=== PATIENT | female | born 1940 | race Caucasian/White ===

== ENCOUNTER 2023-05-23 08:48 | Outpatient (OUT) | payer MEDICARE, SELFPAY ==
[2023-05-23 09:20] LABS: Basophils Percent Auto 0.8 % (0.2-2.0); Eosinophils Absolute Auto 0.1 10^3/uL (0.0-0.7); Eosinophils Percent Auto 2.2 % (0.9-7.0); Hemoglobin 11.7 g/dL (12.0-16.0); Immature Granulocytes Abs Auto 0.02 10^3/uL (0.00-0.03); Immature Granulocytes Pct Auto 0.4 % (0.0-0.5); Lymphocytes Absolute Auto 1.6 10^3/uL (1.2-3.8); Lymphocytes Percent Auto 32.1 % (20.5-60.0); Mean Corpuscular HGB Conc 32.5 g/dL (29.9-35.2); Mean Corpuscular Hemoglobin 29.3 pg (26.7-34.0); Mean Corpuscular Volume 90.2 fL (81.0-99.0); Mean Platelet Volume 7.8 fL (9.5-13.5); Monocytes Absolute Auto 0.5 10^3/uL (0.3-0.8); Monocytes Percent Auto 9.8 % (1.7-12.0); Neutrophils Absolute Auto 2.8 10^3/uL (1.4-6.5); Neutrophils Percent Auto 54.7 % (43.0-75.0); Platelet Count 177 10^3/uL (150-450); Red Blood Count 3.99 10^6/uL (4.20-5.40)
[2023-05-23 09:43] LABS: Estimated Average Glucose 120 mg/dL; Glycohemoglobin A1C 5.8 % (4.5-6.2)
[2023-05-23 10:12] LABS: Alanine Aminotransferase 35 U/L (14-59); Albumin Globulin Ratio 1.1; Albumin Level 3.6 g/dL (3.4-5.0); Alkaline Phosphatase 91 U/L (46-116); Anion Gap 11.8; Aspartate Amino Transferase 25 U/L (15-37); BUN Creatinine Ratio 21.5; Bilirubin Total 0.8 mg/dL (0.2-1.0); Calcium 9.5 mg/dL (8.5-10.1); Carbon Dioxide 27.8 mmol/L (21.0-32.0); Chloride 106 mmol/L (98-107); Chol HDL Ratio 4.1; Cholesterol 202 mg/dL (<=200); Estimated GFR (African America >60 (>=60); Estimated GFR (Non-African Ame 57 (>=60); Free T3 2.74 pg/mL (2.18-3.98); Globulin 3.2 g/dL; Glucose 111 mg/dL (74-106); HDL Cholesterol 49 mg/dL (40-60); Potassium 4.6 mmol/L (3.5-5.1); Sodium 141 mmol/L (136-145); Total Protein 6.8 g/dL (6.4-8.2); Triglycerides 148 mg/dL (<=150); VLDL CHOLESTEROL 29.6 mg/dL
[2023-05-23 13:05] LABS: Free T4 1.06 ng/dL (0.76-1.46)
== END 2023-05-23 08:49 | disposition home or self-care (01) ==
LOC: LAB 08:48
PROVIDERS: PCP Family Medicine; Visit Provider Family Medicine
DX: Z00.00 Encounter for general adult medical examination without abnormal findings (principal); E78.00 Pure hypercholesterolemia, unspecified; R53.83 Other fatigue; Z79.899 Other long term (current) drug therapy
CPT/HCPCS: 36415; 80053; 80061; 83036; 84439; 84443; 84481; 85025

== ENCOUNTER 2023-06-14 10:48 | Outpatient (OUT) | payer MEDICARE, SELFPAY ==
--- NOTE | 2023-06-14 11:31 | P.CN_ITS ---
Consult Note: HPI Data of Consult Patient: known to practice within the last 3 years Requesting Physician: HORTENCIA NOVAK NP Primary Care Provider: Bakari Otto MD Consult Narrative Narrative: Alicia Bullock a pleasant 83 year old female presents for follow up on chronic low back pain. Patient has an extensive history of lumbar injections/ablations and most recent RFAs in 04/26 did not provide substantial pain relief. Patient has been on tramadol 50m qd PRN for pain, baclofen 10mg HS PRN for muscle spasms, and mobic 15mg QD. Patient reporting 04/14 back pain today, as well as arthritis pain in hands. Patient reports moderate pain day to day. cc:: CC: HORTENCIA NOVAK NP Review of Systems ROS Status of ROS 10 or more systems reviewed and unremarkable except as noted in history and below Exam Constitutional Documenting provider has reviewed patient's vital signs: yes Common normals: no apparent distress, average body habitus, oriented x3, healthy appearing, alert and well nourished General appearance: cooperative HENMT Common normals: normocephalic Head and scalp: normocephalic Face and sinus: normal facial exam Mouth: oral and palatal mucosa normal Eye Common normals: PERRL Pupil: PERRL Neck & C-Spine Common normals: full ROM General: normal visual inspection Cervical spine: cervical ROM normal Chest Common normals: inspection of chest normal Respiratory Common normals: normal respiratory effort, no retractions and no use of accessory muscles Back & Pelvis Common normals: thoracic and lumbar spine normal to inspection Thoracic spine/upper back: ROM limited and pain with ROM Lumbar spine/lower back: ROM limited, pain with ROM, paraspinal muscle tenderness and straight leg raise negative bilaterally Pelvis: other (no pain over PSIS or tenderness to palpation) Extremity Common normals: full ROM General: edema (non pitting BLE) Neuro Common normals: oriented x3, CN's II-XII intact bilaterally, moves all extremities, no focal motor deficits, no sensory deficits noted, deep tendon reflexes 2+ bilaterally and gait normal Sensorium/orientation: alert Motor exam: strength 5/5 throughout and no movement abnormalities noted Psych Common normals: mental status grossly normal, thought process normal, cooperative, affect normal, speech normal and activity/motor behavior normal Appearance: grossly normal Speech: normal speech Thought process: normal thought process Thought content: normal thought content Assessment and Plan Assessment and Plan (1) Lumbar spondylosis: (2) FPC (current) use of opiate analgesic: Assessment and Plan: I have refilled the patient's opioid prescriptions.? I feel these medications are improving the patient's quality of life and allow them to tolerate activities of daily living as well as participate in recreational activity.? The patient does not report intolerable side effects. The patient is NOT opioid naive and non-pharmacologic and non-opioid treatment has failed to significantly relieve the patient's pain and improve functionality. The patient has a diagnosis that is related to a somatic or visceral pain etiology. ? ?? I reviewed with the patient the potential risks and side effects with the use of? opioid medications including but not limited to respiratory depression,? sedation, and even . I verified the patient has access to naloxone should? these effects occur. I advised the patient to avoid the use of any other? sedation substances including alcohol, THC, and benzodiazepines while? taking opioid medications due to the risk of compounding side effects and? detrimental outcomes. I reviewed the [employer] QC, pain treatment agreement, urine? drug screen, and opioid start talking forms. The patient was advised to let? their family know they had Naloxone in case they would need to administer? the medication.? ?? A drug screen was completed within the last year, and no aberrancies were noted regarding their use of controlled substances. The patient understands they are subject to the terms and conditions of the pain contract that they have signed. ? ?? I have checked an OARRS report on this patient today and there are no aberrancies noted in the prescribing history.? (3) Muscle spasm: (4) Osteoarthritis: Plan start duloxetine 30mg qd stop restiril continue tramadol 50mg qd prn pain continue baclofen 10mg HS PRN spasms f/u in one month to discuss duloxetine dose/effects
== END 2023-06-14 10:49 | disposition home or self-care (01) ==
LOC: PM 10:48
PROVIDERS: PCP Family Medicine; Visit Provider Nurse Practitioner
DX: M47.816 Spondylosis without myelopathy or radiculopathy, lumbar region (principal); Z79.891 Long term (current) use of opiate analgesic
CPT/HCPCS: G0463

== ENCOUNTER 2023-07-12 10:07 | Outpatient (OUT) | payer MEDICARE, SELFPAY ==
--- NOTE | 2023-07-12 10:33 | PM.CN ---
Consult Note: HPI Data of Consult Patient: known to practice within the last 3 years Requesting Physician: Ivanna Louise NP Primary Care Provider: Bakari Otto MD Consult Narrative Reason for consult: f/u Narrative: Alicia Bullock a pleasant 83 year old female presents for evaluation and management of chronic OA and middle to low back pain with spasms. Patient has had RFAs before without relief. Today rating pain 6/10. Patient started duloxetine 30mg and stopped taking after four days due to fatigue and fogginess. cc:: CC: Ivanna Louise NP Review of Systems ROS Status of ROS 10 or more systems reviewed and unremarkable except as noted in history and below Musculoskeletal Reports: back pain Meds Home Medications and Allergies Home Medications Medication Instructions Recorded Confirmed Type alendronate 70 mg tablet (Fosamax) 70 mg PO QWEEK 06/14/23 06/14/23 History amlodipine 10 mg tablet 10 mg PO DAILY 06/14/23 06/14/23 History aspirin 81 mg capsule 81 mg PO DAILY 06/14/23 06/14/23 History baclofen 10 mg tablet 10 mg PO .QHS 06/14/23 06/14/23 History calcium 167 mg-vitamin D3 1.67 cap PO .QD 06/14/23 History mcg-magnesium 83 mg capsule duloxetine 30 mg capsule,delayed 30 mg PO DAILY 06/14/23 06/14/23 History release (Cymbalta) glucosamine ER 500 mg-chondroitin 1 tab PO DAILY 06/14/23 06/14/23 History 200 mg tablet,extended release levothyroxine 50 mcg tablet 50 mcg PO DAILY 06/14/23 06/14/23 History (Euthyrox) lisinopril 20 mg tablet 20 mg PO DAILY 06/14/23 06/14/23 History metoprolol tartrate 50 mg tablet 50 mg PO DAILY 06/14/23 06/14/23 History (Lopressor) omeprazole 20 mg tablet,delayed 20 mg PO BID 06/14/23 06/14/23 History release tramadol 50 mg tablet 50 mg PO DAILY PRN pain 06/14/23 06/14/23 History Exam Constitutional Documenting provider has reviewed patient's vital signs: yes Common normals: no apparent distress, oriented x3, healthy appearing, alert and well nourished General appearance: cooperative HENMT Common normals: normocephalic, hearing grossly normal bilaterally and moist oral mucous membranes Head and scalp: normocephalic Face and sinus: normal facial exam Mouth: oral and palatal mucosa normal Eye Common normals: PERRL Pupil: PERRL Neck & C-Spine Common normals: full ROM General: normal visual inspection Cervical spine: cervical ROM normal Chest Common normals: inspection of chest normal Respiratory Common normals: normal respiratory effort, no retractions and no use of accessory muscles Back & Pelvis Common normals: thoracic and lumbar spine normal to inspection Thoracic spine/upper back: ROM limited and pain with ROM Lumbar spine/lower back: ROM limited, pain with ROM, paraspinal muscle tenderness and straight leg raise negative bilaterally Pelvis: other (no pain over PSIS or tenderness to palpation) Extremity Common normals: normal to inspection and full ROM General: edema (non pitting BLE) Neuro Common normals: oriented x3, CN's II-XII intact bilaterally, moves all extremities, no focal motor deficits, no sensory deficits noted, deep tendon reflexes 2+ bilaterally and gait normal Sensorium/orientation: alert Motor exam: strength 5/5 throughout and no movement abnormalities noted Psych Common normals: mental status grossly normal, thought process normal, cooperative, affect normal, speech normal and activity/motor behavior normal Appearance: grossly normal Speech: normal speech Thought process: normal thought process Thought content: normal thought content Results Additional Findings Additional findings: I have checked an OARRS report on this patient today and there are no aberrancies noted in the prescribing history.?? A drug screen was completed and reviewed within the last year, and if there has not been a drug screen completed we ordered one today to monitor higher risk, state monitored pain medication use. As part of providing excellent, safe, comprehensive care, the following was completed at our patient's visit: 1. A medication reconciliation and review to ensure accurate knowledge of current/active medications, including asking our patients to inform us about any [id number] medications or herbal remedies/nutritional supplements/alternative remedies. 2. A review to specifically ensure our patients have had annual screening for: elevated body mass index (BMI), tobacco use, screening for depression, and screening for unhealthy alcohol use. When screening is concerning, patients are provided with education and the specific recommendation to discuss the concerning health issue and treatment options with their primary care provider. 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 I feel these medications are improving the patient's quality of life and allow them to tolerate activities of daily living as well as participate in recreational activity.? The patient does not report intolerable side effects. The patient is NOT opioid naive and non-pharmacologic and non-opioid treatment has failed to significantly relieve the patient's pain and improve functionality. The patient has a diagnosis that is related to a somatic or visceral pain etiology. ? ?? I reviewed with the patient the potential risks and side effects with the use of? opioid medications including but not limited to respiratory depression,? sedation, and even . I verified the patient has access to naloxone should? these effects occur. I advised the patient to avoid the use of any other? sedation substances including alcohol, THC, and benzodiazepines while? taking opioid medications due to the risk of compounding side effects and? detrimental outcomes. I reviewed the [employer], pain treatment agreement, urine? drug screen, and opioid start talking forms. The patient was advised to let? their family know they had Naloxone in case they would need to administer? the medication.? ?? A drug screen was completed within the last year, and no aberrancies were noted regarding their use of controlled substances. The patient understands they are subject to the terms and conditions of the pain contract that they have signed. ? ?? I have checked an OARRS report on this patient today and there are no aberrancies noted in the prescribing history.? (4) Muscle spasm: Plan restart duloxetine 30mg HS, patient was taking in AM for four days and quit restart mobic 15mg qday, was previously taking and tolerating well, can take PRN when pain is better controlled continue tramadol 50mg qd prn moderate-severe pain continue baclofen 10mg HS PRN spasms f/u in one month to discuss duloxetine dose/effects
== END 2023-07-12 10:08 | disposition home or self-care (01) ==
LOC: PM 10:07
PROVIDERS: PCP Family Medicine; Visit Provider Nurse Practitioner
DX: M47.816 Spondylosis without myelopathy or radiculopathy, lumbar region (principal); M19.90 Unspecified osteoarthritis, unspecified site; Z79.891 Long term (current) use of opiate analgesic
CPT/HCPCS: G0463

== ENCOUNTER 2023-07-20 09:06 | Outpatient (OUT) | payer MEDICARE, SELFPAY ==
[2023-07-20 09:22] LABS: Bilirubin Urine NEGATIVE (NEGATIVE); Blood Urine NEGATIVE (NEGATIVE); Clarity Urine CLEAR (CLEAR); Color Urine LT. YELLOW (YELLOW); Glucose Urine UA NEGATIVE (NEGATIVE); Ketones Urine NEGATIVE (NEGATIVE); Leukocyte Esterase Urine SMALL (NEGATIVE); Nitrite Urine NEGATIVE (NEGATIVE); Protein Urine NEGATIVE (NEG/TRACE); Urobilinogen Urine 0.2 EU/dL (0.2-1.0)
[2023-07-20 12:00] LABS: Bacteria Urine NONE SEEN #/HPF (NONE SEEN); Mucus Urine NONE SEEN (NONE SEEN); RBC Urine NONE SEEN #/HPF (0-2)
[2023-07-20 12:01] LABS: Cast Seen? NONE SEEN #/LPF (NONE SEEN); Crystals Seen? None Seen #/HPF (None Seen); Squamous Epithelial Cell Urine RARE #/LPF (NONE/RARE); Urine Culture Indicated YES
== END 2023-07-20 09:07 | disposition home or self-care (01) ==
LOC: LAB 09:06
PROVIDERS: PCP Family Medicine; Visit Provider Family Medicine
DX: N39.0 Urinary tract infection, site not specified (principal)
CPT/HCPCS: 81001; 87086

== ENCOUNTER 2023-08-23 12:42 | Outpatient (OUT) | payer MEDICARE, SELFPAY ==
--- NOTE | 2023-08-23 12:46 | P.CN_ITS ---
Consult Note: HPI Data of Consult Patient: known to practice within the last 3 years Requesting Physician: Ivanna Louise NP Primary Care Provider: Bakari Otto MD Consult Narrative Reason for consult: f/u Narrative: Alicia Bullock a pleasant 83 year old female presents for evaluation and management of chronic pain. Patient rating pain 0/10 since last appointment, has noticed very mild pain 1-2 since restarting duloxetine 30mg HS. She has not needed mobic, baclofen, or tramdol. cc:: CC: Ivanna Louise NP Review of Systems ROS Status of ROS 10 or more systems reviewed and unremarkable except as noted in history and below Meds Home Medications and Allergies Home Medications Medication Instructions Recorded Confirmed Type alendronate 70 mg tablet (Fosamax) 70 mg PO QWEEK 06/14/23 06/14/23 History amlodipine 10 mg tablet 10 mg PO DAILY 06/14/23 06/14/23 History aspirin 81 mg capsule 81 mg PO DAILY 06/14/23 06/14/23 History baclofen 10 mg tablet 10 mg PO .QHS 06/14/23 06/14/23 History calcium 167 mg-vitamin D3 1.67 cap PO .QD 06/14/23 History mcg-magnesium 83 mg capsule duloxetine 30 mg capsule,delayed 30 mg PO DAILY 06/14/23 06/14/23 History release (Cymbalta) glucosamine ER 500 mg-chondroitin 1 tab PO DAILY 06/14/23 06/14/23 History 200 mg tablet,extended release levothyroxine 50 mcg tablet 50 mcg PO DAILY 06/14/23 06/14/23 History (Euthyrox) lisinopril 20 mg tablet 20 mg PO DAILY 06/14/23 06/14/23 History metoprolol tartrate 50 mg tablet 50 mg PO DAILY 06/14/23 06/14/23 History (Lopressor) omeprazole 20 mg tablet,delayed 20 mg PO BID 06/14/23 06/14/23 History release tramadol 50 mg tablet 50 mg PO DAILY PRN pain 06/14/23 06/14/23 History Exam Constitutional Documenting provider has reviewed patient's vital signs: yes Common normals: no apparent distress, oriented x3, healthy appearing, alert and well nourished General appearance: cooperative HENMT Common normals: normocephalic, hearing grossly normal bilaterally and moist oral mucous membranes Head and scalp: normocephalic Face and sinus: normal facial exam Mouth: oral and palatal mucosa normal Eye Common normals: PERRL Pupil: PERRL Neck & C-Spine Common normals: full ROM General: normal visual inspection Cervical spine: cervical ROM normal Chest Common normals: inspection of chest normal Respiratory Common normals: normal respiratory effort, no retractions and no use of accessory muscles Back & Pelvis Common normals: thoracic and lumbar spine normal to inspection Thoracic spine/upper back: ROM limited Lumbar spine/lower back: ROM limited, paraspinal muscle tenderness and straight leg raise negative bilaterally Pelvis: other (no pain over PSIS or tenderness to palpation) Extremity Common normals: normal to inspection and full ROM General: edema (non pitting BLE) Neuro Common normals: oriented x3, CN's II-XII intact bilaterally, moves all extremities, no focal motor deficits, no sensory deficits noted and deep tendon reflexes 2+ bilaterally Sensorium/orientation: alert Motor exam: strength 5/5 throughout and no movement abnormalities noted Psych Common normals: mental status grossly normal, thought process normal, cooperative, affect normal, speech normal and activity/motor behavior normal Appearance: grossly normal Speech: normal speech Thought process: normal thought process Thought content: normal thought content Results Additional Findings Additional findings: I have checked an OARRS report on this patient today and there are no aberrancies noted in the prescribing history.?? A drug screen was completed and reviewed within the last year, and if there has not been a drug screen completed we ordered one today to monitor higher risk, state monitored pain medication use. As part of providing excellent, safe, comprehensive care, the following was completed at our patient's visit: 1. A medication reconciliation and review to ensure accurate knowledge of current/active medications, including asking our patients to inform us about any [id number] medications or herbal remedies/nutritional supplements/alternative remedies. 2. A review to specifically ensure our patients have had annual screening for: elevated body mass index (BMI), tobacco use, screening for depression, and scr eening for unhealthy alcohol use. When screening is concerning, patients are provided with education and the specific recommendation to discuss the concerning health issue and treatment options with their primary care provider. 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
== END 2023-08-23 12:43 | disposition home or self-care (01) ==
LOC: PM 12:42
PROVIDERS: PCP Family Medicine; Visit Provider Nurse Practitioner
DX: M47.896 Other spondylosis, lumbar region (principal); Z79.891 Long term (current) use of opiate analgesic; M19.90 Unspecified osteoarthritis, unspecified site; R25.2 Cramp and spasm
CPT/HCPCS: G0463

== ENCOUNTER 2023-09-29 08:52 | Outpatient (OUT) | payer MEDICARE, SELFPAY ==
--- NOTE | 2023-09-29 | XR_ITS ---
The [address] [address] Patient Name: CLAIRE NGUYỄN MRN: [id number] date: 1940 Sex: F Assigned Patient Location: [facility] Current Patient Location: Accession/Order Number: [id number] Exam Date: 09/29/2023 09:00 Report Date: 10/01/2023 08:58 At the request of: SANTIAGO WARREN Procedure: XR knee RT 3V PROCEDURE: XR knee RT 3V HISTORY: Bursitis M71.9 ; acute right knee pain; no known injury COMPARISON: None. FINDINGS: BONES:Marked narrowing of the anterior joint space with suspected bone remodeling of the patella. Mild narrowing of the lateral joint space. Tricompartmental small periarticular degenerative osteophytes. SOFT TISSUES:Calcifications superior lateral and superior medial to the patella, heterotopic bone formation versus loose bodies. EFFUSION:None visible. OTHER: Negative. XR/XR knee RT 3V IMPRESSION: 1. Marked degenerative joint disease. 2. No acute bone abnormality. Electronically authenticated by: RIGO WHITTAKER Date: 10/01/2023 08:58
== END 2023-09-29 08:53 | disposition home or self-care (01) ==
PROVIDERS: PCP Family Medicine; Visit Provider Family Medicine
DX: M71.9 Bursopathy, unspecified (principal); M17.11 Unilateral primary osteoarthritis, right knee
CPT/HCPCS: 73562

== ENCOUNTER 2023-10-08 09:19 | Outpatient (OUT) | payer MEDICARE, SELFPAY ==
--- NOTE | 2023-10-08 09:23 | MR_ITS ---
[address] [address] Patient Name: CLAIRE NGUYỄN MRN: [id number] date: 1940 Sex: F Assigned Patient Location: MRI Current Patient Location: MRI Accession/Order Number: [id number] Exam Date: 10/08/2023 09:53 Report Date: 10/08/2023 12:03 At the request of: JAMAL CHRISTIAN Procedure: MR knee RT wo con EXAMINATION: MR knee RT wo con HISTORY: Internal Derangement Of Knee M23.91 COMPARISON: XR knee right 09/29/2023 TECHNIQUE: A complete multi-planar MRI was performed. FINDINGS: MEDIAL COMPARTMENT MEDIAL MENISCUS: Intrasubstance degeneration, and possible vertical tear within body and posterior junction seen on the coronal view. CARTILAGE: Mild cartilage thinning. BONES: Small periarticular degenerative osteophytes. No fracture or subchondral cysts. MCL AND MEDIAL CAPSULE: Grade I sprain of the medial collateral ligament. LATERAL COMPARTMENT LATERAL MENISCUS: Undersurface tear involving posterior horn, and suspected horizontal tear within body and posterior junction. CARTILAGE: Moderate thinning; no appreciable defect. BONES: Periarticular degenerative osteophytes. No fracture or subchondral cysts. LCL/POSTEROLAT COMPLEX: Normal lateral collateral ligament, fascicles, lateral capsule and ligaments. ANTERIOR COMPARTMENT PATELLA: Periarticular degenerative osteitis. No fracture or subchondral edema. CARTILAGE: Moderate or greater thinning. No appreciable focal defect or subchondral cyst. TENDONS: Normal. EFFUSION: Moderate joint effusion with a 17 x 14 x 10 mm slightly oval-shaped mass within posterior lateral aspect of the joint capsule cephalad to the lateral femoral condyle which remains low in signal on T1 and T2 sequences. ACL: Normal appearing ligament. PCL: Normal appearing ligament. MENISCOFEMORAL: Normal meniscofemoral ligaments. OTHER: Negative. MR/MR knee RT wo con IMPRESSION: 1. Evaluation is limited by significant patient motion artifact. 2. Medial meniscus intrasubstance degeneration and suspected small vertical tear within the body and posterior junction. 2. Lateral meniscus undersurface tear involving posterior horn and suspected horizontal tear within body and posterior junction. 3. Mild articular cartilage thinning throughout, with moderate or greater thinning involving the anterior compartment. 4. Mild strain of the medial collateral ligament. 5. Large loose body within the superior-lateral aspect of the joint capsule without appreciable donor site. Electronically authenticated by: RIGO WHITTAKER Date: 10/08/2023 12:03
== END 2023-10-08 09:20 | disposition home or self-care (01) ==
LOC: MRI 09:19
PROVIDERS: PCP Family Medicine; Visit Provider Personal Emergency Response Attendant
DX: M23.91 Unspecified internal derangement of right knee (principal); S83.241A Other tear of medial meniscus, current injury, right knee, initial encounter; S83.281A Other tear of lateral meniscus, current injury, right knee, initial encounter
CPT/HCPCS: 73721

== ENCOUNTER 2023-10-09 11:02 | Outpatient (OUT) | payer MEDICARE, SELFPAY ==
[2023-10-09 11:29] LABS: Basophils Percent Auto 0.2 % (0.2-2.0); Eosinophils Percent Auto 0.1 % (0.9-7.0); Hematocrit 34.1 % (36.0-48.0); Hemoglobin 11.1 g/dL (12.0-16.0); Immature Granulocytes Pct Auto 1.5 % (0.0-0.5); Lymphocytes Absolute Auto 1.1 10^3/uL (1.2-3.8); Lymphocytes Percent Auto 8.2 % (20.5-60.0); Mean Corpuscular HGB Conc 32.6 g/dL (29.9-35.2); Mean Corpuscular Hemoglobin 29.6 pg (26.7-34.0); Mean Corpuscular Volume 90.9 fL (81.0-99.0); Monocytes Absolute Auto 1.1 10^3/uL (0.3-0.8); Monocytes Percent Auto 7.9 % (1.7-12.0); Neutrophils Absolute Auto 10.9 10^3/uL (1.4-6.5); Neutrophils Percent Auto 82.1 % (43.0-75.0); Platelet Count 406 10^3/uL (150-450); Red Blood Count 3.75 10^6/uL (4.20-5.40); Red Cell Distribution Width 14.7 % (11.0-15.0); White Blood Count 13.3 10^3/uL (4.0-11.0)
[2023-10-09 11:52] LABS: Erythrocyte Sedimentation Rate 62 mm/hr (<=30)
[2023-10-09 12:09] LABS: C Reactive Protein 5.13 mg/dL (<=0.30)
== END 2023-10-09 11:03 | disposition home or self-care (01) ==
LOC: LAB 11:07
PROVIDERS: PCP Family Medicine; Visit Provider Personal Emergency Response Attendant
DX: M25.561 Pain in right knee (principal)
CPT/HCPCS: 36415; 85025; 85652; 86140

== ENCOUNTER 2023-11-07 18:51 | Outpatient (REF) | payer MEDICARE, SELFPAY ==
[2023-11-07 19:01] LABS: Erythrocyte Sedimentation Rate 40 mm/hr (<=30)
== END 2023-11-07 18:52 | disposition home or self-care (01) ==
LOC: LAB 18:51
PROVIDERS: PCP Family Medicine; Visit Provider Family Medicine
DX: M00.861 Arthritis due to other bacteria, right knee (principal); B95.4 Other streptococcus as the cause of diseases classified elsewhere; B96.89 Other specified bacterial agents as the cause of diseases classified elsewhere; Z16.35 Resistance to multiple antimicrobial drugs; Z47.89 Encounter for other orthopedic aftercare; R78.81 Bacteremia; M25.421 Effusion, right elbow; M25.521 Pain in right elbow
CPT/HCPCS: 36415; 85652; 87040

== ENCOUNTER 2023-11-18 17:31 | Emergency (ER) | payer MEDICARE, SELFPAY ==
[2023-11-18] VITALS (17 sets, daily range): BP systolic 115–153; BP diastolic 61–86; PULSE 87–112; RESP 13–28; TEMP 36.8; O2SAT 90–98; BMI 21.8
--- OUTSIDE RECORDS SUMMARY | 2023-11-18 17:39 | XMS_ITS | CCD ---
Author Name Unknown Address [address] [facility] [address] [place] [address] Organization [facility] Care Team Providers Care Bakery Supervisor Name Role Phone Santiago Otto Primary Care Physician Arie BERGERON Attending Unavailable Santiago Oconnor Referring UnavailArie Duarte Attending Unavailable Arie BERGERON Attending Unavailable Arie BERGERON Attending Unavailable Rachana Kent Unavailable MD Santiago Otto Primary Care Provider [phone] MD Santiago Otto Attending Provider Santiago Otto Attending Unavailable Santiago Otto Primary Care Unavailable Santiago Otto Admitting Unavailable LUIZAY ., DR HENDERSON Primary Care Unavailable HOY ., DR HENDERSON Attending Unavailable HOY ., DR HENDERSON Admitting Unavailable HOY ., DR HENDERSON Consulting Unavailable LEMHI, DR SHERYL Navarrete Consulting Unavailable ARROYO ., STARR Consulting Unavailable GARCIA ., DR IVANIA Ledezma Attending Unavailable HOY ., DR HENDERSON Primary Care Unavailable GARCIA ., DR IVANIA Ledezma Admitting Unavailable ARROYO ., STARR Consulting Unavailable GARCIA ., DR IVANIA Ledezma Admitting Unavailable GARCIA ., DR IVANIA Ledezma Attending Unavailable HOY ., DR HENDERSON Primary Care Unavailable HOY ., DR HENDERSON Consulting Unavailable HOY ., DR HENDERSON Admalina Unavailable HOY ., DR HENDERSON Attending Unavailable HOY ., DR HENDERSON Primary Care Unavailable LEMHI, DR SHERYL Navarrete Consulting Unavailable HOY ., DR HENDERSON Primary Care Unavailable HOY ., DR HENDERSON Attending Unavailable HOY ., DR HENDERSON Admitting Unavailable HOY ., DR HENDERSON Consulting Unavailable HALKER .HORTENCIA Admitting Unavailable HALKER .HORTENCIA Attending Unavailable HOY ., DR HENDERSON Primary Care Unavailable HALKER ., HORTENCIA Consulting Unavailable HALKER ., HORTENCIA Attending Unavailable HOY ., DR HENDERSON Primary Care Unavailable HALKER ., HORTENCIA Admitting Unavailable HOY ., DR HENDERSON Primary Care Unavailable SANTOSFARIDA TOURE Attending Unavailable SANTOSFARIDA TOURE Admitting Unavailable NILL ., DR SARGENT Admitting Unavailable NILL ., DR SARGENT Attending Unavailable HOY ., DR HENDERSON Primary Care Unavailable HOY ., DR HENDERSON Primary Care Unavailable HOY ., DR HENDERSON Admitting Unavailable HOY ., DR HENDERSON Attending Unavailable HOY ., DR HENDERSON Consulting Unavailable HOY ., DR HENDERSON Consulting Unavailable HOY ., DR HENDERSON Primary Care Unavailable HOY ., DR HENDERSON Attending Unavailable HOY ., DR HENDERSON Admitting Unavailable NEFCYBRAD Consulting Unavailable HOY ., DR HENDERSON Primary Care Unavailable HOY ., DR HENDERSON Admitting Unavailable HOY ., DR HENDERSON Attending Unavailable HOY ., DR HENDERSON Consulting Unavailable CHUCK TATUM Consulting Unavailable HOY ., DR HENDERSON Primary Care Unavailable HOY ., DR HENDERSON Attending Unavailable HOY ., DR HENDERSON Consulting Unavailable HOY ., DR HENDERSON Admitting Unavailable NILL ., DR SARGENT Attending Unavailable NILL ., DR SARGENT Consulting Unavailable HOY ., DR HENDERSON Primary Care Unavailable NILL ., DR SARGENT Admitting Unavailable HOY ., DR HENDERSON Primary Care Unavailable HOY ., DR HENDERSON Attending Unavailable HOY ., DR HENDERSON Consulting Unavailable HOY ., DR HENDERSON Admalina Unavailable HOY ., DR HENDERSON Primary Care Unavailable HOY ., DR HENDERSON Consulting Unavailable HOY ., DR HENDERSON Admalina Unavailable HOY ., DR HENDERSON Attending Unavailable ZIEBER, DR RIGO Love Consulting Unavailable HIGHLANDER, PETER D Admitting Unavailable HIGHLANDER, PETER Krystal Attending Unavailable HOY ., DR HENDERSON Primary Care Unavailable HIGHLANDER, PETER D Consulting Unavailable HOY ., DR HENDERSON Consulting Unavailable HOY ., DR HENDERSON Primary Care Unavailable HOY ., DR SANTIAGO Augustine Unavailable HOY ., DR HENDERSON Attending Unavailable ZIEBER, DR RIGO Love Consulting Unavailable BLADES, RACHANA Admitting Unavailable BLADES, RACHANA Attending Unavailable LEMHI, DR SHERYL Navarrete Consulting Unavailable HOY ., DR HENDERSON Primary Care Unavailable ZIEBER, DR RIGO Love Consulting Unavailable BLADES, RACHANA Consulting Unavailable GARCIA ., DR IVNAIA Ledezma Admitting Unavailable GARCIA ., DR IVANIA Ledezma Attending Unavailable GARCIA ., DR IVANIA Ledezma Consulting Unavailable HOY ., DR HENDERSON Primary Care Unavailable RAUL RICHARD Consulting Unavailable GARCIA, DR PARISI Consulting Unavailable ARROYO ., STARR Consulting Unavailable GARCIA ., DR IVANIA Ledezma Admitting Unavailable GARCIA ., DR IVANIA Ledezma Attending Unavailable HOY ., DR HENDERSON Primary Care Unavailable NILL ., DR SARGENT Admitting Unavailable NILL ., DR SARGENT Attending Unavailable NILL ., DR SARGENT Consulting Unavailable HOY ., DR HENDERSON Primary Care Unavailable LEONARDO ANNE Consulting Unavailable JOSELIN ABREU Consulting Unavailable JEFFERSON BROWN Admitting Unavailable HOY ., DR HENDERSON Primary Care Unavailable ELICEO, DR SY Love Consulting Unavailable JEFFERSON BROWN Attending Unavailable GARCIA ., DR IVANIA Ledezma Admitting Unavailable GARCIA ., DR IVANIA Ledezma Attending Unavailable HOY ., DR HENDERSON Primary Care Unavailable NILL ., DR SARGENT Attending Unavailable NILL ., DR SARGENT Admitting Unavailable HOY ., DR HENDERSON Primary Care Unavailable PRADIP LOPEZ Consulting Unavailable XAVIER ., MATTHEW BECKER Admitting Unavailable HOY ., DR HENDERSON Primary Care Unavailable XAVIER ., MATTHEW BECKER Attending Unavailable HOY ., DR HENDERSON Primary Care Unavailable HOY ., DR HENDERSON Attending Unavailable HOY ., DR HENDERSON Consulting Unavailable HOY ., DR HENDERSON Admitting Unavailable ARROYO ., STARR Admitting Unavailable ARROYO ., STARR Attending Unavailable HOY ., DR HENDERSON Primary Care Unavailable ARROYO ., STARR Consulting Unavailable Brando Garcia Admitting Unavailable Brando Garcia Attending Unavailable KELVIN, SANTIAGO Primary Care Unavailable Sheryl Dennis Consulting Unavailable JAMAL VIZCARRA Attending Unavailable JAMAL VIZCARRA Attending Unavailable JAMAL VIZCARRA Referring Unavailable JR. AGUILAR GEORGE C Attending Unavailyessica ble JAMAL VIZCARRA Attending Unavailable Allergies Allergy Classification Reported Allergen(s) Allergy Type Date of Onset Reaction(s) Facility (1 source) No Known Medication Allergies; Translations: [No Known Medication Allergies] Propensity to adverse reactions (disorder) [facility] Medications Current Medications Medication Drug Class(es) Dates Sig (Normalized) Sig (Original) alendronic acid 70 mg oral tablet (2 sources) Bisphosphonate Start: 06-08-2022 take 1 tablet by mouth every week Fosamax 70 mg oral tablet 70 mg = 1 tab(s), Oral, qWeek, Refills(s) 0 Start Date: 06/08/22 Status: Ordered amLODIPine 5 mg oral tablet (2 sources) Dihydropyridine Calcium Channel Betsy Start: 06-08-2022 take 2 tablets by mouth once daily amLODIPine 5 mg Tab 10 mg = 2 tab(s), Oral, Daily, Refills(s) 0 Start Date: 06/08/22 Status: Ordered amLODIPine Besyl ate 5 MG Oral for 90 Days Active aspirin 81 mg delayed release oral tablet (1 source) Platelet Aggregation Inhibitor, Nonsteroidal Anti-inflammatory Drug Start: 06-08-2022 take 1 tablet by mouth once daily aspirin 81 mg Oral EC Tab 81 mg = 1 tab(s), Oral, Daily, Refills(s) 0 Start Date: 06/08/22 Status: Ordered calcium carbonate 1500 mg oral tablet (1 source) Start: 06-08-2022 calcium (as carbonate) 600 mg oral tablet 1,200 mg = 2 tab(s), Oral, Daily, Refills(s) 0 Start Date: 06/08/22 Status: Ordered cetirizine hydrochloride 10 mg oral tablet (1 source) Histamine-1 Receptor Antagonist take 1 tablet by mouth once daily ZyrTEC 10 MG 1 tablet Orally Once a day Active Osteo Bi-Flex (1 source) Start: 06-08-2022 take 1 tablet by mouth once daily Osteo Bi-Flex 1 tab(s), Oral, Daily, Refill(s) 0 Start Date: 06/08/22 Status: Ordered cyclobenzaprine hydrochloride 10 mg oral tablet (1 source) Muscle Relaxant Start: 06-08-2022 take 1 tablet by mouth three times daily as needed for muscle spasms cyclobenzaprine 10 mg Tab 10 mg = 1 tab(s), Oral, TID, PRN for spasm, Refills(s) 0 Start Date: 06/08/22 Status: Ordered diazePAM 10 mg oral tablet (1 source) Benzodiazepine diazePAM 10 MG T JAJA 1 TABLET BY MOUTH SINGLE DOSE TAKE 60 MINUTES PRIOR TO PROCEDURE Oral for 1 Days Active diclofenac sodium 75 mg delayed release oral tablet (1 source) Nonsteroidal Anti-inflammatory Drug Start: 06-08-2022 take 1 tablet by mouth twice daily Diclofenac 75mg Tab-DR = 1 tab(s), Oral, BID, Refills(s) 0 Start Date: 06/08/22 Status: Ordered ferrous sulfate (1 source) take 1 tablet by mouth twice daily Ferrous Sulfate 325 (65 Fe) MG TAKE 1 TABLET BY MOUTH TWICE A DAY Oral for 30 Days Active levothyroxine sodium 0.05 mg oral tablet (2 sources) l-Thyroxine Start: 06-08-2022 take 1 tablet by mouth once daily levothyroxine 50 mcg (0.05 mg) Tab 50 mcg = 1 tab(s), Oral, Daily, Refills(s) 0 Start Date: 06/08/22 Status: Ordered liothyronine sodium 0.005 mg oral tablet (2 sources) l-Triiodothyronine Start: 06-08-2022 take 1 tablet by mouth once daily liothyronine 5 mcg Tab 5 mcg = 1 tab(s), Oral, Daily, Refills(s) 0 Start Date: 06/08/22 Status: Ordered lisinopril 20 mg oral tablet (2 sources) Angiotensin Converting Enzyme Inhibitor Start: 06-08-2022 take 2 tablets by mouth once daily lisinopril 20 mg Tab 40 mg = 2 tab(s), Oral, Daily, Refills(s) 0 Start Date: 06/08/22 Status: Ordered take 1 tablet by robert every twenty-four hours Lisinopril 20 MG 1 tablet Orally Once a day Active menthol 0.05 mg/mg medicated patch (1 source) apply 1 dose transdermal route three times daily as needed Icy Hot 5 % 1 patch as needed Externally Three times a day for 7 days Active Metoprolol (2 sources) beta-Adrenergic Betsy Start: Metoprolol tartrate 50 mg Tab as directed, Refills(s) 0 Start Date: 06/08/22 Status: Ordered Metoprolol Tartr ate 50 MG Oral for 90 Days Active nitroglycerin 0.4 mg sublingual tablet (1 source) Nitrate Vasodilator Start: 06-08-2022 nitroglycerin 0.4 mg sublingual Tab 0.4 mg = 1 tab(s), SubLingual, q5min, PRN for chest pain, Refills(s) 0 Start Date: 06/08/22 Status: Ordered omeprazole 20 mg delayed release oral capsule (2 sources) Proton Pump Inhibitor Start: 06-08-2022 take 1 capsule by mouth twice daily omeprazole 20 mg Cap-DR 20 mg = 1 cap(s), Oral, BID, Refills(s) 0 Start Date: 06/08/22 Status: Ordered petrolatum 0.41 mg/mg topical ointment (1 source) Aquaphor - as directed Externally 2x daily for 7 days Active potassium chloride 20 meq extended release oral tablet (1 source) Potassium Chlori de ER 20 MEQ Oral for 30 Days Active temazepam 15 mg oral capsule (2 sources) Benzodiazepine Start: 06-08-2022 take 1 capsule by mouth once daily at bedtime temazepam 15 mg Cap 15 mg = 1 cap(s), Oral, Once a day (at bedtime), Refills(s) 0 Start Date: 06/08/22 Status: Ordered Vitamin E 45 MG/0.25ML (1 source) Start: 10-09-2022 take 1 mL by mouth once daily Vitamin E 45 MG/0.25ML 1 mL Orally Once a day for 30 day(s) Oct, Active Completed/Discontinued Medications Medication Drug Class(es) Dates Sig (Normalized) Sig (Original) triamcinolone acetonide 1 mg/ml topical cream (1 source) Corticosteroid Start: 06-08-2022 triamcinolone Top 0.1% Crm 1 dano, Topical, BID, Refill(s) 0 Start Date: 06/08/22 Status: Ordered Problems Active Problems Problem Classification Problem Date Documented Da te Episodic/Chronic Cardiac dysrhythmias (1 source) Premature atrial contraction 06-08-2022 Chronic Conduction disorders (1 source) Ventricular bigeminy 06-08-2022 Chronic Deficiency and other anemia (1 source) Iron deficiency anemia 06-13-2022 Episodic Diabetes mellitus without complication (1 source) Type 2 diabetes mellitus without complications; Translations: [TYPE 2 DM WITHOUT COMPLICATIONS] Onset: 04-27-2022 Chronic Digestive congenital anomalies (1 source) Other specified congenital malformations of intestine; Translations: [OTH SPEC CONGEN MALFORM INTESTINE] Onset: 08-24-2022 Chronic Diverticulosis and diverticulitis (1 source) Diverticulosis of large intestine without perforation or abscess without bleeding; Translations: [DVRTCLOS LG INT NO PERF/ABSC W/O BL] Onset: 08-24-2022 Chronic Esophageal disorders (1 source) Gastro-esophageal reflux disease without esophagitis; Translations: [GERD WITHOUT ESOPHAGITIS] Onset: 05-01-2022 Chronic Essential hypertension (2 sources) Hypertensive disorder; Translations: [Essential (primary) hypertension] Onset: 05-01-2022 06-08-2022 Chronic Gastritis and duodenitis (1 source) Unspecified chronic gastritis without bleeding; Translations: [UNS CHRONIC GASTRITIS W/O BLEEDING] Onset: 08-24-2022 Chronic Osteoarthritis (1 source) Unspecified osteoarthritis, unspecified site; Translations: [UNSPECIFIED OSTEOARTHRITIS UNS SITE] Onset: 05-01-2022 Chronic Other acquired deformities (1 source) Scoliosis of lumbar spine 06-08-2022 Chronic Other bone disease and musculoskeletal deformities (1 source) Osteopenia 06-08-2022 Episodic Other circulatory disease (1 source) History of transient ischemic attack 06-08-2022 Episodic Other circulatory disease (1 source) Vascular insufficiency 06-08-2022 Episodic Other gastrointestinal disorders (1 source) Irritable bowel syndrome 06-08-2022 Chronic Other gastrointestinal disorders (1 source) Irritable bowel syndrome without diarrhea; Translations: [IRRITABLE BOWEL SYND W/O DIARRHEA] Onset: 05-01-2022 Chronic Other gastrointestinal disorders (1 source) Dark stools 06-13-2022 Episodic Other gastrointestinal disorders (1 source) History of gastritis 06-08-2022 Episodic Other gastrointestinal disorders (1 source) Occult blood in stools 06-13-2022 Episodic Other nervous system disorders (1 source) Chronic pain; Translations: [Other chronic pain] Chronic Other nervous system disorders (1 source) Other chronic pain; Translations: [OTHER CHRONIC PAIN] Onset: 04-27-2022 Chronic Other nutritional; endocrine; and metabolic disorders (1 source) Overweight in adulthood with body mass index of 25 or more but less than 30 06-13-2022 Episodic Residual codes; unclassified (1 source) Edema 06-08-2022 Episodic Residual codes; unclassified (1 source) Insomnia 06-08-2022 Episodic Spondylosis; intervertebral disc disorders; other back problems (11 sources) Spondylosis without myelopathy or radiculopathy, lumbar region; Translations: [Spondylosis without myelopathy or radiculopathy, thoracic region] Onset: 04-25-2022 Chronic Thyroid disorders (1 source) Hypothyroidism, unspecified; Translations: [HYPOTHYROIDISM UNSPECIFIED] Onset: 08-24-2022 Chronic Unclassified (3 sources) LOW BACK PAIN, UNSPECIFIED; Translations: [LOW BACK PAIN, UNSPECIFIED] Onset: 04-27-2022 Unclassified (1 source) OTHER SPECIFIED DISEASE ESOPHAGUS; Translations: [OTHER SPECIFIED DISEASE ESOPHAGUS] Onset: 08-24-2022 Unclassified (3 sources) CONTACT W/AND (SUSP) EXPOS COVID-19; Translations: [CONTACT W/AND (SUSP) EXPOS COVID-19] Onset: 05-29-2022 Varicose veins of lower extremity (1 source) Varicose veins of lower extremity 06-08-2022 Episodic Viral infection (1 source) COVID-19; Translations: [COVID-19] Onset: 07-05-2022 Past or Other Problems Problem Classification Problem Date Documented Da te Episodic/Chronic Deficiency and other anemia (5 sources) Iron deficiency anemia, unspecified; Translations: [IRON DEFICIENCY ANEMIA UNSPECIFIED] Onset: 08-10-2022 Episodic Gastrointestinal hemorrhage (1 source) Melena; Translations: [MELENA] Onset: 08-24-2022 Episodic Other aftercare (1 source) terminal press operator (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) use of aspirin; Translations: [PHYSICAL INTEGRATION PRACTITIONER CURRENT USE OF ASPIRIN] Onset: 08-24-2022 Episodic Other aftercare (1 source) Other adjunct faculty for medical terminology (current) drug therapy; Translations: [OTH CUSTODIAL CURRENT DRUG THERAPY] Onset: 05-01-2022 Episodic Other bone disease and musculoskeletal deformities (4 sources) Other specified disorders of bone, shoulder; Translations: [OTHER SPEC DISORDERS BONE SHOULDER] Onset: 10-16-2022 Episodic Other circulatory disease (4 sources) Other specified symptoms and signs involving the circulatory and respiratory systems; Translations: [OTH SPEC SX SIGNS INVLV CIRC RS] Onset: 08-22-2022 Episodic Other connective tissue disease (1 source) Pain in right lower leg; Translations: [PAIN IN RIGHT LOWER LEG] Onset: 08-14-2022 Episodic Other connective tissue disease (1 source) Other muscle spasm; Translations: [OTHER MUSCLE SPASM] Onset: 07-31-2022 Episodic Other connective tissue disease (1 source) Pain in left leg; Translations: [PAIN IN LEFT LEG] Onset: 05-29-2022 Episodic Other connective tissue disease (4 sources) Other specified soft tissue disorders; Translations: [OTHER SPEC SOFT TISSUE DISORDERS] Onset: 04-28-2022 Episodic Other gastrointestinal disorders (5 sources) Other fecal abnormalities; Translations: [OTHER FECAL ABNORMALITIES] Onset: 08-02-2022 Episodic Other gastrointestinal disorders (4 sources) Diarrhea, unspecified; Translations: [DIARRHEA UNSPECIFIED] Onset: 06-02-2022 Episodic Other lower respiratory disease (5 sources) Other nonspecific abnormal finding of lung field; Translations: [Other nonspecific abnormal finding of lung field] Onset: 11-01-2022 Episodic Other screening for suspected conditions (not mental disorders or infectious disease) (5 sources) Abnormal finding of blood chemistry, unspecified; Translations: [Encounter for screening, unspecified] Onset: 04-28-2022 Episodic Phlebitis; thrombophlebitis and thromboembolism (4 sources) Deep venous thrombosis of lower extremity; Translations: [Personal history of other venous thrombosis and embolism] Onset: 05-01-2022 06-08-2022 Episodic Residual codes; unclassified (1 source) Acquired absence of other specified parts of digestive tract; Translations: [ACQ ABSENCE OTH PART DIGESTV TRACT] Onset: 08-24-2022 Episodic Residual codes; unclassified (4 sources) Edema, unspecified; Translations: [EDEMA UNSPECIFIED] Onset: 08-10-2022 Episodic Spondylosis; intervertebral disc disorders; other back problems (10 sources) Spinal stenosis of thoracic region; Translations: [Pain in thoracic spine] Onset: 07-27-2022 06-08-2022 Episodic Thyroid disorders (1 source) Disorder of thyroid, unspecified; Translations: [DISORDER OF THYROID UNSPECIFIED] Onset: 05-01-2022 Episodic Unclassified (1 source) LOW BACK PAIN, UNSPECIFIED; Translations: [LOW BACK PAIN, UNSPECIFIED] Onset: 03-16-2023 Unclassified (1 source) CONTACT W/AND (SUSP) EXPOS COVID-19; Translations: [CONTACT W/AND (SUSP) EXPOS COVID-19] Onset: 07-04-2022 Results Test Name Value Interpretation Reference Range Facility Coding Summaryon 10-22-2023 Coding Summary HTMLBase 64 LrwohfbpPYf1yKx+PGhlYWQ+PE1FV LHmI95leUKtoG3jT0XNOSpEPlhoYK CIJJuWFyLshkCcLH9vfMScNIAz IC8+JK4qBXHxUgtfsTDhy2N7lYK2E 67irr7aEZobdGV5NHVmSxXmjnzrc4 xclYc6EOzmEcmjSqPq OVZhvJ74WKM7qV04Dn79jFPevHTzp 6vggEe6DnIcXPMnMZL9iPebNQlwn3 KhCRRiP46lqEHon0B7 XIBfkWoqoDNeKjVhwWW5cC7dCBjlm gviv6lbvkvhUva3lz93iPKqo7I5iW C8M5IxynP8SANbvONt BsbtzCRIuR0lufdoz1xnxaqpWkWqW ANgVJv0YWr1AWTfkMgjZiCzZT88HG L4NPYykcZiJ4ZqQXTq mCjlEqU2w5U3Yo2FW0VVVcxbS3AMB UFSWTwvdGQ+GS59vn34H3NrYasgNu f0EGIuLFL7pEJ9xB8f OIMjOFpbf9G1cLC5L2SqeqJuhz7db 8xbIBUaISawK78toNJow0F3VQSybN A4KRUrzLemAdBsbZ96 Oyc+ACWigUxkk5XwFbeda5vki7uge Nb9GsjqZLEvsmFpdAczETX1s7QfLw 6pRTDwaBS5sFA6gE0i UhYaAdS1SBmiO956SaGvvAFeEygbC 45aZ0PzaVW+QAQdUrz7TFXzwUvhAH 5cP2FvNYWburnmsYLf lBzuTP8xKFGtfojgIQDpjW8dBWOcL 0b6GhZfJtF8FWvsY0EiOVRabusgCq 77sN8pJpDnDvO7RAmj M7NmbgK9TASpzQNvKSzkLDC9O28ua 9P2WZZdWKCnWIB2fQZ7zV4qiWsbzb ogbGVmdDsgdmVydGlj PKbqOVsbE524IKPfaFueVfMfNZhcL yBEYXRlOiAgMTIvMTgvMjAyMzwvdG Q+KLCwEKJ5oIgdSGXk nGLwNJzsHo9axQsaaTnvIR5xWIWdn fndMYHpwR4oNZHseVLxtCyjMO6fKQ Zcslxri131EeStLKZ0 RCKrgBMeM7YquT7oJbAcYIRfCRPsU 0EhzLCjSTzvS572MPgeVqY4WZXeid EiN1JuXUXglSiaWjH6 z4G7Fr0Id6ErwszbA4JpeBScYaUgC mutUHj3B6TdKhhbyLN+GP16XAIeNH 90BSe7OJT2lNaxBBtp KVItV0RdvJ0dZaWoMDEhKFBkAow+P HRhYmxlIHdpZHRoPScxMDAlJyBzdH zpZW6qNi4sJXPyQQEz eCdmfLOqGtKcq4xkIQRuIFdrRV4xb VwxZ1WpnNQ3XCYhd2f4Jh54R16nU1 JvdXA+TWEdsWF9nOE7 tA0bLhZsUwJ2QMynC421ErVdnAKcZ hsfw2pja5xlzQy7GbL9NRJavvXflN cjQAB3z5FrZv70R88j ELpdKFElFQDsCEWuBCIilBfvzk2vs G9wIi8+KLGglHT8fVJ8vH9bXzUnAl D9QVqvI754NyAwqYSs Vwjwc9buy9hwhDd3HfFeHABrnoQpp YmfXZY4g5GrQx06G4UjrDnqr0RoKz q0pu21bDXjy4I7nWV0 Z3LjHKYhinjrzEZhlFeaXW7bQYBvw bhjMXBswB9uOZKzN9k6PtTzOeB7SN gfO5ZheiV5CUBvbIEt TQGftIVXjR9iwquvr8vchdsxFgJfR GIxDKa2WWt4LNLknBwlQzIfLCF0Sa E9TDU8vUFycM0ugJor iwsusL7zHyd+AAT4fFDrgKAPTS0aP jwvdGQ+YNEdKRA6gEkaPDfdTWGjbP 3wKFQxG1r8QcHlKoK1 RBmmB3MxwmB4RLEclMOwIXQcxMWSq K5tlyffy2dntcrlPaNzVBYgSFk6AR g8MRSzxHgdGwYbPUP3 PjV5OOV6nDXljB0jnOtndgeceY4eR yc+KbhghWylPST4THb8Y0FbQjp0QG PstBbnRI1vhZFsHOad Xr5luOqjsCnbBA7zDYJeonwto320Q iVdh9xbRMDokKVzSUmrHLC3O45sl8 Z6TYEiZHTyLCB3mNL5 lV9faXjzourwuPQpoUywftLsoElrP AabNShmY919CCNarUvhKcOfFUq2N0 TsJyp0GZUxoVtgES8o tOGmRCpyAm5vhGvndYiaSX5iOFPpf jytc407HlUbu2mrZWWtzYQfHQxeDU U8P86it7Y8GLJyQIXz ICI0vWB1iT8gaAbuzlixfSUkuIluu xUonNlrNLmvEJedL716ODXuoAwzAi GzeRz9P7EgLpj9WFQi pLbbQB1guOOnNJipAh0hwAbxtJrsZ R7iKDJfoduth056LjGrd7kbHTIzbX QcGUkrTMK3R85dh6R6 PHTtNYBrPIX9rFL5rI0foQlkuyfri NAjsLnqneBikNvpZOsaJZltQ321BA RvcDsnPlBhdGllbnQg CHbvPHy3E7JkAgfvjKB+LH77JGEvH B59bSLypTYlk3xacJt0PjSeIYQlLN X8xNmcZBvxs1KwYMMq C14muBZmd4S0GEOjuLlmySKeHnLsp OP0tD2vZYngdqbxh0byinntKzqrp5 ynqe20tH79O35rZRas OEDzFLAfLTIgGNPtcAbxtn2voD4bX i8+GPTfgEY4nKB0rM8iUKLrBrK6OE tfD696ZjEmtPQfIhcq u0mxb7kfsXh7GvK2VMUsoaIyvIepS YF3f7EgRf66N94jFMokQNMkSAHwZT KrSBUvzQsfwt5ujF5l Ii8+EKIkfMG2sKU2eX0bPrTwCwS2S VdbW444DaHkxFKnSulhI20iE1VdsM A+VUDlTyb8USPkoOcl MN7abIUrJLdvFt9pZIN4FcUmTrMkG LmfX8LiWKOxdpjcowspvSZ1CSAkZS PeyB87Ap1zeMrsWJNi zAQFmC1zansfq6bfkpmcCfDbNMWcP Vh6KQc3QPBraWohWvIoZTX9RhM3OV R4mLItiV3igEixoutx eK6zO5HlEWZsezctTq05mE4uHjSxE tR7YXrqGkh+UkFJRlNOSURFUiwgTU FSWSBBTElDRTwvdGQ+ WAVgEHD4pCrjSDzhXHPooS0nRESbI 5x7DdJhRhA3AWtxF8PfNKUzvhglRk 00aE5xKpXjNmJ3DPdl I3HmruW4FRYmuKSyKIaeCHF2L63cf 5Z5HKGzMZWnHIK9iJM5sO9ddUjvuo ogbGVmdDsgdmVydGlj DKuxNPqbP455MCBdeLkfXeI2EhYhB rJ3Rwm5M0HrAgg1OYDzzJbyJP2llI PuWHpjXw0ogIhcdXet PH3iBTXpdpadLUBepC5xMZHdxRUgn PqbHP6xJTHmhlwti272IsRbZOD6MA ChpPKhZ4EhlS8uUcPc XTMyOUPjE3JzgPGhINsqN586RItzI sD9YMKfraOvU0XiUQEurDnyTdW2n2 U9Xr46EKGRSLLymwvv dGQ+NNIdTXL0fJpgNYwdXESpsX8jN YAbV1o1CgDaZwZ4YHxnX3QjDHJaza cfVp57lB3bChAcKvK4 MEshO6LohkS3RPOthKOmHGunWHH1Y 37pr1K9JZRsCPIbAVM2oIS4sB0ysD lnbjogbGVmdDsgdmVy bDivYInhQQfiD234TWUaeMyyRnVVO UFMRTwvdGQ+HTScEOQ3dXbnUYovYZ AjeY9aQFWaR5p6JqFf SjD1PRaaL8FyVJYznqxjHj61hM9fM pQvAaQ6UHorE3KmoxY5NEHtnDAdVR xlJII4B65nh5K1TBZh XOGlAYD4yWD6jX0bxOkiqkfwkWUmg RikzzMjsYreMJzmSKbxD633WLYntM eoDzluoRJ8oCBhqMls dGQ+UV29tx21F9NlHdcnVzf8KQJnU VD3bXQ9vM2mGXXhBVzbm0X6nZA4J4 GzlqBigz7wh9wnIKSa WOauJ14ikORrb0P8DLSoxSP2PNEip NopIqTmpJ14Gfm+FUMgtHmjm1MiUw mts2gpa2yriVp2OsKv AGHmloJifKnvOIV6k7KvSx89J69oS LxzBMVnGQHsVWCmXUAkpJkqrt7oiX 9wIi8+YOObnRY0xPO9 gH7hGjRoSnF7NSftC312ZcAdiJOzA eppy6esi9dntTw5PnLkEBHhqoWxuP cnLNG4z3UsSm93F9Qt sGjhq4BrTwr3nx28iRMpy0T3lPV6W 1PjYIFtgcyweKHsqTlqSW4lZYWxek ldMFIirJ3fXHWuI7i9 PvWiOoA9WVuvN0QbuzN2DFIepDRuS CIvmHEKeI3eifupk3qrycoeRaEjBE CcQLn8BZh4XOGanBxf HxPhHEB0IgI8NUY6tAGqcR5tkHnip tkprY9jUam+HIe4u4yrkBBfLB6xiR N2IA51CD46gMVbi6C7 vPS8X9DdLUQreowoshutmYI2RJNiX GHpqP21Jx4amEvjNf8yLVIuNQI5HV YnvKYcY2OvxI5tIhMs ABKnFJLhJ1UbyRQlFFxgC606DNlmF sY6UOFwglWwT6IdAPTxvOaoQwQ3v6 G0Sk4KUI19KJ50DS43 xFIme3M1aKF2Z6AbNEDjxmkkczfkk NY9BFMuAXGjwH64Iq4jmRudAk3wYB NkJVF3DYMssJFaM0Ek lX2sUfSwAZPqCSHwJ8JkmRKzJQjhZ 147IJfgNcL1FCZyfnZeB4PhKWSchZ xxNpX7a0A4Wq7CWe51 CD69VO27iDMka4A0sIB5O8AlTXWrd icamjepwRA1TVJrRCRhnR69Mx0mkI oqWq0kBKObCVW6GJXi cDJlK7NmmO6oNnStIUCaETFwC2Qwk VOeXVhfV813OSliYyN3UWYyziFtS8 DcRLNxsEpsBcB4w6H5 Wk9RAJdnuci4D0XtJndnsTL+PC90Y WXgXN47bUGnfHYwr0tlwZi2YmAgHJ LrSPE7jVczEVmcm3Ov ZXI (more content not included)... Normal [facility] C Bloodon 10-18-2023 C Blood No growth at 5 Days Normal [facility] Comment on above: Performed By: #### [id number] #### [facility] (DEFAULT) [address] [place] [id number] Consent [employer] 10-17-2023 Consent Forms [id number] 10-17-2023 Outside Records [id number]#[place] 10-17-2023 Provider Orders [id number]#1.00[facility] Telemetry Stripson Telemetry Strips [id number]#1.[facility] Therapeutic Documentation on 10-16-2023 Therapeutic Documentation [id number]#1.[place] C Bloodon 10-16-2023 C Blood patient went to [facility] scan Nurse from [address] [place] [address] will call when patient is back to her room @1440 jwilkins No growth at 5 Days Normal [facility] Comment on above: Performed By: #### 6 [id number] ####[facility] (DEFAULT)[address] [place] [address] 89055 CRPon 10-16-2023 CRP 3.1 mg/dL High <=0.5 [facility] Comment on above: Performed By: #### 2 108137, [id number] #### [facility] (DEFAULT) [address] [place] [address] 22115 Inpatient Patient Summaryon 10-16-2023 Inpatient Patient Summary [address] [id number] Patient Discharge Instructions Name: ALICIA NGUYỄN : 1940 Patient Address: [address] [place] [address] Primary Care Provider: Name: SANTIAGO OTTO After you are discharged if you find you have any questions, please, call [phone] ext [phone] to speak to a nurse. The Pharmacy at [facility] is open Sunday through Sunday from 9A to 6P and Sunday and Sunday from 9A to 5P Discharge Diagnosis: 1:Septic arthritis of knee Prescription Information: If you have been given a prescription for narcotics, seek immediate medical attention if you have any difficulty breathing or any sudden status changes such as confusion and sleepiness. If you or anyone you know is experiencing suicidal thoughts, mental health, alcohol and/or drug addiction problems; contact the [facility] 28/05 Crisis Hotline -Text 2ZQMR ct [phone]. If you received any narcotics, sedation, or any other medication that causes drowsiness for the next 24 hours, unless otherwise directed: ? Do not drive a car. ? Do not operate machinery such as power tools, lawn mowers, drills, sewing machines, or stoves ? Avoid alcoholic beverages and drugs for allergies, nerves, or sleep ? Do not make important personal or business decisions or sign any legal documents [facility] would like to thank you for allowing us to assist you with your healthcare needs. The following includes patient education materials and information regarding your injury/illness. ALICIA NGUYỄN has been given the following list of follow-up instructions, prescriptions, and patient education materials: Follow-up Instructions With: Address: When: JOB AGUILAR DO [address] [place] [address] Within 10 to 12 days Comments: orthopedic follow up With: Address: When: Jamal Vizcarra [address] [place] [address], [address] [place] [address] Business (1) 10/26/2023 10:30 AM Medications During the course of your visit, your medication list was updated with the most current information. The details of those changes are reflected below: New Medications Other Medications acetaminophen (acetaminophen 325 mg oral tablet) 2 tab(s) Oral (given by mouth) Every 4 hours as needed Pain/Fever. polyethylene glycol 3350 (MiraLax) 17 gram Oral (given by mouth) every day. Medications That Were Updated - Follow Below Instructions Printed Prescriptions Updated: acetaminophen-hydrocodone (acetaminophen-hydrocodone 325 mg-5 mg oral tablet) 1 tab(s) Oral (given by mouth) every 6 hours as needed Pain - Severe for 3 Days. Refills: 0. Medications to Continue That Have Not Changed Other Medications alendronate (alendronate 70 mg oral tablet) 1 tab(s) Oral (given by mouth) every week. amLODIPine (amLODIPine 5 mg oral tablet) 1 tab(s) Oral (given by mouth) every day. cetirizine (All Day Allergy (Cetirizine) 10 mg oral tablet) 1 tab(s) Oral (given by mouth) every day. chondroitin-glucosamine (Osteo Bi-Flex) Oral (given by mouth) every day. DULoxetine (DULoxetine 30 mg oral delayed release capsule) 1 cap(s) Oral (given by mouth) At bedtime. (do not crush or chew). levothyroxine (levothyroxine 50 mcg (0.05 mg) oral tablet) 1 tab(s) Oral (given by mouth) every day. liothyronine (liothyronine 5 mcg oral tablet) 1 tab(s) Oral (given by mouth) every day. metoprolol (Metoprolol Tartrate 50 mg oral tablet) 2 tab(s) Oral (given by mouth) every day. metoprolol (Metoprolol Tartrate 50 mg oral tablet) 1 tab(s) Oral (given by mouth) At bedtime. metoprolol (Metoprolol Tartrate 50 mg oral tablet) 1 tab(s) Oral (given by mouth) every day. at noon. omeprazole (omeprazole 20 mg oral delayed release capsule) 1 cap(s) Oral (given by mouth) 2 times a day. triamcinolone topical (triamcinolone 0.1% topical cream) 1 dano Topical (on the skin) 2 times a day. It is important to always keep an active list of medications available so that you can share with other providers and manage your medications appropriately. As an additional courtesy, we are also providing you with your final active medications list that you can keep with you. acetaminophen (acetaminophen 325 mg oral tablet) 2 tab(s) Oral (given by mouth) Every 4 hours as needed Pain/Fever. acetaminophen-hydrocodone (acetaminophen-hydrocodone 325 mg-5 mg oral tablet) 1 tab(s) Oral (given by mouth) every 6 hours as needed Pain - Severe for 3 Days. Refills: 0. alendronate (alendronate 70 mg oral tablet) 1 tab(s) Oral (given by mouth) every week. amLODIPine (amLODIPine 5 mg oral tablet) 1 tab(s) Oral (given by mouth) every day. cetirizine (All Day Allergy (Cetirizine) 10 mg oral tablet) 1 tab(s) Oral (given by mouth) every day. chondroitin-glucosamine (Osteo Bi-Flex) Oral (given by mouth) every day. DULoxetine (DULoxetine 30 mg o (more content not included)... [facility] Pharmacy Noteon 10-16-2023 Pharmacy Note I have personally re viewed the patient's medication list upon discharge including, prescription medications, OTC products, vitamins and supplements. Below are the following medications the patient is discharged on. New Medications Other Medications acetaminophen (acetaminophen 325 mg oral tablet) 2 tab(s) Oral (given by mouth) Every 4 hours as needed Pain/Fever. polyethylene glycol 3350 (MiraLax) 17 gram Oral (given by mouth) every day. Medications That Were Updated - Follow Below Instructions Printed Prescriptions Updated: acetaminophen-hydrocodone (acetaminophen-hydrocodone 325 mg-5 mg oral tablet) 1 tab(s) Oral (given by mouth) every 6 hours as needed Pain - Severe for 3 Days. Refills: 0. Medications to Continue That Have Not Changed Other Medications alendronate (alendronate 70 mg oral tablet) 1 tab(s) Oral (given by mouth) every week. amLODIPine (amLODIPine 5 mg oral tablet) 1 tab(s) Oral (given by mouth) every day. cetirizine (All Day Allergy (Cetirizine) 10 mg oral tablet) 1 tab(s) Oral (given by mouth) every day. chondroitin-glucosamine (Osteo Bi-Flex) Oral (given by mouth) every day. DULoxetine (DULoxetine 30 mg oral delayed release capsule) 1 cap(s) Oral (given by mouth) At bedtime. (do not crush or chew). levothyroxine (levothyroxine 50 mcg (0.05 mg) oral tablet) 1 tab(s) Oral (given by mouth) every day. liothyronine (liothyronine 5 mcg oral tablet) 1 tab(s) Oral (given by mouth) every day. metoprolol (Metoprolol Tartrate 50 mg oral tablet) 2 tab(s) Oral (given by mouth) every day. metoprolol (Metoprolol Tartrate 50 mg oral tablet) 1 tab(s) Oral (given by mouth) At bedtime. metoprolol (Metoprolol Tartrate 50 mg oral tablet) 1 tab(s) Oral (given by mouth) every day. at noon. omeprazole (omeprazole 20 mg oral delayed release capsule) 1 cap(s) Oral (given by mouth) 2 times a day. triamcinolone topical (triamcinolone 0.1% topical cream) 1 dano Topical (on the skin) 2 times a day. Discharge Med Rec Notes: Reviewed admission medication list against external fill history and available [employer] medication history to ensure accuracy. Reviewed regimen upon discharge which is appropriate and correct. 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 [Electronically Signed on: 10/16/2023 11:12 EST] Jamal Butler [Verified on: 10/16/2023 11:12 EST] Jamal Butler Normal [facility] Sed Rateon 10-16-2023 Sed Rate 83 mm/hr High 0-20 [facility] Comment on above: Performed By: #### 2 976369, [id number] #### [facility] (DEFAULT) [address] [place] [address] .Auto Diff 1on 10-15-2023 Auto Mineral % 9 % Normal 11-16 [facility] Comment on above: Performed By: #### 2 684344, [id number], 61876324, 3160612, 7292823 #### [facility] (DEFAULT) [address] [place] [address] Baso Abs# 0.0 x10 Normal 0.0-0.2 [facility] Comment on above: Performed By: #### 2 773803, [id number], 17051054, 8213389, 3971748 #### [facility] (DEFAULT) [address] [place] [address] Basophils/100 WBC (Bld) 0.2 % Normal 0.2-2.0 [facility] Comment on above: Performed By: #### 2 077590, [id number], 35493013, 5904496, 7142649 #### [facility] (DEFAULT) [address] [place] [address] Eos Abs# 0.1 x10 Normal 0.0-0.4 [facility] Comment on above: Performed By: #### 2 731649, 6128757553, 58999307, 8370952, 5500953 #### [facility] (DEFAULT) [address] [place] [address] 15929 Eosinophils/100 WBC (Bld) 0.8 % Low 0.9-4.0 [facility] Comment on above: Performed By: #### 2 992443, 5667103036, 26584172, 2944647, 1847587 #### [facility] (DEFAULT) [address] [place] [address] 65438 Lymph Abs# 1.1 x10 Low 1.3-2.9 [facility] Comment on above: Performed By: #### 2 982737, [id number], 64752040, 8652418, 8944402 #### [facility] (DEFAULT) [address] [place] [address] 47414 Lymphocytes/100 WBC (Bld) 13 % Low 14-48 [facility] Comment on above: Performed By: #### 2 604000, [id number], 72066320, 9246992, 2221524 #### [facility] (DEFAULT) [address] [place] [address] Mineral Abs# 0.8 x10 Normal 0.0-0.8 [facility] Comment on above: Performed By: #### 2 009012, [id number], 47130623, 2666652, 8630482 #### [facility] (DEFAULT) [address] [place] [address] Neut Abs# 6.5 x10 Normal 1.5-9.2 [facility] Comment on above: Performed By: #### 2 957073, 2908923863, 51262364, 9340100, 4664689 #### [facility] (DEFAULT) [address] [place] [address] Neutrophils/100 WBC (Bld) 76 % Normal 44-88 [facility] Comment on above: Performed By: #### 2 301257, [id number], 24966780, 5351895, 6551567 #### [facility] (DEFAULT) [address] [place] [address] Standardon 10-15-2023 Breakpoint Chem Normal [facility] Comment on above: Performed By: #### 2 703039, [id number], 48923977, 3996759, 2251881 #### [facility] (DEFAULT) [address] [place] [address] eGFR Non AA >60 Invalid Interpretation Code [facility] Comment on above: Performed By: #### 2 447585, [id number], 56740681, 9362948, 4541967 #### [facility] (DEFAULT) [address] [place] [address] eGFR AA >60 Invalid Interpretation Code [facility] Comment on above: Performed By: #### 2 063115, [id number], 13083894, 3836120, 4168667 #### [facility] (DEFAULT) [address] [place] [address] Anion gap [Moles/Vol] 7.4 mmol/L Normal 5.0-19.0 [facility] Comment on above: Performed By: #### 2 203521, [id number], 16212564, 4823584, 6712904 #### [facility] (DEFAULT) [address] [place] [address] 22588 Calcium [Mass/Vol] 8.8 mg/dL Low 8.9-10.3 [facility] Comment on above: Performed By: #### 2 243001, [id number], 89888593, 5497177, 4747448 #### [facility] (DEFAULT) [address] [place] [address] 05926 Chloride [Moles/Vol] 106 mmol/L Normal 101-111 [facility] Comment on above: Performed By: #### 2 768134, 1505694351, 84817740, 1741142, 5098981 #### [facility] (DEFAULT) [address] [place] [address] 76241 CO2 [Moles/Vol] 26 mmol/L Normal 21-32 [facility] Comment on above: Performed By: #### 2 181400, 5129539379, 64518932, 3761317, 3044843 #### [facility] (DEFAULT) [address] [place] [address] 54549 Creatinine [Mass/Vol] 0.88 mg/dL Normal 0.60-1.30 [facility] Comment on above: Performed By: #### 2 344038, [id number], 44620444, 4088645, 0421726 #### [facility] (DEFAULT) [address] [place] [address] 75832 Glucose [Mass/Vol] 109.0 mg/dL Normal 74.0-118.0 [facility] Comment on above: Performed By: #### 2 795907, 0450913853, 65303768, 8401794, 3293848 #### [facility] (DEFAULT) [address] [place] [address] 28366 Osmolality 273 mOsm/L Invalid Interpretation Code [facility] Comment on above: Performed By: #### 2 087371, 6660373792, 77862981, 0794694, 7818810 #### [facility] (DEFAULT) [address] [place] [address] Potassium [Moles/Vol] 4.4 mmol/L Normal 3.6-5.1 [facility] Comment on above: Performed By: #### 2 983680, 4036486987, 40748815, 5029014, 1496300 #### [facility] (DEFAULT) [address] [place] [address] Sodium [Moles/Vol] 135.0 mmol/L Low 136.0-144.0 [facility] Comment on above: Performed By: #### 2 001337, 3646331829, 78012039, 6019910, 7440810 #### [facility] (DEFAULT) [address] [place] [address] Urea nitrogen [Mass/Vol] 19 mg/dL Normal 8-26 [facility] Comment on above: Performed By: #### 2 186333, 5918138853, 39923136, 2625132, 1991516 #### [facility] (DEFAULT) [address] [place] [address] Urea nitrogen/Creatinin e [Mass ratio] 21.5 mg/mg High 4.6-16.2 [facility] Comment on above: Performed By: #### 2 350897, 5884838717, 75215744, 6368136, 9130284 #### [facility] (DEFAULT) [address] [place] [address] CBC w/ Auto Diffon 3 Erythrocyte distribution width (RBC) [Ratio] 15.3 % High 11.5-15.0 [facility] Comment on above: Performed By: #### 2 483457, 6431504486, 78902039, 2758206, 2059719 #### [facility] (DEFAULT) [address] [place] [address] Hematocrit (Bld) [Volume fraction] 29.8 % Low 33.7-40.4 [facility] Comment on above: Performed By: #### 2 127728, 9609919709, 84510086, 6321772, 5608646 #### [facility] (DEFAULT) [address] [place] [address] Hemoglobin (Bld) [Mass/Vol] 9.9 g/dL Low 11.3-15.9 [facility] Comment on above: Performed By: #### 2 950621, 1018715777, 73358842, 5888385, 2681640 #### [facility] (DEFAULT) [address] [place] [address] Man Diff? Auto Invalid Interpretation Code [facility] Comment on above: Performed By: #### 2 684616, 4791974066, 36737997, 8058433, 6369488 #### [facility] (DEFAULT) [address] [place] [address] MCH (RBC) [Entitic mass] 30 pg Normal 24-34 [facility] Comment on above: Performed By: #### 2 804627, 4687780344, 64937375, 0519545, 2591387 #### [facility] (DEFAULT) [address] [place] [address] MCHC (RBC) [Mass/Vol] 33 g/dL Normal 26-37 [facility] Comment on above: Performed By: #### 2 868215, 0138235635, 70968202, 1021843, 8238519 #### [facility] (DEFAULT) [address] [place] [address] MCV (RBC) [Entitic vol] 90 fL Normal 81-100 [facility] Comment on above: Performed By: #### 2 863128, 3132824143, 34822761, 5598916, 0625796 #### [facility] (DEFAULT) [address] [place] [address] Platelet 363 x10 Normal 138-427 [facility] Comment on above: Performed By: #### 2 037624, 6761901341, 22211152, 3975692, 8938800 #### [facility] (DEFAULT) [address] [place] [address] Platelet mean volume (Bld) [Entitic vol] 6.1 fL Low 6.3-10.2 [facility] Comment on above: Performed By: #### 2 952414, 9342400594, 87132715, 1441089, 2745015 #### [facility] (DEFAULT) [address] [place] [address] RBC 3.31 x10 Low 3.70-5.30 [facility] Comment on above: Performed By: #### 2 265884, 1468154757, 92662539, 0387268, 6784081 #### [facility] (DEFAULT) [address] [place] [address] 61047 WBC 8.5 x10 Normal 3.5-10.5 [facility] Comment on above: Performed By: #### 2 306824, 4112590257, 37620712, 4015144, 5627287 #### [facility] (DEFAULT) [address] [place] [address] 94133 CRPon 10-15-2023 CRP 2.1 mg/dL High <=0.5 [facility] Comment on above: Performed By: #### 2 298937, 6559691454, 47565237, 7019483, 9812923 ####[facility] (DEFAULT)[address] [place] [address] 72409 Nutrition Noteon 10-15-2023 Nutrition Note Per intake records, Pts avg 75+% of meals. Last BM 10/13. 10/15 labs reviewed, CRP/sed rate slowly improving. PICC line in place for IV atb. Discharge anticipated for tomorrow. Normal [facility] Sed Rateon 10-15-2023 Sed Rate 78 mm/hr High 0-20 [facility] Comment on above: Performed By: #### 2 257036, [id number], 79853606, 1014281, 6919158 ####[facility] (DEFAULT)[address] [place] [address] 12940 XR Chest 1 View Frontalon XR Chest 1 View Frontal HISTORY: PICC placement COMPARISON: 10/12/2023 TECHNIQUE: Portable AP view of the chest FINDINGS: Interval placement of the left upper extremity PICC with the tip of the PICC terminating within the SVC. Atherosclerotic calcification of the thoracic aorta. The cardiomediastinal silhouette is within normal limits. No pneumothorax, pleural effusion, or consolidation. No acute osseous abnormality. IMPRESSION: No radiographic evidence of acute intrathoracic process. Final Signed (Electronic Signature): Dale Richmond DO 10/15/23 1:04 pm Technologist: Peggy LOMELI [facility] C Fluidon 10-14-2023 C Fluid Moderate growth of Streptococcus viridans group Fluid is red with red clots and large white chunks 4+ White Blood Cells Rare Gram Positive Rods Rare Gram Positive Cocci ORGANISM Strvir SUSCEPTIBILITY ORGANISM ID: 1 ANTIBIOTIC INTERPRETATION ANICETO STATUS ORGANISM StrvirStrvir Amp S <=0.06 Verified Amox/Cla <=0.5/.25 Verified Azith S <=0.25 Verified Ceftri S <=0.25 Verified Clinda S <=0.06 Verified Cefac 2 Verified Cefep S <=0.25 Verified Cefur <=0.25 Verified Levo S 0.5 Verified Pen S <=0.03 Verified Tri/Sulf <=.25/4.7 Verified Tetra S <=0.5 Verified Vanc S 0.5 Verified Normal [facility] Comment on above: Performed By: #### 2 277330, 3938091 #### [facility] (DEFAULT) [address] [place] [address] 47554 CRPon 10-14-2023 CRP 1.8 mg/dL High <=0.5 [facility] Comment on above: Performed By: #### 2 213471, 3877575 #### [facility] (DEFAULT) [address] [place] [address] 38960 Sed Rateon 10-14-2023 Sed Rate 74 mm/hr High 0-20 [facility] Comment on above: Performed By: #### 2 943502, 2992574 #### [facility] (DEFAULT) [address] [place] [address] 71397 .Auto Diff 1on 10-13-2023 Auto Mineral % 5 % Normal 11-16 [facility] Comment on above: Performed By: #### 2 514040, 6378662 #### [facility] (DEFAULT) [address] [place] [address] 70924 Baso Abs# 0.0 x10 Normal 0.0-0.2 [facility] Comment on above: Performed By: #### 2 642256, 6459852 #### [facility] (DEFAULT) [address] [place] [address] Basophils/100 WBC (Bld) 0.2 % Normal 0.2-2.0 [facility] Comment on above: Performed By: #### 2 393278, 7244293 #### [facility] (DEFAULT) [address] [place] [address] Eos Abs# 0.0 x10 Normal 0.0-0.4 [facility] Comment on above: Performed By: #### 2 803960, 1120166 #### [facility] (DEFAULT) [address] [place] [address] Eosinophils/100 WBC (Bld) 0.1 % Low 0.9-4.0 [facility] Comment on above: Performed By: #### 2 653222, 3073552 #### [facility] (DEFAULT) [address] [place] [address] Lymph Abs# 1.0 x10 Low 1.3-2.9 [facility] Comment on above: Performed By: #### 2 497401, 8077710 #### [facility] (DEFAULT) [address] [place] [address] Lymphocytes/100 WBC (Bld) 9 % Low 14-48 [facility] Comment on above: Performed By: #### 2 675965, 2914695 #### [facility] (DEFAULT) [address] [place] [address] 99915 Mineral Abs# 0.6 x10 Normal 0.0-0.8 [facility] Comment on above: Performed By: #### 2 486848, 5193929 #### [facility] (DEFAULT) [address] [place] [address] 04175 Neut Abs# 10.1 x10 High 1.5-9.2 [facility] Comment on above: Performed By: #### 2 756408, 4025770 #### [facility] (DEFAULT) [address] [place] [address] 21246 Neutrophils/100 WBC (Bld) 86 % Normal 44-88 [facility] Comment on above: Performed By: #### 2 933587, 0792999 #### [facility] (DEFAULT) [address] [place] [address] 35683 BMP Standardon 10-13-2023 Breakpoint Chem Normal [facility] Comment on above: Performed By: #### 2 315265, 6807960 #### [facility] (DEFAULT) [address] [place] [address] 77656 eGFR Non AA >60 Invalid Interpretation Code [facility] Comment on above: Performed By: #### 2 832015, 0527266 #### [facility] (DEFAULT) [address] [place] [address] 87819 eGFR AA >60 Invalid Interpretation Code [facility] Comment on above: Performed By: #### 2 681541, 5389091 #### [facility] (DEFAULT) [address] [place] [address] 08867 Calcium [Mass/Vol] 8.5 mg/dL Low 8.9-10.3 [facility] Comment on above: Performed By: #### 2 490183, 6303007 #### [facility] (DEFAULT) [address] [place] [address] 12459 Chloride [Moles/Vol] 105 mmol/L Normal 101-111 [facility] Comment on above: Performed By: #### 2 391357, 7790629 #### [facility] (DEFAULT) [address] [place] [address] 57122 CO2 [Moles/Vol] 24 mmol/L Normal 21-32 [facility] Comment on above: Performed By: #### 2 129765, 1231504 #### [facility] (DEFAULT) [address] [place] [address] 35188 Creatinine [Mass/Vol] 0.76 mg/dL Normal 0.60-1.30 [facility] Comment on above: Performed By: #### 2 396222, 1676887 #### [facility] (DEFAULT) [address] [place] [address] 62679 Glucose [Mass/Vol] 113.0 mg/dL Normal 74.0-118.0 [facility] Comment on above: Performed By: #### 2 791110, 1016931 #### [facility] (DEFAULT) [address] [place] [address] 49800 Potassium [Moles/Vol] 4.9 mmol/L Normal 3.6-5.1 [facility] Comment on above: Performed By: #### 2 915020, 8223423 #### [facility] (DEFAULT) [address] [place] [address] 35078 Sodium [Moles/Vol] 135.0 mmol/L Low 136.0-144.0 [facility] Comment on above: Performed By: #### 2 703457, 1079423 #### [facility] (DEFAULT) [address] [place] [address] 65802 Urea nitrogen [Mass/Vol] 33 mg/dL High 8-26 [facility] Comment on above: Performed By: #### 2 [id number], [id number] #### [facility] (DEFAULT) [address] [place] [address] 73590 Anion gap [Moles/Vol] 10.9 mmol/L Normal 5.0-19.0 [facility] Comment on above: Performed By: #### 2 668114, [id number] #### [facility] (DEFAULT) [address] [place] [address] 23712 Osmolality 278 mOsm/L Invalid Interpretation Code [facility] Comment on above: Performed By: #### 2 [id number], [id number] #### [facility] (DEFAULT) [address] [place] [address] 92034 Urea nitrogen/Creatinin e [Mass ratio] 43.4 mg/mg High 4.6-16.2 [facility] Comment on above: Performed By: #### 2 752149, [id number] #### [facility] (DEFAULT) [address] [place] [address] 91373 C Bloodon 10-13-2023 C Blood Bacillus species No ANICETO performed on this organism Results called to Alicia Leonard RN at 2S by CDD and results read back for confirmation on 10/12/2023 05:12:42 Normal [facility] Comment on above: Performed By: #### 2 [id number], [id number] #### [facility] (DEFAULT) [address] [place] [address] CBC w/ Auto Diffon 3 Erythrocyte distribution width (RBC) [Ratio] 15.0 % Normal 11.5-15.0 [facility] Comment on above: Performed By: #### 2 656334, [id number] #### [facility] (DEFAULT) [address] [place] [address] Hematocrit (Bld) [Volume fraction] 26.7 % Low 33.7-40.4 [facility] Comment on above: Performed By: #### 2 721019, [id number] #### [facility] (DEFAULT) [address] [place] [address] Hemoglobin (Bld) [Mass/Vol] 8.9 g/dL Low 11.3-15.9 [facility] Comment on above: Performed By: #### 2 804503, [id number] #### [facility] (DEFAULT) [address] [place] [address] Man Diff? Auto Invalid Interpretation Code [facility] Comment on above: Performed By: #### 2 065545, [id number] #### [facility] (DEFAULT) [address] [place] [address] 36663 MCH (RBC) [Entitic mass] 30 pg Normal 24-34 [facility] Comment on above: Performed By: #### 2 145372, [id number] #### [facility] (DEFAULT) [address] [place] [address] 66357 MCHC (RBC) [Mass/Vol] 33 g/dL Normal 26-37 [facility] Comment on above: Performed By: #### 2 432953, [id number] #### [facility] (DEFAULT) [address] [place] [address] 89883 MCV (RBC) [Entitic vol] 89 fL Normal 81-100 [facility] Comment on above: Performed By: #### 2 497939, [id number] #### [facility] (DEFAULT) [address] [place] [address] 31759 Platelet 386 x10 Normal 138-427 [facility] Comment on above: Performed By: #### 2 765504, [id number] #### [facility] (DEFAULT) [address] [place] [address] 20305 Platelet mean volume (Bld) [Entitic vol] 6.1 fL Low 6.3-10.2 [facility] Comment on above: Performed By: #### 2 009239, [id number] #### [facility] (DEFAULT) [address] [place] [address] 71116 RBC 3.00 x10 Low 3.70-5.30 [facility] Comment on above: Performed By: #### 2 897348, [id number] #### [facility] (DEFAULT) [address] [place] [address] 79605 WBC 11.8 x10 High 3.5-10.5 [facility] Comment on above: Performed By: #### 2 234207, [id number] #### [facility] (DEFAULT) [address] [place] [address] 12996 CRPon 10-13-2023 CRP 3.2 mg/dL High <=0.5 [facility] Comment on above: Performed By: #### 2 204764, 7619590 #### [facility] (DEFAULT) [address] [place] [address] 64263 Sed Rateon 10-13-2023 Sed Rate 82 mm/hr High 0-20 [facility] Comment on above: Performed By: #### 2 087665, [id number] #### [facility] (DEFAULT) [address] [place] [address] 52332 .Auto Diff 1on 10-12-2023 Auto Mineral % 6 % Normal -12 [facility] Comment on above: Performed By: #### 1 1753368, [id number], 4894425 ####[facility] (DEFAULT)[address] [place] [address] 91274 Baso Abs# 0.0 x10 Normal 0.0-0.2 [facility] Comment on above: Performed By: #### 1 8019016, [id number], 2149160 ####[facility] (DEFAULT)[address] [place] [address] 68300 Basophils/100 WBC (Bld) 0.1 % Low 0.2-2.0 [facility] Comment on above: Performed By: #### 1 6234093, [id number], 0975128 ####[facility] (DEFAULT)[address] [place] [address] Eos Abs# 0.0 x10 Normal 0.0-0.4 [facility] Comment on above: Performed By: #### 1 6278974, [id number], 2375328 ####[facility] (DEFAULT)[address] [place] [address] 38125 Eosinophils/100 WBC (Bld) 0.0 % Low 0.9-4.0 [facility] Comment on above: Performed By: #### 1 7401864, [id number], 1035464 ####[facility] (DEFAULT)[address] [place] [address] Lymph Abs# 0.7 x10 Low 1.3-2.9 [facility] Comment on above: Performed By: #### 1 0683943, [id number], 1912355 ####[facility] (DEFAULT)[address] [place] [address] 91493 Lymphocytes/100 WBC (Bld) 6 % Low 14-48 [facility] Comment on above: Performed By: #### 1 2969139, [id number], 3494022 ####[facility] (DEFAULT)[address] [place] [address] 65479 Mineral Abs# 0.7 x10 Normal 0.0-0.8 [facility] Comment on above: Performed By: #### 1 7844367, [id number], 2818718 ####[facility] (DEFAULT)[address] [place] [address] 56047 Neut Abs# 10.3 x10 High 1.5-9.2 [facility] Comment on above: Performed By: #### 1 6301196, [id number], 7571511 ####[facility] (DEFAULT)[address] [place] [address] Neutrophils/100 WBC (Bld) 88 % Normal 44-88 [facility] Comment on above: Performed By: #### 1 6658333, [id number], 4827734 ####[facility] (DEFAULT)[address] [place] [address] CBC w/ Auto Diffon 3 Erythrocyte distribution width (RBC) [Ratio] 15.5 % High 11.5-15.0 [facility] Comment on above: Performed By: #### 1 3454476, [id number], 9932985 ####[facility] (DEFAULT)[address] [place] [address] Hematocrit (Bld) [Volume fraction] 29.6 % Low 33.7-40.4 [facility] Comment on above: Performed By: #### 1 6246222, [id number], 3734429 ####[facility] (DEFAULT)[address] [place] [address] Hemoglobin (Bld) [Mass/Vol] 10.1 g/dL Low 11.3-15.9 [facility] Comment on above: Performed By: #### 1 3485018, [id number], 3066381 ####[facility] (DEFAULT)[address] [place] [address] Man Diff? Auto Invalid Interpretation Code [facility] Comment on above: Performed By: #### 1 3766908, [id number], 8796871 ####[facility] (DEFAULT)[address] [place] [address] MCH (RBC) [Entitic mass] 30 pg Normal 24-34 [facility] Comment on above: Performed By: #### 1 8446692, [id number], 1890263 ####[facility] (DEFAULT)[address] [place] [address] MCHC (RBC) [Mass/Vol] 34 g/dL Normal 26-37 [facility] Comment on above: Performed By: #### 1 9967697, [id number], 7385598 ####[facility] (DEFAULT)[address] [place] [address] 69019 MCV (RBC) [Entitic vol] 88 fL Normal 81-100 [facility] Comment on above: Performed By: #### 1 7172162, [id number], 6667048 ####[facility] (DEFAULT)[address] [place] [address] 24299 Platelet 434 x10 High 138-427 [facility] Comment on above: Performed By: #### 1 4608582, [id number], 4440787 ####[facility] (DEFAULT)[address] [place] [address] 29903 Platelet mean volume (Bld) [Entitic vol] 6.2 fL Low 6.3-10.2 [facility] Comment on above: Performed By: #### 1 8531539, [id number], 7634060 ####[facility] (DEFAULT)[address] [place] [address] 65194 RBC 3.38 x10 Low 3.70-5.30 [facility] Comment on above: Performed By: #### 1 9976762, [id number], 9006191 ####[facility] (DEFAULT)[address] [place] [address] 13567 WBC 11.7 x10 High 3.5-10.5 [facility] Comment on above: Performed By: #### 1 9901231, 3391071145, 3071993 ####[facility] (DEFAULT)[address] [place] [address] 86376 CMP Standardon 10-12-2023 eGFR Non AA 57 mL/min/1.73m2 Invalid Interpretation Code [facility] Comment on above: Performed By: #### 1 5286370, [id number], 2604569 ####[facility] (DEFAULT)[address] [place] [address] 26806 eGFR AA >60 Invalid Interpretation Code [facility] Comment on above: Performed By: #### 1 9164256, [id number], 5223072 ####[facility] (DEFAULT)[address] [place] [address] 77435 Albumin [Mass/Vol] 2.4 g/dL Low 3.5-5.0 [facility] Comment on above: Performed By: #### 1 4148819, 6442668857, 2959858 ####[facility] (DEFAULT)[address] [place] [address] 10222 Albumin/Globulin [Mass ratio] 0.6 {ratio} Low 1.4-2.6 [facility] Comment on above: Performed By: #### 1 8588690, [id number], 2614626 ####[facility] (DEFAULT)[address] [place] [address] 69514 Alk Phos 105 IU/L High 32-91 [facility] Comment on above: Performed By: #### 1 7594784, [id number], 7629468 ####[facility] (DEFAULT)[address] [place] [address] ALT [Catalytic activity/Vol] 19.0 U/L Normal 14.0-54.0 [facility] Comment on above: Performed By: #### 1 1409791, [id number], 8864766 ####[facility] (DEFAULT)[address] [place] [address] 50898 Anion gap [Moles/Vol] 14.7 mmol/L Normal 5.0-19.0 [facility] Comment on above: Performed By: #### 1 2996065, [id number], 6641260 ####[facility] (DEFAULT)[address] [place] [address] 56304 AST [Catalytic activity/Vol] 17 U/L Normal 15-41 [facility] Comment on above: Performed By: #### 1 8686820, [id number], 8037956 ####[facility] (DEFAULT)[address] [place] [address] 68896 Bili Total 0.6 mg/dL Normal 0.3-1.2 [facility] Comment on above: Performed By: #### 1 3063840, [id number], 2105852 ####[facility] (DEFAULT)[address] [place] [address] 56728 Calcium [Mass/Vol] 8.8 mg/dL Low 8.9-10.3 [facility] Comment on above: Performed By: #### 1 8862329, 2326430546, 6459890 ####[facility] (DEFAULT)[address] [place] [address] 74821 Chloride [Moles/Vol] 103 mmol/L Normal 101-111 [facility] Comment on above: Performed By: #### 1 5010489, [id number], 9962663 ####[facility] (DEFAULT)[address] [place] [address] 48744 CO2 [Moles/Vol] 25 mmol/L Normal 21-32 [facility] Comment on above: Performed By: #### 1 6147727, [id number], 8063670 ####[facility] (DEFAULT)[address] [place] [address] Creatinine [Mass/Vol] 0.94 mg/dL Normal 0.60-1.30 [facility] Comment on above: Performed By: #### 1 2089646, [id number], 5754506 ####[facility] (DEFAULT)[address] [place] [address] 35107 Globulin (S) [Mass/Vol] 3.5 g/dL Normal 1.5-4.3 [facility] Comment on above: Performed By: #### 1 5147949, [id number], 3596688 ####[facility] (DEFAULT)[address] [place] [address] 14880 Glucose [Mass/Vol] 161.0 mg/dL High 74.0-118.0 [facility] Comment on above: Performed By: #### 1 1886579, [id number], 6265426 ####[facility] (DEFAULT)[address] [place] [address] 48361 Osmolality 286 mOsm/L Invalid Interpretation Code [facility] Comment on above: Performed By: #### 1 5218420, [id number], 2284358 ####[facility] (DEFAULT)[address] [place] [address] 92848 Potassium [Moles/Vol] 4.7 mmol/L Normal 3.6-5.1 [facility] Comment on above: Performed By: #### 1 4027419, [id number], 0719976 ####[facility] (DEFAULT)[address] [place] [address] 43654 Protein [Mass/Vol] 5.9 g/dL Low 6.5-8.1 [facility] Comment on above: Performed By: #### 1 5226955, [id number], 2201038 ####[facility] (DEFAULT)[address] [place] [address] 58613 Sodium [Moles/Vol] 138.0 mmol/L Normal 136.0-144.0 [facility] Comment on above: Performed By: #### 1 8186508, [id number], 7700786 ####[facility] (DEFAULT)[address] [place] [address] 79779 Urea nitrogen [Mass/Vol] 32 mg/dL High 8-26 [facility] Comment on above: Performed By: #### 1 7794666, [id number], 1699099 ####[facility] (DEFAULT)[address] [place] [address] 55575 Urea nitrogen/Creatinin e [Mass ratio] 34.0 mg/mg High 4.6-16.2 [facility] Comment on above: Performed By: #### 1 8800734, [id number], 6988559 ####[facility] (DEFAULT)[address] [place] [address] 15635 CRPon 10-12-2023 CRP 7.2 mg/dL High <=0.5 [facility] Comment on above: Performed By: #### 2 086951, 6990683 #### [facility] (DEFAULT) [address] [place] [address] 40847 Consent Formson 10-12-2023 Consent Forms [id number] Normal [facility] Nutrition Noteon 10-12-2023 Nutrition Note Pt admitted w/ Rt kn ee pain, recent washout. CT scan noting septic arthritis, IV atb initiated. Pt placed on a Regular diet, so far eating 100%. Admit wt 60.8kg no wt hx on file, denied any wt changes per cabinet finisher assessment. No chewing/swallowing problems identified. Labs reviewed w/ BS ranging 114-161mg/dl, CRP 7.2H, sed rate 74H, alb 2.4L suspect low r/t inflammation. Will monitor intake closely w/ need to supplement as well as changes in labs, wts. Did speak w/ Pt re: potential need for supplements if intake were to decline. Pt reports eating well here but at home her intake was less than usual r/t pain by the time I got into the kitchen and made myself something my knee would just be throbbing and I'd lose my appetite Pt reports taking extra protein at home. To follow. [facility] Pharmacy Noteon 10-12-2023 Pharmacy Note This is a 83 Yearsyo FEMALE presenting with Diagnosis for this visit No Recorded Diagnosis for IP vancomycin dosing per pharmacy to dose protocol. For septic right Knee The patient currently has a serum creatinine of 0.94 and a creatinine clearance of 36.2 mL/min. _ The goal trough based on the above indication and upon chart review is 15-20 mcg/mL. Patient is a new start: The calculated loading dose is vancomycin IV * mg (20 mg/kg (actual body weight) (max 3g) rounded to nearest 250 mg). The calculated maintenance dose is vancomycin IV mg Q hours with the next trough draw on /. The calculated maintenance dose is vancomycin IV 500 mg Q 24 hrs with the next trough draw on 10/15/23 @ 1030 [Electronically Signed on: 10/12/2023 10:24 EST] Andrés Grover [Verified on: 10/12/2023 10:24 EST] Andrés Grover [facility] Procalcitoninon 10-12-2023 Procalcitonin 0.109 ng/mL Low 0.500-1.000 [facility] Comment on above: Performed By: #### 7 [id number] #### [facility] (DEFAULT) [address] [place] [address] Sed Rateon 10-12-2023 Sed Rate 74 mm/hr High 0-20 [facility] Comment on above: Performed By: #### 2 322445, [id number] #### [facility] (DEFAULT) [address] [place] [address] US Echocardiogram Completeon 10-12-2023 US Echocardiogram Complete APPROVED REPORT EXAM: Comprehensive 2D, Doppler, and color-flow Echocardiogram Patient Location: Room/Bed: 224 BSA: 1.63 m2BP: 132/74 mmHg Rhythm: NSR Indications: evaluate for endocarditis, Septic R. Knee Past Med. Hx: HTN Other Information Study Quality: Good Conclusion The left ventricle is normal size. The left ventricular systolic function is normal. The left ventricular ejection fraction is within the normal range. There is normal LV segmental wall motion. There is mild aortic regurgitation. Trace to mild mitral regurgitation. There is moderate tricuspid regurgitation. The right atrial pressure is estimated at 3 mmHg. Right ventricular systolic pressure is estimated at 42 mmHg. There is mild pulmonary hypertension. No valvular vegetation is visualized Left Ventricle The left ventricle is normal size. There is normal left ventricular wall thickness. Sigmoid septum is present. The left ventricular systolic function is normal. The left ventricular ejection fraction is within the normal range. LVEF is 60-65%. There is normal LV segmental wall motion. The left ventricular diastolic function is indeterminatel. E/A reversal is present. Right Ventricle The right ventricle is normal size. The right ventricular systolic function is normal. Atria The left atrium size is normal. The right atrium size is normal. Aortic Valve The aortic valve is normal in structure. There is no aortic valvular stenosis. There is mild aortic regurgitation. Mitral Valve Mitral valve leaflets are mildly thickened. No evidence of mitral valve stenosis. Trace to mild mitral regurgitation. Tricuspid Valve The tricuspid valve is normal in structure. There is no tricuspid valve stenosis. There is moderate tricuspid regurgitation. The right atrial pressure is estimated at 3 mmHg. Right ventricular systolic pressure is estimated at 42 mmHg. There is mild pulmonary hypertension. Pulmonic Valve The pulmonary valve is normal in structure. There is no pulmonic valvular stenosis. Trace pulmonic regurgitation. Great Vessels Aortic root is borderline dilated. Pericardium There is no pericardial effusion. 2D Dimensions RV Minor (Base)3.74 cmLV EDV (Teich) 116.45 mL IVSd 0.88 cm F: 0.6 - 0.9LV ESV (Teich) 21.86 mL LVDd 4.97 cm F: 3.9 - 5.3Left Atrium 3.11 cm F: 2.7 - 3.8 PWd 0.91 cm F: 0.6 - 1.0Sinus of Valsalva3.85 cm LVDs 2.48 (2.1 - 4.0 cm) Sinotubular Junction2.89 cm F: 2.3 - 2.9 LV Vvgw209.22 g LVOT Diameter 2.09 cm IVC1.25 (<= 2.1cm) M-Mode Dimensions Aortic Root3.67 cm F: < 3.8MV EPSS0.30 ( < 0.7 cm) Aortic Cusp Exc2.00 (1.5 - 2.6 cm)TAPSE 2.0 (>1.7) Left Atrium3.88 cm F: 2.7 - 3.8 LV Volume - Method of Disks ([place]'s) Single Plane 2D LV VolumesBiplane 2D LV Volumes LV EDV A4C75.4 mLLV EDV BP71.20 mL F: 46 - 106 LV ESV A4C32.5 mLLV ESV BP27.2 mL LVEF(%) A4C56.9 %LVEF(%) BP61.81 % F: 54 - 74 LV EDV A2C66.3 mLLV EDV BP Index43.68 mL/m2 F: 29 - 61 LV ESV A2C22.2 mLSV (BP)44.01 mL LVEF(%) A2C66.5 %SV (BP) Index26.98 mL/m2 CO BP3.9 L/min Left Atrium Volume Systole (Method of Disks) Single Plane 4 CH 25.69 mLBiplane LA Csesdm67.33 mL Single Plane 2 CH67.19 mLLA ESV Index29.65 mL/m2 Right Atrium Area Systole RA Systolic Area A4C9.10 cm2RA Systolic Vol A4C19.30 mL Aortic Valve AoV Peak Velocity1.30 m/sLVOT Peak Velocity1.04 m/s AO Mean Velocity0.86 m/sLVOT Mean Velocity0.61 m/s AO Peak PG6.80 mmHgLVOT Peak PG4.31 mmHg AO Mean PG3.48 mmHgLVOT Mean PG1.86 mmHg AO V2 VTI22.79 cmLVOT V1 VTI20.10 cm ESTUARDO (Vmax)2.73 rd2WNCC Area 3.43 cm2 ESTUARDO (VTI)3.03 cm2SV (LVOT) 68.96 mL Indexed ESTUARDO (VTI)1.85 cm2/m2AI [place] 2.40 m/s2 AI MUB789.11 ms Mitral Valve MV Max Sfiglezt665.09 m/sMV PHT58.48 ms MV E Max Velocity0.55 m/sMVA (PHT)3.76 cm2 MV A Max Velocity0.67 m/sMR QIW260.58 cm E/A Ratio0.8MR Peak Velocity5.74 m/s MV Decel. Qacj944.67 ms TDI Med e' Velocity5.08 cm/sMV E / Medial e' 10.72 Lat e' Velocity6.45 cm/sMV E / Lateral e' 8.45 TV S'16.13 cm/s Pulmonary Valve PV Peak Velocity0.78 m/sPV Peak PG2.43 mmHg VA End Diastolic Carlos.62.56 m/s PV Mean PG1.46 mmHg Tricuspid Valve TR Peak Velocity3.10 m/sRAP Estimate3.00 mmHg TR Peak PG38.55 alOnMWSH30.55 mmHg Final Signed (Electronic Signature): Marquis Pulido MD 10/12/23 3:45 pm Technologist: ERA [facility] XR Chest 1 View Frontalon XR Chest 1 View Frontal CLINICAL HISTORY: Sepsis. COMPARISON: None available. TECHNIQUE: A portable upright AP radiograph of the chest was obtained. FINDINGS: There is no significant pulmonary infiltrate, cardiomegaly, vascular congestion, pleural effusion, pneumothorax, or other findings of concern identified. IMPRESSION: NO EVIDENCE OF ACTIVE CARDIOPULMONARY DISEASE, BY PORTABLE CHEST RADIOGRAPHY. Final Signed (Electronic Signature): Rigo Brown MD 10/12/23 9:27 am Technologist: SANGEETA SIMPSON [facility] .Auto Diff 10-11-2023 Auto Mineral % 7 % Normal 11-16 [facility] Comment on above: Performed By: #### 2 453344, [id number], 75911634, [id number], [id number], [id number], [id number], 0707776 ####[facility] (DEFAULT)[address] [place] [address] 91140 Baso Abs# 0.1 x10 Normal 0.0-0.2 [facility] Comment on above: Performed By: #### 2 350618, [id number], 89108011, 6532527035, 9478138255, 6969760095, [id number], 9521201 ####[facility] (DEFAULT)[address] [place] [address] 43668 Basophils/100 WBC (Bld) 0.4 % Normal 0.2-2.0 [facility] Comment on above: Performed By: #### 2 251590, [id number], 45837052, 4725321010, 2204915750, 5406114386, 2711067672, 6422502 ####[facility] (DEFAULT)[address] [place] [address] 92919 Eos Abs# 0.0 x10 Normal 0.0-0.4 [facility] Comment on above: Performed By: #### 2 918218, [id number], 01739268, 1061306139, 0434365602, 7864625213, 2869827648, 3044514 ####[facility] (DEFAULT)[address] [place] [address] 41531 Eosinophils/100 WBC (Bld) 0.2 % Low 0.9-4.0 [facility] Comment on above: Performed By: #### 2 115445, [id number], 58852022, 8430289369, 7881349839, 2264408878, 4809836727, 9595204 ####[facility] (DEFAULT)[address] [place] [address] 70716 Lymph Abs# 1.2 x10 Low 1.3-2.9 [facility] Comment on above: Performed By: #### 2 121064, 0859168914, 39897031, 8127264122, 1916171621, 8124517172, 0752865881, 8560043 ####[facility] (DEFAULT)[address] [place] [address] 72569 Lymphocytes/100 WBC (Bld) 8 % Low 14-48 [facility] Comment on above: Performed By: #### 2 922221, [id number], 54425600, 8655823642, 0876674322, 2763154869, 9996770754, 8484978 ####[facility] (DEFAULT)[address] [place] [address] 02286 Mineral Abs# 1.1 x10 High 0.0-0.8 [facility] Comment on above: Performed By: #### 2 [id number], [id number], [id number], [id number], [id number], [id number], [id number], [id number] ####[facility] (DEFAULT)[address] [place] [address] 86231 Neut Abs# 13.6 x10 High 1.5-9.2 [facility] Comment on above: Performed By: #### 2 [id number], [id number], [id number], [id number], [id number], [id number], [id number], [id number] ####[facility] (DEFAULT)[address] [place] [address] 43062 Neutrophils/100 WBC (Bld) 85 % Normal 44-88 [facility] Comment on above: Performed By: #### 2 [id number], [id number], [id number], [id number], [id number], [id number], [id number], [id number] ####[facility] (DEFAULT)[address] [place] [address] Anesthesia Noteon 10-11-2023 Anesthesia Note Patient: ALICIA NGUYỄN Age: 83 years Sex: FEMALE : 1940 Associated Diagnoses: None Author: Sheryl Dennis DO Postoperative Information Post Operative Note: Post Anesthesia Care Unit. Physical Examination Vital Signs 10/11/2023 12:51 EST Systolic Blood Pressure 144 mmHg mmHg Diastolic Blood Pressure 70 mmHg mmHg 10/11/2023 12:50 EST Heart Rate Monitored 76 bpm bpm Respiratory Rate 14 br/min br/min SpO2 99 % % General: Alert and oriented. Respiratory: Respirations are non-labored. Cardiovascular: Normal rate, Regular rhythm. Neurologic: Alert, Oriented. Review / Management Condition: Stable. Assessment Anesthetic outcome No anesthetic complications noted. Plan Transfer/ Discharge: Patient can be discharged from PACU when criteria met. Condition good. [Electronically Signed on: 10/11/2023 13:00 EST] Sheryl Dennis DO [Verified on: 10/11/2023 13:00 EST] Sheryl Dennis DO [facility] Anesthesia Note Patient: ALICIA NGUYỄN Age: 83 years Sex: FEMALE : 1940 Associated Diagnoses: None Author: Sheryl Dennis DO Preoperative Information Anesthesia history: Patient history: No difficult intubation, No malignant hyperthermia. Family history: No malignant hyperthermia, No prior anesthesia problems. Review of Systems Constitutional: Negative. Eye Ear/Nose/Mouth/Throat Respiratory: No shortness of breath, No cough. Cardiovascular: No chest pain. Gastrointestinal: Heartburn, Well controlled with omeprazole. Taken today. . Musculoskeletal: Joint pain. Neurologic: Alert and oriented X4. Health Status Allergies: Allergic Reactions (All) No known allergies Current medications: Home Medications (14) Active acetaminophen-hydrocodone 325 mg-5 mg oral tablet alendronate 70 mg oral tablet 70 mg = 1 tab(s), Oral, qWeek All Day Allergy (Cetirizine) 10 mg oral tablet 10 mg = 1 tab(s), Oral, Daily amLODIPine 5 mg oral tablet 5 mg = 1 tab(s), Oral, Daily aspirin 81 mg oral capsule , Oral, Daily DULoxetine 30 mg oral delayed release capsule 30 mg = 1 cap(s), Oral, HS levothyroxine 50 mcg (0.05 mg) oral tablet 50 mcg = 1 tab(s), Oral, Daily liothyronine 5 mcg oral tablet 5 mcg = 1 tab(s), Oral, Daily Metoprolol Tartrate 50 mg oral tablet 100 mg = 2 tab(s), Oral, Daily Metoprolol Tartrate 50 mg oral tablet 50 mg = 1 tab(s), Oral, Daily Metoprolol Tartrate 50 mg oral tablet 50 mg = 1 tab(s), Oral, HS omeprazole 20 mg oral delayed release capsule 20 mg = 1 cap(s), Oral, BID Osteo Bi-Flex , Oral, Daily triamcinolone 0.1% topical cream 1 dano, Topical, BID Problem list (past medical history): All Problems HTN (hypertension) / SNOMED CT 1180682743 / Confirmed Hypothyroidism / SNOMED CT 63634715 / Confirmed Histories Family History: No family history items have been selected or recorded. Procedure history: Appendectomy (442514509). History of total hysterectomy (5125742606). Knee (078510611). Comments: 10/11/2023 7:23 Radha Siddiqui RN total left Plantar fasciitis (138058844). Comments: 10/11/2023 7:26 Radha Siddiqui RN left Cholecystectomy (83022885). Metatarsal (06534910). Comments: 10/11/2023 7:25 Radha Siddiqui RN right foot Social History Electronic Cigarette/Vaping Assessment Electronic Cigarette Use: Never. Alcohol Assessment Use: Current. Tobacco Assessment Never tobacco user Tobacco Use:. Substance Abuse Assessment Substance use: Never. . Social & Psychosocial Habits Alcohol 10/11/2023 Alcohol Use: Current Substance Use 10/11/2023 Substance use: Never Tobacco 10/11/2023 Smoking tobacco use: Never tobacco user Electronic Cigarette/Vaping 10/11/2023 Electronic Cigarette Use: Never . Physical Examination VS/Measurements Measurements from flowsheet : Measurements 10/11/2023 7:18 EST Height 160.02 cm Weight 60.78 kg Weight Dosing 60.780 kg Body Mass Index 23.74 kg/m2 , Vital Signs (last 24 hrs) Last Charted Heart Rate Peripheral 97 bpm (OCT 11:18) Resp Rate 18 br/min (OCT 11:) SBP H 144 mmHg (OCT 11:) DBP 73 mmHg (OCT 11:) Weight 60.78 kg (OCT 11:) General: Alert and oriented, No acute distress. Airway: Mallampati classification: II (soft palate, fauces, uvula visible). Temporomandibular joint mobility: Good. Mouth: Dentures ( Upper dentures, Partial plate ), Teeth ( Missing ). Neck: Full range of motion. Respiratory: Lungs are clear to auscultation. Cardiovascular: Normal rate, Regular rhythm. Neurologic: Alert, Oriented. Review / Management Laboratory Results Plan [place] [employer]hesiologists#(ASA) physical status classification: Class III. Anesthetic Preoperative Plan Anesthesia: General. . Anesthetic plan, risks, benefits, and alternatives discussed with the patient and/or family. Risks discussed: nausea, vomiting, sore throat, serious complications. Patient verbalized understanding. Family/Guardian present. Informed consent was given. Consent was signed by the patient. [Electronically Signed on: 10/11/2023 09:23 EST] Sheryl Dennis DO [Verified on: 10/11/2023 09:23 EST] Sheryl Dennis DO [facility] BF Cell Cnton 10-11-2023 Appear BF Cloudy [facility] Comment on above: Order Comment: right knee fluid Performed By: #### 6 [id number] #### [facility] (DEFAULT) [address] [place] [address] Cell Cnt BF Type Synovial Fl [facility] Comment on above: Order Comment: right knee fluid Performed By: #### 6 [id number] #### [facility] (DEFAULT) [address] [place] [address] Color BF Red [facility] Comment on above: Order Comment: right knee fluid Performed By: #### 6 [id number] #### [facility] (DEFAULT) [address] [place] [address] RBC BF [id number] Invalid Interpretation Code [facility] Comment on above: Order Comment: right knee fluid Performed By: #### 6 [id number] #### [facility] (DEFAULT) [address] [place] [address] [place] [id number] Invalid Interpretation Code [facility] Comment on above: Order Comment: right knee fluid Performed By: #### 6 [id number] #### [facility] (DEFAULT) [address] [place] [address] 89883 BMP Standardon 10-11-2023 Breakpoint Chem Normal [facility] Comment on above: Performed By: #### 2 801632, [id number], 75598079, 4071470505, 3444018704, 8040708818, 0483953252, 3633130 ####[facility] (DEFAULT)[address] [place] [address] 96439 eGFR Non AA 57 mL/min/1.73m2 Invalid Interpretation Code [facility] Comment on above: Performed By: #### 2 154403, [id number], 91605822, 3448750666, 4001990862, 0547846209, 3576554186, 0890641 ####[facility] (DEFAULT)[address] [place] [address] 97868 eGFR AA >60 Invalid Interpretation Code [facility] Comment on above: Performed By: #### 2 053897, [id number], 69830074, 6230776066, 5314811989, 1460279498, 3630334346, 1728798 ####[facility] (DEFAULT)[address] [place] [address] 28741 Anion gap [Moles/Vol] 13.6 mmol/L Normal 5.0-19.0 [facility] Comment on above: Performed By: #### 2 545648, [id number], 75793659, 8638075355, 8731379974, 6367858352, 7646086675, 4728695 ####[facility] (DEFAULT)[address] [place] [address] 97811 Calcium [Mass/Vol] 9.6 mg/dL Normal 8.9-10.3 [facility] Comment on above: Performed By: #### 2 417223, 5174804305, 49376603, 5732852468, 1335163767, 1930708333, 4007054357, 6898547 ####[facility] (DEFAULT)[address] [place] [address] 45991 Chloride [Moles/Vol] 102 mmol/L Normal 101-111 [facility] Comment on above: Performed By: #### 2 887499, 4035756459, 17400654, 4418698448, 7325536036, 0525359484, 0604122928, 9348561 ####[facility] (DEFAULT)[address] [place] [address] 42261 CO2 [Moles/Vol] 25 mmol/L Normal 21-32 [facility] Comment on above: Performed By: #### 2 424493, 6457276958, 43240579, 6633058210, 9814318207, 9482644237, 3571112775, 7946721 ####[facility] (DEFAULT)[address] [place] [address] 87212 Creatinine [Mass/Vol] 0.93 mg/dL Normal 0.60-1.30 [facility] Comment on above: Performed By: #### 2 760155, 1589237956, 26781132, 1149563373, 3011239558, 5163312783, 7099806755, 1210832 ####[facility] (DEFAULT)[address] [place] [address] 60858 Glucose [Mass/Vol] 114.0 mg/dL Normal 74.0-118.0 [facility] Comment on above: Performed By: #### 2 830826, 5310088630, 09106784, 3786545457, 8265887512, 1374314153, 5439109810, 6174769 ####[facility] (DEFAULT)[address] [place] [address] 65134 Osmolality 279 mOsm/L Invalid Interpretation Code [facility] Comment on above: Performed By: #### 2 098260, [id number], 94896226, 2706268587, 6143199901, 5450464403, 1274812258, 2870551 ####[facility] (DEFAULT)[address] [place] [address] 79630 Potassium [Moles/Vol] 4.6 mmol/L Normal 3.6-5.1 [facility] Comment on above: Performed By: #### 2 241906, 3572537367, 91147740, 8214562110, 0110318960, 2599423670, 1645205899, 3563395 ####[facility] (DEFAULT)[address] [place] [address] 52417 Sodium [Moles/Vol] 136.0 mmol/L Normal 136.0-144.0 [facility] Comment on above: Performed By: #### 2 149260, 6464029873, 75558891, 3244912175, 6467732236, 5534657579, 3541306611, 7052658 ####[facility] (DEFAULT)[address] [place] [address] 63976 Urea nitrogen [Mass/Vol] 30 mg/dL High 8-26 [facility] Comment on above: Performed By: #### 2 937896, 0998689439, 06148169, 2515615925, 9498490872, 4280474047, 9746225105, 9917936 ####[facility] (DEFAULT)[address] [place] [address] 49766 Urea nitrogen/Creatinin e [Mass ratio] 32.2 mg/mg High 4.6-16.2 [facility] Comment on above: Performed By: #### 2 203836, 2629175325, 20685953, 9544025173, 4896024525, 9460448927, 7015660044, 3414897 ####[facility] (DEFAULT)[address] [place] [address] 12502 Body Fluid Diffon 10-11-2023 BF Bands % 2 Invalid Interpretation Code [facility] Comment on above: Order Comment: Right knee fluidVerbal order per Kelly Long Performed By: #### 2 [id number] ####[facility] (DEFAULT)[address] [place] [address] BF Baso % 0 Invalid Interpretation Code [facility] Comment on above: Order Comment: Right knee fluidVerbal order per Kelly Long Performed By: #### 2 [id number] ####[facility] (DEFAULT)[address] [place] [address] BF Eos % 0 Invalid Interpretation Code [facility] Comment on above: Order Comment: Right knee fluidVerbal order per Kelly Long Performed By: #### 2 [id number] ####[facility] (DEFAULT)[address] [place] [address] BF Lymph % 5 Invalid Interpretation Code [facility] Comment on above: Order Comment: Right knee fluidVerbal order per Kelly Long Performed By: #### 2 [id number] ####[facility] (DEFAULT)[address] [place] [address] BF Mineral % 0 Invalid Interpretation Code [facility] Comment on above: Order Comment: Right knee fluidVerbal order per Kelly Long Performed By: #### 2 [id number] ####[facility] (DEFAULT)[address] [place] [address] BF Segs % 93 Invalid Interpretation Code [facility] Comment on above: Order Comment: Right knee fluidVerbal order per Kelly Long Performed By: #### 2 [id number] ####[facility] (DEFAULT)[address] [place] [address] CBC w/ Auto Diffon 3 Erythrocyte distribution width (RBC) [Ratio] 15.3 % High 11.5-15.0 [facility] Comment on above: Performed By: #### 2 552112, 9221820082, 09612725, 8732327732, 9349477745, 9668865656, 1252674263, 5333777 ####[facility] (DEFAULT)[address] [place] [address] Hematocrit (Bld) [Volume fraction] 36.1 % Normal 33.7-40.4 [facility] Comment on above: Performed By: #### 2 470564, 4209020439, 20136656, 0232252806, 6933847909, 8129853166, 0682872271, 7223273 ####[facility] (DEFAULT)[address] [place] [address] Hemoglobin (Bld) [Mass/Vol] 11.8 g/dL Normal 11.3-15.9 [facility] Comment on above: Performed By: #### 2 915902, 1595064620, 02719891, 0406642155, 8651788025, 7193874502, 2839045082, 5693753 ####[facility] (DEFAULT)[address] [place] [address] Man Diff? Auto Invalid Interpretation Code [facility] Comment on above: Performed By: #### 2 849555, 8387309764, 90961976, 6516720241, 3283797111, 5979738333, 3521846721, 4282468 ####[facility] (DEFAULT)[address] [place] [address] MCH (RBC) [Entitic mass] 29 pg Normal 24-34 [facility] Comment on above: Performed By: #### 2 922004, 0967561056, 57502910, 2657325465, 9266913556, 1791410556, 8168745052, 8723034 ####[facility] (DEFAULT)[address] [place] [address] MCHC (RBC) [Mass/Vol] 33 g/dL Normal 26-37 [facility] Comment on above: Performed By: #### 2 871455, 7004040968, 34799035, 0973819312, 5893256607, 6334357402, 0981852404, 8128828 ####[facility] (DEFAULT)[address] [place], [place] [address] MCV (RBC) [Entitic vol] 89 fL Normal 81-100 [facility] Comment on above: Performed By: #### 2 712062, 4718198935, 85594198, 2675728084, 2289041847, 9460188886, 2995090681, 3744963 ####[facility] (DEFAULT)[address] [place] [address] 14296 Platelet 492 x10 High 138-427 [facility] Comment on above: Performed By: #### 2 225153, 6520567542, 36256951, 3049024091, 4705103048, 5808595951, 8719146116, 5292802 ####[facility] (DEFAULT)[address] [place] [address] 01620 Platelet mean volume (Bld) [Entitic vol] 6.2 fL Low 6.3-10.2 [facility] Comment on above: Performed By: #### 2 565208, 3089355305, 92286212, 8226218353, 0943684280, 2514431502, 2788547706, 7456582 ####[facility] (DEFAULT)[address] [place] [address] 48283 RBC 4.05 x10 Normal 3.70-5.30 [facility] Comment on above: Performed By: #### 2 710920, 4506608688, 88810346, 4785871880, 6005362358, 4804277664, 9253315973, 8835116 ####[facility] (DEFAULT)[address] [place] [address] 45012 WBC 16.0 x10 High 3.5-10.5 [facility] Comment on above: Result Comment: Slid e Reviewed Performed By: #### 2 899458, 7085588399, 45507164, 6114121280, 4925934827, 2849612850, 5529213295, 8005496 ####[facility] (DEFAULT)[address] [place] [address] 19854 CRPon 10-11-2023 CRP 6.1 mg/dL High <=0.5 [facility] Comment on above: Performed By: #### 2 802711 ####[facility] (DEFAULT)[address] [place] [address] Lower Extremity w/ Contra st [place] 10-11-2023 CT Lower Extremity w/ Contrast Right CLINICAL HISTORY: Generalized pain and swelling. Evaluate for abscess. Status post right knee arthroscopy today. COMPARISON: None available. TECHNIQUE: Multiple contiguous axial images of the right knee were obtained following IV administration of 100 mL Omnipaque 350. Multiplanar reformats and volume rendered images were acquired. All CT scans at this facility use dose modulation, iterative reconstruction, and/or weight based dosing when appropriate to reduce radiation dose to as low as reasonably achievable. FINDINGS: A small to moderate size joint effusion is present with surrounding soft tissue thickening and marginal enhancement, suspicious for septic arthritis. An approximately 1.6 cm densely calcified loose body is noted within the lateral recess, with sessile synovial calcifications medially. An approximately 3.5 x 1 cm nonspecific hypodense collection is present within the central aspect of the popliteus muscle, which may be cystic degeneration rather than an abscess. No other organized soft tissue fluid collection, fracture, gross bone destruction, or myotendinous disruption. Advanced osteoarthritic changes predominantly involve the patellofemoral compartment. A small amount of soft tissue emphysema adjacent to the lateral femoral condyle anteriorly is likely related to recent surgery. IMPRESSION: Findings suspicious for septic arthritis. Approximately 1.6 cm calcified loose body in the lateral joint recess. Nonspecific approximately 3.5 x 1 cm fluid collection within the popliteus muscle, as noted. Osteoarthrosis. Final Signed (Electronic Signature): Rigo Brown MD 10/11/23 4:31 pm Technologist: Jeanette LUKE [facility] Extra SSTon 10-11-2023 Tube Collected Yes Invalid Interpretation Code [facility] Comment on above: Performed By: #### 2 181282, [id number], 89965822, 3676452846, 9221311783, 0893807798, 4794438354, 1450002 ####[facility] (DEFAULT)[address] [place] [address] MAGR Intraoperative Recordon 10-11-2023 MAGR Intraoperative Record MAGR Intra-Op Record Summary Primary Physician: JOB AGUILAR DO Finalized Date/Time: 10/11/23 14:40:54 Pt. Name: MARGARETALICIA FARIAS/Sex: 1940 FEMALE Med Rec #: [id number] Physician: JOB AGUILAR DO Financial #: [id number] Pt. Type: I Room/Bed: [facility] Admit/Disch: 10/11/23 06:57:39 - Institution: Case Times MAGR Entry 1 Patient In Room Time 10/11/23 11:40:00 Out Room Time 10/11/23 12:53:00 Anesthesia Start Time 10/11/23 11:40:00 Stop Time 10/11/23 12:54:00 Surgery Start Time 10/11/23 12:10:00 Stop Time 10/11/23 12:49:00 Last Modified By: Sandra Shepard RN 10/11/23 12:55:35 Case Attendance MAGR Entry 1 Entry 2 Entry 3 Case Attendee JOB AGUILAR David DO Long, Barbara RN Role Performed Surgeon - Primary Anesthesiologist of Engine Assembler Record Time In 10/11/23 11:40:00 10/11/23 11:40:00 10/11/23 11:40:00 Time Out 10/11/23 12:48:00 10/11/23 12:53:00 10/11/23 12:53:00 Procedure Arthroscopy Knee(Right) Arthroscopy Knee(Right) Arthroscopy Knee(Right) Last Modified By: Sandra Shepard RN, Barbara RN Long, Barbara RN 10/11/23 12:55:35 10/11/23 12:55:35 10/11/23 12:55:35 Entry 4 Entry 5 Case Attendee Gloria Saldaña CST, CST, Lauren M CSFYessica CSFA Role Performed Scrub Personnel Political Analyst Time In 10/11/23 11:40:00 10/11/23 11:40:00 Time Out 10/11/23 12:53:00 10/11/23 12:53:00 Procedure Arthroscopy Knee(Right) Arthroscopy Knee(Right) Last Modified By: Sandra Shepard RN, Barbara RN 10/11/23 12:55:35 10/11/23 12:55:35 Surgical Procedures MAGR Pre-Care Text: A.20 Verifies operative procedure, surgical site, and laterality Im.150 Develops individualized plan of care Entry 1 Procedure Arthroscopy Knee Primary Procedure Yes Primary Surgeon JOB AGUILAR DO Modifiers Right Surgeon Comment RIGHT KNEE SCOPE- Start 10/11/23 12:10:00 diagnostic right knee arthroscopy with synoviectomy Stop 10/11/23 12:49:00 Anesthesia Type General Surgical Service Orthopedics Wound Class Infected Technique Details Closure Technique Primary Entire procedure No was performed via laparoscope or robotic assistance Last Modified By: Sandra Shepard RN 10/11/23 12:55:37 Post-Care Text: O.730 The patient's care is consistent with the individualized perioperative plan of care General Case Data MAGR Pre-Care Text: A.350.1 Classifies surgical wound Entry 1 Case Information OR MAGR OR 01 Case Level Level 4 Wound Class Infected Specialty Orthopedics ASA Class 3 Diagnosis Preop Diagnosis PYARTHROSIS RIGHT KNEE Postop Same As Preop Yes Postop Diagnosis PYARTHROSIS RIGHT KNEE Blunt or No Is the procedure No penetrating injury considered occured prior to Emergent/Urgent? the start of the procedure: Last Modified By: Sandra Shepard RN 10/11/23 12:18:25 Post-Care Text: O.760 Patient receives consistent and comparable care regardless of the setting Time Out MAGR Entry 1 Procedure(s) Arthroscopy Knee(Right) Time Out Checklist Verifications Patient Verified Yes Allergies Verified Yes Procedure to be Yes Presence of Yes Performed Verified Necessary with Consent Procedural Equipment, Devices, and Implants Verified Site Verification, Yes Site Marking, Site Marking Alternative, and/or Site Marking Exception in Accordance with Facility Policy Anesthesia Review Antibiotic Received n/a All Anesthesia Yes Within an Concerns Addressed Appropriate Time Interval Prior to Surgical Incision Surgeon Review Anticipated Blood Yes Loss Risk, Expected Case Duration, and Critical and Non-Routine Steps to be Performed Addressed Nurse Review Team Introductions Yes Equipment Concerns Yes Completed Addressed Fall Risk Concerns Yes Fire Risk Yes Addressed Assessment Completed and Interventions Performed Skin Assessment Yes Diagnostic and Yes Concerns Addressed Radiological Test Results Displayed are Appropriate and Labeled Skin Prep Allowed Yes Sterilization Yes to Dry Prior to Concerns Addressed Incision Venous n/a Laser Safety n/a Thromboembolism Measures Implemented Prophylaxis Ordered Latex Precautions Yes Other Concerns Yes Implemented Addressed Time Out JOB AGUILAR DO, Time Out Time 10/11/23 12:09:00 Participants Sheryl Dennis DO, Long, Barbara RN, Piotr KETTLE GIRL, Gloria MARTINEZ CSFA, Rina Muñoz CSFA Last Modified By: Sandra Shepard RN 10/11/23 12:34:19 Patient Positioning MAGR Pre-Care Text: A.280 Identifies baseline musculoskeletal status Im.40 Positions the patient Im.80 Applies safety devices Entry 1 Procedure Arthroscopy Knee(Right) Body Position Supine Left Arm Position Extended on padded arm Right Arm Position Extended on padded arm board board Left Leg Position Dangling Right Leg Position Dangling Press Points Checked Yes Positioning Device Pillow, Safety Strap Outcome Met (O.80) Ye (more content not included)... [facility] PACU Record MAGR PACU Record [facility] Primary Physician: JOB AGUILAR DO Finalized Date/Time: 10/11/23 13:56:49 Pt. Name: ALICIA NGUYỄN/Sex: 1940 FEMALE Med Rec #: [id number] Physician: JOB AGUILAR DO Financial #: [id number] Pt. Type: D Room/Bed: [facility] Admit/Disch: 10/11/23 06:57:39 - Institution: PACU Case Times MAGR Entry 1 In PACU I 10/11/23 12:55:00 Discharge from PACU 10/11/23 13:40:00 I Last Modified By: Radha Seo RN 10/11/23 13:56:45 Finalized By: Radha Seo RN Document Signatures Signed By: Radha Seo RN 10/11/23 13:56 [facility] 12-12-2022 MAGR Preoperative Record MAGR Pre-Op Record Summary Primary Physician: JOB AGUILAR DO Finalized Date/Time: 10/11/23 12:17:03 Pt. Name: ALICIA NGUYỄN/Sex: 1940 FEMALE Med Rec #: [id number] Physician: JOB AGUILAR DO Financial #: [id number] Pt. Type: D Room/Bed: / Admit/Disch: 10/11/23 06:57:39 - Institution: Pre-Op Case Times MAGR Pre-Care Text: Patient will be optimally prepared for surgery. Patient is free from s/s of injury. Provide information to patient/family related to plan of care. Verify patient allergies. Confirm identity and verify consent before the operative or invasive procedure. Entry 1 Patient Arrival Time 10/11/23 07:07:00 Preop Departure 10/11/23 11:38:00 Last Modified By: Sandra Shepard RN 10/11/23 12:17:01 Post-Care Text: Patient is prepared mentally and physically and is ready for surgery. The patient remains free from s/s of injury. Patient/family express understanding of plan of care and participate in decisions affecting his or her perioperrative plan of care. Allergies documented appropriately. Patient identifiers and consent correct. General Comments: Pt arrives to w ambulatory. PT denies cp, sob, cough or flu like symptoms. PT denies pacemaker/defibillator or sleep apnea. Finalized By: Sandra Shepard RN Document Signatures Signed By: Sandra Shepard RN 10/11/23 12:17 [facility] Pharmacy Noteon 10-11-2023 Pharmacy Note The following medica tions(s) has been reviewed for renal dose adjustment per P &T protocol based on the patient's current creatinine clearance: Medication: Enoxaparin 30mg q12h Estimated CrCl: 36.58 ml/min _ Action: No change required Changes Made: [Electronically Signed on: 10/11/2023 14:07 EST] Jamal Butler [Verified on: 10/11/2023 14:07 EST] Jamal Butler The following medications(s) has been reviewed for renal dose adjustment per P &T protocol based on the patient's current creatinine clearance: Medication: Enoxaparin 40mg QD Estimated CrCl: 44.77 ml/min _ Action: No change required Changes Made: [Electronically Signed on: 10/13/2023 09:39 EST] Jamal Butler Normal [facility] Sed Rateon 10-11-2023 Sed Rate 80 mm/hr High 0-20 [facility] Comment on above: Performed By: #### 2 [id number], [id number], [id number], [id number] ####[facility] (DEFAULT)[address] [place] [address] CREATININEon 04-04-2023 Creatinine [Mass/Vol] 1.25 mg/dL Critically high 0.55-1.02 [facility] Comment on above: Performed By: #### C HEIDI #### [facility] [address] [address] [address] Lolita Alvarado EGFR-AF BENINESE 49 mL/min/1.73m2 Critically low >=60 [facility] Comment on above: Performed By: #### C HEIDI #### [facility] [address] [address] [address] Lolita Alvarado EGFR-NON AF BENINESE 41 mL/min/1.73m2 Critically low >=60 [facility] Comment on above: Performed By: #### C HEIDI #### [facility] [address] [address] [address] CHEST W CONon 04-04-2023 CT CHEST W CON EXAMINATION: CT CHES T W CON HISTORY: Solitary nodule of lung , follow-up COMPARISON: CT chest 12/23/2022, 10/23/2022 TECHNIQUE: Multi-planar CT images were created with IV contrast. Axial, Coronal, and Sagittal images. Dose reduction techniques were achieved by using automated exposure control and/or adjustment of mA and/or kV according to patient size and/or use of iterative reconstruction technique. FINDINGS: LUNGS: Stable 21 x 13 x 15 mm geographic shaped opacity within posterior right upper lobe adjacent the superior extent of the major fissure. A few small scattered granulomas. Trace amount of atelectasis within the dependent lung regions and borderline mild bronchiectasis. PLEURA: No mass, effusion, or pneumothorax. VASCULATURE: No abnormality. KILEY: No mass or adenopathy. MEDIASTINUM: No mass or adenopathy. CARDIAC: No enlargement, pericardial thickening, or significant calcification. AORTA: No aneurysm or dissection. CHEST WALL: No mass or axillary adenopathy. BONES: Stable levoscoliosis of thoracic spine. LIMITED ABDOMEN: Stable right renal cyst. Limited images of the upper abdomen. OTHER: Negative. IMPRESSION: 1. Stable geographic shaped opacity within posterior left upper lobe, stable for past 18 months. Consider follow-up imaging in one year to document stability for over a two-year period. Electronically authenticated by: RIGO WHITTAKER Date: 2023-04-04 16:18 Normal [facility] CT CHEST W CONon 12-26-2022 CT CHEST W CON EXAMINATION: CT CHES T W CON HISTORY: Right lung structure ; follow-up right upper lung opacity COMPARISON: CT chest 10/23/2022 TECHNIQUE: Multi-planar CT images were created with IV contrast. Axial, Coronal, and Sagittal images. Dose reduction techniques were achieved by using automated exposure control and/or adjustment of mA and/or kV according to patient size and/or use of iterative reconstruction technique. FINDINGS: LUNGS: Stable geographic shaped 21 x 15 x 13 mm opacity within right upper lobe posterior segment. A few scattered granulomas. PLEURA: No mass, effusion, or pneumothorax. VASCULATURE: No abnormality. KILEY: No mass or adenopathy. MEDIASTINUM: No mass or adenopathy. CARDIAC: No enlargement, pericardial thickening, or significant calcification. AORTA: No aneurysm or dissection. CHEST WALL: No mass or axillary adenopathy. BONES: Mild scoliotic curvature of thoracic spine. No lesion or fracture. LIMITED ABDOMEN: No suspicious findings Limited images of the upper abdomen. OTHER: Negative. IMPRESSION: 1. Suspicious, geographic shaped opacity within the right upper lobe of uncertain etiology; stable over past 3 months. Additional follow-up in 3 months is recommended. Follow-up should be performed at 3, 6, 12, and 24 months after initial discovery to document stability over a two-year period. Electronically authenticated by: RIGO WHITTAKER Date: 2022-12-26 09:16 Normal [facility] CREATININEon 12-23-2022 Creatinine [Mass/Vol] 0.85 mg/dL Normal 0.55-1.02 [facility] Comment on above: Performed By: #### C HEIDI #### [facility] [address] [address] [address] Lolita Alvarado EGFR-AF BENINESE >60 Normal >=60 [facility] Comment on above: Performed By: #### C HEIDI #### [facility] [address] [place], [place] [address] Dr. Lolita Alvarado EGFR-NON AF BENINESE >60 Normal >=60 [facility] Comment on above: Performed By: #### C HEIDI #### [facility] [address] [place], [place] [address] Dr. Lolita Alvarado Glucose Glucometer (BldC) [M ass/Vol]Ordered By: Santiago Otto on 11-01-2022 Glucose [Mass/Vol] 97 mg/dL [facility] Comment on above: Random Glucose Refer ence Range is dependent on time and content of last meal. Glucose of more than 200 mg/dL in a nonstressed, ambulatory subject supports the diagnosis of Diabetes Mellitus. Glucose Poct Glucometerson 1 01-02-2022 Glucose [Mass/Vol] 97 mg/dL Normal [facility] Comment on above: Result Comment: [place] om Glucose Reference Range is dependent on time and content of last meal. Glucose of more than 200 mg/dL in a nonstressed, ambulatory subject supports the diagnosis of Diabetes Mellitus. PERFORMED BY: [place] [address] PATHOLOGIST MECHANICAL MAINTENANCE ENGINEER NEW MEDEIROS M.D. Performed By: #### G LUJOLIE #### Point of Care testing , PET tumor init tx strat sb-m ton 11-01-2022 PET tumor init tx strat sb-mt [facility] Main [place] [address] [place] [address] Nuclear Medicine Report Signed Patient: Alicia Nguyễn MR#: [id number] : 1940 Acct:[id number] Age/Sex: 82 / F ADM Date: 11/01/22 Loc: Room: Type: [facility] Attending Dr: Santiago Otto MD Copies to: MD Candi Mendosa MD Ordering Provider: Santiago Otto MD Date of Service: 11/01/22 PET/PET tumor init tx strat sb-mt: LUNG NODULE PET/CT WITH FUSION CLINICAL DATA: Right upper lobe nodule on outside CT. COMPARISON: CT 10/23/2022 and PET/CT 05/21/2013 Following the intravenous administration of 13.25 mCi of FDG, SPECT imaging in 3 planes was performed from the level the orbits through the groin. Patient's blood glucose level at the time of injection was 97 mg/dL. Spiral unenhanced CT was also performed for anatomic localization. The PET and CT images were fused. This CT exam was performed using one or more following dose reduction techniques: Automated exposure control, adjustment of the mA and/or kV according to patient size, or use of iterative reconstruction technique. NECK: No enlarged or hypermetabolic lymph nodes are present. There is mild physiologic uptake at the salivary glands and vocal cords. There is also physiologic muscular activity, asymmetric on the left. CHEST: There is redemonstration of a nodular opacity adjacent to the top of the major fissure within the posterior right upper lobe. This does not show pathologic FDG uptake. No other areas of abnormal lung uptake are identified. No mediastinal or hilar adenopathy is seen. ABDOMEN/PELVIS: No hypermetabolic hepatic lesions are noted. There is mild asymmetric increased adrenal gland uptake on the left with SUV of approximately 2.7 - 2.8. The CT images do not show significant associated nodularity and the significance is therefore uncertain. There are no enlarged or hypermetabolic abdominal or pelvic lymph nodes. There is physiologic activity involving the urinary tract and bowel. There are sigmoid diverticula. Patient has a right renal cyst. PET/PET tumor init tx strat sb-mt IMPRESSION: NON-HYPERMETABOLIC RIGHT UPPER LOBE OPACITY. FOLLOW-UP CT IS SUGGESTED TO DETERMINE IF THIS RESOLVES. MILD ASYMMETRIC LEFT ADRENAL GLAND FDG UPTAKE, UNDETERMINED SIGNIFICANCE. Impression dictated by: Candi Leigh M.D.11/01/2022 1:32 PM Dictation Location: [place] [address] Transcribed By: [facility] 11/01/22 1332 Dictated By: Candi Leigh MD 11/01/22 1300 Signed By: 11/01/22 1332 Normal [facility] CT CHEST W CONon 10-24-2022 CT CHEST W CON EXAMINATION: CT CHES T W CON HISTORY: Opacity ; right upper lobe opacity on CT T-spine; chronic cough COMPARISON: CT T-spine 10/16/2022 TECHNIQUE: Multi-planar CT images were created with IV contrast. Axial, Coronal, and Sagittal images. Dose reduction techniques were achieved by using automated exposure control and/or adjustment of mA and/or kV according to patient size and/or use of iterative reconstruction technique. FINDINGS: LUNGS: Geographic shaped 21 x 16 x 12 mm opacity within right upper lobe posterior segment. No additional lung lesions or suspicious nodules. A few small calcified granulomas. PLEURA: No mass, effusion, or pneumothorax. VASCULATURE: No abnormality. KILEY: No mass or adenopathy. MEDIASTINUM: No mass or adenopathy. CARDIAC: No enlargement, pericardial thickening, or significant calcification. AORTA: No aneurysm or dissection. CHEST WALL: No mass or axillary adenopathy. BONES: Scoliotic curvature of lumbar spine. LIMITED ABDOMEN: Right renal cyst. No suspicious findings Limited images of the upper abdomen. OTHER: Negative. IMPRESSION: 1. Right upper lobe geographic shaped 21 mm mass of uncertain etiology, but suspicious for malignancy. Comparison to prior studies if available at another institution is recommended. Otherwise PET imaging should be considered for further evaluation at this time. Alternatively, follow-up CT chest without contrast in 3 months to evaluate for change. Electronically authenticated by: RIGO WHITTAKER Date: 2022-10-23 22:21 Normal [facility] CREATININEon 10-23-2022 Creatinine [Mass/Vol] 1.08 mg/dL Critically high 0.55-1.02 [facility] Comment on above: Performed By: #### C HEIDI #### [facility] [address] [place], [place] [address] Dr. Lolita Alvarado EGFR-AF BENINESE 59 mL/min/1.73m2 Critically low >=60 [facility] Comment on above: Performed By: #### C HEIDI #### [facility] [address] [place], [place] [address] Dr. Lolita Alvarado EGFR-NON AF BENINESE 48 mL/min/1.73m2 Critically low >=60 [facility] Comment on above: Performed By: #### C HEIDI #### [facility] [address] [address] [facility] T[facility] WO CON Begin Addendum # 1 Guidance for the geographic shaped opacity within the right upper lobe was inadvertently left out of impression of the report; I apologize for any inconvenience is caused. IMPRESSION: 4. There is a 2.0 cm geographic shaped opacity within right upper lobe superior segment; acute infiltrates versus scarring versus neoplasm. CT chest with IV contrast recommended for evaluation of remainder of lungs. Comparison to prior studies if available at another institution is recommended. Original Report EXAMINATION: CT TSPINE WO CON HISTORY: Pain in thoracic spine ; chronic upper back pain; no known injury COMPARISON: No relevant comparison available. TECHNIQUE: Axial, Coronal, and Sagittal CT images obtained without and with IV contrast. Dose reduction techniques were achieved by using automated exposure control and/or adjustment of mA and/or kV according to patient size and/or use of iterative reconstruction technique. FINDINGS: PARASPINAL AREA: Geographic shaped 2.0 x 1.1 x 1.6 cm opacity within posterior segment right upper lobe. DISCS: Moderate marked disc space narrowing C6-C7 through T2-3, with moderate right foramen narrowing C6-7 and bilaterally at T1-T2 and T2-3. Moderate disc space narrowing and marked right foramen narrowing T10-11. BONES: Left convex curvature thoracic spine, 16 degrees. Grade 1 left lateral listhesis of L1 on 2. No bone lesion or fracture. No significant degenerative facet arthropathy. OTHER: Negative. IMPRESSION: 1. Multilevel degenerative disc disease as detailed above. 2. Scoliotic curvature thoracic spine. 3. No acute abnormality. Normal [facility] General Surgery Office/Clini c Noteon 09-18-2022 General Surgery Office/Clinic Note Chief Complaint EGD and colonoscopy follow up HPI Staff 13 day post operative follow up post colonoscopy and EGD with antral biopsy. 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 Review of Systems ROS - Provider Constitutional: no fever, no sweats, no weight loss. Eyes: no glasses, no blurred vision, no visual loss. ENMT: no dentures, no hoarseness, no swallowing difficulties, no hearing loss, no ear infection(s), no nose bleeds. Cardiovascular: normal blood pressure, no chest pain, regular heartbeat, no heart murmur. Respiratory: no shortness of breath, no cough, no asthma, no wheezing. Gastrointestinal: no nausea, no vomiting, no diarrhea, no constipation, no blood in stool, no change in bowel habits, no abdominal pain, no hepatitis. Genitourinary: no kidney stones, no urine infection, no dysuria. Musculoskeletal: no pain, no weakness. Skin: no changing moles, no rash, no skin lumps. Neurologic: no seizures, no epilepsy, no headache. Psychiatric: no emotional or psychiatric problem. Heme/Lymph: no bleeding problems, no anemia, no blood clots, no transfusions. Allergy/Immunologic: no swollen lymph nodes/glands, no IV drug abuse. Other: Additional ROS info: Except as noted in the above Review of Systems and in the History of Present Illness, all other systems have been reviewed and are negative or noncontributory. Assessment/Plan 1. Iron deficiency anemia (D50.9: Iron deficiency anemia, unspecified) possibly due to Dieulafoy's lesion; recommend f/u with Dr Otto to monitor h/h; if persistent anemia, may require repeat ba enema(normal in 2016), call with problems/questions. 2. Dark stools (R19.5: Other fecal abnormalities) see # 1 Follow-up No qualifying data available Problem List/Past Medical History Ongoing Bigeminy BMI 26.0-26.9,adult Dark stools Edema History of gastritis History of TIA (transient ischemic attack) HTN (hypertension) IBS (irritable bowel syndrome) Insomnia Iron deficiency anemia Left leg DVT Lumbar scoliosis Osteopenia Positive fecal occult blood test Premature atrial beats Thoracic spinal stenosis Varicose veins of legs Venous insufficiency Historical No qualifying data Procedure/Surgical History Colonoscopy (08/16/2022), EGD - Esophagogastroduodenoscopy (08/16/2022), Colonoscopy (11/01/2016), EGD - Esophagogastroduodenoscopy (11/01/2016), Colonoscopy (02/28/2012), Colonoscopy (07/28/2009), Appendectomy, Arthroplasty of knee, Arthroscopy of knee, Cataract extraction, Cataract extraction, Cholecystectomy, Suspension of bladder. Medications amLODIPine 5 mg Tab, 10 mg= 2 tab(s), Oral, Daily aspirin 81 mg Oral EC Tab, 81 mg= 1 tab(s), Oral, Daily calcium (as carbonate) 600 mg oral tablet, 1200 mg= 2 tab(s), Oral, Daily cyclobenzaprine 10 mg Tab, 10 mg= 1 tab(s), Oral, TID, PRN Diclofenac 75mg Tab-DR, 1 tab(s), Oral, BID Fosamax 70 mg oral tablet, 70 mg= 1 tab(s), Oral, qWeek levothyroxine 50 mcg (0.05 mg) Tab, 50 mcg= 1 tab(s), Oral, Daily liothyronine 5 mcg Tab, 5 mcg= 1 tab(s), Oral, Daily lisinopril 20 mg Tab, 40 mg= 2 tab(s), Oral, Daily Metoprolol tartrate 50 mg Tab nitroglycerin 0.4 mg sublingual Tab, 0.4 mg= 1 tab(s), SubLingual, q5min, PRN omeprazole 20 mg Cap-DR, 20 mg= 1 cap(s), Oral, BID Osteo Bi-Flex, 1 tab(s), Oral, Daily temazepam 15 mg Cap, 15 mg= 1 cap(s), Oral, Once a day (at bedtime) triamcinolone Top 0.1% Crm, 1 dano, Topical, BID Allergies No Known Allergies No Known Medication Allergies Social History Alcohol - Denies Alcohol Use, 06/13/2022 Substance Abuse - Denies Substance Abuse, 06/13/2022 Tobacco Never (less than 100 in lifetime) Tobacco Use:. Never Smokeless Tobacco Use:., 06/13/2022 Family History Cancer: Sister and Brother. Cirrhosis of liver: Father. Heart disease: Mother. [facility] Comment on above: Result Comment: Elec tronically Signed By: EFRAIN LONGORIA, Arie Zelaya\Date and Time Signed: 09/18/22 16:34 EST MRI LSPINE WO CONon 09-13-20 MRI LSPINE WO CON EXAMINATION: MRI LSP INE WO CON HISTORY: Lumbar radiculopathy COMPARISON: No relevant comparison available. TECHNIQUE: A variety of imaging planes and parameters were utilized for visualization of suspected pathology. FINDINGS: For the purposes of numbering, sagittal T2 image # 7 extends from the T10 vertebral body superiorly to the S2-S3 level inferiorly. PARASPINAL AREA: Normal with no visible mass. 3 cm right renal cyst BONES: Rotatory dextroscoliosis centered at L2-L3 CORD/CAUDA EQUINA: Normal caliber, contour, and signal intensity. DISC LEVELS: 12-L1: Early degenerative disc disease is present without focal protrusion or neural impingement. L1-L2: Disc desiccation. Moderate posterior broad-based disc protrusion extending up to 2.5 mm. Ligamentum flavum hypertrophy and mild facet osteoarthropathy. No central or foraminal stenosis L2-L3: Disc collapse with endplate sclerosis left greater than right. Moderate diffuse disc/osteophyte complex. Moderate ligamentum flavum hypertrophy. No central or right foraminal stenosis. Mild narrowing of the left neural foramen L3-L4: Moderate to severe disc space narrowing and endplate sclerosis left greater than right. Moderate diffuse disc/osteophyte complex. Ligamentum flavum hypertrophy and facet osteoarthropathy. No central canal or right foraminal stenosis. Moderate narrowing of the left neural foramen L4-L5: Moderate disc space narrowing on the right side with endplate sclerosis. Mild to moderate diffuse disc/osteophyte complex. No central canal or left foraminal stenosis. Mild narrowing of the right neural foramen. L5-S1: Disc desiccation. Mild diffuse disc bulge. No central canal or left foraminal stenosis. Mild narrowing of the right neural foramen IMPRESSION: Rotatory dextroscoliosis with moderate diffuse degenerative changes resulting in foraminal stenosis at multiple levels as detailed above Electronically authenticated by: SHERYL SRINIVASAN Date: 2022-09-13 08:21 Normal [facility] Ambulatory Visit Summaryon 1 Ambulatory Visit Summary GOPIALICIA Yessica :1940 Visit Date:08/29/2022 Ambulatory Visit Instructions Your Care Team Attending Physician - EFRAIN LONGORIA, Arie Love Primary Care Physician - Santiago Otto MD This Is Your Medications List alendronate (Fosamax 70 mg oral tablet) amlodipine (amLODIPine 5 mg Tab) aspirin (aspirin 81 mg Oral EC Tab) calcium carbonate (calcium (as carbonate) 600 mg oral tablet) chondroitin-glucosamine (Osteo Bi-Flex) cyclobenzaprine (cyclobenzaprine 10 mg Tab) diclofenac (Diclofenac 75mg Tab-DR) levothyroxine (levothyroxine 50 mcg (0.05 mg) Tab) liothyronine (liothyronine 5 mcg Tab) lisinopril (lisinopril 20 mg Tab) metoprolol (Metoprolol tartrate 50 mg Tab) nitroglycerin (nitroglycerin 0.4 mg sublingual Tab) omeprazole (omeprazole 20 mg Cap-DR) temazepam (temazepam 15 mg Cap) triamcinolone topical (triamcinolone Top 0.1% Crm) Procedures Performed Colonoscopy (11/01/2016), EGD - Esophagogastroduodenoscopy (11/01/2016), Colonoscopy (02/28/2012), Colonoscopy (07/28/2009), Appendectomy, Arthroplasty of knee, Arthroscopy of knee, Cataract extraction, Cataract extraction, Cholecystectomy, Suspension of bladder. Medications What How Much When Instructions Unchanged alendronate (Fosamax 70 mg oral tablet) 1 Tablets By Mouth Every week Unchanged amlodipine (amLODIPine 5 mg Tab) 2 Tablets By Mouth Every day Unchanged aspirin (aspirin 81 mg Oral EC Tab) 1 Tablets By Mouth Every day Unchanged calcium carbonate (calcium (as carbonate) 600 mg oral tablet) 2 Tablets By Mouth Every day Unchanged chondroitin-glucosamine (Osteo Bi-Flex) 1 Tablets By Mouth Every day Unchanged cyclobenzaprine (cyclobenzaprine 10 mg Tab) 1 Tablets By Mouth 3 times a day as needed for for spasm Unchanged diclofenac (Diclofenac 75mg Tab-DR) 1 Tablets By Mouth 2 times a day Unchanged levothyroxine (levothyroxine 50 mcg (0.05 mg) Tab) 1 Tablets By Mouth Every day Unchanged liothyronine (liothyronine 5 mcg Tab) 1 Tablets By Mouth Every day Unchanged lisinopril (lisinopril 20 mg Tab) 2 Tablets By Mouth Every day Unchanged metoprolol (Metoprolol tartrate 50 mg Tab) as directed Unchanged nitroglycerin (nitroglycerin 0.4 mg sublingual Tab) 1 Tablets Sublingual Every 5 minutes as needed for for chest pain Unchanged omeprazole (omeprazole 20 mg Cap-DR) 1 Capsules By Mouth 2 times a day Unchanged temazepam (temazepam 15 mg Cap) 1 Capsules By Mouth Once a day (at bedtime) Unchanged triamcinolone topical (triamcinolone Top 0.1% Crm) 1 Application Topical 2 times a day Allergies No Known Allergies No Known Medication Allergies Problems Ongoing - Any problem that you are currently receiving treatment for. Jojo BMI 26.0-26.9,adult Dark stools Edema History of gastritis History of TIA (transient ischemic attack) HTN (hypertension) IBS (irritable bowel syndrome) Insomnia Iron deficiency anemia Left leg DVT Lumbar scoliosis Osteopenia Positive fecal occult blood test Premature atrial beats Thoracic spinal stenosis Varicose veins of legs Venous insufficiency Normal [facility] Pathology Noteon 08-18-2022 Pathology Note [id number]:127 Normal [facility] Outside Colonoscopyon 2021 Outside Colonoscopy [id number]:127 Normal [facility] US NOLBERTO DOP LEG RTon 08-10-20 22 US NOLBERTO DOP LEG RT EXAM: US NOLBERTO DOP LEG RT HISTORY: Edema of lower extremity (finding) . The right calf pain for the past day. The patient has a history of vein is ablation. COMPARISON: None. TECHNIQUE: Multiple sonographic images of the deep veins of the right lower extremity were obtained, supplemented with Doppler. FINDINGS: The deep veins of the right lower extremity are fairly well visualized from the groin to the mid calf. No filling defect is identified to indicate a thrombus. There is normal compression augmentation to flow throughout. There are portions of the greater and lesser saphenous veins which demonstrate no flow and appear to have been ablated. IMPRESSION: There is no direct or indirect evidence of deep vein thrombosis in the deep veins of the right lower extremity at this time. There is evidence of ablation of portions of the greater and lesser saphenous veins. Electronically authenticated by: BRAD GONZALEZ Date: 2022-08-10 15:05 Normal [facility] Lab Reportson 08-03-2022 Lab Reports [id number]:127 Normal [facility] CBC AUTO DIFFon 08-02-2022 BASO # 0.0 103/ul Normal 0.0-0.1 [facility] Comment on above: Performed By: #### C BC #### [facility] [address] [place] [address] Dr. Lolita Alvarado Basophils/100 WBC (Bld) 0.3 % Normal 0.2-2.0 [facility] Comment on above: Performed By: #### C BC #### [facility] [address] [place] [address] Dr. Lolita Alvarado EO # 0.0 103/ul Normal 0.0-0.7 [facility] Comment on above: Performed By: #### C BC #### [facility] [address] [place] [address] Dr. Lolita Alvarado Eosinophils/100 WBC (Bld) 0.3 % Critically low 0.9-7.0 [facility] Comment on above: Performed By: #### C BC #### [facility] [address] [place] [address] Dr. Lolita Alvarado Erythrocyte distribution width (RBC) [Ratio] 13.3 % Normal 11.0-15.0 [facility] Comment on above: Performed By: #### C BC #### [facility] [address] [place] [address] Dr. Lolita Alvarado Hematocrit (Bld) [Volume fraction] 34.6 % Critically low 36.0-48.0 [facility] Comment on above: Performed By: #### C BC #### [facility] [address] [place] [address] Dr. Lolita Alvarado Hemoglobin (Bld) [Mass/Vol] 11.4 g/dL Critically low 12.0-16.0 [facility] Comment on above: Performed By: #### C BC #### [facility] [address] [place] [address] Dr. Lolita Alvarado IG # 0.04 10e3/ul Critically high 0.00-0.03 [facility] Comment on above: Performed By: #### C BC #### [facility] [address] [place] [address] Dr. Lolita Alvarado IG % 1.0 % Critically high 0.0-0.5 [facility] Comment on above: Performed By: #### C BC #### [facility] [address] [place] [address] Dr. Lolita Alvarado LYMPH # 1.2 103/ul Normal 1.2-3.8 [facility] Comment on above: Performed By: #### C BC #### [facility] [address] [place] [address] Dr. Lolita Alvarado Lymphocytes/100 WBC (Bld) 30.9 % Normal 20.5-60.0 [facility] Comment on above: Performed By: #### C BC #### [facility] [address] [place] [address] Dr. Lolita Alvarado MANUAL DIFF REQ NO Normal [facility] Comment on above: Performed By: #### C BC #### [facility] [address] [place] [address] Dr. Lolita Alvarado MCH (RBC) [Entitic mass] 31.0 pg Normal 26.7-34.0 [facility] Comment on above: Performed By: #### C BC #### [facility] [address] [place] [address] Dr. Lolita Alvarado MCHC (RBC) [Mass/Vol] 32.9 g/dL Normal 29.9-35.2 [facility] Comment on above: Performed By: #### C BC #### [facility] [address] [place] [address] Dr. Lolita Alvarado MCV (RBC) [Entitic vol] 94.0 fL Normal 81.0-99.0 [facility] Comment on above: Performed By: #### C BC #### [facility] [address] [place] [address] Dr. Lolita Alvarado MONO # 0.4 103/ul Normal 0.3-0.8 [facility] Comment on above: Performed By: #### C BC #### [facility] [address] [place] [address] Dr. Lolita Alvarado Monocytes/100 WBC (Bld) 10.6 % Normal 1.7-12.0 [facility] Comment on above: Performed By: #### C BC #### [facility] [address] [place] [address] Dr. Lolita Alvarado NEUT # 2.2 103/ul Normal 1.4-6.5 [facility] Comment on above: Performed By: #### C BC #### [facility] [address] [place] [address] Dr. Lolita Alvarado Neutrophils/100 WBC (Bld) 56.9 % Normal 43.0-75.0 [facility] Comment on above: Performed By: #### C BC #### [facility] [address] [place] [address] Dr. Lolita Alvarado Platelet mean volume (Bld) [Entitic vol] 8.1 fL Critically low 9.5-13.5 [facility] Comment on above: Performed By: #### C BC #### [facility] [address] [place] [address] Dr. Lolita Alvarado PLT 226 103/ul Normal 150-450 [facility] Comment on above: Performed By: #### C BC #### [facility] [address] [place] [address] Dr. Lolita Alvarado RBC 3.68 106/ul Critically low 4.20-5.40 [facility] Comment on above: Performed By: #### C BC #### [facility] [address] [place] [address] Dr. Lolita Alvarado WBC 3.9 103/ul Critically low 4.0-11.0 [facility] Comment on above: Performed By: #### C BC #### [facility] [address] [place] [address] Dr. Lolita Alvarado [facility]07 SARS-CoV-2 (COVID-19) RNA EDWIN+probe Ql (Unsp spec) Detected Critically abnormal NOT DETECTED [facility] Comment on above: Result Comment: This test is not yet approved or cleared by the [place] FDA. When there are no FDA-approved or cleared tests available, and other criteria are met, FDA can make tests available under an emergency access mechanism called an Emergency Use Authorization (EUA). The EUA for this test is supported by the Product/Device Technologist of Health and Human Service's (HHS's) declaration that circumstances exist to justify the emergency use of in vitro diagnostics for the detection and/or diagnosis of the virus that causes COVID-19. This EUA will remain in effect (meaning this test can be used) for the duration of the COVID-19 declaration justifying emergency of IVDs, unless it is terminated or revoked by FDA (after which the test may no longer be used). Performed By: #### C BC #### [facility] [address] [address] [address] Lolita Alvarado Consent for Procedure/Surger yon 06-15-2022 Consent for Procedure/Surgery [id number] Normal [facility] Ambulatory Visit Summaryon 0 06-13-2022 Ambulatory Visit Summary ALICIA NGUYỄN :1940 Visit Date:06/13/2022 Ambulatory Visit Instructions Your Care Team Attending Physician - Arie BERGERON MD Primary Care Physician - Santiago Otto MD This Is Your Medications List Contact prescribing physician if questions or concerns alendronate (Fosamax 70 mg oral tablet) amlodipine (amLODIPine 5 mg Tab) aspirin (aspirin 81 mg Oral EC Tab) calcium carbonate (calcium (as carbonate) 600 mg oral tablet) chondroitin-glucosamine (Osteo Bi-Flex) cyclobenzaprine (cyclobenzaprine 10 mg Tab) diclofenac (Diclofenac 75mg Tab-DR) levothyroxine (levothyroxine 50 mcg (0.05 mg) Tab) liothyronine (liothyronine 5 mcg Tab) lisinopril (lisinopril 20 mg Tab) metoprolol (Metoprolol tartrate 50 mg Tab) nitroglycerin (nitroglycerin 0.4 mg sublingual Tab) omeprazole (omeprazole 20 mg Cap-DR) temazepam (temazepam 15 mg Cap) triamcinolone topical (triamcinolone Top 0.1% Crm) Procedures Performed Colonoscopy (11/01/2016), EGD - Esophagogastroduodenoscopy (11/01/2016), Colonoscopy (02/28/2012), Colonoscopy (07/28/2009), Appendectomy, Arthroplasty of knee, Arthroscopy of knee, Cataract extraction, Cataract extraction, Cholecystectomy, Suspension of bladder. Discharge Vitals Heart Rate (Peripheral) 66 Respiratory Rate 16 Blood Pressure 128/66 Height 160 cm Height 160.0 cm Weight 66.8 kg Weight 66.8 kg BMI 26.09 Medications What How Much When Instructions Unchanged alendronate (Fosamax 70 mg oral tablet) 1 Tablets By Mouth Every week Contact prescribing physician if questions or concerns Unchanged amlodipine (amLODIPine 5 mg Tab) 2 Tablets By Mouth Every day Contact prescribing physician if questions or concerns Unchanged aspirin (aspirin 81 mg Oral EC Tab) 1 Tablets By Mouth Every day Contact prescribing physician if questions or concerns Unchanged calcium carbonate (calcium (as carbonate) 600 mg oral tablet) 2 Tablets By Mouth Every day Contact prescribing physician if questions or concerns Unchanged chondroitin-glucosamine (Osteo Bi-Flex) 1 Tablets By Mouth Every day Contact prescribing physician if questions or concerns Unchanged cyclobenzaprine (cyclobenzaprine 10 mg Tab) 1 Tablets By Mouth 3 times a day as needed for for spasm Contact prescribing physician if questions or concerns Unchanged diclofenac (Diclofenac 75mg Tab-DR) 1 Tablets By Mouth 2 times a day Contact prescribing physician if questions or concerns Unchanged levothyroxine (levothyroxine 50 mcg (0.05 mg) Tab) 1 Tablets By Mouth Every day Contact prescribing physician if questions or concerns Unchanged liothyronine (liothyronine 5 mcg Tab) 1 Tablets By Mouth Every day Contact prescribing physician if questions or concerns Unchanged lisinopril (lisinopril 20 mg Tab) 2 Tablets By Mouth Every day Contact prescribing physician if questions or concerns Unchanged metoprolol (Metoprolol tartrate 50 mg Tab) as directed Contact prescribing physician if questions or concerns Unchanged nitroglycerin (nitroglycerin 0.4 mg sublingual Tab) 1 Tablets Sublingual Every 5 minutes as needed for for chest pain Contact prescribing physician if questions or concerns Unchanged omeprazole (omeprazole 20 mg Cap-DR) 1 Capsules By Mouth 2 times a day Contact prescribing physician if questions or concerns Unchanged temazepam (temazepam 15 mg Cap) 1 Capsules By Mouth Once a day (at bedtime) Contact prescribing physician if questions or concerns Unchanged triamcinolone topical (triamcinolone Top 0.1% Crm) 1 Application Topical 2 times a day Contact prescribing physician if questions or concerns Allergies No Known Allergies No Known Medication Allergies Problems Ongoing - Any problem that you are currently receiving treatment for. [place] BMI 26.0-26.9,adult Edema History of gastritis History of TIA (transient ischemic attack) HTN (hypertension) IBS (irritable bowel syndrome) Insomnia Left leg DVT Lumbar scoliosis Osteopenia Premature atrial beats Thoracic spinal stenosis Varicose veins of legs Venous insufficiency Normal [facility] CBC AUTO DIFFon 06-02-2022 BASO # 0.0 103/ul Normal 0.0-0.1 [facility] Comment on above: Performed By: #### C BC #### [facility] [address] [address] [address] Lolita Alvarado Basophils/100 WBC (Bld) 0.4 % Normal 0.2-2.0 [facility] Comment on above: Performed By: #### C BC #### [facility] [address] [address] [address] Lolita Alvaraod EO # 0.0 103/ul Normal 0.0-0.7 [facility] Comment on above: Performed By: #### C BC #### [facility] [address] [address] [address] Lolita Alvarado Eosinophils/100 WBC (Bld) 0.2 % Critically low 0.9-7.0 [facility] Comment on above: Performed By: #### C BC #### [facility] [address] [address] [address] Lolita Alvarado Erythrocyte distribution width (RBC) [Ratio] 12.8 % Normal 11.0-15.0 [facility] Comment on above: Performed By: #### C BC #### [facility] [address] [place] [address] Dr. Lolita Alvarado Hematocrit (Bld) [Volume fraction] 30.1 % Critically low 36.0-48.0 [facility] Comment on above: Performed By: #### C BC #### [facility] [address] [place] [address] Dr. Lolita Alvarado Hemoglobin (Bld) [Mass/Vol] 10.3 g/dL Critically low 12.0-16.0 [facility] Comment on above: Performed By: #### C BC #### [facility] [address] [place] [address] Dr. Lolita Alvarado IG # 0.02 10e3/ul Normal 0.00-0.03 [facility] Comment on above: Performed By: #### C BC #### [facility] [address] [place] [address] Dr. Lolita Alvarado IG % 0.4 % Normal 0.0-0.5 [facility] Comment on above: Performed By: #### C BC #### [facility] [address] [place] [address] Dr. Lolita Alvarado LYMPH # 0.7 103/ul Critically low 1.2-3.8 [facility] Comment on above: Performed By: #### C BC #### [facility] [address] [place] [address] Dr. Lolita Alvarado Lymphocytes/100 WBC (Bld) 14.9 % Critically low 20.5-60.0 [facility] Comment on above: Performed By: #### C BC #### [facility] [address] [place] [address] Dr. Lolita Alvarado MANUAL DIFF REQ NO Normal [facility] Comment on above: Performed By: #### C BC #### [facility] [address] [place] [address] Dr. Lolita Alvarado MCH (RBC) [Entitic mass] 33.6 pg Normal 26.7-34.0 [facility] Comment on above: Performed By: #### C BC #### [facility] [address] [place] [address] Dr. Lolita Alvarado MCHC (RBC) [Mass/Vol] 34.2 g/dL Normal 29.9-35.2 [facility] Comment on above: Performed By: #### C BC #### [facility] [address] [address] [address] Lolita Alvarado MCV (RBC) [Entitic vol] 98.0 fL Normal 81.0-99.0 [facility] Comment on above: Performed By: #### C BC #### [facility] [address] [address] [address] Lolita Alvarado MONO # 0.4 103/ul Normal 0.3-0.8 [facility] Comment on above: Performed By: #### C BC #### [facility] [address] [address] [address] Lolita Alvarado Monocytes/100 WBC (Bld) 9.0 % Normal 1.7-12.0 [facility] Comment on above: Performed By: #### C BC #### [facility] [address] [address] [address] Lolita Alvarado NEUT # 3.4 103/ul Normal 1.4-6.5 [facility] Comment on above: Performed By: #### C BC #### [facility] [address] [address] [address] Lolita Alvarado Neutrophils/100 WBC (Bld) 75.1 % Critically high 43.0-75.0 [facility] Comment on above: Performed By: #### C BC #### [facility] [address] [address] [address] Lolita Alvarado Platelet mean volume (Bld) [Entitic vol] 8.5 fL Critically low 9.5-13.5 [facility] Comment on above: Performed By: #### C BC #### [facility] [address] [address] [address] Lolita Alvarado PLT 229 103/ul Normal 150-450 [facility] Comment on above: Performed By: #### C BC #### [facility] [address] [address] [address] Lolita Alvarado RBC 3.07 106/ul Critically low 4.20-5.40 [facility] Comment on above: Performed By: #### C BC #### [facility] [address] [place] [address] Dr. Lolita Alvarado WBC 4.6 103/ul Normal 4.0-11.0 [facility] Comment on above: Performed By: #### C BC #### [facility] [address] [place] [address] Dr. Lolita Alvarado Physician Referralon 022 Physician Referral [id number]:[id number] Normal [facility] CBC AUTO DIFFon 06-01-2022 BASO # 0.0 103/ul Normal 0.0-0.1 [facility] Comment on above: Performed By: #### C BC #### [facility] [address] [place] [address] Dr. Lolita Alvarado Basophils/100 WBC (Bld) 0.7 % Normal 0.2-2.0 [facility] Comment on above: Performed By: #### C BC #### [facility] [address] [place] [address] Dr. Lolita Alvarado EO # 0.2 103/ul Normal 0.0-0.7 [facility] Comment on above: Performed By: #### C BC #### [facility] [address] [place] [address] Dr. Lolita Alvarado Eosinophils/100 WBC (Bld) 3.7 % Normal 0.9-7.0 [facility] Comment on above: Performed By: #### C BC #### [facility] [address] [place] [address] Dr. Lolita Alvarado Erythrocyte distribution width (RBC) [Ratio] 13.0 % Normal 11.0-15.0 [facility] Comment on above: Performed By: #### C BC #### [facility] [address] [place] [address] Dr. Lolita Alvarado Hematocrit (Bld) [Volume fraction] 32.2 % Critically low 36.0-48.0 [facility] Comment on above: Performed By: #### C BC #### [facility] [address] [place] [address] Dr. Lolita Alvarado Hemoglobin (Bld) [Mass/Vol] 10.6 g/dL Critically low 12.0-16.0 [facility] Comment on above: Performed By: #### C BC #### [facility] [address] [place] [address] Dr. Lolita Alvarado IG # 0.02 10e3/ul Normal 0.00-0.03 [facility] Comment on above: Performed By: #### C BC #### [facility] [address] [place] [address] Dr. Lolita Alvarado IG % 0.5 % Normal 0.0-0.5 [facility] Comment on above: Performed By: #### C BC #### [facility] [address] [place] [address] Dr. Lolita Alvarado LYMPH # 1.4 103/ul Normal 1.2-3.8 [facility] Comment on above: Performed By: #### C BC #### [facility] [address] [place] [address] Dr. Lolita Alvarado Lymphocytes/100 WBC (Bld) 32.4 % Normal 20.5-60.0 [facility] Comment on above: Performed By: #### C BC #### [facility] [address] [place] [address] Dr. Lolita Alvarado MANUAL DIFF REQ NO Normal [facility] Comment on above: Performed By: #### C BC #### [facility] [address] [place] [address] Dr. Lolita Alvarado MCH (RBC) [Entitic mass] 32.1 pg Normal 26.7-34.0 [facility] Comment on above: Performed By: #### C BC #### [facility] [address] [place] [address] Dr. Lolita Alvarado MCHC (RBC) [Mass/Vol] 32.9 g/dL Normal 29.9-35.2 [facility] Comment on above: Performed By: #### C BC #### [facility] [address] [place] [address] Dr. Lolita Alvarado MCV (RBC) [Entitic vol] 97.6 fL Normal 81.0-99.0 [facility] Comment on above: Performed By: #### C BC #### [facility] [address] [place] [address] Dr. Lolita Alvarado MONO # 0.6 103/ul Normal 0.3-0.8 [facility] Comment on above: Performed By: #### C BC #### [facility] [address] [place] [address] Dr. Lolita Alvarado Monocytes/100 WBC (Bld) 14.0 % Critically high 1.7-12.0 [facility] Comment on above: Performed By: #### C BC #### [facility] [address] [place] [address] Dr. Lolita Alvarado NEUT # 2.1 103/ul Normal 1.4-6.5 [facility] Comment on above: Performed By: #### C BC #### [facility] [address] [place] [address] Dr. Lolita Alvarado Neutrophils/100 WBC (Bld) 48.7 % Normal 43.0-75.0 [facility] Comment on above: Performed By: #### C BC #### [facility] [address] [place] [address] Dr. Lolita Alvarado Platelet mean volume (Bld) [Entitic vol] 8.2 fL Critically low 9.5-13.5 [facility] Comment on above: Performed By: #### C BC #### [facility] [address] [place] [address] Dr. Lolita Alvarado PLT 216 103/ul Normal 150-450 [facility] Comment on above: Performed By: #### C BC #### [facility] [address] [place] [address] Dr. Lolita Alvarado RBC 3.30 106/ul Critically low 4.20-5.40 [facility] Comment on above: Performed By: #### C BC #### [facility] [address] [place] [address] Dr. Lolita Alvarado WBC 4.3 103/ul Normal 4.0-11.0 [facility] Comment on above: Performed By: #### C BC #### [facility] [address] [place] [address] Dr. Lolita Alvarado OCC BLD IMMUNOASSAYon 2021 OCCULT BLOOD Positive Abnormal NEGATIVE [facility] Comment on above: Performed By: #### O ELADIO #### [facility] [address] [place] [address] Dr. Lolita Alvarado PROTIMEon 06-01-2022 INR Coag (PPP) [Relative time] 1.62 {INR} Normal [facility] Comment on above: Performed By: #### P T, PTT #### [facility] [address] [place] [address] Dr. Lolita Alvarado INR GUIDELINES SEE BELOW Normal [facility] Comment on above: Result Comment: TOSHA RED INR: 2.0 - 3.0 CONDITIONS NOT LISTED BELOW 2.5 - 3.5 FOR PROSTHETIC HEART VALVE REPLACEMENT 2.5 - 3.5 RECURRENT THROMBOSIS Performed By: #### P T, PTT #### [facility] [address] [place] [address] Dr. Lolita Alvarado PT Coag (PPP) [Time] 17.0 s Critically high 9.0-11.6 [facility] Comment on above: Performed By: #### P T, PTT #### [facility] [address] [place] [address] Dr. Lolita Alvarado PTTon 06-01-2022 aPTT Coag (Bld) [Time] 40.2 s Critically high 22.3-36.2 [facility] Comment on above: Performed By: #### P T, PTT #### [facility] [facility] [address] [place] [address] Dr. Lolita Alvarado [facility] ([facility]on 05-06 SARS-CoV-2 (COVID-19) RNA EDWIN+probe Ql (Unsp spec) Not detected Normal NOT DETECTED [facility] Comment on above: Result Comment: This test is not yet approved or cleared by the [place] FDA. When there are no FDA-approved or cleared tests available, and other criteria are met, FDA can make tests available under an emergency access mechanism called an Emergency Use Authorization (EUA). The EUA for this test is supported by the Mutual of Health and Human Service's (HHS's) declaration that circumstances exist to justify the emergency use of in vitro diagnostics for the detection and/or diagnosis of the virus that causes COVID-19. This EUA will remain in effect (meaning this test can be used) for the duration of the COVID-19 declaration justifying emergency of IVDs, unless it is terminated or revoked by FDA (after which the test may no longer be used). When diagnostic testing is negative, the possibility of a false negative should be considered in the context of a patient's recent exposures and the presence of clinical signs and symptoms consistent with SARS-CoV-2. Performed By: #### C [facility] #### [facility] [address] [place] [address] Dr. Lolita Alvarado US NOLBERTO DOP LEG LTon 05-25-20 US NOLBERTO DOP LEG LT EXAMINATION: US NOLBERTO DOP LEG LT HISTORY: Acute deep venous thrombosis of left lower extremity COMPARISON: 04/28/2022 TECHNIQUE: Grayscale, color and Doppler ultrasound FINDINGS: Region: Left leg Thrombus: Echogenic thrombus in the great saphenous and small saphenous veins consistent with known ablation. No thrombus in the deep vein system Flow: Normal flow in the deep system Augmentation: Normal augmentation of the deep system Compressibility: Normal compressibility of the deep system IMPRESSION: No deep vein thrombus in the left leg *Exam performed in accordance with AIUM practice guidelines- Peripheral venous ultrasound, January 29, 2010. Electronically authenticated by: SHERYL SRINIVASAN Date: 2022-05-25 16:09 Normal [facility] US NOLBERTO DOP LEG LTon 04-28-20 US NOLBERTO DOP LEG LT EXAM: US NOLBERTO DOP LEG LT HISTORY: Localized swelling of left lower leg, previous ablation of the greater saphenous vein and small saphenous vein. COMPARISON: None TECHNIQUE: Ultrasonography of the left lower extremity is performed from the groin to the ankle. FINDINGS: One of the 2 posterior tibial veins is occluded, and noncompressible at the knee and mid calf. There may be a house wirer helper extending to the region of the thrombosis. The remaining deep venous structures are patent. 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 This finding was placed in the stat call folder. 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 Electronically authenticated by: CHUCK TATUM Date: 2022-04-28 19:31 Normal [facility] POINT OF CARE GLUCOSEon 04-06 Glucose [Mass/Vol] 86 mg/dL Normal 74-106 [facility] Comment on above: Performed By: #### C BC #### [facility] [address] [place] [address] Dr. Lolita Alvarado Encounters Encounter Date Encounter Type Care Provider Facility Start: 11-16-2023 End: 11-16-2023 ambulatory JAMAL VIZCARRA Not Available Start: 10-26-2023 End: 10-26-2023 ambulatory JAMAL VIZCARRA Not Available Start: 10-11-2023 End: 10-16-2023 Evaluation and management of inpatient Brando Garcia Facility:[facility] Start: 10-10-2023 End: 10-10-2023 ambulatory JOB CASTRO Not Available Start: 10-05-2023 End: 10-06-2023 ambulatory JAMAL VIZCARRA Not Available Start: 06-14-2023 ambulatory HORTENCIA NOVAK . Facili ty:[facility] Start: 04-04-[address] SANTIAGO OTTO . Facili ty:[facility] Start: 03-16-2023 End: 03-17-2023 ambulatory HORTENCIA NOVAK . Facility:[facility] Start: 12-23-2022 End: 12-24-[address] SANTIAGO OTTO . Facility:[facility] Start: 11-02-2022 ambulatory STARR ARROYO . Facility:[facility] Start: 11-01-2022 End: 11-01-2022 ambulatory Santiago Otto Facility:[facility] Start: 11-01-2022 End: 11-01-2022 ambulatory MD Santiago Otto Work Phone: [facility] Work Phone: Start: 11-01-2022 End: 11-01-2022 Patient encounter procedure MD Santiago Otto Work Phone: [facility] Work Phone: Start: 10-23-2022 End: 10-24-[address] SANTIAGO OTTO . Facility:[facility] Start: 10-16-2022 End: 10-17-2022 ambulatory RACHANA KENT Facility:[facility] Start: 10-11-2022 End: 10-11-2022 ambulatory Rachana Kent Other [facility] [employer] Other Start: 10-11-2022 Telephone encounter Rachana Kent F PG [facility] Neurosurgery Start: 09-12-2022 End: 09-13-[address] SANTIAGO OTTO . Facility: Start: 08-29-2022 End: 08-30-2022 ambulatory Arie BERGERON Facility:[facility] Start: 08-29-2022 End: 08-29-2022 Patient encounter procedure Arie BERGERON General Surgery Nill/Eliz Ma Start: 08-22-2022 End: 08-23-2022 ambulatory BRAD CALDWELL Facility:[facility] Start: 08-16-2022 End: 08-17-2022 ambulatory Arie BERGERON Facility:[id number] Start: 08-12-[address] ARIE BERGERON . Facil ity:[facility] Start: 08-10-2022 End: 08-11-[address] SANTIAGO OTTO . Facility:[facility] Start: 08-10-2022 Encounter for other preprocedural examination DR ARIE BERGERON . [facility] Start: 08-08-2022 End: 08-09-[address] ARIE BERGERON . Facility:[facility] Start: 08-08-2022 End: 08-09-2022 Encounter for other preprocedural examination DR ARIE BERGERON . Facility:[facility] Start: 08-02-2022 End: 08-03-[address] ARIE BERGERON . Facility:[facility] Start: 07-31-2022 End: 10-03-[address] IVANIA GARCIA . Facility:[facility] Start: 07-27-[address] SANTIAGO OTTO . Facili ty:[facility] Start: 07-27-2022 End: 07-28-2022 ambulatory STARR ARROYO . Facility:[facility] Start: 07-04-2022 End: 07-04-[address] SANTIAGO OTTO . Facility:[facility] Start: 06-13-2022 End: 06-14-2022 [facility] Start: 06-02-2022 [facility]ulatory [facility] Start: 06-02-2022 End: 06-03-[address] SANTIAGO OTTO . Facility:[facility] Start: 06-01-2022 End: 06-02-2022 ambulatory STARR ARROYO . Facility:[facility] Start: 05-25-2022 End: 05-25-[address] SANTIGAO OTTO . Facility:[facility] Start: 05-25-2022 End: 05-26-[address] SANTIAGO OTTO . Facility:[facility] Start: 04-28-2022 End: 04-29-2022 ambulatory STARR ARROYO . Facility:[facility] Start: 04-25-2022 End: 04-25-[address] IVANIA GARCIA . Facility: Procedures Date Procedure Procedure Detail Performing Clinician Start: 11-01-2022 Positron emission tomography with computed tomography MD Santiago Otto Work Phone: Start: 08-16-2022 Colonoscopy Arie NILL Start: 08-16-2022 Esophagogastroduodenoscopy Arie NILL Start: 11-01-2016 Colonoscopy Arie NILL Start: 11-01-2016 Esophagogastroduodenoscopy Arie NILL Start: 02-28-2012 Colonoscopy Arie NILL Start: 07-28-2009 Colonoscopy Arie NILL Appendectomy Arie NILL Arthroplasty of knee Arie NILL Arthroscopy of knee Arie NILL Cholecystectomy Arie NILL Cystopexy Arie NILL Extraction of cataract Louis jennie NILL Extraction of cataract Louis schneider NILL Payers Date Payer Category Payer Unknown [id number] 1961 Medicare [id number] 1959 Self-pay 1959 Unknown [id number] 1940 Unknown [id number] 2.16.8 40.1.735330.3.579.2.727 1938 Unknown [id number] 2.16.8 40.1.647037.3.579.2.727 1938 Unknown [id number] 2.16.8 40.1.913063.3.579.2.727 1938 Unknown [id number] 2.16.8 40.1.288879.3.579.2.727 1938 Unknown [id number] 2.16.84 0.1.117556.3.579.2.593 1938 Unknown [id number] 2.16.84 0.1.497564.3.579.2.593 1938 Unknown [id number] 2.16.84 0.1.650624.3.579.2.593 1938 Unknown [id number] 2.16.84 0.1.579794.3.579.2.593 1938 Unknown [id number] 2.16.84 0.1.290395.3.579.2.593 1938 Unknown [id number] 2.16.84 0.1.921577.3.579.2.593 1938 Unknown [id number] 2.16.84 0.1.814654.3.579.2.593 1938 Unknown [id number] 2.16.84 0.1.687575.3.579.2.593 1938 Unknown [id number] 2.16.84 0.1.811430.3.579.2.593 1938 Unknown [id number] 2.16.84 0.1.502576.3.579.2.593 1938 Unknown [id number] 2.16.84 0.1.843258.3.579.2.593 1938 Unknown [id number] 2.16.84 0.1.188448.3.579.2.593 1938 Unknown [id number] 2.16.84 0.1.230558.3.579.2.593 1938 Unknown [id number] 2.16.84 0.1.276686.3.579.2.593 1938 Unknown [id number] 2.16.84 0.1.231368.3.579.2.593 1938 Unknown [id number] 2.16.84 0.1.764384.3.579.2.593 1938 Unknown [id number] 2.16.84 0.1.286275.3.579.2.593 1938 Unknown [id number] 2.16.84 0.1.154811.3.579.2.593 1938 Unknown [id number] 2.16.84 0.1.971382.3.579.2.593 1938 Unknown [id number] 2.16.84 0.1.366338.3.579.2.593 1938 Unknown [id number] 2.16.84 0.1.559118.3.579.2.593 1938 Unknown [id number] 2.16.84 0.1.110765.3.579.2.593 1938 Unknown [id number] 2.16.84 0.1.162221.3.579.2.593 1938 Unknown [id number] 2.16.84 0.1.403424.3.579.2.593 1938 Unknown [id number] 2.16.84 0.1.931245.3.579.2.593 1938 Unknown [id number] 2.16.84 0.1.206912.3.579.2.593 1938 Unknown [id number] 2.16.84 0.1.370284.3.579.2.593 1938 Unknown [id number] 2.16.84 0.1.856419.3.579.2.593 1938 Unknown [id number] 2.16.8 40.1.325960.3.579.2.718 1938 Unknown [id number] 2.16.84 0.1.155106.3.579.2.1259 1938 Unknown [id number] 2.16.840 .1.821200.3.579.2.1259 1938 Unknown [id number] 2.16.840 .1.133666.3.579.2.1259 1938 Unknown [id number] 2.16.840 .1.097318.3.579.2.1259 1938 Unknown [id number] 2.16.840 .1.138152.3.579.2.1259 Medicare Medicare Outpatient [id number] [id number] Unknown [id number] 2.16.8 40.1.519052.3.579.2.531 Social History Date Type Detail Facility Start: 06-13-2022 Tobacco smoking status Never s moked tobacco (finding) [facility] Tobacco smoking status Never [facility] [place] Sex Assigned At Female [facility] Start: 1940 Sex Assigned At Female [facility] Clinical Notes 06-01-2022 to 10-17-2023 Note Date & Type Note Facility 10-17-2023 Note [id number] E7#1.00[facility] 10-17-2023 Note [id number] D#1.00[facility] 10-17-2023 Note [id number]#1.00[facility] 10-16-2023 Note Education Materials POST OPERATIVE TOTAL KNEE/HIP DISCHARGE INTRUCTIONS SURGEONS WRITTEN INSTRUCTIONS: Walk with walker; bear weight to tolerance on operative extremity Elevate extremity 1 hour 3 times/day to control pain and swelling and apply cyrocuff Range of motion to ankle 10 times/hour Range of motion to knee hourly Change dressing daily. Christoph hose (compression stockings) for 6 weeks Physical therapy as prescribed May shower, no tub bath. Do not rub/scrub incisions. Wash gently WHAT YOU SHOULD KNOW AFTER YOUR OPERATION: If you need pain pills, start before the pain becomes intense. Pain pills are frequently less upsetting to your stomach if you take them with food such as crackers or bread. If you have excessive or persistent pain, swelling, bleeding, nausea, vomiting or any other problems, you should first call your surgeon for advice. If you are unable to contact your surgeon, seek help from the emergency room. FOR THE PREVENTION OF DVT AFTER LOWER EXTREMITY SURGERY What is a DVT? There is always the risk of DVT after lower extremity surgery. DVT, or deep vein thrombosis, is a blood blot in a major vein that may partially or completely block the flow of blood. The clot occurs in the legs or pelvis, in areas where blood flow is slow, or in an injured blood vessel. DVT can be life-threatening should pieces of the clot break away and travel to the lungs. This is called pulmonary embolism What are the symptoms of DVT? The area affected by the blood clot may become swollen and painful, and possibly turn red as the normal flow of blood is blocked. You may also develop edema, which is the build up of fluid in the skin tissues surrounding the clot. If the clot is somewhere other than your leg, there may be no physical signs of DVT. If the clot breaks away and travels to your lungs, you may experience shortness of breath and chest pain. If this occurs you should call your doctor immediately or go to the emergency room. How can I prevent DVT? You should keep active. Moving the ankle and foot and bending the knee as tolerated when you are in bed and walking as tolerated. Take medication, especially the Aspirin, as prescribed by your doctor. What should I do if I think I have a DVT? You should call your doctor or go to the emergency room any time you have a sudden and unusual shortness of breath that is not related to exercise, exertion or anxiety. If you have swelling with redness and pain in your leg, you should call your doctor immediately. If there is concern then a test called ?Venous Doppler? can be done to rule of a DVT. #1 change dressing daily. You may shower starting 1 days after surgery. No scrubbing or rubbing incision during shower just let the water run over the incision #2 stop smoking and drinking alcohol #3 ice to operative knee 20 minutes every hour while awake until pain and swelling control. Keep head flat with knee straight and elevated above heart with a ramp of pillows until pain and swelling controlled #4 flex and extend both feet/ankles 10 times per hour while awake #5 push both knees backwards into the bed 10 times every hour while awake, clench buttock muscles together 10 times every hour while awake #6 use walker weight-bear as tolerated to operative knee. Get up every 2 hours while awake and walk around with walker for 1 to 2 minutes. #7 Flex and extend knee over the side of the bed 10?4 times a day #8 follow up in office with physician engineer assistant Joe Vizcarra as scheduled #9 [facility] will be contacting you within the next 24 hours to set up home therapy visits #11 You have been given a prescription for [place], norco is narcotic, narcotics are addictive. If you feel you have problems with addiction please feel free to contact Dr. Aguilar, your family physician, or proceed to the nearest hospital's emergency services department. [facility] 10-16-2023 Note [facility] Clinical Discharge Summary PERSON INFORMATION Name ALICIA NGUYỄN Age 83 Years 1940 Sex FEMALE Language Moldovan PCP SANTIAGO OTTO Marital Status Phone Med Service Med/Surg Acct# Arrival 10/11/2023 06:57:39 Visit Reason SURGERY - RIGHT KNEE SCOPE Acuity LOS 005 01:37 Address: [address] [place] [id number] Comment: PROVIDER INFORMATION VITALS INFORMATION Vital Sign Triage Latest Temp Oral 36.6 DegC 36.4 DegC Temp Temporal Temp Intravascular Temp Axillary Temp Rectal 02 Sat 97 % 98 % Respiratory Rate 18 br/min 16 br/min Peripheral Pulse Rate 97 bpm 72 bpm Apical Heart Rate 89 bpm 75 bpm Blood Pressure 132 mmHg / 75 mmHg 147 mmHg / 75 mmHg Comment: MEDICAL INFORMATION Allergy Info: No known allergies Medication List: New Medications Other Medications acetaminophen (acetaminophen 325 mg oral tablet) 2 tab(s) Oral (given by mouth) Every 4 hours as needed Pain/Fever. polyethylene glycol 3350 (MiraLax) 17 gram Oral (given by mouth) every day. Medications That Were Updated - Follow Below Instructions Printed Prescriptions Updated: acetaminophen-hydrocodone (acetaminophen-hydrocodone 325 mg-5 mg oral tablet) 1 tab(s) Oral (given by mouth) every 6 hours as needed Pain - Severe for 3 Days. Refills: 0. Medications to Continue That Have Not Changed Other Medications alendronate (alendronate 70 mg oral tablet) 1 tab(s) Oral (given by mouth) every week. amLODIPine (amLODIPine 5 mg oral tablet) 1 tab(s) Oral (given by mouth) every day. cetirizine (All Day Allergy (Cetirizine) 10 mg oral tablet) 1 tab(s) Oral (given by mouth) every day. chondroitin-glucosamine (Osteo Bi-Flex) Oral (given by mouth) every day. DULoxetine (DULoxetine 30 mg oral delayed release capsule) 1 cap(s) Oral (given by mouth) At bedtime. (do not crush or chew). levothyroxine (levothyroxine 50 mcg (0.05 mg) oral tablet) 1 tab(s) Oral (given by mouth) every day. liothyronine (liothyronine 5 mcg oral tablet) 1 tab(s) Oral (given by mouth) every day. metoprolol (Metoprolol Tartrate 50 mg oral tablet) 2 tab(s) Oral (given by mouth) every day. metoprolol (Metoprolol Tartrate 50 mg oral tablet) 1 tab(s) Oral (given by mouth) At bedtime. metoprolol (Metoprolol Tartrate 50 mg oral tablet) 1 tab(s) Oral (given by mouth) every day. at noon. omeprazole (omeprazole 20 mg oral delayed release capsule) 1 cap(s) Oral (given by mouth) 2 times a day. triamcinolone topical (triamcinolone 0.1% topical cream) 1 dano Topical (on the skin) 2 times a day. Comment: Lab and Radiology Results Laboratory or Other Results This Visit (last charted value for your 10/11/2023 visit) Hematology 10/16/2023 5:39 AM Sed Rate: 83 mm/hr -- Normal range between ( 0 and 20 ) 10/15/2023 5:14 AM Hct: 29.8 % -- Normal range between ( 33.7 and 40.4 ) Hgb: 9.9 gm/dL -- Normal range between ( 11.3 and 15.9 ) MCH: 30 pg -- Normal range between ( 24 and 34 ) MCHC: 33 gm/dL -- Normal range between ( 26 and 37 ) MCV: 90 fL -- Normal range between ( 81 and 100 ) MPV: 6.1 fL -- Normal range between ( 6.3 and 10.2 ) Platelet: 363 x103/mcL -- Normal range between ( 138 and 427 ) RBC: 3.31 x106/mcL -- Normal range between ( 3.70 and 5.30 ) RDW: 15.3 % -- Normal range between ( 11.5 and 15.0 ) WBC: 8.5 x103/mcL -- Normal range between ( 3.5 and 10.5 ) Auto Eos %: 0.8 % -- Normal range between ( 0.9 and 4.0 ) Auto Lymph %: 13 % -- Normal range between ( 14 and 48 ) Auto Neut %: 76 % -- Normal range between ( 44 and 88 ) Eos Abs#: 0.1 x103/mcL -- Normal range between ( 0.0 and 0.4 ) Lymph Abs#: 1.1 x103/mcL -- Normal range between ( 1.3 and 2.9 ) Mineral Abs#: 0.8 x103/mcL -- Normal range between ( 0.0 and 0.8 ) Auto Baso %: 0.2 % -- Normal range between ( 0.2 and 2.0 ) Auto Mineral %: 9 % -- Normal range between ( 1 and 12 ) Baso Abs#: 0.0 x103/mcL -- Normal range between ( 0.0 and 0.2 ) Neut Abs#: 6.5 x103/mcL -- Normal range between ( 1.5 and 9.2 ) Chemistry 10/16/2023 5:39 AM CRP: 3.1 mg/dL 10/15/2023 5:14 AM Creatinine Level: 0.88 mg/dL -- Normal range between ( 0.60 and 1.30 ) BUN: 19 mg/dL -- Normal range between ( 8 and 26 ) Chloride Level: 106 mmol/L -- Normal range between ( 101 and 111 ) CO2: 26 mmol/L -- Normal range between ( 21 and 32 ) Glucose Level: 109.0 mg/dL -- Normal range between ( 74.0 and 118.0 ) Osmolality: 273 mOsm/L Potassium Level: 4.4 mmol/L -- Normal range between ( 3.6 and 5.1 ) Sodium Level: 135.0 mmol/L -- Normal range between ( 136.0 and 144.0 ) Anion Gap: 7.4 mmol/L -- Normal range between ( 5.0 and 19.0 ) Calcium Level: 8.8 mg/dL -- Normal range between ( 8.9 and 10.3 ) BUN/Creat Ratio: 21.5 -- Normal range between ( 4.6 and 16.2 ) eGFR AA: >60 mL/min/1.73m2 eGFR Non AA: >60 mL/min/1.73m2 10/12/2023 4:50 AM Albumin Level: 2.4 gm/dL -- Normal range between ( 3.5 and 5.0 ) Alk Phos: 105 IU/L -- Normal range between ( 32 and (more content not included)... [facility] 10-17-2022 Note PROCEDURE: XR SCAPUL A RT COMPARISON: None. HISTORY: Disorder of bone FINDINGS: BONES:No acute fracture or dislocation. Subchondral cystic changes of the greater tuberosity and humeral neck SOFT TISSUES:Negative. No visible soft tissue swelling. EFFUSION:None visible. OTHER: Aortic atherosclerosis IMPRESSION: No acute abnormality Electronically authenticated by: SHERYL SRINIVASAN Date: 2022-10-17 07:20 [facility] 08-16-2022 Note OPERATIVE NOTE OPERATION DATE: 08/16/2022 PREOPERATIVE DIAGNOSIS: Iron deficiency anemia, melena, as well as guaiac positive stool. POSTOPERATIVE DIAGNOSIS: Mild antral gastritis as well as vascular lesion in the cardia on the lesser curve, consistent with a possible Dieulafoy's lesion and redundant colon with diverticulosis. PROCEDURE: EGD with antral biopsy as well as cautery and clipping of the Dieulafoy lesion and colonoscopy to mid transverse colon. SURGEON: Arie Bergeron M.D. ANESTHESIA: Monitored anesthesia care. ESTIMATED BLOOD LOSS: Less than 2 mL. INDICATIONS AND CONSENT: Patient is an 82-year-old female with history of melanotic stools when she was placed on a blood thinner, as well as iron deficiency anemia and occult positive stool. The melena improved after the blood thinner was stopped. Indications, risks, benefits, alternatives of proceeding with EGD and colonoscopy were explained extensively to the patient, including the risks of bleeding, aspiration, esophageal/gastric/duodenal or colonic perforation or anesthetic complications. All of her questions were answered. Informed consent was obtained. PROCEDURE: Patient brought to the operating room, placed in the left lateral decubitus position. Monitored anesthesia care was provided. A bite block was placed in the patient's mouth. Scope was inserted into the oropharynx. Under direct visualization, it was advanced into the esophagus. There was a tortuous distal esophagus. Into to the stomach, past the pylorus, down to the descending portion of the duodenum. There was no evidence of duodenitis or ulceration. There was no scarring within the pyloric channel. Scope was pulled back into the stomach. There was noted to be some mild linear antral gastritis. Biopsy was obtained with pediatric cold biopsy forceps with good hemostasis. The scope was retroflexed. No significant hiatal hernia. However, there was noted to be an area of oozing from the cardia in the lesser curve. This was irrigated. There appeared to be a vascular, Dieulafoy-type lesion. This was controlled with some electrocautery as well as a clip, with good hemostasis. No other abnormalities were noted. There was a tortuous distal esophagus. The remainder of the esophagus was unremarkable. There was no esophagitis. The scope was then withdrawn. Patient tolerated procedure well, was then positioned for colonoscopy. Rectal exam was performed which showed no masses or blood. Scope was inserted into the anal canal. Under direct visualization was advanced. Patient was noted to have a redundant colon with multiple diverticula throughout the colon, moderate. With the aid of abdominal compression and positional changes, scope was only able to be advanced to approximately the mid transverse colon. There was noted to be a good prep. Upon withdrawal of the scope, mucosal surfaces were carefully examined. There were no mass lesions or polyps. No inflammatory changes or ulcerations. There was the moderate diverticulosis without inflammatory changes or scarring. . The scope was retroflexed in the anal canal. There was no significant hemorrhoidal disease. Scope was then withdrawn. It should be noted, there was no old or new blood within the colon. Patient tolerated procedure well, was sent to recovery room in good condition. CC: Santiago Otto M.D. [facility] 07-27-2022 Note CONSULTATION PROCEDURE DATE: 07/27/2022 PRE AND POSTOPERATIVE DIAGNOSIS: Bilateral thoracic trapezius spasms. PROCEDURE: Bilateral thoracic trapezius trigger point injections x2. Subsequent to obtaining informed consent, the patient was placed in the upright standing forward flexion position. Alcohol prep was used to sterilize the site. 25-gauge needle with 0.125% Marcaine and 40 mg of Kenalog for a total dose of 2 mL in each location was used. The needle was placed to rest inside the trigger zone, negative heme. Medication was injected in a slow, fan-like pattern and the patient tolerated the procedure well. The patient had no episode of shortness of breath or tachypnea during the procedure. She will be followed up in the office. [facility] 07-27-2022 Note CONSULTATION CONSULTATION DATE: 07/27/2022 HISTORY OF PRESENT ILLNESS: This is a very pleasant and active, 82-year-old female who called to make the appointment today for increased mid back pain. Patient had radiofrequency ablations of her lower lumbar area 04/2022. Her pain is mid thoracic today and described as achy and burning. The patient is unable to stand upright for long periods of time as it results in worsening pain that is nauseating to her. Prolonged standing, walking, lying, bending and housework aggravate her pain. The pain is non-radiating. Current medication include tramadol 50 mg daily p.r.n., baclofen 10 mg q.h.s., Mobic 15 mg p.r.n. and multivitamin. Patient's REVIEW OF SYSTEMS / PAST MEDICAL HISTORY / ALLERGIES and IMAGES have been reviewed and they are noted on the chart. PHYSICAL EXAM: VITAL SIGNS: Blood pressure 100/68, heart rate is 63. Temperature is 96.9. She is 5'1 and weighs 62.4 kg. GENERAL IMPRESSION: Pleasant, appropriate, no acute distress. FOCUSED EXAM - MID BACK: Range of motion is functional in lateral rotation and flexion/extension. Trapezius thoracic muscles bilaterally spasming with trigger points identified. Compression along those trigger points, trapezius muscle reproduces patient's pain symptomatology. Positive jump response to palpation. Spinal axial pain is not reproduced upon facet compression to thoracic or lower lumbar area. MUSCULOSKELETAL: Motor is intact, 4/5 bilaterally. Slight muscle atrophy noted to lower extremities. Patient walks with a stable antalgic gait. NEUROLOGICAL: Radicular sensory is intact. Negative polyneuropathy. DIAGNOSIS: Bilateral trapezius thoracic spasm, thoracic spondylosis and thoracic pain. PLAN: Patient will receive bilateral thoracic trapezius trigger point injections in two locations, which patient does consent to in the office today. Highly recommended and stressed the use of menthol heat rub and heat application. She will be sent to physical therapy 2-3 times a week for deep tissue massage to her paravertebral muscles. She will be followed up in the clinic in three months' time, unless otherwise indicated. Patient agrees with the plan of care. [facility] 06-13-2022 Note Chief Complaint consultation for anemia and positive occult stool HPI Staff 82 year old female presents on consultation from Dr. Otto for anemia and positive occult stool. Labs completed 06/02- HGB 10.3, HCT 30.1. Reports roughly 10 day history of black stool. Patient was taking Xarelto at the time due to recent DVT. Xarelto has been discontinued. She is no longer experiencing dark stools. She denies abdominal or rectal pain. No change in bowel habits. Denies nausea or vomiting. No unexplained weight loss. Last colonoscopy and EGD completed 10/2016- both normal. History of Present Illness 82 yo female with h/o htn, hypothyroidism, h/o TIA, referred for positive fecal occult blood and iron deficiency anemia; also h/o dark stools for 10 days was placed on Xarelto for DVT and developed the dark stools, discontinued it and they resolved; hb dropped to 10.3, from 13 in November; denies change in bowels currently, no abdominal complaints; abdominal operations significant for appendectomy and cholecystectomy; on baby asa daily; Diclofenac prn. no SBE prophylaxis; last EGD and colonoscopy in 2016; normal stomach; colon with diverticulosis only completed to splenic flexure due to bend/redundancy; Ba enema without mass or obstruction. no fmhx of GI malignancy or IBD. no tobacco use. Review of Systems PHQ Score Initial Depression Screen Score: 0 Physical Exam Vitals & Measurements HR: 66(Peripheral) RR: 16 BP: 128/66 HT: 160 cm HT: 160.0 cm WT: 66.8 kg WT: 66.8 kg BMI: 26.09 HEENT: normal conjunctiva, sclera clear, no scleral icterus, EOM intact, PERRLA, oral mucosa moist without lesions. Neck: trachea midline, no mass, symmetric, no thyromegaly or nodules, no adenopathy Respiratory: lungs CTA, respirations non labored. Cardiovascular: regular rate and rhythm, no murmur, no pedal edema or varicosities. Gastrointestinal: soft, non distended, no tenderness, no masses, no palpable hernias, diastasis recti no, no hepatosplenomegaly; normal bs Lymphatic: no cervical adenopathy, Musculoskeletal: normal gait, digits and nails without infection, nodes, cyanosis, clubbing. Skin: no rashes, no lesions, no ulcers, no subcutaneous nodules, induration. Psychiatric/Neuro: oriented to time, place, person, judgement normal, affect appropriate for age, insight intact, no focal deficits. Tests: labs reviewed, review of old records completed, Discussed surgical options, risks, and possible complications with patient. Assessment/Plan 1. Iron deficiency anemia (D50.9: Iron deficiency anemia, unspecified) plan EGD and colonoscopy for further evaluation, informed consent obtained; will recheck cbc in 4 weeks; call sooner if problems/questions. Ordered: CBC w/ Auto Diff 2. Positive fecal occult blood test, (R19.5: Other fecal abnormalities)Dark stools see # 1 Ordered: CBC w/ Auto Diff Follow-up No qualifying data available Problem List/Past Medical History Ongoing Bigeminy BMI 26.0-26.9,adult Dark stools Edema History of gastritis History of TIA (transient ischemic attack) HTN (hypertension) IBS (irritable bowel syndrome) Insomnia Iron deficiency anemia Left leg DVT Lumbar scoliosis Osteopenia Positive fecal occult blood test Premature atrial beats Thoracic spinal stenosis Varicose veins of legs Venous insufficiency Historical No qualifying data Procedure/Surgical History Colonoscopy (11/01/2016), EGD - Esophagogastroduodenoscopy (11/01/2016), Colonoscopy (02/28/2012), Colonoscopy (07/28/2009), Appendectomy, Arthroplasty of knee, Arthroscopy of knee, Cataract extraction, Cataract extraction, Cholecystectomy, Suspension of bladder. Medications amLODIPine 5 mg Tab, 10 mg= 2 tab(s), Oral, Daily aspirin 81 mg Oral EC Tab, 81 mg= 1 tab(s), Oral, Daily calcium (as carbonate) 600 mg oral tablet, 1200 mg= 2 tab(s), Oral, Daily cyclobenzaprine 10 mg Tab, 10 mg= 1 tab(s), Oral, TID, PRN Diclofenac 75mg Tab-DR, 1 tab(s), Oral, BID Fosamax 70 mg oral tablet, 70 mg= 1 tab(s), Oral, qWeek levothyroxine 50 mcg (0.05 mg) Tab, 50 mcg= 1 tab(s), Oral, Daily liothyronine 5 mcg Tab, 5 mcg= 1 tab(s), Oral, Daily lisinopril 20 mg Tab, 40 mg= 2 tab(s), Oral, Daily Metoprolol tartrate 50 mg Tab nitroglycerin 0.4 mg sublingual Tab, 0.4 mg= 1 tab(s), SubLingual, q5min, PRN omeprazole 20 mg Cap-DR, 20 mg= 1 cap(s), Oral, BID Osteo Bi-Flex, 1 tab(s), Oral, Daily temazepam 15 mg Cap, 15 mg= 1 cap(s), Oral, Once a day (at bedtime) triamcinolone Top 0.1% Crm, 1 dano, Topical, BID Allergies No Known Allergies No Known Medication Allergies Social History Alcohol - Denies Alcohol Use, 06/13/2022 Substance Abuse - Denies Substance Abuse, 06/13/2022 Tobacco Never (less than 100 in lifetime) Tobacco Use:. Never Smokeless Tobacco Use:., 06/13/2022 Family History Cancer: Sister and Brother. Cirrhosis of liver: Father. Heart disease: Mother. [facility] Comment on above: Result Comment: Elec tronically Signed By: EFRAIN LONGORIA, Arie Zelaya\Date and Time Signed: 06/13/22 15:09 EDT 06-01-2022 Note CONSULTATION CONSULTATION DATE: 06/01/2022 HISTORY OF PRESENT ILLNESS: This is a very pleasant and active 82-year-old female, returning to the clinic status post bilateral RFA of L2, L3 and L4, L5 completed on 04/11/2022. At this point, the patient states she has not felt any relief and that the pain is actually increased. Patient states she is unable to stand for long periods of time as she feels it increases the amount of sharp, stabbing and tight pain. She is not able to keep up with her daily activities and sleep is disturbed. She was recently diagnosed with a DVT in her left lower extremity after visiting the emergency department. She has since been placed on Xarelto. Other medications include tramadol 50 mg b.i.d., Mobic 15 mg daily, baclofen 10 mg q.h.s. and Fosamax. Activities such as prolonged standing, lifting, housework, pushing and pulling aggravate her pain. When she does use heat and sit down, her pain decreases. Patient's REVIEW OF SYSTEMS / PAST MEDICAL HISTORY / ALLERGIES and IMAGES have been reviewed and they are noted on the chart. PHYSICAL EXAM: VITAL SIGNS: Blood pressure 121/69, heart rate is 78. Temperature is 97.3. She is 5'3 and weighs 65.3 kg. GENERAL APPEARANCE: Pleasant, appropriate, in no acute distress. FOCUSED EXAM - BACK: Range of motion is functional in lateral rotation and flexion/extension. No reproduction of spinal axial pain indicative of successful RFA. Paravertebral muscles are taut with trigger points identified bilaterally to the lower lumbar region with positive jump response. Ania's point non-tender. MUSCULOSKELETAL: Motor is intact, 4/5 bilaterally. Does not use an assistive device to ambulate. Gait is slow and steady. NEUROLOGICAL: Radicular sensory is intact. Bilateral intact patellar and Achilles reflexes. Negative polyneuropathy. IMPRESSION: Bilateral paravertebral spasms, lumbar spondylosis, lumbar degenerative disc. PLAN: Patient will receive bilateral trigger point injections in the office, which she does consent to today. Stretches were demonstrated for her in the office, and she was instructed to do those twice daily, in addition to menthol heat rub, magnesium and a moist heat source. She will be brought back to the clinic in three months' time, unless otherwise indicated. Patient is in agreement to this. [facility] 06-01-2022 Note CONSULTATION PROCEDURE DATE: 06/01/2022 PREOPERATIVE DIAGNOSIS: Bilateral lumbar paravertebral spasms. POSTOPERATIVE DIAGNOSIS: Bilateral lumbar paravertebral spasms. PROCEDURE: Bilateral lumbar trigger point injections. Subsequent to obtaining informed consent, the patient was placed in the upright standing forward flexion position. A 25 gauge needle with 0.125% Marcaine and 40 mg of Kenalog was placed inside each location. The needle was placed to rest inside the trigger zone. Negative heme. Medication was injected in a fan- like pattern and patient tolerated the procedure well. [facility] Evaluation + Plan note No data available for this section General Surgery [place] Evaluation note No Information [place] [employer] Other Evaluation note No assessment information [facility] Work Phone: History general Narrative - Reported Type Medical History appendectomy Medical History Arthritis Medical History cataracts Medical History diabetes mallitus Medical History gall bladder disease Medical History hypertension Medical History thyroid disease Surgical History appendectomy Surgical History bladder suspension, unspecified Surgical History gall bladder Surgical History knee replacement Hospitalization History see surgical hx [facility] Discharge instructions No data available for this section General Surgery [place] Progress note No data available for this section General Surgery [place] Summary Purpose Family History No Family History Records FoundNo Family History Records FoundNo Family History Records FoundNo Family History Records FoundNo Family History Records Found Advance Directives No Advanced Directives Records Found Advance Directive Response Recorded Date/ Time Advance Directives No October 2:29pm Chief Complaint and Reason for Visit Chief Complaint r91.8 Additional Source Comments Patient Care team informatio n (unrecognized section and content) Team Status: Inactive Member Role Status Dates Santiago Otto MD Primary Care Provider, Attending Edinson castanon Active Team Status: Active Member Role Status Dates Santiago Otto MD Primary Care Provider Active INFORMATION SOURCE (unrecogn ized section and content) DATE CREATED AUTHOR 09/18/2022 [facility] DATE CREATED AUTHOR AUTHOR'S ORGANIZ ATION 11/14/2022 [facility] DATE CREATED AUTHOR AUTHOR'S ORGANIZ ATION 04/13/2023 [facility] DATE CREATED AUTHOR AUTHOR'S ORGANIZ ATION 11/02/2023 [facility] DATE CREATED AUTHOR AUTHOR'S ORGANIZ ATION 11/17/2023 [facility] EPIC REASON FOR VISIT (unrecogniz ed section and content) Returned call Goals (unrecognized section and content) Goals may be documented in a n alternate section FOR RECORDS PERTAINING TO PATIENTS WHO ARE OR HAVE BEEN ENROLLED IN A CHEMICAL DEPENDENCY/SUBSTANCEABUSE PROGRAM, SOME INFORMATION MAY BE OMITTED. This clinical summary was aggregated from multiple sources. Caution should be exercised in using it in the provision of clinical care. This summary normalizes information from multiple sources, and as a consequence, information in this document may materially change the coding, format and clinical context of patient data. In addition, data may be omitted in some cases. CLINICAL DECISIONS SHOULD BE BASED ON THE PRIMARY CLINICAL RECORDS. [employer] provides no warranty or guarantee of the accuracy or completeness of information in this document.
--- NOTE | 2023-11-18 18:06 | ECG_ITS ---
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
--- NOTE | 2023-11-18 18:06 | XR_ITS ---
The [address] [address] Patient Name: CLAIRE NGUYỄN MRN: [id number] date: 1940 Sex: F Assigned Patient Location: ER Current Patient Location: ED.MAIN Accession/Order Number: [id number] Exam Date: 11/18/2023 18:15 Report Date: 11/18/2023 18:45 At the request of: ADDISON MOROCHO Procedure: XR chest 1V EXAM: XR chest 1V HISTORY: sob COMPARISON: 04/04/2023 TECHNIQUE: Chest X-ray AP, 1 view FINDINGS: Support devices: None. Lungs/pleura: No consolidation, effusion, or pneumothorax. Heart and mediastinum: Normal contours. Bones: No acute abnormality identified. XR/XR chest 1V Impression: No radiographic evidence of acute cardiopulmonary process. Electronically authenticated by: CALEB KAUR Date: 11/18/2023 18:45
--- NOTE | 2023-11-18 18:15 | ED_ITS ---
HPI - General Adult General Chief complaint: Upper Respiratory Infection Stated complaint: Shortness of Breath,Diahrrea,Requesting COVID test Time Seen by Provider: 11/18/23 17:40 Source: patient Mode of arrival: walk-in Limitations: no limitations History of Present Illness HPI narrative: To us with a generalized weakness and shortness of breath that been going on at least for the last 2 days, she denies any fever chills or any other complaints.she also denies any runny nose coughing or any abdominal pain or diarrhea Related Data Home Medications Medication Instructions Recorded Confirmed alendronate 70 mg tablet (Fosamax) 70 mg PO QWEEK 06/14/23 06/14/23 amlodipine 10 mg tablet 10 mg PO DAILY 06/14/23 06/14/23 aspirin 81 mg capsule 81 mg PO DAILY 06/14/23 06/14/23 baclofen 10 mg tablet 10 mg PO .QHS PRN muscle spasm 06/14/23 08/23/23 calcium 167 mg-vitamin D3 1.67 cap PO .QD 06/14/23 mcg-magnesium 83 mg capsule duloxetine 30 mg capsule,delayed 30 mg PO DAILY 06/14/23 06/14/23 release (Cymbalta) glucosamine ER 500 mg-chondroitin 1 tab PO DAILY 06/14/23 06/14/23 200 mg tablet,extended release levothyroxine 50 mcg tablet 50 mcg PO DAILY 06/14/23 06/14/23 (Euthyrox) lisinopril 20 mg tablet 20 mg PO DAILY 06/14/23 06/14/23 metoprolol tartrate 50 mg tablet 50 mg PO DAILY 06/14/23 06/14/23 (Lopressor) omeprazole 20 mg tablet,delayed 20 mg PO BID 06/14/23 06/14/23 release tramadol 50 mg tablet 50 mg PO DAILY PRN pain 06/14/23 06/14/23 meloxicam 15 mg tablet 15 mg PO PRN 08/23/23 08/23/23 Allergies Allergy/AdvReac Type Severity Reaction Status Date / Time No Known Drug Allergies Allergy Verified 11/18/23 17:41 Review of Systems ROS Status of ROS 10 or more systems reviewed and unremark able except as noted in history and below PFSH PFS Social History Smoking status: Never smoker Exam Narrative Exam Narrative: Nurses notes and vital signs reviewed and patient is not hypoxic. General: Well-appearing and in no apparent distress. Skin: Warm, dry, no pallor noted. No rash. Head: Normocephalic, atraumatic. Neck: Supple, non-tender. Eye: Pupils are equal, round and EOMI. No scleral icterus. Ears, Nose, Mouth, and Throat: TM are clear, no nasal mucosal hypertrophy. Oral mucosa is moist, no posterior oropharynx erythema, uvula is mid-line Cardiovascular: Regular Rate and Rhythm without murmur, gallop or rub. Respiratory: No accessory muscle use or respiratory distress. Lungs are clear to auscultation, no wheezing, rales or rhonchi Chest Wall: no tenderness Back: No midline thoracic or lumbar vertebral tenderness. No CVA tenderness Musculoskeletal: normal ROM, no calf or popliteal tenderness, no lower extremity edema/swelling GI: Abdomen is soft, non-distended. Normal bowel sounds. No masses appreciated. No tenderness to palpation. No rebound, guarding, or rigidity noted. Neurological: A&O x4. No cranial nerve dysfunction observed. No truncal ataxia. Moves all extremities. Sensation intact. Psychiatric: Cooperative and interactive. Normal mood and affect. Constitutional Vital Signs, click to edit/add: Last Vital Signs Temp 98.2 F 11/18/23 17:42 Pulse 112 H 11/18/23 17:42 Resp 18 11/18/23 17:42 BP 116/81 11/18/23 17:42 Pulse Ox 96 11/18/23 17:42 Course Vital Signs Vital signs: Vital Signs Temperature 98.2 F 11/18/23 17:42 Pulse Rate 112 H 11/18/23 17:42 Respiratory Rate 18 11/18/23 17:42 Blood Pressure 116/81 11/18/23 17:42 Pulse Oximetry 96 11/18/23 17:42 Temperature 98.2 F 11/18/23 17:42 Pulse Rate 112 H 11/18/23 17:42 Respiratory Rate 18 11/18/23 17:42 Blood Pressure 116/81 11/18/23 17:42 Pulse Oximetry 96 11/18/23 17:42 Medical Decision Making MDM Narrative Medical decision making narrative: EKG upon presentation showing sinus tachycardia with a heart rate of [address] elevation or depression The patient did had a recent surgery and right now a D-dimer will be obtained to rule out any PE CBC chemistry as well as chest x-ray and COVID and flu test ordered as well The patient care will be transferred to Dr. Bernabe for further evaluation Discharge Plan Discharge Patient Disposition: Still a Patient
[2023-11-18 18:43] LABS: Basophils Absolute Auto 0.1 10^3/uL (0.0-0.1); Basophils Percent Auto 0.7 % (0.2-2.0); Eosinophils Absolute Auto 0.1 10^3/uL (0.0-0.7); Eosinophils Percent Auto 0.6 % (0.9-7.0); Hemoglobin 10.6 g/dL (12.0-16.0); Immature Granulocytes Abs Auto 0.04 10^3/uL (0.00-0.03); Immature Granulocytes Pct Auto 0.5 % (0.0-0.5); Lymphocytes Absolute Auto 1.9 10^3/uL (1.2-3.8); Mean Corpuscular HGB Conc 32.1 g/dL (29.9-35.2); Mean Corpuscular Volume 90.2 fL (81.0-99.0); Mean Platelet Volume 8.1 fL (9.5-13.5); Monocytes Absolute Auto 0.7 10^3/uL (0.3-0.8); Monocytes Percent Auto 8.8 % (1.7-12.0); Neutrophils Absolute Auto 5.3 10^3/uL (1.4-6.5); Neutrophils Percent Auto 66.4 % (43.0-75.0); Platelet Count 209 10^3/uL (150-450); Red Blood Count 3.66 10^6/uL (4.20-5.40); Red Cell Distribution Width 14.9 % (11.0-15.0); White Blood Count 8.1 10^3/uL (4.0-11.0)
[2023-11-18 18:56] LABS: Influenza Virus A Antigen Negative; Influenza Virus B Antigen Negative; Internal Control Within Normal Limits; SARS-CoV-2 Ag NEGATIVE (NEGATIVE)
[2023-11-18 18:58] LABS: Alanine Aminotransferase 15 U/L (14-59); Albumin Globulin Ratio 0.9; Albumin Level 3.2 g/dL (3.4-5.0); Alkaline Phosphatase 104 U/L (46-116); Anion Gap 11.7; Aspartate Amino Transferase 17 U/L (15-37); BUN Creatinine Ratio 19.1; Bilirubin Total 0.5 mg/dL (0.2-1.0); Calcium 10.1 mg/dL (8.5-10.1); Carbon Dioxide 26.4 mmol/L (21.0-32.0); Chloride 103 mmol/L (98-107); Estimated GFR (African America 39 (>=60); Estimated GFR (Non-African Ame 33 (>=60); Globulin 3.6 g/dL; Glucose 134 mg/dL (74-106); Potassium 4.1 mmol/L (3.5-5.1); Sodium 137 mmol/L (136-145); Total Protein 6.8 g/dL (6.4-8.2); Troponin I High Sensitivity 8.6 pg/mL (4.0-51.3)
[2023-11-18 19:22] LABS: D Dimer 18.15 mg/L FEU (<=0.59)
--- NOTE | 2023-11-18 19:23 | CT_ITS ---
The [address] [address] Patient Name: CLAIRE NGUYỄN MRN: [id number] date: 1940 Sex: F Assigned Patient Location: ER Current Patient Location: ER Accession/Order Number: [id number] Exam Date: 11/18/2023 19:44 Report Date: 11/18/2023 20:21 At the request of: AURELIO ANDERSON Procedure: CT head/brain wo con EXAM: CT head/brain wo con HISTORY: head injury COMPARISON: None. TECHNIQUE: Axial CT scans through the head were obtained without IV contrast administration. Dose reduction techniques were achieved by using: automated exposure control and/or adjustment of mA and /or kV according to patient size and/or use of iterative reconstruction technique. FINDINGS: There is no evidence of acute intracranial hemorrhage or abnormal extra-axial fluid collection. No mass effect or midline shift is seen. There is no evidence of large acute territorial infarction. There is no hydrocephalus. Mild enlarged ventricles and sulci, consistent with age appropriate cerebral atrophy. There are scattered small low-attenuation areas in supratentorial white matter, likely represents chronic microvascular ischemia. There are atherosclerotic calcifications of anterior and posterior circulations. To the limit of CT, the posterior fossa appears unremarkable. No definite acute fracture is identified. Soft tissues are unremarkable. The visualized orbits show no abnormality. The visualized paranasal sinuses show no air-fluid level. Mastoid air cells are clear. CT/CT head/brain wo con IMPRESSION: No CT evidence of acute intracranial abnormality. Mild chronic microvascular ischemia and involutional changes. Electronically authenticated by: FARIDA CALLOWAY Date: 11/18/2023 20:21
--- NOTE | 2023-11-18 19:23 | CT_ITS ---
[address] [address] Patient Name: CLAIRE NGUYỄN MRN: [id number] date: 1940 Sex: F Assigned Patient Location: ER Current Patient Location: ER Accession/Order Number: [id number] Exam Date: 11/18/2023 19:44 Report Date: 11/18/2023 20:45 At the request of: AURELIO ANDERSON Procedure: CT angio chest EXAM: CT angio chest HISTORY: elevated d-dimer COMPARISON: CT chest 04/04/2023, 10/23/2022. TECHNIQUE: Thin section transaxial slices were acquired through the chest with intravenous contrast per PE protocol. Coronal and sagittal reconstructed images were reviewed. FINDINGS: PULMONARY ARTERIES: There is good opacification of the pulmonary vasculature. No pulmonary arterial filling defects are present. VASCULATURE: No aneurysm. Moderate calcified and noncalcified plaques at the thoracic and visualized upper abdominal aorta. LUNGS/AIRWAYS: No areas of consolidation is seen. Redemonstrated is an approximately 2 x 1.5 cm geographic shaped opacity in the right upper lobe posterior segment, stable since 10/23/2022. Bibasilar mild atelectasis is noted The central airways are patent. PLEURAL CAVITY: No pleural effusion or pneumothorax. HEART/PERICARDIUM: The heart is mildly enlarged. No pericardial effusion. MEDIASTINAL/HILAR LYMPH NODES: No pathologically enlarged lymph nodes. CHEST WALL/AXILLA/LOWER NECK: Normal. VISUALIZED UPPER ABDOMEN: No acute abnormality. Right renal cyst. Status post cholecystectomy. BONES: No acute process. There is mild thoracic levoscoliosis. CT/CT angio chest IMPRESSION: 1. No evidence of pulmonary embolism. 2. No evidence of pneumonia. An approximately 2 x 1.5 cm geographic shaped opacity within the right upper lobe of uncertain etiology, stable since 10/23/2022. Follow-up imaging in one year is recommended to document stability. 3. Mild cardiomegaly. Atherosclerosis. Electronically authenticated by: FARIDA CALLOWAY Date: 11/18/2023 20:45
[2023-11-18 21:15] LABS: Bilirubin Urine NEGATIVE (NEGATIVE); Blood Urine TRACE-I (NEGATIVE); Clarity Urine CLEAR (CLEAR); Color Urine LT. YELLOW (YELLOW); Glucose Urine UA NEGATIVE (NEGATIVE); Ketones Urine NEGATIVE (NEGATIVE); Leukocyte Esterase Urine NEGATIVE (NEGATIVE); Nitrite Urine NEGATIVE (NEGATIVE); Protein Urine NEGATIVE (NEG/TRACE); Urobilinogen Urine 0.2 EU/dL (0.2-1.0)
[2023-11-18 21:20] LABS: Urine Microscopic Indicated YES
[2023-11-18 21:22] LABS: Bacteria Urine NONE SEEN #/HPF (NONE SEEN); Cast Seen? SEEN #/LPF (NONE SEEN); Crystals Seen? None Seen #/HPF (None Seen); Hyaline Casts Urine RARE; Mucus Urine NONE SEEN (NONE SEEN); Squamous Epithelial Cell Urine RARE #/LPF (NONE/RARE); Transitional Epi Cells Urine RARE #/LPF (NONE SEEN); Urine Culture Indicated NO; WBC Urine 0-2 #/HPF (NONE SEEN)
== END 2023-11-18 21:43 | disposition home or self-care (01) ==
PROVIDERS: Emergency Medicine; Emergency Provider Internal Medicine; PCP Family Medicine
DX: R19.7 Diarrhea, unspecified (principal); Z20.822 Contact with and (suspected) exposure to COVID-19; Z79.82 Long term (current) use of aspirin; Z79.899 Other long term (current) drug therapy; Z79.890 Hormone replacement therapy
CPT/HCPCS: 36415; 70450; 71045; 71275; 80053; 81001; 84484; 85025; 85378; 87635; 87804; 87811; 93005; 99285; Q9967

== ENCOUNTER 2023-12-07 13:20 | Outpatient (OUT) | payer MEDICARE, SELFPAY ==
--- OUTSIDE RECORDS SUMMARY | 2023-12-07 13:32 | XMS_ITS | CCD ---
Author Name Unknown Address [address] [facility] [address] [place] [address] Organization [facility] Care Team Providers Care Placement Manager Name Role Phone Santiago Otto Primary Care Physician [phone] Arie BERGERON Attending Unavailable Santiago Oconnor Referring Unavailabl Arie Jones Attending Unavailable Arie BERGERON Attending Unavailable Arie BERGERON Attending Unavailable Rachana Kent Unavailable MD Santiago Otto Primary Care Provider [phone] MD Santiago Otto Attending Provider [phone] Santiago Otto Attending Unavailable Santiago Otto Primary Care Unavailable Santiago Otto Admitting Unavailable LUIZAY ., DR HENDERSON Primary Care Unavailable HOY ., DR HENDERSON Attending Unavailable HOY ., DR HENDERSON Admitting Unavailable HOY ., DR HENDERSON Consulting Unavailable [place], DR SHERYL Navarrete Consulting Unavailable ARROYO ., [...] HOY ., DR HENDERSON Primary Care Unavailable [place], DR SHERYL Navarrete Consulting Unavailable HOY ., [...] RACHANA Admitting Unavailable BLADES, RACHANA Attending Unavailable [place], DR SHERYL Navarrete Consulting Unavailable HOY ., DR HENDERSON Primary Care Unavailable ZIEBER, DR RIGO Love Consulting Unavailable BLADES, RACHANA Consulting Unavailable GARCIA ., DR IVANIA Ledezma [...] Admitting Unavailable ARROYO ., STARR Admitting Unavailable ARROOY ., STARR Attending Unavailable HOY ., DR [...] Medication Allergies] Propensity to adverse reactions (disorder) [facility] Medications Current Medications Medication Drug Class(es) [...] Onset: 08-24-2022 Episodic Other aftercare (1 source) long term (current) use of aspirin; Translations: [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 CLINICIAN CURRENT USE OF ASPIRIN] Onset: 08-24-2022 Episodic Other aftercare (1 source) Other terminologist (current) drug therapy; Translations: [OTH HALFWAY CURRENT DRUG THERAPY] Onset: 05-01-2022 Episodic Other [...] Coding Summaryon 10-22-2023 Coding Summary HTMLBase 64 MilwrkjwLTm4yDh+PGhlYWQ+PE1FV EBcY87niOKosE3jZ8HCGLkKYisoZZ FQOGjQGcTslrQsXW5nqMVcHKCg IC8+OI4cACCzPqqccDHbu7A5iPI8S 72egq8rBGcfuLR6XVVmLrOhyacwo7 nsuZv2DFnmSuubMnTz WZBvrY12DAZ1tT65Vf68lTMoeXQwf 0eyqSv0BwTrYMYhNKQ6jKghLMnor2 UyXAPsO64loCGkg0F8 TCXfxUthlVKwEtKubHO3dZ8aVNrkn bvwa1bvuiziQcf8ud09bDAft9V3eM U9F8RpshO3DVMqmDCr MvctzFDHlD9ftbdub1yeryviNiOkN VDzNQg8SNx2LSGnbQxiHeOqOJ30ST G1TXZnirAsY2AvXOWn yAbjGqK5s8D7Ej4RM7YGPnhxS8PJT UFSWTwvdGQ+WX61ap89G0DlJlwyDa m4LLFrBKY9sRU3xT7p UHQmIBdma3T8aRZ9A5NkdpJtkv9yj 3anQZJzZSdvO24xuPRin2M9CAVriE A6SUCanUxmDkEooA96 Oyc+FKTxjXrlu1XyElxnc9aem3eyk Pm0HnmkHOGefkHvoRnrRRY9y9KnJu 0eEAFtdHM5yFT9pZ9v IwCkUnW6DDwmD591TjHpxMNvYcdzA 52cM8YuyGU+RHTnJpz9DDVooXkcSH 7lH3SxOGDiivvqgHJr tAcxXP6fDIAufaqvIOZknD4pSRQaW 2n7UxSeFpJ1TBpbS6TaPSPtmewrUw 79nA6mJmVfAsC7JUki R8WbxjJ1UOFmsQFcZDsgUBX5H75jh 9F6SLJfLUFeOOG8oXA3iR4rqUaupv ogbGVmdDsgdmVydGlj XFbhPLzyZ369JFCdqPghUvJkOUwdE yBEYXRlOiAgMTIvMTgvMjAyMzwvdG Q+EAPiGBA4jKngZVFh pXGxBZinUf4asHadoQrcJA6zKQIij amaGOQwmZ5pJTVleKEptBrpDF6tVV Ssmnepx710EeHiJMW9 RSQkzDMjF0PciJ1gYbUfFQIkLLNxF 8PkmLPwFMcpM977GMxnDsG3SSFtrk NeF9WbSNKpiLihYoL9 y3J8Tv6Lo9FwescsD2JybHUyHuTiH auuNZz5B9ZpUmefbVJ+OB45IHMiMX 80SLm2TUL0aBnsLEvm RBSxL7MrjY4aQsYcRQJjEXKsOzy+P HRhYmxlIHdpZHRoPScxMDAlJyBzdH huXS5dOe0xKTQfBLPt uLplpHMfNjMmq6ypHCCaJBreKL4ft VhiQ3JsiZX2KJZzw0a6Mi52Q00kE9 JvdXA+LQWoaDW0aFV2 dV2gHmPcFsS9CRkkN004ZiCeqZYqC yqqx7rop1bwsEv7GcO7EKZwiaGvhN lnKQL7r3KkPo38S22x APjeAGKqSHNpKUXfMKLwxHhoie7yt G9wIi8+BDYakUA7tVB9tT6vVnGtKk W9CJcgH833TaLroIKa Uvxxk1vfv5eydNy0AvPfUGWrogRws PizBSM0l3RsYm23V7JjvRlqf2HxYh y1in45cTRoo3U5lZF6 V9DvUIVptwfrjZTfjAksVD8dMKPmr wyqXDVrdD9wHNZlQ0d7PwWfPjJ3FU icR4QixzC6LMPeeRWj KLHnvXYTcB3xwuyro1tkatpoSqHlA YZkTLb8BEr3BRHmwRjvBeLdUYN4Db Y7VNU4aGGkhF4zaEql gezyqH2cPte+LVG6bVCtaRSUYD4mF jwvdGQ+MGUoJPD0pLswAKbpTYHoyR 4uRQOmO6z8LsVyRaR8 XXmuF1MafaT9FYOtxTBkHUItrUZOd Z0ffkgox1sssdpgNgQuJQFjXTa7HB r5ALEglCvaWxQfZMA7 BcA5OCE3dSHeaZ4pdMpvmzjogF1sJ yc+AmbhkLsiKVQ6TUi9Y8OgCnn2SX IjgHswUZ2jeUGsPHau Uc9trGuynJjmTW9hFPItcyxfx008Q oJbn2flYJLkeJRxYWrbOQY9B47je7 J0LPZkUSHuSBR5lBL5 nM5feRqkfbleySPdiNgwilBakLwhR WkhKYgxD759NLWfyGyaJcDiGZd4F0 HyLgi7KADfgFrpGS4z lACdLOypKi1tlDqfgSagAF1cPTBjn oxji613NhNvx0qtOMQbtVPhVQcmLD G8C69nv7S1PZNyYREp UBB3hFL1mO0gtNvfgrlhoDPjoPzdy cRoeXzxZQxlPDtzD594NXCsaTxdJo YiqFf5S7EsDjw6JYEf zGgcUT5quXJmHGwjYd3teBrydHylV X4gKPBbzqijc135ChTmk0veIPQjrB JwWVetPNW3F14dk1V9 UQPnTTNuLXR9dRI2pG4diEsbotuyg FQgpDhlnwBsqJnnZTmqCWszV437NA RvcDsnPlBhdGllbnQg XWblVHq7L5CyJsicoBT+JX77WJUeT G34qXPzgGGvy5ugbHs0NuPrUXFlQF S3oUfnMLymf0TuFJDn D87fnKDqp7O5RZRfbRimkEOyRcEui NN1eQ4sLYqdwonnf9wbwgrgYspcm0 jmkb04zB43U81cNGdy CYYnDGMdYWPfAOYpaEvfwt4ztI1cU i8+ZVAgvXJ6dKX2gR1lURQeMcZ7BV gbG480BxQwsTWhYtvz l0kng8yhsYw4HvR3DLRvdiJbmBlyY ZJ0d7VtRp22K44eSDbsWVXsWGVeRD QlRRTzpYawla5ddU5j Ii8+FBUinUZ8vAO4pN1yQkJnNsL9W EdzQ801IjNxdGEqYkvoI60wQ7DjsI A+ESOmFif2OURvdDnp WI1avTNfIMdrUe8lQND5DkPhAuDlG KjcU5ErZFEubacumhikxRZ4GSPxUK IvnU87Bm1pyFwbMEWn oZNCpK0fswsuv7zdqygzLyJuKAKkO Oj1OXd1OSVsePyhMsZrAXP0CmU8UI F5hZWzfV0yuXttpcbr nW9eD8BbBWVrpqrjPx14hZ5mYzFaU iG4LJqsXgk+UkFJRlNOSURFUiwgTU FSWSBBTElDRTwvdGQ+ GVYqMIW9jZggUGmvQDKkoZ1xHDEoE 8s9PjLtIeD0UVnkS0RmWZBbmdroOy 22kE7gLaDfEvV8PPkn K2FcypI6HPJasWTzEPbqLBS3X67iv 1S2WXOlCDDvTIR7cDE4qB1gtBiiqw ogbGVmdDsgdmVydGlj LGvzGJfiV190YIMwcBeiLiU5EzVjM qP2Mum6Z9LuGtp9FWDulWwiDQ3faM KqOEfjAa3reCdchYdy ZE3zMOPhrxafCSSmtK1lXNTmqIRrd QxaVS3eFBYsevhpq244WbPaZNY8SQ BskPQgF8PliU9mQyJe UZJtTWLqE2TdwBMbBWutN833BLgzH vG3VZGpauMbE3JrSAMqsLzdScA0c7 E2Gs99ZCOZZDAkjagx dGQ+EPZkSPQ1lJhhTMeiPFVumR2xL GWdN4s7KeGwHoM7VCvqO1EkITSgmh faDu86aO0sWpZbAlZ8 LVvnS4StxgC7NVQtuWHiEIqcAVM3L 34zm8D4PZXvYBXcLYA1wNY6kZ1cxE lnbjogbGVmdDsgdmVy nBznXSpvIByuT629IYTlaWliRePLN UFMRTwvdGQ+VELnZGK4zOjpVXciCU OxmE3hLGOjP9h6YpFo CeP3OLqiH8MtGMMipfcnDg08jY9gJ pIeZnB8KUaoY0IrzhC0BHFnfXGcJI dhMBZ6Z48lt5N7HDIo HMElFQI4nMI0xZ4exLavozygzAYcb LwmemUjbRztECroOOjrL955GKVppD hmIkracHG8tZEjyUrg dGQ+NM98jp07V0GxVycqTxo2UPFvD HJ3wYV4dG4pAVGiKAvky4H8bCQ8F2 SofsBquf9yi4ejBSKv SXujY91aaAFol1F5ZKIhdNZ1YLXoj EzxQzJviO09Tqj+ASPxcUgph2CzBe roj3nnm9ontPb2JdIl VWKjecEtcKitMUL7t7VdEa87V37gE KrpTFLzJRJrHCMeBVCkqCfiun3bpT 9wIi8+EJTwcVB7rOZ8 tH8xXxDyAbM1GCjuR289ItCuwAMzN znvl6wyp4ejyDl2IuQxEBGaszNotP fgIZG3w4IbKe55B7Dh nZrht9FoFkz8vd96qYTzp6X8fEC4T 9JbCHVsroqjqRUecUlpJS2rOWTkyh okKVJcaP3vJKYwZ6c6 PzOwRdV1EKseK2DgpuR1PYKefEUmK ZSkcDLPlT3utkmei8xmphjsMdFtSN AqQGj9GYq8QQWylYnf WbBjTAN9TlL3SPW2pJOkwF9iuCzkr dcbxA5jYhh+UQm9g3ebuGKdPO3mjJ R4GA33OR06nIQqo0L1 aXL6P0RvBUUkrhdqwlzjqOE4GUWfB QHzcT68Lj1vnYurAh4jSSQeXYP2OC TouGIdP1SovX1yPuIm RZGdFPDaO4WzsIEfCRrlR113TPiaV cE6UWQnnoHsV1ZmUBAgfOocEbI9h9 B2Dk3CSS90ZR18SW69 yNXpa2C4wWD5R5WkFKHkicgwdktrz KE0IAPcZFUulE53Zd9oaQejUt4fKZ JaTWZ0MUHveWLvP2Od rQ5uJqKaBHUeBQRtH7NgyCHrSOexZ 880QSfmCoA8NOVegxHcH5CwWDDxsV xkQtM0h5Y0Zl8BDj95 NI73OC63jIYqc9S8gBG2D0VxUKYal cpmhpsouUY1PYYaBYLliF78Ai5afV hqYr4tYKUsOJA1BYLp iUKxD7OceL7sEmHqBLPcIINxF1Nbm ZCbBOncZ738PTdfOwA2ZTFixxRhO1 HsUFCrkWsfJeS5e1N3 Qd4ZFEbewts4H4QrKolowSJ+PC90Y KNfAH72gCXxcOTsu8ttgZk0RmOwYB DmTPF2aTpsYVxqu6Gi ZXI (more content not included)... Normal [facility] C Bloodon 10-18-2023 C Blood No growth at 5 Days Normal [facility] Comment on above: Performed By: #### 2 [id number], [id number] #### [facility] (DEFAULT) [address] [place] [address] 18328 Consent Formson 10-17-2023 Consent Forms [id number][facility] 10-17-2023 Outside Records [id number]#1.00[facility] Provider Orderson 10-17-2023 Provider Orders [id number][facility] Tele[facility]pson Telemetry Strips [id number]#[facility] The[facility] Documentation on 10-16-2023 Therapeutic Documentation [id number]#1.00[facility] C Bloodon 10-16-2023 C Blood patient went to [facility] scan Nurse from [address] [place] [address] will call when patient is back to her room @1440 jwilkins No growth at 5 Days Normal [facility] Comment on above: Performed By: #### 6 [id number] ####[facility] (DEFAULT)[address] [place] [address] 85302 CRPon 10-16-2023 CRP 3.1 mg/dL High <=0.5 [facility] Comment on above: Performed By: #### 2 [id number], [id number] #### [facility] (DEFAULT) [address] [place] [address] 10498 Inpatient Patient Summaryon 10-16-2023 Inpatient Patient Summary [address] [id number] Patient Discharge Instructions Name: ALICIA NGUYỄN : 1940 Patient Address: [address] [place] [address] Primary Care Provider: Name: SANTIAGO OTTO After you are discharged if you find you have any questions, please, call [phone] ext [phone] to speak to a nurse. The Pharmacy at [facility] is open Sunday through Sunday [...] alcohol and/or drug addiction problems; contact the [facility] 28/05 Crisis Hotline -Text 7RPIU nc [phone]. If you received any narcotics, sedation, or [...] business decisions or sign any legal documents [facility] would like to thank you for allowing us to assist you with your healthcare needs. The following includes patient education materials and information regarding your injury/illness. ALICIA NGUYỄN has been given the following list of follow-up instructions, prescriptions, and patient education materials: Follow-up Instructions With: Address: When: JOB AGUILAR DO [address] [facility] [address] [place] [address] Within 10 to 12 days Comments: orthopedic follow up With: Address: When: Jamal Vizcarra [address] [place] [address], [address] [place] [address] Business (1) 10/26/2023 10:30 AM [...] 30 mg o (more content not included)... [facility] Pharm[facility] Noteon 10-16-2023 Pharmacy Note I have [...] list against external fill history and available AUDIO VISUAL MANAGER medication history to ensure accuracy. Reviewed regimen upon discharge which is appropriate and correct. Did not certified addiction counselor patient is going to senior living. [Electronically Signed on: 10/16/2023 11:12 EST] Jamal Butler [Verified on: 10/16/2023 11:12 EST] Jamal Butler Normal [facility] Sed Rateon 10-16-2023 Sed Rate 83 mm/hr High 0-20 [facility] Comment on above: Performed By: #### 2 [id number], [id number] #### [facility] (DEFAULT) [address] [place] [address] .Auto Diff 1on 10-15-2023 Auto [place] % 9 % Normal 11-16 [facility] Comment on above: Performed By: #### 2 228273, [id number], 28844993, 0302252, 7695092 #### [facility] (DEFAULT) [address] [place] [address] Baso Abs# 0.0 x10 Normal 0.0-0.2 [facility] Comment on above: Performed By: #### 2 182648, [id number], 28454165, 5724645, 2904635 #### [facility] (DEFAULT) [address] [place] [address] Basophils/100 WBC (Bld) 0.2 % Normal 0.2-2.0 [facility] Comment on above: Performed By: #### 2 512771, [id number], 15945852, 2022821, 9159534 #### [facility] (DEFAULT) [address] [place] [address] Eos Abs# 0.1 x10 Normal 0.0-0.4 [facility] Comment on above: Performed By: #### 2 316771, [id number], 44838737, 8007251, 7278484 #### [facility] (DEFAULT) [address] [place] [address] 70798 Eosinophils/100 WBC (Bld) 0.8 % Low 0.9-4.0 [facility] Comment on above: Performed By: #### 2 441565, [id number], 26131249, 7341992, 5529082 #### [facility] (DEFAULT) [address] [place] [address] 51383 Lymph Abs# 1.1 x10 Low 1.3-2.9 [facility] Comment on above: Performed By: #### 2 577849, [id number], 14722661, 4885169, 2106215 #### [facility] (DEFAULT) [address] [place] [address] 06581 Lymphocytes/100 WBC (Bld) 13 % Low 14-48 [facility] Comment on above: Performed By: #### 2 243982, 1333219305, 75531566, 1773262, 5186229 #### [facility] (DEFAULT) [address] [place] [address] Boone Abs# 0.8 x10 Normal 0.0-0.8 [facility] Comment on above: Performed By: #### 2 853082, [id number], 16314508, 5764992, 6087191 #### [facility] (DEFAULT) [address] [place] [address] Neut Abs# 6.5 x10 Normal 1.5-9.2 [facility] Comment on above: Performed By: #### 2 477685, [id number], 50964350, 3230261, 2447908 #### [facility] (DEFAULT) [address] [place] [address] Neutrophils/100 WBC (Bld) 76 % Normal 44-88 [facility] Comment on above: Performed By: #### 2 902268, [id number], 08543769, 5567260, 9168106 #### [facility] (DEFAULT) [address] [place] [address] Standardon 10-15-2023 Breakpoint Chem Normal [facility] Comment on above: Performed By: #### 2 709042, [id number], 79041175, 8156258, 6493904 #### [facility] (DEFAULT) [address] [place] [address] eGFR Non AA >60 Invalid Interpretation Code [facility] Comment on above: Performed By: #### 2 070815, [id number], 26474995, 0183196, 7371429 #### [facility] (DEFAULT) [address] [place] [address] eGFR AA >60 Invalid Interpretation Code [facility] Comment on above: Performed By: #### 2 826932, [id number], 68029816, 7989026, 3485412 #### [facility] (DEFAULT) [address] [place] [address] Anion gap [Moles/Vol] 7.4 mmol/L Normal 5.0-19.0 [facility] Comment on above: Performed By: #### 2 972066, [id number], 60346228, 8281148, 6664008 #### [facility] (DEFAULT) [address] [place] [address] 57697 Calcium [Mass/Vol] 8.8 mg/dL Low 8.9-10.3 [facility] Comment on above: Performed By: #### 2 378929, 3456061854, 41279512, 8383308, 0043234 #### [facility] (DEFAULT) [address] [place] [address] 54169 Chloride [Moles/Vol] 106 mmol/L Normal 101-111 [facility] Comment on above: Performed By: #### 2 834501, 7481414859, 09736437, 1313531, 2883732 #### [facility] (DEFAULT) [address] [place] [address] 84969 CO2 [Moles/Vol] 26 mmol/L Normal 21-32 [facility] Comment on above: Performed By: #### 2 777885, 0798234745, 98427512, 2585424, 9640211 #### [facility] (DEFAULT) [address] [place] [address] 07077 Creatinine [Mass/Vol] 0.88 mg/dL Normal 0.60-1.30 [facility] Comment on above: Performed By: #### 2 162696, [id number], 70385724, 8699273, 4495241 #### [facility] (DEFAULT) [address] [place] [address] 15648 Glucose [Mass/Vol] 109.0 mg/dL Normal 74.0-118.0 [facility] Comment on above: Performed By: #### 2 540750, 6806105585, 13142933, 2967187, 8301875 #### [facility] (DEFAULT) [address] [place] [address] 20915 Osmolality 273 mOsm/L Invalid Interpretation Code [facility] Comment on above: Performed By: #### 2 308363, 7348854483, 41043275, 5446098, 8736044 #### [facility] (DEFAULT) [address] [place] [address] Potassium [Moles/Vol] 4.4 mmol/L Normal 3.6-5.1 [facility] Comment on above: Performed By: #### 2 321020, [id number], 00181883, 7367496, 8712922 #### [facility] (DEFAULT) [address] [place] [address] Sodium [Moles/Vol] 135.0 mmol/L Low 136.0-144.0 [facility] Comment on above: Performed By: #### 2 500042, 8446140581, 55913430, 2624667, 3884639 #### [facility] (DEFAULT) [address] [place] [address] Urea nitrogen [Mass/Vol] 19 mg/dL Normal 8-26 [facility] Comment on above: Performed By: #### 2 877885, 8435714671, 87942536, 9457068, 5420560 #### [facility] (DEFAULT) [address] [place] [address] Urea nitrogen/Creatinin e [Mass ratio] 21.5 mg/mg High 4.6-16.2 [facility] Comment on above: Performed By: #### 2 937591, 9937231683, 33502269, 7171881, 8777413 #### [facility] (DEFAULT) [address] [place] [address] CBC w/ Auto Diffon 3 Erythrocyte distribution width (RBC) [Ratio] 15.3 % High 11.5-15.0 [facility] Comment on above: Performed By: #### 2 354386, [id number], 31067140, 9404697, 9165611 #### [facility] (DEFAULT) [address] [place] [address] Hematocrit (Bld) [Volume fraction] 29.8 % Low 33.7-40.4 [facility] Comment on above: Performed By: #### 2 958760, 9579258020, 01234430, 2320542, 1659182 #### [facility] (DEFAULT) [address] [place] [address] Hemoglobin (Bld) [Mass/Vol] 9.9 g/dL Low 11.3-15.9 [facility] Comment on above: Performed By: #### 2 545596, 6969653706, 25425947, 1509073, 9567455 #### [facility] (DEFAULT) [address] [place] [address] Man Diff? Auto Invalid Interpretation Code [facility] Comment on above: Performed By: #### 2 297495, 5344685845, 35076585, 9304998, 3046581 #### [facility] (DEFAULT) [address] [place] [address] MCH (RBC) [Entitic mass] 30 pg Normal 24-34 [facility] Comment on above: Performed By: #### 2 506606, 7369959389, 91941178, 7690972, 2073930 #### [facility] (DEFAULT) [address] [place] [address] MCHC (RBC) [Mass/Vol] 33 g/dL Normal 26-37 [facility] Comment on above: Performed By: #### 2 079350, 7673293062, 48197613, 5269122, 1771120 #### [facility] (DEFAULT) [address] [place] [address] MCV (RBC) [Entitic vol] 90 fL Normal 81-100 [facility] Comment on above: Performed By: #### 2 569281, 1594523002, 71885588, 1070003, 5799540 #### [facility] (DEFAULT) [address] [place] [address] Platelet 363 x10 Normal 138-427 [facility] Comment on above: Performed By: #### 2 126204, [id number], 27111505, 9825883, 7270891 #### [facility] (DEFAULT) [address] [place] [address] Platelet mean volume (Bld) [Entitic vol] 6.1 fL Low 6.3-10.2 [facility] Comment on above: Performed By: #### 2 855432, 9619447984, 96997773, 9222816, 5920193 #### [facility] (DEFAULT) [address] [place] [address] RBC 3.31 x10 Low 3.70-5.30 [facility] Comment on above: Performed By: #### 2 208416, [id number], 86596787, 7710872, 1692227 #### [facility] (DEFAULT) [address] [place] [address] WBC 8.5 x10 Normal 3.5-10.5 [facility] Comment on above: Performed By: #### 2 [id number], [id number], [id number], [id number], [id number] #### [facility] (DEFAULT) [address] [place] [address] 33066 CRPon 10-15-2023 CRP 2.1 mg/dL High <=0.5 [facility] Comment on above: Performed By: #### 2 [id number], [id number], [id number], [id number], [id number] ####[facility] (DEFAULT)[address] [place] [address] Nutrition Noteon 10-15-2023 Nutrition Note Per intake records, Pts avg 75+% of meals. Last BM 10/13. 10/15 labs reviewed, CRP/sed rate slowly improving. PICC line in place for IV atb. Discharge anticipated for tomorrow. Normal [facility] Sed Rateon 10-15-2023 Sed Rate 78 mm/hr High 0-20 [facility] Comment on above: Performed By: #### 2 [id number], [id number], [id number], [id number], [id number] ####[facility] (DEFAULT)[address] [place] [address]7076 XR Chest 1 View Frontalon XR Chest [...] DO 10/15/23 1:04 pm Technologist: Peggy LOMELI [facility] C Fluidon 10-14-2023 C Fluid Moderate growth [...] <=0.5 Verified Vanc S 0.5 Verified Normal [facility] Comment on above: Performed By: #### 2 [id number], [id number] #### [facility] (DEFAULT) [address] [place] [address] 005[address] CRPon 10-14-2023 CRP 1.8 mg/dL High <=0.5 [facility] Comment on above: Performed By: #### 2 [id number], [id number] #### [facility] (DEFAULT) [address] [place] [address]136 Sed Rateon 10-14-2023 Sed Rate 74 mm/hr High 0-20 [facility] Comment on above: Performed By: #### 2 [id number], [id number] #### [facility] (DEFAULT) [address] [place] [address]19 .Auto Diff 1on 10-13-2023 Auto [place] % 5 % Normal 11-16 [facility] Comment on above: Performed By: #### 2 [id number], [id number] #### [facility] (DEFAULT) [address] [place] [address] 30179 Baso Abs# 0.0 x10 Normal 0.0-0.2 [facility] Comment on above: Performed By: #### 2 [id number], [id number] #### [facility] (DEFAULT) [address] [place] [address] Basophils/100 WBC (Bld) 0.2 % Normal 0.2-2.0 [facility] Comment on above: Performed By: #### 2 [id number], [id number] #### [facility] (DEFAULT) [address] [place] [address] Eos Abs# 0.0 x10 Normal 0.0-0.4 [facility] Comment on above: Performed By: #### 2 [id number], [id number] #### [facility] (DEFAULT) [address] [place] [address] Eosinophils/100 WBC (Bld) 0.1 % Low 0.9-4.0 [facility] Comment on above: Performed By: #### 2 [id number], [id number] #### [facility] (DEFAULT) [address] [place] [address] Lymph Abs# 1.0 x10 Low 1.3-2.9 [facility] Comment on above: Performed By: #### 2 [id number], [id number] #### [facility] (DEFAULT) [address] [place] [address] Lymphocytes/100 WBC (Bld) 9 % Low 14-48 [facility] Comment on above: Performed By: #### 2 [id number], [id number] #### [facility] (DEFAULT) [address] [place] [address] Boone Abs# 0.6 x10 Normal 0.0-0.8 [facility] Comment on above: Performed By: #### 2 [id number], [id number] #### [facility] (DEFAULT) [address] [place] [address] 8[address] Neut Abs# 10.1 x10 High 1.5-9.2 [facility] Comment on above: Performed By: #### 2 [id number], [id number] #### [facility] (DEFAULT) [address] [place] [address] 44568 Neutrophils/100 WBC (Bld) 86 % Normal 44-88 [facility] Comment on above: Performed By: #### 2 [id number], [id number] #### [facility] (DEFAULT) [address] [place] [address] 87749 BMP Standardon 10-13-2023 Breakpoint Chem Normal [facility] Comment on above: Performed By: #### 2 [id number], [id number] #### [facility] (DEFAULT) [address] [place] [address] 70157 eGFR Non AA >60 Invalid Interpretation Code [facility] Comment on above: Performed By: #### 2 [id number], [id number] #### [facility] (DEFAULT) [address] [place] [address] 23818 eGFR AA >60 Invalid Interpretation Code [facility] Comment on above: Performed By: #### 2 084644, [id number] #### [facility] (DEFAULT) [address] [place] [address] 47811 Calcium [Mass/Vol] 8.5 mg/dL Low 8.9-10.3 [facility] Comment on above: Performed By: #### 2 [id number], [id number] #### [facility] (DEFAULT) [address] [place] [address] 87243 Chloride [Moles/Vol] 105 mmol/L Normal 101-111 [facility] Comment on above: Performed By: #### 2 [id number], [id number] #### [facility] (DEFAULT) [address] [place] [address] 17292 CO2 [Moles/Vol] 24 mmol/L Normal 21-32 [facility] Comment on above: Performed By: #### 2 586906, [id number] #### [facility] (DEFAULT) [address] [place] [address] 74020 Creatinine [Mass/Vol] 0.76 mg/dL Normal 0.60-1.30 [facility] Comment on above: Performed By: #### 2 [id number], [id number] #### [facility] (DEFAULT) [address] [place] [address] 26789 Glucose [Mass/Vol] 113.0 mg/dL Normal 74.0-118.0 [facility] Comment on above: Performed By: #### 2 891435, 5751884 #### [facility] (DEFAULT) [address] [place] [address] 44743 Potassium [Moles/Vol] 4.9 mmol/L Normal 3.6-5.1 [facility] Comment on above: Performed By: #### 2 210494, 9591876 #### [facility] (DEFAULT) [address] [place] [address] 61640 Sodium [Moles/Vol] 135.0 mmol/L Low 136.0-144.0 [facility] Comment on above: Performed By: #### 2 107485, 8987298 #### [facility] (DEFAULT) [address] [place] [address] 31983 Urea nitrogen [Mass/Vol] 33 mg/dL High 8-26 [facility] Comment on above: Performed By: #### 2 758987, 6938731 #### [facility] (DEFAULT) [address] [place] [address] 76460 Anion gap [Moles/Vol] 10.9 mmol/L Normal 5.0-19.0 [facility] Comment on above: Performed By: #### 2 753668, 4791435 #### [facility] (DEFAULT) [address] [place] [address] 92486 Osmolality 278 mOsm/L Invalid Interpretation Code [facility] Comment on above: Performed By: #### 2 009167, [id number] #### [facility] (DEFAULT) [address] [place] [address] 91388 Urea nitrogen/Creatinin e [Mass ratio] 43.4 mg/mg High 4.6-16.2 [facility] Comment on above: Performed By: #### 2 314383, 0229251 #### [facility] (DEFAULT) [address] [place] [address] 87595 C Bloodon 10-13-2023 C Blood Bacillus species No ANICETO performed on this organism Results called to Alicia Leonard RN at 2S by CDD and results read back for confirmation on 10/12/2023 05:12:42 Normal [facility] Comment on above: Performed By: #### 2 545468, 5003293 #### [facility] (DEFAULT) [address] [place] [address] CBC w/ Auto Diffon 3 Erythrocyte distribution width (RBC) [Ratio] 15.0 % Normal 11.5-15.0 [facility] Comment on above: Performed By: #### 2 490646, 2853371 #### [facility] (DEFAULT) [address] [place] [address] Hematocrit (Bld) [Volume fraction] 26.7 % Low 33.7-40.4 [facility] Comment on above: Performed By: #### 2 526243, 6448273 #### [facility] (DEFAULT) [address] [place] [address] Hemoglobin (Bld) [Mass/Vol] 8.9 g/dL Low 11.3-15.9 [facility] Comment on above: Performed By: #### 2 925654, 8287753 #### [facility] (DEFAULT) [address] [place] [address] Man Diff? Auto Invalid Interpretation Code [facility] Comment on above: Performed By: #### 2 057926, [id number] #### [facility] (DEFAULT) [address] [place] [address] 26366 MCH (RBC) [Entitic mass] 30 pg Normal 24-34 [facility] Comment on above: Performed By: #### 2 229076, 5173972 #### [facility] (DEFAULT) [address] [place] [address] 78579 MCHC (RBC) [Mass/Vol] 33 g/dL Normal 26-37 [facility] Comment on above: Performed By: #### 2 281915, 0900499 #### [facility] (DEFAULT) [address] [place] [address] 46584 MCV (RBC) [Entitic vol] 89 fL Normal 81-100 [facility] Comment on above: Performed By: #### 2 644722, 8772215 #### [facility] (DEFAULT) [address] [place] [address] 76398 Platelet 386 x10 Normal 138-427 [facility] Comment on above: Performed By: #### 2 038950, 7294900 #### [facility] (DEFAULT) [address] [place] [address] 70532 Platelet mean volume (Bld) [Entitic vol] 6.1 fL Low 6.3-10.2 [facility] Comment on above: Performed By: #### 2 201804, 5993686 #### [facility] (DEFAULT) [address] [place] [address] 19293 RBC 3.00 x10 Low 3.70-5.30 [facility] Comment on above: Performed By: #### 2 533795, 3093517 #### [facility] (DEFAULT) [address] [place] [address] 94434 WBC 11.8 x10 High 3.5-10.5 [facility] Comment on above: Performed By: #### 2 128558, 1495132 #### [facility] (DEFAULT) [address] [place] [address] 32211 CRPon 10-13-2023 CRP 3.2 mg/dL High <=0.5 [facility] Comment on above: Performed By: #### 2 728044, 3685407 #### [facility] (DEFAULT) [address] [place] [address] 42072 Sed Rateon 10-13-2023 Sed Rate 82 mm/hr High 0-20 [facility] Comment on above: Performed By: #### 2 215427, 5437447 #### [facility] (DEFAULT) [address] [place] [address] 45457 .Auto Diff 1on 10-12-2023 Auto Boone % 6 % Normal -12 [facility] Comment on above: Performed By: #### 1 2282096, [id number], 4682409 ####[facility] (DEFAULT)[address] [place] [address] 17763 Baso Abs# 0.0 x10 Normal 0.0-0.2 [facility] Comment on above: Performed By: #### 1 0957465, 0842613391, 6349463 ####[facility] (DEFAULT)[address] [place] [address] 56621 Basophils/100 WBC (Bld) 0.1 % Low 0.2-2.0 [facility] Comment on above: Performed By: #### 1 1395417, [id number], 0298012 ####[facility] (DEFAULT)[address] [place] [address] Eos Abs# 0.0 x10 Normal 0.0-0.4 [facility] Comment on above: Performed By: #### 1 6032357, [id number], 0673095 ####[facility] (DEFAULT)[address] [place] [address] 47763 Eosinophils/100 WBC (Bld) 0.0 % Low 0.9-4.0 [facility] Comment on above: Performed By: #### 1 8046766, 2691204763, 3016829 ####[facility] (DEFAULT)[address] [place] [address] Lymph Abs# 0.7 x10 Low 1.3-2.9 [facility] Comment on above: Performed By: #### 1 4349023, [id number], 7070889 ####[facility] (DEFAULT)[address] [place] [address] 06187 Lymphocytes/100 WBC (Bld) 6 % Low 14-48 [facility] Comment on above: Performed By: #### 1 9084726, 4451350744, 3518714 ####[facility] (DEFAULT)[address] [place] [address] 75903 Boone Abs# 0.7 x10 Normal 0.0-0.8 [facility] Comment on above: Performed By: #### 1 3383390, [id number], 6729346 ####[facility] (DEFAULT)[address] [place] [address] 12155 Neut Abs# 10.3 x10 High 1.5-9.2 [facility] Comment on above: Performed By: #### 1 2772185, 8125510804, 1163841 ####[facility] (DEFAULT)[address] [place] [address] Neutrophils/100 WBC (Bld) 88 % Normal 44-88 [facility] Comment on above: Performed By: #### 1 8474058, 0005888529, 3325999 ####[facility] (DEFAULT)[address] [place] [address] CBC w/ Auto Diffon 3 Erythrocyte distribution width (RBC) [Ratio] 15.5 % High 11.5-15.0 [facility] Comment on above: Performed By: #### 1 5673586, [id number], 4702298 ####[facility] (DEFAULT)[address] [place] [address] Hematocrit (Bld) [Volume fraction] 29.6 % Low 33.7-40.4 [facility] Comment on above: Performed By: #### 1 3394218, 1013668768, 2520589 ####[facility] (DEFAULT)[address] [place] [address] Hemoglobin (Bld) [Mass/Vol] 10.1 g/dL Low 11.3-15.9 [facility] Comment on above: Performed By: #### 1 6094651, 7599936879, 5210920 ####[facility] (DEFAULT)[address] [place] [address] Man Diff? Auto Invalid Interpretation Code [facility] Comment on above: Performed By: #### 1 3944865, [id number], 7910383 ####[facility] (DEFAULT)[address] [place] [address] MCH (RBC) [Entitic mass] 30 pg Normal 24-34 [facility] Comment on above: Performed By: #### 1 5413122, 8247715813, 3807760 ####[facility] (DEFAULT)[address] [place] [address] MCHC (RBC) [Mass/Vol] 34 g/dL Normal 26-37 [facility] Comment on above: Performed By: #### 1 0759116, 8260562294, 4466592 ####[facility] (DEFAULT)[address] [place] [address] 59031 MCV (RBC) [Entitic vol] 88 fL Normal 81-100 [facility] Comment on above: Performed By: #### 1 0243011, 0238673721, 2074375 ####[facility] (DEFAULT)[address] [place] [address] 10720 Platelet 434 x10 High 138-427 [facility] Comment on above: Performed By: #### 1 5509631, 6130211372, 2524270 ####[facility] (DEFAULT)[address] [place] [address] 44233 Platelet mean volume (Bld) [Entitic vol] 6.2 fL Low 6.3-10.2 [facility] Comment on above: Performed By: #### 1 3148232, 4079279754, 7845618 ####[facility] (DEFAULT)[address] [place] [address] 66261 RBC 3.38 x10 Low 3.70-5.30 [facility] Comment on above: Performed By: #### 1 7308510, 9870661102, 6920561 ####[facility] (DEFAULT)[address] [place] [address] 62862 WBC 11.7 x10 High 3.5-10.5 [facility] Comment on above: Performed By: #### 1 5627129, 6156757271, 0800866 ####[facility] (DEFAULT)[address] [place] [address] 52108 CMP Standardon 10-12-2023 eGFR Non AA 57 mL/min/1.73m2 Invalid Interpretation Code [facility] Comment on above: Performed By: #### 1 6726998, 0680422653, 3494156 ####[facility] (DEFAULT)[address] [place] [address] 33965 eGFR AA >60 Invalid Interpretation Code [facility] Comment on above: Performed By: #### 1 8490519, 4568921822, 4108714 ####[facility] (DEFAULT)[address] [place] [address] 66421 Albumin [Mass/Vol] 2.4 g/dL Low 3.5-5.0 [facility] Comment on above: Performed By: #### 1 4216247, 9527290145, 3560997 ####[facility] (DEFAULT)[address] [place] [address] 04147 Albumin/Globulin [Mass ratio] 0.6 {ratio} Low 1.4-2.6 [facility] Comment on above: Performed By: #### 1 1733954, 1236151009, 4793445 ####[facility] (DEFAULT)[address] [place] [address] 89281 Alk Phos 105 IU/L High 32-91 [facility] Comment on above: Performed By: #### 1 4807374, 1979157621, 6906314 ####[facility] (DEFAULT)[address] [place] [address] ALT [Catalytic activity/Vol] 19.0 U/L Normal 14.0-54.0 [facility] Comment on above: Performed By: #### 1 5771091, 0771716421, 4936146 ####[facility] (DEFAULT)[address] [place] [address] 84311 Anion gap [Moles/Vol] 14.7 mmol/L Normal 5.0-19.0 [facility] Comment on above: Performed By: #### 1 1246094, 2823482357, 6869910 ####[facility] (DEFAULT)[address] [place] [address] 21838 AST [Catalytic activity/Vol] 17 U/L Normal 15-41 [facility] Comment on above: Performed By: #### 1 7842750, 4292108242, 1323707 ####[facility] (DEFAULT)[address] [place] [address] 98982 Bili Total 0.6 mg/dL Normal 0.3-1.2 [facility] Comment on above: Performed By: #### 1 9465399, 5789904587, 9065917 ####[facility] (DEFAULT)[address] [place] [address] 08648 Calcium [Mass/Vol] 8.8 mg/dL Low 8.9-10.3 [facility] Comment on above: Performed By: #### 1 3826617, 7261480730, 4263630 ####[facility] (DEFAULT)[address] [place] [address] 23125 Chloride [Moles/Vol] 103 mmol/L Normal 101-111 [facility] Comment on above: Performed By: #### 1 0471139, 7992497014, 2898636 ####[facility] (DEFAULT)[address] [place] [address] 11552 CO2 [Moles/Vol] 25 mmol/L Normal 21-32 [facility] Comment on above: Performed By: #### 1 9387964, 4097755750, 4293142 ####[facility] (DEFAULT)[address] [place] [address] Creatinine [Mass/Vol] 0.94 mg/dL Normal 0.60-1.30 [facility] Comment on above: Performed By: #### 1 7687964, 5714182153, 4037245 ####[facility] (DEFAULT)[address] [place] [address] 85019 Globulin (S) [Mass/Vol] 3.5 g/dL Normal 1.5-4.3 [facility] Comment on above: Performed By: #### 1 0632818, 6636440564, 7311177 ####[facility] (DEFAULT)[address] [place] [address] 58776 Glucose [Mass/Vol] 161.0 mg/dL High 74.0-118.0 [facility] Comment on above: Performed By: #### 1 0620194, 1849979498, 7272106 ####[facility] (DEFAULT)[address] [place] [address] 74567 Osmolality 286 mOsm/L Invalid Interpretation Code [facility] Comment on above: Performed By: #### 1 6051826, 9605795277, 0865858 ####[facility] (DEFAULT)[address] [place] [address] 42952 Potassium [Moles/Vol] 4.7 mmol/L Normal 3.6-5.1 [facility] Comment on above: Performed By: #### 1 3215714, 2796676530, 2382739 ####[facility] (DEFAULT)[address] [place] [address] 64688 Protein [Mass/Vol] 5.9 g/dL Low 6.5-8.1 [facility] Comment on above: Performed By: #### 1 4284660, 6430301843, 7135110 ####[facility] (DEFAULT)[address] [place] [address] 52944 Sodium [Moles/Vol] 138.0 mmol/L Normal 136.0-144.0 [facility] Comment on above: Performed By: #### 1 2376875, 9095078345, 9100056 ####[facility] (DEFAULT)[address] [place] [address] 97005 Urea nitrogen [Mass/Vol] 32 mg/dL High 8-26 [facility] Comment on above: Performed By: #### 1 1217053, 2063235776, 4700829 ####[facility] (DEFAULT)[address] [place] [address] 91192 Urea nitrogen/Creatinin e [Mass ratio] 34.0 mg/mg High 4.6-16.2 [facility] Comment on above: Performed By: #### 1 9812771, 2208893068, 7704379 ####[facility] (DEFAULT)[address] [place] [address] 85323 CRPon 10-12-2023 CRP 7.2 mg/dL High <=0.5 [facility] Comment on above: Performed By: #### 2 075990, 2909656 #### [facility] (DEFAULT) [address] [place] [address] 35790 Consent Formson 10-12-2023 Consent Forms [id number] Normal [facility] Nutrition Noteon 10-12-2023 Nutrition Note Pt admitted w/ Rt kn ee pain, recent washout. CT scan noting septic arthritis, IV atb initiated. Pt placed on a Regular diet, so far eating 100%. 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 No chewing/swallowing problems identified. Labs reviewed [...] taking extra protein at home. To follow. [facility] Pharmacy Noteon 10-12-2023 Pharmacy Note This is [...] [Verified on: 10/12/2023 10:24 EST] Andrés Grover [facility] Procalcitoninon 10-12-2023 Procalcitonin 0.109 ng/mL Low 0.500-1.000 [facility] Comment on above: Performed By: #### 7 [id number] #### [facility] (DEFAULT) [address] [place] [address] Sed Rateon 10-12-2023 Sed Rate 74 mm/hr High 0-20 [facility] Comment on above: Performed By: #### 2 186675, 6988054 #### [facility] (DEFAULT) [address] [place] [address] US Echocardiogram Completeon 10-12-2023 US Echocardiogram Complete [...] Junction2.89 cm F: 2.3 - 2.9 LV Egbn632.22 g LVOT Diameter 2.09 cm IVC1.25 (<= [...] Single Plane 4 CH 25.69 mLBiplane LA Jyzajd62.33 mL Single Plane 2 CH67.19 mLLA ESV Index29.65 mL/m2 Right Atrium Area Systole RA Systolic Area A4C9.10 cm2RA Systolic Vol A4C19.30 mL Aortic Valve AoV Peak Velocity1.30 m/sLVOT Peak Velocity1.04 m/s AO Mean Velocity0.86 m/sLVOT Mean Velocity0.61 m/s AO Peak PG6.80 mmHgLVOT Peak PG4.31 mmHg AO Mean PG3.48 mmHgLVOT Mean PG1.86 mmHg AO V2 VTI22.79 cmLVOT V1 VTI20.10 cm ESTUARDO (Vmax)2.73 nq0IAUE Area 3.43 cm2 ESTUARDO (VTI)3.03 cm2SV (LVOT) 68.96 mL Indexed ESTUARDO (VTI)1.85 cm2/m2AI Calloway 2.40 m/s2 AI PCU409.11 ms Mitral Valve MV Max Kwnhniav860.09 m/sMV PHT58.48 ms MV E Max Velocity0.55 m/sMVA (PHT)3.76 cm2 MV A Max Velocity0.67 m/sMR TMD120.58 cm E/A Ratio0.8MR Peak Velocity5.74 m/s MV Decel. Mqud487.67 ms TDI Med e' Velocity5.08 cm/sMV E / Medial e' 10.72 Lat e' Velocity6.45 cm/sMV E / Lateral e' 8.45 TV S'16.13 cm/s Pulmonary Valve PV Peak Velocity0.78 m/sPV Peak PG2.43 mmHg NV End Diastolic Carlos.62.56 m/s PV Mean PG1.46 mmHg Tricuspid Valve TR Peak Velocity3.10 m/sRAP Estimate3.00 mmHg TR Peak PG38.55 umYwCMIH49.55 mmHg Final Signed (Electronic Signature): Marquis Pulido MD 10/12/23 3:45 pm Technologist: ERA [facility] XR Chest 1 View Frontalon XR Chest [...] MD 10/12/23 9:27 am Technologist: SANGEETA SIMPSON [facility] .Auto Diff 10-11-2023 Auto Boone % 7 % Normal 11-16 [facility] Comment on above: Performed By: #### 2 842790, 4221014299, 78527859, 9199461995, 0027586229, 0798324754, 2079762153, 0718948 ####[facility] (DEFAULT)[address] [place] [address] 30590 Baso Abs# 0.1 x10 Normal 0.0-0.2 [facility] Comment on above: Performed By: #### 2 379644, 4454109639, 59625506, 1203068359, 0481010072, 3506557996, 0639750712, 3036755 ####[facility] (DEFAULT)[address] [place] [address] 94815 Basophils/100 WBC (Bld) 0.4 % Normal 0.2-2.0 [facility] Comment on above: Performed By: #### 2 686141, 5214527433, 12537614, 5791923694, 8143566331, 0494500227, 4623894077, 4795344 ####[facility] (DEFAULT)[address] [place] [address] 49542 Eos Abs# 0.0 x10 Normal 0.0-0.4 [facility] Comment on above: Performed By: #### 2 732456, 2329813986, 19010255, 5004692027, 2772489350, 0311027126, 6016464576, 2334503 ####[facility] (DEFAULT)[address] [place] [address] 63249 Eosinophils/100 WBC (Bld) 0.2 % Low 0.9-4.0 [facility] Comment on above: Performed By: #### 2 871460, 0911369786, 64880328, 4344735888, 7900376695, 5765890409, 0664750214, 8365972 ####[facility] (DEFAULT)[address] [place] [address] 67379 Lymph Abs# 1.2 x10 Low 1.3-2.9 [facility] Comment on above: Performed By: #### 2 818687, 8198594101, 78252255, 7722927032, 9385976031, 7795561531, 5168197694, 6108891 ####[facility] (DEFAULT)[address] [place] [address] 75387 Lymphocytes/100 WBC (Bld) 8 % Low 14-48 [facility] Comment on above: Performed By: #### 2 689138, 8585296608, 52095478, 2452997300, 2696543727, 3486008220, 8529542668, 2648965 ####[facility] (DEFAULT)[address] [place] [address] 75920 Boone Abs# 1.1 x10 High 0.0-0.8 [facility] Comment on above: Performed By: #### 2 168124, 5496441671, 53196353, 7973250275, 3630031671, 2576627803, 3852072344, 8479867 ####[facility] (DEFAULT)[address] [place] [address] 97448 Neut Abs# 13.6 x10 High 1.5-9.2 [facility] Comment on above: Performed By: #### 2 036383, 1153348245, 98345420, 1028146117, 6970366634, 2953481396, 1837779788, 6657504 ####[facility] (DEFAULT)[address] [place] [address] 73907 Neutrophils/100 WBC (Bld) 85 % Normal 44-88 [facility] Comment on above: Performed By: #### 2 671495, 4715275071, 15119738, 8859384261, 0192908710, 6989963641, 3339374519, 7398987 ####[facility] (DEFAULT)[address] [place] [address] 43895 Anesthesia Noteon 10-11-2023 Anesthesia Note Patient: ALICIA [...] on: 10/11/2023 13:00 EST] Sheryl Dennis DO [facility] Anesthesia Note Patient: ALICIA NGUYỄN Age: 83 [...] All Problems HTN (hypertension) / SNOMED CT 6856446239 / Confirmed Hypothyroidism / SNOMED CT 38022282 / Confirmed Histories Family History: No family history items have been selected or recorded. Procedure history: Appendectomy (545351530). History of total hysterectomy (8337510150). Knee (971267392). Comments: 10/11/2023 7:23 Radha Siddiqui RN total left Plantar fasciitis (483337631). Comments: 10/11/2023 7:26 Radha Siddiqui RN left Cholecystectomy (37437889). Metatarsal (03810907). Comments: 10/11/2023 7:25 Radha Siddiqui RN right [...] Oriented. Review / Management Laboratory Results Plan [place] [employer]#(ASA) physical status classification: Class [...] on: 10/11/2023 09:23 EST] Sheryl Dennis DO [facility] BF Cell Cnton 10-11-2023 Appear BF Cloudy [facility] Comment on above: Order Comment: right knee fluid Performed By: #### 6 343724 #### [facility] (DEFAULT) [address] [place] [address] Cell Cnt BF Type Synovial Fl [facility] Comment on above: Order Comment: right knee fluid Performed By: #### 6 572898 #### [facility] (DEFAULT) [address] [place] [address] Color BF Red [facility] Comment on above: Order Comment: right knee fluid Performed By: #### 6 681894 #### [facility] (DEFAULT) [address] [place] [address] RBC BF [id number] Invalid Interpretation Code [facility] Comment on above: Order Comment: right knee fluid Performed By: #### 6 737857 #### [facility] (DEFAULT) [address] [place] [address] [place] [id number] Invalid Interpretation Code [facility] Comment on above: Order Comment: right knee fluid Performed By: #### 6 713464 #### [facility] (DEFAULT) [address] [place] [address] 38825 BMP Standardon 10-11-2023 Breakpoint Chem Normal [facility] Comment on above: Performed By: #### 2 496260, 7195010248, 46377789, 8106172125, 8555428277, 1432847307, 1581725452, 4307645 ####[facility] (DEFAULT)[address] [place] [address] 98343 eGFR Non AA 57 mL/min/1.73m2 Invalid Interpretation Code [facility] Comment on above: Performed By: #### 2 393941, 4361220098, 40977015, 0554300567, 2053173114, 4871703004, 9989432678, 6988553 ####[facility] (DEFAULT)[address] [place] [address] 51595 eGFR AA >60 Invalid Interpretation Code [facility] Comment on above: Performed By: #### 2 318935, 7112513215, 06859811, 8381426926, 4637904381, 3567286221, 9488313930, 0636583 ####[facility] (DEFAULT)[address] [place] [address] 93252 Anion gap [Moles/Vol] 13.6 mmol/L Normal 5.0-19.0 [facility] Comment on above: Performed By: #### 2 224186, 7147568868, 77007846, 2401444482, 0737914279, 7803762976, 0648529038, 3458685 ####[facility] (DEFAULT)[address] [place] [address] 89540 Calcium [Mass/Vol] 9.6 mg/dL Normal 8.9-10.3 [facility] Comment on above: Performed By: #### 2 [id number], [id number], [id number], [id number], [id number], [id number], [id number], [id number] ####[facility] (DEFAULT)[address] [place] [address] 89028 Chloride [Moles/Vol] 102 mmol/L Normal 101-111 [facility] Comment on above: Performed By: #### 2 553922, [id number], [id number], [id number], [id number], [id number], [id number], [id number] ####[facility] (DEFAULT)[address] [place] [address] 59543 CO2 [Moles/Vol] 25 mmol/L Normal 21-32 [facility] Comment on above: Performed By: #### 2 433161, [id number], [id number], [id number], [id number], 1646139985, [id number], 9570396 ####[facility] (DEFAULT)[address] [place] [address] 20994 Creatinine [Mass/Vol] 0.93 mg/dL Normal 0.60-1.30 [facility] Comment on above: Performed By: #### 2 389395, [id number], [id number], [id number], [id number], [id number], [id number], 3423978 ####[facility] (DEFAULT)[address] [place] [address] 43630 Glucose [Mass/Vol] 114.0 mg/dL Normal 74.0-118.0 [facility] Comment on above: Performed By: #### 2 171792, [id number], [id number], [id number], [id number], 1165891747, [id number], [id number] ####[facility] (DEFAULT)[address] [place] [address] 32008 Osmolality 279 mOsm/L Invalid Interpretation Code [facility] Comment on above: Performed By: #### 2 [id number], [id number], 50491337, [id number], 5075093390, [id number], [id number], 6493625 ####[facility] (DEFAULT)[address] [place] [address] 77879 Potassium [Moles/Vol] 4.6 mmol/L Normal 3.6-5.1 [facility] Comment on above: Performed By: #### 2 223131, [id number], 82962080, 8265438403, 6828707450, 7391569178, 1793562559, 5398769 ####[facility] (DEFAULT)[address] [place] [address] 92984 Sodium [Moles/Vol] 136.0 mmol/L Normal 136.0-144.0 [facility] Comment on above: Performed By: #### 2 338174, [id number], 78764359, 2385330753, 8925156527, 1702651853, 0841579238, 8401321 ####[facility] (DEFAULT)[address] [place] [address] 92969 Urea nitrogen [Mass/Vol] 30 mg/dL High 8-26 [facility] Comment on above: Performed By: #### 2 379640, [id number], 96032099, 1316073331, 0582038992, 3060024579, 2381226381, 2234649 ####[facility] (DEFAULT)[address] [place] [address] 80074 Urea nitrogen/Creatinin e [Mass ratio] 32.2 mg/mg High 4.6-16.2 [facility] Comment on above: Performed By: #### 2 656683, [id number], 48040544, 6374184198, 4439790380, 7724732061, 0494738298, 4933437 ####[facility] (DEFAULT)[address] [place] [address] 92123 Body Fluid Diffon 10-11-2023 BF Bands % 2 Invalid Interpretation Code [facility] Comment on above: Order Comment: Right knee fluidVerbal order per Kelly Long Performed By: #### 2 [id number] ####[facility] (DEFAULT)[address] [place] [address] BF Baso % 0 Invalid Interpretation Code [facility] Comment on above: Order Comment: Right knee fluidVerbal order per Kelly Long Performed By: #### 2 [id number] ####[facility] (DEFAULT)[address] [place] [address] BF Eos % 0 Invalid Interpretation Code [facility] Comment on above: Order Comment: Right knee fluidVerbal order per Kelly Long Performed By: #### 2 [id number] ####[facility] (DEFAULT)[address] [place] [address] BF Lymph % 5 Invalid Interpretation Code [facility] Comment on above: Order Comment: Right knee fluidVerbal order per Kelly Long Performed By: #### 2 [id number] ####[facility] (DEFAULT)[address] [place] [address] BF Boone % 0 Invalid Interpretation Code [facility] Comment on above: Order Comment: Right knee fluidVerbal order per Kelly Long Performed By: #### 2 [id number] ####[facility] (DEFAULT)[address] [place] [address] BF Segs % 93 Invalid Interpretation Code [facility] Comment on above: Order Comment: Right knee fluidVerbal order per Kelly Long Performed By: #### 2 [id number] ####[facility] (DEFAULT)[address] [place] [address] CBC w/ Auto Diffon 3 Erythrocyte distribution width (RBC) [Ratio] 15.3 % High 11.5-15.0 [facility] Comment on above: Performed By: #### 2 010867, [id number], 75286793, 4948021392, 0591406915, 9716202891, 2634044278, 5980333 ####[facility] (DEFAULT)[address] [place] [address] Hematocrit (Bld) [Volume fraction] 36.1 % Normal 33.7-40.4 [facility] Comment on above: Performed By: #### 2 771412, [id number], 66464324, 7879451059, 0611188252, 7676379458, 4308919986, 8469974 ####[facility] (DEFAULT)[address] [place] [address] Hemoglobin (Bld) [Mass/Vol] 11.8 g/dL Normal 11.3-15.9 [facility] Comment on above: Performed By: #### 2 842534, 5979317796, 49420959, 2792821132, 4739445003, 2717509759, 8674770620, 3897298 ####[facility] (DEFAULT)[address] [place] [address] Man Diff? Auto Invalid Interpretation Code [facility] Comment on above: Performed By: #### 2 231326, 8806655483, 74769587, 9929727936, 3674013839, 3820844401, 0391799361, 1997524 ####[facility] (DEFAULT)[address] [place] [address] MCH (RBC) [Entitic mass] 29 pg Normal 24-34 [facility] Comment on above: Performed By: #### 2 478969, 5161727245, 86984106, 7708407902, 3319103912, 2108710579, 5871041539, 4013926 ####[facility] (DEFAULT)[address] [place] [address] MCHC (RBC) [Mass/Vol] 33 g/dL Normal 26-37 [facility] Comment on above: Performed By: #### 2 786911, 9101637708, 21012010, 8225614559, 3903054234, 5502500357, 8957067495, 3437344 ####[facility] (DEFAULT)[address] [place], [place] [address] MCV (RBC) [Entitic vol] 89 fL Normal 81-100 [facility] Comment on above: Performed By: #### 2 518437, 3208409680, 61508187, 6833605546, 8624015906, 1572413582, 2412005727, 2978073 ####[facility] (DEFAULT)[address] [place] [address] 71843 Platelet 492 x10 High 138-427 [facility] Comment on above: Performed By: #### 2 693074, 9619101291, 21407649, 3109600861, 1074185705, 8656367416, 4496565249, 4951260 ####[facility] (DEFAULT)[address] [place] [address] 78632 Platelet mean volume (Bld) [Entitic vol] 6.2 fL Low 6.3-10.2 [facility] Comment on above: Performed By: #### 2 162101, 9480358740, 76334241, 4133318056, 8402793411, 3559951975, 5085536290, 4266819 ####[facility] (DEFAULT)[address] [place] [address] 18940 RBC 4.05 x10 Normal 3.70-5.30 [facility] Comment on above: Performed By: #### 2 829831, 9113169167, 58917776, 9612532008, 6272824964, 1254347399, 3020606832, 2653171 ####[facility] (DEFAULT)[address] [place] [address] 42121 WBC 16.0 x10 High 3.5-10.5 [facility] Comment on above: Result Comment: Slid e Reviewed Performed By: #### 2 871145, 7022064015, 87448125, 2336137877, 0440016702, 9675377253, 5567756281, 8283111 ####[facility] (DEFAULT)[address] [place] [address] 32696 CRPon 10-11-2023 CRP 6.1 mg/dL High <=0.5 [facility] Comment on above: Performed By: #### 2 679969 ####[facility] (DEFAULT)[address] [place] [address] Lower Extremity w/ Contra st Righton [...] MD 10/11/23 4:31 pm Technologist: Jeanette LUKE [facility] Extra SSTon 10-11-2023 Tube Collected Yes Invalid Interpretation Code [facility] Comment on above: Performed By: #### 2 003613, [id number], 76312956, 3142485652, 7017847723, 6706082355, 3086187644, 9962890 ####[facility] (DEFAULT)[address] [place] [address] MAGR Intraoperative Recordon 10-11-2023 MAGR Intraoperative Record MAGR Intra-Op Record Summary Primary Physician: JOB AGUILAR DO Finalized Date/Time: 10/11/23 14:40:54 Pt. Name: MARGARETALICIA FARIAS/Sex: 1940 FEMALE Med Rec #: [id number] Physician: JOB AGUILAR DO Financial #: [id number] Pt. Type: I Room/Bed: [facility] Admit/Disch: 10/11/23 06:57:39 - Institution: Case Times [...] Role Performed Surgeon - Primary Anesthesiologist of Obstetrics Technician Record Time In 10/11/23 11:40:00 10/11/23 11:40:00 10/11/23 11:40:00 Time Out 10/11/23 12:48:00 10/11/23 12:53:00 10/11/23 12:53:00 Procedure Arthroscopy Knee(Right) Arthroscopy Knee(Right) Arthroscopy Knee(Right) Last Modified By: Sandra Shepard RN, Barbara RN Long, Barbara RN 10/11/23 12:55:35 10/11/23 12:55:35 10/11/23 12:55:35 Entry 4 Entry 5 Case Attendee Gloria Saldaña CST, CST, Lauren M CSFYessica CSFA Role Performed Scrub Personnel [employer] Architect Time In 10/11/23 11:40:00 10/11/23 11:40:00 Time [...] Concerns Yes Implemented Addressed Time Out JOB AGULIAR DO, Time Out Time 10/11/23 12:09:00 Participants Sheryl Dennis DO, Long, Barbara RN, Piotr GUIDE [employer], Gloria MARTINEZ CSFA, Rina Muñoz CSFA Last [...] Met (O.80) Ye (more content not included)... [facility]R PACU Record MAGR PACU Record [facility] Primary Physician: JOB AGUILAR DO Finalized Date/Time: 10/11/23 13:56:49 Pt. Name: ALICIA NGUYỄN/Sex: 1940 FEMALE Med Rec #: [id number] Physician: JOB AGUILAR DO Financial #: [id number] Pt. Type: D Room/Bed: [facility]/1 Admit/Disch: 10/11/23 06:57:39 - Institution: PACU Case Times MAGR Entry 1 In PACU I 10/11/23 12:55:00 Discharge from PACU 10/11/23 13:40:00 I Last Modified By: Radha Seo RN 10/11/23 13:56:45 Finalized By: Radha Seo RN Document Signatures Signed By: Radha Seo RN 10/11/23 13:56 [facility] 1 12-12-2022 MAGR Preoperative Record MAGR Pre-Op Record Summary Primary Physician: JOB AGUILAR DO Finalized Date/Time: 10/11/23 12:17:03 Pt. Name: ALICIA NGUYỄN/Sex: 1940 FEMALE Med Rec #: [id number] Physician: JOB AGUILAR DO Financial #: [id number] Pt. Type: D Room/Bed: / Admit/Disch: 10/11/23 [...] Signed By: Sandra Shepard RN 10/11/23 12:17 [facility] Noteon 10-11-2023 Pharmacy Note The following [...] on: 10/13/2023 09:39 EST] Jamal Butler Normal [facility] Sed Rateon 10-11-2023 Sed Rate 80 mm/hr High 0-20 [facility] Comment on above: Performed By: #### 2 218018, [id number], 62023102, 6836052385, 2585814869, 8532180595, 0093807841, 1854350 ####[facility] (DEFAULT)[address] [place] [address] CREATININEon 04-04-2023 Creatinine [Mass/Vol] 1.25 mg/dL Critically high 0.55-1.02 [facility] Comment on above: Performed By: #### C HEIDI #### [facility] [address] [address] [address] Lolita Alvarado EGFR-AF BHUTANESE 49 mL/min/1.73m2 Critically low >=60 [facility] Comment on above: Performed By: #### C HEIDI #### [facility] [address] [address] [address] Lolita Alvarado EGFR-NON AF BHUTANESE 41 mL/min/1.73m2 Critically low >=60 [facility] Comment on above: Performed By: #### C HEIDI #### [facility] [address] [address] CHEST W CONon [...] by: RIGO WHITTAKER Date: 2023-04-04 16:[address] [facility] [address] CHEST W CONon 12-26-2022 CT CHEST [...] by: RIGO WHITTAKER Date: 2022-12-26 09:16 Normal [facility] CREATININEon 12-23-2022 Creatinine [Mass/Vol] 0.85 mg/dL Normal 0.55-1.02 [facility] Comment on above: Performed By: #### C HEIDI #### [facility] [address] [address] [address] Lolita Alvarado EGFR-AF BHUTANESE >60 Normal >=60 [facility] Comment on above: Performed By: #### C HEIDI #### [facility] [address] [place], [place] [address] Dr. Lolita Alvarado EGFR-NON AF BHUTANESE >60 Normal >=60 [facility] Comment on above: Performed By: #### C HEIDI #### [facility] [address] [place], [place] [address] Dr. Lolita Alvarado Glucose Glucometer (BldC) [M ass/Vol]Ordered By: Santiago Otto on 11-01-2022 Glucose [Mass/Vol] 97 mg/dL [facility] Comment on above: Random Glucose Refer ence Range is dependent on time and content of last meal. Glucose of more than 200 mg/dL in a nonstressed, ambulatory subject supports the diagnosis of Diabetes Mellitus. Glucose Poct Glucometerson 1 01-02-2022 Glucose [Mass/Vol] 97 mg/dL Normal [facility] Comment on above: Result Comment: [place] om Glucose Reference Range is dependent on time and content of last meal. Glucose of more than 200 mg/dL in a nonstressed, ambulatory subject supports the diagnosis of Diabetes Mellitus. PERFORMED BY: [place] [address] PATHOLOGIST SYSTEM ADMINISTRATOR NEW MEDEIROS M.D. Performed By: #### G LUJOLIE #### Point of Care testing , PET tumor init tx strat sb-m ton 11-01-2022 PET tumor init tx strat sb-mt [facility] Main [employer] [address] [place] [address] Nuclear Medicine Report Signed Patient: Alicia Nguyễn MR#: [id number] : 1940 Acct:[id number] Age/Sex: 82 / F ADM Date: 11/01/22 Loc: Room: Type: [facility] Attending Dr: Santiago Otto MD Copies [...] Candi Leigh M.D.11/01/2022 1:32 PM Dictation Location: [place] [address] Transcribed By: [facility] 11/01/22 1332 Dictated By: Candi Leigh MD 11/01/22 1300 Signed By: 11/01/22 1332 Normal [facility] CT CHEST W CONon 10-24-2022 CT CHEST [...] RIGO WHITTAKER Date: 2022-10-23 22:21 Normal [facility] CREATININEon 10-23-2022 Creatinine [Mass/Vol] 1.08 mg/dL Critically high 0.55-1.02 [facility] Comment on above: Performed By: #### C HEIDI #### [facility] [address] [place], [place] [address] Dr. Lolita Alvarado EGFR-AF BHUTANESE 59 mL/min/1.73m2 Critically low >=60 [facility] Comment on above: Performed By: #### C HEIDI #### [facility] [address] [place], [place] [address] Dr. Lolita Alvarado EGFR-NON AF BHUTANESE 48 mL/min/1.73m2 Critically low >=60 [facility] Comment on above: Performed By: #### C HEIDI #### [facility] [address] [address] [facility] WO [...] spine. 3. No acute abnormality. Normal [facility] General Surgery Office/Clini c Noteon [...] liver: Father. Heart disease: Mother. [facility] Comment on above: Result Comment: Elec tronically [...] by: SHERYL SRINIVASAN Date: 2022-09-13 08:21 Normal [facility] Ambulatory Visit Summaryon 1 Ambulatory Visit Summary [...] Varicose veins of legs Venous insufficiency Normal [facility] Pathology Noteon 08-18-2022 Pathology Note [id number]:127 Normal [facility] Outside Colonoscopyon 2021 Outside Colonoscopy [id number]:127 Normal [facility] US NOLBERTO DOP LEG RTon 08-10-20 22 [...] by: BRAD GONZALEZ Date: 2022-08-10 15:05 Normal [facility] Lab Reportson 08-03-2022 Lab Reports [id number]:127 Normal [facility] CBC AUTO DIFFon 08-02-2022 BASO # 0.0 103/ul Normal 0.0-0.1 [facility] Comment on above: Performed By: #### C BC #### [facility] [address] [place] [address] Dr. Lolita Alvarado Basophils/100 WBC (Bld) 0.3 % Normal 0.2-2.0 [facility] Comment on above: Performed By: #### C BC #### [facility] [address] [place] [address] Dr. Lolita Alvarado EO # 0.0 103/ul Normal 0.0-0.7 [facility] Comment on above: Performed By: #### C BC #### [facility] [address] [place] [address] Dr. Lolita Alvarado Eosinophils/100 WBC (Bld) 0.3 % Critically low 0.9-7.0 [facility] Comment on above: Performed By: #### C BC #### [facility] [address] [place] [address] Dr. Lolita Alvarado Erythrocyte distribution width (RBC) [Ratio] 13.3 % Normal 11.0-15.0 [facility] Comment on above: Performed By: #### C BC #### [facility] [address] [place] [address] Dr. Lolita Alvarado Hematocrit (Bld) [Volume fraction] 34.6 % Critically low 36.0-48.0 [facility] Comment on above: Performed By: #### C BC #### [facility] [address] [place] [address] Dr. Lolita Alvarado Hemoglobin (Bld) [Mass/Vol] 11.4 g/dL Critically low 12.0-16.0 [facility] Comment on above: Performed By: #### C BC #### [facility] [address] [place] [address] Dr. Lolita Alvarado IG # 0.04 10e3/ul Critically high 0.00-0.03 [facility] Comment on above: Performed By: #### C BC #### [facility] [address] [place] [address] Dr. Lolita Alvarado IG % 1.0 % Critically high 0.0-0.5 [facility] Comment on above: Performed By: #### C BC #### [facility] [address] [place] [address] Dr. Lolita Alvarado LYMPH # 1.2 103/ul Normal 1.2-3.8 [facility] Comment on above: Performed By: #### C BC #### [facility] [address] [place] [address] Dr. Lolita Alvarado Lymphocytes/100 WBC (Bld) 30.9 % Normal 20.5-60.0 [facility] Comment on above: Performed By: #### C BC #### [facility] [address] [place] [address] Dr. Lolita Alvarado MANUAL DIFF REQ NO Normal [facility] Comment on above: Performed By: #### C BC #### [facility] [address] [place] [address] Dr. Lolita Alvarado MCH (RBC) [Entitic mass] 31.0 pg Normal 26.7-34.0 [facility] Comment on above: Performed By: #### C BC #### [facility] [address] [place] [address] Dr. Lolita Alvarado MCHC (RBC) [Mass/Vol] 32.9 g/dL Normal 29.9-35.2 [facility] Comment on above: Performed By: #### C BC #### [facility] [address] [place] [address] Dr. Lolita Alvarado MCV (RBC) [Entitic vol] 94.0 fL Normal 81.0-99.0 [facility] Comment on above: Performed By: #### C BC #### [facility] [address] [place] [address] Dr. Lolita Alvarado MONO # 0.4 103/ul Normal 0.3-0.8 [facility] Comment on above: Performed By: #### C BC #### [facility] [address] [place] [address] Dr. Lolita Alvarado Monocytes/100 WBC (Bld) 10.6 % Normal 1.7-12.0 [facility] Comment on above: Performed By: #### C BC #### [facility] [address] [place] [address] Dr. Lolita Alvarado NEUT # 2.2 103/ul Normal 1.4-6.5 [facility] Comment on above: Performed By: #### C BC #### [facility] [address] [place] [address] Dr. Lolita Alvarado Neutrophils/100 WBC (Bld) 56.9 % Normal 43.0-75.0 [facility] Comment on above: Performed By: #### C BC #### [facility] [address] [place] [address] Dr. Lolita Alvarado Platelet mean volume (Bld) [Entitic vol] 8.1 fL Critically low 9.5-13.5 [facility] Comment on above: Performed By: #### C BC #### [facility] [address] [place] [address] Dr. Lolita Alvarado PLT 226 103/ul Normal 150-450 [facility] Comment on above: Performed By: #### C BC #### [facility] [address] [place] [address] Dr. Lolita Alvarado RBC 3.68 106/ul Critically low 4.20-5.40 [facility] Comment on above: Performed By: #### C BC #### [facility] [address] [place] [address] Dr. Lolita Alvarado WBC 3.9 103/ul Critically low 4.0-11.0 [facility] Comment on above: Performed By: #### C BC #### [facility] [address] [place] [address] Dr. Lolita Alvarado [facility] SARS-CoV-2 (COVID-19) RNA EDWIN+probe Ql (Unsp spec) Detected Critically abnormal NOT DETECTED [facility] Comment on above: Result Comment: This test is not yet approved or cleared by the [place] FDA. When there are no FDA-approved or cleared tests available, and other criteria are met, FDA can make tests available under an emergency access mechanism called an Emergency Use Authorization (EUA). The EUA for this test is supported by the [employer] of Health and Human Service's (HHS's) declaration [...] used). Performed By: #### C BC #### [facility] [address] [address] [address] Lolita Alvarado Consent for Procedure/Surger yon 06-15-2022 Consent for Procedure/Surgery [id number]:127 Normal [facility] Ambulatory Visit Summaryon 0 06-13-2022 Ambulatory Visit [...] Varicose veins of legs Venous insufficiency Normal [facility] CBC AUTO DIFFon 06-02-2022 BASO # 0.0 103/ul Normal 0.0-0.1 [facility] Comment on above: Performed By: #### C BC #### [facility] [address] [address] [address] Lolita Alvarado Basophils/100 WBC (Bld) 0.4 % Normal 0.2-2.0 [facility] Comment on above: Performed By: #### C BC #### [facility] [address] [address] [address] Lolita Alvarado EO # 0.0 103/ul Normal 0.0-0.7 [facility] Comment on above: Performed By: #### C BC #### [facility] [address] [address] [address] Lolita Alvarado Eosinophils/100 WBC (Bld) 0.2 % Critically low 0.9-7.0 [facility] Comment on above: Performed By: #### C BC #### [facility] [address] [address] [address] Lolita Alvarado Erythrocyte distribution width (RBC) [Ratio] 12.8 % Normal 11.0-15.0 [facility] Comment on above: Performed By: #### C BC #### [facility] [address] [place] [address] Dr. Lolita Alvarado Hematocrit (Bld) [Volume fraction] 30.1 % Critically low 36.0-48.0 [facility] Comment on above: Performed By: #### C BC #### [facility] [address] [place] [address] Dr. Lolita Alvarado Hemoglobin (Bld) [Mass/Vol] 10.3 g/dL Critically low 12.0-16.0 [facility] Comment on above: Performed By: #### C BC #### [facility] [address] [place] [address] Dr. Lolita Alvarado IG # 0.02 10e3/ul Normal 0.00-0.03 [facility] Comment on above: Performed By: #### C BC #### [facility] [address] [place] [address] Dr. Lolita Alvarado IG % 0.4 % Normal 0.0-0.5 [facility] Comment on above: Performed By: #### C BC #### [facility] [address] [place] [address] Dr. Lolita Alvarado LYMPH # 0.7 103/ul Critically low 1.2-3.8 [facility] Comment on above: Performed By: #### C BC #### [facility] [address] [place] [address] Dr. Lolita Alvarado Lymphocytes/100 WBC (Bld) 14.9 % Critically low 20.5-60.0 [facility] Comment on above: Performed By: #### C BC #### [facility] [address] [place] [address] Dr. Lolita Alvarado MANUAL DIFF REQ NO Normal [facility] Comment on above: Performed By: #### C BC #### [facility] [address] [place] [address] Dr. Lolita Alvarado MCH (RBC) [Entitic mass] 33.6 pg Normal 26.7-34.0 [facility] Comment on above: Performed By: #### C BC #### [facility] [address] [place] [address] Dr. Lolita Alvarado MCHC (RBC) [Mass/Vol] 34.2 g/dL Normal 29.9-35.2 [facility] Comment on above: Performed By: #### C BC #### [facility] [address] [address] [address] Lolita Alvarado MCV (RBC) [Entitic vol] 98.0 fL Normal 81.0-99.0 [facility] Comment on above: Performed By: #### C BC #### [facility] [address] [address] [address] Lolita Alvarado MONO # 0.4 103/ul Normal 0.3-0.8 [facility] Comment on above: Performed By: #### C BC #### [facility] [address] [address] [address] Lolita Alvarado Monocytes/100 WBC (Bld) 9.0 % Normal 1.7-12.0 [facility] Comment on above: Performed By: #### C BC #### [facility] [address] [address] [address] Lolita Alvarado NEUT # 3.4 103/ul Normal 1.4-6.5 [facility] Comment on above: Performed By: #### C BC #### [facility] [address] [address] [address] Lolita Alvarado Neutrophils/100 WBC (Bld) 75.1 % Critically high 43.0-75.0 [facility] Comment on above: Performed By: #### C BC #### [facility] [address] [address] [address] Lolita Alvarado Platelet mean volume (Bld) [Entitic vol] 8.5 fL Critically low 9.5-13.5 [facility] Comment on above: Performed By: #### C BC #### [facility] [address] [place] [address] [address] Lolita Alvarado PLT 229 103/ul Normal 150-450 [facility] Comment on above: Performed By: #### C BC #### [facility] [address] [address] [address] Lolita Alvarado RBC 3.07 106/ul Critically low 4.20-5.40 [facility] Comment on above: Performed By: #### C BC #### [facility] [address] [place] [address] Dr. Lolita Alvarado WBC 4.6 103/ul Normal 4.0-11.0 [facility] Comment on above: Performed By: #### C BC #### [facility] [address] [place] [address] Dr. Lolita Alvarado Physician Referralon 022 Physician Referral [id number]:127 Normal [facility] CBC AUTO DIFFon 06-01-2022 BASO # 0.0 103/ul Normal 0.0-0.1 [facility] Comment on above: Performed By: #### C BC #### [facility] [address] [place] [address] Dr. Lolita Alvarado Basophils/100 WBC (Bld) 0.7 % Normal 0.2-2.0 [facility] Comment on above: Performed By: #### C BC #### [facility] [address] [place] [address] Dr. Lolita Alvarado EO # 0.2 103/ul Normal 0.0-0.7 [facility] Comment on above: Performed By: #### C BC #### [facility] [address] [place] [address] Dr. Lolita Alvarado Eosinophils/100 WBC (Bld) 3.7 % Normal 0.9-7.0 [facility] Comment on above: Performed By: #### C BC #### [facility] [address] [place] [address] Dr. Lolita Alvarado Erythrocyte distribution width (RBC) [Ratio] 13.0 % Normal 11.0-15.0 [facility] Comment on above: Performed By: #### C BC #### [facility] [address] [place] [address] Dr. Lolita Alvarado Hematocrit (Bld) [Volume fraction] 32.2 % Critically low 36.0-48.0 [facility] Comment on above: Performed By: #### C BC #### [facility] [address] [place] [address] Dr. Lolita Alvarado Hemoglobin (Bld) [Mass/Vol] 10.6 g/dL Critically low 12.0-16.0 [facility] Comment on above: Performed By: #### C BC #### [facility] [address] [place] [address] Dr. Lolita Alvarado IG # 0.02 10e3/ul Normal 0.00-0.03 [facility] Comment on above: Performed By: #### C BC #### [facility] [address] [place] [address] Dr. Lolita Alvarado IG % 0.5 % Normal 0.0-0.5 [facility] Comment on above: Performed By: #### C BC #### [facility] [address] [place] [address] Dr. Lolita Alvarado LYMPH # 1.4 103/ul Normal 1.2-3.8 [facility] Comment on above: Performed By: #### C BC #### [facility] [address] [place] [address] Dr. Lolita Alvarado Lymphocytes/100 WBC (Bld) 32.4 % Normal 20.5-60.0 [facility] Comment on above: Performed By: #### C BC #### [facility] [address] [place] [address] Dr. Lolita Alvarado MANUAL DIFF REQ NO Normal [facility] Comment on above: Performed By: #### C BC #### [facility] [address] [place] [address] Dr. Lolita Alvarado MCH (RBC) [Entitic mass] 32.1 pg Normal 26.7-34.0 [facility] Comment on above: Performed By: #### C BC #### [facility] [address] [place] [address] Dr. Lolita Alvarado MCHC (RBC) [Mass/Vol] 32.9 g/dL Normal 29.9-35.2 [facility] Comment on above: Performed By: #### C BC #### [facility] [address] [place] [address] Dr. Lolita Alvarado MCV (RBC) [Entitic vol] 97.6 fL Normal 81.0-99.0 [facility] Comment on above: Performed By: #### C BC #### [facility] [address] [place] [address] Dr. Lolita Alvarado MONO # 0.6 103/ul Normal 0.3-0.8 [facility] Comment on above: Performed By: #### C BC #### [facility] [address] [place] [address] Dr. Lolita Alvarado Monocytes/100 WBC (Bld) 14.0 % Critically high 1.7-12.0 [facility] Comment on above: Performed By: #### C BC #### [facility] [address] [place] [address] Dr. Lolita Alvarado NEUT # 2.1 103/ul Normal 1.4-6.5 [facility] Comment on above: Performed By: #### C BC #### [facility] [address] [place] [address] Dr. Lolita Alvarado Neutrophils/100 WBC (Bld) 48.7 % Normal 43.0-75.0 [facility] Comment on above: Performed By: #### C BC #### [facility] [address] [place] [address] Dr. Lolita Alvarado Platelet mean volume (Bld) [Entitic vol] 8.2 fL Critically low 9.5-13.5 [facility] Comment on above: Performed By: #### C BC #### [facility] [address] [place] [address] Dr. Lolita Alvarado PLT 216 103/ul Normal 150-450 [facility] Comment on above: Performed By: #### C BC #### [facility] [address] [place] [address] Dr. Lolita Alvarado RBC 3.30 106/ul Critically low 4.20-5.40 [facility] Comment on above: Performed By: #### C BC #### [facility] [address] [place] [address] Dr. Lolita Alvarado WBC 4.3 103/ul Normal 4.0-11.0 [facility] Comment on above: Performed By: #### C BC #### [facility] [address] [place] [address] Dr. Lolita Alvarado OCC BLD IMMUNOASSAYon 2021 OCCULT BLOOD Positive Abnormal NEGATIVE [facility] Comment on above: Performed By: #### O ELADIO #### [facility] [address] [place] [address] Dr. Lolita Alvarado PROTIMEon 06-01-2022 INR Coag (PPP) [Relative time] 1.62 {INR} Normal [facility] Comment on above: Performed By: #### P T, PTT #### [facility] [address] [place] [address] Dr. Lolita Alvarado INR GUIDELINES SEE BELOW Normal [facility] Comment on above: Result Comment: TOSHA RED INR: 2.0 - 3.0 CONDITIONS NOT LISTED BELOW 2.5 - 3.5 FOR PROSTHETIC HEART VALVE REPLACEMENT 2.5 - 3.5 RECURRENT THROMBOSIS Performed By: #### P T, PTT #### [facility] [address] [place] [address] Dr. Lolita Alvarado PT Coag (PPP) [Time] 17.0 s Critically high 9.0-11.6 [facility] Comment on above: Performed By: #### P T, PTT #### [facility] [address] [place] [address] Dr. Lolita Alvarado PTTon 06-01-2022 aPTT Coag (Bld) [Time] 40.2 s Critically high 22.3-36.2 [facility] Comment on above: Performed By: #### P T, PTT #### [facility] [address] [place] [address] Dr. Lolita Alvarado [facility] SARS-CoV-2 (COVID-19) RNA EDWIN+probe Ql (Unsp spec) Not detected Normal NOT DETECTED [facility] Comment on above: Result Comment: This test is not yet approved or cleared by the [place] FDA. When there are no FDA-approved or cleared tests available, and other criteria are met, FDA can make tests available under an emergency access mechanism called an Emergency Use Authorization (EUA). The EUA for this test is supported by the [place] of Health and Human Service's (HHS's) declaration [...] consistent with SARS-CoV-2. Performed By: #### [facility] #### [facility] [address] [place] [address] Dr. Lolita Alvarado US NOLBERTO DOP LEG [...] by: SHERYL SRINIVASAN Date: 2022-05-25 16:09 Normal [facility] US NOLBERTO DOP LEG LTon 04-28-20 US [...] and mid calf. There may be a apartment rental agent extending to the region of the thrombosis. The remaining deep venous structures are patent. 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 This finding was placed in the stat call folder. 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 Electronically authenticated by: CHUCK TATUM Date: 2022-04-28 19:31 Normal [facility] POINT OF CARE GLUCOSEon 04-06 Glucose [Mass/Vol] 86 mg/dL Normal 74-106 [facility] Comment on above: Performed By: #### C BC #### [facility] [address] [place] [address] Dr. Lolita Alvarado Encounters Encounter Date Encounter Type Care Provider Facility Start: 11-16-2023 End: 11-16-2023 ambulatory JAMAL VIZCARRA Not Available Start: 10-26-2023 End: 10-26-2023 ambulatory JAMAL VIZCARRA Not Available Start: 10-11-2023 End: 10-16-2023 Evaluation and management of inpatient Brando Garcia Facility:[facility] Start: 10-10-2023 End: 10-10-2023 ambulatory JOB [...] Start: 11-01-2022 End: 11-01-2022 ambulatory Santiago Otto Facility:[facility] Start: 11-01-2022 End: 11-01-2022 ambulatory MD Santiago Otto Work Phone: [facility] Work Phone: Start: 11-01-2022 End: 11-01-2022 Patient encounter procedure MD Santiago Otto Work Phone: [facility] Work Phone: Start: 10-23-2022 End: 10-24-[address] SANTIAGO OTTO . Facility:[facility] Start: 10-16-2022 End: 10-17-2022 ambulatory RACHANA KENT Facility:[facility] Start: 10-11-2022 End: 10-11-2022 ambulatory Rachana Kent Other [facility] Other Start: 10-11-2022 Telephone encounter Rachana Kent F PG [facility] Start: 09-12-2022 End: 09-13-[address] SANTIAGO OTTO . Facility: Start: 08-29-2022 End: 08-30-2022 ambulatory Arie BERGERON Facility:[facility] Start: 08-29-2022 End: 08-29-2022 Patient encounter procedure Arie BERGERON General Surgery [facility] Start: 08-22-2022 End: 08-23-2022 ambulatory BRAD CALDWELL Facility:[facility] Start: 08-16-2022 End: 08-17-2022 ambulatory Arie BERGERON Facility:CD:[id number] Start: 08-12-[address] ARIE BERGERON . Facil ity:[facility] Start: 08-10-2022 End: 08-11-[address] SANTIAGO OTTO . Facility:[facility] Start: 08-10-2022 Encounter for other preprocedural examination DR ARIE BERGERON . [facility] Start: 08-08-2022 End: 08-09-2022 ambulatory [...] 06-13-2022 End: 06-14-2022 [facility]ulatory [facility] Start: 06-02-2022 [facility]ulatory [facility] Start: 06-02-2022 End: 06-03-[address] SANTIAGO OTTO . Facility:[facility] Start: 06-01-2022 End: 06-02-2022 ambulatory STARR ARROYO . Facility:[facility] Start: 05-25-2022 End: 05-25-[address] SANTIAGO OTTO . Facility:[facility] Start: 05-25-2022 End: 05-26-2022 [...] NILL Payers Date Payer Category Payer Unknown [id number] 1961 Medicare [id number] 1961 Self-pay 1961 Unknown [id number] 1940 Unknown [id number] 2.16.8 40.1.579638.3.579.2.727 1938 Unknown [id number] 2.16.8 40.1.449354.3.579.2.727 1938 Unknown [id number] 2.16.8 40.1.913925.3.579.2.727 1938 Unknown [id number] 2.16.8 40.1.527388.3.579.2.727 1938 Unknown [id number] 2.16.84 0.1.610687.3.579.2.593 1938 Unknown [id number] 2.16.84 0.1.317031.3.579.2.593 1938 Unknown [id number] 2.16.84 0.1.000661.3.579.2.593 1938 Unknown [id number] 2.16.84 0.1.187622.3.579.2.593 1938 Unknown [id number] 2.16.84 0.1.138720.3.579.2.593 1938 Unknown [id number] 2.16.84 0.1.895509.3.579.2.593 1938 Unknown [id number] 2.16.84 0.1.886394.3.579.2.593 1938 Unknown [id number] 2.16.84 0.1.139119.3.579.2.593 1938 Unknown [id number] 2.16.84 0.1.104047.3.579.2.593 1938 Unknown [id number] 2.16.84 0.1.943317.3.579.2.593 1938 Unknown [id number] 2.16.84 0.1.638675.3.579.2.593 1938 Unknown [id number] 2.16.84 0.1.553131.3.579.2.593 1938 Unknown [id number] 2.16.84 0.1.189831.3.579.2.593 1938 Unknown [id number] 2.16.84 0.1.999428.3.579.2.593 1938 Unknown [id number] 2.16.84 0.1.513355.3.579.2.593 1938 Unknown [id number] 2.16.84 0.1.526506.3.579.2.593 1938 Unknown [id number] 2.16.84 0.1.489936.3.579.2.593 1938 Unknown [id number] 2.16.84 0.1.641415.3.579.2.593 1938 Unknown [id number] 2.16.84 0.1.320707.3.579.2.593 1938 Unknown [id number] 2.16.84 0.1.950398.3.579.2.593 1938 Unknown [id number] 2.16.84 0.1.915949.3.579.2.593 1938 Unknown [id number] 2.16.84 0.1.397911.3.579.2.593 1938 Unknown [id number] 2.16.84 0.1.939790.3.579.2.593 1938 Unknown [id number] 2.16.84 0.1.444353.3.579.2.593 1938 Unknown [id number] 2.16.84 0.1.347103.3.579.2.593 1938 Unknown [id number] 2.16.84 0.1.042960.3.579.2.593 1938 Unknown [id number] 2.16.84 0.1.434443.3.579.2.593 1938 Unknown [id number] 2.16.84 0.1.933797.3.579.2.593 1938 Unknown [id number] 2.16.8 40.1.186227.3.579.2.718 1938 Unknown [id number] 2.16.84 0.1.567052.3.579.2.1259 1938 Unknown [id number] 2.16.840 .1.734977.3.579.2.1259 1938 Unknown [id number] 2.16.840 .1.513526.3.579.2.1259 1938 Unknown [id number] 2.16.840 .1.837020.3.579.2.1259 1938 Unknown [id number] 2.16.840 .1.357752.3.579.2.1259 Medicare Medicare Outpatient [id number] [id number] Unknown [id number] 2.16.8 40.1.008230.3.579.2.531 Social History Date Type Detail Facility Start: 06-13-2022 Tobacco smoking status Never s moked tobacco (finding) [facility] Tobacco smoking status Never [facility] Sex Assigned At Female [facility] Start: 1940 Sex Assigned At Female Rai [facility] Clinical Notes 06-01-2022 to 10-17-2023 Note Date & Type Note Facility 10-17-2023 Note [id number] E7#1.00[facility] 10-17-2023 Note [id number] D#1.00[facility] 10-17-2023 Note [id number] 0462#1.00[facility] 10-16-2023 Note Education Materials POST OPERATIVE [...] #8 follow up in office with physician senior agricultural assistant Joe Vizcarra as scheduled #9 [facility] will be contacting you within the next 24 hours to set up home therapy visits #11 You have been given a prescription for Baring, norco is narcotic, narcotics are addictive. If you feel you have problems with addiction please feel free to contact Dr. Aguilar, your family physician, or proceed to the nearest hospital's emergency services department. [facility] 10-16-2023 Note [facility] Clinical Discharge Summary PERSON INFORMATION Name ALICIA GNUYỄN Age 83 Years 1940 Sex FEMALE Language Swiss PCP SANTIAGO OTTO Marital Status Phone Med Service Med/Surg Acct# Arrival 10/11/2023 06:57:39 Visit Reason SURGERY - RIGHT KNEE SCOPE Acuity LOS 005 01:37 Address: [address] [place] [id number] Comment: PROVIDER INFORMATION VITALS INFORMATION Vital Sign [...] range between ( 1.3 and 2.9 ) [place] Abs#: 0.8 x103/mcL -- Normal range between ( 0.0 and 0.8 ) Auto Baso %: 0.2 % -- Normal range between ( 0.2 and 2.0 ) Auto [place] %: 9 % -- Normal range between [...] ( 32 and (more content not included)... [facility] 10-17-2022 Note PROCEDURE: XR SCAPUL A RT COMPARISON: None. HISTORY: Disorder of bone FINDINGS: BONES:No acute fracture or dislocation. Subchondral cystic changes of the greater tuberosity and humeral neck SOFT TISSUES:Negative. No visible soft tissue swelling. EFFUSION:None visible. OTHER: Aortic atherosclerosis IMPRESSION: No acute abnormality Electronically authenticated by: SHERYL SRINIVASAN Date: 2022-10-17 07:20 [facility] 08-16-2022 Note OPERATIVE NOTE OPERATION DATE: 08/16/2022 [...] good condition. CC: Santiago Otto M.D. [facility] 07-27-2022 Note CONSULTATION PROCEDURE DATE: [...] be followed up in the office. [facility] 07-27-2022 Note CONSULTATION CONSULTATION DATE: [...] agrees with the plan of care. [facility] 06-13-2022 Note Chief Complaint consultation [...] Cirrhosis of liver: Father. Heart disease: Mother. [facility] Comment on above: Result Comment: Elec tronically [...] Patient is in agreement to this. [facility] 06-01-2022 Note CONSULTATION PROCEDURE DATE: [...] and patient tolerated the procedure well. [facility] Evaluation + Plan note No data available for this section [facility] Evaluation note No Information Hayes Gruvie Other Evaluation note No assessment information [facility] Work Phone: History general Narrative - Reported Type Medical History appendectomy Medical History Arthritis Medical History cataracts Medical History diabetes mallitus Medical History gall bladder disease Medical History hypertension Medical History thyroid disease Surgical History appendectomy Surgical History bladder suspension, unspecified Surgical History gall bladder Surgical History knee replacement Hospitalization History see surgical hx [facility] Other Hospital Discharge instructions No data available for this section [facility] Progress note No data available for this section [facility] Summary Purpose Family History No Family History [...] DATE CREATED AUTHOR AUTHOR'S ORGANIZ ATION 11/14/2022 [facility] DATE CREATED AUTHOR AUTHOR'S ORGANIZ ATION 04/13/2023 [facility] DATE CREATED AUTHOR AUTHOR'S ORGANIZ ATION 11/02/2023 [facility] DATE CREATED AUTHOR AUTHOR'S ORGANIZ ATION 11/17/2023 [facility] EPIC REASON FOR VISIT (unrecogniz [...] BE BASED ON THE PRIMARY CLINICAL RECORDS. [employer] provides no warranty or guarantee of the accuracy or completeness of information in this document.
[2023-12-07 13:42] LABS: Basophils Absolute Auto 0.1 10^3/uL (0.0-0.1); Eosinophils Absolute Auto 0.1 10^3/uL (0.0-0.7); Eosinophils Percent Auto 1.6 % (0.9-7.0); Hematocrit 31.6 % (36.0-48.0); Immature Granulocytes Abs Auto 0.01 10^3/uL (0.00-0.03); Immature Granulocytes Pct Auto 0.2 % (0.0-0.5); Lymphocytes Absolute Auto 1.7 10^3/uL (1.2-3.8); Lymphocytes Percent Auto 26.7 % (20.5-60.0); Mean Corpuscular HGB Conc 31.6 g/dL (29.9-35.2); Mean Corpuscular Hemoglobin 28.6 pg (26.7-34.0); Mean Corpuscular Volume 90.3 fL (81.0-99.0); Mean Platelet Volume 8.2 fL (9.5-13.5); Monocytes Absolute Auto 0.6 10^3/uL (0.3-0.8); Monocytes Percent Auto 10.3 % (1.7-12.0); Neutrophils Absolute Auto 3.7 10^3/uL (1.4-6.5); Neutrophils Percent Auto 60.2 % (43.0-75.0); Platelet Count 202 10^3/uL (150-450); Red Cell Distribution Width 14.8 % (11.0-15.0); White Blood Count 6.2 10^3/uL (4.0-11.0)
[2023-12-07 14:10] LABS: Alanine Aminotransferase 18 U/L (14-59); Albumin Level 3.4 g/dL (3.4-5.0); Alkaline Phosphatase 73 U/L (46-116); Amylase 70 U/L (25-115); Anion Gap 13.4; Aspartate Amino Transferase 20 U/L (15-37); BUN Creatinine Ratio 13.8; Bilirubin Total 0.7 mg/dL (0.2-1.0); Calcium 8.9 mg/dL (8.5-10.1); Carbon Dioxide 24.5 mmol/L (21.0-32.0); Chloride 100 mmol/L (98-107); Estimated GFR (African America 37 (>=60); Estimated GFR (Non-African Ame 31 (>=60); Globulin 3.3 g/dL; Glucose 98 mg/dL (74-106); Potassium 4.9 mmol/L (3.5-5.1); Sodium 133 mmol/L (136-145); Total Protein 6.7 g/dL (6.4-8.2)
== END 2023-12-07 13:21 | disposition home or self-care (01) ==
LOC: LAB 13:22
PROVIDERS: PCP Family Medicine; Visit Provider Family Medicine
DX: R19.7 Diarrhea, unspecified (principal); R53.83 Other fatigue
CPT/HCPCS: 36415; 80053; 82150; 83690; 85025

== ENCOUNTER 2023-12-08 09:56 | Outpatient (REF) | payer MEDICARE, SELFPAY ==
--- OUTSIDE RECORDS SUMMARY | 2023-12-08 10:01 | XMS_ITS | CCD ---
Author Name Unknown Address [address] [facility] [address] [place] [address] Organization [facility] Care Team Providers Care Application Engineer Name Role Phone Santiago Otto Primary Care Physician Arie BERGERON Attending Unavailable Santiago Oconnor Referring Unavailabl Arie Jones Attending Unavailable Arie BERGERON Attending Unavailable Arie BERGERON Attending Unavailable Rachana Kent Unavailable MD Santiago Otto Primary Care Provider [phone] MD Santiago Otto Attending Provider Santiago Otto Attending Unavailable Santiago Otto Primary Care Unavailable Santiago Otto Admitting Unavailable LUIZAY ., DR HENDERSON Primary Care Unavailable HOY ., DR HENDERSON Attending Unavailable HOY ., DR HENDERSON Admitting Unavailable HOY ., DR HENDERSON Consulting Unavailable LARKSPUR, DR SHERYL Navarrete Consulting Unavailable ARROYO ., [...] HOY ., DR HENDERSON Primary Care Unavailable LARKSPUR, DR SHERYL Navarrete Consulting Unavailable HOY ., [...] DR HENDERSON Attending Unavailable ZIEBER, DR RIGO Loev Consulting Unavailable HIGHLANDER, PETER D Admitting Unavailable HIGHLANDER, PETER Krystal Attending Unavailable HOY ., DR HENDERSON Primary Care Unavailable HIGHLANDER, PETER D Consulting Unavailable HOY ., DR HENDERSON Consulting Unavailable HOY ., DR HENDERSON Primary Care Unavailable HOY ., DR SANTIAGO Augustine Unavailable HOY ., DR HENDERSON Attending Unavailable ZIEBER, DR RIGO Love Consulting Unavailable BLADES, RACHANA Admitting Unavailable BLADES, RACHANA Attending Unavailable LARKSPUR, DR SHERYL Navarrete Consulting Unavailable HOY ., [...] Medication Allergies] Propensity to adverse reactions (disorder) [facility] Repository Medications Current Medications Medication Drug [...] Onset: 08-24-2022 Episodic Other aftercare (1 source) 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; 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] Onset: 08-24-2022 Episodic Other aftercare (1 source) 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; Translations: [[facility] CURRENT DRUG THERAPY] Onset: 05-01-2022 Episodic Other [...] Coding Summaryon 10-22-2023 Coding Summary HTMLBase 64 KbaxgehkLDf7tAk+PGhlYWQ+PE1FV QTjR92yiBRutU6eR8HEUOrSBtqrPA IQGAaTMgDwdoAlBX3cdIHpCUEu IC8+KE6tLZVhZsescOOyn1Z6wZM7J 57tdl6fFWcrzTQ5BKLaHqCnmrzcx9 vxzLf2TGeuEiowPhLm SRXhgX59DME0uQ83Dm75vUCojDHtm 4bknCe3FwMmSPYcSRA4rLziXEmkt5 IsZXQrT89xzGVlc8X1 JANtgWfpbRDiYeTirFY2wW7wWLnwu dswh1ihiqefPlk7tn84uOAqi0G8hC A6U9LkqzW1TEMqsRSd IxdweQVWnX2relkri9yrpfebElIdV PHbNRk9XNe1VESwzJqfHiUcJB59NV R4UFBjskPxN1UhOCGz uDrxYmF1h5K6Ji7ZU8BHJtelD6OKJ UFSWTwvdGQ+PH80xn16J0PcRdsqYf s6GQFnDCC3wED9sE4t JLMhSVhmf1K7aZO5S0RmtuJixi3mw 4wmGOXbQWcdG85lwSUuu7O0KUFuoQ M9QQUucObyHiBxaP15 Oyc+NPRsiOqel3TuRjvbn5ocm6wrr Pk5ZhsmECUdbrCfrCuxTNM5o8GrJd 6tKIZntTU2sEJ1tG3t OxOsAdR5VRxgF891LaKquDOnRaoeR 42nS5VkoSK+NARiTkr5JFDlnAyzJV 9kU5XsTRMyfgkybAUy eWltKR4aXWRrptvmPNSlvS2gARXzY 8p2QiDyBoW9FIysF3PkMQNbohbhUe 47rM3gKnHfCsY2AVyy W7NcajR1PBNgpHLiVZgeQUH5W92wr 9S3ZBBuMOAnSIO3rDW2wQ8mcIccms ogbGVmdDsgdmVydGlj ZNxvROtsS481PCObnUmuNcYdLTqxD yBEYXRlOiAgMTIvMTgvMjAyMzwvdG Q+ROJeGRZ2fBwiMUJv yTPiFMfuNd7gvHdywEusWR0oCSEkm zgnKVPprP9oCAYjtPFgqBfwFJ3bHG Vnbatfq877MdIvXUH0 PZEarYCaQ0ZywG6vScCnDLFkLHLdU 5VlfRXuAWgoZ492XGwlMrV5CFEdpd FsV7QxHGJnqCabBzJ9 r9L5Gj4Fv5UqnqixO1IftXUyXgFnL tlhPPw0E6TqUqvobSE+HJ45AVOwBE 51QUw8BJC7gIzdZNsn OCJhG9RhqM3zLjXaUTKuSDEfDko+P HRhYmxlIHdpZHRoPScxMDAlJyBzdH pkLB4pRi7cEFJlXRFo zAxrhEQzApRhp1kzBLPvSFmhSS4he VwoZ6DevID2ZDOvs3e1Va10N36hM9 JvdXA+IZUkiGT7sFJ7 bB1iAvJeJlI6OXieV126PzXjjULaM uity9zdd3ojfZy9GfA2YQFkrgLrsJ nqEYN3w8HuZa19B63w TEwkMPMfRBRjZYNiNCShiWntdq9xo G9wIi8+YQTraGX8yGG5vF5mUrMqUs Y2QTitV209OjThwHNo Yovao2csv5vxrCo0HlGvPEFdelGoi VvlOOD8r0HfHe34U2QxoUacp6HnXn e0fp37aZMap4H1xKZ9 D2VfFBEipuoeuDYrcMykMP7fATZks zqfMTCwoM1uDBIpE9w2RmUyIyY6RW ewT8MngoW3HLNcqADi NBTpnDKBeA6rfnzzw5ljjmznIrHyW KYiSTz6EHs1AOCmdAkjDhSnZJH5Zj U1VYZ8nLApeV8usVki rmtwgO2xBqd+KNU2dWAxfRBQNQ4hW jwvdGQ+GLMdQOZ8hKxvRJntQNOujR 2nQGDpG5n9OoOqVtK1 WTfzH7RxytD8RAYaiGZeZPNswJPPx D7inngsd0zqpzqoJiOrUJHaQSa6VU u9ISYiwAzgFzVvZFE6 KsA1FHF8sHQijQ3zgUeuwushfY7nX yc+YngktBzcUJT6AMi6Y3YjJme4BH OakRblYQ4kxLJpMSbv Gq7weOchcHyyQZ7pDJSneqxys743F sQic4toZGQcsDTxBJaiQEK6C50if7 Q1HMFbFNAvCMY7uGS6 sY1eoOpbobpclNFvvNbqrtDxhJzlG AxkNEniF408MSCojPpjLyLnMMc5R0 QiAfu7VMVvkXbuZV8m bIHuUNpcZg7vyLkjcHihAO1uYMWiy lzop272VdPxu8alVFJgqSCgRYwgLJ S6M83eo6T8PLYjSUGc FHN5fVX2pW3gqWxwssecvEPeoGqso yPfuDhsSLqdOOajK181WCBmnJtnGl DbkTx4R8RlQbo7CSYg oJwlVQ5gfNZiILchFc3utOhloNhzQ A8sXRNjkuhbm058WzWdy1kuPWBhjV VuWGpuRCD7J33mo7S6 XUXcJENsPLK1bOC4sO4lwZertdvle SQugHlntxOedSvgXJcxOOyfQ646KF RvcDsnPlBhdGllbnQg GVmjKMr7P1VnLgvoxIS+TB21LUVzY A72jARdmVLzp9ygqMg4LbRsGVNuJY I4qGycJBihf8OoOLNo Z04zlLNby9L5QDVyaVbqxXPuJpHpe KF9dJ0zWZzedxmur7qxajqhGmkkf0 ocge43pB15N07uJGrd GYSrZZNqBIZtTMBadGvcur0deZ8yQ i8+MMAgfEY0wJY8aJ4xTFAdEcD4OU sbS816HqImjUJsLnft b6gci2jegPq6LsR4PVBdseRqfDqwS YQ2a4BdWt04U95eFTudXDZhIMKxXM KcNNMkrSawye6blB9m Ii8+LZLfjEL6gHV0lY3iGxFnNcJ4Q EybW105BfBlsEBaOuzpY21sZ8WhnE A+NJYwTme3SPRvcVbz LC6spXLuARzmDt4lIOF4EzQpJwAlE UslV5AkGJNhsugfbbitdMQ6LIVpPE SvsB06Dq5hpVwmBFVp xXPTxH8mmojzz1qfkewsBwAuJGYbN Mt6OMy5FZAnyFqnPyIaCNR1LnW8JP X0aPVjzE5uoXnqqebp dR5wF1NnMPFsvlubRx60uJ0zAoGsK xI3WBttFlg+UkFJRlNOSURFUiwgTU FSWSBBTElDRTwvdGQ+ RISsWNH3cKxdXXqtFKZpaU2cQKBgH 6l0DgQtTpA5LXvfN3YlXISglgpmJr 70uH8nReFlZtC2TGrx B2SkbgJ3HIFjtCVzKFzaCGE0N22cd 2F9VUPmNLEnFFI0pDW8aC4nsUlmxk ogbGVmdDsgdmVydGlj YJkrSZwmV318JCJclHkzXuY4MeSuU wW1Dlq7P6VoEgf0HKHtuIajSQ8lvD UjHQzmHb8xfKhxpAnv JB6lQIFbvahfTPEvgD2pZKEbmRXeu FviAN7aTGLnnxets857OzTiCQF1GF YrxZUlJ9MmhP6rCvTx DBKnVWIlS1TpoOTtJPyhA862EWiwV iP9ANHvukCiY9SzQHXynRjuJrE9h6 Y2Mg68NOJKENWisvmd dGQ+TQOlAII9cDyeBZkaUQBorZ9wS FOjF6t3JjYfQlJ8PApoL1UkDXGlik ruBb07rH6xAkPnZaE1 VSddV9KtbjA8RDVfqHUgDPtbHCZ0L 25rj4G8HFApVXKvIOV4ySB0cP8plP lnbjogbGVmdDsgdmVy bCwmQUucAJcoD203OXTirRflGwBNW UFMRTwvdGQ+GPTsCAV2tApyKNzoFV SqhP8uYCSlP8n5BfYp PeC6UWlnR6LoUDUlidirGt86fC6hT qCeBtH7GKnnN9GwaoH1JWQcjERpAO dwIOA3V20fp1G3EVYo QBGwUBZ5bFN4nN4hqXmkjthbhGIba LkneoVjrUplRQjrQCdwO973FFUniS ljJihweGZ6mIWcqVcl dGQ+ZU92uz18P3VxAfmvGak3DYZoY OF1bTS5pO7qOTVhDLyix0H3yNS6L0 AdbhDeyt9jm0sqDQMg MAsqK61lfRKsg7A9DYNnbUG9RBZew CcgXkTzrY10Whx+UVDbfRjdt5RiNa rhn1obv9myuHg5VgEc SQBfjdSwvWouFHP6w5JxUq82T08wT FhvNMNcFNAjMKDzLSEczWndvx6hfK 9wIi8+WVJkuMS3hER6 zC6bMwSpCvS5DBkqA228DwPotLZyZ ghyq2vne7bbdPf4HzYkCXFddaOwjK wkXJE1o1AeEv27V8Zf fQqri3BtAft3ss45yWYet8H5mTZ4O 9OvLKBhzdzehLQztVkmWN2cPBIogm awTPVziQ0uFDRrF6a3 IrSdCgB8QSqxX6LvbjI9QJAxuFFkF OMwnABXxR2ohljsw6khnifeMcPtTD XgVJc3IIo1PWDbvKko IdYlJEB2QzZ7FRR5rGIwtE4plBodn ihqbD0sZyo+XFg0u4tvtYRoZX1haP S2NV12DS29aISqr4R0 tZJ5T8SpSAJmzzuewhhkuOD5XOPkK NZvxA43Nb0tqHhhHz9nWRDlPMC2IO YctCAkB3TpuU6zOwXb NXGsHUZyE0LsdPZaHFluM978AWvcV yB1BMBvxjIzW2KvDVMluBxkQeR1y2 H2Pn5TRV78MU62PM19 eNYsi5V5lKN7J4LmFVTnugfzcumjr YI9SQRxODDqkE25Il1xgVxuQs7eOY ImMXV8OSEkmSDsE5Wf hK2gXvZwAWChGWRkA5ZsiXGvYQssK 472HYvkKeX9CXUxpeSeF8IzXPRqyG ihKlR4j3Y8Ke8KFo20 XZ32TZ88rQBkh4N5gXU1O1LiUBSqr runkirhpYO8NGWnXWHelA59Td9fmZ rpHh0rOQKgUEU9SBZt oFGfZ2NkeJ7oUuEmGLXqVRZxK7Ivb CBuFIruL719CKkwWtW3KQUevvEsK5 QtBRBryOqyRmA2t3Y3 Nb2GVStflug1D9EmDjsfcGU+PC90Y NZeXF24wSHqrWRcc3uqzIv3CwSeWN YiXPV9eBbuBAbvc9Sg ZXI (more content not included)... Normal [facility] C Bloodon 10-18-2023 C Blood No growth at 5 Days Normal [facility] Comment on above: Performed By: #### 2 [id number], [id number] #### [facility] (DEFAULT) [address] [place] [address] 16789 Consent Formson 10-17-2023 Consent Forms [id number][facility] 10-17-2023 Outside Records [id number]#1.[facility] Provider Orderson 10-17-2023 Provider Orders [id number]#1.00[place] Telemetry Stripson Telemetry Strips [id number][facility] Documentation on 10-16-2023 Therapeutic Documentation [id number]#1.00[facility] C Bloodon 10-16-2023 C Blood patient went to [facility] scan Nurse from [address] [place] [address] will call when patient is back to her room @1440 jwilkins No growth at 5 Days Normal [facility] Comment on above: Performed By: #### 6 [id number] ####[facility] (DEFAULT)[address] [place] [address] 37325 CRPon 10-16-2023 CRP 3.1 mg/dL High <=0.5 [facility] Comment on above: Performed By: #### 2 662586, [id number] #### [facility] (DEFAULT) [address] [place] [address] 96607 Inpatient Patient Summaryon 10-16-2023 Inpatient Patient Summary [address] [id number] Patient Discharge Instructions Name: ALICIA NGUYỄN : 1940 Patient Address: [address] [place] [address] Primary Care Provider: Name: SANTIAGO OTTO After you are discharged if you find you have any questions, please, call [phone] ext [phone] to speak to a nurse. The Pharmacy at [facility] is open Sunday through Sunday from 9A [...] alcohol and/or drug addiction problems; contact the [facility] 28/05 Crisis Hotline -Text 8[place] [place] [phone]. If you received any narcotics, sedation, or [...] business decisions or sign any legal documents [facility] would like to thank you for allowing us to assist you with your healthcare needs. The following includes patient education materials and information regarding your injury/illness. ALICIA NGUYỄN has been given the following list of follow-up instructions, prescriptions, and patient education materials: Follow-up Instructions With: Address: When: OJB AGUILAR DO [address] [address] [place] [address] Within 10 to 12 days Comments: orthopedic follow up With: Address: When: Jamal Vizcarra [address] [place] [address], [address] [place] [address] Business (1) 10/26/2023 10:30 AM [...] 30 mg o (more content not included)... [facility] Noteon 10-16-2023 Pharmacy Note I [...] list against external fill history and available RECREATION PROGRAMMER medication history to ensure accuracy. Reviewed regimen upon discharge which is appropriate and correct. Did not safety counselor [facility]. [Electronically Signed on: 10/16/2023 11:12 EST] Jamal Butler [Verified on: 10/16/2023 11:12 EST] Jamal Butler Normal [facility] Sed Rateon 10-16-2023 Sed Rate 83 mm/hr High 0-20 [facility] Comment on above: Performed By: #### 2 861203, [id number] #### [facility] (DEFAULT) [address] [place] [address] .Auto Diff 1on 10-15-2023 Auto [place] % 9 % Normal 11-16 [facility] Comment on above: Performed By: #### 2 416053, [id number], 18620799, 1820411, 2101134 #### [facility] (DEFAULT) [address] [place] [address] Baso Abs# 0.0 x10 Normal 0.0-0.2 [facility] Comment on above: Performed By: #### 2 973969, [id number], 73754615, 6758485, 9266425 #### [facility] (DEFAULT) [address] [place] [address] Basophils/100 WBC (Bld) 0.2 % Normal 0.2-2.0 [facility] Comment on above: Performed By: #### 2 894238, [id number], 70041581, 7731439, 1727459 #### [facility] (DEFAULT) [address] [place] [address] Eos Abs# 0.1 x10 Normal 0.0-0.4 [facility] Comment on above: Performed By: #### 2 494732, [id number], 20369336, 9797987, 4113149 #### [facility] (DEFAULT) [address] [place] [address] 29230 Eosinophils/100 WBC (Bld) 0.8 % Low 0.9-4.0 [facility] Comment on above: Performed By: #### 2 556204, [id number], 92397396, 0383971, 1957368 #### [facility] (DEFAULT) [address] [place] [address] 23899 Lymph Abs# 1.1 x10 Low 1.3-2.9 [facility] Comment on above: Performed By: #### 2 655531, [id number], 84513669, 7499730, 6464657 #### [facility] (DEFAULT) [address] [place] [address] 41499 Lymphocytes/100 WBC (Bld) 13 % Low 14-48 [facility] Comment on above: Performed By: #### 2 214604, [id number], 08580009, 4252534, 7866116 #### [facility] (DEFAULT) [address] [place] [address] [place] Abs# 0.8 x10 Normal 0.0-0.8 [facility] Comment on above: Performed By: #### 2 939170, [id number], 47880763, 2512905, 8867873 #### [facility] (DEFAULT) [address] [place] [address] Neut Abs# 6.5 x10 Normal 1.5-9.2 [facility] Comment on above: Performed By: #### 2 755325, [id number], 50380250, 2502412, 2222065 #### [facility] (DEFAULT) [address] [place] [address] Neutrophils/100 WBC (Bld) 76 % Normal 44-88 [facility] Comment on above: Performed By: #### 2 914974, [id number], 82933886, 2649779, 5069291 #### [facility] (DEFAULT) [address] [place] [address] Standardon 10-15-2023 Breakpoint Chem Normal [facility] Comment on above: Performed By: #### 2 633667, [id number], 74239249, 6905775, 9710050 #### [facility] (DEFAULT) [address] [place] [address] eGFR Non AA >60 Invalid Interpretation Code [facility] Comment on above: Performed By: #### 2 121716, [id number], 41784887, 3356008, 4509042 #### [facility] (DEFAULT) [address] [place] [address] eGFR AA >60 Invalid Interpretation Code [facility] Comment on above: Performed By: #### 2 654062, [id number], 96883235, 9004486, 4552778 #### [facility] (DEFAULT) [address] [place] [address] Anion gap [Moles/Vol] 7.4 mmol/L Normal 5.0-19.0 [facility] Comment on above: Performed By: #### 2 318370, [id number], 02737360, 0389801, 5249799 #### [facility] (DEFAULT) [address] [place] [address] 03690 Calcium [Mass/Vol] 8.8 mg/dL Low 8.9-10.3 [facility] Comment on above: Performed By: #### 2 191044, 8133047587, 22836753, 5883630, 3832372 #### [facility] (DEFAULT) [address] [place] [address] 70483 Chloride [Moles/Vol] 106 mmol/L Normal 101-111 [facility] Comment on above: Performed By: #### 2 962156, [id number], 30943698, 6676176, 4905454 #### [facility] (DEFAULT) [address] [place] [address] 29287 CO2 [Moles/Vol] 26 mmol/L Normal 21-32 [facility] Comment on above: Performed By: #### 2 354180, 0791127063, 18672924, 3952970, 9925161 #### [facility] (DEFAULT) [address] [place] [address] 17426 Creatinine [Mass/Vol] 0.88 mg/dL Normal 0.60-1.30 [facility] Comment on above: Performed By: #### 2 266019, [id number], 60415018, 3427257, 0298650 #### [facility] (DEFAULT) [address] [place] [address] 26772 Glucose [Mass/Vol] 109.0 mg/dL Normal 74.0-118.0 [facility] Comment on above: Performed By: #### 2 903976, 3295134765, 77126962, 2160577, 9650050 #### [facility] (DEFAULT) [address] [place] [address] 38295 Osmolality 273 mOsm/L Invalid Interpretation Code [facility] Comment on above: Performed By: #### 2 130642, [id number], 46332657, 3703881, 5150351 #### [facility] (DEFAULT) [address] [place] [address] Potassium [Moles/Vol] 4.4 mmol/L Normal 3.6-5.1 [facility] Comment on above: Performed By: #### 2 783253, 3995385562, 09061183, 9590252, 2103943 #### [facility] (DEFAULT) [address] [place] [address] Sodium [Moles/Vol] 135.0 mmol/L Low 136.0-144.0 [facility] Comment on above: Performed By: #### 2 819766, 1404923099, 55647972, 4134189, 9559970 #### [facility] (DEFAULT) [address] [place] [address] Urea nitrogen [Mass/Vol] 19 mg/dL Normal 8-26 [facility] Comment on above: Performed By: #### 2 428153, 0744296909, 55522736, 4861253, 9455500 #### [facility] (DEFAULT) [address] [place] [address] Urea nitrogen/Creatinin e [Mass ratio] 21.5 mg/mg High 4.6-16.2 [facility] Comment on above: Performed By: #### 2 493649, [id number], 69275609, 2443950, 9062927 #### [facility] (DEFAULT) [address] [place] [address] CBC w/ Auto Diffon 3 Erythrocyte distribution width (RBC) [Ratio] 15.3 % High 11.5-15.0 [facility] Comment on above: Performed By: #### 2 025814, 2598547897, 00947037, 6217267, 2946330 #### [facility] (DEFAULT) [address] [place] [address] Hematocrit (Bld) [Volume fraction] 29.8 % Low 33.7-40.4 [facility] Comment on above: Performed By: #### 2 667629, 0120649868, 16578326, 6968440, 1183943 #### [facility] (DEFAULT) [address] [place] [address] Hemoglobin (Bld) [Mass/Vol] 9.9 g/dL Low 11.3-15.9 [facility] Comment on above: Performed By: #### 2 770344, 9411713608, 68171749, 3453487, 9624753 #### [facility] (DEFAULT) [address] [place] [address] Man Diff? Auto Invalid Interpretation Code [facility] Comment on above: Performed By: #### 2 916475, [id number], 80618408, 9451520, 6135352 #### [facility] (DEFAULT) [address] [place] [address] MCH (RBC) [Entitic mass] 30 pg Normal 24-34 [facility] Comment on above: Performed By: #### 2 597007, 8518104255, 12705680, 7148023, 7240993 #### [facility] (DEFAULT) [address] [place] [address] MCHC (RBC) [Mass/Vol] 33 g/dL Normal 26-37 [facility] Comment on above: Performed By: #### 2 966899, 5464615073, 91478375, 0455668, 4156986 #### [facility] (DEFAULT) [address] [place] [address] MCV (RBC) [Entitic vol] 90 fL Normal 81-100 [facility] Comment on above: Performed By: #### 2 954857, 8469246845, 99987568, 2236078, 0244374 #### [facility] (DEFAULT) [address] [place] [address] Platelet 363 x10 Normal 138-427 [facility] Comment on above: Performed By: #### 2 974279, 3933092440, 73081477, 9149467, 5481017 #### [facility] (DEFAULT) [address] [place] [address] Platelet mean volume (Bld) [Entitic vol] 6.1 fL Low 6.3-10.2 [facility] Comment on above: Performed By: #### 2 854348, 5987886248, 18778137, 6111353, 6334968 #### [facility] (DEFAULT) [address] [place] [address] RBC 3.31 x10 Low 3.70-5.30 [facility] Comment on above: Performed By: #### 2 [id number], [id number], [id number], [id number], [id number] #### [facility] (DEFAULT) [address] [place] [address] 75016 WBC 8.5 x10 Normal 3.5-10.5 [facility] Comment on above: Performed By: #### 2 [id number], [id number], [id number], [id number], [id number] #### [facility] (DEFAULT) [address] [place] [address] 13477 CRPon 10-15-2023 CRP 2.1 mg/dL High <=0.5 [facility] Comment on above: Performed By: #### 2 [id number], [id number], [id number], [id number], [id number] ####[facility] (DEFAULT)[address] [place] [address] Nutrition Noteon 10-15-2023 Nutrition Note Per intake records, Pts avg 75+% of meals. Last BM 10/13. 10/15 labs reviewed, CRP/sed rate slowly improving. PICC line in place for IV atb. Discharge anticipated for tomorrow. Normal [facility] Sed Rateon 10-15-2023 Sed Rate 78 mm/hr High 0-20 [facility] Comment on above: Performed By: #### 2 [id number], [id number], [id number], [id number], [id number] ####[facility] (DEFAULT)[address] [place] [address]32[address] XR Chest 1 View Frontalon XR Chest [...] DO 10/15/23 1:04 pm Technologist: Peggy LOMELI [facility] C Fluidon 10-14-2023 C Fluid Moderate [...] <=0.5 Verified Vanc S 0.5 Verified Normal [facility] Comment on above: Performed By: #### 2 [id number], [id number] #### [facility] (DEFAULT) [address] [place] [address] 81384 CRPon 10-14-2023 CRP 1.8 mg/dL High <=0.5 [facility] Comment on above: Performed By: #### 2 132704, [id number] #### [facility] (DEFAULT) [address] [place] [address]45 Sed Rateon 10-14-2023 Sed Rate 74 mm/hr High 0-20 [facility] Comment on above: Performed By: #### 2 [id number], [id number] #### [facility] (DEFAULT) [address] [place] [address] .Auto Diff 1on 10-13-2023 Auto [place] % 5 % Normal 11-16 [facility] Comment on above: Performed By: #### 2 [id number], [id number] #### [facility] (DEFAULT) [address] [place] [address] 35975 Baso Abs# 0.0 x10 Normal 0.0-0.2 [facility] Comment on above: Performed By: #### 2 [id number], [id number] #### [facility] (DEFAULT) [address] [place] [address] Basophils/100 WBC (Bld) 0.2 % Normal 0.2-2.0 [facility] Comment on above: Performed By: #### 2 [id number], [id number] #### [facility] (DEFAULT) [address] [place] [address] Eos Abs# 0.0 x10 Normal 0.0-0.4 [facility] Comment on above: Performed By: #### 2 323372, [id number] #### [facility] (DEFAULT) [address] [place] [address] Eosinophils/100 WBC (Bld) 0.1 % Low 0.9-4.0 [facility] Comment on above: Performed By: #### 2 907232, [id number] #### [facility] (DEFAULT) [address] [place] [address] Lymph Abs# 1.0 x10 Low 1.3-2.9 [facility] Comment on above: Performed By: #### 2 [id number], [id number] #### [facility] (DEFAULT) [address] [place] [address] Lymphocytes/100 WBC (Bld) 9 % Low 14-48 [facility] Comment on above: Performed By: #### 2 734981, [id number] #### [facility] (DEFAULT) [address] [place] [address]87[address] [place] Abs# 0.6 x10 Normal 0.0-0.8 [facility] Comment on above: Performed By: #### 2 651445, [id number] #### [facility] (DEFAULT) [address] [place] [address] 98756 Neut Abs# 10.1 x10 High 1.5-9.2 [facility] Comment on above: Performed By: #### 2 903586, [id number] #### [facility] (DEFAULT) [address] [place] [address] 52281 Neutrophils/100 WBC (Bld) 86 % Normal 44-88 [facility] Comment on above: Performed By: #### 2 038669, [id number] #### [facility] (DEFAULT) [address] [place] [address] 58024 BMP Standardon 10-13-2023 Breakpoint Chem Normal [facility] Comment on above: Performed By: #### 2 059479, [id number] #### [facility] (DEFAULT) [address] [place] [address] 82085 eGFR Non AA >60 Invalid Interpretation Code [facility] Comment on above: Performed By: #### 2 912735, [id number] #### [facility] (DEFAULT) [address] [place] [address] 45440 eGFR AA >60 Invalid Interpretation Code [facility] Comment on above: Performed By: #### 2 829336, [id number] #### [facility] (DEFAULT) [address] [place] [address] 13792 Calcium [Mass/Vol] 8.5 mg/dL Low 8.9-10.3 [facility] Comment on above: Performed By: #### 2 [id number], [id number] #### [facility] (DEFAULT) [address] [place] [address] 95505 Chloride [Moles/Vol] 105 mmol/L Normal 101-111 [facility] Comment on above: Performed By: #### 2 960079, [id number] #### [facility] (DEFAULT) [address] [place] [address] 05780 CO2 [Moles/Vol] 24 mmol/L Normal 21-32 [facility] Comment on above: Performed By: #### 2 364192, [id number] #### [facility] (DEFAULT) [address] [place] [address] 49420 Creatinine [Mass/Vol] 0.76 mg/dL Normal 0.60-1.30 [facility] Comment on above: Performed By: #### 2 603412, [id number] #### [facility] (DEFAULT) [address] [place] [address] 98548 Glucose [Mass/Vol] 113.0 mg/dL Normal 74.0-118.0 [facility] Comment on above: Performed By: #### 2 370774, 4828055 #### [facility] (DEFAULT) [address] [place] [address] 60467 Potassium [Moles/Vol] 4.9 mmol/L Normal 3.6-5.1 [facility] Comment on above: Performed By: #### 2 085903, 6462437 #### [facility] (DEFAULT) [address] [place] [address] 80826 Sodium [Moles/Vol] 135.0 mmol/L Low 136.0-144.0 [facility] Comment on above: Performed By: #### 2 686186, 4610646 #### [facility] (DEFAULT) [address] [place] [address] 90072 Urea nitrogen [Mass/Vol] 33 mg/dL High 8-26 [facility] Comment on above: Performed By: #### 2 646783, 6515286 #### [facility] (DEFAULT) [address] [place] [address] 19788 Anion gap [Moles/Vol] 10.9 mmol/L Normal 5.0-19.0 [facility] Comment on above: Performed By: #### 2 396048, 1628863 #### [facility] (DEFAULT) [address] [place] [address] 88744 Osmolality 278 mOsm/L Invalid Interpretation Code [facility] Comment on above: Performed By: #### 2 643310, [id number] #### [facility] (DEFAULT) [address] [place] [address] 15070 Urea nitrogen/Creatinin e [Mass ratio] 43.4 mg/mg High 4.6-16.2 [facility] Comment on above: Performed By: #### 2 162616, 0620656 #### [facility] (DEFAULT) [address] [place] [address] 36900 C Bloodon 10-13-2023 C Blood Bacillus species No ANICETO performed on this organism Results called to Alicia Leonard RN at 2S by CDD and results read back for confirmation on 10/12/2023 05:12:42 Normal [facility] Comment on above: Performed By: #### 2 704715, 5101591 #### [facility] (DEFAULT) [address] [place] [address] CBC w/ Auto Diffon 3 Erythrocyte distribution width (RBC) [Ratio] 15.0 % Normal 11.5-15.0 [facility] Comment on above: Performed By: #### 2 259550, 1036183 #### [facility] (DEFAULT) [address] [place] [address] Hematocrit (Bld) [Volume fraction] 26.7 % Low 33.7-40.4 [facility] Comment on above: Performed By: #### 2 542623, 1810056 #### [facility] (DEFAULT) [address] [place] [address] Hemoglobin (Bld) [Mass/Vol] 8.9 g/dL Low 11.3-15.9 [facility] Comment on above: Performed By: #### 2 084458, 6875108 #### [facility] (DEFAULT) [address] [place] [address] Man Diff? Auto Invalid Interpretation Code [facility] Comment on above: Performed By: #### 2 726678, 6896728 #### [facility] (DEFAULT) [address] [place] [address] 16070 MCH (RBC) [Entitic mass] 30 pg Normal 24-34 [facility] Comment on above: Performed By: #### 2 083603, 1261845 #### [facility] (DEFAULT) [address] [place] [address] 20491 MCHC (RBC) [Mass/Vol] 33 g/dL Normal 26-37 [facility] Comment on above: Performed By: #### 2 213942, 9749303 #### [facility] (DEFAULT) [address] [place] [address] 37202 MCV (RBC) [Entitic vol] 89 fL Normal 81-100 [facility] Comment on above: Performed By: #### 2 189468, 2282592 #### [facility] (DEFAULT) [address] [place] [address] 83452 Platelet 386 x10 Normal 138-427 [facility] Comment on above: Performed By: #### 2 524184, 9086638 #### [facility] (DEFAULT) [address] [place] [address] 27005 Platelet mean volume (Bld) [Entitic vol] 6.1 fL Low 6.3-10.2 [facility] Comment on above: Performed By: #### 2 095329, 1928196 #### [facility] (DEFAULT) [address] [place] [address] 08171 RBC 3.00 x10 Low 3.70-5.30 [facility] Comment on above: Performed By: #### 2 341584, 8919124 #### [facility] (DEFAULT) [address] [place] [address] 40986 WBC 11.8 x10 High 3.5-10.5 [facility] Comment on above: Performed By: #### 2 592182, 2182871 #### [facility] (DEFAULT) [address] [place] [address] 39849 CRPon 10-13-2023 CRP 3.2 mg/dL High <=0.5 [facility] Comment on above: Performed By: #### 2 141532, 1394191 #### [facility] (DEFAULT) [address] [place] [address] 79117 Sed Rateon 10-13-2023 Sed Rate 82 mm/hr High 0-20 [facility] Comment on above: Performed By: #### 2 260781, 1324124 #### [facility] (DEFAULT) [address] [place] [address] 63178 .Auto Diff 1on 10-12-2023 Auto [place] % 6 % Normal -12 [facility] Comment on above: Performed By: #### 1 4673242, [id number], 5554424 ####[facility] (DEFAULT)[address] [place] [address] 10917 Baso Abs# 0.0 x10 Normal 0.0-0.2 [facility] Comment on above: Performed By: #### 1 5654282, [id number], 9979408 ####[facility] (DEFAULT)[address] [place] [address] 05574 Basophils/100 WBC (Bld) 0.1 % Low 0.2-2.0 [facility] Comment on above: Performed By: #### 1 2225474, [id number], 3445170 ####[facility] (DEFAULT)[address] [place] [address] Eos Abs# 0.0 x10 Normal 0.0-0.4 [facility] Comment on above: Performed By: #### 1 8419265, [id number], 3567684 ####[facility] (DEFAULT)[address] [place] [address] 48671 Eosinophils/100 WBC (Bld) 0.0 % Low 0.9-4.0 [facility] Comment on above: Performed By: #### 1 9565157, 3383644122, 6598509 ####[facility] (DEFAULT)[address] [place] [address] Lymph Abs# 0.7 x10 Low 1.3-2.9 [facility] Comment on above: Performed By: #### 1 0077670, [id number], 4058446 ####[facility] (DEFAULT)[address] [place] [address] 87584 Lymphocytes/100 WBC (Bld) 6 % Low 14-48 [facility] Comment on above: Performed By: #### 1 7991948, 8358412596, 6093731 ####[facility] (DEFAULT)[address] [place] [address] 31331 [place] Abs# 0.7 x10 Normal 0.0-0.8 [facility] Comment on above: Performed By: #### 1 7411225, 9034145369, 1558356 ####[facility] (DEFAULT)[address] [place] [address] 02985 Neut Abs# 10.3 x10 High 1.5-9.2 [facility] Comment on above: Performed By: #### 1 5485918, 7197036631, 3324488 ####[facility] (DEFAULT)[address] [place] [address] Neutrophils/100 WBC (Bld) 88 % Normal 44-88 [facility] Comment on above: Performed By: #### 1 6087069, 8646607934, 7970036 ####[facility] (DEFAULT)[address] [place] [address] CBC w/ Auto Diffon 3 Erythrocyte distribution width (RBC) [Ratio] 15.5 % High 11.5-15.0 [facility] Comment on above: Performed By: #### 1 5491052, 1346306042, 7806441 ####[facility] (DEFAULT)[address] [place] [address] Hematocrit (Bld) [Volume fraction] 29.6 % Low 33.7-40.4 [facility] Comment on above: Performed By: #### 1 0448421, 1906490113, 9741308 ####[facility] (DEFAULT)[address] [place] [address] Hemoglobin (Bld) [Mass/Vol] 10.1 g/dL Low 11.3-15.9 [facility] Comment on above: Performed By: #### 1 4464846, 4950349904, 3838214 ####[facility] (DEFAULT)[address] [place] [address] Man Diff? Auto Invalid Interpretation Code [facility] Comment on above: Performed By: #### 1 1545656, [id number], 0908547 ####[facility] (DEFAULT)[address] [place] [address] MCH (RBC) [Entitic mass] 30 pg Normal 24-34 [facility] Comment on above: Performed By: #### 1 7633434, 5390631736, 4341738 ####[facility] (DEFAULT)[address] [place] [address] MCHC (RBC) [Mass/Vol] 34 g/dL Normal 26-37 [facility] Comment on above: Performed By: #### 1 0914137, 3803014605, 5514470 ####[facility] (DEFAULT)[address] [place] [address] 15194 MCV (RBC) [Entitic vol] 88 fL Normal 81-100 [facility] Comment on above: Performed By: #### 1 0573283, 0036882936, 2878208 ####[facility] (DEFAULT)[address] [place] [address] 04159 Platelet 434 x10 High 138-427 [facility] Comment on above: Performed By: #### 1 1532033, 8916610389, 0902652 ####[facility] (DEFAULT)[address] [place] [address] 68904 Platelet mean volume (Bld) [Entitic vol] 6.2 fL Low 6.3-10.2 [facility] Comment on above: Performed By: #### 1 2385523, 0756277977, 4898751 ####[facility] (DEFAULT)[address] [place] [address] 63969 RBC 3.38 x10 Low 3.70-5.30 [facility] Comment on above: Performed By: #### 1 6270227, 5535754917, 9836406 ####[facility] (DEFAULT)[address] [place] [address] 70580 WBC 11.7 x10 High 3.5-10.5 [facility] Comment on above: Performed By: #### 1 0808554, 3711075884, 8889271 ####[facility] (DEFAULT)[address] [place] [address] 81431 CMP Standardon 10-12-2023 eGFR Non AA 57 mL/min/1.73m2 Invalid Interpretation Code [facility] Comment on above: Performed By: #### 1 8338364, 2138846535, 0867626 ####[facility] (DEFAULT)[address] [place] [address] 83055 eGFR AA >60 Invalid Interpretation Code [facility] Comment on above: Performed By: #### 1 6137867, 7530619620, 6060491 ####[facility] (DEFAULT)[address] [place] [address] 77697 Albumin [Mass/Vol] 2.4 g/dL Low 3.5-5.0 [facility] Comment on above: Performed By: #### 1 3265804, 5282213443, 1269553 ####[facility] (DEFAULT)[address] [place] [address] 73521 Albumin/Globulin [Mass ratio] 0.6 {ratio} Low 1.4-2.6 [facility] Comment on above: Performed By: #### 1 3624862, 6785359571, 3355388 ####[facility] (DEFAULT)[address] [place] [address] 69725 Alk Phos 105 IU/L High 32-91 [facility] Comment on above: Performed By: #### 1 1194853, 0770585910, 6117142 ####[facility] (DEFAULT)[address] [place] [address] ALT [Catalytic activity/Vol] 19.0 U/L Normal 14.0-54.0 [facility] Comment on above: Performed By: #### 1 1573603, 3764168570, 9305467 ####[facility] (DEFAULT)[address] [place] [address] 71509 Anion gap [Moles/Vol] 14.7 mmol/L Normal 5.0-19.0 [facility] Comment on above: Performed By: #### 1 0021100, 6000317109, 0462188 ####[facility] (DEFAULT)[address] [place] [address] 06946 AST [Catalytic activity/Vol] 17 U/L Normal 15-41 [facility] Comment on above: Performed By: #### 1 3319921, 7394860750, 8120619 ####[facility] (DEFAULT)[address] [place] [address] 75487 Bili Total 0.6 mg/dL Normal 0.3-1.2 [facility] Comment on above: Performed By: #### 1 5418957, 7427175493, 5831540 ####[facility] (DEFAULT)[address] [place] [address] 98369 Calcium [Mass/Vol] 8.8 mg/dL Low 8.9-10.3 [facility] Comment on above: Performed By: #### 1 8907634, 0446809179, 5373862 ####[facility] (DEFAULT)[address] [place] [address] 17516 Chloride [Moles/Vol] 103 mmol/L Normal 101-111 [facility] Comment on above: Performed By: #### 1 2927340, 8628888275, 4715163 ####[facility] (DEFAULT)[address] [place] [address] 15019 CO2 [Moles/Vol] 25 mmol/L Normal 21-32 [facility] Comment on above: Performed By: #### 1 1258655, 7088208697, 0674378 ####[facility] (DEFAULT)[address] [place] [address] Creatinine [Mass/Vol] 0.94 mg/dL Normal 0.60-1.30 [facility] Comment on above: Performed By: #### 1 6180244, 2788806575, 8367777 ####[facility] (DEFAULT)[address] [place] [address] 59068 Globulin (S) [Mass/Vol] 3.5 g/dL Normal 1.5-4.3 [facility] Comment on above: Performed By: #### 1 2914244, 2486732713, 0710967 ####[facility] (DEFAULT)[address] [place] [address] 49375 Glucose [Mass/Vol] 161.0 mg/dL High 74.0-118.0 [facility] Comment on above: Performed By: #### 1 0065570, 4489374535, 4625799 ####[facility] (DEFAULT)[address] [place] [address] 83135 Osmolality 286 mOsm/L Invalid Interpretation Code [facility] Comment on above: Performed By: #### 1 1562073, 7268834067, 3479330 ####[facility] (DEFAULT)[address] [place] [address] 24874 Potassium [Moles/Vol] 4.7 mmol/L Normal 3.6-5.1 [facility] Comment on above: Performed By: #### 1 6826579, 8705096429, 0501845 ####[facility] (DEFAULT)[address] [place] [address] 49867 Protein [Mass/Vol] 5.9 g/dL Low 6.5-8.1 [facility] Comment on above: Performed By: #### 1 8747481, 9339110961, 8349785 ####[facility] (DEFAULT)[address] [place] [address] 53114 Sodium [Moles/Vol] 138.0 mmol/L Normal 136.0-144.0 [facility] Comment on above: Performed By: #### 1 0716608, 4342250238, 4049477 ####[facility] (DEFAULT)[address] [place] [address] 48390 Urea nitrogen [Mass/Vol] 32 mg/dL High 8-26 [facility] Comment on above: Performed By: #### 1 3608210, 9393486883, 6006459 ####[facility] (DEFAULT)[address] [place] [address] 73585 Urea nitrogen/Creatinin e [Mass ratio] 34.0 mg/mg High 4.6-16.2 [facility] Comment on above: Performed By: #### 1 2026286, 7260029945, 3404485 ####[facility] (DEFAULT)[address] [place] [address] 10719 CRPon 10-12-2023 CRP 7.2 mg/dL High <=0.5 [facility] Comment on above: Performed By: #### 2 102560, 2488612 #### [facility] (DEFAULT) [address] [place] [address] 77256 Consent Formson 10-12-2023 Consent Forms [id number] Normal [facility] Nutrition Noteon 10-12-2023 Nutrition Note Pt admitted w/ Rt kn ee pain, recent washout. CT scan noting septic arthritis, IV atb initiated. Pt placed on a Regular diet, so far eating 100%. Admit wt 60.8kg no wt hx on file, denied any wt changes per sock folder assessment. No chewing/swallowing problems identified. Labs reviewed [...] taking extra protein at home. To follow. [facility] Noteon 10-12-2023 Pharmacy Note This [...] [Verified on: 10/12/2023 10:24 EST] Andrés Grover [facility] Procalcitoninon 10-12-2023 Procalcitonin 0.109 ng/mL Low 0.500-1.000 [facility] Comment on above: Performed By: #### 7 [id number] #### [facility] (DEFAULT) [address] [place] [address] Sed Rateon 10-12-2023 Sed Rate 74 mm/hr High 0-20 [facility] Comment on above: Performed By: #### 2 430596, 1233963 #### [facility] (DEFAULT) [address] [place] [address] US Echocardiogram Completeon 10-12-2023 US Echocardiogram Complete [...] Junction2.89 cm F: 2.3 - 2.9 LV Yxji770.22 g LVOT Diameter 2.09 cm IVC1.25 (<= [...] Single Plane 4 CH 25.69 mLBiplane LA Rjlujq52.33 mL Single Plane 2 CH67.19 mLLA ESV Index29.65 mL/m2 Right Atrium Area Systole RA Systolic Area A4C9.10 cm2RA Systolic Vol A4C19.30 mL Aortic Valve AoV Peak Velocity1.30 m/sLVOT Peak Velocity1.04 m/s AO Mean Velocity0.86 m/sLVOT Mean Velocity0.61 m/s AO Peak PG6.80 mmHgLVOT Peak PG4.31 mmHg AO Mean PG3.48 mmHgLVOT Mean PG1.86 mmHg AO V2 VTI22.79 cmLVOT V1 VTI20.10 cm ESTUARDO (Vmax)2.73 tv1FHHT Area 3.43 cm2 ESTUARDO (VTI)3.03 cm2SV (LVOT) 68.96 mL Indexed ESTUARDO (VTI)1.85 cm2/m2AI Wilcox 2.40 m/s2 AI VZV431.11 ms Mitral Valve MV Max Crldiyiq570.09 m/sMV PHT58.48 ms MV E Max Velocity0.55 m/sMVA (PHT)3.76 cm2 MV A Max Velocity0.67 m/sMR OLD222.58 cm E/A Ratio0.8MR Peak Velocity5.74 m/s MV Decel. Ecgj564.67 ms TDI Med e' Velocity5.08 cm/sMV E / Medial e' 10.72 Lat e' Velocity6.45 cm/sMV E / Lateral e' 8.45 TV S'16.13 cm/s Pulmonary Valve PV Peak Velocity0.78 m/sPV Peak PG2.43 mmHg AZ End Diastolic Carlos.62.56 m/s PV Mean PG1.46 mmHg Tricuspid Valve TR Peak Velocity3.10 m/sRAP Estimate3.00 mmHg TR Peak PG38.55 wiKkXRWO35.55 mmHg Final Signed (Electronic Signature): Marquis Pulido MD 10/12/23 3:45 pm Technologist: ERA [facility] XR Chest 1 View Frontalon XR [...] MD 10/12/23 9:27 am Technologist: SANGEETA SIMPSON [facility] .Auto Diff 10-11-2023 Auto [place] % 7 % Normal 11-16 [facility] Comment on above: Performed By: #### 2 415275, 9596013739, 80867701, 0213595779, 1535580983, 3384443662, 9026001437, 0130454 ####[facility] (DEFAULT)[address] [place] [address] 90016 Baso Abs# 0.1 x10 Normal 0.0-0.2 [facility] Comment on above: Performed By: #### 2 896763, 4764972999, 50917376, 6506046793, 9602809229, 0277329142, 3268406169, 4791314 ####[facility] (DEFAULT)[address] [place] [address] 97270 Basophils/100 WBC (Bld) 0.4 % Normal 0.2-2.0 [facility] Comment on above: Performed By: #### 2 992492, 2777665594, 92201294, 0269686556, 8551389468, 9117739696, 9217557936, 1703128 ####[facility] (DEFAULT)[address] [place] [address] 73104 Eos Abs# 0.0 x10 Normal 0.0-0.4 [facility] Comment on above: Performed By: #### 2 055534, 2078068445, 10199432, 1030273196, 2430689927, 2959299730, 7980193334, 2195207 ####[facility] (DEFAULT)[address] [place] [address] 78830 Eosinophils/100 WBC (Bld) 0.2 % Low 0.9-4.0 [facility] Comment on above: Performed By: #### 2 589889, 0599776845, 20350871, 9340361355, 2182727517, 5746020549, 5166261467, 5146488 ####[facility] (DEFAULT)[address] [place] [address] 35967 Lymph Abs# 1.2 x10 Low 1.3-2.9 [facility] Comment on above: Performed By: #### 2 060254, 7813176799, 28232190, 7071947009, 7693607638, 8119284294, 5349133724, 7253562 ####[facility] (DEFAULT)[address] [place] [address] 28917 Lymphocytes/100 WBC (Bld) 8 % Low 14-48 [facility] Comment on above: Performed By: #### 2 755095, 3473063351, 60069147, 9939680930, 5456390130, 7807388494, 1482741461, 3510488 ####[facility] (DEFAULT)[address] [place] [address] 85931 [place] Abs# 1.1 x10 High 0.0-0.8 [facility] Comment on above: Performed By: #### 2 825436, 9366511227, 18642442, 7962073416, 1648180357, 0821785918, 4594409913, 5610451 ####[facility] (DEFAULT)[address] [place] [address] 66477 Neut Abs# 13.6 x10 High 1.5-9.2 [facility] Comment on above: Performed By: #### 2 184001, 1191237766, 26915761, 6342439080, 7910093751, 3927361481, 4641546134, 0575267 ####[facility] (DEFAULT)[address] [place] [address] 12526 Neutrophils/100 WBC (Bld) 85 % Normal 44-88 [facility] Comment on above: Performed By: #### 2 201633, 2878181519, 50981664, 9658279749, 8952867365, 6196524311, 5350909104, 5572814 ####[facility] (DEFAULT)[address] [place] [address] 86366 Anesthesia Noteon 10-11-2023 Anesthesia Note Patient: ALICIA [...] on: 10/11/2023 13:00 EST] Sheryl Dennis DO [facility] Anesthesia Note Patient: ALICIA NGUYỄN Age: [...] All Problems HTN (hypertension) / SNOMED CT 7590360694 / Confirmed Hypothyroidism / SNOMED CT 69516840 / Confirmed Histories Family History: No family history items have been selected or recorded. Procedure history: Appendectomy (692413667). History of total hysterectomy ([id number]). Knee (164519198). Comments: 10/11/2023 7:23 Radha Siddiqui RN total left Plantar fasciitis ([id number]). Comments: 10/11/2023 7:26 Radha Siddiqui RN left Cholecystectomy (07712137). Metatarsal (50857271). Comments: 10/11/2023 7:25 Radha Siddiqui RN right [...] Oriented. Review / Management Laboratory Results Plan [place] [employer]#(ASA) physical status classification: Class [...] on: 10/11/2023 09:23 EST] Sheryl Dennis DO [facility] BF Cell Cnton 10-11-2023 Appear BF Cloudy [facility] Comment on above: Order Comment: right knee fluid Performed By: #### 6 485698 #### [facility] (DEFAULT) [address] [place] [address] Cell Cnt BF Type Synovial Fl [facility] Comment on above: Order Comment: right knee fluid Performed By: #### 6 391655 #### [facility] (DEFAULT) [address] [place] [address] Color BF Red [facility] Comment on above: Order Comment: right knee fluid Performed By: #### 6 518097 #### [facility] (DEFAULT) [address] [place] [address] RBC BF 127068 Invalid Interpretation Code [facility] Comment on above: Order Comment: right knee fluid Performed By: #### 6 159358 #### [facility] (DEFAULT) [address] [place] [address] [place] [address] Invalid Interpretation Code [facility] Comment on above: Order Comment: right knee fluid Performed By: #### 6 214834 #### [facility] (DEFAULT) [address] [place] [address] 50677 BMP Standardon 10-11-2023 Breakpoint Chem Normal [facility] Comment on above: Performed By: #### 2 532811, 0603516470, 34321733, 8998009212, 7826392083, 8168704525, 6867931451, 4257161 ####[facility] (DEFAULT)[address] [place] [address] 21454 eGFR Non AA 57 mL/min/1.73m2 Invalid Interpretation Code [facility] Comment on above: Performed By: #### 2 759619, 9750390736, 75742019, 3777207967, 3182675473, 3648287139, 1453388657, 7425219 ####[facility] (DEFAULT)[address] [place] [address] 39995 eGFR AA >60 Invalid Interpretation Code [facility] Comment on above: Performed By: #### 2 038747, [id number], [id number], [id number], [id number], [id number], [id number], 9460589 ####[facility] (DEFAULT)[address] [place] [address] 37307 Anion gap [Moles/Vol] 13.6 mmol/L Normal 5.0-19.0 [facility] Comment on above: Performed By: #### 2 095777, [id number], [id number], [id number], [id number], [id number], [id number], 2593616 ####[facility] (DEFAULT)[address] [place] [address] 34991 Calcium [Mass/Vol] 9.6 mg/dL Normal 8.9-10.3 [facility] Comment on above: Performed By: #### 2 247557, [id number], 99847620, 1339557918, [id number], 8085361460, [id number], 9513179 ####[facility] (DEFAULT)[address] [place] [address] 12486 Chloride [Moles/Vol] 102 mmol/L Normal 101-111 [facility] Comment on above: Performed By: #### 2 155835, [id number], 36048115, 9896142850, 8406591275, 1533898270, [id number], 9934610 ####[facility] (DEFAULT)[address] [place] [address] 19126 CO2 [Moles/Vol] 25 mmol/L Normal 21-32 [facility] Comment on above: Performed By: #### 2 305049, [id number], 48743501, 6576120463, 2013417265, 9962505746, 8004569396, 0356003 ####[facility] (DEFAULT)[address] [place] [address] 46813 Creatinine [Mass/Vol] 0.93 mg/dL Normal 0.60-1.30 [facility] Comment on above: Performed By: #### 2 408147, [id number], [id number], [id number], [id number], [id number], [id number], 7327857 ####[facility] (DEFAULT)[address] [place] [address] 78109 Glucose [Mass/Vol] 114.0 mg/dL Normal 74.0-118.0 [facility] Comment on above: Performed By: #### 2 543652, [id number], 95742965, [id number], 1468710981, [id number], 2940901117, 3198015 ####[facility] (DEFAULT)[address] [place] [address] 90500 Osmolality 279 mOsm/L Invalid Interpretation Code [facility] Comment on above: Performed By: #### 2 685000, [id number], [id number], 1206845960, [id number], 2524770742, 5893836975, 0063565 ####[facility] (DEFAULT)[address] [place] [address] 09970 Potassium [Moles/Vol] 4.6 mmol/L Normal 3.6-5.1 [facility] Comment on above: Performed By: #### 2 809779, [id number], 88302912, 4038428112, 2579752462, 1453213257, 0898984767, 6781876 ####[facility] (DEFAULT)[address] [place] [address] 14063 Sodium [Moles/Vol] 136.0 mmol/L Normal 136.0-144.0 [facility] Comment on above: Performed By: #### 2 367173, [id number], 12988297, 6342185825, 7557993236, 2762560030, 8629165143, 5025356 ####[facility] (DEFAULT)[address] [place] [address] 36810 Urea nitrogen [Mass/Vol] 30 mg/dL High 8-26 [facility] Comment on above: Performed By: #### 2 540026, [id number], 13375171, 8991169248, 0952672304, 7303775536, 1648968407, 3018087 ####[facility] (DEFAULT)[address] [place] [address] 56427 Urea nitrogen/Creatinin e [Mass ratio] 32.2 mg/mg High 4.6-16.2 [facility] Comment on above: Performed By: #### 2 391144, [id number], 57345969, 8442105840, 4781448531, 5798362162, 0601010838, 4546312 ####[facility] (DEFAULT)[address] [place] [address] 19874 Body Fluid Diffon 10-11-2023 BF Bands % 2 Invalid Interpretation Code [facility] Comment on above: Order Comment: Right knee fluidVerbal order per Kelly Long Performed By: #### 2 [id number] ####[facility] (DEFAULT)[address] [place] [address] BF Baso % 0 Invalid Interpretation Code [facility] Comment on above: Order Comment: Right knee fluidVerbal order per Kelly Long Performed By: #### 2 [id number] ####[facility] (DEFAULT)[address] [place] [address] BF Eos % 0 Invalid Interpretation Code [facility] Comment on above: Order Comment: Right knee fluidVerbal order per Kelly Long Performed By: #### 2 [id number] ####[facility] (DEFAULT)[address] [place] [address] BF Lymph % 5 Invalid Interpretation Code [facility] Comment on above: Order Comment: Right knee fluidVerbal order per Kelly Long Performed By: #### 2 [id number] ####[facility] (DEFAULT)[address] [place] [address] BF [place] % 0 Invalid Interpretation Code [facility] Comment on above: Order Comment: Right knee fluidVerbal order per Kelly Long Performed By: #### 2 [id number] ####[facility] (DEFAULT)[address] [place] [address] BF Segs % 93 Invalid Interpretation Code [facility] Comment on above: Order Comment: Right knee fluidVerbal order per Kelly Long Performed By: #### 2 [id number] ####[facility] (DEFAULT)[address] [place] [address] CBC w/ Auto Diffon 3 Erythrocyte distribution width (RBC) [Ratio] 15.3 % High 11.5-15.0 [facility] Comment on above: Performed By: #### 2 798824, [id number], 68747312, 8647319786, 6804860131, 0718710911, 7849833412, 6699023 ####[facility] (DEFAULT)[address] [place] [address] Hematocrit (Bld) [Volume fraction] 36.1 % Normal 33.7-40.4 [facility] Comment on above: Performed By: #### 2 772532, 4713104108, 21017957, 4276256818, 5070207735, 2138968907, 7470555032, 1494132 ####[facility] (DEFAULT)[address] [place] [address] Hemoglobin (Bld) [Mass/Vol] 11.8 g/dL Normal 11.3-15.9 [facility] Comment on above: Performed By: #### 2 271498, 3426787005, 08477218, 8468198156, 9995889842, 5129298234, 4264405960, 1582225 ####[facility] (DEFAULT)[address] [place] [address] Man Diff? Auto Invalid Interpretation Code [facility] Comment on above: Performed By: #### 2 228558, 8015794939, 16640334, 8409158762, 1270369723, 2718989279, 9152510924, 9452653 ####[facility] (DEFAULT)[address] [place] [address] MCH (RBC) [Entitic mass] 29 pg Normal 24-34 [facility] Comment on above: Performed By: #### 2 797403, 5207225999, 69877643, 5411404903, 0658756621, 0829339581, 7189038815, 6500946 ####[facility] (DEFAULT)[address] [place] [address] MCHC (RBC) [Mass/Vol] 33 g/dL Normal 26-37 [facility] Comment on above: Performed By: #### 2 411275, 1354943117, 84211091, 8452151427, 3645319701, 5185392655, 2374766161, 7491468 ####[facility] (DEFAULT)[address] [place], [place] [address] MCV (RBC) [Entitic vol] 89 fL Normal 81-100 [facility] Comment on above: Performed By: #### 2 113674, 3121776835, 03990092, 6733131848, 8016622705, 0015554188, 2174994874, 8471077 ####[facility] (DEFAULT)[address] [place] [address] 52254 Platelet 492 x10 High 138-427 [facility] Comment on above: Performed By: #### 2 737068, 1262399300, 83370153, 4223355777, 3219164053, 4178906658, 3782289202, 7777630 ####[facility] (DEFAULT)[address] [place] [address] 08412 Platelet mean volume (Bld) [Entitic vol] 6.2 fL Low 6.3-10.2 [facility] Comment on above: Performed By: #### 2 011118, 1039419238, 21054282, 6885569832, 9419617778, 3141154073, 2768787393, 6981231 ####[facility] (DEFAULT)[address] [place] [address] 84121 RBC 4.05 x10 Normal 3.70-5.30 [facility] Comment on above: Performed By: #### 2 696868, 6635093058, 80798843, 9843893819, 6379120472, 1863643158, 8169846380, 5535990 ####[facility] (DEFAULT)[address] [place] [address] 97413 WBC 16.0 x10 High 3.5-10.5 [facility] Comment on above: Result Comment: Slid e Reviewed Performed By: #### 2 363265, [id number], 58967977, 6027724268, 9467624393, 9520747702, 2932691444, 3447261 ####[facility] (DEFAULT)[address] [place] [address] 75129 CRPon 10-11-2023 CRP 6.1 mg/dL High <=0.5 [facility] Comment on above: Performed By: #### 2 [id number] ####[facility] (DEFAULT)[address] [place] [address] Lower Extremity w/ Contra st Righton [...] MD 10/11/23 4:31 pm Technologist: Jeanette LUKE [facility] Extra SSTon 10-11-2023 Tube Collected Yes Invalid Interpretation Code [facility] Comment on above: Performed By: #### 2 921716, 1802851251, 16973942, 4159019510, 5094441501, 4598022366, 6423047636, 6465176 ####[facility] (DEFAULT)[address] [place] [address] MAGR Intraoperative Recordon 10-11-2023 MAGR Intraoperative Record MAGR Intra-Op Record Summary Primary Physician: JOB AGUILAR DO Finalized Date/Time: 10/11/23 14:40:54 Pt. Name: MARGARTEALICIA FARIAS/Sex: 1940 FEMALE Med Rec #: [id number] Physician: JOB AGUILAR DO Financial #: [id number] Pt. Type: I Room/Bed: [facility] Admit/Disch: 10/11/23 06:57:39 - Institution: Case Times [...] Role Performed Surgeon - Primary Anesthesiologist of City Carrier Record Time In 10/11/23 11:40:00 10/11/23 11:40:00 10/11/23 11:40:00 Time Out 10/11/23 12:48:00 10/11/23 12:53:00 10/11/23 12:53:00 Procedure Arthroscopy Knee(Right) Arthroscopy Knee(Right) Arthroscopy Knee(Right) Last Modified By: Sandra Shepard RN, Barbara RN Long, Barbara RN 10/11/23 12:55:35 10/11/23 12:55:35 10/11/23 12:55:35 Entry 4 Entry 5 Case Attendee Gloria Saldaña CST, CST, Lauren M CSFYessica CSFA Role Performed Scrub Personnel Machinist Outside Time In 10/11/23 11:40:00 10/11/23 11:40:00 Time [...] Sheryl Dennis DO, Long, Barbara RN, Piotr ORNAMENTAL METAL WORKER HELPER, Gloria MARTINEZ CSFA, Rina Muñoz CSFA Last [...] Met (O.80) Ye (more content not included)... [facility] MAGR PACU Record MAGR PACU Record [facility] Primary Physician: JOB AGUILAR DO Finalized Date/Time: 10/11/23 13:56:49 Pt. Name: ALICIA NGUYỄN/Sex: 1940 FEMALE Med Rec #: [id number] Physician: JOB AGUILAR DO Financial #: [id number] Pt. Type: D Room/Bed: [facility]/1 Admit/Disch: 10/11/23 06:57:39 - Institution: PACU Case Times MAGR Entry 1 In PACU I 10/11/23 12:55:00 Discharge from PACU 10/11/23 13:40:00 I Last Modified By: Radha Seo RN 10/11/23 13:56:45 Finalized By: Radha Seo RN Document Signatures Signed By: Radha Seo RN 10/11/23 13:56 [facility]ordon 1 12-12-2022 MAGR Preoperative Record MAGR Pre-Op Record Summary Primary Physician: JOB AGUILAR DO Finalized Date/Time: 10/11/23 12:17:03 Pt. Name: ALICIA NGUYỄN/Sex: 1940 FEMALE Med Rec #: [id number] Physician: JOB AGUILAR DO Financial #: [id number] Pt. Type: D Room/Bed: / Admit/Disch: 10/11/23 [...] Signed By: Sandra Shepard RN 10/11/23 12:[address] [facility] Pharmacy Noteon 10-11-2023 Pharmacy Note The [...] on: 10/13/2023 09:39 EST] Jamal Butler Normal [facility] Sed Rateon 10-11-2023 Sed Rate 80 mm/hr High 0-20 [facility] Comment on above: Performed By: #### 2 013304, [id number], 96910906, 0020340540, 9284693463, 2099953971, 7649871895, 9692765 ####[facility] (DEFAULT)[address] [place] [address] CREATININEon 04-04-2023 Creatinine [Mass/Vol] 1.25 mg/dL Critically high 0.55-1.02 [facility] Comment on above: Performed By: #### C HEIDI #### [facility] [address] [address] [address] Lolita Alvarado EGFR-AF SAMMARINESE 49 mL/min/1.73m2 Critically low >=60 [facility] Comment on above: Performed By: #### C HEIDI #### [facility] [address] [address] [address] Lolita Alvarado EGFR-NON AF SAMMARINESE 41 mL/min/1.73m2 Critically low >=60 [facility] Comment on above: Performed By: #### C HEIDI #### [facility] [address] [address] CHEST W CONon [...] by: RIGO WHITTAKER Date: 2023-04-04 16:[address] [facility] [address] CHEST W CONon 12-26-2022 CT CHEST [...] by: RIGO WHITTAKER Date: 2022-12-26 09:16 Normal [facility] CREATININEon 12-23-2022 Creatinine [Mass/Vol] 0.85 mg/dL Normal 0.55-1.02 [facility] Comment on above: Performed By: #### C HEIDI #### [facility] [address] [address] [address] Lolita Alvarado EGFR-AF SAMMARINESE >60 Normal >=60 [facility] Comment on above: Performed By: #### C HEIDI #### [facility] [address] [place], [place] [address] Dr. Lolita Alvarado EGFR-NON AF SAMMARINESE >60 Normal >=60 [facility] Comment on above: Performed By: #### C HEIDI #### [facility] [address] [place], [place] [address] Dr. Lolita Alvarado Glucose Glucometer (BldC) [M ass/Vol]Ordered By: Santiago Otto on 11-01-2022 Glucose [Mass/Vol] 97 mg/dL [facility] Comment on above: Random Glucose Refer ence Range is dependent on time and content of last meal. Glucose of more than 200 mg/dL in a nonstressed, ambulatory subject supports the diagnosis of Diabetes Mellitus. Glucose Poct Glucometerson 1 01-02-2022 Glucose [Mass/Vol] 97 mg/dL Normal [facility] Comment on above: Result Comment: [place] om Glucose Reference Range is dependent on time and content of last meal. Glucose of more than 200 mg/dL in a nonstressed, ambulatory subject supports the diagnosis of Diabetes Mellitus. PERFORMED BY: [place] [address] PATHOLOGIST BOX BENDER NEW MEDEIROS M.D. Performed By: #### G LUJOLIE #### Point of Care testing , PET tumor init tx strat sb-m ton 11-01-2022 PET tumor init tx strat sb-mt [place] [facility] [address] [place] [address] Nuclear Medicine Report Signed Patient: Alicia Nguyễn MR#: [id number] : 1940 Acct:[id number] Age/Sex: 82 / F ADM Date: 11/01/22 Loc: Room: Type: [facility] Attending Dr: Santiago Otto MD Copies [...] Candi Leigh M.D.11/01/2022 1:32 PM Dictation Location: [place] [address] Transcribed By: [facility] 11/01/22 1332 Dictated By: Candi Leigh MD 11/01/22 1300 Signed By: 11/01/22 1332 Normal [facility] CT CHEST W CONon 10-24-2022 CT CHEST [...] RIGO WHITTAKER Date: 2022-10-23 22:21 Normal [facility] CREATININEon 10-23-2022 Creatinine [Mass/Vol] 1.08 mg/dL Critically high 0.55-1.02 [facility] Comment on above: Performed By: #### C HEIDI #### [facility] [address] [place], [place] [address] Dr. Lolita Alvarado EGFR-AF SAMMARINESE 59 mL/min/1.73m2 Critically low >=60 [facility] Comment on above: Performed By: #### C HEIDI #### [facility] [address] [place], [place] [address] Dr. Lolita Alvarado EGFR-NON AF SAMMARINESE 48 mL/min/1.73m2 Critically low >=60 [facility] Comment on above: Performed By: #### C HEIDI #### [facility] [address] [facility] WO CONon 2 CT TSPINE WO CON [...] spine. 3. No acute abnormality. Normal [facility] General Surgery Office/Clini c Noteon 09-18-2022 [...] Cirrhosis of liver: Father. Heart disease: Mother. [facility] Comment on above: Result Comment: Elec [...] by: SHERYL SRINIVASAN Date: 2022-09-13 08:21 Normal [facility] Ambulatory Visit Summaryon 1 Ambulatory Visit Summary [...] Varicose veins of legs Venous insufficiency Normal [facility] Pathology Noteon 08-18-2022 Pathology Note [id number]:127 Normal [facility] Outside Colonoscopyon 2021 Outside Colonoscopy [id number]:127 Normal [facility] US NOLBERTO DOP LEG RTon 08-10-20 [...] by: BRAD GONZALEZ Date: 2022-08-10 15:05 Normal [facility] Lab Reportson 08-03-2022 Lab Reports [id number]:127 Normal [facility] CBC AUTO DIFFon 08-02-2022 BASO # 0.0 103/ul Normal 0.0-0.1 [facility] Comment on above: Performed By: #### C BC #### [facility] [address] [place] [address] Dr. Lolita Alvarado Basophils/100 WBC (Bld) 0.3 % Normal 0.2-2.0 [facility] Comment on above: Performed By: #### C BC #### [facility] [address] [place] [address] Dr. Lolita Alvarado EO # 0.0 103/ul Normal 0.0-0.7 [facility] Comment on above: Performed By: #### C BC #### [facility] [address] [place] [address] Dr. Lolita Alvarado Eosinophils/100 WBC (Bld) 0.3 % Critically low 0.9-7.0 [facility] Comment on above: Performed By: #### C BC #### [facility] [address] [place] [address] Dr. Lolita Alvarado Erythrocyte distribution width (RBC) [Ratio] 13.3 % Normal 11.0-15.0 [facility] Comment on above: Performed By: #### C BC #### [facility] [address] [place] [address] Dr. Lolita Alvarado Hematocrit (Bld) [Volume fraction] 34.6 % Critically low 36.0-48.0 [facility] Comment on above: Performed By: #### C BC #### [facility] [address] [place] [address] Dr. Lolita Alvarado Hemoglobin (Bld) [Mass/Vol] 11.4 g/dL Critically low 12.0-16.0 [facility] Comment on above: Performed By: #### C BC #### [facility] [address] [place] [address] Dr. Lolita Alvarado IG # 0.04 10e3/ul Critically high 0.00-0.03 [facility] Comment on above: Performed By: #### C BC #### [facility] [address] [place] [address] Dr. Lolita Alvarado IG % 1.0 % Critically high 0.0-0.5 [facility] Comment on above: Performed By: #### C BC #### [facility] [address] [place] [address] Dr. Lolita Alvarado LYMPH # 1.2 103/ul Normal 1.2-3.8 [facility] Comment on above: Performed By: #### C BC #### [facility] [address] [place] [address] Dr. Lolita Alvarado Lymphocytes/100 WBC (Bld) 30.9 % Normal 20.5-60.0 [facility] Comment on above: Performed By: #### C BC #### [facility] [address] [place] [address] Dr. Lolita Alvarado MANUAL DIFF REQ NO Normal [facility] Comment on above: Performed By: #### C BC #### [facility] [address] [place] [address] Dr. Lolita Alvarado MCH (RBC) [Entitic mass] 31.0 pg Normal 26.7-34.0 [facility] Comment on above: Performed By: #### C BC #### [facility] [address] [place] [address] Dr. Lolita Alvarado MCHC (RBC) [Mass/Vol] 32.9 g/dL Normal 29.9-35.2 [facility] Comment on above: Performed By: #### C BC #### [facility] [address] [place] [address] Dr. Lolita Alvarado MCV (RBC) [Entitic vol] 94.0 fL Normal 81.0-99.0 [facility] Comment on above: Performed By: #### C BC #### [facility] [address] [place] [address] Dr. Lolita Alvarado MONO # 0.4 103/ul Normal 0.3-0.8 [facility] Comment on above: Performed By: #### C BC #### [facility] [address] [place] [address] Dr. Lolita Alvarado Monocytes/100 WBC (Bld) 10.6 % Normal 1.7-12.0 [facility] Comment on above: Performed By: #### C BC #### [facility] [address] [place] [address] Dr. Lolita Alvarado NEUT # 2.2 103/ul Normal 1.4-6.5 [facility] Comment on above: Performed By: #### C BC #### [facility] [address] [place] [address] Dr. Lolita Alvarado Neutrophils/100 WBC (Bld) 56.9 % Normal 43.0-75.0 [facility] Comment on above: Performed By: #### C BC #### [facility] [address] [place] [address] Dr. Lolita Alvarado Platelet mean volume (Bld) [Entitic vol] 8.1 fL Critically low 9.5-13.5 [facility] Comment on above: Performed By: #### C BC #### [facility] [address] [place] [address] Dr. Lolita Alvarado PLT 226 103/ul Normal 150-450 [facility] Comment on above: Performed By: #### C BC #### [facility] [address] [place] [address] Dr. Lolita Alvarado RBC 3.68 106/ul Critically low 4.20-5.40 [facility] Comment on above: Performed By: #### C BC #### [facility] [address] [place] [address] Dr. Lolita Alvarado WBC 3.9 103/ul Critically low 4.0-11.0 [facility] Comment on above: Performed By: #### C BC #### [facility] [address] [place] [address] Dr. Lolita Alvarado [facility]on 06-07 SARS-CoV-2 (COVID-19) RNA EDWIN+probe Ql (Unsp spec) Detected Critically abnormal NOT DETECTED [facility] Comment on above: Result Comment: This test is not yet approved or cleared by the [place] FDA. When there are no FDA-approved or cleared tests available, and other criteria are met, FDA can make tests available under an emergency access mechanism called an Emergency Use Authorization (EUA). The EUA for this test is supported by the [employer] of Health and Human Service's (HHS's) declaration [...] used). Performed By: #### C BC #### [facility] [address] [address] [address] Lolita Alvarado Consent for Procedure/Surger yon 06-15-2022 Consent for Procedure/Surgery [id number]:127 Normal [facility] Ambulatory Visit Summaryon 0 06-13-2022 Ambulatory [...] Varicose veins of legs Venous insufficiency Normal [facility] CBC AUTO DIFFon 06-02-2022 BASO # 0.0 103/ul Normal 0.0-0.1 [facility] Comment on above: Performed By: #### C BC #### [facility] [address] [place] [address] [address] Lolita Alvarado Basophils/100 WBC (Bld) 0.4 % Normal 0.2-2.0 [facility] Comment on above: Performed By: #### C BC #### [facility] [address] [place] [address] [address] Lolita Alvarado EO # 0.0 103/ul Normal 0.0-0.7 [facility] Comment on above: Performed By: #### C BC #### [facility] [address] [place] [address] [address] Lolita Alvarado Eosinophils/100 WBC (Bld) 0.2 % Critically low 0.9-7.0 [facility] Comment on above: Performed By: #### C BC #### [facility] [address] [place] [address] [address] Lolita Alvarado Erythrocyte distribution width (RBC) [Ratio] 12.8 % Normal 11.0-15.0 [facility] Comment on above: Performed By: #### C BC #### [facility] [address] [place] [address] Dr. Lolita Alvarado Hematocrit (Bld) [Volume fraction] 30.1 % Critically low 36.0-48.0 [facility] Comment on above: Performed By: #### C BC #### [facility] [address] [place] [address] Dr. Lolita Alvarado Hemoglobin (Bld) [Mass/Vol] 10.3 g/dL Critically low 12.0-16.0 [facility] Comment on above: Performed By: #### C BC #### [facility] [address] [place] [address] Dr. Lolita Alvarado IG # 0.02 10e3/ul Normal 0.00-0.03 [facility] Comment on above: Performed By: #### C BC #### [facility] [address] [place] [address] Dr. Lolita Alvarado IG % 0.4 % Normal 0.0-0.5 [facility] Comment on above: Performed By: #### C BC #### [facility] [address] [place] [address] Dr. Lolita Alvarado LYMPH # 0.7 103/ul Critically low 1.2-3.8 [facility] Comment on above: Performed By: #### C BC #### [facility] [address] [place] [address] Dr. Lolita Alvarado Lymphocytes/100 WBC (Bld) 14.9 % Critically low 20.5-60.0 [facility] Comment on above: Performed By: #### C BC #### [facility] [address] [place] [address] Dr. Lolita Alvarado MANUAL DIFF REQ NO Normal [facility] Comment on above: Performed By: #### C BC #### [facility] [address] [place] [address] Dr. Lolita Alvarado MCH (RBC) [Entitic mass] 33.6 pg Normal 26.7-34.0 [facility] Comment on above: Performed By: #### C BC #### [facility] [address] [place] [address] Dr. Lolita Alvarado MCHC (RBC) [Mass/Vol] 34.2 g/dL Normal 29.9-35.2 [facility] Comment on above: Performed By: #### C BC #### [facility] [address] [address] [address] Lolita Alvarado MCV (RBC) [Entitic vol] 98.0 fL Normal 81.0-99.0 [facility] Comment on above: Performed By: #### C BC #### [facility] [address] [place] [address] [address] Lolita Alvarado MONO # 0.4 103/ul Normal 0.3-0.8 [facility] Comment on above: Performed By: #### C BC #### [facility] [address] [address] [address] Lolita Alvarado Monocytes/100 WBC (Bld) 9.0 % Normal 1.7-12.0 [facility] Comment on above: Performed By: #### C BC #### [facility] [address] [address] [address] Lolita Alvarado NEUT # 3.4 103/ul Normal 1.4-6.5 [facility] Comment on above: Performed By: #### C BC #### [facility] [address] [address] [address] Lolita Alvarado Neutrophils/100 WBC (Bld) 75.1 % Critically high 43.0-75.0 [facility] Comment on above: Performed By: #### C BC #### [facility] [address] [address] [address] Lolita Alvarado Platelet mean volume (Bld) [Entitic vol] 8.5 fL Critically low 9.5-13.5 [facility] Comment on above: Performed By: #### C BC #### [facility] [address] [address] [address] Lolita Alvarado PLT 229 103/ul Normal 150-450 [facility] Comment on above: Performed By: #### C BC #### [facility] [address] [address] [address] Lolita Alvarado RBC 3.07 106/ul Critically low 4.20-5.40 [facility] Comment on above: Performed By: #### C BC #### [facility] [address] [place] [address] Dr. Lolita Alvarado WBC 4.6 103/ul Normal 4.0-11.0 [facility] Comment on above: Performed By: #### C BC #### [facility] [address] [place] [address] Dr. Lolita Alvarado Physician Referralon 022 Physician Referral [id number] Normal [facility] CBC AUTO DIFFon 06-01-2022 BASO # 0.0 103/ul Normal 0.0-0.1 [facility] Comment on above: Performed By: #### C BC #### [facility] [address] [place] [address] Dr. Lolita Alvarado Basophils/100 WBC (Bld) 0.7 % Normal 0.2-2.0 [facility] Comment on above: Performed By: #### C BC #### [facility] [address] [place] [address] Dr. Lolita Alvarado EO # 0.2 103/ul Normal 0.0-0.7 [facility] Comment on above: Performed By: #### C BC #### [facility] [address] [place] [address] Dr. Lolita Alvarado Eosinophils/100 WBC (Bld) 3.7 % Normal 0.9-7.0 [facility] Comment on above: Performed By: #### C BC #### [facility] [address] [place] [address] Dr. Lolita Alvarado Erythrocyte distribution width (RBC) [Ratio] 13.0 % Normal 11.0-15.0 [facility] Comment on above: Performed By: #### C BC #### [facility] [address] [place] [address] Dr. Lolita Alvarado Hematocrit (Bld) [Volume fraction] 32.2 % Critically low 36.0-48.0 [facility] Comment on above: Performed By: #### C BC #### [facility] [address] [place] [address] Dr. Lolita Alvarado Hemoglobin (Bld) [Mass/Vol] 10.6 g/dL Critically low 12.0-16.0 [facility] Comment on above: Performed By: #### C BC #### [facility] [address] [place] [address] Dr. Lolita Alvarado IG # 0.02 10e3/ul Normal 0.00-0.03 [facility] Comment on above: Performed By: #### C BC #### [facility] [address] [place] [address] Dr. Lolita Alvarado IG % 0.5 % Normal 0.0-0.5 [facility] Comment on above: Performed By: #### C BC #### [facility] [address] [place] [address] Dr. Lolita Alvarado LYMPH # 1.4 103/ul Normal 1.2-3.8 [facility] Comment on above: Performed By: #### C BC #### [facility] [address] [place] [address] Dr. Lolita Alvarado Lymphocytes/100 WBC (Bld) 32.4 % Normal 20.5-60.0 [facility] Comment on above: Performed By: #### C BC #### [facility] [address] [place] [address] Dr. Lolita Alvarado MANUAL DIFF REQ NO Normal [facility] Comment on above: Performed By: #### C BC #### [facility] [address] [place] [address] Dr. Lolita Alvarado MCH (RBC) [Entitic mass] 32.1 pg Normal 26.7-34.0 [facility] Comment on above: Performed By: #### C BC #### [facility] [address] [place] [address] Dr. Lolita Alvarado MCHC (RBC) [Mass/Vol] 32.9 g/dL Normal 29.9-35.2 [facility] Comment on above: Performed By: #### C BC #### [facility] [address] [place] [address] Dr. Lolita Alvarado MCV (RBC) [Entitic vol] 97.6 fL Normal 81.0-99.0 [facility] Comment on above: Performed By: #### C BC #### [facility] [address] [place] [address] Dr. Lolita Alvarado MONO # 0.6 103/ul Normal 0.3-0.8 [facility] Comment on above: Performed By: #### C BC #### [facility] [address] [place] [address] Dr. Lolita Alvarado Monocytes/100 WBC (Bld) 14.0 % Critically high 1.7-12.0 [facility] Comment on above: Performed By: #### C BC #### [facility] [address] [place] [address] Dr. Lolita Alvarado NEUT # 2.1 103/ul Normal 1.4-6.5 [facility] Comment on above: Performed By: #### C BC #### [facility] [address] [place] [address] Dr. Loilta Alvarado Neutrophils/100 WBC (Bld) 48.7 % Normal 43.0-75.0 [facility] Comment on above: Performed By: #### C BC #### [facility] [address] [place] [address] Dr. Lolita Alvarado Platelet mean volume (Bld) [Entitic vol] 8.2 fL Critically low 9.5-13.5 [facility] Comment on above: Performed By: #### C BC #### [facility] [address] [place] [address] Dr. Lolita Alvarado PLT 216 103/ul Normal 150-450 [facility] Comment on above: Performed By: #### C BC #### [facility] [address] [place] [address] Dr. Lolita Alvarado RBC 3.30 106/ul Critically low 4.20-5.40 [facility] Comment on above: Performed By: #### C BC #### [facility] [address] [place] [address] Dr. Lolita Alvarado WBC 4.3 103/ul Normal 4.0-11.0 [facility] Comment on above: Performed By: #### C BC #### [facility] [address] [place] [address] Dr. Lolita Alvarado OCC BLD IMMUNOASSAYon 2021 OCCULT BLOOD Positive Abnormal NEGATIVE [facility] Comment on above: Performed By: #### O ELADIO #### [facility] [address] [place] [address] Dr. Lolita Alvarado PROTIMEon 06-01-2022 INR Coag (PPP) [Relative time] 1.62 {INR} Normal [facility] Comment on above: Performed By: #### P T, PTT #### [facility] [address] [place] [address] Dr. Lolita Alvarado INR GUIDELINES SEE BELOW Normal [facility] Comment on above: Result Comment: TOSHA RED INR: 2.0 - 3.0 CONDITIONS NOT LISTED BELOW 2.5 - 3.5 FOR PROSTHETIC HEART VALVE REPLACEMENT 2.5 - 3.5 RECURRENT THROMBOSIS Performed By: #### P T, PTT #### [facility] [address] [place] [address] Dr. Lolita Alvarado PT Coag (PPP) [Time] 17.0 s Critically high 9.0-11.6 [facility] Comment on above: Performed By: #### P T, PTT #### [facility] [address] [place] [address] Dr. Lolita Alvarado PTTon 06-01-2022 aPTT Coag (Bld) [Time] 40.2 s Critically high 22.3-36.2 [facility] Comment on above: Performed By: #### P T, PTT #### [facility] [address] [place] [address] Dr. Lolita Alvarado [facility] 05-06 SARS-CoV-2 (COVID-19) RNA EDWIN+probe Ql (Unsp spec) Not detected Normal NOT DETECTED [facility] Comment on above: Result Comment: This test is not yet approved or cleared by the [place] FDA. When there are no FDA-approved or cleared tests available, and other criteria are met, FDA can make tests available under an emergency access mechanism called an Emergency Use Authorization (EUA). The EUA for this test is supported by the [place] of Health and Human Service's (HHS's) declaration [...] consistent with SARS-CoV-2. Performed By: #### C [facility] #### [facility] [address] [place] [address] Dr. Lolita Alvarado US NOLBERTO DOP LEG [...] by: SHERYL SRINIVASAN Date: 2022-05-25 16:09 Normal [facility] US NOLBERTO DOP LEG LTon 04-28-20 US [...] and mid calf. 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 The remaining deep venous structures are patent. 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 This finding was placed in the stat call folder. 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 Electronically authenticated by: CHUCK TATUM Date: 2022-04-28 19:31 Normal [facility] POINT OF CARE GLUCOSEon 04-06 Glucose [Mass/Vol] 86 mg/dL Normal 74-106 [facility] Comment on above: Performed By: #### C BC #### [facility] [address] [place] [address] Dr. Lolita Alvarado Encounters Encounter Date Encounter Type Care Provider Facility Start: 11-16-2023 End: 11-16-2023 ambulatory JAMAL VIZCARRA Not Available Start: 10-26-2023 End: 10-26-2023 ambulatory JAMAL VIZCARRA Not Available Start: 10-11-2023 End: 10-16-2023 Evaluation and management of inpatient Brando Garcia Facility:[facility] Start: 10-10-2023 End: 10-10-2023 ambulatory JOB [...] Start: 11-01-2022 End: 11-01-2022 ambulatory Santiago Otto Facility:[facility] Start: 11-01-2022 End: 11-01-2022 ambulatory MD Santiago Otto Work Phone: [facility] Work Phone: Start: 11-01-2022 End: 11-01-2022 Patient encounter procedure MD Santiago Otto Work Phone: [facility] Work Phone: Start: 10-23-2022 End: 10-24-[address] SANTIAGO OTTO . Facility:[facility] Start: 10-16-2022 End: 10-17-2022 ambulatory RACHANA KENT Facility:[facility] Start: 10-11-2022 End: 10-11-2022 amb[address] Other [facility] [employer] Other Start: 10-11-2022 Telephone encounter Rachana Kent F [facility] Neuro[facility] Start: 09-12-2022 End: 09-13-[address] SANTIAGO OTTO . Facility: Start: 08-29-2022 End: 08-30-2022 ambulatory Arie BERGERON Facility:[facility] Start: 08-29-2022 End: 08-29-2022 Patient encounter procedure Arie BERGERON General Surgery [facility] Start: 08-22-2022 End: 08-23-2022 ambulatory BRAD CALDWELL Facility:[facility] Start: 08-16-2022 End: 08-17-2022 ambulatory Arie BERGERON Facility:[id number] Start: 08-12-[address] ARIE BERGERON . Facil ity:[facility] Start: 08-10-2022 End: 08-11-[address] SANTIAGO OTTO . Facility:[facility] Start: 08-10-2022 Encounter for other preprocedural examination DR ARIE BERGERON . [facility] Start: 08-08-2022 End: 08-09-[address] [...] 06-13-2022 End: 06-14-2022 [facility] Start: 06-02-2022 ambulatory [facility] R EFRAIN [facility] Start: 06-02-2022 End: 06-03-[address] SANTIAGO [...] NILL Payers Date Payer Category Payer Unknown [id number] 1961 Medicare [id number] 1961 Self-pay 1959 Unknown [id number] 1940 Unknown [id number] 2.16.8 40.1.419127.3.579.2.727 1938 Unknown [id number] 2.16.8 40.1.687576.3.579.2.727 1938 Unknown [id number] 2.16.8 40.1.269318.3.579.2.727 1938 Unknown [id number] 2.16.8 40.1.853246.3.579.2.727 1938 Unknown [id number] 2.16.84 0.1.137518.3.579.2.593 1938 Unknown [id number] 2.16.84 0.1.829294.3.579.2.593 1938 Unknown [id number] 2.16.84 0.1.762942.3.579.2.593 1938 Unknown [id number] 2.16.84 0.1.436144.3.579.2.593 1938 Unknown [id number] 2.16.84 0.1.390941.3.579.2.593 1938 Unknown [id number] 2.16.84 0.1.855415.3.579.2.593 1938 Unknown [id number] 2.16.84 0.1.854202.3.579.2.593 1938 Unknown [id number] 2.16.84 0.1.487966.3.579.2.593 1938 Unknown [id number] 2.16.84 0.1.735835.3.579.2.593 1938 Unknown [id number] 2.16.84 0.1.890070.3.579.2.593 1938 Unknown [id number] 2.16.84 0.1.497166.3.579.2.593 1938 Unknown [id number] 2.16.84 0.1.949369.3.579.2.593 1938 Unknown [id number] 2.16.84 0.1.147740.3.579.2.593 1938 Unknown [id number] 2.16.84 0.1.703566.3.579.2.593 1938 Unknown [id number] 2.16.84 0.1.558387.3.579.2.593 1938 Unknown [id number] 2.16.84 0.1.262127.3.579.2.593 1938 Unknown [id number] 2.16.84 0.1.232040.3.579.2.593 1938 Unknown [id number] 2.16.84 0.1.705063.3.579.2.593 1938 Unknown [id number] 2.16.84 0.1.409634.3.579.2.593 1938 Unknown [id number] 2.16.84 0.1.889237.3.579.2.593 1938 Unknown [id number] 2.16.84 0.1.319466.3.579.2.593 1938 Unknown [id number] 2.16.84 0.1.657666.3.579.2.593 1938 Unknown [id number] 2.16.84 0.1.270626.3.579.2.593 1938 Unknown [id number] 2.16.84 0.1.865645.3.579.2.593 1938 Unknown [id number] 2.16.84 0.1.308617.3.579.2.593 1938 Unknown [id number] 2.16.84 0.1.701224.3.579.2.593 1938 Unknown [id number] 2.16.84 0.1.262001.3.579.2.593 1938 Unknown [id number] 2.16.84 0.1.412887.3.579.2.593 1938 Unknown [id number] 2.16.8 40.1.793827.3.579.2.718 1938 Unknown [id number] 2.16.84 0.1.659598.3.579.2.1259 1938 Unknown [id number] 2.16.840 .1.132053.3.579.2.1259 1938 Unknown [id number] 2.16.840 .1.138743.3.579.2.1259 1938 Unknown [id number] 2.16.840 .1.364000.3.579.2.1259 1938 Unknown [id number] 2.16.840 .1.638416.3.579.2.1259 Medicare Medicare Outpatient [id number] Unknown [id number] 2.16.8 40.1.558461.3.579.2.531 Social History Date Type Detail Facility Start: 06-13-2022 Tobacco smoking status Never s moked tobacco (finding) [facility] [place] Tobacco smoking status Never [facility] [place] Sex Assigned At Female [facility] Start: 1940 Sex [facility]igned At Female [facility] Clinical Notes 06-01-2022 to 10-17-2023 Note Date & Type Note Facility 10-17-2023 Note [id number] E7#1.00[facility] 10-17-2023 Note [id number] D#1.00[facility] 10-17-2023 Note [id number]#1.00[facility] 10-16-2023 Note Education Materials POST OPERATIVE [...] #8 follow up in office with physician special education educational assistant Joe Vizcarra as scheduled #9 [facility] will be contacting you within the next 24 hours to set up home therapy visits #11 You have been given a prescription for [place], norco is narcotic, narcotics are addictive. If you feel you have problems with addiction please feel free to contact Dr. Aguilar, your family physician, or proceed to the nearest hospital's emergency services department. [facility] 10-16-2023 Note [facility] Clinical Discharge Summary PERSON INFORMATION Name ALICIA NGUYỄN Age 83 Years 1940 Sex FEMALE Language [place] Islander PCP SANTIAGO OTTO Marital Status Phone Med Service Med/Surg Acct# Arrival 10/11/2023 06:57:39 Visit Reason SURGERY - RIGHT KNEE SCOPE Acuity LOS 005 01:37 Address: [address] [place] [id number] Comment: PROVIDER INFORMATION VITALS INFORMATION Vital Sign [...] range between ( 1.3 and 2.9 ) [place] Abs#: 0.8 x103/mcL -- Normal range between ( 0.0 and 0.8 ) Auto Baso %: 0.2 % -- Normal range between ( 0.2 and 2.0 ) Auto [place] %: 9 % -- Normal range between [...] ( 32 and (more content not included)... [facility] 10-17-2022 Note PROCEDURE: XR SCAPUL A RT COMPARISON: None. HISTORY: Disorder of bone FINDINGS: BONES:No acute fracture or dislocation. Subchondral cystic changes of the greater tuberosity and humeral neck SOFT TISSUES:Negative. No visible soft tissue swelling. EFFUSION:None visible. OTHER: Aortic atherosclerosis IMPRESSION: No acute abnormality Electronically authenticated by: SHERYL SRINIVASAN Date: 2022-10-17 07:20 [facility] 08-16-2022 Note OPERATIVE NOTE OPERATION DATE: 08/16/2022 [...] good condition. CC: Santiago Otto M.D. [facility] 07-27-2022 Note CONSULTATION PROCEDURE DATE: 07/27/2022 [...] be followed up in the office. [facility] 07-27-2022 Note CONSULTATION CONSULTATION DATE: 07/27/2022 [...] agrees with the plan of care. [facility] 06-13-2022 Note Chief Complaint consultation for [...] Cirrhosis of liver: Father. Heart disease: Mother. [facility] Comment on above: Result Comment: Elec [...] Patient is in agreement to this. [facility] 06-01-2022 Note CONSULTATION PROCEDURE DATE: 06/01/2022 [...] and patient tolerated the procedure well. [facility] Evaluation + Plan note No data available for this section [facility] [place] Evaluation note No Information [place] [facility] Other Evaluation note No assessment information [facility] Work Phone: History general Narrative - Reported Type Medical History appendectomy Medical History Arthritis Medical History cataracts Medical History diabetes mallitus Medical History gall bladder disease Medical History hypertension Medical History thyroid disease Surgical History appendectomy Surgical History bladder suspension, unspecified Surgical History gall bladder Surgical History knee replacement Hospitalization History see surgical hx [facility] Discharge instructions No data available for this section [facility] [place] Progress note No data available for this section [facility] [place] Summary Purpose Family History No Family History [...] and content) DATE CREATED AUTHOR 09/18/2022 [facility] DATE CREATED AUTHOR AUTHOR'S ORGANIZ ATION 11/14/2022 [facility] DATE CREATED AUTHOR AUTHOR'S ORGANIZ ATION 04/13/2023 [facility] DATE CREATED AUTHOR AUTHOR'S ORGANIZ ATION 11/02/2023 [facility] DATE CREATED AUTHOR AUTHOR'S ORGANIZ ATION 11/17/2023 [facility] EPIC REASON FOR VISIT (unrecogniz [...] BE BASED ON THE PRIMARY CLINICAL RECORDS. [employer] provides no warranty or guarantee of the accuracy or completeness of information in this document.
[2023-12-08 10:54] LABS: Occult Blood Positive
[2023-12-08 12:58] LABS: C. Difficile PCR NEGATIVE (NEGATIVE)
[2023-12-12 17:07] LABS: Ova + Parasite Exam Final report (.)
== END 2023-12-08 09:57 | disposition home or self-care (01) ==
LOC: LAB 09:56
PROVIDERS: PCP Family Medicine; Visit Provider Family Medicine
DX: R19.7 Diarrhea, unspecified (principal); R53.1 Weakness; Z12.12 Encounter for screening for malignant neoplasm of rectum
CPT/HCPCS: 87045; 87046; 87177; 87209; 87427; 87493; G0328

== ENCOUNTER 2023-12-14 10:33 | Outpatient (OUT) | payer MEDICARE, SELFPAY ==
[2023-12-14 10:44] LABS: Basophils Absolute Auto 0.1 10^3/uL (0.0-0.1); Basophils Percent Auto 0.9 % (0.2-2.0); Eosinophils Absolute Auto 0.1 10^3/uL (0.0-0.7); Eosinophils Percent Auto 1.6 % (0.9-7.0); Hematocrit 33.5 % (36.0-48.0); Hemoglobin 10.5 g/dL (12.0-16.0); Immature Granulocytes Abs Auto 0.02 10^3/uL (0.00-0.03); Immature Granulocytes Pct Auto 0.4 % (0.0-0.5); Lymphocytes Absolute Auto 1.5 10^3/uL (1.2-3.8); Lymphocytes Percent Auto 26.7 % (20.5-60.0); Mean Corpuscular HGB Conc 31.3 g/dL (29.9-35.2); Mean Corpuscular Hemoglobin 29.1 pg (26.7-34.0); Mean Corpuscular Volume 92.8 fL (81.0-99.0); Mean Platelet Volume 8.3 fL (9.5-13.5); Monocytes Absolute Auto 0.8 10^3/uL (0.3-0.8); Neutrophils Absolute Auto 3.2 10^3/uL (1.4-6.5); Neutrophils Percent Auto 56.4 % (43.0-75.0); Platelet Count 190 10^3/uL (150-450); Red Blood Count 3.61 10^6/uL (4.20-5.40); Red Cell Distribution Width 14.6 % (11.0-15.0); White Blood Count 5.7 10^3/uL (4.0-11.0)
--- OUTSIDE RECORDS SUMMARY | 2023-12-14 10:51 | XMS_ITS | CCD ---
Author Name Unknown Address [address] [facility] [address] [place] [address] Organization [facility] Care Team Providers Care Photography Spotter Name Role Phone Santiago Otto Primary Care Physician [phone] Arie BERGERON Attending Unavailable Kelvin PROVIDERSantiago Referring Unavailabl e Arie BERGERON Attending Unavailable Arie BERGERON Attending Unavailable Arie BERGERON Attending Unavailable Rachana Kent Unavailable MD Santiago Otto Primary Care Provider [phone] MD Santiago Otto Attending Provider [phone] Santiago Otto Attending Santiago Boyer Primary Care Unavailable Santiago Otto Admitting Unavailable KELVIN ., DR HENDERSON Primary Care Unavailable HOY ., DR HENDERSON Attending Unavailable HOY ., DR HENDERSON Admitting Unavailable HOY ., DR HENDERSON Consulting Unavailable CRAIG, DR SHERYL Navarrete Consulting Unavailable ARROYO ., STARR Consulting Unavailable GARCIA ., DR IVANIA Ledezma Attending Unavailable HOY ., DR HENDERSON Primary Care Unavailable GARCIA ., DR IVANIA Ledezma Admitting Unavailable ARROYO ., STARR Consulting Unavailable GARCIA ., DR IVANIA Ledezma Admitting Unavailable GARCIA ., DR IVANIA Ledezma Attending Unavailable KELVIN ., DR HENDERSON Primary Care Unavailable HOY ., DR HENDERSON Consulting Unavailable HOY ., DR HENDERSON Admitting Unavailable HOY ., DR HENDERSON Attending Unavailable HOY ., DR HENDERSON Primary Care Unavailable CRAIG, DR SHERYL Navarrete Consulting Unavailable KELVIN ., DR HENDERSON Primary Care Unavailable HOAndres ., DR HENDERSON Attending Unavailable HOY ., DR HENDERSON Admitting Unavailable HOY ., DR HENDERSON Consulting Unavailable HALWILL .HORTENCIA Admitting Unavailable HALWILL .HORTENCIA Attending Unavailable HOY ., DR HENDERSON Primary Care Unavailable HALKER ., HORTENCIA Consulting Unavailable HALKER ., HORTENCIA Attending Unavailable HOY ., DR HENDERSON Primary Care Unavailable HALKER ., HORTENCIA Admitting Unavailable HOY ., DR HENDERSON Primary Care Unavailable SANTOSFARIDA Attending Unavailable SANTOSFARIDA TOURE Admitting Unavailable NILL ., DR SARGENT Admitting Unavailable NILL ., DR SARGENT Attending Unavailable HOY ., DR HENDERSON Primary Care Unavailable HOY ., DR HENDERSON Primary Care Unavailable HOY ., DR HENDERSON Admalina Unavailable HOY ., DR HENDERSON Attending Unavailable HOY ., DR HENDERSON Consulting Unavailable HOY ., DR HENDERSON Consulting Unavailable HOY ., DR HENDERSON Primary Care Unavailable HOY ., DR HENDERSON Attending Unavailable HOY ., DR HENDERSON Admalina Unavailable NEFCY, BRAD Consulting Unavailable HOY ., DR HENDERSON Primary Care Unavailable HOY ., DR HENDERSON Admalina Unavailable HOY ., DR HENDERSON Attending Unavailable HOY ., DR HENDERSON Consulting Unavailable CHUCK TATUM Consulting Unavailable HOY ., DR HENDERSON Primary Care Unavailable HOY ., DR HENDERSON Attending Unavailable HOY ., DR HENDERSON Consulting Unavailable HOY ., DR HENDERSON Admalina Unavailable NILL ., DR SARGENT Attending Unavailable [...] Unavailable HIGHLANDER, PETER D Admitting Unavailable HIGHLANDER, BRAD Rice Attending Unavailable HOY ., DR HENDERSON Primary Care Unavailable HIGHLANDER, PETER D Consulting Unavailable HOY ., DR HENDERSON Consulting Unavailable HOY ., DR HENDERSON Primary Care Unavailable HOY ., DR HENDERSON Admalina Unavailable HOY ., DR HENDERSON Attending Unavailable ZIEBER, DR RIGO Love Consulting Unavailable BLADES, RACHANA Admitting Unavailable BLADES, RACHANA Attending Unavailable LE CLAIRE, DR SHERYL Navarrete Consulting Unavailable HOY ., DR HENDERSON Primary Care Unavailable ZIEBER, DR RIGO Love Consulting Unavailable RACHANA KENT Consulting Unavailable GARCIA ., DR IVANIA Ledezma [...] HOY ., DR HENDERSON Primary Care Unavailable PRDAIP LOPEZ Consulting Unavailable XAVIER ., MATTHEW BECKER [...] VIZCARRA Attending Unavailable JAMAL VIZCARRA Attending Unavailable AJMAL VIZCARRA Referring Unavailable JR. 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; 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] Onset: 08-24-2022 Episodic Other aftercare (1 source) Other senior living (current) drug therapy; Translations: [OTH 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 CURRENT DRUG THERAPY] Onset: 05-01-2022 Episodic Other [...] Coding Summaryon 10-22-2023 Coding Summary HTMLBase 64 GmqomompYNm5eEq+PGhlYWQ+PE1FV TQyC42wlTYtkH0uE5OIDNuYBtgtMH NHQWcZMdFqjbSoHW8tmVXsLGPx IC8+MI4qLZFuGbpefCJsu9R8mWM1F 11hqk3xOClyeEB0QXYpLjEtqmwwn8 oukLl5YFccYgphYbQx NYGclJ87MOZ2rF08Aw28nHMahYIek 2edfYs9QtQcUUKlJSY7kYqgUQwpi3 NnHTAdG21fwXPji9J4 DLInlAvhgRYxAtCbiRI7wW0qOZaxb qcni5efxekiTwy4ob62vZZxz0K9rR H3W1GesjB1ETQoiVZz VjgmlNXBwD4sztmiu1jwzuruObLcM WDpXJt8FDf3CMAkwHheOlDcCH35EJ W8OWMvcaWhM8QwKLDw yPgaTmI0g5M9Og8CP2VVDlunB2JAP UFSWTwvdGQ+IO42px02M7NwVlogUi o3NUCuLJX9kMN6nG6k TGPvDFyqy7J6dMP5B2TlwfZfyd4vh 2qkFSBtQBvlG44usDApo1E3SERhbK Q2ONGztKtlHqEqaK88 Oyc+GDWumAnjm5LlKtzbu0tkc2kff Fi1ObbpIHWgusVeuRvlBVA1n6NrXd 4fSZEkuHR7fRW3nO3d IeBgJwP5RTlhI693RvJkpKPhUqvuQ 03uP3IvvNF+WUZnKpf5UADfsVopAN 6tQ6IcYIMdonveaKHf eUkuFI9kEVQmbgodGECspP4pGREcL 4z3VyEoOqV6OCjzS2ViMOIgkjjcEh 57gT2wOfEzCjK2AFvm W7UjgwH2UTCfcNTiNIflOSX5C90wm 5X5AFVzZETqNMZ0qBB3sP4mxIahqc ogbGVmdDsgdmVydGlj ABnwOStnK388PERxqRumWuDnXFfdX yBEYXRlOiAgMTIvMTgvMjAyMzwvdG Q+ETNjEVG3dUwsHUNg mZDdFWsbYc7nrEjjbNroEY6hXTQkt zufDGOafZ5eSBPjtQKyfPdjWG6kPP Uikzafj455SgJiDNG9 ZQUtbMAgT1PwfC6hBpEkNPEeADNhU 5WslFSpBUvaR221DFmoEeQ2PPTsvg CmK1HjNMAsuAmxSwZ6 j4R5Ne2Ww0InvkhrG1ZwzBUoFfZbQ obdOAt5Y7TfIbsicQX+NZ48XDXyEQ 26PMh4ZRI9eMdgYFlr ZYQvR7LiwX8pYiJyCQCyZDOlRdc+P HRhYmxlIHdpZHRoPScxMDAlJyBzdH uiBX6aBi7iMIVwGHJb pQihnNRxQmKae5oeCFSaBKxjJM1lq YziJ0XwoHD7UEYlv4g9Vp77O89gB4 JvdXA+UCCquUA6ySB9 tB1bEzOkQfE8ELbdS810KrLrsYNjG dwvc8vaf6cvkKx9YsW7HEVmgrNrlU jyIJL1h6EfNb04H24h MDwiAUDaXAIdJSCsZLAucXgegg4tx G9wIi8+DYXeyEN8nVR2jO4oTkQnFx P0RJqjG676FrRrzSSn Thqhe7gqi7qesBl0YtUsPDVeckPlh BvtXCF4t4FvVc27G8KomZbrd5FzOp g8bd82xRVii2Y7fOQ6 M4LeNHArkkphmICnqLbtDN7oYTJot bikYFSpwZ3qMHDiX5v9ShFvTnP5XM quL5NpvrC3KAOfpGDe RUCeqMBPsE4ifjmla8svgajsVwKdS QTeIKi4OIk8FPTnvQygHtEmVUS5Rs Q1IUS7lALnzK6nnTqo sawbgT6oLdk+AFJ1mROspFHTLK4oV jwvdGQ+MSYlEOO8fYjaXIcgXKFdmC 4wJVHoM6b5BmCqUmN7 EUqcL1YzocQ6KEJkjOMrYKSghJUDw C7xakqqk6dlzxfiUkLxHNPfJWf5QR k9LPRzsTrlOhCcJPQ5 DeB6PTX2pTQhsM3wnYupdasnaV2lD yc+DdjkjEawAQD9EQe3D2PyWeu5EN RvuJjcDB3dgYBvDXql Vz8njWnsmXzzTY5oRHSdbectv217O tJxc3ykDTJanOZbWVkzPWZ7E12fk1 L9SJCxMTTlLEH3jXM9 nB9chVzeigdrtWOnsCiixnEnlJxaB OpiKZpdS013UFJqjOunMpNaXVh9W8 ZeTbt2BVQgdLroHV0q mBQqTRngPo0rsMxhuVseTS0fVKWrq bcvo665FmEqs8bzMBWbbIRiTJseFN R6E56wg1V4BEUgIBPg WNP5rJU7bT4zlUshcxpcxVJhkYmgp rVmbSbtKNnjHVasK564XXHpbBnwRq FqvQj3I0GiPbd7AMZi cJwgLV5ufZRcKDrlDi7psRuzxPasT P5iHOAlshjnm784XfGdn9jxOTCclJ CpZWccWKK7W66nw8G8 INVvZPLyQCK2iYK9kF9rdRmjbmbkq PXoqZkdhlOudVxoLHkpMQiaF104QF RvcDsnPlBhdGllbnQg YHsgBNm0C2CvBhjvtVE+ZY12RIErF Q53nDPdgLVyq3dtvFb8ZpPcMOTsVY E4lNmzIUczo8ErQMYe P92rfNQcp3S0BZFnwJidfKRpOaIvs YW9tS7dWLzfdgvcp8hbjqhhFxqjd5 piar78vR47L70tOIel ZCLnUYDkINBrYGNbbHatww9zyP4wJ i8+MLHtkCX3rCW8gV5kKDRhYdZ2QD ouK037CmKvoSEbEuvx r3lvf0hhsLq4MlS2DFXzuyWxcVkbB AU6y8HzXt27E94qFUiyIDQzNBClXP PbAPDusLjwpr4eyZ7s Ii8+WSAkcUU6bGP0zN1aPzRaBkI2L GwgA848ZuXkxOLbUcmwN70uW4GnkH A+YXIgYak9GSTyqGfi YC4hhAMyIIpwBl2iAZQ3RgOxXrNoB JezP2XsBRIhbotcvdzjiRT9LVGbZD ObqE59Iu6qoFkxJUZw nTBMyN1ecmpqa1nopuzuJzZiZFPeL Ud2MBf1ZGQdzGweIkFcEMU7QiL4PE H0aSWfrP8svSkhywnv iX4mS8KgTQHeevvjZv79qG4iEiKxZ oT8LHunYif+UkFJRlNOSURFUiwgTU FSWSBBTElDRTwvdGQ+ ITCcIPG8iPzzPNgjAOScjW5cFOExW 4t6EbHeEmK6QVmmS2XpJHHpomqxCn 41dS7vDtSlLyS4FHtw U9OmnrA0YCLfhCWyRAchSNS1S06xj 0X7MKFsSYEqOKV1bFU2yU6sbGmduc ogbGVmdDsgdmVydGlj XMfgKFzwT370TUFfzWkePmD2LwTrK cN9Rtv7V9TwRvt4GVAzyKezHS3laF AzIYrvWb6lsVpijHsr SK8iGWQlvjpyYSVjzC5iGJYzjXLrc DoaHT1nQVLcqhboj703UbBxCIN3VC LipTUfH4IwyE7eYhFe SLYiUFXuH0KvoCWeVBitD176EHtuT eL3HTPoioLzN4YrUYYhkWhyOlQ1t3 U8Dp63KRTVLZLlfdgt dGQ+WLGuCAI5hDocXGehQDBnjO7zV GXfA0h9MoGyWtM4DMtrZ4JtAYAbhv rtPa39cP2qPsIiEnP7 OEpfW9YeyaV1LEYjtSFtCWzgXJF8N 98sq9Y3BDFrNDGxBMD1lOV4uU8eyJ lnbjogbGVmdDsgdmVy wKbjOFepRAmhZ742BCZukOolVkJHZ UFMRTwvdGQ+BHJlWWE5pEkpDCxyTS VsaD6cOPGyZ3a1GaTa KsT9HUyrK7XlOAZaoptgTx08zK4dE yXiSzH2CUziP2MlrbE2EIKamMAfHV jlYFG3P37nm4Y0ZZKq DPSkWVJ0gWX2mH1uiPymtuehvYAba PzuqySoxUowKUhlLSkpX074JLRihH xmVifkvWR7rULnnOao dGQ+XK35tz99J0RjWefeQvh0BOEzI ZX2fJH9vC5sZPXsBTldt4O2zRI3A7 KihiCclh5ye1xbYIHb ILzrL49gzLRtx6I1BOVmrRW4RNVzs KgqMuIknN49Fjl+SOZbxPnoy5GlHr qcy9ont7mmdQg1PaDv NHXktwYupTdsQLN8p5CbRf50Y51dA VlzYNVpBMEkMUIzBTUxkZgrpe5slA 9wIi8+YJLslEH2bJW4 gH0gZnKuSjD5JBcrE559YfCuyOMkQ flfh1nxb0zxeLi4JmOdSNPurhKczH zdWZY3f2GxMf12A2Bw tXysq4WiBky6co36lBKtl1T4vLC0Q 9JuYZNypyvcgUOcfMnrBM9dOZZswc laSHUsyV6qAWVeS0o6 KhPuStN3UGmqQ1LakgD5BVGjkRTaS IQtoJDOiA0wellah0bnwbciUqWsLH XiWLo3BAb7PPOrzGdl UhQzRWD9PaZ5DHQ4pLDyfE3jtNqui spfkY2qLzi+GRe5v5sueFWkUE7aeF D7DO05CT96wOLoh6Z0 jBR3J8AyXQVrskvlklztyTF5QMLtB OGbfP50Kf7hbMqkKr0iZCLzJSX7HR NxeIKwN5KzmM8lFqLh ZVMhWEElG6VddRJvGOfsG406ZUtmE fL4SQBtuvIoX2CrTLJmaHxrIwZ3f6 G1Or4QGF64XR83AE04 bEYol1Y1mSK9N8NvHAOnqhcbhxcup OJ6GDSzPQPueY00Ux9fiHnkWp9wNV JrNUR1AFOdgPCnA2Vc eR6mOeAwVPAjQGSxR4CynPAgIRfqG 345SNwjYgF6KCUlabWtV1CoHELcgS puItO8c6S3Vo7FTn72 HK06HZ67lSZvx1O9bGK2B2YfWWEzy bfldskstLL2QZTtFXUyxE21Aj9ajS vbRj2oWUOmIPR4KVCt jHQnQ6VzcN6oNoNzQHDpFPOfW9Hxe NFcMDhpN715FGhuMxV5HXZhcyMrO9 XjSLBmyLbmHtV1y2F4 Xu0VRCjvnzv9T6DaFjakrVO+PC90Y BJiEG69rNVioMOhj2szgYt9ZlGuQU JqXJS1jDmmHData6Hu ZXI (more content not included)... Normal [facility] C Bloodon 10-18-2023 C Blood No growth at 5 Days Normal [facility] Comment on above: Performed By: #### 2 [id number], [id number] #### [facility] (DEFAULT) [address] [place] [address]2977 Consent Formson 10-17-2023 Consent Forms [id number] 10-17-2023 Outside Records [id number]#1.00[facility] Provider Orderson 10-17-2023 Provider Orders [id number]#1.00[facility] Telemetry Stripson Telemetry Strips [id number]#1.00[facility] Therapeutic Documentation on 10-16-2023 Therapeutic Documentation [id number]#1.00[facility] C Bloodon 10-16-2023 C Blood patient went to [facility] scan Nurse from [address] [place] [address] will call when patient is back to her room @1440 jwilkins No growth at 5 Days Normal [facility] Comment on above: Performed By: #### 6 [id number] ####[facility] (DEFAULT)[address] [place] [address] 42008 CRPon 10-16-2023 CRP 3.1 mg/dL High <=0.5 [facility] Comment on above: Performed By: #### 2 [id number], [id number] #### [facility] (DEFAULT) [address] [place] [address] 55969 Inpatient Patient Summaryon 10-16-2023 Inpatient Patient Summary [address] [address] Patient Discharge Instructions Name: ALICIA NGUYỄN : 1940 [facility]: [id number] Patient Address: [address] [place] [address] Primary Care Provider: Name: SANTIAGO OTTO After you are discharged if you find you have any questions, please, call [phone] ext [phone] to speak to a nurse. The Pharmacy at [facility] is open Sunday through Sunday from 9A [...] alcohol and/or drug addiction problems; contact the [facility] 28/05 Crisis Hotline -Text 4HPLA ef [phone]. If you received any narcotics, sedation, or [...] business decisions or sign any legal documents [facility] would like to thank you for allowing us to assist you with your healthcare needs. The following includes patient education materials and information regarding your injury/illness. ALICIA NGUYỄN has been given the following list of follow-up instructions, prescriptions, and patient education materials: Follow-up Instructions With: Address: When: JOB AGUILAR DO [address] [facility] [address] [place] [address] Within 10 to 12 days Comments: orthopedic follow up With: Address: When: Jamal Vizcarra [address] [place] [address], [address] [place] [address] Business (1) 10/26/2023 10:30 AM [...] 30 mg o (more content not included)... [facility] Pharmacy Noteon 10-16-2023 Pharmacy Note I [...] list against external fill history and available OSTEOPATHIC PHYSICIAN medication history to ensure accuracy. Reviewed regimen upon discharge which is appropriate and correct. Did not assessment counselor [facility]. [Electronically Signed on: 10/16/2023 11:12 EST] Jamal Butler [Verified on: 10/16/2023 11:12 EST] Jamal Butler [facility] Sed Rateon 10-16-2023 Sed Rate 83 mm/hr High 0-20 [facility] Comment on above: Performed By: #### 2 [id number], [id number] #### [facility] (DEFAULT) [address] [place] [address] .Auto Diff 1on 10-15-2023 Auto [place] % 9 % Normal 11-16 [facility] Comment on above: Performed By: #### 2 818774, [id number], [id number], 0851190, 3040713 #### [facility] (DEFAULT) [address] [place] [address] 80160 Baso Abs# 0.0 x10 Normal 0.0-0.2 [facility] Comment on above: Performed By: #### 2 469059, [id number], 76459501, 7294742, 5261201 #### [facility] (DEFAULT) [address] [place] [address] 96539 Basophils/100 WBC (Bld) 0.2 % Normal 0.2-2.0 [facility] Comment on above: Performed By: #### 2 083940, [id number], 29370971, 7392028, 8566254 #### [facility] (DEFAULT) [address] [place] [address] 99280 Eos Abs# 0.1 x10 Normal 0.0-0.4 [facility] Comment on above: Performed By: #### 2 410653, [id number], 45539874, 6982403, 3060238 #### [facility] (DEFAULT) [address] [place] [address] 22142 Eosinophils/100 WBC (Bld) 0.8 % Low 0.9-4.0 [facility] Comment on above: Performed By: #### 2 939358, [id number], 58162947, 0589087, 5852946 #### [facility] (DEFAULT) [address] [place] [address] 65213 Lymph Abs# 1.1 x10 Low 1.3-2.9 [facility] Comment on above: Performed By: #### 2 988195, [id number], 51656238, 7439794, 8860762 #### [facility] (DEFAULT) [address] [place] [address] 10128 Lymphocytes/100 WBC (Bld) 13 % Low 14-48 [facility] Comment on above: Performed By: #### 2 946430, [id number], 80469149, 5682203, 7289066 #### [facility] (DEFAULT) [address] [place] [address] [place] Abs# 0.8 x10 Normal 0.0-0.8 [facility] Comment on above: Performed By: #### 2 617286, [id number], 73973217, 1081257, 4925683 #### [facility] (DEFAULT) [address] [place] [address] Neut Abs# 6.5 x10 Normal 1.5-9.2 [facility] Comment on above: Performed By: #### 2 690720, [id number], 31558675, 6113306, 0291712 #### [facility] (DEFAULT) [address] [place] [address] Neutrophils/100 WBC (Bld) 76 % Normal 44-88 [facility] Comment on above: Performed By: #### 2 876967, [id number], 03263360, 7620870, 4781591 #### [facility] (DEFAULT) [address] [place] [address] BMP Standardon 10-15-2023 Breakpoint Chem Normal [facility] Comment on above: Performed By: #### 2 295521, [id number], 36598528, 2748521, 6742432 #### [facility] (DEFAULT) [address] [place] [address] 99256 eGFR Non AA >60 Invalid Interpretation Code [facility] Comment on above: Performed By: #### 2 477777, [id number], 28898447, 6780957, 3387179 #### [facility] (DEFAULT) [address] [place] [address] eGFR AA >60 Invalid Interpretation Code [facility] Comment on above: Performed By: #### 2 420567, [id number], 53697309, 8064411, 8122310 #### [facility] (DEFAULT) [address] [place] [address] Anion gap [Moles/Vol] 7.4 mmol/L Normal 5.0-19.0 [facility] Comment on above: Performed By: #### 2 391240, [id number], 29041277, 0922430, 2524744 #### [facility] (DEFAULT) [address] [place] [address] 38444 Calcium [Mass/Vol] 8.8 mg/dL Low 8.9-10.3 [facility] Comment on above: Performed By: #### 2 622805, [id number], 24098405, 2428402, 1001404 #### [facility] (DEFAULT) [address] [place] [address] 45530 Chloride [Moles/Vol] 106 mmol/L Normal 101-111 [facility] Comment on above: Performed By: #### 2 665152, [id number], 91081298, 6486462, 7094148 #### [facility] (DEFAULT) [address] [place] [address] 18538 CO2 [Moles/Vol] 26 mmol/L Normal 21-32 [facility] Comment on above: Performed By: #### 2 840391, [id number], 17752583, 3742645, 2878422 #### [facility] (DEFAULT) [address] [place] [address] 06983 Creatinine [Mass/Vol] 0.88 mg/dL Normal 0.60-1.30 [facility] Comment on above: Performed By: #### 2 352590, [id number], 80518840, 3291676, 7798734 #### [facility] (DEFAULT) [address] [place] [address] 78108 Glucose [Mass/Vol] 109.0 mg/dL Normal 74.0-118.0 [facility] Comment on above: Performed By: #### 2 081033, [id number], 66570548, 2183502, 5602924 #### [facility] (DEFAULT) [address] [place] [address] 18470 Osmolality 273 mOsm/L Invalid Interpretation Code [facility] Comment on above: Performed By: #### 2 193946, [id number], 85137880, 0976376, 1198960 #### [facility] (DEFAULT) [address] [place] [address] Potassium [Moles/Vol] 4.4 mmol/L Normal 3.6-5.1 [facility] Comment on above: Performed By: #### 2 816266, [id number], 16216345, 7162609, 4467979 #### [facility] (DEFAULT) [address] [place] [address] Sodium [Moles/Vol] 135.0 mmol/L Low 136.0-144.0 [facility] Comment on above: Performed By: #### 2 391762, [id number], 47571408, 7517543, 6322388 #### [facility] (DEFAULT) [address] [place] [address] Urea nitrogen [Mass/Vol] 19 mg/dL Normal 8-26 [facility] Comment on above: Performed By: #### 2 001192, [id number], 94824730, 8094129, 1432456 #### [facility] (DEFAULT) [address] [place] [address] Urea nitrogen/Creatinin e [Mass ratio] 21.5 mg/mg High 4.6-16.2 [facility] Comment on above: Performed By: #### 2 088350, [id number], [id number], 6657762, [id number] #### [facility] (DEFAULT) [address] [place] [address] CBC w/ Auto Diffon 3 Erythrocyte distribution width (RBC) [Ratio] 15.3 % High 11.5-15.0 [facility] Comment on above: Performed By: #### 2 748297, [id number], 24122584, 3269911, 4692755 #### [facility] (DEFAULT) [address] [place] [address] Hematocrit (Bld) [Volume fraction] 29.8 % Low 33.7-40.4 [facility] Comment on above: Performed By: #### 2 841066, [id number], 20574470, 5946908, 3272857 #### [facility] (DEFAULT) [address] [place] [address] Hemoglobin (Bld) [Mass/Vol] 9.9 g/dL Low 11.3-15.9 [facility] Comment on above: Performed By: #### 2 163688, [id number], 85837506, 8402768, 7249700 #### [facility] (DEFAULT) [address] [place] [address] Man Diff? Auto Invalid Interpretation Code [facility] Comment on above: Performed By: #### 2 099824, [id number], 71449604, 3475455, 5524630 #### [facility] (DEFAULT) [address] [place] [address] MCH (RBC) [Entitic mass] 30 pg Normal 24-34 [facility] Comment on above: Performed By: #### 2 378425, [id number], 10808505, 4611296, 9946147 #### [facility] (DEFAULT) [address] [place] [address] MCHC (RBC) [Mass/Vol] 33 g/dL Normal 26-37 [facility] Comment on above: Performed By: #### 2 438426, [id number], [id number], 1952208, 5585953 #### [facility] (DEFAULT) [address] [place] [address] MCV (RBC) [Entitic vol] 90 fL Normal 81-100 [facility] Comment on above: Performed By: #### 2 815880, [id number], 86113680, 9336743, 3340687 #### [facility] (DEFAULT) [address] [place] [address] Platelet 363 x10 Normal 138-427 [facility] Comment on above: Performed By: #### 2 605817, [id number], 99043440, 5111474, 6342029 #### [facility] (DEFAULT) [address] [place] [address] Platelet mean volume (Bld) [Entitic vol] 6.1 fL Low 6.3-10.2 [facility] Comment on above: Performed By: #### 2 625842, [id number], 04255059, 1446456, 4165500 #### [facility] (DEFAULT) [address] [place] [address] RBC 3.31 x10 Low 3.70-5.30 [facility] Comment on above: Performed By: #### 2 370735, [id number], 18726157, 1610057, 1012563 #### [facility] (DEFAULT) [address] [place] [address] WBC 8.5 x10 Normal 3.5-10.5 [facility] Comment on above: Performed By: #### 2 172975, [id number], 81929890, 9724619, 2455631 #### [facility] (DEFAULT) [address] [place] [address] CRPon 10-15-2023 CRP 2.1 mg/dL High <=0.5 [facility] Comment on above: Performed By: #### 2 272035, [id number], 08576712, 8234320, 6938701 ####[facility] (DEFAULT)[address] [place] [address] Nutrition Noteon 10-15-2023 Nutrition Note Per intake records, Pts avg 75+% of meals. Last BM 10/13. 10/15 labs reviewed, CRP/sed rate slowly improving. PICC line in place for IV atb. Discharge anticipated for tomorrow. Normal [facility] Sed Rateon 10-15-2023 Sed Rate 78 mm/hr High 0-20 [facility] Comment on above: Performed By: #### 2 141498, [id number], 58042547, 2424837, 9734560 ####[facility] (DEFAULT)[address] [place] [id number] XR Chest 1 View Frontalon XR Chest [...] process. Final Signed (Electronic Signature): Dale Richmond 10/15/23 1:04 pm Technologist: Peggy LOMELI Normal [facility] C Fluidon 10-14-2023 C Fluid Moderate [...] <=0.5 Verified Vanc S 0.5 Verified Normal [facility] Comment on above: Performed By: #### 2 057720, [id number] #### [facility] (DEFAULT) [address] [place] [address]176 CRPon 10-14-2023 CRP 1.8 mg/dL High <=0.5 [facility] Comment on above: Performed By: #### 2 931528, [id number] #### [facility] (DEFAULT) [address] [place] [address] Sed Rateon 10-14-2023 Sed Rate 74 mm/hr High 0-20 [facility] Comment on above: Performed By: #### 2 987567, [id number] #### [facility] (DEFAULT) [address] [place] [address]707 .Auto Diff 1on 10-13-2023 Auto [place] % 5 % Normal 1-12 [facility] Comment on above: Performed By: #### 2 [id number], [id number] #### [facility] (DEFAULT) [address] [place] [address] Baso Abs# 0.0 x10 Normal 0.0-0.2 [facility] Comment on above: Performed By: #### 2 632449, [id number] #### [facility] (DEFAULT) [address] [place] [address] Basophils/100 WBC (Bld) 0.2 % Normal 0.2-2.0 [facility] Comment on above: Performed By: #### 2 134651, [id number] #### [facility] (DEFAULT) [address] [place] [address] Eos Abs# 0.0 x10 Normal 0.0-0.4 [facility] Comment on above: Performed By: #### 2 117227, [id number] #### [facility] (DEFAULT) [address] [place] [address] Eosinophils/100 WBC (Bld) 0.1 % Low 0.9-4.0 [facility] Comment on above: Performed By: #### 2 615661, 0668237 #### [facility] (DEFAULT) [address] [place] [address] Lymph Abs# 1.0 x10 Low 1.3-2.9 [facility] Comment on above: Performed By: #### 2 570798, [id number] #### [facility] (DEFAULT) [address] [place] [address] Lymphocytes/100 WBC (Bld) 9 % Low 14-48 [facility] Comment on above: Performed By: #### 2 860356, [id number] #### [facility] (DEFAULT) [address] [place] [address] [place] Abs# 0.6 x10 Normal 0.0-0.8 [facility] Comment on above: Performed By: #### 2 996799, 6396012 #### [facility] (DEFAULT) [address] [place] [address] Neut Abs# 10.1 x10 High 1.5-9.2 [facility] Comment on above: Performed By: #### 2 772252, [id number] #### [facility] (DEFAULT) [address] [place] [address] Neutrophils/100 WBC (Bld) 86 % Normal 44-88 [facility] Comment on above: Performed By: #### 2 177563, [id number] #### [facility] (DEFAULT) [address] [place] [address] BMP Standardon 10-13-2023 Breakpoint Chem Normal [facility] Comment on above: Performed By: #### 2 867485, 0669360 #### [facility] (DEFAULT) [address] [place] [address] eGFR Non AA >60 Invalid Interpretation Code [facility] Comment on above: Performed By: #### 2 214330, [id number] #### [facility] (DEFAULT) [address] [place] [address] 12718 eGFR AA >60 Invalid Interpretation Code [facility] Comment on above: Performed By: #### 2 613090, [id number] #### [facility] (DEFAULT) [address] [place] [address] 06862 Calcium [Mass/Vol] 8.5 mg/dL Low 8.9-10.3 [facility] Comment on above: Performed By: #### 2 257437, 0766345 #### [facility] (DEFAULT) [address] [place] [address] 00648 Chloride [Moles/Vol] 105 mmol/L Normal 101-111 [facility] Comment on above: Performed By: #### 2 666893, [id number] #### [facility] (DEFAULT) [address] [place] [address] 90920 CO2 [Moles/Vol] 24 mmol/L Normal 21-32 [facility] Comment on above: Performed By: #### 2 153492, 8113954 #### [facility] (DEFAULT) [address] [place] [address] 61493 Creatinine [Mass/Vol] 0.76 mg/dL Normal 0.60-1.30 [facility] Comment on above: Performed By: #### 2 042678, [id number] #### [facility] (DEFAULT) [address] [place] [address] 16053 Glucose [Mass/Vol] 113.0 mg/dL Normal 74.0-118.0 [facility] Comment on above: Performed By: #### 2 004999, 4366138 #### [facility] (DEFAULT) [address] [place] [address] 01359 Potassium [Moles/Vol] 4.9 mmol/L Normal 3.6-5.1 [facility] Comment on above: Performed By: #### 2 840552, 9657792 #### [facility] (DEFAULT) [address] [place] [address] 22287 Sodium [Moles/Vol] 135.0 mmol/L Low 136.0-144.0 [facility] Comment on above: Performed By: #### 2 102570, 3402676 #### [facility] (DEFAULT) [address] [place] [address] 35081 Urea nitrogen [Mass/Vol] 33 mg/dL High 8-26 [facility] Comment on above: Performed By: #### 2 805103, 2670569 #### [facility] (DEFAULT) [address] [place] [address] 43973 Anion gap [Moles/Vol] 10.9 mmol/L Normal 5.0-19.0 [facility] Comment on above: Performed By: #### 2 806708, 2532554 #### [facility] (DEFAULT) [address] [place] [address] 43011 Osmolality 278 mOsm/L Invalid Interpretation Code [facility] Comment on above: Performed By: #### 2 690792, 9403462 #### [facility] (DEFAULT) [address] [place] [address] 06083 Urea nitrogen/Creatinin e [Mass ratio] 43.4 mg/mg High 4.6-16.2 [facility] Comment on above: Performed By: #### 2 158063, 1793030 #### [facility] (DEFAULT) [address] [place] [address] 16384 C Bloodon 10-13-2023 C Blood Bacillus species No ANICETO performed on this organism Results called to Alicia Leonard RN at 2S by CDD and results read back for confirmation on 10/12/2023 05:12:42 Normal [facility] Comment on above: Performed By: #### 2 806326, [id number] #### [facility] (DEFAULT) [address] [place] [address] CBC w/ Auto Diffon 3 Erythrocyte distribution width (RBC) [Ratio] 15.0 % Normal 11.5-15.0 [facility] Comment on above: Performed By: #### 2 225150, 4149648 #### [facility] (DEFAULT) [address] [place] [address] Hematocrit (Bld) [Volume fraction] 26.7 % Low 33.7-40.4 [facility] Comment on above: Performed By: #### 2 630821, 1738132 #### [facility] (DEFAULT) [address] [place] [address] Hemoglobin (Bld) [Mass/Vol] 8.9 g/dL Low 11.3-15.9 [facility] Comment on above: Performed By: #### 2 752258, 6546844 #### [facility] (DEFAULT) [address] [place] [address] Man Diff? Auto Invalid Interpretation Code [facility] Comment on above: Performed By: #### 2 090826, [id number] #### [facility] (DEFAULT) [address] [place] [address] 96371 MCH (RBC) [Entitic mass] 30 pg Normal 24-34 [facility] Comment on above: Performed By: #### 2 679791, 3059751 #### [facility] (DEFAULT) [address] [place] [address] 39376 MCHC (RBC) [Mass/Vol] 33 g/dL Normal 26-37 [facility] Comment on above: Performed By: #### 2 413025, 1897305 #### [facility] (DEFAULT) [address] [place] [address] 22911 MCV (RBC) [Entitic vol] 89 fL Normal 81-100 [facility] Comment on above: Performed By: #### 2 557317, 2913697 #### [facility] (DEFAULT) [address] [place] [address] Platelet 386 x10 Normal 138-427 [facility] Comment on above: Performed By: #### 2 707764, 6432026 #### [facility] (DEFAULT) [address] [place] [address] Platelet mean volume (Bld) [Entitic vol] 6.1 fL Low 6.3-10.2 [facility] Comment on above: Performed By: #### 2 744920, 2958952 #### [facility] (DEFAULT) [address] [place] [address] RBC 3.00 x10 Low 3.70-5.30 [facility] Comment on above: Performed By: #### 2 014411, 5277831 #### [facility] (DEFAULT) [address] [place] [address] WBC 11.8 x10 High 3.5-10.5 [facility] Comment on above: Performed By: #### 2 257770, 3928944 #### [facility] (DEFAULT) [address] [place] [address] CRPon 10-13-2023 CRP 3.2 mg/dL High <=0.5 [facility] Comment on above: Performed By: #### 2 458966, 5359613 #### [facility] (DEFAULT) [address] [place] [address] 55377 Sed Rateon 10-13-2023 Sed Rate 82 mm/hr High 0-20 [facility] Comment on above: Performed By: #### 2 080155, 6630800 #### [facility] (DEFAULT) [address] [place] [address] .Auto Diff 1on 10-12-2023 Auto [place] % 6 % Normal 11-16 [facility] Comment on above: Performed By: #### 1 0781067, [id number], 4690494 ####[facility] (DEFAULT)[address] [place] [address] Baso Abs# 0.0 x10 Normal 0.0-0.2 [facility] Comment on above: Performed By: #### 1 4890493, [id number], 5734133 ####[facility] (DEFAULT)[address] [place] [address] 03250 Basophils/100 WBC (Bld) 0.1 % Low 0.2-2.0 [facility] Comment on above: Performed By: #### 1 2057867, [id number], 8160825 ####[facility] (DEFAULT)[address] [place] [address] 91794 Eos Abs# 0.0 x10 Normal 0.0-0.4 [facility] Comment on above: Performed By: #### 1 2793144, [id number], 2291496 ####[facility] (DEFAULT)[address] [place] [address] 36868 Eosinophils/100 WBC (Bld) 0.0 % Low 0.9-4.0 [facility] Comment on above: Performed By: #### 1 1899211, [id number], 0875115 ####[facility] (DEFAULT)[address] [place] [address] 67841 Lymph Abs# 0.7 x10 Low 1.3-2.9 [facility] Comment on above: Performed By: #### 1 3994379, [id number], 0341090 ####[facility] (DEFAULT)[address] [place] [address] 37402 Lymphocytes/100 WBC (Bld) 6 % Low 14-48 [facility] Comment on above: Performed By: #### 1 1089755, [id number], 1052858 ####[facility] (DEFAULT)[address] [place] [address] 07106 [place] Abs# 0.7 x10 Normal 0.0-0.8 [facility] Comment on above: Performed By: #### 1 7259516, [id number], 2719499 ####[facility] (DEFAULT)[address] [place] [address] 47383 Neut Abs# 10.3 x10 High 1.5-9.2 [facility] Comment on above: Performed By: #### 1 3503896, [id number], 7027582 ####[facility] (DEFAULT)[address] [place] [address] Neutrophils/100 WBC (Bld) 88 % Normal 44-88 [facility] Comment on above: Performed By: #### 1 6331977, [id number], 7175603 ####[facility] (DEFAULT)[address] [place] [address] CBC w/ Auto Diffon 3 Erythrocyte distribution width (RBC) [Ratio] 15.5 % High 11.5-15.0 [facility] Comment on above: Performed By: #### 1 1070222, [id number], 5134350 ####[facility] (DEFAULT)[address] [place] [address] Hematocrit (Bld) [Volume fraction] 29.6 % Low 33.7-40.4 [facility] Comment on above: Performed By: #### 1 7459239, [id number], 8154539 ####[facility] (DEFAULT)[address] [place] [address] Hemoglobin (Bld) [Mass/Vol] 10.1 g/dL Low 11.3-15.9 [facility] Comment on above: Performed By: #### 1 5842175, 8131205197, 4647616 ####[facility] (DEFAULT)[address] [place] [address] Man Diff? Auto Invalid Interpretation Code [facility] Comment on above: Performed By: #### 1 2058313, [id number], 0637871 ####[facility] (DEFAULT)[address] [place] [address] MCH (RBC) [Entitic mass] 30 pg Normal 24-34 [facility] Comment on above: Performed By: #### 1 2864039, [id number], 9701362 ####[facility] (DEFAULT)[address] [place] [address] MCHC (RBC) [Mass/Vol] 34 g/dL Normal 26-37 [facility] Comment on above: Performed By: #### 1 5592101, [id number], 5340210 ####[facility] (DEFAULT)[address] [place] [address] 04825 MCV (RBC) [Entitic vol] 88 fL Normal 81-100 [facility] Comment on above: Performed By: #### 1 3501548, 1949134620, 1155823 ####[facility] (DEFAULT)[address] [place] [address] 48502 Platelet 434 x10 High 138-427 [facility] Comment on above: Performed By: #### 1 8159754, [id number], 3445579 ####[facility] (DEFAULT)[address] [place] [address] Platelet mean volume (Bld) [Entitic vol] 6.2 fL Low 6.3-10.2 [facility] Comment on above: Performed By: #### 1 9164489, [id number], 7635790 ####[facility] (DEFAULT)[address] [place] [address] RBC 3.38 x10 Low 3.70-5.30 [facility] Comment on above: Performed By: #### 1 9438130, [id number], 7825931 ####[facility] (DEFAULT)[address] [place] [address] WBC 11.7 x10 High 3.5-10.5 [facility] Comment on above: Performed By: #### 1 5986626, [id number], 6848428 ####[facility] (DEFAULT)[address] [place] [address] CMP Standardon 10-12-2023 eGFR Non AA 57 mL/min/1.73m2 Invalid Interpretation Code [facility] Comment on above: Performed By: #### 1 4655800, [id number], 3967846 ####[facility] (DEFAULT)[address] [place] [address] eGFR AA >60 Invalid Interpretation Code [facility] Comment on above: Performed By: #### 1 4963363, [id number], 8363632 ####[facility] (DEFAULT)[address] [place] [address] Albumin [Mass/Vol] 2.4 g/dL Low 3.5-5.0 [facility] Comment on above: Performed By: #### 1 6771628, [id number], 6255052 ####[facility] (DEFAULT)[address] [place] [address] 68863 Albumin/Globulin [Mass ratio] 0.6 {ratio} Low 1.4-2.6 [facility] Comment on above: Performed By: #### 1 6073619, 3504667686, 0909482 ####[facility] (DEFAULT)[address] [place] [address] 77787 Alk Phos 105 IU/L High 32-91 [facility] Comment on above: Performed By: #### 1 6348137, [id number], 2231363 ####[facility] (DEFAULT)[address] [place] [address] 02078 ALT [Catalytic activity/Vol] 19.0 U/L Normal 14.0-54.0 [facility] Comment on above: Performed By: #### 1 6702180, [id number], 0595175 ####[facility] (DEFAULT)[address] [place] [address] 43556 Anion gap [Moles/Vol] 14.7 mmol/L Normal 5.0-19.0 [facility] Comment on above: Performed By: #### 1 9477031, [id number], 7443412 ####[facility] (DEFAULT)[address] [place] [address] 75708 AST [Catalytic activity/Vol] 17 U/L Normal 15-41 [facility] Comment on above: Performed By: #### 1 5154660, 2351349522, 4777080 ####[facility] (DEFAULT)[address] [place] [address] 44646 Bili Total 0.6 mg/dL Normal 0.3-1.2 [facility] Comment on above: Performed By: #### 1 5767780, [id number], 2485166 ####[facility] (DEFAULT)[address] [place] [address] 51628 Calcium [Mass/Vol] 8.8 mg/dL Low 8.9-10.3 [facility] Comment on above: Performed By: #### 1 0138044, 8127341262, 1909831 ####[facility] (DEFAULT)[address] [place] [address] 39022 Chloride [Moles/Vol] 103 mmol/L Normal 101-111 [facility] Comment on above: Performed By: #### 1 7777263, [id number], 0038694 ####[facility] (DEFAULT)[address] [place] [address] 05475 CO2 [Moles/Vol] 25 mmol/L Normal 21-32 [facility] Comment on above: Performed By: #### 1 5308252, 8680517160, 5813966 ####[facility] (DEFAULT)[address] [place] [address] 47606 Creatinine [Mass/Vol] 0.94 mg/dL Normal 0.60-1.30 [facility] Comment on above: Performed By: #### 1 2980274, 3664731084, 8629205 ####[facility] (DEFAULT)[address] [place] [address] 94458 Globulin (S) [Mass/Vol] 3.5 g/dL Normal 1.5-4.3 [facility] Comment on above: Performed By: #### 1 9630542, 8489682792, 6913517 ####[facility] (DEFAULT)[address] [place] [address] 83248 Glucose [Mass/Vol] 161.0 mg/dL High 74.0-118.0 [facility] Comment on above: Performed By: #### 1 1690359, [id number], 1969263 ####[facility] (DEFAULT)[address] [place] [address] 05923 Osmolality 286 mOsm/L Invalid Interpretation Code [facility] Comment on above: Performed By: #### 1 2053402, [id number], 2522576 ####[facility] (DEFAULT)[address] [place] [address] 09554 Potassium [Moles/Vol] 4.7 mmol/L Normal 3.6-5.1 [facility] Comment on above: Performed By: #### 1 0637781, [id number], 0462786 ####[facility] (DEFAULT)[address] [place] [address] 36066 Protein [Mass/Vol] 5.9 g/dL Low 6.5-8.1 [facility] Comment on above: Performed By: #### 1 7691198, [id number], 7588306 ####[facility] (DEFAULT)[address] [place] [address] 59091 Sodium [Moles/Vol] 138.0 mmol/L Normal 136.0-144.0 [facility] Comment on above: Performed By: #### 1 8350697, 9613070273, 7149779 ####[facility] (DEFAULT)[address] [place] [address] 59592 Urea nitrogen [Mass/Vol] 32 mg/dL High 8-26 [facility] Comment on above: Performed By: #### 1 7560270, [id number], 9560335 ####[facility] (DEFAULT)[address] [place] [address] 48981 Urea nitrogen/Creatinin e [Mass ratio] 34.0 mg/mg High 4.6-16.2 [facility] Comment on above: Performed By: #### 1 8770626, [id number], 8524274 ####[facility] (DEFAULT)[address] [place] [address] 64280 CRPon 10-12-2023 CRP 7.2 mg/dL High <=0.5 [facility] Comment on above: Performed By: #### 2 626079, 9999201 #### [facility] (DEFAULT) [address] [place] [address] Consent Formson 10-12-2023 Consent Forms [id number] Normal [facility] Nutrition Noteon 10-12-2023 Nutrition Note Pt admitted w/ Rt kn ee pain, recent washout. CT scan noting septic arthritis, IV atb initiated. Pt placed on a Regular diet, so far eating 100%. 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 No chewing/swallowing problems identified. Labs reviewed [...] taking extra protein at home. To follow. [facility] Pharmacy Noteon 10-12-2023 Pharmacy Note This [...] hours with the next trough draw on /*. The calculated maintenance dose is vancomycin IV 500 mg Q 24 hrs with the next trough draw on 10/15/23 @ 1030 [Electronically Signed on: 10/12/2023 10:24 EST] Andrés Grover [Verified on: 10/12/2023 10:24 EST] Andrés Grover [facility] Procalcitoninon 10-12-2023 Procalcitonin 0.109 ng/mL Low 0.500-1.000 [facility] Comment on above: Performed By: #### 7 [id number] #### [facility] (DEFAULT) [address] [place] [address] Sed Rateon 10-12-2023 Sed Rate 74 mm/hr High 0-20 [facility] Comment on above: Performed By: #### 2 297381, 1621705 #### [facility] (DEFAULT) [address] [place] [address] 48706 US Echocardiogram Completeon 10-12-2023 US Echocardiogram Complete [...] Junction2.89 cm F: 2.3 - 2.9 LV Hjfj471.22 g LVOT Diameter 2.09 cm IVC1.25 (<= [...] Single Plane 4 CH 25.69 mLBiplane LA Mfzqoi06.33 mL Single Plane 2 CH67.19 mLLA ESV Index29.65 mL/m2 Right Atrium Area Systole RA Systolic Area A4C9.10 cm2RA Systolic Vol A4C19.30 mL Aortic Valve AoV Peak Velocity1.30 m/sLVOT Peak Velocity1.04 m/s AO Mean Velocity0.86 m/sLVOT Mean Velocity0.61 m/s AO Peak PG6.80 mmHgLVOT Peak PG4.31 mmHg AO Mean PG3.48 mmHgLVOT Mean PG1.86 mmHg AO V2 VTI22.79 cmLVOT V1 VTI20.10 cm ESTUARDO (Vmax)2.73 wj4GREP Area 3.43 cm2 ESTUARDO (VTI)3.03 cm2SV (LVOT) 68.96 mL Indexed ESTUARDO (VTI)1.85 cm2/m2AI [place] 2.40 m/s2 AI UPS291.11 ms Mitral Valve MV Max Jjyyhbcb396.09 m/sMV PHT58.48 ms MV E Max Velocity0.55 m/sMVA (PHT)3.76 cm2 MV A Max Velocity0.67 m/sMR WIA154.58 cm E/A Ratio0.8MR Peak Velocity5.74 m/s MV Decel. Gguc736.67 ms TDI Med e' Velocity5.08 cm/sMV E / Medial e' 10.72 Lat e' Velocity6.45 cm/sMV E / Lateral e' 8.45 TV S'16.13 cm/s Pulmonary Valve PV Peak Velocity0.78 m/sPV Peak PG2.43 mmHg [place] End Diastolic Carlos.62.56 m/s PV Mean PG1.46 mmHg Tricuspid Valve TR Peak Velocity3.10 m/sRAP Estimate3.00 mmHg TR Peak PG38.55 heImXIWO49.55 mmHg Final Signed (Electronic Signature): Marquis Pulido MD 10/12/23 3:45 pm Technologist: ERA [facility] XR Chest 1 View Frontalon XR [...] MD 10/12/23 9:27 am Technologist: SANGEETA SIMPSON [facility] .Auto Diff 110-11-2023 Auto [place] % 7 % Normal 11-16 [facility] Comment on above: Performed By: #### 2 355051, [id number], 99799866, 3322648329, [id number], 8605890356, [id number], 2423766 ####[facility] (DEFAULT)[address] [place] [address] 99968 Baso Abs# 0.1 x10 Normal 0.0-0.2 [facility] Comment on above: Performed By: #### 2 165202, [id number], 79563899, 3591163282, 1703215432, 8914054814, 3877824169, 8339765 ####[facility] (DEFAULT)[address] [place] [address] 10696 Basophils/100 WBC (Bld) 0.4 % Normal 0.2-2.0 [facility] Comment on above: Performed By: #### 2 867772, [id number], 07898900, 4638718298, 4279488934, 9457103317, 3829495692, 8145300 ####[facility] (DEFAULT)[address] [place] [address] 05875 Eos Abs# 0.0 x10 Normal 0.0-0.4 [facility] Comment on above: Performed By: #### 2 195909, [id number], 28266096, 3661995536, 0886833572, 1970813045, 7737114511, 7501839 ####[facility] (DEFAULT)[address] [place] [address] 57886 Eosinophils/100 WBC (Bld) 0.2 % Low 0.9-4.0 [facility] Comment on above: Performed By: #### 2 814265, [id number], 04215991, [id number], 9789869281, 3867974465, 8150391747, 7277580 ####[facility] (DEFAULT)[address] [place] [address] 93752 Lymph Abs# 1.2 x10 Low 1.3-2.9 [facility] Comment on above: Performed By: #### 2 [id number], [id number], [id number], [id number], [id number], [id number], [id number], [id number] ####[facility] (DEFAULT)[address] [place] [address] 01676 Lymphocytes/100 WBC (Bld) 8 % Low 14-48 [facility] Comment on above: Performed By: #### 2 [id number], [id number], [id number], [id number], [id number], [id number], [id number], [id number] ####[facility] (DEFAULT)[address] [place] [address] 26100 [place] Abs# 1.1 x10 High 0.0-0.8 [facility] Comment on above: Performed By: #### 2 666610, [id number], [id number], [id number], [id number], [id number], [id number], [id number] ####[facility] (DEFAULT)[address] [place] [address] 98684 Neut Abs# 13.6 x10 High 1.5-9.2 [facility] Comment on above: Performed By: #### 2 135330, [id number], [id number], [id number], [id number], [id number], [id number], [id number] ####[facility] (DEFAULT)[address] [place] [address] 38383 Neutrophils/100 WBC (Bld) 85 % Normal 44-88 [facility] Comment on above: Performed By: #### 2 609644, [id number], [id number], [id number], [id number], [id number], [id number], [id number] ####[facility] (DEFAULT)[address] [place] [address] 45689 Anesthesia Noteon 10-11-2023 Anesthesia Note Patient: ALICIA [...] on: 10/11/2023 13:00 EST] Sheryl Dennis DO [facility] Anesthesia Note Patient: ALICIA NGUYỄN Age: [...] All Problems HTN (hypertension) / SNOMED CT 8068054075 / Confirmed Hypothyroidism / SNOMED CT 07149162 / Confirmed Histories Family History: No family history items have been selected or recorded. Procedure history: Appendectomy (280382015). History of total hysterectomy (2087397037). Knee (095307003). Comments: 10/11/2023 7:23 Radha Siddiqui RN total left Plantar fasciitis ([id number]). Comments: 10/11/2023 7:26 Radha Siddiqui RN left Cholecystectomy (02442597). Metatarsal (44128491). Comments: 10/11/2023 7:25 Radha Siddiqui RN right [...] Oriented. Review / Management Laboratory Results Plan [employer]#(ASA) physical status classification: Class [...] on: 10/11/2023 09:23 EST] Sheryl Dennis DO [facility] BF Cell Cnton 10-11-2023 Appear BF Cloudy [facility] Comment on above: Order Comment: right knee fluid Performed By: #### 6 [id number] #### [facility] (DEFAULT) [address] [place] [address] Cell Cnt BF Type Synovial Fl [facility] Comment on above: Order Comment: right knee fluid Performed By: #### 6 [id number] #### [facility] (DEFAULT) [address] [place] [address] 52100 Color BF Red [facility] Comment on above: Order Comment: right knee fluid Performed By: #### 6 [id number] #### [facility] (DEFAULT) [address] [place] [address] 13599 RBC BF [id number] Invalid Interpretation Code [facility] Comment on above: Order Comment: right knee fluid Performed By: #### 6 771109 #### [facility] (DEFAULT) [address] [place] [address] [place] [id number] Invalid Interpretation Code [facility] Comment on above: Order Comment: right knee fluid Performed By: #### 6 [id number] #### [facility] (DEFAULT) [address] [place] [address] 53101 BMP Standardon 10-11-2023 Breakpoint Chem Normal [facility] Comment on above: Performed By: #### 2 179850, [id number], 75743383, 7663018694, 2461192819, 1630476919, 0566661883, 6024650 ####[facility] (DEFAULT)[address] [place] [address] 05959 eGFR Non AA 57 mL/min/1.73m2 Invalid Interpretation Code [facility] Comment on above: Performed By: #### 2 109972, [id number], 94764991, 0744541221, 2016693353, 7426749531, 4966614609, 6040952 ####[facility] (DEFAULT)[address] [place] [address] 36776 eGFR AA >60 Invalid Interpretation Code [facility] Comment on above: Performed By: #### 2 608828, [id number], 42572111, 6695517058, 6989679012, 0067383948, 7409289246, 8832243 ####[facility] (DEFAULT)[address] [place] [address] 51066 Anion gap [Moles/Vol] 13.6 mmol/L Normal 5.0-19.0 [facility] Comment on above: Performed By: #### 2 296201, 3416859855, 02678704, 4181655070, 6010402911, 0112264676, 2520565415, 4097577 ####[facility] (DEFAULT)[address] [place] [address] 73141 Calcium [Mass/Vol] 9.6 mg/dL Normal 8.9-10.3 [facility] Comment on above: Performed By: #### 2 195555, [id number], 43912601, 9189793084, 8021845688, 3998532240, 6855492423, 7205490 ####[facility] (DEFAULT)[address] [place] [address] 84526 Chloride [Moles/Vol] 102 mmol/L Normal 101-111 [facility] Comment on above: Performed By: #### 2 317447, 4305301494, 59501602, 7688001814, 8887593536, 7834073833, 7778325727, 1065356 ####[facility] (DEFAULT)[address] [place] [address] 72182 CO2 [Moles/Vol] 25 mmol/L Normal 21-32 [facility] Comment on above: Performed By: #### 2 173744, 8855258828, 85900771, 0523043223, 5465473281, 8723751607, 5086164982, 4158998 ####[facility] (DEFAULT)[address] [place] [address] 09469 Creatinine [Mass/Vol] 0.93 mg/dL Normal 0.60-1.30 [facility] Comment on above: Performed By: #### 2 729776, 3882194638, 65839752, 3753298502, 6003008140, 0110205483, 2721244539, 6934673 ####[facility] (DEFAULT)[address] [place] [address] 95344 Glucose [Mass/Vol] 114.0 mg/dL Normal 74.0-118.0 [facility] Comment on above: Performed By: #### 2 838074, 6210033777, 00619879, 6377000763, 6633943111, 3885887460, 4272414544, 2405971 ####[facility] (DEFAULT)[address] [place] [address] 63147 Osmolality 279 mOsm/L Invalid Interpretation Code [facility] Comment on above: Performed By: #### 2 117506, 9141690749, 78757450, 3671273615, 0680638838, 8079356504, 6593177833, 0364301 ####[facility] (DEFAULT)[address] [place] [address] 89082 Potassium [Moles/Vol] 4.6 mmol/L Normal 3.6-5.1 [facility] Comment on above: Performed By: #### 2 326176, 5207424438, 69390221, 1792529381, 8744611406, 2552857300, 5434784016, 1434046 ####[facility] (DEFAULT)[address] [place] [address] 24285 Sodium [Moles/Vol] 136.0 mmol/L Normal 136.0-144.0 [facility] Comment on above: Performed By: #### 2 924108, 1458039233, 14275541, 9634961468, 2269526383, 2706437054, 5439716542, 7324623 ####[facility] (DEFAULT)[address] [place] [address] 11352 Urea nitrogen [Mass/Vol] 30 mg/dL High 8-26 [facility] Comment on above: Performed By: #### 2 020148, 2227070878, 28891387, 4423649286, 5327716655, 1736272920, 5646628034, 5727313 ####[facility] (DEFAULT)[address] [place] [address] 93503 Urea nitrogen/Creatinin e [Mass ratio] 32.2 mg/mg High 4.6-16.2 [facility] Comment on above: Performed By: #### 2 246180, 0035021430, 94644645, 8785751874, 2306464684, 2848684716, 6208728862, 3450712 ####[facility] (DEFAULT)[address] [place] [address] 08143 Body Fluid Diffon 10-11-2023 BF Bands % 2 Invalid Interpretation Code [facility] Comment on above: Order Comment: Right knee fluidVerbal order per Kelly Long Performed By: #### 2 [id number] ####[facility] (DEFAULT)[address] [place] [address] BF Baso % 0 Invalid Interpretation Code [facility] Comment on above: Order Comment: Right knee fluidVerbal order per Kelly Long Performed By: #### 2 [id number] ####[facility] (DEFAULT)[address] [place] [address] BF Eos % 0 Invalid Interpretation Code [facility] Comment on above: Order Comment: Right knee fluidVerbal order per Kelly Long Performed By: #### 2 [id number] ####[facility] (DEFAULT)[address] [place] [address] BF Lymph % 5 Invalid Interpretation Code [facility] Comment on above: Order Comment: Right knee fluidVerbal order per Kelly Long Performed By: #### 2 [id number] ####[facility] (DEFAULT)[address] [place] [address] BF [place] % 0 Invalid Interpretation Code [facility] Comment on above: Order Comment: Right knee fluidVerbal order per Kelly Long Performed By: #### 2 [id number] ####[facility] (DEFAULT)[address] [place] [address] BF Segs % 93 Invalid Interpretation Code [facility] Comment on above: Order Comment: Right knee fluidVerbal order per Kelly Long Performed By: #### 2 [id number] ####[facility] (DEFAULT)[address] [place] [address] CBC w/ Auto Diffon 3 Erythrocyte distribution width (RBC) [Ratio] 15.3 % High 11.5-15.0 [facility] Comment on above: Performed By: #### 2 287308, 0734815134, 15763281, 9970476198, 5740498129, 8879091705, 9008849868, 2811307 ####[facility] (DEFAULT)[address] [place] [address] Hematocrit (Bld) [Volume fraction] 36.1 % Normal 33.7-40.4 [facility] Comment on above: Performed By: #### 2 720742, 1564305222, 07651311, 0533824547, 9554337343, 8838221559, 5656435919, 0260413 ####[facility] (DEFAULT)[address] [place] [address] Hemoglobin (Bld) [Mass/Vol] 11.8 g/dL Normal 11.3-15.9 [facility] Comment on above: Performed By: #### 2 514308, 5149725591, 47781780, 5139923674, 1762077607, 2717056405, 6242083335, 2382530 ####[facility] (DEFAULT)[address] [place] [address] Man Diff? Auto Invalid Interpretation Code [facility] Comment on above: Performed By: #### 2 193767, 0199885024, 77969505, 8889393569, 9475417240, 9866549100, 1529402312, 8570353 ####[facility] (DEFAULT)[address] [place] [address] 60729 MCH (RBC) [Entitic mass] 29 pg Normal 24-34 [facility] Comment on above: Performed By: #### 2 283132, 8722969764, 22653334, 6892805006, 5108363499, 8102994299, 0132292913, 7708777 ####[facility] (DEFAULT)[address] [place] [address] 28748 MCHC (RBC) [Mass/Vol] 33 g/dL Normal 26-37 [facility] Comment on above: Performed By: #### 2 000119, 6889833399, 92179776, 6189230685, 1606639771, 3349803014, 7588588771, 2870392 ####[facility] (DEFAULT)[address] [place] [address] 41465 MCV (RBC) [Entitic vol] 89 fL Normal 81-100 [facility] Comment on above: Performed By: #### 2 296587, 2323674322, 18111491, 5193285447, 5962203681, 2429659334, 3715070641, 3070134 ####[facility] (DEFAULT)[address] [place] [address] 99394 Platelet 492 x10 High 138-427 [facility] Comment on above: Performed By: #### 2 026596, 2739698356, 26868366, 5391279055, 6482454133, 1626710986, 4305489936, 9614834 ####[facility] (DEFAULT)[address] [place] [address] 73473 Platelet mean volume (Bld) [Entitic vol] 6.2 fL Low 6.3-10.2 [facility] Comment on above: Performed By: #### 2 873210, 4538675416, 06724703, 3603850893, 8829328140, 0913987704, 9105728946, 5673130 ####[facility] (DEFAULT)[address] [place] [address] 33463 RBC 4.05 x10 Normal 3.70-5.30 [facility] Comment on above: Performed By: #### 2 878017, 2204998293, 18139327, 1034419864, 1325710758, 4123538093, 0098941593, 8252920 ####[facility] (DEFAULT)[address] [place] [address] 92705 WBC 16.0 x10 High 3.5-10.5 [facility] Comment on above: Result Comment: Slid e Reviewed Performed By: #### 2 198660, 5074766568, 66218764, 1157802114, 6600840938, 4615110164, 9739697999, 0311823 ####[facility] (DEFAULT)[address] [place] [address] 54752 CRPon 10-11-2023 CRP 6.1 mg/dL High <=0.5 [facility] Comment on above: Performed By: #### 2 655641 ####[facility] (DEFAULT)[address] [place] [address] Lower Extremity w/ Contra st Righton [...] MD 10/11/23 4:31 pm Technologist: Jeanette LUKE [facility] Extra SSTon 10-11-2023 Tube Collected Yes Invalid Interpretation Code [facility] Comment on above: Performed By: #### 2 471804, 2697389395, 06663116, 1392327095, 1756090550, 6614917103, 0762116162, 2304786 ####[facility] (DEFAULT)[address] [place] [address] MAGR Intraoperative Recordon 10-11-2023 MAGR Intraoperative Record MAGR Intra-Op Record Summary Primary Physician: JOB AGUILAR DO Finalized Date/Time: 10/11/23 14:40:54 Pt. Name: ALICIA NGUYỄN/Sex: 1940 FEMALE Med Rec #: [id number] Physician: JOB AGUILAR DO Financial #: [id number] Pt. Type: I Room/Bed: [facility] Admit/Disch: 10/11/23 06:57:39 - Institution: Case Times [...] Role Performed Surgeon - Primary Anesthesiologist of Veterinary Dentist Record Time In 10/11/23 11:40:00 10/11/23 11:40:00 10/11/23 11:40:00 Time Out 10/11/23 12:48:00 10/11/23 12:53:00 10/11/23 12:53:00 Procedure Arthroscopy Knee(Right) Arthroscopy Knee(Right) Arthroscopy Knee(Right) Last Modified By: Sandra Shepard RN, Barbara RN Long, Barbara RN 10/11/23 12:55:35 10/11/23 12:55:35 10/11/23 12:55:35 Entry 4 Entry 5 Case Attendee Gloria Saldaña CST, CST, Lauren M CSFYessica CSFA Role Performed Scrub Personnel Audioprosthologist Time In 10/11/23 11:40:00 10/11/23 11:40:00 Time [...] Sheryl Dennis DO, Long, Barbara RN, Piotr FILM OR VIDEOTAPE EDITOR, Gloria MARTINEZ CSFA, Rina Muñoz CSFA Last [...] Met (O.80) Ye (more content not included)... [facility] MAGR PACU Recordon 3 MAGR PACU Record MAGR PACU Record [facility] Primary Physician: JOB AGUILAR DO Finalized Date/Time: 10/11/23 13:56:49 Pt. Name: ALICIA NGUYỄN/Sex: 1940 FEMALE Med Rec #: [id number] Physician: JOB AGUILAR DO Financial #: [id number] Pt. Type: D Room/Bed: [facility]/1 Admit/Disch: 10/11/23 06:57:39 - Institution: PACU Case Times MAGR Entry 1 In PACU I 10/11/23 12:55:00 Discharge from PACU 10/11/23 13:40:00 I Last Modified By: Radha Seo RN 10/11/23 13:56:45 Finalized By: Radha Seo RN Document Signatures Signed By: Radha Seo RN 10/11/23 [facility] 12-12-[facility]22 MAGR Preoperative Record MAGR Pre-Op Record Summary Primary Physician: JOB AGUILAR DO Finalized Date/Time: 10/11/23 12:17:03 Pt. Name: ALICIA NGUYỄN/Sex: 1940 FEMALE Med Rec #: [id number] Physician: JOB AGUILAR DO Financial #: [id number] Pt. Type: D Room/Bed: / Admit/Disch: 10/11/23 [...] consent correct. General Comments: Pt arrives to psw ambulatory. PT denies cp, sob, cough or flu like symptoms. PT denies pacemaker/defibillator or sleep apnea. Finalized By: Sandra Shepard RN Document Signatures Signed By: Sandra Shepard RN 10/11/23 12:17 [facility] Pharmacy Noteon 10-11-2023 Pharmacy Note The [...] on: 10/13/2023 09:39 EST] Jamal Butler Normal [facility] Sed Rateon 10-11-2023 Sed Rate 80 mm/hr High 0-20 [facility] Comment on above: Performed By: #### 2 246376, [id number], 36160146, 4664246124, 1191538624, 2637530879, 5064857581, 9873217 ####[facility] (DEFAULT)[address] [place] [address] CREATININEon 04-04-2023 Creatinine [Mass/Vol] 1.25 mg/dL Critically high 0.55-1.02 [facility] Comment on above: Performed By: #### C HEIDI #### [facility] [address] [place] [address] [address] Lolita Alvarado EGFR-AF ESTONIAN 49 mL/min/1.73m2 Critically low >=60 [facility] Comment on above: Performed By: #### C HEIDI #### [facility] [address] [place] [address] [address] Lolita Alvarado EGFR-NON AF ESTONIAN 41 mL/min/1.73m2 Critically low >=60 [facility] Comment on above: Performed By: #### C HEIDI #### [facility] [address] [address] [address] CHEST W CONon [...] by: RIGO WHITTAKER Date: 2023-04-04 16:18 Normal [facility] CT CHEST W CONon 12-26-2022 CT CHEST [...] by: RIGO WHITTAKER Date: 2022-12-26 09:16 Normal [facility] CREATININEon 12-23-2022 Creatinine [Mass/Vol] 0.85 mg/dL Normal 0.55-1.02 [facility] Comment on above: Performed By: #### C HEIDI #### [facility] [address] [place], [place] [address] Dr. Lolita Alvarado EGFR-AF ESTONIAN >60 Normal >=60 [facility] Comment on above: Performed By: #### C HEIDI #### [facility] [address] [place], [place] [address] Dr. Lolita Alvarado EGFR-NON AF ESTONIAN >60 Normal >=60 [facility] Comment on above: Performed By: #### C HEIDI #### [facility] [address] [place], [place] [address] Dr. Lolita Alvarado Glucose Glucometer (dC) [M ass/Vol]Ordered By: Santiago Otto on 11-01-2022 Glucose [Mass/Vol] 97 mg/dL [facility] Comment on above: Random Glucose Refer ence Range is dependent on time and content of last meal. Glucose of more than 200 mg/dL in a nonstressed, ambulatory subject supports the diagnosis of Diabetes Mellitus. Glucose Poct Glucometerson 1 01-02-2022 Glucose [Mass/Vol] 97 mg/dL Normal [facility] Comment on above: Result Comment: [place] om Glucose Reference Range is dependent on time and content of last meal. Glucose of more than 200 mg/dL in a nonstressed, ambulatory subject supports the diagnosis of Diabetes Mellitus. PERFORMED BY: [place] [address] PATHOLOGIST TREND INVESTIGATOR NEW MEDEIROS M.D. Performed By: #### G PROSPER #### Point of Care testing , PET tumor init tx strat sb-m ton 11-01-2022 PET tumor init tx strat sb-mt [facility] Main [address] [address] Nuclear Medicine Report Signed Patient: Alicia Nguyễn MR#: [id number] : 1940 Acct:[id number] Age/Sex: 82 / F ADM Date: 11/01/22 Loc: Room: Type: REG CLI Attending Dr: Santiago Otto MD Copies to: [...] Candi Leigh M.D.11/01/2022 1:32 PM Dictation Location: [place] [address] Transcribed By: [facility] 11/01/22 1332 Dictated By: Candi Leigh MD 11/01/22 1300 Signed By: 11/01/22 [address] [facility] [address] CHEST W CONon 10-24-2022 CT [...] RIGO WHITTAKER Date: 2022-10-23 22:21 Normal [facility] CREATININEon 10-23-2022 Creatinine [Mass/Vol] 1.08 mg/dL Critically high 0.55-1.02 [facility] Comment on above: Performed By: #### C HEIDI #### [facility] [address] [address] [address] Lolita Alvarado EGFR-AF ESTONIAN 59 mL/min/1.73m2 Critically low >=60 [facility] Comment on above: Performed By: #### C HEIDI #### [facility] [address] [place], [place] [address] Dr. Lolita Alvarado EGFR-NON AF ESTONIAN 48 mL/min/1.73m2 Critically low >=60 [facility] Comment on above: Performed By: #### C HEIDI #### [facility] [address] [address] [address] TSPINE WO CONon 2 CT TSPINE WO CON [...] spine. 3. No acute abnormality. Normal [facility] General Surgery Office/Clini c Noteon 09-18-2022 General [...] Cirrhosis of liver: Father. Heart disease: Mother. [facility] Comment on above: Result Comment: Elec [...] by: SHERYL SRINIVASAN Date: 2022-09-13 08:21 Normal [facility] Ambulatory Visit Summaryon 1 Ambulatory Visit Summary GOPIALICIA Yessiac :1940 Visit Date:08/29/2022 Ambulatory Visit Instructions Your [...] that you are currently receiving treatment for. Bigeminy BMI 26.0-26.9,adult Dark stools Edema History of gastritis History of TIA (transient ischemic attack) HTN (hypertension) IBS (irritable bowel syndrome) Insomnia Iron deficiency anemia Left leg DVT Lumbar scoliosis Osteopenia Positive fecal occult blood test Premature atrial beats Thoracic spinal stenosis Varicose veins of legs Venous insufficiency Normal [facility] Pathology Noteon 08-18-2022 Pathology Note [id number]#[id number]:127 Normal [facility] Outside Colonoscopyon 2021 Outside Colonoscopy [id number]#[id number]:127 Normal [facility] US NOLBERTO DOP LEG RTon 08-10-20 22 [...] by: BRAD GONZALEZ Date: 2022-08-10 15:05 Normal [facility] Lab Reportson 08-03-2022 Lab Reports [id number]#[id number]:127 Normal [facility] CBC AUTO DIFFon 08-02-2022 BASO # 0.0 103/ul Normal 0.0-0.1 [facility] Comment on above: Performed By: #### C BC #### [facility] [address] [address] [address] Lolita Alvarado Basophils/100 WBC (Bld) 0.3 % Normal 0.2-2.0 [facility] Comment on above: Performed By: #### C BC #### [facility] [address] [place] [address] Dr. Lolita Alvarado EO # 0.0 103/ul Normal 0.0-0.7 [facility] Comment on above: Performed By: #### C BC #### [facility] [address] [address] [address] Lolita Alvarado Eosinophils/100 WBC (Bld) 0.3 % Critically low 0.9-7.0 [facility] Comment on above: Performed By: #### C BC #### [facility] [address] [place] [address] Dr. Lolita Alvarado Erythrocyte distribution width (RBC) [Ratio] 13.3 % Normal 11.0-15.0 [facility] Comment on above: Performed By: #### C BC #### [facility] [address] [place] [address] Dr. Lolita Alvarado Hematocrit (Bld) [Volume fraction] 34.6 % Critically low 36.0-48.0 [facility] Comment on above: Performed By: #### C BC #### [facility] [address] [place] [address] Dr. Lolita Alvarado Hemoglobin (Bld) [Mass/Vol] 11.4 g/dL Critically low 12.0-16.0 [facility] Comment on above: Performed By: #### C BC #### [facility] [address] [place] [address] Dr. Lolita Alvarado IG # 0.04 10e3/ul Critically high 0.00-0.03 [facility] Comment on above: Performed By: #### C BC #### [facility] [address] [place] [address] Dr. Lolita Alvarado IG % 1.0 % Critically high 0.0-0.5 [facility] Comment on above: Performed By: #### C BC #### [facility] [address] [place] [address] Dr. Lolita Alvarado LYMPH # 1.2 103/ul Normal 1.2-3.8 [facility] Comment on above: Performed By: #### C BC #### [facility] [address] [place] [address] Dr. Lolita Alvarado Lymphocytes/100 WBC (Bld) 30.9 % Normal 20.5-60.0 [facility] Comment on above: Performed By: #### C BC #### [facility] [address] [place] [address] Dr. Lolita Alvarado MANUAL DIFF REQ NO Normal [facility] Comment on above: Performed By: #### C BC #### [facility] [address] [place] [address] Dr. Lolita Alvarado MCH (RBC) [Entitic mass] 31.0 pg Normal 26.7-34.0 [facility] Comment on above: Performed By: #### C BC #### [facility] [address] [place] [address] Dr. Loliat Alvarado MCHC (RBC) [Mass/Vol] 32.9 g/dL Normal 29.9-35.2 [facility] Comment on above: Performed By: #### C BC #### [facility] [address] [place] [address] Dr. Lolita Alvarado MCV (RBC) [Entitic vol] 94.0 fL Normal 81.0-99.0 [facility] Comment on above: Performed By: #### C BC #### [facility] [address] [place] [address] Dr. Lolita Alvarado MONO # 0.4 103/ul Normal 0.3-0.8 [facility] Comment on above: Performed By: #### C BC #### [facility] [address] [place] [address] Dr. Lolita Alvarado Monocytes/100 WBC (Bld) 10.6 % Normal 1.7-12.0 [facility] Comment on above: Performed By: #### C BC #### [facility] [address] [place] [address] Dr. Lolita Alvarado NEUT # 2.2 103/ul Normal 1.4-6.5 [facility] Comment on above: Performed By: #### C BC #### [facility] [address] [place] [address] Dr. Lolita Alvarado Neutrophils/100 WBC (Bld) 56.9 % Normal 43.0-75.0 [facility] Comment on above: Performed By: #### C BC #### [facility] [address] [place] [address] Dr. Lolita Alvarado Platelet mean volume (Bld) [Entitic vol] 8.1 fL Critically low 9.5-13.5 [facility] Comment on above: Performed By: #### C BC #### [facility] [address] [place] [address] Dr. Lolita Alvarado PLT 226 103/ul Normal 150-450 [facility] Comment on above: Performed By: #### C BC #### [facility] [address] [place] [address] Dr. Lolita Alvarado RBC 3.68 106/ul Critically low 4.20-5.40 [facility] Comment on above: Performed By: #### C BC #### [facility] [address] [place] [address] Dr. Lolita Alvarado WBC 3.9 103/ul Critically low 4.0-11.0 [facility] Comment on above: Performed By: #### C BC #### [facility] [address] [place] [address] Dr. Lolita Alvarado Covid-19 PCR ([facility])on 06-07 SARS-CoV-2 (COVID-19) RNA EDWIN+probe Ql (Unsp spec) Detected Critically abnormal NOT DETECTED [facility] Comment on above: Result Comment: This test is not yet approved or cleared by the [place] FDA. When there are no FDA-approved or cleared tests available, and other criteria are met, FDA can make tests available under an emergency access mechanism called an Emergency Use Authorization (EUA). The EUA for this test is supported by the Project Manager/Design Manager of Health and Human Service's (HHS's) declaration [...] used). Performed By: #### C BC #### [facility] [address] [place] [address] Dr. Lolita Alvarado Consent for Procedure/Surger yon 06-15-2022 Consent for Procedure/Surgery [id number]:[id number] Normal [facility] Ambulatory Visit Summaryon 0 06-13-2022 Ambulatory Visit [...] currently receiving treatment for. Jojo BMI 26.0-26.9,adult Edema History of gastritis History of TIA (transient ischemic attack) HTN (hypertension) IBS (irritable bowel syndrome) Insomnia Left leg DVT Lumbar scoliosis Osteopenia Premature atrial beats Thoracic spinal stenosis Varicose veins of legs Venous insufficiency Normal [facility] CBC AUTO DIFFon 06-02-2022 BASO # 0.0 103/ul Normal 0.0-0.1 [facility] Comment on above: Performed By: #### C BC #### [facility] [address] [place] [address] Dr. Lolita Alvarado Basophils/100 WBC (Bld) 0.4 % Normal 0.2-2.0 [facility] Comment on above: Performed By: #### C BC #### [facility] [address] [place] [address] Dr. Lolita Alvarado EO # 0.0 103/ul Normal 0.0-0.7 [facility] Comment on above: Performed By: #### C BC #### [facility] [address] [address] [address] Lolita Alvarado Eosinophils/100 WBC (Bld) 0.2 % Critically low 0.9-7.0 [facility] Comment on above: Performed By: #### C BC #### [facility] [address] [place] [address] Dr. Lolita Alvarado Erythrocyte distribution width (RBC) [Ratio] 12.8 % Normal 11.0-15.0 [facility] Comment on above: Performed By: #### C BC #### [facility] [address] [place] [address] Dr. Lolita Alvarado Hematocrit (Bld) [Volume fraction] 30.1 % Critically low 36.0-48.0 [facility] Comment on above: Performed By: #### C BC #### [facility] [address] [place] [address] Dr. Lolita Alvarado Hemoglobin (Bld) [Mass/Vol] 10.3 g/dL Critically low 12.0-16.0 [facility] Comment on above: Performed By: #### C BC #### [facility] [address] [place] [address] Dr. Lolita Alvarado IG # 0.02 10e3/ul Normal 0.00-0.03 [facility] Comment on above: Performed By: #### C BC #### [facility] [address] [place] [address] Dr. Lolita Alvarado IG % 0.4 % Normal 0.0-0.5 [facility] Comment on above: Performed By: #### C BC #### [facility] [address] [place] [address] Dr. Lolita Alvarado LYMPH # 0.7 103/ul Critically low 1.2-3.8 [facility] Comment on above: Performed By: #### C BC #### [facility] [address] [place] [address] Dr. Lolita Alvarado Lymphocytes/100 WBC (Bld) 14.9 % Critically low 20.5-60.0 [facility] Comment on above: Performed By: #### C BC #### [facility] [address] [place] [address] Dr. Lolita Alvarado MANUAL DIFF REQ NO Normal [facility] Comment on above: Performed By: #### C BC #### [facility] [address] [place] [address] Dr. Lolita Alvarado MCH (RBC) [Entitic mass] 33.6 pg Normal 26.7-34.0 [facility] Comment on above: Performed By: #### C BC #### [facility] [address] [place] [address] Dr. Lolita Alvarado MCHC (RBC) [Mass/Vol] 34.2 g/dL Normal 29.9-35.2 [facility] Comment on above: Performed By: #### C BC #### [facility] [address] [place] [address] Dr. Lolita Alvarado MCV (RBC) [Entitic vol] 98.0 fL Normal 81.0-99.0 [facility] Comment on above: Performed By: #### C BC #### [facility] [address] [place] [address] Dr. Lolita Alvarado MONO # 0.4 103/ul Normal 0.3-0.8 [facility] Comment on above: Performed By: #### C BC #### [facility] [address] [place] [address] Dr. Lolita Alvarado Monocytes/100 WBC (Bld) 9.0 % Normal 1.7-12.0 [facility] Comment on above: Performed By: #### C BC #### [facility] [address] [place] [address] Dr. Lolita Alvarado NEUT # 3.4 103/ul Normal 1.4-6.5 [facility] Comment on above: Performed By: #### C BC #### [facility] [address] [place] [address] Dr. Lolita Alvarado Neutrophils/100 WBC (Bld) 75.1 % Critically high 43.0-75.0 [facility] Comment on above: Performed By: #### C BC #### [facility] [address] [place] [address] Dr. Lolita Alvarado Platelet mean volume (Bld) [Entitic vol] 8.5 fL Critically low 9.5-13.5 [facility] Comment on above: Performed By: #### C BC #### [facility] [address] [place] [address] Dr. Lolita Alvarado PLT 229 103/ul Normal 150-450 [facility] Comment on above: Performed By: #### C BC #### [facility] [address] [place] [address] Dr. Lolita Alvarado RBC 3.07 106/ul Critically low 4.20-5.40 [facility] Comment on above: Performed By: #### C BC #### [facility] [address] [place] [address] Dr. Lolita Alvarado WBC 4.6 103/ul Normal 4.0-11.0 [facility] Comment on above: Performed By: #### C BC #### [facility] [address] [place] [address] Dr. Lolita Alvarado Physician Referralon 022 Physician Referral [id number]:[id number] Normal [facility] CBC AUTO DIFFon 06-01-2022 BASO # 0.0 103/ul Normal 0.0-0.1 [facility] Comment on above: Performed By: #### C BC #### [facility] [address] [place] [address] Dr. Lolita Alvarado Basophils/100 WBC (Bld) 0.7 % Normal 0.2-2.0 [facility] Comment on above: Performed By: #### C BC #### [facility] [address] [place] [address] Dr. Lolita Alvarado EO # 0.2 103/ul Normal 0.0-0.7 [facility] Comment on above: Performed By: #### C BC #### [facility] [address] [place] [address] Dr. Lolita Alvarado Eosinophils/100 WBC (Bld) 3.7 % Normal 0.9-7.0 [facility] Comment on above: Performed By: #### C BC #### [facility] [address] [place] [address] Dr. Lolita Alvarado Erythrocyte distribution width (RBC) [Ratio] 13.0 % Normal 11.0-15.0 [facility] Comment on above: Performed By: #### C BC #### [facility] [address] [place] [address] Dr. Lolita Alvarado Hematocrit (Bld) [Volume fraction] 32.2 % Critically low 36.0-48.0 [facility] Comment on above: Performed By: #### C BC #### [facility] [address] [place] [address] Dr. Lolita Alvarado Hemoglobin (Bld) [Mass/Vol] 10.6 g/dL Critically low 12.0-16.0 [facility] Comment on above: Performed By: #### C BC #### [facility] [address] [place] [address] Dr. Lolita Alvarado IG # 0.02 10e3/ul Normal 0.00-0.03 [facility] Comment on above: Performed By: #### C BC #### [facility] [address] [place] [address] Dr. Lolita Alvarado IG % 0.5 % Normal 0.0-0.5 [facility] Comment on above: Performed By: #### C BC #### [facility] [address] [place] [address] Dr. Lolita Alvarado LYMPH # 1.4 103/ul Normal 1.2-3.8 [facility] Comment on above: Performed By: #### C BC #### [facility] [address] [place] [address] Dr. Lolita Alvarado Lymphocytes/100 WBC (Bld) 32.4 % Normal 20.5-60.0 [facility] Comment on above: Performed By: #### C BC #### [facility] [address] [place] [address] Dr. Lolita Alvarado MANUAL DIFF REQ NO Normal [facility] Comment on above: Performed By: #### C BC #### [facility] [address] [place] [address] Dr. Lolita Alvarado MCH (RBC) [Entitic mass] 32.1 pg Normal 26.7-34.0 [facility] Comment on above: Performed By: #### C BC #### [facility] [address] [place] [address] Dr. Lolita Alvarado MCHC (RBC) [Mass/Vol] 32.9 g/dL Normal 29.9-35.2 [facility] Comment on above: Performed By: #### C BC #### [facility] [address] [address] [address] Lolita Alvarado MCV (RBC) [Entitic vol] 97.6 fL Normal 81.0-99.0 [facility] Comment on above: Performed By: #### C BC #### [facility] [address] [address] [address] Lolita Alvarado MONO # 0.6 103/ul Normal 0.3-0.8 [facility] Comment on above: Performed By: #### C BC #### [facility] [address] [place] [address] Dr. Lolita Alvarado Monocytes/100 WBC (Bld) 14.0 % Critically high 1.7-12.0 [facility] Comment on above: Performed By: #### C BC #### [facility] [address] [place] [address] Dr. Lolita Alvarado NEUT # 2.1 103/ul Normal 1.4-6.5 [facility] Comment on above: Performed By: #### C BC #### [facility] [address] [place] [address] Dr. Lolita Alvarado Neutrophils/100 WBC (Bld) 48.7 % Normal 43.0-75.0 [facility] Comment on above: Performed By: #### C BC #### [facility] [address] [place] [address] Dr. Lolita Alvarado Platelet mean volume (Bld) [Entitic vol] 8.2 fL Critically low 9.5-13.5 [facility] Comment on above: Performed By: #### C BC #### [facility] [address] [place] [address] Dr. Lolita Alvarado PLT 216 103/ul Normal 150-450 [facility] Comment on above: Performed By: #### C BC #### [facility] [address] [place] [address] Dr. Lolita Alvarado RBC 3.30 106/ul Critically low 4.20-5.40 [facility] Comment on above: Performed By: #### C BC #### [facility] [address] [place] [address] Dr. Lolita Alvarado WBC 4.3 103/ul Normal 4.0-11.0 [facility] Comment on above: Performed By: #### C BC #### [facility] [address] [place] [address] Dr. Lolita Alvarado OCC BLD IMMUNOASSAYon 2021 OCCULT BLOOD Positive Abnormal NEGATIVE [facility] Comment on above: Performed By: #### O ELADIO #### [facility] [address] [place] [address] Dr. Lolita Alvarado PROTIMEon 06-01-2022 INR Coag (PPP) [Relative time] 1.62 {INR} Normal [facility] Comment on above: Performed By: #### P T, PTT #### [facility] [address] [place] [address] Dr. Lolita Alvarado INR GUIDELINES SEE BELOW Normal [facility] Comment on above: Result Comment: TOSHA RED INR: 2.0 - 3.0 CONDITIONS NOT LISTED BELOW 2.5 - 3.5 FOR PROSTHETIC HEART VALVE REPLACEMENT 2.5 - 3.5 RECURRENT THROMBOSIS Performed By: #### P T, PTT #### [facility] [address] [place] [address] Dr. Lolita Alvarado PT Coag (PPP) [Time] 17.0 s Critically high 9.0-11.6 [facility] Comment on above: Performed By: #### P T, PTT #### [facility] [address] [place] [address] Dr. Lolita Alvarado PTTon 06-01-2022 aPTT Coag (Bld) [Time] 40.2 s Critically high 22.3-36.2 [facility] Comment on above: Performed By: #### P T, PTT #### [facility] [address] [place] [address] Dr. Lolita Alvarado Covid-19 PCR (CVDTB)on 05-06 SARS-CoV-2 (COVID-19) RNA EDWIN+probe Ql (Unsp spec) Not detected Normal NOT DETECTED [facility] Comment on above: Result Comment: This test is not yet approved or cleared by the [place] FDA. When there are no FDA-approved or cleared tests available, and other criteria are met, FDA can make tests available under an emergency access mechanism called an Emergency Use Authorization (EUA). The EUA for this test is supported by the Project Manager/Design Manager of Health and Human Service's (HHS's) declaration [...] SARS-CoV-2. Performed By: #### C [facility] #### [facility] [address] [place] [address] Dr. Lolita Alvarado US NOLBERTO DOP LEG [...] by: SHERYL SRINIVASAN Date: 2022-05-25 16:09 Normal [facility] US NOLBERTO DOP LEG LTon 04-28-20 US [...] and mid calf. There may be a electrician assistant extending to the region of the thrombosis. The remaining deep venous structures are patent. 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 This finding was placed in the stat call folder. 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 Electronically authenticated by: CHUCK TATUM Date: 2022-04-28 19:31 Normal [facility] POINT OF CARE GLUCOSEon 06- Glucose [Mass/Vol] 86 mg/dL Normal 74-106 [facility] Comment on above: Performed By: #### C BC #### [facility] [address] [address] [address] Lolita Alvarado Encounters Encounter Date Encounter Type Care Provider Facility Start: 11-16-2023 End: 11-16-2023 ambulatory JAMAL VIZCARRA Not Available Start: 10-26-2023 End: 10-26-2023 ambulatory JAMAL VIZCARRA Not Available Start: 10-11-2023 End: 10-16-2023 Evaluation and management of inpatient rBando Garcia Facility:[facility] Start: 10-10-2023 End: 10-10-2023 ambulatory JOB [...] Start: 11-01-2022 End: 11-01-2022 ambulatory Santiago Otto Facility:[facility] Start: 11-01-2022 End: 11-01-2022 ambulatory MD Santiago Otto Work Phone: [facility] Work Phone: Start: 11-01-2022 End: 11-01-2022 Patient encounter procedure MD Santiago Otto Work Phone: [facility] Work Phone: Start: 10-23-2022 End: 10-24-[address] SANTIAGO OTTO . Facility:[facility] Start: 10-16-2022 End: 10-17-2022 ambulatory RACHANA VIKY Facility:[facility] Start: 10-11-2022 End: 10-11-2022 ambulatory Rachana Kent Other [facility] [employer] Other Start: 10-11-2022 Telephone encounter Rachana Viky F PG [facility] Start: 09-12-2022 End: 09-13-[address] SANTIAGO OTTO . Facility: Start: 08-29-2022 End: 08-30-2022 ambulatory Arie BERGERON Facility:[facility] Start: 08-29-2022 End: 08-29-2022 Patient encounter procedure Arie BERGERON General Surgery [facility] Francesca Start: 08-22-2022 End: 08-23-2022 ambulatory BRAD CALDWELL Facility:[facility] Start: 08-16-2022 End: 08-17-2022 ambulatory Arie BERGERON Facility:CD:[id number] Start: 08-12-[address] ARIE BERGERON . Facil ity:[facility] Start: 08-10-2022 End: 08-11-[address] SANTIAGO OTTO . Facility:[facility] Start: 08-10-2022 Encounter for other preprocedural examination DR ARIE BERGERON . [facility] Start: 08-08-2022 End: 08-09-[address] ARIE BERGERON . Facility:[facility] Start: 08-08-2022 End: 08-09-2022 Encounter for other preprocedural examination DR ARIE BERGERON . Facility:[facility] Start: 08-02-2022 End: 08-03-[address] ARIE BERGERON . Facility:[facility] Start: 07-31-2022 End: 10-03-[address] IVANIA Moore Facility:[facility] Start: 07-27-[address] SANTIAGO OTTO . Facili ty:[facility] Start: 07-27-2022 End: 07-28-2022 ambulatory STARR ARROYO . Facility:[facility] Start: 07-04-2022 End: 07-04-[address] SANTIAGO OTTO . Facility:[facility] Start: 06-13-2022 End: 06-14-2022 ambulatory Arie R EFRAIN Facility: [facility] Start: 06-02-2022 [facility]ulatory [facility] Start: 06-02-2022 End: 06-03-[address] SANTIAGO [...] Cystopexy Arie NILL Extraction of cataract Louis el NILL Extraction of cataract [place] Payers Date Payer Category Payer Unknown [id number] 1961 Medicare [id number] 1959 Self-pay 1959 Unknown [id number] 1938 Unknown [id number] 2.16.8 40.1.056995.3.579.2.727 1938 Unknown [id number] 2.16.8 40.1.160535.3.579.2.727 1938 Unknown [id number] 2.16.8 40.1.582327.3.579.2.727 1938 Unknown [id number] 2.16.8 40.1.003220.3.579.2.727 1938 Unknown [id number] 2.16.84 0.1.557082.3.579.2.593 1938 Unknown [id number] 2.16.84 0.1.390845.3.579.2.593 1938 Unknown [id number] 2.16.84 0.1.047591.3.579.2.593 1938 Unknown [id number] 2.16.84 0.1.173481.3.579.2.593 1938 Unknown [id number] 2.16.84 0.1.078803.3.579.2.593 1938 Unknown [id number] 2.16.84 0.1.174694.3.579.2.593 1938 Unknown [id number] 2.16.84 0.1.970518.3.579.2.593 1938 Unknown [id number] 2.16.84 0.1.424481.3.579.2.593 1938 Unknown [id number] 2.16.84 0.1.989061.3.579.2.593 1938 Unknown [id number] 2.16.84 0.1.375261.3.579.2.593 1938 Unknown [id number] 2.16.84 0.1.062416.3.579.2.593 1938 Unknown [id number] 2.16.84 0.1.365219.3.579.2.593 1938 Unknown [id number] 2.16.84 0.1.640423.3.579.2.593 1938 Unknown [id number] 2.16.84 0.1.596889.3.579.2.593 1938 Unknown [id number] 2.16.84 0.1.124916.3.579.2.593 1938 Unknown [id number] 2.16.84 0.1.881879.3.579.2.593 1938 Unknown [id number] 2.16.84 0.1.506335.3.579.2.593 1938 Unknown [id number] 2.16.84 0.1.815846.3.579.2.593 1938 Unknown [id number] 2.16.84 0.1.265982.3.579.2.593 1938 Unknown [id number] 2.16.84 0.1.068699.3.579.2.593 1938 Unknown [id number] 2.16.84 0.1.840454.3.579.2.593 1938 Unknown [id number] 2.16.84 0.1.739387.3.579.2.593 1938 Unknown [id number] 2.16.84 0.1.974670.3.579.2.593 1938 Unknown [id number] 2.16.84 0.1.020884.3.579.2.593 1938 Unknown [id number] 2.16.84 0.1.620989.3.579.2.593 1938 Unknown [id number] 2.16.84 0.1.878998.3.579.2.593 1938 Unknown [id number] 2.16.84 0.1.267105.3.579.2.593 1938 Unknown [id number] 2.16.84 0.1.462965.3.579.2.593 1938 Unknown [id number] 2.16.8 40.1.185283.3.579.2.718 1938 Unknown [id number] 2.16.84 0.1.848427.3.579.2.1259 1938 Unknown [id number] 2.16.840 .1.339468.3.579.2.1259 1938 Unknown [id number] 2.16.840 .1.822169.3.579.2.1259 1938 Unknown [id number] 2.16.840 .1.389126.3.579.2.1259 1938 Unknown [id number] 2.16.840 .1.494313.3.579.2.1259 Medicare Medicare Outpatient [id number] Unknown [id number] 2.16.8 40.1.225536.3.579.2.531 Social History Date Type Detail Facility Start: 06-13-2022 Tobacco smoking status Never s moked tobacco (finding) [facility] Tobacco smoking status Never [facility] Sex Assigned At Female [facility] Start: 1940 Sex Assigned At Female F [facility] Clinical Notes 06-01-2022 to 10-17-2023 Note Date & Type Note Facility 10-17-2023 Note [id number]#1.00[facility] 10-17-2023 Note [id number] D#1.00[facility] 10-17-2023 Note [id number] [place] [address] 10-16-2023 Note Education Materials POST OPERATIVE TOTAL [...] #8 follow up in office with physician dental assistant medical assistant Joe Vizcarra as scheduled #9 [facility] home physical therapy will be contacting you within the next 24 hours to set up home therapy visits #11 You have been given a prescription for [place], norco is narcotic, narcotics are addictive. If you feel you have problems with addiction please feel free to contact Dr. Aguilar, your family physician, or proceed to the nearest hospital's emergency services department. [facility] 10-16-2023 Note [facility] Clinical Discharge Summary PERSON INFORMATION Name ALICIA NGUYỄN Age 83 Years 1940 Sex FEMALE Language Prydeinig PCP SANTIAGO OTTO Marital Status Phone Med Service Med/Surg Acct# Arrival 10/11/2023 06:57:39 Visit Reason SURGERY - RIGHT KNEE SCOPE Acuity LOS 005 01:37 Address: [address] [place] [id number] Comment: PROVIDER INFORMATION VITALS INFORMATION Vital Sign [...] range between ( 1.3 and 2.9 ) [place] Abs#: 0.8 x103/mcL -- Normal range between ( 0.0 and 0.8 ) Auto Baso %: 0.2 % -- Normal range between ( 0.2 and 2.0 ) Auto [place] %: 9 % -- Normal range between [...] ( 32 and (more content not included)... [facility] 10-17-2022 Note PROCEDURE: XR SCAPUL A RT COMPARISON: None. HISTORY: Disorder of bone FINDINGS: BONES:No acute fracture or dislocation. Subchondral cystic changes of the greater tuberosity and humeral neck SOFT TISSUES:Negative. No visible soft tissue swelling. EFFUSION:None visible. OTHER: Aortic atherosclerosis IMPRESSION: No acute abnormality Electronically authenticated by: SHERYL SRINIVASAN Date: 2022-10-17 07:20 [facility] 08-16-2022 Note OPERATIVE NOTE OPERATION DATE: 08/16/2022 [...] good condition. CC: Santiago Otto M.D. [facility] 07-27-2022 Note CONSULTATION PROCEDURE DATE: 07/27/2022 PRE [...] be followed up in the office. [facility] 07-27-2022 Note CONSULTATION CONSULTATION DATE: 07/27/2022 HISTORY [...] agrees with the plan of care. [facility] 06-13-2022 Note Chief Complaint consultation for anemia [...] SBE prophylaxis; last EGD and colonoscopy in 2015; normal stomach; colon with diverticulosis only completed [...] disease: Mother. [facility] Comment on above: Result Comment: Elec tronically [...] Patient is in agreement to this. [facility] 06-01-2022 Note CONSULTATION PROCEDURE DATE: 06/01/2022 PREOPERATIVE [...] and patient tolerated the procedure well. [facility] Evaluation + Plan note No data available for this section [facility] [place] Evaluation note No Information [email or web address] Other Evaluation note No assessment information [facility] Work Phone: History general Narrative - Reported Type Medical History appendectomy Medical History Arthritis Medical History cataracts Medical History diabetes mallitus Medical History gall bladder disease Medical History hypertension Medical History thyroid disease Surgical History appendectomy Surgical History bladder suspension, unspecified Surgical History gall bladder Surgical History knee replacement Hospitalization History see surgical hx [facility] Discharge instructions No data available for this section General Surgery [place] Progress note No data available for this section General [facility] [place] Summary Purpose Family History No Family History [...] and content) DATE CREATED AUTHOR 09/18/2022 [facility] DATE CREATED AUTHOR AUTHOR'S ORGANIZ ATION 11/14/2022 [facility] DATE CREATED AUTHOR AUTHOR'S ORGANIZ ATION 04/13/2023 [facility] DATE CREATED AUTHOR AUTHOR'S ORGANIZ ATION 11/02/2023 [facility] DATE CREATED AUTHOR AUTHOR'S ORGANIZ ATION 11/17/2023 [facility] EPIC REASON FOR VISIT [...] BE BASED ON THE PRIMARY CLINICAL RECORDS. [facility]. provides no warranty or guarantee of the accuracy or completeness of information in this document.
== END 2023-12-14 10:34 | disposition home or self-care (01) ==
LOC: LAB 10:33
PROVIDERS: PCP Family Medicine; Visit Provider Family Medicine
DX: D64.9 Anemia, unspecified (principal)
CPT/HCPCS: 36415; 85025

== ENCOUNTER 2023-12-24 14:30 | Outpatient (REF) | payer MEDICARE, SELFPAY ==
--- OUTSIDE RECORDS SUMMARY | 2023-12-25 11:24 | XMS_ITS | CCD ---
Author Name Unknown Address [address] [facility] [facility] [address] [place] [address] Organization [facility] Care Team Providers Care Pulmonology Technician Name Role Phone Santiago Otto Primary Care Physician Arie BERGERON Attending Unavailable Kelvin PROVIDERSantiago Referring Unavailabl e Arie BERGERON Attending Unavailable Arie BERGERON Attending Unavailable Arie BERGERON Attending Unavailable Rachana Kent Unavailable MD Santiago Otto Primary Care Provider [phone] MD Santiago Otto Attending Provider Santiago Otto Attending Santiago Boyer Primary Care [...] RACHANA Admitting Unavailable BLADES, RACHANA Attending Unavailable SOLEN, DR SHERYL Navarrete Consulting Unavailable HOY ., DR HENDERSON Primary Care Unavailable ZIEBER, DR RIGO Love Consulting Unavailable RACHANA KENT Consulting Unavailable GARCIA ., DR IVANIA Ledezma Admitting Unavailable GARCIA ., DR IVANIA Ledezma Attending Unavailable GARCIA ., DR IVANIA Ledezma Consulting Unavailable HOY ., DR HENDERSON Primary Care Unavailable RAUL RICHARD Consulting Unavailable GARCIA, DR PARISI Consulting Unavailable RAROYO ., STARR Consulting Unavailable GARCIA ., DR [...] Unavailable HOY ., DR HENDERSON Admalina Unavailable ARROYO ., STARR Admitting Unavailable ARROYO ., STARR Attending Unavailable HOY ., DR HENDERSON Primary Care Unavailable ARROYO ., STARR Consulting Unavailable Brando Garcia Admitting Unavailable Brando Garcia Attending Unavailable SANTIAGO OTTO Primary Care Unavailable Sheryl Dennis Consulting Unavailable JAMAL VIZCARRA Attending Unavailable JAMAL VIZCARRA Attending Unavailable JAMAL VIZCARRA Attending Unavailable JAMAL VIZCARRA Referring Unavailable JR. AGUILAR GEORGE C Attending Unavaila JAMAL Moreno Attending Unavailable Santiago Otto MD Primary Care Provider [phone] Allergies Allergy Classification Reported Allergen(s) Allergy Type Date of Onset Reaction(s) Facility (1 source) No Known Medication Allergies; Translations: [No Known Medication Allergies] Propensity to adverse reactions (disorder) [facility] Repository Medications Current Medications Medication Drug Class(es) Dates Sig (Normalized) Sig (Original) 8 hr acetaminophen 650 mg extended release oral tablet (2 sources) acetaminophen (Tylenol 8 Hour Arthritis Pain) 650 MG ER tablet every 8 (eight) hours. 0 Active alendronic acid 70 mg oral tablet (4 sources) Bisphosphonate Start: 03-04-2023 alendronate (Fosamax) 70 MG tablet Start: 06-08-2022 [facility] Fosamax 70 mg oral tablet 70 mg = 1 tab(s), Oral, qWeek, Refills(s) 0 Start Date: 06/08/22 Status: Ordered amLODIPine 5 mg oral tablet (4 sources) Dihydropyridine Calcium Channel Betsy Start: 06-16-2023 amLODIPine (Norvasc) 5 MG tablet Start: 06-08-2022 take 2 tablets by mo [facility] once daily amLODIPine 5 mg Tab 10 mg = 2 tab(s), Oral, Daily, Refills(s) 0 Start Date: 06/08/22 Status: Ordered amLODIPine Besyl ate 5 MG Oral for 90 Days Active aspirin 81 mg delayed release oral tablet (3 sources) Platelet Aggregation Inhibitor, Nonsteroidal Anti-inflammatory Drug Start: 06-08-2022 take 1 tablet by mouth once daily aspirin 81 mg Oral EC Tab 81 mg = 1 tab(s), Oral, Daily, Refills(s) 0 Start Date: 06/08/22 Status: Ordered aspirin 81 MG ch ewable tablet 1 (one) time each day at the same time. 0 Active calcium carbonate 1500 mg oral tablet (1 source) Start: 06-08-2022 calcium (as carbonate) 600 mg oral tablet 1,200 mg = 2 tab(s), Oral, Daily, Refills(s) 0 Start Date: 06/08/22 Status: Ordered cetirizine hydrochloride 10 mg chewable tablet (3 sources) Histamine-1 Receptor Antagonist cetirizine (ZyrTEC) 10 MG chewable tablet Chew Daily 0 Active take 1 tablet by mouth once gurmeet y ZyrTEC 10 MG 1 tablet Orally Once a day Active Osteo Bi-Flex (1 source) Start: 06-08-2022 take 1 tablet by mouth once daily Osteo Bi-Flex 1 tab(s), Oral, Daily, Refill(s) 0 Start Date: 06/08/22 Status: Ordered [facility] E Oil 45 MG/0.25ML oil (2 sources) Start: 10-09-2022 [facility] E Oil 45 MG/0.25ML oil USE 1 ML TOPICALLY ONCE DAILY FOR 30 DAYS 0 10/09/2022 Active cyclobenzaprine hydrochloride 10 mg oral tablet (1 [...] Refills(s) 0 Start Date: 06/08/22 Status: Ordered DULoxetine 30 mg delayed release oral capsule (2 sources) Serotonin and Norepinephrine Reuptake Inhibitor take 1 capsule by mouth in the morning DULoxetine (Cymbalta) [address] capsule Take 30 mg by mouth in the morning and 30 mg before bedtime. Do not crush or chew. . 0 Active ferrous sulfate (1 source) take 1 tablet by mouth twice daily Ferrous Sulfate 325 (65 Fe) MG TAKE 1 TABLET BY MOUTH TWICE A DAY Oral for 30 Days Active levothyroxine sodium 0.05 mg oral tablet (4 sources) l-Thyroxine Start: 06-16-2023 levothyroxine (Synthroid, Levoxyl) 50 MCG tablet Start: 06-08-2022 take 1 tablet by robert th once daily levothyroxine 50 mcg (0.05 mg) [...] times a day for 7 days Active metoprolol tartrate 50 mg oral tablet (4 sources) beta-Adrenergic Betsy Start: metoprolol tartrate (Lopressor) 50 MG tablet Start: 06-08-2022 Metoprolol tar trate 50 mg Tab as directed, Refills(s) 0 Start Date: 06/08/22 Status: Ordered Metoprolol Tartr ate 50 MG Oral for 90 Days Active nitroglycerin 0.4 mg sublingual tablet (1 source) Nitrate Vasodilator Start: 06-08-2022 nitroglycerin 0.4 mg sublingual Tab 0.4 mg = 1 tab(s), SubLingual, q5min, PRN for chest pain, Refills(s) 0 Start Date: 06/08/22 Status: Ordered omeprazole 20 mg delayed release oral capsule (4 sources) Proton Pump Inhibitor Start: 06-08-2022 take 1 capsule by mouth twice daily omeprazole 20 mg Cap-DR 20 mg = 1 cap(s), Oral, BID, Refills(s) 0 Start Date: 06/08/22 Status: Ordered omeprazole (PriL OSEC) [address] capsule 1 (one) time each day at the same time. 0 Active petrolatum 0.41 mg/mg topical ointment (1 source) [...] (Original) triamcinolone acetonide 1 mg/ml topical cream (3 sources) Corticosteroid Start: 06-08-2022 triamcinolone Top 0.1% Crm 1 dano, Topical, BID, Refill(s) 0 Start Date: 06/08/22 Status: Ordered triamcinolone (K enalog) 0.1 % cream Apply topically 2 (two) times a day 0 Active Problems Active Problems Problem Classification Problem Date [...] codes; unclassified (1 source) Insomnia 06-08-2022 Episodic Residual codes; unclassified (2 sources) History of arthroscopy of knee joint; Translations: [Other specified postprocedural states] 12-13-2023 Episodic Spondylosis; intervertebral disc disorders; other back [...] Onset: 08-24-2022 Episodic Other aftercare (1 source) 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; Translations: [PENITENTIARY CURRENT USE OF ASPIRIN] Onset: 08-24-2022 Episodic Other aftercare (1 source) Other nursing home (current) drug therapy; Translations: [OTH PENITENTIARY CURRENT DRUG THERAPY] Onset: 05-01-2022 Episodic Other [...] Coding Summaryon 10-22-2023 Coding Summary HTMLBase 64 PthcddgbGKk9uDs+PGhlYWQ+PE1FV BTkN57jcCTuyA6vI9SVBQrUEhmkDV EVZWcMBmVglnFmLA1wcANuDLVb IC8+CL8dMERcSllbxVSrc4C1yWR9P 76grw2bNCpslYL2BNIxDxAnrirsu8 wblTp4WXryItjhWzDe CSEfqA73IFI9bX52Pn02pUBzqUAew 1cxqBw1GnGrRUYiGCU5lAjiSPuol0 ToTIAtB45zjSZjq9H7 YUKpnRmmtNCgHcFiuHB5tR0vDZojo mpcc4vsunjcUyh8ke48lHZgz5B6tJ Y7T6KzkuN4KSOayUMm KdgnsMOMkZ2ndpczy5ejewqwOyYfL INnDIw6ZJn2QQGohLuxTxBtJD55PH I9XFInetDtM0RzYBPe xForCmX3w6K6Bi2TB2IUExhvC2WXB UFSWTwvdGQ+KO57ry40X4NqDjuvDi q8MCCvVWE8uYO4xD0f XPFeVGgzg4A1lNA2Q9QhdhFexy4sq 4bzWJYyQZthL30uxSRwv7C6OKIphF A4RRHhwDyeDgSnhN08 Oyc+OLVltRmlt4ByShixj6qmf4sao Nk8XfvmFBOpmaHyoYjqCFT5d2XeSb 3rVNGmfNT6nSI3jD2o VtEfTaV0TJrcO573DvHhvIKrAgmyM 81nA5JoyUY+WOEuZzw1BDUqaFeqAM 7iI5IuYXDigumaaCHu xYvyFT9kFFCqhdztCBKaxT9gJKRvP 5u3PzIaZoE8AJksA7JdABMliboiEy 06mY3gBfCiKsP1FEil C6CrnmW0DJLehDYlCDkhHIE2I83pv 0W8LEHvEVVbEQV1pZT2lE4ejMpajb ogbGVmdDsgdmVydGlj OQhbAExnX663BISgnPbcWbKyGLzlL yBEYXRlOiAgMTIvMTgvMjAyMzwvdG Q+UJYqEKN8kKyfACTh nFCmOBjgSe2tvQsbrWqjQZ4xRGNfd xonZKYygG2jQVAcfJWqlJrmUI0dZD Hvangeo012IiCcLJW2 ZWCboRPuA2NssI1eCsPgBDAgBKOiE 2XnyFYiWZngC691RLwoZpC2NOMiwj YqV5CfJDQigGrwZgH5 z5Z5Qu2Rm9ExgptbT1WghUJhMqMwN tapHTh2R8DxGleatQK+LY72EGRrIV 07SCt1PVJ1aClfUOtf LTMvI3UwcC3xOwFsCYPfSVUhXle+P HRhYmxlIHdpZHRoPScxMDAlJyBzdH uoNK8mQx9kSQZpEQWb tKzvcMKuScQtb1rnXQDtXVkzYD8gf PxbF8TwyJZ3IPJom7a6Wr82D78gJ0 JvdXA+SPKucCW4uIS0 wE2tOfKkDeJ7OHqwZ758FeQvvOKrS shry5czw3pffDa9IgZ1YUIrfdUmeZ kbCAL4a6LaKr40Y12p ZMbmBDHmLNLlKCZlGOGnbZmbfv2sr G9wIi8+LMDexGU7nFG0sE8xFqCzTq J1PBlxJ132FdPqeIUs Culnx0juq5ksoXf6KrPfTIGcstWxl CfaHOM1i5QkJb87W9AhjRoth8AoDu b6yh81bPTef4W3cND6 M0AjXWOxwqbsqLWhzUcoPK3vJXOco lwzATGvrQ2kVMNuW2l8LmKiZqS4HO wpK8DhlnH6YSSvnJHp KCNgvWKNjL5akqgss5llvyclXtJfP IYvXGm0JPg9JOLcgJiuCuPnXCQ3Kl D3WTS2qLTocO7ckZhp kswdrG8mFwz+KOW6fNReoYVRHD4wE jwvdGQ+KTHlLLH9vVmnJWaiTAQibZ 7kLWPdV6o1ThYkFyH5 KOueE2ItnnK3YYHduDSzBBOoxGAKc Z5jkikxs1jxahaoOyMwSQTqFWp8WW k7EZYtlNmiYlTdXBG7 ZvH3EXG5qQRwvE3zwUrbcqiulV6uX yc+MvdfeYxtSAD5KSu6R6EyXum5CV UvbEwaIK4ywQDvGQud As1ddIdzqSgsMU3qMIYjsqcfd122W xXlf5ftGLDyvNNeHAkcSCU1N40mi1 O9EZIfTDAqODC5mLO3 qK2vlQiwevxqjMDpcEqxqvQawSamK GcgPJjhT038YAWuwNyiGpVmICq9H9 BfZgp5PGLetByjUJ1j fRTwUCzqPz0lvRsljBxmBB5qMGYme uzeh173ApTvx4mtXNEkrAEuXYnhZJ X3T27ni5A3VHYsJOWs CNA5rZS5zD7jlQczgsixlIHueDmxa dMssXulAPqzZEohT558URPkpJxwCk XukTt8H9YrTfd8NPYx yLacCS1kuKIeJLrpZs1yoUmivLtoP Z3rFIEbsxwjh762QiCwm9xuWYZncQ FyKTafJKL9D27oc4K8 GARuONTpMEP8xUO1hT4qtEmzmtnak LBuqZjuciUnyFiaPVqdLQedV851NG RvcDsnPlBhdGllbnQg RStiAMc8L7PtEiitbOE+JY83ZPKfO E08bQZlrENox2zvdQm8OsClTFZvIR P0xXbjDGquh6InHHJo F10lhRIfl3X8RMQyyDuvrNGhHjOle AJ7bL1eDDtctoxvu5doxoehDkxcs0 smlj64jH86E49wXIod YLKsYVJeTYGxVSLbuAtggo8baD0wR i8+BYIndXU6tPG2jM2xJBBnKjL9QK izG033PkJqwRRvLouy a9hqw6azkAg8HyS2EVFldkMsdNzoZ WM5z1UrJg10L44nYBaeGYXtNYPeTP BoOMPlvUfelb6ezJ5i Ii8+BRZvjHN2zFB1cN7jEjHcXkS0H IweG867IpTupUPoGllxN99eB9WxjQ A+KDInAhl0TUHtuUrc UH0tdWUkKYqvJe5iLEH9FkKtFoMbS BsjO9QbFPFyujkpfrgjwEV4EZEkOW FizZ89Yt8srCnvOOXu nERSsN4oevtyy8bpaiqeVcGsDSDnI Nd8KLc2YZOyjQvdGgHrVLZ5EiD9IZ W7fOTkzY6bcGyiiviw cJ3aK1GrOKCzykzqNm00zR7uZiPuQ dO4ZKwbMaw+UkFJRlNOSURFUiwgTU FSWSBBTElDRTwvdGQ+ PUDcPNT4rXyiHWjsSNQyaB3qAFOpC 4a4EcRnRcB3XGknP3NiSLGqnlwgZa 93xJ6vPqGlDvO8GAhw D9AlvqG3OZNwrVJaZZdiFYW4N26hr 0W2VHXiLQLfBOK1gGL6yV8wsJvfpl ogbGVmdDsgdmVydGlj MVmnETmiM156RAIyzLroSmD9IxHqZ nX9Rxu1S5QrWev0QMAvwFncYF3ipA DjYRqoXe7qiMhyzTvl OF2pVLLhzghnPLZaiH3iUVLumJCmn IueHB9mQXFhcxwve621BcRuVZN2BU UnmSRxM1AwhU1zCnWy KBGvDWDzZ9SjsKWhWAcmI608AOnfR uD0FTDfacNrO4HiMZZvrBnqXmM4s0 J2Cp39YAAKLZBdacoo dGQ+LQKlBEJ2oHjdRFcsGJVqfG6tT IEjF1d6UnAdMdY5ANqcW5ReONWlpi wiHw57zO3oOyVvAtZ2 SFcdX9IwryH4TZYzpKJpXRgfKHA1Y 38ar1I9CEPwMRHaBCU8xUA2wJ8voO lnbjogbGVmdDsgdmVy uVnzZBqkYSfoV822DXKuoCzbWiSMX UFMRTwvdGQ+BGMlGNL0mKxkPLybHN TkqP9wZELoN0f5BiHp ZdM0IBauK9BkMBShdjvjEn12mN4wF oUbBdX1OCpaA5NyxrK6PFMziPZiCC yfWYS7O83vf6G4AZNe XBXzKAB5aQU3sO5kgBhddisamCSrs AczifQdmNpzBSikVFgmU917JSCzfX hwBqkotOJ7hCBvfYwx dGQ+CN99xh12X7LbAhrfLzl9MQQhC RQ9nCK8aN5rLFDxKPxcu5N8mJZ9W5 DncqZvgn0dq2clUVYc EUvrI50jcKRhi1Q5XWSfjBO1KMGch YnhRtQjzH79Gjg+BIQksAhyb0AjWy lcm3bdx6rbtNj9FqQe CFKhyoKohXweKCP1l8FfOv68U04jP HbfLIZaQTSqDSZzOUKuwWszex2ozR 9wIi8+JTCdnQI6iDC4 iN4sUwQaIpT7XHjiH259HuHdgEOzJ hqfx1zxp1mpzKh9RuWtOANiyhXezB cpRDJ8x8WrIm89R7Rc pVgom9UaLvi5eb51iEAsm1B2qVA8K 3JnUKLxwwpxsSNqhColOS6aMFEnps gqGIZpcA8iNUIfN9p0 IvRvZoT4JPhpG4UqhqU9MRRfmBLcA MWqbSQTmT9spcvqi1pcfnmpUsBdNX AvTAa7ZBb6XMZmdUsk HlNmLAJ5LxB6ZCZ5eXKjnW9upIgkf eatxS9oBer+XOy9r2bmvTAzZV2odM S1ZS26AY25tKFfy5L9 bZF5Z9NzCQJapmrvccqmkWA5HDQvI CXpmX93Rz3efIacRf0uBHAsXRX1CZ XcfPQfY9CicS7zRlQn WJQwZGOnM9KjwKPqMZmrK025UAzvI jP9LBWwnxDxL9EzQIGodFztXlC4m4 N0Ei7JLT25XT64YS40 nONjp0T7wWK7Y5AiPHNqtqmtjapwf GH0JGTkBCDrfO31Zj9ahTizMa2uED QcXPU9YFUitQQrJ1Ly qQ8tUpMoJDOrRQGnC0HjyRMrEExgB 278LBfuEaK8IEPwpqNbZ1SvNVVvoK tzMbQ2s0U7Gw6YJi98 BM54XJ16jLAjw1S8tTL6X6EcWSEtc kbixyeyuVJ4TSDxSCDhjB77Ck5leX zyTo7eMUWxCAL1YUGs rTYzU3FxjM7gTdEhHCKsEBCpU4Hsu TYgHXwpR168REptCtT5VDLhhnVpC8 CyISPwnUbzHnQ6k1Y6 Tk7SOXpstvc3Z2OpAexcyGT+PC90Y ATdXH67wETnsZWgn3fflYl3SnHdTT LcOKP6wIufGKrvy3Ea ZXI (more content not included)... Normal [facility] C Bloodon 10-18-2023 C Blood No growth at 5 Days Normal [facility] Comment on above: Performed By: #### 2 [id number], [id number] #### [facility] (DEFAULT) [address] [place] [address] Consent Formson 10-17-2023 Consent Forms [id number]#1.00[facility] Outside Recordson 10-17-2023 Outside Records [id number]#1.00[facility] Provider Orderson 10-17-2023 Provider Orders [id number]#1.00[facility] Telemetry Stripson Telemetry Strips [id number]#1.00[facility] Therapeutic Documentation on 10-16-2023 Therapeutic Documentation [id number]#1.00[facility] C Bloodon 10-16-2023 C Blood patient went to CAT scan Nurse from [address] [place] [address] will call when patient is back to her room @1440 nabil No growth at 5 Days [facility] Comment on above: Performed By: #### 6 [id number] ####[facility] (DEFAULT)[address] [place] [address] CRPon 10-16-2023 CRP 3.1 mg/dL High <=0.5 [facility] Comment on above: Performed By: #### 2 [id number], [id number] #### [facility] (DEFAULT) [address] [place] [address] Inpatient Patient Summaryon 10-16-2023 Inpatient Patient Summary [address] [address] Patient Discharge Instructions Name: ALICIA NGUYỄN : 1940 Patient Address: [address] [place] [address] Primary Care Provider: Name: SANTIAGO OTTO After you are discharged if you find you have any questions, please, call [phone] ext [phone] to speak to a nurse. The Pharmacy at [facility] is open Sunday through Sunday [...] alcohol and/or drug addiction problems; contact the [facility] 28/05 Crisis Hotline -Text 9PXNI to 500802. If you received any narcotics, sedation, or [...] business decisions or sign any legal documents [facility] would like to thank you for allowing us to assist you with your healthcare needs. The following includes patient education materials and information regarding your injury/illness. ALICIA NGUYỄN ALICE has been given the following list of follow-up instructions, prescriptions, and patient education materials: Follow-up Instructions With: Address: When: JOB AGUILAR DO [address] [facility] [address] [place] [address] Within 10 to 12 days Comments: orthopedic follow up With: Address: When: Jamal Vizcarra [address] [place] [address], [address] [place] [address] Business (1) 10/26/2023 10:30 AM [...] included)... 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 Reviewed regimen upon discharge which is appropriate and correct. Did not marriage and family counselor patient is going to jail. [Electronically Signed on: 10/16/2023 11:12 EST] Jamal Butler [Verified on: 10/16/2023 11:12 EST] Jamal Butler Normal [facility] Sed Rateon 10-16-2023 Sed Rate 83 mm/hr High 0-20 [facility] Comment on above: Performed By: #### 2 [id number], [id number] #### [facility] (DEFAULT) [address] [place] [address] .Auto Diff 1on 10-15-2023 Auto [place] % 9 % Normal -12 [facility] Comment on above: Performed By: #### 2 [id number], [id number], [id number], [id number], [id number] #### [facility] (DEFAULT) [address] [place] [address] Baso Abs# 0.0 x10 Normal 0.0-0.2 [facility] Comment on above: Performed By: #### 2 [id number], [id number], [id number], [id number], [id number] #### [facility] (DEFAULT) [address] [place] [address] Basophils/100 WBC (Bld) 0.2 % Normal 0.2-2.0 [facility] Comment on above: Performed By: #### 2 [id number], [id number], [id number], [id number], [id number] #### [facility] (DEFAULT) [address] [place] [address] Eos Abs# 0.1 x10 Normal 0.0-0.4 [facility] Comment on above: Performed By: #### 2 190811, [id number], [id number], [id number], [id number] #### [facility] (DEFAULT) [address] [place] [address] Eosinophils/100 WBC (Bld) 0.8 % Low 0.9-4.0 [facility] Comment on above: Performed By: #### 2 457055, [id number], [id number], [id number], [id number] #### [facility] (DEFAULT) [address] [place] [address] 20003 Lymph Abs# 1.1 x10 Low 1.3-2.9 [facility] Comment on above: Performed By: #### 2 [id number], [id number], [id number], [id number], [id number] #### [facility] (DEFAULT) [address] [place] [address]83 Lymphocytes/100 WBC (Bld) 13 % Low 14-48 [facility] Comment on above: Performed By: #### 2 134910, [id number], [id number], [id number], [id number] #### [facility] (DEFAULT) [address] [place] [address] [place] Abs# 0.8 x10 Normal 0.0-0.8 [facility] Comment on above: Performed By: #### 2 960999, [id number], [id number], [id number], [id number] #### [facility] (DEFAULT) [address] [place] [address] Neut Abs# 6.5 x10 Normal 1.5-9.2 [facility] Comment on above: Performed By: #### 2 820097, [id number], [id number], [id number], [id number] #### [facility] (DEFAULT) [address] [place] [address] Neutrophils/100 WBC (Bld) 76 % Normal 44-88 [facility] Comment on above: Performed By: #### 2 [id number], [id number], [id number], [id number], [id number] #### [facility] (DEFAULT) [address] [place] [address] BMP Standardon 10-15-2023 Breakpoint Chem Normal [facility] Comment on above: Performed By: #### 2 144270, [id number], [id number], [id number], [id number] #### [facility] (DEFAULT) [address] [place] [address] eGFR Non AA >60 Invalid Interpretation Code [facility] Comment on above: Performed By: #### 2 [id number], [id number], [id number], [id number], [id number] #### [facility] (DEFAULT) [address] [place] [address] eGFR AA >60 Invalid Interpretation Code [facility] Comment on above: Performed By: #### 2 086459, [id number], [id number], 7591687, [id number] #### [facility] (DEFAULT) [address] [place] [address] Anion gap [Moles/Vol] 7.4 mmol/L Normal 5.0-19.0 [facility] Comment on above: Performed By: #### 2 884627, [id number], [id number], [id number], [id number] #### [facility] (DEFAULT) [address] [place] [address] Calcium [Mass/Vol] 8.8 mg/dL Low 8.9-10.3 [facility] Comment on above: Performed By: #### 2 388437, [id number], [id number], 8857557, [id number] #### [facility] (DEFAULT) [address] [place] [address] Chloride [Moles/Vol] 106 mmol/L Normal 101-111 [facility] Comment on above: Performed By: #### 2 850219, [id number], [id number], [id number], [id number] #### [facility] (DEFAULT) [address] [place] [address] 27144 CO2 [Moles/Vol] 26 mmol/L Normal 21-32 [facility] Comment on above: Performed By: #### 2 948162, [id number], [id number], 1973656, [id number] #### [facility] (DEFAULT) [address] [place] [address] 80062 Creatinine [Mass/Vol] 0.88 mg/dL Normal 0.60-1.30 [facility] Comment on above: Performed By: #### 2 [id number], [id number], [id number], [id number], 8603051 #### [facility] (DEFAULT) [address] [place] [address] 09474 Glucose [Mass/Vol] 109.0 mg/dL Normal 74.0-118.0 [facility] Comment on above: Performed By: #### 2 907750, [id number], [id number], 7346525, 6381432 #### [facility] (DEFAULT) [address] [place] [address] 57448 Osmolality 273 mOsm/L Invalid Interpretation Code [facility] Comment on above: Performed By: #### 2 255262, [id number], [id number], [id number], [id number] #### [facility] (DEFAULT) [address] [place] [address] 12462 Potassium [Moles/Vol] 4.4 mmol/L Normal 3.6-5.1 [facility] Comment on above: Performed By: #### 2 367164, [id number], 87468696, 3873890, 0575156 #### [facility] (DEFAULT) [address] [place] [address] 15572 Sodium [Moles/Vol] 135.0 mmol/L Low 136.0-144.[address] [facility] Comment on above: Performed By: #### 2 842428, [id number], [id number], 2696869, 0575279 #### [facility] (DEFAULT) [address] [place] [address] Urea nitrogen [Mass/Vol] 19 mg/dL Normal 8-26 [facility] Comment on above: Performed By: #### 2 988356, [id number], [id number], 7781609, 5575267 #### [facility] (DEFAULT) [address] [place] [address] Urea nitrogen/Creatinin e [Mass ratio] 21.5 mg/mg High 4.6-16.2 [facility] Comment on above: Performed By: #### 2 903402, [id number], [id number], 0940469, [id number] #### [facility] (DEFAULT) [address] [place] [address] CBC w/ Auto Diffon Erythrocyte distribution width (RBC) [Ratio] 15.3 % High 11.5-15.0 [facility] Comment on above: Performed By: #### 2 198416, [id number], [id number], [id number], 8574281 #### [facility] (DEFAULT) [address] [place] [address] Hematocrit (Bld) [Volume fraction] 29.8 % Low 33.7-40.4 [facility] Comment on above: Performed By: #### 2 319127, [id number], 54076256, 6271355, 4076551 #### [facility] (DEFAULT) [address] [place] [address] Hemoglobin (Bld) [Mass/Vol] 9.9 g/dL Low 11.3-15.9 [facility] Comment on above: Performed By: #### 2 548718, [id number], 47075003, 1408028, [id number] #### [facility] (DEFAULT) [address] [place] [address] Man Diff? Auto Invalid Interpretation Code [facility] Comment on above: Performed By: #### 2 098596, [id number], [id number], 4385898, 3876547 #### [facility] (DEFAULT) [address] [place] [address] MCH (RBC) [Entitic mass] 30 pg Normal 24-34 [facility] Comment on above: Performed By: #### 2 030805, [id number], [id number], 5109799, 3604954 #### [facility] (DEFAULT) [address] [place] [address] MCHC (RBC) [Mass/Vol] 33 g/dL Normal 26-37 [facility] Comment on above: Performed By: #### 2 372603, [id number], 35474768, 2836208, 2739939 #### [facility] (DEFAULT) [address] [place] [address] MCV (RBC) [Entitic vol] 90 fL Normal 81-100 [facility] Comment on above: Performed By: #### 2 545425, [id number], 40003361, 3130103, 7804790 #### [facility] (DEFAULT) [address] [place] [address] Platelet 363 x10 Normal 138-427 [facility] Comment on above: Performed By: #### 2 [id number], [id number], [id number], [id number], [id number] #### [facility] (DEFAULT) [address] [place] [address] Platelet mean volume (Bld) [Entitic vol] 6.1 fL Low 6.3-10.2 [facility] Comment on above: Performed By: #### 2 [id number], [id number], [id number], [id number], [id number] #### [facility] (DEFAULT) [address] [place] [address] RBC 3.31 x10 Low 3.70-5.30 [facility] Comment on above: Performed By: #### 2 746246, [id number], [id number], 1726437, 8514485 #### [facility] (DEFAULT) [address] [place] [address] WBC 8.5 x10 Normal 3.5-10.5 [facility] Comment on above: Performed By: #### 2 990422, [id number], [id number], 2286386, [id number] #### [facility] (DEFAULT) [address] [place] [address] CRPon 10-15-2023 CRP 2.1 mg/dL High <=0.5 [facility] Comment on above: Performed By: #### 2 106415, [id number], [id number], 8874135, 6982509 ####[facility] (DEFAULT)[address] [place] [address] 92897 Nutrition Noteon 10-15-2023 Nutrition Note Per intake records, Pts avg 75+% of meals. Last BM 10/13. 10/15 labs reviewed, CRP/sed rate slowly improving. PICC line in place for IV atb. Discharge anticipated for tomorrow. Normal [facility] Sed Rateon 10-15-2023 Sed Rate 78 mm/hr High 0-20 [facility] Comment on above: Performed By: #### 2 [id number], [id number], [id number], [id number], [id number] ####[facility] (DEFAULT)[address] [place] [address] XR Chest 1 View Frontalon XR Chest [...] Dale Richmond DO 10/15/23 1:04 pm Technologist: YANIB Normal [facility] C Fluidon 12-10-2023 C Fluid Moderate growth of Streptococcus viridans [...] <=0.5 Verified Vanc S 0.5 Verified Normal [facility] Comment on above: Performed By: #### 2 [id number], [id number] #### [facility] (DEFAULT) [address] [place] [address] CRPon 10-14-2023 CRP 1.8 mg/dL High <=0.5 [facility] Comment on above: Performed By: #### 2 553075, [id number] #### [facility] (DEFAULT) [address] [place] [address] Sed Rateon 10-14-2023 Sed Rate 74 mm/hr High 0-20 [facility] Comment on above: Performed By: #### 2 379332, [id number] #### [facility] (DEFAULT) [address] [place] [address] .Auto Diff 1on 10-13-2023 Auto [place] % 5 % Normal - [facility] Comment on above: Performed By: #### 2 730689, [id number] #### [facility] (DEFAULT) [address] [place] [address] Baso Abs# 0.0 x10 Normal 0.0-0.2 [facility] Comment on above: Performed By: #### 2 435278, [id number] #### [facility] (DEFAULT) [address] [place] [address] 98098 Basophils/100 WBC (Bld) 0.2 % Normal 0.2-2.0 [facility] Comment on above: Performed By: #### 2 528303, [id number] #### [facility] (DEFAULT) [address] [place] [address] 21721 Eos Abs# 0.0 x10 Normal 0.0-0.4 [facility] Comment on above: Performed By: #### 2 703935, [id number] #### [facility] (DEFAULT) [address] [place] [address] 93061 Eosinophils/100 WBC (Bld) 0.1 % Low 0.9-4.0 [facility] Comment on above: Performed By: #### 2 659526, 5858521 #### [facility] (DEFAULT) [address] [place] [address] 66691 Lymph Abs# 1.0 x10 Low 1.3-2.9 [facility] Comment on above: Performed By: #### 2 607994, [id number] #### [facility] (DEFAULT) [address] [place] [address] 08630 Lymphocytes/100 WBC (Bld) 9 % Low 14-48 [facility] Comment on above: Performed By: #### 2 736666, [id number] #### [facility] (DEFAULT) [address] [place] [address] [place] Abs# 0.6 x10 Normal 0.0-0.8 [facility] Comment on above: Performed By: #### 2 036759, [id number] #### [facility] (DEFAULT) [address] [place] [address] 62624 Neut Abs# 10.1 x10 High 1.5-9.2 [facility] Comment on above: Performed By: #### 2 840690, [id number] #### [facility] (DEFAULT) [address] [place] [address] 17036 Neutrophils/100 WBC (Bld) 86 % Normal 44-88 [facility] Comment on above: Performed By: #### 2 283916, [id number] #### [facility] (DEFAULT) [address] [place] [address] 37073 [facility] Standardon 10-13-2023 Breakpoint Chem Normal [facility] Comment on above: Performed By: #### 2 658461, [id number] #### [facility] (DEFAULT) [address] [place] [address] 05871 eGFR Non AA >60 Invalid Interpretation Code [facility] Comment on above: Performed By: #### 2 686440, [id number] #### [facility] (DEFAULT) [address] [place] [address] 66079 eGFR AA >60 Invalid Interpretation Code [facility] Comment on above: Performed By: #### 2 878012, [id number] #### [facility] (DEFAULT) [address] [place] [address] 68648 Calcium [Mass/Vol] 8.5 mg/dL Low 8.9-10.3 [facility] Comment on above: Performed By: #### 2 694837, [id number] #### [facility] (DEFAULT) [address] [place] [address] 01018 Chloride [Moles/Vol] 105 mmol/L Normal 101-111 [facility] Comment on above: Performed By: #### 2 020559, [id number] #### [facility] (DEFAULT) [address] [place] [address] 00607 CO2 [Moles/Vol] 24 mmol/L Normal 21-32 [facility] Comment on above: Performed By: #### 2 858264, 4881982 #### [facility] (DEFAULT) [address] [place] [address] 89026 Creatinine [Mass/Vol] 0.76 mg/dL Normal 0.60-1.30 [facility] Comment on above: Performed By: #### 2 323641, [id number] #### [facility] (DEFAULT) [address] [place] [address] 87393 Glucose [Mass/Vol] 113.0 mg/dL Normal 74.0-118.0 [facility] Comment on above: Performed By: #### 2 857678, [id number] #### [facility] (DEFAULT) [address] [place] [address] 65030 Potassium [Moles/Vol] 4.9 mmol/L Normal 3.6-5.1 [facility] Comment on above: Performed By: #### 2 088216, 4831689 #### [facility] (DEFAULT) [address] [place] [address] 22258 Sodium [Moles/Vol] 135.0 mmol/L Low 136.0-144.[address] [facility] Comment on above: Performed By: #### 2 497048, 9407675 #### [facility] (DEFAULT) [address] [place] [address] 71213 Urea nitrogen [Mass/Vol] 33 mg/dL High 8- [facility] Comment on above: Performed By: #### 2 653961, [id number] #### [facility] (DEFAULT) [address] [place] [address] 90532 Anion gap [Moles/Vol] 10.9 mmol/L Normal 5.0-19.0 [facility] Comment on above: Performed By: #### 2 427156, 7902343 #### [facility] (DEFAULT) [address] [place] [address] 41044 Osmolality 278 mOsm/L Invalid Interpretation Code [facility] Comment on above: Performed By: #### 2 321341, [id number] #### [facility] (DEFAULT) [address] [place] [address] 91240 Urea nitrogen/Creatinin e [Mass ratio] 43.4 mg/mg High 4.6-16.2 [facility] Comment on above: Performed By: #### 2 311860, 6859369 #### [facility] (DEFAULT) [address] [place] [address] 80056 C Bloodon 10-13-2023 C Blood Bacillus species No ANICETO performed on this organism Results called to Alicia Leonard RN at 2S by CDD and results read back for confirmation on 10/12/2023 05:12:42 Normal [facility] Comment on above: Performed By: #### 2 452668, [id number] #### [facility] (DEFAULT) [address] [place] [address] 34834 CBC w/ Auto Diffon 3 Erythrocyte distribution width (RBC) [Ratio] 15.0 % Normal 11.5-15.0 [facility] Comment on above: Performed By: #### 2 641391, 7490802 #### [facility] (DEFAULT) [address] [place] [address] Hematocrit (Bld) [Volume fraction] 26.7 % Low 33.7-40.4 [facility] Comment on above: Performed By: #### 2 086287, 4085739 #### [facility] (DEFAULT) [address] [place] [address] Hemoglobin (Bld) [Mass/Vol] 8.9 g/dL Low 11.3-15.9 [facility] Comment on above: Performed By: #### 2 503528, 2214865 #### [facility] (DEFAULT) [address] [place] [address] Man Diff? Auto Invalid Interpretation Code [facility] Comment on above: Performed By: #### 2 393484, [id number] #### [facility] (DEFAULT) [address] [place] [address] MCH (RBC) [Entitic mass] 30 pg Normal 24-34 [facility] Comment on above: Performed By: #### 2 972401, [id number] #### [facility] (DEFAULT) [address] [place] [address] MCHC (RBC) [Mass/Vol] 33 g/dL Normal 26-37 [facility] Comment on above: Performed By: #### 2 321676, 4587721 #### [facility] (DEFAULT) [address] [place] [address] MCV (RBC) [Entitic vol] 89 fL Normal 81-100 [facility] Comment on above: Performed By: #### 2 833842, 3615732 #### [facility] (DEFAULT) [address] [place] [address] Platelet 386 x10 Normal 138-427 [facility] Comment on above: Performed By: #### 2 876309, 7808988 #### [facility] (DEFAULT) [address] [place] [address] Platelet mean volume (Bld) [Entitic vol] 6.1 fL Low 6.3-10.2 [facility] Comment on above: Performed By: #### 2 721829, 0491145 #### [facility] (DEFAULT) [address] [place] [address] RBC 3.00 x10 Low 3.70-5.30 [facility] Comment on above: Performed By: #### 2 679599, 6953582 #### [facility] (DEFAULT) [address] [place] [address] WBC 11.8 x10 High 3.5-10.5 [facility] Comment on above: Performed By: #### 2 632512, 6501432 #### [facility] (DEFAULT) [address] [place] [address] CRPon 10-13-2023 CRP 3.2 mg/dL High <=0.5 [facility] Comment on above: Performed By: #### 2 206926, 6765341 #### [facility] (DEFAULT) [address] [place] [address] Sed Rateon 10-13-2023 Sed Rate 82 mm/hr High 0-20 [facility] Comment on above: Performed By: #### 2 678367, [id number] #### [facility] (DEFAULT) [address] [place] [address] .Auto Diff 1on 10-12-2023 Auto [place] % 6 % Normal - [facility] Comment on above: Performed By: #### 1 6784788, [id number], 7532696 ####[facility] (DEFAULT)[address] [place] [address] Baso Abs# 0.0 x10 Normal 0.0-0.2 [facility] Comment on above: Performed By: #### 1 3742392, [id number], 3446394 ####[facility] (DEFAULT)[address] [place] [address] Basophils/100 WBC (Bld) 0.1 % Low 0.2-2.0 [facility] Comment on above: Performed By: #### 1 3872474, [id number], 8286255 ####[facility] (DEFAULT)[address] [place] [address] 10853 Eos Abs# 0.0 x10 Normal 0.0-0.4 [facility] Comment on above: Performed By: #### 1 5571517, [id number], 0854286 ####[facility] (DEFAULT)[address] [place] [address] Eosinophils/100 WBC (Bld) 0.0 % Low 0.9-4.0 [facility] Comment on above: Performed By: #### 1 6527429, [id number], 8615850 ####[facility] (DEFAULT)[address] [place] [address] Lymph Abs# 0.7 x10 Low 1.3-2.9 [facility] Comment on above: Performed By: #### 1 8785286, [id number], 6818636 ####[facility] (DEFAULT)[address] [place] [address] Lymphocytes/100 WBC (Bld) 6 % Low 14-48 [facility] Comment on above: Performed By: #### 1 [id number], [id number], 1391641 ####[facility] (DEFAULT)[address] [place] [address] [place] Abs# 0.7 x10 Normal 0.0-0.8 [facility] Comment on above: Performed By: #### 1 9648059, [id number], 2730159 ####[facility] (DEFAULT)[address] [place] [address] Neut Abs# 10.3 x10 High 1.5-9.2 [facility] Comment on above: Performed By: #### 1 7298468, [id number], 1544008 ####[facility] (DEFAULT)[address] [place] [address] 03602 Neutrophils/100 WBC (Bld) 88 % Normal 44-88 [facility] Comment on above: Performed By: #### 1 5327790, [id number], 5806604 ####[facility] (DEFAULT)[address] [place] [address] CBC w/ Auto Diffon 3 Erythrocyte distribution width (RBC) [Ratio] 15.5 % High 11.5-15.0 [facility] Comment on above: Performed By: #### 1 5040595, [id number], 3380150 ####[facility] (DEFAULT)[address] [place] [address] Hematocrit (Bld) [Volume fraction] 29.6 % Low 33.7-40.4 [facility] Comment on above: Performed By: #### 1 8442790, [id number], 3724198 ####[facility] (DEFAULT)[address] [place] [address] Hemoglobin (Bld) [Mass/Vol] 10.1 g/dL Low 11.3-15.9 [facility] Comment on above: Performed By: #### 1 0643073, [id number], 8012075 ####[facility] (DEFAULT)[address] [place] [address] Man Diff? Auto Invalid Interpretation Code [facility] Comment on above: Performed By: #### 1 6026534, [id number], 5822555 ####[facility] (DEFAULT)[address] [place] [address] 48442 MCH (RBC) [Entitic mass] 30 pg Normal 24-34 [facility] Comment on above: Performed By: #### 1 6442701, [id number], 4272343 ####[facility] (DEFAULT)[address] [place] [address] 01789 MCHC (RBC) [Mass/Vol] 34 g/dL Normal 26-37 [facility] Comment on above: Performed By: #### 1 9505544, [id number], 1492923 ####[facility] (DEFAULT)[address] [place] [address] 26250 MCV (RBC) [Entitic vol] 88 fL Normal 81-100 [facility] Comment on above: Performed By: #### 1 3230048, [id number], 8075445 ####[facility] (DEFAULT)[address] [place] [address] 80730 Platelet 434 x10 High 138-427 [facility] Comment on above: Performed By: #### 1 2116218, [id number], 2793938 ####[facility] (DEFAULT)[address] [place] [address] Platelet mean volume (Bld) [Entitic vol] 6.2 fL Low 6.3-10.2 [facility] Comment on above: Performed By: #### 1 4467529, [id number], [id number] ####[facility] (DEFAULT)[address] [place] [address] RBC 3.38 x10 Low 3.70-5.30 [facility] Comment on above: Performed By: #### 1 7442492, [id number], 9091702 ####[facility] (DEFAULT)[address] [place] [address] WBC 11.7 x10 High 3.5-10.5 [facility] Comment on above: Performed By: #### 1 1898343, [id number], 3978948 ####[facility] (DEFAULT)[address] [place] [address] CMP Standardon 10-12-2023 eGFR Non AA 57 mL/min/1.73m2 Invalid Interpretation Code [facility] Comment on above: Performed By: #### 1 [id number], [id number], 2853685 ####[facility] (DEFAULT)[address] [place] [address] eGFR AA >60 Invalid Interpretation Code [facility] Comment on above: Performed By: #### 1 7886939, [id number], 0695627 ####[facility] (DEFAULT)[address] [place] [address] 67508 Albumin [Mass/Vol] 2.4 g/dL Low 3.5-5.0 [facility] Comment on above: Performed By: #### 1 0901649, [id number], [id number] ####[facility] (DEFAULT)[address] [place] [address] Albumin/Globulin [Mass ratio] 0.6 {ratio} Low 1.4-2.6 [facility] Comment on above: Performed By: #### 1 8796167, [id number], [id number] ####[facility] (DEFAULT)[address] [place] [address] 51575 Alk Phos 105 IU/L High 32-91 [facility] Comment on above: Performed By: #### 1 5987518, [id number], 9790873 ####[facility] (DEFAULT)[address] [place] [address] 32044 ALT [Catalytic activity/Vol] 19.0 U/L Normal 14.0-54.0 [facility] Comment on above: Performed By: #### 1 1131508, [id number], [id number] ####[facility] (DEFAULT)[address] [place] [address] 14901 Anion gap [Moles/Vol] 14.7 mmol/L Normal 5.0-19.0 [facility] Comment on above: Performed By: #### 1 3878786, [id number], 6719934 ####[facility] (DEFAULT)[address] [place] [address] 85415 AST [Catalytic activity/Vol] 17 U/L Normal 15-41 [facility] Comment on above: Performed By: #### 1 3175536, [id number], 7082711 ####[facility] (DEFAULT)[address] [place] [address] Bili Total 0.6 mg/dL Normal 0.3-1.2 [facility] Comment on above: Performed By: #### 1 3227857, [id number], 6142457 ####[facility] (DEFAULT)[address] [place] [address] 43302 Calcium [Mass/Vol] 8.8 mg/dL Low 8.9-10.3 [facility] Comment on above: Performed By: #### 1 8945933, [id number], 5491446 ####[facility] (DEFAULT)[address] [place] [address] 65418 Chloride [Moles/Vol] 103 mmol/L Normal 101-111 [facility] Comment on above: Performed By: #### 1 3196238, [id number], 9350715 ####[facility] (DEFAULT)[address] [place] [address] 25220 CO2 [Moles/Vol] 25 mmol/L Normal 21-32 [facility] Comment on above: Performed By: #### 1 9995385, [id number], 1346300 ####[facility] (DEFAULT)[address] [place] [address] 24767 Creatinine [Mass/Vol] 0.94 mg/dL Normal 0.60-1.30 [facility] Comment on above: Performed By: #### 1 1133713, [id number], 4631701 ####[facility] (DEFAULT)[address] [place] [address] 07358 Globulin (S) [Mass/Vol] 3.5 g/dL Normal 1.5-4.3 [facility] Comment on above: Performed By: #### 1 5994501, [id number], 4648590 ####[facility] (DEFAULT)[address] [place] [address] 15840 Glucose [Mass/Vol] 161.0 mg/dL High 74.0-118.0 [facility] Comment on above: Performed By: #### 1 0217914, [id number], 3290102 ####[facility] (DEFAULT)[address] [place] [address] 25954 Osmolality 286 mOsm/L Invalid Interpretation Code [facility] Comment on above: Performed By: #### 1 6083321, [id number], 7354678 ####[facility] (DEFAULT)[address] [place] [address] 78898 Potassium [Moles/Vol] 4.7 mmol/L Normal 3.6-5.1 [facility] Comment on above: Performed By: #### 1 4430254, [id number], 9007106 ####[facility] (DEFAULT)[address] [place] [address] 19128 Protein [Mass/Vol] 5.9 g/dL Low 6.5-8.1 [facility] Comment on above: Performed By: #### 1 9688302, [id number], 2803782 ####[facility] (DEFAULT)[address] [place] [address] 41864 Sodium [Moles/Vol] 138.0 mmol/L Normal 136.0-144.[address] [facility] Comment on above: Performed By: #### 1 1761319, [id number], 1630907 ####[facility] (DEFAULT)[address] [place] [address] 92342 Urea nitrogen [Mass/Vol] 32 mg/dL High 8-26 [facility] Comment on above: Performed By: #### 1 [id number], [id number], 1120990 ####[facility] (DEFAULT)[address] [place] [address] 13129 Urea nitrogen/Creatinin e [Mass ratio] 34.0 mg/mg High 4.6-16.2 [facility] Comment on above: Performed By: #### 1 [id number], [id number], 2406880 ####[facility] (DEFAULT)[address] [place] [address] 19592 CRPon 10-12-2023 CRP 7.2 mg/dL High <=0.5 [facility] Comment on above: Performed By: #### 2 545863, 8792285 #### [facility] (DEFAULT) [address] [place] [address] 92787 Consent Formson 10-12-2023 Consent Forms [id number] Normal [facility] Nutrition Noteon 10-12-2023 Nutrition Note Pt admitted w/ Rt kn ee pain, recent washout. CT scan noting septic arthritis, IV atb initiated. Pt placed on a Regular diet, so far eating 100%. Admit wt 60.8kg no wt hx on file, denied any wt changes per ecd assessment. No chewing/swallowing problems identified. Labs reviewed [...] taking extra protein at home. To follow. Normal [facility] Pharmacy Noteon 10-12-2023 Pharmacy Note This [...] [Verified on: 10/12/2023 10:24 EST] Andrés Grover Normal [facility] Procalcitoninon 10-12-2023 Procalcitonin 0.109 ng/mL Low 0.500-1.000 [facility] Comment on above: Performed By: #### 7 [id number] #### [facility] (DEFAULT) [address] [place] [address] 78984 Sed Rateon 10-12-2023 Sed Rate 74 mm/hr High 0-20 [facility] Comment on above: Performed By: #### 2 [id number], [id number] #### [facility] (DEFAULT) [address] [place] [address] US Echocardiogram Completeon 10-12-2023 US Echocardiogram Complete [...] Junction2.89 cm F: 2.3 - 2.9 LV Pbnv178.22 g LVOT Diameter 2.09 cm IVC1.25 (<= [...] Single Plane 4 CH 25.69 mLBiplane LA Gjiprv25.33 mL Single Plane 2 CH67.19 mLLA ESV Index29.65 mL/m2 Right Atrium Area Systole RA Systolic Area A4C9.10 cm2RA Systolic Vol A4C19.30 mL Aortic Valve AoV Peak Velocity1.30 m/sLVOT Peak Velocity1.04 m/s AO Mean Velocity0.86 m/sLVOT Mean Velocity0.61 m/s AO Peak PG6.80 mmHgLVOT Peak PG4.31 mmHg AO Mean PG3.48 mmHgLVOT Mean PG1.86 mmHg AO V2 VTI22.79 cmLVOT V1 VTI20.10 cm ESTUARDO (Vmax)2.73 ur9VFBG Area 3.43 cm2 ESTUARDO (VTI)3.03 cm2SV (LVOT) 68.96 mL Indexed ESTUARDO (VTI)1.85 cm2/m2AI Greer 2.40 m/s2 AI ZWB598.11 ms Mitral Valve MV Max Mtlqioxx572.09 m/sMV PHT58.48 ms MV E Max Velocity0.55 m/sMVA (PHT)3.76 cm2 MV A Max Velocity0.67 m/sMR YZP693.58 cm E/A Ratio0.8MR Peak Velocity5.74 m/s MV Decel. Hlmw884.67 ms TDI Med e' Velocity5.08 cm/sMV E / Medial e' 10.72 Lat e' Velocity6.45 cm/sMV E / Lateral e' 8.45 TV S'16.13 cm/s Pulmonary Valve PV Peak Velocity0.78 m/sPV Peak PG2.43 mmHg UT End Diastolic Carlos.62.56 m/s PV Mean PG1.46 mmHg Tricuspid Valve TR Peak Velocity3.10 m/sRAP Estimate3.00 mmHg TR Peak PG38.55 etQxCLPS12.55 mmHg Final Signed (Electronic Signature): Marquis Pulido MD 10/12/23 3:45 pm Technologist: ERA [facility] XR Chest 1 View Frontalon XR Chest [...] SIMPSON [facility] .Auto Diff 10-11-2023 Auto [place] % 7 % Normal 11-16 [facility] Comment on above: Performed By: #### 2 024520, [id number], 82139573, 5690095009, 3140250804, 6917313053, 1413765723, 3670933 ####[facility] (DEFAULT)[address] [place] [address] Baso Abs# 0.1 x10 Normal 0.0-0.2 [facility] Comment on above: Performed By: #### 2 469953, 2151893926, 40936492, 5503685768, 1749117513, 7661125930, 5507840152, 7816829 ####[facility] (DEFAULT)[address] [place] [address] 10784 Basophils/100 WBC (Bld) 0.4 % Normal 0.2-2.0 [facility] Comment on above: Performed By: #### 2 942948, 9873948081, 23090929, 4049222099, 5851799196, 7116493306, 9183688961, 5533447 ####[facility] (DEFAULT)[address] [place] [address] 22501 Eos Abs# 0.0 x10 Normal 0.0-0.4 [facility] Comment on above: Performed By: #### 2 630512, 6224315667, 87545825, 9937070158, 4783081192, 5275112434, 2753021233, 9891446 ####[facility] (DEFAULT)[address] [place] [address] 38240 Eosinophils/100 WBC (Bld) 0.2 % Low 0.9-4.0 [facility] Comment on above: Performed By: #### 2 240881, 7299512520, 02961009, 7438218677, 6996567636, 4118762857, 0369477989, 2895131 ####[facility] (DEFAULT)[address] [place] [address] 14881 Lymph Abs# 1.2 x10 Low 1.3-2.9 [facility] Comment on above: Performed By: #### 2 274293, 4221955735, 50878173, 6153122073, 8651946448, 8441885675, 1461806192, 2455563 ####[facility] (DEFAULT)[address] [place] [address] 08200 Lymphocytes/100 WBC (Bld) 8 % Low 14-48 [facility] Comment on above: Performed By: #### 2 171393, 3132898613, 49466528, 1623331725, 6414325856, 7722055074, 3862077034, 6827120 ####[facility] (DEFAULT)[address] [place] [address] [place] Abs# 1.1 x10 High 0.0-0.8 [facility] Comment on above: Performed By: #### 2 174971, 1087752922, 57665001, 8809895223, 8744563064, 3183331512, 0939323097, 4702523 ####[facility] (DEFAULT)[address] [place] [address] Neut Abs# 13.6 x10 High 1.5-9.2 [facility] Comment on above: Performed By: #### 2 453636, 6833077879, 77719153, 3552521369, 6672010549, 5211847844, 1710019789, 4611965 ####[facility] (DEFAULT)[address] [place] [address] Neutrophils/100 WBC (Bld) 85 % Normal 44-88 [facility] Comment on above: Performed By: #### 2 516935, 8177250015, 52524051, 0502787325, 9521041551, 0786162013, 0179993448, 2519835 ####[facility] (DEFAULT)[address] [place] [address] Anesthesia Noteon 10-11-2023 Anesthesia Note Patient: ALICIA [...] DO [facility] Anesthesia Note Patient: ALICIA NGUYỄN Age: 83 [...] All Problems HTN (hypertension) / SNOMED CT 9334342116 / Confirmed Hypothyroidism / SNOMED CT 46863878 / Confirmed Histories Family History: No family history items have been selected or recorded. Procedure history: Appendectomy (607481462). History of total hysterectomy (2995809491). Knee (044208396). Comments: 10/11/2023 7:23 Radha Siddiqui RN total left Plantar fasciitis ([id number]). Comments: 10/11/2023 7:26 Radha Siddiqui RN left Cholecystectomy (45591072). Metatarsal (47019275). Comments: 10/11/2023 7:25 Radha Siddiqui RN right [...] Charted Heart Rate Peripheral 97 bpm (OCT 11:) Resp Rate 18 br/min (OCT 11:) SBP H 144 mmHg (OCT 11:18) DBP 73 mmHg (OCT 11:) Weight 60.78 [...] Oriented. Review / Management Laboratory Results Plan [place] [employer]esthesiologists#(ASA) physical status classification: Class [...] DO [facility] BF Cell Cnton 10-11-2023 Appear BF Cloudy [facility] Comment on above: Order Comment: right knee fluid Performed By: #### 6 474649 #### [facility] (DEFAULT) [address] [place] [address] 50522 Cell Cnt BF Type Synovial Fl Normal [facility] Comment on above: Order Comment: right knee fluid Performed By: #### 6 204589 #### [facility] (DEFAULT) [address] [place] [address] 71748 Color BF Red [facility] Comment on above: Order Comment: right knee fluid Performed By: #### 6 386639 #### [facility] (DEFAULT) [address] [place] [address] 00410 RBC BF [id number] Invalid Interpretation Code [facility] Comment on above: Order Comment: right knee fluid Performed By: #### 6 250549 #### [facility] (DEFAULT) [address] [place] [address] [place] [address] Invalid Interpretation Code [facility] Comment on above: Order Comment: right knee fluid Performed By: #### 6 338197 #### [facility] (DEFAULT) [address] [place] [address] 36324 BMP Standardon 10-11-2023 Breakpoint Chem Normal [facility] Comment on above: Performed By: #### 2 874275, 6251303838, 05363961, 0947097422, 9768248619, 9025801041, 3635754943, 4743512 ####[facility] (DEFAULT)[address] [place] [address] 15744 eGFR Non AA 57 mL/min/1.73m2 Invalid Interpretation Code [facility] Comment on above: Performed By: #### 2 622976, 8113341399, 24209095, 2002826405, 4090426440, 5872729642, 6395950549, 4166403 ####[facility] (DEFAULT)[address] [place] [address] eGFR AA >60 Invalid Interpretation Code [facility] Comment on above: Performed By: #### 2 764367, 4387799094, 73137436, 8641818196, 5798713461, 2100953207, 1303834358, 2159432 ####[facility] (DEFAULT)[address] [place] [address] 23542 Anion gap [Moles/Vol] 13.6 mmol/L Normal 5.0-19.0 [facility] Comment on above: Performed By: #### 2 246659, 8956235623, 56135198, 4278455919, 8556645122, 3524609207, 8494140992, 6048040 ####[facility] (DEFAULT)[address] [place] [address] 06321 Calcium [Mass/Vol] 9.6 mg/dL Normal 8.9-10.3 [facility] Comment on above: Performed By: #### 2 709431, 1469001865, 01847626, 0224919593, 8817679957, 2309333637, 1082442087, 6815459 ####[facility] (DEFAULT)[address] [place] [address] 82334 Chloride [Moles/Vol] 102 mmol/L Normal 101-111 [facility] Comment on above: Performed By: #### 2 065676, 4344301135, 35164074, 7862903987, 2644509006, 9918828782, 1670967072, 7070679 ####[facility] (DEFAULT)[address] [place] [address] 87075 CO2 [Moles/Vol] 25 mmol/L Normal 21-32 [facility] Comment on above: Performed By: #### 2 246986, 5560358862, 34727661, 8273474214, 2453805792, 9337675934, 0730315033, 4995813 ####[facility] (DEFAULT)[address] [place] [address] 30634 Creatinine [Mass/Vol] 0.93 mg/dL Normal 0.60-1.30 [facility] Comment on above: Performed By: #### 2 432402, 9658288432, 37852193, 7664260790, 1923136095, 9779342333, 5056544118, 8541166 ####[facility] (DEFAULT)[address] [place] [address] 62857 Glucose [Mass/Vol] 114.0 mg/dL Normal 74.0-118.0 [facility] Comment on above: Performed By: #### 2 773296, 0521226890, 93469973, 2458850803, 2612591121, 8531170659, 6815366969, 1038544 ####[facility] (DEFAULT)[address] [place] [address] 89313 Osmolality 279 mOsm/L Invalid Interpretation Code [facility] Comment on above: Performed By: #### 2 166642, 4858216823, 53375236, 1600339285, 1714251542, 6444398818, 1318091189, 4697847 ####[facility] (DEFAULT)[address] [place] [address] 43371 Potassium [Moles/Vol] 4.6 mmol/L Normal 3.6-5.1 [facility] Comment on above: Performed By: #### 2 785911, 6825349496, 83236634, 4332946235, 5521846997, 7412903965, 4018370020, 3068004 ####[facility] (DEFAULT)[address] [place] [address] 38889 Sodium [Moles/Vol] 136.0 mmol/L Normal 136.0-144.[address] [facility] Comment on above: Performed By: #### 2 312186, 2447809262, 12663048, 9084744858, 9953139687, 8743357411, 0674679905, 6655866 ####[facility] (DEFAULT)[address] [place] [address] 39483 Urea nitrogen [Mass/Vol] 30 mg/dL High 8-26 [facility] Comment on above: Performed By: #### 2 282493, 7271383834, 48623726, 5149917485, 9608258181, 3220840824, 4828611133, 9967510 ####[facility] (DEFAULT)[address] [place] [address] 56386 Urea nitrogen/Creatinin e [Mass ratio] 32.2 mg/mg High 4.6-16.2 [facility] Comment on above: Performed By: #### 2 805406, 2385954974, 73447815, 9696907776, 9926236476, 3720446271, 1250748685, 5842940 ####[facility] (DEFAULT)[address] [place] [address] 37564 Body Fluid Diffon 10-11-2023 BF Bands % 2 Invalid Interpretation Code [facility] Comment on above: Order Comment: Right knee fluidVerbal order per Kelly Long Performed By: #### 2 [id number] ####[facility] (DEFAULT)[address] [place] [address] 17150 BF Baso % 0 Invalid Interpretation Code [facility] Comment on above: Order Comment: Right knee fluidVerbal order per Kelly Long Performed By: #### 2 [id number] ####[facility] (DEFAULT)[address] [place] [address] 79238 BF Eos % 0 Invalid Interpretation Code [facility] Comment on above: Order Comment: Right knee fluidVerbal order per Kelly Long Performed By: #### 2 [id number] ####[facility] (DEFAULT)[address] [place] [address] 13646 BF Lymph % 5 Invalid Interpretation Code [facility] Comment on above: Order Comment: Right knee fluidVerbal order per Kelly Long Performed By: #### 2 [id number] ####[facility] (DEFAULT)[address] [place] [address] 65010 BF [place] % 0 Invalid Interpretation Code [facility] Comment on above: Order Comment: Right knee fluidVerbal order per Kelly Long Performed By: #### 2 [id number] ####[facility] (DEFAULT)[address] [place] [address] 59460 BF Segs % 93 Invalid Interpretation Code [facility] Comment on above: Order Comment: Right knee fluidVerbal order per Kelly Long Performed By: #### 2 [id number] ####[facility] (DEFAULT)[address] [place] [address] 90703 CBC w/ Auto Diffon 3 Erythrocyte distribution width (RBC) [Ratio] 15.3 % High 11.5-15.0 [facility] Comment on above: Performed By: #### 2 756057, 7280453404, 51378444, 7956261710, 3806974826, 9753513770, 2122272574, 5505022 ####[facility] (DEFAULT)[address] [place] [address] 07437 Hematocrit (Bld) [Volume fraction] 36.1 % Normal 33.7-40.4 [facility] Comment on above: Performed By: #### 2 801706, 1604417763, 00748043, 2101820683, 7392355206, 4763533611, 6821694531, 3755085 ####[facility] (DEFAULT)[address] [place] [address] 54934 Hemoglobin (Bld) [Mass/Vol] 11.8 g/dL Normal 11.3-15.9 [facility] Comment on above: Performed By: #### 2 889899, 9296177281, 87996432, 3766494035, 4676562512, 7688359129, 4304872757, 2849517 ####[facility] (DEFAULT)[address] [place] [address] Man Diff? Auto Invalid Interpretation Code [facility] Comment on above: Performed By: #### 2 411277, 1815163818, 65108214, 6323815838, 8193556038, 5452756593, 0347467801, 0407193 ####[facility] (DEFAULT)[address] [place] [address] 30645 MCH (RBC) [Entitic mass] 29 pg Normal 24-34 [facility] Comment on above: Performed By: #### 2 221887, 8866531353, 27812686, 4082461798, 5663013874, 8004848786, 8122245886, 0702205 ####[facility] (DEFAULT)[address] [place] [address] MCHC (RBC) [Mass/Vol] 33 g/dL Normal 26-37 [facility] Comment on above: Performed By: #### 2 912565, 4351296844, 09107758, 9456280277, 2021756007, 3403556784, 0035753979, 5110456 ####[facility] (DEFAULT)[address] [place] [address] 91972 MCV (RBC) [Entitic vol] 89 fL Normal 81-100 [facility] Comment on above: Performed By: #### 2 077673, 7007292728, 14966276, 9102877742, 2378437431, 6404703175, 6062455659, 3363799 ####[facility] (DEFAULT)[address] [place] [address] 16196 Platelet 492 x10 High 138-427 [facility] Comment on above: Performed By: #### 2 147582, 1635618184, 26373576, 0073485281, 1962898687, 8330341678, 5762032593, 1335879 ####[facility] (DEFAULT)[address] [place] [address] Platelet mean volume (Bld) [Entitic vol] 6.2 fL Low 6.3-10.2 [facility] Comment on above: Performed By: #### 2 948656, 4883181587, 78121502, 3649638218, 1599087709, 5446502082, 9750920457, 4961347 ####[facility] (DEFAULT)[address] [place] [address] 46147 RBC 4.05 x10 Normal 3.70-5.30 [facility] Comment on above: Performed By: #### 2 613002, 4472896421, 87876942, 4206757431, 1500984180, 2144989903, 3576485885, 4172721 ####[facility] (DEFAULT)[address] [place] [address] 61352 WBC 16.0 x10 High 3.5-10.5 [facility] Comment on above: Result Comment: Slid e Reviewed Performed By: #### 2 807477, 7656702636, 54564243, 8782535582, 9418986560, 9775519353, 0402842104, 8534590 ####[facility] (DEFAULT)[address] [place] [address] 53880 CRPon 10-11-2023 CRP 6.1 mg/dL High <=0.5 [facility] Comment on above: Performed By: #### 2 586589 ####[facility] (DEFAULT)[address] [place] [address] Lower Extremity w/ Contra st Righton [...] MD 10/11/23 4:31 pm Technologist: Jeanette LUKE [facility] Extra SSTon 10-11-2023 Tube Collected Yes Invalid Interpretation Code [facility] Comment on above: Performed By: #### 2 944396, 2144689982, 43388969, 5675302606, 8487999358, 7157682858, 3127335332, 7640951 ####[facility] (DEFAULT)[address] [place] [address] MAGR Intraoperative Recordon 10-11-2023 MAGR Intraoperative Record MAGR Intra-Op Record Summary Primary Physician: JOB AGUILAR DO Finalized Date/Time: 10/11/23 14:40:54 Pt. Name: GOPIALICIA/Sex: 1940 FEMALE Med Rec #: [id number] Physician: JOB AGUILAR DO Financial #: [id number] Pt. Type: I Room/Bed: [facility]/1 Admit/Disch: 10/11/23 06:57:39 - Institution: Case Times [...] Role Performed Surgeon - Primary Anesthesiologist of Imaging Analyst Record Time In 10/11/23 11:40:00 10/11/23 11:40:00 10/11/23 11:40:00 Time Out 10/11/23 12:48:00 10/11/23 12:53:00 10/11/23 12:53:00 Procedure Arthroscopy Knee(Right) Arthroscopy Knee(Right) Arthroscopy Knee(Right) Last Modified By: Sandra Shepard RN, Barbara RN Long, Barbara RN 10/11/23 12:55:35 10/11/23 12:55:35 10/11/23 12:55:35 Entry 4 Entry 5 Case Attendee Piotr WEB APPLICATIONS PROGRAMMER, Rina Metcalf CST CSFA CSFA Role Performed Scrub Personnel Cotton Presser Time In 10/11/23 11:40:00 10/11/23 11:40:00 Time [...] Sheryl Dennis DO, Long, Barbara RN, Piotr WEB APPLICATIONS PROGRAMMER, Gloria WEB APPLICATIONS PROGRAMMER CSFA, Rina Muñoz CSFA Last Modified By: [...] Met (O.80) Ye (more content not included)... Normal [facility] MAGR PACU Recordon MAGR PACU Record MAGR PACU Record [facility] Primary Physician: JOB AGUILAR DO Finalized Date/Time: 10/11/23 13:56:49 Pt. Name: ALICIA NGUYỄN /Sex: 1940 FEMALE Med Rec #: [id number] Physician: JOB AGUILAR DO Financial #: [id number] Pt. Type: D Room/Bed: 224/1 Admit/Disch: 10/11/23 06:57:39 - Institution: PACU Case Times MAGR Entry 1 In PACU I 10/11/23 12:55:00 Discharge from PACU 10/11/23 13:40:00 I Last Modified By: Radha Seo RN 10/11/23 13:56:45 Finalized By: Radha Seo RN Document Signatures Signed By: Radha Seo RN 10/11/23 13:56 [facility] 12-12-2022 MAGR Preoperative Record MAGR Pre-Op Record [facility] Primary Physician: JOB AGUILAR DO Finalized Date/Time: 10/11/23 12:17:03 Pt. Name: ALICIA NGUYỄN Loida/Sex: 1940 FEMALE Med Rec #: [id number] Physician: JOB AGUILAR DO Financial #: [id number] Pt. Type: D Room/Bed: / Admit/Disch: 10/11/23 [...] 12:17 [facility] Pharmacy Noteon 10-11-2023 Pharmacy Note The following [...] Signed on: 10/13/2023 09:39 EST] Jamal Butler [facility] Sed Rateon 10-11-2023 Sed Rate 80 mm/hr High 0-20 [facility] Comment on above: Performed By: #### 2 258324, 1556189062, 39611467, 1341467617, 7112645697, 4165471094, 4220672438, 3090849 ####[facility] (DEFAULT)[address] [place] [address] CREATININEon 04-04-2023 Creatinine [Mass/Vol] 1.25 mg/dL Critically high 0.55-1.02 [facility] Comment on above: Performed By: #### C HEIDI #### [facility] [address] [address] [address] Lolita Alvarado EGFR-AF IRISH 49 mL/min/1.73m2 Critically low >=60 [facility] Comment on above: Performed By: #### C HEIDI #### [facility] [address] [place] [address] Dr. Lolita Alvarado EGFR-NON AF IRISH 41 mL/min/1.73m2 Critically low >=60 [facility] Comment on above: Performed By: #### C HEIDI #### [facility] [address] [place] [address] CHEST W CONon [...] above: Performed By: #### C HEIDI #### [facility] [address] [address] [address] Lolita Alvarado EGFR-AF IRISH >60 Normal >=60 [facility] Comment on above: Performed By: #### C HEIDI #### [facility] [address] [address] [address] Lolita Alvarado EGFR-NON AF IRISH >60 Normal >=60 [facility] Comment on above: Performed By: #### C HEIDI #### [facility] [address] [address] [address] Lolita Alvarado Glucose Glucometer (BldC) [M ass/Vol]Ordered By: Santiago Otto on 11-01-2022 Glucose [Mass/Vol] 97 mg/dL [facility] Comment on above: Random Glucose Refer ence Range is dependent on time and content of last meal. Glucose of more than 200 mg/dL in a nonstressed, ambulatory subject supports the diagnosis of Diabetes Mellitus. Glucose Poct Glucometerson 1 01-02-2022 Glucose [Mass/Vol] 97 mg/dL Normal [facility] Comment on above: Result Comment: Cylinder om Glucose Reference Range is dependent on time and content of last meal. Glucose of more than 200 mg/dL in a nonstressed, ambulatory subject supports the diagnosis of Diabetes Mellitus. PERFORMED BY: [place] [address] PATHOLOGIST [employer] NEW MEDEIROS M.D. Performed By: #### G LULS #### Point of Care testing , PET tumor init tx strat sb-m ton 11-01-2022 PET tumor init tx strat sb-mt [facility] [place] [address] [place] [address] Nuclear Medicine Report Signed Patient: Alicia Nguyễn MR#: [id number] : 1940 Acct:[id number] Age/Sex: 82 / F ADM Date: 11/01/22 Loc: Room: Type: [facility] Attending Dr: Santiago Otto MD Copies [...] Candi Leigh M.D.11/01/2022 1:32 PM Dictation Location: [place] [address] Transcribed By: [facility] 11/01/22 1332 Dictated By: Candi Leigh MD 11/01/22 1300 Signed By: 11/01/22 133 [facility] CT CHEST W CONon 10-24-2022 CT [...] RIGO WHITTAKER Date: 2022-10-23 22:21 Normal [facility] CREATININEon 10-23-2022 Creatinine [Mass/Vol] 1.08 mg/dL Critically high 0.55-1.02 [facility] Comment on above: Performed By: #### C HEIDI #### [facility] [address] [address] [address] Lolita Alvarado EGFR-AF IRISH 59 mL/min/1.73m2 Critically low >=60 [facility] Comment on above: Performed By: #### C HEIDI #### [facility] [address] [address] [address] Lolita Alvarado EGFR-NON AF IRISH 48 mL/min/1.73m2 Critically low >=60 [facility] Comment on above: Performed By: #### C HEIDI #### [facility] [address] TSPINE WO CONon [...] spine. 3. No acute abnormality. Normal [facility] General Surgery Office/Clini c Noteon 09-18-2022 [...] Cirrhosis of liver: Father. Heart disease: Mother. Normal [facility] Comment on above: Result Comment: Elec tronically [...] Ambulatory Visit Summaryon 1 Ambulatory Visit Summary ALICIA NGUYỄN :1940 Visit Date:08/29/2022 Ambulatory Visit Instructions Your Care Team Attending Physician - EFRAIN LONGORIA, Arie Love Primary Care Physician - Kelvin LONGORIA, Santiago This Is Your Medications List alendronate (Fosamax [...] Varicose veins of legs Venous insufficiency Normal [facility] Pathology Noteon 08-18-2022 Pathology Note [id number]:127 Normal [facility] Outside Colonoscopyon 2021 Outside Colonoscopy [id number]:127 Normal [facility] US NOLBERTO DOP LEG RTon 08-10-20 US NOLBERTO DOP LEG RT EXAM: US [...] by: BRAD GONZALEZ Date: 2022-08-10 15:05 Normal [facility] Lab Reportson 08-03-2022 Lab Reports [id number]:127 Normal [facility] CBC AUTO DIFFon 08-02-2022 BASO # 0.0 103/ul Normal 0.0-0.1 [facility] Comment on above: Performed By: #### C BC #### [facility] [address] [place] [address] Dr. Lolita Alvarado Basophils/100 WBC (Bld) 0.3 % Normal 0.2-2.0 [facility] Comment on above: Performed By: #### C BC #### [facility] [address] [place] [address] Dr. Lolita Alvarado EO # 0.0 103/ul Normal 0.0-0.7 [facility] Comment on above: Performed By: #### C BC #### [facility] [address] [place] [address] Dr. Lolita Alvarado Eosinophils/100 WBC (Bld) 0.3 % Critically low 0.9-7.0 [facility] Comment on above: Performed By: #### C BC #### [facility] [address] [place] [address] Dr. Lolita Alvarado Erythrocyte distribution width (RBC) [Ratio] 13.3 % Normal 11.0-15.0 [facility] Comment on above: Performed By: #### C BC #### [facility] [address] [place] [address] Dr. Lolita Alvarado Hematocrit (Bld) [Volume fraction] 34.6 % Critically low 36.0-48.0 [facility] Comment on above: Performed By: #### C BC #### [facility] [address] [place] [address] Dr. Lolita Alvarado Hemoglobin (Bld) [Mass/Vol] 11.4 g/dL Critically low 12.0-16.0 [facility] Comment on above: Performed By: #### C BC #### [facility] [address] [place] [address] Dr. Lolita Alvarado IG # 0.04 10e3/ul Critically high 0.00-0.03 [facility] Comment on above: Performed By: #### C BC #### [facility] [address] [place] [address] Dr. oLlita Alvarado IG % 1.0 % Critically high 0.0-0.5 [facility] Comment on above: Performed By: #### C BC #### [facility] [address] [place] [address] Dr. Lolita Alvarado LYMPH # 1.2 103/ul Normal 1.2-3.8 [facility] Comment on above: Performed By: #### C BC #### [facility] [address] [place] [address] Dr. Lolita Alvarado Lymphocytes/100 WBC (Bld) 30.9 % Normal 20.5-60.0 [facility] Comment on above: Performed By: #### C BC #### [facility] [address] [place] [address] Dr. Lolita Alvarado MANUAL DIFF REQ NO Normal [facility] Comment on above: Performed By: #### C BC #### [facility] [address] [place] [address] Dr. Lolita Alvarado MCH (RBC) [Entitic mass] 31.0 pg Normal 26.7-34.0 [facility] Comment on above: Performed By: #### C BC #### [facility] [address] [place] [address] Dr. Lolita Alvarado MCHC (RBC) [Mass/Vol] 32.9 g/dL Normal 29.9-35.2 [facility] Comment on above: Performed By: #### C BC #### [facility] [address] [place] [address] Dr. Lolita Alvarado MCV (RBC) [Entitic vol] 94.0 fL Normal 81.0-99.0 [facility] Comment on above: Performed By: #### C BC #### [facility] [address] [place] [address] Dr. Lolita Alvarado MONO # 0.4 103/ul Normal 0.3-0.8 [facility] Comment on above: Performed By: #### C BC #### [facility] [address] [place] [address] Dr. Lolita Alvarado Monocytes/100 WBC (Bld) 10.6 % Normal 1.7-12.0 [facility] Comment on above: Performed By: #### C BC #### [facility] [address] [place] [address] Dr. Lolita Alvarado NEUT # 2.2 103/ul Normal 1.4-6.5 [facility] Comment on above: Performed By: #### C BC #### [facility] [address] [place] [address] Dr. Lolita Alvarado Neutrophils/100 WBC (Bld) 56.9 % Normal 43.0-75.0 [facility] Comment on above: Performed By: #### C BC #### [facility] [address] [place] [address] Dr. Lolita Alvarado Platelet mean volume (Bld) [Entitic vol] 8.1 fL Critically low 9.5-13.5 [facility] Comment on above: Performed By: #### C BC #### [facility] [address] [place] [address] Dr. Lolita Alvarado PLT 226 103/ul Normal 150-450 [facility] Comment on above: Performed By: #### C BC #### [facility] [address] [place] [address] Dr. Lolita Alvarado RBC 3.68 106/ul Critically low 4.20-5.40 [facility] Comment on above: Performed By: #### C BC #### [facility] [address] [place] [address] Dr. Lolita Alvarado WBC 3.9 103/ul Critically low 4.0-11.0 [facility] Comment on above: Performed By: #### C BC #### [facility] [address] [place] [address] Dr. Lolita Alvarado Covid-19 PCR (CVDTB)on 06-07 SARS-CoV-2 (COVID-19) RNA EDWIN+probe Ql (Unsp spec) Detected Critically abnormal NOT DETECTED [facility] Comment on above: Result Comment: This test is not yet approved or cleared by the [place] FDA. When there are no FDA-approved or cleared tests available, and other criteria are met, FDA can make tests available under an emergency access mechanism called an Emergency Use Authorization (EUA). The EUA for this test is supported by the [place] of Health and Human Service's (HHS's) declaration [...] longer be used). Performed By: #### C #### [facility] [address] [place] [address] Dr. Lolita Alvarado Consent for Procedure/Surger yon 06-15-2022 Consent for Procedure/Surgery [id number]:127 Normal [facility] Ambulatory Visit Summaryon 0 06-13-2022 Ambulatory Visit Summary ALICIA NGUYỄN :1940 Visit Date:06/13/2022 Ambulatory Visit Instructions Your Care Team Attending Physician - EFRAIN LONGORIA, Arie Love Primary Care Physician - Kelvin LONGORIA, Santiago This Is Your Medications List Contact prescribing [...] that you are currently receiving treatment for. Reynainy BMI 26.0-26.9,adult Edema History of gastritis History of TIA (transient ischemic attack) HTN (hypertension) IBS (irritable bowel syndrome) Insomnia Left leg DVT Lumbar scoliosis Osteopenia Premature atrial beats Thoracic spinal stenosis Varicose veins of legs Venous insufficiency Normal [facility] CBC AUTO DIFFon 06-02-2022 BASO # 0.0 103/ul Normal 0.0-0.1 [facility] Comment on above: Performed By: #### C BC #### [facility] [address] [address] [address] Lolita Alvarado Basophils/100 WBC (Bld) 0.4 % Normal 0.2-2.0 [facility] Comment on above: Performed By: #### C BC #### [facility] [address] [address] [address] Lolita Alvarado EO # 0.0 103/ul Normal 0.0-0.7 [facility] Comment on above: Performed By: #### C BC #### [facility] [address] [address] [address] Lolita Alvarado Eosinophils/100 WBC (Bld) 0.2 % Critically low 0.9-7.0 [facility] Comment on above: Performed By: #### C BC #### [facility] [address] [address] [address] Lolita Alvarado Erythrocyte distribution width (RBC) [Ratio] 12.8 % Normal 11.0-15.0 [facility] Comment on above: Performed By: #### C BC #### [facility] [address] [address] [address] Lolita Alvarado Hematocrit (Bld) [Volume fraction] 30.1 % Critically low 36.0-48.0 [facility] Comment on above: Performed By: #### C BC #### [facility] [address] [address] [address] Lolita Alvarado Hemoglobin (Bld) [Mass/Vol] 10.3 g/dL Critically low 12.0-16.0 [facility] Comment on above: Performed By: #### C BC #### [facility] [address] [place] [address] Dr. Lolita Alvarado IG # 0.02 10e3/ul Normal 0.00-0.03 [facility] Comment on above: Performed By: #### C BC #### [facility] [address] [place] [address] Dr. Lolita Alvarado IG % 0.4 % Normal 0.0-0.5 [facility] Comment on above: Performed By: #### C BC #### [facility] [address] [place] [address] Dr. Lolita Alvarado LYMPH # 0.7 103/ul Critically low 1.2-3.8 [facility] Comment on above: Performed By: #### C BC #### [facility] [address] [place] [address] Dr. Lolita Alvarado Lymphocytes/100 WBC (Bld) 14.9 % Critically low 20.5-60.0 [facility] Comment on above: Performed By: #### C BC #### [facility] [address] [place] [address] Dr. Lolita Alvarado MANUAL DIFF REQ NO Normal [facility] Comment on above: Performed By: #### C BC #### [facility] [address] [place] [address] Dr. Lolita Alvarado MCH (RBC) [Entitic mass] 33.6 pg Normal 26.7-34.0 [facility] Comment on above: Performed By: #### C BC #### [facility] [address] [place] [address] Dr. Lolita Alvarado MCHC (RBC) [Mass/Vol] 34.2 g/dL Normal 29.9-35.2 [facility] Comment on above: Performed By: #### C BC #### [facility] [address] [place] [address] Dr. Lolita Alvarado MCV (RBC) [Entitic vol] 98.0 fL Normal 81.0-99.0 [facility] Comment on above: Performed By: #### C BC #### [facility] [address] [place] [address] Dr. Lolita Alvarado MONO # 0.4 103/ul Normal 0.3-0.8 [facility] Comment on above: Performed By: #### C BC #### [facility] [address] [place] [address] Dr. Lolita Alvarado Monocytes/100 WBC (Bld) 9.0 % Normal 1.7-12.0 [facility] Comment on above: Performed By: #### C BC #### [facility] [address] [place] [address] Dr. Lolita Alvarado NEUT # 3.4 103/ul Normal 1.4-6.5 [facility] Comment on above: Performed By: #### C BC #### [facility] [address] [place] [address] Dr. Lolita Alvarado Neutrophils/100 WBC (Bld) 75.1 % Critically high 43.0-75.0 [facility] Comment on above: Performed By: #### C BC #### [facility] [address] [place] [address] Dr. Lolita Alvarado Platelet mean volume (Bld) [Entitic vol] 8.5 fL Critically low 9.5-13.5 [facility] Comment on above: Performed By: #### C BC #### [facility] [address] [place] [address] Dr. Lolita Alvarado PLT 229 103/ul Normal 150-450 [facility] Comment on above: Performed By: #### C BC #### [facility] [address] [place] [address] Dr. Lolita Alvarado RBC 3.07 106/ul Critically low 4.20-5.40 [facility] Comment on above: Performed By: #### C BC #### [facility] [address] [place] [address] Dr. Lolita Alvarado WBC 4.6 103/ul Normal 4.0-11.0 [facility] Comment on above: Performed By: #### C BC #### [facility] [address] [place] [address] Dr. Lolita Alvarado Physician Referralon 022 Physician Referral [id number]:127 Normal [facility] CBC AUTO DIFFon 06-01-2022 BASO # 0.0 103/ul Normal 0.0-0.1 [facility] Comment on above: Performed By: #### C BC #### [facility] [address] [place] [address] Dr. Lolita Alvarado Basophils/100 WBC (Bld) 0.7 % Normal 0.2-2.0 [facility] Comment on above: Performed By: #### C BC #### [facility] [address] [place] [address] Dr. Lolita Alvarado EO # 0.2 103/ul Normal 0.0-0.7 [facility] Comment on above: Performed By: #### C BC #### [facility] [address] [place] [address] Dr. Lolita Alvarado Eosinophils/100 WBC (Bld) 3.7 % Normal 0.9-7.0 [facility] Comment on above: Performed By: #### C BC #### [facility] [address] [place] [address] Dr. Lolita Alvarado Erythrocyte distribution width (RBC) [Ratio] 13.0 % Normal 11.0-15.0 [facility] Comment on above: Performed By: #### C BC #### [facility] [address] [place] [address] Dr. Lolita Alvarado Hematocrit (Bld) [Volume fraction] 32.2 % Critically low 36.0-48.0 [facility] Comment on above: Performed By: #### C BC #### [facility] [address] [place] [address] Dr. Lolita Alvarado Hemoglobin (Bld) [Mass/Vol] 10.6 g/dL Critically low 12.0-16.0 [facility] Comment on above: Performed By: #### C BC #### [facility] [address] [place] [address] Dr. Lolita Alvarado IG # 0.02 10e3/ul Normal 0.00-0.03 [facility] Comment on above: Performed By: #### C BC #### [facility] [address] [place] [address] Dr. Lolita Alvarado IG % 0.5 % Normal 0.0-0.5 [facility] Comment on above: Performed By: #### C BC #### [facility] [address] [place] [address] Dr. Lolita Alvarado LYMPH # 1.4 103/ul Normal 1.2-3.8 [facility] Comment on above: Performed By: #### C BC #### [facility] [address] [place] [address] Dr. Lolita Alvarado Lymphocytes/100 WBC (Bld) 32.4 % Normal 20.5-60.0 [facility] Comment on above: Performed By: #### C BC #### [facility] [address] [place] [address] Dr. Lolita Alvarado MANUAL DIFF REQ NO Normal [facility] Comment on above: Performed By: #### C BC #### [facility] [address] [place] [address] Dr. Lolita Alvarado MCH (RBC) [Entitic mass] 32.1 pg Normal 26.7-34.0 [facility] Comment on above: Performed By: #### C BC #### [facility] [address] [place] [address] Dr. Lolita Alvarado MCHC (RBC) [Mass/Vol] 32.9 g/dL Normal 29.9-35.2 [facility] Comment on above: Performed By: #### C BC #### [facility] [address] [place] [address] Dr. Lolita Alvarado MCV (RBC) [Entitic vol] 97.6 fL Normal 81.0-99.0 [facility] Comment on above: Performed By: #### C BC #### [facility] [address] [place] [address] Dr. Lolita Alvarado MONO # 0.6 103/ul Normal 0.3-0.8 [facility] Comment on above: Performed By: #### C BC #### [facility] [address] [address] [address] Lolita Alvarado Monocytes/100 WBC (Bld) 14.0 % Critically high 1.7-12.0 [facility] Comment on above: Performed By: #### C BC #### [facility] [address] [address] [address] Lolita Alvarado NEUT # 2.1 103/ul Normal 1.4-6.5 [facility] Comment on above: Performed By: #### C BC #### [facility] [address] [place] [address] Dr. Lolita Alvarado Neutrophils/100 WBC (Bld) 48.7 % Normal 43.0-75.0 [facility] Comment on above: Performed By: #### C BC #### [facility] [address] [place] [address] Dr. Lolita Alvarado Platelet mean volume (Bld) [Entitic vol] 8.2 fL Critically low 9.5-13.5 [facility] Comment on above: Performed By: #### C BC #### [facility] [address] [place] [address] Dr. Lolita Alvarado PLT 216 103/ul Normal 150-450 [facility] Comment on above: Performed By: #### C BC #### [facility] [address] [place] [address] Dr. Lolita Alvarado RBC 3.30 106/ul Critically low 4.20-5.40 [facility] Comment on above: Performed By: #### C BC #### [facility] [address] [place] [address] Dr. Lolita Alvarado WBC 4.3 103/ul Normal 4.0-11.0 [facility] Comment on above: Performed By: #### C BC #### [facility] [address] [place] [address] Dr. Lolita Alvarado OCC BLD IMMUNOASSAYon 2021 OCCULT BLOOD Positive Abnormal NEGATIVE [facility] Comment on above: Performed By: #### O ELADIO #### [facility] [address] [place] [address] Dr. Lolita Alvarado PROTIMEon 06-01-2022 INR Coag (PPP) [Relative time] 1.62 {INR} Normal [facility] Comment on above: Performed By: #### P T, PTT #### [facility] [address] [place] [address] Dr. Lolita Alvarado INR GUIDELINES SEE BELOW Normal [facility] Comment on above: Result Comment: TOSHA RED INR: 2.0 - 3.0 CONDITIONS NOT LISTED BELOW 2.5 - 3.5 FOR PROSTHETIC HEART VALVE REPLACEMENT 2.5 - 3.5 RECURRENT THROMBOSIS Performed By: #### P T, PTT #### [facility] [address] [place] [address] Dr. Lolita Alvarado PT Coag (PPP) [Time] 17.0 s Critically high 9.0-11.6 [facility] Comment on above: Performed By: #### P T, PTT #### [facility] [address] [place] [address] Dr. Lolita Alvarado PTTon 06-01-2022 aPTT Coag (Bld) [Time] 40.2 s Critically high 22.3-36.2 [facility] Comment on above: Performed By: #### P T, PTT #### [facility] [address] [place] [address] Dr. Lolita Alvarado Covid-19 PCR ([facility])on 05-06 SARS-CoV-2 (COVID-19) RNA EDWIN+probe Ql (Unsp spec) Not detected Normal NOT DETECTED [facility] Comment on above: Result Comment: This test is not yet approved or cleared by the [place] FDA. When there are no FDA-approved or cleared tests available, and other criteria are met, FDA can make tests available under an emergency access mechanism called an Emergency Use Authorization (EUA). The EUA for this test is supported by the [place] of Health and Human Service's (HHS's) declaration [...] consistent with SARS-CoV-2. Performed By: #### C [facility] #### [facility] [address] [place] [address] Dr. Loliat Alvarado US NOLBERTO DOP LEG LTon 05-25-20 [...] left leg *Exam performed in accordance with [facility] practice guidelines- Peripheral venous ultrasound, January 29, 2010. Electronically authenticated by: SHERYL SRINIVASAN Date: 2022-05-25 16:09 Normal [facility] US NOLBERTO DOP LEG LTon 04-28-20 [...] and mid calf. There may be a electromechanic extending to the region of the thrombosis. The remaining deep venous structures are patent. 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 This finding was placed in the stat call folder. 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 Electronically authenticated by: CHUCK TATUM Date: 2022-04-28 19:31 Normal [facility] POINT OF CARE GLUCOSEon 06- Glucose [Mass/Vol] 86 mg/dL Normal 74-106 [facility] Comment on above: Performed By: #### C BC #### [facility] [address] [address] [address] Lolita Alvarado Encounters Encounter Date Encounter Type Care Provider Facility Start: 12-14-2023 End: 12-14-2023 ambulatory JAMAL Reid ANAHI Not Available Start: 12-14-2023 End: 12-14-2023 Postop follow up visit related to original px Jamal Vizcarra PA Work Phone: [facility] Comment on above: S/P right knee arthr oscopy (Primary Dx) Start: 11-16-2023 End: 11-16-2023 ambulatory JAMAL VIZCARRA Not Available Start: 10-26-2023 End: 10-26-2023 ambulatory JAMAL VIZCARRA Not Available Start: 10-11-2023 End: 10-16-2023 Evaluation and management of inpatient Brando Garcia Facility:[facility] Start: 10-10-2023 End: 10-10-2023 ambulatory JOB [...] Start: 11-01-2022 End: 11-01-2022 ambulatory Santiago Otto Facility:[facility] Start: 11-01-2022 End: 11-01-2022 ambulatory MD Santiago Otto Work Phone: [facility] Work Phone: Start: 11-01-2022 End: 11-01-2022 Patient encounter procedure MD Santiago Otto Work Phone: [facility] Work Phone: Start: 10-23-2022 End: 10-24-[address] SATNIAGO OTTO . Facility:[facility] Start: 10-16-2022 End: 10-17-2022 ambulatory RACHANA KENT Facility:[facility] Start: 10-11-2022 End: 10-11-2022 ambulatory Rachana Kent Other [facility] [employer] Other Start: 10-11-2022 Telephone encounter Rachana Kent F PG [facility] Start: 09-12-2022 End: 09-13-[address] SANTIAGO OTTO . Facility: Start: 08-29-2022 End: 08-30-2022 ambulatory Arie BERGERON Facility:[facility] Start: 08-29-2022 End: 08-29-2022 Patient encounter procedure Arie BERGEORN General Surgery Nill/Said Francesca Start: 08-22-2022 End: 08-23-2022 ambulatory BRAD CALDWELL Facility:[facility] Start: 08-16-2022 End: 08-17-2022 ambulatory Arie BERGERON Facility:CD:[id number] Start: 08-12-[address] ARIE BERGERON . Facil ity:[facility] Start: 08-10-2022 End: 08-11-[address] SANTIAGO OTTO . Facility:[facility] Start: 08-10-2022 Encounter for other preprocedural examination DR ARIE BERGERON . [facility] Start: 08-08-2022 End: 08-09-[address] [...] 06-13-2022 End: 06-14-2022 [facility] Start: 06-02-2022 ambulatory [facility] Start: 06-02-2022 End: 06-03-[address] [...] Louis jennie NILL Extraction of cataract Louis BERGERON Plan of Treatment Date Care Activity Detail Author Start: 08-14-2024 End: 08-14-2024 Patient encounter procedure 08/14/2024 10:45 AM EDT Office Visit [facility] [address] [place] [id number] Nathalie Horne MD [address] [place] [address] [facility] Start: 08-06-2024 End: 08-06-2024 Telemedicine consultation with patient 08/06/2024 9:30 AM EDT Telemedicine [facility] [id number] [place] [address] Jr. Job Aguilar, [address] [facility] [address] [place] [address] [facility] Start: 07-06-2023 Influenza vaccination Influenza Vaccine (#1) [facility] Immunizations Immunization Date Immunization Notes Care Provider Fa [facility] 08-17-2020 influenza virus vacc ine, unspecified formulation Jamal MARIE Work Phone: [facility] Payers Date Payer Category Payer Unknown AARP AARP [id number]-Present [address] [place] [address] [id number]. [id number] 2022 Unknown [id number] 2003 Medicare MEDICARE MEDICAR E PART B [id number] 2003-[place] [address] Medicare [id number].3. [id number] 1959 Medicare [id number] 1959 Self-pay 1959 Unknown [id number] 1938 Unknown [id number] 2.16.840.1.258963.3.579.2.727 1938 Unknown [id number] 2.16.840.1.776226.3.579.2.727 1938 Unknown [id number] 2.16.840.1.525908.3.579.2.727 1938 Unknown [id number] 2.16.840.1.254707.3.579.2.727 1938 Unknown [id number] 2.16.840.1.789433.3.579.2.593 1938 Unknown [id number] 2.16.840.1.351925.3.579.2.593 1938 Unknown [id number] 2.16.840.1.488658.3.579.2.593 1938 Unknown [id number] 2.16.840.1.116965.3.579.2.593 1938 Unknown [id number] 2.16.840.1.938554.3.579.2.593 1938 Unknown [id number] 2.16.840.1.793512.3.579.2.593 1938 Unknown [id number] 2.16.840.1.874205.3.579.2.593 1938 Unknown [id number] 2.16.840.1.164754.3.579.2.593 1938 Unknown [id number] 2.16.840.1.924212.3.579.2.593 1938 Unknown [id number] 2.16.840.1.715113.3.579.2.593 1938 Unknown [id number] 2.16.840.1.228809.3.579.2.593 1938 Unknown [id number] 2.16.840.1.758315.3.579.2.593 1938 Unknown [id number] 2.16.840.1.084120.3.579.2.593 1938 Unknown [id number] 2.16.840.1.267693.3.579.2.593 1938 Unknown [id number] 2.16.840.1.391633.3.579.2.593 1938 Unknown [id number] 2.16.840.1.519382.3.579.2.59 1938 Unknown [id number] 2.16.840.1.309318.3.579.2.593 1938 Unknown [id number] 2.16.840.1.533897.3.579.2.59 1938 Unknown [id number] 2.16.840.1.194230.3.579.2.593 1938 Unknown [id number] 2.16.840.1.855858.3.579.2.59 1938 Unknown [id number] 2.16.840.1.309498.3.579.2.593 1938 Unknown [id number] 2.16.840.1.967857.3.579.2.593 1938 Unknown [id number] 2.16.840.1.770709.3.579.2.593 1938 Unknown [id number] 2.16.840.1.758386.3.579.2.593 1938 Unknown [id number] 2.16.840.1.185750.3.579.2.593 1938 Unknown [id number] 2.16.840.1.889555.3.579.2.593 1938 Unknown [id number] 2.16.840.1.008790.3.579.2.593 1938 Unknown [id number] 2.16.840.1.318681.3.579.2.593 1938 Unknown [id number] 2.16.840.1.960602.3.579.2.718 1938 Unknown [id number] 2.16.840.1.776323.3.579.2.1259 1938 Unknown [id number] 2.16.840.1.289956.3.579.2.1259 1938 Unknown [id number] 2.16.840.1.678712.3.579.2.1259 1938 Unknown [id number] 2.16.840.1.013824.3.579.2.1259 1938 Unknown [id number] 2.16.840.1.863831.3.579.2.1259 1938 Unknown [id number] 2.16.840.1.087096.3.579.2.1259 Medicare Medicare Outpatient [id number] 1A [id number] Unknown [id number] 2.16.840.1.561832.3.579.2.531 Social History Date Type Detail Facility Start: 06-13-2022 End: 10-05-2023 Tobacco smoking status Never smoked tobacco (finding) [facility] Tobacco smoking status Never [facility] Start: 11-16-2023 Sex Assigned At Female F [facility] Start: 1940 Sex Assigned At Female F [facility] Start: 10-05-2023 Tobacco use and exposure Smokeless tobacco non-user [facility] Start: 11-16-2023 Alcohol intake Lifetime non-d mery (finding) [facility] Start: 11-16-2023 History of Social function [facility] Start: 1940 Sex Assigned At Not on file [facility] Clinical Notes 06-01-2022 to 12-14-2023 FRANK Dangelo - 12/14/2023 10:15 AM EST Note Date & Type Note Facility 12-14-2023 History of Present illness Narrative Images from the original note were not included. HISTORY OF PRESENT ILLNESS: POST OP PT Alicia Nguyễn is an 83 y.o. @ female. No surgery found s/p surgery onNo surgery found (EST PT) S/P (R) KNEE SCOPE W/ LAVAGE & SYNOVECTOMY 10/11/23 (9WKS 1DAY)- DOING WELL- CONTINUES PT @ [facility] 3[facility]; INCREASE ROM/STRENGTH- SOME DISCOMFORT WITH EXERCISES - USES WALKER WHEN OUTSIDE OF HOME- PT STATES SHE STILL HAS DIARRHEA FROM ATB- PT IS NO LONG ON ATB- PT IS TAKING IMODIUM JULISA: PT STATES SHE HAD A FALL 11/13/23 ; STATES SHE THINKS HER BLOOD PRESSURE DROPPED WHEN SHE GOT UP TOO QUICK OUT OUT OF HER CHAIR - STATES SHE DID NOT HIT HER KNEE. REVIEW OF SYSTEMS: General: Denies fever, fatigue or weight loss Lungs: Denies SOB Cardio: Denies chest pain GI: Denies indigestion or abdominal pain Neuro: Denies numbness or tingling, denies new onset paralysis Musculoskeletal: ( see note) PHYSICAL EXAM: Knee Musculoskeletal Exam Gait Antalgic: right Inspection Leg length disparity: no discrepancy Right Erythema: none Effusion: mild Edema: none Ecchymosis: none Deformity: none Alignment: valgus Previous incision: arthroscopic portals Incision: well-healed Palpation Right Right knee palpation is unremarkable. Increased warmth: none Masses: none Crepitus: patellofemoral and lateral Tenderness: present Lateral joint line: moderate Patella: mild Range of Motion Right Right knee range of motion is normal and full. Active extension: 0 Passive extension: 0 Active flexion: 100 Passive flexion: 100 Strength Right Right knee strength is normal. Extension: 5/5. Extension is affected by pain. Flexion: 5/5. Flexion is affected by pain. Instability Right Instability signs: none - stable Anterior drawer: normal Neurovascular Right Right knee neurovascular exam is normal. Pulses - PT: normal Posterior tibial: 2+ Capillary refill: warm and well-perfused Special Signs Right Right knee special signs are normal. Patellar apprehension: none General Constitutional: appears stated age Labored breathing: no Psychiatric: normal mood and affect Neurological: alert Skin: intact Lymphadenopathy: none Procedures No orders of the defined types were placed in this encounter. ASSESSMENT: ICD-10-CM 1. S/P right knee arthroscopy Z98.890 PLAN: Discussed patient's progress, minimal reliance on a walker, does not use walker in the home. She is meeting with her PCP for evaluation of diarrhea, taking jqla-uno-dhclgoo medications. States she feels like they are starting to improve, she reports being tested for C diff. She may follow up p.r.n. with our office unless she develops knee pain she should call for re-evaluation. Patient thankful patient pleased with progress notes she is much better now than she was in late September. No signs or symptoms of infection. Questions answered in laymen terms at the bedside. The diagnosis, home exercise plan and any ongoing restrictions/ recommendations reviewed. If unable to be reached in office, I recommend evaluation at nearest Emergency Room if any symptoms worsened or new symptoms develop for requiring urgent evaluation. FRANK Dangelo documented in this encounter [facility] 10-17-2023 Note [id number] E7#1.00[facility] 10-17-2023 Note [id number] D#1.00[facility] 10-17-2023 Note [id number]#1.00[facility] 10-16-2023 Note Education Materials POST OPERATIVE [...] #8 follow up in office with physician assistant refinery operator Joe Vizcarra as scheduled #9 [facility] will be contacting you within the next 24 hours to set up home therapy visits #11 You have been given a prescription for Buckeye, norco is narcotic, narcotics are addictive. If you feel you have problems with addiction please feel free to contact Dr. Aguilar, your family physician, or proceed to the nearest hospital's emergency services department. [facility] 10-16-2023 Note [facility] Clinical Discharge Summary PERSON INFORMATION Name ALICIA NGUYỄN Age 83 Years 1940 Sex FEMALE Language Nigerian PCP SANTIAGO OTTO Marital Status Phone Med Service Med/Surg Acct# Arrival 10/11/2023 06:57:39 Visit Reason SURGERY - RIGHT KNEE SCOPE Acuity LOS 005 01:37 Address: [address] [place] [address] Comment: PROVIDER INFORMATION VITALS INFORMATION Vital Sign [...] range between ( 1.3 and 2.9 ) [place] Abs#: 0.8 x103/mcL -- Normal range between ( 0.0 and 0.8 ) Auto Baso %: 0.2 % -- Normal range between ( 0.2 and 2.0 ) Auto [place] %: 9 % -- Normal range between [...] ( 32 and (more content not included)... [facility] 10-17-2022 Note PROCEDURE: XR SCAPUL A [...] good condition. CC: Santiago Otto M.D. [facility] 07-27-2022 Note CONSULTATION PROCEDURE DATE: 07/27/2022 [...] be followed up in the office. [facility] 07-27-2022 Note CONSULTATION CONSULTATION DATE: 07/27/2022 [...] agrees with the plan of care. [facility] 06-13-2022 Note Chief Complaint consultation for [...] Cirrhosis of liver: Father. Heart disease: Mother. [facility] Comment on above: Result Comment: Elec tronically [...] Patient is in agreement to this. [facility] 06-01-2022 Note CONSULTATION PROCEDURE DATE: 06/01/2022 [...] and patient tolerated the procedure well. [facility] Evaluation + Plan note No data available for this section General [facility] [place] Evaluation note No Information [facility] Other Evaluation note No assessment information [facility] Work Phone: Evaluation note Diagnosis S/P right knee arthroscopy- Primary documented in this encounter [facility] N[facility]ative - Reported* Type Description Date Medical History appendectomy Medical History Arthritis Medical History cataracts Medical History diabetes mallitus Medical History gall bladder disease Medical History hypertension Medical History thyroid disease Surgical History appendectomy Surgical History bladder suspension, unspecified Surgical History gall bladder Surgical History knee replacement Hospitalization History see surgical hx [employer] Other Hospital Discharge instructions No data available for this section [facility] Progress note No data available for this section General Surgery [place] Summary Purpose Family History No Family History Records FoundNo Family History Records FoundNo Family History Records FoundNo Family History Records FoundNo Family History Records Found Advance Directives Advance Directive Response Recorded Date/ Time Advance Directives No October 2:29pm Chief Complaint and Reason for Visit Chief Complaint r91.8 Additional Source Comments Patient Care team informatio n (unrecognized section and content) Team Status: Inactive Member Role Status Dates Santiago Otto MD Primary Care Provider, Attending Pr lg Active Team Status: Active Member Role Status Dates Santiago Otto MD Primary Care Provider Active Pulmonology Technician Relationship Specialty Start Date End Date Santiago Otto MD [address] [place] [address] PCP - General Family Medicine 10/05/23 INFORMATION SOURCE (unrecogn ized section and content) DATE CREATED AUTHOR 09/18/2022 [facility] DATE CREATED AUTHOR AUTHOR'S ORGANIZ ATION 11/14/2022 [facility] DATE CREATED AUTHOR AUTHOR'S ORGANIZ ATION 04/13/2023 [facility] DATE CREATED AUTHOR AUTHOR'S ORGANIZ ATION 11/02/2023 [facility] DATE CREATED AUTHOR AUTHOR'S ORGANIZ ATION 12/15/2023 [facility] dical Specialists EPIC REASON FOR VISIT (unrecogniz ed section and content) Reason Comments Pain Goals (unrecognized section and content) Goals may [...] BE BASED ON THE PRIMARY CLINICAL RECORDS. [facility] [employer] vascular solution, [facility]. provides no warranty or guarantee of the accuracy or completeness of information in this document.
--- OUTSIDE RECORDS SUMMARY | 2023-12-25 11:25 | XMS_ITS | CCD ---
Author Name Unknown Address [address] [facility] [address] [place] [address] Organization [facility] Care Team Providers Care Constitutional Law Professor Name Role Phone Santiago Otto Primary Care Physician Arie BERGERON Attending Unavailable Kelvin PROVIDERSantiago Referring Unavailabl e Arie BERGERON Attending Unavailable Arie BERGERON Attending Unavailable Arie BERGERON Attending Unavailable Rachana Kent Unavailable MD Santiago Otto Primary Care Provider [phone] MD aSntiago Otto Attending Provider Santiago Otto Attending Santiago [...] HOY ., DR HENDERSON Admalina Unavailable NEFCY, BRDA Consulting Unavailable HOY ., DR HENDERSON Primary [...] RACHANA Admitting Unavailable BLADES, RACHANA Attending Unavailable SULPHUR ROCK, DR SHERYL Navarrete Consulting Unavailable HOY ., DR HENDERSON Primary Care Unavailable ZIEBER, DR RIGO Love Consulting Unavailable RACHANA KENT Consulting Unavailable GARCAI ., DR IVANIA Ledezma Admitting Unavailable GARCIA [...] Unavailable Santiago Otto MD Primary Care Provider [phone] Allergies Allergy Classification Reported Allergen(s) Allergy Type Date of Onset Reaction(s) Facility (1 source) No Known Medication Allergies; Translations: [No Known Medication Allergies] Propensity to adverse reactions (disorder) [facility] Repository Medications Current Medications Medication Drug Class(es) Dates Sig (Normalized) Sig (Original) 8 hr acetaminophen 650 mg extended release oral tablet (2 sources) acetaminophen (Tylenol 8 Hour Arthritis Pain) 650 MG ER tablet every 8 (eight) hours. 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; Translations: [DETENTION CURRENT USE OF ASPIRIN] Onset: 08-24-2022 Episodic Other aftercare (1 source) Other chcf (current) drug therapy; Translations: [OTH DETENTION CURRENT DRUG THERAPY] Onset: 05-01-2022 Episodic Other [...] Coding Summaryon 10-22-2023 Coding Summary HTMLBase 64 BwipbdkcBTt6wGg+PGhlYWQ+PE1FV RVfU84hxCHucK6qS2DIJEaALwplJJ EUJCkCPtJvnhVnUA9mqGFgTQWf IC8+NN8zMBYfSgfrtAVoy7T0sUB4I 92whm7jWQlnnQH0XUCsUeUqfzdbk5 zmdDb8GYfkXkagMqAk YJSkmG87XAF9rS19Dq75xDUbaUOhl 0xtuVd0InZkLYEySHF4uKcxZIygz7 OmHRCpV34kfWNaa0E7 MWYnlPczyQYdEhTwvHB5zF5iFSafr ppot8sibqwgQew5op74kDItz6R6aU E7V6AekqC0DAVbyHPf RvvwfUSAwF6oqbvph9mzprijLpTuW NEqRLw8LVw6KTRmpAssJcVwOM16TY V9KCOfpqCpG2ZpSAId bFpnQyE2z1P3Uk9EW6APClwsS7DVC UFSWTwvdGQ+UW35pj31B2VhPbgoFj n9KDToYKD6oLP4mF2n ZMJzBXonx0C4xWX5A6MexvWeqx0nm 3uhVUUxRGqxV96kcSLgy5N3FVWlnO K5YKAziZtnXtCkcB32 Oyc+PLQpqKajs2NkAyvkk5gxh3eqm Hc7AlsdKLQrhkTjqYdfCNS6t6DrMb 9kMZTbzID8gPK2bC2f MqJqSeM3TKnwO031OvKisKWvAhzeP 35iU4RtiAS+NGMnMqm5QOOixPnxYI 8dH8NgLSCrhhcnoNXw wJoiRC1hVDIazmivPWSqmN0aHUBbV 4l3JaSdZnF2HWuuH9AkFKHbtyacRy 96eT6wOlDuVjY8ARvn O2FdabR6FCXzqVZyNGubTIO0I21ho 6B0BKEeMDYlKTO7mYH4qA3rqAnyjq ogbGVmdDsgdmVydGlj YJcyGTdkK463RGIycIwgQzEyLFrjZ yBEYXRlOiAgMTIvMTgvMjAyMzwvdG Q+PBHuRXZ2qJvcJSZf lVMbAUpkSw7qjTpdgVltFR9gZIGzn wlzRCFxxR3hMSPqvUFdeIcdXQ3bUX Esvgzck217IvTcVSS0 LTCmhUShP9LyiW9aEjGyDZVrUAUpK 3LplSPhHGtbR658ITssEgD7YHCsvw HtZ2MoPQUkvJgbSzI7 a4G3Gm1An5KcvxaxY9AzkMGfIdNmZ fatCTp2P9SkJvlwaCB+AC17DYQsUO 04UPn8QZM3gXzkONmk ITCeW1OehD9vNrMjXOXmIIMdNnw+P HRhYmxlIHdpZHRoPScxMDAlJyBzdH wlVR3sMd2tZXXzSLMt nVzwdUOkVeCvc4lsISZjCHmrEQ0kk HbsJ3OjpDN4YCLjg7b3Un96P92sA6 JvdXA+FISzdPI3tLO0 rZ6fElMtAcL4YUhiR113QsNwmOTsV uqmq7ebq3tbmMh5ZgS8HTVopbWovZ uyXFX5v6XmAw55A65n CNfiBIFfUGJcAUGgIFKltKeiyh3bk G9wIi8+IRKkbDT0kBP9vE7fJmOjRe Q0FHdyF065FbVocXUa Dtzyg9shb9bvwMa5AaUuPZWbzxVyt NcbGYO1s3UwDk33Y2AwmCjor9YkWp x6zy14gYDri6Y9hNT3 R1LbHDOjvwkdlUWbrRnwSI9wJPAlu bsxQKPggV7xLLVtI2m9PxMrEfW6WN ydA2YgysX9HRVrmLVu UWKgaLHSxR3tvuwsn9cxlttsXaAfR CMuIRn2CCw6XNSbbYydEaScOET3Ge D7CUT3uLXtoZ1omZuq zyucfU0nDow+CEH8pEOtiQLZCG2xL jwvdGQ+VSSyTDT8lSblVPffBWVbfH 4uTSOgB6v0QvWtAsG6 AJtqP4IinpI3HONzeZOoKTQsxBDCe A5hqlnci9zqnyftExIjSWIgDBh4QL x8RRRbxDgaImDzCDP4 WyJ8OTA4eVLtzV7vbJjfzvkfqR9hG yc+PtpcbMumBLL5HQg2Y4QaNdb0AY IcoOwvAE3flFSwTPbx Zd0duLjihZyxEY8vTIRtehhcm829J qSyq1rdFOYxmWOgZDdyELE4U90op5 I6PUQqCSVlFEA4gKL8 uS4ksXucxbqlqKWkzWsuicXweZyfG ZdiLOrwG905QGElyLgvUqBwYCj5X7 TuMcc1EUCdrSfzIW2s mHSzIGvlKd2txDvluIwpDY8gWIHgs kamj291KoNud6tfWGSoqQAcOHlwNL N1P58it2I2MXOcJPEd KDS0wOM3pL2rqXxnquubwUBxsKgap gAtlJvyOQbiZXigT379ZWOovVqxMj QppKj3L2DjKob5FROa cJhdIK0izJCjSSqlVq9wrEaayIjsY U0bZEIfydgpg855CaTgd0xsKURewR IgALqtLEE9J43fh2X2 RUTuNEMmLZY7sRI8zQ9ngVufqyeqj CEazSmiseLlnNilKZwzWBekB488NG RvcDsnPlBhdGllbnQg QZzdGBf8H0TxZdphwPQ+JP40CLCkT U83cCJoqLHoi9hmkEb9CzYuEGCkSN P7rHieILtow0KfDEKw J29mjTBeq7Z6EICmyIpcdECwSjGvc OL9sG0sRGaunrbda2gzcdkfWqgcr6 vgah66lW10W67hJFxr WLWoWLGnCQPbAWXucRomhj9osB2bG i8+WZVkkNJ9tRP1aM7wHGLpGtV4OX vkE434QsTlwQSpCgls d4arl0rjgHs6HyQ3LTZesrFodSidL IV9y1LoHr01B91bZTieAVMnLXXeDL NaKBSegAoliy6qyW6e Ii8+PCSqjDW3hTY1fD4yGtFsIbH1W CktS259GuVcwNDlTlgpZ74iM6MdpQ A+CXEeSwn2BFLwtQqp XD9cxGOcPNgyNm9iUAD9YqYsMgOdK KcsY5IwGAVohwohlydtoTQ0ZXQjTF RfuQ94Qy9ktTwrVZPl iWLAsF0xiswja3qjkxfdDsFfKPPcS Yp8CJa8IBMbwCpoJwZmYBZ7OkS7ZH J2bYEliM3mwPqfytge sN4nX2IqWECwrlspIw25pD2nZmZuC qT3WPqfSrm+UkFJRlNOSURFUiwgTU FSWSBBTElDRTwvdGQ+ YXHqZYK6jGxxITncCHQezW9rNHYjU 0v9PdNyWiP8MElqX2TyJUIssrcpVb 50hQ4fRkWlIgM2EQup P6WaqxR2LSRamWApEPetTHJ1T18au 8R0LUYcFLRuBBZ2jOG2aP8itHrxbg ogbGVmdDsgdmVydGlj ZFmoEIarG647AAJssJbrNmB0WkFbS kJ8Ihl8A8ZcFxz2LVLpvXytQK2wpK VkDSmzWk2siBncuNzb OG9nAHVannjuMMFhqW5uNBAkjCOvk RceMQ5kCLSnodfdl686LyIcIGZ3EJ UjbVEtM4NcqF0lGvKx LZSaPSWiL4VdrDJlOVxkD141CSrkN aF7EBNyxsKrF3KfKTTavTtwEtE9d7 V1Pq35YWCPSKNixaha dGQ+LWDaEBE5qPjgOWpkBKFgaY0aX BWdI3t8GhGyOwA8UYydR7QzDQIgla ebKg60dW3yDdJdApE7 RJbiL3TrdkZ4OLMzsMByQYeyWTY3X 35af2N5ZCApBFNoRRQ7lPI8mD0giX lnbjogbGVmdDsgdmVy gRxcJZeoMVwoL156VGBubDobVnULN UFMRTwvdGQ+IIOoARV3eMquUDzrLM EfoK0nMPVfX7h4FxEs GwL5MDxvT4TvQCSkqgmlAq05uX0fQ qKeMxY3KRftM8QlfzC3XYTlbCRsLE zyCQP4Q99dl8W5SGWv TWPxGUO3kCN7nV6clCinsmgtjWGqo UnqaeBxiGceNOsiVOkzV776HZUchH qpOanjkVA4eXZjuClp dGQ+QL98zz65Q0MuFzboQbc3NKJtY BA5lSC6fD7cZBJoWZsbo1R8dPR3P0 ZgaeYdjk1rw1jlBHNm NMqyO60evJOfd2E9KDJfpUS5VDCae EhqTjSclH50Efq+CLDtuPbem0VvWn yrv0qcy9xyvFh4SwIp YYXpncQmuCsgKKN2x3IoIa96H34kY AhoZOAkBVMyVQRoFYFsuVxakm5tiR 9wIi8+LDSreCG7aKT2 oN7rTcEcQoI2JYozK279TwMvtCGzR cbwi7bzz4kbnPn5LyTdGOChhtQkeB ykGAX1q0DqQf95R1Af kDwtw6PpCxz3hl81qJXiw7R5iRM1C 7YpBFPutiyyeZCujBnxXZ3rJDEzam xjBDVnqT0lPQDzB2p9 OuOzQaF5NIjjZ2MyafB3YSFjkENvK TGcaGMFdP2abhnsk0zxygbpQaGtZY ZyOYb7AHo6TPMwwDbx RiUxIRI0WkO3IQZ9pHNsfP0ofNxuh nqkiK9fQex+LIz0c1jclUXrHY3skG U0VL82DT29fFKfz6V8 tHJ3S7HsTNSuxvilqtvsjVW4YYKtR OYgcO18Do7prErtGi6tKZSbGYI9JS UbqKWgL2UlbG8lWzYp CJFpLHDlS1EtzSYrDNsiA544BVdmR nE7FTEcytYuB1VmFUZxuJaxAwY1b3 E2Un6GKD36AB13HA26 eFWqu5F5qFO8Z4PzSRFeftlmvlxxx DN8JCFbEWQyxI39Hm2czPaoRw9pHN KrJQN0LNIuiKJhD4Zd mJ8pBxIlQPQtCUFmS3JkwJPsKHiiB 453OTnkHlO4LTYxbtQmR0EyJORwnG snQwW7m1R5Pm1QJa18 OU12DF60yVXqn1V5hZO3B4KkLMTzy hgpmkdbtXV6VAAsWOWniZ03We2eaK tfYe8yYLWzZXL2FTNm wOCfL1VmuW2bLfTkTNAoBFBhN9Wzx YHxMFadM136KEcfAeW5FVEryeVmZ7 HoZFBbyZtgZbB3l9Z9 Bq1HTNswjvu6J8AgAstfkCJ+PC90Y COwSP61hRQdkHQbx0qfjLh3RwGbIV FlVOE6wJpoJJjui5Ej ZXI (more content not included)... Normal [facility] C Bloodon 10-18-2023 C Blood No growth at 5 Days Normal [facility] Comment on above: Performed By: #### 2 [id number], [id number] #### [facility] (DEFAULT) [address] [place] [address] Consent Formson 10-17-2023 Consent Forms [id number]#1.00[facility] Outside Recordson 10-17-2023 Outside Records [id number]#1.00[facility] Provider Orderson 10-17-2023 Provider Orders [id number]#1.00[facility] Telemetry Stripson Telemetry Strips [id number]#1.00[facility] Therapeutic Documentation on 10-16-2023 Therapeutic Documentation [id number]#1.00[facility] C Bloodon 10-16-2023 C Blood patient went to CAT scan Nurse from [address] [place] [address] will call when patient is back to her room @1440 nabil No growth at 5 Days [facility] Comment on above: Performed By: #### 6 [id number] ####[facility] (DEFAULT)[address] [place] [address] CRPon 10-16-2023 CRP 3.1 mg/dL High <=0.5 [facility] Comment on above: Performed By: #### 2 [id number], [id number] #### [facility] (DEFAULT) [address] [place] [address] Inpatient Patient Summaryon 10-16-2023 Inpatient Patient Summary [address] [address] Patient Discharge Instructions Name: ALICIA NGUYỄN : 1940 Patient Address: [address] [place] [address] Primary Care Provider: Name: SANTIAGO OTTO After you are discharged if you find you have any questions, please, call [phone] ext [phone] to speak to a nurse. The Pharmacy at [facility] is open Sunday through Sunday [...] alcohol and/or drug addiction problems; contact the [facility] 28/05 Crisis Hotline -Text 1WDRX to 984507. If you received any narcotics, sedation, or [...] business decisions or sign any legal documents [facility] would like to thank you for allowing us to assist you with your healthcare needs. The following includes patient education materials and information regarding your injury/illness. ALICIA NGUYỄN ALICE has been given the following list of follow-up instructions, prescriptions, and patient education materials: Follow-up Instructions With: Address: When: JOB AGUILAR DO [address] [facility] [address] [place] [address] Within 10 to 12 days Comments: orthopedic follow up With: Address: When: Jamal Vizcarra [address] [place] [address], [address] [place] [address] Business (1) 10/26/2023 10:30 AM [...] o (more content not included)... [facility] Pharmacy Noteon 10-16-2023 Pharmacy Note I [...] list against external fill history and available [employer] medication history to ensure accuracy. Reviewed regimen upon discharge which is appropriate and correct. Did not patient financial counselor patient is going to snf. [Electronically Signed on: 10/16/2023 11:12 EST] Jamal Butler [Verified on: 10/16/2023 11:12 EST] Jamal Butler Normal [facility] Sed Rateon 10-16-2023 Sed Rate 83 mm/hr High 0-20 [facility] Comment on above: Performed By: #### 2 [id number], [id number] #### [facility] (DEFAULT) [address] [place] [address] .Auto Diff 1on 10-15-2023 Auto [place] % 9 % Normal -12 [facility] Comment on above: Performed By: #### 2 211112, [id number], 86211179, 6227170, 4847977 #### [facility] (DEFAULT) [address] [place] [address] Baso Abs# 0.0 x10 Normal 0.0-0.2 [facility] Comment on above: Performed By: #### 2 027671, [id number], 65431341, 4525262, 4941349 #### [facility] (DEFAULT) [address] [place] [address] Basophils/100 WBC (Bld) 0.2 % Normal 0.2-2.0 [facility] Comment on above: Performed By: #### 2 917728, [id number], 71482017, 7149716, 3195820 #### [facility] (DEFAULT) [address] [place] [address] Eos Abs# 0.1 x10 Normal 0.0-0.4 [facility] Comment on above: Performed By: #### 2 551713, [id number], 79543991, 9330612, 7223813 #### [facility] (DEFAULT) [address] [place] [address] Eosinophils/100 WBC (Bld) 0.8 % Low 0.9-4.0 [facility] Comment on above: Performed By: #### 2 669523, [id number], 75098988, 9359231, 5136541 #### [facility] (DEFAULT) [address] [place] [address] Lymph Abs# 1.1 x10 Low 1.3-2.9 [facility] Comment on above: Performed By: #### 2 309652, 6195038215, 02178736, 1990830, 2790445 #### [facility] (DEFAULT) [address] [place] [address] Lymphocytes/100 WBC (Bld) 13 % Low 14-48 [facility] Comment on above: Performed By: #### 2 951796, [id number], 04830504, 0776937, 4835963 #### [facility] (DEFAULT) [address] [place] [address] [place] Abs# 0.8 x10 Normal 0.0-0.8 [facility] Comment on above: Performed By: #### 2 695147, [id number], 87455453, 6994945, 0157090 #### [facility] (DEFAULT) [address] [place] [address] Neut Abs# 6.5 x10 Normal 1.5-9.2 [facility] Comment on above: Performed By: #### 2 721231, [id number], 92348448, 3436159, 3548209 #### [facility] (DEFAULT) [address] [place] [address] Neutrophils/100 WBC (Bld) 76 % Normal 44-88 [facility] Comment on above: Performed By: #### 2 484013, [id number], 86851800, 7968336, 4831707 #### [facility] (DEFAULT) [address] [place] [address] BMP Standardon 10-15-2023 Breakpoint Chem Normal [facility] Comment on above: Performed By: #### 2 879575, [id number], 21134110, 3168833, 5395501 #### [facility] (DEFAULT) [address] [place] [address] eGFR Non AA >60 Invalid Interpretation Code [facility] Comment on above: Performed By: #### 2 539989, [id number], 40929703, 0459448, 3161787 #### [facility] (DEFAULT) [address] [place] [address] eGFR AA >60 Invalid Interpretation Code [facility] Comment on above: Performed By: #### 2 687528, [id number], 51510364, 6387865, 0893915 #### [facility] (DEFAULT) [address] [place] [address] Anion gap [Moles/Vol] 7.4 mmol/L Normal 5.0-19.0 [facility] Comment on above: Performed By: #### 2 325956, [id number], 44944267, 4579559, 3491243 #### [facility] (DEFAULT) [address] [place] [address] Calcium [Mass/Vol] 8.8 mg/dL Low 8.9-10.3 [facility] Comment on above: Performed By: #### 2 940981, 6785262690, 93937541, 6865223, 0848090 #### [facility] (DEFAULT) [address] [place] [address]47 Chloride [Moles/Vol] 106 mmol/L Normal 101-111 [facility] Comment on above: Performed By: #### 2 639076, 1685422607, 36578963, 4371220, 5596839 #### [facility] (DEFAULT) [address] [place] [address] 33875 CO2 [Moles/Vol] 26 mmol/L Normal 21-32 [facility] Comment on above: Performed By: #### 2 751666, 8875535283, 85135395, 9786685, 5029950 #### [facility] (DEFAULT) [address] [place] [address]269 Creatinine [Mass/Vol] 0.88 mg/dL Normal 0.60-1.30 [facility] Comment on above: Performed By: #### 2 152585, 2947837672, 06753162, 9137867, 1742964 #### [facility] (DEFAULT) [address] [place] [address]115 Glucose [Mass/Vol] 109.0 mg/dL Normal 74.0-118.0 [facility] Comment on above: Performed By: #### 2 464209, [id number], 35325571, 4874766, 0257280 #### [facility] (DEFAULT) [address] [place] [address] Osmolality 273 mOsm/L Invalid Interpretation Code [facility] Comment on above: Performed By: #### 2 268659, [id number], 21156281, 3870404, 7235474 #### [facility] (DEFAULT) [address] [place] [address]85 Potassium [Moles/Vol] 4.4 mmol/L Normal 3.6-5.1 [facility] Comment on above: Performed By: #### 2 014025, [id number], 71695895, 2862217, 0811298 #### [facility] (DEFAULT) [address] [place] [address]9962 Sodium [Moles/Vol] 135.0 mmol/L Low 136.0-144.0 [facility] Comment on above: Performed By: #### 2 200422, [id number], 48331340, 4600876, 5459027 #### [facility] (DEFAULT) [address] [place] [address] Urea nitrogen [Mass/Vol] 19 mg/dL Normal 8-26 [facility] Comment on above: Performed By: #### 2 320276, [id number], 70064515, 3528245, 8217860 #### [facility] (DEFAULT) [address] [place] [address] Urea nitrogen/Creatinin e [Mass ratio] 21.5 mg/mg High 4.6-16.2 [facility] Comment on above: Performed By: #### 2 246737, [id number], 37293601, 2717330, 7522634 #### [facility] (DEFAULT) [address] [place] [address] CBC w/ Auto Diffon Erythrocyte distribution width (RBC) [Ratio] 15.3 % High 11.5-15.0 [facility] Comment on above: Performed By: #### 2 779698, [id number], 25468225, 7022440, 7095262 #### [facility] (DEFAULT) [address] [place] [address] Hematocrit (Bld) [Volume fraction] 29.8 % Low 33.7-40.4 [facility] Comment on above: Performed By: #### 2 179077, 1100688498, 66676748, 6377391, 4005064 #### [facility] (DEFAULT) [address] [place] [address] Hemoglobin (Bld) [Mass/Vol] 9.9 g/dL Low 11.3-15.9 [facility] Comment on above: Performed By: #### 2 575556, 1030910401, 34598394, 6069238, 0429182 #### [facility] (DEFAULT) [address] [place] [address] Man Diff? Auto Invalid Interpretation Code [facility] Comment on above: Performed By: #### 2 395622, [id number], 07298386, 0289522, 8957558 #### [facility] (DEFAULT) [address] [place] [address] MCH (RBC) [Entitic mass] 30 pg Normal 24-34 [facility] Comment on above: Performed By: #### 2 084064, 8331304661, 28771938, 1983814, 6343399 #### [facility] (DEFAULT) [address] [place] [address] MCHC (RBC) [Mass/Vol] 33 g/dL Normal 26-37 [facility] Comment on above: Performed By: #### 2 611079, 6779551061, 91146685, 0368375, 9453954 #### [facility] (DEFAULT) [address] [place] [address] MCV (RBC) [Entitic vol] 90 fL Normal 81-100 [facility] Comment on above: Performed By: #### 2 426826, 9763979779, 16728185, 6597689, 7490268 #### [facility] (DEFAULT) [address] [place] [address] Platelet 363 x10 Normal 138-427 [facility] Comment on above: Performed By: #### 2 401832, 0444149438, 56067636, 7560009, 3658819 #### [facility] (DEFAULT) [address] [place] [address] Platelet mean volume (Bld) [Entitic vol] 6.1 fL Low 6.3-10.2 [facility] Comment on above: Performed By: #### 2 561337, [id number], 98965736, [id number], [id number] #### [facility] (DEFAULT) [address] [place] [address] RBC 3.31 x10 Low 3.70-5.30 [facility] Comment on above: Performed By: #### 2 [id number], [id number], [id number], [id number], [id number] #### [facility] (DEFAULT) [address] [place] [address] WBC 8.5 x10 Normal 3.5-10.5 [facility] Comment on above: Performed By: #### 2 [id number], [id number], [id number], 8692449, [id number] #### [facility] (DEFAULT) [address] [place] [address] CRPon 10-15-2023 CRP 2.1 mg/dL High <=0.5 [facility] Comment on above: Performed By: #### 2 [id number], [id number], [id number], [id number], [id number] ####[facility] (DEFAULT)[address] [place] [address] Nutrition Noteon 10-15-2023 Nutrition Note Per intake records, Pts avg 75+% of meals. Last BM 10/13. 10/15 labs reviewed, CRP/sed rate slowly improving. PICC line in place for IV atb. Discharge anticipated for tomorrow. Normal [facility] Sed Rateon 10-15-2023 Sed Rate 78 mm/hr High 0-20 [facility] Comment on above: Performed By: #### 2 [id number], [id number], [id number], [id number], [id number] ####[facility] (DEFAULT)[address] [place] [address] XR Chest 1 View Frontalon XR Chest [...] DO 10/15/23 1:04 pm Technologist: YANIB Normal [facility] C Fluidon 12-10-2023 C Fluid Moderate [...] <=0.5 Verified Vanc S 0.5 Verified Normal [facility] Comment on above: Performed By: #### 2 [id number], [id number] #### [facility] (DEFAULT) [address] [place] [address] CRPon 10-14-2023 CRP 1.8 mg/dL High <=0.5 [facility] Comment on above: Performed By: #### 2 [id number], [id number] #### [facility] (DEFAULT) [address] [place] [address] Sed Rateon 10-14-2023 Sed Rate 74 mm/hr High 0-20 [facility] Comment on above: Performed By: #### 2 [id number], [id number] #### [facility] (DEFAULT) [address] [place] [address] .Auto Diff 1on 10-13-2023 Auto [place] % 5 % Normal - [facility] Comment on above: Performed By: #### 2 [id number], [id number] #### [facility] (DEFAULT) [address] [place] [address] Baso Abs# 0.0 x10 Normal 0.0-0.2 [facility] Comment on above: Performed By: #### 2 498551, [id number] #### [facility] (DEFAULT) [address] [place] [address] Basophils/100 WBC (Bld) 0.2 % Normal 0.2-2.0 [facility] Comment on above: Performed By: #### 2 [id number], [id number] #### [facility] (DEFAULT) [address] [place] [address] Eos Abs# 0.0 x10 Normal 0.0-0.4 [facility] Comment on above: Performed By: #### 2 835791, [id number] #### [facility] (DEFAULT) [address] [place] [address] Eosinophils/100 WBC (Bld) 0.1 % Low 0.9-4.0 [facility] Comment on above: Performed By: #### 2 799724, [id number] #### [facility] (DEFAULT) [address] [place] [address] Lymph Abs# 1.0 x10 Low 1.3-2.9 [facility] Comment on above: Performed By: #### 2 274073, [id number] #### [facility] (DEFAULT) [address] [place] [address] Lymphocytes/100 WBC (Bld) 9 % Low 14-48 [facility] Comment on above: Performed By: #### 2 550526, [id number] #### [facility] (DEFAULT) [address] [place] [address] [place] Abs# 0.6 x10 Normal 0.0-0.8 [facility] Comment on above: Performed By: #### 2 928662, [id number] #### [facility] (DEFAULT) [address] [place] [address] Neut Abs# 10.1 x10 High 1.5-9.2 [facility] Comment on above: Performed By: #### 2 745927, [id number] #### [facility] (DEFAULT) [address] [place] [address] Neutrophils/100 WBC (Bld) 86 % Normal 44-88 [facility] Comment on above: Performed By: #### 2 966307, [id number] #### [facility] (DEFAULT) [address] [place] [address] [facility] Standardon 10-13-2023 Breakpoint Chem Normal [facility] Comment on above: Performed By: #### 2 152355, [id number] #### [facility] (DEFAULT) [address] [place] [address]11 eGFR Non AA >60 Invalid Interpretation Code [facility] Comment on above: Performed By: #### 2 [id number], [id number] #### [facility] (DEFAULT) [address] [place] [address] 23142 eGFR AA >60 Invalid Interpretation Code [facility] Comment on above: Performed By: #### 2 776157, [id number] #### [facility] (DEFAULT) [address] [place] [address] [address] Calcium [Mass/Vol] 8.5 mg/dL Low 8.9-10.3 [facility] Comment on above: Performed By: #### 2 501492, 3963298 #### [facility] (DEFAULT) [address] [place] [address] 90584 Chloride [Moles/Vol] 105 mmol/L Normal 101-111 [facility] Comment on above: Performed By: #### 2 758672, 6287966 #### [facility] (DEFAULT) [address] [place] [address] 20584 CO2 [Moles/Vol] 24 mmol/L Normal 21-32 [facility] Comment on above: Performed By: #### 2 277067, 0972989 #### [facility] (DEFAULT) [address] [place] [address] 96525 Creatinine [Mass/Vol] 0.76 mg/dL Normal 0.60-1.30 [facility] Comment on above: Performed By: #### 2 139979, 1198704 #### [facility] (DEFAULT) [address] [place] [address] 19268 Glucose [Mass/Vol] 113.0 mg/dL Normal 74.0-118.0 [facility] Comment on above: Performed By: #### 2 876424, 9543612 #### [facility] (DEFAULT) [address] [place] [address] 47323 Potassium [Moles/Vol] 4.9 mmol/L Normal 3.6-5.1 [facility] Comment on above: Performed By: #### 2 423711, 4817199 #### [facility] (DEFAULT) [address] [place] [address] 53448 Sodium [Moles/Vol] 135.0 mmol/L Low 136.0-144.0 [facility] Comment on above: Performed By: #### 2 020772, 3004007 #### [facility] (DEFAULT) [address] [place] [address] 71801 Urea nitrogen [Mass/Vol] 33 mg/dL High 8- [facility] Comment on above: Performed By: #### 2 444217, 5487136 #### [facility] (DEFAULT) [address] [place] [address] 28130 Anion gap [Moles/Vol] 10.9 mmol/L Normal 5.0-19.0 [facility] Comment on above: Performed By: #### 2 346025, 0282458 #### [facility] (DEFAULT) [address] [place] [address] 28564 Osmolality 278 mOsm/L Invalid Interpretation Code [facility] Comment on above: Performed By: #### 2 073772, 8281844 #### [facility] (DEFAULT) [address] [place] [address] 41489 Urea nitrogen/Creatinin e [Mass ratio] 43.4 mg/mg High 4.6-16.2 [facility] Comment on above: Performed By: #### 2 741372, 5702017 #### [facility] (DEFAULT) [address] [place] [address] 05499 C Bloodon 10-13-2023 C Blood Bacillus species No ANICETO performed on this organism Results called to Alicia Leonard RN at 2S by CDD and results read back for confirmation on 10/12/2023 05:12:42 Normal [facility] Comment on above: Performed By: #### 2 675467, 8108467 #### [facility] (DEFAULT) [address] [place] [address] 87124 CBC w/ Auto Diffon 3 Erythrocyte distribution width (RBC) [Ratio] 15.0 % Normal 11.5-15.0 [facility] Comment on above: Performed By: #### 2 985138, 8905953 #### [facility] (DEFAULT) [address] [place] [address] Hematocrit (Bld) [Volume fraction] 26.7 % Low 33.7-40.4 [facility] Comment on above: Performed By: #### 2 255158, 8005305 #### [facility] (DEFAULT) [address] [place] [address] Hemoglobin (Bld) [Mass/Vol] 8.9 g/dL Low 11.3-15.9 [facility] Comment on above: Performed By: #### 2 128604, 8387620 #### [facility] (DEFAULT) [address] [place] [address] Man Diff? Auto Invalid Interpretation Code [facility] Comment on above: Performed By: #### 2 333201, 1845836 #### [facility] (DEFAULT) [address] [place] [address] MCH (RBC) [Entitic mass] 30 pg Normal 24-34 [facility] Comment on above: Performed By: #### 2 248379, 8145554 #### [facility] (DEFAULT) [address] [place] [address] MCHC (RBC) [Mass/Vol] 33 g/dL Normal 26-37 [facility] Comment on above: Performed By: #### 2 822190, 8009711 #### [facility] (DEFAULT) [address] [place] [address] MCV (RBC) [Entitic vol] 89 fL Normal 81-100 [facility] Comment on above: Performed By: #### 2 634133, 3315882 #### [facility] (DEFAULT) [address] [place] [address] Platelet 386 x10 Normal 138-427 [facility] Comment on above: Performed By: #### 2 429050, 6493135 #### [facility] (DEFAULT) [address] [place] [address] Platelet mean volume (Bld) [Entitic vol] 6.1 fL Low 6.3-10.2 [facility] Comment on above: Performed By: #### 2 930483, 4065550 #### [facility] (DEFAULT) [address] [place] [address] RBC 3.00 x10 Low 3.70-5.30 [facility] Comment on above: Performed By: #### 2 433807, 2818026 #### [facility] (DEFAULT) [address] [place] [address] WBC 11.8 x10 High 3.5-10.5 [facility] Comment on above: Performed By: #### 2 257761, 9770638 #### [facility] (DEFAULT) [address] [place] [address] CRPon 10-13-2023 CRP 3.2 mg/dL High <=0.5 [facility] Comment on above: Performed By: #### 2 069513, 9195922 #### [facility] (DEFAULT) [address] [place] [address] Sed Rateon 10-13-2023 Sed Rate 82 mm/hr High 0-20 [facility] Comment on above: Performed By: #### 2 874099, 1640875 #### [facility] (DEFAULT) [address] [place] [address] .Auto Diff 1on 10-12-2023 Auto [place] % 6 % Normal - [facility] Comment on above: Performed By: #### 1 4491589, [id number], 4043084 ####[facility] (DEFAULT)[address] [place] [address] Baso Abs# 0.0 x10 Normal 0.0-0.2 [facility] Comment on above: Performed By: #### 1 7019104, 7585230968, 8317955 ####[facility] (DEFAULT)[address] [place] [address] Basophils/100 WBC (Bld) 0.1 % Low 0.2-2.0 [facility] Comment on above: Performed By: #### 1 0229190, [id number], 3517940 ####[facility] (DEFAULT)[address] [place] [address] 10251 Eos Abs# 0.0 x10 Normal 0.0-0.4 [facility] Comment on above: Performed By: #### 1 1230850, 9551766587, 3228354 ####[facility] (DEFAULT)[address] [place] [address] Eosinophils/100 WBC (Bld) 0.0 % Low 0.9-4.0 [facility] Comment on above: Performed By: #### 1 4741664, 6330938538, 4636612 ####[facility] (DEFAULT)[address] [place] [address] Lymph Abs# 0.7 x10 Low 1.3-2.9 [facility] Comment on above: Performed By: #### 1 0622966, 5754698489, 0996094 ####[facility] (DEFAULT)[address] [place] [address] Lymphocytes/100 WBC (Bld) 6 % Low 14-48 [facility] Comment on above: Performed By: #### 1 3930172, 3649790561, 1053422 ####[facility] (DEFAULT)[address] [place] [address] [place] Abs# 0.7 x10 Normal 0.0-0.8 [facility] Comment on above: Performed By: #### 1 6591533, 1874364074, 6959964 ####[facility] (DEFAULT)[address] [place] [address] Neut Abs# 10.3 x10 High 1.5-9.2 [facility] Comment on above: Performed By: #### 1 6125326, 5337370895, 7147957 ####[facility] (DEFAULT)[address] [place] [address] 13214 Neutrophils/100 WBC (Bld) 88 % Normal 44-88 [facility] Comment on above: Performed By: #### 1 5138607, 5176162373, 7508778 ####[facility] (DEFAULT)[address] [place] [address] CBC w/ Auto Diffon 3 Erythrocyte distribution width (RBC) [Ratio] 15.5 % High 11.5-15.0 [facility] Comment on above: Performed By: #### 1 0294623, 2143611322, 9712467 ####[facility] (DEFAULT)[address] [place] [address] Hematocrit (Bld) [Volume fraction] 29.6 % Low 33.7-40.4 [facility] Comment on above: Performed By: #### 1 4364694, 9197068569, 5638287 ####[facility] (DEFAULT)[address] [place] [address] Hemoglobin (Bld) [Mass/Vol] 10.1 g/dL Low 11.3-15.9 [facility] Comment on above: Performed By: #### 1 4678948, 4015578957, 3043478 ####[facility] (DEFAULT)[address] [place] [address] Man Diff? Auto Invalid Interpretation Code [facility] Comment on above: Performed By: #### 1 0363247, 9906628039, 5705674 ####[facility] (DEFAULT)[address] [place] [address] 05695 MCH (RBC) [Entitic mass] 30 pg Normal 24-34 [facility] Comment on above: Performed By: #### 1 7043010, 5118293410, 7856760 ####[facility] (DEFAULT)[address] [place] [address] 70962 MCHC (RBC) [Mass/Vol] 34 g/dL Normal 26-37 [facility] Comment on above: Performed By: #### 1 3596647, 3372796431, 1112475 ####[facility] (DEFAULT)[address] [place] [address] 95726 MCV (RBC) [Entitic vol] 88 fL Normal 81-100 [facility] Comment on above: Performed By: #### 1 8342688, 3203163901, 1096026 ####[facility] (DEFAULT)[address] [place] [address] 00014 Platelet 434 x10 High 138-427 [facility] Comment on above: Performed By: #### 1 8468519, 5510536370, 1980694 ####[facility] (DEFAULT)[address] [place] [address] Platelet mean volume (Bld) [Entitic vol] 6.2 fL Low 6.3-10.2 [facility] Comment on above: Performed By: #### 1 4891067, 0376440182, 1511856 ####[facility] (DEFAULT)[address] [place] [address] RBC 3.38 x10 Low 3.70-5.30 [facility] Comment on above: Performed By: #### 1 8882224, 8690098683, 3327592 ####[facility] (DEFAULT)[address] [place] [address] WBC 11.7 x10 High 3.5-10.5 [facility] Comment on above: Performed By: #### 1 2116790, 7268631395, 9360385 ####[facility] (DEFAULT)[address] [place] [address] CMP Standardon 10-12-2023 eGFR Non AA 57 mL/min/1.73m2 Invalid Interpretation Code [facility] Comment on above: Performed By: #### 1 2092852, 0376818164, 7283204 ####[facility] (DEFAULT)[address] [place] [address] eGFR AA >60 Invalid Interpretation Code [facility] Comment on above: Performed By: #### 1 3315614, 5448157934, 6417038 ####[facility] (DEFAULT)[address] [place] [address] 07026 Albumin [Mass/Vol] 2.4 g/dL Low 3.5-5.0 [facility] Comment on above: Performed By: #### 1 6627075, 3016950581, 3228634 ####[facility] (DEFAULT)[address] [place] [address] Albumin/Globulin [Mass ratio] 0.6 {ratio} Low 1.4-2.6 [facility] Comment on above: Performed By: #### 1 4131254, 6897069472, 9114748 ####[facility] (DEFAULT)[address] [place] [address] 54496 Alk Phos 105 IU/L High 32-91 [facility] Comment on above: Performed By: #### 1 6484947, 4794919099, 0295141 ####[facility] (DEFAULT)[address] [place] [address] 92782 ALT [Catalytic activity/Vol] 19.0 U/L Normal 14.0-54.0 [facility] Comment on above: Performed By: #### 1 1257236, 8088076554, 9927417 ####[facility] (DEFAULT)[address] [place] [address] 83303 Anion gap [Moles/Vol] 14.7 mmol/L Normal 5.0-19.0 [facility] Comment on above: Performed By: #### 1 2788896, 6986507977, 0336398 ####[facility] (DEFAULT)[address] [place] [address] 90016 AST [Catalytic activity/Vol] 17 U/L Normal 15-41 [facility] Comment on above: Performed By: #### 1 1222851, 3812897283, 9800700 ####[facility] (DEFAULT)[address] [place] [address] Bili Total 0.6 mg/dL Normal 0.3-1.2 [facility] Comment on above: Performed By: #### 1 2451871, 6458959922, 9917570 ####[facility] (DEFAULT)[address] [place] [address] 42253 Calcium [Mass/Vol] 8.8 mg/dL Low 8.9-10.3 [facility] Comment on above: Performed By: #### 1 3842908, 5514442806, 1999601 ####[facility] (DEFAULT)[address] [place] [address] 76678 Chloride [Moles/Vol] 103 mmol/L Normal 101-111 [facility] Comment on above: Performed By: #### 1 4733957, 1646768179, 0816578 ####[facility] (DEFAULT)[address] [place] [address] 31471 CO2 [Moles/Vol] 25 mmol/L Normal 21-32 [facility] Comment on above: Performed By: #### 1 5357432, 6524648702, 9366387 ####[facility] (DEFAULT)[address] [place] [address] 13116 Creatinine [Mass/Vol] 0.94 mg/dL Normal 0.60-1.30 [facility] Comment on above: Performed By: #### 1 4261399, 3234397802, 7917681 ####[facility] (DEFAULT)[address] [place] [address] 35072 Globulin (S) [Mass/Vol] 3.5 g/dL Normal 1.5-4.3 [facility] Comment on above: Performed By: #### 1 0546229, 2981372371, 2363337 ####[facility] (DEFAULT)[address] [place] [address] 45152 Glucose [Mass/Vol] 161.0 mg/dL High 74.0-118.0 [facility] Comment on above: Performed By: #### 1 3284538, 9318240430, 6192568 ####[facility] (DEFAULT)[address] [place] [address] 86893 Osmolality 286 mOsm/L Invalid Interpretation Code [facility] Comment on above: Performed By: #### 1 4932650, 0208130799, 3468503 ####[facility] (DEFAULT)[address] [place] [address] 86375 Potassium [Moles/Vol] 4.7 mmol/L Normal 3.6-5.1 [facility] Comment on above: Performed By: #### 1 3046098, 7626812784, 8461160 ####[facility] (DEFAULT)[address] [place] [address] 84116 Protein [Mass/Vol] 5.9 g/dL Low 6.5-8.1 [facility] Comment on above: Performed By: #### 1 4573787, 3405481907, 5525671 ####[facility] (DEFAULT)[address] [place] [address] 97084 Sodium [Moles/Vol] 138.0 mmol/L Normal 136.0-144.0 [facility] Comment on above: Performed By: #### 1 9181603, 5253281804, 3092948 ####[facility] (DEFAULT)[address] [place] [address] 28458 Urea nitrogen [Mass/Vol] 32 mg/dL High 8-26 [facility] Comment on above: Performed By: #### 1 6259956, 1675338490, 1944879 ####[facility] (DEFAULT)[address] [place] [address] 04202 Urea nitrogen/Creatinin e [Mass ratio] 34.0 mg/mg High 4.6-16.2 [facility] Comment on above: Performed By: #### 1 8678084, 5284482508, 9235496 ####[facility] (DEFAULT)[address] [place] [address] 82003 CRPon 10-12-2023 CRP 7.2 mg/dL High <=0.5 [facility] Comment on above: Performed By: #### 2 235528, 6382142 #### [facility] (DEFAULT) [address] [place] [address] 11288 Consent Formson 10-12-2023 Consent Forms [id number] Normal [facility] Nutrition Noteon 10-12-2023 Nutrition Note Pt admitted w/ Rt kn ee pain, recent washout. CT scan noting septic arthritis, IV atb initiated. Pt placed on a Regular diet, so far eating 100%. Admit wt 60.8kg no wt hx on file, denied any wt changes per manager baby assessment. No chewing/swallowing problems identified. Labs reviewed [...] extra protein at home. To follow. Normal [facility] Pharmacy Noteon 10-12-2023 Pharmacy Note This [...] on: 10/12/2023 10:24 EST] Andrés Grover Normal [facility] Procalcitoninon 10-12-2023 Procalcitonin 0.109 ng/mL Low 0.500-1.000 [facility] Comment on above: Performed By: #### 7 [id number] #### [facility] (DEFAULT) [address] [place] [address] 70650 Sed Rateon 10-12-2023 Sed Rate 74 mm/hr High 0-20 [facility] Comment on above: Performed By: #### 2 550669, 1187801 #### [facility] (DEFAULT) [address] [place] [address] 61067 US Echocardiogram Completeon 10-12-2023 US Echocardiogram Complete [...] Junction2.89 cm F: 2.3 - 2.9 LV Nrkx239.22 g LVOT Diameter 2.09 cm IVC1.25 (<= [...] Single Plane 4 CH 25.69 mLBiplane LA Quwuwe13.33 mL Single Plane 2 CH67.19 mLLA ESV Index29.65 mL/m2 Right Atrium Area Systole RA Systolic Area A4C9.10 cm2RA Systolic Vol A4C19.30 mL Aortic Valve AoV Peak Velocity1.30 m/sLVOT Peak Velocity1.04 m/s AO Mean Velocity0.86 m/sLVOT Mean Velocity0.61 m/s AO Peak PG6.80 mmHgLVOT Peak PG4.31 mmHg AO Mean PG3.48 mmHgLVOT Mean PG1.86 mmHg AO V2 VTI22.79 cmLVOT V1 VTI20.10 cm ESTUARDO (Vmax)2.73 wg2APLQ Area 3.43 cm2 ESTUARDO (VTI)3.03 cm2SV (LVOT) 68.96 mL Indexed ESTUARDO (VTI)1.85 cm2/m2AI Latimer 2.40 m/s2 AI CJT808.11 ms Mitral Valve MV Max Amqlviei021.09 m/sMV PHT58.48 ms MV E Max Velocity0.55 m/sMVA (PHT)3.76 cm2 MV A Max Velocity0.67 m/sMR UFK409.58 cm E/A Ratio0.8MR Peak Velocity5.74 m/s MV Decel. Syrn564.67 ms TDI Med e' Velocity5.08 cm/sMV E / Medial e' 10.72 Lat e' Velocity6.45 cm/sMV E / Lateral e' 8.45 TV S'16.13 cm/s Pulmonary Valve PV Peak Velocity0.78 m/sPV Peak PG2.43 mmHg ID End Diastolic Carlos.62.56 m/s PV Mean PG1.46 mmHg Tricuspid Valve TR Peak Velocity3.10 m/sRAP Estimate3.00 mmHg TR Peak PG38.55 xiMvTVXT08.55 mmHg Final Signed (Electronic Signature): Marquis Pulido MD 10/12/23 3:45 pm Technologist: ERA [facility] XR Chest 1 View Frontalon XR [...] 9:27 am Technologist: SANGEETA SIMPSON [facility] .Auto Diff 10-11-2023 Auto [place] % 7 % Normal 11-16 [facility] Comment on above: Performed By: #### 2 297030, [id number], 44161745, 0895581140, 4478112044, 5910115139, 4904466040, 6755957 ####[facility] (DEFAULT)[address] [place] [address] Baso Abs# 0.1 x10 Normal 0.0-0.2 [facility] Comment on above: Performed By: #### 2 732969, 7426006127, 37427271, 7406878778, 4526890217, 3534320802, 5122825965, 5176796 ####[facility] (DEFAULT)[address] [place] [address] 28941 Basophils/100 WBC (Bld) 0.4 % Normal 0.2-2.0 [facility] Comment on above: Performed By: #### 2 971723, 4556571065, 13850710, 8891646684, 1751417735, 0185396599, 9054591547, 8687189 ####[facility] (DEFAULT)[address] [place] [address] 49479 Eos Abs# 0.0 x10 Normal 0.0-0.4 [facility] Comment on above: Performed By: #### 2 768953, 5061730274, 94967511, 1025153982, 4411997658, 4888202914, 8383343456, 3016259 ####[facility] (DEFAULT)[address] [place] [address] 82638 Eosinophils/100 WBC (Bld) 0.2 % Low 0.9-4.0 [facility] Comment on above: Performed By: #### 2 597941, 5075403104, 08589626, 5967887954, 4982055884, 3386269019, 7196908765, 1075468 ####[facility] (DEFAULT)[address] [place] [address] 18657 Lymph Abs# 1.2 x10 Low 1.3-2.9 [facility] Comment on above: Performed By: #### 2 870137, 0960646221, 61641134, 5029245596, 4960148523, 5820474934, 2828376072, 6419303 ####[facility] (DEFAULT)[address] [place] [address] 77664 Lymphocytes/100 WBC (Bld) 8 % Low 14-48 [facility] Comment on above: Performed By: #### 2 677892, 8919485754, 57913756, 3144904464, 4699057633, 0972070365, 3093839588, 5622248 ####[facility] (DEFAULT)[address] [place] [address] [place] Abs# 1.1 x10 High 0.0-0.8 [facility] Comment on above: Performed By: #### 2 791695, 9217209831, 41837029, 1841817837, 6513849002, 0319549832, 0414139802, 7098024 ####[facility] (DEFAULT)[address] [place] [address] Neut Abs# 13.6 x10 High 1.5-9.2 [facility] Comment on above: Performed By: #### 2 839938, 6111346765, 02466744, 7022528777, 9127850435, 2308732239, 6003076826, 6532456 ####[facility] (DEFAULT)[address] [place] [address] Neutrophils/100 WBC (Bld) 85 % Normal 44-88 [facility] Comment on above: Performed By: #### 2 451332, 6028409805, 57303374, 3886321265, 8345074928, 5137611714, 1846861074, 8847683 ####[facility] (DEFAULT)[address] [place] [address] Anesthesia Noteon 10-11-2023 Anesthesia Note Patient: ALICIA [...] 13:00 EST] Sheryl Dennis DO [facility] Anesthesia Note Patient: ALICIA NGUYỄN Age: [...] All Problems HTN (hypertension) / SNOMED CT 9764711049 / Confirmed Hypothyroidism / SNOMED CT 94436631 / Confirmed Histories Family History: No family history items have been selected or recorded. Procedure history: Appendectomy (960357266). History of total hysterectomy (2286562270). Knee (050322922). Comments: 10/11/2023 7:23 Radha Siddiqui RN total left Plantar fasciitis (406109410). Comments: 10/11/2023 7:26 Radha Siddiqui RN left Cholecystectomy (92001285). Metatarsal (22577850). Comments: 10/11/2023 7:25 Radha Siddiqui RN right [...] Oriented. Review / Management Laboratory Results Plan [place] [employer]#(ASA) physical status classification: Class [...] 09:23 EST] Sheryl Dennis DO [facility] BF Cell Cnton 10-11-2023 Appear BF Cloudy [facility] Comment on above: Order Comment: right knee fluid Performed By: #### 6 530492 #### [facility] (DEFAULT) [address] [place] [address] 33113 Cell Cnt BF Type Synovial Fl Normal [facility] Comment on above: Order Comment: right knee fluid Performed By: #### 6 956283 #### [facility] (DEFAULT) [address] [place] [address] 15218 Color BF Red [facility] Comment on above: Order Comment: right knee fluid Performed By: #### 6 434654 #### [facility] (DEFAULT) [address] [place] [address] 08152 RBC BF [id number] Invalid Interpretation Code [facility] Comment on above: Order Comment: right knee fluid Performed By: #### 6 816509 #### [facility] (DEFAULT) [address] [place] [address] [place] [id number] Invalid Interpretation Code [facility] Comment on above: Order Comment: right knee fluid Performed By: #### 6 959381 #### [facility] (DEFAULT) [address] [place] [address] 98794 BMP Standardon 10-11-2023 Breakpoint Chem Normal [facility] Comment on above: Performed By: #### 2 997909, 2895577474, 97603128, 3898694703, 9298317112, 2464011705, 8355336508, 6665364 ####[facility] (DEFAULT)[address] [place] [address] 99769 eGFR Non AA 57 mL/min/1.73m2 Invalid Interpretation Code [facility] Comment on above: Performed By: #### 2 086084, 9624328757, 81529180, [id number], [id number], [id number], [id number], [id number] ####[facility] (DEFAULT)[address] [place] [address] eGFR AA >60 Invalid Interpretation Code [facility] Comment on above: Performed By: #### 2 [id number], [id number], [id number], [id number], [id number], [id number], [id number], [id number] ####[facility] (DEFAULT)[address] [place] [address]97 Anion gap [Moles/Vol] 13.6 mmol/L Normal 5.0-19.0 [facility] Comment on above: Performed By: #### 2 966310, [id number], [id number], [id number], [id number], [id number], [id number], [id number] ####[facility] (DEFAULT)[address] [place] [address] 26759 Calcium [Mass/Vol] 9.6 mg/dL Normal 8.9-10.3 [facility] Comment on above: Performed By: #### 2 558757, [id number], 30618059, 9988590376, 0743421331, 9564966084, 5463357720, 3056154 ####[facility] (DEFAULT)[address] [place] [address] 17476 Chloride [Moles/Vol] 102 mmol/L Normal 101-111 [facility] Comment on above: Performed By: #### 2 008425, [id number], 11481105, 0372105525, 2351482551, 1233645977, 3958059005, 2813325 ####[facility] (DEFAULT)[address] [place] [address] 47551 CO2 [Moles/Vol] 25 mmol/L Normal 21-32 [facility] Comment on above: Performed By: #### 2 826075, [id number], 39101906, 6894311427, 2141732651, 1638262059, 0354769354, 2623103 ####[facility] (DEFAULT)[address] [place] [address] 95365 Creatinine [Mass/Vol] 0.93 mg/dL Normal 0.60-1.30 [facility] Comment on above: Performed By: #### 2 568889, [id number], 61634403, 0039629163, 8974688741, 8210841953, 0592735038, 7958404 ####[facility] (DEFAULT)[address] [place] [address] 14332 Glucose [Mass/Vol] 114.0 mg/dL Normal 74.0-118.0 [facility] Comment on above: Performed By: #### 2 497876, 7740389390, 74497073, 0082421412, 0808752930, 5824324390, 7296904114, 4461106 ####[facility] (DEFAULT)[address] [place] [address] 57624 Osmolality 279 mOsm/L Invalid Interpretation Code [facility] Comment on above: Performed By: #### 2 263307, [id number], 89229412, 7488939512, 1960730298, 2217665619, 1684561704, 6263483 ####[facility] (DEFAULT)[address] [place] [address] 69222 Potassium [Moles/Vol] 4.6 mmol/L Normal 3.6-5.1 [facility] Comment on above: Performed By: #### 2 490548, 5884803758, 52362695, 5140390177, 5399982224, 3396756784, 4407023753, 7717633 ####[facility] (DEFAULT)[address] [place] [address] 19575 Sodium [Moles/Vol] 136.0 mmol/L Normal 136.0-144.0 [facility] Comment on above: Performed By: #### 2 910545, 1400989000, 51323660, 9755496064, 3602299646, 7665625269, 0773751552, 5515189 ####[facility] (DEFAULT)[address] [place] [address] 41920 Urea nitrogen [Mass/Vol] 30 mg/dL High 8-26 [facility] Comment on above: Performed By: #### 2 738590, [id number], 15913068, 7516447026, 6076536337, 8877621613, 0241419713, 7480347 ####[facility] (DEFAULT)[address] [place] [address] 44813 Urea nitrogen/Creatinin e [Mass ratio] 32.2 mg/mg High 4.6-16.2 [facility] Comment on above: Performed By: #### 2 296387, 8711267061, 91041702, 7889501413, 1343755860, 3903573454, 1129940386, 7488839 ####[facility] (DEFAULT)[address] [place] [address] 54825 Body Fluid Diffon 10-11-2023 BF Bands % 2 Invalid Interpretation Code [facility] Comment on above: Order Comment: Right knee fluidVerbal order per Kelly Long Performed By: #### 2 [id number] ####[facility] (DEFAULT)[address] [place] [address] 63121 BF Baso % 0 Invalid Interpretation Code [facility] Comment on above: Order Comment: Right knee fluidVerbal order per Kelly Long Performed By: #### 2 [id number] ####[facility] (DEFAULT)[address] [place] [address] 39623 BF Eos % 0 Invalid Interpretation Code [facility] Comment on above: Order Comment: Right knee fluidVerbal order per Kelly Long Performed By: #### 2 [id number] ####[facility] (DEFAULT)[address] [place] [address] 07165 BF Lymph % 5 Invalid Interpretation Code [facility] Comment on above: Order Comment: Right knee fluidVerbal order per Kelly Long Performed By: #### 2 [id number] ####[facility] (DEFAULT)[address] [place] [address] 54334 BF [place] % 0 Invalid Interpretation Code [facility] Comment on above: Order Comment: Right knee fluidVerbal order per Kelly Long Performed By: #### 2 [id number] ####[facility] (DEFAULT)[address] [place] [address] 06694 BF Segs % 93 Invalid Interpretation Code [facility] Comment on above: Order Comment: Right knee fluidVerbal order per Kelly Long Performed By: #### 2 [id number] ####[facility] (DEFAULT)[address] [place] [address] 54356 CBC w/ Auto Diffon 3 Erythrocyte distribution width (RBC) [Ratio] 15.3 % High 11.5-15.0 [facility] Comment on above: Performed By: #### 2 786086, 7803669313, 26872701, 0444495234, 9404335182, 5207579766, 9847892425, 4457681 ####[facility] (DEFAULT)[address] [place] [address] 76007 Hematocrit (Bld) [Volume fraction] 36.1 % Normal 33.7-40.4 [facility] Comment on above: Performed By: #### 2 260620, 5889747028, 38933513, 9790252955, 3059120367, 2673933742, 3790400206, 3279865 ####[facility] (DEFAULT)[address] [place] [address] 66624 Hemoglobin (Bld) [Mass/Vol] 11.8 g/dL Normal 11.3-15.9 [facility] Comment on above: Performed By: #### 2 940364, 4775436715, 67257748, 1761099856, 4939046591, 4971319708, 1627319519, 7873032 ####[facility] (DEFAULT)[address] [place] [address] Man Diff? Auto Invalid Interpretation Code [facility] Comment on above: Performed By: #### 2 630281, 3470356570, 29323581, 6382782508, 9777765578, 9048761312, 1836726024, 9258987 ####[facility] (DEFAULT)[address] [place] [address] 31784 MCH (RBC) [Entitic mass] 29 pg Normal 24-34 [facility] Comment on above: Performed By: #### 2 937909, 2050573582, 05269782, 0283081944, 5843758483, 2164791832, 3392644523, 9976310 ####[facility] (DEFAULT)[address] [place] [address] MCHC (RBC) [Mass/Vol] 33 g/dL Normal 26-37 [facility] Comment on above: Performed By: #### 2 571973, 5309836831, 88736822, 2577848717, 8952299951, 9077886387, 3641672313, 2031972 ####[facility] (DEFAULT)[address] [place] [address] 80872 MCV (RBC) [Entitic vol] 89 fL Normal 81-100 [facility] Comment on above: Performed By: #### 2 660001, 7398883349, 73240602, 1869488544, 6304460341, 3383892894, 1967477572, 2875258 ####[facility] (DEFAULT)[address] [place] [address] 37342 Platelet 492 x10 High 138-427 [facility] Comment on above: Performed By: #### 2 140130, 2737928777, 14196217, 1152361485, 7994542776, 4712936849, 6868716396, 6894959 ####[facility] (DEFAULT)[address] [place] [address] Platelet mean volume (Bld) [Entitic vol] 6.2 fL Low 6.3-10.2 [facility] Comment on above: Performed By: #### 2 596484, 1406672293, 47841734, 1149077525, 6184257523, 4162508100, 4222998020, 7514623 ####[facility] (DEFAULT)[address] [place] [address] 57234 RBC 4.05 x10 Normal 3.70-5.30 [facility] Comment on above: Performed By: #### 2 444757, 5172095988, 05394105, 4000560860, 0586650988, 0822108035, 3606205412, 5312302 ####[facility] (DEFAULT)[address] [place] [address] 56408 WBC 16.0 x10 High 3.5-10.5 [facility] Comment on above: Result Comment: Slid e Reviewed Performed By: #### 2 513769, 7459317252, 55549306, 2012226606, 5742313456, 8693117728, 5914457570, 2226138 ####[facility] (DEFAULT)[address] [place] [address] 50874 CRPon 10-11-2023 CRP 6.1 mg/dL High <=0.5 [facility] Comment on above: Performed By: #### 2 713243 ####[facility] (DEFAULT)[address] [place] [address] Lower Extremity w/ Contra st Righton [...] MD 10/11/23 4:31 pm Technologist: Jeanette LUKE [facility] Extra SSTon 10-11-2023 Tube Collected Yes Invalid Interpretation Code [facility] Comment on above: Performed By: #### 2 705732, [id number], 60868453, 2634263034, 5498725022, 3053389193, 4891114290, 0661112 ####[facility] (DEFAULT)[address] [place] [address] MAGR Intraoperative Recordon 10-11-2023 MAGR Intraoperative Record MAGR Intra-Op Record Summary Primary Physician: JOB AGUILAR DO Finalized Date/Time: 10/11/23 14:40:54 Pt. Name: GOPIALICIA/Sex: 1940 FEMALE Med Rec #: [id number] Physician: JOB AGUILAR DO Financial #: [id number] Pt. Type: I Room/Bed: [facility]/1 Admit/Disch: 10/11/23 06:57:39 - Institution: Case Times [...] Role Performed Surgeon - Primary Anesthesiologist of Credentialing Analyst Record Time In 10/11/23 11:40:00 10/11/23 11:40:00 10/11/23 11:40:00 Time Out 10/11/23 12:48:00 10/11/23 12:53:00 10/11/23 12:53:00 Procedure Arthroscopy Knee(Right) Arthroscopy Knee(Right) Arthroscopy Knee(Right) Last Modified By: Sandra Shepard RN, Barbara RN Long, Barbara RN 10/11/23 12:55:35 10/11/23 12:55:35 10/11/23 12:55:35 Entry 4 Entry 5 Case Attendee Piotr ORDER BOOKER, Rina Metcalf CST CSFA CSFA Role Performed Scrub Personnel Key Punch Teacher Time In 10/11/23 11:40:00 10/11/23 11:40:00 Time [...] Sheryl Dennis DO, Long, Barbara RN, Piotr ORDER BOOKER, Gloria ORDER BOOKER CSFA, Rina Muñoz CSFA Last Modified By: [...] MAGR PACU Record MAGR PACU Record [facility] Primary Physician: JOB AGUILAR DO Finalized Date/Time: 10/11/23 13:56:49 Pt. Name: ALICIA NGUYỄN /Sex: 1940 FEMALE Med Rec #: [id number] Physician: JOB AGUILAR DO Financial #: [id number] Pt. Type: D Room/Bed: 224/1 Admit/Disch: 10/11/23 06:57:39 - Institution: PACU Case Times MAGR Entry 1 In PACU I 10/11/23 12:55:00 Discharge from PACU 10/11/23 13:40:00 I Last Modified By: Radha Seo RN 10/11/23 13:56:45 Finalized By: Radha Seo RN Document Signatures Signed By: Radha Seo RN 10/11/23 13:56 [facility] 12-12-2022 MAGR Preoperative Record MAGR Pre-Op Record [facility] Primary Physician: JOB AGUILAR DO Finalized Date/Time: 10/11/23 12:17:03 Pt. Name: ALICIA NGUYỄN Loida/Sex: 1940 FEMALE Med Rec #: [id number] Physician: JOB AGUILAR DO Financial #: [id number] Pt. Type: D Room/Bed: / Admit/Disch: 10/11/23 [...] Sandra Shepard RN 10/11/23 12:17 [facility] Pharmacy Noteon 10-11-2023 Pharmacy Note The [...] Signed on: 10/13/2023 09:39 EST] Jamal Butler [facility] Sed Rateon 10-11-2023 Sed Rate 80 mm/hr High 0-20 [facility] Comment on above: Performed By: #### 2 762661, [id number], 04853360, 1939595912, 0289669624, 6054669041, 9432025291, 7991932 ####[facility] (DEFAULT)[address] [place] [address] CREATININEon 04-04-2023 Creatinine [Mass/Vol] 1.25 mg/dL Critically high 0.55-1.02 [facility] Comment on above: Performed By: #### C HEIDI #### [facility] [address] [place] [address] [address] Lolita Alvarado EGFR-AF FILIPINO 49 mL/min/1.73m2 Critically low >=60 [facility] Comment on above: Performed By: #### C HEIDI #### [facility] [address] [place] [address] Dr. Lolita Alvarado EGFR-NON AF FILIPINO 41 mL/min/1.73m2 Critically low >=60 [facility] Comment on above: Performed By: #### C HEIDI #### [facility] [address] [place] [address] CHEST W CONon [...] by: RIGO WHITTAKER Date: 2023-04-04 16:[address] [facility] [address] CHEST W CONon 12-26-2022 CT [...] by: RIGO WHITTAKER Date: 2022-12-26 09:16 Normal [facility] CREATININEon 12-23-2022 Creatinine [Mass/Vol] 0.85 mg/dL Normal 0.55-1.02 [facility] Comment on above: Performed By: #### C HEIDI #### [facility] [address] [address] [address] Lolita Alvarado EGFR-AF FILIPINO >60 Normal >=60 [facility] Comment on above: Performed By: #### C HEIDI #### [facility] [address] [address] [address] Lolita Alvarado EGFR-NON AF FILIPINO >60 Normal >=[address] [facility] Comment on above: Performed By: #### C HEIDI #### [facility] [address] [address] [address] Lolita Alvarado Glucose Glucometer (BldC) [M ass/Vol]Ordered By: Santiago Otto on 11-01-2022 Glucose [Mass/Vol] 97 mg/dL [facility] Comment on above: Random Glucose Refer ence Range is dependent on time and content of last meal. Glucose of more than 200 mg/dL in a nonstressed, ambulatory subject supports the diagnosis of Diabetes Mellitus. Glucose Poct Glucometerson 1 01-02-2022 Glucose [Mass/Vol] 97 mg/dL Normal [facility] Comment on above: Result Comment: [place] om Glucose Reference Range is dependent on time and content of last meal. Glucose of more than 200 mg/dL in a nonstressed, ambulatory subject supports the diagnosis of Diabetes Mellitus. PERFORMED BY: [place] [address] PATHOLOGIST JOINT MACHINE OPERATOR NEW MEDEIROS M.D. Performed By: #### G LULS #### Point of Care testing , PET tumor init tx strat sb-m ton 11-01-2022 PET tumor init tx strat sb-mt [facility] Main [place] [address] [place] [address] Nuclear Medicine Report Signed Patient: Alicia Nguyễn MR#: [id number] : 1940 Acct:[id number] Age/Sex: 82 / F ADM Date: 11/01/22 Loc: Room: Type: [facility] Attending Dr: Santiago Otto MD Copies to: [...] Candi Leigh M.D.11/01/2022 1:32 PM Dictation Location: [place] [address] Transcribed By: [facility] 11/01/22 1332 Dictated By: Candi Leigh MD 11/01/22 1300 Signed By: 11/01/22 133 [facility] CT CHEST W CONon 10-24-2022 CT [...] RIGO WHITTAKER Date: 2022-10-23 22:21 Normal [facility] CREATININEon 10-23-2022 Creatinine [Mass/Vol] 1.08 mg/dL Critically high 0.55-1.02 [facility] Comment on above: Performed By: #### C HEIDI #### [facility] [address] [address] [address] Lolita Alvarado EGFR-AF FILIPINO 59 mL/min/1.73m2 Critically low >=[address] [facility] Comment on above: Performed By: #### C HEIDI #### [facility] [address] [address] [address] Lolita Alvarado EGFR-NON AF FILIPINO 48 mL/min/1.73m2 Critically low >=[address] [facility] Comment on above: Performed By: #### C HEIDI #### [facility] [address] [address] TSPINE WO CONon [...] spine. 3. No acute abnormality. Normal [facility] General Surgery Office/Clini c Noteon 09-18-2022 [...] of liver: Father. Heart disease: Mother. Normal [facility] Comment on above: Result Comment: Elec tronically [...] by: SHERYL SRINIVASAN Date: 2022-09-13 08:21 Normal [facility] Ambulatory Visit Summaryon 1 Ambulatory Visit [...] Varicose veins of legs Venous insufficiency Normal [facility] Pathology Noteon 08-18-2022 Pathology Note [id number]:127 Normal [facility] Outside Colonoscopyon 2021 Outside Colonoscopy [id number]:127 Normal [facility] US NOLBERTO DOP LEG RTon 08-10-20 US [...] BRAD GONZALEZ Date: 2022-08-10 15:05 [address] [facility] Lab Reportson 08-03-2022 Lab Reports [id number]:127 Normal [facility] CBC AUTO DIFFon 08-02-2022 BASO # 0.0 103/ul Normal 0.0-0.1 [facility] Comment on above: Performed By: #### C BC #### [facility] [address] [place] [address] Dr. Lolita Alvarado Basophils/100 WBC (Bld) 0.3 % Normal 0.2-2.0 [facility] Comment on above: Performed By: #### C BC #### [facility] [address] [place] [address] Dr. Lolita Alvarado EO # 0.0 103/ul Normal 0.0-0.7 [facility] Comment on above: Performed By: #### C BC #### [facility] [address] [place] [address] Dr. Lolita Alvarado Eosinophils/100 WBC (Bld) 0.3 % Critically low 0.9-7.0 [facility] Comment on above: Performed By: #### C BC #### [facility] [address] [place] [address] Dr. Lolita Alvarado Erythrocyte distribution width (RBC) [Ratio] 13.3 % Normal 11.0-15.0 [facility] Comment on above: Performed By: #### C BC #### [facility] [address] [place] [address] Dr. Lolita Alvarado Hematocrit (Bld) [Volume fraction] 34.6 % Critically low 36.0-48.0 [facility] Comment on above: Performed By: #### C BC #### [facility] [address] [place] [address] Dr. Lolita Alvarado Hemoglobin (Bld) [Mass/Vol] 11.4 g/dL Critically low 12.0-16.0 [facility] Comment on above: Performed By: #### C BC #### [facility] [address] [place] [address] Dr. Lolita Alvarado IG # 0.04 10e3/ul Critically high 0.00-0.03 [facility] Comment on above: Performed By: #### C BC #### [facility] [address] [place] [address] Dr. Lolita Alvarado IG % 1.0 % Critically high 0.0-0.5 [facility] Comment on above: Performed By: #### C BC #### [facility] [address] [place] [address] Dr. Lolita Alvarado LYMPH # 1.2 103/ul Normal 1.2-3.8 [facility] Comment on above: Performed By: #### C BC #### [facility] [address] [place] [address] Dr. Lolita Alvarado Lymphocytes/100 WBC (Bld) 30.9 % Normal 20.5-60.0 [facility] Comment on above: Performed By: #### C BC #### [facility] [address] [place] [address] Dr. Lolita Alvarado MANUAL DIFF REQ NO Normal [facility] Comment on above: Performed By: #### C BC #### [facility] [address] [place] [address] Dr. Lolita Alvarado MCH (RBC) [Entitic mass] 31.0 pg Normal 26.7-34.0 [facility] Comment on above: Performed By: #### C BC #### [facility] [address] [place] [address] Dr. Lolita Alvarado MCHC (RBC) [Mass/Vol] 32.9 g/dL Normal 29.9-35.2 [facility] Comment on above: Performed By: #### C BC #### [facility] [address] [place] [address] Dr. Lolita Alvarado MCV (RBC) [Entitic vol] 94.0 fL Normal 81.0-99.0 [facility] Comment on above: Performed By: #### C BC #### [facility] [address] [place] [address] Dr. Lolita Alvarado MONO # 0.4 103/ul Normal 0.3-0.[address] [facility] Comment on above: Performed By: #### C BC #### [facility] [address] [place] [address] Dr. Lolita Alvarado Monocytes/100 WBC (Bld) 10.6 % Normal 1.7-12.[address] [facility] Comment on above: Performed By: #### C BC #### [facility] [address] [place] [address] Dr. Lolita Alvarado NEUT # 2.2 103/ul Normal 1.4-6.[address] [facility] Comment on above: Performed By: #### C BC #### [facility] [address] [place] [address] Dr. Lolita Alvarado Neutrophils/100 WBC (Bld) 56.9 % Normal 43.0-75.[address] [facility] Comment on above: Performed By: #### C BC #### [facility] [address] [place] [address] Dr. Lolita Alvarado Platelet mean volume (Bld) [Entitic vol] 8.1 fL Critically low 9.5-13.[address] [facility] Comment on above: Performed By: #### C BC #### [facility] [address] [place] [address] Dr. Lolita Alvarado PLT 226 103/ul Normal 150-[address] [facility] Comment on above: Performed By: #### C BC #### [facility] [address] [place] [address] Dr. Lolita Alvarado RBC 3.68 106/ul Critically low 4.20-5.[address] [facility] Comment on above: Performed By: #### C BC #### [facility] [address] [place] [address] Dr. Lolita Alvarado WBC 3.9 103/ul Critically low 4.0-11.[address] [facility] Comment on above: Performed By: #### C BC #### [facility] [address] [place] [address] Dr. Lolita Alvarado Covid-19 PCR (CVDTB)on 06-07 SARS-CoV-2 (COVID-19) RNA EDWIN+probe Ql (Unsp spec) Detected Critically abnormal NOT DETECTED [facility] Comment on above: Result Comment: This test is not yet approved or cleared by the [place] FDA. When there are no FDA-approved or cleared tests available, and other criteria are met, FDA can make tests available under an emergency access mechanism called an Emergency Use Authorization (EUA). The EUA for this test is supported by the [place] of Health and Human Service's (HHS's) declaration [...] be used). Performed By: #### C #### [facility] [address] [place] [address] Dr. Lolita Alvarado Consent for Procedure/Surger yon 06-15-2022 Consent for Procedure/Surgery [id number]:127 Normal [facility] Ambulatory Visit Summaryon 0 06-13-2022 Ambulatory Visit [...] Varicose veins of legs Venous insufficiency Normal [facility] CBC AUTO DIFFon 06-02-2022 BASO # 0.0 103/ul Normal 0.0-0.1 [facility] Comment on above: Performed By: #### C BC #### [facility] [address] [address] [address] Lolita Alvarado Basophils/100 WBC (Bld) 0.4 % Normal 0.2-2.0 [facility] Comment on above: Performed By: #### C BC #### [facility] [address] [address] [address] Lolita Alvarado EO # 0.0 103/ul Normal 0.0-0.7 [facility] Comment on above: Performed By: #### C BC #### [facility] [address] [address] [address] Lolita Alvarado Eosinophils/100 WBC (Bld) 0.2 % Critically low 0.9-7.0 [facility] Comment on above: Performed By: #### C BC #### [facility] [address] [address] [address] Lolita Alvarado Erythrocyte distribution width (RBC) [Ratio] 12.8 % Normal 11.0-15.0 [facility] Comment on above: Performed By: #### C BC #### [facility] [address] [address] [address] Lolita Alvarado Hematocrit (Bld) [Volume fraction] 30.1 % Critically low 36.0-48.0 [facility] Comment on above: Performed By: #### C BC #### [facility] [address] [address] [address] Lolita Alvarado Hemoglobin (Bld) [Mass/Vol] 10.3 g/dL Critically low 12.0-16.0 [facility] Comment on above: Performed By: #### C BC #### [facility] [address] [place] [address] Dr. Lolita Alvarado IG # 0.02 10e3/ul Normal 0.00-0.03 [facility] Comment on above: Performed By: #### C BC #### [facility] [facility] [address] [place] [address] Dr. Lolita Alvarado IG % 0.4 % Normal 0.0-0.5 [facility] Comment on above: Performed By: #### C BC #### [facility] [address] [place] [address] Dr. Lolita Alvarado LYMPH # 0.7 103/ul Critically low 1.2-3.8 [facility] Comment on above: Performed By: #### C BC #### [facility] [address] [place] [address] Dr. Lolita Alvarado Lymphocytes/100 WBC (Bld) 14.9 % Critically low 20.5-60.0 [facility] Comment on above: Performed By: #### C BC #### [facility] [address] [place] [address] Dr. Lolita Alvarado MANUAL DIFF REQ NO Normal [facility] Comment on above: Performed By: #### C BC #### [facility] [address] [place] [address] Dr. Lolita Alvarado MCH (RBC) [Entitic mass] 33.6 pg Normal 26.7-34.0 [facility] Comment on above: Performed By: #### C BC #### [facility] [address] [place] [address] Dr. Lolita Alvarado MCHC (RBC) [Mass/Vol] 34.2 g/dL Normal 29.9-35.[address] [facility] Comment on above: Performed By: #### C BC #### [facility] [address] [place] [address] Dr. Lolita Alvarado MCV (RBC) [Entitic vol] 98.0 fL Normal 81.0-99.0 [facility] Comment on above: Performed By: #### C BC #### [facility] [address] [place] [address] Dr. Lolita Alvarado MONO # 0.4 103/ul Normal 0.3-0.[address] [facility] Comment on above: Performed By: #### C BC #### [facility] [address] [place] [address] Dr. Lolita Alvarado Monocytes/100 WBC (Bld) 9.0 % Normal 1.7-12.[address] [facility] Comment on above: Performed By: #### C BC #### [facility] [address] [place] [address] Dr. Lolita Alvarado NEUT # 3.4 103/ul Normal 1.4-6.[address] [facility] Comment on above: Performed By: #### C BC #### [facility] [address] [place] [address] Dr. Lolita Alvarado Neutrophils/100 WBC (Bld) 75.1 % Critically high 43.0-75.[address] [facility] Comment on above: Performed By: #### C BC #### [facility] [address] [place] [address] Dr. Lolita Alvarado Platelet mean volume (Bld) [Entitic vol] 8.5 fL Critically low 9.5-13.[address] [facility] Comment on above: Performed By: #### C BC #### [facility] [address] [place] [address] Dr. Lolita Alvarado PLT 229 103/ul Normal 150-[address] [facility] Comment on above: Performed By: #### C BC #### [facility] [address] [place] [address] Dr. Lolita Alvarado RBC 3.07 106/ul Critically low 4.20-5.[address] [facility] Comment on above: Performed By: #### C BC #### [facility] [address] [place] [address] Dr. Lolita Alvarado WBC 4.6 103/ul Normal 4.0-11.[address] [facility] Comment on above: Performed By: #### C BC #### [facility] [address] [place] [address] Dr. Lolita Alvarado Physician Referralon 022 Physician Referral [id number] Normal [facility] CBC AUTO DIFFon 06-01-2022 BASO # 0.0 103/ul Normal 0.0-0.1 [facility] Comment on above: Performed By: #### C BC #### [facility] [address] [place] [address] Dr. Lolita Alvarado Basophils/100 WBC (Bld) 0.7 % Normal 0.2-2.0 [facility] Comment on above: Performed By: #### C BC #### [facility] [address] [place] [address] Dr. Lolita Alvarado EO # 0.2 103/ul Normal 0.0-0.7 [facility] Comment on above: Performed By: #### C BC #### [facility] [address] [place] [address] Dr. Lolita Alvarado Eosinophils/100 WBC (Bld) 3.7 % Normal 0.9-7.0 [facility] Comment on above: Performed By: #### C BC #### [facility] [address] [place] [address] Dr. Lolita Alvarado Erythrocyte distribution width (RBC) [Ratio] 13.0 % Normal 11.0-15.0 [facility] Comment on above: Performed By: #### C BC #### [facility] [address] [place] [address] Dr. Lolita Alvarado Hematocrit (Bld) [Volume fraction] 32.2 % Critically low 36.0-48.0 [facility] Comment on above: Performed By: #### C BC #### [facility] [address] [place] [address] Dr. Lolita Alvarado Hemoglobin (Bld) [Mass/Vol] 10.6 g/dL Critically low 12.0-16.0 [facility] Comment on above: Performed By: #### C BC #### [facility] [address] [place] [address] Dr. Lolita Alvarado IG # 0.02 10e3/ul Normal 0.00-0.03 [facility] Comment on above: Performed By: #### C BC #### [facility] [address] [place] [address] Dr. Lolita Alvarado IG % 0.5 % Normal 0.0-0.5 [facility] Comment on above: Performed By: #### C BC #### [facility] [address] [place] [address] Dr. Lolita Alvarado LYMPH # 1.4 103/ul Normal 1.2-3.8 [facility] Comment on above: Performed By: #### C BC #### [facility] [address] [place] [address] Dr. Lolita Alvarado Lymphocytes/100 WBC (Bld) 32.4 % Normal 20.5-60.0 [facility] Comment on above: Performed By: #### C BC #### [facility] [address] [place] [address] Dr. Lolita Alvarado MANUAL DIFF REQ NO Normal [facility] Comment on above: Performed By: #### C BC #### [facility] [address] [place] [address] Dr. Lolita Alvarado MCH (RBC) [Entitic mass] 32.1 pg Normal 26.7-34.0 [facility] Comment on above: Performed By: #### C BC #### [facility] [address] [place] [address] Dr. Lolita Alvarado MCHC (RBC) [Mass/Vol] 32.9 g/dL Normal 29.9-35.2 [facility] Comment on above: Performed By: #### C BC #### [facility] [address] [place] [address] Dr. Lolita Alvarado MCV (RBC) [Entitic vol] 97.6 fL Normal 81.0-99.0 [facility] Comment on above: Performed By: #### C BC #### [facility] [address] [place] [address] Dr. Lolita Alvarado MONO # 0.6 103/ul Normal 0.3-0.8 [facility] Comment on above: Performed By: #### C BC #### [facility] [address] [address] [address] Lolita Alvarado Monocytes/100 WBC (Bld) 14.0 % Critically high 1.7-12.0 [facility] Comment on above: Performed By: #### C BC #### [facility] [address] [address] [address] Lolita Alvarado NEUT # 2.1 103/ul Normal 1.4-6.[address] [facility] Comment on above: Performed By: #### C BC #### [facility] [address] [place] [address] Dr. Lolita Alvarado Neutrophils/100 WBC (Bld) 48.7 % Normal 43.0-75.0 [facility] Comment on above: Performed By: #### C BC #### [facility] [address] [place] [address] Dr. Lolita Alvarado Platelet mean volume (Bld) [Entitic vol] 8.2 fL Critically low 9.5-13.5 [facility] Comment on above: Performed By: #### C BC #### [facility] [address] [place] [address] Dr. Lolita Alvarado PLT 216 103/ul Normal 150-[address] [facility] Comment on above: Performed By: #### C BC #### [facility] [address] [place] [address] Dr. Lolita Alvarado RBC 3.30 106/ul Critically low 4.20-5.[address] [facility] Comment on above: Performed By: #### C BC #### [facility] [address] [place] [address] Dr. Lolita Alvarado WBC 4.3 103/ul Normal 4.0-11.[address] [facility] Comment on above: Performed By: #### C BC #### [facility] [address] [place] [address] Dr. Lolita Alvarado OCC BLD IMMUNOASSAYon 2021 OCCULT BLOOD Positive Abnormal NEGATIVE [facility] Comment on above: Performed By: #### O ELADIO #### [facility] [address] [place] [address] Dr. Lolita Alvarado PROTIMEon 06-01-2022 INR Coag (PPP) [Relative time] 1.62 {INR} Normal [facility] Comment on above: Performed By: #### P T, PTT #### [facility] [address] [place] [address] Dr. Lolita Alvarado INR GUIDELINES SEE BELOW Normal [facility] Comment on above: Result Comment: TOSHA RED INR: 2.0 - 3.0 CONDITIONS NOT LISTED BELOW 2.5 - 3.5 FOR PROSTHETIC HEART VALVE REPLACEMENT 2.5 - 3.5 RECURRENT THROMBOSIS Performed By: #### P T, PTT #### [facility] [address] [place] [address] Dr. Lolita Alvarado PT Coag (PPP) [Time] 17.0 s Critically high 9.0-11.[address] [facility] Comment on above: Performed By: #### P T, PTT #### [facility] [address] [place] [address] Dr. Lolita Alvarado PTTon 06-01-2022 aPTT Coag (Bld) [Time] 40.2 s Critically high 22.3-36.[address] [facility] Comment on above: Performed By: #### P T, PTT #### [facility] [address] [place] [address] Dr. Lolita Alvarado Covid-19 PCR ([facility])on 05-06 SARS-CoV-2 (COVID-19) RNA EDWIN+probe Ql (Unsp spec) Not detected Normal NOT DETECTED [facility] Comment on above: Result Comment: This test is not yet approved or cleared by the [place] FDA. When there are no FDA-approved or cleared tests available, and other criteria are met, FDA can make tests available under an emergency access mechanism called an Emergency Use Authorization (EUA). The EUA for this test is supported by the [place] of Health and Human Service's (HHS's) declaration [...] consistent with SARS-CoV-2. Performed By: #### [facility] #### [facility] [address] [place] [address] Dr. Lolita Alvarado US NOLBERTO DOP LEG [...] SHERYL SRINIVASAN Date: 2022-05-25 16:09 Normal [address] [facility] US NOLBERTO DOP LEG LTon 04-28-20 [...] and mid calf. There may be a division chair extending to the region of the thrombosis. The remaining deep venous structures are patent. 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 This finding was placed in the stat call folder. 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 Electronically authenticated by: CHUCK TATUM Date: 2022-04-28 19:31 Normal [facility] POINT OF CARE GLUCOSEon 06- Glucose [Mass/Vol] 86 mg/dL Normal 74-106 [facility] Comment on above: Performed By: #### C BC #### [facility] [address] [address] [address] Lolita Alvarado Encounters Encounter Date Encounter Type Care Provider Facility Start: 12-14-2023 End: 12-14-2023 ambulatory JAMAL Reid ANAHI Not Available Start: 12-14-2023 End: 12-14-2023 Postop follow up visit related to original px Jamal Vizcarra PA Work Phone: [facility] Comment on above: S/P right knee arthr oscopy (Primary Dx) Start: 11-16-2023 End: 11-16-2023 ambulatory JAMAL VIZCARRA Not Available Start: 10-26-2023 End: 10-26-2023 ambulatory JAMAL VIZCARRA Not Available Start: 10-11-2023 End: 10-16-2023 Evaluation and management of inpatient Brando Garcia Facility:[facility] Start: 10-10-2023 End: 10-10-2023 ambulatory JOB [...] Start: 11-01-2022 End: 11-01-2022 ambulatory Santiago Otto Facility:[facility] Start: 11-01-2022 End: 11-01-2022 ambulatory MD Santiago Otto Work Phone: [facility] Work Phone: Start: 11-01-2022 End: 11-01-2022 Patient encounter procedure MD Santiago Otto Work Phone: [facility] Work Phone: Start: 10-23-2022 End: 10-24-[address] SANTIAGO OTTO . Facility:[facility] Start: 10-16-2022 End: 10-17-2022 ambulatory RACHANA KENT Facility:[facility] Start: 10-11-2022 End: 10-11-2022 ambulatory Rachana Kent Other [facility] Other Start: 10-11-2022 Telephone encounter Rachana Kent F [facility] Start: 09-12-2022 End: 09-13-[address] SANTIAGO OTTO . Facility: Start: 08-29-2022 End: 08-30-2022 ambulatory Arie BERGERON Facility:[facility] Start: 08-29-2022 End: 08-29-2022 Patient encounter procedure Arie BERGERON General Surgery [facility] Start: 08-22-2022 End: 08-23-2022 ambulatory BRAD CALDWELL Facility:[facility] Start: 08-16-2022 End: 08-17-2022 ambulatory Arie BERGERON Facility:CD:[id number] Start: 08-12-[address] ARIE BERGERON . Facil ity:[facility] Start: 08-10-2022 End: 08-11-[address] SANTIAGO OTTO . Facility:[facility] Start: 08-10-2022 Encounter for other preprocedural examination DR ARIE BERGERON . [facility] Start: 08-08-2022 End: 08-09-[address] [...] 06-13-2022 End: 06-14-2022 [facility]ulatory [facility] Start: 06-02-2022 ambulatory [facility]RAIN [facility] Start: 06-02-2022 End: 06-03-[address] [...] DERM [address] [place] [id number] Nathalie Horne MD [address] [place] [address] [facility] Start: 08-06-2024 End: 08-06-2024 Telemedicine consultation with patient 08/06/2024 9:30 AM EDT Telemedicine [facility] [address] [place] [address] Jr. Job Aguilar, [address] [facility] [address] [place] [address] [facility] Start: 07-06-2023 Influenza vaccination Influenza Vaccine (#1) [facility] Immunizations Immunization Date Immunization Notes [facility] Provider [facility] influenza virus vacc ine, unspecified formulation Jamal MARIE Work Phone: [facility] Payers Date Payer Category Payer Unknown AARP AARP [id number] 2022-Present [address] [place] [address] [id number] 2022 Unknown [id number] 2003 Medicare MEDICARE MEDICAR E PART B [id number] 2003-[place] [address] Medicare [id number] 1959 Medicare [id number] 1959 Self-pay 1959 Unknown [id number] 1938 Unknown [id number] 2.16.840.1.011549.3.579.2.727 1938 Unknown [id number] 2.16.840.1.892303.3.579.2.727 1938 Unknown [id number] 2.16.840.1.824231.3.579.2.727 1938 Unknown [id number] 2.16.840.1.677157.3.579.2.727 1938 Unknown [id number] 2.16.840.1.194317.3.579.2.593 1938 Unknown [id number] 2.16.840.1.323505.3.579.2.593 1938 Unknown [id number] 2.16.840.1.804200.3.579.2.593 1938 Unknown [id number] 2.16.840.1.318322.3.579.2.593 1938 Unknown [id number] 2.16.840.1.558234.3.579.2.593 1938 Unknown [id number] 2.16.840.1.707802.3.579.2.593 1938 Unknown [id number] 2.16.840.1.888014.3.579.2.593 1938 Unknown [id number] 2.16.840.1.256177.3.579.2.593 1938 Unknown [id number] 2.16.840.1.552546.3.579.2.593 1938 Unknown [id number] 2.16.840.1.801065.3.579.2.593 1938 Unknown [id number] 2.16.840.1.936619.3.579.2.593 1938 Unknown [id number] 2.16.840.1.878229.3.579.2.593 1938 Unknown [id number] 2.16.840.1.736382.3.579.2.593 1938 Unknown [id number] 2.16.840.1.271559.3.579.2.593 1938 Unknown [id number] 2.16.840.1.414681.3.579.2.593 1938 Unknown [id number] 2.16.840.1.775068.3.579.2.59 1938 Unknown [id number] 2.16.840.1.455425.3.579.2.593 1938 Unknown [id number] 2.16.840.1.958673.3.579.2.59 1938 Unknown [id number] 2.16.840.1.168870.3.579.2.593 1938 Unknown [id number] 2.16.840.1.517626.3.579.2.59 1938 Unknown [id number] 2.16.840.1.640737.3.579.2.593 1938 Unknown [id number] 2.16.840.1.223955.3.579.2.593 1938 Unknown [id number] 2.16.840.1.398173.3.579.2.593 1938 Unknown [id number] 2.16.840.1.508229.3.579.2.593 1938 Unknown [id number] 2.16.840.1.460997.3.579.2.593 1938 Unknown [id number] 2.16.840.1.811186.3.579.2.593 1938 Unknown [id number] 2.16.840.1.469876.3.579.2.593 1938 Unknown [id number] 2.16.840.1.611095.3.579.2.593 1938 Unknown [id number] 2.16.840.1.011925.3.579.2.718 1938 Unknown [id number] 2.16.840.1.266210.3.579.2.1259 1938 Unknown [id number] 2.16.840.1.209395.3.579.2.1259 1938 Unknown [id number] 2.16.840.1.989269.3.579.2.1259 1938 Unknown [id number] 2.16.840.1.582123.3.579.2.1259 1938 Unknown [id number] 2.16.840.1.906308.3.579.2.1259 1938 Unknown [id number] 2.16.840.1.207564.3.579.2.1259 Medicare Medicare Outpatient [id number] Unknown [id number] 2.16.840.1.968965.3.579.2.531 Social History Date Type Detail Facility Start: 06-13-2022 End: 10-05-2023 Tobacco smoking status Never smoked tobacco (finding) [facility] Tobacco smoking status Never Gener al [facility] Start: 11-16-2023 Sex Assigned At Female F [facility] Start: 1940 Sex Assigned At Female F [facility] Start: 10-05-2023 Tobacco use and exposure [...] her PCP for evaluation of diarrhea, taking zlzu-nmd-hqfgcuh medications. States she feels like they are [...] evaluation. FRANK Dangelo documented in this encounter [facility] 10-17-2023 Note [id number] E7#1.00[facility] 10-17-2023 Note [id number] D#1.00[facility] 10-17-2023 Note [id number] 0462#1.00[facility] 10-16-2023 Note Education Materials POST OPERATIVE [...] #8 follow up in office with physician medical staff assistant Joe Vizcarra as scheduled #9 [facility] will be contacting you within the next 24 hours to set up home therapy visits #11 You have been given a prescription for [place], norco is narcotic, narcotics are addictive. If you feel you have problems with addiction please feel free to contact Dr. Aguilar, your family physician, or proceed to the nearest hospital's emergency services department. [facility] 10-16-2023 Note [facility] Clinical Discharge Summary PERSON INFORMATION Name ALICIA NGUYỄN Age 83 Years 1940 Sex FEMALE Language [place] Citizen PCP SANTIAGO OTTO Marital Status Phone Med Service Med/Surg Acct# Arrival 10/11/2023 06:57:39 Visit Reason SURGERY - RIGHT KNEE SCOPE Acuity LOS 005 01:37 Address: [address] [place] [address] Comment: PROVIDER INFORMATION VITALS INFORMATION Vital Sign [...] range between ( 1.3 and 2.9 ) [place] Abs#: 0.8 x103/mcL -- Normal range between ( 0.0 and 0.8 ) Auto Baso %: 0.2 % -- Normal range between ( 0.2 and 2.0 ) Auto [place] %: 9 % -- Normal range between [...] ( 32 and (more content not included)... [facility] 10-17-2022 Note PROCEDURE: XR SCAPUL A RT COMPARISON: None. HISTORY: Disorder of bone FINDINGS: BONES:No acute fracture or dislocation. Subchondral cystic changes of the greater tuberosity and humeral neck SOFT TISSUES:Negative. No visible soft tissue swelling. EFFUSION:None visible. OTHER: Aortic atherosclerosis IMPRESSION: No acute abnormality Electronically authenticated by: SHERYL SRINIVASAN Date: 2022-10-17 07:20 [facility] 08-16-2022 Note OPERATIVE NOTE OPERATION DATE: [...] good condition. CC: Santiago Otto M.D. [facility] 07-27-2022 Note CONSULTATION PROCEDURE DATE: 07/27/2022 [...] be followed up in the office. [facility] 07-27-2022 Note CONSULTATION CONSULTATION DATE: 07/27/2022 [...] agrees with the plan of care. [facility] 06-13-2022 Note Chief Complaint consultation for [...] Cirrhosis of liver: Father. Heart disease: Mother. [facility] Comment on above: Result Comment: Elec tronically [...] Patient is in agreement to this. [facility] 06-01-2022 Note CONSULTATION PROCEDURE DATE: 06/01/2022 [...] and patient tolerated the procedure well. [facility] Evaluation + Plan note No data available for this section General [facility] [place] Evaluation note No Information [facility] Other Evaluation note No assessment information [facility] Work Phone: Evaluation note Diagnosis S/P right [...] knee replacement Hospitalization History see surgical hx [facility] Other Hospital Discharge instructions No data available for this section [facility] Progress note No data available for this section [facility] [place] Summary Purpose Family History No Family History [...] Santiago Otto MD Primary Care Provider Active 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 DATE CREATED AUTHOR AUTHOR'S ORGANIZ ATION 12/15/2023 [facility] Specialists EPIC REASON FOR VISIT [...] BE BASED ON THE PRIMARY CLINICAL RECORDS. [facility] [employer], [facility]. provides no warranty or guarantee of the accuracy or completeness of information in this document.
[2023-12-25 14:19] LABS: C. Difficile PCR NEGATIVE (NEGATIVE)
== END 2023-12-24 14:31 | disposition home or self-care (01) ==
LOC: LAB 14:30
PROVIDERS: PCP Family Medicine; Visit Provider Family Medicine
DX: R19.7 Diarrhea, unspecified (principal)
CPT/HCPCS: 87045; 87493

== ENCOUNTER 2024-02-27 08:41 | Outpatient (OUT) | payer MEDICARE, SELFPAY ==
--- NOTE | 2024-02-27 08:55 | P.CN_ITS ---
Consult Note: HPI Data of Consult Patient: known to practice within the last 3 years Requesting Physician: Ivanna Louise NP Primary Care Provider: Bakari Otto MD Consult Narrative Reason for consult: f/u Narrative: Alicia Bullock a pleasant 83 year old female presents for evaluation and management of chronic pain. Patient rating pain 0/10 since last appointment, has noticed very mild pain 1-2 since restarting duloxetine 30mg HS. She has not sparingly needed mobic and baclofen. cc:: CC: Ivanna Louise NP Review of Systems ROS Status of ROS 10 or more systems reviewed and unremark able except as noted in history and below PFSH PFSH Social History Smoking status: Never smoker Meds Home Medications and Allergies Home Medications ?Medication ?Instructions ?Recorded ?Confirmed ?Type alendronate 70 mg tablet (Fosamax) 70 mg PO QWEEK 06/14/23 06/14/23 History amlodipine 10 mg tablet 10 mg PO DAILY 06/14/23 06/14/23 History aspirin 81 mg capsule 81 mg PO DAILY 06/14/23 06/14/23 History baclofen 10 mg tablet 10 mg PO .QHS PRN muscle spasm 06/14/23 08/23/23 History calcium 167 mg-vitamin D3 1.67 cap PO .QD 06/14/23 History mcg-magnesium 83 mg capsule duloxetine 30 mg capsule,delayed 30 mg PO DAILY 06/14/23 06/14/23 History release (Cymbalta) glucosamine ER 500 mg-chondroitin 1 tab PO DAILY 06/14/23 06/14/23 History 200 mg tablet,extended release levothyroxine 50 mcg tablet 50 mcg PO DAILY 06/14/23 06/14/23 History (Euthyrox) lisinopril 20 mg tablet 20 mg PO DAILY 06/14/23 06/14/23 History metoprolol tartrate 50 mg tablet 50 mg PO DAILY 06/14/23 06/14/23 History (Lopressor) omeprazole 20 mg tablet,delayed 20 mg PO BID 06/14/23 06/14/23 History release tramadol 50 mg tablet 50 mg PO DAILY PRN pain 06/14/23 06/14/23 History meloxicam 15 mg tablet 15 mg PO PRN 10/19/23 History Allergies Allergy/AdvReac Type Severity Reaction Status Date / Time No Known Drug Allergies Allergy Verified 11/18/23 17:41 Exam Constitutional Documenting provider has reviewed patient's vital signs: yes Common normals: no apparent distress, oriented x3, healthy appearing, alert and well nourished General appearance: cooperative HENMT Common normals: normocephalic, hearing grossly normal bilaterally and moist oral mucous membranes Head and scalp: normocephalic Face and sinus: normal facial exam Mouth: oral and palatal mucosa normal Eye Common normals: PERRL Pupil: PERRL Neck & C-Spine Common normals: full ROM General: normal visual inspection Cervical spine: cervical ROM normal Chest Common normals: inspection of chest normal Respiratory Common normals: normal respiratory effort, no retractions and no use of accessory muscles Back & Pelvis Common normals: thoracic and lumbar spine normal to inspection Thoracic spine/upper back: ROM limited Lumbar spine/lower back: ROM limited, paraspinal muscle tenderness and straight leg raise negative bilaterally Pelvis: other (no pain over PSIS or tenderness to palpation) Extremity Common normals: normal to inspection and full ROM General: edema (non pitting BLE) Neuro Common normals: oriented x3, CN's II-XII intact bilaterally, moves all extremities, no focal motor deficits, no sensory deficits noted and deep tendon reflexes 2+ bilaterally Sensorium/orientation: alert Motor exam: strength 5/5 throughout and no movement abnormalities noted Psych Common normals: mental status grossly normal, thought process normal, cooperat dwayne, affect normal, speech normal and activity/motor behavior normal Appearance: grossly normal Speech: normal speech Thought process: normal thought process Thought content: normal thought content Results Additional Findings Additional findings: If on a controlled substance or opioids, I have checked an [place] report on this patient and there are no aberrancies noted in the prescribing history.??If on a controlled substance or opioid a drug screen was completed and reviewed within the last year, and if there has not been a drug screen completed we ordered one today to monitor higher risk, state monitored pain medication use. As part of providing excellent, safe, comprehensive care, the following was completed at our patient's visit: 1. A medication reconciliation and review to ensure accurate knowledge of current/active medications, including asking our patients to inform us about any [id number] medications or herbal remedies/nutritional supplements/alternative remedies. 2. A review to specifically ensure our patients have had annual screening for screening for depression, screening for tobacco use, and screening for unhealthy alcohol use. For concerning screenings had a discussion with the patient, provided patient education, and recommended follow-up with primary care provider when appropriate. If patient noted with a risk of falling, they received education on strength, gait, and balance training to prevent future risk of falling. Assessment and Plan Assessment and Plan (1) Lumbar spondylosis: (2) Osteoarthritis: (3) Muscle spasm: Plan continue duloxetine 30mg HS continue mobic and baclofen PRN f/u 6 months, sooner if needed
--- OUTSIDE RECORDS SUMMARY | 2024-02-27 09:00 | XMS_ITS | CCD ---
Author Organization [facility] Care Team Providers Care Environmental Monitoring Specialist Name Role Phone Santiago Otto Primary Care Physician Rachana Kent Unavailable MD Santiago Otto Primary Care Provider [phone] MD Santiago Otto Attending Provider Santiago Otto Attending Unavailable Santiago Otto Primary Care Unavailable Santiago Otto Admitting Unavailable LUIZAY ., DR HENDERSON Primary Care Unavailable HOY ., DR HENDERSON Attending Unavailable HOY ., DR HENDERSON Admitting Unavailable HOY ., DR HENDERSON Consulting Unavailable WEST, DR SHERYL Navarrete Consulting Unavailable ARROYO ., [...] DR HENDERSON Admitting Unavailable HOY ., DR HEDNERSON Attending Unavailable HOY ., DR HENDERSON Primary Care Unavailable WEST, DR SHERYL Navarrete Consulting Unavailable HOY ., DR HENDERSON Primary Care Unavailable HOY ., DR HENDERSON Attending Unavailable HOY ., DR HENDERSON Admitting Unavailable HOY ., DR HENDERSON Consulting Unavailable HALKER .HORTENCIA Admitting Unavailable HALKER .HORTENCIA Attending Unavailable HOY ., DR HENDERSON Primary Care Unavailable HALKER ., HORTENCIA Consulting Unavailable HALKER .HORTENCIA Attending Unavailable HOY ., DR HENDERSON Primary Care Unavailable HALKER .HORTENCIA Admitting Unavailable HOY ., DR HENDERSON Primary Care Unavailable FARIDA GRAHAM Attending Unavailable FARIDA GRAHAM Admitting Unavailable NILL ., DR SARGENT Admitting [...] Unavailable HOY ., DR HENDERSON Admalina Unavailable NEFCYBRAD Consulting Unavailable HOY ., DR [...] ZIEBER, DR RIGO Love Consulting Unavailable HIGHLANDER, BRAD Rice Admitting Unavailable HIGHLANDERBRAD Attending Unavailable HOY ., DR HENDERSON Primary Care Unavailable HIGHLANDERBRAD Consulting Unavailable HOY ., DR HENDERSON Consulting Unavailable HOY ., DR HENDERSON Primary Care Unavailable HOY ., DR HENDERSON Admalina Unavailable HOY ., DR HENDERSON Attending Unavailable ZIEBER, DR RIGO Love Consulting Unavailable BLADES, RACHANA Admitting Unavailable BLADES, RACHANA Attending Unavailable TRANSYLVANIA, DR SHERYL Navarrete Consulting Unavailable HOY ., DR HENDERSON Primary Care Unavailable ZIEBER, DR RIGO Love Consulting Unavailable BLADES, RACHANA Consulting Unavailable GARCIA ., DR VIANIA Ledezma Admitting Unavailable GARCIA ., DR IVANIA Ledezma Attending Unavailable GARCIA ., DR IVANIA Ledezma Consulting Unavailable HOY ., DR HENDERSON Primary Care Unavailable JOSE MANUELRAUL Darnell Consulting Unavailable GARCIA, DR PARISI Consulting Unavailable ARROYO ., STARR Consulting Unavailable GARCIA ., DR IVANIA Ledezma Admitting Unavailable GARCIA ., DR IVANIA Ledezma Attending Unavailable HOY ., DR HENDERSON Primary Care Unavailable NILL ., DR SARGENT Admitting Unavailable NILL ., DR SARGENT Attending Unavailable NILL ., DR SARGENT Consulting Unavailable HOY ., DR HENDERSON Primary Care Unavailable LEONARDO ANNE Unavailable JOSELIN ABREU Unavailable JEFFERSON BROWN Admitting Unavailable HOY ., [...] HENDERSON Primary Care Unavailable XAVIER ., MATTHEW BECEKR Attending Unavailable HOY ., DR HENDERSON Primary [...] SANTIAGO OTTO Primary Care Unavailable Sheryl Dennis Unavailable Santiago Otto MD Primary Care Provider [phone] Lynn Pastrana Attending Unavailable JAMAL VIZCARRA Attending Unavailable JAMAL VIZCARRA Attending Unavailable JAMAL VIZCARRA Attending Unavailable JAMAL VIZCARRA Referring Unavailable JAMAL VIZCARRA Attending Unavailable THOMAS CAREY Attending Unavailable JR. AGUILAR GEORGE C Attending Unavaila JAMAL Moreno Attending Unavailable Allergies Allergy Classification Reported Allergen(s) Allergy Type Date of Onset Reaction(s) Facility (1 source) No Known Medication Allergies; Translations: [No Known Medication Allergies] Propensity to adverse reactions (disorder) [facility] Repository Medications Current Medications Medication Drug Class(es) Dates Sig (Normalized) Sig (Original) 8 hr acetaminophen 650 mg extended release oral tablet (2 sources) acetaminophen (Tylenol 8 Hour Arthritis Pain) 650 MG ER tablet every 8 (eight) hours. 0 Active alendronic acid 70 mg oral tablet (5 sources) Bisphosphonate Start: 06-08-2022 alendronate (Fosamax) 70 MG tablet amLODIPine 5 mg oral tablet (5 sources) Dihydropyridine Calcium Channel Betsy Start: 06-16-2023 amLODIPine (Norvasc) 5 MG tablet Start: 06-08-2022 take 2 tablets by mo [facility] once daily amLODIPine 5 mg Tab 10 mg = 2 tab(s), Oral, Daily, Refills(s) 0 Start Date: 06/08/22 Status: Ordered amLODIPine Besyl ate 5 MG Oral for 90 Days Active aspirin 81 mg delayed release oral tablet (4 sources) Platelet Aggregation Inhibitor, Nonsteroidal Anti-inflammatory Drug Start: 06-08-2022 take 1 tablet by mouth once daily aspirin 81 mg Oral EC Tab 81 mg = 1 tab(s), Oral, Daily, Refills(s) 0 Start Date: 06/08/22 Status: Ordered aspirin 81 MG ch ewable tablet 1 (one) time each day at the same time. 0 Active calcium carbonate 1500 mg oral tablet (2 sources) Start: 06-08-2022 calcium (as carbonate) 600 mg [...] Orally Once a day Active Osteo Bi-Flex (2 sources) Start: 06-08-2022 take 1 tablet by mouth once daily Osteo Bi-Flex 1 tab(s), Oral, Daily, Refill(s) 0 Start Date: 06/08/22 Status: Ordered [facility] E Oil 45 MG/0.25ML oil (2 sources) Start: 10-09-2022 [facility] E Oil 45 MG/0.25ML oil USE 1 ML TOPICALLY ONCE DAILY FOR 30 DAYS 0 10/09/2022 Active cyclobenzaprine hydrochloride 10 mg oral tablet (2 sources) Muscle Relaxant Start: 06-08-2022 take 1 tablet [...] Refills(s) 0 Start Date: 06/08/22 Status: Ordered Diclofenac 75mg Tab-DR (1 source) Start: 06-08-2022 take 1 tablet [...] Active levothyroxine sodium 0.05 mg oral tablet (5 sources) l-Thyroxine Start: 06-16-2023 levothyroxine (Synthroid, Levoxyl) 50 MCG tablet Start: 06-08-2022 take 1 tablet by [facility] once daily levothyroxine 50 mcg (0.05 mg) Tab 50 mcg = 1 tab(s), Oral, Daily, Refills(s) 0 Start Date: 06/08/22 Status: Ordered liothyronine sodium 0.005 mg oral tablet (3 sources) l-Triiodothyronine Start: 06-08-2022 take 1 tablet [...] Active metoprolol tartrate 50 mg oral tablet (5 sources) beta-Adrenergic Betsy Start: 3 metoprolol tartrate (Lopressor) 50 MG tablet Start: 06-08-2022 Metoprolol tar trate 50 mg Tab as directed, Refills(s) 0 Start Date: 06/08/22 Status: Ordered Metoprolol Tartr ate 50 MG Oral for 90 Days Active nitroglycerin 0.4 mg sublingual tablet (2 sources) Nitrate Vasodilator Start: 06-08-2022 nitroglycerin 0.4 mg sublingual Tab 0.4 mg = 1 tab(s), SubLingual, q5min, PRN for chest pain, Refills(s) 0 Start Date: 06/08/22 Status: Ordered omeprazole 20 mg delayed release oral capsule (5 sources) Proton Pump Inhibitor Start: 06-08-2022 take [...] 20 MEQ Oral for 30 Days Active rifAXIMin 550 mg oral tablet (1 source) Rifamycin Antibacterial Start: 4 take 1 tablet by mouth three times daily rifaximin 550 mg oral tablet 550 mg = 1 tab(s), Oral, TID, # 42 tab(s), Refills(s) 0, Pharmacy: [facility]/pharmacy #[id number], 159, cm, 01/23/24 14:05:00 EDT, Height/Length Dosing, 55, kg, 01/23/24 14:05:00 EDT, Weight Dosing Start Date: 01/23/24 Status: Ordered temazepam 15 mg oral capsule (3 sources) Benzodiazepine Start: 2 take 1 capsule by mouth once daily at bedtime temazepam 15 mg Cap 15 mg = 1 cap(s), Oral, Once a day (at bedtime), Refills(s) 0 Start Date: 06/08/22 Status: Ordered Vitamin E 45 MG/0.25ML (1 source) Start: 2 take 1 mL by mouth once daily Vitamin E 45 MG/0.25ML 1 mL Orally Once a day for 30 day(s) Oct, Active Completed/Discontinued Medications Medication Drug Class(es) Dates Sig (Normalized) Sig (Original) Triamcinolone (4 sources) Corticosteroid Start: 06-08-2022 triamcinolone Top 0.1% Crm 1 dano, Topical, BID, Refill(s) 0 Start Date: 06/08/22 Status: Ordered Start: 06-08-2022 triamcinolone Top 0.1% Crm 1 dano, Topical, BID, Refill(s) 0 Start Date: 06/08/22 Status: Ordered triamcinolone (K enalog) 0.1 % cream Apply topically 2 (two) times a day 0 Active Problems Active Problems Problem Classification Problem Date Documented Da te Episodic/Chronic Cardiac dysrhythmias (2 sources) Premature atrial contraction 06-08-2022 Chronic Conduction disorders (2 sources) Ventricular bigeminy 06-08-2022 Chronic Deficiency and other anemia (2 sources) Iron deficiency anemia 06-13-2022 Episodic Diabetes mellitus [...] WITHOUT ESOPHAGITIS] Onset: 05-01-2022 Chronic Essential hypertension (3 sources) Hypertensive disorder; Translations: [Essential (primary) hypertension] Onset: 05-01-2022 06-08-2022 Chronic Gastritis and duodenitis (1 source) Unspecified chronic gastritis without bleeding; Translations: [UNS CHRONIC GASTRITIS W/O BLEEDING] Onset: 08-24-2022 Chronic Osteoarthritis (1 source) Unspecified osteoarthritis, unspecified site; Translations: [UNSPECIFIED OSTEOARTHRITIS UNS SITE] Onset: 05-01-2022 Chronic Other acquired deformities (2 sources) Scoliosis of lumbar spine 06-08-2022 Chronic Other bone disease and musculoskeletal deformities (2 sources) Osteopenia 06-08-2022 Episodic Other circulatory disease (2 sources) History of transient ischemic attack 06-08-2022 Episodic Other circulatory disease (2 sources) Vascular insufficiency 06-08-2022 Episodic Other gastrointestinal disorders (2 sources) Irritable bowel syndrome 06-08-2022 Chronic Other gastrointestinal disorders (1 source) Irritable bowel syndrome without diarrhea; Translations: [IRRITABLE BOWEL SYND W/O DIARRHEA] Onset: 05-01-2022 Chronic Other gastrointestinal disorders (1 source) Irritable bowel syndrome with diarrhea; Translations: [Irritable bowel syndrome with diarrhea] Onset: 01-23-2024 Chronic Other gastrointestinal disorders (2 sources) Dark stools 06-13-2022 Episodic Other gastrointestinal disorders (2 sources) History of gastritis 06-08-2022 Episodic Other gastrointestinal disorders (2 sources) Occult blood in stools 06-13-2022 Episodic Other gastrointestinal disorders (1 source) Abnormal feces; Translations: [Other fecal abnormalities] Onset: 01-23-2024 Episodic Other nervous system disorders (1 source) Chronic pain; Translations: [Other chronic pain] Chronic Other nervous system disorders (1 source) Other chronic pain; Translations: [OTHER CHRONIC PAIN] Onset: 04-27-2022 Chronic Other nutritional; endocrine; and metabolic disorders (2 sources) Overweight in adulthood with body mass index of 25 or more but less than 30 06-13-2022 Episodic Phlebitis; thrombophlebitis and thromboembolism (5 sources) Deep venous thrombosis of lower extremity; Translations: [Personal history of other venous thrombosis and embolism] Onset: 05-01-2022 06-08-2022 Episodic Residual codes; unclassified (2 sources) Edema 06-08-2022 Episodic Residual codes; unclassified (2 sources) Insomnia 06-08-2022 Episodic Residual codes; unclassified (2 sources) History of arthroscopy of knee joint; Translations: [Other specified postprocedural states] 12-13-2023 Episodic Spondylosis; intervertebral disc disorders; other back problems (11 sources) Spondylosis without myelopathy or radiculopathy, lumbar region; Translations: [Spondylosis without myelopathy or radiculopathy, thoracic region] Onset: 04-25-2022 Chronic Spondylosis; intervertebral disc disorders; other back problems (11 sources) Spinal stenosis of thoracic region; Translations: [Pain in thoracic spine] Onset: 07-27-2022 06-08-2022 Episodic Thyroid disorders (1 source) Hypothyroidism, unspecified; Translations: [HYPOTHYROIDISM UNSPECIFIED] Onset: 08-24-2022 Chronic Unclassified (3 sources) LOW BACK PAIN, UNSPECIFIED; Translations: [LOW BACK PAIN, UNSPECIFIED] Onset: 04-27-2022 Unclassified (1 source) OTHER SPECIFIED DISEASE ESOPHAGUS; Translations: [OTHER SPECIFIED DISEASE ESOPHAGUS] Onset: 08-24-2022 Unclassified (3 sources) CONTACT W/AND (SUSP) EXPOS COVID-19; Translations: [CONTACT W/AND (SUSP) EXPOS COVID-19] Onset: 05-29-2022 Varicose veins of lower extremity (2 sources) Varicose veins of lower extremity 06-08-2022 Episodic Viral infection (1 source) COVID-19; Translations: [COVID-19] Onset: 07-05-2022 Past or Other Problems Problem Classification Problem Date Documented Da te Episodic/Chronic Deficiency and other anemia (5 sources) Iron deficiency anemia, unspecified; Translations: [IRON DEFICIENCY ANEMIA UNSPECIFIED] Onset: 08-10-2022 Episodic Gastrointestinal hemorrhage (1 source) Melena; Translations: [MELENA] Onset: 08-24-2022 Episodic Other aftercare (1 source) skilled nursing (current) use of aspirin; Translations: [VICE PRESIDENT COMPLIANCE CURRENT USE OF ASPIRIN] Onset: 08-24-2022 Episodic Other aftercare (1 source) Other [facility] (current) drug therapy; Translations: [OTH SNF CURRENT DRUG THERAPY] Onset: 05-01-2022 Episodic Other [...] [Encounter for screening, unspecified] Onset: 04-28-2022 Episodic Residual codes; unclassified (1 source) Acquired absence of other specified parts of digestive tract; Translations: [ACQ ABSENCE OTH PART DIGESTV TRACT] Onset: 08-24-2022 Episodic Residual codes; unclassified (4 sources) Edema, unspecified; Translations: [EDEMA UNSPECIFIED] Onset: 08-10-2022 Episodic Thyroid disorders (1 source) Disorder of thyroid, unspecified; Translations: [DISORDER OF THYROID UNSPECIFIED] Onset: 05-01-2022 Episodic Unclassified (1 source) LOW BACK PAIN, UNSPECIFIED; Translations: [LOW BACK PAIN, UNSPECIFIED] Onset: 03-16-2023 Unclassified (1 source) CONTACT W/AND (SUSP) EXPOS COVID-19; Translations: [CONTACT W/AND (SUSP) EXPOS COVID-19] Onset: 07-04-2022 Results Test Name Value Interpretation Reference Range Facility Gastroenterology Office/Clin ic Noteon 01-23-2024 Gastroenterology Office/Clinic Note Chief Complaint ref by dr. otto for diarrhea HPI Staff This is a 83 year old female who presents today for a referral by Clarita for complaints of diarrhea. Diarrhea: How many BM a day (normal <4): one or two daily When did it start: 2 months Constant? Or alternate with normal BM or constipation: Constant Previous work up: Salmonella/Shigella- neg E coli Shiga Toxin- neg Campylobacter culture- neg C. Diff- neg Ova + Parasite- neg Occult Blood- positive Last EGD/Colon w/ Dr Bergeron 08/16/22 POSTOPERATIVE DIAGNOSIS: Mild antral gastritis as well as vascular lesion in the cardia on the lesser curve, consistent with a possible Dieulafoy's lesion and redundant colon with diverticulosis. Final diagnosis: Stomach biopsy -Antral type gastric mucosa, with mild chronic inactive gastritis -immunohistochemical stain for h. pylori is negative Lab results: 12/14/23 RBC 3.61 WBC 5.7 Hemo- 10.5 Hemat- 33.5 12/07/23 Bilirubin total 0.7 Aspartate amino transferase 20 Alanine aminotransferase 18 Alkaline Phosphatase 18 Total Protein 6.7 Albumin Level 3.4 Globulin 3.3 Albumin Globin Ratio 1.0 History of Present Illness I have reviewed HPI staff note, most recent labs and imaging, more than 30 minutes spent reviewing the chart, during encounter, placing orders and counseling the patient. diarrhea started after receiving abx for infection post knee surgery pt developed diarrhea 1-2 bms a day- started to be form pt tried pepto and this did not help much she also tried probiotics and imodium colonoscopy long time ago hx of bam 10-15 years ago Review of Systems PHQ Score Initial Depression Screen Score: 0 SCORE All systems reviewed, negative except as mentioned above Physical Exam Vitals & Measurements HR: 84(Peripheral) RR: 16 BP: 134/73 HT: 63 in HT: 159 cm WT: 55 kg WT: 121 lb BMI: 21.76 General: alert, no acute distress HEENT: atraumatic normocephalic Cardiovascular: regular rate and rhythm, normal peripheral perfusion Respiratory: Lungs CTA, respirations non labored Extremities: no deformity, no trauma Abdomen: Benign, soft, nontender nondistended Assessment/Plan 1. Irritable bowel syndrome with diarrhea (K58.0: Irritable bowel syndrome with diarrhea) 2. Positive fecal occult blood test (R19.5: Other fecal abnormalities) Orders: rifaximin, 550 mg = 1 tab(s), Oral, TID, # 42 tab(s), Refills(s) 0, Pharmacy: [facility]/pharmacy #[id number], 159, cm, 01/23/24 14:05:00 EDT, Height/Length Dosing, 55, kg, 01/23/24 14:05:00 EDT, Weight Dosing Likely postinfectious versus antibiotic induced diarrhea(IBS) Patient will continue probiotics Will treat with a course of rifaximin for 2 weeks If she does not feel better after completing antibiotics, will proceed with colonoscopy and random colon biopsies Follow-up No qualifying data available Problem List/Past [...] Tab, 5 mcg= 1 tab(s), Oral, Daily Metoprolol tartrate 50 mg Tab nitroglycerin 0.4 mg sublingual Tab, 0.4 mg= 1 tab(s), SubLingual, q5min, PRN omeprazole 20 mg Cap-DR, 20 mg= 1 cap(s), Oral, BID Osteo Bi-Flex, 1 tab(s), Oral, Daily rifaximin 550 mg oral tablet, 550 mg= 1 tab(s), Oral, TID temazepam 15 mg Cap, 15 mg= 1 cap(s), Oral, Once a day (at bedtime) triamcinolone Top 0.1% Crm, 1 dano, Topical, BID Allergies No Known Allergies No Known Medication Allergies Social History Alcohol - Denies Alcohol Use, 06/13/2022 Substance Abuse - Denies Substance Abuse, 06/13/2022 Tobacco Never (less than 100 in lifetime) Tobacco Use:., 01/23/2024 Never (less than 100 in lifetime) Tobacco Use:. Never Smokeless Tobacco Use:., 06/13/2022 Family History Cancer: Sister and Brother. Cirrhosis o (more content not included)... [facility] Comment on above: Result Comment: Elec tronically Signed By: Zeina LONGORIA, Lynn Mohr\.br\Date and Time Signed: 01/23/24 14:17 EDT Physician Referralon 024 Physician Referral [phone] [id number] [facility] Coding Summaryon 10-22-2023 Coding Summary HTMLBase 64 UkeumiabYPh1uHz+PGhlYWQ+PE1F PFJzB37vnGCnjU9sQ7BLCPxFDoge KOXYYFtEQyYuhcMcKT5rpUWpWXNm IC8+TF9cAIMeVhyssUXxd2F6nDJ4 N22pyy3eGPsjvWJ3ZHUjJuFoleoo t6ewjRc8NFleIzccIjVb VNQzmT75CDQ5sX78Su94sDDvpPSs i0ygqKq1YeMcXDUcJPO1aRagUDfx o1DaQPTdM21lbAWsy7R5 SXVhtFzisREpHxFctLM8xY7eVIeb ahcqk8dipqglTdq9ga30zXOvg0H5 gSE7B1EbjdG8YJAmaVSn AejbhFODdU9rhglrg4mxufxmDiRh CWQlTJo1AFd2ZWSmwGqeLhKwLD82 HEI8YQFtpsJgW3PcHOJi xAxqZhB9r6Q7Qi1CL1DYLvwyO9EC TUFSWTwvdGQ+ZP72br70W2ZhGvjq Wlp0LERuJHS1zWC2bR3f KWZuLNisd2A2rYT3T5FsdaXzqz2p r9euSTGbWJgoR80svVBqs5P1GTBo wXG3HLQmgPhwTvSpmK22 Oyc+LWDtjLjko6CaXuqub8deq0jp zWp6WsmmXQCysbNyjSksTEZ8z1Sn Rh7qMPIqeEG7cPG7nB7e LzGzEyY2RDtlG192HoHztYGkEgsa L65rQ3MnnZJ+YZJfAlt6RBXxlUzs TW8iJ2YmHDFwsagdwNMn sJwcJD0bCOPxqyfyBUQwrI4bAKMt T9w1PqUnNlI5EEdrM1DvYUNxblbb Ir41aO9pAuCgTgB9AOgd X6PiyuJ5EBGwmDVxPIqfRZM7A34o o9P1WNUiGRVuDCS5vIX1fC5lgAhe bjogbGVmdDsgdmVydGlj RRloHVtuH216AVBmrRkpNnUiZHqv ZyBEYXRlOiAgMTIvMTgvMjAyMzwv dGQ+MWNqRAJ6jJzrEWWe bYEiJAxlEs9ukVsulJqlEA1dAJHe ifttCVEgdQ3cWVIrqNKcoKwmHS1n XUTevncis943XjSiZMF6 QBIdxSNqD9FynA1wWiExNKOjNEOp K4CnoOOkRQphV919YLefWzF0XWTa wwDbG6KiKIXedQkaYhQ8 l0U1Qm2Qx7KhzziuO1VcvKGwCqVx IumnZBp9X5RuSjudiDT+LL32FBAb MR24WMt6TZA7oTmkTGsl KHNpL8GxgD0bPqVeBCHcFLHtDkg+ PHRhYmxlIHdpZHRoPScxMDAlJyBz ePeaZH5tUf7fOQHySNUx mZvalVCuRtSwy3thJQVaVRynLV6u oEktH5CliYX6QKIfs4b3Ye89Y35y H9VbwQW+EZXtnEQ9qDU6 qY6cCdFjLpA8XNmxC317EbRreZXb Vyyqt5wes1qwhDz2RcO8PGDxczQp hGurFQV0p3KuNy11E03q UZltNLFdOHYgLONvHMHppTxxyo4d vT9nGj7+WNQduZI4dNU2xE6gZmYl UjI1AGrsC944OoLygINx Chxzg4bva8bjlDn8GaEyKBTweaOj kHnjOWG7f2BbJm31D6QwoQbcu8Fq Vsj1cn76vEFkq8Q0vLP1 X8SvRFUzesawbSSsoRihYK4qYWLx zpkdYEGynF3yJNXkE5h3MmIrDnI4 QWwsD7DcdcX3AHOlyZIs VFCpfXAOcS8rtebgt7fbojygKrTs IMVcFCl6FHx0SNAgkKtqIxRaDJK1 ZrN4ETO7qURmuL6bsBbi vkcuqW7zVyv+EOR7pPYprOTVIE3f OjwvdGQ+SVUsUOE2iLzrCRyeOZWs wC0cLHGjJ3v7RtXlXlC7 IAgcW3FcyrP7FWPlhCKpYVFwqOSN dV8gqxnjx2amintbEmFyZPNvSSq0 JYg9MENjzGpcSdNiMMX4 GvQ5JVX4aYKjtS1npWtubqifyS0o Oyc+CqftdFhdRSM2ODg7E4GcQnj6 YTAjpCtvNP4gxWOvIIqx Mi0nbJmlxPucPU4wSTEfvjogl702 BbUdf3tqYMSnaMUtSYkqDPK6A25t x4C4BBUaNKXbZFV8tSY4 vD9qkPtcjpkmmPDylDkjgiFhgKgd XJrxVNkaK232OKXrjPfyRkWbIRq8 Y0QsVaz8GVCqyZpmPE0b bIIhKNvrLn9keLlwvCdyMT6nCEUh mftho698KzGvd1lnSWUkhQTlSJim AGK4O78jd6G0VQZiHURr IGP3nLA1hM6beXxacagzlSQgpJqs muWyuVyzLDfyOYigM050FJGvmCls PbPyfTd8K1DfAsv8OJSe zXgrYF3pgEAmOJsbIy3zdNmujMvy XD2tIZTcxgivw906MeIsq4txYFAh rYEfBAsiOMV9I89cu8E4 DGImGSUjDQV3nGN3xJ9uaPirotst aHXavYpulxGqoPcjYTngEDvoM434 IHRvcDsnPlBhdGllbnQg SXjnYGt1U8JzAodteAI+DX29OPYd KF64iGSowJAgc6vfhHu5UtLxGHGz COF7rIgiEAvjd8EeNWNn K30xfNScz8B9IJIbuWnheQZnMxLb jOI6oM1lYAotpdeqw1cjqkdfNuiw r5gqir45bQ83J65wEBmw YAZtKDPmBRWcQTHwzSifpx2fyF8b Ii8+GWSkkKK0aGZ5xH9hKOQhNqZ3 OKblC302OiScxHMsNlpt a8vxx7qtfTv2JwR7PYQfibItuXjs HDO5s6NwNc07T16vWPmvTPWrGWJr XBCaVGEjiSwlmc3icZ3f Ii8+CZRwdOU6sFU9fA7xGuPjFsO0 NZkqU292RvSpwGPyPccrF61zF5Gj dXA+NGGrKop9KSPynHxo GF7vlXYpLNpqAd3sHUH6KbDvBoTi IItuI3FkZXAqreixfraslBP9TWDr HLPwqU09Ek3tjUzgPJJo uQKKxB4dhkfiw4sazzfzHcNoHGEc LAz3PEb7SMPpoXmyMmFxGQM0UvW7 EFR3yPOxxB8ssUgoeswm wY7eN8GjIOTnbwldKo98cL9gTkIv WfZ3ASdgOui+UkFJRlNOSURFUiwg TUFSWSBBTElDRTwvdGQ+ KCMtOFR3rXoyVQprWVZteX5qOSJa F2r6UeUaOuK2TRoyB5OsLHZrlftt Oj90xX6dDjNrTeG2RToj S7RoziP0NDLofPMvZDhfLQQ8X54q y6V0VASeZEHyYPM2vDX1gF8gkLbb bjogbGVmdDsgdmVydGlj XGqdMVgqK011FRXbkQqjDcZ7YlRy SxL9Kxp7I7JqEnp2MFUyqUwoWX8g cTFmBVdcUn3qsHzgpJrb SX4dEGCrirtjPMMajL0tRMVwxSYf bRopFH4eZCLtirodn663OlCxHYI9 XUQvmUMhT7CxyF1wVwJd ILMbVDTpE3StmLZkWBigW627AZxe FjA5GSLbkbQwK2HaYAYqbTwmCqD8 q9A0Xm92REHPZYNtgtfa dGQ+MNMbCHV0iVfxCCmdGGUjeX7s FNScJ6v0LcAfHlK5KLfyJ2HrMUAt bxexEi43nR1mIwCdXxA5 UJhpJ7LcdmO2TFYubUGvSYhmSEU3 T40an3S0ZLIfFFTaCIX9xBZ7pZ0j bGlnbjogbGVmdDsgdmVy cLqcEJgcBMjzP769PYNwuRpeMiNX TUFMRTwvdGQ+JVThHKN9lIzbHZiq TRUybP2fTXLrG4e8HxLi CyH8XSiqF8OnRMVxthkoOu83yF6o EmRoFkU6MDysV7HrryW1SLRutQMm PJpwQAV0N41bm1K9RXRo CFHwXDG9gMA0rJ4naQuqqtfrvXLu hKmxjhFomOfnUOnzSYoiQ889DJAq oKnuDjknnIJ5sUZtxIhe dGQ+QL74kk29H4VuPjptKjd4IEAw ECF9bAM3bX6fXCLhYZidz4U4nTT6 L9XmyuKcue7rf7nfJNIv MLynH60ryKYux5Y0EENifPD0OXXx eXhlGpXqyN07Ije+NNVjdIjdc0Dw Oixfw3iee7buvDn5SyAd SDFvluUtiOotLTZ9j1JxTq61N07t VFqrKHKmBKLxGFJgGUGkcHhymz2z eV2pMa2+VJFxoFA2gRI8 zS9kOgLgLbX0FJbmU512DsGvxOJr Nylxd3rir6jxwWa1LcJdKOOltjBa fPslLMH9c3MuXo45Y6Nw qQqvn9VgZva7gt15oQGjz9M7oXF3 B8ScOGSeturhmWXdeZvbNM3rLBTt feqrMQPiwJ1mMIHuD0v0 YeKgWmI0KLnhW9LetmW7TNCgvNIr IKGpyCVYgB8haecgx9wwxwanTiAg ZLHdLLf9APb8PHFjgPey IaAmITE2RvL4BUD3pQPdgZ3tqVld avfzsH1vCom+YYv8r3fchZCbYE5f vFD2PU07IG01vYQtl5B4 cXZ4K2PgROJhttqlohgygSK7BROp ZRWnwX72Bm5nqMcnAh4dMJFjZNT3 TFUwwMGdT8CjmU1gXkAt ZLEoTGPdD5XqyXFuONyoW041OJja JdR2ELGrfnAlB3TyEUYlsOmqDjT4 q6X7Ac0FGL54YU37FK14 sOFcu1Z5xZY7W4RjPBUnvtufxvcu rZF7YPMaYORprP50Iw0gqGezJz7n EXRuWMV8GNEkeOCvW8Bl gR4jJpPfZKJcZEQuR7SfdMPfVVyh U764QBpjOmB9UYJsgaHdY3MtBVDp rGbzQgA4y1Y9Go1DMg60 WA63BC55dTQcy5X6qHM9A5HcAUXr fvjredvknHX0ZDXlVCDgeA39Gg6a uSybBg5fKUBcPZV3LFJh qYQyJ9LjrP4cDqYoEVLiREWtH4Jz lQPgKIweV996TGycWhH1BQXqleBj M9FbGPDvqDdmTaJ1h7W1 Ce1UBDvywvm9J4MtKbwqmGN+PC90 FAGbMN39kERwjOSxv5wnoMo9XvMz MVXrUKK6fPcvJRfbf7Qh ZXI (more content not included)... Normal [facility] C Bloodon 10-18-2023 C Blood No growth at 5 Days Normal [facility] Comment on above: Performed By: #### 2 [id number] #### [facility] (DEFAULT) [address] [place] [address] Consent Formson 10-17-2023 Consent Forms [id number]#1.00[facility] Outside Recordson 10-17-2023 Outside Records [id number]#1.00[facility] Provider Orderson 10-17-2023 Provider Orders [id number]#1.00[facility] Telemetry Stripson Telemetry Strips [id number]#1.00[facility] Therapeutic Documentation on 10-16-2023 Therapeutic Documentation [id number]#1.00[facility] C Bloodon 10-16-2023 C Blood patient went to CAT [place] when patient is back to her room @1440 elilrussell No growth at 5 Days [facility] Comment on above: Performed By: #### 6 [id number] ####[facility] (DEFAULT)[address] [place] [id number] CRPon 10-16-2023 CRP 3.1 mg/dL High <=0.5 [facility] Comment on above: Performed By: #### 2 [id number] #### [facility] (DEFAULT) [address] [place] [id number] Inpatient Patient Summaryon 10-16-2023 Inpatient Patient Summary [address] [address] Patient Discharge Instructions Name: ALICIA NGUYỄN : 1940 Patient Address: [address] [place] [address] Primary Care Provider: Name: SANTIAGO OTTO After you are discharged if you find you have any questions, please, call [phone] ext [phone] to speak to a nurse. The Pharmacy at [facility] is open Sunday through Sunday from [...] alcohol and/or drug addiction problems; contact the [facility] 28/05 Crisis Hotline -Text 2ICOE zl [phone]. If you received any narcotics, sedation, or [...] business decisions or sign any legal documents [facility] would like to thank you for allowing us to assist you with your healthcare needs. The following includes patient education materials and information regarding your injury/illness. ALICIA NGUYỄNCE has been given the following list of follow-up instructions, prescriptions, and patient education materials: Follow-up Instructions With: Address: When: JOB AGUILAR DO [address] [facility] [address] [place] [address] Within 10 to 12 days Comments: orthopedic follow up With: Address: When: Jamal Vizcarra [address] [place] [address], [address] [place] [address] Business (1) 10/26/2023 10:30 AM [...] 30 mg o (more content not included)... [facility] Noteon 10-16-2023 Pharmacy Note I have [...] list against external fill history and available [employer] ARCHITECT medication history to ensure accuracy. Reviewed regimen upon discharge which is appropriate and correct. Did not psychologist counseling patient is going to senior care. [Electronically Signed on: 10/16/2023 11:12 EST] Jamal Butler [Verified on: 10/16/2023 11:12 EST] Jamal Butler Normal [facility] Sed Rateon 10-16-2023 Sed Rate 83 mm/hr High 0-20 [facility] Comment on above: Performed By: #### 2 343179, [id number] #### [facility] (DEFAULT) [address] [place] [address] 07428 .Auto Diff 1on 10-15-2023 Auto [place] % 9 % Normal 11-16 [facility] Comment on above: Performed By: #### 2 004357, [id number], 95545419, 4209025, 9194781 #### [facility] (DEFAULT) [address] [place] [address] 61587 Baso Abs# 0.0 x10 Normal 0.0-0.2 [facility] Comment on above: Performed By: #### 2 972212, [id number], 01507557, 6374258, 2423117 #### [facility] (DEFAULT) [address] [place] [address] 11397 Basophils/100 WBC (Bld) 0.2 % Normal 0.2-2.0 [facility] Comment on above: Performed By: #### 2 796244, [id number], 11361279, 1525212, 3126224 #### [facility] (DEFAULT) [address] [place] [address] 98545 Eos Abs# 0.1 x10 Normal 0.0-0.4 [facility] Comment on above: Performed By: #### 2 803941, [id number], 55209918, 8659899, 0909060 #### [facility] (DEFAULT) [address] [place] [address] 63808 Eosinophils/100 WBC (Bld) 0.8 % Low 0.9-4.0 [facility] Comment on above: Performed By: #### 2 866076, [id number], 64885292, 2169457, 8918947 #### [facility] (DEFAULT) [address] [place] [address] 56679 Lymph Abs# 1.1 x10 Low 1.3-2.9 [facility] Comment on above: Performed By: #### 2 066280, [id number], 06742126, 5083071, 2686880 #### [facility] (DEFAULT) [address] [place] [address] 75680 Lymphocytes/100 WBC (Bld) 13 % Low 14-48 [facility] Comment on above: Performed By: #### 2 088612, [id number], 55123047, 2189208, 3432737 #### [facility] (DEFAULT) [address] [place] [address] 16485 [place] Abs# 0.8 x10 Normal 0.0-0.8 [facility] Comment on above: Performed By: #### 2 864160, [id number], 94231766, 1944780, 9997875 #### [facility] (DEFAULT) [address] [place] [address] 49867 Neut Abs# 6.5 x10 Normal 1.5-9.2 [facility] Comment on above: Performed By: #### 2 666873, [id number], 72723092, 1674277, 1771388 #### [facility] (DEFAULT) [address] [place] [address] Neutrophils/100 WBC (Bld) 76 % Normal 44-88 [facility] Comment on above: Performed By: #### 2 856504, [id number], 64491659, 6021537, 1654366 #### [facility] (DEFAULT) [address] [place] [address] BMP Standardon 10-15-2023 Breakpoint Chem Normal [facility] Comment on above: Performed By: #### 2 483781, [id number], 28195246, 9105845, 3780113 #### [facility] (DEFAULT) [address] [place] [address] 78430 eGFR Non AA >60 Invalid Interpretation Code [facility] Comment on above: Performed By: #### 2 251275, [id number], 93152472, 5445436, 2026241 #### [facility] (DEFAULT) [address] [place] [address] 37374 eGFR AA >60 Invalid Interpretation Code [facility] Comment on above: Performed By: #### 2 984250, 8537321533, 88872881, 6019395, 8265265 #### [facility] (DEFAULT) [address] [place] [address] 96504 Anion gap [Moles/Vol] 7.4 mmol/L Normal 5.0-19.0 [facility] Comment on above: Performed By: #### 2 146312, [id number], 03239905, 5720950, 9889553 #### [facility] (DEFAULT) [address] [place] [address] 92717 Calcium [Mass/Vol] 8.8 mg/dL Low 8.9-10.3 [facility] Comment on above: Performed By: #### 2 059779, [id number], 02061923, 8812104, 8319009 #### [facility] (DEFAULT) [address] [place] [address] 10734 Chloride [Moles/Vol] 106 mmol/L Normal 101-111 [facility] Comment on above: Performed By: #### 2 086956, [id number], 13721944, 0124768, 8871079 #### [facility] (DEFAULT) [address] [place] [address] 39884 CO2 [Moles/Vol] 26 mmol/L Normal 21-32 [facility] Comment on above: Performed By: #### 2 119104, 5711911031, 27443784, 3232285, 8241175 #### [facility] (DEFAULT) [address] [place] [address] 00141 Creatinine [Mass/Vol] 0.88 mg/dL Normal 0.60-1.30 [facility] Comment on above: Performed By: #### 2 971262, 6787008798, 92263086, 9314113, 5487215 #### [facility] (DEFAULT) [address] [place] [address] 67260 Glucose [Mass/Vol] 109.0 mg/dL Normal 74.0-118.0 [facility] Comment on above: Performed By: #### 2 516391, 7314355575, 00741290, 5257234, 3077114 #### [facility] (DEFAULT) [address] [place] [address] 17818 Osmolality 273 mOsm/L Invalid Interpretation Code [facility] Comment on above: Performed By: #### 2 273465, 6321452762, 10449917, 3231346, 6106393 #### [facility] (DEFAULT) [address] [place] [address] 61417 Potassium [Moles/Vol] 4.4 mmol/L Normal 3.6-5.1 [facility] Comment on above: Performed By: #### 2 005335, [id number], 99329177, 5694572, 8444962 #### [facility] (DEFAULT) [address] [place] [address] Sodium [Moles/Vol] 135.0 mmol/L Low 136.0-144.0 [facility] Comment on above: Performed By: #### 2 430729, 9094301927, 58346352, 6376460, 6096782 #### [facility] (DEFAULT) [address] [place] [address] Urea nitrogen [Mass/Vol] 19 mg/dL Normal 8-26 [facility] Comment on above: Performed By: #### 2 787211, 0912090455, 82731556, 3219717, 1218832 #### [facility] (DEFAULT) [address] [place] [address] Urea nitrogen/Creatinine [Mass ratio] 21.5 mg/mg High 4.6-16.2 [facility] Comment on above: Performed By: #### 2 225960, 5696938602, 27096916, 6888503, 8135369 #### [facility] (DEFAULT) [address] [place] [address] CBC w/ Auto Diffon 3 Erythrocyte distribution width (RBC) [Ratio] 15.3 % High 11.5-15.0 [facility] Comment on above: Performed By: #### 2 844847, 0391356161, 83386021, 6131653, 5656039 #### [facility] (DEFAULT) [address] [place] [address] Hematocrit (Bld) [Volume fraction] 29.8 % Low 33.7-40.4 [facility] Comment on above: Performed By: #### 2 410175, 1276253754, 45863841, 8473572, 4889533 #### [facility] (DEFAULT) [address] [place] [address] Hemoglobin (Bld) [Mass/Vol] 9.9 g/dL Low 11.3-15.9 [facility] Comment on above: Performed By: #### 2 031720, 0854814330, 99733345, 5574789, 0697249 #### [facility] (DEFAULT) [address] [place] [address] Man Diff? Auto Invalid Interpretation Code [facility] Comment on above: Performed By: #### 2 508438, 3301206170, 45357965, 5900547, 1527397 #### [facility] (DEFAULT) [address] [place] [address] MCH (RBC) [Entitic mass] 30 pg Normal 24-34 [facility] Comment on above: Performed By: #### 2 422400, 8574801131, 29230965, 3037901, 6319158 #### [facility] (DEFAULT) [address] [place] [address] MCHC (RBC) [Mass/Vol] 33 g/dL Normal 26-37 [facility] Comment on above: Performed By: #### 2 663919, 0431495453, 25764149, 4757210, 3540054 #### [facility] (DEFAULT) [address] [place] [address] MCV (RBC) [Entitic vol] 90 fL Normal 81-100 [facility] Comment on above: Performed By: #### 2 254746, 2284856714, 46590713, 5016293, 2798172 #### [facility] (DEFAULT) [address] [place] [address] 88356 Platelet 363 x10 Normal 138-427 [facility] Comment on above: Performed By: #### 2 863778, 7590663229, 03477091, 5624549, 6037038 #### [facility] (DEFAULT) [address] [place] [address] Platelet mean volume (Bld) [Entitic vol] 6.1 fL Low 6.3-10.2 [facility] Comment on above: Performed By: #### 2 133229, 5552901830, 87353282, 8526925, 3602080 #### [facility] (DEFAULT) [address] [place] [address] RBC 3.31 x10 Low 3.70-5.30 [facility] Comment on above: Performed By: #### 2 745591, 0557981632, 23896310, 3392521, 1449803 #### [facility] (DEFAULT) [address] [place] [address] 73366 WBC 8.5 x10 Normal 3.5-10.5 [facility] Comment on above: Performed By: #### 2 926142, 8073535776, 09059781, 8937782, 4590561 #### [facility] (DEFAULT) [address] [place] [address] 18886 CRPon 10-15-2023 CRP 2.1 mg/dL High <=0.5 [facility] Comment on above: Performed By: #### 2 103436, 2105044727, 27224026, 0226671, 2382474 ####[facility] (DEFAULT)[address] [place] [address] 42466 Nutrition Noteon 10-15-2023 Nutrition Note Per intake records, Pts avg 75+% of meals. Last BM 10/13. 10/15 labs reviewed, CRP/sed rate slowly improving. PICC line in place for IV atb. Discharge anticipated for tomorrow. Normal [facility] Sed Rateon 10-15-2023 Sed Rate 78 mm/hr High 0-20 [facility] Comment on above: Performed By: #### 2 514807, 7132397969, 05668361, 8626451, 9582407 ####[facility] (DEFAULT)[address] [place] [address] 97222 XR Chest 1 View Frontalon XR Chest [...] DO 10/15/23 1:04 pm Technologist: Peggy LOMELI Normal [facility] C Fluidon 10-14-2023 C Fluid Moderate [...] <=0.5 Verified Vanc S 0.5 Verified Normal [facility] Comment on above: Performed By: #### 2 769581, 0316148 #### [facility] (DEFAULT) [address] [place] [address] CRPon 10-14-2023 CRP 1.8 mg/dL High <=0.5 [facility] Comment on above: Performed By: #### 2 852022, 7420897 #### [facility] (DEFAULT) [address] [place] [address] Sed Rateon 10-14-2023 Sed Rate 74 mm/hr High 0-20 [facility] Comment on above: Performed By: #### 2 055836, 0814124 #### [facility] (DEFAULT) [address] [place] [address] 43151 .Auto Diff 1on 10-13-2023 Auto [place] % 5 % Normal 11-16 [facility] Comment on above: Performed By: #### 2 249333, 5786663 #### [facility] (DEFAULT) [address] [place] [address] Baso Abs# 0.0 x10 Normal 0.0-0.2 [facility] Comment on above: Performed By: #### 2 328329, 9892175 #### [facility] (DEFAULT) [address] [place] [address] 76965 Basophils/100 WBC (Bld) 0.2 % Normal 0.2-2.0 [facility] Comment on above: Performed By: #### 2 637644, 5779686 #### [facility] (DEFAULT) [address] [place] [address] 76262 Eos Abs# 0.0 x10 Normal 0.0-0.4 [facility] Comment on above: Performed By: #### 2 467512, 1499293 #### [facility] (DEFAULT) [address] [place] [address] Eosinophils/100 WBC (Bld) 0.1 % Low 0.9-4.0 [facility] Comment on above: Performed By: #### 2 153171, 4228340 #### [facility] (DEFAULT) [address] [place] [address] Lymph Abs# 1.0 x10 Low 1.3-2.9 [facility] Comment on above: Performed By: #### 2 694743, 7685757 #### [facility] (DEFAULT) [address] [place] [address] 89240 Lymphocytes/100 WBC (Bld) 9 % Low 14-48 [facility] Comment on above: Performed By: #### 2 824160, 1297509 #### [facility] (DEFAULT) [address] [place] [address] 92852 [place] Abs# 0.6 x10 Normal 0.0-0.8 [facility] Comment on above: Performed By: #### 2 284570, 1626628 #### [facility] (DEFAULT) [address] [place] [address] 91562 Neut Abs# 10.1 x10 High 1.5-9.2 [facility] Comment on above: Performed By: #### 2 668232, 8280275 #### [facility] (DEFAULT) [address] [place] [address] 75017 Neutrophils/100 WBC (Bld) 86 % Normal 44-88 [facility] Comment on above: Performed By: #### 2 352008, 3565160 #### [facility] (DEFAULT) [address] [place] [address] 53929 BMP Standardon 10-13-2023 Breakpoint Chem Normal [facility] Comment on above: Performed By: #### 2 704576, 9351109 #### [facility] (DEFAULT) [address] [place] [address] 52101 eGFR Non AA >60 Invalid Interpretation Code [facility] Comment on above: Performed By: #### 2 716561, 5066357 #### [facility] (DEFAULT) [address] [place] [address] 88723 eGFR AA >60 Invalid Interpretation Code [facility] Comment on above: Performed By: #### 2 343755, 5183571 #### [facility] (DEFAULT) [address] [place] [address] 70216 Calcium [Mass/Vol] 8.5 mg/dL Low 8.9-10.3 [facility] Comment on above: Performed By: #### 2 999565, 8808703 #### [facility] (DEFAULT) [address] [place] [address] 48826 Chloride [Moles/Vol] 105 mmol/L Normal 101-111 [facility] Comment on above: Performed By: #### 2 586740, 0292106 #### [facility] (DEFAULT) [address] [place] [address] 94984 CO2 [Moles/Vol] 24 mmol/L Normal 21-32 [facility] Comment on above: Performed By: #### 2 730206, 6032374 #### [facility] (DEFAULT) [address] [place] [address] 12746 Creatinine [Mass/Vol] 0.76 mg/dL Normal 0.60-1.30 [facility] Comment on above: Performed By: #### 2 769300, 8769813 #### [facility] (DEFAULT) [address] [place] [address] 85956 Glucose [Mass/Vol] 113.0 mg/dL Normal 74.0-118.0 [facility] Comment on above: Performed By: #### 2 197859, 2425379 #### [facility] (DEFAULT) [address] [place] [address] 26208 Potassium [Moles/Vol] 4.9 mmol/L Normal 3.6-5.1 [facility] Comment on above: Performed By: #### 2 160587, 0129472 #### [facility] (DEFAULT) [address] [place] [address] 51737 Sodium [Moles/Vol] 135.0 mmol/L Low 136.0-144.0 [facility] Comment on above: Performed By: #### 2 373461, 3991423 #### [facility] (DEFAULT) [address] [place] [address] 32522 Urea nitrogen [Mass/Vol] 33 mg/dL High 8-26 [facility] Comment on above: Performed By: #### 2 013949, 2654637 #### [facility] (DEFAULT) [address] [place] [address] 52650 Anion gap [Moles/Vol] 10.9 mmol/L Normal 5.0-19.0 [facility] Comment on above: Performed By: #### 2 039516, 6846962 #### [facility] (DEFAULT) [address] [place] [address] 16841 Osmolality 278 mOsm/L Invalid Interpretation Code [facility] Comment on above: Performed By: #### 2 088842, 2511325 #### [facility] (DEFAULT) [address] [place] [address] 85499 Urea nitrogen/Creatinine [Mass ratio] 43.4 mg/mg High 4.6-16.2 [facility] Comment on above: Performed By: #### 2 340507, 1038098 #### [facility] (DEFAULT) [address] [place] [address] 14868 C Bloodon 10-13-2023 C Blood Bacillus species No ANICETO performed on this organism Results called to Alicia Leonard RN at 2S by CDD and results read back for confirmation on 10/12/2023 05:12:42 Normal [facility] Comment on above: Performed By: #### 2 666094, 6591292 #### [facility] (DEFAULT) [address] [place] [address] 15022 CBC w/ Auto Diffon 3 Erythrocyte distribution width (RBC) [Ratio] 15.0 % Normal 11.5-15.0 [facility] Comment on above: Performed By: #### 2 155976, 2519518 #### [facility] (DEFAULT) [address] [place] [address] Hematocrit (Bld) [Volume fraction] 26.7 % Low 33.7-40.4 [facility] Comment on above: Performed By: #### 2 252609, 6120802 #### [facility] (DEFAULT) [address] [place] [address] Hemoglobin (Bld) [Mass/Vol] 8.9 g/dL Low 11.3-15.9 [facility] Comment on above: Performed By: #### 2 525467, 9687942 #### [facility] (DEFAULT) [address] [place] [address] Man Diff? Auto Invalid Interpretation Code [facility] Comment on above: Performed By: #### 2 289599, 2874187 #### [facility] (DEFAULT) [address] [place] [address] 59976 MCH (RBC) [Entitic mass] 30 pg Normal 24-34 [facility] Comment on above: Performed By: #### 2 407868, 7005221 #### [facility] (DEFAULT) [address] [place] [address] 86705 MCHC (RBC) [Mass/Vol] 33 g/dL Normal 26-37 [facility] Comment on above: Performed By: #### 2 441026, 6415685 #### [facility] (DEFAULT) [address] [place] [address] 61014 MCV (RBC) [Entitic vol] 89 fL Normal 81-100 [facility] Comment on above: Performed By: #### 2 945989, 6010792 #### [facility] (DEFAULT) [address] [place] [address] 50758 Platelet 386 x10 Normal 138-427 [facility] Comment on above: Performed By: #### 2 383917, 5226062 #### [facility] (DEFAULT) [address] [place] [address] 04419 Platelet mean volume (Bld) [Entitic vol] 6.1 fL Low 6.3-10.2 [facility] Comment on above: Performed By: #### 2 279513, 3550970 #### [facility] (DEFAULT) [address] [place] [address] RBC 3.00 x10 Low 3.70-5.30 [facility] Comment on above: Performed By: #### 2 324670, 1104437 #### [facility] (DEFAULT) [address] [place] [address] WBC 11.8 x10 High 3.5-10.5 [facility] Comment on above: Performed By: #### 2 378880, 3081839 #### [facility] (DEFAULT) [address] [place] [address] CRPon 10-13-2023 CRP 3.2 mg/dL High <=0.5 [facility] Comment on above: Performed By: #### 2 840708, 6334800 #### [facility] (DEFAULT) [address] [place] [address] 37299 Sed Rateon 10-13-2023 Sed Rate 82 mm/hr High 0-20 [facility] Comment on above: Performed By: #### 2 296807, 6645796 #### [facility] (DEFAULT) [address] [place] [address] .Auto Diff 110-12-2023 Auto [place] % 6 % Normal -12 [facility] Comment on above: Performed By: #### 1 7435734, 0806966929, 2075150 ####[facility] (DEFAULT)[address] [place] [address] 83090 Baso Abs# 0.0 x10 Normal 0.0-0.2 [facility] Comment on above: Performed By: #### 1 5992088, 0962891109, 1228355 ####[facility] (DEFAULT)[address] [place] [address] Basophils/100 WBC (Bld) 0.1 % Low 0.2-2.0 [facility] Comment on above: Performed By: #### 1 0563868, 9773171334, 1316612 ####[facility] (DEFAULT)[address] [place] [address] 42809 Eos Abs# 0.0 x10 Normal 0.0-0.4 [facility] Comment on above: Performed By: #### 1 0280688, 1479174881, 8366869 ####[facility] (DEFAULT)[address] [place] [address] 08357 Eosinophils/100 WBC (Bld) 0.0 % Low 0.9-4.0 [facility] Comment on above: Performed By: #### 1 3980453, 6057692200, 7913833 ####[facility] (DEFAULT)[address] [place] [address] Lymph Abs# 0.7 x10 Low 1.3-2.9 [facility] Comment on above: Performed By: #### 1 4469176, 4606820687, 1824129 ####[facility] (DEFAULT)[address] [place] [address] 32677 Lymphocytes/100 WBC (Bld) 6 % Low 14-48 [facility] Comment on above: Performed By: #### 1 4481490, 3127292103, 4154304 ####[facility] (DEFAULT)[address] [place] [address] 84128 [place] Abs# 0.7 x10 Normal 0.0-0.8 [facility] Comment on above: Performed By: #### 1 2904947, 9094736327, 6620244 ####[facility] (DEFAULT)[address] [place] [address] 43781 Neut Abs# 10.3 x10 High 1.5-9.2 [facility] Comment on above: Performed By: #### 1 2630931, 5690411256, 4335824 ####[facility] (DEFAULT)[address] [place] [address] 11933 Neutrophils/100 WBC (Bld) 88 % Normal 44-88 [facility] Comment on above: Performed By: #### 1 6655584, 7917709277, 8408127 ####[facility] (DEFAULT)[address] [place] [address] CBC w/ Auto Diffon 3 Erythrocyte distribution width (RBC) [Ratio] 15.5 % High 11.5-15.0 [facility] Comment on above: Performed By: #### 1 8578454, 7106798611, 5224417 ####[facility] (DEFAULT)[address] [place] [address] Hematocrit (Bld) [Volume fraction] 29.6 % Low 33.7-40.4 [facility] Comment on above: Performed By: #### 1 8980173, 4630423310, 7985131 ####[facility] (DEFAULT)[address] [place] [address] Hemoglobin (Bld) [Mass/Vol] 10.1 g/dL Low 11.3-15.9 [facility] Comment on above: Performed By: #### 1 0762727, 1880834081, 2952952 ####[facility] (DEFAULT)[address] [place] [address] Man Diff? Auto Invalid Interpretation Code [facility] Comment on above: Performed By: #### 1 1455209, [id number], 0127039 ####[facility] (DEFAULT)[address] [place] [address] MCH (RBC) [Entitic mass] 30 pg Normal 24-34 [facility] Comment on above: Performed By: #### 1 9731062, 8256304397, 5557210 ####[facility] (DEFAULT)[address] [place] [address] MCHC (RBC) [Mass/Vol] 34 g/dL Normal 26-37 [facility] Comment on above: Performed By: #### 1 2525430, 4372037612, 7528133 ####[facility] (DEFAULT)[address] [place] [address] MCV (RBC) [Entitic vol] 88 fL Normal 81-100 [facility] Comment on above: Performed By: #### 1 5691900, 3869797879, 6652954 ####[facility] (DEFAULT)[address] [place] [address] 00093 Platelet 434 x10 High 138-427 [facility] Comment on above: Performed By: #### 1 4058328, 8537260792, 5835062 ####[facility] (DEFAULT)[address] [place] [address] 11642 Platelet mean volume (Bld) [Entitic vol] 6.2 fL Low 6.3-10.2 [facility] Comment on above: Performed By: #### 1 9372870, 1825850930, 2540157 ####[facility] (DEFAULT)[address] [place] [address] RBC 3.38 x10 Low 3.70-5.30 [facility] Comment on above: Performed By: #### 1 5366510, 9884264281, 4403982 ####[facility] (DEFAULT)[address] [place] [address] WBC 11.7 x10 High 3.5-10.5 [facility] Comment on above: Performed By: #### 1 4035933, 4059447940, 4645354 ####[facility] (DEFAULT)[address] [place] [address] Standardon 10-12-2023 eGFR Non AA 57 mL/min/1.73m2 Invalid Interpretation Code [facility] Comment on above: Performed By: #### 1 7312971, [id number], 7606902 ####[facility] (DEFAULT)[address] [place] [address] 17975 eGFR AA >60 Invalid Interpretation Code [facility] Comment on above: Performed By: #### 1 2570492, [id number], 8528891 ####[facility] (DEFAULT)[address] [place] [address] 53747 Albumin [Mass/Vol] 2.4 g/dL Low 3.5-5.0 [facility] Comment on above: Performed By: #### 1 3458147, 0584518762, 7650748 ####[facility] (DEFAULT)[address] [place] [address] Albumin/Globulin [Mass ratio] 0.6 {ratio} Low 1.4-2.6 [facility] Comment on above: Performed By: #### 1 [id number], [id number], [id number] ####[facility] (DEFAULT)[address] [place] [address] 07929 Alk Phos 105 IU/L High 32-91 [facility] Comment on above: Performed By: #### 1 [id number], [id number], [id number] ####[facility] (DEFAULT)[address] [place] [address] [id number] ALT [Catalytic activity/Vol] 19.0 U/L Normal 14.0-54.0 [facility] Comment on above: Performed By: #### 1 [id number], [id number], [id number] ####[facility] (DEFAULT)[address] [place] [address] 91683 Anion gap [Moles/Vol] 14.7 mmol/L Normal 5.0-19.0 [facility] Comment on above: Performed By: #### 1 [id number], [id number], [id number] ####[facility] (DEFAULT)[address] [place] [address] 02421 AST [Catalytic activity/Vol] 17 U/L Normal 15-41 [facility] Comment on above: Performed By: #### 1 5858513, [id number], 1741732 ####[facility] (DEFAULT)[address] [place] [address] 95547 Bili Total 0.6 mg/dL Normal 0.3-1.2 [facility] Comment on above: Performed By: #### 1 9066666, 4798986171, 3947803 ####[facility] (DEFAULT)[address] [place] [address] 87448 Calcium [Mass/Vol] 8.8 mg/dL Low 8.9-10.3 [facility] Comment on above: Performed By: #### 1 8929248, 0983018989, 4710337 ####[facility] (DEFAULT)[address] [place] [address] 25987 Chloride [Moles/Vol] 103 mmol/L Normal 101-111 [facility] Comment on above: Performed By: #### 1 9554497, 1390034770, 3416692 ####[facility] (DEFAULT)[address] [place] [address] 53258 CO2 [Moles/Vol] 25 mmol/L Normal 21-32 [facility] Comment on above: Performed By: #### 1 5153471, [id number], 4841902 ####[facility] (DEFAULT)[address] [place] [address] 62288 Creatinine [Mass/Vol] 0.94 mg/dL Normal 0.60-1.30 [facility] Comment on above: Performed By: #### 1 4429221, 8565912266, 4371401 ####[facility] (DEFAULT)[address] [place] [address] 61698 Globulin (S) [Mass/Vol] 3.5 g/dL Normal 1.5-4.3 [facility] Comment on above: Performed By: #### 1 5701719, 7240650959, 6635823 ####[facility] (DEFAULT)[address] [place] [address] 29138 Glucose [Mass/Vol] 161.0 mg/dL High 74.0-118.0 [facility] Comment on above: Performed By: #### 1 5752802, [id number], 0991056 ####[facility] (DEFAULT)[address] [place] [address] 12288 Osmolality 286 mOsm/L Invalid Interpretation Code [facility] Comment on above: Performed By: #### 1 5245169, [id number], 5969313 ####[facility] (DEFAULT)[address] [place] [address] 29273 Potassium [Moles/Vol] 4.7 mmol/L Normal 3.6-5.1 [facility] Comment on above: Performed By: #### 1 2139409, 7549696790, 5262938 ####[facility] (DEFAULT)[address] [place] [address] 71690 Protein [Mass/Vol] 5.9 g/dL Low 6.5-8.1 [facility] Comment on above: Performed By: #### 1 4353601, 8110415781, 2975433 ####[facility] (DEFAULT)[address] [place] [address] 29268 Sodium [Moles/Vol] 138.0 mmol/L Normal 136.0-144.0 [facility] Comment on above: Performed By: #### 1 2067753, 2392012520, 6990923 ####[facility] (DEFAULT)[address] [place] [address] Urea nitrogen [Mass/Vol] 32 mg/dL High 8-26 [facility] Comment on above: Performed By: #### 1 6331521, 6074107306, 2688848 ####[facility] (DEFAULT)[address] [place] [address] Urea nitrogen/Creatinine [Mass ratio] 34.0 mg/mg High 4.6-16.2 [facility] Comment on above: Performed By: #### 1 4824165, 1612606488, 2720364 ####[facility] (DEFAULT)[address] [place] [address] CRPon 10-12-2023 CRP 7.2 mg/dL High <=0.5 [facility] Comment on above: Performed By: #### 2 995843, 3377762 #### [facility] (DEFAULT) [address] [place] [address] Consent Formson 10-12-2023 Consent Forms [id number] Normal [facility] Nutrition Noteon 10-12-2023 Nutrition Note Pt admitted w/ Rt kn ee pain, recent washout. CT scan noting septic arthritis, IV atb initiated. Pt placed on a Regular diet, so far eating 100%. 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 No chewing/swallowing problems identified. Labs reviewed [...] taking extra protein at home. To follow. [facility] Pharmacy Noteon 10-12-2023 Pharmacy Note This is [...] [Verified on: 10/12/2023 10:24 EST] Andrés Grover [facility] Procalcitoninon 10-12-2023 Procalcitonin 0.109 ng/mL Low 0.500-1.000 [facility] Comment on above: Performed By: #### 7 [id number] #### [facility] (DEFAULT) [address] [place] [address] 50076 Sed Rateon 10-12-2023 Sed Rate 74 mm/hr High 0-20 [facility] Comment on above: Performed By: #### 2 641575, 9444213 #### [facility] (DEFAULT) [address] [place] [address] 73123 US Echocardiogram Completeon 10-12-2023 US Echocardiogram Complete [...] Junction2.89 cm F: 2.3 - 2.9 LV Xewq816.22 g LVOT Diameter 2.09 cm IVC1.25 (<= [...] Single Plane 4 CH 25.69 mLBiplane LA Mshykc53.33 mL Single Plane 2 CH67.19 mLLA ESV Index29.65 mL/m2 Right Atrium Area Systole RA Systolic Area A4C9.10 cm2RA Systolic Vol A4C19.30 mL Aortic Valve AoV Peak Velocity1.30 m/sLVOT Peak Velocity1.04 m/s AO Mean Velocity0.86 m/sLVOT Mean Velocity0.61 m/s AO Peak PG6.80 mmHgLVOT Peak PG4.31 mmHg AO Mean PG3.48 mmHgLVOT Mean PG1.86 mmHg AO V2 VTI22.79 cmLVOT V1 VTI20.10 cm ESTUARDO (Vmax)2.73 gs8CZBT Area 3.43 cm2 ESTUARDO (VTI)3.03 cm2SV (LVOT) 68.96 mL Indexed ESTUARDO (VTI)1.85 cm2/m2AI Toole 2.40 m/s2 AI JXE373.11 ms Mitral Valve MV Max Azjpjfjs520.09 m/sMV PHT58.48 ms MV E Max Velocity0.55 m/sMVA (PHT)3.76 cm2 MV A Max Velocity0.67 m/sMR ZHW037.58 cm E/A Ratio0.8MR Peak Velocity5.74 m/s MV Decel. Svzl643.67 ms TDI Med e' Velocity5.08 cm/sMV E / Medial e' 10.72 Lat e' Velocity6.45 cm/sMV E / Lateral e' 8.45 TV S'16.13 cm/s Pulmonary Valve PV Peak Velocity0.78 m/sPV Peak PG2.43 mmHg VT End Diastolic Carlos.62.56 m/s PV Mean PG1.46 mmHg Tricuspid Valve TR Peak Velocity3.10 m/sRAP Estimate3.00 mmHg TR Peak PG38.55 icMiOCST61.55 mmHg Final Signed (Electronic Signature): Marquis Pulido MD 10/12/23 3:45 pm Technologist: ERA [facility] XR Chest 1 View Frontalon XR Chest [...] MD 10/12/23 9:27 am Technologist: SANGEETA SIMPSON [facility] .Auto Diff 10-11-2023 Auto [place] % 7 % Frierson 11-16 [facility] Comment on above: Performed By: #### 2 934889, [id number], 72355607, 6334142829, 7106917810, 9307154772, 2765138584, 3814520 ####[facility] (DEFAULT)[address] Abs# 0.1 x10 Normal 0.0-0.2 [facility] Comment on above: Performed By: #### 2 913698, 0790067808, 29574878, 7454652817, 1998239741, 2611321702, 5704613321, 0648151 ####[facility] (DEFAULT)[address] [place] [address] 37961 Basophils/100 WBC (Bld) 0.4 % Normal 0.2-2.0 [facility] Comment on above: Performed By: #### 2 156282, 4218041691, 57977120, 3213599342, 6555741193, 7054412486, 0513299874, 4390592 ####[facility] (DEFAULT)[address] [place] [address] 77123 Eos Abs# 0.0 x10 Normal 0.0-0.4 [facility] Comment on above: Performed By: #### 2 175314, 6587221845, 91735920, 4672504427, 6917365852, 8664873011, 4781938369, 8926189 ####[facility] (DEFAULT)[address] [place] [address] 66278 Eosinophils/100 WBC (Bld) 0.2 % Low 0.9-4.0 [facility] Comment on above: Performed By: #### 2 678372, 5202597246, 00612651, 3591075656, 0665207767, 5778463005, 0640420645, 3652323 ####[facility] (DEFAULT)[address] [place] [address] 59797 Lymph Abs# 1.2 x10 Low 1.3-2.9 [facility] Comment on above: Performed By: #### 2 286839, 3733392687, 31494858, 8928790473, 7011975402, 8973937214, 0155556300, 2332147 ####[facility] (DEFAULT)[address] [place] [address] 57180 Lymphocytes/100 WBC (Bld) 8 % Low 14-48 [facility] Comment on above: Performed By: #### 2 930826, 4425052043, 82132534, 4851690033, 7261515201, 3077366582, 9007717457, 3486350 ####[facility] (DEFAULT)[address] [place] [address] [place] Abs# 1.1 x10 High 0.0-0.8 [facility] Comment on above: Performed By: #### 2 190549, 1817231305, 78784359, 6616498092, 0409978708, 4953025450, 7924093850, 7317360 ####[facility] (DEFAULT)[address] [place] [address] Neut Abs# 13.6 x10 High 1.5-9.2 [facility] Comment on above: Performed By: #### 2 675323, 7477785755, 00866650, 1576742504, 3661991193, 8574640903, 2017528545, 2462116 ####[facility] (DEFAULT)[address] [place] [address] Neutrophils/100 WBC (Bld) 85 % Normal 44-88 [facility] Comment on above: Performed By: #### 2 725893, 0551856521, 43642350, 0750109950, 0369219430, 3533960977, 8581717298, 0450165 ####[facility] (DEFAULT)[address] [place] [address] Anesthesia Noteon 10-11-2023 Anesthesia Note Patient: ALICIA [...] on: 10/11/2023 13:00 EST] Sheryl Dennis DO [facility] Anesthesia Note Patient: ALICIA NGUYỄN Age: 83 [...] All Problems HTN (hypertension) / SNOMED CT 2030265546 / Confirmed Hypothyroidism / SNOMED CT 45831988 / Confirmed Histories Family History: No family history items have been selected or recorded. Procedure history: Appendectomy (741750501). History of total hysterectomy (1346816136). Knee (038633902). Comments: 10/11/2023 7:23 Radha Siddiqui RN total left Plantar fasciitis (339395804). Comments: 10/11/2023 7:26 Radha Siddiqui RN left Cholecystectomy (95699934). Metatarsal (53666203). Comments: 10/11/2023 7:25 Radha Siddiqui RN right [...] Charted Heart Rate Peripheral 97 bpm (OCT 11 07:18) Resp Rate 18 br/min (OCT 11:18) SBP H 144 mmHg (OCT 11:18) DBP [...] Oriented. Review / Management Laboratory Results Plan [employer]#(ASA) physical status classification: Class [...] on: 10/11/2023 09:23 EST] Sheryl Dennis DO [facility] BF Cell Cnton 10-11-2023 Appear BF Cloudy [facility] Comment on above: Order Comment: right knee fluid Performed By: #### 6 292188 #### [facility] (DEFAULT) [address] [place] [address] Cell Cnt BF Type Synovial Fl [facility] Comment on above: Order Comment: right knee fluid Performed By: #### 6 606663 #### [facility] (DEFAULT) [address] [place] [address] 19388 Color BF Red [facility] Comment on above: Order Comment: right knee fluid Performed By: #### 6 294400 #### [facility] (DEFAULT) [address] [place] [address] 05518 RBC BF 115599 Invalid Interpretation Code [facility] Comment on above: Order Comment: right knee fluid Performed By: #### 6 146372 #### [facility] (DEFAULT) [address] [place] [address] 80761 [place] [address] Invalid Interpretation Code [facility] Comment on above: Order Comment: right knee fluid Performed By: #### 6 270392 #### [facility] (DEFAULT) [address] [place] [address] 73008 BMP Standardon 10-11-2023 Breakpoint Chem Normal [facility] Comment on above: Performed By: #### 2 320941, 0523618390, 51991808, 1300611951, 8805613619, 5296867332, 8408290394, 2981030 ####[facility] (DEFAULT)[address] [place] [address] 62075 eGFR Non AA 57 mL/min/1.73m2 Invalid Interpretation Code [facility] Comment on above: Performed By: #### 2 606316, 9144887798, 56595636, 9253512725, 1895646298, 0780959120, 3622454123, 5586786 ####[facility] (DEFAULT)[address] [place] [address] 41730 eGFR AA >60 Invalid Interpretation Code [facility] Comment on above: Performed By: #### 2 707834, 6412744121, 99760275, 2093922051, 2606650541, 7683932672, 9181193448, 8892640 ####[facility] (DEFAULT)[address] [place] [address] 55031 Anion gap [Moles/Vol] 13.6 mmol/L Normal 5.0-19.0 [facility] Comment on above: Performed By: #### 2 503473, 4215036132, 93682161, 7385577643, 6308872352, 4351209252, 2618020330, 7982876 ####[facility] (DEFAULT)[address] [place] [address] 96742 Calcium [Mass/Vol] 9.6 mg/dL Normal 8.9-10.3 [facility] Comment on above: Performed By: #### 2 014330, 1362053230, 78824028, 4980555718, 0569176747, 2472763912, 0845270120, 3651263 ####[facility] (DEFAULT)[address] [place] [address] 84481 Chloride [Moles/Vol] 102 mmol/L Normal 101-111 [facility] Comment on above: Performed By: #### 2 980804, 1866672151, 84295347, 1161352847, 3782632401, 1390653200, 3213769511, 6909243 ####[facility] (DEFAULT)[address] [place] [address] 05497 CO2 [Moles/Vol] 25 mmol/L Normal 21-32 [facility] Comment on above: Performed By: #### 2 412324, 4319600722, 98696490, 4094961448, 1101244865, 2056793605, 5713235353, 7901635 ####[facility] (DEFAULT)[address] [place] [address] 86148 Creatinine [Mass/Vol] 0.93 mg/dL Normal 0.60-1.30 [facility] Comment on above: Performed By: #### 2 096145, 1624414862, 62752499, 1972155839, 0519378326, 2150233413, 4263091315, 5661770 ####[facility] (DEFAULT)[address] [place] [address] 61964 Glucose [Mass/Vol] 114.0 mg/dL Normal 74.0-118.0 [facility] Comment on above: Performed By: #### 2 969596, 4523317478, 14178717, 4304693768, 0778100640, 7440216074, 6641543267, 1035441 ####[facility] (DEFAULT)[address] [place] [address] 10916 Osmolality 279 mOsm/L Invalid Interpretation Code [facility] Comment on above: Performed By: #### 2 768605, 6997220021, 17781775, 2214016171, 1363161830, 5107738838, 8029906507, 3970905 ####[facility] (DEFAULT)[address] [place] [address] 38509 Potassium [Moles/Vol] 4.6 mmol/L Normal 3.6-5.1 [facility] Comment on above: Performed By: #### 2 569610, 2265983149, 71055057, 4218849715, 4678690884, 4409586765, 9591352542, 0303241 ####[facility] (DEFAULT)[address] [place] [address] 60164 Sodium [Moles/Vol] 136.0 mmol/L Normal 136.0-144.0 [facility] Comment on above: Performed By: #### 2 800738, 3651528407, 02250657, 0486788776, 5783505772, 0580186225, 3387769852, 2946344 ####[facility] (DEFAULT)[address] [place] [address] 02376 Urea nitrogen [Mass/Vol] 30 mg/dL High 8-26 [facility] Comment on above: Performed By: #### 2 860883, 2655457897, 59002650, 0593923329, 2568047957, 2948141159, 6610882417, 5599404 ####[facility] (DEFAULT)[address] [place] [address] 71208 Urea nitrogen/Creatinine [Mass ratio] 32.2 mg/mg High 4.6-16.2 [facility] Comment on above: Performed By: #### 2 217041, 2608685315, 38811359, 8285348684, 9793556448, 8947446515, 7234458073, 8491998 ####[facility] (DEFAULT)[address] [place] [address] 19733 Body Fluid Diffon 10-11-2023 BF Bands % 2 Invalid Interpretation Code [facility] Comment on above: Order Comment: Right knee fluidVerbal order per Kelly Long Performed By: #### 2 600909933 ####[facility] (DEFAULT)[address] [place] [address] 43564 BF Baso % 0 Invalid Interpretation Code [facility] Comment on above: Order Comment: Right knee fluidVerbal order per Kelly Long Performed By: #### 2 443063131 ####[facility] (DEFAULT)[address] [place] [address] 67202 BF Eos % 0 Invalid Interpretation Code [facility] Comment on above: Order Comment: Right knee fluidVerbal order per Kelly Long Performed By: #### 2 210094431 ####[facility] (DEFAULT)[address] [place] [address] BF Lymph % 5 Invalid Interpretation Code [facility] Comment on above: Order Comment: Right knee fluidVerbal order per Kelly Long Performed By: #### 2 [id number] ####[facility] (DEFAULT)[address] [place] [address] BF [place] % 0 Invalid Interpretation Code [facility] Comment on above: Order Comment: Right knee fluidVerbal order per Kelly Long Performed By: #### 2 240503560 ####[facility] (DEFAULT)[address] [place] [address] BF Segs % 93 Invalid Interpretation Code [facility] Comment on above: Order Comment: Right knee fluidVerbal order per Kelly Long Performed By: #### 2 [id number] ####[facility] (DEFAULT)[address] [place] [address] CBC w/ Auto Diffon 3 Erythrocyte distribution width (RBC) [Ratio] 15.3 % High 11.5-15.0 [facility] Comment on above: Performed By: #### 2 963892, 9846267853, 10227912, 8484310445, 3759199151, 6621656478, 0945291488, 5454994 ####[facility] (DEFAULT)[address] [place] [address] Hematocrit (Bld) [Volume fraction] 36.1 % Normal 33.7-40.4 [facility] Comment on above: Performed By: #### 2 715304, 9798827865, 69612133, 0027391607, 6789374458, 3269012557, 5982200307, 5712669 ####[facility] (DEFAULT)[address] [place] [address] Hemoglobin (Bld) [Mass/Vol] 11.8 g/dL Normal 11.3-15.9 [facility] Comment on above: Performed By: #### 2 172919, 3315340541, 17794087, 7372072674, 3623400991, 4328758309, 7729622660, 0358190 ####[facility] (DEFAULT)[address] [place] [address] Man Diff? Auto Invalid Interpretation Code [facility] Comment on above: Performed By: #### 2 210405, 7862844107, 36339579, 5945486890, 1304606356, 7357444101, 3886230731, 7254455 ####[facility] (DEFAULT)[address] [place] [address] MCH (RBC) [Entitic mass] 29 pg Normal 24-34 [facility] Comment on above: Performed By: #### 2 257409, 0546794227, 15644533, 8905181648, 5897241681, 0795913141, 1087890615, 8310396 ####[facility] (DEFAULT)[address] [place] [address] 57149 MCHC (RBC) [Mass/Vol] 33 g/dL Normal 26-37 [facility] Comment on above: Performed By: #### 2 451434, 3327516676, 32799745, 4871795840, 8234884907, 9752980236, 0763223636, 9370622 ####[facility] (DEFAULT)[address] [place] [address] 51601 MCV (RBC) [Entitic vol] 89 fL Normal 81-100 [facility] Comment on above: Performed By: #### 2 494716, 9294575073, 02495920, 0712353162, 5993864862, 3569302258, 5608677316, 5474300 ####[facility] (DEFAULT)[address] [place] [address] 48220 Platelet 492 x10 High 138-427 [facility] Comment on above: Performed By: #### 2 885956, 3429743127, 36196623, 0596426421, 5107437506, 7845600140, 5692510474, 6155169 ####[facility] (DEFAULT)[address] [place] [address] 11670 Platelet mean volume (Bld) [Entitic vol] 6.2 fL Low 6.3-10.2 [facility] Comment on above: Performed By: #### 2 055476, 0604124383, 05670372, 0850038848, 4372252565, 3094033872, 0970963008, 8250548 ####[facility] (DEFAULT)[address] [place] [address] 30834 RBC 4.05 x10 Normal 3.70-5.30 [facility] Comment on above: Performed By: #### 2 574401, 3615550939, 40443842, 9138529269, 2011473119, 2205182071, 6440611726, 0628738 ####[facility] (DEFAULT)[address] [place] [address] 40209 WBC 16.0 x10 High 3.5-10.5 [facility] Comment on above: Result Comment: Slid e Reviewed Performed By: #### 2 842603, 3599823535, 48554059, 3065518398, 2821861692, 6694436703, 6105988689, 0605173 ####[facility] (DEFAULT)[address] [place] [address] 73946 CRPon 10-11-2023 CRP 6.1 mg/dL High <=0.5 [facility] Comment on above: Performed By: #### 2 808300 ####[facility] (DEFAULT)[address] [place] [address] Lower Extremity w/ Contra st Righton [...] MD 10/11/23 4:31 pm Technologist: Jeanette LUKE [facility] Extra SSTon 10-11-2023 Tube Collected Yes Invalid Interpretation Code [facility] Comment on above: Performed By: #### 2 093545, 0665508052, 08707146, 5208427296, 1226792114, 3421052743, 1985260827, 2332474 ####[facility] (DEFAULT)[address] [place] [address] MAGR Intraoperative Recordon 10-11-2023 MAGR Intraoperative Record MAGR Intra-Op Record Summary Primary Physician: JOB AGUILAR DO Finalized Date/Time: 10/11/23 14:40:54 Pt. Name: GOPIALICIA/Sex: 1940 FEMALE Med Rec #: [id number] Physician: JOB AGUILAR DO Financial #: [id number] Pt. Type: I Room/Bed: [facility]/1 Admit/Disch: 10/11/23 06:57:39 - Institution: Case [...] Role Performed Surgeon - Primary Anesthesiologist of [employer]chatron[employer] Engineer Record Time In 10/11/23 11:40:00 10/11/23 11:40:00 10/11/23 11:40:00 Time Out 10/11/23 12:48:00 10/11/23 12:53:00 10/11/23 12:53:00 Procedure Arthroscopy Knee(Right) Arthroscopy Knee(Right) Arthroscopy Knee(Right) Last Modified By: Sandra Shepard RN, Barbara RN Long, Barbara RN 10/11/23 12:55:35 10/11/23 12:55:35 10/11/23 12:55:35 Entry 4 Entry 5 Case Attendee Gloria Saldaña CST, CST, Lauren M CSFA CSFA Role Performed Scrub Personnel French Professor Time In 10/11/23 11:40:00 10/11/23 11:40:00 Time [...] Sheryl Dennis DO, Long, Barbara RN, Piotr SALT CUTTER, Gloria MARTINEZ CSFA, Rina Muñoz CSFA Last [...] Met (O.80) Ye (more content not included)... [facility] PACU Record MAGR PACU Record [facility] Primary Physician: JOB AGUILAR DO Finalized Date/Time: 10/11/23 13:56:49 Pt. Name: RADHABREANAJARRETTALICIA/Sex: 1940 FEMALE Med Rec #: [id number] Physician: JOB AGUILAR DO Financial #: [id number] Pt. Type: D Room/Bed: [facility]/1 Admit/Disch: 10/11/23 06:57:39 - Institution: PACU Case Times MAGR Entry 1 In PACU I 10/11/23 12:55:00 Discharge from PACU 10/11/23 13:40:00 I Last Modified By: Radha Seo RN 10/11/23 13:56:45 Finalized By: Radha Seo RN Document Signatures Signed By: Radha Seo RN 10/11/23 13:56 [facility] 1 12-12-2022 [facility] Pre[facility] Record [facility] Pre-Op Record Summary Primary Physician: JOB AGUILAR DO Finalized Date/Time: 10/11/23 12:17:03 Pt. Name: RADHABREANAJARRETTALICIA/Sex: 1940 FEMALE Med Rec #: [id number] Physician: JOB AGUILAR DO Financial #: [id number] Pt. Type: D Room/Bed: / Admit/Disch: 10/11/23 [...] Signed By: Sandra Shepard RN 10/11/23 12:17 [facility] Pharmacy Noteon 10-11-2023 Pharmacy Note The following [...] Signed on: 10/13/2023 09:39 EST] Jamal Butler [facility] Sed Rateon 10-11-2023 Sed Rate 80 mm/hr High 0-20 [facility] Comment on above: Performed By: #### 2 702004, 5630976361, 89438325, 4797802237, 4266017552, 6316967360, 6366077412, 7442279 ####[facility] (DEFAULT)[address] [place] [address] CREATININEon 04-04-2023 Creatinine [Mass/Vol] 1.25 mg/dL Critically high 0.55-1.02 [facility] Comment on above: Performed By: #### C HEIDI #### [facility] [place] [facility] [address] [address] [address] Lolita Alvarado EGFR-AF SURINAMESE 49 mL/min/1.73m2 Critically low >=60 [facility] Comment on above: Performed By: #### C HEIDI #### [facility] [place] [facility] [address] [address] [address] Lolita Alvarado EGFR-NON AF SURINAMESE 41 mL/min/1.73m2 Critically low >=60 [facility] Comment on above: Performed By: #### C HEIDI #### [facility] [place] [facility] [address] [address] [address] CHEST W CONon [...] by: RIGO WHITTAKER Date: 2023-04-04 16:18 Normal [facility] CT CHEST W CONon 12-26-2022 CT CHEST [...] by: RIGO WHITTAKER Date: 2022-12-26 09:16 Normal [facility] CREATININEon 12-23-2022 Creatinine [Mass/Vol] 0.85 mg/dL Normal 0.55-1.02 [facility] Comment on above: Performed By: #### C HEIDI #### [facility] [place] [facility] [address] [place] [address] Dr. Lolita Alvarado EGFR-AF SURINAMESE >60 Normal >=60 [facility] Comment on above: Performed By: #### C HEIDI #### [facility] [place] [facility] [address] [place], [place] [address] Dr. Lolita Alvarado EGFR-NON AF SURINAMESE >60 Normal >=60 [facility] [place] Comment on above: Performed By: #### C HEIDI #### [facility] [place] [facility] [address] [place], [place] [address] Dr. Lolita Alvarado Glucose Glucometer (BldC) [M ass/Vol]Ordered By: Santiago Otto on 11-01-2022 Glucose [Mass/Vol] 97 mg/dL [facility] Comment on above: Random Glucose Refer ence Range is dependent on time and content of last meal. Glucose of more than 200 mg/dL in a nonstressed, ambulatory subject supports the diagnosis of Diabetes Mellitus. Glucose Poct Glucom[place]on 1 01-02-2022 Glucose [Mass/Vol] 97 mg/dL Normal [facility] Comment on above: Result Comment: [place] om Glucose Reference Range is dependent on time and content of last meal. Glucose of more than 200 mg/dL in a nonstressed, ambulatory subject supports the diagnosis of Diabetes Mellitus. PERFORMED BY: [place] [address] PATHOLOGIST [employer] INST[employer]ER NEW MEDEIROS M.D. Performed By: #### G LULS #### Point of Care testing , PET tumor init tx strat sb-m ton 11-01-2022 PET tumor init tx strat sb-mt [facility] [place] [address] Nuclear Medicine Report Signed Patient: Alicia Nguyễn MR#: [id number] : 1940 Acct:[id number] Age/Sex: 82 / F ADM Date: 11/01/22 Loc: Room: Type[facility] Attending Dr: Santiago Otto MD Copies to: [...] M.D.11/01/2022 1:32 PM Dictation Location: [place] [address] Transcribed By: [place] 11/01/22 133 Dictated By: Candi Leigh MD 11/01/22 1300 Signed By: 11/01/22 133 [facility] CT CHEST W CONon 10-24-2022 [...] RIGO WHITTAKER Date: 2022-10-23 22:21 Normal [facility] CREATININEon 10-23-2022 Creatinine [Mass/Vol] 1.08 mg/dL Critically high 0.55-1.02 [facility] Comment on above: Performed By: #### C HEIDI #### [facility] [address] [address] [address] Lolita Alvarado EGFR-AF SURINAMESE 59 mL/min/1.73m2 Critically low >=60 [facility] Comment on above: Performed By: #### C HEIDI #### [facility] [address] [address] [address] Lolita Alvarado EGFR-NON AF SURINAMESE 48 mL/min/1.73m2 Critically low >=60 [facility] Comment on above: Performed By: #### C HEIDI #### [facility] [address] [address] [address] TSPINE WO CONon [...] spine. 3. No acute abnormality. Normal [facility] MRI [facility] WO CONon 09-13-20 MRI [facility] WO CON EXAMINATION: MRI [facility] WO CON HISTORY: Lumbar radiculopathy COMPARISON: No [...] by: SHERYL SRINIVASAN Date: 2022-09-13 08:21 Normal [facility] US NOLBERTO DOP LEG RTon 08-10-20 US [...] BRAD GONZALEZ Date: 2022-08-10 15:05 Normal [facility] CBC AUTO DIFFon 08-02-2022 BASO # 0.0 103/ul Normal 0.0-0.1 [facility] Comment on above: Performed By: #### C BC #### [facility] [address] [place] [address] Dr. Lolita Alvarado Basophils/100 WBC (Bld) 0.3 % Normal 0.2-2.0 [facility] Comment on above: Performed By: #### C BC #### [facility] [address] [place] [address] Dr. Lolita Alvarado EO # 0.0 103/ul Normal 0.0-0.7 [facility] Comment on above: Performed By: #### C BC #### [facility] [address] [place] [address] Dr. Lolita Alvarado Eosinophils/100 WBC (Bld) 0.3 % Critically low 0.9-7.0 [facility] Comment on above: Performed By: #### C BC #### [facility] [address] [place] [address] Dr. Lolita Alvarado Erythrocyte distribution width (RBC) [Ratio] 13.3 % Normal 11.0-15.0 [facility] Comment on above: Performed By: #### C BC #### [facility] [address] [place] [address] Dr. Lolita Alvarado Hematocrit (Bld) [Volume fraction] 34.6 % Critically low 36.0-48.0 [facility] Comment on above: Performed By: #### C BC #### [facility] [address] [place] [address] Dr. Lolita Alvarado Hemoglobin (Bld) [Mass/Vol] 11.4 g/dL Critically low 12.0-16.0 [facility] Comment on above: Performed By: #### C BC #### [facility] [address] [place] [address] Dr. Lolita Alvarado IG # 0.04 10e3/ul Critically high 0.00-0.03 [facility] Comment on above: Performed By: #### C BC #### [facility] [address] [place] [address] Dr. Lolita Alvarado IG % 1.0 % Critically high 0.0-0.5 [facility] Comment on above: Performed By: #### C BC #### [facility] [address] [place] [address] Dr. Lolita Alvarado LYMPH # 1.2 103/ul Normal 1.2-3.8 [facility] Comment on above: Performed By: #### C BC #### [facility] [address] [place] [address] Dr. Lolita Alvarado Lymphocytes/100 WBC (Bld) 30.9 % Normal 20.5-60.0 [facility] Comment on above: Performed By: #### C BC #### [facility] [address] [place] [address] Dr. Lolita Alvarado MANUAL DIFF REQ NO Normal [facility] Comment on above: Performed By: #### C BC #### [facility] [address] [place] [address] Dr. Lolita Alvarado MCH (RBC) [Entitic mass] 31.0 pg Normal 26.7-34.0 [facility] Comment on above: Performed By: #### C BC #### [facility] [address] [place] [address] Dr. Lolita Alvarado MCHC (RBC) [Mass/Vol] 32.9 g/dL Normal 29.9-35.2 [facility] Comment on above: Performed By: #### C BC #### [facility] [address] [place] [address] Dr. Lolita Alvarado MCV (RBC) [Entitic vol] 94.0 fL Normal 81.0-99.0 [facility] Comment on above: Performed By: #### C BC #### [facility] [address] [place] [address] Dr. Lolita Alvarado MONO # 0.4 103/ul Normal 0.3-0.8 [facility] Comment on above: Performed By: #### C BC #### [facility] [address] [place] [address] Dr. Lolita Alvarado Monocytes/100 WBC (Bld) 10.6 % Normal 1.7-12.0 [facility] Comment on above: Performed By: #### C BC #### [facility] [address] [address] [address] Lolita Alvarado NEUT # 2.2 103/ul Normal 1.4-6.5 [facility] Comment on above: Performed By: #### C BC #### [facility] [address] [address] [address] Lolita Alvarado Neutrophils/100 WBC (Bld) 56.9 % Normal 43.0-75.0 [facility] Comment on above: Performed By: #### C BC #### [facility] [address] [address] [address] Lolita Alvarado Platelet mean volume (Bld) [Entitic vol] 8.1 fL Critically low 9.5-13.5 [facility] Comment on above: Performed By: #### C BC #### [facility] [address] [address] [address] Lolita Alvarado PLT 226 103/ul Normal 150-450 [facility] Comment on above: Performed By: #### C BC #### [facility] [address] [address] [address] Lolita Alvarado RBC 3.68 106/ul Critically low 4.20-5.40 [facility] Comment on above: Performed By: #### C BC #### [facility] [address] [place] [address] Dr. Lolita Alvarado WBC 3.9 103/ul Critically low 4.0-11.0 [facility] Comment on above: Performed By: #### C BC #### [facility] [address] [address] [address] Lolita Alvarado [facility]on 06-07 SARS-CoV-2 (COVID-19) RNA EDWIN+probe Ql (Unsp spec) Detected Critically abnormal NOT DETECTED [facility] Comment on above: Result Comment: This test is not yet approved or cleared by the [place] FDA. When there are no FDA-approved or cleared tests available, and other criteria are met, FDA can make tests available under an emergency access mechanism called an Emergency Use Authorization (EUA). The EUA for this test is supported by the Chief [employer] of Health and Human Service's (HHS's) declaration [...] used). Performed By: #### C BC #### [facility] [address] [place] [address] Dr. Lolita Alvarado CBC AUTO DIFFon 06-02-2022 BASO # 0.0 103/ul Normal 0.0-0.1 [facility] Comment on above: Performed By: #### C BC #### [facility] [address] [place] [address] Dr. Lolita Alvarado Basophils/100 WBC (Bld) 0.4 % Normal 0.2-2.0 [facility] Comment on above: Performed By: #### C BC #### [facility] [address] [place] [address] Dr. Lolita Alvarado EO # 0.0 103/ul Normal 0.0-0.7 [facility] Comment on above: Performed By: #### C BC #### [facility] [address] [place] [address] Dr. Lolita Alvarado Eosinophils/100 WBC (Bld) 0.2 % Critically low 0.9-7.0 [facility] Comment on above: Performed By: #### C BC #### [facility] [address] [place] [address] Dr. Lolita Alvarado Erythrocyte distribution width (RBC) [Ratio] 12.8 % Normal 11.0-15.0 [facility] Comment on above: Performed By: #### C BC #### [facility] [address] [place] [address] Dr. Lolita Alvarado Hematocrit (Bld) [Volume fraction] 30.1 % Critically low 36.0-48.0 [facility] Comment on above: Performed By: #### C BC #### [facility] [address] [place] [address] Dr. Lolita Alvarado Hemoglobin (Bld) [Mass/Vol] 10.3 g/dL Critically low 12.0-16.0 [facility] Comment on above: Performed By: #### C BC #### [facility] [address] [place] [address] Dr. Lolita Alvarado IG # 0.02 10e3/ul Normal 0.00-0.03 [facility] Comment on above: Performed By: #### C BC #### [facility] [address] [place] [address] Dr. Lolita Alvarado IG % 0.4 % Normal 0.0-0.5 [facility] Comment on above: Performed By: #### C BC #### [facility] [address] [place] [address] Dr. Lolita Alvarado LYMPH # 0.7 103/ul Critically low 1.2-3.8 [facility] Comment on above: Performed By: #### C BC #### [facility] [address] [place] [address] Dr. Lolita Alvarado Lymphocytes/100 WBC (Bld) 14.9 % Critically low 20.5-60.0 [facility] Comment on above: Performed By: #### C BC #### [facility] [address] [place] [address] Dr. Lolita Alvarado MANUAL DIFF REQ NO Normal [facility] Comment on above: Performed By: #### C BC #### [facility] [address] [place] [address] Dr. Lolita Alvarado MCH (RBC) [Entitic mass] 33.6 pg Normal 26.7-34.0 [facility] Comment on above: Performed By: #### C BC #### [facility] [address] [place] [address] Dr. Lolita Alvarado MCHC (RBC) [Mass/Vol] 34.2 g/dL Normal 29.9-35.2 [facility] Comment on above: Performed By: #### C BC #### [facility] [address] [address] [address] Lolita Alvarado MCV (RBC) [Entitic vol] 98.0 fL Normal 81.0-99.0 [facility] Comment on above: Performed By: #### C BC #### [facility] [address] [address] [address] Lolita Alvarado MONO # 0.4 103/ul Normal 0.3-0.8 [facility] Comment on above: Performed By: #### C BC #### [facility] [address] [place] [address] Dr. Lolita Alvarado Monocytes/100 WBC (Bld) 9.0 % Normal 1.7-12.0 [facility] Comment on above: Performed By: #### C BC #### [facility] [address] [place] [address] Dr. Lolita Alvarado NEUT # 3.4 103/ul Normal 1.4-6.5 [facility] Comment on above: Performed By: #### C BC #### [facility] [address] [place] [address] Dr. Lolita Alvarado Neutrophils/100 WBC (Bld) 75.1 % Critically high 43.0-75.0 [facility] Comment on above: Performed By: #### C BC #### [facility] [address] [place] [address] Dr. Lolita Alvarado Platelet mean volume (Bld) [Entitic vol] 8.5 fL Critically low 9.5-13.5 [facility] Comment on above: Performed By: #### C BC #### [facility] [address] [place] [address] Dr. Lolita Alvarado PLT 229 103/ul Normal 150-450 [facility] Comment on above: Performed By: #### C BC #### [facility] [address] [place] [address] Dr. Lolita Alvarado RBC 3.07 106/ul Critically low 4.20-5.40 [facility] Comment on above: Performed By: #### C BC #### [facility] [address] [place] [address] Dr. Lolita Alvarado WBC 4.6 103/ul Normal 4.0-11.0 [facility] Comment on above: Performed By: #### C BC #### [facility] [address] [place] [address] Dr. Lolita Alvarado CBC AUTO DIFFon 06-01-2022 BASO # 0.0 103/ul Normal 0.0-0.1 [facility] Comment on above: Performed By: #### C BC #### [facility] [address] [place] [address] Dr. Lolita Alvaardo Basophils/100 WBC (Bld) 0.7 % Normal 0.2-2.0 [facility] Comment on above: Performed By: #### C BC #### [facility] [address] [place] [address] Dr. Lolita Alvarado EO # 0.2 103/ul Normal 0.0-0.7 [facility] Comment on above: Performed By: #### C BC #### [facility] [address] [place] [address] Dr. Lolita Alvarado Eosinophils/100 WBC (Bld) 3.7 % Normal 0.9-7.0 [facility] Comment on above: Performed By: #### C BC #### [facility] [address] [place] [address] Dr. Lolita Alvarado Erythrocyte distribution width (RBC) [Ratio] 13.0 % Normal 11.0-15.0 [facility] Comment on above: Performed By: #### C BC #### [facility] [address] [place] [address] Dr. Lolita Alvarado Hematocrit (Bld) [Volume fraction] 32.2 % Critically low 36.0-48.0 [facility] Comment on above: Performed By: #### C BC #### [facility] [address] [place] [address] Dr. Lolita Alvarado Hemoglobin (Bld) [Mass/Vol] 10.6 g/dL Critically low 12.0-16.0 [facility] Comment on above: Performed By: #### C BC #### [facility] [address] [place] [address] Dr. Lolita Alvarado IG # 0.02 10e3/ul Normal 0.00-0.03 [facility] Comment on above: Performed By: #### C BC #### [facility] [address] [place] [address] Dr. Lolita Alvarado IG % 0.5 % Normal 0.0-0.5 [facility] Comment on above: Performed By: #### C BC #### [facility] [address] [place] [address] Dr. Lolita Alvarado LYMPH # 1.4 103/ul Normal 1.2-3.8 [facility] Comment on above: Performed By: #### C BC #### [facility] [address] [place] [address] Dr. Lolita Alvarado Lymphocytes/100 WBC (Bld) 32.4 % Normal 20.5-60.0 [facility] Comment on above: Performed By: #### C BC #### [facility] [address] [place] [address] Dr. Lolita Alvarado MANUAL DIFF REQ NO Normal [facility] Comment on above: Performed By: #### C BC #### [facility] [address] [place] [address] Dr. Lolita Alvarado MCH (RBC) [Entitic mass] 32.1 pg Normal 26.7-34.0 [facility] Comment on above: Performed By: #### C BC #### [facility] [address] [place] [address] Dr. Lolita Alvarado MCHC (RBC) [Mass/Vol] 32.9 g/dL Normal 29.9-35.2 [facility] Comment on above: Performed By: #### C BC #### [facility] [address] [place] [address] Dr. Lolita Alvarado MCV (RBC) [Entitic vol] 97.6 fL Normal 81.0-99.0 [facility] Comment on above: Performed By: #### C BC #### [facility] [address] [place] [address] Dr. Lolita Alvarado MONO # 0.6 103/ul Normal 0.3-0.8 [facility] Comment on above: Performed By: #### C BC #### [facility] [address] [place] [address] Dr. Lolita Alvarado Monocytes/100 WBC (Bld) 14.0 % Critically high 1.7-12.0 [facility] Comment on above: Performed By: #### C BC #### [facility] [address] [place] [address] Dr. Lolita Alvarado NEUT # 2.1 103/ul Normal 1.4-6.5 [facility] Comment on above: Performed By: #### C BC #### [facility] [address] [place] [address] Dr. Lolita Alvarado Neutrophils/100 WBC (Bld) 48.7 % Normal 43.0-75.0 [facility] Comment on above: Performed By: #### C BC #### [facility] [address] [place] [address] Dr. Lolita Alvarado Platelet mean volume (Bld) [Entitic vol] 8.2 fL Critically low 9.5-13.5 [facility] Comment on above: Performed By: #### C BC #### [facility] [address] [place] [address] Dr. Lolita Alvarado PLT 216 103/ul Normal 150-450 [facility] Comment on above: Performed By: #### C BC #### [facility] [address] [place] [address] Dr. Lolita Alvarado RBC 3.30 106/ul Critically low 4.20-5.40 [facility] Comment on above: Performed By: #### C BC #### [facility] [address] [place] [address] Dr. Lolita Alvarado WBC 4.3 103/ul Normal 4.0-11.0 [facility] Comment on above: Performed By: #### C BC #### [facility] [address] [place] [address] Dr. Lolita Alvarado OCC BLD IMMUNOASSAYon 2021 OCCULT BLOOD Positive Abnormal NEGATIVE [facility] Comment on above: Performed By: #### O ELADIO #### [facility] [address] [place] [address] Dr. Lolita Alvarado PROTIMEon 06-01-2022 INR Coag (PPP) [Relative time] 1.62 {INR} Normal [facility] Comment on above: Performed By: #### P T, PTT #### [facility] [address] [place] [address] Dr. Lolita Alvarado INR GUIDELINES SEE BELOW Normal [facility] Comment on above: Result Comment: TOSHA RED INR: 2.0 - 3.0 CONDITIONS NOT LISTED BELOW 2.5 - 3.5 FOR PROSTHETIC HEART VALVE REPLACEMENT 2.5 - 3.5 RECURRENT THROMBOSIS Performed By: #### P T, PTT #### [facility] [address] [place] [address] Dr. Lolita Alvarado PT Coag (PPP) [Time] 17.0 s Critically high 9.0-11.6 [facility] Comment on above: Performed By: #### P T, PTT #### [facility] [address] [place] [address] Dr. Lolita Alvarado PTTon 06-01-2022 aPTT Coag (Bld) [Time] 40.2 s Critically high 22.3-36.2 [facility] Comment on above: Performed By: #### P T, PTT #### [facility] [address] [place] [address] Dr. Lolita Alvarado Covid-19 PCR ([facility])on 05-06 SARS-CoV-2 (COVID-19) RNA EDWIN+probe Ql (Unsp spec) Not detected Normal NOT DETECTED [facility] Comment on above: Result Comment: This test is not yet approved or cleared by the [place] FDA. When there are no FDA-approved or cleared tests available, and other criteria are met, FDA can make tests available under an emergency access mechanism called an Emergency Use Authorization (EUA). The EUA for this test is supported by the [place] of Health and Human Service's (HHS's) declaration [...] consistent with SARS-CoV-2. Performed By: #### [facility] #### [facility] [address] [place] [address] Dr. Lolita Alvarado US NOLBERTO DOP LEG LTon 05-25-20 22 US NOLBERTO DOP LEG LT EXAMINATION: US [...] by: SHERYL SRINIVASAN Date: 2022-05-25 16:09 Normal [facility] US NOLBERTO DOP LEG LTon 04-28-20 22 US NOLBERTO DOP LEG LT EXAM: US [...] and mid calf. There may be a integration director extending to the region of the thrombosis. The remaining deep venous structures are patent. 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 This finding was placed in the stat call folder. 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 Electronically authenticated by: CHUCK TATUM Date: 2022-04-28 19:31 Normal [facility] POINT OF CARE GLUCOSEon 06-2 Glucose [Mass/Vol] 86 mg/dL Normal 74-106 [facility] Comment on above: Performed By: #### C BC #### [facility] [facility] [address] [address] [address] 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 Arinai delilah 01-23-2024 14:05-0400 Diastolic blood pressure 73 mm[Hg] Mohlexx Pastrana [facility] 01-23-2024 14:05-0400 Mean blood pressure 93 mm[Hg] Mohamad Mouchli [facility] 01-23-2024 14:05-0400 Systolic blood pressure 134 mm[Hg] Mohlexx Moangelicali [facility] 01-23-2024 14:02-0400 Blood Pressure Location Mohlexx Pastrana [facility] 01-23-2024 14:02-0400 Diastolic blood pressure 82 mm[Hg] Tkd Ibrahimali [facility] 01-23-2024 14:02-0400 Heart rate 84 /min Lynn Alexandrali [facility] 01-23-2024 14:02-0400 Respiratory rate 16 /min Lynn Pastrana [facility] 01-23-2024 14:02-0400 Systolic blood pressure 147 mm[Hg] Tkd Moangelicali [facility] Encounters Encounter Date Encounter Type Care Provider Facility Start: 01-31-2024 End: 01-31-2024 ambulatory THOMAS CAREY Not Available Start: 01-23-2024 End: 01-24-2024 ambulatory Lynn Pastrana Facility:[facility] Start: 01-23-2024 End: 01-23-2024 Patient encounter procedure Lynn Pastrana [facility] Start: 01-17-2024 End: 01-17-2024 ambulatory JAMAL VIZCARRA Not Available Start: 01-11-2024 ambulatory Lynn Pastrana Facilit y:[facility] Start: 01-10-2024 ambulatory Lynn Pastrana Facilit y:[facility] Start: 12-14-2023 End: 12-14-2023 ambulatory JAMAL VIZCARRA Not Available Start: 12-14-2023 End: 12-14-2023 Postop follow up visit related to original px Jamal MARIE Work Phone: [facility] Comment on above: S/P right knee arthr oscopy (Primary Dx) Start: 11-16-2023 End: 11-16-2023 ambulatory JAMAL VIZCARRA Not Available Start: 10-26-2023 End: 10-26-2023 ambulatory JAMAL VIZCARRA Not Available Start: 10-11-2023 End: 10-16-2023 Evaluation and management of inpatient Brando Garcia Facility:[facility] Start: 10-10-2023 End: 10-10-2023 ambulatory JOB [...] Start: 11-01-2022 End: 11-01-2022 ambulatory Santiago Otto Facility:[facility] Start: 11-01-2022 End: 11-01-2022 ambulatory MD Santiago Otto Work Phone: [facility] Work Phone: Start: 11-01-2022 End: 11-01-2022 Patient encounter procedure MD Santiago Otto Work Phone: [facility] Work Phone: Start: 10-23-2022 End: 10-24-[address] SANTIAGO OTTO . Facility:[facility] Start: 10-16-2022 End: 10-17-2022 ambulatory RACHANA KENT Facility:[facility] Start: 10-11-2022 End: 10-11-2022 ambulatory Rachana Viky Other [facility] Other Start: 10-11-2022 Telephone encounter Rachana Kent F [facility] Start: 09-12-2022 End: 09-13-[address] SANTIAGO OTTO . Facility:[facility] Start: 08-29-2022 End: 08-29-2022 Patient encounter procedure [facility]GER[facility] Start: 08-22-2022 End: 08-23-2022 ambulatory BRAD CALDWELL Facility:[facility] Start: 08-16-2022 End: 08-16-[address] ARIE BERGERON . Facility:[facility] Start: 08-12-[address] ARIE BERGERON . [facility] ity:[facility] Start: 08-10-2022 End: 08-11-[address] SANTIAGO OTTO . Facility:[facility] Start: 08-10-2022 Encounter for other preprocedural examination DR ARIE BERGERON . [facility] Start: 08-08-2022 End: 08-09-[address] ARIE [...] ambulatory DR SANTIAGO OTTO . Facility:[facility] Start: 06-02-2022 End: 06-03-[address] SANTIAGO OTTO . Facility:[facility] Start: 06-01-2022 End: 06-02-2022 ambulatory STARR ARROYO . Facility:[facility] Start: 05-25-2022 End: 05-25-[address] SANTIAGO OTTO . Facility:[facility] Start: 05-25-2022 End: 05-26-[address] SANTIAGO OTTO . Facility:[facility] Start: 04-28-2022 End: 04-29-2022 ambulatory STARR ARROYO . Facility:[facility] Start: 04-25-2022 End: 04-25-[address] IVANIA GARCIA . Facility:[facility] Procedures Date Procedure Procedure Detail Performing Clinician [...] DERM [address] [place] [address] Nathalie Horne MD [address] [place] [address] [facility] Start: 08-06-2024 End: 08-06-2024 Telemedicine consultation with patient 08/06/2024 9:30 AM EDT Telemedicine [facility] [address] [place] [address] Jr. Job Aguilar, [address] [facility] [address] [place] [address] [facility] Start: 07-06-2023 Influenza vaccination Influenza Vaccine (#1) [facility] Immunizations Immunization Date Immunization Notes Care Provider Fa cility 10-11-2022 SARS-CoV-2 (COVID-19 ) [id number] Lynn Pastrana [facility] Comment on above: Result Comment: 2023: [id number] 08-16-2021 SARS-CoV-2 (COVID-19 ) mRNA BNT-162b2 vax [employer] Moangelicali [facility] 12-22-2020 SARS-CoV-2 (COVID-19 ) mRNA BNT-162b2 OssDsign ABx [employer] Coamad Mouchli [facility] 11-29-2020 SARS-CoV-2 (COVID-19 ) mRNA BNT-162b2 vax [employer] Monitoring [employer] SpineVisionangelicali [facility] 08-17-2020 influenza virus vacc ine, unspecified formulation Jamal MARIE Work Phone: [facility] 08-06-2017 pneumococcal conjuga te vaccine, 13 valent Mohamad Mouchli [facility] 07-26-2017 influenza virus vacc ine, unspecified formulation Mohamad Mouchli [facility] 01-18-2016 pneumococcal polysaccharide vaccine, 23 valent Mohamad Mouchli [facility] 09-10-2015 zoster vaccine, live Mohamad Mouchli [facility] 08-05-2015 influenza virus vacc ine, unspecified formulation Mohamad Mouchli [facility] Payers Date Payer Category Payer Unknown AARP AARP [id number] 2022-Present [address] [place] [address] [id number] 2022 Unknown [id number] 2003 Medicare MEDICARE MEDICAR E PART B [id number] 2003-[place] [address] Medicare [id number] 1959 Medicare [id number] 2.16.840.1.697680.19 1959 Self-pay 1959 Unknown [id number] 2.16.840.1.573323.19 1938 Unknown [id number] 2.16.840.1.727547.3.579.2.593 1938 Unknown [id number] 2.16.840.1.194300.3.579.2.593 1938 Unknown [id number] 2.16.840.1.810697.3.579.2.593 1938 Unknown [id number] 2.16.840.1.547751.3.579.2.593 1938 Unknown [id number] 2.16.840.1.945947.3.579.2.59 1938 Unknown [id number] 2.16.840.1.898822.3.579.2.593 1938 Unknown [id number] 2.16.840.1.292399.3.579.2.59 1938 Unknown [id number] 2.16.840.1.605837.3.579.2.59 1938 Unknown [id number] 2.16.840.1.122603.3.579.2.59 1938 Unknown [id number] 2.16.840.1.754781.3.579.2.59 1938 Unknown [id number] 2.16.840.1.476884.3.579.2.593 1938 Unknown [id number] 2.16.840.1.488520.3.579.2.593 1938 Unknown [id number] 2.16.840.1.161144.3.579.2.59 1938 Unknown [id number] 2.16.840.1.361729.3.579.2.593 1938 Unknown [id number] 2.16.840.1.999525.3.579.2.59 1938 Unknown [id number] 2.16.840.1.996782.3.579.2.593 1938 Unknown [id number] 2.16.840.1.477258.3.579.2.593 1938 Unknown [id number] 2.16.840.1.917548.3.579.2.593 1938 Unknown [id number] 2.16.840.1.098193.3.579.2.593 1938 Unknown [id number] 2.16.840.1.825965.3.579.2.593 1938 Unknown [id number] 2.16.840.1.557251.3.579.2.593 1938 Unknown [id number] 2.16.840.1.620284.3.579.2.593 1938 Unknown [id number] 2.16.840.1.539707.3.579.2.593 1938 Unknown [id number] 2.16.840.1.858293.3.579.2.593 1938 Unknown [id number] 2.16.840.1.409174.3.579.2.593 1938 Unknown [id number] 2.16.840.1.749893.3.579.2.593 1938 Unknown [id number] 2.16.840.1.067051.3.579.2.593 1938 Unknown [id number] 2.16.840.1.230356.3.579.2.593 1938 Unknown [id number] 2.16.840.1.995082.3.579.2.718 1938 Unknown [id number] 2.16.840.1.960396.3.579.2.727 1938 Unknown [id number] 2.16.840.1.442978.3.579.2.1259 1938 Unknown [id number] 2.16.840.1.344439.3.579.2.1259 1938 Unknown [id number] 2.16.840.1.302046.3.579.2.1259 1938 Unknown [id number] 2.16.840.1.714518.3.579.2.9 1938 Unknown [id number] 2.16.840.1.469574.3.579.2.1259 1938 Unknown [id number] 2.16.840.1.551864.3.579.2.1259 1938 Unknown [id number] 2.16.840.1.352804.3.579.2.1259 1938 Unknown [id number] 2.16.840.1.484531.3.579.2.1259 Medicare Medicare Outpatient [id number] [id number] Unknown [id number] 2.16.840.1.930160.3.579.2.531 Social History Date Type Detail Facility Start: 06-13-2022 End: 01-23-2024 Tobacco smoking status Never smoked tobacco (finding) [facility] Tobacco smoking status Never [facility] Start: 11-16-2023 Sex Assigned At Female F [facility] Start: 1940 Sex Assigned At Female F [facility] Start: 10-05-2023 Tobacco use and exposure Smokeless tobacco non-user [facility] Start: 11-16-2023 Alcohol intake Lifetime non-d mery (finding) [facility] Start: 11-16-2023 History of Social function [facility] Start: 1940 Sex Assigned At Not on file [facility] Functional Status Date Assessment Result Facility 01-23-2024 Functional Status N/A [facility] Clinical Notes 06-01-2022 to 12-14-2023 FRANK Dangelo [...] her PCP for evaluation of diarrhea, taking izud-edi-byoymzz medications. States she feels like they are [...] evaluation. FRANK Dangelo documented in this encounter [facility] 10-17-2023 Note [id number]#1.00[facility] 10-17-2023 Note [id number]#1.00[facility] 10-17-2023 Note [id number]#[address] [place] [address] 10-16-2023 Note Education Materials POST OPERATIVE TOTAL [...] #8 follow up in office with physician energy assistant Joe Vizcarra as scheduled #9 [facility] will be contacting you within the next 24 hours to set up home therapy visits #11 You have been given a prescription for Parsons, norco is narcotic, narcotics are addictive. If you feel you have problems with addiction please feel free to contact Dr. Aguilar, your family physician, or proceed to the nearest hospital's emergency services department. [facility] 10-16-2023 Note [facility] Discharge Summary PERSON INFORMATION Name ALICIA NGUYỄN Age 83 Years 1940 Sex FEMALE Language Wallisian PCP SANTIAGO OTTO Marital Status Phone Med Service Med/Surg Acct# Arrival 10/11/2023 06:57:39 Visit Reason SURGERY - RIGHT KNEE SCOPE Acuity LOS 005 01:37 Address: [address] [place] [address] Comment: PROVIDER INFORMATION VITALS INFORMATION Vital Sign [...] range between ( 1.3 and 2.9 ) [place] Abs#: 0.8 x103/mcL -- Normal range between ( 0.0 and 0.8 ) [place] %: 0.2 % -- Normal range between ( 0.2 and 2.0 ) Auto [place] %: 9 % -- Normal range between [...] ( 32 and (more content not included)... [facility] 10-17-2022 Note PROCEDURE: XR SCAPUL A RT COMPARISON: None. HISTORY: Disorder of bone FINDINGS: BONES:No acute fracture or dislocation. Subchondral cystic changes of the greater tuberosity and humeral neck SOFT TISSUES:Negative. No visible soft tissue swelling. EFFUSION:None visible. OTHER: Aortic atherosclerosis IMPRESSION: No acute abnormality Electronically authenticated by: SHERYL SRINIVASAN Date: 2022-10-17 07:20 [facility] 08-16-2022 Note OPERATIVE NOTE OPERATION DATE: [...] good condition. CC: Santiago Otto M.D. [facility] 07-27-2022 Note CONSULTATION PROCEDURE DATE: 07/27/2022 PRE [...] be followed up in the office. [facility] 07-27-2022 Note CONSULTATION CONSULTATION DATE: 07/27/2022 HISTORY [...] agrees with the plan of care. [facility] 06-01-2022 Note CONSULTATION CONSULTATION DATE: 06/01/2022 HISTORY [...] Patient is in agreement to this. [facility] 06-01-2022 Note CONSULTATION PROCEDURE DATE: 06/01/2022 PREOPERATIVE [...] and patient tolerated the procedure well. [facility] Evaluation + Plan note No data available for this section [facility] Evaluation note No Information [place] [employer] Other Evaluation note No assessment inform ation available [facility] Work Phone: Evaluation note Diagnosis S/P [...] knee replacement Hospitalization History see surgical hx [facility] Other Hospital Discharge instructions No data available for this section [facility] Progress note No data available for this section [facility] Chief Complaint and Reason for Visit Chief Complaint r91.8 Advance Directives No Advanced Directives Records Found Advance Directive Response Recorded Date/ Time Advance Directives No October 2:29pm Summary Purpose Family History No Family History Records FoundNo Family History Records FoundNo Family History Records Found No data available for this section No Family History Records FoundNo Family History Records Found Additional Source Comments Patient Care team informatio n (unrecognized section and content) Team Status: Inactive Member Role Status Dates Santiago Otto MD Primary Care Provider, Attending Edinson castanon Active Team Status: Active Member Role Status Dates Santiago Otto MD Primary Care Provider Active Environmental Monitoring Specialist Relationship Specialty Start Date End Date Santiago Otto MD [address] [place] [address] PCP - General Family Medicine 10/05/23 REASON FOR VISIT (unrecogniz ed section and content) Reason Comments Pain Goals (unrecognized section and content) Goals may be documented in a n alternate section INFORMATION SOURCE (unrecogn ized section and content) DATE CREATED AUTHOR 11/14/2022 [facility] DATE CREATED AUTHOR AUTHOR'S ORGANIZ ATION 04/13/2023 [facility] DATE CREATED AUTHOR AUTHOR'S ORGANIZ ATION 11/02/2023 [facility] DATE CREATED AUTHOR AUTHOR'S ORGANIZ ATION 01/25/2024 [facility] DATE CREATED AUTHOR AUTHOR'S ORGANIZ ATION 02/01/2024 [facility] Specialists [facility] FOR RECORDS PERTAINING TO PATIENTS WHO ARE [...] BE BASED ON THE PRIMARY CLINICAL RECORDS. [employer] provides no warranty or guarantee of the accuracy or completeness of information in this document.
== END 2024-02-27 08:42 | disposition home or self-care (01) ==
LOC: PM 08:41
PROVIDERS: PCP Family Medicine; Visit Provider Nurse Practitioner
DX: M47.816 Spondylosis without myelopathy or radiculopathy, lumbar region (principal); M62.838 Other muscle spasm; M47.896 Other spondylosis, lumbar region
CPT/HCPCS: G0463

== ENCOUNTER 2024-04-25 10:58 | Outpatient (OUT) | payer MEDICARE, SELFPAY ==
--- OUTSIDE RECORDS SUMMARY | 2024-04-25 11:21 | XMS_ITS | CCD ---
Author Organization [facility] Care Team Providers Care Collection Card Clerk Name Role Phone Santiago Otto Primary Care Physician Rachana Kent Unavailable MD Santiago Otto Primary Care Provider [phone] MD Santiago Otto Attending Provider [phone] Santiago Otto Attending Unavailable Santiago Otto Primary Care Unavailable Santiago Otto Admitting Unavailable HOY ., DR HENDERSON Primary [...] HENDERSON Admalina Unavailable HOY ., DR HENDERSON Consulting Unavailable [...] DR RIGO Love Consulting Unavailable HIGHLANDER, PETER Krystal Admitting Unavailable HIGHLANDER, BRAD Rice Attending Unavailable HOY ., DR HENDERSON Primary Care Unavailable HIGHLANDER, BRAD Rice Consulting Unavailable HOY ., DR HENDERSON Consulting Unavailable HOY ., DR HENDERSON Primary Care Unavailable HOY ., DR HENDERSON Admalina Unavailable HOY ., DR HENDERSON Attending Unavailable ZIEBER, DR RIGO Love Consulting Unavailable BLADES, RACHANA Admitting Unavailable BLADES, RACHANA Attending Unavailable BLOOMFIELD, DR SHERYL Navarrete Consulting Unavailable HOY ., [...] Unavailable Santiago Otto MD Primary Care Provider [phone] JAMAL VIZCARRA Attending Unavailable JAMAL VIZCARRA Attending Unavailable JAMAL VIZCARRA Attending Unavailable THOMAS CAREY Attending Unavailable ISAI CROUCH Attending Unavailable RGEGORY ZAMORA Attending Unavailable JAMAL VIZCARRA Attending Unavailable JAMAL VIZCARRA Referring Unavailable JR. AGUILAR GEORGE C Attending Unavaila ble JAMAL VIZCARRA Attending Unavailable THOMAS CAREY Attending Unavailable Lynn Pastrana Attending Unavailable Lynn Pastrana Attending Unavailable Lynn Pastrana Attending Unavailable Allergies Allergy Classification Reported Allergen(s) Allergy Type Date of Onset Reaction(s) Facility Unclassified (1 source) No Known Medication Allergies; Translations: [No Known Medication Allergies] Propensity to adverse reactions (disorder) [facility] Repository Medications Current Medications Medication Drug Class(es) Dates Sig (Normalized) Sig (Original) 8 hr acetaminophen 650 mg extended release oral tablet (2 sources) acetaminophen (Tylenol 8 Hour Arthritis Pain) 650 MG ER tablet every 8 (eight) hours. 0 Active alendronic acid 70 mg oral tablet (6 sources) Bisphosphonate Start: 06-08-2022 take 1 tablet by mouth every week Fosamax 70 mg oral tablet 70 mg = 1 tab(s), Oral, qWeek, Refills(s) 0 Start Date: 06/08/22 Status: Ordered amLODIPine 5 mg oral tablet (6 sources) Dihydropyridine Calcium Channel Betsy Start: 06-16-2023 amLODIPine (Norvasc) 5 MG tablet Start: 06-08-2022 take 2 tablets by mo [facility] once daily amLODIPine 5 mg Tab 10 mg = 2 tab(s), Oral, Daily, Refills(s) 0 Start Date: 06/08/22 Status: Ordered amLODIPine Besyl ate 5 MG Oral for 90 Days Active aspirin 81 mg delayed release oral tablet (5 sources) Platelet Aggregation Inhibitor, Nonsteroidal Anti-inflammatory Drug Start: 06-08-2022 take 1 tablet by mouth once daily aspirin 81 mg Oral EC Tab 81 mg = 1 tab(s), Oral, Daily, Refills(s) 0 Start Date: 06/08/22 Status: Ordered aspirin 81 MG ch ewable tablet 1 (one) time each day at the same time. 0 Active calcium carbonate 1500 mg oral tablet (3 sources) Start: 06-08-2022 calcium (as carbonate) 600 [...] Orally Once a day Active Osteo Bi-Flex (3 sources) Start: 06-08-2022 take 1 tablet by mouth once daily Osteo Bi-Flex 1 tab(s), Oral, Daily, Refill(s) 0 Start Date: 06/08/22 Status: Ordered [facility] E Oil 45 MG/0.25ML oil (2 sources) Start: 10-09-2022 [facility] E Oil 45 MG/0.25ML oil USE 1 ML TOPICALLY ONCE DAILY FOR 30 DAYS 0 10/09/2022 Active cyclobenzaprine hydrochloride 10 mg oral tablet (3 sources) Muscle Relaxant Start: 06-08-2022 take 1 [...] Date: 06/08/22 Status: Ordered Diclofenac 75mg Tab-DR (2 sources) Start: 06-08-2022 take 1 tablet [...] Active levothyroxine sodium 0.05 mg oral tablet (6 sources) l-Thyroxine Start: 06-16-2023 levothyroxine (Synthroid, Levoxyl) 50 MCG tablet Start: 06-08-2022 take 1 tablet by robert th once daily levothyroxine 50 mcg (0.05 mg) Tab 50 mcg = 1 tab(s), Oral, Daily, Refills(s) 0 Start Date: 06/08/22 Status: Ordered liothyronine sodium 0.005 mg oral tablet (4 sources) l-Triiodothyronine Start: 06-08-2022 take 1 tablet [...] Active metoprolol tartrate 50 mg oral tablet (6 sources) beta-Adrenergic Betsy Start: metoprolol tartrate (Lopressor) 50 MG tablet Start: 06-08-2022 Metoprolol tar trate 50 mg Tab as directed, Refills(s) 0 Start Date: 06/08/22 Status: Ordered Metoprolol Tartr ate 50 MG Oral for 90 Days Active nitroglycerin 0.4 mg sublingual tablet (3 sources) Nitrate Vasodilator Start: 06-08-2022 nitroglycerin 0.4 mg sublingual Tab 0.4 mg = 1 tab(s), SubLingual, q5min, PRN for chest pain, Refills(s) 0 Start Date: 06/08/22 Status: Ordered omeprazole 20 mg delayed release oral capsule (6 sources) Proton Pump Inhibitor Start: 06-08-2022 take [...] TID, # 42 tab(s), Refills(s) 0, Pharmacy: [facility]/pharmacy #[id number], 159, cm, 01/23/24 14:05:00 EDT, Height/Length [...] Class(es) Dates Sig (Normalized) Sig (Original) Triamcinolone (5 sources) Corticosteroid Start: 06-08-2022 triamcinolone Top 0.1% [...] Date Documented Da te Episodic/Chronic Cardiac dysrhythmias (3 sources) Premature atrial contraction 06-08-2022 Chronic Conduction disorders (3 sources) Ventricular bigeminy 06-08-2022 Chronic Deficiency and other anemia (3 sources) Iron deficiency anemia 06-13-2022 Episodic Diabetes [...] WITHOUT ESOPHAGITIS] Onset: 05-01-2022 Chronic Essential hypertension (4 sources) Hypertensive disorder; Translations: [Essential (primary) hypertension] Onset: 05-01-2022 06-08-2022 Chronic Gastritis and duodenitis (1 source) Unspecified chronic gastritis without bleeding; Translations: [UNS CHRONIC GASTRITIS W/O BLEEDING] Onset: 08-24-2022 Chronic Noninfectious gastroenteritis (2 sources) Noninfectious enteritis; Translations: [Noninfective gastroenteritis and colitis, unspecified] Onset: 04-14-2024 Episodic Osteoarthritis (1 source) Unspecified osteoarthritis, unspecified site; Translations: [UNSPECIFIED OSTEOARTHRITIS UNS SITE] Onset: 05-01-2022 Chronic Other acquired deformities (3 sources) Scoliosis of lumbar spine 06-08-2022 Chronic Other bone disease and musculoskeletal deformities (3 sources) Osteopenia 06-08-2022 Episodic Other circulatory disease (3 sources) History of transient ischemic attack 06-08-2022 Episodic Other circulatory disease (3 sources) Vascular insufficiency 06-08-2022 Episodic Other disorders of stomach and duodenum (1 source) Gastroduodenal disorder; Translations: [Disease of stomach and duodenum, unspecified] Onset: 04-14-2024 Episodic Other disorders of stomach and duodenum (1 source) Disorder of stomach 04-14-2024 Episodic Other gastrointestinal disorders (3 sources) Irritable bowel syndrome 06-08-2022 Chronic Other gastrointestinal disorders (1 source) Irritable bowel syndrome without diarrhea; Translations: [IRRITABLE BOWEL SYND W/O DIARRHEA] Onset: 05-01-2022 Chronic Other gastrointestinal disorders (1 source) Irritable bowel syndrome with diarrhea; Translations: [Irritable bowel syndrome with diarrhea] Onset: 01-23-2024 Chronic Other gastrointestinal disorders (3 sources) Dark stools 06-13-2022 Episodic Other gastrointestinal disorders (3 sources) History of gastritis 06-08-2022 Episodic Other gastrointestinal disorders (3 sources) Occult blood in stools 06-13-2022 Episodic Other gastrointestinal disorders (1 source) Abnormal feces; Translations: [Other fecal abnormalities] Onset: 01-23-2024 Episodic Other nervous system disorders (1 source) Chronic pain; Translations: [Other chronic pain] Chronic Other nervous system disorders (1 source) Other chronic pain; Translations: [OTHER CHRONIC PAIN] Onset: 04-27-2022 Chronic Other nutritional; endocrine; and metabolic disorders (3 sources) Overweight in adulthood with body mass index of 25 or more but less than 30 06-13-2022 Episodic Phlebitis; thrombophlebitis and thromboembolism (6 sources) Deep venous thrombosis of lower extremity; Translations: [Personal history of other venous thrombosis and embolism] Onset: 05-01-2022 06-08-2022 Episodic Residual codes; unclassified (3 sources) Edema 06-08-2022 Episodic Residual codes; unclassified (3 sources) Insomnia 06-08-2022 Episodic Residual codes; unclassified (2 sources) History of arthroscopy of knee joint; Translations: [Other specified postprocedural states] 12-13-2023 Episodic Spondylosis; intervertebral disc disorders; other back problems (11 sources) Spondylosis without myelopathy or radiculopathy, lumbar region; Translations: [Spondylosis without myelopathy or radiculopathy, thoracic region] Onset: 04-25-2022 Chronic Spondylosis; intervertebral disc disorders; other back problems (12 sources) Spinal stenosis of thoracic region; Translations: [...] Onset: 05-29-2022 Varicose veins of lower extremity (3 sources) Varicose veins of lower extremity 06-08-2022 Episodic Viral infection (1 source) COVID-19; Translations: [COVID-19] Onset: 07-05-2022 Past or Other Problems Problem Classification Problem Date Documented Da te Episodic/Chronic Deficiency and other anemia (5 sources) Iron deficiency anemia, unspecified; Translations: [IRON DEFICIENCY ANEMIA UNSPECIFIED] Onset: 08-10-2022 Episodic Gastrointestinal hemorrhage (1 source) Melena; Translations: [MELENA] Onset: 08-24-2022 Episodic Other aftercare (1 source) care home (current) use of aspirin; Translations: [FPC CURRENT USE OF ASPIRIN] Onset: 08-24-2022 Episodic Other aftercare (1 source) Other game attendant (current) drug therapy; Translations: [OTH [facility] CURRENT DRUG THERAPY] Onset: 05-01-2022 Episodic Other [...] Test Name Value Interpretation Reference Range Facility Ambulatory Visit Summaryon 0 04-14-2024 Ambulatory Visit Summary ROMEO NGUYỄN :1940 Visit Date:04/14/2024 Ambulatory Visit Instructions Your Diagnosis Chronic diarrhea Gastropathy Your Care Team Attending Physician - Lynn Pastrana MD Primary Care Physician - Santiago Otto [...] mg) Tab) liothyronine (liothyronine 5 mcg Tab) metoprolol (Metoprolol tartrate 50 mg Tab) nitroglycerin (nitroglycerin 0.4 mg sublingual Tab) omeprazole (omeprazole 20 mg Cap-DR) triamcinolone topical (triamcinolone Top 0.1% Crm) Procedures Performed Colonoscopy (08/16/2022), EGD - Esophagogastroduodenoscopy (08/16/2022), Colonoscopy (11/01/2016), EGD - Esophagogastroduodenoscopy (11/01/2016), Colonoscopy (02/28/2012), Colonoscopy (07/28/2009), Appendectomy, Arthroplasty of knee, Arthroscopy of knee, Cataract extraction, Cataract extraction, Cholecystectomy, Knee, Suspension of bladder. Discharge Vitals Heart Rate (Peripheral) 68 Respiratory Rate 16 Blood Pressure 140/77 Height 159 cm Height 63 in Weight 55.6 kg Weight 122.32 lb BMI 21.99 What to do next Scheduled Follow-Up Appointments Sunday 12:45 PM EDT With: Zeina LONGORIA, Lynn Mohr Where: [facility] Normal [facility] Gastroenterology Office/Clin ic Noteon 04-14-2024 Gastroenterology Office/Clinic Note Chief Complaint diarrhea HPI Staff This is a 83 year old female who presents today for complaints of diarrhea. Dr Pastrana History of Present Illness: 01/23/2024 started after receiving abx for infection post knee surgery pt developed diarrhea 1-2 bms a day- started to be form pt tried pepto and this did not help much she also tried probiotics and imodium colonoscopy long time ago hx of bam 10-[address] Pastrana Assessment/Plan: 01/23/2024 1. Irritable bowel syndrome with diarrhea (K58.0: Irritable bowel syndrome with diarrhea) 2. Positive fecal occult blood test (R19.5: Other fecal abnormalities) Orders: rifaximin, 550 mg = 1 tab(s), Oral, TID, # 42 tab(s), Refills(s) 0, Pharmacy: [facility]/pharmacy #[id number], 159, cm, 01/23/24 14:05:00 EDT, Height/Length Dosing, 55, kg, 01/23/24 14:05:00 EDT, Weight Dosing Likely postinfectious versus antibiotic induced diarrhea(IBS) Patient will continue probiotics Will treat with a course of rifaximin for 2 weeks If she does not feel better after completing antibiotics, will proceed with colonoscopy and random colon biopsies Last EGD/Colon w/ Dr Bergeron 08/16/22 POSTOPERATIVE DIAGNOSIS: Mild antral gastritis as well as vascular lesion in the cardia on the lesser curve, consistent with a possible Dieulafoy's lesion and redundant colon with diverticulosis. Final diagnosis: Stomach biopsy -Antral type gastric mucosa, with mild chronic inactive gastritis -immunohistochemical stain for h. pylori is negative History of Present Illness I have reviewed HPI staff note, most recent labs and imaging, more than 30 minutes spent reviewing the chart, during encounter, placing orders and counseling the patient. PT completed a course of rifaximin still with accidents of diarrhea - using Imodium on Imodium and align Review of Systems PHQ Score Initial Depression Screen Score: 0 SCORE All systems reviewed, negative except as mentioned above Physical Exam Vitals & Measurements HR: 68(Peripheral) RR: 16 BP: 140/77 HT: 63 in HT: 159 cm WT: 55.6 kg WT: 122.32 lb BMI: 21.99 General: alert, no acute distress HEENT: atraumatic normocephalic Cardiovascular: regular rate and rhythm, normal peripheral perfusion Respiratory: Lungs CTA, respirations non labored Extremities: no deformity, no trauma Abdomen: Benign, soft, nontender nondistended Assessment/Plan 1. Chronic diarrhea (K52.9: Noninfective gastroenteritis and colitis, unspecified) 2. Gastropathy (K31.9: Disease of stomach and duodenum, unspecified) Orders: rifaximin, 550 mg = 1 tab(s), Oral, TID, # 42 tab(s), Refills(s) 0, Pharmacy: [facility]/pharmacy #[id number], 159, cm, 01/23/24 14:05:00 EDT, Height/Length Dosing, 55, kg, 01/23/24 14:05:00 EDT, Weight Dosing rifaximin, See Instructions, 1 tab(s) Oral TID, # 18 tab(s), Refills(s) 0, samples given to patient (Rx) Continue align and as needed Imodium Might benefit from repeat colonoscopy with random colon biopsies if she gets her symptoms again Patient might benefit from repeat rifaximin course versus Questran in the future Follow-up No qualifying data available Problem List/Past Medical History Ongoing Bigeminy BMI 26.0-26.9,adult Chronic diarrhea Dark stools Edema Gastropathy History of gastritis History of TIA (transient [...] of knee, Cataract extraction, Cataract extraction, Cholecystectomy, Knee, Suspension of bladder. Medications amLODIPine 5 mg [...] BID Osteo Bi-Flex, 1 tab(s), Oral, Daily triamcinolone Top 0.1% Crm, 1 dano, Topical, BID Allergies No Known Allergies No Known Medication Allergies Social History Alcohol - Denies Alcohol Use, 06/13/2022 Substance Abuse - Denies Substance Abuse, 06/13/2022 Tobacco Never (less than 100 in lifetime) Tobacco Use:., (more content not included)... Normal [facility] Comment on above: Result Comment: Elec tronically Signed By: Zeina LONGORIA, Lynn Mohr\.br\Date and Time Signed: 04/14/24 12:52 EDT Gastroenterology Office/Clin ic Noteon 01-23-2024 Gastroenterology Office/Clinic [...] TID, # 42 tab(s), Refills(s) 0, Pharmacy: [facility]/pharmacy #[id number], 159, cm, 01/23/24 14:05:00 EDT, Height/Length [...] Brother. Cirrhosis o (more content not included)... [facility] Comment on above: Result Comment: Elec tronically Signed By: Zeina LONGORIA, Lynn Mohr\.br\Date and Time Signed: 01/23/24 14:17 EDT Physician Referralon 024 Physician Referral [id number] [facility] Coding Summaryon 10-22-2023 Coding Summary HTMLBase 64 XozalscsMVu8kWi+PGhlYWQ+PE1F FTCcQ27ntPScwI0pI9BTZHkCCtwh CMIKCYvZMsGuocMxBY4xuYFaMNGj IC8+VV3dWCKiRzobtPOba9U3zQL1 Q56txb1yMZrijNK9LAAjSgHkyini l0fskRw1DMeqOhdrUbWn BLJzzR49BRY3oK53Qx30rMItpVLp q8vnmDn0XiPzSQLrWJH6fUqgZZhj t6VmAZYtR04gzYFql4N4 TGUywLupgXRyPjUyuZS3jR4zREpf ezctq7rezinlAch7lb75lASfy9J5 pZI6W6BycxW5LKGupLJw QbzzjYNPkV2slqqep4omukirXtYc ADZwSYo0NVc2CIGgrWorUdFpYH21 OZO8NOWqhjImM8QjOKRq jLnhBdH9h4H8Sy5NO1ZLUajaC8SL TUFSWTwvdGQ+RX25sl86E8TrIwmx Sbp5HPMbEDG7dFA9vG8l AWPxQQyyp1C5cFU1I2GadwRxnh8a v5tdFMRsFHdfM96soJBdf2Y3LDXh wUI5WLBciDfmYxPlkC29 Oyc+USHixAecd2QhGppxi5hzf3in sAl6YtddEDQgwcWszBzfWHM2w8Rt Ux0nKNPouKR6hTO8dZ8c EgXbLmS3WAauY624HsUnpNAsFebb O58pS1EhqVG+RZTdQbe1LPKkdHcb LW0yH0RxWJZxlluvkUGp uOccBH8tAJIhmpkfENZfcK4uCLGu G0i1AxZhZgP3TEjvU6UwCAZshbre Cr99nL2mCfJiJfS2RDip Q8KkfzM7GHClzJDiXOpiJEO4Z48u w1F5BFIiZOGgJHQ1zWR7rV3mgOzn bjogbGVmdDsgdmVydGlj AXyqCVpjJ363JUSymKfkHjYcFWqn ZyBEYXRlOiAgMTIvMTgvMjAyMzwv dGQ+XNSuASM0oWqqQUEi hLPvRKprZz7xzEyonWjpGK4pPKWw rfqzXPZrjQ9uOPQplSTnnWxlDT4y JJTqmilci478VxIjQYY6 GNXowEHjJ0TrqG8vIoGsGFCsFQRy Y5OymDPjTSzgS864VConWiV8NMHo myZrK7AbNLHzzQhtBcH9 w2V1Pq7Ai6DbkbsvU3ZfdIYcSpMu QdqfVKi8Y0UqLwfdgSK+PY52RREt YT75XPp1XKN4lBgpPXdm GXNzO5AqnA7hVpSvHBVyWZAdLrw+ PHRhYmxlIHdpZHRoPScxMDAlJyBz nHhvPW4qMz4fMUQcSDMb eHsrgSDjFcRjo3bgDQRaJZctBF8t xYteL3IobLD7JPRdn3j2Qm81D21h Q1XatDB+QABomDK3gSK6 eL9cOsEfEnD6PBqdQ325OmEgpULn Rcyon2reo3rmyIc8ZnZ4DWIxlsOo zChxQEX3x4UmHv57G25g HSngAMKqZZLjOMCyJVRcnZixsd5a tT4jKo0+KZTbdDG9iXA9hV2rYjJp PfW9SXnjK995EsTpiGEp Ooawv2qnw0rhxNb0EgBjRHMrmnOz zDjcNLX2f3EkKj92M5EeoKrqd6Pw Xbj1fo19jZJuy0X6dXA9 D1ItBRVxcnftgAToqTegIH3wSZLt zvpmKSFmpY9qQZTlC3f5QnNwRwA7 GOnfX9ZllyG1RFSajLFj WTIhzXUZoU8dmrpjn4olncsbFsXv KTYiZAd8LTb2ETSupNddXuIpSDB7 HjD7PMA1xLDapK5wfKdv cwjmmA5sFww+MDI6sTIfuWKHUB0l OjwvdGQ+OOJcXIP9tXphBMjaBIXo tR9zPUCvC5u4CmSfDoW0 BJmjX0XkgbJ8LKJviIWsQJBovVDB mK3tjdpzo6vgylmlPvMxLJLmCOl9 KAs0VGDgxKefSvQmAFY9 EvM2DCZ6sCIyuE7mpOjkobaxgO7q Oyc+EcfwiAtuRIF7BPa7A9YhAhz2 PZRfaDdrXC7maMJkODzx Tw5uzBxyeFqyFB6pDLAivpzze300 BeLbx6vuZQDkbWOyTEaaDNX5M00a d5Z3RJCuIGSuYMC1vVJ0 gT4ddFuvfvsveROcaFdhnwExmEes BFjkLVbqS166QOKkcUcvVjZiKNm4 C2RcNzh7HDYlhZylXP0y bPOxGDdeUn1pjAjelFomBT2qEOLr ykqmi918ZbRdd6fjRXMndHKoIAwe PLR8T12lq8V9DOPzORYt ZMK1oHV3hJ7ftSbznfkwtDGgaAlt byAqlOdjLKpwPOddV204FQZthGlj ElHwhAn4U7WaDlx7QAAc lBpmJV9xuJBwGGcuZo8qgTngaMob LV8zYUHtrfksh067IcFyw3moCQZo dYJpCRtdDVI3U67tj5Q9 GFXuVAHdQFD2tPO1hA4ihMbfeyle eYOxwOftsnKreNysPUaiGEaoH970 IHRvcDsnPlBhdGllbnQg GOosAWr5L1SuVpfcmQV+DX79GJKf HM21oDLecMLyt0pzzJj4XsRdIZQv QVF8lGsmPKeya3UbURXj Q91emTQfn0J8FXJouRjjfCSwYhFy vCS5aR3yCEneiczxn4dytaxzYeqb q9wgsl95iO79U14dLFgy UCVzXJYoUYMmZDQyfLmjsb5jqV0l Ii8+NQZjlBL1qDH2jT0rXNSaQjN9 SCkkO877JvXofUAeLdkv t9enq1exsUt9AlE1XPJtpbWmvXbh TTJ9q2HpDo88J24oTDxkFAFvAOFs JEJcRTCueGiolm9fhT3i Ii8+VVTvwIL0tXX0fG5nQhHuOmP8 KAclN136KdIgpCNsXnrfV21uO7Og dXA+AGTlQlf5ONKofAlb QJ6uyMJeDXasYd0yCHN7ZdQySgSm KCjtD2TlKRWgxdkrzokwpTO3CIPm KICypD20Fa8abOdaTTXo qDKOkR8ppzskr3dbzxthIuSpZXNx CKj7NSl8BVDmeXbzTiHpICL6QkL9 BAV1qQDwhW7irWowfzol eL2iP6FfGHBfnsjaSx28rI3dPlKh RqA9BAjvOcs+UkFJRlNOSURFUiwg TUFSWSBBTElDRTwvdGQ+ IAXzRDN0kCssGPowRQGpmF7aOOLx C0v9InRmTwR2EVkhL3HnJFGgohpb Do00eZ0xUdWkDbM4EChg N0QsliG8LADmvRDmNYhiZVY6O35r n3V9ZMUdMMTmPRM5oNT7xW6dzCkp bjogbGVmdDsgdmVydGlj WEqfJDfpX296CKIjuXcoGiR3GrBk BwJ5Wos5Y2YpZnh1RESwgZnlMG5y gPZzBDqrNf7vgXuovFcz JU1cIJIlbwieHNSjjS6zJCZibYFz nTddDK7qZFQzebjjk353ImPjFRQ9 PPExfFSzH1BuoM5yBzBx VZPzCVEkN9FlpXTgLXohO597OArh YnM1FCBgvaVtM5CqHAYlwChlXiD0 w9G1Dg92AWEYYSXcxpkj dGQ+QUMzHTZ0xQenTMvqYCCtcN8k LYLeI5z3AfBmUgR6RLrtI7YgQXGm hcnhSb28iA6wIgVaXqJ9 YXgwG5NahjL9ZAIylREeUPwlRFT0 E14vp2C0MRZqGOCqWMG7iUS3sQ6z bGlnbjogbGVmdDsgdmVy lOkoFZboVSjqF996KOSpaRadOuOU TUFMRTwvdGQ+MLXbAXL6sXkcBJta KRSyjM4hLMIrU5s2WvRq EjP6BJmvT7HhAVWhijpiYo46zM5y MnYbTaJ4SUubO8VdwkW5VSKejWLw JZfjGEP0E37tf2W4NJVx DFJaXYT2pMA8qA0gbYihnvnmnMAf hHahjmXsjTgdDWdiZXoqK526NPDc oHhqZattiJE4rCHupFou dGQ+FL29gc74Y0ZlPejyFta8HIXl FVL8lBJ9kO7sQPUgWCnnn2E6vYB8 X8CqfkGiqo2hc8jiFAEp KZsuA41ifDUwm8J5DJYyzBZ3JYCe uFlbAnXkjG39Gsj+JGNtaXsda4Ns Ydkqg7oai7fckJv8SnVr TJIocnHupTfzVRH8h3MnEw55H55g UGswDBZfPEQoFLFhIGQzyAoapf6n pM1wPw9+PRCvqTX5mHQ1 uJ1aMkMrScL6QXptZ991PqCcuVDu Xjajd7cdo0oqgRw1YpIbCNHfazGd nAeoQFQ8s3OtGl54R7Xa nFqtv8CsZed6xr06lCVky6J3nTF7 R1PmFPTnmpzlzXUpzEsvEP3hROFt zevpXVQrlJ8qQLLaN0a6 YyWhFvG8DMbuI0ZopuG8GQHynRQr VJPdcEAScE1ehgpdt3ngnuerLaSh ENJnNXj3MWx6ADBqkOdy GeTePGI1JiW6XVA4lWLltN6htPrw isuruO0iBba+JFt8l5kklLPmBQ7g jNH8QR29NN65mJPaz6K3 tDZ8B3AsZSXnnzfjfhcjvSU4IQOq ZCAppL40Hk9vzScvEg2eTZGfIKJ8 IDGhrTYiS3QozK7mKpDj WOSgYFKfN9HdwXUzRWjmI452XXuk JmD2GKSoffMcN9XjHGKxvLlyHjS1 l8N8Bq3UYM55ST57NP00 sPSbw3G3hTZ2C5UuLFQfpvljxvee eLK1ZMNfGSFvmP87Og1bxFtkIh2i MDHzPGL8OGNutHHtU1Nc kD2bXoQkHUTxJPLaO2CnrELeFCdi F633GUyxGbA0BTHihyGjF0BpOUSh dNbyHyG2c4R1Xh2BEo02 PC96FS64cUSvx4M6aYS6V4AeWQVr lzerjxaglRT4WRNwWIGsoF21Jr7p iWcpIe2sGDRzQGS5QUDk dLMgW9QvhV7qAfQhSILmPBGcR3Io wSBeYThbZ195YXknJyY5KNZbvwAo U8GjMKQluDihRvZ3x0H5 Ai5CEQiikfa2J7BrZgehdTQ+PC90 QZGdFA01qPKzjNKbz8pljXf2QgRj EICyHWK4iWpoBZtsz5Yv ZXI (more content not included)... Normal [facility] C Bloodon 10-18-2023 C Blood No growth at 5 Days Normal [place] Comment on above: Performed By: #### 2 [id number], [id number] #### [facility] (DEFAULT) [address] [place] [address] Consent Formson 10-17-2023 Consent Forms [id number]#1.00[facility] Outside Recordson 10-17-2023 Outside Records [id number]#1.00[facility] Provider Orderson 10-17-2023 Provider Orders [id number]#1.00[facility] Telemetry Strips [id number]#1.00[facility] Therapeutic Documentation on 10-16-2023 Therapeutic Documentation [id number]#1.00[facility] C Bloodon 10-16-2023 C Blood patient went to CAT scan Nurse from [address] [place] [address] will call when patient is back to her room @1440 nabil No growth at 5 Days [facility] Comment on above: Performed By: #### 6 [id number] ####[facility] (DEFAULT)[address] [place] [id number] CRPon 10-16-2023 CRP 3.1 mg/dL High <=0.5 [facility] Comment on above: Performed By: #### 2 [id number] #### [facility] (DEFAULT) [address] [place] [id number] Inpatient Patient Summaryon 10-16-2023 Inpatient Patient Summary [address] [address] Patient Discharge Instructions Name: ROMEO NGUYỄN : 1940 Patient Address: [address] [place] [address] Primary Care Provider: Name: SANTIAGO OTTO After you are discharged if you find you have any questions, please, call [phone] ext [phone] to speak to a nurse. The Pharmacy at [facility] is open Sunday through Sunday from [...] alcohol and/or drug addiction problems; contact the [facility] 28/05 Crisis Hotline -Text 4HMBV to 099216. If you received any narcotics, sedation, or [...] business decisions or sign any legal documents [facility] would like to thank you for allowing us to assist you with your healthcare needs. The following includes patient education materials and information regarding your injury/illness. ROMEO NGUYỄN has been given the following list of follow-up instructions, prescriptions, and patient education materials: Follow-up Instructions With: Address: When: JOB AGUILAR DO [address] [facility] [address] [place] [address] Within 10 to 12 days Comments: orthopedic follow up With: Address: When: Jamal Vizcarra [address] [place] [address], [address] [place] [address] Business (1) 10/26/2023 10:30 AM [...] not included)... [facility] Pharmacy Noteon 10-16-2023 Pharmacy Note I have [...] list against external fill history and available [employer] medication history to ensure accuracy. Reviewed regimen upon discharge which is appropriate and correct. 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 [Electronically Signed on: 10/16/2023 11:12 EST] Jamal Butler [Verified on: 10/16/2023 11:12 EST] Jamal Butler Normal [facility] Sed Rateon 10-16-2023 Sed Rate 83 mm/hr High 0-20 [facility] Comment on above: Performed By: #### 2 828541, [id number] #### [facility] (DEFAULT) [address] [place] [address] .Auto Diff 1on 10-15-2023 Auto Sublette % 9 % Normal -12 [facility] Comment on above: Performed By: #### 2 216903, [id number], 83571233, 2825842, 8711338 #### [facility] (DEFAULT) [address] [place] [address] Baso Abs# 0.0 x10 Normal 0.0-0.2 [facility] Comment on above: Performed By: #### 2 545674, [id number], 40825318, 5828699, 2804038 #### [facility] (DEFAULT) [address] [place] [address] 92502 Basophils/100 WBC (Bld) 0.2 % Normal 0.2-2.0 [facility] Comment on above: Performed By: #### 2 690165, [id number], 58720668, 0492685, 2084190 #### [facility] (DEFAULT) [address] [place] [address] 35070 Eos Abs# 0.1 x10 Normal 0.0-0.4 [facility] Comment on above: Performed By: #### 2 515361, 9458092166, 47881999, 7025155, 6266435 #### [facility] (DEFAULT) [address] [place] [address] 97691 Eosinophils/100 WBC (Bld) 0.8 % Low 0.9-4.0 [facility] Comment on above: Performed By: #### 2 075438, 2913772509, 89828699, 6530525, 2794609 #### [facility] (DEFAULT) [address] [place] [address] 18883 Lymph Abs# 1.1 x10 Low 1.3-2.9 [facility] Comment on above: Performed By: #### 2 174183, 5802129783, 86466974, 8540289, 6650316 #### [facility] (DEFAULT) [address] [place] [address] 76289 Lymphocytes/100 WBC (Bld) 13 % Low 14-48 [facility] Comment on above: Performed By: #### 2 464929, 2564563454, 08112229, 8605690, 2309696 #### [facility] (DEFAULT) [address] [place] [address] 28466 Sublette Abs# 0.8 x10 Normal 0.0-0.8 [facility] Comment on above: Performed By: #### 2 954996, 9046310795, 63014016, 9511286, 0487773 #### [facility] (DEFAULT) [address] [place] [address] 25861 Neut Abs# 6.5 x10 Normal 1.5-9.2 [facility] Comment on above: Performed By: #### 2 158274, 6664730937, 89284160, 2365032, 4952655 #### [facility] (DEFAULT) [address] [place], [place] [address] Neutrophils/100 WBC (Bld) 76 % Normal 44-88 [facility] Comment on above: Performed By: #### 2 785635, 3086809548, 27528659, 3326982, 5860346 #### [facility] (DEFAULT) [address] [place] [address] BMP Standardon 10-15-2023 Breakpoint Chem Normal [facility] Comment on above: Performed By: #### 2 508290, [id number], 14714979, 4742462, 0380642 #### [facility] (DEFAULT) [address] [place] [address] 31075 eGFR Non AA >60 Invalid Interpretation Code [facility] Comment on above: Performed By: #### 2 402646, [id number], 23709098, 8665823, 6103162 #### [facility] (DEFAULT) [address] [place] [address] 77896 eGFR AA >60 Invalid Interpretation Code [facility] Comment on above: Performed By: #### 2 280892, [id number], 49768651, 9786394, 7367977 #### [facility] (DEFAULT) [address] [place] [address] 24575 Anion gap [Moles/Vol] 7.4 mmol/L Normal 5.0-19.0 [facility] Comment on above: Performed By: #### 2 883153, 2813277340, 55896015, 3392922, 1484166 #### [facility] (DEFAULT) [address] [place] [address] 48148 Calcium [Mass/Vol] 8.8 mg/dL Low 8.9-10.3 [facility] Comment on above: Performed By: #### 2 617601, 2938305135, 83419027, 6006051, 5045618 #### [facility] (DEFAULT) [address] [place] [address] 79759 Chloride [Moles/Vol] 106 mmol/L Normal 101-111 [facility] Comment on above: Performed By: #### 2 410194, 7163211410, 40178016, 9340757, 1146050 #### [facility] (DEFAULT) [address] [place] [address] 34465 CO2 [Moles/Vol] 26 mmol/L Normal 21-32 [facility] Comment on above: Performed By: #### 2 285824, 7607412360, 00107748, 1739472, 8857973 #### [facility] (DEFAULT) [address] [place] [address] 46394 Creatinine [Mass/Vol] 0.88 mg/dL Normal 0.60-1.30 [facility] Comment on above: Performed By: #### 2 797108, 2672377259, 70551892, 2713975, 7116167 #### [facility] (DEFAULT) [address] [place] [address] 30417 Glucose [Mass/Vol] 109.0 mg/dL Normal 74.0-118.0 [place] Comment on above: Performed By: #### 2 186241, 8226687709, 53464054, 3573205, 7107523 #### [facility] (DEFAULT) [address] [place] [address] 92498 Osmolality 273 mOsm/L Invalid Interpretation Code [facility] Comment on above: Performed By: #### 2 177339, 5820378882, 21222862, 8945670, 6527064 #### [facility] (DEFAULT) [address] [place] [address] 33655 Potassium [Moles/Vol] 4.4 mmol/L Normal 3.6-5.1 [facility] Comment on above: Performed By: #### 2 356675, 5147055656, 24400785, 9821595, 6908887 #### [facility] (DEFAULT) [address] [place] [address] 05006 Sodium [Moles/Vol] 135.0 mmol/L Low 136.0-144.0 [facility] Comment on above: Performed By: #### 2 738881, 9958541940, 26586461, 6315703, 0648177 #### [facility] (DEFAULT) [address] [place] [address] Urea nitrogen [Mass/Vol] 19 mg/dL Normal 8-26 [facility] Comment on above: Performed By: #### 2 111886, 7143611562, 63524399, 1967138, 6916676 #### [facility] (DEFAULT) [address] [place] [address] Urea nitrogen/Creatinine [Mass ratio] 21.5 mg/mg High 4.6-16.2 [facility] Comment on above: Performed By: #### 2 987560, 5058872276, 32498051, 0993171, 6749160 #### [facility] (DEFAULT) [address] [place] [address] CBC w/ Auto Diffon Erythrocyte distribution width (RBC) [Ratio] 15.3 % High 11.5-15.0 [facility] Comment on above: Performed By: #### 2 136740, 2554840142, 81060811, 4771791, 2605362 #### [facility] (DEFAULT) [address] [place] [address] Hematocrit (Bld) [Volume fraction] 29.8 % Low 33.7-40.4 [facility] Comment on above: Performed By: #### 2 592221, 4287928635, 32782225, 6297943, 8750905 #### [facility] (DEFAULT) [address] [place] [address] Hemoglobin (Bld) [Mass/Vol] 9.9 g/dL Low 11.3-15.9 [facility] Comment on above: Performed By: #### 2 071323, 2579493042, 91825310, 1029447, 3865428 #### [facility] (DEFAULT) [address] [place] [address] Man Diff? Auto Invalid Interpretation Code [facility] Comment on above: Performed By: #### 2 973599, 0515593068, 01994373, 5680502, 4224509 #### [facility] (DEFAULT) [address] [place] [address] MCH (RBC) [Entitic mass] 30 pg Normal 24-34 [facility] Comment on above: Performed By: #### 2 290048, 0353869122, 94838355, 0847127, 7050705 #### [facility] (DEFAULT) [address] [place] [address] MCHC (RBC) [Mass/Vol] 33 g/dL Normal 26-37 [facility] Comment on above: Performed By: #### 2 973957, 3574104408, 38632129, 4580183, 7802696 #### [facility] (DEFAULT) [address] [place] [address] MCV (RBC) [Entitic vol] 90 fL Normal 81-100 [facility] Comment on above: Performed By: #### 2 800814, 0780858646, 55361437, 5037961, 9874522 #### [facility] (DEFAULT) [address] [place] [address] Platelet 363 x10 Normal 138-427 [facility] Comment on above: Performed By: #### 2 630707, 4365380642, 99324995, 0444575, 3236497 #### [facility] (DEFAULT) [address] [place] [address] Platelet mean volume (Bld) [Entitic vol] 6.1 fL Low 6.3-10.2 [facility] Comment on above: Performed By: #### 2 843664, 9264245856, 42933915, 0220091, 8972645 #### [facility] (DEFAULT) [address] [place] [address] RBC 3.31 x10 Low 3.70-5.30 [facility] Comment on above: Performed By: #### 2 730592, 8677249911, 84059719, 4730997, 3637076 #### [facility] (DEFAULT) [address] [place] [address] 01703 WBC 8.5 x10 Normal 3.5-10.5 [facility] Comment on above: Performed By: #### 2 800217, 1842752699, 32122669, 9671344, 2129349 #### [facility] (DEFAULT) [address] [place] [address] 12415 CRPon 10-15-2023 CRP 2.1 mg/dL High <=0.5 [facility] Comment on above: Performed By: #### 2 954081, 8773271323, 85654665, 6882121, 2363746 ####[facility] (DEFAULT)[address] [place] [address] 27649 Nutrition Noteon 10-15-2023 Nutrition Note Per intake records, Pts avg 75+% of meals. Last BM 10/13. 10/15 labs reviewed, CRP/sed rate slowly improving. PICC line in place for IV atb. Discharge anticipated for tomorrow. Normal [facility] Sed Rateon 10-15-2023 Sed Rate 78 mm/hr High 0-20 [facility] Comment on above: Performed By: #### 2 621565, 7558573975, 72488482, 3817756, 5640792 ####[facility] (DEFAULT)[address] [place] [address] 24753 XR Chest 1 View Frontalon XR Chest [...] 10/15/23 1:04 pm Technologist: Peggy LOMELI Normal [facility] C Fluidon 10-14-2023 C Fluid Moderate growth [...] <=0.5 Verified Vanc S 0.5 Verified Normal [facility] Comment on above: Performed By: #### 2 136354, 5822326 #### [facility] (DEFAULT) [address] [place] [address] CRPon 10-14-2023 CRP 1.8 mg/dL High <=0.5 [facility] Comment on above: Performed By: #### 2 037649, 6047148 #### [facility] (DEFAULT) [address] [place] [address] Sed Rateon 10-14-2023 Sed Rate 74 mm/hr High 0-20 [facility] Comment on above: Performed By: #### 2 865986, 4205089 #### [facility] (DEFAULT) [address] [place] [address] .Auto Diff 1on 10-13-2023 Auto Sublette % 5 % Normal - [facility] Comment on above: Performed By: #### 2 624474, 0981126 #### [facility] (DEFAULT) [address] [place] [address] Baso Abs# 0.0 x10 Normal 0.0-0.2 [facility] Comment on above: Performed By: #### 2 407980, 5207193 #### [facility] (DEFAULT) [address] [place] [address] Basophils/100 WBC (Bld) 0.2 % Normal 0.2-2.0 [facility] Comment on above: Performed By: #### 2 557756, 2039941 #### [facility] (DEFAULT) [address] [place] [address] Eos Abs# 0.0 x10 Normal 0.0-0.4 [facility] Comment on above: Performed By: #### 2 009323, 1962498 #### [facility] (DEFAULT) [address] [place] [address] Eosinophils/100 WBC (Bld) 0.1 % Low 0.9-4.0 [facility] Comment on above: Performed By: #### 2 435017, 1860933 #### [facility] (DEFAULT) [address] [place] [address] Lymph Abs# 1.0 x10 Low 1.3-2.9 [facility] Comment on above: Performed By: #### 2 403852, 1084872 #### [facility] (DEFAULT) [address] [place] [address] Lymphocytes/100 WBC (Bld) 9 % Low 14-48 [facility] Comment on above: Performed By: #### 2 065525, 6107020 #### [facility] (DEFAULT) [address] [place] [address] Sublette Abs# 0.6 x10 Normal 0.0-0.8 [facility] Comment on above: Performed By: #### 2 931386, 8034819 #### [facility] (DEFAULT) [address] [place] [address] Neut Abs# 10.1 x10 High 1.5-9.2 [facility] Comment on above: Performed By: #### 2 186318, 1078898 #### [facility] (DEFAULT) [address] [place] [address] Neutrophils/100 WBC (Bld) 86 % Normal 44-88 [facility] Comment on above: Performed By: #### 2 164771, 1559544 #### [facility] (DEFAULT) [address] [place] [address] BMP Standardon 10-13-2023 Breakpoint Chem Normal [facility] Comment on above: Performed By: #### 2 423462, 9824330 #### [facility] (DEFAULT) [address] [place] [address] 87394 eGFR Non AA >60 Invalid Interpretation Code [facility] Comment on above: Performed By: #### 2 622091, 7840890 #### [facility] (DEFAULT) [address] [place] [address] 46344 eGFR AA >60 Invalid Interpretation Code [facility] Comment on above: Performed By: #### 2 618626, 9302214 #### [facility] (DEFAULT) [address] [place] [address] 82007 Calcium [Mass/Vol] 8.5 mg/dL Low 8.9-10.3 [facility] Comment on above: Performed By: #### 2 595162, 4663431 #### [facility] (DEFAULT) [address] [place] [address] 91621 Chloride [Moles/Vol] 105 mmol/L Normal 101-111 [facility] Comment on above: Performed By: #### 2 337811, 9715129 #### [facility] (DEFAULT) [address] [place] [address] 55709 CO2 [Moles/Vol] 24 mmol/L Normal 21-32 [facility] Comment on above: Performed By: #### 2 456569, 8714121 #### [facility] (DEFAULT) [address] [place] [address] 76911 Creatinine [Mass/Vol] 0.76 mg/dL Normal 0.60-1.30 [facility] Comment on above: Performed By: #### 2 418996, 1964217 #### [facility] (DEFAULT) [address] [place] [address] 10988 Glucose [Mass/Vol] 113.0 mg/dL Normal 74.0-118.0 [place] Comment on above: Performed By: #### 2 788558, 3631636 #### [facility] (DEFAULT) [address] [place] [address] 64741 Potassium [Moles/Vol] 4.9 mmol/L Normal 3.6-5.1 [facility] Comment on above: Performed By: #### 2 015919, 1161207 #### [facility] (DEFAULT) [address] [place] [address] 10455 Sodium [Moles/Vol] 135.0 mmol/L Low 136.0-144.0 [facility] Comment on above: Performed By: #### 2 972353, 1439084 #### [facility] (DEFAULT) [address] [place] [address] 01742 Urea nitrogen [Mass/Vol] 33 mg/dL High 8-26 [facility] Comment on above: Performed By: #### 2 150556, 9946278 #### [facility] (DEFAULT) [address] [place] [address] 10089 Anion gap [Moles/Vol] 10.9 mmol/L Normal 5.0-19.0 [facility] Comment on above: Performed By: #### 2 521657, 1436325 #### [facility] (DEFAULT) [address] [place] [address] 50114 Osmolality 278 mOsm/L Invalid Interpretation Code [facility] Comment on above: Performed By: #### 2 809646, 5826070 #### [facility] (DEFAULT) [address] [place] [address] 59651 Urea nitrogen/Creatinine [Mass ratio] 43.4 mg/mg High 4.6-16.2 [facility] Comment on above: Performed By: #### 2 492536, 8248410 #### [facility] (DEFAULT) [address] [place] [address] 87208 C Bloodon 10-13-2023 C Blood Bacillus species No ANICETO performed on this organism Results called to Romeo Leonard RN at 2S by CDD and results read back for confirmation on 10/12/2023 05:12:42 Normal [facility] Comment on above: Performed By: #### 2 609527, 3101060 #### [facility] (DEFAULT) [address] [place] [address] 30153 CBC w/ Auto Diffon 3 Erythrocyte distribution width (RBC) [Ratio] 15.0 % Normal 11.5-15.0 [facility] Comment on above: Performed By: #### 2 492869, 2502641 #### [facility] (DEFAULT) [address] [place] [address] Hematocrit (Bld) [Volume fraction] 26.7 % Low 33.7-40.4 [facility] Comment on above: Performed By: #### 2 367556, 8399141 #### [facility] (DEFAULT) [address] [place] [address] Hemoglobin (Bld) [Mass/Vol] 8.9 g/dL Low 11.3-15.9 [facility] Comment on above: Performed By: #### 2 936330, 5203303 #### [facility] (DEFAULT) [address] [place] [address] Man Diff? Auto Invalid Interpretation Code [facility] Comment on above: Performed By: #### 2 463455, 4191309 #### [facility] (DEFAULT) [address] [place] [address] MCH (RBC) [Entitic mass] 30 pg Normal 24-34 [facility] Comment on above: Performed By: #### 2 748368, 6857452 #### [facility] (DEFAULT) [address] [place] [address] MCHC (RBC) [Mass/Vol] 33 g/dL Normal 26-37 [facility] Comment on above: Performed By: #### 2 776350, 4828889 #### [facility] (DEFAULT) [address] [place] [address] MCV (RBC) [Entitic vol] 89 fL Normal 81-100 [facility] Comment on above: Performed By: #### 2 123425, 2926162 #### [facility] (DEFAULT) [address] [place] [address] Platelet 386 x10 Normal 138-427 [facility] Comment on above: Performed By: #### 2 388012, 3165393 #### [facility] (DEFAULT) [address] [place] [address] Platelet mean volume (Bld) [Entitic vol] 6.1 fL Low 6.3-10.2 [facility] Comment on above: Performed By: #### 2 576314, 6923725 #### [facility] (DEFAULT) [address] [place] [address] RBC 3.00 x10 Low 3.70-5.30 [facility] Comment on above: Performed By: #### 2 576077, 0959627 #### [facility] (DEFAULT) [address] [place] [address] WBC 11.8 x10 High 3.5-10.5 [facility] Comment on above: Performed By: #### 2 382856, 6982839 #### [facility] (DEFAULT) [address] [place] [address] CRPon 10-13-2023 CRP 3.2 mg/dL High <=0.5 [facility] Comment on above: Performed By: #### 2 488214, 6452410 #### [facility] (DEFAULT) [address] [place] [address] Sed Rateon 10-13-2023 Sed Rate 82 mm/hr High 0-20 [facility] Comment on above: Performed By: #### 2 218684, 3178417 #### [facility] (DEFAULT) [address] [place] [address] .Auto Diff 1on 10-12-2023 Auto Sublette % 6 % Normal -12 [facility] Comment on above: Performed By: #### 1 1499544, [id number], 5298240 ####[facility] (DEFAULT)[address] [place] [address] Baso Abs# 0.0 x10 Normal 0.0-0.2 [facility] Comment on above: Performed By: #### 1 4840783, [id number], 2545667 ####[facility] (DEFAULT)[address] [place] [address] Basophils/100 WBC (Bld) 0.1 % Low 0.2-2.0 [facility] Comment on above: Performed By: #### 1 6630744, 1732944945, 6045754 ####[facility] (DEFAULT)[address] [place] [address] 53002 Eos Abs# 0.0 x10 Normal 0.0-0.4 [facility] Comment on above: Performed By: #### 1 2659219, 4604135889, 2905793 ####[facility] (DEFAULT)[address] [place] [address] 52691 Eosinophils/100 WBC (Bld) 0.0 % Low 0.9-4.0 [facility] Comment on above: Performed By: #### 1 3069331, 2367720340, 7837672 ####[facility] (DEFAULT)[address] [place] [address] 01756 Lymph Abs# 0.7 x10 Low 1.3-2.9 [facility] Comment on above: Performed By: #### 1 3036336, 6089001413, 0343728 ####[facility] (DEFAULT)[address] [place] [address] 67820 Lymphocytes/100 WBC (Bld) 6 % Low 14-48 [facility] Comment on above: Performed By: #### 1 5780062, 3196074742, 0100285 ####[facility] (DEFAULT)[address] [place] [address] 07359 Sublette Abs# 0.7 x10 Normal 0.0-0.8 [facility] Comment on above: Performed By: #### 1 7611885, 8143772797, 5229448 ####[facility] (DEFAULT)[address] [place] [address] 32453 Neut Abs# 10.3 x10 High 1.5-9.2 [facility] Comment on above: Performed By: #### 1 7306129, 0387548083, 0028710 ####[facility] (DEFAULT)[address] [place] [address] 05140 Neutrophils/100 WBC (Bld) 88 % Normal 44-88 [facility] Comment on above: Performed By: #### 1 1777505, 0687510441, 1261168 ####[facility] (DEFAULT)[address] [place] [address] 29083 CBC w/ Auto Diffon 3 Erythrocyte distribution width (RBC) [Ratio] 15.5 % High 11.5-15.0 [facility] Comment on above: Performed By: #### 1 4446254, 8161003685, 5247792 ####[facility] (DEFAULT)[address] [place] [address] 42120 Hematocrit (Bld) [Volume fraction] 29.6 % Low 33.7-40.4 [facility] Comment on above: Performed By: #### 1 1612377, 6466377667, 6897008 ####[facility] (DEFAULT)[address] [place] [address] 67698 Hemoglobin (Bld) [Mass/Vol] 10.1 g/dL Low 11.3-15.9 [facility] Comment on above: Performed By: #### 1 9310051, 1139655085, 6236811 ####[facility] (DEFAULT)[address] [place] [address] 13126 Man Diff? Auto Invalid Interpretation Code [facility] Comment on above: Performed By: #### 1 1592061, [id number], 3785489 ####[facility] (DEFAULT)[address] [place] [address] 03484 MCH (RBC) [Entitic mass] 30 pg Normal 24-34 [facility] Comment on above: Performed By: #### 1 7162635, 9245135385, 3686290 ####[facility] (DEFAULT)[address] [place] [address] 70985 MCHC (RBC) [Mass/Vol] 34 g/dL Normal 26-37 [facility] Comment on above: Performed By: #### 1 3314730, 8329640200, 0143812 ####[facility] (DEFAULT)[address] [place] [address] 33947 MCV (RBC) [Entitic vol] 88 fL Normal 81-100 [facility] Comment on above: Performed By: #### 1 1070410, 3352982455, 6186889 ####[facility] (DEFAULT)[address] [place] [address] 69629 Platelet 434 x10 High 138-427 [facility] Comment on above: Performed By: #### 1 4082849, 4489481117, 4087222 ####[facility] (DEFAULT)[address] [place] [address] Platelet mean volume (Bld) [Entitic vol] 6.2 fL Low 6.3-10.2 [facility] Comment on above: Performed By: #### 1 0234771, 9887900051, 7377320 ####[facility] (DEFAULT)[address] [place] [address] RBC 3.38 x10 Low 3.70-5.30 [facility] Comment on above: Performed By: #### 1 [id number], [id number], [id number] ####[facility] (DEFAULT)[address] [place] [address] WBC 11.7 x10 High 3.5-10.5 [facility] Comment on above: Performed By: #### 1 [id number], [id number], [id number] ####[facility] (DEFAULT)[address] [place] [address] CMP Standardon 10-12-2023 eGFR Non AA 57 mL/min/1.73m2 Invalid Interpretation Code [facility] Comment on above: Performed By: #### 1 [id number], [id number], [id number] ####[facility] (DEFAULT)[address] [place] [address] eGFR AA >60 Invalid Interpretation Code [facility] Comment on above: Performed By: #### 1 [id number], [id number], [id number] ####[facility] (DEFAULT)[address] [place] [address] Albumin [Mass/Vol] 2.4 g/dL Low 3.5-5.0 [facility] Comment on above: Performed By: #### 1 [id number], [id number], [id number] ####[facility] (DEFAULT)[address] [place] [address] Albumin/Globulin [Mass ratio] 0.6 {ratio} Low 1.4-2.6 [facility] Comment on above: Performed By: #### 1 [id number], [id number], [id number] ####[facility] (DEFAULT)[address] [place] [address] Alk Phos 105 IU/L High 32-91 [facility] Comment on above: Performed By: #### 1 [id number], [id number], [id number] ####[facility] (DEFAULT)[address] [place] [address]303 ALT [Catalytic activity/Vol] 19.0 U/L Normal 14.0-54.0 [facility] Comment on above: Performed By: #### 1 [id number], [id number], [id number] ####[facility] (DEFAULT)[address] [place] [address]85 Anion gap [Moles/Vol] 14.7 mmol/L Normal 5.0-19.0 [facility] Comment on above: Performed By: #### 1 [id number], [id number], [id number] ####[facility] (DEFAULT)[address] [place] [address] 24988 AST [Catalytic activity/Vol] 17 U/L Normal 15-41 [facility] Comment on above: Performed By: #### 1 [id number], [id number], 2875957 ####[facility] (DEFAULT)[address] [place] [address] 29235 Bili Total 0.6 mg/dL Normal 0.3-1.2 [facility] Comment on above: Performed By: #### 1 1779496, [id number], 7398019 ####[facility] (DEFAULT)[address] [place] [address] 15837 Calcium [Mass/Vol] 8.8 mg/dL Low 8.9-10.3 [facility] Comment on above: Performed By: #### 1 2786523, 6982287323, 2203287 ####[facility] (DEFAULT)[address] [place] [address] 36066 Chloride [Moles/Vol] 103 mmol/L Normal 101-111 [facility] Comment on above: Performed By: #### 1 5739445, 2038489095, 3832233 ####[facility] (DEFAULT)[address] [place] [address] 45652 CO2 [Moles/Vol] 25 mmol/L Normal 21-32 [facility] Comment on above: Performed By: #### 1 5931336, 5225536356, 3196151 ####[facility] (DEFAULT)[address] [place] [address] 17715 Creatinine [Mass/Vol] 0.94 mg/dL Normal 0.60-1.30 [facility] Comment on above: Performed By: #### 1 3330403, 7838512555, 1991079 ####[facility] (DEFAULT)[address] [place] [address] 06939 Globulin (S) [Mass/Vol] 3.5 g/dL Normal 1.5-4.3 [facility] Comment on above: Performed By: #### 1 9653142, 0335230844, 6138305 ####[facility] (DEFAULT)[address] [place] [address] 19130 Glucose [Mass/Vol] 161.0 mg/dL High 74.0-118.0 [place] Comment on above: Performed By: #### 1 9936193, 4273651418, 2256501 ####[facility] (DEFAULT)[address] [place] [address] 88421 Osmolality 286 mOsm/L Invalid Interpretation Code [facility] Comment on above: Performed By: #### 1 5592441, 6444949571, 9097678 ####[facility] (DEFAULT)[address] [place] [address] 23156 Potassium [Moles/Vol] 4.7 mmol/L Normal 3.6-5.1 [facility] Comment on above: Performed By: #### 1 4723759, 4411849881, 0730532 ####[facility] (DEFAULT)[address] [place] [address] 81630 Protein [Mass/Vol] 5.9 g/dL Low 6.5-8.1 [facility] Comment on above: Performed By: #### 1 8051432, 7986852638, 4170723 ####[facility] (DEFAULT)[address] [place] [address] 86421 Sodium [Moles/Vol] 138.0 mmol/L Normal 136.0-144.0 [facility] Comment on above: Performed By: #### 1 7920479, 2193836681, 9851759 ####[facility] (DEFAULT)[address] [place] [address] Urea nitrogen [Mass/Vol] 32 mg/dL High 8-26 [facility] Comment on above: Performed By: #### 1 8904128, [id number], 1346445 ####[facility] (DEFAULT)[address] [place] [address] Urea nitrogen/Creatinine [Mass ratio] 34.0 mg/mg High 4.6-16.2 [facility] Comment on above: Performed By: #### 1 9338269, 6084432080, 1123900 ####[facility] (DEFAULT)[address] [place] [address] CRPon 10-12-2023 CRP 7.2 mg/dL High <=0.5 [facility] Comment on above: Performed By: #### 2 301240, [id number] #### [facility] (DEFAULT) [address] [place] [address] Consent Formson 10-12-2023 Consent Forms [id number] [facility] Nutrition Noteon 10-12-2023 Nutrition Note Pt admitted w/ Rt kn ee pain, recent washout. CT scan noting septic arthritis, IV atb initiated. Pt placed on a Regular diet, so far eating 100%. Admit wt 60.8kg no wt hx on file, denied any wt changes per landcare facilitator assessment. No chewing/swallowing problems identified. Labs reviewed [...] To follow. [facility] Pharmacy Noteon 10-12-2023 Pharmacy Note This is [...] Andrés Grover [facility] Procalcitoninon 10-12-2023 Procalcitonin 0.109 ng/mL Low 0.500-1.000 [facility] Comment on above: Performed By: #### 7 [id number] #### [facility] (DEFAULT) [address] [place] [address] 86572 Sed Rateon 10-12-2023 Sed Rate 74 mm/hr High 0-20 [facility] Comment on above: Performed By: #### 2 859719, 7012375 #### [facility] (DEFAULT) [address] [place] [address] 09243 US Echocardiogram Completeon 10-12-2023 US Echocardiogram Complete [...] Junction2.89 cm F: 2.3 - 2.9 LV Jxkm197.22 g LVOT Diameter 2.09 cm IVC1.25 (<= [...] Single Plane 4 CH 25.69 mLBiplane LA Kblwes18.33 mL Single Plane 2 CH67.19 mLLA ESV Index29.65 mL/m2 Right Atrium Area Systole RA Systolic Area A4C9.10 cm2RA Systolic Vol A4C19.30 mL Aortic Valve AoV Peak Velocity1.30 m/sLVOT Peak Velocity1.04 m/s AO Mean Velocity0.86 m/sLVOT Mean Velocity0.61 m/s AO Peak PG6.80 mmHgLVOT Peak PG4.31 mmHg AO Mean PG3.48 mmHgLVOT Mean PG1.86 mmHg AO V2 VTI22.79 cmLVOT V1 VTI20.10 cm ESTUARDO (Vmax)2.73 ws8INDD Area 3.43 cm2 ESTUARDO (VTI)3.03 cm2SV (LVOT) 68.96 mL Indexed ESTUARDO (VTI)1.85 cm2/m2AI [place] 2.40 m/s2 AI HFF409.11 ms Mitral Valve MV Max Wzhzsciy001.09 m/sMV PHT58.48 ms MV E Max Velocity0.55 m/sMVA (PHT)3.76 cm2 MV A Max Velocity0.67 m/sMR BWD813.58 cm E/A Ratio0.8MR Peak Velocity5.74 m/s MV Decel. Stbs974.67 ms TDI Med e' Velocity5.08 cm/sMV E / Medial e' 10.72 Lat e' Velocity6.45 cm/sMV E / Lateral e' 8.45 TV S'16.13 cm/s Pulmonary Valve PV Peak Velocity0.78 m/sPV Peak PG2.43 mmHg MD End Diastolic Carlos.62.56 m/s PV Mean PG1.46 mmHg Tricuspid Valve TR Peak Velocity3.10 m/sRAP Estimate3.00 mmHg TR Peak PG38.55 dpRcEPNA31.55 mmHg Final Signed (Electronic Signature): Marquis Pulido MD 10/12/23 3:45 pm Technologist: ERA [facility] XR Chest 1 View Frontalon XR Chest [...] SANGEETA SIMPSON [facility] .Auto Diff 10-11-2023 Auto Sublette % 7 % Normal 11-16 [facility] Comment on above: Performed By: #### 2 428964, 9054239786, 75371242, 3641831907, 7289069640, 3985937347, 7337085953, 6440961 ####[facility] (DEFAULT)[address] [place] [address] Baso Abs# 0.1 x10 Normal 0.0-0.2 [facility] Comment on above: Performed By: #### 2 759643, 5280245361, 18784691, 7438843666, 7403687328, 6777654278, 7734420167, 9309952 ####[facility] (DEFAULT)[address] [place] [address] 80790 Basophils/100 WBC (Bld) 0.4 % Normal 0.2-2.0 [facility] Comment on above: Performed By: #### 2 227238, 0861694515, 36537586, 6744329489, 7903465161, 9513096099, 2558997250, 0853365 ####[facility] (DEFAULT)[address] [place] [address] 77287 Eos Abs# 0.0 x10 Normal 0.0-0.4 [facility] Comment on above: Performed By: #### 2 116009, 0029431201, 83018845, 2646489131, 0740976344, 8679759140, 4735168868, 9907724 ####[facility] (DEFAULT)[address] [place] [address] 88987 Eosinophils/100 WBC (Bld) 0.2 % Low 0.9-4.0 [facility] Comment on above: Performed By: #### 2 616207, 4594347096, 25468147, 2322565998, 6903286702, 8085521395, 4022883059, 2602741 ####[facility] (DEFAULT)[address] [place] [address] 96765 Lymph Abs# 1.2 x10 Low 1.3-2.9 [facility] Comment on above: Performed By: #### 2 510093, 9269565873, 58270797, 7574890809, 1637929869, 2386771522, 2665287015, 4186059 ####[facility] (DEFAULT)[address] [place] [address] 80178 Lymphocytes/100 WBC (Bld) 8 % Low 14-48 [facility] Comment on above: Performed By: #### 2 750753, 4226395031, 77211437, 0348621721, 2940719052, 5366414899, 2335513793, 1009676 ####[facility] (DEFAULT)[address] [place] [address] Sublette Abs# 1.1 x10 High 0.0-0.8 [facility] Comment on above: Performed By: #### 2 020389, 7968844576, 25175656, 8650213202, 5888490769, 9401811335, 4280466671, 8856741 ####[facility] (DEFAULT)[address] [place] [address] Neut Abs# 13.6 x10 High 1.5-9.2 [facility] Comment on above: Performed By: #### 2 977383, 8552450656, 98851073, 8528878104, 5057187627, 9070079935, 0375520451, 3682867 ####[facility] (DEFAULT)[address] [place] [address] Neutrophils/100 WBC (Bld) 85 % Normal 44-88 [facility] Comment on above: Performed By: #### 2 450718, 3025035662, 51778819, 6145438716, 3195889121, 3322514257, 7355448198, 1577918 ####[facility] (DEFAULT)[address] [place], [place] [address] Anesthesia Noteon 10-11-2023 Anesthesia Note Patient: ROMEO NGUYỄN Age: 83 years Sex: FEMALE : [...] Dennis DO [facility] Anesthesia Note Patient: ROMEO NGUYỄN Age: 83 years Sex: FEMALE : [...] All Problems HTN (hypertension) / SNOMED CT 6722576344 / Confirmed Hypothyroidism / SNOMED CT 76160100 / Confirmed Histories Family History: No family history items have been selected or recorded. Procedure history: Appendectomy (749468910). History of total hysterectomy (1734305993). Knee (010804490). Comments: 10/11/2023 7:23 Radha Siddiqui RN total left Plantar fasciitis (031355748). Comments: 10/11/2023 7:26 Radha Siddiqui RN left Cholecystectomy (42253654). Metatarsal (49830333). Comments: 10/11/2023 7:25 Radha Siddiqui RN right [...] Oriented. Review / Management Laboratory Results Plan [place] [employer] Anesthesiologists#(ASA) physical status classification: Class [...] Dennis DO [facility] BF Cell Cnton 10-11-2023 Appear BF Cloudy [facility] Comment on above: Order Comment: right knee fluid Performed By: #### 6 206085 #### [facility] (DEFAULT) [address] [place] [address] 87377 Cell Cnt BF Type Synovial Fl [facility] Comment on above: Order Comment: right knee fluid Performed By: #### 6 050997 #### [facility] (DEFAULT) [address] [place] [address] 42848 Color BF Red [facility] Comment on above: Order Comment: right knee fluid Performed By: #### 6 130504 #### [facility] (DEFAULT) [address] [place] [address] 25600 RBC BF 554341 Invalid Interpretation Code [facility] Comment on above: Order Comment: right knee fluid Performed By: #### 6 965827 #### [facility] (DEFAULT) [address] [place] [address] [place] [address] Invalid Interpretation Code [facility] Comment on above: Order Comment: right knee fluid Performed By: #### 6 719610 #### [facility] (DEFAULT) [address] [place], [place] [address] BMP Standardon 10-11-2023 Breakpoint Chem Normal [facility] Comment on above: Performed By: #### 2 884807, 7225717697, 28311160, 7432015632, 5631447225, 5229019322, 9717696862, 3815443 ####[facility] (DEFAULT)[address] [place] [address] 15387 eGFR Non AA 57 mL/min/1.73m2 Invalid Interpretation Code [facility] Comment on above: Performed By: #### 2 578514, 8936835418, 77243821, 9458094765, 0345051388, 9409962078, 9136798203, 2176892 ####[facility] (DEFAULT)[address] [place] [address] 60647 eGFR AA >60 Invalid Interpretation Code [facility] Comment on above: Performed By: #### 2 472983, 5103834699, 02159537, 0816310595, 4220176228, 0934572230, 3120441991, 9639404 ####[facility] (DEFAULT)[address] [place] [address] 56087 Anion gap [Moles/Vol] 13.6 mmol/L Normal 5.0-19.0 [facility] Comment on above: Performed By: #### 2 278093, 6161495622, 26673623, 4718295823, 8379856845, 7326880902, 7587849601, 4455325 ####[facility] (DEFAULT)[address] [place] [address] 32551 Calcium [Mass/Vol] 9.6 mg/dL Normal 8.9-10.3 [facility] Comment on above: Performed By: #### 2 524290, 0353761849, 82668209, 9716322512, 7430752244, 9681775621, 9535854872, 7103386 ####[facility] (DEFAULT)[address] [place] [address] 80285 Chloride [Moles/Vol] 102 mmol/L Normal 101-111 [facility] Comment on above: Performed By: #### 2 759095, 9779129476, 30380157, 7979975747, 9770264011, 6517341751, 0386101985, 9072241 ####[facility] (DEFAULT)[address] [place] [address] 08534 CO2 [Moles/Vol] 25 mmol/L Normal 21-32 [facility] Comment on above: Performed By: #### 2 481453, 6846568479, 86639355, 7148077584, 3608828270, 4423321915, 2203297280, 7509046 ####[facility] (DEFAULT)[address] [place] [address] 77667 Creatinine [Mass/Vol] 0.93 mg/dL Normal 0.60-1.30 [facility] Comment on above: Performed By: #### 2 914821, 0168363716, 92306529, 7850268284, 5922425681, 3709721071, 4836204793, 9025126 ####[facility] (DEFAULT)[address] [place] [address] 92232 Glucose [Mass/Vol] 114.0 mg/dL Normal 74.0-118.0 [place] Comment on above: Performed By: #### 2 604059, 4094502984, 99126193, 5505793448, 2786379019, 8662331457, 2427450990, 4258766 ####[facility] (DEFAULT)[address] [place] [address] 13809 Osmolality 279 mOsm/L Invalid Interpretation Code [facility] Comment on above: Performed By: #### 2 729978, 2259264207, 00972836, 8226173054, 4048020289, 1734647653, 8147857998, 3386804 ####[facility] (DEFAULT)[address] [place] [address] 61395 Potassium [Moles/Vol] 4.6 mmol/L Normal 3.6-5.1 [facility] Comment on above: Performed By: #### 2 457440, 1882996590, 29383767, 0066964575, 4506696710, 2040474114, 0377134953, 9132726 ####[facility] (DEFAULT)[address] [place] [address] 57784 Sodium [Moles/Vol] 136.0 mmol/L Normal 136.0-144.0 [facility] Comment on above: Performed By: #### 2 909742, 9743268381, 23722760, 6492772344, 3616932734, 4290171048, 7141740583, 1794877 ####[facility] (DEFAULT)[address] [place] [address] 91375 Urea nitrogen [Mass/Vol] 30 mg/dL High 06-30 [facility] Comment on above: Performed By: #### 2 767623, 9670706118, 77365604, 1686250269, 2079249887, 8486919847, 1345907077, 8864422 ####[facility] (DEFAULT)[address] [place] [address] 85800 Urea nitrogen/Creatinine [Mass ratio] 32.2 mg/mg High 4.6-16.2 [facility] Comment on above: Performed By: #### 2 439690, 0108800593, 61926989, 4561095161, 0161798519, 3796482806, 3544936523, 9025864 ####[facility] (DEFAULT)[address] [place] [address] 11207 Body Fluid Diffon 10-11-2023 BF Bands % 2 Invalid Interpretation Code [facility] Comment on above: Order Comment: Right knee fluidVerbal order per Kelly Long Performed By: #### 2 540858144 ####[facility] (DEFAULT)[address] [place] [address] 71394 BF Baso % 0 Invalid Interpretation Code [facility] Comment on above: Order Comment: Right knee fluidVerbal order per Kelly Long Performed By: #### 2 577576498 ####[facility] (DEFAULT)[address] [place] [address] 38157 BF Eos % 0 Invalid Interpretation Code [facility] Comment on above: Order Comment: Right knee fluidVerbal order per Kelly Long Performed By: #### 2 555635504 ####[facility] (DEFAULT)[address] [place] [address] BF Lymph % 5 Invalid Interpretation Code [facility] Comment on above: Order Comment: Right knee fluidVerbal order per Kelly Long Performed By: #### 2 631710023 ####[facility] (DEFAULT)[address] [place] [address] BF Sublette % 0 Invalid Interpretation Code [facility] Comment on above: Order Comment: Right knee fluidVerbal order per Kelly Long Performed By: #### 2 136927568 ####[facility] (DEFAULT)[address] [place] [address] BF Segs % 93 Invalid Interpretation Code [facility] Comment on above: Order Comment: Right knee fluidVerbal order per Kelly Long Performed By: #### 2 [id number] ####[facility] (DEFAULT)[address] [place] [address] CBC w/ Auto Diffon 3 Erythrocyte distribution width (RBC) [Ratio] 15.3 % High 11.5-15.0 [facility] Comment on above: Performed By: #### 2 472224, 3929943686, 56257199, 8764981634, 7367841277, 9289793514, 8059796229, 2394167 ####[facility] (DEFAULT)[address] [place] [address] Hematocrit (Bld) [Volume fraction] 36.1 % Normal 33.7-40.4 [facility] Comment on above: Performed By: #### 2 104956, 3889406721, 01687134, 5590189462, 2693814294, 9758460634, 0466415360, 7621848 ####[facility] (DEFAULT)[address] [place] [address] Hemoglobin (Bld) [Mass/Vol] 11.8 g/dL Normal 11.3-15.9 [facility] Comment on above: Performed By: #### 2 660450, 9210833279, 73567531, 6696494576, 7753827024, 4691456526, 9739716458, 9891037 ####[facility] (DEFAULT)[address] [place] [address] Man Diff? Auto Invalid Interpretation Code [facility] Comment on above: Performed By: #### 2 709983, 6700301295, 79531167, 0769219110, 1515451567, 2043200509, 5934937952, 5223248 ####[facility] (DEFAULT)[address] [place] [address] 38213 MCH (RBC) [Entitic mass] 29 pg Normal 24-34 [facility] Comment on above: Performed By: #### 2 062589, 1447923968, 61301577, 0245452162, 8651816815, 0903808911, 1703554372, 6737269 ####[facility] (DEFAULT)[address] [place] [address] MCHC (RBC) [Mass/Vol] 33 g/dL Normal 26-37 [facility] Comment on above: Performed By: #### 2 094052, 2356974283, 01879582, 0935699974, 6194425579, 2674262947, 9661475278, 2683721 ####[facility] (DEFAULT)[address] [place] [address] 03215 MCV (RBC) [Entitic vol] 89 fL Normal 81-100 [facility] Comment on above: Performed By: #### 2 945363, 4993508145, 64416620, 3271391803, 6737273427, 7621505499, 4162523440, 5056687 ####[facility] (DEFAULT)[address] [place] [address] 14383 Platelet 492 x10 High 138-427 [facility] Comment on above: Performed By: #### 2 119749, 6129841363, 99466058, 1807286956, 4824582323, 6169950295, 2651012909, 6127242 ####[facility] (DEFAULT)[address] [place] [address] 79081 Platelet mean volume (Bld) [Entitic vol] 6.2 fL Low 6.3-10.2 [facility] Comment on above: Performed By: #### 2 383116, 6411198404, 27668418, 3087376806, 1019375968, 4122302706, 9776988454, 1569611 ####[facility] (DEFAULT)[address] [place] [address] RBC 4.05 x10 Normal 3.70-5.30 [facility] Comment on above: Performed By: #### 2 696024, 7235732106, 25964634, 5523431805, 4633612795, 8488717626, 0816249391, 5491238 ####[facility] (DEFAULT)[address] [place] [address] WBC 16.0 x10 High 3.5-10.5 [facility] Comment on above: Result Comment: Slid e Reviewed Performed By: #### 2 038644, 4537651581, 08376586, 4329540224, 8196693763, 9163401363, 7927559047, 1901469 ####[facility] (DEFAULT)[address] [place] [address] 26929 CRPon 10-11-2023 CRP 6.1 mg/dL High <=0.5 [facility] Comment on above: Performed By: #### 2 682613 ####[facility] (DEFAULT)[address] [place] [address] Lower Extremity w/ Contra st Righton [...] MD 10/11/23 4:31 pm Technologist: Jeanette LUKE [facility] Extra SSTon 10-11-2023 Tube Collected Yes Invalid Interpretation Code [facility] Comment on above: Performed By: #### 2 869590, 6490189822, 36549997, 3709781172, 9020869375, 3231515900, 1653634919, 8566171 ####[facility] (DEFAULT)[address] [place] [address] MAGR Intraoperative Recordon 10-11-2023 MAGR Intraoperative Record MAGR Intra-Op Record Summary Primary Physician: JOB AGUILAR DO Finalized Date/Time: 10/11/23 14:40:54 Pt. Name: MILANAROMEO/Sex: 1940 FEMALE Med Rec #: [id number] Physician: JOB AGUILAR DO Financial #: [id number] Pt. Type: I Room/Bed: [facility]/1 Admit/Disch: 10/11/23 06:57:39 - Institution: Case [...] Role Performed Surgeon - Primary Anesthesiologist of [place] Record Time In 10/11/23 11:40:00 10/11/23 11:40:00 10/11/23 11:40:00 Time Out 10/11/23 12:48:00 10/11/23 12:53:00 10/11/23 12:53:00 Procedure Arthroscopy Knee(Right) Arthroscopy Knee(Right) Arthroscopy Knee(Right) Last Modified By: Sandra Shepard RN, Barbara RN Long, Barbara RN 10/11/23 12:55:35 10/11/23 12:55:35 10/11/23 12:55:35 Entry 4 Entry 5 Case Attendee Gloria Saldaña CST, CST, Lauren M CSFA CSFA Role Performed Scrub Personnel Charge Hand Time In 10/11/23 11:40:00 10/11/23 11:40:00 Time [...] Time 10/11/23 12:09:00 Participants Sheryl Dennis DO, Sandra Shepard RN, Piotr MANAGER INTERFACE, Gloria MARTINEZ CSFA, Rina Muñoz CSFA Last [...] (O.80) Ye (more content not included)... [facility] PACU Record MAGR PACU Record Sum romeo Primary Physician: JOB AGUILAR DO Finalized Date/Time: 10/11/23 13:56:49 Pt. Name: ROMEO NGUYỄN ESTER Mariscal/Sex: 1940 FEMALE Med Rec #: [id number] Physician: JOB AGUILAR DO Financial #: [id number] Pt. Type: D Room/Bed: [facility]/1 Admit/Disch: 10/11/23 06:57:39 - Institution: PACU Case Times MAGR Entry 1 In PACU I 10/11/23 12:55:00 Discharge from PACU 10/11/23 13:40:00 I Last Modified By: Radha Seo RN 10/11/23 13:56:45 Finalized By: Radha Seo RN Document Signatures Signed By: Radha Seo RN 10/11/23 13:56 [facility] MAGR Preoperative Recordon 1 12-12-2022 MUSCO[facility]ER Preoperative Record MAGR Pre-Op Record [facility] Primary Physician: JOB AGUILAR DO Finalized Date/Time: 10/11/23 12:17:03 Pt. Name: ROMEO NGUYỄN ESTER Mariscal/Sex: 1940 FEMALE Med Rec #: [id number] Physician: JOB AGUILAR DO Financial #: [id number] Pt. Type: D Room/Bed: / Admit/Disch: 10/11/23 [...] 10/11/23 12:17 [facility] Pharmacy Noteon 10-11-2023 Pharmacy Note The following [...] Jamal Butler [facility] Sed Rateon 10-11-2023 Sed Rate 80 mm/hr High 0-20 [facility] Comment on above: Performed By: #### 2 668109, 2302857802, 35240919, 8261800767, 5333353764, 1274332597, 3278642443, 7281277 ####[facility] (DEFAULT)[address] [place] [address] CREATININEon 04-04-2023 Creatinine [Mass/Vol] 1.25 mg/dL Critically high 0.55-1.02 [facility] Comment on above: Performed By: #### C HEIDI #### [facility] [address] [place], [place] [address] Dr. Lolita Alvarado EGFR-AF IVORIAN 49 mL/min/1.73m2 Critically low >=60 [facility] Comment on above: Performed By: #### C HEIDI #### [facility] [address] [place], [place] [address] Dr. Lolita Alvarado EGFR-NON AF IVORIAN 41 mL/min/1.73m2 Critically low >=60 [facility] Comment on above: Performed By: #### C HEIDI #### [facility] [address] [place], [place] [address] CHEST W CONon [...] RIGO WHITTAKER Date: 2023-04-04 16:18 Normal [facility] CT CHEST W CONon 12-26-2022 CT [...] RIGO WHITTAKER Date: 2022-12-26 09:16 Normal [facility] CREATININEon 12-23-2022 Creatinine [Mass/Vol] 0.85 mg/dL Normal 0.55-1.02 [facility] Comment on above: Performed By: #### C HEIDI #### [facility] [address] [place] [address] [address] Lolita Alvarado EGFR-AF IVORIAN >60 Normal >=60 [facility] Comment on above: Performed By: #### C HEIDI #### [facility] [address] [place] [address] [address] Lolita Alvarado EGFR-NON AF IVORIAN >60 Normal >=60 [facility] Comment on above: Performed By: #### C HEIDI #### [facility] [address] [place] [address] [address] Lolita Alvarado Glucose Glucometer (dC) [M ass/Vol]Ordered By: Santiago Otto on 11-01-2022 Glucose [Mass/Vol] 97 mg/dL [facility] Comment on above: Random Glucose Refer ence Range is dependent on time and content of last meal. Glucose of more than 200 mg/dL in a nonstressed, ambulatory subject supports the diagnosis of Diabetes Mellitus. Glucose Poct Glucometerson 1 01-02-2022 Glucose [Mass/Vol] 97 mg/dL Normal [facility] Comment on above: Result Comment: [place] om Glucose Reference Range is dependent on time and content of last meal. Glucose of more than 200 mg/dL in a nonstressed, ambulatory subject supports the diagnosis of Diabetes Mellitus. PERFORMED BY: [place] [id number] PATHOLOGIST SALESPERSON MEATS NEW MEDEIROS M.D. Performed By: #### G LULS #### Point of Care testing , PET tumor init tx strat sb-m ton 11-01-2022 PET tumor init tx strat sb-mt [facility] [place] [address] Nuclear Medicine Report Signed Patient: Romeo Nguyễn MR#: [id number] : 1940 Acct:[id number] Age/Sex: 82 / F ADM Date: 11/01/22 Loc: Room: Type: [facility] Attending Dr: Satniago Otto MD Copies to: MD Candi Mendosa [...] Candi Leigh M.D.11/01/2022 1:32 PM Dictation Location: [place] [address] Transcribed By: [facility] 11/01/22 1332 Dictated By: Candi Leigh MD 11/01/22 1300 Signed By: 11/01/22 1332 [facility] CT CHEST W CONon 10-24-2022 CT [...] Date: 2022-10-23 22:21 Normal [facility] CREATININEon 10-23-2022 Creatinine [Mass/Vol] 1.08 mg/dL Critically high 0.55-1.02 [facility] Comment on above: Performed By: #### C HEIDI #### [facility] [address] [place] [address] Dr. Lloita Alvarado EGFR-AF IVORIAN 59 mL/min/1.73m2 Critically low >=60 [facility] Comment on above: Performed By: #### C HEIDI #### [facility] [address] [place] [address] [address] Lolita Alvarado EGFR-NON AF IVORIAN 48 mL/min/1.73m2 Critically low >=60 [facility] Comment on above: Performed By: #### C HEIDI #### [facility] [address] [place] TSPINE WO CONon [...] institution is recommended. Original Report EXAMINATION: CT [facility] WO CON HISTORY: Pain in thoracic spine [...] No acute abnormality. Normal [facility] MRI [facility] WO CONon 09-13-20 MRI [facility] WO CON EXAMINATION: MRI [facility] WO CON HISTORY: Lumbar radiculopathy COMPARISON: [...] SHERYL SRINIVASAN Date: 2022-09-13 08:21 Normal [facility] US NOLBERTO DOP LEG RTon 08-10-20 [...] Date: 2022-08-10 15:05 Normal [facility] CBC AUTO DIFFon 08-02-2022 BASO # 0.0 103/ul Normal 0.0-0.1 [facility] Comment on above: Performed By: #### C BC #### [facility] [address] [place] [address] Dr. Lolita Alvarado Basophils/100 WBC (Bld) 0.3 % Normal 0.2-2.0 [facility] Comment on above: Performed By: #### C BC #### [facility] [address] [place] [address] Dr. Lolita Alvarado EO # 0.0 103/ul Normal 0.0-0.7 [facility] Comment on above: Performed By: #### C BC #### [facility] [address] [place] [address] Dr. Lolita Alvarado Eosinophils/100 WBC (Bld) 0.3 % Critically low 0.9-7.0 [facility] Comment on above: Performed By: #### C BC #### [facility] [address] [place] [address] Dr. Lolita Alvarado Erythrocyte distribution width (RBC) [Ratio] 13.3 % Normal 11.0-15.0 [facility] Comment on above: Performed By: #### C BC #### [facility] [address] [place] [address] Dr. Lolita Alvarado Hematocrit (Bld) [Volume fraction] 34.6 % Critically low 36.0-48.0 [facility] Comment on above: Performed By: #### C BC #### [facility] [address] [place] [address] Dr. Lolita Alvarado Hemoglobin (Bld) [Mass/Vol] 11.4 g/dL Critically low 12.0-16.0 [facility] Comment on above: Performed By: #### C BC #### [facility] [address] [place] [address] Dr. Lolita Alvarado IG # 0.04 10e3/ul Critically high 0.00-0.03 [facility] Comment on above: Performed By: #### C BC #### [facility] [address] [place] [address] Dr. Lolita Alvarado IG % 1.0 % Critically high 0.0-0.5 [facility] Comment on above: Performed By: #### C BC #### [facility] [address] [place] [address] Dr. Lolita Alvarado LYMPH # 1.2 103/ul Normal 1.2-3.8 [facility] Comment on above: Performed By: #### C BC #### [facility] [address] [place] [address] Dr. Lolita Alvarado Lymphocytes/100 WBC (Bld) 30.9 % Normal 20.5-60.0 [facility] Comment on above: Performed By: #### C BC #### [facility] [address] [place] [address] Dr. Lolita Alvarado MANUAL DIFF REQ NO Normal [facility] Comment on above: Performed By: #### C BC #### [facility] [address] [place] [address] Dr. Lolita Alvarado MCH (RBC) [Entitic mass] 31.0 pg Normal 26.7-34.0 [facility] Comment on above: Performed By: #### C BC #### [facility] [address] [place] [address] Dr. Lolita Alvarado MCHC (RBC) [Mass/Vol] 32.9 g/dL Normal 29.9-35.2 [facility] Comment on above: Performed By: #### C BC #### [facility] [address] [place] [address] Dr. Lolita Alvarado MCV (RBC) [Entitic vol] 94.0 fL Normal 81.0-99.0 [facility] Comment on above: Performed By: #### C BC #### [facility] [address] [place] [address] Dr. Lolita Alvarado MONO # 0.4 103/ul Normal 0.3-0.8 [facility] Comment on above: Performed By: #### C BC #### [facility] [address] [place] [address] Dr. Lolita Alvarado Monocytes/100 WBC (Bld) 10.6 % Normal 1.7-12.0 [facility] Comment on above: Performed By: #### C BC #### [facility] [address] [place] [address] Dr. Lolita Alvarado NEUT # 2.2 103/ul Normal 1.4-6.5 [facility] Comment on above: Performed By: #### C BC #### [facility] [address] [place] [address] [address] Lolita Alvarado Neutrophils/100 WBC (Bld) 56.9 % Normal 43.0-75.0 [facility] Comment on above: Performed By: #### C BC #### [facility] [address] [place] [address] Dr. Lolita Alvarado Platelet mean volume (Bld) [Entitic vol] 8.1 fL Critically low 9.5-13.5 [facility] Comment on above: Performed By: #### C BC #### [facility] [address] [place] [address] Dr. Lolita Alvarado PLT 226 103/ul Normal 150-450 [facility] Comment on above: Performed By: #### C BC #### [facility] [address] [place] [address] Dr. Lolita Alvarado RBC 3.68 106/ul Critically low 4.20-5.40 [facility] Comment on above: Performed By: #### C BC #### [facility] [address] [place] [address] Dr. Lolita Alvarado WBC 3.9 103/ul Critically low 4.0-11.0 [facility] Comment on above: Performed By: #### C BC #### [facility] [address] [place] [address] Dr. Lolita Alvarado Covid-19 PCR ([facility])on 06-07 SARS-CoV-2 (COVID-19) RNA EDWIN+probe Ql (Unsp spec) Detected Critically abnormal NOT DETECTED [facility] Comment on above: Result Comment: This test is not yet approved or cleared by the [place] FDA. When there are no FDA-approved or cleared tests available, and other criteria are met, FDA can make tests available under an emergency access mechanism called an Emergency Use Authorization (EUA). The EUA for this test is supported by the [place] of Health and Human Service's (HHS's) declaration [...] used). Performed By: #### C BC #### [facility] [address] [place] [address] Dr. Lolita Alvarado CBC AUTO DIFFon 06-02-2022 BASO # 0.0 103/ul Normal 0.0-0.1 [facility] Comment on above: Performed By: #### C BC #### [facility] [address] [place] [address] Dr. Lolita Alvarado Basophils/100 WBC (Bld) 0.4 % Normal 0.2-2.0 [facility] Comment on above: Performed By: #### C BC #### [facility] [address] [place] [address] Dr. Lolita Alvarado EO # 0.0 103/ul Normal 0.0-0.7 [facility] Comment on above: Performed By: #### C BC #### [facility] [address] [place] [address] Dr. Lolita Alvarado Eosinophils/100 WBC (Bld) 0.2 % Critically low 0.9-7.0 [facility] Comment on above: Performed By: #### C BC #### [facility] [address] [place] [address] Dr. Lolita Alvarado Erythrocyte distribution width (RBC) [Ratio] 12.8 % Normal 11.0-15.0 [facility] Comment on above: Performed By: #### C BC #### [facility] [address] [place] [address] Dr. Lolita Alvarado Hematocrit (Bld) [Volume fraction] 30.1 % Critically low 36.0-48.0 [facility] Comment on above: Performed By: #### C BC #### [facility] [address] [place] [address] Dr. Lolita Alvarado Hemoglobin (Bld) [Mass/Vol] 10.3 g/dL Critically low 12.0-16.0 [facility] Comment on above: Performed By: #### C BC #### [facility] [address] [place] [address] Dr. Lolita Alvarado IG # 0.02 10e3/ul Normal 0.00-0.03 [facility] Comment on above: Performed By: #### C BC #### [facility] [address] [place] [address] Dr. Lolita Alvarado IG % 0.4 % Normal 0.0-0.5 [facility] Comment on above: Performed By: #### C BC #### [facility] [address] [place] [address] Dr. Lolita Alvarado LYMPH # 0.7 103/ul Critically low 1.2-3.8 [facility] Comment on above: Performed By: #### C BC #### [facility] [address] [place] [address] Dr. Lolita Alvarado Lymphocytes/100 WBC (Bld) 14.9 % Critically low 20.5-60.0 [facility] Comment on above: Performed By: #### C BC #### [facility] [address] [place] [address] Dr. Lolita Alvarado MANUAL DIFF REQ NO Normal [facility] Comment on above: Performed By: #### C BC #### [facility] [address] [place] [address] Dr. Lolita Alvarado MCH (RBC) [Entitic mass] 33.6 pg Normal 26.7-34.0 [facility] Comment on above: Performed By: #### C BC #### [facility] [address] [place] [address] Dr. Lolita Alvarado MCHC (RBC) [Mass/Vol] 34.2 g/dL Normal 29.9-35.2 [facility] Comment on above: Performed By: #### C BC #### [facility] [address] [place] [address] Dr. Lolita Alvarado MCV (RBC) [Entitic vol] 98.0 fL Normal 81.0-99.0 [facility] Comment on above: Performed By: #### C BC #### [facility] [address] [address] [address] Lolita Alvarado MONO # 0.4 103/ul Normal 0.3-0.8 [facility] Comment on above: Performed By: #### C BC #### [facility] [address] [address] [address] Lolita Alvarado Monocytes/100 WBC (Bld) 9.0 % Normal 1.7-12.0 [facility] Comment on above: Performed By: #### C BC #### [facility] [address] [place] [address] Dr. Lolita Alvarado NEUT # 3.4 103/ul Normal 1.4-6.5 [facility] Comment on above: Performed By: #### C BC #### [facility] [address] [place] [address] Dr. Lolita Alvarado Neutrophils/100 WBC (Bld) 75.1 % Critically high 43.0-75.0 [facility] Comment on above: Performed By: #### C BC #### [facility] [address] [place] [address] Dr. Lolita Alvarado Platelet mean volume (Bld) [Entitic vol] 8.5 fL Critically low 9.5-13.5 [facility] Comment on above: Performed By: #### C BC #### [facility] [address] [place] [address] Dr. Lolita Alvarado PLT 229 103/ul Normal 150-450 [facility] Comment on above: Performed By: #### C BC #### [facility] [address] [place] [address] Dr. Lolita Alvarado RBC 3.07 106/ul Critically low 4.20-5.40 [facility] Comment on above: Performed By: #### C BC #### [facility] [address] [place] [address] Dr. Lolita Alvarado WBC 4.6 103/ul Normal 4.0-11.0 [facility] Comment on above: Performed By: #### C BC #### [facility] [address] [place] [address] [address] Lolita Alvarado CBC AUTO DIFFon 06-01-2022 BASO # 0.0 103/ul Normal 0.0-0.1 [facility] Comment on above: Performed By: #### C BC #### [facility] [address] [place] [address] Dr. Lolita Alvarado Basophils/100 WBC (Bld) 0.7 % Normal 0.2-2.0 [facility] Comment on above: Performed By: #### C BC #### [facility] [address] [place] [address] Dr. Lolita Alvarado EO # 0.2 103/ul Normal 0.0-0.7 [facility] Comment on above: Performed By: #### C BC #### [facility] [address] [place] [address] Dr. Lolita Alvarado Eosinophils/100 WBC (Bld) 3.7 % Normal 0.9-7.0 [facility] Comment on above: Performed By: #### C BC #### [facility] [address] [place] [address] Dr. Lolita Alvarado Erythrocyte distribution width (RBC) [Ratio] 13.0 % Normal 11.0-15.0 [facility] Comment on above: Performed By: #### C BC #### [facility] [address] [place] [address] Dr. Lolita Alvarado Hematocrit (Bld) [Volume fraction] 32.2 % Critically low 36.0-48.0 [facility] Comment on above: Performed By: #### C BC #### [facility] [address] [place] [address] Dr. Lolita Alvarado Hemoglobin (Bld) [Mass/Vol] 10.6 g/dL Critically low 12.0-16.0 [facility] Comment on above: Performed By: #### C BC #### [facility] [address] [place] [address] Dr. Lolita Alvarado IG # 0.02 10e3/ul Normal 0.00-0.03 [facility] Comment on above: Performed By: #### C BC #### [facility] [address] [place] [address] Dr. Lolita Alvarado IG % 0.5 % Normal 0.0-0.5 [facility] Comment on above: Performed By: #### C BC #### [facility] [address] [place] [address] Dr. Lolita Alvarado LYMPH # 1.4 103/ul Normal 1.2-3.8 [facility] Comment on above: Performed By: #### C BC #### [facility] [address] [place] [address] Dr. Lolita Alvarado Lymphocytes/100 WBC (Bld) 32.4 % Normal 20.5-60.0 [facility] Comment on above: Performed By: #### C BC #### [facility] [address] [place] [address] Dr. Lolita Alvarado MANUAL DIFF REQ NO Normal [facility] Comment on above: Performed By: #### C BC #### [facility] [address] [place] [address] Dr. Lolita Alvarado MCH (RBC) [Entitic mass] 32.1 pg Normal 26.7-34.0 [facility] Comment on above: Performed By: #### C BC #### [facility] [address] [place] [address] Dr. Lolita Alvarado MCHC (RBC) [Mass/Vol] 32.9 g/dL Normal 29.9-35.2 [facility] Comment on above: Performed By: #### C BC #### [facility] [address] [place] [address] Dr. Lolita Alvarado MCV (RBC) [Entitic vol] 97.6 fL Normal 81.0-99.0 [facility] Comment on above: Performed By: #### C BC #### [facility] [address] [place] [address] Dr. Lolita Alvarado MONO # 0.6 103/ul Normal 0.3-0.8 [facility] Comment on above: Performed By: #### C BC #### [facility] [address] [place] [address] Dr. Lolita Alvarado Monocytes/100 WBC (Bld) 14.0 % Critically high 1.7-12.0 [facility] Comment on above: Performed By: #### C BC #### [facility] [address] [place] [address] Dr. Lolita Alvaraod NEUT # 2.1 103/ul Normal 1.4-6.5 [facility] Comment on above: Performed By: #### C BC #### [facility] [address] [place] [address] Dr. Lolita Alvarado Neutrophils/100 WBC (Bld) 48.7 % Normal 43.0-75.0 [facility] Comment on above: Performed By: #### C BC #### [facility] [address] [place] [address] Dr. Lolita Alvarado Platelet mean volume (Bld) [Entitic vol] 8.2 fL Critically low 9.5-13.5 [facility] Comment on above: Performed By: #### C BC #### [facility] [address] [place] [address] Dr. Lolita Alvarado PLT 216 103/ul Normal 150-450 [facility] Comment on above: Performed By: #### C BC #### [facility] [address] [place] [address] Dr. Lolita Alvarado RBC 3.30 106/ul Critically low 4.20-5.40 [facility] Comment on above: Performed By: #### C BC #### [facility] [address] [place] [address] Dr. Lolita Alvarado WBC 4.3 103/ul Normal 4.0-11.0 [facility] Comment on above: Performed By: #### C BC #### [facility] [address] [place] [address] Dr. Lolita Alvarado OCC BLD IMMUNOASSAYon 2021 OCCULT BLOOD Positive Abnormal NEGATIVE [facility] Comment on above: Performed By: #### O ELADIO #### [facility] [address] [place] [address] Dr. Lolita Alvarado PROTIMEon 06-01-2022 INR Coag (PPP) [Relative time] 1.62 {INR} Normal [facility] Comment on above: Performed By: #### P T, PTT #### [facility] [address] [place] [address] Dr. Lolita Alvarado INR GUIDELINES SEE BELOW Normal [facility] Comment on above: Result Comment: TOSHA RED INR: 2.0 - 3.0 CONDITIONS NOT LISTED BELOW 2.5 - 3.5 FOR PROSTHETIC HEART VALVE REPLACEMENT 2.5 - 3.5 RECURRENT THROMBOSIS Performed By: #### P T, PTT #### [facility] [address] [place] [address] Dr. Lolita Alvarado PT Coag (PPP) [Time] 17.0 s Critically high 9.0-11.6 [facility] Comment on above: Performed By: #### P T, PTT #### [facility] [address] [place] [address] Dr. Lolita Alvarado PTTon 06-01-2022 aPTT Coag (Bld) [Time] 40.2 s Critically high 22.3-36.2 [facility] Comment on above: Performed By: #### P T, PTT #### [facility] [address] [place] [address] Dr. Lolita Alvarado Covid-19 PCR ([facility])on 05-06 SARS-CoV-2 (COVID-19) RNA EDWIN+probe Ql (Unsp spec) Not detected Normal NOT DETECTED [facility] Comment on above: Result Comment: This test is not yet approved or cleared by the [place] FDA. When there are no FDA-approved or cleared tests available, and other criteria are met, FDA can make tests available under an emergency access mechanism called an Emergency Use Authorization (EUA). The EUA for this test is supported by the [place] of Health and Human Service's (HHS's) declaration [...] consistent with SARS-CoV-2. Performed By: #### C VDTB #### [facility] [address] [address] [address] Lolita Alvarado US NOLBERTO DOP LEG [...] Date: 2022-05-25 16:09 Normal [facility] US NOLBERTO DOP LEG LTon 04-28-20 [...] and mid calf. There may be a card hand extending to the region of the thrombosis. The remaining deep venous structures are patent. 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 This finding was placed in the stat call folder. 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 Electronically authenticated by: CHUCK TATUM Date: 2022-04-28 19:31 Normal [facility] POINT OF CARE GLUCOSEon 04-06 Glucose [Mass/Vol] 86 mg/dL Normal 74-106 [facility] Comment on above: Performed By: #### C BC #### [facility] [address] [address] [address] 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 Fer mazariegos 04-14-2024 12:28-0400 Blood Pressure Location Mohamad Mouchli [facility] 04-14-2024 12:28-0400 Diastolic blood pressure 77 mm[Hg] Mohamad Mouchli [facility] 04-14-2024 12:28-0400 Heart rate 68 /min Mohamad Mouchli [facility] 04-14-2024 12:28-0400 Respiratory rate 16 /min Mohamad Mouchli [facility] 04-14-2024 12:28-0400 Systolic blood pressure 140 mm[Hg] Mohamad Mouchli [facility] 01-23-2024 14:05-0400 Diastolic blood pressure 73 mm[Hg] Mohamad Mouchli [facility] 01-23-2024 14:05-0400 Mean blood pressure 93 mm[Hg] Mohamad Mouchli [facility] 01-23-2024 14:05-0400 Systolic blood pressure 134 mm[Hg] Mohamad Mouchli [facility] 01-23-2024 14:02-0400 Blood Pressure Location Mohamad Mouchli [facility] 01-23-2024 14:02-0400 Diastolic blood pressure 82 mm[Hg] Mohamad Mouchli [facility] 01-23-2024 14:02-0400 Heart rate 84 /min Mohamad Mouchli [facility] 01-23-2024 14:02-0400 Respiratory rate 16 /min Tkkrystal Pastrana [facility] 01-23-2024 14:02-0400 Systolic blood pressure 147 mm[Hg] Dinalexx Pastrana [facility] Encounters Encounter Date Encounter Type Care Provider Facility Start: 07-14-2024 ambulatory Lynn Pastrana [facility]i lity:[facility] Start: 04-14-2024 End: 04-14-2024 [facility] Start: 04-14-2024 End: 04-14-2024 Patient encounter procedure Lynn Pastrana [facility] Start: 04-10-2024 End: 04-10-2024 ambulatory THOMAS CAREY Not Available Start: 03-27-2024 End: 03-27-2024 ambulatory GREGORY Willow NOAH Not Available Start: 02-28-2024 End: 02-28-2024 ambulatory ISAI Yessica CROUCH Not Available Start: 01-31-2024 End: 01-31-2024 ambulatory THOMAS CAREY Not Available Start: 01-23-2024 End: 01-23-2024 ambulatory Lynn Pastrana Facility:[facility] Start: 01-23-2024 End: 01-23-2024 Patient encounter procedure Lynn Pastrana [facility] Start: 01-17-2024 End: 01-17-2024 ambulatory JAMAL VIZCARRA Not Available Start: 01-11-2024 ambulatory Lynn Pastrana Facilit y:KEVIN Lagunas Start: 01-10-2024 [facility]ulatory [facility] Start: 12-14-2023 End: 12-14-2023 Postop follow up visit related to original px Jamal Vizcarra PA Work Phone: [facility] Comment on above: S/P right knee arthr oscopy (Primary Dx) Start: 12-14-2023 End: 12-14-2023 ambulatory JAMAL VIZCARRA Not Available Start: 11-16-2023 End: 11-16-2023 ambulatory JAMAL Reid ANAHI Not Available Start: 10-26-2023 End: 10-26-2023 ambulatory JAMAL Reid ANAHI Not Available Start: 10-11-2023 End: 10-16-2023 Evaluation and management of inpatient Brando Garcia Facility:[facility] Start: 10-10-2023 End: 10-10-2023 ambulatory JOB CASTRO Not Available Start: 10-05-2023 End: 10-05-2023 ambulatory JAMAL Jeanette VIZCARRA Not Available Start: 06-14-2023 ambulatory HORTENCIA NOVAK . Facili ty:[facility]1 Start: 04-04-[address] SANTIAGO OTTO . Facili ty:[facility] Start: 03-16-2023 End: 03-17-2023 ambulatory HORTENCIA NOVAK . Facility:[facility] Start: 12-23-2022 End: 12-24-[address] SANTIAGO OTTO . Facility:[facility] Start: 11-02-2022 ambulatory STARR ARROYO . Facility:[facility] Start: 11-01-2022 End: 11-01-2022 ambulatory Santiago Otto Facility:[facility] Start: 11-01-2022 End: 11-01-2022 ambulatory MD Santiago Otto Work Phone: [facility] Work Phone: Start: 11-01-2022 End: 11-01-2022 Patient encounter procedure MD Santiago Otto Work Phone: [facility] Work Phone: Start: 10-23-2022 End: 10-24-[address] SANTIAGO OTTO . Facility:[facility] Start: 10-16-2022 End: 10-17-2022 ambulatory RACHANA KENT Facility:[facility] Start: 10-11-2022 End: 10-11-2022 ambulatory Rachana Kent Other [facility] [employer] Other Start: 10-11-2022 Telephone encounter Rachana Viky Rai EUGENIO [facility] Start: 09-12-2022 End: 09-13-[address] SANTIAGO OTTO . Facility:[facility] Start: 08-29-2022 End: 08-29-2022 Patient encounter procedure Arie BERGERON General Surgery [facility] Start: 08-22-2022 End: 08-23-2022 ambulatory BRAD CALDWELL Facility:[facility] Start: 08-16-2022 End: 08-16-[address] ARIE BERGERON . Facility:[facility] Start: 08-12-[address] ARIE BERGERON . Facil ity:[facility]1 Start: 08-10-2022 End: 08-11-[address] SANTIAGO OTTO . Facility:[facility] Start: 08-10-2022 Encounter for other preprocedural examination DR ARIE BERGERON . [facility] Start: 08-08-2022 End: 08-09-[address] [...] NILL Extraction of cataract Louis el NILL Knee region structur e (body structure) Lynn Pastrana Plan of Treatment Date Care Activity Detail Author Start: 08-14-2024 End: 08-14-2024 Patient encounter procedure 08/14/2024 10:45 AM EDT Office Visit [facility] [address] [place] [id number] Isai Crouch MD [address] [place] [address] [facility] Start: 08-06-2024 End: 08-06-2024 Telemedicine consultation with patient 08/06/2024 9:30 AM EDT Telemedicine [facility] [address] [place] [address] Jr. Job Aguilar, DO [address] [place] [address] [facility] Start: 07-06-2023 Influenza vaccination Influenza Vaccine (#1) [facility] Immunizations Immunization Date Immunization Notes Care Provider Fa cility 10-11-2022 SARS-CoV-2 (COVID-19 ) mRNAMUL.[id number] Lynn Pastrana [facility] Comment on above: Result Comment: 2023: [id number] 08-16-2021 SARS-CoV-2 (COVID-19 ) mRNA BNT-162b2 vax Brand Thunderkrystal [employer] [facility] 12-22-2020 SARS-CoV-2 (COVID-19 ) mRNA BNT-162b2 vax Brand Thunderd [employer] [facility] 11-29-2020 SARS-CoV-2 (COVID-19 ) mRNA BNT-162b2 vax Brand Thunderd [employer] [facility] 08-17-2020 influenza virus vacc ine, unspecified formulation Jamal MARIE Work Phone: [facility] 08-06-2017 pneumococcal conjuga te vaccine, 13 valent Mohchristyd Mouchli [facility] 07-26-2017 influenza virus vacc ine, unspecified formulation Mohchristyd Zeina [facility] 01-18-2016 pneumococcal polysaccharide vaccine, 23 valent Mohamad Mouchli [facility] 09-10-2015 zoster vaccine, live Lynn Pastrana [facility] 08-05-2015 influenza virus vacc ine, unspecified formulation Lynn Pastrana [facility] Payers Date Payer Category Payer Unknown AARP AARP [id number] 2022-Present [address] [place] [address] [id number] 2022 Unknown [id number] 2003 Medicare MEDICARE MEDICAR E PART B [id number] 2003-Present [address] [address] [place] [address] Medicare [id number]. [id number] 1959 Medicare [id number] 2.16.840.1.425322.19 1959 Self-pay 1959 Unknown [id number] 2.16.840.1.535114.19 1938 Unknown [id number] 2.16.840.1.899613.3.579.2.593 1938 Unknown [id number] 2.16.840.1.474896.3.579.2.593 1938 Unknown [id number] 2.16.840.1.670213.3.579.2.593 1938 Unknown [id number] 2.16.840.1.733270.3.579.2.593 1938 Unknown [id number] 2.16.840.1.890799.3.579.2.59 1938 Unknown [id number] 2.16.840.1.533112.3.579.2.593 1938 Unknown [id number] 2.16.840.1.444583.3.579.2.593 1938 Unknown [id number] 2.16.840.1.192580.3.579.2.593 1938 Unknown [id number] 2.16.840.1.416852.3.579.2.593 1938 Unknown [id number] 2.16.840.1.977653.3.579.2.593 1938 Unknown [id number] 2.16.840.1.257130.3.579.2.593 1938 Unknown [id number] 2.16.840.1.965152.3.579.2.593 1938 Unknown [id number] 2.16.840.1.288108.3.579.2.59 1938 Unknown [id number] 2.16.840.1.573648.3.579.2.593 1938 Unknown [id number] 2.16.840.1.203685.3.579.2.593 1938 Unknown [id number] 2.16.840.1.182276.3.579.2.593 1938 Unknown [id number] 2.16.840.1.643484.3.579.2.593 1938 Unknown [id number] 2.16.840.1.098150.3.579.2.593 1938 Unknown [id number] 2.16.840.1.496581.3.579.2.593 1938 Unknown [id number] 2.16.840.1.696028.3.579.2.593 1938 Unknown [id number] 2.16.840.1.213110.3.579.2.593 1938 Unknown [id number] 2.16.840.1.645097.3.579.2.593 1938 Unknown [id number] 2.16.840.1.619807.3.579.2.593 1938 Unknown [id number] 2.16.840.1.960339.3.579.2.593 1938 Unknown [id number] 2.16.840.1.132477.3.579.2.593 1938 Unknown [id number] 2.16.840.1.381223.3.579.2.593 1938 Unknown [id number] 2.16.840.1.105130.3.579.2.593 1938 Unknown [id number] 2.16.840.1.056081.3.579.2.593 1938 Unknown [id number] 2.16.840.1.875721.3.579.2.718 1938 Unknown [id number] 2.16.840.1.343582.3.579.2.125 1938 Unknown [id number] 2.16.840.1.135323.3.579.2.125 1938 Unknown [id number] 2.16.840.1.716623.3.579.2.125 1938 Unknown [id number] 2.16.840.1.679174.3.579.2.125 1938 Unknown [id number] 2.16.840.1.303380.3.579.2.125 1938 Unknown [id number] 2.16.840.1.670401.3.579.2.125 1938 Unknown [id number] 2.16.840.1.138521.3.579.2.125 1938 Unknown [id number] 2.16.840.1.494309.3.579.2.1259 1938 Unknown [id number] 2.16.840.1.569656.3.579.2.9 1938 Unknown [id number] 2.16.840.1.016529.3.579.2.9 1938 Unknown [id number] 2.16.840.1.989219.3.579.2.1259 1938 Unknown [id number] 2.16.840.1.994039.3.579.2.727 1938 Unknown [id number] 2.16.840.1.302055.3.579.2.727 1938 Unknown [id number] 2.16.840.1.592012.3.579.2.727 Medicare Medicare Outpatient [id number] Unknown [id number] 2.16.840.1.540671.3.579.2.531 Social History Date Type Detail Facility Start: 06-13-2022 End: 04-14-2024 Tobacco smoking status Never smoked tobacco (finding) [facility] Tobacco smoking status Never [facility] Start: 11-16-2023 Sex Assigned At Female F [facility] Start: 1940 Sex Assigned At Female F [facility] Start: 10-05-2023 Tobacco use and exposure Smokeless tobacco non-user [facility] Start: 11-16-2023 Alcohol intake Lifetime non-d mery (finding) [facility] Start: 11-16-2023 History of Social function [facility] Start: 1940 Sex Assigned At Not on file [facility] Functional Status Date Assessment Result Facility 04-14-2024 Functional Status N/A [facility] 01-23-2024 Functional Status N/A [facility] Clinical Notes 06-01-2022 to 12-14-2023 FRANK Dangelo 12/14/2023 10:15 AM EST Note Date & Type Note Facility 12-14-2023 History of Present illness Narrative Images from the original note were not included. HISTORY OF PRESENT ILLNESS: POST OP PT Romeo Nguyễn is an 83 y.o. @ female. [...] her PCP for evaluation of diarrhea, taking ueil-bbn-fcudkya medications. States she feels like they are [...] evaluation. FRANK Dangelo documented in this encounter [facility] 10-17-2023 Note [id number]#1.00[facility] 10-17-2023 Note [id number]#1.00[facility] 10-17-2023 Note [id number]#1.00[facility] 10-16-2023 Note Education Materials POST OPERATIVE TOTAL [...] follow up in office with physician assistant golf course superintendent Joe Vizcarra as scheduled #9 [facility] will be contacting you within the next 24 hours to set up home therapy visits #11 You have been given a prescription for [place], norco is narcotic, narcotics are addictive. If you feel you have problems with addiction please feel free to contact Dr. Aguilar, your family physician, or proceed to the nearest hospital's emergency services department. [facility] 10-16-2023 Note [facility] Clinical Discharge Summary PERSON INFORMATION Name ROMEO NGUYỄN Age 83 Years 1940 Sex FEMALE Language Hebrew PCP SANTIAGO OTTO Marital Status Phone Med Service Med/Surg Acct# Arrival 10/11/2023 06:57:39 Visit Reason SURGERY - RIGHT KNEE SCOPE Acuity LOS 005 01:37 Address: [address] [place] [address] Comment: PROVIDER INFORMATION VITALS INFORMATION Vital Sign [...] range between ( 1.3 and 2.9 ) Sublette Abs#: 0.8 x103/mcL -- Normal range between ( 0.0 and 0.8 ) Auto Baso %: 0.2 % -- Normal range between ( 0.2 and 2.0 ) Auto Sublette %: 9 % -- Normal range between [...] ( 32 and (more content not included)... [facility] 10-17-2022 Note PROCEDURE: XR SCAPUL A RT COMPARISON: None. HISTORY: Disorder of bone FINDINGS: BONES:No acute fracture or dislocation. Subchondral cystic changes of the greater tuberosity and humeral neck SOFT TISSUES:Negative. No visible soft tissue swelling. EFFUSION:None visible. OTHER: Aortic atherosclerosis IMPRESSION: No acute abnormality Electronically authenticated by: SHERYL SRINIVASAN Date: 2022-10-17 07:20 [facility] 08-16-2022 Note OPERATIVE NOTE OPERATION DATE: 08/16/2022 [...] CC: Santiago Otto M.D. [facility] 07-27-2022 Note CONSULTATION PROCEDURE DATE: 07/27/2022 [...] up in the office. [facility] 07-27-2022 Note CONSULTATION CONSULTATION DATE: 07/27/2022 [...] the plan of care. [facility] 06-01-2022 Note CONSULTATION CONSULTATION DATE: 06/01/2022 HISTORY [...] in agreement to this. [facility] 06-01-2022 Note CONSULTATION PROCEDURE DATE: 06/01/2022 [...] tolerated the procedure well. [facility] Evaluation + Plan note No data available for this section [facility] Evaluation + Plan note Future Appointments Appointment Date:07/14/2024 12:45:00 PM Scheduled Provider:Lynn Pastrana MD Location:[facility] Appointment Type:[facility] Follow Up [facility] Evaluation note No Information [employer] Other Evaluation note No assessment inform ation available [facility] Work Phone: Evaluation note Diagnosis S/P [...] knee replacement Hospitalization History see surgical hx ncyclo Other Hospital Discharge instructions No data available for this section [facility] Progress note No data available for this section [facility] Chief Complaint and Reason for Visit Chief Complaint r91.8 Advance Directives Advance Directive Response Recorded Date/ Time Advance Directives No October 2:29pm Summary Purpose Family History No Family History Records FoundNo Family History Records FoundNo Family History Records Found No data available for this section No Family History Records FoundNo Family History Records Found No data available for this section Additional Source Comments Patient Care team informatio n (unrecognized section and content) Personnel Name: Santiago Otto MD Address: Address: [address] [place] [address] [place], [place] [address] Team Status: Inactive Member Role Status Dates Santiago Otto MD Primary Care Provider, Attending Pr lg Active Team Status: Active Member Role Status Dates Santiago Otto MD Primary Care Provider Active Collection Card Clerk Relationship Specialty Start Date End Date Santiago Otto MD [address] [place] [address] [place] [address] PCP - General Family Medicine 10/05/23 REASON FOR VISIT (unrecogniz ed section and content) Reason Comments Pain Goals (unrecognized section and content) Goals may be documented in a n alternate section INFORMATION SOURCE (unrecogn ized section and content) DATE CREATED AUTHOR 11/14/2022 [facility] DATE CREATED AUTHOR AUTHOR'S ORGANIZ ATION 04/13/2023 [facility] DATE CREATED AUTHOR AUTHOR'S ORGANIZ ATION 11/02/2023 [facility] DATE CREATED AUTHOR AUTHOR'S ORGANIZ ATION 04/11/2024 [facility] EPIC DATE CREATED AUTHOR AUTHOR'S ORGANIZ ATION 04/15/2024 [facility] FOR RECORDS PERTAINING TO PATIENTS WHO ARE [...] BE BASED ON THE PRIMARY CLINICAL RECORDS. [employer] provides no warranty or guarantee of the accuracy or completeness of information in this document.
[2024-04-25 11:38] LABS: Basophils Absolute Auto 0.1 10^3/uL (0.0-0.1); Eosinophils Absolute Auto 0.1 10^3/uL (0.0-0.7); Hematocrit 31.5 % (36.0-48.0); Hemoglobin 10.1 g/dL (12.0-16.0); Immature Granulocytes Abs Auto 0.02 10^3/uL (0.00-0.03); Immature Granulocytes Pct Auto 0.4 % (0.0-0.5); Lymphocytes Absolute Auto 1.4 10^3/uL (1.2-3.8); Lymphocytes Percent Auto 27.5 % (20.5-60.0); Mean Corpuscular HGB Conc 32.1 g/dL (29.9-35.2); Mean Corpuscular Hemoglobin 29.4 pg (26.7-34.0); Mean Corpuscular Volume 91.8 fL (81.0-99.0); Mean Platelet Volume 8.4 fL (9.5-13.5); Monocytes Absolute Auto 0.4 10^3/uL (0.3-0.8); Monocytes Percent Auto 8.2 % (1.7-12.0); Neutrophils Absolute Auto 3.1 10^3/uL (1.4-6.5); Neutrophils Percent Auto 60.9 % (43.0-75.0); Platelet Count 177 10^3/uL (150-450); Red Blood Count 3.43 10^6/uL (4.20-5.40); Red Cell Distribution Width 15.6 % (11.0-15.0); White Blood Count 5.1 10^3/uL (4.0-11.0)
[2024-04-25 12:51] LABS: Alanine Aminotransferase 29 U/L (14-59); Albumin Globulin Ratio 1.1; Albumin Level 3.5 g/dL (3.4-5.0); Alkaline Phosphatase 107 U/L (46-116); Anion Gap 11.6; Aspartate Amino Transferase 24 U/L (15-37); BUN Creatinine Ratio 23.5; Bilirubin Total 0.5 mg/dL (0.2-1.0); Carbon Dioxide 28.5 mmol/L (21.0-32.0); Chloride 103 mmol/L (98-107); Estimated GFR (African America >60 (>=60); Estimated GFR (Non-African Ame >60 (>=60); Globulin 3.3 g/dL; Glucose 89 mg/dL (74-106); Potassium 5.1 mmol/L (3.5-5.1); Sodium 138 mmol/L (136-145); Thyroid Stimulating Hormone 1.646 uIU/mL (0.358-3.740); Total Protein 6.8 g/dL (6.4-8.2)
== END 2024-04-25 10:59 | disposition home or self-care (01) ==
LOC: LAB 10:58
PROVIDERS: PCP Family Medicine; Visit Provider Family Medicine
DX: Z00.00 Encounter for general adult medical examination without abnormal findings (principal); L65.9 Nonscarring hair loss, unspecified; R60.9 Edema, unspecified; G47.00 Insomnia, unspecified; E78.2 Mixed hyperlipidemia
CPT/HCPCS: 36415; 80053; 82728; 83540; 84436; 84443; 84481; 85025

== ENCOUNTER 2024-07-02 10:17 | Outpatient (OUT) | payer MEDICARE, SELFPAY ==
--- NOTE | 2024-07-02 10:24 | XR_ITS ---
The [address] [address] Patient Name: CLAIRE NGUYỄN MRN: [id number] date: 1940 Sex: F Assigned Patient Location: [facility] Current Patient Location: [facility] Accession/Order Number: [id number] Exam Date: 07/02/2024 10:29 Report Date: 07/02/2024 15:29 At the request of: SANTIAGO WARREN Procedure: XR hand RT min 3V IMAGES REVIEWED: XR hand RT min 3V COMPARISON: None available. CLINICAL INDICATION: Right Hand Pain M79.641 FINDINGS/IMPRESSION: BB marker placed by technologist. Acute mildly comminuted obliquely oriented nondisplaced fracture of the fifth metacarpal. Widening of the scapholunate interval suggesting scapholunate ligament injury. 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 Severe degenerative change second MCP joint. Moderate-severe degenerative change first IP and first CMC joints. Electronically authenticated by: CALIXTO GIANG Date: 07/02/2024 15:29
== END 2024-07-02 10:18 | disposition home or self-care (01) ==
LOC: RAD 10:19
PROVIDERS: PCP Family Medicine; Visit Provider Family Medicine
DX: M79.641 Pain in right hand (principal); S62.356A Nondisplaced fracture of shaft of fifth metacarpal bone, right hand, initial encounter for closed fracture
CPT/HCPCS: 73130

== ENCOUNTER 2024-08-27 08:44 | Outpatient (OUT) | payer MEDICARE, SELFPAY ==
--- OUTSIDE RECORDS SUMMARY | 2024-08-27 08:52 | XMS_ITS | CCD ---
Author Organization [facility] Care Team Providers Care Long Winder Tender Name Role Phone Santiago Patricio Primary Care Physician Rachana aSlmon Unavailable MD Santiago Patricio Primary Care Provider [phone] MD Santiago Patricio Attending Provider Santiago Patricio Attending Unavailable Santiago Patricio Primary Care Unavailable Santiago Patricio Admitting Unavailable HOY ., DR HENDERSON Primary [...] HOY ., DR HENDERSON Primary Care Unavailable LEAWOOD, DR SHERYL Navarrete Consulting Unavailable HOY ., [...] RACHANA Admitting Unavailable BLADES, RACHANA Attending Unavailable LEAWOOD, DR SHERYL Navarrete Consulting Unavailable HOY ., [...] Unavailable ELICEO, DR SY Love Consulting Unavailable KATJEFFERSON FIGUEREDO Attending Unavailable GARCIA ., DR IVANIA Ledezma Admitting Unavailable GARCIA ., DR IVANIA Ledezma Attending Unavailable HOY ., DR HENDEROSN Primary Care Unavailable NILL ., DR SARGENT [...] Admitting Unavailable Brando Garcia Attending Unavailable SANTIAGO PATRICIO Primary Care Unavailable Sheryl Dennis Consulting Unavailable Santiago Patricio MD Primary Care Provider [phone] Lynn Pastrana Attending Unavailable Lynn Pastrana Attending Unavailable Lynn Pastrana Attending Unavailable JAMAL VIZCARRA Attending Unavailable JAMAL VIZCARRA Attending Unavailable JAMAL VIZCARRA Attending Unavailable SILVINO CAREY Attending Unavailable ISAI HORNE Attending Unavailable GREGORY ZAMORA Attending Unavailable JAMAL VIZCARRA Attending Unavailable JAMAL VIZCARRA Referring Unavailable JR. EMIR, JOB Jeffery Attending Unavaila SILVINO Chahal Attending Unavailable SILVINO CAREY Attending Unavailable CALIXTO BARBA Attending Unavailable CALIXTO BARBA Referring Unavailable CALIXTO BARBA Attending Unavailable JAMAL VIZCARRA Attending Unavailable CALIXTO BARBA Referring Unavailable JR. EMIRJOB Attending Terrie AGUILAR JR., JOB Jeffery Referring ISAI Bellamy Attending CALIXTO Land Attending Unavailable CALIXTO BARBA Referring Unavailable Allergies Allergy Classification Reported Allergen(s) Allergy Type Date of Onset Reaction(s) Facility (1 source) No Known Medication Allergies; Translations: [No Known Medication Allergies] Propensity to adverse reactions (disorder) [facility] Repository Medications Current Medications Medication Drug Class(es) Dates Sig (Normalized) Sig (Original) 8 hr acetaminophen 650 mg extended release oral tablet (11 sources) acetaminophen (Tylenol 8 Hour Arthritis Pain) 650 MG ER tablet every 8 (eight) hours. Active alendronic acid 70 mg oral tablet (15 sources) Bisphosphonate Start: 06-08-2022 alendronate (Fosamax) 70 MG tablet 03/04/2023 Active ALPRAZolam 0.25 mg oral tablet (9 sources) Benzodiazepine ALPRAZolam (Xana x) 0.25 MG tablet every 8 (eight) hours Active amLODIPine 5 mg oral tablet (15 sources) Dihydropyridine Calcium Channel Betsy Start: 06-16-2023 amLODIPine (Norvasc) 5 MG tablet 06/16/2023 Active Start: 06-08-2022 take 2 tablets by [facility] once daily amLODIPine 5 mg Tab 10 mg = 2 tab(s), Oral, Daily, Refills(s) 0 Start Date: 06/08/22 Status: Ordered amLODIPine Besyl ate 5 MG Oral for 90 Days Active aspirin 81 mg delayed release oral tablet (14 sources) Platelet Aggregation Inhibitor, Nonsteroidal Anti-inflammatory Drug Start: 06-08-2022 take 1 tablet by mouth once daily aspirin 81 mg Oral EC Tab 81 mg = 1 tab(s), Oral, Daily, Refills(s) 0 Start Date: 06/08/22 Status: Ordered aspirin 81 MG ch ewable tablet 1 (one) time each day at the same time. Active calcium carbonate 1500 mg oral tablet (3 sources) Start: 06-08-2022 calcium (as carbonate) 600 mg oral tablet 1,200 mg = 2 tab(s), Oral, Daily, Refills(s) 0 Start Date: 06/08/22 Status: Ordered cetirizine hydrochloride 10 mg oral tablet (20 sources) Histamine-1 Receptor Antagonist Start: 11-19-2023 take 1 tablet by mouth once daily cetirizine (ZyrTEC) 10 MG tablet TAKE 1 TABLET BY MOUTH EVERY DAY FOR 30 DAYS 11/19/2023 Active cetirizine (ZyrT EC) 10 MG chewable tablet Chew Daily Active take 1 tablet by mouth once gurmeet y ZyrTEC 10 MG 1 tablet Orally Once a day Active Chondroitin Sulfates / Glucosamine (12 sources) Start: 10-11-2023 Glucosamine-Ch ondroitin (OSTEO BI-FLEX REGULAR STRENGTH PO) Oral, Daily, 0 Refill(s) 10/11/2023 Active Start: 06-08-2022 take 1 tablet by robert th once daily Osteo Bi-Flex 1 tab(s), Oral, Daily, Refill(s) 0 Start Date: 06/08/22 Status: Ordered [facility] E Oil 45 MG/0.25ML oil (11 sources) Start: 10-09-2022 [facility] E Oil 45 M G/0.25ML oil USE 1 ML TOPICALLY ONCE DAILY FOR 30 DAYS 10/09/2022 Active Start: 10-09-2022 [facility] Oil 45 M G/0.25ML oil USE 1 ML TOPICALLY ONCE DAILY [...] sodium 75 mg delayed release oral tablet (9 sources) Nonsteroidal Anti-inflammatory Drug Start: 06-08-2022 take 1 tablet by mouth twice daily Diclofenac 75mg Tab-DR = 1 tab(s), Oral, BID, Refills(s) 0 Start Date: 06/08/22 Status: Ordered diclofenac (Volt aren) 75 MG EC tablet every 12 (twelve) hours Active Diclofenac 75mg Tab-DR (2 sources) Start: 06-08-2022 take 1 tablet by mouth twice daily Diclofenac 75mg Tab-DR = 1 tab(s), Oral, BID, Refills(s) 0 Start Date: 06/08/22 Status: Ordered dicyclomine hydrochloride 20 mg oral tablet (9 sources) Anticholinergic Start: 01-21-2024 take 1 tablet by mouth in the morning, then take 1 tablet by mouth in the evening, then take 1 tablet by mouth at bedtime dicyclomine (Bentyl) 20 MG tablet Take 20 mg by mouth in the morning and 20 mg in the evening and 20 mg before bedtime. 01/21/2024 Active DULoxetine 30 mg delayed release oral capsule (11 sources) Serotonin and Norepinephrine Reuptake Inhibitor take 1 capsule by mouth in the morning DULoxetine (Cymbalta) [address] capsule Take 30 mg by mouth in the morning and 30 mg before bedtime. Do not crush or chew. . Active estradiol 0.5 mg oral tablet (9 sources) Estrogen estradiol (Estrace) 0.5 MG tablet 1 tablet Orally Active ferrous sulfate (1 source) take 1 tablet by mouth twice daily Ferrous Sulfate 325 (65 Fe) MG TAKE 1 TABLET BY MOUTH TWICE A DAY Oral for 30 Days Active hyoscyamine sulfate 0.125 mg sublingual tablet (18 sources) Start: 12-13-2023 hyoscyamine (Levsin) 0.125 MG SL tablet DISSOLVE 1 TABLET UNDER TONGUE 4 TIMES A DAY NEEDED 12/13/2023 Active hyoscyamine (Lev sin) 0.125 MG tablet every 4 (four) hours Active levothyroxine sodium 0.05 mg oral tablet (15 sources) l-Thyroxine Start: 06-16-2023 levothyroxine (Synthroid, Levoxyl) 50 MCG tablet 06/16/2023 Active Start: 06-08-2022 take 1 tablet by robert th once daily levothyroxine 50 mcg (0.05 mg) Tab 50 mcg = 1 tab(s), Oral, Daily, Refills(s) 0 Start Date: 06/08/22 Status: Ordered liothyronine sodium 0.005 mg oral tablet (13 sources) l-Triiodothyronine Start: 10-11-2023 liothyronin e (Cytomel) 5 MCG tablet 5 mcg 10/11/2023 Active Start: 06-08-2022 take 1 tablet by robert th once daily liothyronine 5 mcg Tab 5 [...] 1 tablet Orally Once a day Active losartan potassium 100 mg oral tablet (9 sources) Angiotensin 2 Receptor Betsy losartan (Cozaar) 100 MG tablet 1 (one) time each day at the same time Active menthol 0.05 mg/mg medicated patch (1 source) apply 1 dose transdermal route three times daily as needed Icy Hot 5 % 1 patch as needed Externally Three times a day for 7 days Active metoprolol tartrate 50 mg oral tablet (15 sources) beta-Adrenergic Betsy Start: metoprolol tartrate (Lopressor) 50 MG tablet 04/03/2023 Active Start: 06-08-2022 Metoprolol tar trate 50 mg [...] omeprazole 20 mg delayed release oral capsule (15 sources) Proton Pump Inhibitor Start: 06-08-2022 take 1 capsule by mouth twice daily omeprazole 20 mg Cap-DR 20 mg = 1 cap(s), Oral, BID, Refills(s) 0 Start Date: 06/08/22 Status: Ordered omeprazole (PriL OSEC) [address] capsule 1 (one) time each day at the same time. Active petrolatum 0.41 mg/mg topical ointment (1 source) Aquaphor - as directed Externally 2x daily for 7 days Active potassium chloride 20 meq extended release oral tablet (1 source) Potassium Chlori de ER 20 MEQ Oral for 30 Days Active rifAXIMin 550 mg oral tablet (10 sources) Rifamycin Antibacterial Start: 01-23-20 rifAXIMin (Xifaxan) 550 MG tablet Take 550 mg by mouth 01/23/2024 Active tacrolimus 0.001 mg/mg topical ointment (9 sources) Calcineurin Inhibitor Immunosuppressant Start: 06-02-20 tacrolimus (Protopic) 0.1 % ointment Indications: Other atopic dermatitis Apply to face and neck twice a day when itchy, hold when clear/ 90 day supply 90 g 2 06/02/2024 Active temazepam 15 mg oral capsule (12 sources) Benzodiazepine Start: 06-08-20 take 1 capsule by mouth once daily at bedtime temazepam 15 mg Cap 15 mg = 1 cap(s), Oral, Once a day (at bedtime), Refills(s) 0 Start Date: 06/08/22 Status: Ordered Vitamin E 45 MG/0.25ML (1 source) Start: 10-09-20 take 1 mL by mouth once daily Vitamin E 45 MG/0.25ML 1 mL Orally Once a day for 30 day(s) Oct, Active Completed/Discontinued Medications Medication Drug Class(es) Dates Sig (Normalized) Sig (Original) Triamcinolone (14 sources) Corticosteroid Start: 06-08-2022 triamcinolone Top 0.1% Crm 1 dano, Topical, BID, Refill(s) 0 Start Date: 06/08/22 Status: Ordered Start: 06-08-2022 triamcinolone Top 0.1% Crm 1 dano, Topical, BID, Refill(s) 0 Start Date: 06/08/22 Status: Ordered triamcinolone (K enalog) 0.1 % cream Apply topically 2 (two) times a day Active Problems Active Problems Problem Classification Problem Date Documented Da te Episodic/Chronic Allergic reactions (2 sources) Atopic dermatitis; Translations: [Other atopic dermatitis] 08-14-2024 Chronic Cardiac dysrhythmias (3 sources) Premature atrial contraction [...] [Essential (primary) hypertension] Onset: 05-01-2022 06-08-2022 Chronic Fracture of upper limb (2 sources) Fracture of shaft of metacarpal bone; Translations: [Nondisplaced fracture of shaft of fifth metacarpal bone, right hand, subsequent encounter for fracture with routine healing] 08-15-2024 Episodic Gastritis and duodenitis (1 source) Unspecified chronic [...] [OTHER CHRONIC PAIN] Onset: 04-27-2022 Chronic Other non-epithelial cancer of skin (2 sources) History of squamous cell carcinoma of skin; Translations: [Personal history of other malignant neoplasm of skin] 08-14-2024 Episodic Other non-traumatic joint disorders (2 sources) Pain in left knee; Translations: [Pain in joint, lower leg] 08-13-2024 Episodic Other nutritional; endocrine; and metabolic disorders (3 sources) Overweight in adulthood with body mass index of 25 or more but less than 30 06-13-2022 Episodic Other skin disorders (2 sources) Actinic keratosis; Translations: [Actinic keratosis] 08-14-2024 Episodic Other skin disorders (2 sources) Inflamed seborrheic keratosis; Translations: [Inflamed seborrheic keratosis] 08-14-2024 Episodic Other skin disorders (2 sources) Seborrheic keratosis; Translations: [Other seborrheic keratosis] 08-14-2024 Episodic Phlebitis; thrombophlebitis and thromboembolism (6 sources) [...] Onset: 08-24-2022 Episodic Other aftercare (1 source) rodent exterminator (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 There is increased callus but no definitive union is established. 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 The alignment appeared to be anatomic. There was no evidence of accelerated or asymmetric wear to the patellar button or tibial tray. Heterotopic ossification appears unchanged. There was no evidence of fracture and/or dislocation. Impression: Unremarkable left total knee arthroplasty. formerly [facility] Radiology Study observation (narrative) [facility] Ambulatory Visit Summaryon 0 04-14-2024 Ambulatory Visit Summary ROMEO BULLOCK :1940 Visit Date:04/14/2024 Ambulatory Visit Instructions Your Diagnosis Chronic diarrhea Gastropathy Your Care Team Attending Physician - Lynn Pastrana MD Primary Care Physician - Santiago Patricio MD This Is Your Medications List Contact [...] EDT With: Zeina LONGORIA, Lynn Mohr Where: [facility] Normal [facility] Gastroenterology Office/Clin ic Noteon 04-14-2024 Gastroenterology Office/Clinic [...] TID, # 42 tab(s), Refills(s) 0, Pharmacy: [facility]/pharmacy #[id number], 159, cm, 01/23/24 14:05:00 EDT, Height/Length Dosing, 55, kg, 01/23/24 14:05:00 EDT, Weight Dosing 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 Normal [facility] Comment on above: Result Comment: Elec tronically Signed By: Zeina LONGORIA, Lynn Mohr\.br\Date and Time Signed: 04/14/24 12:52 EDT Gastroenterology Office/Clin ic Noteon 01-23-2024 Gastroenterology Office/Clinic Note Chief Complaint ref by dr. patricio for diarrhea HPI Staff This is a [...] Occult Blood- positive Last EGD/Colon w/ Dr Zuniga 08/16/22 POSTOPERATIVE DIAGNOSIS: Mild antral gastritis as [...] TID, # 42 tab(s), Refills(s) 0, Pharmacy: [facility]/pharmacy #[id number], 159, cm, 01/23/24 14:05:00 EDT, Height/Length [...] Cirrhosis o (more content not included)... [facility] Comment on above: Result Comment: Elec tronically Signed By: Zeina LONGORIA, Lynn Mohr\.br\Date and Time Signed: 01/23/24 14:17 EDT Physician Referralon 024 Physician Referral [id number]#1.00TIFF [facility] Coding Summaryon 10-22-2023 Coding Summary HTMLBase 64 RxdnfbrrZPz7cKd+PGhlYWQ+PE1F VEDmM68joOAysK8iC2OKOYfSTcno JTBUFUfIVkZrajFmJT9nsXVxHNSb IC8+TW4iJJTvAaoeyOVbw0N4rLE8 I30jxt7tCGduyCL1HQZbCeDatkqk g7ftiMs1ZWolZjsrEaOg YDTeqC72OIE5uU91Ta38cMOdpONq m8sqrXr7ZlHcPGYbOEW7rAcaBWrm s0AvYJSeT97ioEYil4M9 ORLotSraaBUgMeLchYO5iW4lKZha wdvza3scfqvxRhd1si69uETno3V5 aTF4D0FyhxC1FCPjoPHn IovadUBOxY0qxfjpx7piqsrpWmZe HUJxZSe0LBl4EXEcyMceWlIgDD00 KFB6HFYosvFaC6IuHIQp wFmyHqO5g7I6Vb2XH2TEVjjsM9JH TUFSWTwvdGQ+RJ30ti47T8OdOjnw Grl9NQYgCTU4fJA2iF7r RHAiXNlpi7T3vAG3J8UxvlSjlo7e v3uxAWJeVApsR00tkOAvs5W6MTFy mMU1KMYyfKrhZrVqpI89 Oyc+DOCmoUlck5PcIbrij4ymg7kf eDh0VdbxGHWecyXspDeyIMT1l2Xi Be1sPINuiAA7aMK4kC9h GeIeHkT8FIabL465GmJewRPzBmas Y54jU6AbqJX+SHYsOqp6RALatKzn TC6nC8RrIGCntzjerEHd wZokDP4xKDMkabtmNXCoyJ7yONMa K9p1RvZbUmI5ZIriW9XdAXTbkygm Kw37rF7cQtRvYeM4BDmk H9NmhoI8RUNlzLOwAUffDVX6V07i g7W6SLGiPCXmJAE1zOW0tC0rgWre bjogbGVmdDsgdmVydGlj QPbpANsnV215NPEpuHqwQnIhJPod ZyBEYXRlOiAgMTIvMTgvMjAyMzwv dGQ+MXTaRMZ0cEeqRZJz dORfLCndYg4qbDzsmGjnDW0uNHAf ojcgFXPfbY7xPVMlySAkhOmyUR7m YSJvzqrez783PxCdTGJ6 HTHsoKMeF9XgbE0eHzFsQJWyWMMj R8JloDNkODahA576KLvkHlV8RWNm xvQqY4KqVHPsaKolMjU8 m9G0Ni2Hc0CmnrijF2DehHTjAgYw KjzwYSu6Y8EpEcdunIM+MR97ZVUj KV74RNd0OAM8aGgyKThd RIUkF6JfeE9iOgGmNAKmGMAzMcc+ PHRhYmxlIHdpZHRoPScxMDAlJyBz uXlmSS1vYw6kZCVbHKHt bSmmhFBdZrNff8muLDNfZRbnGG7e xPkhQ0VfeLU0HRXlj0r5Fv43H82h V1VzoKP+OYQzhQV4oFP6 xU9fSrLfRyQ3JVqjI146WtPhvTRe Ugxai3yem2lthCl5GmJ6HNGlirPo eYmkAGG6o1KnJb01Z52d MDwyCPZgHISsGFHvQEHvnQaotw1k zV1yKe9+OWNkiYG2kTZ3rN9qIxUo DmD5LXlbL468BbEfrLAa Niyqn9njt5cddOu7KpAdGRQsolGw wGukXMH2x3TaPz35K0IhgUhfn4Rr Drl9si71jNIsi5D2mEM5 L3TgZKWsfspatQNskZrnNJ6hEYCs bafeIHZzqH2pPNMrA6u2AoDvZsS5 EFpuO8KytsY4SFDxiYXe TZSysJTEuQ3gtmdgt4puyctaGiFq KSMmQBs0IHw5MPHrfDceSdOeOHI3 HjV6HGG0qWRbcR6wjFfj ewaupM2vGao+QWE5kNCmrBTUBA5n OjwvdGQ+EKWqYSZ4iHpiLXlpNTLr cI6iQIBnD6y5IrXvAvA4 LXkpQ5OzbxM1YCRydWHcJRLseKFD eC5agepfl6ajvanjXjLoMLTdFUt5 LLa0QRHmiSmbJzHeLPD7 BfX4PXR5bICqoP0zjXiatqpggO6e Oyc+OwvcwEeeMFO9KEg9Q4JyHrb7 DJWtxPswVD2qjZKfZKeh Zu8kwKyklIosPY4bNFKflobxd067 RsCvi1jvWBTuzUInVMjcGHA4X39p f8G4CDQfRSCqDYJ6bKR2 lE5pqArzrvfowJLlyZzykoRqwBpe PXdhSJpnM581OCEntIowQlStFZf2 Z0HbGuw7TVCvxPkeCB8k eCJkPFcyHo7laJegcYacPD7hYCAf jrnbm075TdPxc5vlGCWvnUEvSKnl XIW1Y17qp3D2OAXzERLb ATU4fRP6wX1qnOqyuzbuuBQycIlw qzYamBaqLEjaRZxdQ016IIBclLvj HaBjpHb4M6CeHcp7UXZl vTslTJ0imSWvSGdaNq6mcVkqgQmw BH7aNSGhemtgd604OnEab8thRKPh eYSrVWswCCT9K82mq5L9 OBUaZIPhZZW7nDV4kK7vgKhveltc yXTjcTsaxtOcnPqzACncHRknD959 IHRvcDsnPlBhdGllbnQg GTlgQGf4A2GvCsridHS+SH15FXKr DP08fOEgzPGds0ecjTn9OyVkZXCx VDO9hDrhLWtgu8LlVMRi L14jvREuk2E1FTWxgCxaiDUjJhOn rNX0dL1tTUgadippk0fgtodfUmxt w0phum43dF83I12eTFha SNYjDTJjUGOjHLQguFczse8byX7p Ii8+LQTpwPH7bNH2aY6qUCIqVoI9 MCibP573MbDkwJMrMksp d8tsr5ldfNo2VgT5DQXbfuXygKqp WRL2g7VhYn14N59cXJpdEVLoJHYz VEYoGYCxaWswsa4txA1i Ii8+NFZruKH5hFS9yU5gEmKmHrP0 XSsrQ453GbZrsQAsTtfiT76mT6Yo dXA+JCHsNyg4DMRlhEjz NW0hqVFaABmwCc3eVQV7YkLjXbMd GElrE9BnSTTpjtiswjkipXT4LHZu XBJquQ27Nc0evOycHXXn uFQZeE5stgzpt2dzvnnhWoCuTULv NKr6FNe1YERsoAwiIjQgNGV5OvV7 BFP5kNPhxD8fjQjlqcwo jM2hP5GeXAWnpytsOk67tT7sCoTm EbZ8FXsjItz+UkFJRlNOSURFUiwg TUFSWSBBTElDRTwvdGQ+ RHCuDPI4cCfgFMlmHOKddR3rRPFj P0n6BmFxKwL2SIdmJ5JnIIEfchjw Ao53jX6yLkYhUbH6SCpu A0GnjeA7BBDdkJJcMAamEVY6M58p z0S7DVLsOUHmLCA9cIV1qW1pdAgu bjogbGVmdDsgdmVydGlj MCdbGRnhN185OCQdkPxmOzY4OaFz QaL1Mpw3F8FdShu9WETvyCmzSO8p mCQfQIvjCr0efLjbzItq NR6cUYMdpfedGKTdyQ9pIOCfiVWd aFnsVU8gIRMxxupqx514QyXbZDY6 SRFpnXLwS4RzeW0rBxWz OLOiUXDjV9HzbMDwMWkdE396EGru MiK6JPPjfdXqY7TmIBFvvMmuPsZ6 u7N1Jr11JRXXBDKfluia dGQ+PCKdVGU8eBjqEWraTFCshU1h HEGtC2y9BeUlHbV7TRewG0YqOLDl xeajRi24iK9yHnOcYwD4 IHnzF2EozoZ7XKDhjCLsKXrzDRC3 D57to1Y3CRViJGHvQQZ3cUH8hV7o bGlnbjogbGVmdDsgdmVy cEplYMjhCNttC825ADCriZdnYbNW TUFMRTwvdGQ+AQLgQQO2eDqxQVhx AAZloP0dOUYfW4t1LnPk BdK1ADkzE3DsMHMzncukGp65gN3a AuMbRxL4ZUqrJ6TwzvI1RLTywSWh FShrRKL7N40xe2H1YMCv DGDbLXJ8nEE7nV1gdWsckggvcMIg oYwylrNirValCIgvWXnmU463CQNw sJyiBormpND8xBEmyXna dGQ+XH19sw91P8QrTkepKrr1ZWHn RMJ3pNP9rD0fNHEcXSerb5M7mGR8 X0DvmfOgqo8zq0geGRSp IAxoN66drFCoi8O1YODjxPQ5EQMl xWxtHkGjgQ48Spb+SLSkoRnsp8Ua Vpouc8cmt5nisBv3YrPg NYGvtnKgcNeqOXO7o4RwQu48A83j UKerTLHoLSKnRKYpPZOdsCkndo7d vO1xPk2+WTKzoKA5gEE4 gU0xAbLaTgC7VOlhL876NbUjiIBs Fsohm4yqf7cceEo7RlAaUEAvcqDj oJvyYXV7f1VaYz58M4Js kHkds7WkYne7ab29sDTnv5O1mUO4 I4QgONGjraxjcJAsrGejWO3jOHFa zzuoXHQdhE7lNFOhM1w3 PnQfStH0AMvzT7QjjbQ2VVPnvWMq BRXzjSQPyG5xtcarr1mmhqekGlYe EKWmBGa5GCo9ZRQjiSpc HrKdYJQ4JyX3LJN1nHVatE1vrGzh gkuxkL0mXzb+TDh4k2updAYyQD5v kQK7SY20ZD32hAIig1Q6 wWC6A9ByQMYirktxjqivbAQ1TUJw NTPfsU58Ol3irEydYe0zWENpMOA5 HUHxnIBgD4AnxL5iZaGi DLYhGRKlR5HpvNWcYOszF645ACum NdF1CAStxtVdD1NmZCAfpBfwMxY2 b4U6Pz3NSK41HJ74BE44 lWRpg4I5jAZ8K8ZfVKLganvwsxze bJZ9FKVpFXBmgE21Lv4hhNtaUl3n UBEoJJQ0FOTcxKSwC7Gf yN5rLzCmCHCiIDUfI5BaaGKhCScv D543MNixYqZ0COTzpcPuS4NdZDPx xLopEyD9z2V6Gy2MFc08 DF23PC38kIZbi0J8qNK9Y6BdHQXs midfjyzmbOM3LUHaJGQsvK58Qu5d vAiiSo4yUTTpTQJ1PPYv jVObZ1TubE8iFzSwRANtRCOgC5Pm hVOxXGauT744QDkbWsC6CULzhmMw Z8AgZPCujExuPjS1o6E7 Jd1XHVjfhek6S8HnCytheAZ+PC90 TXQvHY14cAEtxINcf9tlgLb9PlSu MHFnGJK3xJgqEZaat9Dk ZXI (more content not included)... Normal [facility] C Bloodon 10-18-2023 C Blood No growth at 5 Days Normal [facility] Comment on above: Performed By: #### 2 [id number] #### [facility] (DEFAULT) [address] [place] [address] Consent Formson 10-17-2023 Consent Forms [id number]#[address] [place] [address] Outside Recordson 10-17-2023 Outside Records [id number]#1.00[facility] Provider Orderson 10-17-2023 Provider Orders [id number]#1.00[facility] Telemetry Stripson 3 Telemetry Strips [id number]#1.00[facility] Therapeutic Documentation on 10-16-2023 Therapeutic Documentation [id number]#[address] [place] [address] C Bloodon 10-16-2023 C Blood patient went to CAT scan Nurse from [address] [place] [address] will call when patient is back to her room @1440 nabil No growth at 5 Days [facility] Comment on above: Performed By: #### 6 [id number] ####[facility] (DEFAULT)[address] [place] [address] CRPon 10-16-2023 CRP 3.1 mg/dL High <=0.5 [facility] Comment on above: Performed By: #### 2 [id number], [id number] #### [facility] (DEFAULT) [address] [place] [id number] Inpatient Patient Summaryon 10-16-2023 Inpatient Patient Summary [address] [address] Patient Discharge Instructions Name: ROMEO BULLOCK : 1940 Patient Address: [address] [place] [address] Primary Care Provider: Name: SANTIAGO PATRICIO After you are discharged if you find you have any questions, please, call [phone] ext [phone] to speak to a nurse. The Pharmacy at [facility] is open Sunday through Sunday [...] alcohol and/or drug addiction problems; contact the Mental Health [facility] Recovery Board [facility] 28/05 Crisis Hotline -Text 4HOPE to 942053. If you received any narcotics, sedation, or [...] business decisions or sign any legal documents [facility] would like to thank you for allowing us to assist you with your healthcare needs. The following includes patient education materials and information regarding your injury/illness. ROMEO BULLOCK has been given the following list of follow-up instructions, prescriptions, and patient education materials: Follow-up Instructions With: Address: When: JOB AGUILAR DO [address] [place] [address] Within 10 to 12 days Comments: orthopedic follow up With: Address: When: Jamal Vizcarra [address] [place] [address], [address] [place] [address] Business (1) 10/26/2023 10:30 AM [...] 30 mg o (more content not included)... 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 Reviewed regimen upon discharge which is appropriate and correct. Did not family and marriage counsellor patient is going to shelter. [Electronically Signed on: 10/16/2023 11:12 EST] Jamal Butler [Verified on: 10/16/2023 11:12 EST] Jamal Butler Normal [facility] Sed Rateon 10-16-2023 Sed Rate 83 mm/hr High 0-20 [facility] Comment on above: Performed By: #### 2 [id number], [id number] #### [facility] (DEFAULT) [address] [place] [address] .Auto Diff 1on 10-15-2023 Auto [place] % 9 % Normal -12 [facility] Comment on above: Performed By: #### 2 [id number], [id number], [id number], [id number], [id number] #### [facility] (DEFAULT) [address] [place] [address] Baso Abs# 0.0 x10 Normal 0.0-0.2 [facility] Comment on above: Performed By: #### 2 [id number], [id number], [id number], [id number], [id number] #### [facility] (DEFAULT) [address] [place] [address] Basophils/100 WBC (Bld) 0.2 % Normal 0.2-2.0 [facility] Comment on above: Performed By: #### 2 896071, [id number], 02989661, 5445956, 5084981 #### [facility] (DEFAULT) [address] [place] [address] Eos Abs# 0.1 x10 Normal 0.0-0.4 [facility] Comment on above: Performed By: #### 2 279161, [id number], 82468893, 0870357, 0091969 #### [facility] (DEFAULT) [address] [place] [address] Eosinophils/100 WBC (Bld) 0.8 % Low 0.9-4.0 [facility] Comment on above: Performed By: #### 2 554472, [id number], 59988368, 8043637, 3953344 #### [facility] (DEFAULT) [address] [place] [address] Lymph Abs# 1.1 x10 Low 1.3-2.9 [facility] Comment on above: Performed By: #### 2 487687, [id number], 38968588, 3046719, 4947479 #### [facility] (DEFAULT) [address] [place] [address] Lymphocytes/100 WBC (Bld) 13 % Low 14-48 [facility] Comment on above: Performed By: #### 2 715062, [id number], 57746971, 5031553, 4144360 #### [facility] (DEFAULT) [address] [place] [address] [place] Abs# 0.8 x10 Normal 0.0-0.8 [facility] Comment on above: Performed By: #### 2 499268, [id number], 83890469, 1330374, 6092997 #### [facility] (DEFAULT) [address] [place] [address] Neut Abs# 6.5 x10 Normal 1.5-9.2 [facility] Comment on above: Performed By: #### 2 585211, [id number], 85831746, 6493638, 9436827 #### [facility] (DEFAULT) [address] [place] [address] 66940 Neutrophils/100 WBC (Bld) 76 % Normal 44-88 [facility] Comment on above: Performed By: #### 2 382989, [id number], 45773999, 3114297, 7388010 #### [facility] (DEFAULT) [address] [place] [address] BMP Standardon 10-15-2023 Breakpoint Chem Normal [facility] Comment on above: Performed By: #### 2 149094, [id number], 26531832, 1097709, 5962348 #### [facility] (DEFAULT) [address] [place] [address] eGFR Non AA >60 Invalid Interpretation Code [facility] Comment on above: Performed By: #### 2 822562, [id number], 92380055, 8614712, 8185907 #### [facility] (DEFAULT) [address] [place] [address] 74068 eGFR AA >60 Invalid Interpretation Code [facility] Comment on above: Performed By: #### 2 067979, [id number], 21886033, 7404454, 6889535 #### [facility] (DEFAULT) [address] [place] [address] 38108 Anion gap [Moles/Vol] 7.4 mmol/L Normal 5.0-19.0 [facility] Comment on above: Performed By: #### 2 378334, [id number], 73093097, 5739596, 6783729 #### [facility] (DEFAULT) [address] [place] [address] 23405 Calcium [Mass/Vol] 8.8 mg/dL Low 8.9-10.3 [facility] Comment on above: Performed By: #### 2 981829, [id number], 98791035, 1031509, 3418636 #### [facility] (DEFAULT) [address] [place] [address] 87454 Chloride [Moles/Vol] 106 mmol/L Normal 101-111 [facility] Comment on above: Performed By: #### 2 194968, [id number], 57312044, 7645714, 1055876 #### [facility] (DEFAULT) [address] [place] [address] 76727 CO2 [Moles/Vol] 26 mmol/L Normal 21-32 [facility] Comment on above: Performed By: #### 2 366097, [id number], 86955261, 9914850, 2346995 #### [facility] (DEFAULT) [address] [place] [address] Creatinine [Mass/Vol] 0.88 mg/dL Normal 0.60-1.30 [facility] Comment on above: Performed By: #### 2 239802, [id number], 01701594, 7476663, 4273932 #### [facility] (DEFAULT) [address] [place] [address] Glucose [Mass/Vol] 109.0 mg/dL Normal 74.0-118.0 [facility] Comment on above: Performed By: #### 2 711946, 7196945609, 83063446, 5760057, 0766990 #### [facility] (DEFAULT) [address] [place] [address] 95546 Osmolality 273 mOsm/L Invalid Interpretation Code [facility] Comment on above: Performed By: #### 2 653989, [id number], 53186319, 0416860, 1695716 #### [facility] (DEFAULT) [address] [place] [address] 39062 Potassium [Moles/Vol] 4.4 mmol/L Normal 3.6-5.1 [facility] Comment on above: Performed By: #### 2 408826, [id number], 22360392, 4453428, 0929776 #### [facility] (DEFAULT) [address] [place] [address] 28037 Sodium [Moles/Vol] 135.0 mmol/L Low 136.0-144.0 [facility] Comment on above: Performed By: #### 2 634160, [id number], 55370455, 0753996, 0038225 #### [facility] (DEFAULT) [address] [place] [address] Urea nitrogen [Mass/Vol] 19 mg/dL Normal 8-26 [facility] Comment on above: Performed By: #### 2 328065, [id number], 68989559, 4014774, 0305581 #### [facility] (DEFAULT) [address] [place] [address] Urea nitrogen/Creatinin e [Mass ratio] 21.5 mg/mg High 4.6-16.2 [facility] Comment on above: Performed By: #### 2 117513, [id number], 75629678, 6945920, 8312871 #### [facility] (DEFAULT) [address] [place] [address] CBC w/ Auto Diffon Erythrocyte distribution width (RBC) [Ratio] 15.3 % High 11.5-15.0 [facility] Comment on above: Performed By: #### 2 570975, [id number], 73659269, 6943969, 7519063 #### [facility] (DEFAULT) [address] [place] [address] Hematocrit (Bld) [Volume fraction] 29.8 % Low 33.7-40.4 [facility] Comment on above: Performed By: #### 2 517104, 0490712167, 85054070, 7924405, 0934634 #### [facility] (DEFAULT) [address] [place] [address] Hemoglobin (Bld) [Mass/Vol] 9.9 g/dL Low 11.3-15.9 [facility] Comment on above: Performed By: #### 2 187293, 7439740359, 04830351, 6808552, 2047649 #### [facility] (DEFAULT) [address] [place] [address] Man Diff? Auto Invalid Interpretation Code [facility] Comment on above: Performed By: #### 2 431379, [id number], 06444713, 1099272, 5685887 #### [facility] (DEFAULT) [address] [place] [address] 83796 MCH (RBC) [Entitic mass] 30 pg Normal 24-34 [facility] Comment on above: Performed By: #### 2 560573, 8831499807, 35518553, 3143473, 0558867 #### [facility] (DEFAULT) [address] [place] [address] 99528 MCHC (RBC) [Mass/Vol] 33 g/dL Normal 26-37 [facility] Comment on above: Performed By: #### 2 134922, 5821130929, 81720377, 4707352, 1708886 #### [facility] (DEFAULT) [address] [place] [address] 59899 MCV (RBC) [Entitic vol] 90 fL Normal 81-100 [facility] Comment on above: Performed By: #### 2 409074, [id number], 01536603, 6835507, 6044901 #### [facility] (DEFAULT) [address] [place] [address] 96905 Platelet 363 x10 Normal 138-427 [facility] Comment on above: Performed By: #### 2 776856, 0395897979, 40242090, 1855809, 7553030 #### [facility] (DEFAULT) [address] [place] [address] 88598 Platelet mean volume (Bld) [Entitic vol] 6.1 fL Low 6.3-10.2 [facility] Comment on above: Performed By: #### 2 146393, [id number], 08789106, 4180688, 8452948 #### [facility] (DEFAULT) [address] [place] [address] 30947 RBC 3.31 x10 Low 3.70-5.30 [facility] Comment on above: Performed By: #### 2 472894, 5440772053, 46234097, 1706235, 9194953 #### [facility] (DEFAULT) [address] [place] [address] 02868 WBC 8.5 x10 Normal 3.5-10.5 [facility] Comment on above: Performed By: #### 2 838504, 1771437546, 75909901, 1777581, 4290107 #### [facility] (DEFAULT) [address] [place] [address] 30373 CRPon 10-15-2023 CRP 2.1 mg/dL High <=0.5 [facility] Comment on above: Performed By: #### 2 503985, 5620370310, 75370341, 4697424, 6744122 ####[facility] (DEFAULT)[address] [place] [address] Nutrition Noteon 10-15-2023 Nutrition Note Per intake records, Pts avg 75+% of meals. Last BM 10/13. 10/15 labs reviewed, CRP/sed rate slowly improving. PICC line in place for IV atb. Discharge anticipated for tomorrow. Normal [facility] Sed Rateon 10-15-2023 Sed Rate 78 mm/hr High 0-20 [facility] Comment on above: Performed By: #### 2 986246, [id number], 76446297, 7883938, 6356672 ####[facility] (DEFAULT)[address] [place] [address] 86384 XR Chest 1 View Frontalon XR Chest [...] 10/15/23 1:04 pm Technologist: Peggy LOMELI Normal [facility] C Fluidon 10-14-2023 C Fluid Moderate growth [...] <=0.5 Verified Vanc S 0.5 Verified Normal [facility] Comment on above: Performed By: #### 2 599400, 6544965 #### [facility] (DEFAULT) [address] [place] [address] 81263 CRPon 10-14-2023 CRP 1.8 mg/dL High <=0.5 [facility] Comment on above: Performed By: #### 2 235560, 2363359 #### [facility] (DEFAULT) [address] [place] [address] 74217 Sed Rateon 10-14-2023 Sed Rate 74 mm/hr High 0-20 [facility] Comment on above: Performed By: #### 2 125679, 8636589 #### [facility] (DEFAULT) [address] [place] [address] 57702 .Auto Diff 110-13-2023 Auto [place] % 5 % Normal 11-16 [facility] Comment on above: Performed By: #### 2 231898, 8171041 #### [facility] (DEFAULT) [address] [place] [address] 34747 Baso Abs# 0.0 x10 Normal 0.0-0.2 [facility] Comment on above: Performed By: #### 2 042675, 0051761 #### [facility] (DEFAULT) [address] [place] [address] 12821 Basophils/100 WBC (Bld) 0.2 % Normal 0.2-2.0 [facility] Comment on above: Performed By: #### 2 078596, 9468084 #### [facility] (DEFAULT) [address] [place] [address] 27452 Eos Abs# 0.0 x10 Normal 0.0-0.4 [facility] Comment on above: Performed By: #### 2 237813, 0120535 #### [facility] (DEFAULT) [address] [place] [address] Eosinophils/100 WBC (Bld) 0.1 % Low 0.9-4.0 [facility] Comment on above: Performed By: #### 2 556886, 4082766 #### [facility] (DEFAULT) [address] [place] [address] Lymph Abs# 1.0 x10 Low 1.3-2.9 [facility] Comment on above: Performed By: #### 2 470393, 3165034 #### [facility] (DEFAULT) [address] [place] [address] Lymphocytes/100 WBC (Bld) 9 % Low 14-48 [facility] Comment on above: Performed By: #### 2 428453, 1222960 #### [facility] (DEFAULT) [address] [place] [address] [place] Abs# 0.6 x10 Normal 0.0-0.8 [facility] Comment on above: Performed By: #### 2 012549, 0327151 #### [facility] (DEFAULT) [address] [place] [address] Neut Abs# 10.1 x10 High 1.5-9.2 [facility] Comment on above: Performed By: #### 2 741161, 1030772 #### [facility] (DEFAULT) [address] [place] [address] 10681 Neutrophils/100 WBC (Bld) 86 % Normal 44-88 [facility] Comment on above: Performed By: #### 2 581844, 5165008 #### [facility] (DEFAULT) [address] [place] [address] 05541 BMP Standardon 10-13-2023 Breakpoint Chem Normal [facility] Comment on above: Performed By: #### 2 539191, 9755748 #### [facility] (DEFAULT) [address] [place] [address] 73909 eGFR Non AA >60 Invalid Interpretation Code [facility] Comment on above: Performed By: #### 2 058276, 6926349 #### [facility] (DEFAULT) [address] [place] [address] 39792 eGFR AA >60 Invalid Interpretation Code [facility] Comment on above: Performed By: #### 2 530865, 0758649 #### [facility] (DEFAULT) [address] [place] [address] 22413 Calcium [Mass/Vol] 8.5 mg/dL Low 8.9-10.3 [facility] Comment on above: Performed By: #### 2 812486, 4311297 #### [facility] (DEFAULT) [address] [place] [address] 36980 Chloride [Moles/Vol] 105 mmol/L Normal 101-111 [facility] Comment on above: Performed By: #### 2 223581, 8499288 #### [facility] (DEFAULT) [address] [place] [address] 60631 CO2 [Moles/Vol] 24 mmol/L Normal 21-32 [facility] Comment on above: Performed By: #### 2 614522, 3213698 #### [facility] (DEFAULT) [address] [place] [address] 71944 Creatinine [Mass/Vol] 0.76 mg/dL Normal 0.60-1.30 [facility] Comment on above: Performed By: #### 2 070533, 0893797 #### [facility] (DEFAULT) [address] [place] [address] 44917 Glucose [Mass/Vol] 113.0 mg/dL Normal 74.0-118.0 [facility] Comment on above: Performed By: #### 2 075492, 0283957 #### [facility] (DEFAULT) [address] [place] [address] 85779 Potassium [Moles/Vol] 4.9 mmol/L Normal 3.6-5.1 [facility] Comment on above: Performed By: #### 2 267453, 7387412 #### [facility] (DEFAULT) [address] [place] [address] 78882 Sodium [Moles/Vol] 135.0 mmol/L Low 136.0-144.0 [facility] Comment on above: Performed By: #### 2 010020, 8051471 #### [facility] (DEFAULT) [address] [place] [address] 42120 Urea nitrogen [Mass/Vol] 33 mg/dL High 8-26 [facility] Comment on above: Performed By: #### 2 690843, 6600090 #### [facility] (DEFAULT) [address] [place] [address] 04730 Anion gap [Moles/Vol] 10.9 mmol/L Normal 5.0-19.0 [facility] Comment on above: Performed By: #### 2 699391, 0499257 #### [facility] (DEFAULT) [address] [place] [address] 66813 Osmolality 278 mOsm/L Invalid Interpretation Code [facility] Comment on above: Performed By: #### 2 556070, 1098186 #### [facility] (DEFAULT) [address] [place] [address] 90853 Urea nitrogen/Creatinin e [Mass ratio] 43.4 mg/mg High 4.6-16.2 [facility] Comment on above: Performed By: #### 2 073588, 5194450 #### [facility] (DEFAULT) [address] [place] [address] 86770 C Bloodon 10-13-2023 C Blood Bacillus species No ANICETO performed on this organism Results called to Romeo Leonard RN at 2S by CDD and results read back for confirmation on 10/12/2023 05:12:42 Normal [facility] Comment on above: Performed By: #### 2 823852, 7174573 #### [facility] (DEFAULT) [address] [place] [address] 18250 CBC w/ Auto Diffon 3 Erythrocyte distribution width (RBC) [Ratio] 15.0 % Normal 11.5-15.0 [facility] Comment on above: Performed By: #### 2 210225, 4532871 #### [facility] (DEFAULT) [address] [place] [address] 13504 Hematocrit (Bld) [Volume fraction] 26.7 % Low 33.7-40.4 [facility] Comment on above: Performed By: #### 2 259013, 0150625 #### [facility] (DEFAULT) [address] [place] [address] 83615 Hemoglobin (Bld) [Mass/Vol] 8.9 g/dL Low 11.3-15.9 [facility] Comment on above: Performed By: #### 2 668123, 5407489 #### [facility] (DEFAULT) [address] [place] [address] Man Diff? Auto Invalid Interpretation Code [facility] Comment on above: Performed By: #### 2 497168, 9039346 #### [facility] (DEFAULT) [address] [place] [address] 18102 MCH (RBC) [Entitic mass] 30 pg Normal 24-34 [facility] Comment on above: Performed By: #### 2 069114, 1483213 #### [facility] (DEFAULT) [address] [place] [address] 81001 MCHC (RBC) [Mass/Vol] 33 g/dL Normal 26-37 [facility] Comment on above: Performed By: #### 2 209055, 8239142 #### [facility] (DEFAULT) [address] [place] [address] 66044 MCV (RBC) [Entitic vol] 89 fL Normal 81-100 [facility] Comment on above: Performed By: #### 2 948092, 2323507 #### [facility] (DEFAULT) [address] [place] [address] 72803 Platelet 386 x10 Normal 138-427 [facility] Comment on above: Performed By: #### 2 159474, 4267867 #### [facility] (DEFAULT) [address] [place] [address] 38830 Platelet mean volume (Bld) [Entitic vol] 6.1 fL Low 6.3-10.2 [facility] Comment on above: Performed By: #### 2 940934, 7269715 #### [facility] (DEFAULT) [address] [place] [address] 83416 RBC 3.00 x10 Low 3.70-5.30 [facility] Comment on above: Performed By: #### 2 368462, 4958268 #### [facility] (DEFAULT) [address] [place] [address] 92436 WBC 11.8 x10 High 3.5-10.5 [facility] Comment on above: Performed By: #### 2 439684, 6529490 #### [facility] (DEFAULT) [address] [place] [address] 94338 CRPon 10-13-2023 CRP 3.2 mg/dL High <=0.5 [facility] Comment on above: Performed By: #### 2 493135, 7372486 #### [facility] (DEFAULT) [address] [place] [address] 06491 Sed Rateon 10-13-2023 Sed Rate 82 mm/hr High 0-20 [facility] Comment on above: Performed By: #### 2 088545, 7848765 #### [facility] (DEFAULT) [address] [place] [address] 18011 .Auto Diff 110-12-2023 Auto [place] % 6 % Normal -12 [facility] Comment on above: Performed By: #### 1 3308168, [id number], 8304058 ####[facility] (DEFAULT)[address] [place] [address] 12882 Baso Abs# 0.0 x10 Normal 0.0-0.2 [facility] Comment on above: Performed By: #### 1 9134844, 7361194969, 0994231 ####[facility] (DEFAULT)[address] [place] [address] 68254 Basophils/100 WBC (Bld) 0.1 % Low 0.2-2.0 [facility] Comment on above: Performed By: #### 1 2059917, 4600388344, 2975451 ####[facility] (DEFAULT)[address] [place] [address] 59371 Eos Abs# 0.0 x10 Normal 0.0-0.4 [facility] Comment on above: Performed By: #### 1 0040663, 2615187803, 2555004 ####[facility] (DEFAULT)[address] [place] [address] 52854 Eosinophils/100 WBC (Bld) 0.0 % Low 0.9-4.0 [facility] Comment on above: Performed By: #### 1 9908409, [id number], 7230305 ####[facility] (DEFAULT)[address] [place] [address] Lymph Abs# 0.7 x10 Low 1.3-2.9 [facility] Comment on above: Performed By: #### 1 1411793, [id number], 9487258 ####[facility] (DEFAULT)[address] [place] [address] 21925 Lymphocytes/100 WBC (Bld) 6 % Low 14-48 [facility] Comment on above: Performed By: #### 1 7248781, 6504002157, 3428488 ####[facility] (DEFAULT)[address] [place] [address] [place] Abs# 0.7 x10 Normal 0.0-0.8 [facility] Comment on above: Performed By: #### 1 0566884, [id number], 1717365 ####[facility] (DEFAULT)[address] [place] [address] 10053 Neut Abs# 10.3 x10 High 1.5-9.2 [facility] Comment on above: Performed By: #### 1 5394654, 4201061359, 4895023 ####[facility] (DEFAULT)[address] [place] [address] 46114 Neutrophils/100 WBC (Bld) 88 % Normal 44-88 [facility] Comment on above: Performed By: #### 1 4723155, [id number], 6311126 ####[facility] (DEFAULT)[address] [place] [address] CBC w/ Auto Diffon 3 Erythrocyte distribution width (RBC) [Ratio] 15.5 % High 11.5-15.0 [facility] Comment on above: Performed By: #### 1 9958358, [id number], 0829295 ####[facility] (DEFAULT)[address] [place] [address] Hematocrit (Bld) [Volume fraction] 29.6 % Low 33.7-40.4 [facility] Comment on above: Performed By: #### 1 0571905, [id number], 0889009 ####[facility] (DEFAULT)[address] [place] [address] Hemoglobin (Bld) [Mass/Vol] 10.1 g/dL Low 11.3-15.9 [facility] Comment on above: Performed By: #### 1 [id number], [id number], [id number] ####[facility] (DEFAULT)[address] [place] [address] Man Diff? Auto Invalid Interpretation Code [facility] Comment on above: Performed By: #### 1 [id number], [id number], [id number] ####[facility] (DEFAULT)[address] [place] [address] MCH (RBC) [Entitic mass] 30 pg Normal 24-34 [facility] Comment on above: Performed By: #### 1 [id number], [id number], [id number] ####[facility] (DEFAULT)[address] [place] [id number] MCHC (RBC) [Mass/Vol] 34 g/dL Normal 26-37 [facility] Comment on above: Performed By: #### 1 [id number], [id number], [id number] ####[facility] (DEFAULT)[address] [place] [address] MCV (RBC) [Entitic vol] 88 fL Normal 81-100 [facility] [facility] Comment on above: Performed By: #### 1 2442583, [id number], 7651392 ####[facility] (DEFAULT)[address] [place] [address] 31508 Platelet 434 x10 High 138-427 [facility] Comment on above: Performed By: #### 1 3401196, [id number], 1204878 ####[facility] (DEFAULT)[address] [place] [address] Platelet mean volume (Bld) [Entitic vol] 6.2 fL Low 6.3-10.2 [facility] Comment on above: Performed By: #### 1 7983845, 4921943825, 3112104 ####[facility] (DEFAULT)[address] [place] [address] RBC 3.38 x10 Low 3.70-5.30 [facility] Comment on above: Performed By: #### 1 4505834, [id number], 0769497 ####[facility] (DEFAULT)[address] [place] [address] WBC 11.7 x10 High 3.5-10.5 [facility] Comment on above: Performed By: #### 1 9078679, 3966752957, 3987898 ####[facility] (DEFAULT)[address] [place] [address] CMP Standardon 10-12-2023 eGFR Non AA 57 mL/min/1.73m2 Invalid Interpretation Code [facility] Comment on above: Performed By: #### 1 8100088, 9448101584, 4062235 ####[facility] (DEFAULT)[address] [place] [address] eGFR AA >60 Invalid Interpretation Code [facility] Comment on above: Performed By: #### 1 7306495, 4687307880, 7023065 ####[facility] (DEFAULT)[address] [place] [address] Albumin [Mass/Vol] 2.4 g/dL Low 3.5-5.0 [facility] Comment on above: Performed By: #### 1 5732048, 6204322175, 9212425 ####[facility] (DEFAULT)[address] [place] [address] Albumin/Globulin [Mass ratio] 0.6 {ratio} Low 1.4-2.6 [facility] Comment on above: Performed By: #### 1 3224034, 2877091717, 3855105 ####[facility] (DEFAULT)[address] [place] [address] Alk Phos 105 IU/L High 32-91 [facility] Comment on above: Performed By: #### 1 8873485, [id number], 0465037 ####[facility] (DEFAULT)[address] [place] [address] 54620 ALT [Catalytic activity/Vol] 19.0 U/L Normal 14.0-54.0 [facility] Comment on above: Performed By: #### 1 4651209, 0314750147, 6784035 ####[facility] (DEFAULT)[address] [place] [address] 39069 Anion gap [Moles/Vol] 14.7 mmol/L Normal 5.0-19.0 [facility] Comment on above: Performed By: #### 1 8042716, 2890660043, 3638389 ####[facility] (DEFAULT)[address] [place] [address] 27096 AST [Catalytic activity/Vol] 17 U/L Normal 15-41 [facility] Comment on above: Performed By: #### 1 4781128, 7003650061, 6501971 ####[facility] (DEFAULT)[address] [place] [address] 95449 Bili Total 0.6 mg/dL Normal 0.3-1.2 [facility] Comment on above: Performed By: #### 1 5008896, 0027692222, 4716541 ####[facility] (DEFAULT)[address] [place] [address] 15722 Calcium [Mass/Vol] 8.8 mg/dL Low 8.9-10.3 [facility] Comment on above: Performed By: #### 1 0698433, 0339936266, 1715070 ####[facility] (DEFAULT)[address] [place] [address] 89703 Chloride [Moles/Vol] 103 mmol/L Normal 101-111 [facility] Comment on above: Performed By: #### 1 5828803, 4832619022, 3343747 ####[facility] (DEFAULT)[address] [place] [address] 02385 CO2 [Moles/Vol] 25 mmol/L Normal 21-32 [facility] Comment on above: Performed By: #### 1 2547970, 2651748593, 9081730 ####[facility] (DEFAULT)[address] [place] [address] 06571 Creatinine [Mass/Vol] 0.94 mg/dL Normal 0.60-1.30 [facility] Comment on above: Performed By: #### 1 2608377, 4715090314, 8053271 ####[facility] (DEFAULT)[address] [place] [address] 04710 Globulin (S) [Mass/Vol] 3.5 g/dL Normal 1.5-4.3 [facility] Comment on above: Performed By: #### 1 0205956, 0341414186, 1879782 ####[facility] (DEFAULT)[address] [place] [address] 59608 Glucose [Mass/Vol] 161.0 mg/dL High 74.0-118.0 [facility] Comment on above: Performed By: #### 1 4451582, 3093637702, 9800900 ####[facility] (DEFAULT)[address] [place] [address] 91017 Osmolality 286 mOsm/L Invalid Interpretation Code [facility] Comment on above: Performed By: #### 1 9120386, 5867744064, 2821416 ####[facility] (DEFAULT)[address] [place] [address] 05137 Potassium [Moles/Vol] 4.7 mmol/L Normal 3.6-5.1 [facility] Comment on above: Performed By: #### 1 2752964, 7655633776, 0096268 ####[facility] (DEFAULT)[address] [place] [address] 21199 Protein [Mass/Vol] 5.9 g/dL Low 6.5-8.1 [facility] Comment on above: Performed By: #### 1 1552616, 1901231902, 7527722 ####[facility] (DEFAULT)[address] [place] [address] 39291 Sodium [Moles/Vol] 138.0 mmol/L Normal 136.0-144.0 [facility] Comment on above: Performed By: #### 1 3311758, 2265208160, 8317103 ####[facility] (DEFAULT)[address] [place] [address] Urea nitrogen [Mass/Vol] 32 mg/dL High 8-26 [facility] Comment on above: Performed By: #### 1 2001067, 8894516165, 4510087 ####[facility] (DEFAULT)[address] [place] [address] 66048 Urea nitrogen/Creatinin e [Mass ratio] 34.0 mg/mg High 4.6-16.2 [facility] Comment on above: Performed By: #### 1 7207919, 5219934137, 3556732 ####[facility] (DEFAULT)[address] [place] [address] 15229 CRPon 10-12-2023 CRP 7.2 mg/dL High <=0.5 [facility] Comment on above: Performed By: #### 2 394625, 0519730 #### [facility] (DEFAULT) [address] [place] [address] Consent Formson 10-12-2023 Consent Forms [id number] [facility] Nutrition Noteon 10-12-2023 Nutrition Note Pt admitted w/ Rt kn ee pain, recent washout. CT scan noting septic arthritis, IV atb initiated. Pt placed on a Regular diet, so far eating 100%. Admit wt 60.8kg no wt hx on file, denied any wt changes per order selector assessment. No chewing/swallowing problems identified. Labs reviewed [...] taking extra protein at home. To follow. [facility] Pharmacy Noteon 10-12-2023 Pharmacy Note This is [...] on: 10/12/2023 10:24 EST] Andrés Grover Normal [facility] Procalcitoninon 10-12-2023 Procalcitonin 0.109 ng/mL Low 0.500-1.000 [facility] Comment on above: Performed By: #### 7 [id number] #### [facility] (DEFAULT) [address] [place] [address] 37594 Sed Rateon 10-12-2023 Sed Rate 74 mm/hr High 0-20 [facility] Comment on above: Performed By: #### 2 448813, 9908475 #### [facility] (DEFAULT) [address] [place] [address] 48418 US Echocardiogram Completeon 10-12-2023 US Echocardiogram Complete [...] Junction2.89 cm F: 2.3 - 2.9 LV Jwcd345.22 g LVOT Diameter 2.09 cm IVC1.25 (<= [...] Single Plane 4 CH 25.69 mLBiplane LA Ssdwlr34.33 mL Single Plane 2 CH67.19 mLLA ESV Index29.65 mL/m2 Right Atrium Area Systole RA Systolic Area A4C9.10 cm2RA Systolic Vol A4C19.30 mL Aortic Valve AoV Peak Velocity1.30 m/sLVOT Peak Velocity1.04 m/s AO Mean Velocity0.86 m/sLVOT Mean Velocity0.61 m/s AO Peak PG6.80 mmHgLVOT Peak PG4.31 mmHg AO Mean PG3.48 mmHgLVOT Mean PG1.86 mmHg AO V2 VTI22.79 cmLVOT V1 VTI20.10 cm ESTUARDO (Vmax)2.73 qr4SBUX Area 3.43 cm2 ESTUARDO (VTI)3.03 cm2SV (LVOT) 68.96 mL Indexed ESTUARDO (VTI)1.85 cm2/m2AI [place] 2.40 m/s2 AI USO883.11 ms Mitral Valve MV Max Rmjljhhu967.09 m/sMV PHT58.48 ms MV E Max Velocity0.55 m/sMVA (PHT)3.76 cm2 MV A Max Velocity0.67 m/sMR FBX218.58 cm E/A Ratio0.8MR Peak Velocity5.74 m/s MV Decel. Djbv920.67 ms TDI Med e' Velocity5.08 cm/sMV E / Medial e' 10.72 Lat e' Velocity6.45 cm/sMV E / Lateral e' 8.45 TV S'16.13 cm/s Pulmonary Valve PV Peak Velocity0.78 m/sPV Peak PG2.43 mmHg LA End Diastolic Carlos.62.56 m/s PV Mean PG1.46 mmHg Tricuspid Valve TR Peak Velocity3.10 m/sRAP Estimate3.00 mmHg TR Peak PG38.55 vcGzKPYP03.55 mmHg Final Signed (Electronic Signature): Marquis Pulido MD 10/12/23 3:45 pm Technologist: ERA [facility] XR Chest 1 View Frontalon XR Chest [...] MD 10/12/23 9:27 am Technologist: SANGEETA SIMPSON [facility] .Auto Diff 10-11-2023 Auto [place] % 7 % Normal 11-16 [facility] Comment on above: Performed By: #### 2 544344, 4013973215, 67100225, 7218492393, 3840226713, 4632401781, 4765851648, 8518385 ####[facility] (DEFAULT)[address] [place] [address] Baso Abs# 0.1 x10 Normal 0.0-0.2 [facility] Comment on above: Performed By: #### 2 474208, 6794251510, 36167816, 1145352549, 5420039852, 7585629413, 5394716575, 4332059 ####[facility] (DEFAULT)[address] [place] [address] 10010 Basophils/100 WBC (Bld) 0.4 % Normal 0.2-2.0 [facility] Comment on above: Performed By: #### 2 717634, 3852635293, 20037275, 7525455805, 5475216870, 5173474797, 2064952211, 6060909 ####[facility] (DEFAULT)[address] [place] [address] 62715 Eos Abs# 0.0 x10 Normal 0.0-0.4 [facility] Comment on above: Performed By: #### 2 617513, 2104365107, 67182345, 6117659680, 3498058048, 9642883318, 4614524273, 8295152 ####[facility] (DEFAULT)[address] [place] [address] 77507 Eosinophils/100 WBC (Bld) 0.2 % Low 0.9-4.0 [facility] Comment on above: Performed By: #### 2 512862, 3598893628, 63695299, 9739229281, 5260510874, 4049203519, 6162321059, 1797684 ####[facility] (DEFAULT)[address] [place] [address] 19676 Lymph Abs# 1.2 x10 Low 1.3-2.9 [facility] Comment on above: Performed By: #### 2 419854, 2235804284, 63285911, 9815037711, 2652187064, 8529221584, 8672944451, 6241905 ####[facility] (DEFAULT)[address] [place] [address] 07578 Lymphocytes/100 WBC (Bld) 8 % Low 14-48 [facility] Comment on above: Performed By: #### 2 730439, 5493262175, 89720165, 6923560578, 9017450491, 0321797855, 8333945428, 8960913 ####[facility] (DEFAULT)[address] [place] [address] 27654 [place] Abs# 1.1 x10 High 0.0-0.8 [facility] Comment on above: Performed By: #### 2 590166, 4101106376, 90474516, 0187260990, 6492509200, 2987076631, 0368180883, 2930867 ####[facility] (DEFAULT)[address] [place] [address] Neut Abs# 13.6 x10 High 1.5-9.2 [facility] Comment on above: Performed By: #### 2 675509, 4696193321, 53149095, 4893551517, 4159582501, 7371763971, 5741972835, 4244736 ####[facility] (DEFAULT)[address] [place] [address] Neutrophils/100 WBC (Bld) 85 % Normal 44-88 [facility] Comment on above: Performed By: #### 2 429466, 9230029060, 99356526, 5173106939, 1639687370, 4949422488, 2940566194, 1625782 ####[facility] (DEFAULT)[address] [place] [address] Anesthesia Noteon 10-11-2023 Anesthesia Note Patient: ROMEO BULLOCK Age: 83 years Sex: FEMALE : 1940 [...] on: 10/11/2023 13:00 EST] Sheryl Dennis DO [facility] Anesthesia Note Patient: ROMEO BULLOCK Age: 83 years Sex: FEMALE : 1940 [...] All Problems HTN (hypertension) / SNOMED CT 9182967677 / Confirmed Hypothyroidism / SNOMED CT 32689014 / Confirmed Histories Family History: No family history items have been selected or recorded. Procedure history: Appendectomy (265593111). History of total hysterectomy (9813123854). Knee (138445927). Comments: 10/11/2023 7:23 Radha Siddiqui RN total left Plantar fasciitis (239094320). Comments: 10/11/2023 7:26 Radha Siddiqui RN left Cholecystectomy (52313032). Metatarsal (13438953). Comments: 10/11/2023 7:25 Radha Siddiqui RN right [...] mmHg (OCT 11:) Weight 60.78 kg (OCT 11) General: Alert and oriented, No acute distress. Airway: Mallampati classification: II (soft palate, fauces, uvula visible). Temporomandibular joint mobility: Good. Mouth: Dentures ( Upper dentures, Partial plate ), Teeth ( Missing ). Neck: Full range of motion. Respiratory: Lungs are clear to auscultation. Cardiovascular: Normal rate, Regular rhythm. Neurologic: Alert, Oriented. Review / Management Laboratory Results Plan [place] [employer]#(ASA) physical status classification: Class [...] on: 10/11/2023 09:23 EST] Sheryl Dennis DO [facility] BF Cell Cnton 10-11-2023 Appear BF Cloudy [facility] Comment on above: Order Comment: right knee fluid Performed By: #### 6 621450 #### [facility] (DEFAULT) [address] [place] [address] 10688 Cell Cnt BF Type Synovial Fl [facility] Comment on above: Order Comment: right knee fluid Performed By: #### 6 937125 #### [facility] (DEFAULT) [address] [place] [address] 13418 Color BF Red [facility] Comment on above: Order Comment: right knee fluid Performed By: #### 6 935548 #### [facility] (DEFAULT) [address] [place] [address] 95812 RBC BF [id number] Invalid Interpretation Code [facility] Comment on above: Order Comment: right knee fluid Performed By: #### 6 956925 #### [facility] (DEFAULT) [address] [place] [address] [place] [id number] Invalid Interpretation Code [facility] Comment on above: Order Comment: right knee fluid Performed By: #### 6 583450 #### [facility] (DEFAULT) [address] [place] [address] 73982 [facility] Standardon 10-11-2023 Breakpoint Chem Normal [facility] Comment on above: Performed By: #### 2 869986, 0570059998, 11512380, 5232150274, 0509490569, 9744896778, 5785753075, 2413670 ####[facility] (DEFAULT)[address] [place] [address] 23946 eGFR Non AA 57 mL/min/1.73m2 Invalid Interpretation Code [facility] Comment on above: Performed By: #### 2 214261, 0815401796, 12447413, 5715583241, 6095578618, 4744100948, 9724960114, 4833112 ####[facility] (DEFAULT)[address] [place] [address] eGFR AA >60 Invalid Interpretation Code [facility] Comment on above: Performed By: #### 2 725059, 5386199960, 92114651, 9833299936, 6352767134, 1566278384, 1623874621, 9248482 ####[facility] (DEFAULT)[address] [place] [address] 99180 Anion gap [Moles/Vol] 13.6 mmol/L Normal 5.0-19.0 [facility] Comment on above: Performed By: #### 2 756167, 1042906046, 18571382, 9402806756, 3547811601, 8021315167, 2388230724, 7519537 ####[facility] (DEFAULT)[address] [place] [address] 15864 Calcium [Mass/Vol] 9.6 mg/dL Normal 8.9-10.3 [facility] Comment on above: Performed By: #### 2 770856, 5990828068, 79937932, 4714420697, 9736531884, 0831280022, 7240263363, 6784106 ####[facility] (DEFAULT)[address] [place] [address] 15117 Chloride [Moles/Vol] 102 mmol/L Normal 101-111 [facility] Comment on above: Performed By: #### 2 027076, 4312665806, 04221936, 1204834814, 0779586353, 4186929629, 4080612452, 6769415 ####[facility] (DEFAULT)[address] [place] [address] 15637 CO2 [Moles/Vol] 25 mmol/L Normal 21-32 [facility] Comment on above: Performed By: #### 2 124760, 3058711900, 57482339, 9982406267, 6442451331, 1534045998, 0789178851, 8182947 ####[facility] (DEFAULT)[address] [place] [address] 77810 Creatinine [Mass/Vol] 0.93 mg/dL Normal 0.60-1.30 [facility] Comment on above: Performed By: #### 2 259271, 2144156978, 66923867, 4202518672, 7359029146, 5973478633, 7371136551, 8280204 ####[facility] (DEFAULT)[address] [place] [address] 32419 Glucose [Mass/Vol] 114.0 mg/dL Normal 74.0-118.0 [facility] Comment on above: Performed By: #### 2 892271, 9401193682, 55768537, 0595787581, 9042654709, 2189994598, 5310298754, 4645549 ####[facility] (DEFAULT)[address] [place] [address] 57840 Osmolality 279 mOsm/L Invalid Interpretation Code [facility] Comment on above: Performed By: #### 2 194944, 7585714333, 21090500, 0450041271, 7034791192, 3159318886, 9946362013, 8644912 ####[facility] (DEFAULT)[address] [place] [address] 08888 Potassium [Moles/Vol] 4.6 mmol/L Normal 3.6-5.1 [facility] Comment on above: Performed By: #### 2 162323, 5436496681, 45313501, 6552063746, 0636329623, 4237025677, 0822049658, 4169124 ####[facility] (DEFAULT)[address] [place] [address] 02964 Sodium [Moles/Vol] 136.0 mmol/L Normal 136.0-144.0 [facility] Comment on above: Performed By: #### 2 742601, 9280438319, 36193527, 1395879121, 8004803312, 3841149856, 6230226854, 5072775 ####[facility] (DEFAULT)[address] [place] [address] 71601 Urea nitrogen [Mass/Vol] 30 mg/dL High 8- [facility] Comment on above: Performed By: #### 2 120492, 2314013602, 31922295, 5049261374, 0240769092, 1321636579, 8090025471, 0670972 ####[facility] (DEFAULT)[address] [place] [address] 54145 Urea nitrogen/Creatinin e [Mass ratio] 32.2 mg/mg High 4.6-16.2 [facility] Comment on above: Performed By: #### 2 901670, 6268111611, 19001568, 6890051626, 1196869160, 9147410431, 5436755271, 0624012 ####[facility] (DEFAULT)[address] [place] [address] 99828 Body Fluid Diffon 10-11-2023 BF Bands % 2 Invalid Interpretation Code [facility] Comment on above: Order Comment: Right knee fluidVerbal order per Kelly Long Performed By: #### 2 [id number] ####[facility] (DEFAULT)[address] [place] [address] 42072 BF Baso % 0 Invalid Interpretation Code [facility] Comment on above: Order Comment: Right knee fluidVerbal order per Kelly Long Performed By: #### 2 [id number] ####[facility] (DEFAULT)[address] [place] [address] 82087 BF Eos % 0 Invalid Interpretation Code [facility] Comment on above: Order Comment: Right knee fluidVerbal order per Kelly Long Performed By: #### 2 [id number] ####[facility] (DEFAULT)[address] [place] [address] 23221 BF Lymph % 5 Invalid Interpretation Code [facility] Comment on above: Order Comment: Right knee fluidVerbal order per Kelly Long Performed By: #### 2 [id number] ####[facility] (DEFAULT)[address] [place] [address] 40184 BF [place] % 0 Invalid Interpretation Code [facility] Comment on above: Order Comment: Right knee fluidVerbal order per Kelly Long Performed By: #### 2 [id number] ####[facility] (DEFAULT)[address] [place] [address] 70259 BF Segs % 93 Invalid Interpretation Code [facility] Comment on above: Order Comment: Right knee fluidVerbal order per Kelly Long Performed By: #### 2 [id number] ####[facility] (DEFAULT)[address] [place] [address] CBC w/ Auto Diffon 3 Erythrocyte distribution width (RBC) [Ratio] 15.3 % High 11.5-15.0 [facility] Comment on above: Performed By: #### 2 577906, 3671864893, 07808046, 2531157527, 0046557105, 9223588305, 9817255491, 6955058 ####[facility] (DEFAULT)[address] [place] [address] Hematocrit (Bld) [Volume fraction] 36.1 % Normal 33.7-40.4 [facility] Comment on above: Performed By: #### 2 297189, 4141135995, 49256975, 5461910521, 7628694831, 9871365923, 0694025806, 1104424 ####[facility] (DEFAULT)[address] [place] [address] Hemoglobin (Bld) [Mass/Vol] 11.8 g/dL Normal 11.3-15.9 [facility] Comment on above: Performed By: #### 2 735425, 3846038105, 99304934, 7061192213, 8780278992, 7265839768, 4469626213, 3798203 ####[facility] (DEFAULT)[address] [place] [address] 01885 Man Diff? Auto Invalid Interpretation Code [facility] Comment on above: Performed By: #### 2 846201, 9828092540, 00300363, 5418826131, 6902283457, 2572213290, 0492941325, 5450611 ####[facility] (DEFAULT)[address] [place] [address] 41821 MCH (RBC) [Entitic mass] 29 pg Normal 24-34 [facility] Comment on above: Performed By: #### 2 638822, 9705261480, 64441808, 7914179216, 7626597138, 9553798464, 6320296223, 0994610 ####[facility] (DEFAULT)[address] [place] [address] MCHC (RBC) [Mass/Vol] 33 g/dL Normal 26-37 [facility] Comment on above: Performed By: #### 2 165568, 1341142401, 02739651, 3975632796, 3167586105, 5285722905, 2490618516, 2104718 ####[facility] (DEFAULT)[address] [place] [address] 63596 MCV (RBC) [Entitic vol] 89 fL Normal 81-100 [facility] Comment on above: Performed By: #### 2 466795, 4658833290, 43801016, 4982079993, 5843981936, 1878564358, 6235883537, 7289492 ####[facility] (DEFAULT)[address] [place] [address] 66233 Platelet 492 x10 High 138-427 [facility] Comment on above: Performed By: #### 2 [id number], [id number], [id number], [id number], [id number], [id number], [id number], [id number] ####[facility] (DEFAULT)[address] [place] [address] 23248 Platelet mean volume (Bld) [Entitic vol] 6.2 fL Low 6.3-10.2 [facility] Comment on above: Performed By: #### 2 [id number], [id number], [id number], [id number], [id number], [id number], [id number], [id number] ####[facility] (DEFAULT)[address] [place] [address] RBC 4.05 x10 Normal 3.70-5.30 [facility] Comment on above: Performed By: #### 2 [id number], [id number], [id number], [id number], [id number], [id number], [id number], [id number] ####[facility] (DEFAULT)5 [place] [address] WBC 16.0 x10 High 3.5-10.5 [facility] Comment on above: Result Comment: Slid e Reviewed Performed By: #### 2 [id number], [id number], [id number], [id number], [id number], [id number] ####[facility] (DEFAULT)[address] [place] [address] CRPon 10-11-2023 CRP 6.1 mg/dL High <=0.5 [facility] Comment on above: Performed By: #### 2 [id number] ####[facility] (DEFAULT)[address] [place] [id number] Lower Extremity w/ Contra st Righton [...] MD 10/11/23 4:31 pm Technologist: Jeanette LUKE [facility] Extra SSTon 10-11-2023 Tube Collected Yes Invalid Interpretation Code [facility] Comment on above: Performed By: #### 2 [id number], [id number], [id number], [id number], [id number], [id number] ####[facility] (DEFAULT)[address] [place] [address] MAGR Intraoperative Recordon 10-11-2023 MAGR Intraoperative Record MAGR Intra-Op Record Summary Primary Physician: JOB AGUILAR DO Finalized Date/Time: 10/11/23 14:40:54 Pt. Name: GIACOMOBrisaROMEO PIERCE/Sex: 1940 FEMALE Med Rec #: [id number] Physician: JOB AGUILAR DO Financial #: [id number] Pt. 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 CSFA, Rina Muñoz CSFA Last Modified By: [...] (O.80) Ye (more content not included)... [facility] PACU Record MAGR PACU Record [facility] romeo Primary Physician: JOB AGUILAR DO Finalized Date/Time: 10/11/23 13:56:49 Pt. Name: ROMEO BULLOCK ALICE /Sex: 1940 FEMALE Med Rec #: [id number] Physician: JOB AGUILAR DO Financial #: [id number] Pt. Type: D Room/Bed: 224/1 Admit/Disch: 10/11/23 06:57:39 - Institution: PACU Case Times MAGR Entry 1 In PACU I 10/11/23 12:55:00 Discharge from PACU 10/11/23 13:40:00 I Last Modified By: Radha Seo RN 10/11/23 13:56:45 Finalized By: Radha Seo RN Document Signatures Signed By: Radha Seo RN 10/11/23 13:56 [facility] 12-12-2022 MAGR Preoperative Record MAGR Pre-Op Record Summary Primary Physician: JOB AGUILAR DO Finalized Date/Time: 10/11/23 12:17:03 Pt. Name: ROMEO BULLOCK ESTER Mariscal/Sex: 1940 FEMALE Med Rec #: [id number] Physician: JOB AGUILAR DO Financial #: [id number] Pt. Type: D Room/Bed: / Admit/Disch: 10/11/23 [...] Signed By: Sandra Shepard RN 10/11/23 12:17 [facility] Noteon 10-11-2023 Pharmacy Note The following [...] Signed on: 10/13/2023 09:39 EST] Jamal Butler [facility] Sed Rateon 10-11-2023 Sed Rate 80 mm/hr High 0-20 [facility] Comment on above: Performed By: #### 2 [id number], [id number], [id number], [id number], [id number], [id number], [id number] ####[facility] (DEFAULT)[address] [place] [address] CREATININEon 04-04-2023 Creatinine [Mass/Vol] 1.25 mg/dL Critically high 0.55-1.02 [facility] Comment on above: Performed By: #### C HEIDI #### [facility] [address] [address] [address] Lolita Alvarado EGFR-AF LEBANESE 49 mL/min/1.73m2 Critically low >=60 [facility] Comment on above: Performed By: #### C HEIDI #### [facility] [address] [address] [address] Lolita Alvarado EGFR-NON AF LEBANESE 41 mL/min/1.73m2 Critically low >=60 [facility] Comment on above: Performed By: #### C HEIDI #### [facility] [address] CHEST W CONon [...] RIGO WHITTAKER Date: 2023-04-04 16:18 Normal [facility] CT CHEST W CONon 12-26-2022 CT CHEST [...] RIGO WHITTAKER Date: 2022-12-26 09:16 Normal [facility] CREATININEon 12-23-2022 Creatinine [Mass/Vol] 0.85 mg/dL Normal 0.55-1.02 [facility] Comment on above: Performed By: #### C HEIDI #### [facility] [address] [address] [address] Lolita Alvarado EGFR-AF LEBANESE >60 Normal >=60 [facility] Comment on above: Performed By: #### C HEIDI #### [facility] [address] [place], [place] [address] Dr. Lolita Alvarado EGFR-NON AF LEBANESE >60 Normal >=60 [facility] Comment on above: Performed By: #### C HEIDI #### [facility] [address] [address] [address] Lolita Alvarado Glucose Glucometer (BldC) [M ass/Vol]Ordered By: Santiago Patricio on 11-01-2022 Glucose [Mass/Vol] 97 mg/dL [facility] Comment on above: Random Glucose Refer ence Range is dependent on time and content of last meal. Glucose of more than 200 mg/dL in a nonstressed, ambulatory subject supports the diagnosis of Diabetes Mellitus. Glucose Poct Glucometerson 1 01-02-2022 Glucose [Mass/Vol] 97 mg/dL Normal [facility] Comment on above: Result Comment: Gravelly om Glucose Reference Range is dependent on time and content of last meal. Glucose of more than 200 mg/dL in a nonstressed, ambulatory subject supports the diagnosis of Diabetes Mellitus. PERFORMED BY: [place] [address] PATHOLOGIST GRATED CHEESE MAKER NEW MEDEIROS M.D. Performed By: #### G PROSPER #### Point of Care testing , PET tumor init tx strat sb-m ton 11-01-2022 PET tumor init tx strat sb-mt [facility] Main [place] [address] [place] [address] Nuclear Medicine Report Signed Patient: Romeo Bullock MR#: [id number] : 1940 Acct:[id number] Age/Sex: 82 / F ADM Date: 11/01/22 Loc: Room: Type: [facility] Attending Dr: Santiago Patricio MD Copies to: MD Candi Mendosa MD Ordering Provider: Santiago Patricio MD Date of Service: 11/01/22 PET/PET tumor [...] Candi Leigh M.D.11/01/2022 1:32 PM Dictation Location: [place] [address] Transcribed By: [facility] 11/01/22 1332 Dictated By: Candi Leigh MD 11/01/22 1300 Signed By: 11/01/22 13[address] [facility] [address] CHEST W CONon 10-24-2022 CT [...] by: RIGO WHITTAKER Date: 2022-10-23 22:21 Normal [facility] CREATININEon 10-23-2022 Creatinine [Mass/Vol] 1.08 mg/dL Critically high 0.55-1.02 [facility] Comment on above: Performed By: #### C HEIDI #### [facility] [address] [address] [address] Lolita Alvarado EGFR-AF LEBANESE 59 mL/min/1.73m2 Critically low >=60 [facility] Comment on above: Performed By: #### C HEIDI #### [facility] [address] [address] [address] Lolita Alvarado EGFR-NON AF LEBANESE 48 mL/min/1.73m2 Critically low >=60 [facility] Comment on above: Performed By: #### C HEIDI #### [facility] [address] [address] TSPINE WO CONon [...] No acute abnormality. Normal [facility] MRI LSHEXT WO CONon 09-13-20 MRI [facility] WO CON EXAMINATION: MRI LSP INE WO [...] SHERYL SRINIVASAN Date: 2022-09-13 08:21 Normal [facility] US NOLBERTO DOP LEG RTon [...] by: BRAD GONZALEZ Date: 2022-08-10 15:05 Normal [facility] CBC AUTO DIFFon 08-02-2022 BASO # 0.0 103/ul Normal 0.0-0.1 [facility] Comment on above: Performed By: #### C BC #### [facility] [address] [address] [address] Lolita Alvarado Basophils/100 WBC (Bld) 0.3 % Normal 0.2-2.0 [facility] Comment on above: Performed By: #### C BC #### [facility] [address] [address] [address] Lolita Alvarado EO # 0.0 103/ul Normal 0.0-0.7 [facility] Comment on above: Performed By: #### C BC #### [facility] [address] [address] [address] Lolita Alvarado Eosinophils/100 WBC (Bld) 0.3 % Critically low 0.9-7.0 [facility] Comment on above: Performed By: #### C BC #### [facility] [address] [place] [address] Dr. Lolita Alvarado Erythrocyte distribution width (RBC) [Ratio] 13.3 % Normal 11.0-15.0 [facility] Comment on above: Performed By: #### C BC #### [facility] [address] [place] [address] Dr. Lolita Alvarado Hematocrit (Bld) [Volume fraction] 34.6 % Critically low 36.0-48.0 [facility] Comment on above: Performed By: #### C BC #### [facility] [address] [place] [address] Dr. Lolita Alvarado Hemoglobin (Bld) [Mass/Vol] 11.4 g/dL Critically low 12.0-16.0 [facility] Comment on above: Performed By: #### C BC #### [facility] [address] [place] [address] Dr. Lolita Alvarado IG # 0.04 10e3/ul Critically high 0.00-0.03 [facility] Comment on above: Performed By: #### C BC #### [facility] [address] [place] [address] Dr. Lolita Alvarado IG % 1.0 % Critically high 0.0-0.5 [facility] Comment on above: Performed By: #### C BC #### [facility] [address] [place] [address] Dr. Lolita Alvarado LYMPH # 1.2 103/ul Normal 1.2-3.8 [facility] Comment on above: Performed By: #### C BC #### [facility] [address] [place] [address] Dr. Lolita Alvarado Lymphocytes/100 WBC (Bld) 30.9 % Normal 20.5-60.0 [facility] Comment on above: Performed By: #### C BC #### [facility] [address] [place] [address] Dr. Lolita Alvarado MANUAL DIFF REQ NO Normal [facility] Comment on above: Performed By: #### C BC #### [facility] [address] [place] [address] Dr. Lolita Alvarado MCH (RBC) [Entitic mass] 31.0 pg Normal 26.7-34.0 [facility] Comment on above: Performed By: #### C BC #### [facility] [address] [place] [address] Dr. Lolita Alvarado MCHC (RBC) [Mass/Vol] 32.9 g/dL Normal 29.9-35.2 [facility] Comment on above: Performed By: #### C BC #### [facility] [address] [place] [address] Dr. Lolita Alvarado MCV (RBC) [Entitic vol] 94.0 fL Normal 81.0-99.0 [facility] Comment on above: Performed By: #### C BC #### [facility] [address] [place] [address] Dr. Lolita Alvarado MONO # 0.4 103/ul Normal 0.3-0.8 [facility] Comment on above: Performed By: #### C BC #### [facility] [address] [place] [address] Dr. Lolita Alvarado Monocytes/100 WBC (Bld) 10.6 % Normal 1.7-12.0 [facility] Comment on above: Performed By: #### C BC #### [facility] [address] [place] [address] Dr. Lolita Alvarado NEUT # 2.2 103/ul Normal 1.4-6.5 [facility] Comment on above: Performed By: #### C BC #### [facility] [address] [address] [address] Lolita Alvarado Neutrophils/100 WBC (Bld) 56.9 % Normal 43.0-75.0 [facility] Comment on above: Performed By: #### C BC #### [facility] [address] [address] [address] Lolita Alvarado Platelet mean volume (Bld) [Entitic vol] 8.1 fL Critically low 9.5-13.5 [facility] Comment on above: Performed By: #### C BC #### [facility] [address] [address] [address] Lolita Alvarado PLT 226 103/ul Normal 150-450 [facility] Comment on above: Performed By: #### C BC #### [facility] [address] [address] [address] Lolita Alvarado RBC 3.68 106/ul Critically low 4.20-5.40 [facility] Comment on above: Performed By: #### C BC #### [facility] [address] [address] [address] Lolita Alvarado WBC 3.9 103/ul Critically low 4.0-11.0 [facility] Comment on above: Performed By: #### C BC #### [facility] [address] [address] [address] Lolita Alvarado [facility]on 06-07 SARS-CoV-2 (COVID-19) RNA EDWIN+probe Ql (Unsp spec) Detected Critically abnormal NOT DETECTED [facility] Comment on above: Result Comment: This test is not yet approved or cleared by the [place] FDA. When there are no FDA-approved or cleared tests available, and other criteria are met, FDA can make tests available under an emergency access mechanism called an Emergency Use Authorization (EUA). The EUA for this test is supported by the [employer] of Health and Human Service's (HHS's) declaration [...] By: #### C BC #### [facility] [address] [place] [address] Dr. Lolita Alvarado CBC AUTO DIFFon 06-02-2022 BASO # 0.0 103/ul Normal 0.0-0.1 [facility] Comment on above: Performed By: #### C BC #### [facility] [address] [place] [address] Dr. Lolita Alvarado Basophils/100 WBC (Bld) 0.4 % Normal 0.2-2.0 [facility] Comment on above: Performed By: #### C BC #### [facility] [address] [place] [address] Dr. Lolita Alvarado EO # 0.0 103/ul Normal 0.0-0.7 [facility] Comment on above: Performed By: #### C BC #### [facility] [address] [place] [address] Dr. Lolita Alvarado Eosinophils/100 WBC (Bld) 0.2 % Critically low 0.9-7.0 [facility] Comment on above: Performed By: #### C BC #### [facility] [address] [place] [address] Dr. Lolita Alvarado Erythrocyte distribution width (RBC) [Ratio] 12.8 % Normal 11.0-15.0 [facility] Comment on above: Performed By: #### C BC #### [facility] [address] [place] [address] Dr. Lolita Alvarado Hematocrit (Bld) [Volume fraction] 30.1 % Critically low 36.0-48.0 [facility] Comment on above: Performed By: #### C BC #### [facility] [address] [place] [address] Dr. Lolita Alvarado Hemoglobin (Bld) [Mass/Vol] 10.3 g/dL Critically low 12.0-16.0 [facility] Comment on above: Performed By: #### C BC #### [facility] [address] [address] [address] Lolita Alvarado IG # 0.02 10e3/ul Normal 0.00-0.03 [facility] Comment on above: Performed By: #### C BC #### [facility] [address] [place] [address] Dr. Lolita Alvarado IG % 0.4 % Normal 0.0-0.5 [facility] Comment on above: Performed By: #### C BC #### [facility] [address] [place] [address] Dr. Lolita Alvarado LYMPH # 0.7 103/ul Critically low 1.2-3.8 [facility] Comment on above: Performed By: #### C BC #### [facility] [address] [place] [address] Dr. Lolita Alvarado Lymphocytes/100 WBC (Bld) 14.9 % Critically low 20.5-60.0 [facility] Comment on above: Performed By: #### C BC #### [facility] [address] [place] [address] Dr. Lolita Alvarado MANUAL DIFF REQ NO Normal [facility] Comment on above: Performed By: #### C BC #### [facility] [address] [place] [address] Dr. Lolita Alvarado MCH (RBC) [Entitic mass] 33.6 pg Normal 26.7-34.0 [facility] Comment on above: Performed By: #### C BC #### [facility] [address] [place] [address] Dr. Lolita Alvarado MCHC (RBC) [Mass/Vol] 34.2 g/dL Normal 29.9-35.2 [facility] Comment on above: Performed By: #### C BC #### [facility] [address] [place] [address] Dr. Lolita Alvarado MCV (RBC) [Entitic vol] 98.0 fL Normal 81.0-99.0 [facility] Comment on above: Performed By: #### C BC #### [facility] [address] [address] [address] Lolita Alvarado MONO # 0.4 103/ul Normal 0.3-0.8 [facility] Comment on above: Performed By: #### C BC #### [facility] [address] [address] [address] Lolita Alvarado Monocytes/100 WBC (Bld) 9.0 % Normal 1.7-12.0 [facility] Comment on above: Performed By: #### C BC #### [facility] [address] [address] [address] Lloita Alvarado NEUT # 3.4 103/ul Normal 1.4-6.5 [facility] Comment on above: Performed By: #### C BC #### [facility] [address] [place] [address] Dr. Lolita Alvarado Neutrophils/100 WBC (Bld) 75.1 % Critically high 43.0-75.0 [facility] Comment on above: Performed By: #### C BC #### [facility] [address] [place] [address] Dr. Lolita Alvarado Platelet mean volume (Bld) [Entitic vol] 8.5 fL Critically low 9.5-13.5 [facility] Comment on above: Performed By: #### C BC #### [facility] [address] [place] [address] Dr. Lolita Alvarado PLT 229 103/ul Normal 150-450 [facility] Comment on above: Performed By: #### C BC #### [facility] [address] [place] [address] Dr. Lolita Alvarado RBC 3.07 106/ul Critically low 4.20-5.40 [facility] Comment on above: Performed By: #### C BC #### [facility] [address] [place] [address] Dr. Lolita Alvarado WBC 4.6 103/ul Normal 4.0-11.0 [facility] Comment on above: Performed By: #### C BC #### [facility] [address] [place], [place] [address] Dr. Lolita Alvarado CBC AUTO DIFFon 06-01-2022 BASO # 0.0 103/ul Normal 0.0-0.1 [facility] Comment on above: Performed By: #### C BC #### [facility] [address] [place] [address] Dr. Lolita Alvarado Basophils/100 WBC (Bld) 0.7 % Normal 0.2-2.0 [facility] Comment on above: Performed By: #### C BC #### [facility] [address] [place] [address] Dr. Lolita Alvarado EO # 0.2 103/ul Normal 0.0-0.7 [facility] Comment on above: Performed By: #### C BC #### [facility] [address] [place] [address] Dr. Lolita Alvarado Eosinophils/100 WBC (Bld) 3.7 % Normal 0.9-7.0 [facility] Comment on above: Performed By: #### C BC #### [facility] [address] [place] [address] Dr. Lolita Alvarado Erythrocyte distribution width (RBC) [Ratio] 13.0 % Normal 11.0-15.0 [facility] Comment on above: Performed By: #### C BC #### [facility] [address] [place] [address] Dr. Lolita Alvarado Hematocrit (Bld) [Volume fraction] 32.2 % Critically low 36.0-48.0 [facility] Comment on above: Performed By: #### C BC #### [facility] [address] [place] [address] Dr. Lolita Alvarado Hemoglobin (Bld) [Mass/Vol] 10.6 g/dL Critically low 12.0-16.0 [facility] Comment on above: Performed By: #### C BC #### [facility] [address] [place] [address] Dr. Lolita Alvarado IG # 0.02 10e3/ul Normal 0.00-0.03 [facility] Comment on above: Performed By: #### C BC #### [facility] [address] [place] [address] Dr. Lolita Alvarado IG % 0.5 % Normal 0.0-0.5 [facility] Comment on above: Performed By: #### C BC #### [facility] [address] [place] [address] Dr. Lolita Alvarado LYMPH # 1.4 103/ul Normal 1.2-3.8 [facility] Comment on above: Performed By: #### C BC #### [facility] [address] [place] [address] Dr. Lolita Alvarado Lymphocytes/100 WBC (Bld) 32.4 % Normal 20.5-60.0 [facility] Comment on above: Performed By: #### C BC #### [facility] [address] [place] [address] Dr. Lolita Alvarado MANUAL DIFF REQ NO Normal [facility] Comment on above: Performed By: #### C BC #### [facility] [address] [place] [address] Dr. Lolita Alvarado MCH (RBC) [Entitic mass] 32.1 pg Normal 26.7-34.0 [facility] Comment on above: Performed By: #### C BC #### [facility] [address] [place] [address] Dr. Lolita Alvarado MCHC (RBC) [Mass/Vol] 32.9 g/dL Normal 29.9-35.2 [facility] Comment on above: Performed By: #### C BC #### [facility] [address] [place] [address] Dr. Lolita Alvarado MCV (RBC) [Entitic vol] 97.6 fL Normal 81.0-99.0 [facility] Comment on above: Performed By: #### C BC #### [facility] [address] [place] [address] Dr. Lolita Alvarado MONO # 0.6 103/ul Normal 0.3-0.8 [facility] Comment on above: Performed By: #### C BC #### [facility] [address] [place] [address] Dr. Lolita Alvarado Monocytes/100 WBC (Bld) 14.0 % Critically high 1.7-12.0 [facility] Comment on above: Performed By: #### C BC #### [facility] [address] [place] [address] Dr. Lolita Alvarado NEUT # 2.1 103/ul Normal 1.4-6.5 [facility] Comment on above: Performed By: #### C BC #### [facility] [address] [place] [address] Dr. Lolita Alvarado Neutrophils/100 WBC (Bld) 48.7 % Normal 43.0-75.0 [facility] Comment on above: Performed By: #### C BC #### [facility] [address] [place] [address] Dr. Lolita Alvarado Platelet mean volume (Bld) [Entitic vol] 8.2 fL Critically low 9.5-13.5 [facility] Comment on above: Performed By: #### C BC #### [facility] [address] [place] [address] Dr. Lolita Alvarado PLT 216 103/ul Normal 150-450 [facility] Comment on above: Performed By: #### C BC #### [facility] [address] [place] [address] Dr. Lolita Alvarado RBC 3.30 106/ul Critically low 4.20-5.40 [facility] Comment on above: Performed By: #### C BC #### [facility] [address] [place] [address] Dr. Lolita Alvardao WBC 4.3 103/ul Normal 4.0-11.0 [facility] Comment on above: Performed By: #### C BC #### [facility] [address] [place] [address] Dr. Lolita Alvarado OCC BLD IMMUNOASSAYon 2021 OCCULT BLOOD Positive Abnormal NEGATIVE [facility] Comment on above: Performed By: #### O ELADIO #### [facility] [address] [place] [address] Dr. Lolita Alvarado PROTIMEon 06-01-2022 INR Coag (PPP) [Relative time] 1.62 {INR} Normal [facility] Comment on above: Performed By: #### P T, PTT #### [facility] [address] [place] [address] Dr. Lolita Alvarado INR GUIDELINES SEE BELOW Normal [facility] Comment on above: Result Comment: TOSHA RED INR: 2.0 - 3.0 CONDITIONS NOT LISTED BELOW 2.5 - 3.5 FOR PROSTHETIC HEART VALVE REPLACEMENT 2.5 - 3.5 RECURRENT THROMBOSIS Performed By: #### P T, PTT #### [facility] [address] [place] [address] Dr. Lolita Alvarado PT Coag (PPP) [Time] 17.0 s Critically high 9.0-11.6 [facility] Comment on above: Performed By: #### P T, PTT #### [facility] [address] [place] [address] Dr. Lolita Alvarado PTTon 06-01-2022 aPTT Coag (Bld) [Time] 40.2 s Critically high 22.3-36.2 [facility] Comment on above: Performed By: #### P T, PTT #### [facility] [address] [place] [address] Dr. Lolita Alvarado Covid-19 PCR ([facility])on 05-06 SARS-CoV-2 (COVID-19) RNA EDWIN+probe Ql (Unsp spec) Not detected Normal NOT DETECTED [facility] Comment on above: Result Comment: This test is not yet approved or cleared by the [place] FDA. When there are no FDA-approved or cleared tests available, and other criteria are met, FDA can make tests available under an emergency access mechanism called an Emergency Use Authorization (EUA). The EUA for this test is supported by the [employer] of Health and Human Service's (HHS's) declaration [...] SARS-CoV-2. Performed By: #### C VDTB #### [facility] [address] [address] [address] Lolita Alvarado US NOLBERTO DOP LEG [...] by: SHERYL SRINIVASAN Date: 2022-05-25 16:09 Normal [facility] US NOLBERTO DOP LEG LTon 04-28-20 [...] and mid calf. There may be a animal care worker extending to the region of the thrombosis. The remaining deep venous structures are patent. 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 This finding was placed in the stat call folder. 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 Electronically authenticated by: CHUCK TATUM Date: 2022-04-28 19:31 Normal [facility] POINT OF CARE GLUCOSEon 04-06 Glucose [Mass/Vol] 86 mg/dL Normal 74-106 [facility] Comment on above: Performed By: #### C BC #### [facility] [address] [address] [address] 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 Fer mazariegos 04-14-2024 12:28-0400 Blood Pressure Location Mohamad Mouchli [facility] 04-14-2024 12:28-0400 Diastolic blood pressure 77 mm[Hg] Mohamad Mouchli [facility] 04-14-2024 12:28-0400 Heart rate 68 /min Mohamad Mouchli [facility] 04-14-2024 12:28-0400 Respiratory rate 16 /min Mohamad Mouchli [facility] 04-14-2024 12:28-0400 Systolic blood pressure 140 mm[Hg] Mohamad Mouchli [facility] 01-23-2024 14:05-0400 Diastolic blood pressure 73 mm[Hg] Mohamad Mouchli [facility] 01-23-2024 14:05-0400 Mean blood pressure 93 mm[Hg] Mohamad Mouchli [facility] 01-23-2024 14:05-0400 Systolic blood pressure 134 mm[Hg] Mohamad Mouchli [facility] 01-23-2024 14:02-0400 Blood Pressure Location Mohamad Mouchli [facility] 01-23-2024 14:02-0400 Diastolic blood pressure 82 mm[Hg] Mohamad Mouchli [facility] 01-23-2024 14:02-0400 Heart rate 84 /min Mohamad Mouchli [facility] 01-23-2024 14:02-0400 Respiratory rate 16 /min Lynn Pastrana [facility] 01-23-2024 14:02-0400 Systolic blood pressure 147 mm[Hg] Lynn Pastrana [facility] Encounters Encounter Date Encounter Type Care Provider Facility Start: 08-19-2024 End: 08-19-2024 Bamboo flowsheet Calixto Barba BEEF CATTLE GRAZIER Work Phone: [facility] Start: 08-19-2024 End: 08-19-2024 Bamboo flowsheet Calixto Barba BEEF CATTLE GRAZIER Work Phone: [facility] Start: 08-19-2024 End: 08-19-2024 Postop follow up visit related to original px Calixto Barba BEEF CATTLE GRAZIER Work Phone: [facility] Comment on above: Nondisplaced fractur e of shaft of fifth metacarpal bone, right hand, subsequent encounter for fracture with routine healing Start: 08-19-2024 End: 08-19-2024 ambulatory CALIXTO BARBA Not Available Start: 08-14-2024 End: 08-14-2024 Bamboo Vistaarheet Isai Horne MD Work Phone: [facility] Start: 08-14-2024 End: 08-14-2024 Bamboo Vistaarheet Isai Horne MD Work Phone: [facility] Start: 08-14-2024 End: 08-14-2024 Office outpatient visit 15 minutes Isai Horne MD Work Phone: [facility] Comment on above: Other atopic dermati tis (Primary Dx); History of SCC (squamous cell carcinoma) of skin; Actinic keratosis; Seborrheic keratosis, inflamed; Seborrheic keratosis Start: 08-14-2024 End: 08-14-2024 ambulatory ISAI HORNE Not Available Start: 08-13-2024 End: 08-13-2024 BamboGOQiiheet Jr. Job C Stepanic DO Work Phone: [facility] Start: 08-13-2024 End: 08-13-2024 Bamboo flowsheet Jr. Job Jeffery Stepanic DO Work Phone: [facility] Start: 08-13-2024 End: 08-13-2024 Office outpatient visit 25 minutes Jr. Job Jeffery Stepanic DO Work Phone: [facility] Comment on above: History of left knee replacement (Primary Dx); Acute pain of left knee Start: 08-13-2024 End: 08-13-2024 ambulatory .JOB EMIR Not Available Start: 07-22-2024 End: 07-22-2024 ambulatory CALIXTO BARBA Not Available Start: 07-14-2024 ambulatory Lynn Monroe lity:[facility] Start: 07-03-2024 End: 07-03-2024 ambulatory CALIXTO BARBA Not Available Start: 06-26-2024 End: 06-26-2024 ambulatory SILVINO CAREY Not Available Start: 04-14-2024 End: 04-14-2024 ambulatory Lynn Pastrana Facility:[facility] Start: 04-14-2024 End: 04-14-2024 Patient encounter procedure Lynn Pastrana [facility] Start: 04-10-2024 End: 04-10-2024 ambulatory SILVINO CAREY Not Available Start: 03-27-2024 End: 03-27-2024 ambulatory GREGORY ZAMORA Not Available Start: 02-28-2024 End: 02-28-2024 ambulatory ISAI HORNE Not Available Start: 01-31-2024 End: 01-31-2024 ambulatory SILVINO CAREY Not Available Start: 01-23-2024 End: 01-23-2024 ambulatory [facility] Start: 01-23-2024 End: 01-23-2024 Patient encounter procedure Lynn Pastrana [facility] Start: 01-17-2024 End: 01-17-2024 ambulatory JAMAL VIZCARRA Not Available Start: 01-11-2024 ambulatory Lynn Moangelicali Facilit y:KEVIN Lagunas Start: 01-10-2024 ambulatory [facility] Start: 12-14-2023 End: 12-14-2023 Postop follow up visit related to original px Jamal Vizcarra PA Work Phone: [facility] Comment on above: S/P right knee arthr oscopy (Primary Dx) Start: 12-14-2023 End: 12-14-2023 ambulatory JAMAL VIZCARRA Not Available Start: 11-16-2023 End: 11-16-2023 ambulatory JAMAL VIZCARRA Not Available Start: 10-26-2023 End: 10-26-2023 ambulatory JAMAL VIZCARRA Not Available Start: 10-11-2023 End: 10-16-2023 Evaluation and management of inpatient Brando Garcia Facility:[facility] Start: 10-10-2023 End: 10-10-2023 ambulatory JOB CASTRO Not Available Start: 10-05-2023 End: 10-05-2023 ambulatory JAMAL VIZCARRA Not Available Start: 06-14-2023 ambulatory HORTENCIA NOVAK . Facili ty:[facility] Start: 04-04-[address] SANTIAGO PATRICIO . Facili ty:[facility] Start: 03-16-2023 End: 03-17-2023 ambulatory HORTENCIA NOVAK . Facility:[facility] Start: 12-23-2022 End: 12-24-[address] SANTIAGO PATRICIO . Facility:[facility] Start: 11-02-2022 ambulatory STARR ARROYO . Facility:[facility] Start: 11-01-2022 End: 11-01-2022 ambulatory Santiago Patricio Facility:[facility] Start: 11-01-2022 End: 11-01-2022 ambulatory MD Santiago Patricio Work Phone: [facility] Work Phone: Start: 11-01-2022 End: 11-01-2022 Patient encounter procedure MD Santiago Patricio Work Phone: [facility] Work Phone: Start: 10-23-2022 End: 10-24-[address] SANTIAGO PATRICIO . Facility:[facility] Start: 10-16-2022 End: 10-17-2022 ambulatory RACHANA SALMON Facility:[facility] Start: 10-11-2022 End: 10-11-2022 ambulatory Rachana Salmon Other [facility] [employer] Other Start: 10-11-2022 Telephone encounter Rachana Salmon F [facility] Start: 09-12-2022 End: 09-13-[address] SANTIAGO PATRICIO . Facility:[facility] Start: 08-29-2022 End: 08-29-2022 Patient encounter procedure Arie ZUNIGA General Surgery [facility] Start: 08-22-2022 End: 08-23-2022 ambulatory BRAD CALDWELL Facility:[facility] Start: 08-16-2022 End: 08-16-[address] ARIE ZUNIGA . Facility:[facility] Start: 08-12-[address] ARIE ZUNIGA . Facil ity:[facility] Start: 08-10-2022 End: 08-11-[address] SANTIAGO PATRICIO . Facility:[facility] Start: 08-10-2022 Encounter for other preprocedural examination DR ARIE ZUNIGA . [facility] Start: 08-08-2022 End: 08-09-[address] ARIE ZUNIGA . Facility:[facility] Start: 08-08-2022 End: 08-09-2022 Encounter for other preprocedural examination DR ARIE ZUNIGA . Facility:[facility] Start: 08-02-2022 End: 08-03-[address] ARIE ZUNIGA . Facility:[facility] Start: 07-31-2022 End: 10-03-[address] IVANIA Moore Facility:[facility] Start: 07-27-[address] SANTIAGO PATRICIO . Facili ty:[facility] Start: 07-27-2022 End: 07-28-2022 ambulatory STARR ARROYO . Facility:[facility] Start: 07-04-2022 End: 07-04-[address] SANTIAGO PATRICIO . Facility:[facility] Start: 06-02-2022 End: 06-03-[address] SANTIAGO PATRICOI . Facility:[facility] Start: 06-01-2022 End: 06-02-2022 ambulatory STARR ARROYO . Facility:[facility] Start: 05-25-2022 End: 05-25-[address] SANTIAGO PATRICIO . Facility:[facility] Start: 05-25-2022 End: 05-26-[address] SANTIAGO PATRICIO . Facility:[facility] Start: 04-28-2022 End: 04-29-2022 ambulatory STARR ARROYO . Facility:[facility] Start: 04-25-2022 End: 04-25-[address] IVANIA GARCIA . Facility: Procedures Date Procedure Procedure Detail Performing Clinician Start: 08-19-2024 Radex hand minimum 3 views Calixto Barba NP Work Phone: Start: 08-14-2024 End: 08-14-2024 CRYOTHERAPY SKIN LESION Isai Horne MD Work Phone: Start: 08-13-2024 Radiologic examination knee 1/2 views Jr. Job Aguilar DO Work Phone: Start: 11-01-2022 Positron emission tomography with computed tomography MD Santiago Patricio Work Phone: Start: 08-16-2022 Colonoscopy Arie NILL Start: 08-16-2022 Esophagogastroduodenoscopy Arie NILL Start: 11-01-2016 Colonoscopy Arie NILL Start: 11-01-2016 Esophagogastroduodenoscopy Arie NILL Start: 02-28-2012 Colonoscopy Arie NILL Start: 07-28-2009 Colonoscopy Arie NILL Appendectomy Arie COATESL Arthroplasty of knee Arie NILL Arthroscopy of knee Arie NILL Cholecystectomy Arie NILL Cystopexy Arie NILL Extraction of cataract Louis jennie NILL Extraction of cataract Louis schneider NILL History of operative procedure on knee History of left knee replacement Jr. Job Aguilar DO Work Phone: Knee region structur e (body structure) Lynn Pastrana Plan of Treatment Date Care Activity Detail Author Start: 08-11-2026 End: 08-11-2026 Patient encounter procedure 08/11/2026 10:30 AM EDT Office Visit [facility] [address] [place] [phone] Jr. Job Aguilar, DO [address] [place] [address] [facility] Start: 08-13-2025 End: 08-13-2025 Patient encounter procedure 08/13/2025 10:45 AM EDT Office Visit [facility] [address] [place] [phone] Isai Horne MD [address] [place] [address] [facility] Start: 09-09-2024 End: 09-09-2024 Patient encounter procedure 09/09/2024 10:45 AM EST Office Visit [facility] [address] [place] [phone] Calixto Barba, BEEF CATTLE GRAZIER [address] [place] [address] [facility] Start: 09-04-2024 End: 09-04-2024 Patient encounter procedure 09/04/2024 8:30 AM EDT Procedure Visit [facility] [address] [place] [phone] Silvino Carey DPM [address] [facility] [address] [place] [address] [facility] Start: 08-19-2024 End: 08-19-2024 Patient encounter procedure [facility] Comment on above: Nondisplaced fractur e of shaft of fifth metacarpal bone, right hand, subsequent encounter for fracture with routine healing Start: 08-14-2024 End: 08-14-2024 Patient encounter procedure [facility] Comment on above: Arrived Start: 08-13-2024 End: 08-13-2024 Patient encounter procedure 08/13/2024 10:15 AM EDT Office Visit [facility] [address] [facility] [address] [place] [phone] Jr. Job Aguilar, DO [address] [place] [address] Arrived [facility] Comment on above: Arrived Start: 08-06-2024 End: 08-06-2024 Telemedicine consultation with patient 08/06/2024 9:30 AM EDT Telemedicine [facility] [address] [place] [phone] Jr. Job Aguilar, DO [address] [place] [address] [facility] Start: 07-06-2024 Influenza vaccination Influenza Vacc ine (#1) [facility] Start: 07-06-2023 Influenza vaccination Influenza Vacc ine (#1) [facility] Immunizations Immunization Date Immunization Notes Care Provider Randi huang 10-11-2022 SARS-CoV-2 (COVID-19 ) [id number] Lynn Pastrana [facility] Comment on above: Result Comment: 2023: [id number] 08-16-2021 SARS-CoV-2 (COVID-19 ) mRNA BNT-162o3 vax Mohamad Mouchli [facility] 12-22-2020 SARS-CoV-2 (COVID-19 ) mRNA BNT-162b0 vax Mohamad Mouchli [facility] 11-29-2020 SARS-CoV-2 (COVID-19 ) mRNA BNT-162k6 vax Mohamad Mouchli [facility] 08-17-2020 influenza virus vacc ine, unspecified formulation Jamal MARIE Work Phone: [facility] 08-06-2017 pneumococcal conjuga te vaccine, 13 valent Mohamad Mouchli [facility] 07-26-2017 influenza virus vacc ine, unspecified formulation Mohamad Mouchli [facility] 01-18-2016 pneumococcal polysaccharide vaccine, 23 valent Mohamad Mouchli [facility] 09-10-2015 zoster vaccine, live Mohamad Mouchli [facility] 08-05-2015 influenza virus vacc ine, unspecified formulation Mohamad Mouchli [facility] Payers Date Payer Category Payer Private Health Insurance AARP [place] [id number] 2022 Unknown AARP AARP [id number] 2022-Present [address] [place] [address] [id number] .[id number] 2022 Unknown [id number] 2003 Medicare [id number] 1959 Medicare [id number] 2.16.840.1.955163.19 1959 Self-pay 1959 Unknown [id number] 2.16.840.1.516490.19 1938 Unknown [id number] 2.16.840.1.690698.3.579.2 .593 1938 Unknown [id number] 2.16.840.1.996541.3.579.2 .593 1938 Unknown [id number] 2.16.840.1.986815.3.579.2 .593 1938 Unknown [id number] 2.16.840.1.368745.3.579.2 .593 1938 Unknown [id number] 2.16.840.1.403396.3.579.2 .593 1938 Unknown [id number] 2.16.840.1.364073.3.579.2 .593 1938 Unknown [id number] 2.16.840.1.820163.3.579.2 .593 1938 Unknown [id number] 2.16.840.1.225292.3.579.2 .593 1938 Unknown [id number] 2.16.840.1.932849.3.579.2 .593 1938 Unknown [id number] 2.16.840.1.746943.3.579.2 .59 1938 Unknown [id number] 2.16.840.1.942155.3.579.2 .593 1938 Unknown [id number] 2.16.840.1.817628.3.579.2 .59 1938 Unknown [id number] 2.16.840.1.005944.3.579.2 .59 1938 Unknown [id number] 2.16.840.1.746199.3.579.2 .59 1938 Unknown [id number] 2.16.840.1.563310.3.579.2 .59 1938 Unknown [id number] 2.16.840.1.134084.3.579.2 .59 1938 Unknown [id number] 2.16.840.1.996527.3.579.2 .59 1938 Unknown [id number] 2.16.840.1.443077.3.579.2 .593 1938 Unknown [id number] 2.16.840.1.733420.3.579.2 .59 1938 Unknown [id number] 2.16.840.1.490227.3.579.2 .59 1938 Unknown [id number] 2.16.840.1.278965.3.579.2 .593 1938 Unknown [id number] 2.16.840.1.037213.3.579.2 .593 1938 Unknown [id number] 2.16.840.1.159871.3.579.2 .593 1938 Unknown [id number] 2.16.840.1.481012.3.579.2 .593 1938 Unknown [id number] 2.16.840.1.747103.3.579.2 .593 1938 Unknown [id number] 2.16.840.1.798104.3.579.2 .593 1938 Unknown [id number] 2.16.840.1.859420.3.579.2 .593 1938 Unknown [id number] 2.16.840.1.830647.3.579.2 .593 1938 Unknown [id number] 2.16.840.1.147244.3.579.2 .718 1938 Unknown [id number] 2.16.840.1.902481.3.579.2 .727 1938 Unknown [id number] 2.16840.1.232779.3.579.2 .727 1938 Unknown [id number] 2.16840.1.810685.3.579.2 .727 1938 Unknown [id number] 2.16.840.1.152246.3.579.2 .1258 1938 Unknown [id number] 2.16.840.1.899023.3.579.2 .125 1938 Unknown [id number] 2.16840.1.152370.3.579.2 .125 1938 Unknown [id number] 2.16.840.1.790793.3.579.2 .125 1938 Unknown [id number] 2.16.840.1.640313.3.579.2 .1258 1938 Unknown [id number] 2.16.840.1.960786.3.579.2 .125 1938 Unknown [id number] 2.16.840.1.508001.3.579.2 .1258 1938 Unknown [id number] 2.16.840.1.804971.3.579.2 .1258 1938 Unknown [id number] 2.16.840.1.646604.3.579.2 .1258 1938 Unknown [id number] 2.16.840.1.223085.3.579.2 .1258 1938 Unknown [id number] 2.16.840.1.950866.3.579.2 .1258 1938 Unknown [id number] 2.16.840.1.654750.3.579.2 .1258 1938 Unknown [id number] 2.16840.1.920634.3.579.2 .1258 1938 Unknown [id number] 2.840.1.144086.3.579.2 .1258 1938 Unknown [id number] 2.840.1.725756.3.579.2 .1258 1938 Unknown [id number] 2.840.1.672964.3.579.2 .1258 1938 Unknown [id number] 2.840.1.504295.3.579.2 .1258 1938 Unknown [id number] 2.840.1.015285.3.579.2 .1258 1938 Unknown [id number] 2.16840.1.337515.3.579.2 .1258 1938 Unknown [id number] 2.840.1.112119.3.579.2 .1258 1938 Unknown [id number] 2.16840.1.253095.3.579.2 .1259 Medicare Medicare Outpatient [id number] Unknown [id number] 2.16840.1.333781.3.579.2 .531 Social History Date Type Detail Facility Start: 06-13-2022 End: 10-05-2023 Tobacco smoking status Never smoked tobacco (finding) [facility] Tobacco smoking status Never [facility] Start: 11-16-2023 End: 08-19-2024 [facility] 1940 Sex Assigned At Female F [facility] Start: 10-05-2023 Tobacco use and exposure Smokeless tobacco non-user [facility] Start: 11-16-2023 End: 08-19-2024 Alcohol intake Lifetime non-drinker (finding) [facility] Start: 11-16-2023 End: 08-19-2024 History of Social function [facility] Start: 1940 Sex Assigned At Not on file [facility] Functional Status Date Assessment Result Facility 04-14-2024 Functional Status N/A [facility] 01-23-2024 Functional Status N/A [facility] Clinical Notes 06-01-2022 to 08-19-2024 Calixto Barba NP - 08/19/2024 10:15 AM Gretchen Horne MD - 08/14/2024 10:45 AM JORDANAT. Job Aguilar DO - 08/13/2024 10:15 AM FRANK Singer - 12/14/2023 10:15 AM EST Note Date & Type Note Facility 08-19-2024 History of Present illness Narrative Images from the original note were not included. Chief Complaint Patient presents with Right Hand - Follow-up HISTORY OF PRESENT ILLNESS: Romeo Bullock is an 84 y.o. @ female. 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 HEARD A SNAP. XRAY TODAY EPIC 08/19/24 XRAY EPIC 07/22/24 XRAY EPIC 07/03/24 XRAY [facility] 07/02/24 (PUSHED THROUGH PACS) PRESENTS IN METACARPAL BLOCK SAC, HAS RUBBING AROUND THUMB. OCCAS PAIN IN HAND. NO PAIN MEDS. DENIES N/T, SWELLING. DOES NOT WAKE AT HS. RT HANDED. ALLERGIES: No Known Allergies HOME MEDICATIONS: Current Outpatient Medications Medication Instructions acetaminophen (Tylenol 8 Hour Arthritis Pain) 650 MG ER tablet Every 8 hours alendronate (Fosamax) 70 MG tablet ALPRAZolam (Xanax) 0.25 MG tablet Every 8 hours amLODIPine (Norvasc) 5 MG tablet aspirin 81 MG chewable tablet Every 24 hours cetirizine (ZyrTEC) 10 MG chewable tablet Oral, Daily cetirizine (ZyrTEC) 10 MG tablet TAKE 1 TABLET BY MOUTH EVERY DAY FOR 30 DAYS [facility] E Oil 45 MG/0.25ML oil USE 1 ML TOPICALLY ONCE DAILY FOR 30 DAYS diclofenac (Voltaren) 75 MG EC tablet Every 12 hours dicyclomine (BENTYL) 20 mg, Oral, 3 times daily DULoxetine (CYMBALTA) 30 mg, Oral, 2 times daily, Do not crush or chew. estradiol (Estrace) 0.5 MG tablet 1 tablet Orally Glucosamine-Chondroitin (OSTEO BI-FLEX REGULAR STRENGTH PO) Oral, Daily, 0 Refill(s) hyoscyamine (Levsin) 0.125 MG SL tablet DISSOLVE 1 TABLET UNDER TONGUE 4 TIMES A DAY NEEDED hyoscyamine (Levsin) 0.125 MG tablet Every 4 hours levothyroxine (Synthroid, Levoxyl) 50 MCG tablet liothyronine (CYTOMEL) 5 mcg losartan (Cozaar) 100 MG tablet Every 24 hours metoprolol tartrate (Lopressor) 50 MG tablet omeprazole (PriLOSEC) [address] capsule Every 24 hours Restoril 15 MG capsule Every 24 hours rifAXIMin (XIFAXAN) 550 mg, Oral tacrolimus (Protopic) 0.1 % ointment Apply to face and neck twice a day when itchy, hold when clear/ 90 day supply triamcinolone (Kenalog) 0.1 % cream Topical, 2 times daily REVIEW OF SYSTEMS: General: Denies fever, fatigue or weight loss Skin: Denies rash, sores or skin changes Eyes: Denies visual disturbance or pain GI: Denies indigestion or abdominal pain Neuro: Denies numbness or tingling, denies new onset paralysis Musculoskeletal: ( see note) PHYSICAL EXAM: Hand/Wrist Musculoskeletal Exam Inspection Right Erythema: none Ecchymosis: mild Edema: mild Deformity: mild Palpation Right Dorsal hand - 5th metacarpal tenderness to palpation: distal Palpation additional comments: DENIES PAIN TO PALPATION OF WRIST JOINT. CAST REMOVED, NO SKIN ABRASIONS. SOME RUBBING OVER INDEX AND MIDDLE MCP Range of Motion Range of motion additional comments: LIMITED ROM CONSISTENT WITH FRACTURE, NO EVIDENCE OF TENDON DISRUPTION . FINGERS TRACK WELL TO SCAPHOID Strength Strength additional comments: MOTORS WRIST AND DIGITS, DESPITE PAIN TO FX Neurovascular Right Right neurovascular exam is normal. Radial pulse: normal and 2+ Capillary refill: <3 sec Ulnar nerve sensory distribution: normal Median nerve sensory distribution: normal Superficial radial nerve sensory distribution: normal General Constitutional: appears stated age Labored breathing: no Neurological: alert and oriented x3 Skin: intact Lymphadenopathy: none Vitals: There is no height or weight on file to calculate BMI. IMAGING: XR hand 3+ views right Imaging Result: 08/19/2024: AP, LAT and Oblique xray of right hand demonstrate healing oblique fracture of right 5th MC shaft in acceptable position and alignment. There is increased callus but no definitive union is established. Impression: Healing 5th MC shaft fracture Calixto Barba PARK MAINTENANCE TECHNICIAN-COPING MACHINE ASSEMBLER ASSESSMENT: ICD-10-CM 1. Nondisplaced fracture of shaft of fifth metacarpal bone, right hand, subsequent encounter for fracture with routine healing S62.356D XR hand 3+ views right Procedures PLAN: I reviewed xray findings with the patient. I recommend repeat cast at this time as fracture is healing but no definitive union is established. Patient is requesting repeat metacarpal block cast as she has rubbing from ulnar gutter cast. A well molded metacarpal block cast was applied with 2 rolls of cast material used. She will follow up in 4 weeks for RCK. I reviewed with the patient cast care and signs and symptoms of complications and what to do if any occur. The patient is advised to seek medical attention or call if any problems or concerns. Questions answered in laymen terms at the bedside. The diagnosis, home exercise plan and any ongoing restrictions/ recommendations reviewed. If unable to be reached in office, I recommend evaluation at nearest Emergency Room if any symptoms worsened or new symptoms develop for requiring urgent evaluation. Calixto Barba PARK MAINTENANCE TECHNICIAN-COPING MACHINE ASSEMBLER documented in this encounter [facility] 08-14-2024 History of Present illness Narrative Skin Check Location: Patient requests skin exam of face and neck only Dermatologic history: history of Actinic Keratosis, history of Squamous Cell Carcinoma Last visit: 03/2024 (Mohs to left cheek SCC) Follow up Diagnosis: Atopic Dermatitis Location: face, neck Last visit: 03/2024 Symptoms: scaly today near left eyebrow Status: stable at this time Treatments tried and failed: TAC 0.1% cream Current treatment: Protopic 0.1% ointment bid- declines refills Established patient All pertinent medical history, medications, and allergies were reviewed. General Exam: alert, oriented to person, place, and time, normal affect, well appearing Accompanied by spouse A complete skin exam was offered, pt declined. Areas not examined despite medical recommendation: From the waist down and Under shirt Scalp, Examined , exam limited by hair Head, Face Examined Neck Examined Chest Not examined Back Not examined Abdomen Not examined Right arm Not examined Left arm Not examined Hands Not examined Digits,nails: Not examined Lymphatics: 1. Other atopic dermatitis Left Forehead Clear today with treatment. Discussed that atopic dermatitis is a chronic condition that can be controlled but not cured. Continue Protopic 0.1% ointment bid prn when flared, hold if smooth/asymptomatic. Encouraged daily moisturizing and gentle cleansers to prevent flares. Notify office if flaring despite treatment. Related Medications tacrolimus (Protopic) 0.1 % ointment Apply to face and neck twice a day when itchy, hold when clear/ 90 day supply 2. History of SCC (squamous cell carcinoma) of skin Left Cheek No evidence of recurrence at SCC scar. The patient was counseled that scars from excisional sites of nonmelanoma skin cancers should be monitored closely for recurrence. The patient was instructed to contact the office for any new, changing, or symptomatic moles. The patient was also instructed to contact the office for any new lesions that develop within or around the previous surgery scar. 3. Actinic keratosis (2) Left Buccal Cheek, Left Forehead Erythematous scaly papules Patient was counseled regarding these sun-induced growths that can develop into squamous cell carcinoma if left untreated. Discussed treatment with cryotherapy. It was emphasized that any treated lesions that fail to resolve should be re-evaluated. Cryotherapy performed today; see procedure note Diagnosis: Actinic keratosis Indication: Precancerous Location: see skin exam Consent: Verbal consent was obtained and risks were discussed, including, but not limited to risks of scarring, darker or recreation engineer pigmentary changes, recurrence, incomplete removal and infection. Method: Liquid nitrogen was used to treat the lesion(s) with two 5-10 second freeze-thaw cycles. Number of lesions treated: 2 Post-procedure instructions: Instructions were given orally and in writing. The office will be contacted if the lesion fails to resolve despite treatment, or if a side effect develops such as abnormal crusting, scabbing, redness or tenderness Cryotherapy, skin lesion - Left Buccal Cheek, Left Forehead 4. Seborrheic keratosis, inflamed Left Anterior Neck Jessie and brown stuck on verrucous scaly papule with surrounding erythema The patient was informed that symptomatic seborrheic keratoses are benign growths that become inflamed, itchy, tender, traumatized, caught on clothing, or bleed. Symptomatic lesions can be treated with cryotherapy or curretage. Thicker lesions treated with cryotherapy may require more than one treatment. The patient was instructed to notify the office if abnormal redness or tenderness develops at the treatment site. Cryotherapy today, see procedure note. Diagnosis: Inflamed seborrheic keratosis Indication: Inflamed Consent: Verbal consent was obtained and risks were discussed, including, but not limited to risks of scarring, darker or recreation engineer pigmentary changes, recurrence, incomplete removal and infection. Method: Liquid nitrogen was used to treat the lesion(s) with two 5-10 second freeze-thaw cycles Number of lesions treated: 1 Post-procedure instructions: Instructions were given orally and in writing. The office will be contacted if the lesion fails to resolve despite treatment, or if a side effect develops such as abnormal crusting, scabbing, redness or tenderness Cryotherapy, skin lesion - Left Anterior Neck 5. Seborrheic keratosis Head - Anterior (Face) Stuck on verrucous, miranda-brown papules and plaques. Patient was counseled regarding these benign growths. Removal is normally not necessary, but they may be removed if they are symptomatic or for cosmetic reasons. Next Visit: 1 year documented in this encounter [facility] 08-13-2024 History of Present illness Narrative Images from the original note were not included. HISTORY OF PRESENT ILLNESS: EST PT Romeo Bullock is an 84 y.o. @ female. (EST PT) HERE FOR BIENNIAL CHECK OF (L) TKA 10/24/11 (~13YRS) XRAYS DONE TODAY, 08/13/24 IN [facility] NO BONE SCAN FINISHED PHYSICAL THERAPY ; POST-OP PAIN MGMT - TB[facility] ; L-SPINE DOING WELL ; NOTES INTERMITTENT ACHINESS. NOTES GOOD ROM ; DENIES ANY INSTABILITY / WEAKNESS. NO SWELLING. TAKING DICLOFENAC PRN. CURRENTLY BEING TX PER [place] FOR (R) HAND, 5TH MC FX ALLERGIES: No Known Allergies HOME MEDICATIONS: Current Outpatient Medications Medication Instructions acetaminophen (Tylenol 8 Hour Arthritis Pain) 650 MG ER tablet Every 8 hours alendronate (Fosamax) 70 MG tablet ALPRAZolam (Xanax) 0.25 MG tablet Every 8 hours amLODIPine (Norvasc) 5 MG tablet aspirin 81 MG chewable tablet Every 24 hours cetirizine (ZyrTEC) 10 MG chewable tablet Oral, Daily cetirizine (ZyrTEC) 10 MG tablet TAKE 1 TABLET BY MOUTH EVERY DAY FOR 30 DAYS [facility] E Oil 45 MG/0.25ML oil USE 1 ML TOPICALLY ONCE DAILY FOR 30 DAYS diclofenac (Voltaren) 75 MG EC tablet Every 12 hours dicyclomine (BENTYL) 20 mg, Oral, 3 times daily DULoxetine (CYMBALTA) 30 mg, Oral, 2 times daily, Do not crush or chew. estradiol (Estrace) 0.5 MG tablet 1 tablet Orally Glucosamine-Chondroitin (OSTEO BI-FLEX REGULAR STRENGTH PO) Oral, Daily, 0 Refill(s) hyoscyamine (Levsin) 0.125 MG SL tablet DISSOLVE 1 TABLET UNDER TONGUE 4 TIMES A DAY NEEDED hyoscyamine (Levsin) 0.125 MG tablet Every 4 hours levothyroxine (Synthroid, Levoxyl) 50 MCG tablet liothyronine (CYTOMEL) 5 mcg losartan (Cozaar) 100 MG tablet Every 24 hours metoprolol tartrate (Lopressor) 50 MG tablet omeprazole (PriLOSEC) [address] capsule Every 24 hours Restoril 15 MG capsule Every 24 hours rifAXIMin (XIFAXAN) 550 mg, Oral tacrolimus (Protopic) 0.1 % ointment Apply to face and neck twice a day when itchy, hold when clear/ 90 day supply triamcinolone (Kenalog) 0.1 % cream Topical, 2 times daily PHYSICAL EXAM: Knee Musculoskeletal Exam Gait Gait is normal. Inspection Leg length disparity: no discrepancy Left Erythema: none Effusion: none Edema: none Ecchymosis: none Deformity: none Alignment: normal Previous incision: anterior Incision: well-healed Palpation Left Left knee palpation is unremarkable. Increased warmth: none Masses: none Tenderness: none Range of Motion Left Left knee range of motion is normal and full. Strength Left Left knee strength is normal. Extension: 5/5. Flexion: 5/5. Instability Left Instability signs: none - stable Varus stress grade: normal Valgus stress grade: normal Neurovascular Left Left knee neurovascular exam is normal. Pulses - PT: normal Posterior tibial: 2+ Capillary refill: warm and well-perfused Special Signs Left Left knee special signs are normal. Patellar apprehension: none Vitals: There is no height or weight on file to calculate BMI. Tobacco Use: Low Risk (08/13/2024) Patient History Smoking Tobacco Use: Never Smokeless Tobacco Use: Never Passive Exposure: Not on file Alcohol Use: Not on file IMAGING: XR knee 1 or 2 views left Imaging Result: AP and lateral of left knee showed surgical position and alignment of prosthetic components without evidence of loosening or wear to the femoral, tibial, or patellar components. The alignment appeared to be anatomic. There was no evidence of accelerated or asymmetric wear to the patellar button or tibial tray. Heterotopic ossification appears unchanged. There was no evidence of fracture and/or dislocation. Impression: Unremarkable left total knee arthroplasty. Procedures Orders Placed This Encounter Procedures XR knee 1 or 2 views left Order Specific Question: Reason for exam: Answer: POST-OP ASSESSMENT: ICD-10-CM 1. History of left knee replacement Z96.652 2. Acute pain of left knee M25.562 XR knee 1 or 2 views left PLAN: We have answered all the patients questions and explained the patients condition, decision making and plan including the risks and benefits associated with said plan in layman''s terms in a language the patient could understand easily. If patient''s symptoms significantly worsen and they cannot get a hold of us or their family physician, we have recommended that the patient proceed to the nearest emergency department (room). Dr. Aguilar obtained history and examined the patient, I am acting as scribe for Dr. Aguilar/lacy, PLAN: We have discussed (L) knee xrays with patient at bedside. Patient is pleased with her left knee progress as she admits her left knee is better now than it was prior to sx. She has good strength / ROM of her left knee with examination. We have discussed her HEP and restrictions an will see her back in 2 years to reassess her left knee with repeat xrays. Job Aguilar D.O. documented in this encounter [facility] 12-14-2023 History of Present illness Narrative Images from the original note were not included. HISTORY OF PRESENT ILLNESS: POST OP PT Romeo Bullock is an 83 y.o. @ female. No [...] her PCP for evaluation of diarrhea, taking [id number] medications. States she feels like they are [...] evaluation. FRANK Dangelo documented in this encounter [facility] 10-17-2023 Note [id number]#1.00[facility] 10-17-2023 Note [id number]#1.00[facility] 10-17-2023 Note [id number]#1.00[facility] 10-16-2023 Note Education Materials POST OPERATIVE [...] #8 follow up in office with physician golf player assistant Joe Vizcarra as scheduled #9 [facility] will be contacting you within the next 24 hours to set up home therapy visits #11 You have been given a prescription for [place], norco is narcotic, narcotics are addictive. If you feel you have problems with addiction please feel free to contact Dr. Aguilar, your family physician, or proceed to the nearest hospital's emergency services department. [facility] 10-16-2023 Note [facility] Clinical Discharge Summary PERSON INFORMATION Name ROMEO BULLOCK Age 83 Years 1940 Sex FEMALE Language Iranian PCP SANTIAGO PATRICIO Marital Status Phone Med Service Med/Surg Acct# Arrival 10/11/2023 06:57:39 Visit Reason SURGERY - RIGHT KNEE SCOPE Acuity LOS 005 01:37 Address: [address] [place] [address] Comment: PROVIDER INFORMATION VITALS INFORMATION Vital Sign [...] range between ( 1.3 and 2.9 ) [place] Abs#: 0.8 x103/mcL -- Normal range between ( 0.0 and 0.8 ) Auto Baso %: 0.2 % -- Normal range between ( 0.2 and 2.0 ) Auto [place] %: 9 % -- Normal range between [...] ( 32 and (more content not included)... [facility] 10-17-2022 Note PROCEDURE: XR SCAPUL A RT COMPARISON: None. HISTORY: Disorder of bone FINDINGS: BONES:No acute fracture or dislocation. Subchondral cystic changes of the greater tuberosity and humeral neck SOFT TISSUES:Negative. No visible soft tissue swelling. EFFUSION:None visible. OTHER: Aortic atherosclerosis IMPRESSION: No acute abnormality Electronically authenticated by: SHERYL SRINIVASAN Date: 2022-10-17 07:20 [facility] 08-16-2022 Note OPERATIVE NOTE OPERATION DATE: [...] colonoscopy to mid transverse colon. SURGEON: Arie Zuniga M.D. ANESTHESIA: Monitored anesthesia care. ESTIMATED BLOOD [...] recovery room in good condition. CC: Santiago Patricio M.D. [facility] 07-27-2022 Note CONSULTATION PROCEDURE DATE: [...] up in the office. [facility] 07-27-2022 Note CONSULTATION CONSULTATION DATE: [...] the plan of care. [facility] 06-01-2022 Note CONSULTATION CONSULTATION DATE: 06/01/2022 HISTORY [...] in agreement to this. [facility] 06-01-2022 Note CONSULTATION PROCEDURE DATE: [...] tolerated the procedure well. [facility] Evaluation + Plan note No data available for this section General Surgery [place] Evaluation + Plan note Future Appointments Appointment Date:07/14/2024 12:45:00 PM Scheduled Provider:Zeina LONGORIA, Lynn Mohr Location:[facility] Appointment Type:[facility] Follow Up [facility] Evaluation note No Information [facility] Other Evaluation note No assessment inform ation available [facility] Work Phone: Evaluation note Diagnosis S/P right knee arthroscopy- Primary [facility] encounter [facility] Diagnosis Other atopic dermatitis- Primary History of SCC (squamous cell carcinoma) of skin Personal history of other malignant neoplasm of skin Actinic keratosis Seborrheic keratosis, inflamed Seborrheic keratosis documented [facility] Diagnosis History of left knee replacement- Primary Acute pain of left knee documented [facility] Diagnosis Nondisplaced fracture of shaft of fifth metacarpal bone, right hand, subsequent encounter for fracture with routine healing documented in this encounter [facility] Narrative - Reported* Type Description Date Medical History appendectomy Medical History Arthritis Medical History cataracts Medical History diabetes mallitus Medical History gall bladder disease Medical History hypertension Medical History thyroid disease Surgical History appendectomy Surgical History bladder suspension, unspecified Surgical History gall bladder Surgical History knee replacement Hospitalization History see surgical hx [employer] Other Hospital Discharge instructions No data available for this section General Surgery [place] [facility] note No data available for this section General Surgery [place] Chief Complaint and Reason for Visit Chief Complaint r91.8 Advance Directives No Advanced Directives Records Found Advance Directive Response Recorded Date/ Time Advance Directives No October 2:29pm Summary Purpose Family History No Family History Records FoundNo Family History Records FoundNo Family History Records Found No data available for this section No data available for this section No Family History Records FoundNo Family History Records Found Additional Source Comments Patient Care team informatio n (unrecognized section and content) Team Status: Inactive Member Role Status Dates Santiago Patricio MD Primary Care Provider, Attending Edinson castanon Active Team Status: Active Member Role Status Dates Santiago Patricio MD Primary Care Provider Active Long Winder Tender Relationship Specialty Start Date End Date Santiago Patricio MD [address] [place] [address] PCP - General Family Medicine 10/05/23 Long Winder Tender Relationship Specialty Start Date End Date Santiago Patricio MD [address] [place] [address] PCP - General Family Medicine 10/05/23 Long Winder Tender Relationship Specialty Start Date End Date Santiago Patricio MD [address] [facility] [address] PCP - General Family Medicine 10/05/23 Long Winder Tender Relationship Specialty Start Date End Date Santiago Patricio MD [address] [facility] [address] PCP - General Family Medicine 10/05/23 Long Winder Tender Relationship Specialty Start Date End Date Santiago Patricio MD [address] [facility] [address] PCP - General Family Medicine 10/05/23 Long Winder Tender Relationship Specialty Start Date End Date Santiago Patricio MD [address] [facility] [address] PCP - General Family Medicine 10/05/23 Long Winder Tender Relationship Specialty Start Date End Date Santiago Patricio MD [address] [facility] [address] PCP - General Family Medicine 10/05/23 REASON FOR VISIT (unrecogniz ed section and content) Reason Comments Pain Reason Comments Skin Check Follow-up Reason Comments Post-op Reason Comments Follow-up Goals (unrecognized section and content) Goals may be documented in a n alternate section INFORMATION SOURCE (unrecogn ized section and content) DATE CREATED AUTHOR 11/14/2022 [facility] DATE CREATED AUTHOR AUTHOR'S ORGANIZ ATION 04/13/2023 [facility] DATE CREATED AUTHOR AUTHOR'S ORGANIZ ATION 11/02/2023 [facility] DATE CREATED AUTHOR AUTHOR'S ORGANIZ ATION 07/13/2024 [facility] DATE CREATED AUTHOR AUTHOR'S ORGANIZ ATION 08/25/2024 [facility] EPIC FOR RECORDS PERTAINING TO PATIENTS WHO ARE [...] BE BASED ON THE PRIMARY CLINICAL RECORDS. [facility]. provides no warranty or guarantee of the accuracy or completeness of information in this document.
--- NOTE | 2024-08-27 09:14 | P.CN_ITS ---
Consult Note: HPI Data of Consult Patient: known to practice within the last 3 years Requesting Physician: Ivanna Louise NP Primary Care Provider: Bakari Otto MD Consult Narrative Reason for consult: f/u Narrative: Alicia Bullock a pleasant 83 year old female presents for evaluation and management of chronic pain. Patient rating pain 0/10 today, at times 8/10 in low back and hips. Continues to take duloxetine 30mg daily with significant benefit. She has sparingly needed mobic 15mg, tramadol 50mg PRN, and baclofen 10mg PRN. she continues to engage in HEP with mild relief. GREGORY 10%. Patient remains functional and pain well controlled with current medication regimen. denies falls since last visit. cc:: CC: Ivanna Louise NP Review of Systems ROS Status of ROS 10 or more systems reviewed and unremark able except as noted in history and below Musculoskeletal Denies: back pain, neck pain, extremity pain or joint pain PFSH PFSH Social History Smoking status: Never smoker Meds Home Medications and Allergies Home Medications ?Medication ?Instructions ?Recorded ?Confirmed ?Type alendronate 70 mg tablet (Fosamax) 70 mg PO QWEEK 06/14/23 06/14/23 History amlodipine 10 mg tablet 10 mg PO DAILY 06/14/23 06/14/23 History aspirin 81 mg capsule 81 mg PO DAILY 06/14/23 06/14/23 History baclofen 10 mg tablet 10 mg PO .QHS PRN muscle spasm 06/14/23 08/23/23 History calcium 167 mg-vitamin D3 1.67 cap PO .QD 06/14/23 History mcg-magnesium 83 mg capsule duloxetine 30 mg capsule,delayed 30 mg PO DAILY 06/14/23 06/14/23 History release (Cymbalta) glucosamine ER 500 mg-chondroitin 1 tab PO DAILY 06/14/23 06/14/23 History 200 mg tablet,extended release levothyroxine 50 mcg tablet 50 mcg PO DAILY 06/14/23 06/14/23 History (Euthyrox) lisinopril 20 mg tablet 20 mg PO DAILY 06/14/23 06/14/23 History metoprolol tartrate 50 mg tablet 50 mg PO DAILY 06/14/23 06/14/23 History (Lopressor) omeprazole 20 mg tablet,delayed 20 mg PO BID 06/14/23 06/14/23 History release tramadol 50 mg tablet 50 mg PO DAILY PRN pain 06/14/23 06/14/23 History meloxicam 15 mg tablet 15 mg PO PRN 08/23/23 History duloxetine 30 mg capsule,delayed 30 mg PO DAILY #90 caps 03/21/24 Rx release tramadol 50 mg tablet 50 mg PO DAILY PRN pain #30 tabs 03/21/24 Rx duloxetine 30 mg capsule,delayed 30 mg PO DAILY #90 caps 08/15/24 Rx release Allergies Allergy/AdvReac Type Severity Reaction Status Date / Time No Known Drug Allergies Allergy Verified 11/18/23 17:41 Exam Constitutional Documenting provider has reviewed patient's vital signs: yes Common normals: no apparent distress, oriented x3, healthy appearing, alert and well nourished General appearance: cooperative [facility] Common normals: normocephalic, hearing grossly normal bilaterally and moist oral mucous membranes Head and scalp: normocephalic Face and sinus: normal facial exam Mouth: oral and palatal mucosa normal Eye Common normals: PERRL Pupil: PERRL Neck & C-Spine Common normals: full ROM General: normal visual inspection Cervical spine: cervical ROM normal Chest Common normals: inspection of chest normal Respiratory Common normals: normal respiratory effort, no retractions and no use of accessory muscles Back & Pelvis Common normals: thoracic and lumbar spine normal to inspection Thoracic spine/upper back: ROM limited Lumbar spine/lower back: ROM limited, paraspinal muscle tenderness and straight leg raise negative bilaterally Pelvis: other (no pain over PSIS or tenderness to palpation) Extremity Common normals: abnormal to inspection Other: cast to right arm Neuro Common normals: oriented x3, CN's II-XII intact bilaterally, moves all extremities, no focal motor deficits, no sensory deficits noted and deep tendon reflexes 2+ bilaterally Sensorium/orientation: alert Motor exam: strength 5/5 throughout and no movement abnormalities noted Psych Common normals: mental status grossly normal, thought process normal, cooperative, affect normal, speech normal and activity/motor behavior normal Appearance: grossly normal Speech: normal speech Thought process: normal thought process Thought content: normal thought content Results Additional Findings Additional findings: If on a controlled substance or opioids, I have checked an OARRS report on this patient and there are no aberrancies noted in the prescribing history.??If on a controlled substance or opioid a drug screen was completed and reviewed within the last year, and if there has not been a drug screen completed we ordered one today to monitor higher risk, state monitored pain medication use. As part of providing excellent, safe, comprehensive care, the following was completed at our patient's visit: 1. A medication reconciliation and review to ensure accurate knowledge of current/active medications, including asking our patients to inform us about any [id number] medications or herbal remedies/nutritional supplements/alternative remedies. 2. A review to specifically ensure our patients have had annual screening for screening for depression, screening for tobacco use, and screening for unhealthy alcohol use. For concerning screenings had a discussion with the patient, provided patient education, and recommended follow-up with primary care provider when appropriate. If patient noted with a risk of falling, they received education on strength, gait, and balance training to prevent future risk of falling. 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
== END 2024-08-27 08:45 | disposition home or self-care (01) ==
PROVIDERS: PCP Family Medicine; Visit Provider Nurse Practitioner
DX: M47.816 Spondylosis without myelopathy or radiculopathy, lumbar region (principal); M19.90 Unspecified osteoarthritis, unspecified site; M62.838 Other muscle spasm; Z79.891 Long term (current) use of opiate analgesic
CPT/HCPCS: G0463

== ENCOUNTER 2025-02-25 08:44 | Outpatient (OUT) | payer MEDICARE, SELFPAY ==
--- NOTE | 2025-02-25 09:04 | PM.CN ---
Consult Note: HPI Data of Consult Patient: known to practice within the last 3 years Requesting Physician: Ivanna Louise NP Primary Care Provider: Bakari Otto MD Consult Narrative Reason for consult: f/u Narrative: Alicia Bullock a pleasant 83 year old female presents for evaluation and management of chronic pain. Patient rating pain 0/10 today, at times 8/10 in low back and hips. Continues to take duloxetine 30mg daily with significant benefit. She has sparingly needed mobic 15mg, tramadol 50mg PRN, and baclofen 10mg PRN. she continues to engage in HEP with mild relief. GREGORY 10%. Patient remains functional and pain well controlled with current medication regimen. denies falls since last visit. cc:: CC: Ivanna Louise NP Review of Systems ROS Status of ROS 10 or more systems reviewed and unremarkable except as noted in history and below Musculoskeletal Reports: joint pain; Denies: back pain, neck pain or extremity pain PFSH PFSH Social History Smoking status: Never smoker Meds Home Medications and Allergies Home Medications ?Medication ?Instructions ?Recorded ?Confirmed ?Type alendronate 70 mg tablet (Fosamax) 70 mg PO QWEEK 06/14/23 06/14/23 History amlodipine 10 mg tablet 10 mg PO DAILY 06/14/23 06/14/23 History aspirin 81 mg capsule 81 mg PO DAILY 06/14/23 06/14/23 History baclofen 10 mg tablet 10 mg PO .QHS PRN muscle spasm 06/14/23 08/23/23 History calcium 167 mg-vitamin D3 1.67 cap PO .QD 06/14/23 History mcg-magnesium 83 mg capsule glucosamine ER 500 mg-chondroitin 1 tab PO DAILY 06/14/23 06/14/23 History 200 mg tablet,extended release levothyroxine 50 mcg tablet 50 mcg PO DAILY 06/14/23 06/14/23 History (Euthyrox) lisinopril 20 mg tablet 20 mg PO DAILY 06/14/23 06/14/23 History metoprolol tartrate 50 mg tablet 50 mg PO DAILY 06/14/23 06/14/23 History (Lopressor) omeprazole 20 mg tablet,delayed 20 mg PO BID 06/14/23 06/14/23 History release meloxicam 15 mg tablet 15 mg PO PRN 08/23/23 History duloxetine 30 mg capsule,delayed 30 mg PO DAILY #90 caps 08/15/24 Rx release tramadol 50 mg tablet 50 mg PO DAILY PRN pain #30 tabs 08/27/24 Rx Allergies Allergy/AdvReac Type Severity Reaction Status Date / Time No Known Drug Allergies Allergy Verified 11/18/23 17:41 Exam Constitutional Documenting provider has reviewed patient's vital signs: yes Common normals: no apparent distress, oriented x3, healthy appearing, alert and well nourished General appearance: cooperative HENDE Common normals: normocephalic, hearing grossly normal bilaterally and moist oral mucous membranes Head and scalp: normocephalic Face and sinus: normal facial exam Mouth: oral and palatal mucosa normal Eye Common normals: PERRL Pupil: PERRL Neck & C-Spine Common normals: full ROM General: normal visual inspection Cervical spine: cervical ROM normal Chest Common normals: inspection of chest normal Respiratory Common normals: normal respiratory effort, no retractions and no use of accessory muscles Back & Pelvis Common normals: thoracic and lumbar spine normal to inspection Thoracic spine/upper back: ROM limited Lumbar spine/lower back: ROM limited, paraspinal muscle tenderness and straight leg raise negative bilaterally; no pain with ROM Pelvis: other (no pain over PSIS or tenderness to palpation) Extremity Common normals: normal to inspection and full ROM Right upper extremity: wrist and hand and digits Left upper extremity: wrist and hand and digits Other: full ROM to hands and digits, pain with ROM Neuro Common normals: oriented x3 Sensorium/orientation: alert Motor exam: strength 5/5 throughout and no movement abnormalities noted Psych Common normals: mental status grossly normal, thought process normal, cooperative, affect normal, speech normal and activity/motor behavior normal Appearance: grossly normal Speech: normal speech Thought process: normal thought process Thought content: normal thought content Results Additional Findings Additional findings: If on a controlled substance or opioids, I have checked an OARRS report on this patient and there are no aberrancies noted in the prescribing history.??If on a controlled substance or opioid a drug screen was completed and reviewed within the last year, and if there has not been a drug screen completed we ordered one today to monitor higher risk, state monitored pain medication use. As part of providing excellent, safe, comprehensive care, the following was completed at our patient's visit: 1. A medication reconciliation and review to ensure accurate knowledge of current/active medications, including asking our patients to inform us about any [id number] medications or herbal remedies/nutritional supplements/alternative remedies. 2. A review to specifically ensure our patients have had annual screening for screening for depression, screening for tobacco use, and screening for unhealthy alcohol use. For concerning screenings had a discussion with the patient, provided patient education, and recommended follow-up with primary care provider when appropriate. If patient noted with a risk of falling, they received education on strength, gait, and balance training to prevent future risk of falling. Portions of this note may have been carried over from the previous visit and updated as appropriate. Please note this office utilizes paper charting in addition to the electronic medical record. A list of current medications, vitals, and PMH is available there as the clinical staff outside of myself do not have access to [employer] charting during the clinic day operations. As part of providing quality comprehensive care the current medications, vitals, and PMH were reviewed in the paper chart. 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 sparingly utilizes tramadol. f/u 6 months, sooner if needed
== END 2025-02-25 08:45 | disposition home or self-care (01) ==
PROVIDERS: PCP Family Medicine; Visit Provider Nurse Practitioner
DX: M47.816 Spondylosis without myelopathy or radiculopathy, lumbar region (principal); M15.9 Polyosteoarthritis, unspecified; M62.838 Other muscle spasm; Z79.891 Long term (current) use of opiate analgesic
CPT/HCPCS: G0463

== ENCOUNTER 2025-05-07 22:02 | Emergency (ER) | payer MEDICARE, SELFPAY ==
--- OUTSIDE RECORDS SUMMARY | 2024-07-09 06:30 | XMS_ITS ---
Author Organization [facility] Address [address] [place] [address] Care Team Providers Care Primary Counselor Name Role Phone Bakari Otto Primary Care Provider Jorge [facility] [phone] REASON FOR VISIT RIGHT HAND FRACTURE Encounters Encounter Location Date Provider Diagnosis [facility] [address] [place] [address] 07/09/2024 Jorge Gerard Plan Of Treatment No Information Progress Notes * CLAIRE NGUYỄN ADOB:1939 (84 yo F)Acc No.[id number]:07/09/2024 Patient: CLAIRE HENSON Provider: Brisa Gerard MD :1940 A ge:84 Y S ex:Female Date:07/09/2024 Address:[address] [place], [place] [id number] Pcp:Bakari Otto Subjective: * Chief Complaints: * 1 . RIGHT HAND FRACTURE. * Medical History: Objective: * Vitals: Assessment: Plan: * Treatment: Forms: * Images: * Electronic signature of Sim Gerard MD on 05/07/2025 at 10:15 PM EDT Sign off status: Pending * Provider: Brisa Gerard MD Date: 0 07/09/2024 Generated for Jay rodgers/Moshe/eTdomoniquesmitting on: 05/07/2025 10:15 PM EDT
--- OUTSIDE RECORDS SUMMARY | 2024-10-27 05:53 | XMS_ITS ---
Author Organization [facility] in [place] Address [address] [place] [address] Care Team Providers Care Family Practice Doctor Name Role Phone Clarita Shyam Primary Care Provider Medications Medication SIG (Take, Route, Fr equency, Duration) Notes Start Date End Date Status Dicyclomine HCl 20 MG 1 tablet Orally Th ree times a day for 90 days Active Cetirizine HCl 10 MG 1 tablet Orally Onc e a day for 90 days Active Encounters Encounter Location Date Provider Diagnosis [facility] [address] [place] [address] 10/27/2024 Shyam Otto Plan Of Treatment Medication Medication Name Sig Start Date Stop Date Notes Dicyclomine HCl 20 MG 1 tablet Orally Th ree times a day for 90 days Cetirizine HCl 10 MG 1 tablet Orally Onc e a day for 90 days Progress Notes * Alicia NGUYỄN ADOB:1939 (84 yo F)Acc No.[id number]:10/27/2024 Patient: Alicia HENSON :1940 A ge:84 Y S ex:Female Address:[address] [place] [id number] * Refills Refill Cetirizine HCl Tablet, 10 MG, Orally, 90 Tablet, 1 tablet, Once a day, 90 days, Refills=3 Refill Dicyclomine HCl Tablet, 20 MG, 270 Tablet, 1 tablet Orally Three times a day, 90 days, Refills=3 * true * Date: Generated for Jay rodgers/Moshe/Yoannaitting on: 0 05/07/2025 10:15 PM EDT
--- OUTSIDE RECORDS SUMMARY | 2025-04-29 07:00 | XMS_ITS ---
Author Organization The [facility] [place] Address [address] [place] [address] Care Team Providers Care Wire Frame Maker Name Role Phone Shyam Otto Primary Care Provider Viri Carrizales Unavailable [phone] Allergies Allergen (clinical drug ingredient) Drug/Non Drug Allergy documented on EMR Reaction Allergy Type Onset Date Status lisinopril Lisinopril cough Drug Allergy Activ e REASON FOR VISIT Presents to office alone for c/o coughing up clear phlegm and laryngitis x2 days Medications Medication SIG (Take, Route, Frequency, Duration) Notes Start Date End Date Status Omeprazole 20 MG TAKE 1 CAPSULE BY MOUTH TWICE DAILY for 90 Active Nitroglycerin 0.4 MG as directed Sublingual Active Triamcinolone Acetonide 0.1 % APPLY TO AFFECTED AREA TWICE A DAY for 60 Active tiZANidine HCl 4 MG 1 tablet as needed Orally Three times a day for 90 days Active Potassium Chloride ER 20 MEQ 1 tablet with food Orally Once a day Active Metoprolol Tartrate 50 MG TAKE 2 TABLETS BY MOUTH IN THE MORNING , 1 TABLET BY MOUTH AT LUNCH , AND 2 TABLETS BY MOUTH IN THE EVENING , DIRECTED for 90 Active Liothyronine Sodium 5 MCG TAKE 1 TABLET BY MOUTH DAILY for 90 Active Lasix 20 MG 1 tablet Orally Once a day-PRN Active Levsin/SL 0.125 MG 1 tablet under the tongue and allow to dissolve as needed Sublingual QID 11/28/2023 Active Levothyroxine Sodium 50 MCG TAKE 1 TABLET BY MOUTH DAILY for 90 days Active Glucosamine-Chondroitin 250-200 MG 1 capsule after a meal Orally Once a day Active Azithromycin 250 MG as directed Orally daily for 5 days take 2 tablet po on first day than 1 tablet po days 2-5 04/29/2025 Active DULoxetine HCl 30 MG 1 capsule Orally Once a day for 30 day(s) 06/18/2023 Active Dicyclomine HCl 20 MG 1 tablet Orally Three times a day for 90 days Active Diclofenac Sodium 75 MG 1 tablet as need ed Orally Twice a day Active Aspirin 81 81 MG 1 tablet Orally Once a day Active amLODIPine Besylate 5 MG 1 tablet Orally Once a day for 90 days Active Cetirizine HCl 10 MG 1 tablet Orally Onc e a day for 90 days Active Calcium Active Alendronate Sodium 70 MG TAKE 1 TABLET BY MOUTH WEEKLY WITH 8 OZ OF PLAIN WATER 30 MINUTES BEFORE FIRST FOOD, DRINK OR MEDS. STAY UPRIGHT FOR 30 MINS for 84 Active Social History Tobacco Use: Social History Observation Description Date Details (start date - stop date) Never Smoker NA - NA Tobacco Use/Smoking Question Answer Notes Patient is a nonsmoker AUDIT-C (Standard) Question Answer Notes Did you have a drink containing alcohol in the p ast year? No Points 0 Interpretation Negative Vital Signs Weight 129.4 lbs 04/29/2025 Height 63 in 04/29/2025 Blood pressure systolic 106 mm Hg 04/29/20 Blood pressure diastolic 60 mm Hg 025 Temperature 99.4 degrees Fahrenheit 04/29/20 BMI 22.92 kg/m2 04/29/2025 Oximetry 96 % 04/29/2025 Encounters Encounter Location Date Provider Diagnosis [address] [address] 04/29/2025 Viri Carrizales Bronchitis J40 Assessments Encounter Date Diagnosis (ICD Code) Assessment Notes Treatment Notes Treatment Clinical Notes Section Notes 04/29/2025 Bronchitis (ICD-10 - J40) OTC meds comfort rest push fluids abx if not improving Plan Of Treatment Medication Medication Name Sig Start Date Stop Date Notes Azithromycin 250 MG as directed Orally daily for 5 days 04/29/2025 take 2 tablet po on first day than 1 tablet po days 2-5 Treatment Notes Assessment Notes Bronchitis OTC meds comfort rest push fluids abx if not improving Next Appt Details Follow Up: prn, Reason: Progress Notes * Alicia NGUYỄN ADOB:1939 (84 yo F)Acc No.[id number]:04/29/2025 Progress Note Patient: Alicia HENSON Provider: Juan Carrizales ([facility]), DELIVERY AGENT :1940 A ge:84 Y S ex:Female Date:04/29/2025 Address:[address] [place] [address], [id number] Pcp:Shyam Otto Check In:10:50 AM ESTCheck O ut:11:08 AM EST Subjective: * Chief Complaints: * 1 . Presents to office alone for c/o coughing up clear phlegm and laryngitis x2 days. * HPI: G eneral: cough clear phlegm laryngitis. * ROS: G eneral/Constitutional: Fever d enies. H eadache d enies. W eight loss?denies. O phthalmologic: Discharge d enies. E ye Pain d enies. I tching and redness d enies. E NT: Nasal discharge d enies. N marlin congestion d enies.?Sore throat d enies. C ardiovascular: Chest tightness/ heavy pressure d enies. R apid heart rate d enies. S welling of extremities d enies. C hest pain d enies. ? R espiratory: Productive cough a dmits. C hest pain d enies. C ough a dmits and laryngitis. S hortness of breath d enies. W heezing d enies. G astrointestinal: Abdominal pain d enies. C onstipation d enies. D ecreased appetite d enies. D iarrhea d enies. N ausea d enies. V omiting?denies. G enitourinary: Urinary incontinence d enies. P ainful urination d enies. M usculoskeletal: Back pain d enies. N lexx pain d enies. M uscle aches d enies. S kin: Rash d enies. S kin lesion(s) d enies. ? * Active Problem List G57.72 Causalgia of left lo wer limb Modified On:08/16/2023W/U Status:confirmed I83.813 Varicose veins of bi lateral lower extremities with pain Modified On:02/14/2023 Status:confirmed R00.2 Palpitations Modified On:11/20/2023 Status:confirmed R07.9 Chest pain Modified On:02/14/2023 Status:confirmed M19.90 Osteoarthritis Modified On:08/16/2023 Status:confirmed R60.9 Edema Modified On:02/14/2023 Status:confirmed M85.80 Osteopenia Modified On:02/14/2023 Status:confirmed G47.00 Insomnia Modified On:02/14/2023 Status:confirmed K92.1 Hematochezia Modified On:02/14/2023 Status:confirmed G45.9 TIA (transient ische namita attack) Modified On:02/14/2023 Status:confirmed M54.16 Lumbar radiculopathy Modified On:02/14/2023 Status:confirmed K64.8 Internal hemorrhoids Modified On:02/14/2023 Status:confirmed Z00.00 Well adult Modified On:05/22/2023 Status:confirmed M79.606 Leg pain Modified On:02/14/2023 Status:confirmed K58.9 Irritable bowel synd lara Modified On:02/14/2023 Status:confirmed E16.2 Hypoglycemia Modified On:02/14/2023 Status:confirmed J30.2 Seasonal allergic rh initis Modified On:03/26/2023U Status:confirmed R25.2 Leg cramps Modified On:02/14/2023 Status:confirmed M25.569 Knee pain, unspecifi ed laterality Modified On:02/14/2023 Status:confirmed M48.04 Spinal stenosis of t horacic region Modified On:02/14/2023 Status:confirmed M48.07 Spinal stenosis of l umbosacral region Modified On:02/14/2023 Status:confirmed I49.1 Atrial premature dejah ts Modified On:02/14/2023 Status:confirmed K29.50 Antral gastritis Modified On:04/12/2023W/U Status:confirmed R22.2 Swelling, mass, or l ump in chest Modified On:02/14/2023 Status:confirmed I87.2 Venous insufficiency of both lower extremities Modified On:02/14/2023 Status:confirmed M41.9 Scoliosis of lumbar spine Modified On:02/14/2023 Status:confirmed I82.402 Acute deep vein thro mbosis (DVT) of left lower extremity Modified On:02/14/2023U Status:confirmed I10 Essential Hypertensi on Modified On:03/26/2023U Status:confirmed U07.1 COVID-19 Modified On:02/14/2023 Status:confirmed I49.8 Bigeminy Modified On:02/14/2023 Status:confirmed M47.816 Spondylosis without myelopathy or radiculopathy, lumbar region Modified On:03/19/2023U Status:confirmed M47.814 Spondylosis without myelopathy or radiculopathy, thoracic region Modified On:03/19/2023U Status:confirmed R91.1 Solitary pulmonary n odule Modified On:03/27/2023U Status:confirmed M17.9 Knee osteoarthritis Modified On:05/07/2023 Status:confirmed E78.00 Pure hypercholestero lemia, unspecified Modified On:05/22/2023 Status:confirmed 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, bilateral Modified On:06/13/2023U Status:confirmed M71.9 Bursitis Modified On:09/28/2023U Status:confirmed M17.11 Osteoarthritis of ri ght knee Modified On:10/01/2023U Status:confirmed R06.02 Shortness of breath Modified On:12/05/2023U Status:confirmed M20.61 Acquired deformities of toe(s), unspecified, right foot Modified On:02/01/2024U Status:confirmed B07.0 Plantar wart Modified On:02/01/2024U Status:confirmed B35.1 Tinea unguium Modified On:02/01/2024U Status:confirmed M25.579 Ankle pain Modified On:06/16/2024/U Status:confirmed M79.641 Right hand pain Modified On:07/02/2024/U Status:confirmed S62.309A Fracture of metacarp al of right hand, closed, initial encounter Modified On:07/02/2024/U Status:confirmed S62.356A Nondisplaced fractur e of shaft of fifth metacarpal bone, right hand, initial encounter for closed fracture Modified On:07/10/2024/U Status:confirmed * Medical History: S welling, mass, or lump in chest, Spinal stenosis of lumbosacral region, Lumbar radiculopathy, Causalgia of left lower limb, Antral gastritis, COVID-19, Acute deep vein thrombosis (DVT) of left lower extremity, Edema, Hypoglycemia, TIA (transient ischemic attack), Essential Hypertension, Insomnia, Chest pain, Varicose veins of bilateral lower extremities with pain, Venous insufficiency of both lower extremities, Well adult, Leg pain, Scoliosis of lumbar spine, Spinal stenosis of thoracic region, Osteopenia, Seasonal allergic rhinitis, Internal hemorrhoids, Irritable bowel syndrome, Hematochezia, Atrial premature beats, Bigeminy, Palpitations, Leg cramps, Knee pain, unspecified laterality, Osteoarthritis, Arthritis due to other bacteria, right knee. * Surgical History: A PPENDECTOMY , CHOLECYSTECTOMY , Left knee replacement , Bladder reposition , Bilateral foot surgeries , Back injections , arthroscopic knee surgery , right knee arthroscopy . * Hospitalization/Major Diagno stic Procedure: s ee above . * Family History: F ather: , cirrhosis. M other: , cirrhosis, diagnosed with Unspecified heart disease. S ister(s): breast cancer. S on(s): alive, Cancer mouth. D radha(s): alive, breast cancer, thyroid disease. 3 brother(s) , 6 sister(s) . 1 son(s) , 2 daughter(s) . .? * Social History: T obacco Use: T obacco Use/Smoking P atient is a n onsmoker D rug/Alcohol: A WINTER-C (Standard) D id you have a drink containing alcohol in the past year? N o P oints 0 I nterpretation N egative * Medications: T aking Alendronate Sodium 70 MG Tablet TAKE 1 TABLET BY MOUTH WEEKLY WITH 8 OZ OF PLAIN WATER 30 MINUTES BEFORE FIRST FOOD, DRINK OR MEDS. STAY UPRIGHT FOR 30 MINS , Taking amLODIPine Besylate 5 MG Tablet 1 tablet Orally Once a day , Taking Aspirin 81(Aspirin) 81 MG Tablet Chewable 1 tablet Orally Once a day , Taking Calcium , Taking Cetirizine HCl 10 MG Tablet 1 tablet Orally Once a day , Taking Diclofenac Sodium 75 MG Tablet Delayed Release 1 tablet as needed Orally Twice a day , Taking Dicyclomine HCl 20 MG Tablet 1 tablet Orally Three times a day , Taking DULoxetine HCl 30 MG Capsule Delayed Release Particles 1 capsule Orally Once a day , Taking Glucosamine-Chondroitin 250-200 MG Capsule 1 capsule after a meal Orally Once a day , Taking Lasix(Furosemide) 20 MG Tablet 1 tablet Orally Once a day-PRN , Taking Levothyroxine Sodium 50 MCG Tablet TAKE 1 TABLET BY MOUTH DAILY , Taking Levsin/SL(Hyoscyamine Sulfate) 0.125 MG Tablet Sublingual 1 tablet under the tongue and allow to dissolve as needed Sublingual QID , Taking Liothyronine Sodium 5 MCG Tablet TAKE 1 TABLET BY MOUTH DAILY , Taking Metoprolol Tartrate 50 MG Tablet TAKE 2 TABLETS BY MOUTH IN THE MORNING , 1 TABLET BY MOUTH AT LUNCH , AND 2 TABLETS BY MOUTH IN THE EVENING , DIRECTED , Taking Nitroglycerin 0.4 MG Tablet Sublingual as directed Sublingual , Taking Omeprazole 20 MG Capsule Delayed Release TAKE 1 CAPSULE BY MOUTH TWICE DAILY , Taking Potassium Chloride ER 20 MEQ Tablet Extended Release 1 tablet with food Orally Once a day , Taking tiZANidine HCl 4 MG Tablet 1 tablet as needed Orally Three times a day , Taking Triamcinolone Acetonide 0.1 % Cream APPLY TO AFFECTED AREA TWICE A DAY , Medication List reviewed and reconciled with the patient * Allergies: L isinopril: cough - Allergy. Objective: * Vitals: W t:129.4lbs, Ht: 63 in, BP:106/60mm Hg, Temp:99.4F, BMI:22.92Index, Oxygen sat %:96%, Ht-cm: 160.02 cm, Wt-k.7 kg. * Examination: G eneral Examinations: GENERAL APPEARANCE: a lert and oriented, i n no acute distress. EYES: c onjunctiva normal, sclera non-icteric. NOSE: n ormal external appearance. LUNGS: c lear to auscultation bilaterally. CARDIO: r egular rate and rhythm, S1, S2 normal. MUSCULOSKELETAL: G ait and station normal. SKIN: w arm and dry. Assessment: * Assessment: 1. B deep - J40 (Primary) Plan: * Treatment: * Preventive Medicine: Screenings/Counseling: F ALL RISK SCREENING Fall Risk Assessment: N o falls in the past year * Follow Up: p rn * * Electronically signed by Fannie Carrizales , OSCAR, WASHING TUB OPERATOR.DELIVERY AGENT.[id number] on 04/30/2025 at 09:16 AM EDT Sign off status: Completed Visit Status: C HK (Check Out) true * Provider: Juan Carrizales ([facility]), DELIVERY AGENT Date: 04/29/2025 Generated for Jay rodgers/Moshe/eTdomoniquesmitting on: 05/07/2025 10:15 PM EDT History and Physical Notes * HPI (History of Present Illness) Category Sub-Category Detail Notes Category Not es General cough clear phlegm laryngitis Examination Category Sub-Category Detail Notes Category Not es General Examinations GENERAL APPEARANCE: alert a nd oriented, in no acute distress EYES: conjunctiva normal, sclera non-icteric EARS: NOSE: normal external appe arance THROAT: CARDIO: regular rate and rhy thm, S1, S2 normal LUNGS: clear to auscultatio n bilaterally ABDOMEN: SKIN: warm and dry BACK: MUSCULOSKELETAL: Gait and station nor mal LYMPH NODES:
[2025-05-07 22:05] VITALS: BP 167/85; PULSE 81; TEMP 37.6; O2SAT 98; O2SAT 99; BMI 21.8
--- NOTE | 2025-05-07 22:11 | CT_ITS ---
[address] [address] Patient Name: CLAIRE NGUYỄN MRN: [id number] date: 1940 Sex: F Assigned Patient Location: ER Current Patient Location: ED.MAIN Accession/Order Number: [id number] Exam Date: 05/07/2025 22:50 Report Date: 05/07/2025 23:00 At the request of: KAI ODELL MD Procedure: CT cervical spine wo con Unenhanced head CT TECHNIQUE: Contiguous axial imaging of the head. The CT exam was performed using one or more the following dose reduction techniques: Automated exposure control, adjustment of the MA and/or Kv according to patient size, or use of the iterative reconstruction technique. COMPARISON: 11/18/2023 HISTORY: Fell. Right facial injury VENTRICLES: Within normal limits ATROPHY: Similar atrophy BRAIN PARENCHYMA: Decreased density of the white matter is most consistent with chronic small vessel disease. HEMORRHAGE: None HERNIATION: No mass effect or herniation INFARCTION: No recent vascular distribution infarction is seen. EXTRA-AXIAL FLUID COLLECTIONS None MIDBRAIN: Unremarkable CHANTELLE: Unremarkable MEDULLA: Unremarkable SINUSES: Small amount of blood in the right maxillary sinus. ORBITS: Grossly unremarkable MASTOIDS: Unremarkable BONY STRUCTURES Intact ADDITIONAL FINDINGS: CT Cervical Spine withoutcontrast TECHNIQUE: Axial imaging with 2-D and 3-D reconstruction. The CT exam was performed using one or more the following dose reduction techniques: Automated exposure control, adjustment of the MA and/or Kv according to patient size, or use of the iterative reconstruction technique. COMPARISON: None POST SURGERY CHANGES: None BONY ALIGNMENT: Straightening. Mild anterolisthesis BONY SPINAL CANAL: Patent central bony canal FRACTURE: BONY LESIONS: None SOFT TISSUES: Unremarkable DEGENERATIVE CHANGES: Extensive degeneration LUNG APICES: Unremarkable ADDITIONAL FINDINGS: CT Facial Bones without contrast TECHNIQUE: Axial imaging with 2-D reconstruction. The CT exam was performed using one or more the following dose reduction techniques: Automated exposure control, adjustment of the MA and/or Kv according to patient size, or use of the iterative reconstruction technique. COMPARISON: None FRACTURES: Right nasal bone fracture mildly depressed right infraorbital wall fracture. BONY LESIONS: None ORBITS: Unremarkable SINUSES: The sinuses are well pneumatized. SOFT TISSUES: Right periorbital soft tissue swelling ADDITIONAL FINDINGS: None CT/CT head/brain wo con IMPRESSION: No acute intracranial findings. No cervical spine fracture. Mildly depressed right inferior orbital wall fracture. No entrapment of fat or muscle. Small right maxillary hemorrhage. Right nasal bone fracture. Impression dictated by: Shahid Rodríguez M.D. 05/07/2025 11:00 PM Dictation Location: [employer] Electronically authenticated by: [id number] Y Date: 05/07/2025 23:00
--- NOTE | 2025-05-07 22:11 | CT_ITS ---
[address] [address] Patient Name: CLAIRE NGUYỄN MRN: [id number] date: 1940 Sex: F Assigned Patient Location: ER Current Patient Location: ED.MAIN Accession/Order Number: [id number] Exam Date: 05/07/2025 22:50 Report Date: 05/07/2025 23:00 At the request of: KAI ODELL MD Procedure: CT cervical spine wo con Unenhanced head CT TECHNIQUE: Contiguous axial imaging of the head. The CT exam was performed using one or more the following dose reduction techniques: Automated exposure control, adjustment of the MA and/or Kv according to patient size, or use of the iterative reconstruction technique. COMPARISON: 11/18/2023 HISTORY: Fell. Right facial injury VENTRICLES: Within normal limits ATROPHY: Similar atrophy BRAIN PARENCHYMA: Decreased density of the white matter is most consistent with chronic small vessel disease. HEMORRHAGE: None HERNIATION: No mass effect or herniation INFARCTION: No recent vascular distribution infarction is seen. EXTRA-AXIAL FLUID COLLECTIONS None MIDBRAIN: Unremarkable CHANTELLE: Unremarkable MEDULLA: Unremarkable SINUSES: Small amount of blood in the right maxillary sinus. ORBITS: Grossly unremarkable MASTOIDS: Unremarkable BONY STRUCTURES Intact ADDITIONAL FINDINGS: CT Cervical Spine withoutcontrast TECHNIQUE: Axial imaging with 2-D and 3-D reconstruction. The CT exam was performed using one or more the following dose reduction techniques: Automated exposure control, adjustment of the MA and/or Kv according to patient size, or use of the iterative reconstruction technique. COMPARISON: None POST SURGERY CHANGES: None BONY ALIGNMENT: Straightening. Mild anterolisthesis BONY SPINAL CANAL: Patent central bony canal FRACTURE: BONY LESIONS: None SOFT TISSUES: Unremarkable DEGENERATIVE CHANGES: Extensive degeneration LUNG APICES: Unremarkable ADDITIONAL FINDINGS: CT Facial Bones without contrast TECHNIQUE: Axial imaging with 2-D reconstruction. The CT exam was performed using one or more the following dose reduction techniques: Automated exposure control, adjustment of the MA and/or Kv according to patient size, or use of the iterative reconstruction technique. COMPARISON: None FRACTURES: Right nasal bone fracture mildly depressed right infraorbital wall fracture. BONY LESIONS: None ORBITS: Unremarkable SINUSES: The sinuses are well pneumatized. SOFT TISSUES: Right periorbital soft tissue swelling ADDITIONAL FINDINGS: None CT/CT facial bones wo con IMPRESSION: No acute intracranial findings. No cervical spine fracture. Mildly depressed right inferior orbital wall fracture. No entrapment of fat or muscle. Small right maxillary hemorrhage. Right nasal bone fracture. Impression dictated by: Shahid Rodríguez M.D. 05/07/2025 11:00 PM Dictation Location: [employer] Electronically authenticated by: [id number] Y Date: 05/07/2025 23:00
--- NOTE | 2025-05-07 22:12 | CT_ITS ---
The [address] [address] Patient Name: CLAIRE NGUYỄN MRN: [id number] date: 1940 Sex: F Assigned Patient Location: ED.MAIN Current Patient Location: ED.MAIN Accession/Order Number: [id number] Exam Date: 05/07/2025 22:50 Report Date: 05/07/2025 23:00 At the request of: KAI ODELL MD Procedure: CT cervical spine wo con Unenhanced head CT TECHNIQUE: Contiguous axial imaging of the head. The CT exam was performed using one or more the following dose reduction techniques: Automated exposure control, adjustment of the MA and/or Kv according to patient size, or use of the iterative reconstruction technique. COMPARISON: 11/18/2023 HISTORY: Fell. Right facial injury VENTRICLES: Within normal limits ATROPHY: Similar atrophy BRAIN PARENCHYMA: Decreased density of the white matter is most consistent with chronic small vessel disease. HEMORRHAGE: None HERNIATION: No mass effect or herniation INFARCTION: No recent vascular distribution infarction is seen. EXTRA-AXIAL FLUID COLLECTIONS None MIDBRAIN: Unremarkable CHANTELLE: Unremarkable MEDULLA: Unremarkable SINUSES: Small amount of blood in the right maxillary sinus. ORBITS: Grossly unremarkable MASTOIDS: Unremarkable BONY STRUCTURES Intact ADDITIONAL FINDINGS: CT Cervical Spine withoutcontrast TECHNIQUE: Axial imaging with 2-D and 3-D reconstruction. The CT exam was performed using one or more the following dose reduction techniques: Automated exposure control, adjustment of the MA and/or Kv according to patient size, or use of the iterative reconstruction technique. COMPARISON: None POST SURGERY CHANGES: None BONY ALIGNMENT: Straightening. Mild anterolisthesis BONY SPINAL CANAL: Patent central bony canal FRACTURE: BONY LESIONS: None SOFT TISSUES: Unremarkable DEGENERATIVE CHANGES: Extensive degeneration LUNG APICES: Unremarkable ADDITIONAL FINDINGS: CT Facial Bones without contrast TECHNIQUE: Axial imaging with 2-D reconstruction. The CT exam was performed using one or more the following dose reduction techniques: Automated exposure control, adjustment of the MA and/or Kv according to patient size, or use of the iterative reconstruction technique. COMPARISON: None FRACTURES: Right nasal bone fracture mildly depressed right infraorbital wall fracture. BONY LESIONS: None ORBITS: Unremarkable SINUSES: The sinuses are well pneumatized. SOFT TISSUES: Right periorbital soft tissue swelling ADDITIONAL FINDINGS: None CT/CT cervical spine wo con IMPRESSION: No acute intracranial findings. No cervical spine fracture. Mildly depressed right inferior orbital wall fracture. No entrapment of fat or muscle. Small right maxillary hemorrhage. Right nasal bone fracture. Impression dictated by: Shahid Rodríguez M.D. 05/07/2025 11:00 PM Dictation Location: [employer] Electronically authenticated by: [id number] Y Date: 05/07/2025 23:00
--- OUTSIDE RECORDS SUMMARY | 2025-05-07 22:15 | XMS_ITS | Clinical Summary ---
Author Organization [facility] Address [address] [place] [address] Care Team Providers Care Stakeholder Manager Name Role Phone Bakari Otto MD Primary Care Provider [phone] Social History Tobacco Use Types Packs/Day Years Used Date Smoking Tobacco: Never Assessed Comments Unknown Sex and Gender Information Value Date Recorded Sex Assigned at Not on file Legal Sex Female 1:40 PM EDT Gender Identity Not on file Sexual Orientation Not on file Plan of Treatment Health Maintenance Due Date Last Done Comments Anxiety Screening 1958 Depression Screening 1958 DTaP,Tdap,Td Vaccine (1 - Tdap) 1957 Diabetes Screening 1983 Pneumococcal Vaccine: 50+ (1 of 1 - PCV) 1988 Shingrix Vaccine (1 of 2) 1988 Bone Density Screening 2003 RSV Vaccine (1 - 1-dose 75+ series) 2013 Covid-19 Vaccine ( season) 2024 Advance Directive Discussion 11/05/2024 Influenza Vaccine (Season Ended) 2025 Insurance MEDICARE Care Teams Stakeholder Manager Relationship Specialty Start Date End Date Bakari Otto MD PCP - General Family Medicine 07/30/14
--- OUTSIDE RECORDS SUMMARY | 2025-05-07 22:15 | XMS_ITS | Encounter Summary ---
Author Organization [facility] Address [address] [place] [address] Care Team Providers Care Zinc Skimmer Name Role Phone Bakari [place] MD Primary Care Provider [phone] Encounter Details Date Type Department Care Team (Late Contact Info) Description 10/08/2023 Clinisync Result Encounter [facility] External Department Unsolicited Jamal Vizcarra PA 112 [facility] [address] [place] [address] Social History Tobacco Use Types Packs/Day Years Used Date Smoking Tobacco: Never Smokeless Tobacco: Never Alcohol Use Standard Drinks/Week Comments Never 0 (1 standard drink = 0.6 oz pur e alcohol) Comments Unknown Sex and Gender Information Value Date Recorded Sex Assigned at Not on file Legal Sex Female 7:15 PM EDT Gender Identity Not on file Sexual Orientation Not on file documented as of this encounter Plan of Treatment Upcoming Encounters Date Type Department Care Team (Late Contact Info) Description 06/11/2025 10:30 AM EDT Procedure Visit [facility] [address] [facility] [address] [place] [id number] Silvino Arellano DPM 300[address] [facility] 5 [place] [address] 09/01/2025 1:05 PM EDT Office Visit [facility] [address] [facility] 350 [place] [address] Nathalie Horne MD [address] [place] [address] [place] [address] 08/11/2026 10:30 AM EDT Office Visit [facility] [address] [place] [address] [place] [address] Jr. Delgado Aguilar, DO 112 [facility] [place] [address] [place] [address] documented as of this encounter Procedures Procedure Name Priority Date/Time Associated Diagnosis Comments MR KNEE RT WO CON 10/08/2023 12: 03 PM EST documented in this encounter Results * MR KNEE RT WO CON (10/08/2023 12:03 PM EST) Anatomical Region Laterality Modality Other 10/08/2023 12:0 3 PM EST Narrative 10/08/2023 12:03 PM EST [address] [address] Magnetic Resonance Report Signed Patient: CLAIRE NGUYỄN MR#: [id number] : 1940 Acct:[id number] Age/Sex: 83 / F ADM Date: 10/08/23 Loc: MRI Attending Dr: Jamal MARIE Ordering Physician: Jamal Vizcarra Date of Service: 10/08/23 Procedure(s): MR knee RT wo con Accession Number(s): [id number] cc: Bakari [place] M.D.; Jamal Vizcarra [address] [address] Patient Name: CLAIRE NGUYỄN MRN: [id number] date: 1940 Sex: F Assigned Patient Location: MRI Current Patient Location: MRI Accession/Order Number: [id number] Exam Date: 10/08/2023 09:53 Report Date: 10/08/2023 12:03 At the request of: JAMAL VIZCARRA Procedure: MR knee RT wo con EXAMINATION: MR knee RT wo con HISTORY: Internal Derangement Of Knee M23.91 COMPARISON: XR knee right 09/29/2023 TECHNIQUE: A complete multi-planar MRI was performed. FINDINGS: MEDIAL COMPARTMENT MEDIAL MENISCUS: Intrasubstance degeneration, and possible vertical tear within body and posterior junction seen on the coronal view. CARTILAGE: Mild cartilage thinning. BONES: Small periarticular degenerative osteophytes. No fracture or subchondral cysts. MCL AND MEDIAL CAPSULE: Grade I sprain of the medial collateral ligament. LATERAL COMPARTMENT LATERAL MENISCUS: Undersurface tear involving posterior horn, and suspected horizontal tear within body and posterior junction. CARTILAGE: Moderate thinning; no appreciable defect. BONES: Periarticular degenerative osteophytes. No fracture or subchondral cysts. LCL/POSTEROLAT COMPLEX: Normal lateral collateral ligament, fascicles, lateral capsule and ligaments. ANTERIOR COMPARTMENT PATELLA: Periarticular degenerative osteitis. No fracture or subchondral edema. CARTILAGE: Moderate or greater thinning. No appreciable focal defect or subchondral cyst. TENDONS: Normal. EFFUSION: Moderate joint effusion with a 17 x 14 x 10 mm slightly oval-shaped mass within posterior lateral aspect of the joint capsule cephalad to the lateral femoral condyle which remains low in signal on T1 and T2 sequences. ACL: Normal appearing ligament. PCL: Normal appearing ligament. MENISCOFEMORAL: Normal meniscofemoral ligaments. OTHER: Negative. MR/MR knee RT wo con IMPRESSION: 1. Evaluation is limited by significant patient motion artifact. 2. Medial meniscus intrasubstance degeneration and suspected small vertical tear within the body and posterior junction. 2. Lateral meniscus undersurface tear involving posterior horn and suspected horizontal tear within body and posterior junction. 3. Mild articular cartilage thinning throughout, with moderate or greater thinning involving the anterior compartment. 4. Mild strain of the medial collateral ligament. 5. Large loose body within the superior-lateral aspect of the joint capsule without appreciable donor site. Electronically authenticated by: RIGO ESPINO Date: 10/08/2023 12:03 Dictated By: Rigo Espino M.D. Signed By: 10/08/23 120 DD/ 02 TD/TT: Form Tamper Operator: Procedure Note Radiology, Radiologist, MD - 10/08/2023 [place] [address] Magnetic Resonance Report Signed Patient: CLAIRE NGUYỄN [facility]#: [id number] : 1940cct:[id number] Age/Sex: 83 / FADM Date: 10/08/23 Loc: MRI Attending Dr: Jamal MARIE Ordering Physician: Jamal Vizcarra Date of Service: 10/08/23 Procedure(s): MR knee RT wo con Accession Number(s): [id number] cc: Bakari [place] M.D.; Jamal Vizcarra [place] [id number] Patient Name: CLAIRE NGUYỄN MRN: [id number] date: 1940 Sex: F Assigned Patient Location: MRI Current Patient Location: MRI Accession/Order Number: [id number] Exam Date: 10/08/2023 09:53 Report Date: 10/08/2023 12:03 At the request of: JAMAL VIZCARRA Procedure: MR knee RT wo con EXAMINATION: MR knee RT wo con HISTORY: Internal Derangement Of Knee M23.91 COMPARISON: XR knee right 09/29/2023 TECHNIQUE: A complete multi-planar MRI was performed. FINDINGS: MEDIAL COMPARTMENT MEDIAL MENISCUS: Intrasubstance degeneration, and possible vertical tear within body and posterior junction seen on the coronal view. CARTILAGE: Mild cartilage thinning. BONES: Small periarticular degenerative osteophytes. No fracture or subchondral cysts. MCL AND MEDIAL CAPSULE: Grade I sprain of the medial collateral ligament. LATERAL COMPARTMENT LATERAL MENISCUS: Undersurface tear involving posterior horn, andsuspected horizontal tear within body and posterior junction. CARTILAGE: Moderate thinning; no appreciable defect. BONES: Periarticular degenerative osteophytes. No fracture or subchondral cysts. LCL/POSTEROLAT COMPLEX: Normal lateral collateral ligament, fascicles,lateral capsule and ligaments. ANTERIOR COMPARTMENT PATELLA: Periarticular degenerative osteitis. No fracture or subchondral edema. CARTILAGE: Moderate or greater thinning. No appreciable focal defect or subchondral cyst. TENDONS: Normal. EFFUSION: Moderate joint effusion with a 17 x 14 x 10 mm slightlyoval-shaped mass within posterior lateral aspect of the joint capsule cephalad to the lateral femoral condyle which remains low in signal on T1 and [id number]. ACL: Normal appearing ligament. PCL: Normal appearing ligament. MENISCOFEMORAL: Normal meniscofemoral ligaments. OTHER: Negative. MR/MR knee RT wo con IMPRESSION: 1. Evaluation is limited by significant patient motion artifact. 2. Medial meniscus intrasubstance degeneration and suspected smallvertical tear within the body and posterior junction. 2. Lateral meniscus undersurface tear involving posterior horn andsuspected horizontal tear within body and posterior junction. 3. Mild articular cartilage thinning throughout, with moderate or greater thinning involving the anterior compartment. 4. Mild strain of the medial collateral ligament. 5. Large loose body within the superior-lateral aspect of the jointcapsule without appreciable donor site. Electronically authenticated by: RIGO ESPINO Date: 10/08/2023 12:03 Dictated By: Rigo Espino M.D. Signed By:10/08/23 120 DD/ 120 TD/TT: Form Tamper Operator: us Jamal MARIE [facility] Final Resul t documented in this encounter Visit Diagnoses Not on filedocumented in this encounter Care Teams Zinc Skimmer Relationship Specialty Start Date End Date Bakari [place] MD [address] [place] [address] PCP - General Family Medicine 10/05/23 documented as of this encounter
--- OUTSIDE RECORDS SUMMARY | 2025-05-07 22:15 | XMS_ITS | Patient Health Record ---
Author Organization [facility] [place] Address [address] [place] [address] Care Team Providers Care Travograph Operator Name Role Phone Shyam Warren Primary Care Provider Viri Carrizales [phone] Allergies Allergen (clinical drug ingredient) Drug/Non Drug Allergy documented on EMR Reaction Allergy Type Onset Date Status lisinopril Lisinopril cough Drug Allergy Activ e Results Component Value Reference Range Notes XR HAND RT MIN 3V Reviewed date:07/02/2024 04:00:21 PM Interpretation: Performing Lab: Notes/Report: Source Facility: [place] [id number] XRay Report Signed Patient: ALICIA NGUYỄN MR#: [id number] : 1940 Acct:[id number] Age/Sex: 84 / F ADM Date: 07/02/24 Loc: RAD Attending Dr: Santiago Warren M.D. Ordering Physician: Santiago Warren M.D. Date of Service: 07/02/24 Procedure(s): XR hand RT min 3V Accession Number(s): [id number] cc: Santiago [place] M.D. [place] [address] Patient Name: ALICIA NGUYỄN MRN: [id number] date: 1940 Sex: F Assigned Patient Location: RAD Current Patient Location: RAD Accession/Order Number: [id number] Exam Date: 07/02/2024 10:29 Report Date: 07/02/2024 15:29 At the request of: SANTIAGO WARREN Procedure: XR hand RT min 3V IMAGES REVIEWED: XR hand RT min 3V COMPARISON: None available. CLINICAL INDICATION: Right Hand Pain M79.641 FINDINGS/IMPRESSION: BB marker placed by technologist. Acute mildly comminuted obliquely oriented nondisplaced fracture of the fifth metacarpal. Widening of the scapholunate interval suggesting scapholunate ligament injury. 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 Severe degenerative change second MCP joint. Moderate-severe degenerative change first IP and first CMC joints. Electronically authenticated by: CALIXTO BLISS Date: 07/02/2024 15:29 Dictated By: Calixto Bliss M.D. Signed By: 07/02/24 1531 DD/ 1529 TD/TT: Avionic Technician: [place] [address] XRay Report Signed Patient: ALICIA NGUYỄN MR#: [id number] : 1940 Acct:[id number] Age/Sex: 84 / F ADM Date: 07/02/24 Loc: [facility] Attending Dr: Santiago Warren M.D. Ordering Physician: Santiago Warren M.D. Date of Service: 07/02/24 Procedure(s): XR hand RT min 3V Accession Number(s): [id number] cc: Santiago [place] M.D. [place] [id number] Patient Name: ALICIA NGUYỄN MRN: [id number] date: 1940 Sex: F Assigned Patient Location: [facility] Current Patient Location: [facility] Accession/Order Numb er: [id number] Exam Date: 07/02/2024 10:29 Report Date: 07/02/2024 15:29 At the request of: SANTIAGO WARREN Procedure: XR hand RT min 3V IMAGES REVIEWED: XR hand RT min 3V COMPARISON: None available. CLINICAL INDICATION: Right Hand Pain M79.641 FINDINGS/IMPRESSION: BB marker placed by technologist. Acute mildly comminu lashae obliquely oriented nondisplaced fracture of the fifth metacarpal. Widening of the scap holunate interval suggesting scapholunate ligament injury. Severe erosive osteo arthritis of the fourth distal interphalangeal joint. Severe degenerative change second MCP joint. Moderate-severe degenerative change first IP and first CMC joints. Electronically casey nticated by: CALIXTO BLISS Date: 07/02/2024 15:29 Dictated By: Calixto Bliss M.D. Signed By: 07/02/24 1531 DD/ 1529 TD/TT: Avionic Technician: Reason For Referral Reason Please contact jazlyn devries JORGE! Thank You! Diagnosis 1 Fracture of metacarp al of right hand, closed, initial encounter (S62.309A) Referral Organization [facility] Referring Provider First Name Shyam Referring Provider Last Name Clarita Referring Provider Speciality Family [facility]ott Referred Provider Jorge Gerard Referred Provider Specialty Orthopedic S urgery Referral Priority Routine Medications Medication SIG (Take, Route, Frequency, Duration) Notes Start Date End Date Status Azithromycin 250 MG as directed Orally daily for 5 days take 2 tablet po on first day than 1 tablet po days 2-5 04/29/2025 Active DULoxetine HCl 30 MG 1 capsule Orally Once a day for 30 day(s) 06/18/2023 Active Triamcinolone Acetonide 0.1 % APPLY TO AFFECTED AREA TWICE A DAY for 60 Active tiZANidine HCl 4 MG 1 tablet as needed Orally Three times a day for 90 days Active Aspirin 81 81 MG 1 tablet Orally Once a day Active Metoprolol Tartrate 50 MG TAKE 2 TABLETS BY MOUTH IN THE MORNING , 1 TABLET BY MOUTH AT LUNCH , AND 2 TABLETS BY MOUTH IN THE EVENING , DIRECTED for 90 Active amLODIPine Besylate 5 MG 1 tablet Orally Once a day for 90 days Active Liothyronine Sodium 5 MCG TAKE 1 TABLET BY MOUTH DAILY for 90 Active Cetirizine HCl 10 MG 1 tablet Orally Onc e a day for 90 days Active Omeprazole 20 MG TAKE 1 CAPSULE BY MOUTH TWICE DAILY for 90 Active Calcium Active Nitroglycerin 0.4 MG as directed Sublingual Active Lasix 20 MG 1 tablet Orally Once a day-PRN Active Glucosamine-Chondroitin 250-200 MG 1 capsule after a meal Orally Once a day Active Alendronate Sodium 70 MG TAKE 1 TABLET BY MOUTH WEEKLY WITH 8 OZ OF PLAIN WATER 30 MINUTES BEFORE FIRST FOOD, DRINK OR MEDS. STAY UPRIGHT FOR 30 MINS for 84 Active Levsin/SL 0.125 MG 1 tablet under the tongue and allow to dissolve as needed Sublingual QID 11/28/2023 Active Levothyroxine Sodium 50 MCG TAKE 1 TABLET BY MOUTH DAILY for 90 days Active Dicyclomine HCl 20 MG 1 tablet Orally Three times a day for 90 days Active Diclofenac Sodium 75 MG 1 tablet as need ed Orally Twice a day Active Potassium Chloride ER 20 MEQ 1 tablet with food Orally Once a day Active Immunizations Vaccine Route Administration Date Status Comme nts Flu, Fluad (99484) 65 yrs and older, single-dose syringe IM Intramuscular 08/13/2024 Administered Flu, Fluad (23522) 65 yrs+, single-dose syringe (0479-8584) IM Intramuscular 08/16/2023 Administered Social History Tobacco Use: Social History Observation Description Date Details (start date - stop date) Never Smoker NA - NA Tobacco Use/Smoking Question Answer Notes Patient is a nonsmoker AUDIT-C (Standard) Question Answer Notes Did you have a drink containing alcohol in the p ast year? 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) Active confirmed Problem Pain co-occurrent and due to varicose veins of bilateral legs (7068595307771207 0) Varicose veins of bilateral lower extremities with pain (I83.813) Active confirmed Problem 476825903 Acquired deformities of toe(s), unspecified, right foot (M20.61) Active confirmed Problem 807400611 Spondylosis without myelopathy or radiculopathy, 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) Active confirmed Problem 331868277 Spondylosis without myelopathy or radiculopathy, lumbar region (M47.816) Active confirmed Problem Palpitations (75559038) Palpitations (R00.2) Active confirmed Problem Shortness of breath (251934924) Shortness of breath (R06.02) Active confirmed Problem 074972105 Solitary pulmonary nodule (R91.1) Active confirmed Problem Closed fracture of shaft of metacarpal bone (75218965) Nondisplaced fracture of shaft of fifth metacarpal bone, right hand, initial encounter for closed fracture (S62.356A) Active confirmed Problem Chest pain (38237807) Chest pain (R07.9) Active confirmed Problem Osteoarthritis (954133894) Osteoarthritis (M19.90) Active confirmed Problem Edema (70750754) Edema (R60.9) Active confirmed Problem Osteopenia (699642476) Osteopenia (M85.80) Active confirmed Problem Insomnia (932856900) Insomnia (G47.00) Active confirmed Problem Ankle pain (226355829) Ankle pain (M25.579) Active confirmed Problem Hematochezia (754490222) Hematochezia (K92.1) Active confirmed Problem Osteoarthritis of knee (292026495) Knee osteoarthritis (M17.9) Active confirmed Problem Transient ischemic attack (476594465) TIA (transient ischemic attack) (G45.9) Active confirmed Problem Lumbar radiculopathy (468950597) Lumbar radiculopathy (M54.16) Active confirmed Problem Internal hemorrhoids (47093031) Internal hemorrhoids (K64.8) Active confirmed Problem Well adult (655406313) Well adult (Z00.00) Active confirmed Problem Leg pain (98573408) Leg pain (M79.606) Active confirmed Problem Irritable bowel syndrome (33416073) Irritable bowel syndrome (K58.9) Active confirmed Problem Pain in right hand (104135699782682) Right hand pain (M79.641) Active confirmed Problem Hypoglycemia (854594349) Hypoglycemia (E16.2) Active confirmed Problem Seasonal allergic rhinitis (775134559) Seasonal allergic rhinitis (J30.2) Active confirmed Problem Cramp in lower limb (541437232) Leg cramps (R25.2) Active confirmed Problem Knee pain, unspecified laterality (M25.569) Active confirmed Problem Spinal stenosis of thoracic region (40613010) Spinal stenosis of thoracic region (M48.04) Active confirmed Problem Spinal stenosis of lumbosacral region (207700176) Spinal stenosis of lumbosacral region (M48.07) Active confirmed Problem Bursitis (52647272) Bursitis (M71.9) Active confirmed Problem Atrial premature beats (619924354) Atrial premature beats (I49.1) Active confirmed Problem 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) Antral gastritis (K29.50) Active confirmed Problem Mass of thoracic structure (994305538) Swelling, mass, or lump in chest (R22.2) Active confirmed Problem Peripheral venous insufficiency (28382418) Venous insufficiency of both lower extremities (I87.2) Active confirmed Problem Scoliosis of lumbar spine (518077680) Scoliosis of lumbar spine (M41.9) Active confirmed Problem Venous thromboembolic disease (219575217) Acute deep vein thrombosis (DVT) of left lower extremity (I82.402) Active confirmed Problem Essential hypertension (63425064) Essential Hypertension (I10) Active confirmed Problem 95453005 Pure hypercholesterole sonia, unspecified (E78.00) Active confirmed Problem Fracture of metacarpal of right hand, closed, initial encounter (S62.309A) Active confirmed Problem Osteoarthritis of knee (765601368) Osteoarthritis of right knee (M17.11) Active confirmed Problem COVID-19 (719788058) COVID-19 (U07.1) Active confirmed Problem Cardiac arrhythmia (884852223) Bigeminy (I49.8) Active confirmed Vital Signs Temperature 99.4 degrees Fahrenheit 04/29/2025 Oximetry 96 % 04/29/2025 Blood pressure diastolic 60 mm Hg 04/29/2025 Height 63 in 04/29/2025 Blood pressure systolic 106 mm Hg 04/29/2025 Weight 129.4 lbs 04/29/2025 BMI 22.92 kg/m2 04/29/2025 Encounters Encounter Location Date Provider Diagnosis [facility] [address] [place] [address] 06/16/2024 Shyam Hoy Ankle pain M25.579 [facility] [address] [place] [address] 07/02/2024 Shyam Hoy Right hand pain M79.641 [facility] [address] [place] [address] 08/13/2024 Shyam [place] Encounter for immunization Z23 [facility] [address] [place] [facility] [place] [address] 04/29/2025 Virinini Carrizales Bronchitis J40 [facility] [address] [place] [place] [address] 05/22/2024 Shyam Sany [facility] [address] [place] [place] [address] 07/02/2024 Shyam [place] Fracture of metacarp al of right hand, closed, initial encounter S62.309A [facility] [address] [place] [place] [address] 08/25/2024 Shyam Warren [facility] [address] [place] [address] 10/27/2024 Shyam [place] Assessments Encounter Date Diagnosis (ICD Code) Assessment Notes Treatment Notes Treatment Clinical Notes Section Notes 06/16/2024 Ankle pain (ICD-10 - M25.579) Will resgtart diclofenac and if not better - do prednisone 60 mg po Q day for 5 days 07/02/2024 Right hand pain (ICD-10 - M79.641) needs x-ray 08/13/2024 Encounter for immunization (ICD-10 - Z23) 04/29/2025 Bronchitis (ICD-10 - J40) OTC meds comfort rest push fluids abx if not improving 07/02/2024 Fracture of metacarpal of right hand, closed, initial encounter (ICD-10 - S62.309A) Plan Of Treatment Pending Test Test Name Order Date CMP (COMPLETE METABOLIC PANEL) UA (URINALYSIS, COMPLETE) 07/19/2023 T3 FREE, T4 FREE and TSH 05/21/2023 Urine Culture 07/19/2023 COMPREHENSIVE METABOLIC PROFILE WITH GFR 04/23/2024 CBC W/AUTO DIFF 04/23/2024 XR Hand 3 Views Right 07/02/2024 C. DIFF PCR 12/24/2023 CBC AUTO DIFF 05/21/2023 GLYCOHEMOGLOBIN A1C 05/21/2023 LIPID PROFILE 05/21/2023 STOOL CULTURE 12/24/2023 URINE MICROSCOPIC ONLY 07/19/2023 THYROID PANEL (T4/TSH/FREE T3) 4 Insurance Providers Payer Name Payer Address Payer Phone Subscriber Number Group Number Insured Name Patient Relationship to Insured Coverage Start Date Coverage End Date [place]IC[place] [address] [place] [address] [id number] Raifsnid er, Alicia Self - patient is the insured 3 [facility] [address] [place] [address] [id number] Raifsnid er, Alicia Self - patient is the insured 4 Medications Administered Medication Instructions Date of Administration Dosage Notes Kenalog-40 05/07/2023 80 mg 80. With 1cc lidocaine Kenalog-40 08/16/2023 80 mg 80 wiht 1 cc lidocaine Kenalog-40 09/28/2023 80 mg 80 Ketorolac Tromethamine 09/28/2023 30 mg 30 Medical (General) History Medical History History ICD Code Swelling, mass, or lump in chest R22.2 Spinal stenosis of lumbosacral region M4 8.07 Lumbar radiculopathy M54.16 Causalgia of left lower limb G57.72 Antral gastritis K29.50 COVID-19 U07.1 Acute deep vein thrombosis (DVT) of left lower extremity I82.402 Edema R60.9 Hypoglycemia E16.2 TIA (transient ischemic attack) G45.9 Essential Hypertension I10 Insomnia G47.00 Chest pain R07.9 Varicose veins of bilateral lower extrem ities with pain I83.813 Venous insufficiency of both lower extre mities I87.2 Well adult Z00.00 Leg pain M79.606 Scoliosis of lumbar spine M41.9 Spinal stenosis of thoracic region M48.0 4 Osteopenia M85.80 Seasonal allergic rhinitis J30.2 Internal hemorrhoids K64.8 Irritable bowel syndrome K58.9 Hematochezia K92.1 Atrial premature beats I49.1 Bigeminy I49.8 Palpitations R00.2 Leg cramps R25.2 Knee pain, unspecified laterality M25.56 9 Osteoarthritis M19.90 Arthritis due to other bacteria, right k nee M00.861 Surgical History Surgery Date(Month/Year) APPENDECTOMY CHOLECYSTECTOMY Left knee replacement Bladder reposition Bilateral foot surgeries Back injections arthroscopic knee surgery right knee arthroscopy Hospitalization History Reason Date(Month/Year) see above
--- OUTSIDE RECORDS SUMMARY | 2025-05-07 22:15 | XMS_ITS | Patient Health Record ---
Author Organization [facility] Address [address] [place] [address] Care Team Providers Care Poultry Husbandry Teacher Name Role Phone Bakari [place] Primary Care Provider Jorge [facility] [phone] Reason For Referral No Information Plan Of Treatment No Information Insurance Providers Payer Name Payer Address Payer Phone Subscriber Number Group Number Insured Name Patient Relationship to Insured Coverage Start Date Coverage End [place] [address] [place] [address] [id number] HOMAR FRENCHCLAIRE Self - patient is the insured MEDICARE [employer] [address] [address] [place] [address] [id number] VELASQUEZ FRENCH, CLAIRE Self - patient is the insured
--- OUTSIDE RECORDS SUMMARY | 2025-05-07 22:15 | XMS_ITS | Clinical Summary ---
Author Organization [facility] Address [address] [place] [address] Care Team Providers Care Sales And Customer Relations Rep Name Role Phone Bakari Otto MD Primary Care Provider [phone] Allergies No known active allergies Medications amLODIPine (Norvasc) 5 MG tablet 3 Active levothyroxine (Synthroid, Levoxyl) 50 MCG tablet 3 Active metoprolol tartrate (Lopressor) 50 MG tablet 3 Active acetaminophen (Tylenol 8 Hour Arthritis Pain) 650 MG ER tablet every 8 (eight) hours. Active alendronate (Fosamax) 70 MG tablet 3 Active aspirin 81 MG chewable tablet 1 (one) time each day at the same time. Active omeprazole (PriLOSEC) [address] capsule 1 (one) time each day at the same time. Active [facility] E Oil 45 MG/0.25ML oil USE 1 ML TOPICALLY ONCE DAILY FOR 30 DAYS 2 Active cetirizine (ZyrTEC) 10 MG chewable tablet Chew Daily Act dwayne DULoxetine (Cymbalta) [address] capsule Take 30 mg by mouth in the morning and 30 mg before bedtime. Do not crush or chew. . Active triamcinolone (Kenalog) 0.1 % cream Apply topically 2 (two) times a day Active cetirizine (ZyrTEC) 10 MG tablet TAKE 1 TABLET BY MOUTH EVERY DAY FOR 30 DAYS 4 Active Restoril 15 MG capsule 1 (one) time each day at the same time Active rifAXIMin (Xifaxan) 550 MG tablet Take 550 mg by mouth 4 Active liothyronine (Cytomel) 5 MCG tablet 5 mcg 3 Active hyoscyamine (Levsin) 0.125 MG tablet every 4 (four) hours Active losartan (Cozaar) 100 MG tablet 1 (one) time each day at the same time Active Glucosamine-Cho ndroitin (OSTEO BI-FLEX REGULAR STRENGTH PO) Oral, Daily, 0 Refill(s) 3 Active hyoscyamine (Levsin) 0.125 MG SL tablet DISSOLVE 1 TABLET UNDER TONGUE 4 TIMES A DAY NEEDED 4 Active estradiol (Estrace) 0.5 MG tablet 1 tablet Orally Active dicyclomine (Bentyl) 20 MG tablet Take 20 mg by mouth in the morning and 20 mg in the evening and 20 mg before bedtime. 4 Active ALPRAZolam (Xanax) 0.25 MG tablet every 8 (eight) hours Active tacrolimus (Protopic) 0.1 % ointmentIndicat ions:Other atopic dermatitis Apply to face and neck twice a day when itchy, hold when clear/ 90 day supply 90 g 2 4 Active diclofenac (Voltaren) 75 MG EC tablet every 12 (twelve) hours Active Active Problems No known active problems Encounters Date Type Department Care Team Description 04/02/2025 11:30 AM EDT Procedure Visit [facility] [address] [address] [place] [id number] Silvino Arellano DPM Pain due to onychomycosis of toenails of both feet (Primary Dx); Verruca plantaris; Foot pain, right; Acquired deformity of right toe 04/02/2025 Bamboo flowsheet [facility] [address] [address] [place] [id number] Silvino Arellano DPM 04/02/2025 Travel 02/26/2025 9:10 AM EDT Procedure Visit [facility] [address] [address] [place] [phone] Silvino Arellano DPM Verruca plantaris (Primary Dx); Foot pain, right; Pain due to onychomycosis of toenails of both feet; Acquired deformity of right toe 02/26/2025 Bamboo flowsheet [facility] [address] [facility] [address] [place] [address] Silvino Aerllano DPM 02/26/2025 Travel from Last 3 Months Family History Medical History Relation Name Comments Hypertension Mother Melanoma Neg Hx Relation Name Status Comments Father Mother Social History Tobacco Use Types Packs/Day Years Used Date Smoking Tobacco: Never Smokeless Tobacco: Never Tobacco Cessation:Counseling Given: Yes Alcohol Use Standard Drinks/Week Comments Never 0 (1 standard drink = 0.6 oz pur e alcohol) Comments Unknown Sex and Gender Information Value Date Recorded Sex Assigned at Not on file Legal Sex Female 7:15 PM EDT Gender Identity Not on file Sexual Orientation Not on file Last Filed Vital Signs Vital Sign Reading Time Taken Comments Blood Pressure 126/80 09/04/2024 8:19 AM EDT Pulse 82 09/04/2024 8:19 AM EDT Temperature - - Respiratory Rate 18 04/02/2025 11:06 AM EDT Oxygen Saturation - - Inhaled Oxygen Concentration - - Weight 54 kg (119 lb) 04/02/2025 11:06 AM EDT Height 160 cm (5' 3 ) 04/02/2025 11:06 AM EDT Body Mass Index 21.08 04/02/2025 11:06 AM EDT Plan of Treatment Upcoming Encounters Date Type Department Care Team (Late st Contact Info) Description 06/11/2025 10:30 AM EDT Procedure Visit [facility] [address] [facility] [address] [place] [phone] Silvino Arellano DPM [facility] [address] [place] [address] 09/01/2025 1:05 PM EDT Office Visit [facility] [address] [place] [phone] Nathalie Horne MD [address] [place] [address] 08/11/2026 10:30 AM EDT Office Visit [facility] [address] [place] [phone] Jr. Delgado Aguilar, DO [address] [facility] [address] [place] [address] Health Maintenance Due Date Last Done Comments Influenza Vaccine (Season Ended) 2025 08/17/2020, 07/26/2017, 08/05/2015 Pneumococcal Vaccine: 65+ Years Completed 7, 01/18/2016 Insurance MEDICARE [facility] Care Teams Sales And Customer Relations Rep Relationship Specialty Start Date End Date Bakari Otto MD [address] [place] [address] PCP - General Family Medicine 10/05/23
--- OUTSIDE RECORDS SUMMARY | 2025-05-07 22:16 | XMS_ITS | Clinical Summary ---
Author Organization [facility] Address [address] [place] [address] Care Team Providers Care Maritime Guard Name Role Phone Unavailable Primary Care Provider Unavailabl e Social History Tobacco Use Types Packs/Day Years Used Date Smoking Tobacco: Never Assessed [place] Safety & Environment Answer Date Rec orded Fear of Current or Ex-Partner Not on file Emotionally Abused Not on file 12/27/2023 Physically Abused Not on file 12/27/2023 Sexually Abused Not on file 12/27/2023 Physically or Sexually Abused Not on file Comments Unknown Sex and Gender Information Value Date Recorded Sex Assigned at Not on file Legal Sex Female 10:32 PM EDT Gender Identity Not on file Sexual Orientation Not on file Plan of Treatment Not on file
--- NOTE | 2025-05-07 22:29 | ED_ITS ---
HPI HPI - Fall General Chief Complaint: Fall Stated Complaint: FALL, HEAD INJURY Time Seen by Provider: 05/07/25 22:10 Source: patient Mode of arrival: Wheelchair Limitations: no limitations History of Present Illness HPI Narrative: This 84-year-old female who takes a daily baby aspirin is brought to the emergency department by her daughter. The patient was going to visit her who was admitted to the [facility] earlier today when she tripped on the curb and fell this striking the right side of her face on the pavement. She denies loss of consciousness. She has marked swelling and superficial abrasions to the right side of her face, zygoma area. Her vision is intact. She has no neck pain or stiffness. She has a very large bruise with swelling over the right cheek and zygoma area with some right periorbital ecchymosis. There is also an ecchymotic area in the right temporal area. She did not have any upper or lower extremity injury. She is ambulatory since the fall. She did not lose consciousness. She is here with her 2 daughters 1 of whom was with her when she fell. Related Data Home Medications ?Medication ?Instructions ?Recorded ?Confirmed alendronate 70 mg tablet (Fosamax) 70 mg PO QWEEK 06/0506/14/23 amlodipine 10 mg tablet 10 mg PO DAILY 06/14/2306/05 aspirin 81 mg capsule 81 mg PO DAILY 06/14/2306/05 baclofen 10 mg tablet 10 mg PO .QHS PRN muscle spa sm 06/14/23 08/23/23 calcium 167 mg-vitamin D3 1.67 cap PO .QD 06/14/23 mcg-magnesium 83 mg capsule glucosamine ER 500 mg-chondroitin 1 tab PO DAILY 06/1406/14/23 200 mg tablet,extended release levothyroxine 50 mcg tablet 50 mcg PO DAILY 06/14/23 0 06/14/23 (Euthyrox) lisinopril 20 mg tablet 20 mg PO DAILY 06/14/2306/05 metoprolol tartrate 50 mg tablet 50 mg PO DAILY 06/14/23 (Lopressor) omeprazole 20 mg tablet,delayed 20 mg PO BID 06/14/23 06/14/23 release meloxicam 15 mg tablet 15 mg PO PRN 08/23/23 Previous Rx's ?Medication ?Instructions ?Recorded duloxetine 30 mg capsule,delayed 30 mg PO DAILY #90 ca ps 08/15/24 release tramadol 50 mg tablet 50 mg PO DAILY PRN pain #30 tabs 08/27/24 duloxetine 30 mg capsule,delayed 30 mg PO DAILY #90 ca ps 02/25/25 release (Cymbalta) tramadol 50 mg tablet 50 mg PO DAILY PRN pain #30 tabs 02/25/25 Allergies Allergy/AdvReac Type Severity Reaction Status Date / Time No Known Drug Allergies Allergy Verified 05/07/25 22:11 Review of Systems ROS Status of ROS 10 or more systems reviewed and unremark able except as noted in history and below [facility] Social History Smoking status: Never smoker Little interest or pleasure in doing things: not at all Feeling down, depressed, or hopeless: not at all Exam Narrative Exam Narrative: Vital signs and Nursing Notes reviewed: Patient is afebrile with a normal pulse, blood pressure is elevated at 167/85, she is not hypoxic with pulse ox of 99% on room air General: Awake, alert, oriented, obvious right-sided facial injury, GCS 15 HEENT: Normocephalic, there is marked swelling, tenderness and bruising over the right zygoma, there is right periorbital ecchymosis, there is a hematoma at the right temporal area with a small skin tear at the medial aspect. Pupils are equal and reactive, no subconjunctival hemorrhage appreciated. There is no hemotympanum. There is no nasal bleeding or nasal bone tenderness. Neck: Supple, no midline bony vertebral tenderness or step-off Chest: Lungs are clear to auscultation with good air entry, there is no wheezing rhonchi or rales appreciated no accessory muscle use, patient is speaking in complete sentences-no chest wall tenderness to palpation CVS: Regular rate and rhythm S1-S2, no murmurs rubs or gallops, pulses are brisk and equal bilaterally ABD: Soft, nondistended, nontender, no rebound guarding or rigidity, bowel sounds are normal, no pulsatile masses appreciated Extremities: Moving all extremities, no lower extremity tenderness or swelling noted-patient is ambulatory denies any pain in her wrists, knees, hips, neck or back Skin: Normal in appearance with the exception of the right side of the face with redness, swelling, bruising and superficial skin tears as described in the HEENT section Neuro: No focal deficits Constitutional Vital Signs, click to edit/add: Last Vital Signs Temp 99.7 F 05/07/25 22:05 Pulse 81 05/07/25 22:05 Resp 16 05/07/25 22:05 BP 167/85 H 05/07/25 22:05 Pulse Ox 98 05/07/25 22:05 O2 Del Method Room Air 05/07/25 22:05 Course Vital Signs Vital signs: Vital Signs Temperature 99.7 F 05/07/25 22:05 Pulse Rate 81 05/07/25 22:05 Respiratory Rate 16 05/07/25 22:05 Blood Pressure 167/85 H 05/07/25 22:05 Pulse Oximetry 99 05/07/25 22:05 Oxygen Delivery Method Room Air 05/07/25 22:05 Temperature 99.7 F 05/07/25 22:05 Pulse Rate 81 05/07/25 22:05 Respiratory Rate 16 05/07/25 22:05 Blood Pressure 167/85 H 05/07/25 22:05 Pulse Oximetry 98 05/07/25 22:05 Oxygen Delivery Method Room Air 05/07/25 22:05 MDM - Fall MDM Narrative Medical decision making narrative: This 84-year-old female who is not on blood thinners besides a daily baby aspirin is brought to the emergency department by her family. Her was recently admitted to the [facility] locally. She was going to see him and tripped on a curb landing on the right side of her face. She did not have any loss of consciousness. Her neuroexam is normal. She has not had any nausea or vomiting. She has no neck or back pain. She has no upper or lower extremity pain. She has marked swelling of the right side of her face. There is no subconjunctival hemorrhage. There is bruising and swelling over the right zygoma, right temporal area and right periorbital ecchymosis. She has some superficial abrasions around the areas of bruising and swelling that are not amenable to repair. She was given ice upon arrival and Tylenol. She denies any severe pain. Tetanus was updated. CT scan of the brain, cervical spine and facial bones was ordered. CT scan of the brain is negative for acute findings. CT scan of the cervical spine shows degenerative changes but no acute fracture. CT scan of the facial bones shows a right nasal bone fracture with mild depressed right infraorbital wall fracture without entrapment of fat or muscle with a small right maxillary hemorrhage and right nasal bone fracture. The results of these findings were discussed with the patient and her family. She was medicated with a dose of doxycycline prior to discharge to prevent infection due to the nature of these fractures. She will be discharged home with a prescription for doxycycline with recommendation for ice and Tylenol as needed for pain. She will be referred to plastic surgery locally for further evaluation. Discharge Plan Discharge Chief Complaint: Fall Clinical Impression: Fall from standing, Fracture of orbital floor, Closed fracture nasal bone Patient Disposition: Home, Self-Care Time of Disposition Decision: 23:35 Condition: Good Prescriptions / Home Meds: No Action aspirin 81 mg capsule 81 mg PO DAILY calcium 26-vit D3-magnesium 15 167 mg calcium- 1.67 mcg-83 mg capsule PO .QD alendronate [Fosamax] 70 mg tablet 70 mg PO QWEEK glucosamine-chondroitin 500-200 mg tablet extended release 1 tab PO DAILY levothyroxine [Euthyrox] 50 mcg tablet 50 mcg PO DAILY amlodipine 10 mg tablet 10 mg PO DAILY lisinopril 20 mg tablet 20 mg PO DAILY metoprolol tartrate [Lopressor] 50 mg tablet 50 mg PO DAILY omeprazole 20 mg tablet,delayed release (DR/EC) 20 mg PO BID baclofen 10 mg tablet 10 mg PO .QHS PRN (Reason: muscle spasm) tramadol 50 mg tablet 50 mg PO DAILY PRN (Reason: pain) Qty: 30 0RF duloxetine 30 mg capsule,delayed release(DR/EC) 30 mg PO DAILY Qty: 90 0RF duloxetine [Cymbalta] 30 mg capsule,delayed release(DR/EC) 30 mg PO DAILY Qty: 90 1RF tramadol 50 mg tablet 50 mg PO DAILY PRN (Reason: pain) Qty: 30 0RF meloxicam 15 mg tablet 15 mg PO PRN Print Language: Croatian Instructions: Nasal Fracture (ED), Facial Fracture (DC) Referrals: [facility] [Other] - 1 week Referral Note: Orbital floor fracture Bakari Otto MD [Primary Care Provider, Family Practice] - 1 week
[2025-05-07] MEDS: ACETAMINOPHEN 325 MG TABLET 650 MG PO (22:47)
[2025-05-07] MEDS: ADACEL DIPH,PERTUSS(ACELL),TET VAC/PF 0.5 ML ADULT SYRINGE IM (22:47)
[2025-05-07] MEDS: DOXYCYCLINE MONOHYDRATE 100 MG CAPSULE PO (23:59)
== END 2025-05-08 00:14 | disposition home or self-care (01) ==
PROVIDERS: Emergency Provider Emergency Medicine; PCP Family Medicine
DX: S02.2XXA Fracture of nasal bones, initial encounter for closed fracture (principal); S02.85XA Fracture of orbit, unspecified, initial encounter for closed fracture; S00.81XA Abrasion of other part of head, initial encounter; W01.0XXA Fall on same level from slipping, tripping and stumbling without subsequent striking against object, initial encounter; Z79.82 Long term (current) use of aspirin
CPT/HCPCS: 70450; 70486; 72125; 90471; 90715; 99285

== ENCOUNTER 2025-07-24 08:26 | Outpatient (OUT) | payer MEDICARE, SELFPAY ==
--- OUTSIDE RECORDS SUMMARY | 2025-07-24 08:30 | XMS_ITS | CCD ---
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 Role Phone Santiago Patricio Primary Care Physician [phone] Rachana Salmon Unavailable MD Santiago Patricio Primary Care Provider [phone] MD Santiago Patricio Attending Provider Santiago [...] HOY ., DR HENDERSON Primary Care Unavailable HOLTWOOD, DR SHERYL Navarrete Consulting Unavailable HOY ., DR HENDERSON Primary Care Unavailable HOY ., DR HENDERSON Attending Unavailable HOY ., DR HENDERSON Admitting Unavailable HOY ., DR HENDERSON Consulting Unavailable HALKER .HORTENCIA Admitting Unavailable HALKER .HORTENCIA Attending Unavailable HOY ., DR HENDERSON Primary Care Unavailable HALKER ., HORTENCIA Consulting Unavailable HALKER .HORTENCIA Attending Unavailable HOY ., DR HENDESRON Primary Care Unavailable HALKER .HORTENCIA Admitting Unavailable [...] RACHANA Admitting Unavailable BLADES, RACHANA Attending Unavailable HOLTWOOD, DR SHERYL Navarrete Consulting Unavailable HOY ., [...] Unavailable Santiago Patricio MD Primary Care Provider [phone] Lynn Pastrana Attending Unavailable Lynn Pastrana Attending Unavailable Lynn Pastrana Attending Unavailable Santiago Patricio MD Primary Care Provider [phone] ISAI HORNE Attending Unavailable CALIXTO BARBA Attending Unavailable CALIXTO BARBA Referring Unavailable ISAI HORNE Attending Unavailable SILVINO CAREY Attending Unavailable SILVINO CAREY Attending Unavailable SILVINO CAREY Attending Unavailable SILVINO CAREY Attending Unavailable CALIXTO BARBA Attending Unavailable CALIXTO BARBA Referring Unavailable CALIXTO BARBA Attending Unavailable CALIXTO BARBA Referring Unavailable JR. EMIR, JOB Jeffery Attending Unavaila yash AGUILAR JR.JOB Referring Unavaila ble WILLA, ISAI A Attending Unavailable CALIXTO BARBA Attending Unavailable CALIXTO BARBA Referring Unavailable SILVINO CAREY Attending Unavailable CALIXTO BARBA Attending Unavailable CALIXTO BARBA Referring Unavailable CALIXTO BARBA Attending Unavailable CALIXTO BARBA Referring Unavailable SILVINO CAREY Attending Unavailable Allergies Allergy Classification Reported Allergen(s) Allergy Type Date of Onset Reaction(s) Facility (1 source) No Known Medication Allergies; Translations: [No Known Medication Allergies] Propensity to adverse reactions (disorder) [facility] Repository Medications Current Medications Medication Drug Class(es) Dates Sig (Normalized) Sig (Original) 8 hr acetaminophen 650 mg extended release oral tablet (20 sources) acetaminophen (Tylenol 8 Hour Arthritis Pain) 650 MG ER tablet every 8 (eight) hours. Active alendronic acid 70 mg oral tablet (20 sources) Bisphosphonate Start: 06-08-2022 alendronate (Fosamax) 70 MG tablet 03/04/2023 Active ALPRAZolam 0.25 mg oral tablet (20 sources) Benzodiazepine ALPRAZolam (Xana x) 0.25 MG tablet every 8 (eight) hours Active amLODIPine 5 mg oral tablet (20 sources) Dihydropyridine Calcium Channel Betsy Start: 06-16-2023 amLODIPine (Norvasc) 5 MG tablet 06/16/2023 Active Start: 06-08-2022 take 2 tablets by mo [facility] once daily amLODIPine 5 mg Tab 10 mg = 2 tab(s), Oral, Daily, Refills(s) 0 Start Date: 06/08/22 Status: Ordered amLODIPine Besyl ate 5 MG Oral for 90 Days Active aspirin 81 mg delayed release oral tablet (20 sources) Platelet Aggregation Inhibitor, Nonsteroidal Anti-inflammatory Drug [...] Active take 1 tablet by mouth once gumreet y ZyrTEC 10 MG 1 tablet Orally Once a day Active Chondroitin Sulfates / Glucosamine (20 sources) Start: 10-11-2023 Glucosamine-Ch ondroitin (OSTEO BI-FLEX REGULAR STRENGTH PO) Oral, Daily, 0 Refill(s) 10/11/2023 Active Start: 06-08-2022 take 1 tablet by robert th once daily Osteo Bi-Flex 1 tab(s), Oral, Daily, Refill(s) 0 Start Date: 06/08/22 Status: Ordered [facility] Oil 45 MG/0.25ML oil (20 sources) Start: 10-09-2022 [facility] Oil 45 [...] sodium 75 mg delayed release oral tablet (20 sources) Nonsteroidal Anti-inflammatory Drug Start: 06-08-2022 take [...] Ordered dicyclomine hydrochloride 20 mg oral tablet (20 sources) Anticholinergic Start: 01-21-2024 take 1 tablet by mouth in the morning, then take 1 tablet by mouth in the evening, then take 1 tablet by mouth at bedtime dicyclomine (Bentyl) 20 MG tablet Take 20 mg by mouth in the morning and 20 mg in the evening and 20 mg before bedtime. 01/21/2024 Active DULoxetine 30 mg delayed release oral capsule (20 sources) Serotonin and Norepinephrine Reuptake Inhibitor take 1 capsule by mouth in the morning DULoxetine (Cymbalta) [address] capsule Take 30 mg by mouth in the morning and 30 mg before bedtime. Do not crush or chew. . Active estradiol 0.5 mg oral tablet (20 sources) Estrogen estradiol (Estrace) 0.5 MG tablet 1 tablet Orally Active ferrous sulfate (1 source) take 1 tablet by mouth twice daily Ferrous Sulfate 325 (65 Fe) MG TAKE 1 TABLET BY MOUTH TWICE A DAY Oral for 30 Days Active hyoscyamine sulfate 0.125 mg sublingual tablet (20 sources) Start: 12-13-2023 hyoscyamine (Levsin) 0.125 MG SL tablet DISSOLVE 1 TABLET UNDER TONGUE 4 TIMES A DAY NEEDED 12/13/2023 Active hyoscyamine (Lev sin) 0.125 MG tablet every 4 (four) hours Active levothyroxine sodium 0.05 mg oral tablet (20 sources) l-Thyroxine Start: 06-16-2023 levothyroxine (Synthroid, Levoxyl) 50 MCG tablet 06/16/2023 Active Start: 06-08-2022 take 1 tablet by robert th once daily levothyroxine 50 mcg (0.05 mg) Tab 50 mcg = 1 tab(s), Oral, Daily, Refills(s) 0 Start Date: 06/08/22 Status: Ordered liothyronine sodium 0.005 mg oral tablet (20 sources) l-Triiodothyronine Start: 10-11-2023 liothyronin e (Cytomel) [...] Active losartan potassium 100 mg oral tablet (20 sources) Angiotensin 2 Receptor Betsy losartan (Cozaar) 100 MG tablet 1 (one) time each day at the same time Active menthol 0.05 mg/mg medicated patch (1 source) apply 1 dose transdermal route three times daily as needed Icy Hot 5 % 1 patch as needed Externally Three times a day for 7 days Active metoprolol tartrate 50 mg oral tablet (20 sources) beta-Adrenergic Betsy Start: metoprolol tartrate (Lopressor) [...] omeprazole 20 mg delayed release oral capsule (20 sources) Proton Pump Inhibitor Start: 06-08-2022 take [...] Days Active rifAXIMin 550 mg oral tablet (20 sources) Rifamycin Antibacterial Start: 01-23-20 rifAXIMin (Xifaxan) 550 MG tablet Take 550 mg by mouth 01/23/2024 Active tacrolimus 0.001 mg/mg topical ointment (20 sources) Calcineurin Inhibitor Immunosuppressant Start: 06-02-20 tacrolimus (Protopic) 0.1 % ointment Indications: Other atopic dermatitis Apply to face and neck twice a day when itchy, hold when clear/ 90 day supply 90 g 2 06/02/2024 Active temazepam 15 mg oral capsule (20 sources) Benzodiazepine Start: 06-08-20 take 1 capsule [...] Class(es) Dates Sig (Normalized) Sig (Original) Triamcinolone (20 sources) Corticosteroid Start: 06-08-2022 triamcinolone Top 0.1% Crm 1 dano, Topical, BID, Refill(s) 0 Start Date: 06/08/22 Status: Ordered Start: 06-08-2022 triamcinolone Top 0.1% Crm 1 dano, Topical, BID, Refill(s) 0 Start Date: 06/08/22 Status: Ordered triamcinolone (K enalog) 0.1 % cream Apply topically 2 (two) times a day Active Problems Active Problems Problem Classification Problem Date Documented Da te Episodic/Chronic Acquired foot deformities (6 sources) Acquired deformity of toe of right foot; Translations: [Acquired deformities of toe(s), unspecified, right foot] 08-29-2024 Episodic Allergic reactions (2 sources) Atopic dermatitis; Translations: [...] 05-01-2022 06-08-2022 Chronic Fracture of upper limb (12 sources) Fracture of shaft of metacarpal bone; Translations: [Nondisplaced fracture of shaft of fifth metacarpal bone, right hand, subsequent encounter for fracture with routine healing] 08-15-2024 Episodic Gastritis and duodenitis (1 source) Unspecified chronic gastritis without bleeding; Translations: [UNS CHRONIC GASTRITIS W/O BLEEDING] Onset: 08-24-2022 Chronic Mycoses (6 sources) Pain in toe; Translations: [Tinea unguium] 08-29-2024 Episodic Neoplasms of unspecified nature or uncertain behavior (2 sources) Neoplastic disease; Translations: [Neoplasm of unspecified behavior of bone, soft tissue, and skin] 12-16-2024 Episodic Noninfectious gastroenteritis (2 sources) Noninfectious enteritis; Translations: [...] (3 sources) Vascular insufficiency 06-08-2022 Episodic Other connective tissue disease (6 sources) Pain in right foot; Translations: [Pain in right foot] 08-29-2024 Episodic Other connective tissue disease (4 sources) Pain in right hand; Translations: [Pain in right hand] 07-03-2024 Episodic Other disorders of stomach and duodenum [...] than 30 06-13-2022 Episodic Other skin disorders (4 sources) Actinic keratosis; Translations: [Actinic keratosis] 08-14-2024 [...] of lower extremity 06-08-2022 Episodic Viral infection (6 sources) Verruca plantaris; Translations: [Plantar wart] 08-29-2024 Episodic Viral infection (1 source) COVID-19; Translations: [COVID-19] Onset: 07-05-2022 Past or Other Problems Problem Classification Problem Date Documented Da te Episodic/Chronic Deficiency and other anemia (5 sources) Iron deficiency anemia, unspecified; Translations: [IRON DEFICIENCY ANEMIA UNSPECIFIED] Onset: 08-10-2022 Episodic Gastrointestinal hemorrhage (1 source) Melena; Translations: [MELENA] Onset: 08-24-2022 Episodic Other aftercare (1 source) detention (current) use of aspirin; Translations: [[facility] CURRENT USE OF ASPIRIN] Onset: 08-24-2022 Episodic Other aftercare (1 source) 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; Translations: [facility] SOFT TISSUE DISORDERS] Onset: 04-28-2022 Episodic Other connective tissue disease (1 source) Pain of toes of bilateral feet; Translations: [Pain in right toe(s)] 06-22-2024 Episodic Other gastrointestinal disorders (5 sources) Other [...] Test Name Value Interpretation Reference Range Facility No Panel Informationon 02-03 [facility] XR Hand - right 3 [facility] Result: 12/29/2024: Multiple views of right hand demontstrate healing 5th MC shaft fracture in acceptable position with increased callus formation when compared to prior x-ray. There was no other acute bony process including but not limited to separate fracture and/or dislocation. 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 [facility] Gross Text [facility] ICD10 Code L57.0 [facility] Microscopic Description Initial sections and levels through the block were reviewed. [facility] PROTOCOL F - FLAT [facility] Specimen type Nom (Spec) SPECIMEN: LEFT CHEEK [facility] No Panel Informationon 12-16 Type of biopsy: poon ential Informed consent: discussed and consent obtained Informed consent comment: The risks and benefits of the biopsy were discussed. Risks include but are not limited to bleeding, infection, scarring, pain, and nerve damage. An opportunity to ask questions prior to the procedure was permitted and all questions were answered. Patient was prepped and draped in usual sterile fashion: area cleansed with alcohol. Anesthesia: the lesion was anesthetized in a standard fashion Anesthetic: 1% lidocaine w/ epinephrine 1-100,000 buffered w/ 8.4% NaHCO3 Instrument used: DermaBlade Hemostasis achieved with: electrodesiccation Outcome: patient tolerated procedure well Outcome comment: The specimen was placed in a prelabeled formalin container to be sent for pathology Post-procedure details: sterile dressing applied and wound care instructions given Post-procedure details comment: Emphasized need to contact clinic for any signs of infection, uncontrollable bleeding, or complications. Dressing type: bandage Additional details: Photo taken Amount of lidocaine used: 1.0 cc [facility] No Panel InformationOrdered By: Elaine Bernardo on 12-16-2024 [facility] XR Hand - right 3 [facility] Result: 10/06/2024 Multiple views of right hand demontstrate healing 5th MC shaft fracture in unchanged position and alignment but increased callus formation when compared to prior x-ray. There was no other acute bony process including but not limited to separate fracture and/or dislocation. Impression: Healing right 5th MC shaft fracture Calixto SUAZO [facility] Radiology Study observation (narrative) [facility] XR Hand - right 3 [facility] Result: 09/09/2024: AP, LAT and Oblique xray of right hand demonstrate healing oblique fracture of right 5th MC shaft in acceptable position and alignment. There is increased callus compared to previous xray but there is still not a definitive union of fracture. Impression: Healing 5th MC shaft fracture Calixto SUAZO [facility] Radiology Study observation (narrative) [facility] XR Hand - right 3 [facility] Result: 08/19/2024: AP, LAT and Oblique xray of right hand demonstrate healing oblique fracture of right 5th MC shaft in acceptable position and alignment. There is increased callus but no definitive union is established. 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 Impression: Unremarkable left total knee arthroplasty. [facility] Radiology Study observation (narrative) [facility] XR Hand - right 3 [facility] Result: Imaging Result: Multiple views of right hand showed fracture through the Shaft of the fifth metacarpal to be in unchanged position and alignment with increased callus formation at the fracture site compared to prior x-ray. There was no other acute bony process including but not limited to separate fracture and/or dislocation. Impression: Healing fracture Shaft of Right fifth metacarpal [facility] XR Hand - right 3 [facility] Study observation (narrative) [facility] XR Hand - right 3 [facility] Result: Multiple views of right hand showed a fifth metacarpal shaft fracture. There was no other acute verena process including but not limited to separate fracture or dislocation. Impression: right fifth metacarpal shaft fracture [facility] No Panel Informationon 07-03 Calixto Barba NP 08/2024 3:31 PM Cast / Splint / Fx Date/Time: 07/03/2024 4:09 PM Performed by: Calixto Barba NP Authorized by: Calixto Barba NP Consent given by: patient Injury Location details: right hand Fracture type: fifth metacarpal fracture Pre-procedure assessment Distal perfusion: normal Distal sensation: normal Range of motion: reduced Procedure Manipulation performed? no manipulation performed Immobilization: cast Cast type: short arm (ulnar gutter) Supplies used: Ortho-Glass and cotton padding (2 rolls used) Post-procedure assessment neurovascularly intact Range of motion: unchanged Patient tolerance: patient tolerated the procedure well with no immediate complications Comments Discussed importance of Ice and elevation of casted extremity: Cast Care reviewed: [facility] XR Hand - right 3 [facility] Study observation (narrative) [facility] Ambulatory Visit Summaryon 0 04-14-2024 Ambulatory Visit Summary ALICIA BULLOCK :1940 Visit Date:04/14/2024 Ambulatory Visit Instructions [...] Follow-Up Appointments Sunday 12:45 PM EDT With: Lynn Pastrana MD Where: [facility] Normal [facility] Gastroenterology Office/Clin ic Noteon 04-14-2024 Gastroenterology [...] TID, # 42 tab(s), Refills(s) 0, Pharmacy: [facility]/pharmacy #[id number], 159, cm, 01/23/24 14:05:00 EDT, Height/Length [...] TID, # 42 tab(s), Refills(s) 0, Pharmacy: [facility]/pharmacy #[id number], 159, cm, 01/23/24 14:05:00 EDT, Height/Length [...] Tobacco Use:., (more content not included)... Normal [facility] Comment on above: Result Comment: Elec [...] TID, # 42 tab(s), Refills(s) 0, Pharmacy: [id number], 159, cm, 01/23/24 14:05:00 EDT, Height/Length [...] Brother. Cirrhosis o (more content not included)... [facility] Comment on above: Result Comment: Elec tronically Signed By: Zeina LONGORIA, Lynn Mahoney.br\Date and Time Signed: 01/23/24 14:17 EDT Physician Referralon 024 Physician Referral [id number] [facility] Coding Summaryon 10-22-2023 Coding Summary HTMLBase 64 IwwambqhIPw2mGj+PGhlYWQ+PE1F XOIwQ53cyXTpbO2eE5EYULiJVwcy OYIZQYzQKmAfszZtOI5tpXAfNDQl IC8+KV3aUPRjBvxgkUKxz7G5dWD3 S22xju3qLAzplGT7REWqLeNhvmtn k0stvKc4ZBcpYzqiLmPx NFUuuY22DUW4oE96Rw22xKBvmOTp x3ztdCq0RbKoRFHjYFD3tSwiXIgc y8MbQXGxA92znFMup3O2 SDVxlFxwmGXaSlLrbHJ2lK1mZTlu ddyeh8maodhdChs7rw80nRMpe5S7 rKB7A6HyfpX4AXNrrAWy BavxxXWJdU3vzxxyz4fmhhsoKvYr JGAlBSs2LTi6RJQueHzgVgBlWI62 XME8FJVtjkIuM4AaMMBf uGucUnL0w1O2Ef0UT8GIDygjM0FJ TUFSWTwvdGQ+QI54be15K7UxVpbg Iwo2WBVvYFZ1kOY8rJ2i ZWDyTEzol4X8jEY2X6UuihNjht7e e6stVWOxBQsvO09iuLLtt2R6TXUs oAR3HLYlcFktTfIgsU29 Oyc+OGFfrBmnk6SxQtxwp0aqr2kq vGr8EvniJWIbkgRraAirCZG1x7Ik Bn6fAWQlyPQ2pLE0jR5n DwZgXxI4EIibS120LqUamTKvPvxs J51mN8GdmHX+MNYgWbk7QPQgpLxe YF5pP8HwJYLmizzixWXs pNjwRF9rEUTnvadwVBFgbE5gHSCs G4h6WoXlSkL4MBmtY5WtLXPnghiw Lz45mP6sQzKnVcI8XJcf W0GdqhZ5AXKlqDTeUBpaHMJ7U83f p3L1YICmNHNjOMC9wAM9dB9wiHnq bjogbGVmdDsgdmVydGlj EMuhJWtuG157DUYvlYteRdBuCMov ZyBEYXRlOiAgMTIvMTgvMjAyMzwv dGQ+EZHnVTE1gZtrUCIm mLMjCZdbLr6yzItdtUefTP3iOUMf dikqRAQemV6lWTUlkZDhfJhtHZ9g JDKubqeqo894GdWtBUL7 MRRoaCXnR7OrkJ4yIpFyNTRvPSDk B8MxyJBwWZkpP811OHrgZmV7XSBo jqJhN5UsXKOtrAatRxJ9 w1G9Ul7Gg8BkjfxcG5SltNYtIxHj VjkoIWa4O8WxIzijbRB+JS45ESGh AP31XFz6UMD3dZkyCDil XXAwV6UzkM1gVaHqMXUxBIJzYwy+ PHRhYmxlIHdpZHRoPScxMDAlJyBz nXdhEV1jWq3mJXKsJZAx xNjbnBNeZhIwt1tpZNMcZPvbVC8c kPipO7IrkPE8WITml2y9Ci05Q37u C3OysPP+HPDqoDX9zOQ4 bL9tYcUtAaC6PAbuE983SrHshUQh Vwern5use1qecLr8SlY9RTAgrtUl cEsoLAN5a8PvHb24J23m XGboXULaEUKwPVKrJTJjgBtlsr9e zZ0eFu4+ACBhxJG7fTZ7tG5tJoMw CnK8APbsM270FmZrbVXp Adyoa9tzb7pqrXk6TmSpBHKmwgQm rYhpKIU9o1YgUc95Z1UouWalt5Ph Ieu3px21dLLkv6M9xMZ5 H6DoSJAnqgfhzIPqnLsyVK7oBKSy gkquLRVhfL0eXAKyA6f3GrTsIfL4 QPuuA2OrumN0XMDwgAIy CAKnmCJCcX5nnlxdh2uiwputQmZj ERDgTKq0GGq7WLYbwYqnItGaAWI4 RlR9EED7dMMzhK0lvVvf ddyykM7hZyl+SXN5dIZwgVCVAP0b OjwvdGQ+JTSxFCI1rBlkJZqsKGLg sP8wQLCbG5v7PhIuPdQ0 PCgvI3RomfA3BNLmuAMkDYTltOOS qO4xzguhq6sfhyglSvDsOOFqHBe4 MMf3FRJumFewGvJjASV5 BpA6EUG7kXMskZ9lrEvukxvncL2x Oyc+JctqyVzsVBP7KSu9O8LkPwt6 PMKwrXwcMG8ttTRbDLin Ix5jiKbfqAaoRM4iHPFodhlci550 ShVwy3epXZGguLEmGBbvPSE5V06p v4M6ZQPxZMOkTFN7aVL2 dO2qjYlypmaydLJohFqffqOoeVyi CJhzMCwyL952BSRbpKfjMlBqVId7 R5KaZkv1VEYmvKlcGL2c sZVcWLwyKv1twQzopUtpTG8gEKWb hsxxo918LgSrf4hwGKDrjFKrGDje GNV4H52mf3X6HVHsACOy JLI0fXE5nO9quShwqlfetIZvuCbr glWkvGmyBKwbRQruZ243GKZsbCdg IgLuhDm3Q9WiVdg3NIVh gAtwZE6rqSIfCWrpMt5cbJfemDvu LF0lJOSolbssy893PbMuw2xaSWFi rPUqYLoqOKM2F98we1F0 TCXaEGJjNNN5bMB8gC1ytDtahgae nUNxbDyrkdPsyRsmFSkkZYrfH803 IHRvcDsnPlBhdGllbnQg CZofXXt2X2UvHkarjCA+PB80XNUs BP72wEQuhJNuo3basGx6AyEuKUDg BVC3vNzaEWlpd7SqPJIk K48lrPQpl6E3FTSprDmhkLWvYiTo xNB9aD5pZGzsvsxgc7jehuxtVmki g2flbr54eQ74Q25cZGir GWHuUFTvJGCsKJYwtQeywt8wbT1x Ii8+WWGaqDP5pKI7rB0yBDNiPzT2 BQlqA309UdEjaUMjDsil x3bwi4xhjEt3KjJ8GEUkobDhlFlp GDE7g2UgMe12Q98sMQtoXQLxLPKj QVSyGFDflOlgde1rtD0o Ii8+FFLyfBF1zXO4lA9jXtEdLoY5 AMptG423JoUrnEGoAlvkU20rK9Qz dXA+VNKtMqs1XJNtiIsh CN2zhZNaQPuiSl7zDDL7IvIuReCv WZyzL8GbYYWpnwleimotgYR1HGIh DVGkdX98Mk9akPvvIOXv cYWOoN7cswedf5naxddcPiRsSYIz WJs8ZNc8NTTbdLegSzUjOBJ1SzR4 HEZ9zKHwuK5zkLpzfmsb mT9zX6NbYSWebccvIb60kU9qBvMd QpI0AInwUkz+UkFJRlNOSURFUiwg TUFSWSBBTElDRTwvdGQ+ ALCxTEI4oHwnLDddRJLqyS7gREYn O5m7GjPwSaM9TMkgO4YfDFAzyrfr Gw38sY6kKvWsAeN9IKty S3IxbfJ1URXlwGNeUJnpRBN8V69g o5O5QHZxPTKaRZN7wBD7zW4vkZhe bjogbGVmdDsgdmVydGlj LOgoCWcxN885HKIjnBwdIkS3FwCb CbP1Yti5E4FtMgp5ZWKecJzdOT6a gMMjUPbdNh7pdQnnxPwl AW3rEVNfvxvdXYUxkN0iSRUxmVPv fPxlPL1vFRSepfkks899TfQlQWC8 KEXfbTAiL4JmaG7aYaGv GANiAFUuS9SguQLbKJigA125FKvz OgY6LKOcfrVxE4FcXBGtdGzqZzC0 n7G0My42UJAAGUMzrfig dGQ+MJCoJNH5pZmfOKnkJSDwlQ5j IFDtW1y5CqAlEeW6KIjwI2EsXUWm ypzgTj02mQ7jFqFfIuC5 ZZmqD8InkmJ9NPFirAYtHRlmYKR0 C66aj7Y5TAUqSBWuXRI5pUZ1qY5p bGlnbjogbGVmdDsgdmVy qVgfORsaMAdqS506QJGuzOfjWjLW TUFMRTwvdGQ+JYGxNLG4gFxvYUji EPDxkZ5xJUStG8r0UbJm RnO6YOgxI9YyRAZzmwblKp66uA2q JaBpErJ9NEnbA5GlnjY6UVKdhYDm LVhfLHL4V44bv2O6GMAu WZEqDXE4dRC8pL5dpLqgsnnvcLHh dVoenlAycYgyMBqzTMusW938PNOd vZtaQkecvNY3mLPxoNuq dGQ+FC09fm17Y8MsEzcaCvi2APMn DQN3iXB3wN9yEWFzJKsrh5S7mYM7 D0QfwnYors5pv4oxYCPg DFzeE49elEGxr5N4DJCnpER0LJLd pTueBxArbV00Gwy+KPXqfLjoc9Pi Vzrcc9bzk5tmnOp4HpSn NACnetDflCepHQG8o9GzRm69T51r GBevUBPaJFXrXNQoYULsnCavdx7f qM1jAk7+KRQnkCU9nBP6 tD4gVuAkAnM4JNkuB049KhMlnVVf Zkoqt7atr7rumBe5CdEyCYQxqbJa aFlcJSY0a9FuZb14Q0Bc tXcxx4TeAzd6lx74sAPbx4Q2wAE3 Z0IpHQKxicrnfSNtkSztKD9rVOKz oxsuMLCkzR9qXFIjU5f6 BtNkLzG4YZogQ9HebfK1YFGiuYJb LGCarEQKvX9ffgaba3jkbxjpSaQj KMGxOBr9OLe8XDEhkCun QeOsAUD3NmX7THZ1wSQdmI6gyHgf txmlkY8cTtj+SUn7o0tesKReWJ3u fJT3MP26WQ06rTSwn7X7 vOS8O4KuNCVblfzmwfpydVQ8TCGw AGUmzY20Mu8psXiaXl8pEICqIAR6 KVIiuCPcZ9OrhY1dPyPq GAMoSZEuL0FfpPWpDBbdN095YUlw RkJ0AIEkdeShB2UiDIFtwMfrZzT6 a1G8Ps7DTV85BZ98OZ40 hJLou4O0tZU3S9CrSGOcdgamkjbf rWO5OSWcGAQzdU43Ck7cxWnrSz1x VWFsTTA7MDGysXFnA5Cf cH0lVxLiSXSdFMEwC3YxaPCaIObv F313CKskYuX0THTdsvJzJ1HrXBEe xQmcOnT4l8V0Iu1WHx09 QT09PH49wVCpt9G4lOO9S7ZoOKBy tfqxnbbobLI4OIDcKIPerZ61Jl7m lLqpRl5sZGThNBO6QPGi cNIyS5MxfG1xUhUcAMYhRKDcO4Ed xDYbNOdcP749ZHkzZzE0EDZpfvEo D2ShSADssEadEsD6q6R1 Bn8ODXpiekd1N8JyHyfaeFQ+PC90 WUCeLM29lTUgtPZrm3cjyHk0AiIt MDQzRKO8zLrrEUiyp4Ye ZXI (more content not included)... Normal C Bloodon 10-18-2023 C Blood No growth at 5 Days [facility] Comment on above: Performed By: #### 2 [id number], [id number] #### [facility] (DEFAULT) [address] [place] [address] Consent Formson 10-17-2023 Consent Forms [id number] 10-17-2023 Outside Records [id number]#1.[facility] Provider Orderson 10-17-2023 Provider Orders [id number]#1.[facility] Telemetry Stripson Telemetry Strips [id number]#1.00OTGTIFF [facility] Therapeutic Documentation on 10-16-2023 Therapeutic Documentation [id number]#1.00[facility] C [facility] 10-16-2023 C Blood patient went to CAT scan Nurse from [address] [place] [address] will call when patient is back to her room @1440 elviktor No growth at 5 Days Normal Comment on above: Performed By: #### 6 [id number] ####[facility] (DEFAULT)[address] [place] [address] CRPon 10-16-2023 CRP 3.1 mg/dL High <=0.5 Comment on above: Performed By: #### 2 [id number], [id number] #### [facility] (DEFAULT) [address] [place] [id number] Inpatient Patient Summaryon 10-16-2023 Inpatient Patient Summary [address] [address] Patient Discharge Instructions Name: ALICIA BULLOCK : 1940 Patient Address: [address] [place] [address] Primary Care Provider: Name: SANTIAGO PATRICIO After you are discharged if you find you have any questions, please, call [phone] ext [phone] to speak to a nurse. The Pharmacy at [facility] is open Sunday through Sunday [...] alcohol and/or drug addiction problems; contact the [facility] 28/05 Crisis Hotline -Text 4HSJL ni [phone]. If you received any narcotics, sedation, or [...] business decisions or sign any legal documents would like to thank you for allowing us to assist you with your healthcare needs. The following includes patient education materials and information regarding your injury/illness. ALICIA BULLOCK has been given the following list of follow-up instructions, prescriptions, and patient education materials: Follow-up Instructions With: Address: When: JOB AGUILAR DO [address] [place] [address] Within 10 to 12 days Comments: orthopedic follow up With: Address: When: Andres Vizcarra [address] [place] [address], [address] [place] [address] Business (1) 10/26/2023 10:30 AM [...] 30 mg o (more content not included)... Normal Pharmacy Noteon 10-16-2023 Pharmacy Note I have [...] list against external fill history and available [employer] medication history to ensure accuracy. Reviewed regimen upon discharge which is appropriate and correct. Did not financial services counselor patient is going to custodial. [Electronically Signed on: 10/16/2023 11:12 EST] Andres Butler [Verified on: 10/16/2023 11:12 EST] Andres Butler Normal Sed Rateon 10-16-2023 Sed Rate 83 mm/hr High 0-20 Comment on above: Performed By: #### 2 202388, [id number] #### [facility] (DEFAULT) [address] [place] [address] .Auto Diff 1on 10-15-2023 Auto [place] % 9 % Normal 1-12 Comment on above: Performed By: #### 2 312453, [id number], 93080037, 4575501, 5662110 #### [facility] (DEFAULT) [address] [place] [address] Baso Abs# 0.0 x10 Normal 0.0-0.2 Comment on above: Performed By: #### 2 686914, [id number], 54436266, 3012829, 5317268 #### [facility] (DEFAULT) [address] [place] [address] Basophils/100 WBC (Bld) 0.2 % Normal 0.2-2.0 Comment on above: Performed By: #### 2 179950, [id number], 69279807, 8229805, 6089726 #### [facility] (DEFAULT) [address] [place] [address] Eos Abs# 0.1 x10 Normal 0.0-0.4 Comment on above: Performed By: #### 2 933720, 7063841298, 50459118, 2633496, 7563113 #### [facility] (DEFAULT) [address] [place] [address] Eosinophils/100 WBC (Bld) 0.8 % Low 0.9-4.0 Comment on above: Performed By: #### 2 579353, 7680986508, 71459911, 6805205, 2441895 #### [facility] (DEFAULT) [address] [place] [address] Lymph Abs# 1.1 x10 Low 1.3-2.9 Comment on above: Performed By: #### 2 048193, 2205353413, 34252245, 8663442, 9188767 #### [facility] (DEFAULT) [address] [place] [address] Lymphocytes/100 WBC (Bld) 13 % Low 14-48 Comment on above: Performed By: #### 2 346091, 4779512145, 21143681, 6630143, 9236726 #### [facility] (DEFAULT) [address] [place] [address] [place] Abs# 0.8 x10 Normal 0.0-0.8 Comment on above: Performed By: #### 2 633171, 1937622970, 02249625, 4518891, 6495596 #### [facility] (DEFAULT) [address] [place] [address] Neut Abs# 6.5 x10 Normal 1.5-9.2 Comment on above: Performed By: #### 2 741642, 6412837746, 23938151, 3581269, 1658315 #### [facility] (DEFAULT) [address] [place] [address] Neutrophils/100 WBC (Bld) 76 % Normal 44-88 Comment on above: Performed By: #### 2 361721, [id number], 01490693, 4859266, 2042334 #### [facility] (DEFAULT) [address] [place] [address] Standardon 10-15-2023 Breakpoint Chem Normal Comment on above: Performed By: #### 2 423198, 1085016307, 92878401, 6734216, 9172888 #### [facility] (DEFAULT) [address] [place] [address] 60485 eGFR Non AA >60 Invalid Interpretation Code Comment on above: Performed By: #### 2 541354, [id number], 03786469, 0112485, 5437701 #### [facility] (DEFAULT) [address] [place] [address] 68303 eGFR AA >60 Invalid Interpretation Code Comment on above: Performed By: #### 2 008581, [id number], 80565470, 4986661, 6055581 #### [facility] (DEFAULT) [address] [place] [address] 67982 Anion gap [Moles/Vol] 7.4 mmol/L Normal 5.0-19.0 Comment on above: Performed By: #### 2 404927, 1869698343, 22469132, 4255111, 7218308 #### [facility] (DEFAULT) [address] [place] [address] 06403 Calcium [Mass/Vol] 8.8 mg/dL Low 8.9-10.3 [facility] Comment on above: Performed By: #### 2 500255, 8024236087, 76227054, 9836073, 1708448 #### [facility] (DEFAULT) [address] [place] [address] 69112 Chloride [Moles/Vol] 106 mmol/L Normal 101-111 [facility] Comment on above: Performed By: #### 2 168968, 3233440833, 09472993, 9770646, 6640025 #### [facility] (DEFAULT) [address] [place] [address] 72191 CO2 [Moles/Vol] 26 mmol/L Normal 21-32 Comment on above: Performed By: #### 2 421346, 5720536273, 54594194, 1860929, 3162513 #### [facility] (DEFAULT) [address] [place] [address] 10237 Creatinine [Mass/Vol] 0.88 mg/dL Normal 0.60-1.30 Comment on above: Performed By: #### 2 712729, 9204549982, 57623536, 6936627, 0385855 #### [facility] (DEFAULT) [address] [place] [address] 83363 Glucose [Mass/Vol] 109.0 mg/dL Normal 74.0-118.[address] [facility] Comment on above: Performed By: #### 2 391816, 9600861101, 29483925, 1315793, 8891764 #### [facility] (DEFAULT) [address] [place] [address] Osmolality 273 mOsm/L Invalid Interpretation Code Comment on above: Performed By: #### 2 571129, 0523564683, 90851642, 9869883, 4280489 #### [facility] (DEFAULT) [address] [place] [address] 60978 Potassium [Moles/Vol] 4.4 mmol/L Normal 3.6-5.1 Comment on above: Performed By: #### 2 345457, 1833621365, 77227192, 7096622, 0993020 #### [facility] (DEFAULT) [address] [place] [address] 28978 Sodium [Moles/Vol] 135.0 mmol/L Low 136.0-144 . 0 Comment on above: Performed By: #### 2 064440, 9383817927, 28874953, 7667528, 5922533 #### [facility] (DEFAULT) [address] [place] [address] 84417 Urea nitrogen [Mass/Vol] 19 mg/dL Normal 8-26 Comment on above: Performed By: #### 2 999788, 7219240381, 75287195, 8858539, 0050527 #### [facility] (DEFAULT) [address] [place] [address] Urea nitrogen/Creatinine [Mass ratio] 21.5 mg/mg High 4.6-16.2 Comment on above: Performed By: #### 2 856729, 0093559762, 22186565, 4355501, 3106069 #### [facility] (DEFAULT) [address] [place] [address] CBC w/ Auto Diffon Erythrocyte distribution width (RBC) [Ratio] 15.3 % High 11.5-15.0 Comment on above: Performed By: #### 2 678758, 4906735105, 85212235, 6768452, 0633288 #### [facility] (DEFAULT) [address] [place] [address] Hematocrit (Bld) [Volume fraction] 29.8 % Low 33.7-40.4 Comment on above: Performed By: #### 2 505019, 9202917893, 30740567, 2066366, 0518955 #### [facility] (DEFAULT) [address] [place] [address] Hemoglobin (Bld) [Mass/Vol] 9.9 g/dL Low 11.3-15.9 Comment on above: Performed By: #### 2 704527, 9699923399, 11786327, 8000115, 0362727 #### [facility] (DEFAULT) [address] [place] [address] Man Diff? Auto Invalid Interpretation Code Comment on above: Performed By: #### 2 276788, 1317705298, 05174153, 0278248, 7068889 #### [facility] (DEFAULT) [address] [place] [address] 00738 MCH (RBC) [Entitic mass] 30 pg Normal 24-34 Comment on above: Performed By: #### 2 632679, 8262967852, 06172318, 6495763, 7655269 #### [facility] (DEFAULT) [address] [place] [address] MCHC (RBC) [Mass/Vol] 33 g/dL Normal 26-37 Comment on above: Performed By: #### 2 697517, 6236725134, 01293568, 1938438, 4178508 #### [facility] (DEFAULT) [address] [place] [address] 62604 MCV (RBC) [Entitic vol] 90 fL Normal 81-100 Comment on above: Performed By: #### 2 835332, 4877974296, 12064985, 3203130, 6599265 #### [facility] (DEFAULT) [address] [place] [address] Platelet 363 x10 Normal 138-427 Comment on above: Performed By: #### 2 406345, 0415495981, 26255884, 2825560, 8270652 #### [facility] (DEFAULT) [address] [place] [address] 19452 Platelet mean volume (Bld) [Entitic vol] 6.1 fL Low 6.3-10.2 Comment on above: Performed By: #### 2 368621, 4335583397, 04533368, 9229322, 0679333 #### [facility] (DEFAULT) [address] [place] [address] 30462 RBC 3.31 x10 Low 3.70-5.30 Comment on above: Performed By: #### 2 289743, 4588187774, 41433534, 5475767, 4883409 #### [facility] (DEFAULT) [address] [place] [address] 57143 WBC 8.5 x10 Normal 3.5-10.5 Comment on above: Performed By: #### 2 344419, 7130341874, 38863750, 7865953, 6664373 #### [facility] (DEFAULT) [address] [place] [address] 45906 CRPon 10-15-2023 CRP 2.1 mg/dL High <=0.5 Comment on above: Performed By: #### 2 909351, 6651823726, 80499893, 8982507, 4165752 ####[facility] (DEFAULT)[address] [place] [address] Nutrition Noteon 10-15-2023 Nutrition Note Per intake records, Pts avg 75+% of meals. Last BM 10/13. 10/15 labs reviewed, CRP/sed rate slowly improving. PICC line in place for IV atb. Discharge anticipated for tomorrow. Normal Sed Rateon 10-15-2023 Sed Rate 78 mm/hr High 0-20 Comment on above: Performed By: #### 2 336679, 3720804701, 13318539, 4116215, 9941317 ####[facility] (DEFAULT)[address] [place] [address] XR Chest 1 View Frontalon XR Chest [...] 10/15/23 1:04 pm Technologist: Peggy LOMELI Normal C Fluidon 10-14-2023 C Fluid Moderate growth [...] <=0.5 Verified Vanc S 0.5 Verified Normal Comment on above: Performed By: #### 2 390192, 5495723 #### [facility] (DEFAULT) [address] [place] [address] 73898 CRPon 10-14-2023 CRP 1.8 mg/dL High <=0.5 Comment on above: Performed By: #### 2 960203, 5865487 #### [facility] (DEFAULT) [address] [place] [address] 22527 Sed Rateon 10-14-2023 Sed Rate 74 mm/hr High 0-20 Comment on above: Performed By: #### 2 488350, 9924232 #### [facility] (DEFAULT) [address] [place] [address] .Auto Diff 1on 10-13-2023 Auto [place] % 5 % Normal 11-16 Comment on above: Performed By: #### 2 255259, 9380419 #### [facility] (DEFAULT) [address] [place] [address] Baso Abs# 0.0 x10 Normal 0.0-0.2 Comment on above: Performed By: #### 2 455331, 9521109 #### [facility] (DEFAULT) [address] [place] [address] 10864 Basophils/100 WBC (Bld) 0.2 % Normal 0.2-2.0 Comment on above: Performed By: #### 2 956415, 2429961 #### [facility] (DEFAULT) [address] [place] [address] 07414 Eos Abs# 0.0 x10 Normal 0.0-0.4 Comment on above: Performed By: #### 2 169122, 8525286 #### [facility] (DEFAULT) [address] [place] [address] 52231 Eosinophils/100 WBC (Bld) 0.1 % Low 0.9-4.0 Comment on above: Performed By: #### 2 505656, 1497625 #### [facility] (DEFAULT) [address] [place] [address] Lymph Abs# 1.0 x10 Low 1.3-2.9 Comment on above: Performed By: #### 2 740559, 1248064 #### [facility] (DEFAULT) [address] [place] [address] Lymphocytes/100 WBC (Bld) 9 % Low 14-48 Comment on above: Performed By: #### 2 318835, 2470912 #### [facility] (DEFAULT) [address] [place] [address] [place] Abs# 0.6 x10 Normal 0.0-0.8 Comment on above: Performed By: #### 2 271045, 4520523 #### [facility] (DEFAULT) [address] [place] [address] Neut Abs# 10.1 x10 High 1.5-9.2 Comment on above: Performed By: #### 2 411855, 9835234 #### [facility] (DEFAULT) [address] [place] [address] Neutrophils/100 WBC (Bld) 86 % Normal 44-88 Comment on above: Performed By: #### 2 377186, 0445517 #### [facility] (DEFAULT) [address] [place] [address] BMP Standardon 10-13-2023 Breakpoint Chem Normal Comment on above: Performed By: #### 2 436163, 8658415 #### [facility] (DEFAULT) [address] [place] [address] eGFR Non AA >60 Invalid Interpretation Code Comment on above: Performed By: #### 2 431237, 4775863 #### [facility] (DEFAULT) [address] [place] [address] 04295 eGFR AA >60 Invalid Interpretation Code Comment on above: Performed By: #### 2 682044, 5126340 #### [facility] (DEFAULT) [address] [place] [address] 88523 Calcium [Mass/Vol] 8.5 mg/dL Low 8.9-10.3 [facility] Comment on above: Performed By: #### 2 258784, 3283859 #### [facility] (DEFAULT) [address] [place] [address] 72512 Chloride [Moles/Vol] 105 mmol/L Normal 101-111 [facility] Comment on above: Performed By: #### 2 450573, 5028501 #### [facility] (DEFAULT) [address] [place] [address] 40949 CO2 [Moles/Vol] 24 mmol/L Normal 21-32 Comment on above: Performed By: #### 2 487160, 5352375 #### [facility] (DEFAULT) [address] [place] [address] 91351 Creatinine [Mass/Vol] 0.76 mg/dL Normal 0.60-1.30 Comment on above: Performed By: #### 2 396581, 1530033 #### [facility] (DEFAULT) [address] [place] [address] 27242 Glucose [Mass/Vol] 113.0 mg/dL Normal 74.0-118.[address] [facility] Comment on above: Performed By: #### 2 580315, 6632389 #### [facility] (DEFAULT) [address] [place] [address] 71440 Potassium [Moles/Vol] 4.9 mmol/L Normal 3.6-5.1 Comment on above: Performed By: #### 2 300487, 0554134 #### [facility] (DEFAULT) [address] [place] [address] 85890 Sodium [Moles/Vol] 135.0 mmol/L Low 136.0-144 . 0 Comment on above: Performed By: #### 2 775319, 9996249 #### [facility] (DEFAULT) [address] [place] [address] 09589 Urea nitrogen [Mass/Vol] 33 mg/dL High 8-26 Comment on above: Performed By: #### 2 811568, 1270465 #### [facility] (DEFAULT) [address] [place] [address] 70055 Anion gap [Moles/Vol] 10.9 mmol/L Normal 5.0-19.0 Comment on above: Performed By: #### 2 105026, 6301283 #### [facility] (DEFAULT) [address] [place] [address] 89982 Osmolality 278 mOsm/L Invalid Interpretation Code Comment on above: Performed By: #### 2 900405, 4228315 #### [facility] (DEFAULT) [address] [place] [address] 45577 Urea nitrogen/Creatinine [Mass ratio] 43.4 mg/mg High 4.6-16.2 Comment on above: Performed By: #### 2 416591, 9914252 #### [facility] (DEFAULT) [address] [place] [address] 12682 C Bloodon 10-13-2023 C Blood Bacillus species No ANICETO performed on this organism Results called to Alicia Leonard RN at 2S by CDD and results read back for confirmation on 10/12/2023 05:12:42 Normal Comment on above: Performed By: #### 2 993588, 9009675 #### [facility] (DEFAULT) [address] [place] [address] 87728 CBC w/ Auto Diffon 3 Erythrocyte distribution width (RBC) [Ratio] 15.0 % Normal 11.5-15.0 Comment on above: Performed By: #### 2 846010, 8955584 #### [facility] (DEFAULT) [address] [place] [address] 70998 Hematocrit (Bld) [Volume fraction] 26.7 % Low 33.7-40.4 Comment on above: Performed By: #### 2 581909, 5552423 #### [facility] (DEFAULT) [address] [place] [address] 76212 Hemoglobin (Bld) [Mass/Vol] 8.9 g/dL Low 11.3-15.9 Comment on above: Performed By: #### 2 479741, 5455660 #### [facility] (DEFAULT) [address] [place] [address] Man Diff? Auto Invalid Interpretation Code Comment on above: Performed By: #### 2 349977, 2518505 #### [facility] (DEFAULT) [address] [place] [address] 45317 MCH (RBC) [Entitic mass] 30 pg Normal 24-34 Comment on above: Performed By: #### 2 834481, 0935650 #### [facility] (DEFAULT) [address] [place] [address] MCHC (RBC) [Mass/Vol] 33 g/dL Normal 26-37 Comment on above: Performed By: #### 2 413078, 2632503 #### [facility] (DEFAULT) [address] [place] [address] MCV (RBC) [Entitic vol] 89 fL Normal 81-100 Comment on above: Performed By: #### 2 146132, 6162972 #### [facility] (DEFAULT) [address] [place] [address] Platelet 386 x10 Normal 138-427 Comment on above: Performed By: #### 2 362091, 3255208 #### [facility] (DEFAULT) [address] [place] [address] 67740 Platelet mean volume (Bld) [Entitic vol] 6.1 fL Low 6.3-10.2 Comment on above: Performed By: #### 2 522582, 5811576 #### [facility] (DEFAULT) [address] [place] [address] 36079 RBC 3.00 x10 Low 3.70-5.30 Comment on above: Performed By: #### 2 941714, 3312802 #### [facility] (DEFAULT) [address] [place] [address] 43689 WBC 11.8 x10 High 3.5-10.5 Comment on above: Performed By: #### 2 532088, 4337891 #### [facility] (DEFAULT) [address] [place] [address] 25233 CRPon 10-13-2023 CRP 3.2 mg/dL High <=0.5 Comment on above: Performed By: #### 2 882560, 9612378 #### [facility] (DEFAULT) [address] [place] [address] Sed Rateon 10-13-2023 Sed Rate 82 mm/hr High 0-20 Comment on above: Performed By: #### 2 315265, 2760571 #### [facility] (DEFAULT) [address] [place] [address] .Auto Diff 110-12-2023 Auto [place] % 6 % Normal 11-16 Comment on above: Performed By: #### 1 7866323, 3123045117, 1204841 ####[facility] (DEFAULT)[address] [place] [address] Baso Abs# 0.0 x10 Normal 0.0-0.2 Comment on above: Performed By: #### 1 9724515, 4152880723, 4214532 ####[facility] (DEFAULT)[address] [place] [address] Basophils/100 WBC (Bld) 0.1 % Low 0.2-2.0 Comment on above: Performed By: #### 1 3723312, 6084173764, 9534914 ####[facility] (DEFAULT)[address] [place] [address] Eos Abs# 0.0 x10 Normal 0.0-0.4 Comment on above: Performed By: #### 1 5308829, 3680005471, 2554881 ####[facility] (DEFAULT)[address] [place] [address] Eosinophils/100 WBC (Bld) 0.0 % Low 0.9-4.0 Comment on above: Performed By: #### 1 6164495, 4099826362, 5376394 ####[facility] (DEFAULT)[address] [place] [address] Lymph Abs# 0.7 x10 Low 1.3-2.9 Comment on above: Performed By: #### 1 0319729, 8621614486, 7008417 ####[facility] (DEFAULT)[address] [place] [address] Lymphocytes/100 WBC (Bld) 6 % Low 14-48 Comment on above: Performed By: #### 1 1740609, 8571091151, 4391212 ####[facility] (DEFAULT)[address] [place] [address] [place] Abs# 0.7 x10 Normal 0.0-0.8 Comment on above: Performed By: #### 1 9416870, 6680556034, 0144005 ####[facility] (DEFAULT)[address] [place] [address] Neut Abs# 10.3 x10 High 1.5-9.2 Comment on above: Performed By: #### 1 4101088, 1247128597, 0340495 ####[facility] (DEFAULT)[address] [place] [address] Neutrophils/100 WBC (Bld) 88 % Normal 44-88 Comment on above: Performed By: #### 1 5102742, 7629442225, 6492809 ####[facility] (DEFAULT)[address] [place] [address] CBC w/ Auto Diffon 3 Erythrocyte distribution width (RBC) [Ratio] 15.5 % High 11.5-15.0 Comment on above: Performed By: #### 1 9961291, 4630765323, 4131871 ####[facility] (DEFAULT)[address] [place] [address] Hematocrit (Bld) [Volume fraction] 29.6 % Low 33.7-40.4 Comment on above: Performed By: #### 1 1208157, 9332336381, 2270339 ####[facility] (DEFAULT)[address] [place] [address] Hemoglobin (Bld) [Mass/Vol] 10.1 g/dL Low 11.3-15.9 Comment on above: Performed By: #### 1 7120686, 9369847912, 9580323 ####[facility] (DEFAULT)[address] [place] [address] Man Diff? Auto Invalid Interpretation Code Comment on above: Performed By: #### 1 4446981, [id number], 4905609 ####[facility] (DEFAULT)[address] [place] [address] 16103 MCH (RBC) [Entitic mass] 30 pg Normal 24-34 Comment on above: Performed By: #### 1 0444816, [id number], 5689763 ####[facility] (DEFAULT)[address] [place] [address] 79915 MCHC (RBC) [Mass/Vol] 34 g/dL Normal 26-37 Comment on above: Performed By: #### 1 6865591, [id number], 2057470 ####[facility] (DEFAULT)[address] [place] [address] MCV (RBC) [Entitic vol] 88 fL Normal 81-100 Comment on above: Performed By: #### 1 [id number], [id number], [id number] ####[facility] (DEFAULT)[address] [place] [address] 11170 Platelet 434 x10 High 138-427 Comment on above: Performed By: #### 1 [id number], [id number], [id number] ####[facility] (DEFAULT)[address] [place] [address] 34571 Platelet mean volume (Bld) [Entitic vol] 6.2 fL Low 6.3-10.2 Comment on above: Performed By: #### 1 [id number], [id number], [id number] ####[facility] (DEFAULT)[address] [place] [address] 52596 RBC 3.38 x10 Low 3.70-5.30 Comment on above: Performed By: #### 1 [id number], [id number], [id number] ####[facility] (DEFAULT)[address] [place] [address] WBC 11.7 x10 High 3.5-10.5 Comment on above: Performed By: #### 1 [id number], [id number], [id number] ####[facility] (DEFAULT)[address] [place] [address] CMP Standardon 10-12-2023 eGFR Non AA 57 mL/min/1.73m2 Invalid Interpretation Code Comment on above: Performed By: #### 1 [id number], [id number], [id number] ####[facility] (DEFAULT)[address] [place] [address] eGFR AA >60 Invalid Interpretation Code Comment on above: Performed By: #### 1 [id number], [id number], [id number] ####[facility] (DEFAULT)[address] [place] [address] Albumin [Mass/Vol] 2.4 g/dL Low 3.5-5.0 [facility] Comment on above: Performed By: #### 1 [id number], [id number], [id number] ####[facility] (DEFAULT)[address] [place] [address] Albumin/Globulin [Mass ratio] 0.6 {ratio} Low 1.4-2.6 Comment on above: Performed By: #### 1 [id number], [id number], [id number] ####[facility] (DEFAULT)[address] [place] [address] Alk Phos 105 IU/L High 32-91 Comment on above: Performed By: #### 1 [id number], [id number], [id number] ####[facility] (DEFAULT)[address] [place] [address] ALT [Catalytic activity/Vol] 19.0 U/L Normal 14.0-54.0 Comment on above: Performed By: #### 1 [id number], [id number], [id number] ####[facility] (DEFAULT)[address] [place] [address] 29239 Anion gap [Moles/Vol] 14.7 mmol/L Normal 5.0-19.0 Comment on above: Performed By: #### 1 [id number], [id number], [id number] ####[facility] (DEFAULT)[address] [place] [address] 22822 AST [Catalytic activity/Vol] 17 U/L Normal 15-41 Comment on above: Performed By: #### 1 [id number], [id number], 1797369 ####[facility] (DEFAULT)[address] [place] [address] 85921 Bili Total 0.6 mg/dL Normal 0.3-1.2 Comment on above: Performed By: #### 1 9636021, 6424407257, 2907120 ####[facility] (DEFAULT)[address] [place] [address] 26373 Calcium [Mass/Vol] 8.8 mg/dL Low 8.9-10.3 [facility] Comment on above: Performed By: #### 1 2958077, 3846599301, 7955107 ####[facility] (DEFAULT)[address] [place] [address] 62390 Chloride [Moles/Vol] 103 mmol/L Normal 101-111 [facility] Comment on above: Performed By: #### 1 1618252, 5117945566, 3418555 ####[facility] (DEFAULT)[address] [place] [address] 14929 CO2 [Moles/Vol] 25 mmol/L Normal 21-32 Comment on above: Performed By: #### 1 9720044, 9410717601, 4839245 ####[facility] (DEFAULT)[address] [place] [address] 51412 Creatinine [Mass/Vol] 0.94 mg/dL Normal 0.60-1.30 Comment on above: Performed By: #### 1 0542881, 2312439200, 5397248 ####[facility] (DEFAULT)[address] [place] [address] 85213 Globulin (S) [Mass/Vol] 3.5 g/dL Normal 1.5-4.3 Comment on above: Performed By: #### 1 0490160, 1486447709, 8601654 ####[facility] (DEFAULT)[address] [place] [address] 46391 Glucose [Mass/Vol] 161.0 mg/dL High 74.0-118.[address] [facility] Comment on above: Performed By: #### 1 1003321, 4154309959, 0726335 ####[facility] (DEFAULT)[address] [place] [address] 96980 Osmolality 286 mOsm/L Invalid Interpretation Code Comment on above: Performed By: #### 1 3552668, 6698842897, 7923851 ####[facility] (DEFAULT)[address] [place] [address] 46270 Potassium [Moles/Vol] 4.7 mmol/L Normal 3.6-5.1 Comment on above: Performed By: #### 1 8890880, 2282649574, 8725631 ####[facility] (DEFAULT)[address] [place] [address] 62619 Protein [Mass/Vol] 5.9 g/dL Low 6.5-8.1 [facility] Comment on above: Performed By: #### 1 8307934, 0230949483, 7905547 ####[facility] (DEFAULT)[address] [place] [address] 86244 Sodium [Moles/Vol] 138.0 mmol/L Normal 136.0-144 . 0 Comment on above: Performed By: #### 1 9151092, 3545253890, 4618697 ####[facility] (DEFAULT)[address] [place] [address] 35136 Urea nitrogen [Mass/Vol] 32 mg/dL High 8-26 Comment on above: Performed By: #### 1 2190228, 6932797882, 0121373 ####[facility] (DEFAULT)[address] [place] [address] 73710 Urea nitrogen/Creatinine [Mass ratio] 34.0 mg/mg High 4.6-16.2 Comment on above: Performed By: #### 1 4643477, 4560873814, 7885603 ####[facility] (DEFAULT)[address] [place] [address] 68560 CRPon 10-12-2023 CRP 7.2 mg/dL High <=0.5 Comment on above: Performed By: #### 2 839119, 4092111 #### [facility] (DEFAULT) [address] [place], [place] [address] Consent Formson 10-12-2023 Consent Forms [id number] [facility] Nutrition Noteon 10-12-2023 Nutrition Note Pt admitted w/ Rt kn ee pain, recent washout. CT scan noting septic arthritis, IV atb initiated. Pt placed on a Regular diet, so far eating 100%. 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 No chewing/swallowing problems identified. Labs reviewed [...] taking extra protein at home. To follow. [facility] Pharmacy Noteon 10-12-2023 Pharmacy Note This [...] [Electronically Signed on: 10/12/2023 10:24 EST] Andrés rGover [Verified on: 10/12/2023 10:24 EST] Andrés Grover Normal Procalcitoninon 10-12-2023 Procalcitonin 0.109 ng/mL Low 0.500-1.00 0 Comment on above: Performed By: #### 7 [id number] #### [facility] (DEFAULT) [address] [place] [address] Sed Rateon 10-12-2023 Sed Rate 74 mm/hr High 0-20 Comment on above: Performed By: #### 2 354173, 6319469 #### [facility] (DEFAULT) [address] [place] [address] 53856 US Echocardiogram Completeon 10-12-2023 US Echocardiogram Complete [...] Junction2.89 cm F: 2.3 - 2.9 LV Nhno869.22 g LVOT Diameter 2.09 cm IVC1.25 (<= 2.1cm) M-Mode Dimensions Aortic Root3.67 cm F: < 3.8MV EPSS0.30 ( < 0.7 cm) Aortic Cusp Exc2.00 (1.5 - 2.6 cm)TAPSE 2.0 (>1.7) Left Atrium3.88 cm F: 2.7 - 3.8 LV Volume - Method of Disks (Trjuillo's) Single Plane 2D LV VolumesBiplane 2D LV [...] Single Plane 4 CH 25.69 mLBiplane LA Bauwab33.33 mL Single Plane 2 CH67.19 mLLA ESV Index29.65 mL/m2 Right Atrium Area Systole RA Systolic Area A4C9.10 cm2RA Systolic Vol A4C19.30 mL Aortic Valve AoV Peak Velocity1.30 m/sLVOT Peak Velocity1.04 m/s AO Mean Velocity0.86 m/sLVOT Mean Velocity0.61 m/s AO Peak PG6.80 mmHgLVOT Peak PG4.31 mmHg AO Mean PG3.48 mmHgLVOT Mean PG1.86 mmHg AO V2 VTI22.79 cmLVOT V1 VTI20.10 cm ESTUARDO (Vmax)2.73 mk8BSZJ Area 3.43 cm2 ESTUARDO (VTI)3.03 cm2SV (LVOT) 68.96 mL Indexed ESTUARDO (VTI)1.85 cm2/m2AI [place] 2.40 m/s2 AI JIZ778.11 ms Mitral Valve MV Max Qksopmam752.09 m/sMV PHT58.48 ms MV E Max Velocity0.55 m/sMVA (PHT)3.76 cm2 MV A Max Velocity0.67 m/sMR GKX332.58 cm E/A Ratio0.8MR Peak Velocity5.74 m/s MV Decel. Fwxe618.67 ms TDI Med e' Velocity5.08 cm/sMV E / Medial e' 10.72 Lat e' Velocity6.45 cm/sMV E / Lateral e' 8.45 TV S'16.13 cm/s Pulmonary Valve PV Peak Velocity0.78 m/sPV Peak PG2.43 mmHg TN End Diastolic Carlos.62.56 m/s PV Mean PG1.46 mmHg Tricuspid Valve TR Peak Velocity3.10 m/sRAP Estimate3.00 mmHg TR Peak PG38.55 ouCqHOJT85.55 mmHg Final Signed (Electronic Signature): Marquis Pulido MD 10/12/23 3:45 pm Technologist: ERA [facility] XR Chest 1 View Frontalon XR [...] MD 10/12/23 9:27 am Technologist: SANGEETA SIMPSON [facility] .Auto Diff 10-11-2023 Auto [place] % 7 % Normal 11-16 Comment on above: Performed By: #### 2 389954, 1865592354, 00067067, 1410993134, 0492536593, 0922191247, 0364046515, 1284615 ####[facility] (DEFAULT)[address] [place] [address] 92096 Baso Abs# 0.1 x10 Normal 0.0-0.2 Comment on above: Performed By: #### 2 765915, 8736557738, 31662219, 4488192604, 9842934972, 6099283025, 8378567375, 3775925 ####[facility] (DEFAULT)[address] [place] [address] 54578 Basophils/100 WBC (Bld) 0.4 % Normal 0.2-2.0 Comment on above: Performed By: #### 2 561244, 7997127487, 90167185, 4806080250, 7605389309, 3425869919, 8709036314, 6989988 ####[facility] (DEFAULT)[address] [place] [address] 00898 Eos Abs# 0.0 x10 Normal 0.0-0.4 Comment on above: Performed By: #### 2 994183, 0083211814, 71541456, 7717286354, 4614208365, 5625472991, 7245129435, 0087679 ####[facility] (DEFAULT)[address] [place] [address] 27438 Eosinophils/100 WBC (Bld) 0.2 % Low 0.9-4.0 Comment on above: Performed By: #### 2 314279, 8510556041, 42880037, 2124851979, 9915294447, 5440031847, 0604523776, 0855036 ####[facility] (DEFAULT)[address] [place] [address] 42347 Lymph Abs# 1.2 x10 Low 1.3-2.9 Comment on above: Performed By: #### 2 327434, 0965177745, 12566641, 3666848124, 0036368407, 0665685449, 1265021141, 0838525 ####[facility] (DEFAULT)[address] [place] [address] 06585 Lymphocytes/100 WBC (Bld) 8 % Low 14-48 Comment on above: Performed By: #### 2 709668, 4823634234, 54368941, 9651168982, 5530935464, 2973474524, 4168506047, 3867680 ####[facility] (DEFAULT)[address] [place] [address] 04394 [place] Abs# 1.1 x10 High 0.0-0.8 Comment on above: Performed By: #### 2 689414, 2977254292, 31617633, 2586845418, 1399712118, 7294992348, 9175824191, 9131946 ####[facility] (DEFAULT)[address] [place] [address] 76819 Neut Abs# 13.6 x10 High 1.5-9.2 Comment on above: Performed By: #### 2 084780, 7089247322, 23972407, 6493907509, 4620409375, 8466542205, 0020674673, 1112608 ####[facility] (DEFAULT)[address] [place] [address] Neutrophils/100 WBC (Bld) 85 % Normal 44-88 Comment on above: Performed By: #### 2 710970, 2497503920, 85918113, 3712831801, 6137309949, 9297108340, 8428582798, 9131827 ####[facility] (DEFAULT)[address] [place] [address] Anesthesia Noteon 10-11-2023 Anesthesia Note Patient: ALICIA BULLOCK Age: 83 years Sex: FEMALE : [...] on: 10/11/2023 13:00 EST] Sheryl Dennis DO Normal Anesthesia Note Patient: ALICIA BULLOCK Age: 83 years Sex: FEMALE : [...] All Problems HTN (hypertension) / SNOMED CT 4522643220 / Confirmed Hypothyroidism / SNOMED CT 93010514 / Confirmed Histories Family History: No family history items have been selected or recorded. Procedure history: Appendectomy (370915842). History of total hysterectomy (7141132779). Knee (211600877). Comments: 10/11/2023 7:23 EST - Halblaub, Sidsel RN total left Plantar fasciitis (844035042). Comments: 10/11/2023 7:26 EST - Radha Seo RN left Cholecystectomy (32485741). Metatarsal (01756160). Comments: 10/11/2023 7:25 EST - Radha Seo RN right foot Social History Electronic Cigarette/Vaping [...] (OCT 11:) Resp Rate 18 br/min (OCT 11) SBP H 144 mmHg (OCT 11:) DBP 73 mmHg (OCT 11) Weight 60.78 kg (OCT 11) General: Alert and oriented, No acute distress. Airway: Mallampati classification: II (soft palate, fauces, uvula visible). Temporomandibular joint mobility: Good. Mouth: Dentures ( Upper dentures, Partial plate ), Teeth ( Missing ). Neck: Full range of motion. Respiratory: Lungs are clear to auscultation. Cardiovascular: Normal rate, Regular rhythm. Neurologic: Alert, Oriented. Review / Management Laboratory Results Plan [place] [employer]#(ASA) physical status classification: Class [...] on: 10/11/2023 09:23 EST] Sheryl Dennis DO Normal BF Cell [place]nton 10-11-2023 Appear BF Cloudy [facility] Comment on above: Order Comment: right knee fluid Performed By: #### 6 829725 #### [facility] (DEFAULT) [address] [place] [address] 92627 Cell Cnt BF Type Synovial Fl [facility] Comment on above: Order Comment: right knee fluid Performed By: #### 6 826034 #### [facility] (DEFAULT) [address] [place] [address] 44344 Color BF Red [facility] Comment on above: Order Comment: right knee fluid Performed By: #### 6 263597 #### [facility] (DEFAULT) [address] [place] [address] 85684 RBC BF 570869 Invalid Interpretation Code Comment on above: Order Comment: right knee fluid Performed By: #### 6 431089 #### [facility] (DEFAULT) [address] [place] [address] [place] [address] Invalid Interpretation Code Comment on above: Order Comment: right knee fluid Performed By: #### 6 731172 #### [facility] (DEFAULT) [address] [place] [address] 04957 BMP Standardon 10-11-2023 Breakpoint Chem [facility] Comment on above: Performed By: #### 2 040843, 0302659510, 67095544, 8580773848, 1872498110, 8471953676, 3109522404, 3528592 ####[facility] (DEFAULT)[address] [place] [address] 37708 eGFR Non AA 57 mL/min/1.73m2 Invalid Interpretation Code Comment on above: Performed By: #### 2 827736, 3542688227, 14260827, 0322227651, 9581837671, 1709033183, 0586921070, 4567262 ####[facility] (DEFAULT)[address] [place] [address] 30352 eGFR AA >60 Invalid Interpretation Code Comment on above: Performed By: #### 2 263490, 5077445850, 25437602, 6590190103, 0114924287, 1749144338, 7702326527, 2275965 ####[facility] (DEFAULT)[address] [place] [address] 26862 Anion gap [Moles/Vol] 13.6 mmol/L Normal 5.0-19.0 Comment on above: Performed By: #### 2 914080, 6763666558, 14773419, 4765894599, 6331370371, 4412821767, 7474957836, 0403005 ####[facility] (DEFAULT)[address] [place] [address] 76731 Calcium [Mass/Vol] 9.6 mg/dL Normal 8.9-10.3 [facility] Comment on above: Performed By: #### 2 578262, 2396775042, 74338977, 8772929273, 2046150606, 5659251202, 0845513702, 7408682 ####[facility] (DEFAULT)[address] [place] [address] 61538 Chloride [Moles/Vol] 102 mmol/L Normal 101-111 [facility] Comment on above: Performed By: #### 2 312922, 1794275340, 19129662, 4485143249, 9022214283, 3529054999, 1453522610, 7691231 ####[facility] (DEFAULT)[address] [place] [address] 59230 CO2 [Moles/Vol] 25 mmol/L Normal 21-32 Comment on above: Performed By: #### 2 816273, 0719644162, 88163211, 4318017774, 1904560814, 9951307416, 3557262754, 1543726 ####[facility] (DEFAULT)[address] [place] [address] 22450 Creatinine [Mass/Vol] 0.93 mg/dL Normal 0.60-1.30 Comment on above: Performed By: #### 2 205018, 8775473709, 95427839, 3425253794, 2879862562, 5515491708, 7833116216, 0674958 ####[facility] (DEFAULT)[address] [place] [address] 23479 Glucose [Mass/Vol] 114.0 mg/dL Normal 74.0-118.[address] [facility] Comment on above: Performed By: #### 2 481693, 5352802541, 41709070, 0797839348, 8219819387, 3050808558, 3512508613, 0168656 ####[facility] (DEFAULT)[address] [place] [address] 44573 Osmolality 279 mOsm/L Invalid Interpretation Code Comment on above: Performed By: #### 2 433956, 9401998573, 22472891, 1236281834, 9334932533, 4063521390, 1849825929, 7863146 ####[facility] (DEFAULT)[address] [place] [address] 86674 Potassium [Moles/Vol] 4.6 mmol/L Normal 3.6-5.1 Comment on above: Performed By: #### 2 104540, 7658861552, 85297029, 7108903802, 2159267506, 3624796327, 6716519085, 3126079 ####[facility] (DEFAULT)[address] [place] [address] 59678 Sodium [Moles/Vol] 136.0 mmol/L Normal 136.0-144 . 0 Comment on above: Performed By: #### 2 504558, 5941902235, 21227632, 8907125480, 2530701456, 7606862520, 9212100792, 8871281 ####[facility] (DEFAULT)[address] [place] [address] 99953 Urea nitrogen [Mass/Vol] 30 mg/dL High 06-30 Comment on above: Performed By: #### 2 499519, 7008547225, 68561849, 4479403466, 1017498685, 6850748224, 6562112480, 9359121 ####[facility] (DEFAULT)[address] [place] [address] Urea nitrogen/Creatinine [Mass ratio] 32.2 mg/mg High 4.6-16.2 Comment on above: Performed By: #### 2 371970, 0733228346, 35327523, 5430446154, 0183000187, 9420292387, 9948594426, 4280800 ####[facility] (DEFAULT)[address] [place] [address] Body Fluid Diffon 10-11-2023 BF Bands % 2 Invalid Interpretation Code Comment on above: Order Comment: Right knee fluidVerbal order per Kelly Long Performed By: #### 2 [id number] ####[facility] (DEFAULT)[address] [place] [address] BF Baso % 0 Invalid Interpretation Code Comment on above: Order Comment: Right knee fluidVerbal order per Kelly Long Performed By: #### 2 [id number] ####[facility] (DEFAULT)[address] [place] [address] BF Eos % 0 Invalid Interpretation Code Comment on above: Order Comment: Right knee fluidVerbal order per Kelly Long Performed By: #### 2 948551833 ####[facility] (DEFAULT)[address] [place] [address] BF Lymph % 5 Invalid Interpretation Code Comment on above: Order Comment: Right knee fluidVerbal order per Kelly Long Performed By: #### 2 258625832 ####[facility] (DEFAULT)[address] [place] [address] BF [place] % 0 Invalid Interpretation Code Comment on above: Order Comment: Right knee fluidVerbal order per Kelly Long Performed By: #### 2 217112975 ####[facility] (DEFAULT)[address] [place] [address] 91092 BF Segs % 93 Invalid Interpretation Code Comment on above: Order Comment: Right knee fluidVerbal order per Kelly Long Performed By: #### 2 218347940 ####[facility] (DEFAULT)[address] [place] [address] CBC w/ Auto Diffon 3 Erythrocyte distribution width (RBC) [Ratio] 15.3 % High 11.5-15.0 Comment on above: Performed By: #### 2 113901, 6119292845, 16442197, 3563705346, 9922508989, 4634545194, 7445328809, 1690009 ####[facility] (DEFAULT)[address] [place] [address] Hematocrit (Bld) [Volume fraction] 36.1 % Normal 33.7-40.4 Comment on above: Performed By: #### 2 622422, 3320833029, 08569568, 0274987173, 2016178569, 2850589566, 0595231336, 0894590 ####[facility] (DEFAULT)[address] [place] [address] Hemoglobin (Bld) [Mass/Vol] 11.8 g/dL Normal 11.3-15.9 Comment on above: Performed By: #### 2 721593, 2708231757, 59188378, 7193183329, 8587947305, 3012641854, 4810201796, 7047790 ####[facility] (DEFAULT)[address] [place] [address] 75689 Man Diff? Auto Invalid Interpretation Code Comment on above: Performed By: #### 2 374155, 2982642757, 63643389, 7753012998, 3386781445, 7975813290, 2245378565, 3218800 ####[facility] (DEFAULT)[address] [place] [address] MCH (RBC) [Entitic mass] 29 pg Normal 24-34 Comment on above: Performed By: #### 2 376168, 1454297971, 01678670, 5668379354, 7181298762, 0434514892, 6402076168, 2197783 ####[facility] (DEFAULT)[address] [place] [address] MCHC (RBC) [Mass/Vol] 33 g/dL Normal 26-37 Comment on above: Performed By: #### 2 263649, 9558664816, 00148551, 5104037970, 8128968827, 3114710912, 3957188035, 2522067 ####[facility] (DEFAULT)[address] [place] [address] MCV (RBC) [Entitic vol] 89 fL Normal 81-100 Comment on above: Performed By: #### 2 604155, 7750452899, 67601136, 6054889366, 9967614706, 7876217248, 4261621103, 8245377 ####[facility] (DEFAULT)[address] [place] [address] Platelet 492 x10 High 138-427 Comment on above: Performed By: #### 2 052216, 6966151480, 91952709, 5334035669, 4302219013, 4524634246, 7105002689, 0854082 ####[facility] (DEFAULT)[address] [place] [address] Platelet mean volume (Bld) [Entitic vol] 6.2 fL Low 6.3-10.2 Comment on above: Performed By: #### 2 447825, 3160849382, 23063333, 1755522132, 8050690274, 6742981061, 9476445448, 3636930 ####[facility] (DEFAULT)[address] [place] [address] RBC 4.05 x10 Normal 3.70-5.30 Comment on above: Performed By: #### 2 196313, 8485912177, 37454968, 0525738640, 5386330563, 1586753811, 9269706207, 6230350 ####[facility] (DEFAULT)[address] [place] [address] WBC 16.0 x10 High 3.5-10.5 Comment on above: Result Comment: Slid e Reviewed Performed By: #### 2 612394, 2656842132, 04420957, 7751973906, 9527711585, 8706807294, 0239620403, 0897688 ####[facility] (DEFAULT)[address] [place] [address] CRPon 10-11-2023 CRP 6.1 mg/dL High <=0.5 Comment on above: Performed By: #### 2 406060 ####[facility] (DEFAULT)[address] [place] [address] CT Lower Extremity w/ Contra st Righton [...] MD 10/11/23 4:31 pm Technologist: Jeanette LUKE Extra SSTon 10-11-2023 Tube Collected Yes Invalid Interpretation Code Comment on above: Performed By: #### 2 571274, 8315300323, 19683215, 4034252177, 1191519574, 1905555920, 8340039462, 0446678 ####[facility] (DEFAULT)[address] [place] [address] MAGR Intraoperative Recordon 10-11-2023 MAGR Intraoperative Record MAGR Intra-Op Record Summary Primary Physician: JOB AGUILAR DO Finalized Date/Time: 10/11/23 14:40:54 Pt. Name: ALICIA BULLOCK ESTER Cisneros./Sex: 1940 FEMALE Med Rec #: [id number] Physician: JOB AGUILAR DO Financial #: [id number] Pt. Type: I Room/Bed: [facility] Admit/Disch: 10/11/23 06:57:39 - Institution: Case Times [...] Role Performed Surgeon - Primary Anesthesiologist of Foam Charger Record Time In 10/11/23 11:40:00 10/11/23 11:40:00 10/11/23 11:40:00 Time Out 10/11/23 12:48:00 10/11/23 12:53:00 10/11/23 12:53:00 Procedure Arthroscopy Knee(Right) Arthroscopy Knee(Right) Arthroscopy Knee(Right) Last Modified By: Sandra Shepard RN, Barbara RN Long, Barbara RN 10/11/23 12:55:35 10/11/23 12:55:35 10/11/23 12:55:35 Entry 4 Entry 5 Case Attendee Gloria Saldaña CST, CST, Lauren M CSFA CSFA Role Performed Scrub Personnel Special Events Coordinator Time In 10/11/23 11:40:00 10/11/23 11:40:00 Time [...] Sheryl Dennis DO, Sandra Shepard RN, Piotr MODELING AGENT, Gloria MODELING AGENT CSFA, Rina Muñoz CSFA Last Modified By: [...] (O.80) Ye (more content not included)... [facility] 3 [facility] PACU Record [facility] PACU Record [facility] Physician: JOB AGUILAR DO Finalized Date/Time: 10/11/23 13:56:49 Pt. Name: MILANAALICIA/Sex: 1940 FEMALE Med Rec #: [id number] Physician: JOB AGUILAR DO Financial #: [id number] Pt. Type: D Room/Bed: [facility]/1 Admit/Disch: 10/11/23 06:57:39 - Institution: PACU Case Times MAGR Entry 1 In PACU I 10/11/23 12:55:00 Discharge from PACU 10/11/23 13:40:00 I Last Modified By: Radha Seo RN 10/11/23 13:56:45 Finalized By: Radha Seo RN Document Signatures Signed By: Radha Seo RN 10/11/23 13:56 [facility] MAGR Preoperative Recordon 1 12-12-2022 MAGR Preoperative Record MAGR Pre-Op Record Summary Primary Physician: JOB AGUILAR DO Finalized Date/Time: 10/11/23 12:17:03 Pt. Name: ALICIA BULLOCK /Sex: 1940 FEMALE Med Rec #: [id number] Physician: JOB AGUILAR DO Financial #: [id number] Pt. Type: D Room/Bed: / Admit/Disch: 10/11/23 [...] Signed By: Sandra Shepard RN 10/11/23 12:17 [facility] Pharmacy Noteon 10-11-2023 Pharmacy Note The following medica tions(s) has been reviewed for renal dose adjustment per P &T protocol based on the patient's current creatinine clearance: Medication: Enoxaparin 30mg q12h Estimated CrCl: 36.58 ml/min _ Action: No change required Changes Made: [Electronically Signed on: 10/11/2023 14:07 EST] Andres Butler [Verified on: 10/11/2023 14:07 EST] Andres Butler The following medications(s) has been reviewed for renal dose adjustment per P &T protocol based on the patient's current creatinine clearance: Medication: Enoxaparin 40mg QD Estimated CrCl: 44.77 ml/min _ Action: No change required Changes Made: [Electronically Signed on: 10/13/2023 09:39 EST] Andres Butler Normal Sed Rateon 10-11-2023 Sed Rate 80 mm/hr High 0-20 Comment on above: Performed By: #### 2 [id number], [id number], [id number], [id number], [id number], [id number], [id number] ####[facility] (DEFAULT)[address] [place] [address] CREATININEon 04-04-2023 Creatinine [Mass/Vol] 1.25 mg/dL Critically high 0.55-1.02 [facility] Comment on above: Performed By: ###Ara GORDON #### [facility] [address] [place] [id number] Lolita Alvarado EGFR-AF MOROCCAN 49 mL/min/1.73m2 Critically low >=60 [facility] Comment on above: Performed By: #### Jose D GORDON #### [facility] [address] [place], [place] [address] Dr. Lolita Alvarado EGFR-NON AF [place]AN 41 mL/min/1.73m2 Critically low >=60 [facility] Comment on above: Performed By: #### C HEIDI #### [facility] [address] [place], [place] [address] CHEST W CONon [...] RIGO WHITTAKER Date: 2023-04-04 16:18 Normal [facility] CT CHEST W CONon 12-26-2022 CT [...] by: RIGO WHITTAKER Date: 2022-12-26 09:16 Normal [facility] CREATININEon 12-23-2022 Creatinine [Mass/Vol] 0.85 mg/dL Normal 0.55-1.02 [facility] Comment on above: Performed By: #### C HEIDI #### [facility] [address] [address] [address] Lolita Alvarado EGFR-AF MOROCCAN >60 Normal >=60 [facility] Comment on above: Performed By: #### C HEIDI #### [facility] [address] [address] [address] Lolita Alvarado EGFR-NON AF MOROCCAN >60 Normal >=60 [facility] Comment on above: Performed By: #### C HEIDI #### [facility] [address] [address] [address] Lolita Alvarado Glucose Glucometer (dC) [M ass/Vol]Ordered By: Santiago Patricio on 11-01-2022 Glucose [Mass/Vol] 97 mg/dL [facility] Comment on above: Random Glucose Refer ence Range is dependent on time and content of last meal. Glucose of more than 200 mg/dL in a nonstressed, ambulatory subject supports the diagnosis of Diabetes Mellitus. Glucose Poct Glucometerson 1 01-02-2022 Glucose [Mass/Vol] 97 mg/dL Normal [facility] Comment on above: Result Comment: [facility] Glucose Reference Range is dependent on time and content of last meal. Glucose of more than 200 mg/dL in a nonstressed, ambulatory subject supports the diagnosis of Diabetes Mellitus. PERFORMED BY: [place] [address] PATHOLOGIST SUPERVISOR LIQUEFACTION NEW MEDEIROS M.D. Performed By: #### G LULS #### Point of Care testing , PET tumor init tx strat sb-m ton 11-01-2022 PET tumor init tx strat sb-mt [facility] [place] [address] [place], [place] [id number] Nuclear Medicine Report Signed Patient: Alicia Bullock MR#: [id number] : 1940 Acct:[id number] Age/Sex: 82 / F ADM Date: 11/01/22 Loc: Room: Type: [facility] Attending Dr: Santiago Patricio MD Copies to: [...] Candi Leigh M.D.11/01/2022 1:32 PM Dictation Location: [place] [address] Transcribed By: [facility] 11/01/22 1332 Dictated By: Candi Leigh MD 11/01/22 1300 Signed By: 11/01/22 1332 [facility] CT CHEST W CONon 10-24-2022 [...] RIGO WHITTAKER Date: 2022-10-23 22:21 Normal [facility] CREATININEon 10-23-2022 Creatinine [Mass/Vol] 1.08 mg/dL Critically high 0.55-1.02 [facility] Comment on above: Performed By: #### C HEIDI #### [facility] [address] [address] [address] Lolita Alvarado EGFR-AF MOROCCAN 59 mL/min/1.73m2 Critically low >=60 [facility] Comment on above: Performed By: #### C HEIDI #### [facility] [address] [address] [address] Lolita Alvarado EGFR-NON AF MOROCCAN 48 mL/min/1.73m2 Critically low >=60 [facility] Comment on above: Performed By: #### C HEIDI #### [facility] [address] [place] [address] TSPINE WO CONon [...] spine. 3. No acute abnormality. Normal [facility] MRI LSCEDAR RAPIDS WO CONon 09-13-20 MRI [facility] WO CON EXAMINATION: MRI LS INE WO CON HISTORY: Lumbar radiculopathy COMPARISON: [...] SHERYL SRINIVASAN Date: 2022-09-13 08:21 Normal [facility] US NOLBERTO DOP LEG RTon 08-10-20 [...] BRAD GONZALEZ Date: 2022-08-10 15:05 Normal [facility] CBC AUTO DIFFon 08-02-2022 BASO # 0.0 103/ul Normal 0.0-0.1 [facility] Comment on above: Performed By: #### C BC #### [facility] [address] [place] [address] Dr. Lolita Alvarado Basophils/100 WBC (Bld) 0.3 % Normal 0.2-2.0 [facility] Comment on above: Performed By: #### C BC #### [facility] [address] [address] [address] Lolita Alvarado EO # 0.0 103/ul Normal 0.0-0.7 [facility] Comment on above: Performed By: #### C BC #### [facility] [address] [place] [address] Dr. Lolita Alvarado Eosinophils/100 WBC (Bld) 0.3 % Critically low 0.9-7.0 [facility] Comment on above: Performed By: #### C BC #### [facility] [address] [place] [address] Dr. Lolita Alvarado Erythrocyte distribution width (RBC) [Ratio] 13.3 % Normal 11.0-15.0 [facility] Comment on above: Performed By: #### C BC #### [facility] [address] [place] [address] Dr. Lolita Alvarado Hematocrit (Bld) [Volume fraction] 34.6 % Critically low 36.0-48.0 [facility] Comment on above: Performed By: #### C BC #### [facility] [address] [place] [address] Dr. Lolita Alvarado Hemoglobin (Bld) [Mass/Vol] 11.4 g/dL Critically low 12.0-16.0 [facility] Comment on above: Performed By: #### C BC #### [facility] [address] [place] [address] Dr. Lolita Alvarado IG # 0.04 10e3/ul Critically high 0.00-0.03 [facility] Comment on above: Performed By: #### C BC #### [facility] [address] [place] [address] Dr. Lolita Alvarado IG % 1.0 % Critically high 0.0-0.5 [facility] Comment on above: Performed By: #### C BC #### [facility] [address] [place] [address] Dr. Lolita Alvarado LYMPH # 1.2 103/ul Normal 1.2-3.8 [facility] Comment on above: Performed By: #### C BC #### [facility] [address] [place] [address] Dr. Lolita Alvarado Lymphocytes/100 WBC (Bld) 30.9 % Normal 20.5-60.0 [facility] Comment on above: Performed By: #### C BC #### [facility] [address] [place] [address] Dr. Lolita Alvarado MANUAL DIFF REQ NO Normal [facility] Comment on above: Performed By: #### C BC #### [facility] [address] [address] [address] Lolita Alvarado MCH (RBC) [Entitic mass] 31.0 pg Normal 26.7-34.0 [facility] Comment on above: Performed By: #### C BC #### [facility] [address] [place] [address] Dr. Lolita Alvarado MCHC (RBC) [Mass/Vol] 32.9 g/dL Normal 29.9-35.2 [facility] Comment on above: Performed By: #### C BC #### [facility] [address] [place] [address] Dr. Lolita Alvarado MCV (RBC) [Entitic vol] 94.0 fL Normal 81.0-99.0 [facility] Comment on above: Performed By: #### C BC #### [facility] [address] [place] [address] Dr. Lolita Alvarado MONO # 0.4 103/ul Normal 0.3-0.8 [facility] Comment on above: Performed By: #### C BC #### [facility] [address] [place] [address] Dr. Lolita Alvarado Monocytes/100 WBC (Bld) 10.6 % Normal 1.7-12.0 [facility] Comment on above: Performed By: #### C BC #### [facility] [address] [place] [address] Dr. Lolita Alvarado NEUT # 2.2 103/ul Normal 1.4-6.5 [facility] Comment on above: Performed By: #### C BC #### [facility] [address] [place] [address] Dr. Lolita Alvarado Neutrophils/100 WBC (Bld) 56.9 % Normal 43.0-75.0 [facility] Comment on above: Performed By: #### C BC #### [facility] [address] [place] [address] Dr. Lolita Alvarado Platelet mean volume (Bld) [Entitic vol] 8.1 fL Critically low 9.5-13.5 [facility] Comment on above: Performed By: #### C BC #### [facility] [address] [address] [address] Lolita Alvarado PLT 226 103/ul Normal 150-450 [facility] Comment on above: Performed By: #### C BC #### [facility] [address] [address] [address] Lolita Alvarado RBC 3.68 106/ul Critically low 4.20-5.40 [facility] Comment on above: Performed By: #### C BC #### [facility] [address] [address] [address] Lolita Alvarado WBC 3.9 103/ul Critically low 4.0-11.0 [facility] Comment on above: Performed By: #### C BC #### [facility] [address] [place] [address] Dr. Lolita Alvarado [facility] SARS-CoV-2 (COVID-19) RNA EDWIN+probe Ql (Unsp spec) Detected Critically abnormal NOT DETECTED [facility] Comment on above: Result Comment: This test is not yet approved or cleared by the [place] FDA. When there are no FDA-approved or cleared tests available, and other criteria are met, FDA can make tests available under an emergency access mechanism called an Emergency Use Authorization (EUA). The EUA for this test is supported by the Utilization Supervisor of Health and Human Service's (HHS's) declaration [...] used). Performed By: #### C BC #### [facility] [address] [place] [address] Dr. Lolita Alvarado CBC AUTO DIFFon 06-02-2022 BASO # 0.0 103/ul Normal 0.0-0.1 [facility] Comment on above: Performed By: #### C BC #### [facility] [address] [address] [address] Lolita Alvarado Basophils/100 WBC (Bld) 0.4 % Normal 0.2-2.0 [facility] Comment on above: Performed By: #### C BC #### [facility] [address] [place] [address] Dr. Lolita Alvarado EO # 0.0 103/ul Normal 0.0-0.7 [facility] Comment on above: Performed By: #### C BC #### [facility] [address] [place] [address] Dr. Lolita Alvarado Eosinophils/100 WBC (Bld) 0.2 % Critically low 0.9-7.0 [facility] Comment on above: Performed By: #### C BC #### [facility] [address] [place] [address] Dr. Lolita Alvarado Erythrocyte distribution width (RBC) [Ratio] 12.8 % Normal 11.0-15.0 [facility] Comment on above: Performed By: #### C BC #### [facility] [address] [place] [address] Dr. Lolita Alvarado Hematocrit (Bld) [Volume fraction] 30.1 % Critically low 36.0-48.0 [facility] Comment on above: Performed By: #### C BC #### [facility] [address] [place] [address] Dr. Lolita Alvarado Hemoglobin (Bld) [Mass/Vol] 10.3 g/dL Critically low 12.0-16.0 [facility] Comment on above: Performed By: #### C BC #### [facility] [address] [place] [address] Dr. Lolita Alvarado IG # 0.02 10e3/ul Normal 0.00-0.03 [facility] Comment on above: Performed By: #### C BC #### [facility] [address] [place] [address] Dr. Lolita Alvarado IG % 0.4 % Normal 0.0-0.5 [facility] Comment on above: Performed By: #### C BC #### [facility] [address] [place] [address] Dr. Lolita Alvarado LYMPH # 0.7 103/ul Critically low 1.2-3.8 [facility] Comment on above: Performed By: #### C BC #### [facility] [address] [place] [address] Dr. Lolita Alvarado Lymphocytes/100 WBC (Bld) 14.9 % Critically low 20.5-60.0 [facility] Comment on above: Performed By: #### C BC #### [facility] [address] [place] [address] Dr. Lolita Alvarado MANUAL DIFF REQ NO Normal [facility] Comment on above: Performed By: #### C BC #### [facility] [address] [place] [address] Dr. Lolita Alvarado MCH (RBC) [Entitic mass] 33.6 pg Normal 26.7-34.0 [facility] Comment on above: Performed By: #### C BC #### [facility] [address] [place] [address] Dr. Lolita Alvarado MCHC (RBC) [Mass/Vol] 34.2 g/dL Normal 29.9-35.2 [facility] Comment on above: Performed By: #### C BC #### [facility] [address] [place] [address] Dr. Lolita Alvarado MCV (RBC) [Entitic vol] 98.0 fL Normal 81.0-99.0 [facility] Comment on above: Performed By: #### C BC #### [facility] [address] [place] [address] Dr. Lolita Alvarado MONO # 0.4 103/ul Normal 0.3-0.8 [facility] Comment on above: Performed By: #### C BC #### [facility] [address] [place] [address] Dr. Lolita Alvarado Monocytes/100 WBC (Bld) 9.0 % Normal 1.7-12.0 [facility] Comment on above: Performed By: #### C BC #### [facility] [address] [place] [address] Dr. Lolita Alvarado NEUT # 3.4 103/ul Normal 1.4-6.5 [facility] Comment on above: Performed By: #### C BC #### [facility] [address] [place] [address] Dr. Lolita Alvarado Neutrophils/100 WBC (Bld) 75.1 % Critically high 43.0-75.0 [facility] Comment on above: Performed By: #### C BC #### [facility] [address] [place] [address] Dr. Lolita Alvarado Platelet mean volume (Bld) [Entitic vol] 8.5 fL Critically low 9.5-13.5 [facility] Comment on above: Performed By: #### C BC #### [facility] [address] [place] [address] Dr. Lolita Alvarado PLT 229 103/ul Normal 150-450 [facility] Comment on above: Performed By: #### C BC #### [facility] [address] [place] [address] Dr. Lolita Alvarado RBC 3.07 106/ul Critically low 4.20-5.40 [facility] Comment on above: Performed By: #### C BC #### [facility] [address] [place] [address] Dr. Lolita Alvarado WBC 4.6 103/ul Normal 4.0-11.0 [facility] Comment on above: Performed By: #### C BC #### [facility] [address] [place] [address] Dr. Lolita Alvarado CBC AUTO DIFFon 06-01-2022 BASO # 0.0 103/ul Normal 0.0-0.1 [facility] Comment on above: Performed By: #### C BC #### [facility] [address] [place] [address] Dr. Lolita Alvarado Basophils/100 WBC (Bld) 0.7 % Normal 0.2-2.0 [facility] Comment on above: Performed By: #### C BC #### [facility] [address] [place] [address] Dr. Lolita Alvarado EO # 0.2 103/ul Normal 0.0-0.7 [facility] Comment on above: Performed By: #### C BC #### [facility] [address] [place] [address] Dr. Lolita Alvarado Eosinophils/100 WBC (Bld) 3.7 % Normal 0.9-7.0 [facility] Comment on above: Performed By: #### C BC #### [facility] [address] [place] [address] Dr. Lolita Alvarado Erythrocyte distribution width (RBC) [Ratio] 13.0 % Normal 11.0-15.0 [facility] Comment on above: Performed By: #### C BC #### [facility] [address] [place] [address] Dr. Lolita Alvarado Hematocrit (Bld) [Volume fraction] 32.2 % Critically low 36.0-48.0 [facility] Comment on above: Performed By: #### C BC #### [facility] [address] [place] [address] Dr. Lolita Alvarado Hemoglobin (Bld) [Mass/Vol] 10.6 g/dL Critically low 12.0-16.0 [facility] Comment on above: Performed By: #### C BC #### [facility] [address] [place] [address] Dr. Lolita Alvarado IG # 0.02 10e3/ul Normal 0.00-0.03 [facility] Comment on above: Performed By: #### C BC #### [facility] [address] [place] [address] Dr. Lolita Alvarado IG % 0.5 % Normal 0.0-0.5 [facility] Comment on above: Performed By: #### C BC #### [facility] [address] [place] [address] Dr. Lolita Alvarado LYMPH # 1.4 103/ul Normal 1.2-3.8 [facility] Comment on above: Performed By: #### C BC #### [facility] [address] [place] [address] Dr. Lolita Alvarado Lymphocytes/100 WBC (Bld) 32.4 % Normal 20.5-60.0 [facility] Comment on above: Performed By: #### C BC #### [facility] [address] [place] [address] Dr. Lolita Alvarado MANUAL DIFF REQ NO Normal [facility] Comment on above: Performed By: #### C BC #### [facility] [address] [place] [address] Dr. Lolita Alvarado MCH (RBC) [Entitic mass] 32.1 pg Normal 26.7-34.0 [facility] Comment on above: Performed By: #### C BC #### [facility] [address] [place] [address] Dr. Lolita Alvarado MCHC (RBC) [Mass/Vol] 32.9 g/dL Normal 29.9-35.2 [facility] Comment on above: Performed By: #### C BC #### [facility] [address] [place] [address] Dr. Lolita Alvarado MCV (RBC) [Entitic vol] 97.6 fL Normal 81.0-99.0 [facility] Comment on above: Performed By: #### C BC #### [facility] [address] [place] [address] Dr. Lolita Alvarado MONO # 0.6 103/ul Normal 0.3-0.8 [facility] Comment on above: Performed By: #### C BC #### [facility] [address] [place] [address] Dr. Lolita Alvarado Monocytes/100 WBC (Bld) 14.0 % Critically high 1.7-12.0 [facility] Comment on above: Performed By: #### C BC #### [facility] [address] [place] [address] Dr. Lolita Alvarado NEUT # 2.1 103/ul Normal 1.4-6.5 [facility] Comment on above: Performed By: #### C BC #### [facility] [address] [place] [address] Dr. Lolita Alvarado Neutrophils/100 WBC (Bld) 48.7 % Normal 43.0-75.0 [facility] Comment on above: Performed By: #### C BC #### [facility] [address] [place] [address] Dr. Lolita Alvarado Platelet mean volume (Bld) [Entitic vol] 8.2 fL Critically low 9.5-13.5 [facility] Comment on above: Performed By: #### C BC #### [facility] [address] [place] [address] Dr. Lolita Alvarado PLT 216 103/ul Normal 150-450 [facility] Comment on above: Performed By: #### C BC #### [facility] [address] [place] [address] Dr. Lolita Alvarado RBC 3.30 106/ul Critically low 4.20-5.40 [facility] Comment on above: Performed By: #### C BC #### [facility] [address] [place] [address] Dr. Lolita Alvarado WBC 4.3 103/ul Normal 4.0-11.0 [facility] Comment on above: Performed By: #### C BC #### [facility] [address] [place] [address] Dr. Lolita Alvarado OCC BLD IMMUNOASSAYon 2021 OCCULT BLOOD Positive Abnormal NEGATIVE [facility] Comment on above: Performed By: #### O ELADIO #### [facility] [address] [place] [address] Dr. Lolita Alvarado PROTIMEon 06-01-2022 INR Coag (PPP) [Relative time] 1.62 {INR} Normal [facility] Comment on above: Performed By: #### P T, PTT #### [facility] [address] [place] [address] Dr. Lolita Alvarado INR GUIDELINES SEE BELOW Normal [facility] Comment on above: Result Comment: TOSHA RED INR: 2.0 - 3.0 CONDITIONS NOT LISTED BELOW 2.5 - 3.5 FOR PROSTHETIC HEART VALVE REPLACEMENT 2.5 - 3.5 RECURRENT THROMBOSIS Performed By: #### P T, PTT #### [facility] [address] [place] [address] Dr. Lolita Alvarado PT Coag (PPP) [Time] 17.0 s Critically high 9.0-11.6 [facility] Comment on above: Performed By: #### P T, PTT #### [facility] [address] [place] [address] Dr. Lolita Alvarado PTTon 06-01-2022 aPTT Coag (Bld) [Time] 40.2 s Critically high 22.3-36.2 [facility] Comment on above: Performed By: #### P T, PTT #### [facility] [address] [place] [address] Dr. Lolita Alvarado Covid-19 PCR [facility])on 05-06 SARS-CoV-2 (COVID-19) RNA EDWIN+probe Ql (Unsp spec) Not detected Normal NOT DETECTED [facility] Comment on above: Result Comment: This test is not yet approved or cleared by the [place] FDA. When there are no FDA-approved or cleared tests available, and other criteria are met, FDA can make tests available under an emergency access mechanism called an Emergency Use Authorization (EUA). The EUA for this test is supported by the [place] of Health and Human Service's (HHS's) declaration [...] consistent with SARS-CoV-2. Performed By: #### C VDTBH #### [facility] [address] [place] [address] Dr. Lolita Alvarado US NOLBERTO DOP LEG [...] by: SHERYL SRINIVASAN Date: 2022-05-25 16:09 Normal [facility] US NOLBERTO DOP LEG LTon 04-28-20 [...] and mid calf. There may be a transcribing machine mechanic extending to the region of the thrombosis. The remaining deep venous structures are patent. 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 This finding was placed in the stat call folder. 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 Electronically authenticated by: CHUCK TATUM Date: 2022-04-28 19:31 Normal [facility] POINT OF CARE GLUCOSEon 04-06 Glucose [Mass/Vol] 86 mg/dL Normal 74-106 [facility] Comment on above: Performed By: #### C BC #### [facility] [address] [place] [address] Dr. 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 Facility 06-18-2025 11:040 Body height 160 cm Silvino CARLINM Work Phone: [facility] 06-18-2025 11:040 Body mass index (BMI) [Ratio] 21.08 kg/m2 Silvino CARLINM Work Phone: [facility] 06-18-2025 11:27-040 Body weight 53.98 kg Silvino CARLINM Work Phone: [facility] 06-18-2025 11:27-0400 Respiratory rate 19 /min Silvino Brown DPM Work Phone: [facility] 04-02-2025 11:06-0400 Body height 160 cm Silvino Brown DPM Work Phone: [facility] 04-02-2025 11:06-0400 Body mass index (BMI) [Ratio] 21.08 kg/m2 Silvino Brown DPM Work Phone: [facility] 04-02-2025 11:06-0400 Body weight 53.98 kg Silvino Brown DPM Work Phone: [facility] 04-02-2025 11:06-0400 Respiratory rate 18 /min Silvino Brown DPM Work Phone: [facility] 02-26-2025 08:55-0400 Body height 160 cm Silvino Brown DPM Work Phone: [facility] 02-26-2025 08:55-0400 Body mass index (BMI) [Ratio] 21.08 kg/m2 Silvino Brown DPM Work Phone: [facility] 02-26-2025 08:55-0400 Body weight 53.98 kg Silvino Brown DPM Work Phone: [facility] 02-26-2025 08:55-0400 Respiratory rate 18 /min Silvino Brown DPM Work Phone: [facility] 11-20-2024 08:27-0500 Body height 160 cm Silvino Brown DPM Work Phone: [facility] 11-20-2024 08:27-0500 Body mass index (BMI) [Ratio] 21.08 kg/m2 Silvino Brown DPM Work Phone: [facility] 11-20-2024 08:27-0500 Body weight 53.98 kg Silvino Brown DPM Work Phone: [facility] 11-20-2024 08:27-0500 Respiratory rate 16 /min Silvino Aurelio DPM Work Phone: [facility] 09-04-2024 08:19-0400 Body height 160 cm Silvino Carey DPM Work Phone: [facility] 09-04-2024 08:19-0400 Body mass index (BMI) [Ratio] 21.08 kg/m2 Silvino Carey DPM Work Phone: [facility] 09-04-2024 08:19-0400 Body weight 53.98 kg Silvino Carey DPM Work Phone: [facility] 09-04-2024 08:19-0400 Diastolic blood pressure 80 mm[Hg] Silvino Carey DPM Work Phone: [facility] 09-04-2024 08:19-0400 Heart rate 82 /min Silvino Carey DPM Work Phone: [facility] 09-04-2024 08:19-0400 Systolic blood pressure 126 mm[Hg] Silvino Carey DPM Work Phone: [facility] 06-26-2024 08:26-0400 Body height 160 cm Silvino Carey DPM Work Phone: [facility] 06-26-2024 08:26-0400 Body mass index (BMI) [Ratio] 21.08 kg/m2 Silvino Carey DPM Work Phone: [facility] 06-26-2024 08:26-0400 Body weight 53.98 kg Silvino Carey DPM Work Phone: [facility] 06-26-2024 08:26-0400 Diastolic blood pressure 79 mm[Hg] Silvino Brown DPM Work Phone: [facility] 06-26-2024 08:26-0400 Heart rate 77 /min Silvino Carey DPM Work Phone: [facility] 06-26-2024 08:26-0400 Systolic blood pressure 123 mm[Hg] Silvino Carey DPM Work Phone: [facility] 04-14-2024 12:28-0400 Blood Pressure Location Mohamad Mouchli [facility] 04-14-2024 12:28-0400 Diastolic blood pressure 77 mm[Hg] Mohamad Mouchli [facility] 04-14-2024 12:28-0400 Heart rate 68 /min Mohamad Mouchli [facility] 04-14-2024 12:28-0400 Respiratory rate 16 /min Mohamad Mouchli [facility] 04-14-2024 12:28-0400 Systolic blood pressure 140 mm[Hg] Mohamad Mouchli [facility] 01-23-2024 14:05-0400 Diastolic blood pressure 73 mm[Hg] Mohamad Mouchli [facility] 01-23-2024 14:05-0400 Mean blood pressure 93 mm[Hg] Mohamad Mouchli [facility] 01-23-2024 14:05-0400 Systolic blood pressure 134 mm[Hg] Mohamad Mouchli [facility] 01-23-2024 14:02-0400 Blood Pressure Location Mohamad Mouchli [facility] 01-23-2024 14:02-0400 Diastolic blood pressure 82 mm[Hg] Mohamad Mouchli [facility] 01-23-2024 14:02-0400 Heart rate 84 /min Mohamad Mouchli [facility] 01-23-2024 14:02-0400 Respiratory rate 16 /min Lynn Pastrana [facility] 01-23-2024 14:02-0400 Systolic blood pressure 147 mm[Hg] Lynn Pastrana [facility] Encounters Encounter Date Encounter Type Care Provider Facility Start: 06-18-2025 End: 06-18-2025 Bamboo flowsheet Silvino Carey DPM Work Phone: [facility] Start: 06-18-2025 End: 06-18-2025 Bamboo flowsheet Silvino Carey DPM Work Phone: [facility] Start: 06-18-2025 End: 06-18-2025 Patient encounter procedure Silvino Carey DPM Work Phone: [facility] Comment on above: Verruca plantaris (P rimary Dx); Foot pain, right; Acquired deformity of right toe; Pain due to onychomycosis of toenails of both feet Start: 06-18-2025 End: 06-18-2025 ambulatory SILVINO CAREY Not Available Start: 04-02-2025 End: 04-02-2025 Bamboo flowsheet Slivino Carey DPM Work Phone: [facility] Start: 04-02-2025 End: 04-02-2025 Bamboo flowsheet Silvino Carey DPM Work Phone: [facility] Start: 04-02-2025 End: 04-02-2025 Patient encounter procedure Silvino Carey DPM Work Phone: [facility] Comment on above: Pain due to onychomy cosis of toenails of both feet (Primary Dx); Verruca plantaris; Foot pain, right; Acquired deformity of right toe Start: 04-02-2025 End: 04-02-2025 ambulatory SILVINO CAREY Not Available Start: 02-26-2025 End: 02-26-2025 Bamboo flowsheet Silvino Carey DPM Work Phone: [facility] Start: 02-26-2025 End: 02-26-2025 Bamboo flowsheet Silvino Carey DPM Work Phone: [facility] Start: 02-26-2025 End: 02-26-2025 Postop follow up visit related to original px Silvino Carey DPM Work Phone: [facility] Comment on above: Verruca plantaris (P rimary Dx); Foot pain, right; Pain due to onychomycosis of toenails of both feet; Acquired deformity of right toe Start: 02-26-2025 End: 02-26-2025 ambulatory SILVINO CAREY Not Available Start: 02-03-2025 End: 02-03-2025 Bamboo flowsheet Isai Horne MD Work Phone: [facility] Start: 02-03-2025 End: 02-03-2025 Bamboo flowsheet Isai Horne MD Work Phone: [facility] Start: 02-03-2025 End: 02-03-2025 Patient encounter procedure Isai Horne MD Work Phone: [facility] Comment on above: Actinic keratosis (P rimary Dx) Start: 02-03-2025 End: 02-03-2025 ambulatory ISAI HORNE Not Available Start: 12-29-2024 End: 12-29-2024 Bamboo flowsheet Calixto Barba [employer] Work Phone: [facility] Start: 12-29-2024 End: 12-29-2024 Bamboo flowsheet Calixto Barba [employer] TE[employer] Work Phone: [facility] Start: 12-29-2024 End: 12-29-2024 Office outpatient visit 15 minutes Calixto Barba [employer] TE[employer]ER Work Phone: [facility] Comment on above: Nondisplaced fractur e of shaft of fifth metacarpal bone, right hand, subsequent encounter for fracture with routine healing (Primary Dx); Right hand pain Start: 12-29-2024 End: 12-29-2024 ambulatory CALIXTO BARBA Not Available Start: 12-16-2024 End: 12-16-2024 Bamboo flowsheet Isai Horne MD Work Phone: [facility] Start: 12-16-2024 End: 12-22-2024 Bamboo flowsbart Horne MD Work Phone: [facility] Start: 12-16-2024 End: 12-22-2024 External Result Encounter Isai Horne MD Work Phone: [facility] External Department Unsolicited Start: 12-16-2024 End: 12-16-2024 Patient encounter procedure Isai Horne MD Work Phone: [facility] Comment on above: Neoplasm of unspecif ied behavior of bone, soft tissue, and skin (Primary Dx) Start: 12-16-2024 End: 12-16-2024 ambulatory ISAI HORNE Not Available Start: 11-20-2024 End: 11-20-2024 Bamboo flowsheet Silvino Carey DPM Work Phone: [facility] Start: 11-20-2024 End: 11-20-2024 Bamboo flowsbatr Carey DPM Work Phone: [facility] Start: 11-20-2024 End: 11-20-2024 Office outpatient visit 15 minutes Silvino Carey DPM Work Phone: [facility] Comment on above: Acquired deformity o f right toe (Primary Dx); Pain due to onychomycosis of toenails of both feet; Verruca plantaris; Foot pain, right Start: 11-20-2024 End: 11-20-2024 ambulatory SILVINO CAREY Not Available Start: 10-06-2024 End: 10-06-2024 Bamboo flowsheet Calixto Barba [employer] TE[employer]ER Work Phone: [facility] Start: 10-06-2024 End: 10-06-2024 Bamboo flowsheet Calixto Barba [employer] TE[employer]ER Work Phone: [facility] Start: 10-06-2024 End: 10-06-2024 Office outpatient visit 10 minutes Calixto Barba NP Work Phone: [facility] Comment on above: Nondisplaced fractur e of shaft of fifth metacarpal bone, right hand, subsequent encounter for fracture with routine healing Start: 10-06-2024 End: 10-06-2024 ambulatory CALIXTO BARBA Not Available Start: 09-09-2024 End: 09-09-2024 Bamboo flowsheet Calixto Barba [employer] TE[employer]ER Work Phone: [facility] Start: 09-09-2024 End: 09-09-2024 Bamboo flowsbart Barba [employer]IGINS TEACHER Work Phone: [facility] Start: 09-09-2024 End: 09-09-2024 Postop follow up visit related to original px Calixto Barba [employer] TEACHER Work Phone: [facility] Comment on above: Nondisplaced fractur e of shaft of fifth metacarpal bone, right hand, subsequent encounter for fracture with routine healing Start: 09-09-2024 End: 09-09-2024 ambulatory CALIXTO BARBA Not Available Start: 09-04-2024 End: 09-04-2024 Bamboo flowsheet Silvino Carey DPM Work Phone: [facility] Start: 09-04-2024 End: 09-04-2024 Bamboo flowsheet Silvino Carey DPM Work Phone: [facility] Start: 09-04-2024 End: 09-04-2024 Office outpatient visit 15 minutes Silvino Carey DPM Work Phone: [facility] Comment on above: Acquired deformity o f right toe (Primary Dx); Verruca plantaris; Foot pain, right; Pain due to onychomycosis of toenails of both feet Start: 09-04-2024 End: 09-04-2024 ambulatory SILVINO Juan AURELIO Not Available Start: 08-19-2024 End: 08-19-2024 Bamboo flowsheet Calixto Barba [employer] TEACHER Work Phone: [facility] Start: 08-19-2024 End: 08-19-2024 Bamboo flowsheet Calixto Barba [employer] TEACHER Work Phone: [facility] Start: 08-19-2024 End: 08-19-2024 Postop follow up visit related to original px Calixto Barba [employer] TEACHER Work Phone: [facility] Comment on above: Nondisplaced fractur e of shaft of fifth metacarpal bone, right hand, subsequent encounter for fracture with routine healing Start: 08-19-2024 End: 08-19-2024 ambulatory CALIXTO BARBA Not Available Start: 08-14-2024 End: 08-14-2024 Bamboo flowsheet Isai Horne MD Work Phone: [facility] Start: 08-14-2024 End: 08-14-2024 Bamboo paymioheet Isai Horne MD Work Phone: [facility] Start: 08-14-2024 End: 08-14-2024 Office outpatient visit 15 minutes Isai Horne MD Work Phone: [facility] Comment on above: Other atopic dermati tis (Primary Dx); History of SCC (squamous cell carcinoma) of skin; Actinic keratosis; Seborrheic keratosis, inflamed; Seborrheic keratosis Start: 08-14-2024 End: 08-14-2024 ambulatory ISAI HORNE Not Available Start: 08-13-2024 End: 08-13-2024 BamVedantuchase paymiobart Aguilar DO Work Phone: [facility] Start: 08-13-2024 End: 08-13-2024 BamVedantuchase Aguilar DO Work Phone: [facility] Start: 08-13-2024 End: 08-13-2024 Office outpatient visit 25 minutes Jr. Job Aguilar DO Work Phone: [facility] Comment on above: History of left knee replacement (Primary Dx); Acute pain of left knee Start: 08-13-2024 End: 08-13-2024 ambulatory , JOB BALLARDANIC Not Available Start: 07-22-2024 End: 07-22-2024 Bamboo flowsheet Calixto Barba NP Work Phone: [facility] Start: 07-22-2024 End: 07-22-2024 Bamboo flowsheet Calixto Barba [employer] TEACHER Work Phone: [facility] Start: 07-22-2024 End: 07-22-2024 Postop follow up visit related to original px Calixto Barba NP Work Phone: [facility] Comment on above: Nondisplaced fractur e of shaft of fifth metacarpal bone, right hand, subsequent encounter for fracture with routine healing Start: 07-22-2024 End: 07-22-2024 ambulatory CALIXTO BARBA Not Available Start: 07-14-2024 ambulatory Lynn Monroe lity:Sudarshan SMITH Start: 07-03-2024 End: 07-03-2024 Bamboo flowsheet Calixto Barba [employer] TEACHER Work Phone: [facility] Start: 07-03-2024 End: 07-03-2024 Bamboo flowsheet Calixto Barba [employer] TEACHER Work Phone: [facility] Start: 07-03-2024 End: 07-03-2024 Office outpatient visit 15 minutes Calixto Barba NP Work Phone: [facility] Comment on above: Nondisplaced fractur e of shaft of fifth metacarpal bone, right hand, initial encounter for closed fracture (Primary Dx); Right hand pain Start: 07-03-2024 End: 07-03-2024 ambulatory CALIXTO BARBA Not Available Start: 06-26-2024 End: 06-26-2024 Bamboo flowsheet Silvino Carey DPM Work Phone: [facility] Start: 06-26-2024 End: 06-26-2024 Bamboo flowsheet Silvino Yessica Aurelio DPM Work Phone: [facility] Start: 06-26-2024 End: 06-26-2024 Patient encounter procedure Silvino Carey DPM Work Phone: [facility] Comment on above: Acquired deformity o f right toe (Primary Dx); Verruca plantaris; Foot pain, right; Onychomycosis; Toe pain, bilateral Start: 06-26-2024 End: 06-26-2024 ambulatory SILVINO CAREY Not Available Start: 04-14-2024 End: 04-14-2024 ambulatory Lynn Pastrana Facility:[facility] Start: 04-14-2024 End: 04-14-2024 Patient encounter procedure Lynn Pastrana [facility] Start: 01-23-2024 End: 01-23-2024 ambulatory [facility] Start: 01-23-2024 End: 01-23-2024 Patient encounter procedure Lynn Pastrana [facility] Start: 01-11-2024 ambulatory Lynn Pastrana Facilit y:KEVIN Lagunas Start: 01-10-2024 ambulatory [facility] Start: 12-14-2023 End: 12-14-2023 Postop follow up visit related to original px Andres MARIE Work Phone: [facility] Comment on above: S/P right knee arthr oscopy (Primary Dx) Start: 10-11-2023 End: 10-16-2023 Evaluation and management of inpatient [facility] Facility: Start: 06-14-2023 ambulatory HORTENCIA KISHORE . Facili ty:[facility] Start: 04-04-[address] SANTIAGO PATRICIO . Facili ty:[facility] Start: 03-16-2023 End: 03-17-2023 ambulatory HORTENCIA KISHORE . Facility:[facility] Start: 12-23-2022 End: 12-24-[address] SANTIAGO PATRICIO . Facility:[facility] Start: 11-02-2022 ambulatory STARR ENGIS . Facility:[facility] Start: 11-01-2022 End: 11-01-2022 ambulatory Santiago Patricio Facility:[facility] Start: 11-01-2022 End: 11-01-2022 ambulatory MD Santiago Patricio Work Phone: [facility] Work Phone: Start: 11-01-2022 End: 11-01-2022 Patient encounter procedure MD Santiago Patricio Work Phone: [facility] Work Phone: Start: 10-23-2022 End: 10-24-[address] SANTIAGO PATRICIO . Facility:[facility] Start: 10-16-2022 End: 10-17-2022 ambulatory RACHANA BLADES Facility:[facility] Start: 10-11-2022 End: 10-11-2022 ambulatory Rachana Blades Other [facility] [employer] Other Start: 10-11-2022 Telephone encounter Rachana Salmon F PG [facility] Neurosurgery Start: 09-12-2022 End: 09-13-[address] SANTIAGO PATRIICO . Facility:[facility] Start: 08-29-2022 End: 08-29-2022 Patient encounter procedure Arie ZUNIGA General Surgery Rubio/Eliz Ma Start: 08-22-2022 End: 08-23-2022 ambulatory BRAD CALDWELL Facility:[facility] Start: 08-16-2022 End: 08-16-[address] ARIE ZUNIGA . Facility:[facility] Start: 08-12-[address] ARIE ZUNIGA . Facil ity:[facility] Start: 08-10-2022 End: 08-11-[address] SANTIAGO PATRICIO . Facility:[facility] Start: 08-10-2022 Encounter for other preprocedural examination DR ARIE ZUNIGA . [facility] Start: 08-08-2022 End: 08-09-[address] ARIE ZUNIGA . Facility:[facility] Start: 08-08-2022 End: 08-09-2022 Encounter for other preprocedural examination DR ARIE ZUNIGA . Facility:[facility] Start: 08-02-2022 End: 08-03-[address] ARIE ZUNIGA . Facility:[facility] Start: 07-31-2022 End: 10-03-[address] IVANIA GARCIA . Facility:[facility] Start: 07-27-[address] SANTIAGO PATRICIO . Facili ty:[facility] Start: 07-27-2022 End: 07-28-2022 ambulatory STARR ARROYO . Facility:[facility] Start: 07-04-2022 End: 07-04-[address] SANTIAGO PATRICIO . Facility:[facility] Start: 06-02-2022 End: 06-03-[address] SANTIAGO PATRICIO . Facility:[facility] Start: 06-01-2022 End: 06-02-2022 ambulatory STARR ARROYO . Facility:[facility] Start: 05-25-2022 End: 05-25-[address] SANTIAGO PATRICIO . Facility:[facility] Start: 05-25-2022 End: 05-26-[address] SANTIAGO PATRICIO . Facility:[facility] Start: 04-28-2022 End: 04-29-2022 ambulatory STARR ARROYO . Facility:[facility] Start: 04-25-2022 End: 04-25-[address] IVANIA GARCIA . Facility:[facility] Procedures Date Procedure Procedure Detail Performing Clinician Start: 02-03-2025 CRYOTHERAPY SKIN LESION Isai Horne MD Work Phone: Start: 12-29-2024 Radex hand minimum 3 views Calixto Barba NP Work Phone: Start: 12-16-2024 SKIN / NAIL BIOPSY Isai Horne MD Work Phone: Start: 12-16-2024 Level i surg pathology gross examination only Isai Horne MD Work Phone: Start: 10-06-2024 Radex hand minimum 3 views Calixto Barba NP Work Phone: Start: 09-09-2024 Radex hand minimum 3 views Calixto Barba NP Work Phone: Start: 08-19-2024 Radex hand minimum 3 views Calixto Barba NP Work Phone: Start: 08-14-2024 End: 08-14-2024 CRYOTHERAPY SKIN LESION Isai Horne MD Work Phone: Start: 08-13-2024 Radiologic examination knee 1/2 views Jr. Job Aguilar DO Work Phone: Start: 07-22-2024 Radex hand minimum 3 views Calixto Barba NP Work Phone: Start: 07-03-2024 CAST / SPLINT / FX Calixto Barba NP Work Phone: Start: 07-03-2024 Radex hand minimum 3 views Calixto Barba NP Work Phone: Start: 11-01-2022 Positron emission tomography [...] Louis jennie NILL Extraction of cataract Louis el NILL History of operative procedure on knee History of left knee replacement Jr. Job Aguilar DO Work Phone: Knee region structur e (body structure) Lynn Pastrana Plan of Treatment Date Care Activity Detail Author Start: 08-11-2026 End: 08-11-2026 Patient encounter procedure [facility] Start: 09-10-2025 End: 09-10-2025 Patient encounter procedure 09/10/2025 11:50 AM EST Procedure Visit [facility] [address] [place] [address] Silvino Craey DPM [address] [address] [facility] Start: 09-01-2025 End: 09-01-2025 Patient encounter procedure [facility] Start: 08-13-2025 End: 08-13-2025 Patient encounter procedure 08/13/2025 10:45 AM EDT Office Visit [facility] [address] [place] [address] Isai Horne MD [address] [place] [address] [facility] Start: 07-06-2025 Influenza vaccination [facility] Start: 06-18-2025 End: 06-18-2025 Patient encounter procedure 06/18/2025 11:40 AM EDT Procedure Visit [facility] [address] [place] [address] Silvino Carey DPM [address] [address] Verruca plantaris (Primary Dx); Foot pain, right; Acquired deformity of right toe; Pain due to onychomycosis of toenails of both feet [facility] Comment on above: Verruca plantaris (Primary Dx); Foot pain, right; Acquired deformity of right toe; Pain due to onychomycosis of toenails of both feet Start: 06-11-2025 End: 06-11-2025 Patient encounter procedure 06/11/2025 10:30 AM EDT Procedure Visit [facility] [address] [address] Silvino Carey DPM [address] [address] [facility] Start: 04-02-2025 End: 04-02-2025 Patient encounter procedure 04/02/2025 11:30 AM EDT Procedure Visit [facility] [address] [address] Silvino Carey DPM [address] [address] Pain due to onychomycosis of toenails of both feet (Primary Dx); Verruca plantaris; Foot pain, right; Acquired deformity of right toe [facility] Comment on above: Pain due to onychomycosis of toenails of both feet (Primary Dx); Verruca plantaris; Foot pain, right; Acquired deformity of right toe Start: 02-26-2025 End: 02-26-2025 Patient encounter procedure 02/26/2025 9:10 AM EDT Procedure Visit [facility] [address] [address] Silvino Carey, TESFAYEM [address] [address] Verruca plantaris (Primary Dx); Foot pain, right; Pain due to onychomycosis of toenails of both feet; Acquired deformity of right toe [facility] Comment on above: Verruca plantaris (Primary Dx); Foot pain, right; Pain due to onychomycosis of toenails of both feet; Acquired deformity of right toe Start: 02-05-2025 End: 02-05-2025 Patient encounter procedure 02/05/2025 8:30 AM EDT Procedure Visit [facility] [address] [facility] [address] [place] [address] Silvino Carey DPJake [address] [facility] [address] [place] [address] [facility] Start: 02-04-2025 End: 02-04-2025 Patient encounter procedure 02/04/2025 10:50 AM EDT Office Visit [facility] [address] [place] [address] Isai Horne MD [address] [facility] [address] [place], [place] [id number] [facility] Start: 02-03-2025 End: 02-03-2025 Patient encounter procedure 02/03/2025 10:40 AM EDT Office Visit [facility] [address] [place] [address] Isai Horne MD [address] [place] [address] Arrived [facility] Comment on above: Arrived Start: 12-29-2024 End: 12-29-2024 Patient encounter procedure [facility] Comment on above: Nondisplaced fracture of shaft of fifth metacarpal bone, right hand, subsequent encounter for fracture with routine healing Start: 12-16-2024 End: 12-16-2024 Patient encounter procedure 12/16/2024 9:05 AM EST Office Visit [facility] [address] [place] [address] Isai Horne MD [address] [place] [address] Arrived [facility] Comment on above: Arrived Start: 12-11-2024 End: 12-11-2024 Patient encounter procedure 12/11/2024 3:05 PM EST Office Visit [facility] [address] [place] [id number] Isai Horne MD [address] [place] [address] [facility] Start: 11-20-2024 End: 11-20-2024 Patient encounter procedure [facility] Comment on above: Pain due to onychomycosis of toenails of both feet (Primary Dx); Verruca plantaris; Foot pain, right; Acquired deformity of right toe Start: 10-06-2024 End: 10-06-2024 Patient encounter procedure [facility] Comment on above: Nondisplaced fracture of shaft of fifth metacarpal bone, right hand, subsequent encounter for fracture with routine healing Start: 09-09-2024 End: 09-09-2024 Patient encounter procedure [facility] Comment on above: Nondisplaced fracture of shaft of fifth metacarpal bone, right hand, subsequent encounter for fracture with routine healing Start: 09-04-2024 End: 09-04-2024 Patient encounter procedure [facility] Comment on above: Acquired deformity of right toe (Primary Dx); Verruca plantaris; Foot pain, right; Pain due to onychomycosis of toenails of both feet Start: 08-19-2024 End: 08-19-2024 Patient encounter procedure [facility] Comment on above: Nondisplaced fracture of shaft of fifth metacarpal bone, right hand, subsequent encounter for fracture with routine healing Start: 08-14-2024 End: 08-14-2024 Patient encounter procedure [facility] Comment on above: Arrived Start: 08-13-2024 End: 08-13-2024 Patient encounter procedure 08/13/2024 10:15 AM EDT [facility] [address] [place] [phone] Jr. Job Aguilar, DO [address] [facility] [facility] [address] [place] [address] Arrived [facility] Comment on above: Arrived Start: 08-06-2024 End: 08-06-2024 Patient encounter procedure [facility] Start: 08-06-2024 End: 08-06-2024 Telemedicine consultation with patient 08/06/2024 9:30 AM EDT Telemedicine [facility] [address] [place] [phone] Jr. Job Aguilar, DO [address] [facility] [address] [place] [address] [facility] Start: 07-22-2024 End: 07-22-2024 Patient encounter procedure [facility] Comment on above: Nondisplaced fracture of shaft of fifth metacarpal bone, right hand, subsequent encounter for fracture with routine healing Start: 07-06-2024 Influenza vaccination Influenza Vaccine (#1) [facility] Start: 07-03-2024 End: 07-03-2024 Patient encounter procedure 07/03/2024 11:30 AM EDT Office Visit [facility] [address] [place] [phone] Calixto Barba, ETHNIC ORIGINS TEACHER [address] [place] [address] Arrived [facility] Comment on above: Arrived Start: 06-26-2024 End: 06-26-2024 Patient encounter procedure 06/26/2024 8:30 AM EDT Procedure Visit [facility] [address] [facility] [address] [place] [phone] Silvino Carey DPM [address] [facility] [address] [place] [address] Acquired deformity of right toe (Primary Dx); Verruca plantaris; Foot pain, right; Onychomycosis; Toe pain, bilateral [facility] Comment on above: Acquired deformity of right toe (Primary Dx); Verruca plantaris; Foot pain, right; Onychomycosis; Toe pain, bilateral Start: 07-06-2023 Influenza vaccination Influenza Vaccine (#1) [facility] Dermatopathology exam Dermatopat hology exam Pathology and Cytology Timed Neoplasm of unspecified behavior of bone, soft tissue, and skin Release Upon Ordering for 1 Occurrences starting 12/16/2024 [facility] Work Phone: Comment on above: Release Upon Ordering for 1 Occurrences starting 12/16/2024 Immunizations Immunization Date Immunization Notes Care Provider Fa cility 10-11-2022 SARS-CoV-2 (COVID-19 ) [id number] [facility] Comment on above: Result Comment: 2023: [id number] 08-16-2021 SARS-CoV-2 (COVID-19 ) mRNA BNT-162b2 vax [facility] 12-22-2020 SARS-CoV-2 (COVID-19 ) mRNA BNT-162b2 vax [facility] 11-29-2020 SARS-CoV-2 (COVID-19 ) mRNA BNT-162b2 vax [facility] 08-17-2020 influenza virus vacc ine, unspecified formulation Andres MARIE Work Phone: [facility] 08-06-2017 pneumococcal conjuga te vaccine, 13 valent [employer] [facility] 07-26-2017 influenza virus vacc ine, unspecified formulation [employer] [facility] 01-18-2016 pneumococcal polysaccharide vaccine, 23 valent Lnyn Pastrana [facility] 09-10-2015 zoster vaccine, live Lynn Pastrana [facility] 08-05-2015 influenza virus vacc ine, unspecified formulation Lynn Pastrana [facility] Payers Date Payer Category Payer Private Health Insurance AARP [id number] 2022 Unknown AAR AAR [id number] 2022-Present [address] [place] [address] [id number] .[id number] 2022 Unknown [id number] 2003 Medicare [id number] 1959 Medicare [id number] 2.16.840.1.529027.19 1959 Self-pay 1959 Unknown [id number] 2.16.840.1.359931.19 1938 Unknown [id number] 2.16.840.1.333249.3.579.2 .593 1938 Unknown [id number] 2.16.840.1.094485.3.579.2 .593 1938 Unknown [id number] 2.16.840.1.185832.3.579.2 .593 1938 Unknown [id number] 2.16.840.1.374490.3.579.2 .593 1938 Unknown [id number] 2.16.840.1.294515.3.579.2 .59 1938 Unknown [id number] 2.16.840.1.754651.3.579.2 .59 1938 Unknown [id number] 2.16.840.1.605150.3.579.2 .59 1938 Unknown [id number] 2.16.840.1.186178.3.579.2 .59 1938 Unknown [id number] 2.16.840.1.747474.3.579.2 .593 1938 Unknown [id number] 2.16.840.1.560882.3.579.2 .59 1938 Unknown [id number] 2.16.840.1.150244.3.579.2 .593 1938 Unknown [id number] 2.16.840.1.728403.3.579.2 .59 1938 Unknown [id number] 2.16.840.1.125863.3.579.2 .593 1938 Unknown [id number] 2.16.840.1.353196.3.579.2 .593 1938 Unknown [id number] 2.16.840.1.934932.3.579.2 .593 1938 Unknown [id number] 2.16.840.1.003599.3.579.2 .593 1938 Unknown [id number] 2.16.840.1.207878.3.579.2 .593 1938 Unknown [id number] 2.16.840.1.519263.3.579.2 .593 1938 Unknown [id number] 2.16.840.1.588632.3.579.2 .593 1938 Unknown [id number] 2.16.840.1.484273.3.579.2 .593 1938 Unknown [id number] 2.16.840.1.975720.3.579.2 .593 1938 Unknown [id number] 2.16.840.1.058135.3.579.2 .593 1938 Unknown [id number] 2.16.840.1.009483.3.579.2 .593 1938 Unknown [id number] 2.16.840.1.026732.3.579.2 .593 1938 Unknown [id number] 2.16.840.1.263071.3.579.2 .593 1938 Unknown [id number] 2.16.840.1.877588.3.579.2 .593 1938 Unknown [id number] 2.16.840.1.159268.3.579.2 .593 1938 Unknown [id number] 2.16.840.1.282949.3.579.2 .593 1938 Unknown [id number] 2.16.840.1.076657.3.579.2 .718 1938 Unknown [id number] 2.16.840.1.609148.3.579.2 .727 1938 Unknown [id number] 2.16.840.1.520582.3.579.2 .727 1938 Unknown [id number] 2.16.840.1.498736.3.579.2 .727 1938 Unknown [id number] 2.16.840.1.914943.3.579.2 .1258 1938 Unknown [id number] 2.16.840.1.199210.3.579.2 .1258 1938 Unknown [id number] 2.16.840.1.898152.3.579.2 .1258 1938 Unknown [id number] 2.16840.1.475752.3.579.2 .1258 1938 Unknown [id number] 2.840.1.841421.3.579.2 .1258 1938 Unknown [id number] 2.840.1.895134.3.579.2 .1258 1938 Unknown [id number] 2.840.1.299297.3.579.2 .1258 1938 Unknown [id number] 2.840.1.059631.3.579.2 .1258 1938 Unknown [id number] 2.840.1.500674.3.579.2 .1258 1938 Unknown [id number] 2.840.1.262446.3.579.2 .1258 1938 Unknown [id number] 2.840.1.762572.3.579.2 .1258 1938 Unknown [id number] 2.840.1.596439.3.579.2 .1258 1938 Unknown [id number] 2.16840.1.863401.3.579.2 .1258 1938 Unknown [id number] 2.16840.1.604459.3.579.2 .1258 1938 Unknown [id number] 2.16840.1.689814.3.579.2 .1258 1938 Unknown [id number] 2.16.840.1.177563.3.579.2 .1258 1938 Unknown [id number] 2.16.840.1.139241.3.579.2 .1258 1938 Unknown [id number] 2.16.840.1.656768.3.579.2 .1258 1938 Unknown [id number] 2.16.840.1.177313.3.579.2 .1258 1938 Unknown [id number] 2.16.840.1.022703.3.579.2 .1258 1938 Unknown [id number] 2.16.840.1.515648.3.579.2 .1258 1938 Unknown [id number] 2.16.840.1.417355.3.579.2 .1258 1938 Unknown [id number] 2.840.1.923535.3.579.2 .1259 Medicare Medicare Outpatient [id number] 1A [id number] Unknown [id number] 2.16.840.1.707676.3.579.2 .531 Social History Date Type Detail Facility Start: 06-13-2022 End: 10-05-2023 Tobacco smoking status Never smoked tobacco (finding) [facility] Tobacco smoking status Never [facility] Start: 11-16-2023 End: 04-02-2025 Sex Assigned At Female Rell R[facility]os [facility] Start: 1940 Sex Assigned At Female F [facility] Start: 10-05-2023 Tobacco use and exposure Smokeless tobacco non-user [facility] Start: 11-16-2023 End: 06-18-2025 Alcohol intake Lifetime non-drinker (finding) [facility] Start: 11-16-2023 End: 04-02-2025 History of Social function [facility] Start: 1940 Sex Assigned At Not on file [facility] Functional Status Date Assessment Result Facility 04-14-2024 Functional Status N/A [facility] 01-23-2024 Functional Status N/A [facility] Clinical Notes 06-01-2022 to 06-18-2025 iSlvino Carey, TESFAYE - 06/18/2025 11:40 AM EDTSilvino Carey, TESFAYEM - 04/02/2025 11:30 AM Efrain Carey, CHARLEY - 02/26/2025 9:10 AM EDTEskip Horne MD - 02/03/2025 10:40 AM EDT Note Date & Type Note Facility 06-18-2025 History of Present illness Narrative Patient: Alicia Bullock : 1940 PCP: Santiago Patricio MD SUBJECTIVE This is a 85 y.o. female that presents today with a CC of elongated, thick nails. Pt states nails have been elongated and thick for many years and cause pain with ambulation in shoegear. Pt has tried previous treatment with minimal relief. Pt presents today for nail care and treatment. Patient presents today for follow up of skin lesion/neoplasm of unknown origin to the right foot Pt states that previous treatment of acid tx with some improvement Pt rates pain the pain on a 1-10 scale an intensity of 3 Pt presents today for followup. 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 digit with possible flexor tenotomy discussion in the past Allergies: No Known Allergies Past Medical History: Past Medical History: Diagnosis Date Actinic keratosis Diabetes (HCC) DVT (deep venous thrombosis) (HCC) HX DVT Hypertension Hypoglycemia Squamous cell skin cancer TIA (transient ischemic attack) Medications: Current Outpatient Medications: acetaminophen (Tylenol 8 Hour Arthritis Pain) 650 MG ER tablet, every 8 (eight) hours., Disp: , Rfl: alendronate (Fosamax) 70 MG tablet, , Disp: , Rfl: ALPRAZolam (Xanax) 0.25 MG tablet, every 8 (eight) hours, Disp: , Rfl: amLODIPine (Norvasc) 5 MG tablet, , Disp: , Rfl: aspirin 81 MG chewable tablet, 1 (one) time each day at the same time., Disp: , Rfl: cetirizine (ZyrTEC) 10 MG chewable tablet, Chew Daily, Disp: , Rfl: cetirizine (ZyrTEC) 10 MG tablet, TAKE 1 TABLET BY MOUTH EVERY DAY FOR 30 DAYS, Disp: , Rfl: [facility] E Oil 45 MG/0.25ML oil, USE 1 ML TOPICALLY ONCE DAILY FOR 30 DAYS, Disp: , Rfl: diclofenac (Voltaren) 75 MG EC tablet, every 12 (twelve) hours, Disp: , Rfl: dicyclomine (Bentyl) 20 MG tablet, Take 20 mg by mouth in the morning and 20 mg in the evening and 20 mg before bedtime., Disp: , Rfl: DULoxetine (Cymbalta) [address] capsule, Take 30 mg by mouth in the morning and 30 mg before bedtime. Do not crush or chew. ., Disp: , Rfl: estradiol (Estrace) 0.5 MG tablet, 1 tablet Orally, Disp: , Rfl: Glucosamine-Chondroitin (OSTEO BI-FLEX REGULAR STRENGTH PO), Oral, Daily, 0 Refill(s), Disp: , Rfl: hyoscyamine (Levsin) 0.125 MG SL tablet, DISSOLVE 1 TABLET UNDER TONGUE 4 TIMES A DAY NEEDED, Disp: , Rfl: hyoscyamine (Levsin) 0.125 MG tablet, every 4 (four) hours, Disp: , Rfl: levothyroxine (Synthroid, Levoxyl) 50 MCG tablet, , Disp: , Rfl: liothyronine (Cytomel) 5 MCG tablet, 5 mcg, Disp: , Rfl: losartan (Cozaar) 100 MG tablet, 1 (one) time each day at the same time, Disp: , Rfl: metoprolol tartrate (Lopressor) 50 MG tablet, , Disp: , Rfl: omeprazole (PriLOSEC) [address] capsule, 1 (one) time each day at the same time., Disp: , Rfl: Restoril 15 MG capsule, 1 (one) time each day at the same time, Disp: , Rfl: rifAXIMin (Xifaxan) 550 MG tablet, Take 550 mg by mouth, Disp: , Rfl: tacrolimus (Protopic) 0.1 % ointment, Apply to face and neck twice a day when itchy, hold when clear/ 90 day supply, Disp: 90 g, Rfl: 2 triamcinolone (Kenalog) 0.1 % cream, Apply topically 2 (two) times a day, Disp: , Rfl: Social History: Social History Socioeconomic History Marital status: Spouse name: Not on file Number of children: Not on file Years of education: Not on file Highest education level: Not on file Occupational History Not on file Tobacco Use Smoking status: Never Smokeless tobacco: Never Vaping Use Vaping status: Unknown Substance and Sexual Activity Alcohol use: Never Drug use: Defer Sexual activity: Not on file Other Topics Concern Not on file Social History Narrative Not on file Social Drivers of Health Financial Resource Strain: Not on file Food Insecurity: Not on file Transportation Needs: Not on file Physical Activity: Not on file Stress: Not on file Social Connections: Not on file Intimate Partner Violence: Unknown (12/27/2023) Received from [facility] Safety & Environment Fear of Current or Ex-Partner: Not on file Emotionally Abused: Not on file Physically Abused: Not on file Sexually Abused: Not on file Physically or Sexually Abused: Not on file Housing Stability: Not on file ROS: General: denies fever, chills, fatigue, malaise Gastrointestinal: denies abdominal pain, ulcers, or changes in appetite or bowel habits Musculoskeletal: Positive history of generalized arthritis, denies loss of strength, pain to hip, knees, back Cardiovascular: denies CP, palpitations, irregular rhythms OBJECTIVE LE EXAM: DERM: Elongated thick yellow crumbly nails digits 1 through 10. Positive hair growth b/l feet. Rubor noted to the right 2nd PIPJ region of toe with distal right 2nd digit 0.1 cm x 0.1 cm round nummular lesion VASC: Positive palpable pedal pulses bilaterally NEURO: Gross sensation intact to bilateral feet ORTHO: Positive pain on palpation to toenails of the left 1,2,3,4,5 toes and right 1,2,3,4,5 toes Flexion deformity of right 2nd toe at DIPJ region with rubor to DIPJ Positive pain on palpation of right 2nd toe lesion ASSESSMENT 1. Verruca plantaris 2. Foot pain, right 3. Acquired deformity of right toe 4. Pain due to onychomycosis of toenails of both feet PLAN Discussed proper foot care with patient today. Debride nails in length and thickness digits 1 through 10 Application of salinocaine acid medication to lesion/lesions located at right foot Informed pt of risks and benefits of procedure including high reoccurence rate, infection, pain and consent given. Application of DSD post procedure. . Patient may want to be scheduled for surgical intervention in the near future. Discussed possible right 2nd digit flexor tenotomy future and patient to call if decides to have procedure Silvino Carey DPM documented in this encounter [facility] 04-02-2025 History of Present illness Narrative Patient: Alicia Bullock : 1940 PCP: Santiago Patricio MD SUBJECTIVE This is a 84 y.o. female that presents today with a CC of elongated, thick nails. Pt states nails have been elongated and thick for many years and cause pain with ambulation in shoegear. Pt has tried previous treatment with minimal relief. Pt presents today for nail care and treatment. Patient presents today for follow up of skin lesion/neoplasm of unknown origin to the right foot Pt states that previous treatment of acid tx with some improvement Pt rates pain the pain on a 1-10 scale an intensity of 4 Pt presents today for followup. 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 digit with possible flexor tenotomy discussion in the past Allergies: No Known Allergies Past Medical History: Past Medical History: Diagnosis Date Actinic keratosis Diabetes (CMS/HCC) DVT (deep venous thrombosis) (CMS/HCC) HX DVT Hypertension (CMS/HCC) Hypoglycemia Squamous cell skin cancer TIA (transient ischemic attack) Medications: Current Outpatient Medications: acetaminophen (Tylenol 8 Hour Arthritis Pain) 650 MG ER tablet, every 8 (eight) hours., Disp: , Rfl: alendronate (Fosamax) 70 MG tablet, , Disp: , Rfl: ALPRAZolam (Xanax) 0.25 MG tablet, every 8 (eight) hours, Disp: , Rfl: amLODIPine (Norvasc) 5 MG tablet, , Disp: , Rfl: aspirin 81 MG chewable tablet, 1 (one) time each day at the same time., Disp: , Rfl: cetirizine (ZyrTEC) 10 MG chewable tablet, Chew Daily, Disp: , Rfl: cetirizine (ZyrTEC) 10 MG tablet, TAKE 1 TABLET BY MOUTH EVERY DAY FOR 30 DAYS, Disp: , Rfl: [facility] E Oil 45 MG/0.25ML oil, USE 1 ML TOPICALLY ONCE DAILY FOR 30 DAYS, Disp: , Rfl: diclofenac (Voltaren) 75 MG EC tablet, every 12 (twelve) hours, Disp: , Rfl: dicyclomine (Bentyl) 20 MG tablet, Take 20 mg by mouth in the morning and 20 mg in the evening and 20 mg before bedtime., Disp: , Rfl: DULoxetine (Cymbalta) [address] capsule, Take 30 mg by mouth in the morning and 30 mg before bedtime. Do not crush or chew. ., Disp: , Rfl: estradiol (Estrace) 0.5 MG tablet, 1 tablet Orally, Disp: , Rfl: Glucosamine-Chondroitin (OSTEO BI-FLEX REGULAR STRENGTH PO), Oral, Daily, 0 Refill(s), Disp: , Rfl: hyoscyamine (Levsin) 0.125 MG SL tablet, DISSOLVE 1 TABLET UNDER TONGUE 4 TIMES A DAY NEEDED, Disp: , Rfl: hyoscyamine (Levsin) 0.125 MG tablet, every 4 (four) hours, Disp: , Rfl: levothyroxine (Synthroid, Levoxyl) 50 MCG tablet, , Disp: , Rfl: liothyronine (Cytomel) 5 MCG tablet, 5 mcg, Disp: , Rfl: losartan (Cozaar) 100 MG tablet, 1 (one) time each day at the same time, Disp: , Rfl: metoprolol tartrate (Lopressor) 50 MG tablet, , Disp: , Rfl: omeprazole (PriLOSEC) [address] capsule, 1 (one) time each day at the same time., Disp: , Rfl: Restoril 15 MG capsule, 1 (one) time each day at the same time, Disp: , Rfl: rifAXIMin (Xifaxan) 550 MG tablet, Take 550 mg by mouth, Disp: , Rfl: tacrolimus (Protopic) 0.1 % ointment, Apply to face and neck twice a day when itchy, hold when clear/ 90 day supply, Disp: 90 g, Rfl: 2 triamcinolone (Kenalog) 0.1 % cream, Apply topically 2 (two) times a day, Disp: , Rfl: Social History: Social History Socioeconomic History Marital status: Spouse name: Not on file Number of children: Not on file Years of education: Not on file Highest education level: Not on file Occupational History Not on file Tobacco Use Smoking status: Never Smokeless tobacco: Never Vaping Use Vaping status: Unknown Substance and Sexual Activity Alcohol use: Never Drug use: Defer Sexual activity: Not on file Other Topics Concern Not on file Social History Narrative Not on file Social Drivers of Health Financial Resource Strain: Not on file Food Insecurity: Not on file Transportation Needs: Not on file Physical Activity: Not on file Stress: Not on file Social Connections: Not on file Intimate Partner Violence: Unknown (12/27/2023) Received from [facility] Safety & Environment Fear of Current or Ex-Partner: Not on file Emotionally Abused: Not on file Physically Abused: Not on file Sexually Abused: Not on file Physically or Sexually Abused: Not on file Housing Stability: Not on file ROS: General: denies fever, chills, fatigue, malaise Gastrointestinal: denies abdominal pain, ulcers, or changes in appetite or bowel habits Musculoskeletal: Positive history of generalized arthritis, denies loss of strength, pain to hip, knees, back Cardiovascular: denies CP, palpitations, irregular rhythms OBJECTIVE LE EXAM: DERM: Elongated thick yellow crumbly nails digits 1 through 10. Positive hair growth b/l feet. Rubor noted to the right 2nd PIPJ region of toe with distal right 2nd digit 0.1 cm x 0.2 cm round nummular lesion VASC: Positive palpable pedal pulses bilaterally NEURO: Gross sensation intact to bilateral feet ORTHO: Positive pain on palpation to nails 1 through 10 Flexion deformity of right 2nd toe at DIPJ region with rubor to DIPJ Positive pain on palpation of right 2nd toe lesion ASSESSMENT 1. Pain due to onychomycosis of toenails of both feet 2. Verruca plantaris 3. Foot pain, right 4. Acquired deformity of right toe PLAN Discussed proper foot care with patient today. Debride nails in length and thickness digits 1 through 10 Application of salinocaine acid medication to lesion/lesions located at right foot Informed pt of risks and benefits of procedure including high reoccurence rate, infection, pain and consent given. Application of DSD post procedure. . Patient may want to be scheduled for surgical intervention in the near future. Discussed possible right 2nd digit flexor tenotomy future and patient to call if decides to have procedure Silvino Carey DPM documented in this encounter [facility] 02-26-2025 History of Present illness Narrative Patient presents today with who is having cardiac event an chest pain documented in this encounter [facility] 02-03-2025 History of Present illness Narrative Follow up Diagnosis: Actinic Keratosis Location: Left cheek Last visit: 6 weeks ago Symptoms: red Status: patient feels this is gone Procedure performed: Shave biopsy Date of procedure: 12/16/24 All pertinent medical history, medications, and allergies were reviewed. General Exam: alert, oriented to person, place, and time, normal affect, well appearing Unaccompanied A focused exam completed based on patient reported problems, see below: 1. Actinic keratosis Left Cheek Faint scale at biopsy site S/P biopsy 6 weeks ago, pathology showing actinic keratosis. Upon evaluating biopsy site, there is a slight hyperkeratotic area left behind. Discussed treatment with cryotherapy. It was emphasized that any treated lesions that fail to resolve should be re-evaluated. Cryotherapy performed today; see procedure note Diagnosis: Actinic keratosis Indication: Precancerous Location: see skin exam Consent: Verbal consent was obtained and risks were discussed, including, but not limited to risks of scarring, darker or biometry teacher pigmentary changes, recurrence, incomplete removal and infection. Method: Liquid nitrogen was used to treat the lesion(s) with two 5-10 second freeze-thaw cycles. Number of lesions treated: 1 Post-procedure instructions: Instructions were given orally and in writing. The office will be contacted if the lesion fails to resolve despite treatment, or if a side effect develops such as abnormal crusting, scabbing, redness or tenderness Cryotherapy, skin lesion - Left Cheek Next Visit: as scheduled documented in this encounter [facility] 12-29-2024 History of Present illness Narrative Images from the original note were not included. HISTORY OF PRESENT ILLNESS: EST PT Alicia Bullock is an 84 y.o. @ female. (EST PT) RT HAND FX 06/28/24 (6 MTHS ), WAS WORKING OUTSIDE AND HAD A SCRAPER, IT KICKED BACK IN HER HAND. HEARD A SNAP. XRAY TODAY EPIC 12/29/24 XRAY EPIC 10/06/24 XRAY EPIC 09/09/24 XRAY EPIC 08/19/24 XRAY EPIC 07/22/24 XRAY EPIC 07/03/24 XRAY [facility] 07/02/24 (PUSHED THROUGH PACS) WORKING ON GENTLE ROM- NOTES SOME HAND DISCOMFORT- PT FEELS SYMPTOMS ARE MORE FROM ARTHRITIS POSSIBLY- DOES SOME EXERCISES-+TRAMADOL; TAKES FOR HER BACK RT HANDED. ALLERGIES: No Known Allergies HOME MEDICATIONS: Current Outpatient Medications Medication Instructions acetaminophen (Tylenol 8 Hour Arthritis Pain) 650 MG ER tablet Every 8 hours alendronate (Fosamax) 70 MG tablet ALPRAZolam (Xanax) 0.25 MG tablet Every 8 hours amLODIPine (Norvasc) 5 MG tablet aspirin 81 MG chewable tablet Every 24 hours cetirizine (ZyrTEC) 10 MG chewable tablet Daily cetirizine (ZyrTEC) 10 MG tablet TAKE 1 TABLET BY MOUTH EVERY DAY FOR 30 DAYS [facility] E Oil 45 MG/0.25ML oil USE 1 ML TOPICALLY ONCE DAILY FOR 30 DAYS diclofenac (Voltaren) 75 MG EC tablet Every 12 hours dicyclomine (BENTYL) 20 mg, 3 times daily DULoxetine (CYMBALTA) 30 mg, 2 times daily estradiol (Estrace) 0.5 MG tablet 1 tablet [...] capsule Every 24 hours rifAXIMin (XIFAXAN) 550 mg tacrolimus (Protopic) 0.1 % ointment Apply to face and neck twice a day when itchy, hold when clear/ 90 day supply triamcinolone (Kenalog) 0.1 % cream 2 times daily PHYSICAL EXAM: Right Hand Exam Tenderness Right hand tenderness location: aching in dorsal aspect of hand at night/with heavy activity. Range of Motion Wrist Extension: normal Flexion: normal Pronation: normal Supination: normal Muscle Strength Wrist extension: 5/5 Wrist flexion: 5/5 Tattooer: 4/5 Other Erythema: absent Sensation: normal Pulse: present Comments: Able to make full fist Vitals: There is no height or weight on file to calculate BMI. Tobacco Use: Low Risk (12/16/2024) Patient History Smoking Tobacco Use: Never Smokeless Tobacco Use: Never Passive Exposure: Not on file Alcohol Use: Not on file IMAGING: XR hand 3+ views right Imaging Result: 12/29/2024: Multiple views of right hand demontstrate healing 5th MC shaft fracture in acceptable position with increased callus formation when compared to prior x-ray. There was no other acute bony process including but not limited to separate fracture and/or dislocation. Impression: Healing right 5th MC shaft fracture Calixto Barba APRN-JESSENIA Procedures Orders Placed This Encounter Procedures XR hand 3+ views right Order Specific Question: Reason for exam: Answer: PAIN ASSESSMENT: ICD-10-CM 1. Nondisplaced fracture of shaft of fifth metacarpal bone, right hand, subsequent encounter for fracture with routine healing S62.356D XR hand 3+ views right PLAN: I reviewed xray findings with the patient and discussed treatment options, answered questions. I recommend that patient use Voltaren gel for diffuse aching pain in hand as this is likely due to her arthritis. She will continue increasing her activity and call with any worsening symptoms. She will follow up as needed. Questions answered in laymen terms at the bedside. The diagnosis, home exercise plan and any ongoing restrictions/ recommendations reviewed. If unable to be reached in office, I recommend evaluation at nearest Emergency Room if any symptoms worsened or new symptoms develop for requiring urgent evaluation. Calixto SUAZO documented in this encounter [facility] 12-16-2024 History of Present illness Narrative Images from the original note were not included. Follow up Diagnosis: Actinic Keratosis Location: left cheek Procedure performed: cryotherapy Status: unresolved Date of procedure: 08/14/2024 Established patient All pertinent medical history, medications, and allergies were reviewed. General Exam: alert, oriented to person, place, and time, normal affect, well appearing Accompanied by spouse A focused exam completed based on patient reported problems, see below: 1. Neoplasm of unspecified behavior of bone, soft tissue, and skin Left cheek Hyperkeratotic papule Lesion biopsy Type of biopsy: tangential Informed consent: discussed and consent obtained Informed consent comment: The risks and benefits of the biopsy were discussed. Risks include but are not limited to bleeding, infection, scarring, pain, and nerve damage. An opportunity to ask questions prior to the procedure was permitted and all questions were answered. Patient was prepped and draped in usual sterile fashion: area cleansed with alcohol. Anesthesia: the lesion was anesthetized in a standard fashion Anesthetic: 1% lidocaine w/ epinephrine 1-100,000 buffered w/ 8.4% NaHCO3 Instrument used: DermaBlade Hemostasis achieved with: electrodesiccation Outcome: patient tolerated procedure well Outcome comment: The specimen was placed in a prelabeled formalin container to be sent for pathology Post-procedure details: sterile dressing applied and wound care instructions given Post-procedure details comment: Emphasized need to contact clinic for any signs of infection, uncontrollable bleeding, or complications. Dressing type: bandage Additional details: Photo taken Amount of lidocaine used: 1.0 cc Specimen A - Dermatopathology exam Differential Diagnosis: AK vs SCC Check Margins: No Size of lesion: 0.3 x 0.2 cm Next Visit: as scheduled documented in this encounter [facility] 11-20-2024 History of Present illness Narrative Patient: Alicia Bullock : 1940 PCP: Santiago Patricio MD SUBJECTIVE This is a 84 y.o. female that presents today with a CC of elongated, thick nails. Pt states nails have been elongated and thick for many years and cause pain with ambulation in shoegear. Pt has tried previous treatment with minimal relief. Pt presents today for nail care and treatment. Patient presents today for follow up of skin lesion/neoplasm of unknown origin to the right foot Pt states that previous treatment of acid tx with some improvement Pt rates pain the pain on a 1-10 scale an intensity of 3 Pt presents today for followup. Patient has painful hammertoe deformity to right 2nd digit Patient has longstanding flexion deformity of the right 2nd toe and still has painful ambulation with shoe gear. Discussed sx on last visit of flexor tenotomy. Patient states it has been feeling better Allergies: No Known Allergies Past Medical History: Past Medical History: Diagnosis Date Actinic keratosis Diabetes (CMS/HCC) DVT (deep venous thrombosis) (CMS/HCC) HX DVT Hypertension (CMS/HCC) Hypoglycemia Squamous cell skin cancer TIA (transient ischemic attack) Medications: Current Outpatient Medications: acetaminophen (Tylenol 8 Hour Arthritis Pain) 650 MG ER tablet, every 8 (eight) hours., Disp: , Rfl: alendronate (Fosamax) 70 MG tablet, , Disp: , Rfl: ALPRAZolam (Xanax) 0.25 MG tablet, every 8 (eight) hours, Disp: , Rfl: amLODIPine (Norvasc) 5 MG tablet, , Disp: , Rfl: aspirin 81 MG chewable tablet, 1 (one) time each day at the same time., Disp: , Rfl: cetirizine (ZyrTEC) 10 MG chewable tablet, Chew Daily, Disp: , Rfl: cetirizine (ZyrTEC) 10 MG tablet, TAKE 1 TABLET BY MOUTH EVERY DAY FOR 30 DAYS, Disp: , Rfl: [facility] E Oil 45 MG/0.25ML oil, USE 1 ML TOPICALLY ONCE DAILY FOR 30 DAYS, Disp: , Rfl: diclofenac (Voltaren) 75 MG EC tablet, every 12 (twelve) hours, Disp: , Rfl: dicyclomine (Bentyl) 20 MG tablet, Take 20 mg by mouth in the morning and 20 mg in the evening and 20 mg before bedtime., Disp: , Rfl: DULoxetine (Cymbalta) [address] capsule, Take 30 mg by mouth in the morning and 30 mg before bedtime. Do not crush or chew. ., Disp: , Rfl: estradiol (Estrace) 0.5 MG tablet, 1 tablet Orally, Disp: , Rfl: Glucosamine-Chondroitin (OSTEO BI-FLEX REGULAR STRENGTH PO), Oral, Daily, 0 Refill(s), Disp: , Rfl: hyoscyamine (Levsin) 0.125 MG SL tablet, DISSOLVE 1 TABLET UNDER TONGUE 4 TIMES A DAY NEEDED, Disp: , Rfl: hyoscyamine (Levsin) 0.125 MG tablet, every 4 (four) hours, Disp: , Rfl: levothyroxine (Synthroid, Levoxyl) 50 MCG tablet, , Disp: , Rfl: liothyronine (Cytomel) 5 MCG tablet, 5 mcg, Disp: , Rfl: losartan (Cozaar) 100 MG tablet, 1 (one) time each day at the same time, Disp: , Rfl: metoprolol tartrate (Lopressor) 50 MG tablet, , Disp: , Rfl: omeprazole (PriLOSEC) [address] capsule, 1 (one) time each day at the same time., Disp: , Rfl: Restoril 15 MG capsule, 1 (one) time each day at the same time, Disp: , Rfl: rifAXIMin (Xifaxan) 550 MG tablet, Take 550 mg by mouth, Disp: , Rfl: tacrolimus (Protopic) 0.1 % ointment, Apply to face and neck twice a day when itchy, hold when clear/ 90 day supply, Disp: 90 g, Rfl: 2 triamcinolone (Kenalog) 0.1 % cream, Apply topically 2 (two) times a day, Disp: , Rfl: Social History: Social History Socioeconomic History Marital status: Spouse name: Not on file Number of children: Not on file Years of education: Not on file Highest education level: Not on file Occupational History Not on file Tobacco Use Smoking status: Never Smokeless tobacco: Never Vaping Use Vaping status: Unknown Substance and Sexual Activity Alcohol use: Never Drug use: Defer Sexual activity: Not on file Other Topics Concern Not on file Social History Narrative Not on file Social Drivers of Health Financial Resource Strain: Not on file Food Insecurity: Not on file Transportation Needs: Not on file Physical Activity: Not on file Stress: Not on file Social Connections: Not on file Intimate Partner Violence: Unknown (12/27/2023) [facility] [place] Safety & Environment Fear of Current or Ex-Partner: Not on file Emotionally Abused: Not on file Physically Abused: Not on file Sexually Abused: Not on file Physically or Sexually Abused: Not on file Housing Stability: Not on file ROS: General: denies fever, chills, fatigue, malaise Gastrointestinal: denies abdominal pain, ulcers, or changes in appetite or bowel habits Musculoskeletal: Positive history of generalized arthritis, denies loss of strength, pain to hip, knees, back Cardiovascular: denies CP, palpitations, irregular rhythms OBJECTIVE LE EXAM: DERM: Elongated thick yellow crumbly nails digits 1 through 10. Positive hair growth b/l feet. Rubor noted to the right 2nd PIPJ region of toe with distal right 2nd digit 0.1 cm x 0.2 cm round nummular lesion VASC: Positive palpable pedal pulses bilaterally NEURO: Gross sensation intact to bilateral feet ORTHO: Positive pain on palpation to nails 1 through 10 Flexion deformity of right 2nd toe at DIPJ region with rubor to DIPJ Positive pain on palpation of right 2nd toe lesion ASSESSMENT 1. Pain due to onychomycosis of toenails of both feet 2. Verruca plantaris 3. Foot pain, right 4. Acquired deformity of right toe PLAN Discussed proper foot care with patient today. Debride nails in length and thickness digits 1 through 10 Application of salinocaine acid medication to lesion/lesions located at right foot Informed pt of risks and benefits of procedure including high reoccurence rate, infection, pain and consent given. Application of DSD post procedure. Discussed conservative and surgical treatment options for patient today including postoperative time frame and surgical procedure in detail. Patient may continue with conservative treatments including [id number] anti-inflammatories and other treatments suggested today. Patient may want to be scheduled for surgical intervention in the near future. Discussed possible right 2nd digit flexor tenotomy future and patient to call if decides to have procedure Silvino Carey DPM documented in this encounter [facility] 10-06-2024 History of Present illness Narrative Images from the original note were not included. Chief Complaint Patient presents with Right Hand - Follow-up HISTORY OF PRESENT ILLNESS: Alicia Bullock is an 84 y.o. @ female. (EST PT) RT HAND INJURY 06/28/24 (3 MTHS 1 WK), WAS WORKING OUTSIDE AND HAD A SCRAPER, IT KICKED BACK IN HER HAND. HEARD A SNAP. XRAY TODAY EPIC 10/06/24 XRAY EPIC 09/09/24 XRAY EPIC 08/19/24 XRAY EPIC 07/22/24 XRAY EPIC 07/03/24 XRAY [facility] 07/02/24 (PUSHED THROUGH PACS) WORKING ON GENTLE ROM SHE NOTES GOOD AND BAD DAYS. INCREASED DISCOMFORT IN THE AM THAT IMPROVES THROUGHOUT THE DAY. SHE HAS NOT BEEN LIFTING OR OVERUSING HAND. TAKING TRAMADOL PRN FOR HER BACK. DENIES N/T, SWELLING. DOES NOT WAKE AT HS. ABLE TO MAKE A FIST. RT HANDED. ALLERGIES: No Known Allergies HOME [...] Musculoskeletal Exam Inspection Right Erythema: none Ecchymosis: none Edema: none Deformity: none Palpation Right Dorsal hand - 5th metacarpal tenderness to palpation: distal Palpation additional comments: DENIES PAIN TO PALPATION OF WRIST JOINT. NO SKIN ABRASIONS. SOME RUBBING OVER INDEX [...] XR hand 3+ views right Imaging Result: 10/06/2024 Multiple views of right hand demontstrate healing 5th MC shaft fracture in unchanged position and alignment but increased callus formation when compared to prior x-ray. There was no other acute bony process including but not limited to separate fracture and/or dislocation. 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 Nondisplaced fracture of shaft of fifth metacarpal bone, right hand, subsequent encounter for fracture with routine healing S62.356D XR hand 3+ views right Procedures PLAN: I reviewed xray findings with the patient which demonstrates a well healing 5th MC shaft fracture. I educated patient that her fracture is not fully healed but that she may be developing a fibrous union. She is cleared to work on gentle ROM but should avoid high impact activity with right hand. She will follow up in 12 weeks for RCK and xray. Questions answered in laymen terms at the bedside. The diagnosis, home exercise plan and any ongoing restrictions/ recommendations reviewed. If unable to be reached in office, I recommend evaluation at nearest Emergency Room if any symptoms worsened or new symptoms develop for requiring urgent evaluation. Calixto Barba MACHINE CLOTH MEASURER-[employer]PER[employer] documented in this encounter [facility] 09-09-2024 History of Present illness Narrative Images from the original note were not included. Chief Complaint Patient presents with Right Hand - Follow-up HISTORY OF PRESENT ILLNESS: Alicia Bullock is an 84 y.o. @ female. (EST PT) RT HAND INJURY 06/28/24 (10 WKS 3 DAYS), WAS WORKING OUTSIDE AND HAD A SCRAPER, IT KICKED BACK IN HER HAND. HEARD A SNAP. XRAY TODAY EPIC 09/09/24 XRAY EPIC 08/19/24 XRAY EPIC 07/22/24 XRAY EPIC 07/03/24 XRAY [facility] 07/02/24 (PUSHED THROUGH PACS) PRESENTS IN METACARPAL BLOCK SAC, SORENESS AROUND THUMB. WILL HAVE SOME PAIN IN HAND WHEN SHE WAKES UP, DENIES PAIN THROUGHOUT THE DAY. TAKING TRAMADOL. DENIES N/T, SWELLING. DOES NOT WAKE AT [...] XR hand 3+ views right Imaging Result: 09/09/2024: AP, LAT and Oblique xray of right hand demonstrate healing oblique fracture of right 5th MC shaft in acceptable position and alignment. There is increased callus compared to previous xray but there is still not a definitive union of fracture. Impression: Healing 5th MC shaft fracture Calixto Barba MACHINE [employer]OTH MEASURER-[employer]PER[employer] ASSESSMENT: ICD-10-CM 1. Nondisplaced fracture of shaft of fifth metacarpal bone, right hand, subsequent encounter for fracture with routine healing S62.356D XR hand 3+ views right Procedures PLAN: I reviewed xray findings with the patient. She states that she has no pain over fracture site. I educated patient that her fracture is not healed but that she may be developing a fibrous union. She is cleared to come out of cast and work on gentle ROM. No heavy lifting, pushing pulling with right hand. Follow up in 4 weeks for RCK and xray. Questions answered in laymen terms at the bedside. The diagnosis, home exercise plan and any ongoing restrictions/ recommendations reviewed. If unable to be reached in office, I recommend evaluation at nearest Emergency Room if any symptoms worsened or new symptoms develop for requiring urgent evaluation. Calixto Barba APRN-SUPERVISOR [employer] documented in this encounter [facility] 09-04-2024 History of Present illness Narrative Patient: Alicia Bullock : 1940 PCP: Santiago Patricio MD SUBJECTIVE This is a 84 y.o. female that presents today with a CC of elongated, thick nails. Pt states nails have been elongated and thick for many years and cause pain with ambulation in shoegear. Pt has tried previous treatment with minimal relief. Pt presents today for nail care and treatment. Patient presents today for follow up of skin lesion/neoplasm of unknown origin to the right foot Pt states that previous treatment of acid tx with some improvement Pt rates pain the pain on a 1-10 scale an intensity of 4 Pt presents today for followup. Patient has painful hammertoe deformity to right 2nd digit Patient has longstanding flexion deformity of the right 2nd toe and still has painful ambulation with shoe gear Allergies: No Known Allergies Past Medical History: Past Medical History: Diagnosis Date Actinic keratosis Diabetes (CMS/HCC) DVT (deep venous thrombosis) (CMS/HCC) HX DVT Hypertension ([facility]) Hypoglycemia Squamous cell skin cancer TIA (transient ischemic attack) Medications: Current Outpatient Medications: acetaminophen (Tylenol 8 Hour Arthritis Pain) 650 MG ER tablet, every 8 (eight) hours., Disp: , Rfl: alendronate (Fosamax) 70 MG tablet, , Disp: , Rfl: ALPRAZolam (Xanax) 0.25 MG tablet, every 8 (eight) hours, Disp: , Rfl: amLODIPine (Norvasc) 5 MG tablet, , Disp: , Rfl: aspirin 81 MG chewable tablet, 1 (one) time each day at the same time., Disp: , Rfl: cetirizine (ZyrTEC) 10 MG chewable tablet, Chew Daily, Disp: , Rfl: cetirizine (ZyrTEC) 10 MG tablet, TAKE 1 TABLET BY MOUTH EVERY DAY FOR 30 DAYS, Disp: , Rfl: [facility]S E Oil 45 MG/0.25ML oil, USE 1 ML TOPICALLY ONCE DAILY FOR 30 DAYS, Disp: , Rfl: diclofenac (Voltaren) 75 MG EC tablet, every 12 (twelve) hours, Disp: , Rfl: dicyclomine (Bentyl) 20 MG tablet, Take 20 mg by mouth in the morning and 20 mg in the evening and 20 mg before bedtime., Disp: , Rfl: DULoxetine (Cymbalta) [address] capsule, Take 30 mg by mouth in the morning and 30 mg before bedtime. Do not crush or chew. ., Disp: , Rfl: estradiol (Estrace) 0.5 MG tablet, 1 tablet Orally, Disp: , Rfl: Glucosamine-Chondroitin (OSTEO BI-FLEX REGULAR STRENGTH PO), Oral, Daily, 0 Refill(s), Disp: , Rfl: hyoscyamine (Levsin) 0.125 MG SL tablet, DISSOLVE 1 TABLET UNDER TONGUE 4 TIMES A DAY NEEDED, Disp: , Rfl: hyoscyamine (Levsin) 0.125 MG tablet, every 4 (four) hours, Disp: , Rfl: levothyroxine (Synthroid, Levoxyl) 50 MCG tablet, , Disp: , Rfl: liothyronine (Cytomel) 5 MCG tablet, 5 mcg, Disp: , Rfl: losartan (Cozaar) 100 MG tablet, 1 (one) time each day at the same time, Disp: , Rfl: metoprolol tartrate (Lopressor) 50 MG tablet, , Disp: , Rfl: omeprazole (PriLOSEC) [address] capsule, 1 (one) time each day at the same time., Disp: , Rfl: Restoril 15 MG capsule, 1 (one) time each day at the same time, Disp: , Rfl: rifAXIMin (Xifaxan) 550 MG tablet, Take 550 mg by mouth, Disp: , Rfl: tacrolimus (Protopic) 0.1 % ointment, Apply to face and neck twice a day when itchy, hold when clear/ 90 day supply, Disp: 90 g, Rfl: 2 triamcinolone (Kenalog) 0.1 % cream, Apply topically 2 (two) times a day, Disp: , Rfl: Social History: Social History Socioeconomic History Marital status: Spouse name: Not on file Number of children: Not on file Years of education: Not on file Highest education level: Not on file Occupational History Not on file Tobacco Use Smoking status: Never Smokeless tobacco: Never Vaping Use Vaping status: Unknown Substance and Sexual Activity Alcohol use: Never Drug use: Defer Sexual activity: Not on file Other Topics Concern Not on file Social History Narrative Not on file Social Drivers of Health Financial Resource Strain: Not on file Food Insecurity: Not on file Transportation Needs: Not on file Physical Activity: Not on file Stress: Not on file Social Connections: Not on file Intimate Partner Violence: Unknown (12/27/2023) Received from [facility] [place] [employer] Fear of Current or Ex-Partner: Not on file Emotionally Abused: Not on file Physically Abused: Not on file Sexually Abused: Not on file Physically or Sexually Abused: Not on file Housing Stability: Not on file ROS: General: denies fever, chills, fatigue, malaise Gastrointestinal: denies abdominal pain, ulcers, or changes in appetite or bowel habits Musculoskeletal: Positive history of generalized arthritis, denies loss of strength, pain to hip, knees, back Cardiovascular: denies CP, palpitations, irregular rhythms OBJECTIVE LE EXAM: DERM: Elongated thick yellow crumbly nails digits 1 through 10. Positive hair growth b/l feet. Rubor noted to the right 2nd PIPJ region of toe with distal right 2nd digit 0.2 cm x 0.2 cm round nummular lesion VASC: Positive palpable pedal pulses bilaterally NEURO: Gross sensation intact to bilateral feet ORTHO: Positive pain on palpation to nails 1 through 10 Flexion deformity of right 2nd toe at DIPJ region with rubor to DIPJ Positive pain on palpation of right 2nd toe lesion ASSESSMENT 1. Acquired deformity of right toe 2. Verruca plantaris 3. Foot pain, right 4. Pain due to onychomycosis of toenails of both feet PLAN Discussed proper foot care with patient today. Debride nails in length and thickness digits 1 through 10 Application of salinocaine acid medication to lesion/lesions located at right foot Informed pt of risks and benefits of procedure including high reoccurence rate, infection, pain and consent given. Application of DSD post procedure. Discussed conservative and surgical treatment options for patient today including postoperative time frame and surgical procedure in detail. Patient may continue with conservative treatments including [id number] anti-inflammatories and other treatments suggested today. Patient may want to be scheduled for surgical intervention in the near future. Discussed possible right 2nd digit flexor tenotomy future and patient to call if decides to have procedure Silvino Carey DPM documented in this encounter [facility] 08-19-2024 History of Present illness Narrative Images from the original note were not included. Chief Complaint Patient presents with Right Hand - Follow-up HISTORY OF PRESENT ILLNESS: Alicia Bullock is an 84 y.o. @ female. [...] Healing 5th MC shaft fracture Calixto Barba MACHINE [employer]OTH MEASURER-[employer]PER[employer] ASSESSMENT: ICD-10-CM 1. Nondisplaced fracture of shaft [...] develop for requiring urgent evaluation. Calixto Barba MACHINE [employer]OTH MEAS[employer]ER-[employer] documented in this encounter [facility] 08-14-2024 History of Present illness Narrative [...] limited to risks of scarring, darker or biometry teacher pigmentary changes, recurrence, incomplete removal and infection. [...] 4. Seborrheic keratosis, inflamed Left Anterior Neck [place] and brown stuck on verrucous scaly papule [...] limited to risks of scarring, darker or biometry teacher pigmentary changes, recurrence, incomplete removal and infection. [...] Visit: 1 year documented in this encounter [facility] 08-13-2024 History of Present illness Narrative Images from the original note were not included. HISTORY OF PRESENT ILLNESS: EST PT Alicia Bullock is an 84 y.o. @ female. (EST PT) HERE FOR BIENNIAL CHECK OF (L) TKA 10/24/11 (~13YRS) XRAYS DONE TODAY, 08/13/24 IN [facility] NO BONE SCAN FINISHED PHYSICAL THERAPY [...] Job Aguilar D.O. documented in this encounter [facility] 07-22-2024 History of Present illness Narrative Images from the original note were not included. Chief Complaint Patient presents with Right Hand - Follow-up HISTORY OF PRESENT ILLNESS: Alicia Bullock is an 84 y.o. @ female. (EST PT) RT HAND INJURY 06/28/24 (3 WKS 3 DAYS), WAS WORKING OUTSIDE AND HAD A SCRAPER, IT KICKED BACK IN HER HAND. HEARD A SNAP. XRAY TODAY CHANGE 07/22/24 XRAY CHANGE 07/03/24 XRAY [facility] 07/02/24 (PUSHED THROUGH PACS) PRESENTS IN ULNAR GUTTER SAC, RUBBING NEAR THUMB AND IN BETWEEN FINGERS. RARELY HAS PAIN. NO PAIN MEDS. DENIES N/T, SWELLING. HAS JAMMED/CAUGHT HER RF. DOES NOT WAKE AT HS. RT HANDED. [...] ML TOPICALLY ONCE DAILY FOR 30 DAYS dicyclomine (BENTYL) 20 mg, Oral, 3 times [...] OF WRIST JOINT. CAST REMOVED, NO SKIN ABRASIONS Range of Motion Range of motion additional [...] XR hand 3+ views right Imaging Result: Imaging Result: Multiple views of right hand showed fracture through the Shaft of the fifth metacarpal to be in unchanged position and alignment with increased callus formation at the fracture site compared to prior x-ray. There was no other acute bony process including but not limited to separate fracture and/or dislocation. Impression: Healing fracture Shaft of Right fifth metacarpal ASSESSMENT: ICD-10-CM 1. Nondisplaced fracture of shaft of fifth metacarpal bone, right hand, subsequent encounter for fracture with routine healing S62.356D XR hand 3+ views right Procedures PLAN: I reviewed xray findings with the patient and discussed fracture care and treatment. Answered all questions. Also discussed risks for non union. I recommend repeat cast at this time but patient is requesting metacarpal block cast as she has rubbing [...] develop for requiring urgent evaluation. Calixto Barba MACHINE [employer]OTH MEASURER-[employer]PER[employer] documented in this encounter [facility] 07-03-2024 History of Present illness Narrative Associated Order(s): Cast / Splint / Fx Post-Procedure Diagnose(s): Nondisplaced fracture of shaft of fifth metacarpal bone, right hand, initial encounter for closed fracture Images from the original note were not included. Chief Complaint Patient presents with Right Hand - Pain HISTORY OF PRESENT ILLNESS: Alicia Bullock is an 84 y.o. @ female. (EST W/JOE, NEW PROBLEM) DR PATRICIO REFERRAL. RT HAND INJURY 06/28/24 (5 DAYS), WAS WORKING OUTSIDE AND HAD A SCRAPER, IT KICKED BACK IN HER HAND. HEARD A SNAP. XRAY TODAY CHANGE 07/03/24 XRAY [facility] 07/02/24 (PUSHED THROUGH PACS) PAIN OVER 5TH MC, WORSE WITH USE. NO PAIN MEDS. USING ICE. DENIES N/T. ADMITS SWELLING. DOES NOT WAKE AT HS. PAIN WITH LIFTING. RT HANDED. ALLERGIES: No Known Allergies HOME [...] ML TOPICALLY ONCE DAILY FOR 30 DAYS dicyclomine (BENTYL) 20 mg, Oral, 3 times [...] comments: DENIES PAIN TO PALPATION OF WRIST JOINT Range of Motion Range of motion additional [...] XR hand 3+ views right Imaging Result: Multiple views of right hand showed a fifth metacarpal shaft fracture. There was no other acute verena process including but not limited to separate fracture or dislocation. Impression: right fifth metacarpal shaft fracture ASSESSMENT: ICD-10-CM 1. Nondisplaced fracture of shaft of fifth metacarpal bone, right hand, initial encounter for closed fracture S62.356A Cast / Splint / Fx 2. Right hand pain M79.641 XR hand 3+ views right Cast / Splint / Fx Date/Time: 07/03/2024 4:09 PM Performed by: Calixto Barba NP Authorized by: Calixto Barba NP Consent given by: patient Injury Location details: right hand Fracture type: fifth metacarpal fracture Pre-procedure assessment Distal perfusion: normal Distal sensation: normal Range of motion: reduced Procedure Manipulation performed? no manipulation performed Immobilization: cast Cast type: short arm (ulnar gutter) Supplies used: Ortho-Glass and cotton padding (2 rolls used) Post-procedure assessment neurovascularly intact Range of motion: unchanged Patient tolerance: patient tolerated the procedure well with no immediate complications Comments Discussed importance of Ice and elevation of casted extremity: Cast Care reviewed: PLAN: I reviewed xray findings from [facility] and our office with the patient and discussed fracture care and treatment. Answered all questions. Also discussed risks for non union. I do not believe that she has a scapholunate ligament injury. I recommend that patient be placed in well molded ulnar gutter SAC. Patient verbalized understanding and cast was applied with 2 rolls of cast material. I reviewed with the patient cast care and signs and symptoms of complications and what to do if any occur. The patient is advised to seek medical attention or call if any problems or concerns. Follow up in 3-4 weeks for Rck, cast removal and xray. Questions answered in laymen terms at the bedside. The diagnosis, home exercise plan and any ongoing restrictions/ recommendations reviewed. If unable to be reached in office, I recommend evaluation at nearest Emergency Room if any symptoms worsened or new symptoms develop for requiring urgent evaluation. 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 female that presents today with a CC of elongated, thick nails. Pt states nails have been elongated and thick for many years and cause pain with ambulation in shoegear. Pt has tried previous treatment with minimal relief. Pt presents today for nail care and treatment. Patient presents today for follow up of skin lesion/neoplasm of unknown origin to the right foot Pt states that previous treatment of acid tx with some improvement Pt rates pain the pain on a 1-10 scale an intensity of 7 Pt presents today for followup. Patient has painful hammertoe deformity to right 2nd digit Allergies: No Known Allergies Past Medical History: Past Medical History: Diagnosis Date Actinic keratosis Diabetes (CMS/HCC) DVT (deep venous thrombosis) (CMS/HCC) HX DVT Hypertension (CMS/HCC) Hypoglycemia TIA (transient ischemic attack) Medications: Current Outpatient Medications: acetaminophen (Tylenol 8 Hour Arthritis Pain) 650 MG ER tablet, every 8 (eight) hours., Disp: , Rfl: alendronate (Fosamax) 70 MG tablet, , Disp: , Rfl: ALPRAZolam (Xanax) 0.25 MG tablet, every 8 (eight) hours, Disp: , Rfl: amLODIPine (Norvasc) 5 MG tablet, , Disp: , Rfl: aspirin 81 MG chewable tablet, 1 (one) time each day at the same time., Disp: , Rfl: cetirizine (ZyrTEC) 10 MG chewable tablet, Chew Daily, Disp: , Rfl: cetirizine (ZyrTEC) 10 MG tablet, TAKE 1 TABLET BY MOUTH EVERY DAY FOR 30 DAYS, Disp: , Rfl: [facility] E Oil 45 MG/0.25ML oil, USE 1 ML TOPICALLY ONCE DAILY FOR 30 DAYS, Disp: , Rfl: dicyclomine (Bentyl) 20 MG tablet, Take 20 mg by mouth in the morning and 20 mg in the evening and 20 mg before bedtime., Disp: , Rfl: DULoxetine (Cymbalta) [address] capsule, Take 30 mg by mouth in the morning and 30 mg before bedtime. Do not crush or chew. ., Disp: , Rfl: estradiol (Estrace) 0.5 MG tablet, 1 tablet Orally, Disp: , Rfl: Glucosamine-Chondroitin (OSTEO BI-FLEX REGULAR STRENGTH PO), Oral, Daily, 0 Refill(s), Disp: , Rfl: hyoscyamine (Levsin) 0.125 MG SL tablet, DISSOLVE 1 TABLET UNDER TONGUE 4 TIMES A DAY NEEDED, Disp: , Rfl: hyoscyamine (Levsin) 0.125 MG tablet, every 4 (four) hours, Disp: , Rfl: levothyroxine (Synthroid, Levoxyl) 50 MCG tablet, , Disp: , Rfl: liothyronine (Cytomel) 5 MCG tablet, 5 mcg, Disp: , Rfl: losartan (Cozaar) 100 MG tablet, 1 (one) time each day at the same time, Disp: , Rfl: metoprolol tartrate (Lopressor) 50 MG tablet, , Disp: , Rfl: omeprazole (PriLOSEC) [address] capsule, 1 (one) time each day at the same time., Disp: , Rfl: Restoril 15 MG capsule, 1 (one) time each day at the same time, Disp: , Rfl: rifAXIMin (Xifaxan) 550 MG tablet, Take 550 mg by mouth, Disp: , Rfl: tacrolimus (Protopic) 0.1 % ointment, Apply to face and neck twice a day when itchy, hold when clear/ 90 day supply, Disp: 90 g, Rfl: 2 triamcinolone (Kenalog) 0.1 % cream, Apply topically 2 (two) times a day, Disp: , Rfl: Social History: Social History Socioeconomic History Marital status: Spouse name: Not on file Number of children: Not on file Years of education: Not on file Highest education level: Not on file Occupational History Not on file Tobacco Use Smoking status: Never Smokeless tobacco: Never Vaping Use Vaping status: Unknown Substance and Sexual Activity Alcohol use: Never Drug use: Defer Sexual activity: Not on file Other Topics Concern Not on file Social History Narrative Not on file Social Determinants of Health Financial Resource Strain: Not on file Food Insecurity: Not on file Transportation Needs: Not on file Physical Activity: Not on file Stress: Not on file Social Connections: Not on file Intimate Partner Violence: Unknown (12/27/2023) Received from [facility] Safety & Environment Fear of Current or Ex-Partner: Not on file Emotionally Abused: Not on file Physically Abused: Not on file Sexually Abused: Not on file Physically or Sexually Abused: Not on file Housing Stability: Not on file ROS: General: denies fever, chills, fatigue, malaise Gastrointestinal: denies abdominal pain, ulcers, or changes in appetite or bowel habits Musculoskeletal: Positive history of generalized arthritis, denies loss of strength, pain to hip, knees, back Cardiovascular: denies CP, palpitations, irregular rhythms OBJECTIVE LE EXAM: DERM: Elongated thick yellow crumbly nails digits 1 through 10. Positive hair growth b/l feet. Rubor noted to the right 2nd PIPJ region of toe with distal right 2nd digit 0.2 cm x 0.2 cm round nummular lesion VASC: Positive palpable pedal pulses bilaterally NEURO: Gross sensation intact to bilateral feet ORTHO: Positive pain on palpation to nails 1 through 10 Flexion deformity of right 2nd toe Positive pain on palpation of right 2nd toe lesion ASSESSMENT 1. Acquired deformity of right toe 2. Verruca plantaris 3. Foot pain, right 4. Onychomycosis 5. Toe pain, bilateral PLAN Discussed proper foot care with patient today. Debride nails in length and thickness digits 1 through 10 Application of salinocaine acid medication to lesion/lesions located at right foot Informed pt of risks and benefits of procedure including high reoccurence rate, infection, pain and consent given. Application of DSD post procedure. Silvino Carey DPM documented in this encounter [facility] 12-14-2023 History of Present illness Narrative Images from the original note were not included. HISTORY OF PRESENT ILLNESS: POST OP PT Alicia Bullock is an 83 y.o. @ female. [...] her PCP for evaluation of diarrhea, taking obtt-lys-rvumlmt medications. States she feels like they are [...] evaluation. FRANK Dangelo documented in this encounter [facility] 10-17-2023 Note [id number] [place] [address] 10-17-2023 Note [id number]#1.00[facility] 10-17-2023 Note [id number]#[address] [place] [address] 10-16-2023 Note Education Materials POST OPERATIVE TOTAL [...] follow up in office with physician assistant associate professor Joe Vizcarra as scheduled #9 [facility] will be contacting you within the next 24 hours to set up home therapy visits #11 You have been given a prescription for [place], norco is narcotic, narcotics are addictive. If you feel you have problems with addiction please feel free to contact Dr. Aguilar, your family physician, or proceed to the nearest hospital's emergency services department. 10-16-2023 Note [facility] Clinical Discharge Summary PERSON INFORMATION Name ALICIA BULLOCK Age 83 Years 1940 Sex FEMALE Language Swedish PCP SANTIAGO PATRICIO Marital Status Phone Med Service Med/Surg Acct# Arrival 10/11/2023 06:57:39 Visit Reason SURGERY - RIGHT KNEE SCOPE Acuity LOS 005 01:37 Address: [address] [place] [address] Comment: PROVIDER INFORMATION VITALS INFORMATION Vital Sign [...] range between ( 1.3 and 2.9 ) [place] Abs#: 0.8 x103/mcL -- Normal range between ( 0.0 and 0.8 ) Auto Baso %: 0.2 % -- Normal range between ( 0.2 and 2.0 ) Auto [place] %: 9 % -- Normal range between [...] ( 32 and (more content not included)... 10-17-2022 Note PROCEDURE: XR SCAPUL A RT COMPARISON: None. HISTORY: Disorder of bone FINDINGS: BONES:No acute fracture or dislocation. Subchondral cystic changes of the greater tuberosity and humeral neck SOFT TISSUES:Negative. No visible soft tissue swelling. EFFUSION:None visible. OTHER: Aortic atherosclerosis IMPRESSION: No acute abnormality Electronically authenticated by: SHERYL SRINIVASAN Date: 2022-10-17 07:20 [facility] 08-16-2022 Note OPERATIVE NOTE OPERATION DATE: [...] good condition. CC: Santiago Patricio M.D. [facility] 07-27-2022 Note CONSULTATION PROCEDURE DATE: 07/27/2022 [...] be followed up in the office. [facility] 07-27-2022 Note CONSULTATION CONSULTATION DATE: 07/27/2022 [...] agrees with the plan of care. [facility] 06-01-2022 Note CONSULTATION CONSULTATION DATE: 06/01/2022 [...] Patient is in agreement to this. [facility] 06-01-2022 Note CONSULTATION PROCEDURE DATE: 06/01/2022 [...] and patient tolerated the procedure well. [facility] Evaluation + Plan note No data available for this section General Surgery [place] Evaluation + Plan note Future Appointments Appointment Date:07/14/2024 12:45:00 PM Scheduled Provider:Lynn Pastrana MD Location:[facility] [place] Digestive Health Appointment Type:[facility] Follow Up [facility] Digestive Health Evaluation note No Information [facility] [employer] Other Evaluation note No assessment inform ation available [facility] Work Phone: Evaluation note Diagnosis S/P [...] routine healing [facility] Diagnosis Acquired deformity of right toe- Primary Verruca plantaris Plantar wart Foot pain, right Pain in soft tissues of limb Pain due to onychomycosis of toenails of both feet documented [facility] Diagnosis Acquired deformity of right toe- Primary Verruca plantaris Plantar wart Foot pain, right Pain in soft tissues of limb Onychomycosis Dermatophytosis of nail Toe pain, bilateral documented [facility]* Diagnosis Nondisplaced fracture of shaft of fifth metacarpal bone, right hand, initial encounter for closed fracture- Primary Right hand pain Pain in soft tissues of limb documented [facility]* Diagnosis Nondisplaced fracture of shaft of fifth metacarpal bone, right hand, subsequent encounter for fracture with routine healing documented in this encounter [facility]* Diagnosis Acquired deformity of right toe- Primary Pain due to onychomycosis of toenails of both feet Verruca plantaris Plantar wart Foot pain, right Pain in soft tissues of limb documented in this encounter [facility]* Diagnosis Neoplasm of unspecified behavior of bone, soft tissue, and skin- Primary documented in this encounter [facility]* Diagnosis Nondisplaced fracture of shaft of fifth metacarpal bone, right hand, subsequent encounter for fracture with routine healing- Primary Right hand pain Pain in soft tissues of limb documented in this encounter [facility]* Diagnosis Actinic keratosis- Primary Pain due to onychomycosis of toenails of both feet- Primary Verruca plantaris Plantar wart Foot pain, right Pain in soft tissues of limb documented in this encounter [facility]* Diagnosis Verruca plantaris- Primary Plantar wart Foot pain, right Pain in soft tissues of limb Pain due to onychomycosis of toenails of both feet Acquired deformity of right toe documented in this encounter [facility]* Diagnosis Pain due to onychomycosis of toenails of both feet- Primary Verruca plantaris Plantar wart Foot pain, right Pain in soft tissues of limb Acquired deformity of right toe documented in this encounter [facility]* Diagnosis Verruca plantaris- Primary Plantar wart Foot pain, right Pain in soft tissues of limb Acquired deformity of right toe Pain due to onychomycosis of toenails of both feet documented in this encounter [facility] HealthcareHistory general Narrative - Reported* Type Description Date Medical History appendectomy Medical History Arthritis Medical History cataracts Medical History diabetes mallitus Medical History gall bladder disease Medical History hypertension Medical History thyroid disease Surgical History appendectomy Surgical History bladder suspension, unspecified Surgical History gall bladder Surgical History knee replacement Hospitalization History see surgical hx [facility] Other Hospital Discharge instructions No data available for this section General Surgery [employer] Progress note No data available for this section General Surgery [place] Chief Complaint and Reason for Visit Chief [...] Santiago Patricio MD Primary Care Provider, Attending Pr lg Active Team Status: Active Member Role Status Dates Santiago Patricio MD Primary Care Provider Active Electrical Maintenance Mechanic Relationship Specialty Start Date End Date Santiago Patricio MD [address] [place] [address] PCP - General Family Medicine 10/05/23 Electrical Maintenance Mechanic Relationship Specialty Start Date End Date Santiago Patricio MD [address] [place] [address] PCP - General Family Medicine 10/05/23 Electrical Maintenance Mechanic Relationship Specialty Start Date End Date Santiago Patricio MD [address] [place] [address] PCP - General Family Medicine 10/05/23 Electrical Maintenance Mechanic Relationship Specialty Start Date End Date Santiago Patricio MD [address] [place] [address] PCP - General Family Medicine 10/05/23 Electrical Maintenance Mechanic Relationship Specialty Start Date End Date Santiago Patricio MD [address] [place] [address] PCP - General Family Medicine 10/05/23 Electrical Maintenance Mechanic Relationship Specialty Start Date End Date Santiago Patricio MD [address] [place] [facility] [address] PCP - General Family Medicine 10/05/23 Electrical Maintenance Mechanic Relationship Specialty Start Date End Date Santiago Patricio MD [address] [place] [facility] [address] PCP - General Family Medicine 10/05/23 Electrical Maintenance Mechanic Relationship Specialty Start Date End Date Santiago Patricio MD [address] [place] [facility] [address] PCP - General Family Medicine 10/05/23 Electrical Maintenance Mechanic Relationship Specialty Start Date End Date Santiago Patricio MD [address] [place] [facility] [address] PCP - General Family Medicine 10/05/23 Electrical Maintenance Mechanic Relationship Specialty Start Date End Date Santiago Patricio MD [address] [place] [facility] [address] PCP - General Family Medicine 10/05/23 Electrical Maintenance Mechanic Relationship Specialty Start Date End Date Santiago Patricio MD [address] [place] [facility] [address] PCP - General Family Medicine 10/05/23 Electrical Maintenance Mechanic Relationship Specialty Start Date End Date Santiago Patricio MD [address] [place] [facility] [address] PCP - General Family Medicine 10/05/23 REASON FOR VISIT (unrecogniz ed section and content) Reason Comments Pain Reason Comments Skin Check Follow-up Reason Comments Post-op Reason Comments Follow-up Reason Comments Toenail Care Non DM Nails Reason Comments Toenail Care Non dm nail care Reason Comments Suspicious Skin Lesion Reason Comments Toenail Care Goals (unrecognized section and content) Goals may be documented in a n alternate section INFORMATION SOURCE (unrecogn ized section and content) DATE CREATED AUTHOR 11/14/2022 [facility] DATE CREATED AUTHOR AUTHOR'S ORGANIZ ATION 04/13/2023 [facility] DATE CREATED AUTHOR AUTHOR'S ORGANIZ ATION 11/02/2023 [facility] DATE CREATED AUTHOR AUTHOR'S ORGANIZ ATION 07/13/2024 [facility] DATE CREATED AUTHOR AUTHOR'S ORGANIZ ATION 06/20/2025 [facility] EPIC FOR RECORDS PERTAINING TO PATIENTS [...] BE BASED ON THE PRIMARY CLINICAL RECORDS. [employer] provides no warranty or guarantee of the accuracy or completeness of information in this document.
[2025-07-24 08:49] LABS: Hematocrit 35.8 % (36.0-48.0); Hemoglobin 12.0 g/dL (12.0-16.0); Immature Granulocytes Abs Auto 0.00 10^3/uL (0.00-0.03); Immature Granulocytes Pct Auto 0.0 % (0.0-0.5); Lymphocytes Absolute Auto 1.3 10^3/uL (1.2-3.8); Mean Corpuscular HGB Conc 33.5 g/dL (29.9-35.2); Mean Corpuscular Hemoglobin 31.2 pg (26.7-34.0); Mean Corpuscular Volume 93.0 fL (81.0-99.0); Platelet Count 149 10^3/uL (150-450); Red Blood Count 3.85 10^6/uL (4.20-5.40); White Blood Count 3.6 10^3/uL (4.0-11.0)
[2025-07-24 09:12] LABS: Alanine Aminotransferase 23 U/L (14-59); Albumin Globulin Ratio 1.1; Albumin Level 3.7 g/dL (3.4-5.0); Alkaline Phosphatase 86 U/L (46-116); Anion Gap 12.5; Aspartate Amino Transferase 20 U/L (15-37); Blood Urea Nitrogen 24.0 mg/dL (7.0-18.0); Calcium 9.0 mg/dL (8.5-10.1); Carbon Dioxide 27.0 mmol/L (21.0-32.0); Chloride 105 mmol/L (98-107); Cholesterol 195 mg/dL (<=200); Estimated GFR (African America >60 (>=60 mL/min/1.73m^2); Estimated GFR (Non-African Ame 58 (>=60 mL/min/1.73m^2); Free T3 1.95 pg/mL (2.18-3.98); Globulin 3.4 g/dL; Glucose 96 mg/dL (74-106); HDL Cholesterol 54 mg/dL (40-60); NT Pro B Type Natriuretic Pept 251.0 pg/mL (<=1800.0); Potassium 4.5 mmol/L (3.5-5.1); Sodium 140 mmol/L (136-145); Thyroid Stimulating Hormone 1.950 uIU/mL (0.358-3.740); Total Protein 7.1 g/dL (6.4-8.2); Triglycerides 132 mg/dL (<=150); VLDL CHOLESTEROL 26.4 mg/dL
[2025-07-24 09:32] LABS: Iron 64.0 ug/dL (50.0-170.0)
== END 2025-07-24 08:27 | disposition home or self-care (01) ==
LOC: LAB 08:27
PROVIDERS: PCP Family Medicine; Visit Provider Family Medicine
DX: G47.00 Insomnia, unspecified (principal); E78.00 Pure hypercholesterolemia, unspecified; R20.2 Paresthesia of skin; R73.09 Other abnormal glucose; D64.9 Anemia, unspecified; R53.83 Other fatigue; I11.0 Hypertensive heart disease with heart failure; I50.30 Unspecified diastolic (congestive) heart failure
CPT/HCPCS: 36415; 80053; 80061; 83036; 83540; 83880; 84436; 84443; 84481; 85025

== ENCOUNTER 2025-08-10 09:20 | Outpatient (OUT) | payer MEDICARE, SELFPAY ==
--- OUTSIDE RECORDS SUMMARY | 2025-08-10 09:23 | XMS_ITS | Encounter Summary ---
Author Organization [facility] Address [address] [place] [address] Care Team Providers Care Photographic Process Attendant Name Role Phone Bakari Otto MD Primary Care Provider [phone] Encounter Details Date Type Department Care Team (Late Contact Info) Description 10/08/2023 Clinisync Result Encounter [facility] Department Unsolicited Jamal Vizcarra PA [address] [place] [address] Social History Tobacco Use Types Packs/Day Years [...] Upcoming Encounters Date Type Department Care Team ([facility] Contact Info) Description 09/01/2025 1:05 PM EDT Office Visit [facility] [address] [place] [address] Nathalie Horne MD [address] [facility] [facility] [address] [place] [address] 09/10/2025 11:50 AM EST Procedure Visit [facility] [address] [place] [address] Silvino Arellano DPM [address] [facility] [address] [place] [address] 08/11/2026 10:30 AM EDT Office Visit [facility] [address] [place] [address] Jr. Delgado Aguilar, DO [address] [facility] [address] [place] [address] documented as of this encounter Procedures Procedure Name Priority Date/Time Associated Diagnosis Comments MR KNEE RT WO CON 10/08/2023 12: 03 PM EST documented in this encounter Results * MR KNEE RT WO CON (10/08/2023 12:03 PM EST) Anatomical Region Laterality Modality Other 10/08/2023 12:0 3 PM EST Narrative 10/08/2023 12:03 [place] [address] Magnetic Resonance Report Signed Patient: ALICIA NGUYỄN MR#: [id number] : 1940 Acct:[id number] Age/Sex: 83 / F ADM Date: 10/08/23 Loc: MRI Attending Dr: Jamal MARIE Ordering Physician: Jamal Vizcarra Date of Service: 10/08/23 Procedure(s): MR knee RT wo con Accession Number(s): [id number] cc: Bakari Otto M.D.; Jamal Vizcarra [address] [address] Patient Name: ALICIA NGUYỄN MRN: [id number] date: 1940 Sex: F Assigned Patient Location: MRI Current Patient Location: MRI Accession/Order Number: [id number] Exam Date: 10/08/2023 09:53 Report Date: 10/08/2023 [...] without appreciable donor site. Electronically authenticated by: JORGE ESPINO Date: 10/08/2023 12:03 Dictated By: Jorge Espino M.D. Signed By: 10/08/231205 DD/ 02 TD/TT: Hydrometeorology Teacher: Procedure Note Radiology, Radiologist, MD - 10/08/2023 [place] [address] Magnetic Resonance Report Signed Patient: ALICIA NGUYỄN AMR#: [id number] : 1940cct:[id number] Age/Sex: 83 / FADM Date: 10/08/23 Loc: MRI Attending Dr: Jamal MARIE Ordering Physician: Jamal Vizcarra Date of Service: 10/08/23 Procedure(s): MR knee RT wo con Accession Number(s): [id number] cc: Bakari Otto M.D.; Jamal Vizcarra [place] [id number] Patient Name: ALICIA NGUYỄN MRN: [id number] date: 1940 Sex: F Assigned Patient Location: MRI Current Patient Location: MRI Accession/Order Number: [id number] Exam Date: 10/08/2023 09:53 Report Date: 10/08/2023 [...] remains low in signal on T1 and [id number]. ACL: Normal appearing ligament. PCL: Normal appearing [...] without appreciable donor site. Electronically authenticated by: JORGE ESPINO Date: 10/08/2023 12:03 Dictated By: Jorge Espion M.D. Signed By:10/08/231205 DD/ 120 TD/TT: Hydrometeorology Teacher: us Jamal MARIE [facility] Final Resul t documented in this encounter Visit Diagnoses Not on filedocumented in this encounter Care Teams Photographic Process Attendant Relationship Specialty Start Date End Date Bakari Otto MD [address] [place] [address] PCP - General Family Medicine 10/05/23 documented as of this encounter
--- OUTSIDE RECORDS SUMMARY | 2025-08-10 09:23 | XMS_ITS | Clinical Summary ---
Author Organization [facility] Address [address] [place] [address] Care Team Providers Care Bakery Machine Mechanic Name Role Phone Bakari Otto MD Primary Care Provider [phone] Allergies No known active allergies Medications amLODIPine [...] Encounters Date Type Department Care Team Description 06/18/2025 11:40 AM EDT Procedure Visit [facility] [address] [facility] [address] [place] [address] Silvino Arellano DPM Verruca plantaris (Primary Dx); Foot pain, right; Acquired deformity of right toe; Pain due to onychomycosis of toenails of both feet 06/18/2025 Bamboo flowsheet [facility] [address] [facility] [address] [place] [address] Silvino Arellano DPM 06/18/2025 Travel from Last 3 Months Family History [...] AM EDT Temperature - - Respiratory Rate 19 06/18/2025 11:27 AM EDT Oxygen Saturation - - Inhaled Oxygen Concentration - - Weight 54 kg (119 lb) 06/18/2025 11:27 AM EDT Height 160 cm (5' 3 ) 06/18/2025 11:27 AM EDT Body Mass Index 21.08 06/18/2025 11:27 AM EDT Plan of Treatment Upcoming Encounters Date Type Department Care Team (Late st Contact Info) Description 09/01/2025 1:05 PM EDT Office Visit [facility] [address] [place] [address] Nathalie Horne MD [address] [place] [address] 09/10/2025 11:50 AM EST Procedure Visit [facility] [address] [place] [phone] Silvino Arellano DPM [address] [facility] [address] [place] [address] 08/11/2026 10:30 AM EDT Office Visit [facility] [address] [place] [address] Jr. Delgado Aguilar DO [address] [place] [address] Health Maintenance Due Date Last Done Comments Influenza Vaccine (#1) 2025 0, 07/26/2017, 08/05/2015 Pneumococcal Vaccine: 65+ Years Completed 7, 01/18/2016 Insurance MEDICARE [facility] Care Teams Bakery Machine Mechanic Relationship Specialty Start Date End Date Bakari Otto MD [address] [place] [address] PCP - General Family Medicine 10/05/23
--- OUTSIDE RECORDS SUMMARY | 2025-08-10 09:23 | XMS_ITS | Clinical Summary ---
Author Organization [facility] Address [address] [place] [address] Care Team Providers Care [employer] Sales Representative Name Role Phone Bakari Otto MD Primary Care Provider [phone] Social History Tobacco Use Types Packs/Day Years [...] Vaccine (1 - 1-dose 75+ series) 2013 Advance Directive Discussion 11/05/2024 Influenza Vaccine (#1) 2025 Insurance [facility] MEDICARE Care Teams [employer] Sales Representative Relationship Specialty Start Date End Date Bakari Otto MD PCP - General Family Medicine 07/30/14
--- OUTSIDE RECORDS SUMMARY | 2025-08-10 09:23 | XMS_ITS | Clinical Summary ---
Author Organization [facility] Address [address] [place] [address] Care Team Providers Care Centrifugal Spinner Name Role Phone Unavailable Primary Care Provider [...]
[2025-08-10 09:35] LABS: Hematocrit 36.7 % (36.0-48.0); Hemoglobin 12.2 g/dL (12.0-16.0); Immature Granulocytes Abs Auto 0.01 10^3/uL (0.00-0.03); Immature Granulocytes Pct Auto 0.2 % (0.0-0.5); Lymphocytes Absolute Auto 1.5 10^3/uL (1.2-3.8); Mean Corpuscular HGB Conc 33.2 g/dL (29.9-35.2); Mean Corpuscular Hemoglobin 31.1 pg (26.7-34.0); Mean Corpuscular Volume 93.6 fL (81.0-99.0); Platelet Count 163 10^3/uL (150-450); Red Blood Count 3.92 10^6/uL (4.20-5.40); White Blood Count 4.3 10^3/uL (4.0-11.0)
--- OUTSIDE RECORDS SUMMARY | 2025-08-10 09:39 | XMS_ITS | CCD ---
Author Organization [facility] Care Team Providers Care Watcher Lookout Tower Name Role Phone Santiago Patricio Primary Care Physician Rachana Salmon Unavailable MD Santiago Patricio Primary Care Provider [phone] MD Santiago Patricio Attending Provider Santiago [...] HOY ., DR HENDERSON Primary Care Unavailable BROCK, DR SHERYL Navarrete Consulting Unavailable HOY ., [...] RACHANA Admitting Unavailable BLADES, RACHANA Attending Unavailable BROCK, DR SHERYL Navarrete Consulting Unavailable HOY ., [...] Unavailable Santiago Patricio MD Primary Care Provider [phone] Lynn Pastrana Attending Unavailable yLnn Pastrana Attending Unavailable Lynn Pastrana Attending Unavailable Santiago Patricio MD Primary Care Provider [phone] ISAI HORNE Attending Unavailable CALIXTO BARBA Attending [...] Medication Allergies] Propensity to adverse reactions (disorder) [facility] Repository Medications Current Medications Medication Drug [...] Start: 06-08-2022 take 2 tablets by mo [facility] once daily amLODIPine 5 mg Tab 10 [...] Onset: 08-24-2022 Episodic Other aftercare (1 source) custodial (current) use of aspirin; Translations: [PRISON CURRENT USE OF ASPIRIN] Onset: 08-24-2022 Episodic Other aftercare (1 source) Other shelter (current) drug therapy; Translations: [OTH ADMITTING REPRESENTATIVE CURRENT DRUG THERAPY] Onset: 05-01-2022 Episodic Other [...] Reference Range Facility No Panel Informationon 02-03 [facility] XR Hand - right 3 [facility] Result: 12/29/2024: Multiple views of right hand demontstrate healing 5th MC shaft fracture in acceptable position with increased callus formation when compared to prior x-ray. There was no other acute bony process including but not limited to separate fracture and/or dislocation. 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 [facility] Gross Text [facility] ICD10 Code L57.0 [facility] Microscopic Description Initial sections and levels through the block were reviewed. [facility] PROTOCOL F - FLAT [facility] Specimen type Nom (Spec) SPECIMEN: LEFT CHEEK [facility] No Panel Informationon 12-16 Type of biopsy: [...] taken Amount of lidocaine used: 1.0 cc [facility] No Panel InformationOrdered By: Elaine Bernardo on 12-16-2024 [facility] XR Hand - right 3 [facility] Result: 10/06/2024 Multiple views of right hand demontstrate healing 5th MC shaft fracture in unchanged position and alignment but increased callus formation when compared to prior x-ray. There was no other acute bony process including but not limited to separate fracture and/or dislocation. Impression: Healing right 5th MC shaft fracture Calixto SUAZO [facility] Radiology Study observation (narrative) [facility] XR Hand - right 3 [facility] Result: 09/09/2024: AP, LAT and Oblique xray of right hand demonstrate healing oblique fracture of right 5th MC shaft in acceptable position and alignment. There is increased callus compared to previous xray but there is still not a definitive union of fracture. Impression: Healing 5th MC shaft fracture Calixto SUAZO [facility] Radiology Study observation (narrative) [facility] XR Hand - right 3 [facility] Result: 08/19/2024: AP, LAT and Oblique xray of right hand demonstrate healing oblique fracture of right 5th MC shaft in acceptable position and alignment. There is increased callus but no definitive union is established. Impression: Healing 5th MC shaft fracture Calixto Barba [employer] [facility] XR Hand - right 3 [facility] Study observation (narrative) [facility] No Panel Informationon 08-14 [facility] XR Knee - left 1 or 2 [...] dislocation. Impression: Unremarkable left total knee arthroplasty. [facility] Radiology Study observation (narrative) [facility] XR Hand - right 3 [...] Healing fracture Shaft of Right fifth metacarpal [facility] XR Hand - right 3 [facility] Study observation (narrative) [facility] XR Hand - right 3 [facility] Result: Multiple views of right hand showed a fifth metacarpal shaft fracture. There was no other acute verena process including but not limited to separate fracture or dislocation. Impression: right fifth metacarpal shaft fracture [facility] No Panel Informationon 07-03 Calixto Barba NP [...] elevation of casted extremity: Cast Care reviewed: [facility] XR Hand - right 3 [facility] Study observation (narrative) [facility] Ambulatory Visit Summaryon 0 04-14-2024 Ambulatory [...] PM EDT With: Lynn Pastrana MD Where: [facility] Normal [facility] Gastroenterology Office/Clin ic Noteon 04-14-2024 Gastroenterology [...] TID, # 42 tab(s), Refills(s) 0, Pharmacy: [facility]/pharmacy #[id number], 159, cm, 01/23/24 14:05:00 [...] TID, # 42 tab(s), Refills(s) 0, Pharmacy: [facility]/pharmacy #[id number], 159, cm, 01/23/24 14:05:00 [...] Tobacco Use:., (more content not included)... Normal [facility] Comment on above: Result Comment: Elec [...] Brother. Cirrhosis o (more content not included)... [facility] Comment on above: Result Comment: Elec tronically Signed By: Zeina LONGORIA, Lynn Mahoney.br\Date and Time Signed: 01/23/24 14:17 EDT Physician Referralon 024 Physician Referral [id number]#[id number] [facility] Coding Summaryon 10-22-2023 Coding Summary HTMLBase 64 OxbtkfydRZm9vDp+PGhlYWQ+PE1F RENlF18dtZZozV1lP1QDZMhBCikz ZAVHDDhAHaUjsmGwJH4hvKZjDPWx IC8+SJ4oTXNxTifvqGFkg2M1vNR7 X54aoo3jINcnxMN7MFClPeUhvlqd r3ztzDp7YKxfOvjhVcRx GNMyjF99XLN0hS07Zk15cNYtwKHw r0fpoWm0XqQoYXQkKPS8cBgnGYgy q4AySLYkW39tbSVbz3Z9 ZQRwpRjtaWCjQnJmwWC2zX5lSPfa cjnuv8udyubsRtd7ad46vRWaa3L0 bOQ0C2WwcoY6MLEqzEQd UqrfgLJOaY1uodpzr8oebjvqKeMr SEJdVAb7JYk1RVCqmIhcWdPaIF32 HWT0WCAsowQaS6SbIBKc pXnnEyB8i8K6Uu6TG9DZUabgD9QO TUFSWTwvdGQ+JS02dd03S5ThEowj Vpn4ENCeQWV3hDQ7bZ5s ZCQgNMulv5U8lOB6E0HebwAipn9i t4wvIJChJQghK70awQXhz0O7LDMr yZY3HTCirSfpGzWpdB81 Oyc+JJIgeRiwj0TvUfqbm6qyb3ir eIn3YgpsDELqoqRbzSmhVDU5j7Xe Ry9zAQDrePO2eFQ3dD2e RgHdVaU2QIejE053MuIdrZBjFuol F75oI6SelQQ+ARVkUyy6SLLhfOyb PA8lT2DyOVQjcvdxoFXf jFrrBQ9hXZXsgrpcNQKfzO0fPQPl J7i6UdYzIbS9ZTmlH4ZzISAbdhhg Hj67nV0pBeAdRsK2ITtn D5AbbkY1LNMghJCfWKqcKEH7A58q e7E6FNVhZRCkNNO1yTN7aL4ufTss bjogbGVmdDsgdmVydGlj RXbkUGnhE080FEEpzWqrOpJcOShx ZyBEYXRlOiAgMTIvMTgvMjAyMzwv dGQ+TQKgNIY1jMghIVJl rGZyEMhnOg5jgXkofYzkKE7dFDFi gujmOKXmdF6aRMTboCNjnBtsKF2i HXMgkszqj504GpDnGFW5 HXBymZAhQ5KueY7rYpUqESUdLWDl N6PkxAIgLXjfH673ESazKfG8KRHp lvTjV9XjPAKtuOivCsJ5 b6P6Mg3Av7NumjdxE7YphKUbAyHs LmirSKh8T3VsSptanUW+KI87USLo ID52AUj5UIF1fJabBFhm OZCaX1VljZ4oCvIjDYWkSCRsAbk+ PHRhYmxlIHdpZHRoPScxMDAlJyBz yWxxPJ1oCe2zRVGyJQKc qArueUSmViHsn5pyTZNqAIcaHR5i kRnaD1HmkPY7MJJbj4x2Fe49X69m P7MvfDB+SQZkjDD3fQK8 rI4lWpIrXdC5KZooB595GdSdsFPh Ylguu1oof5issMh5XvA9UODkryHx hGieXTQ4u1CfKo26E55x FQnzIQRkKHCaHEVxNUKuyKwohl2o mG2nRd1+APZycPK5bYE0uU2gLnUf BaK3RRlxB341RhVmjFVr Eqxus2hmb1ntiAi9NaSjXEXpytJx jZidUIG8i0SdPf16K1YgfGatx7Kv Agf7ak48iGHnf2J7cMK7 Z3QiVKDlqpulmZKuaEowNX7aAEIh ycxaBZKqkL4dMGKjJ7x1UhPzFrJ7 OXslC2IlnlJ1FIXzjRHz VVYdoLXNnI7gwizsl0tcbqdsEfCa DTLyDAt2VKj2POMqbKycNjErOFL4 OsC5PKB2cZHirS3ljCuo dgtavD0pCxk+GMF6fKRjiVGRHG8v OjwvdGQ+HHWrELW3vTiyTAxtPAZy eM6yHDXlS7i4EeWjBkC7 TSfpG9KaijO5TCTccVSzORNgpOXP iO7tfuped8nuwbbvWuUxCHOpZBm7 MOi8MAVsqKmrMaMaFKJ6 MyY5QPZ6iGAlwX8hrTnjoofffL7s Oyc+TlkyiKisVEL9MJj3Z2RxHrp3 RYDwbIxkPG2lgSFcHGvj Bk3pmIzxsBwuWW1kUCZjdxgup760 HaYdt9jiZMGbwTImQBhzNWI6N18x p6M3KAZjEXPyZHY9iQS1 iB3wbNzeyqdlgAXtzKxjdvPhiHlt XTilDGetQ868MUVkhUasMzJyTSp3 E2WzHvn6AXOsaDbcWI0g tCDaFLsqHx2aaOzkjBdwYJ1aPDNi irfek959BeQlu6daLDRslTIlBJfe IDA6C26ex7L6DCOkBKBl VHU3pAX0jM3ayBwufegptMRxeLfo zgMofRsjAHvlXEddO308NWJhhTbu AxJgfSq6C7TuFzr2YXTi jYoxLY4klLUnNMepMi9yyKtifYly HG2kHKJqgfyya712NlZga2ftLEQk yGGwANhtIJI4R14ce3C6 VLInSJSqIMM5oNU7wH6lbDzkqvrx cJJzsTlvirHruVdtSEpqKKgvQ120 IHRvcDsnPlBhdGllbnQg YXffSYp6P5TaYawshOT+GA94SQGc ZG77aAAnkTYjw5cyxZc2CcIpTFDs AYH0xAqvNMozs9KeHHEz S81dhTXqy8G0RZXgdCuoeOGnTyYx yDT6iR3ySBgdjunuz7vwsdysMauu i2ncvr41rY01Q85lQHrp YJAkIOBlACTfPBDtvUpofc3xmE6y Ii8+RRTveTZ5tEV2vI7tNYSwEuS6 BPhpH170GnEasZNbFsfv h5dsx5mgpSd4PoS4WZYdeqVkuLdw UZE6p3BwTu50D80aDPmrITSkNBFg BPTuHRHnfQhxya2quZ9q Ii8+YBTazIF1zFA1xS9cLjMpKcK9 YJjjI507MpReuQHiAdgfR38wG8Sg dXA+JVXnSgp1SFCfjCzs DP4amNYiOEgbDx6rUBZ7QiUhFrYb YRdiR5QjASEfjnbdzqmcoEG3VTHb SFAzfM91Ni6loZnfSFAy tURPhS4kzoegg9liwtdyCnSdQXPl UIi8YSp9SFHqdXylRnKgBFT7FhM0 PHY7bXWxtY6vvZipscws hL1pG4DqHCKxkuuuJq86fT4dRgAh LcS7RSatXfh+UkFJRlNOSURFUiwg TUFSWSBBTElDRTwvdGQ+ TWHhYSU6vTgqWMxdXRMgbK7qANPs I1k5VkNpAmT7HXatA5ByZSUzdobo Iz10kA7hWrFbYqV7KUsx V6HutpH5NUQvfWDqHUvlRKN4B92t p8G3XKZoVBBhCLQ4vWY7eK2ftUay bjogbGVmdDsgdmVydGlj AMnzTRgfS508GVTbcGhpMiX2GgEp RcK8Flg8G6WzMpp7RROjiLiiEM0p gPGcNQazFk9yfQempDyb LY8gDHIffdraPBWlqL1kSPPxuOMp dPkoFI6pWNXaidter451HoMiYQB8 EYHfeWEuS8ReyB2oGwVl IYPbPCZaW3YkwCRqNKxqL824UZoj KkT0ABNukqNoR5GoRSVbiTxzZzK9 g1C6Oc91EIFIPLGjuhwb dGQ+OWXfERB0pSvzWBdlWPJszZ8b VHTaQ3n5LnGzZvJ2KMqcY9AeFYPt jkokJy47qB8uEoSjEcZ9 ZYppT1AabeE7NNSvyLDaMBnvPKW2 J43wg9Y3XZAuKPTtZKF2aLW3eP8r bGlnbjogbGVmdDsgdmVy uYruSDnvRMjiT964HZVuvXluEcLO TUFMRTwvdGQ+AMEpEUV2tJaqFUbh TGDxcK3nISQiM2c4JyFw NbR1WTqkP3AkPNYwubueSy75rH1o YpRqQqP0QBcpE4YczrS0NHWwfBNa PBdiCGT2M19wu0F8RDEf ATKwOTI9aHZ7tX7kzFkfqmzmkEZa aJhcqxCbcUknREfsVLwzG224ZNUr yQacRyhzoGT3wBPgzWjy dGQ+BQ96gv05X0ByLnbzWnz7XZQs AVU6dDO2tR9xPZPvDQbje2C0rPT7 X9RxunGmyh4uw6yqGTJc LVcwU87bsIOak3J8YNBduTO2GCEg fJfoDpOilT20Sqn+EMIgkDzus5Nl Zbmqx5muj0kkxXa7NyGb KYBnfzZabZxoRZM5c8PkLx19B52j ZEghTKYvURLjKVSoYHQrrFysfe0w iY1oSr4+UVAlrME6nHG6 oA0sPrAgMcU4DUrtB978MpUhbVKg Bshmp3ibv3synQt1YzToFQQaqaGx uBcrVLM4m9PpGh33P5Bp qEojq3UlXmf7ps79gPDbp1E4uRF9 X3GcMTMbugzipEDhxVpjPK0dAZYm hcwvOPTnzX5vCSOmZ1q0 TpEvDhB5JLasT4ZmcaW5YBHwmNRe DGOmrHSHzB5xhucrv6qdwbthCsMh FSXkJWh6QKi2QIAouFxs UvToRKE6YxT7AYA5lOEitD6htKos faxwzC4sYpp+CKo3e9qjkUFaLU7x yVR4VM95XP16xDPwi4T6 pRO2O1NjMYBzxbwvfscxqNH3FSZw JHYkfX59Ot3nnTkdBc7fSJGsVXU0 OFVlhHQjD2DkpM1kGsBv HXJmXNEiX8NtsDRwHNdiX697MOgl LwS0VTPealUuS9BeBMJwqBivFgJ5 z6K1Uz6YEZ92NH24QB21 pXAuj7F8lFR4H2FyFMPblwxhhcbg uAD6HFYbRBUpwI55Sp0eqDmxFq6w CMMqMPL4LDQorMMhW5Nv xL8vYlSvHDJtKKRrP3BevMEvFLie K242KLfdXfH7FBFmdxTyD4CwXJHa lQygBfM8p1V6Br9XBl93 OU31QT57aZZtc1S6jWN0C7OgFXLc hijndyqnpIT5VRPjDGBodL97Ge4h tYusRr7yQPEtNDF6PSTd rEThS1WmfM7qHyBgECShTGFsV0Cj hWNrLMocD317OJxjKuZ0REXynnPd I9DfCFGviFirRoD7u8Q8 Sj9QWVzkcnm1T5SoFhrabOM+PC90 PSMhRP70qLDxjMEab6qrfHi8ZsVh QZHbKEW0pWezWIdoq1Zh ZXI (more content not included)... Normal [facility] C Bloodon 10-18-2023 C Blood No growth at 5 Days [facility] Comment on above: Performed By: #### 2 [id number], [id number] #### [facility] (DEFAULT) [address] [place] [address] Consent Formson 10-17-2023 Consent Forms [id number] Record[facility] 10-17-2023 Outside Records [id number]#1.00[facility] Provider Orderson 10-17-2023 Provider Orders [id number]#1.00[facility] Telemetry Stripson Telemetry Strips [id number]#1.00OTGTIFF [facility] Therapeutic Documentation on 10-16-2023 Therapeutic Documentation [id number]#[facility].00[facility] Blood[facility] 10-16-2023 C Blood patient went to CAT scan Nurse from [address] [place] [address] will call when patient is back to her room @1440 elviktor No growth at 5 Days Normal [facility] Comment on above: Performed By: #### 6 [id number] ####[facility] (DEFAULT)[address] [place] [address] CRPon 10-16-2023 CRP 3.1 mg/dL High <=0.5 [facility] Comment on above: Performed By: #### 2 [id number], [id number] #### [facility] (DEFAULT) [address] [place] [address] Inpatient Patient Summaryon 10-16-2023 Inpatient Patient Summary [address] [address] Patient Discharge Instructions Name: ALICIA BULLOCK : 1940 Patient Address: [address] [place] [address] Primary Care Provider: Name: SANTIAGO PATRICIO After you are discharged if you find you have any questions, please, call [phone] ext [phone] to speak to a nurse. The Pharmacy at [facility] is open Sunday through Sunday from 9A [...] alcohol and/or drug addiction problems; contact the [facility] 28/05 Crisis Hotline -Text [id number] sg [phone]. If you received any narcotics, sedation, or [...] business decisions or sign any legal documents [facility] would like to thank you for allowing us to assist you with your healthcare needs. The following includes patient education materials and information regarding your injury/illness. ALICIA BULLOCK has been given the following list of follow-up instructions, prescriptions, and patient education materials: Follow-up Instructions With: Address: When: JOB AGUILAR DO [address] [facility] [address] [place] [address] Within 10 to 12 days Comments: orthopedic follow up With: Address: When: Andres Vizcarra [address] [place] [address], [address] [place] [address] Business (1) 10/26/2023 10:30 AM [...] mg o (more content not included)... Normal [facility] Pharmacy Noteon 10-16-2023 Pharmacy Note I [...] list against external fill history and available [employer] medication history to ensure accuracy. Reviewed regimen upon discharge which is appropriate and correct. Did not counseling aide patient is going to [facility]. [Electronically Signed on: 10/16/2023 11:12 EST] Andres Butler [Verified on: 10/16/2023 11:12 EST] Andres Butler Normal [facility] Sed Rateon 10-16-2023 Sed Rate 83 mm/hr High 0-20 [facility] Comment on above: Performed By: #### 2 [id number], [id number] #### [facility] (DEFAULT) [address] [place] [address] .Auto Diff 1on 10-15-2023 Auto [place] % 9 % Normal 1-12 [facility] Comment on above: Performed By: #### 2 971803, [id number], [id number], 0205705, 8580650 #### [facility] (DEFAULT) [address] [place] [address] Baso Abs# 0.0 x10 Normal 0.0-0.2 [facility] Comment on above: Performed By: #### 2 088891, [id number], [id number], 7981264, 8679097 #### [facility] (DEFAULT) [address] [place] [address] Basophils/100 WBC (Bld) 0.2 % Normal 0.2-2.0 [facility] Comment on above: Performed By: #### 2 613596, [id number], 26766439, 8398881, 2995795 #### [facility] (DEFAULT) [address] [place] [address] Eos Abs# 0.1 x10 Normal 0.0-0.4 [facility] Comment on above: Performed By: #### 2 176070, [id number], 67989562, 5766961, 1742919 #### [facility] (DEFAULT) [address] [place] [address] Eosinophils/100 WBC (Bld) 0.8 % Low 0.9-4.0 [facility] Comment on above: Performed By: #### 2 073341, [id number], 46286009, 9114626, 1896692 #### [facility] (DEFAULT) [address] [place] [address] Lymph Abs# 1.1 x10 Low 1.3-2.9 [facility] Comment on above: Performed By: #### 2 434607, [id number], 32158930, 4192967, 6072670 #### [facility] (DEFAULT) [address] [place] [address] Lymphocytes/100 WBC (Bld) 13 % Low 14-48 [facility] Comment on above: Performed By: #### 2 158927, [id number], 10400178, 5127555, 4736253 #### [facility] (DEFAULT) [address] [place] [address] [place] Abs# 0.8 x10 Normal 0.0-0.8 [facility] Comment on above: Performed By: #### 2 917555, [id number], 46133137, 7326810, 3801663 #### [facility] (DEFAULT) [address] [place] [address] Neut Abs# 6.5 x10 Normal 1.5-9.2 [facility] Comment on above: Performed By: #### 2 947553, [id number], 78798166, 3410275, 1707196 #### [facility] (DEFAULT) [address] [place] [address] Neutrophils/100 WBC (Bld) 76 % Normal 44-88 [facility] Comment on above: Performed By: #### 2 065722, [id number], 69984082, 1560561, 8853217 #### [facility] (DEFAULT) [address] [place] [address] Standardon 10-15-2023 Breakpoint Chem Normal [facility] Comment on above: Performed By: #### 2 002960, [id number], 74739049, 4384857, 8062617 #### [facility] (DEFAULT) [address] [place] [address] 10131 eGFR Non AA >60 Invalid Interpretation Code [facility] Comment on above: Performed By: #### 2 448650, [id number], 57279538, 1180345, 0342993 #### [facility] (DEFAULT) [address] [place] [address] 08067 eGFR AA >60 Invalid Interpretation Code [facility] Comment on above: Performed By: #### 2 874107, [id number], 21584178, 7377611, 4193711 #### [facility] (DEFAULT) [address] [place] [address] 15440 Anion gap [Moles/Vol] 7.4 mmol/L Normal 5.0-19.0 [facility] Comment on above: Performed By: #### 2 539059, [id number], 98878650, 5648191, 7373608 #### [facility] (DEFAULT) [address] [place] [address] 34459 Calcium [Mass/Vol] 8.8 mg/dL Low 8.9-10.3 [facility] Comment on above: Performed By: #### 2 559077, [id number], 34128625, 8552837, 9111172 #### [facility] (DEFAULT) [address] [place] [address] 44843 Chloride [Moles/Vol] 106 mmol/L Normal 101-[address] [facility] Comment on above: Performed By: #### 2 211349, [id number], 60530740, 9730857, 5225623 #### [facility] (DEFAULT) [address] [place] [address] 82141 CO2 [Moles/Vol] 26 mmol/L Normal 21-32 [facility] Comment on above: Performed By: #### 2 648309, [id number], 85699407, 6131046, 1403470 #### [facility] (DEFAULT) [address] [place] [address]304 Creatinine [Mass/Vol] 0.88 mg/dL Normal 0.60-1.30 [facility] Comment on above: Performed By: #### 2 031558, [id number], 03225549, 5291823, 8164683 #### [facility] (DEFAULT) [address] [place] [address] 44968 Glucose [Mass/Vol] 109.0 mg/dL Normal 74.0-118.0 [facility] Comment on above: Performed By: #### 2 357233, [id number], 88290168, 4905262, 8306551 #### [facility] (DEFAULT) [address] [place] [address] Osmolality 273 mOsm/L Invalid Interpretation Code [facility] Comment on above: Performed By: #### 2 023885, [id number], 69113500, 6311616, 3507251 #### [facility] (DEFAULT) [address] [place] [address]20[address] Potassium [Moles/Vol] 4.4 mmol/L Normal 3.6-5.1 [facility] Comment on above: Performed By: #### 2 732547, [id number], 80137474, 0249959, 9007938 #### [facility] (DEFAULT) [address] [place] [address] 10640 Sodium [Moles/Vol] 135.0 mmol/L Low 136.0-144 . 0 [facility] Comment on above: Performed By: #### 2 123235, [id number], 81983109, 8397612, 5457619 #### [facility] (DEFAULT) [address] [place] [address]9637 Urea nitrogen [Mass/Vol] 19 mg/dL Normal 8-26 [facility] Comment on above: Performed By: #### 2 187683, [id number], 68502928, 2611507, 2952539 #### [facility] (DEFAULT) [address] [place] [address] Urea nitrogen/Creatinine [Mass ratio] 21.5 mg/mg High 4.6-16.2 [facility] Comment on above: Performed By: #### 2 138855, [id number], [id number], 7500408, 6057254 #### [facility] (DEFAULT) [address] [place] [address] CBC w/ Auto Diffon Erythrocyte distribution width (RBC) [Ratio] 15.3 % High 11.5-15.0 [facility] Comment on above: Performed By: #### 2 050580, [id number], 45150027, 1131082, 2075817 #### [facility] (DEFAULT) [address] [place] [address] Hematocrit (Bld) [Volume fraction] 29.8 % Low 33.7-40.4 [facility] Comment on above: Performed By: #### 2 650246, [id number], 91166562, 2972363, 8509179 #### [facility] (DEFAULT) [address] [place] [address] Hemoglobin (Bld) [Mass/Vol] 9.9 g/dL Low 11.3-15.9 [facility] Comment on above: Performed By: #### 2 020677, [id number], 27312870, 4999805, 3726260 #### [facility] (DEFAULT) [address] [place] [address] Man Diff? Auto Invalid Interpretation Code [facility] Comment on above: Performed By: #### 2 859504, [id number], 01553707, 4577356, 8261527 #### [facility] (DEFAULT) [address] [place] [address] 00508 MCH (RBC) [Entitic mass] 30 pg Normal 24-34 [facility] Comment on above: Performed By: #### 2 357995, [id number], 33588966, 3022720, 9696215 #### [facility] (DEFAULT) [address] [place] [address] MCHC (RBC) [Mass/Vol] 33 g/dL Normal 26-37 [facility] Comment on above: Performed By: #### 2 373003, [id number], 10330105, 5605708, 6090603 #### [facility] (DEFAULT) [address] [place] [address] 15732 MCV (RBC) [Entitic vol] 90 fL Normal 81-100 [facility] Comment on above: Performed By: #### 2 578341, [id number], 59561360, 8475238, 0069552 #### [facility] (DEFAULT) [address] [place] [address] Platelet 363 x10 Normal 138-427 [facility] Comment on above: Performed By: #### 2 076061, [id number], 81559448, 1542484, 1439824 #### [facility] (DEFAULT) [address] [place] [address] 47292 Platelet mean volume (Bld) [Entitic vol] 6.1 fL Low 6.3-10.2 [facility] Comment on above: Performed By: #### 2 276937, [id number], 19581564, 7164720, 3805765 #### [facility] (DEFAULT) [address] [place] [address] 00170 RBC 3.31 x10 Low 3.70-5.30 [facility] Comment on above: Performed By: #### 2 914711, [id number], 74109508, 4229645, 8998932 #### [facility] (DEFAULT) [address] [place] [address] 53060 WBC 8.5 x10 Normal 3.5-10.5 [facility] Comment on above: Performed By: #### 2 749915, [id number], 28932353, 4158927, 8642931 #### [facility] (DEFAULT) [address] [place] [address] 08169 CRPon 10-15-2023 CRP 2.1 mg/dL High <=0.5 [facility] Comment on above: Performed By: #### 2 735639, [id number], 67895320, 2458254, 1396682 ####[facility] (DEFAULT)[address] [place] [address] Nutrition Noteon 10-15-2023 Nutrition Note Per intake records, Pts avg 75+% of meals. Last BM 10/13. 10/15 labs reviewed, CRP/sed rate slowly improving. PICC line in place for IV atb. Discharge anticipated for tomorrow. Normal [facility] Sed Rateon 10-15-2023 Sed Rate 78 mm/hr High 0-20 [facility] Comment on above: Performed By: #### 2 298697, [id number], 75593376, 1793554, 9770015 ####[facility] (DEFAULT)[address] [place] [address] XR Chest 1 View Frontalon XR Chest [...] 10/15/23 1:04 pm Technologist: Peggy LOMELI Normal [facility] C Fluidon 10-14-2023 C Fluid Moderate [...] <=0.5 Verified Vanc S 0.5 Verified Normal [facility] Comment on above: Performed By: #### 2 166916, [id number] #### [facility] [facility] (DEFAULT[facility] [address] [place] [address] 06000 CRPon 10-14-2023 CRP 1.8 mg/dL High <=0.5 [facility] Comment on above: Performed By: #### 2 797007, [id number] #### [facility] (DEFAULT) [address] [place] [address] 47105 Sed Rateon 10-14-2023 Sed Rate 74 mm/hr High 0-20 [facility] Comment on above: Performed By: #### 2 684380, [id number] #### [facility] (DEFAULT) [address] [place] [address] .Auto Diff 1on 10-13-2023 Auto [place] % 5 % Normal 11-16 [facility] Comment on above: Performed By: #### 2 718228, 2140586 #### [facility] (DEFAULT) [address] [place] [address] Baso Abs# 0.0 x10 Normal 0.0-0.2 [facility] Comment on above: Performed By: #### 2 082152, 5617738 #### [facility] (DEFAULT) [address] [place] [address] 78206 Basophils/100 WBC (Bld) 0.2 % Normal 0.2-2.0 [facility] Comment on above: Performed By: #### 2 503903, 3741296 #### [facility] (DEFAULT) [address] [place] [address] 46092 Eos Abs# 0.0 x10 Normal 0.0-0.4 [facility] Comment on above: Performed By: #### 2 945074, 6605106 #### [facility] (DEFAULT) [address] [place] [address] 88876 Eosinophils/100 WBC (Bld) 0.1 % Low 0.9-4.0 [facility] Comment on above: Performed By: #### 2 707378, 7185418 #### [facility] (DEFAULT) [address] [place] [address] Lymph Abs# 1.0 x10 Low 1.3-2.9 [facility] Comment on above: Performed By: #### 2 707178, 9749842 #### [facility] (DEFAULT) [address] [place] [address] Lymphocytes/100 WBC (Bld) 9 % Low 14-48 [facility] Comment on above: Performed By: #### 2 100487, 6342193 #### [facility] (DEFAULT) [address] [place] [address] [place] Abs# 0.6 x10 Normal 0.0-0.8 [facility] Comment on above: Performed By: #### 2 103959, 6975477 #### [facility] (DEFAULT) [address] [place] [address] Neut Abs# 10.1 x10 High 1.5-9.2 [facility] Comment on above: Performed By: #### 2 798525, 2148746 #### [facility] (DEFAULT) [address] [place] [address] Neutrophils/100 WBC (Bld) 86 % Normal 44-88 [facility] Comment on above: Performed By: #### 2 799680, 3212907 #### [facility] (DEFAULT) [address] [place] [address] BMP Standardon 10-13-2023 Breakpoint Chem Normal [facility] Comment on above: Performed By: #### 2 666958, 5341431 #### [facility] (DEFAULT) [address] [place] [address] eGFR Non AA >60 Invalid Interpretation Code [facility] Comment on above: Performed By: #### 2 027629, [id number] #### [facility] (DEFAULT) [address] [place] [address] 55826 eGFR AA >60 Invalid Interpretation Code [facility] Comment on above: Performed By: #### 2 551432, 7559361 #### [facility] (DEFAULT) [address] [place] [address] 44463 Calcium [Mass/Vol] 8.5 mg/dL Low 8.9-10.3 [facility] Comment on above: Performed By: #### 2 983673, 7712949 #### [facility] (DEFAULT) [address] [place] [address] 15308 Chloride [Moles/Vol] 105 mmol/L Normal 101-[address] [facility] Comment on above: Performed By: #### 2 447631, 0842638 #### [facility] (DEFAULT) [address] [place] [address] 52891 CO2 [Moles/Vol] 24 mmol/L Normal 21-32 [facility] Comment on above: Performed By: #### 2 570880, 3855477 #### [facility] (DEFAULT) [address] [place] [address] 57480 Creatinine [Mass/Vol] 0.76 mg/dL Normal 0.60-1.30 [facility] Comment on above: Performed By: #### 2 615509, 6433634 #### [facility] (DEFAULT) [address] [place] [address] 20061 Glucose [Mass/Vol] 113.0 mg/dL Normal 74.0-118.0 [facility] Comment on above: Performed By: #### 2 690957, 0113030 #### [facility] (DEFAULT) [address] [place] [address] 19932 Potassium [Moles/Vol] 4.9 mmol/L Normal 3.6-5.1 [facility] Comment on above: Performed By: #### 2 423425, 4355014 #### [facility] (DEFAULT) [address] [place] [address] 44550 Sodium [Moles/Vol] 135.0 mmol/L Low 136.0-144 . 0 [facility] Comment on above: Performed By: #### 2 650642, 8188979 #### [facility] (DEFAULT) [address] [place] [address] 55137 Urea nitrogen [Mass/Vol] 33 mg/dL High 8-26 [facility] Comment on above: Performed By: #### 2 764889, 5514491 #### [facility] (DEFAULT) [address] [place] [address] 50817 Anion gap [Moles/Vol] 10.9 mmol/L Normal 5.0-19.0 [facility] Comment on above: Performed By: #### 2 139200, 5679555 #### [facility] (DEFAULT) [address] [place] [address] 69342 Osmolality 278 mOsm/L Invalid Interpretation Code [facility] Comment on above: Performed By: #### 2 978526, 2134106 #### [facility] (DEFAULT) [address] [place] [address] 96540 Urea nitrogen/Creatinine [Mass ratio] 43.4 mg/mg High 4.6-16.2 [facility] Comment on above: Performed By: #### 2 182896, 6194241 #### [facility] (DEFAULT) [address] [place] [address] 66659 C Bloodon 10-13-2023 C Blood Bacillus species No ANICETO performed on this organism Results called to Alicia Leonard RN at 2S by CDD and results read back for confirmation on 10/12/2023 05:12:42 Normal [facility] Comment on above: Performed By: #### 2 980971, 1647515 #### [facility] (DEFAULT) [address] [place] [address] 78050 CBC w/ Auto Diffon 3 Erythrocyte distribution width (RBC) [Ratio] 15.0 % Normal 11.5-15.0 [facility] Comment on above: Performed By: #### 2 376542, 9212465 #### [facility] (DEFAULT) [address] [place] [address] 81021 Hematocrit (Bld) [Volume fraction] 26.7 % Low 33.7-40.4 [facility] Comment on above: Performed By: #### 2 960150, 0279204 #### [facility] (DEFAULT) [address] [place] [address] 51437 Hemoglobin (Bld) [Mass/Vol] 8.9 g/dL Low 11.3-15.9 [facility] Comment on above: Performed By: #### 2 568537, 4573236 #### [facility] (DEFAULT) [address] [place] [address] Man Diff? Auto Invalid Interpretation Code [facility] Comment on above: Performed By: #### 2 332292, 8609842 #### [facility] (DEFAULT) [address] [place] [address] 34469 MCH (RBC) [Entitic mass] 30 pg Normal 24-34 [facility] Comment on above: Performed By: #### 2 989771, 3992963 #### [facility] (DEFAULT) [address] [place] [address] MCHC (RBC) [Mass/Vol] 33 g/dL Normal 26-37 [facility] Comment on above: Performed By: #### 2 756437, 4726802 #### [facility] (DEFAULT) [address] [place] [address] MCV (RBC) [Entitic vol] 89 fL Normal 81-100 [facility] Comment on above: Performed By: #### 2 436512, 2246430 #### [facility] (DEFAULT) [address] [place] [address] Platelet 386 x10 Normal 138-427 [facility] Comment on above: Performed By: #### 2 897678, 9600678 #### [facility] (DEFAULT) [address] [place] [address] 39352 Platelet mean volume (Bld) [Entitic vol] 6.1 fL Low 6.3-10.2 [facility] Comment on above: Performed By: #### 2 940098, 9376397 #### [facility] (DEFAULT) [address] [place] [address] 49915 RBC 3.00 x10 Low 3.70-5.30 [facility] Comment on above: Performed By: #### 2 892659, 8849168 #### [facility] (DEFAULT) [address] [place] [address] 18270 WBC 11.8 x10 High 3.5-10.5 [facility] Comment on above: Performed By: #### 2 903182, 2085961 #### [facility] (DEFAULT) [address] [place] [address] 74472 CRPon 10-13-2023 CRP 3.2 mg/dL High <=0.5 [facility] Comment on above: Performed By: #### 2 134977, 1142276 #### [facility] (DEFAULT) [address] [place] [address] Sed Rateon 10-13-2023 Sed Rate 82 mm/hr High 0-20 [facility] Comment on above: Performed By: #### 2 772173, 4115612 #### [facility] (DEFAULT) [address] [place] [address] .Auto Diff 110-12-2023 Auto [place] % 6 % Normal 11-16 [facility] Comment on above: Performed By: #### 1 9680338, [id number], 0784297 ####[facility] (DEFAULT)[address] [place] [address] Baso Abs# 0.0 x10 Normal 0.0-0.2 [facility] Comment on above: Performed By: #### 1 0207369, [id number], 2908652 ####[facility] (DEFAULT)[address] [place] [address] Basophils/100 WBC (Bld) 0.1 % Low 0.2-2.0 [facility] Comment on above: Performed By: #### 1 1677001, [id number], 7594358 ####[facility] (DEFAULT)[address] [place] [address] Eos Abs# 0.0 x10 Normal 0.0-0.4 [facility] Comment on above: Performed By: #### 1 6622214, [id number], 0726175 ####[facility] (DEFAULT)[address] [place] [address] Eosinophils/100 WBC (Bld) 0.0 % Low 0.9-4.0 [facility] Comment on above: Performed By: #### 1 7532480, [id number], 7098158 ####[facility] (DEFAULT)[address] [place] [address] Lymph Abs# 0.7 x10 Low 1.3-2.9 [facility] Comment on above: Performed By: #### 1 5394069, [id number], 7507769 ####[facility] (DEFAULT)[address] [place] [address] Lymphocytes/100 WBC (Bld) 6 % Low 14-48 [facility] Comment on above: Performed By: #### 1 6459813, [id number], 3236199 ####[facility] (DEFAULT)[address] [place] [address] [place] Abs# 0.7 x10 Normal 0.0-0.8 [facility] Comment on above: Performed By: #### 1 4756354, [id number], 5460385 ####[facility] (DEFAULT)[address] [place] [address] Neut Abs# 10.3 x10 High 1.5-9.2 [facility] Comment on above: Performed By: #### 1 5914648, [id number], 3965614 ####[facility] (DEFAULT)[address] [place] [address] Neutrophils/100 WBC (Bld) 88 % Normal 44-88 [facility] Comment on above: Performed By: #### 1 1494298, 7782170581, 0733119 ####[facility] (DEFAULT)[address] [place] [address] CBC w/ Auto Diffon 3 Erythrocyte distribution width (RBC) [Ratio] 15.5 % High 11.5-15.0 [facility] Comment on above: Performed By: #### 1 5175897, [id number], 0822357 ####[facility] (DEFAULT)[address] [place] [address] Hematocrit (Bld) [Volume fraction] 29.6 % Low 33.7-40.4 [facility] Comment on above: Performed By: #### 1 4496090, [id number], 8169742 ####[facility] (DEFAULT)[address] [place] [address] Hemoglobin (Bld) [Mass/Vol] 10.1 g/dL Low 11.3-15.9 [facility] Comment on above: Performed By: #### 1 6897814, [id number], 4621457 ####[facility] (DEFAULT)[address] [place] [address] Man Diff? Auto Invalid Interpretation Code [facility] Comment on above: Performed By: #### 1 6276545, [id number], 7518613 ####[facility] (DEFAULT)[address] [place] [address] 98191 MCH (RBC) [Entitic mass] 30 pg Normal 24-34 [facility] Comment on above: Performed By: #### 1 2363683, [id number], 8800593 ####[facility] (DEFAULT)[address] [place] [address] 67286 MCHC (RBC) [Mass/Vol] 34 g/dL Normal 26-37 [facility] Comment on above: Performed By: #### 1 0711759, [id number], 3063199 ####[facility] (DEFAULT)[address] [place] [address] MCV (RBC) [Entitic vol] 88 fL Normal 81-100 [facility] Comment on above: Performed By: #### 1 8552806, [id number], 2779525 ####[facility] (DEFAULT)[address] [place] [address] 65831 Platelet 434 x10 High 138-427 [facility] Comment on above: Performed By: #### 1 0667031, 2206939324, 1796734 ####[facility] (DEFAULT)[address] [place] [address] 17243 Platelet mean volume (Bld) [Entitic vol] 6.2 fL Low 6.3-10.2 [facility] Comment on above: Performed By: #### 1 0386240, 2455400198, 0675092 ####[facility] (DEFAULT)[address] [place] [address] 26014 RBC 3.38 x10 Low 3.70-5.30 [facility] Comment on above: Performed By: #### 1 5934479, 7603165419, 6715429 ####[facility] (DEFAULT)[address] [place] [address] WBC 11.7 x10 High 3.5-10.5 [facility] Comment on above: Performed By: #### 1 7605573, [id number], 3630259 ####[facility] (DEFAULT)[address] [place] [address] CMP Standardon 10-12-2023 eGFR Non AA 57 mL/min/1.73m2 Invalid Interpretation Code [facility] Comment on above: Performed By: #### 1 3319025, [id number], 0324705 ####[facility] (DEFAULT)[address] [place] [address] eGFR AA >60 Invalid Interpretation Code [facility] Comment on above: Performed By: #### 1 5064860, [id number], 5362020 ####[facility] (DEFAULT)[address] [place] [address] Albumin [Mass/Vol] 2.4 g/dL Low 3.5-5.0 [facility] Comment on above: Performed By: #### 1 2602257, 6001541442, 1776038 ####[facility] (DEFAULT)[address] [place] [address] Albumin/Globulin [Mass ratio] 0.6 {ratio} Low 1.4-2.6 [facility] Comment on above: Performed By: #### 1 9897811, 5905389694, 9943578 ####[facility] (DEFAULT)[address] [place] [address] Alk Phos 105 IU/L High 32-91 [facility] Comment on above: Performed By: #### 1 1134711, [id number], 3373004 ####[facility] (DEFAULT)[address] [place] [address] ALT [Catalytic activity/Vol] 19.0 U/L Normal 14.0-54.0 [facility] Comment on above: Performed By: #### 1 9022012, [id number], 0396266 ####[facility] (DEFAULT)[address] [place] [address] 06622 Anion gap [Moles/Vol] 14.7 mmol/L Normal 5.0-19.0 [facility] Comment on above: Performed By: #### 1 1083896, [id number], 2176767 ####[facility] (DEFAULT)[address] [place] [address] 19936 AST [Catalytic activity/Vol] 17 U/L Normal 15-41 [facility] Comment on above: Performed By: #### 1 9908920, 8999451223, 2069286 ####[facility] (DEFAULT)[address] [place] [address] 50305 Bili Total 0.6 mg/dL Normal 0.3-1.2 [facility] Comment on above: Performed By: #### 1 8809376, [id number], 6497690 ####[facility] (DEFAULT)[address] [place] [address] 82865 Calcium [Mass/Vol] 8.8 mg/dL Low 8.9-10.3 [facility] Comment on above: Performed By: #### 1 6396880, 3008395360, 6049461 ####[facility] (DEFAULT)[address] [place] [address] 44642 Chloride [Moles/Vol] 103 mmol/L Normal 101-[address] [facility] Comment on above: Performed By: #### 1 9352122, [id number], 4201641 ####[facility] (DEFAULT)[address] [place] [address] 85550 CO2 [Moles/Vol] 25 mmol/L Normal 21-32 [facility] Comment on above: Performed By: #### 1 2750986, [id number], 8012244 ####[facility] (DEFAULT)[address] [place] [address] 88631 Creatinine [Mass/Vol] 0.94 mg/dL Normal 0.60-1.30 [facility] Comment on above: Performed By: #### 1 2451745, [id number], 6283697 ####[facility] (DEFAULT)[address] [place] [address] 77066 Globulin (S) [Mass/Vol] 3.5 g/dL Normal 1.5-4.3 [facility] Comment on above: Performed By: #### 1 7097566, [id number], 6821623 ####[facility] (DEFAULT)[address] [place] [address] 48108 Glucose [Mass/Vol] 161.0 mg/dL High 74.0-118.0 [facility] Comment on above: Performed By: #### 1 3492197, [id number], 9385680 ####[facility] (DEFAULT)[address] [place] [address] 69505 Osmolality 286 mOsm/L Invalid Interpretation Code [facility] Comment on above: Performed By: #### 1 6378992, [id number], 9945605 ####[facility] (DEFAULT)[address] [place] [address] 26254 Potassium [Moles/Vol] 4.7 mmol/L Normal 3.6-5.1 [facility] Comment on above: Performed By: #### 1 2274350, 1793474939, 6689325 ####[facility] (DEFAULT)[address] [place] [address] 02904 Protein [Mass/Vol] 5.9 g/dL Low 6.5-8.1 [facility] Comment on above: Performed By: #### 1 3623359, 7051622115, 5997451 ####[facility] (DEFAULT)[address] [place] [address] 89218 Sodium [Moles/Vol] 138.0 mmol/L Normal 136.0-144 . 0 [facility] Comment on above: Performed By: #### 1 1446471, [id number], 1935646 ####[facility] (DEFAULT)[address] [place] [address] 44125 Urea nitrogen [Mass/Vol] 32 mg/dL High 8-26 [facility] Comment on above: Performed By: #### 1 0805464, [id number], 6497912 ####[facility] (DEFAULT)[address] [place] [address] 16413 Urea nitrogen/Creatinine [Mass ratio] 34.0 mg/mg High 4.6-16.2 [facility] Comment on above: Performed By: #### 1 0944338, 1142210641, 6537969 ####[facility] (DEFAULT)[address] [place] [address] 56237 CRPon 10-12-2023 CRP 7.2 mg/dL High <=0.5 [facility] Comment on above: Performed By: #### 2 072270, 7470186 #### [facility] (DEFAULT) [address] [place], [place] [address] Consent Formson 10-12-2023 Consent Forms [id number] [facility] Nutrition Noteon 10-12-2023 Nutrition Note Pt admitted w/ Rt kn ee pain, recent washout. CT scan noting septic arthritis, IV atb initiated. Pt placed on a Regular diet, so far eating 100%. Admit wt 60.8kg no wt hx on file, denied any wt changes per trimmer sorter assessment. No chewing/swallowing problems identified. Labs reviewed [...] taking extra protein at home. To follow. [facility] Pharmacy Noteon 10-12-2023 Pharmacy Note This [...] on: 10/12/2023 10:24 EST] Andrés Grover Normal [facility] Procalcitoninon 10-12-2023 Procalcitonin 0.109 ng/mL Low 0.500-1.00 0 [facility] Comment on above: Performed By: #### 7 [id number] #### [facility] (DEFAULT) [address] [place] [address] Sed Rateon 10-12-2023 Sed Rate 74 mm/hr High 0-20 [facility] Comment on above: Performed By: #### 2 195385, 5474505 #### [facility] (DEFAULT) [address] [place] [address] 59559 US Echocardiogram Completeon 10-12-2023 US Echocardiogram Complete [...] Junction2.89 cm F: 2.3 - 2.9 LV Xsym811.22 g LVOT Diameter 2.09 cm IVC1.25 (<= [...] Single Plane 4 CH 25.69 mLBiplane LA Pobvmu28.33 mL Single Plane 2 CH67.19 mLLA ESV Index29.65 mL/m2 Right Atrium Area Systole RA Systolic Area A4C9.10 cm2RA Systolic Vol A4C19.30 mL Aortic Valve AoV Peak Velocity1.30 m/sLVOT Peak Velocity1.04 m/s AO Mean Velocity0.86 m/sLVOT Mean Velocity0.61 m/s AO Peak PG6.80 mmHgLVOT Peak PG4.31 mmHg AO Mean PG3.48 mmHgLVOT Mean PG1.86 mmHg AO V2 VTI22.79 cmLVOT V1 VTI20.10 cm ESTUARDO (Vmax)2.73 wl0ZSRX Area 3.43 cm2 ESTUARDO (VTI)3.03 cm2SV (LVOT) 68.96 mL Indexed ESTUARDO (VTI)1.85 cm2/m2AI [place] 2.40 m/s2 AI YYC196.11 ms Mitral Valve MV Max Mvstgywp165.09 m/sMV PHT58.48 ms MV E Max Velocity0.55 m/sMVA (PHT)3.76 cm2 MV A Max Velocity0.67 m/sMR FBK944.58 cm E/A Ratio0.8MR Peak Velocity5.74 m/s MV Decel. Xiff718.67 ms TDI Med e' Velocity5.08 cm/sMV E / Medial e' 10.72 Lat e' Velocity6.45 cm/sMV E / Lateral e' 8.45 TV S'16.13 cm/s Pulmonary Valve PV Peak Velocity0.78 m/sPV Peak PG2.43 mmHg OK End Diastolic Carlos.62.56 m/s PV Mean PG1.46 mmHg Tricuspid Valve TR Peak Velocity3.10 m/sRAP Estimate3.00 mmHg TR Peak PG38.55 lsYdIJWP52.55 mmHg Final Signed (Electronic Signature): Marquis Pulido MD 10/12/23 3:45 pm Technologist: ERA [facility] XR Chest 1 View Frontalon XR [...] MD 10/12/23 9:27 am Technologist: SANGEETA SIMPSON [facility] .Auto Diff 10-11-2023 Auto [place] % 7 % Normal 11-16 [facility] Comment on above: Performed By: #### 2 [id number], [id number], 53251296, 8483980910, 7560768371, 5201152999, 3736236544, 2830505 ####[facility] (DEFAULT)[address] [place] [address] 42756 Baso Abs# 0.1 x10 Normal 0.0-0.2 [facility] Comment on above: Performed By: #### 2 591769, 1096924090, 65549336, 2479276923, 4105779960, 7523142482, 2992282111, 2803990 ####[facility] (DEFAULT)[address] [place] [address] 02011 Basophils/100 WBC (Bld) 0.4 % Normal 0.2-2.0 [facility] Comment on above: Performed By: #### 2 623465, [id number], 05994914, 7418529640, 4862338389, 9679541703, 9521539401, 6195902 ####[facility] (DEFAULT)[address] [place] [address] 58003 Eos Abs# 0.0 x10 Normal 0.0-0.4 [facility] Comment on above: Performed By: #### 2 163463, [id number], 05114264, 4937978749, 3913484088, 7435247176, 3430392587, 6045756 ####[facility] (DEFAULT)[address] [place] [address] 56345 Eosinophils/100 WBC (Bld) 0.2 % Low 0.9-4.0 [facility] Comment on above: Performed By: #### 2 456083, [id number], 25725943, 0754037730, 1011338663, 6449964778, 8925181748, 3252847 ####[facility] (DEFAULT)[address] [place] [address] 73545 Lymph Abs# 1.2 x10 Low 1.3-2.9 [facility] Comment on above: Performed By: #### 2 659768, 7254053001, 21405068, 4638806535, 8025518304, 4088646037, 1939685137, 6347604 ####[facility] (DEFAULT)[address] [place] [address] 79647 Lymphocytes/100 WBC (Bld) 8 % Low 14-48 [facility] Comment on above: Performed By: #### 2 894981, 4891484667, 94485315, 3725736607, 9395335247, 8360140823, 1894413343, 6637900 ####[facility] (DEFAULT)[address] [place] [address] 69238 [place] Abs# 1.1 x10 High 0.0-0.8 [facility] Comment on above: Performed By: #### 2 935244, 4297561498, 54046212, 4277114236, 3315970316, 1626312737, 0957804363, [id number] ####[facility] (DEFAULT)[address] [place] [address] Neut Abs# 13.6 x10 High 1.5-9.2 [facility] Comment on above: Performed By: #### 2 [id number], [id number], [id number], [id number], [id number], [id number], [id number], [id number] ####[facility] (DEFAULT)[address] [place] [address] Neutrophils/100 WBC (Bld) 85 % Normal 44-88 [facility] Comment on above: Performed By: #### 2 [id number], [id number], [id number], [id number], [id number], [id number], [id number], [id number] ####[facility] (DEFAULT)[address] [place] [address] Anesthesia Noteon 10-11-2023 Anesthesia Note Patient: ALICIA [...] 10/11/2023 13:00 EST] Sheryl Dennis DO Normal [facility] Anesthesia Note Patient: ALICIA BULLOCK Age: 83 [...] All Problems HTN (hypertension) / SNOMED CT 0601697255 / Confirmed Hypothyroidism / SNOMED CT 38154918 / Confirmed Histories Family History: No family history items have been selected or recorded. Procedure history: Appendectomy (852180844). History of total hysterectomy ([id number]). Knee ([id number]). Comments: 10/11/2023 7:23 EST - Halblaub, Sidsel RN total left Plantar fasciitis ([id number]). Comments: 10/11/2023 7:26 EST - Radha Seo RN left Cholecystectomy ([id number]). Metatarsal (34585411). Comments: 10/11/2023 7:25 EST - Radha Seo [...] Oriented. Review / Management Laboratory Results Plan [place] [employer]#(ASA) physical status classification: Class [...] 10/11/2023 09:23 EST] Sheryl Dennis DO Normal [facility] BF Cell Cnton 10-11-2023 Appear BF Cloudy [facility] Comment on above: Order Comment: right knee fluid Performed By: #### 6 [id number] #### [facility] (DEFAULT) [address] [place] [address] 37537 Cell Cnt BF Type Synovial Fl [facility] Comment on above: Order Comment: right knee fluid Performed By: #### 6 [id number] #### [facility] (DEFAULT) [address] [place] [address] 14438 Color BF Red [facility] Comment on above: Order Comment: right knee fluid Performed By: #### 6 [id number] #### [facility] (DEFAULT) [address] [place] [address] 29530 RBC BF [id number] Invalid Interpretation Code [facility] Comment on above: Order Comment: right knee fluid Performed By: #### 6 [id number] #### [facility] (DEFAULT) [address] [place] [address]76 [place] [address] Invalid Interpretation Code [facility] Comment on above: Order Comment: right knee fluid Performed By: #### 6 [id number] #### [facility] (DEFAULT) [address] [place] [address] 59890 BMP Standardon 10-11-2023 Breakpoint Chem [facility] Comment on above: Performed By: #### 2 925972, [id number], 12991421, 7750355991, 3644520306, 4365852662, 6290549660, 8456557 ####[facility] (DEFAULT)[address] [place] [address] 43662 eGFR Non AA 57 mL/min/1.73m2 Invalid Interpretation Code [facility] Comment on above: Performed By: #### 2 964243, [id number], 96580418, 5791411300, 5872570481, 4318645537, 6476658250, 5891912 ####[facility] (DEFAULT)[address] [place] [address] 96938 eGFR AA >60 Invalid Interpretation Code [facility] Comment on above: Performed By: #### 2 051789, [id number], 09627025, 1629113932, 7609446549, 7224935481, 3636520714, 9548280 ####[facility] (DEFAULT)[address] [place] [address] 88089 Anion gap [Moles/Vol] 13.6 mmol/L Normal 5.0-19.0 [facility] Comment on above: Performed By: #### 2 722613, [id number], 68210821, 7308516134, 2639780849, 6982972842, 4586721553, 6292198 ####[facility] (DEFAULT)[address] [place] [address] 64629 Calcium [Mass/Vol] 9.6 mg/dL Normal 8.9-10.3 [facility] Comment on above: Performed By: #### 2 700943, [id number], 68374056, 3185216076, 8062346266, 6012873426, 1360755805, 4416602 ####[facility] (DEFAULT)[address] [place] [address] 33832 Chloride [Moles/Vol] 102 mmol/L Normal 101-[address] [facility] Comment on above: Performed By: #### 2 292115, [id number], 02426571, 4065193697, 5291700195, 7873718226, 9977129273, 8171834 ####[facility] (DEFAULT)[address] [place] [address] 16121 CO2 [Moles/Vol] 25 mmol/L Normal 21-32 [facility] Comment on above: Performed By: #### 2 682590, 7078561404, 83216602, 4431412850, 9712282084, 1189153060, 9628795999, 0521271 ####[facility] (DEFAULT)[address] [place] [address] 30028 Creatinine [Mass/Vol] 0.93 mg/dL Normal 0.60-1.30 [facility] Comment on above: Performed By: #### 2 478729, [id number], 38185167, 7558527302, 6451531621, 2457079386, 4326390755, 9636470 ####[facility] (DEFAULT)[address] [place] [address] 65555 Glucose [Mass/Vol] 114.0 mg/dL Normal 74.0-118.0 [facility] Comment on above: Performed By: #### 2 514552, [id number], 23838105, 6229515090, 6278674850, 1407751034, 8769912712, 9098599 ####[facility] (DEFAULT)[address] [place] [address] 58784 Osmolality 279 mOsm/L Invalid Interpretation Code [facility] Comment on above: Performed By: #### 2 149409, 7752326840, 01993406, 3671382659, 9504674416, 7786459079, 5245208796, 1357609 ####[facility] (DEFAULT)[address] [place] [address] 54011 Potassium [Moles/Vol] 4.6 mmol/L Normal 3.6-5.1 [facility] Comment on above: Performed By: #### 2 578973, [id number], 96724219, 5740871626, 2442509789, 0168666160, 5378345425, 7608373 ####[facility] (DEFAULT)[address] [place] [address] 29374 Sodium [Moles/Vol] 136.0 mmol/L Normal 136.0-144 . 0 [facility] Comment on above: Performed By: #### 2 494696, 1107574993, 11285451, 1071485321, 6204054738, 1119868363, 0696098569, 9630758 ####[facility] (DEFAULT)[address] [place] [address] 10583 Urea nitrogen [Mass/Vol] 30 mg/dL High 06-30 [facility] Comment on above: Performed By: #### 2 615530, 7267230087, 79176455, 2364078811, 1117021706, 4407689170, 0547691004, 0885902 ####[facility] (DEFAULT)[address] [place] [address] Urea nitrogen/Creatinine [Mass ratio] 32.2 mg/mg High 4.6-16.2 [facility] Comment on above: Performed By: #### 2 796582, 3488420029, 06634413, 1616479504, 6081873634, 2259320590, 8402682827, 4859771 ####[facility] (DEFAULT)[address] [place] [address] Body Fluid Diffon 10-11-2023 BF Bands % 2 Invalid Interpretation Code [facility] Comment on above: Order Comment: Right knee fluidVerbal order per Kelly Long Performed By: #### 2 [id number] ####[facility] (DEFAULT)[address] [place] [address] BF Baso % 0 Invalid Interpretation Code [facility] Comment on above: Order Comment: Right knee fluidVerbal order per Kelly Long Performed By: #### 2 [id number] ####[facility] (DEFAULT)[address] [place] [address] BF Eos % 0 Invalid Interpretation Code [facility] Comment on above: Order Comment: Right knee fluidVerbal order per Kelly Long Performed By: #### 2 [id number] ####[facility] (DEFAULT)[address] [place] [address] BF Lymph % 5 Invalid Interpretation Code [facility] Comment on above: Order Comment: Right knee fluidVerbal order per Kelly Long Performed By: #### 2 [id number] ####[facility] (DEFAULT)[address] [place] [address] BF [place] % 0 Invalid Interpretation Code [facility] Comment on above: Order Comment: Right knee fluidVerbal order per Kelly Long Performed By: #### 2 [id number] ####[facility] (DEFAULT)[address] [place] [address] 79570 BF Segs % 93 Invalid Interpretation Code [facility] Comment on above: Order Comment: Right knee fluidVerbal order per Kelly Long Performed By: #### 2 [id number] ####[facility] (DEFAULT)[address] [place] [address] CBC w/ Auto Diffon 3 Erythrocyte distribution width (RBC) [Ratio] 15.3 % High 11.5-15.0 [facility] Comment on above: Performed By: #### 2 584993, 1072999083, 73321660, 9459552060, 6800665295, 6232263627, 2558348846, 4637550 ####[facility] (DEFAULT)[address] [place] [address] Hematocrit (Bld) [Volume fraction] 36.1 % Normal 33.7-40.4 [facility] Comment on above: Performed By: #### 2 581616, 8982902769, 73266737, 0117597640, 2479409802, 4586216942, 7319180319, 6187905 ####[facility] (DEFAULT)[address] [place] [address] Hemoglobin (Bld) [Mass/Vol] 11.8 g/dL Normal 11.3-15.9 [facility] Comment on above: Performed By: #### 2 053532, 5687288244, 29201694, 6125261396, 8906166224, 5265636015, 3805800356, 1150003 ####[facility] (DEFAULT)[address] [place] [address] 56069 Man Diff? Auto Invalid Interpretation Code [facility] Comment on above: Performed By: #### 2 565971, 6413068718, 37040915, 1424146276, 1887169061, 8913133734, 8026416045, 2371563 ####[facility] (DEFAULT)[address] [place] [address] MCH (RBC) [Entitic mass] 29 pg Normal 24-34 [facility] Comment on above: Performed By: #### 2 677087, 9643534019, 04417477, 6079013799, 2313944419, 6150955114, 1779895636, 7296959 ####[facility] (DEFAULT)[address] [place] [address] MCHC (RBC) [Mass/Vol] 33 g/dL Normal 26-37 [facility] Comment on above: Performed By: #### 2 938454, 0256322767, 22765185, 4767194905, 6951869210, 6498885752, 1165277302, 6995785 ####[facility] (DEFAULT)[address] [place] [address] MCV (RBC) [Entitic vol] 89 fL Normal 81-100 [facility] Comment on above: Performed By: #### 2 679960, 7505211997, 47897859, 4086839429, 4058254534, 4430555848, 5317671026, 6720791 ####[facility] (DEFAULT)[address] [place] [address] Platelet 492 x10 High 138-427 [facility] Comment on above: Performed By: #### 2 578314, 4218525261, 54714184, 2330032765, 2511299652, 0560147138, 8056444989, 1898842 ####[facility] (DEFAULT)[address] [place] [address] Platelet mean volume (Bld) [Entitic vol] 6.2 fL Low 6.3-10.2 [facility] Comment on above: Performed By: #### 2 710890, 1954125420, 39535345, 8128342536, 4345998546, 5733065082, 4289189962, 6062376 ####[facility] (DEFAULT)[address] [place] [address] RBC 4.05 x10 Normal 3.70-5.30 [facility] Comment on above: Performed By: #### 2 316442, 9616723814, 71985554, 3135586381, 5349562280, 1678641413, 7416842604, 9717297 ####[facility] (DEFAULT)[address] [place] [address] WBC 16.0 x10 High 3.5-10.5 [facility] Comment on above: Result Comment: Slid e Reviewed Performed By: #### 2 505832, 1780336291, 49143608, 3017522892, 4613596562, 2427532132, 4076350169, 0181231 ####[facility] (DEFAULT)[address] [place] [address] CRPon 10-11-2023 CRP 6.1 mg/dL High <=0.5 [facility] Comment on above: Performed By: #### 2 887258 ####[facility] (DEFAULT)[address] [place] [address] CT Lower Extremity w/ Contra st Righton [...] MD 10/11/23 4:31 pm Technologist: Jeanette LUKE [facility] Extra SSTon 10-11-2023 Tube Collected Yes Invalid Interpretation Code [facility] Comment on above: Performed By: #### 2 060598, 9512791154, 46824797, 3376718203, 9541249760, 9147329195, 9466730874, 4080501 ####[facility] (DEFAULT)[address] [place] [address] MAGR Intraoperative Recordon 10-11-2023 MAGR Intraoperative Record MAGR Intra-Op Record Summary Primary Physician: JOB AGUILAR DO Finalized Date/Time: 10/11/23 14:40:54 Pt. Name: ALICIA BULLOCK ESTER Cisneros./Sex: 1940 FEMALE Med Rec #: [id number] Physician: JOB AGUILAR DO Financial #: [id number] Pt. Type: I Room/Bed: [facility] Admit/Disch: 10/11/23 06:57:39 - Institution: Case Times [...] Role Performed Surgeon - Primary Anesthesiologist of Care Partner Record Time In 10/11/23 11:40:00 10/11/23 11:40:00 10/11/23 11:40:00 Time Out 10/11/23 12:48:00 10/11/23 12:53:00 10/11/23 12:53:00 Procedure Arthroscopy Knee(Right) Arthroscopy Knee(Right) Arthroscopy Knee(Right) Last Modified By: Sandra Shepard RN, Barbara RN Long, Barbara RN 10/11/23 12:55:35 10/11/23 12:55:35 10/11/23 12:55:35 Entry 4 Entry 5 Case Attendee Gloria Saldaña CST, CST, Lauren M CSFA CSFA Role Performed Scrub Personnel Cutter Operator Time In 10/11/23 11:40:00 10/11/23 11:40:00 Time [...] Sheryl Dennis DO, Sandra Shepard RN, Piotr [employer] ADMINISTRATOR, Gloria [employer] ADMINISTRATOR CSFA, Rina Muñoz CSFA Last Modified By: [...] (O.80) Ye (more content not included)... [facility] 3 [facility] PACU Record [facility] PACU Record [facility] Physician: JOB AGUILAR DO Finalized Date/Time: 10/11/23 13:56:49 Pt. Name: MILANAALICIA/Sex: 1940 FEMALE Med Rec #: [id number] Physician: JOB AGUILAR DO Financial #: [id number] Pt. Type: D Room/Bed: [facility]/1 Admit/Disch: 10/11/23 06:57:39 - Institution: PACU Case Times MAGR Entry 1 In PACU I 10/11/23 12:55:00 Discharge from PACU 10/11/23 13:40:00 I Last Modified By: Radha Seo RN 10/11/23 13:56:45 Finalized By: Radha Seo RN Document Signatures Signed By: Radha Seo RN 10/11/23 13:56 [facility] MAGR Preoperative Recordon 1 12-12-2022 MAGR Preoperative Record MAGR Pre-Op Record Summary Primary Physician: JOB AGUILAR DO Finalized Date/Time: 10/11/23 12:17:03 Pt. Name: ALICIA BULLOCK /Sex: 1940 FEMALE Med Rec #: [id number] Physician: JOB AGUILAR DO Financial #: [id number] Pt. Type: D Room/Bed: / Admit/Disch: 10/11/23 [...] Signed By: Sandra Shepard RN 10/11/23 12:17 [facility] Pharmacy Noteon 10-11-2023 Pharmacy Note The [...] on: 10/13/2023 09:39 EST] Andres Butler Normal [facility] Sed Rateon 10-11-2023 Sed Rate 80 mm/hr High 0-20 [facility] Comment on above: Performed By: #### 2 904780, [id number], 36601503, 4143449580, 2314575576, 5336686988, 1057695922, 8010208 ####[facility] (DEFAULT)[address] [place] [address] CREATININEon 04-04-2023 Creatinine [Mass/Vol] 1.25 mg/dL Critically high 0.55-1.02 [facility] Comment on above: Performed By: ###Ara GORDON #### [facility] [address] [place] [address] [address] Lolita Alvarado EGFR-AF LAO 49 mL/min/1.73m2 Critically low >=60 [facility] Comment on above: Performed By: #### Jose D GORDON #### [facility] [address] [place], [place] [address] Dr. Lolita Alvarado EGFR-NON AF LAO 41 mL/min/1.73m2 Critically low >=60 [facility] Comment on above: Performed By: #### C HEIDI #### [facility] [address] [place], [place] [address] CHEST W CONon [...] RIGO WHITTAKER Date: 2023-04-04 16:[address] [facility] [address] CHEST W CONon 12-26-2022 CT CHEST [...] by: RIGO WHITTAKER Date: 2022-12-26 09:16 Normal [facility] CREATININEon 12-23-2022 Creatinine [Mass/Vol] 0.85 mg/dL Normal 0.55-1.02 [facility] Comment on above: Performed By: #### C HEIDI #### [facility] [address] [place] [address] [address] Lolita Alvarado EGFR-AF LAO >60 Normal >=60 [facility] Comment on above: Performed By: #### C HEIDI #### [facility] [address] [place] [address] [address] Lolita Alvarado EGFR-NON AF LAO >60 Normal >=60 [facility] Comment on above: Performed By: #### C HEIDI #### [facility] [address] [place] [address] [address] Lolita Alvarado Glucose Glucometer (dC) [M ass/Vol]Ordered By: Santiago Patricio on 11-01-2022 Glucose [Mass/Vol] 97 mg/dL [facility] Comment on above: Random Glucose Refer ence Range is dependent on time and content of last meal. Glucose of more than 200 mg/dL in a nonstressed, ambulatory subject supports the diagnosis of Diabetes Mellitus. Glucose Poct Glucometerson 1 01-02-2022 Glucose [Mass/Vol] 97 mg/dL Normal [facility] Comment on above: Result Comment: [facility] Glucose Reference Range is dependent on time and content of last meal. Glucose of more than 200 mg/dL in a nonstressed, ambulatory subject supports the diagnosis of Diabetes Mellitus. PERFORMED BY: [place] [address] PATHOLOGIST FOOD PREPARATION WORKER NEW MEDEIROS M.D. Performed By: #### G LULS #### Point of Care testing , PET tumor init tx strat sb-m ton 11-01-2022 PET tumor init tx strat sb-mt [facility] Main [place] [address] [place], [place] [id number] Nuclear Medicine Report Signed Patient: Alicia Bullock MR#: [id number] : 1940 Acct:[id number] Age/Sex: 82 / F ADM Date: 11/01/22 Loc: Room: Type: [facility] Attending Dr: Santiago Patricio MD Copies to: [...] Candi Leigh M.D.11/01/2022 1:32 PM Dictation Location: [place] [address] Transcribed By: [facility] 11/01/22 1332 Dictated By: Candi Leigh MD 11/01/22 1300 Signed By: 11/01/22 [address] [facility] [address] CHEST W CONon 10-24-2022 CT [...] RIGO WHITTAKER Date: 2022-10-23 22:21 Normal [facility] CREATININEon 10-23-2022 Creatinine [Mass/Vol] 1.08 mg/dL Critically high 0.55-1.02 [facility] Comment on above: Performed By: #### C HEIDI #### [facility] [address] [place] [address] [address] Lolita Alvarado EGFR-AF LAO 59 mL/min/1.73m2 Critically low >=60 [facility] Comment on above: Performed By: #### C HEIDI #### [facility] [address] [place] [address] [address] Lolita Alvarado EGFR-NON AF LAO 48 mL/min/1.73m2 Critically low >=60 [facility] Comment on above: Performed By: #### C HEIDI #### [facility] [address] [place] [address] TSPINE WO CONon [...] spine. 3. No acute abnormality. Normal [facility] MRI [place] WO CONon 09-13-20 MRI [facility] WO CON EXAMINATION: MRI LS INE WO [...] SHERYL SRINIVASAN Date: 2022-09-13 08:21 Normal [facility] US NOLBERTO DOP LEG RTon 08-10-20 22 [...] BRAD GONZALEZ Date: 2022-08-10 15:05 Normal [facility] CBC AUTO DIFFon 08-02-2022 BASO # 0.0 103/ul Normal 0.0-0.1 [facility] Comment on above: Performed By: #### C BC #### [facility] [address] [place] [address] Dr. Lolita Alvarado Basophils/100 WBC (Bld) 0.3 % Normal 0.2-2.0 [facility] Comment on above: Performed By: #### C BC #### [facility] [address] [place] [address] [address] Lolita Alvarado EO # 0.0 103/ul Normal 0.0-0.7 [facility] Comment on above: Performed By: #### C BC #### [facility] [address] [place] [address] Dr. Lolita Alvarado Eosinophils/100 WBC (Bld) 0.3 % Critically low 0.9-7.0 [facility] Comment on above: Performed By: #### C BC #### [facility] [address] [place] [address] Dr. Lolita Alvarado Erythrocyte distribution width (RBC) [Ratio] 13.3 % Normal 11.0-15.0 [facility] Comment on above: Performed By: #### C BC #### [facility] [address] [place] [address] Dr. Lolita Alvarado Hematocrit (Bld) [Volume fraction] 34.6 % Critically low 36.0-48.0 [facility] Comment on above: Performed By: #### C BC #### [facility] [address] [place] [address] Dr. Lolita Alvarado Hemoglobin (Bld) [Mass/Vol] 11.4 g/dL Critically low 12.0-16.0 [facility] Comment on above: Performed By: #### C BC #### [facility] [address] [place] [address] Dr. Lolita Alvarado IG # 0.04 10e3/ul Critically high 0.00-0.03 [facility] Comment on above: Performed By: #### C BC #### [facility] [address] [place] [address] Dr. Lolita Alvarado IG % 1.0 % Critically high 0.0-0.5 [facility] Comment on above: Performed By: #### C BC #### [facility] [address] [place] [address] Dr. Lolita Alvarado LYMPH # 1.2 103/ul Normal 1.2-3.8 [facility] Comment on above: Performed By: #### C BC #### [facility] [address] [place] [address] Dr. Lolita Alvarado Lymphocytes/100 WBC (Bld) 30.9 % Normal 20.5-60.0 [facility] Comment on above: Performed By: #### C BC #### [facility] [address] [place] [address] Dr. Lolita Alvarado MANUAL DIFF REQ NO Normal [facility] Comment on above: Performed By: #### C BC #### [facility] [address] [place] [address] [address] Lolita Alvarado MCH (RBC) [Entitic mass] 31.0 pg Normal 26.7-34.0 [facility] Comment on above: Performed By: #### C BC #### [facility] [address] [place] [address] Dr. Lolita Alvarado MCHC (RBC) [Mass/Vol] 32.9 g/dL Normal 29.9-35.2 [facility] Comment on above: Performed By: #### C BC #### [facility] [address] [place] [address] Dr. Lolita Alvarado MCV (RBC) [Entitic vol] 94.0 fL Normal 81.0-99.0 [facility] Comment on above: Performed By: #### C BC #### [facility] [address] [place] [address] Dr. Lolita Alvarado MONO # 0.4 103/ul Normal 0.3-0.8 [facility] Comment on above: Performed By: #### C BC #### [facility] [address] [place] [address] Dr. Lolita Alvarado Monocytes/100 WBC (Bld) 10.6 % Normal 1.7-12.0 [facility] Comment on above: Performed By: #### C BC #### [facility] [address] [place] [address] Dr. Lolita Alvarado NEUT # 2.2 103/ul Normal 1.4-6.5 [facility] Comment on above: Performed By: #### C BC #### [facility] [address] [place] [address] Dr. Lolita Alvarado Neutrophils/100 WBC (Bld) 56.9 % Normal 43.0-75.0 [facility] Comment on above: Performed By: #### C BC #### [facility] [address] [place] [address] Dr. Lolita Alvarado Platelet mean volume (Bld) [Entitic vol] 8.1 fL Critically low 9.5-13.5 [facility] Comment on above: Performed By: #### C BC #### [facility] [address] [place] [address] [address] Lolita Alvarado PLT 226 103/ul Normal 150-450 [facility] Comment on above: Performed By: #### C BC #### [facility] [address] [place] [address] [address] Lolita Alvarado RBC 3.68 106/ul Critically low 4.20-5.40 [facility] Comment on above: Performed By: #### C BC #### [facility] [address] [place] [address] [address] Lolita Alvarado WBC 3.9 103/ul Critically low 4.0-11.0 [facility] Comment on above: Performed By: #### C BC #### [facility] [address] [place] [address] Dr. Lolita Alvarado [facility] SARS-CoV-2 (COVID-19) RNA EDWIN+probe Ql (Unsp spec) Detected Critically abnormal NOT DETECTED [facility] Comment on above: Result Comment: This test is not yet approved or cleared by the [place] FDA. When there are no FDA-approved or cleared tests available, and other criteria are met, FDA can make tests available under an emergency access mechanism called an Emergency Use Authorization (EUA). The EUA for this test is supported by the Professor Of Surgery of Health and Human Service's (HHS's) declaration [...] used). Performed By: #### C BC #### [facility] [address] [place] [address] Dr. Lolita Alvarado CBC AUTO DIFFon 06-02-2022 BASO # 0.0 103/ul Normal 0.0-0.1 [facility] Comment on above: Performed By: #### C BC #### [facility] [address] [place] [address] [address] Lolita Alvarado Basophils/100 WBC (Bld) 0.4 % Normal 0.2-2.0 [facility] Comment on above: Performed By: #### C BC #### [facility] [address] [place] [address] Dr. Lolita Alvarado EO # 0.0 103/ul Normal 0.0-0.7 [facility] Comment on above: Performed By: #### C BC #### [facility] [address] [place] [address] Dr. Lolita Alvarado Eosinophils/100 WBC (Bld) 0.2 % Critically low 0.9-7.0 [facility] Comment on above: Performed By: #### C BC #### [facility] [address] [place] [address] Dr. Lolita Alvarado Erythrocyte distribution width (RBC) [Ratio] 12.8 % Normal 11.0-15.0 [facility] Comment on above: Performed By: #### C BC #### [facility] [address] [place] [address] Dr. Lolita Alvarado Hematocrit (Bld) [Volume fraction] 30.1 % Critically low 36.0-48.0 [facility] Comment on above: Performed By: #### C BC #### [facility] [address] [place] [address] Dr. Lolita Alvarado Hemoglobin (Bld) [Mass/Vol] 10.3 g/dL Critically low 12.0-16.0 [facility] Comment on above: Performed By: #### C BC #### [facility] [address] [place] [address] Dr. Lolita Alvarado IG # 0.02 10e3/ul Normal 0.00-0.03 [facility] Comment on above: Performed By: #### C BC #### [facility] [address] [place] [address] Dr. Lolita Alvarado IG % 0.4 % Normal 0.0-0.5 [facility] Comment on above: Performed By: #### C BC #### [facility] [address] [place] [address] Dr. Lolita Alvarado LYMPH # 0.7 103/ul Critically low 1.2-3.8 [facility] [facility] Comment on above: Performed By: #### C BC #### [facility] [address] [place] [address] Dr. Lolita Alvarado Lymphocytes/100 WBC (Bld) 14.9 % Critically low 20.5-60.0 [facility] Comment on above: Performed By: #### C BC #### [facility] [address] [place] [address] Dr. Lolita Alvarado MANUAL DIFF REQ NO Normal [facility] Comment on above: Performed By: #### C BC #### [facility] [address] [place] [address] Dr. Lolita Alvarado MCH (RBC) [Entitic mass] 33.6 pg Normal 26.7-34.0 [facility] Comment on above: Performed By: #### C BC #### [facility] [address] [place] [address] Dr. Lolita Alvarado MCHC (RBC) [Mass/Vol] 34.2 g/dL Normal 29.9-35.2 [facility] Comment on above: Performed By: #### C BC #### [facility] [address] [place] [address] Dr. Lolita Alvarado MCV (RBC) [Entitic vol] 98.0 fL Normal 81.0-99.0 [facility] Comment on above: Performed By: #### C BC #### [facility] [address] [place] [address] Dr. Lolita Alvarado MONO # 0.4 103/ul Normal 0.3-0.8 [facility] Comment on above: Performed By: #### C BC #### [facility] [address] [place] [address] Dr. Lolita Alvarado Monocytes/100 WBC (Bld) 9.0 % Normal 1.7-12.0 [facility] Comment on above: Performed By: #### C BC #### [facility] [address] [place] [address] Dr. Lolita Alvarado NEUT # 3.4 103/ul Normal 1.4-6.5 [facility] Comment on above: Performed By: #### C BC #### [facility] [address] [place] [address] Dr. Lolita Alvarado Neutrophils/100 WBC (Bld) 75.1 % Critically high 43.0-75.0 [facility] Comment on above: Performed By: #### C BC #### [facility] [address] [place] [address] Dr. Lolita Alvarado Platelet mean volume (Bld) [Entitic vol] 8.5 fL Critically low 9.5-13.5 [facility] Comment on above: Performed By: #### C BC #### [facility] [address] [place] [address] Dr. Lolita Alvarado PLT 229 103/ul Normal 150-450 [facility] Comment on above: Performed By: #### C BC #### [facility] [address] [place] [address] Dr. Lolita Alvarado RBC 3.07 106/ul Critically low 4.20-5.40 [facility] Comment on above: Performed By: #### C BC #### [facility] [address] [place] [address] Dr. Lolita Alvarado WBC 4.6 103/ul Normal 4.0-11.0 [facility] Comment on above: Performed By: #### C BC #### [facility] [address] [place] [address] Dr. Lolita Alvarado CBC AUTO DIFFon 06-01-2022 BASO # 0.0 103/ul Normal 0.0-0.1 [facility] Comment on above: Performed By: #### C BC #### [facility] [address] [place] [address] Dr. Lolita Alvarado Basophils/100 WBC (Bld) 0.7 % Normal 0.2-2.0 [facility] Comment on above: Performed By: #### C BC #### [facility] [address] [place] [address] Dr. Lolita Alvarado EO # 0.2 103/ul Normal 0.0-0.7 [facility] Comment on above: Performed By: #### C BC #### [facility] [address] [place] [address] Dr. Lolita Alvarado Eosinophils/100 WBC (Bld) 3.7 % Normal 0.9-7.0 [facility] Comment on above: Performed By: #### C BC #### [facility] [address] [place] [address] Dr. Lolita Alvarado Erythrocyte distribution width (RBC) [Ratio] 13.0 % Normal 11.0-15.0 [facility] Comment on above: Performed By: #### C BC #### [facility] [address] [place] [address] Dr. Lolita Alvarado Hematocrit (Bld) [Volume fraction] 32.2 % Critically low 36.0-48.0 [facility] Comment on above: Performed By: #### C BC #### [facility] [address] [place] [address] Dr. Lolita Alvarado Hemoglobin (Bld) [Mass/Vol] 10.6 g/dL Critically low 12.0-16.0 [facility] Comment on above: Performed By: #### C BC #### [facility] [address] [place] [address] Dr. Lolita Alvarado IG # 0.02 10e3/ul Normal 0.00-0.03 [facility] Comment on above: Performed By: #### C BC #### [facility] [address] [place] [address] Dr. Lolita Alvarado IG % 0.5 % Normal 0.0-0.5 [facility] Comment on above: Performed By: #### C BC #### [facility] [address] [place] [address] Dr. Lolita Alvarado LYMPH # 1.4 103/ul Normal 1.2-3.8 [facility] Comment on above: Performed By: #### C BC #### [facility] [address] [place] [address] Dr. Lolita Alvarado Lymphocytes/100 WBC (Bld) 32.4 % Normal 20.5-60.0 [facility] Comment on above: Performed By: #### C BC #### [facility] [address] [place] [address] Dr. Lolita Alvarado MANUAL DIFF REQ NO Normal [facility] Comment on above: Performed By: #### C BC #### [facility] [address] [place] [address] Dr. Lolita Alvarado MCH (RBC) [Entitic mass] 32.1 pg Normal 26.7-34.0 [facility] Comment on above: Performed By: #### C BC #### [facility] [address] [place] [address] Dr. Lolita Alvarado MCHC (RBC) [Mass/Vol] 32.9 g/dL Normal 29.9-35.2 [facility] Comment on above: Performed By: #### C BC #### [facility] [address] [place] [address] Dr. Lolita Alvarado MCV (RBC) [Entitic vol] 97.6 fL Normal 81.0-99.0 [facility] Comment on above: Performed By: #### C BC #### [facility] [address] [place] [address] Dr. Lolita Alvarado MONO # 0.6 103/ul Normal 0.3-0.8 [facility] Comment on above: Performed By: #### C BC #### [facility] [address] [place] [address] Dr. Lolita Alvarado Monocytes/100 WBC (Bld) 14.0 % Critically high 1.7-12.0 [facility] Comment on above: Performed By: #### C BC #### [facility] [address] [place] [address] Dr. Loltia Alvarado NEUT # 2.1 103/ul Normal 1.4-6.5 [facility] Comment on above: Performed By: #### C BC #### [facility] [address] [place] [address] Dr. Lolita Alvarado Neutrophils/100 WBC (Bld) 48.7 % Normal 43.0-75.0 [facility] Comment on above: Performed By: #### C BC #### [facility] [address] [place] [address] Dr. Lolita Alvarado Platelet mean volume (Bld) [Entitic vol] 8.2 fL Critically low 9.5-13.5 [facility] Comment on above: Performed By: #### C BC #### [facility] [address] [place] [address] Dr. Lolita Alvarado PLT 216 103/ul Normal 150-450 [facility] Comment on above: Performed By: #### C BC #### [facility] [address] [place] [address] Dr. Lolita Alvarado RBC 3.30 106/ul Critically low 4.20-5.40 [facility] Comment on above: Performed By: #### C BC #### [facility] [address] [place] [address] Dr. Lolita Alvarado WBC 4.3 103/ul Normal 4.0-11.0 [facility] Comment on above: Performed By: #### C BC #### [facility] [address] [place] [address] Dr. Lolita Alvarado OCC BLD IMMUNOASSAYon 2021 OCCULT BLOOD Positive Abnormal NEGATIVE [facility] Comment on above: Performed By: #### O ELADIO #### [facility] [address] [place] [address] Dr. Lolita Alvarado PROTIMEon 06-01-2022 INR Coag (PPP) [Relative time] 1.62 {INR} Normal [facility] Comment on above: Performed By: #### P T, PTT #### [facility] [address] [place] [address] Dr. Lolita Alvarado INR GUIDELINES SEE BELOW Normal [facility] Comment on above: Result Comment: TOSHA RED INR: 2.0 - 3.0 CONDITIONS NOT LISTED BELOW 2.5 - 3.5 FOR PROSTHETIC HEART VALVE REPLACEMENT 2.5 - 3.5 RECURRENT THROMBOSIS Performed By: #### P T, PTT #### [facility] [address] [place] [address] Dr. Lolita Alvarado PT Coag (PPP) [Time] 17.0 s Critically high 9.0-11.6 [facility] Comment on above: Performed By: #### P T, PTT #### [facility] [address] [place] [address] Dr. Lolita Alvarado PTTon 06-01-2022 aPTT Coag (Bld) [Time] 40.2 s Critically high 22.3-36.2 [facility] Comment on above: Performed By: #### P T, PTT #### [facility] [address] [place] [address] Dr. Lolita Alvarado Covid-19 PCR ([facility])on 05-06 SARS-CoV-2 (COVID-19) RNA EDWIN+probe Ql (Unsp spec) Not detected Normal NOT DETECTED [facility] Comment on above: Result Comment: This test is not yet approved or cleared by the [place] FDA. When there are no FDA-approved or cleared tests available, and other criteria are met, FDA can make tests available under an emergency access mechanism called an Emergency Use Authorization (EUA). The EUA for this test is supported by the Professor Of Surgery of Health and Human Service's (HHS's) declaration [...] SARS-CoV-2. Performed By: #### C VDTBH #### [facility] [address] [place] [address] Dr. Lolita Alvarado US NOLBERTO DOP LEG [...] by: SHERYL SRINIVASAN Date: 2022-05-25 16:09 Normal [facility] US NOLBERTO DOP LEG LTon 04-28-20 [...] and mid calf. There may be a interlocker maintainer extending to the region of the thrombosis. The remaining deep venous structures are patent. 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 This finding was placed in the stat call folder. 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 Electronically authenticated by: CHUCK TATUM Date: 2022-04-28 19:31 Normal [facility] POINT OF CARE GLUCOSEon 04-06 Glucose [Mass/Vol] 86 mg/dL Normal 74-106 [facility] Comment on above: Performed By: #### C BC #### [facility] [address] [place] [address] Dr. 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 Facility 06-18-2025 11:040 Body height 160 cm Silvino CARLINM Work Phone: [facility] 06-18-2025 11:040 Body mass index (BMI) [Ratio] 21.08 kg/m2 Silvino CARLINM Work Phone: [facility] 06-18-2025 11:27-040 Body weight 53.98 kg Silvino CARLINM Work Phone: [facility] 06-18-2025 11:27-0400 Respiratory rate 19 /min Silvino Brown DPM Work Phone: [facility] 04-02-2025 11:06-0400 Body height 160 cm Silvino Brown DPM Work Phone: [facility] 04-02-2025 11:06-0400 Body mass index (BMI) [Ratio] 21.08 kg/m2 Silvino Brown DPM Work Phone: [facility] 04-02-2025 11:06-0400 Body weight 53.98 kg Silvino Brown DPM Work Phone: [facility] 04-02-2025 11:06-0400 Respiratory rate 18 /min Silvino Brown DPM Work Phone: [facility] 02-26-2025 08:55-0400 Body height 160 cm Silvino Brown DPM Work Phone: [facility] 02-26-2025 08:55-0400 Body mass index (BMI) [Ratio] 21.08 kg/m2 Silvino Brown DPM Work Phone: [facility] 02-26-2025 08:55-0400 Body weight 53.98 kg Silvino Brown DPM Work Phone: [facility] 02-26-2025 08:55-0400 Respiratory rate 18 /min Silvino Brown DPM Work Phone: [facility] 11-20-2024 08:27-0500 Body height 160 cm Silvino Brown DPM Work Phone: [facility] 11-20-2024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
[2025-08-10 10:16] LABS: Free T3 3.13 pg/mL (2.18-3.98); Thyroid Stimulating Hormone 1.162 uIU/mL (0.358-3.740)
== END 2025-08-10 09:21 | disposition home or self-care (01) ==
LOC: LAB 09:20
PROVIDERS: PCP Family Medicine; Visit Provider Family Medicine
DX: E03.9 Hypothyroidism, unspecified (principal); D50.9 Iron deficiency anemia, unspecified
CPT/HCPCS: 36415; 84436; 84443; 84480; 84481; 85025

== ENCOUNTER 2025-08-19 09:21 | Outpatient (OUT) | payer MEDICARE, SELFPAY ==
--- OUTSIDE RECORDS SUMMARY | 2024-07-09 06:30 | XMS_ITS ---
Author Organization [facility] Address [address] [place] [address] Care Team Providers Care Computer Technology Instructor Name Role Phone Bakari Otto Primary Care Provider Jorge [facility] [phone] REASON FOR VISIT RIGHT HAND FRACTURE Encounters Encounter Location Date Provider Diagnosis [facility] [address] [place] [address] 07/09/2024 Jorge Gerard Plan Of Treatment No Information Progress Notes * CLAIRE NGUYỄN ADOB:1939 (85 yo F)Acc No.[id number]:07/09/2024 Patient: CLAIRE HENSON Provider: Brisa Gerard MD :1940 A ge:84 Y S ex:Female Date:07/09/2024 Address:[address] [place], [place] [id number] Pcp:Bakari Otto Subjective: * Chief Complaints: * 1 . RIGHT HAND FRACTURE. * Medical History: Objective: * Vitals: Assessment: Plan: * Treatment: Forms: * Images: * Electronic signature of Sim Gerard MD on 08/19/2025 at 09:23 AM EDT Sign off status: Pending * Provider: Brisa Gerard MD Date: 0 07/09/2024 Generated for Jay rodgers/Moshe/eTdomoniquesmitting on: 09:23 AM EDT
--- OUTSIDE RECORDS SUMMARY | 2025-08-19 09:23 | XMS_ITS | Clinical Summary ---
Author Organization [facility] Address [address] [place] [address] Care Team Providers Care Cement Cutter Name Role Phone Bakari Otto MD Primary Care Provider [phone] Allergies No known active allergies Medications amLODIPine [...] Procedure Visit [facility] [address] [facility] [address] [place] [phone] Silvino Arellano DPM Verruca plantaris (Primary Dx); Foot pain, right; Acquired deformity of right toe; Pain due to onychomycosis of toenails of both feet 06/18/2025 Bamboo flowsheet [facility] [address] [facility] [address] [place] [address] Silvino Arellano DPM 06/18/2025 Travel from Last [...] Dermatology [address] [place] [address] Nathalie Horne MD [address] [place] [address] 09/10/2025 11:50 AM EST Procedure Visit [facility] [address] [place] [address] Silvino Arellano DPM [address] [facility] [address] [place] [address] 08/11/2026 10:30 AM EDT Office Visit [facility] [address] [place] [address] Jr. Delgado Aguilar DO [address] [place] [address] Health Maintenance Due Date Last Done Comments Influenza Vaccine (#1) 2025 0, 07/26/2017, 08/05/2015 Pneumococcal Vaccine: 65+ Years Completed 7, 01/18/2016 Insurance MEDICARE [facility] Care Teams Cement Cutter Relationship Specialty Start Date End Date Bakari Otto MD [address] [place] [phone] PCP - General Family Medicine 10/05/23
--- OUTSIDE RECORDS SUMMARY | 2025-08-19 09:23 | XMS_ITS | Patient Health Record ---
Author Organization [facility] Address [address] [place] [address] Care Team Providers Care Sleeping Car Porter Name Role Phone Clarita Bakari Primary Care Provider Jorge [facility] [phone] Reason For Referral No Information Plan Of Treatment No Information Insurance Providers Payer Name Payer Address Payer Phone Subscriber Number Group Number Insured Name Patient Relationship to Insured Coverage Start Date Coverage End [place] [address] [place] [phone] [id number] HOMAR FRENCHCLAIRE Self - patient is the insured MEDICARE U[employer] AARP [address] [address] [place] [address] [id number] VELASQUEZ FRENCH, CLAIRE Self - patient is the insured
--- OUTSIDE RECORDS SUMMARY | 2025-08-19 09:24 | XMS_ITS | Encounter Summary ---
Author Organization [facility] Address [address] [place] [address] Care Team Providers Care Fuel Oil Truck Driver Name Role Phone Bakari Otto MD Primary Care Provider [phone] Encounter Details Date Type Department Care Team (Late Contact Info) Description 10/08/2023 Clinisync Result Encounter [facility] Unsolicited Jamal Vizcarra PA [address] [place] [address] Social History Tobacco Use Types [...] Upcoming Encounters Date Type Department Care Team ([facility] Contact Info) Description 09/01/2025 1:05 PM EDT Office Visit [facility] [address] [place] [address] Nathalie Horne MD [address] [facility] [address] [place] [address] 09/10/2025 11:50 AM EST Procedure Visit [facility] [address] [place] [address] Silvino Arellano DPM [address] [facility] [address] [place] [address] 08/11/2026 10:30 AM EDT Office Visit [facility] [address] [place] [address] Jr. Delgado Aguilar, DO [address] [facility] [address] [place] [address] documented as of this encounter Procedures Procedure Name Priority Date/Time Associated Diagnosis Comments MR KNEE RT WO CON 10/08/2023 12: 03 PM EST documented in this encounter Results * MR KNEE RT WO CON (10/08/2023 12:03 PM EST) Anatomical Region Laterality Modality Other 10/08/2023 12:0 3 PM EST Narrative 10/08/2023 12:03 [place] [address] Magnetic Resonance Report Signed Patient: ALICIA NGUYỄN MR#: [id number] : 1940 Acct:[id number] Age/Sex: 83 / F ADM Date: 10/08/23 Loc: MRI Attending Dr: Jamal MARIE Ordering Physician: Jamal Vizcarra Date of Service: 10/08/23 Procedure(s): MR knee RT wo con Accession Number(s): [id number] cc: Bakari Otto M.D.; Jamal Vizcarra [address] [address] Patient Name: ALICIA NGUYỄN MRN: [id number] date: 1940 Sex: F Assigned Patient Location: MRI Current Patient Location: MRI Accession/Order Number: [id number] Exam Date: 10/08/2023 09:53 Report Date: 10/08/2023 [...] M.D. Signed By: 10/08/231205 DD/ 02 TD/TT: Regulatory Compliance Coordinator: Procedure Note Radiology, Radiologist, MD - 10/08/2023 [place] [address] Magnetic Resonance Report Signed Patient: ALICIA NGUYỄN AMR#: [id number] : 1940cct:[id number] Age/Sex: 83 / FADM Date: 10/08/23 Loc: MRI Attending Dr: Jamal MARIE Ordering Physician: Jamal Vizcarra Date of Service: 10/08/23 Procedure(s): MR knee RT wo con Accession Number(s): [id number] cc: Bakari Otto M.D.; Jamal Vizcarra [place] [id number] Patient Name: ALICIA NGUYỄN MRN: [id number] date: 1940 Sex: F Assigned Patient Location: MRI Current Patient Location: MRI Accession/Order Number: [id number] Exam Date: 10/08/2023 09:53 Report Date: 10/08/2023 [...] remains low in signal on T1 and T0wkayakufh. ACL: Normal appearing ligament. PCL: Normal appearing [...] 12:03 Dictated By: Jorge Espino M.D. Signed By:10/08/231205 DD/ 120 TD/TT: Regulatory Compliance Coordinator: us Jamal MARIE [facility] Final Resul t documented in this encounter Visit Diagnoses Not on filedocumented in this encounter Care Teams Fuel Oil Truck Driver Relationship Specialty Start Date End Date Bakari Otto MD [address] [place] [address] PCP - General Family Medicine 10/05/23 documented as of this encounter
--- OUTSIDE RECORDS SUMMARY | 2025-08-19 09:24 | XMS_ITS | Clinical Summary ---
Author Organization [facility] Address [address] [place] [address] Care Team Providers Care Outboard Motor Tester Name Role Phone Bakari Otto MD Primary Care Provider [phone] Social History Tobacco Use Types Packs/Day Years [...] 75+ series) 2013 Advance Directive Discussion 11/05/2024 Covid-19 Vaccine (2024- season) 2025 Influenza Vaccine (#1) 2025 Insurance MEDICARE Care Teams Outboard Motor Tester Relationship Specialty Start Date End Date Bakari Otto MD PCP - General Family Medicine 07/30/14
--- OUTSIDE RECORDS SUMMARY | 2025-08-19 09:24 | XMS_ITS | Clinical Summary ---
Author Organization [facility] Address [address] [place] [address] Care Team Providers Care Pyridine Operator Name Role Phone Unavailable Primary Care Provider [...]
--- OUTSIDE RECORDS SUMMARY | 2025-08-19 09:24 | XMS_ITS | Patient Health Record ---
Author Organization [facility] in [place] Address [address] [place] [address] Care Team Providers Care Adjunct Nursing Faculty Name Role Phone Shyam Otto Primary Care Provider Viri Carrizales [phone] Allergies Allergen (clinical drug ingredient) Drug/Non Drug Allergy documented on EMR Reaction Allergy Type Onset Date Status lisinopril Lisinopril cough Drug Allergy Activ e Results Component Value Reference Range Notes BNP Reviewed date:07/25/2025 04:02:46 PM Interpretation: Performing Lab: Notes/Report: [facility] , NT Pro B Type Natriuretic Pept 251.0 <=1800.0 pg/mL Performing Lab: see note - [facility] LB FREE T3 Reviewed date:07/25/2025 04:02:45 PM Interpretation: Performing Lab: Notes/Report: [facility] , Free T3 1.95 2.18-3.98 pg/mL Performing Lab: see note - [facility] LB IRON Reviewed date:07/25/2025 04:02:46 PM Interpretation: Performing Lab: Notes/Report: [facility] , Iron 64.0 50.0-170.0 ug/dL Performing Lab: see note - [facility] LB LIPID PROFILE Reviewed date:07/25/2025 04:02:46 PM Interpretation: Performing Lab: Notes/Report: [facility] , Triglycerides 132 <=150 mg/dL Cholesterol 195 <=200 mg/dL HDL Cholesterol 54 40-60 mg/dL <40 mg/dl - HIGH CARDIOVASCULAR RISK > or =60 mg/dl - LOW CARDIOVASCULAR RISK LDL Cholesterol Calculated 114.6 100-129 mg/dl NEAR OR ABOVE OPTIMAL >190 mg/dl VERY HIGH 160-189 mg/dl HIGH 130-159 mg/dl BORDERLINE HIGH <100 mg/dl OPTIMAL VLDL CHOLESTEROL 26.4 Chol HDL Ratio 3.6 3.3 - 4.4 LOW RISK >11.0 HIGH RISK 7.1 - 11.0 MODERATE RISK 4.4 - 7.1 AVERAGE RISK Performing Lab: see note ML - [facility] PROF 14(COMP METB) Reviewed date:07/25/2025 04:02:46 PM Interpretation: Performing Lab: Notes/Report: [facility] , Sodium 140 136-145 mmol/L Potassium 4.5 3.5-5.1 mmol/L Chloride 105 98-107 mmol/L Carbon Dioxide 27.0 21.0-32.0 mmol/L Anion Gap 12.5 Glucose 96 74-106 mg/dL Blood Urea Nitrogen 24.0 7.0-18.0 mg/dL Creatinine 0.92 0.55-1.02 mg/dL Estimated GFR ( Missy >60 >=60 mL/min/1.73m 2 Estimated GFR (Non- Seble 58 >=60 mL/min/1.73m 2 BUN Creatinine Ratio 26.1 Calcium 9.0 8.5-10.1 mg/dL Bilirubin Total 0.6 0.2-1.0 mg/dL Aspartate Amino Transferase 20 15-37 U/L Alanine Aminotransferase 23 14-59 U/L Alkaline Phosphatase 86 46-116 U/L Total Protein 7.1 6.4-8.2 g/dL Albumin Level 3.7 3.4-5.0 g/dL Globulin 3.4 Albumin Globulin Ratio 1.1 Performing Lab: see note ML - [facility] LB T4 Reviewed date:07/25/2025 04:02:46 PM Interpretation: Performing Lab: Notes/Report: [facility] , T4 Thyroxine 7.20 4.80-13.90 ug/dL Performing Lab: see note ML - [facility] LB TSH Reviewed date:07/25/2025 04:02:46 PM Interpretation: Performing Lab: Notes/Report: [facility] , Thyroid Stimulating Hormone 1.950 0.358-3.740 u IU/mL Performing Lab: see note ML - [facility] LB CBC AUTO DIFF Reviewed date:08/10/2025 12:50:37 PM Interpretation: Performing Lab: Notes/Report: [facility] , White Blood Count 4.3 4.0-11.0 10 3/uL Red Blood Count 3.92 4.20-5.40 10 6/uL Hemoglobin 12.2 12.0-16.0 g/dL Hematocrit 36.7 36.0-48.0 % Mean Corpuscular Volume 93.6 81.0-99.0 fL Mean Corpuscular Hemoglobin 31.1 26.7-34.0 pg Mean Corpuscular HGB Conc 33.2 29.9-35.2 g/dL Red Cell Distribution Width 13.8 11.0-15.0 % Platelet Count 163 150-450 10 3/uL Mean Platelet Volume 8.4 9.5-13.5 fL Neutrophils Percent Auto 51.8 43.0-75.0 % Lymphocytes Percent Auto 35.7 20.5-60.0 % Monocytes Percent Auto 7.9 1.7-12.0 % Eosinophils Percent Auto 3.5 0.9-7.0 % Basophils Percent Auto 0.9 0.2-2.0 % Immature Granulocytes Pct Auto 0.2 0.0-0.5 % Neutrophils Absolute Auto 2.2 1.4-6.5 10 3/uL Lymphocytes Absolute Auto 1.5 1.2-3.8 10 3/uL Monocytes Absolute Auto 0.3 0.3-0.8 10 3/uL Eosinophils Absolute Auto 0.2 0.0-0.7 10 3/uL Basophils Absolute Auto 0.0 0.0-0.1 10 3/uL Immature Granulocytes Abs Auto 0.01 0.00-0.03 10 3/uL Performing Lab: see note ML - [facility] FREE T3 Reviewed date:08/10/2025 12:50:37 PM Interpretation: Performing Lab: Notes/Report: [facility] Free T3 3.13 2.18-3.98 pg/mL Performing Lab: see note - [facility] LB T4 Reviewed date:08/10/2025 12:50:37 PM Interpretation: Performing Lab: Notes/Report: [facility] , T4 Thyroxine 6.70 4.80-13.90 ug/dL Performing Lab: see note ML - [facility] LB TSH Reviewed date:08/10/2025 12:50:37 PM Interpretation: Performing Lab: Notes/Report: [facility] , Thyroid Stimulating Hormone 1.162 0.358-3.740 u IU/mL Performing Lab: see note - [facility] LB GLYCOHEMOGLOBIN A1C Reviewed date:07/25/2025 04:02:46 PM Interpretation: Performing Lab: Notes/Report: [facility] , Glycohemoglobin A1C 5.5 4.5-6.2 % > 7.0 ADA THERAPEUTIC TARGET < 7.0 ACTION SUGGESTED ADA RECOMMENDED LIMIT 4.0 - 6.0 Estimated Average Glucose 111 Performing Lab: see note - [facility] LB CBC AUTO DIFF Reviewed date:07/25/2025 04:02:45 PM Interpretation: Performing Lab: Notes/Report: [facility] , White Blood Count 3.6 4.0-11.0 10 3/uL Red Blood Count 3.85 4.20-5.40 10 6/uL Hemoglobin 12.0 12.0-16.0 g/dL Hematocrit 35.8 36.0-48.0 % Mean Corpuscular Volume 93.0 81.0-99.0 fL Mean Corpuscular Hemoglobin 31.2 26.7-34.0 pg Mean Corpuscular HGB Conc 33.5 29.9-35.2 g/dL Red Cell Distribution Width 13.9 11.0-15.0 % Platelet Count 149 150-450 10 3/uL Mean Platelet Volume 8.3 9.5-13.5 fL Neutrophils Percent Auto 49.1 43.0-75.0 % Lymphocytes Percent Auto 36.9 20.5-60.0 % Monocytes Percent Auto 9.1 1.7-12.0 % Eosinophils Percent Auto 4.1 0.9-7.0 % Basophils Percent Auto 0.8 0.2-2.0 % Immature Granulocytes Pct Auto 0.0 0.0-0.5 % Neutrophils Absolute Auto 1.8 1.4-6.5 10 3/uL Lymphocytes Absolute Auto 1.3 1.2-3.8 10 3/uL Monocytes Absolute Auto 0.3 0.3-0.8 10 3/uL Eosinophils Absolute Auto 0.2 0.0-0.7 10 3/uL Basophils Absolute Auto 0.0 0.0-0.1 10 3/uL Immature Granulocytes Abs Auto 0.00 0.00-0.03 10 3/uL Performing Lab: see note ML - [facility] LB CT cervical spine wo con Reviewed date:05/08/2025 04:32:44 PM Interpretation: Performing Lab: Notes/Report: Source Facility: [place] [address] CT Scan Report Signed Patient: ALICIA NGUYỄN MR#: [id number] : 1940 Acct:[id number] Age/Sex: 84 / F ADM Date: 05/07/25 Loc: ER Attending Dr: Ordering Physician: Kai Reddy Date of Service: 05/07/25 Procedure(s): CT cervical spine wo con Accession Number(s): [id number] cc: Bakari Otto M.D. [place] [address] Patient Name: ALICIA NGUYỄN MRN: [id number] date: 1940 Sex: F Assigned Patient Location: ED.MAIN Current Patient Location: ED.MAIN Accession/Order Number: [id number] Exam Date: 05/07/2025 22:50 Report Date: 05/07/2025 23:00 At the request of: KAI REDDY MD Procedure: CT cervical spine wo con Unenhanced head CT TECHNIQUE: Contiguous axial imaging of the head. The CT exam was performed using one or more the following dose reduction techniques: Automated exposure control, adjustment of the MA and/or Kv according to patient size, or use of the iterative reconstruction technique. COMPARISON: 11/18/2023 HISTORY: Fell. Right facial injury VENTRICLES: Within normal limits ATROPHY: Similar atrophy BRAIN PARENCHYMA: Decreased density of the white matter is most consistent with chronic small vessel disease. HEMORRHAGE: None HERNIATION: No mass effect or herniation INFARCTION: No recent vascular distribution infarction is seen. EXTRA-AXIAL FLUID COLLECTIONS None MIDBRAIN: Unremarkable CHANTELLE: Unremarkable MEDULLA: Unremarkable SINUSES: Small amount of blood in the right maxillary sinus. ORBITS: Grossly unremarkable MASTOIDS: Unremarkable BONY STRUCTURES Intact ADDITIONAL FINDINGS: CT Cervical Spine withoutcontrast TECHNIQUE: Axial imaging with 2-D and 3-D reconstruction. The CT exam was performed using one or more the following dose reduction techniques: Automated exposure control, adjustment of the MA and/or Kv according to patient size, or use of the iterative reconstruction technique. COMPARISON: None POST SURGERY CHANGES: None BONY ALIGNMENT: Straightening. Mild anterolisthesis BONY SPINAL CANAL: Patent central bony canal FRACTURE: BONY LESIONS: None SOFT TISSUES: Unremarkable DEGENERATIVE CHANGES: Extensive degeneration LUNG APICES: Unremarkable ADDITIONAL FINDINGS: CT Facial Bones without contrast TECHNIQUE: Axial imaging with 2-D reconstruction. The CT exam was performed using one or more the following dose reduction techniques: Automated exposure control, adjustment of the MA and/or Kv according to patient size, or use of the iterative reconstruction technique. COMPARISON: None FRACTURES: Right nasal bone fracture mildly depressed right infraorbital wall fracture. BONY LESIONS: None ORBITS: Unremarkable SINUSES: The sinuses are well pneumatized. SOFT TISSUES: Right periorbital soft tissue swelling ADDITIONAL FINDINGS: None CT/CT cervical spine wo con IMPRESSION: No acute intracranial findings. No cervical spine fracture. Mildly depressed right inferior orbital wall fracture. No entrapment of fat or muscle. Small right maxillary hemorrhage. Right nasal bone fracture. Impression dictated by: Shahid Rodríguez M.D. 05/07/2025 11:00 PM Dictation Location: [place] [address] Electronically authenticated by: [id number] Y Date: 05/07/2025 23:00 Dictated By: Shahid Rodríguez D.O. 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 [address] [address] Patient Name: ALICIA NGUYỄN MRN: [id number] date: 1940 Sex: F Assigned Patient Location: ER Current Patient Location: ED.MAIN Accession/Order Number: [id number] Exam Date: 05/07/2025 22:50 Report Date: 05/07/2025 23:00 At the request of: KAI REDDY MD Procedure: CT cervical spine wo con Unenhanced head CT TECHNIQUE: Contiguous axial imaging of the head. The CT exam was performed using one or more the following dose reduction techniques: Automated exposure control, adjustment of the MA and/or Kv according to patient size, or use of the iterative reconstruction technique. COMPARISON: 11/18/2023 HISTORY: Fell. Right facial injury VENTRICLES: Within normal limits ATROPHY: Similar atrophy BRAIN PARENCHYMA: Decreased density of the white matter is most consistent with chronic small vessel disease. HEMORRHAGE: None HERNIATION: No mass effect or herniation INFARCTION: No recent vascular distribution infarction is seen. EXTRA-AXIAL FLUID COLLECTIONS None MIDBRAIN: Unremarkable CHANTELLE: Unremarkable MEDULLA: Unremarkable SINUSES: Small amount of blood in the right maxillary sinus. ORBITS: Grossly unremarkable MASTOIDS: Unremarkable BONY STRUCTURES Intact ADDITIONAL FINDINGS: CT Cervical Spine withoutcontrast TECHNIQUE: Axial imaging with 2-D and 3-D reconstruction. The CT exam was performed using one or more the following dose reduction techniques: Automated exposure control, adjustment of the MA and/or Kv according to patient size, or use of the iterative reconstruction technique. COMPARISON: None POST SURGERY CHANGES: None BONY ALIGNMENT: Straightening. Mild anterolisthesis BONY SPINAL CANAL: Patent central bony canal FRACTURE: BONY LESIONS: None SOFT TISSUES: Unremarkable DEGENERATIVE CHANGES: Extensive degeneration LUNG APICES: Unremarkable ADDITIONAL FINDINGS: CT Facial Bones without contrast TECHNIQUE: Axial imaging with 2-D reconstruction. The CT exam was performed using one or more the following dose reduction techniques: Automated exposure control, adjustment of the MA and/or Kv according to patient size, or use of the iterative reconstruction technique. COMPARISON: None FRACTURES: Right nasal bone fracture mildly depressed right infraorbital wall fracture. BONY LESIONS: None ORBITS: Unremarkable SINUSES: The sinuses are well pneumatized. SOFT TISSUES: Right periorbital soft tissue swelling ADDITIONAL FINDINGS: None CT/CT head/brain wo con IMPRESSION: No acute intracranial findings. No cervical spine fracture. Mildly depressed right inferior orbital wall fracture. No entrapment of fat or muscle. Small right maxillary hemorrhage. Right nasal bone fracture. Impression dictated by: Shahid Rodríguez M.D. 05/07/2025 11:00 PM Dictation Location[facility] Electronically authenticated by: [id number] Y Date: 05/07/2025 23:00 Dictated By: Shahid Rodríguez D.O. 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 [place] [address] Patient Name: ALICIA NGUYỄN MRN: [id number] date: 1940 Sex: F Assigned Patient Location: ER Current Patient Location: ED.MAIN Accession/Order Number: [id number] Exam Date: 05/07/2025 22:50 Report Date: 05/07/2025 23:00 At the request of: KAI REDDY MD Procedure: CT cervical spine wo con Unenhanced head CT TECHNIQUE: Contiguous axial imaging of the head. The CT exam was performed using one or more the following dose reduction techniques: Automated exposure control, adjustment of the MA and/or Kv according to patient size, or use of the iterative reconstruction technique. COMPARISON: 11/18/2023 HISTORY: Fell. Right facial injury VENTRICLES: Within normal limits ATROPHY: Similar atrophy BRAIN PARENCHYMA: Decreased density of the white matter is most consistent with chronic small vessel disease. HEMORRHAGE: None HERNIATION: No mass effect or herniation INFARCTION: No recent vascular distribution infarction is seen. EXTRA-AXIAL FLUID COLLECTIONS None MIDBRAIN: Unremarkable CHANTELLE: Unremarkable MEDULLA: Unremarkable SINUSES: Small amount of blood in the right maxillary sinus. ORBITS: Grossly unremarkable MASTOIDS: Unremarkable BONY STRUCTURES Intact ADDITIONAL FINDINGS: CT Cervical Spine withoutcontrast TECHNIQUE: Axial imaging with 2-D and 3-D reconstruction. The CT exam was performed using one or more the following dose reduction techniques: Automated exposure control, adjustment of the MA and/or Kv according to patient size, or use of the iterative reconstruction technique. COMPARISON: None POST SURGERY CHANGES: None BONY ALIGNMENT: Straightening. Mild anterolisthesis BONY SPINAL CANAL: Patent central bony canal FRACTURE: BONY LESIONS: None SOFT TISSUES: Unremarkable DEGENERATIVE CHANGES: Extensive degeneration LUNG APICES: Unremarkable ADDITIONAL FINDINGS: CT Facial Bones without contrast TECHNIQUE: Axial imaging with 2-D reconstruction. The CT exam was performed using one or more the following dose reduction techniques: Automated exposure control, adjustment of the MA and/or Kv according to patient size, or use of the iterative reconstruction technique. COMPARISON: None FRACTURES: Right nasal bone fracture mildly depressed right infraorbital wall fracture. BONY LESIONS: None ORBITS: Unremarkable SINUSES: The sinuses are well pneumatized. SOFT TISSUES: Right periorbital soft tissue swelling ADDITIONAL FINDINGS: None CT/CT facial bones wo con IMPRESSION: No acute intracranial findings. No cervical spine fracture. Mildly depressed right inferior orbital wall fracture. No entrapment of fat or muscle. Small right maxillary hemorrhage. Right nasal bone fracture. Impression dictated by: Shahid Rodríguez M.D. 05/07/2025 11:00 PM Dictation Location: [facility] Electronically authenticated by: [id number] Y Date: 05/07/2025 23:00 Dictated By: Shahid Rodríguez D.O. 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: Reason For Referral No Information Medications Medication SIG (Take, Route, Frequency, Duration) Notes Start Date End Date Status Levothyroxine Sodium 50 MCG TAKE 1 TABLE T BY MOUTH DAILY; Duration: 90 days Active Cytomel 5 MCG 2 tablet on an empty stomach Orally Once a day; Duration: 30 days 07/27/2025 Active amLODIPine Besylate 5 MG TAKE 1 TABLET B Y MOUTH ONCE DAILY; Duration: 90 Active Liothyronine Sodium 5 MCG TAKE 1 TABLET BY MOUTH DAILY; Duration: 90 days Active Alendronate Sodium 70 MG TAKE 1 TABLET B Y MOUTH WEEKLY WITH 8 OZ OF PLAIN WATER 30 MINUTES BEFORE FIRST FOOD, DRINK OR MEDS. STAY UPRIGHT FOR 30 MINS; Duration: 84 Active Levsin/SL 0.125 MG 1 tablet under the tongue and allow to dissolve as needed Sublingual QID 11/28/2023 Active Calcium Active Nitroglycerin 0.4 MG as directed Sublingual Active Aspirin 81 81 MG 1 tablet Orally Once a day Active Metoprolol Tartrate 50 MG TAKE 2 TABLETS BY MOUTH IN THE MORNING , 1 TABLET BY MOUTH AT LUNCH , AND 2 TABLETS BY MOUTH IN THE EVENING , DIRECTED; Duration: 90 Active Potassium Chloride ER 20 MEQ 1 tablet wi th food Orally Once a day Active Diclofenac Sodium 75 MG 1 tablet as need ed Orally Twice a day; Duration: 90 days Active Cetirizine HCl 10 MG 1 tablet Orally Onc e a day; Duration: 90 days Active Omeprazole 20 MG TAKE 1 CAPSULE BY [facility] TWICE DAILY; Duration: 90 Active DULoxetine HCl 30 MG 1 capsule Orally On ce a day; Duration: 30 day(s) 06/18/2023 Active Triamcinolone Acetonide 0.1 % APPLY TO AFFECTED AREA TWICE A DAY; Duration: 60 Active Dicyclomine HCl 20 MG 1 tablet Orally Th ree times a day; Duration: 90 days Active tiZANidine HCl 4 MG 1 tablet as needed Orally Three times a day; Duration: 90 days Active Lasix 20 MG 1 tablet Orally Once a day-PRN Active Glucosamine-Chondroitin 250-200 MG 1 capsule after a meal Orally Once a day Active Immunizations Vaccine Route Administration Date Status Comme nts Flu, Fluad (47257) 65 yrs and older, single-dose syringe (2718-9610) IM Intramuscular 08/13/2024 Administered Flu, Fluad (63627) 65 yrs+, single-dose syringe (0181-2069) IM Intramuscular 08/16/2023 Administered Social History Tobacco Use: Social History Observation Description Date Details (start date - stop date) Never Smoker NA - NA Tobacco Use/Smoking Question Answer Notes Patient is a nonsmoker Alcohol Screen (Audit-C) Question Answer Notes Did you have a drink containing alcohol in the p ast year? No Points 0 Interpretation Negative AUDIT-C (Standard) Question Answer Notes Did you have a drink containing alcohol in the p ast year? 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) Active confirmed Problem Pain co-occurrent an d due to varicose veins of bilateral legs (13537326082297403) Varicose veins of bilateral lower extremities with pain (I83.813) Active confirmed Problem Acquired deformity o f toe (39911762) Acquired deformities of toe(s), unspecified, right foot (M20.61) Active confirmed Problem Thoracic spondylosis without myelopathy (884113274) Spondylosis without myelopathy or radiculopathy, 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) Active confirmed Problem Lumbosacral spondylosis without myelopathy (56324621) Spondylosis without myelopathy or radiculopathy, lumbar region (M47.816) Active confirmed Problem Palpitations (71271514) Palpitations (R00.2) Active confirmed Problem Shortness of breath (621228656) Shortness of breath (R06.02) Active confirmed Problem Solitary pulmonary nodule (125535588) Solitary pulmonary nodule (R91.1) Active confirmed Problem Closed fracture of shaft of metacarpal bone (32956586) Nondisplaced fracture of shaft of fifth metacarpal bone, right hand, initial encounter for closed fracture (S62.356A) Active confirmed Problem Chest pain (73278497) Chest pain (R07.9) Active confirmed Problem Osteoarthritis (223489798) Osteoarthritis (M19.90) Active confirmed Problem Edema (64083242) Edema (R60.9) Active confirmed Problem Osteopenia (568949773) Osteopeni a (M85.80) Active confirmed Problem Insomnia (422684663) Insomnia (G47.00) Active confirmed Problem Ankle pain (493550144) Ankle megan n (M25.579) Active confirmed Problem Hematochezia (109887391) Hematochezia (K92.1) Active confirmed Problem Osteoarthritis of kn ee (647075063) Knee osteoarthritis (M17.9) Active confirmed Problem Transient ischemic attack (336040174) TIA (transient ischemic attack) (G45.9) Active confirmed Problem Lumbar radiculopathy (197808925) Lumbar radiculopathy (M54.16) Active confirmed Problem Internal hemorrhoids (25284958) Internal hemorrhoids (K64.8) Active confirmed Problem Well adult (102034112) Well adul t (Z00.00) Active confirmed Problem Leg pain (21082921) Leg pain (M79.606) Active confirmed Problem Paresthesia (55016476) Paresthes ia (R20.2) Active confirmed Problem Irritable bowel syndrome (78304048) Irritable bowel syndrome (K58.9) Active confirmed Problem Pain in limb (41765860) Right hand pain (M79.641) Active confirmed Problem Hypoglycemia (049498081) Hypoglycemia (E16.2) Active confirmed Problem Seasonal allergic rhinitis (645190690) Seasonal allergic rhinitis (J30.2) Active confirmed Problem Cramp in lower limb (575588424) Leg cramps (R25.2) Active confirmed Problem Knee pain, unspecified laterality (M25.569) Active confirmed Problem Spinal stenosis of thoracic region (81478534) Spinal stenosis of thoracic region (M48.04) Active confirmed Problem Spinal stenosis of lumbosacral region (756831506) Spinal stenosis of lumbosacral region (M48.07) Active confirmed Problem Bursitis (32019412) Bursitis (M71.9) Active con firmed Problem Atrial premature dejah ts (426928493) Atrial premature beats (I49.1) Active confirmed Problem 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) Antral gastritis (K29.50) Active confirmed Problem Mass of thoracic structure (969277345) Swelling, mass, or lump in chest (R22.2) Active confirmed Problem Peripheral venous insufficiency (11640355) Venous insufficiency of both lower extremities (I87.2) Active confirmed Problem Scoliosis of lumbar spine (376756175) Scoliosis of lumbar spine (M41.9) Active confirmed Problem Venous thromboemboli c disease (167572743) Acute deep vein thrombosis (DVT) of left lower extremity (I82.402) Active confirmed Problem Essential hypertensi on (99725234) Essential Hypertension (I10) Active confirmed Problem Facial fracture (S02.92XA) Active confirmed Problem Pure hypercholesterolemia (536700488) Pure hypercholesterol emia, unspecified (E78.00) Active confirmed Problem Fracture of metacarpal of right hand, closed, initial encounter (S62.309A) Active confirmed Problem Osteoarthritis of kn ee (197328058) Osteoarthritis of right knee (M17.11) Active confirmed Problem COVID-19 (270195955) COVID-19 (U07.1) Active co nfirmed Problem Cardiac arrhythmia (882914436) Bigeminy (I49.8) Active confirmed Vital Signs Temperature 99.4 degrees Fahrenheit 04/29/2025 Oximetry 96 % 04/29/2025 Blood pressure diastolic 78 mm Hg 07/23/2025 Height 63 in 07/23/2025 Blood pressure systolic 148 mm Hg 07/23/2025 Weight 127.2 lbs 07/23/2025 BMI 22.53 kg/m2 07/23/2025 Encounters Encounter Location Date Provider Diagnosis [address] [place] [place] [address] 04/29/[address] [facility] [address] [place] [address] 05/11/2025 Shyam Hoy Facial fracture S02.92XA [facility] [address] [place] [address] 07/23/2025 Shyam Jaswindery Insomnia G47.00 ; Essential Hypertension I10 ; Pure hypercholesterolemia, unspecified E78.[address] [facility] [address] [place] [address] 08/25/2024 Shyam Hoy [facility] [address] [facility] [place] [address] 10/27/[address] [facility] [address] [place] [address] 07/13/[address] [facility] [address] [place] [address] 07/25/2025 Shyam Otto Fatigue R53.83 [facility] [address] [facility] [place] [address] 07/27/[address] [facility] [address] [place] [address] 08/10/2025 Shyam Sanimani Assessments Encounter Date Diagnosis (ICD Code) Assessment Notes Treatment Notes Treatment Clinical Notes Section Notes 04/29/2025 Bronchitis (ICD-10 - J40) OTC meds comfort rest push fluids abx if not improving 05/11/2025 Facial fracture (ICD-10 - S02.92XA) 07/23/2025 Insomnia (ICD-10 - G47.00) 07/23/2025 Essential Hypertension (ICD-10 - I10) 07/25/2025 Fatigue (ICD-10 - R53.83) 07/23/2025 Pure hypercholesterole sonia, unspecified (ICD-10 - E78.00) 07/23/2025 Paresthesia (ICD-10 - R20.2) Plan Of Treatment Pending Test Test Name Order Date CMP (COMPLETE METABOLIC PANEL) UA (URINALYSIS, COMPLETE) 07/19/2023 HEMOGLOBIN A1C (GLYCO) 07/23/2025 IRON, TOTAL 07/23/2025 LIPID PANEL (CHOL/TRIG/HDL/LDL) 07/23/20 25 T3 FREE, T4 FREE and TSH 05/21/2023 Urine Culture 07/19/2023 COMPREHENSIVE METABOLIC PROFILE WITH GFR 04/23/2024 CBC W/AUTO DIFF 04/23/2024 XR Hand 3 Views Right 07/02/2024 C. DIFF PCR 12/24/2023 CBC AUTO DIFF 05/21/2023 CBC AUTO DIFF 07/25/2025 GLYCOHEMOGLOBIN A1C 05/21/2023 LIPID PROFILE 05/21/2023 STOOL CULTURE 12/24/2023 URINE MICROSCOPIC ONLY 07/19/2023 THYROID PANEL (T4/TSH/FREE T3) 5 THYROID PANEL (T4/TSH/FREE T3) 4 THYROID PANEL (T4/TSH/FREE T3) 5 CMP (COMP MET LUIS) w/eGFR CKD-EPI 2024 CBC WITH DIFF 07/23/2025 Next Appt Details Provider Name:Shyam Otto, 10:45:00 AM, [address] [facility], [facility], [place], [address], Insurance Providers Payer Name Payer Address Payer Phone Subscriber Number Group Number Insured Name Patient Relationship to Insured Coverage Start Date Coverage End Date [place]IC[place] [address] [place] [address] [id number] ifsnimaci Alicia torres Self - patient is the insured 3 [facility] [address] [place] [address] [id number] ifsoliver Alicia torres Self - patient is the insured 4 [...] k nee M00.861 Surgical History Surgery Date(Month/Year) Back injections Bilateral foot surgeries Bladder reposition Left knee replacement CHOLECYSTECTOMY APPENDECTOMY right knee arthroscopy arthroscopic knee surgery Hospitalization History Reason Date(Month/Year) see above
--- NOTE | 2025-08-19 09:51 | PM.CN ---
Consult Note: HPI Data of Consult Patient: known to practice within the last 3 years Requesting Physician: Ivanna Louise NP Primary Care Provider: Bakari Otto MD Consult Narrative Reason for consult: f/u Narrative: Alicia Bullock a pleasant 85 year old female presents for evaluation and management of chronic pain. Patient rating pain 0/10 today, at times 8/10 in low back and hips. Continues to take duloxetine 30mg daily with significant benefit. She has sparingly needed mobic 15mg, tramadol 50mg PRN, and baclofen 10mg PRN. she continues to engage in HEP with mild relief. GREGORY 6%. Patient remains functional and pain well controlled with current medication regimen. has had 1 fall without injury in the last 6 months. cc:: CC: Ivanna Louise NP Review of Systems ROS Musculoskeletal Denies: back pain, neck pain, extremity pain or joint pain PFSH PFSH Social History Smoking status: Never smoker Little interest or pleasure in doing things: not at all Feeling down, depressed, or hopeless: not at all Meds Home Medications and Allergies Home Medications ?Medication ?Instructions ?Recorded ?Confirmed ?Type alendronate 70 mg tablet (Fosamax) 70 mg PO QWEEK 06/14/23 06/14/23 History amlodipine 10 mg tablet 10 mg PO DAILY 06/14/23 06/14/23 History aspirin 81 mg capsule 81 mg PO DAILY 06/14/23 06/14/23 History baclofen 10 mg tablet 10 mg PO .QHS PRN muscle spasm 06/14/23 08/23/23 History calcium 167 mg-vitamin D3 1.67 cap PO .QD 06/14/23 History mcg-magnesium 83 mg capsule glucosamine ER 500 mg-chondroitin 1 tab PO DAILY 06/14/23 06/14/23 History 200 mg tablet,extended release levothyroxine 50 mcg tablet 50 mcg PO DAILY 06/14/23 06/14/23 History (Euthyrox) lisinopril 20 mg tablet 20 mg PO DAILY 06/14/23 06/14/23 History metoprolol tartrate 50 mg tablet 50 mg PO DAILY 06/14/23 06/14/23 History (Lopressor) omeprazole 20 mg tablet,delayed 20 mg PO BID 06/14/23 06/14/23 History release meloxicam 15 mg tablet 15 mg PO PRN 08/23/23 History duloxetine 30 mg capsule,delayed 30 mg PO DAILY #90 caps 08/15/24 Rx release tramadol 50 mg tablet 50 mg PO DAILY PRN pain #30 tabs 08/27/24 Rx duloxetine 30 mg capsule,delayed 30 mg PO DAILY #90 caps 02/25/25 Rx release (Cymbalta) tramadol 50 mg tablet 50 mg PO DAILY PRN pain #30 tabs 02/25/25 Rx duloxetine 30 mg capsule,delayed 30 mg PO DAILY #90 caps 07/22/25 Rx release Allergies Allergy/AdvReac Type Severity Reaction Status Date / Time No Known Drug Allergies Allergy Verified 05/07/25 22:11 Exam Constitutional Documenting provider has reviewed patient's vital signs: yes Common normals: no apparent distress, oriented x3, healthy appearing, alert and well nourished General appearance: cooperative HENMT Common normals: normocephalic, hearing grossly normal bilaterally and moist oral mucous membranes Head and scalp: normocephalic Face and sinus: normal facial exam Mouth: oral and palatal mucosa normal Eye Common normals: PERRL Pupil: PERRL Neck & C-Spine Common normals: full ROM General: normal visual inspection Cervical spine: cervical ROM normal Chest Common normals: inspection of chest normal Respiratory Common normals: normal respiratory effort, no retractions and no use of accessory muscles Back & Pelvis Common normals: thoracic and lumbar spine normal to inspection Thoracic spine/upper back: ROM limited; no thoracic spinal tenderness Lumbar spine/lower back: ROM limited and straight leg raise negative bilaterally; no pain with ROM, no lumbar spinal tenderness and no paraspinal muscle tenderness Pelvis: other (no pain over PSIS or tenderness to palpation) Extremity Common normals: normal to inspection and full ROM Right upper extremity: wrist and hand and digits Left upper extremity: wrist and hand and digits Other: full ROM to hands and digits, pain with ROM Neuro Common normals: oriented x3 Sensorium/orientation: alert Motor exam: strength 5/5 throughout and no movement abnormalities noted Psych Common normals: mental status grossly normal, thought process normal, cooperative, affect normal, speech normal and activity/motor behavior normal Appearance: grossly normal Speech: normal speech Thought process: normal thought process Thought content: normal thought content Results Additional Findings Additional findings: If on a controlled substance or opioids, I have checked an [place] report on this patient and there are no aberrancies noted in the prescribing history.??If on a controlled substance or opioid a drug screen was completed and reviewed within the last year, and if there has not been a drug screen completed we ordered one today to monitor higher risk, state monitored pain medication use. As part of providing excellent, safe, comprehensive care, the following was completed at our patient's visit: 1. A medication reconciliation and review to ensure accurate knowledge of current/active medications, including asking our patients to inform us about any cfjk-pse-vcirsui medications or herbal remedies/nutritional supplements/alternative remedies. 2. A review to specifically ensure our patients have had annual screening for screening for depression, screening for tobacco use, and screening for unhealthy alcohol use. For concerning screenings had a discussion with the patient, provided patient education, and recommended follow-up with primary care provider when appropriate. If patient noted with a risk of falling, they received education on strength, gait, and balance training to prevent future risk of falling. Portions of this note may have been carried over from the previous visit and updated as appropriate. Please note this office utilizes paper charting in addition to the electronic medical record. A list of current medications, vitals, and PMH is available there as the clinical staff outside of myself do not have access to [email or web address] charting during the clinic day operations. As part of providing quality comprehensive care the current medications, vitals, and PMH were reviewed in the paper chart. Assessment and Plan Assessment and Plan (1) Lumbar spondylosis: Assessment and Plan: pain well controlled with prior lumbar RFA (2) Osteoarthritis: (3) Muscle spasm: (4) [facility] (current) use of opiate analgesic: Plan pain and functional ability well controlled. continue HEP as tolerated. continue daytime caregiver PRN continue duloxetine 30mg HS continue mobic 15mg daily PRN mild to moderate pain, baclofen 10mg BID PRN pain/spasms, tramadol 50mg daily PRN moderate to severe pain. sparingly utilizes tramadol. f/u 6 months, sooner if needed
== END 2025-08-19 09:22 | disposition home or self-care (01) ==
LOC: PM 09:21
PROVIDERS: PCP Family Medicine; Visit Provider Nurse Practitioner
DX: M47.816 Spondylosis without myelopathy or radiculopathy, lumbar region (principal); M19.90 Unspecified osteoarthritis, unspecified site; M62.838 Other muscle spasm; Z79.891 Long term (current) use of opiate analgesic
CPT/HCPCS: G0463

== ENCOUNTER 2025-10-05 09:12 | Outpatient (OUT) | payer MEDICARE, SELFPAY ==
--- OUTSIDE RECORDS SUMMARY | 2025-10-05 09:14 | XMS_ITS | Clinical Summary ---
Author Organization [facility] Address [address] [place] [address] Care Team Providers Care Police Reserves Commander Name Role Phone Bakari Otto MD Primary Care Provider [phone] Allergies No known active allergies Medications MedicationSigDispense QuantityRefillsLast FilledStart DateEnd DateStatus amLODIPine (Norvasc) 5 MG tablet 06/16/2023ctive levothyroxine (Synthroid, Levoxyl) 50 MCG tablet 06/16/2023ctive metoprolol tartrate (Lopressor) 50 MG tablet 04/03/2023ctive acetaminophen (Tylenol 8 Hour Arthritis Pain) 650 MG ER tablet every 8 (eight) hours.Active alendronate (Fosamax) 70 MG tablet 03/04/2023ctive aspirin 81 MG chewable tablet 1 (one) time each day at the same time.Active omeprazole (PriLOSEC) [address] capsule 1 (one) time each day at the same time.Active [facility] E Oil 45 MG/0.25ML oil USE 1 ML TOPICALLY ONCE DAILY FOR 30 DAYS10/09/2022ctive cetirizine (ZyrTEC) 10 MG chewable tablet Chew DailyActive DULoxetine (Cymbalta) [address] capsule Take 30 mg by mouth in the morning and 30 mg before bedtime. Do not crush or chew. .Active triamcinolone (Kenalog) 0.1 % cream Apply topically 2 (two) times a dayActive cetirizine (ZyrTEC) 10 MG tablet TAKE 1 TABLET BY MOUTH EVERY DAY FOR 30 DAYS11/19/2023ctive Restoril 15 MG capsule 1 (one) time each day at the same timeActive rifAXIMin (Xifaxan) 550 MG tablet Take 550 mg by mouth01/23/2024ctive liothyronine (Cytomel) 5 MCG tablet 5 mcg10/11/2023ctive hyoscyamine (Levsin) 0.125 MG tablet every 4 (four) hoursActive losartan (Cozaar) 100 MG tablet 1 (one) time each day at the same timeActive Glucosamine-Chondroitin (OSTEO BI-FLEX REGULAR STRENGTH PO) Oral, Daily, 0 Refill(s)10/11/2023ctive hyoscyamine (Levsin) 0.125 MG SL tablet DISSOLVE 1 TABLET UNDER TONGUE 4 TIMES A DAY WKGZCH6412/13/2023ctive estradiol (Estrace) 0.5 MG tablet 1 tablet OrallyActive dicyclomine (Bentyl) 20 MG tablet Take 20 mg by mouth in the morning and 20 mg in the evening and 20 mg before bedtime.01/21/2024ctive ALPRAZolam (Xanax) 0.25 MG tablet every 8 (eight) hoursActive tacrolimus (Protopic) 0.1 % ointment Indications:Other atopic dermatitisApply to face and neck twice a day when itchy, hold when clear/ 90 day supply 90 g ctive diclofenac (Voltaren) 75 MG EC tablet every 12 (twelve) hoursActive Active Problems No known active problems Encounters DateTypeDepartmentCare TatgPorbzbprrck24/06/2025 11:50 AM ESTProcedure Visit [facility] [address] [facility] [address] [place] [address] Silvino Arellano DPM Xerosis cutis (Primary Dx); Verruca plantaris; Foot pain, right; Pain due to onychomycosis of toenails of both feet; Acquired deformity of right toe09/10/2025amboo flowsheet [facility] [address] [facility] [address] [place] [address] Silvino Arellano DPM 09/10/20257666Mxzgxt78/05/2025Results Follow-Up [facility] [address] [place] [address] Nathalie Horne MD Dermatopathology exam09/08/2025Telephone [facility] [address] [place] [address] Sabrina Urbina LPN 09/01/2025 1:05 PM EDTOffice Visit [facility] [address] [place] [address] Nathalie Horne MD Seborrheic keratosis (Primary Dx); Seborrheic keratosis, inflamed; Actinic keratosis; Lentigines; Neoplasm of unspecified behavior of bone, soft tissue, and skin09/01/2025amboo flowsheet [facility] [address] [place] [address] Nathalie Horne MD 09/01/2025Travelfrom Last 3 Months Family History Medical HistoryRelationNameCommentsHypertensionMotherMelanomaNeg HxRelationName StatusCommentsFatherDeceasedMotherDeceased Social History Tobacco UseTypesPacks/DayYears UsedDateSmoking Tobacco: NeverSmokeless Tobacco: Never Tobacco Cessation:Counseling Given: Yes Alcohol UseStandard Drinks/WeekCommentsNever0 (1 standard drink = 0.6 oz pure alcohol)CommentsUnknownSex and Gender InformationValueDate RecordedSex Assigned at BirthNot on fileLegal EgxPjfbto27/15/2023 7:15 PM EDTGender Identity Not on fileSexual OrientationNot on file Last Filed Vital Signs Vital SignReadingTime TakenCommentsBlood Kjungafr384/8010 8:19 AM EDT Ikmxd7314 8:19 AM EDTTemperature--Respiratory Edfk461311/10/2024 11:36 AM ESTOxygen Saturation--Inhaled Oxygen Concentration--Cdtuxg68 kg (119 lb) 09/10/2025 11:36 AM UHNExsbuf132 cm (5' 3 )09/10/2025 11:36 AM ESTBody Mass Index21.0809/10/2025 11:36 AM EST Plan of Treatment DateTypeDepartmentCare Team (Latest Contact Info)Cxslcnuciom59/29/2026 10:20 AM ESTProcedure Visit [facility] [address] [place] [address] Silvino Arellano DPM [address] [facility] [address] [place] [address] 08/11/2026 10:30 AM EDTOffice Visit [facility] [place] [facility] [address] [place] [address] Jr. Delgado Aguilar, DO [address] [place] [address] 08/31/2026 1:20 PM EDTOffice Visit [facility] [address] [place] [address] Nathalie Horne MD [address] [place] [address] Health MaintenanceDue DateLast DoneCommentsCOVID-19 Vaccine ( season) 51, 08/16/2021, 12/22/2020, Additional history exists Pneumococcal Vaccine: 65+ RmasiUyklzysmj56/02/2017, 01/18/2016Influenza Vaccine Wtllpexlp35/15/2025, 08/13/2024, 08/16/2023, Additional history exists Procedures Procedure NamePriorityDate/TimeAssociated DiagnosisCommentsCRYOTHERAPY SKIN MYUTGNFojjnez85/28/2025 1:06 PM EDT Actinic keratosis CRYOTHERAPY SKIN DLNLVECqytwjv52/28/2025 1:06 PM EDT Seborrheic keratosis, inflamed SKIN / NAIL QSKQBOJwfpuwm67/28/2025 1:06 PM EDT Neoplasm of unspecified behavior of bone, soft tissue, and skin DERMATOPATHOLOGY KRBGJovjtds26/28/2025 12:00 AM EDT Neoplasm of unspecified behavior of bone, soft tissue, and skin from Last 3 Months Results * Cryotherapy, skin lesion (09/01/2025 1:06 PM EDT) Narrative Authorizing ProviderResult TypeResult StatusEmily A Petitti MDDERM PROCEDURE ORDERABLESFinal Result * Cryotherapy, skin lesion (09/01/2025 1:06 PM EDT) Narrative Authorizing ProviderResult TypeResult StatusEmily A Petitti MDDERM PROCEDURE ORDERABLESFinal Result * Lesion biopsy (09/01/2025 1:06 PM EDT) Narrative Lucy Weir MA - 09/01/2025 1:06 PM EDT Type of biopsy: tangential Informed consent: discussed and consent obtained ?? Informed consent comment: ??The risks and benefits of the biopsy were discussed. Risks include but are not limited to bleeding, infection, scarring, pain, and nerve damage. An opportunity to ask questions prior to the procedure was permitted and all questions were answered. Patient was prepped and draped in usual sterile fashion: area cleansed with alcohol. Anesthesia: the lesion was anesthetized in a standard fashion ?? Anesthetic: ??1% lidocaine w/ epinephrine 1-100,000 buffered w/ 8.4% NaHCO3 Instrument used: DermaBlade ?? Hemostasis achieved with: electrodesiccation ?? Outcome: patient tolerated procedure well ?? Outcome comment: ??The specimen was placed in a prelabeled formalin container to be sent for pathology Post-procedure details: sterile dressing applied and wound care instructions given ?? Post-procedure details comment: ??Emphasized need to contact clinic for any signs of infection, uncontrollable bleeding, or complications. Dressing type: bandage ?? Additional details: ??Photo taken Amount of lidocaine used: 0.5 ml Authorizing ProviderResult TypeResult StatusEmily A Petitti MDDERM PROCEDURE ORDERABLESFinal Result * Dermatopathology exam (09/01/2025 12:00 AM EDT)ComponentValueRef RangeTest MethodAnalysis TimePerformed AtPathologist SignatureSPECIMEN TYPE SPECIMEN: LEFT ELBOW- POSTERIOR [facility] ICD10 CodeL40.9AURORA DIAGNOSTICSPROTOCOLF - FLATAURORA DIAGNOSTICSFinal DiagnosisCONSISTENT WITH PSORIASIS. COMMENT: The possibility of a psoriasiform keratosis was also considered on histologic grounds. ??Clinical correlation is suggested. ??This material was reviewed with Dr. Alvarado. [facility] DIAGNOSTICSGross TextAURORA DIAGNOSTICSMicroscopic DescriptionThis shave- type specimen shows an acanthotic and slightly papillomatous epidermis with focal thinning of suprapapillary plates, loss of the granular cell layer and overlying parakeratin admixed with neutrophils. ??The elastotic stroma contains a lymphocytic infiltrate. ??PAS stains with adequate controls fail to show yeast or hyphal elements in tissue planes examined. [facility] [id number]*1 [id number]*1 [facility]AGNOSTICSSpecimen (Source)Anatomical Location / LateralityCollection Method / VolumeCollection TimeReceived TimeSkinTopography unknown / Unknown 09/01/2025 1:06 PM EDTComment:Differential Diagnosis: AK vs SCC vs psoriasis Check Margins: No Size of lesion: 1.9 x 1.4 cm Narrative Authorizing ProviderResult TypeResult StatusEmkeshia ERICKSON PATHOLOGY ORDERABLESFinal ResultPerforming OrganizationAddressCity/State/ZIP CodePhone Number [facility] from Last 3 Months Insurance Care Teams Team MemberRelationshipSpecialtyStart DateEnd Bakari Otto MD [address] [place] [id number] [facility]
--- OUTSIDE RECORDS SUMMARY | 2025-10-05 09:14 | XMS_ITS | Clinical Summary ---
Author Organization [facility] Address [address] [place] [address] Care Team Providers Care Devops Name Role Phone Unavailable Primary Care Provider Unavailabl e Social History Tobacco UseTypesPacks/DayYears UsedDateSmoking Tobacco: Never AssessedUT Safety & EnvironmentAnswerDate RecordedFear of Current or Ex-PartnerNot on file 12/27/2023Emotionally AbusedNot on file12/27/2023hysically AbusedNot on file 12/27/2023Sexually AbusedNot on file12/27/2023hysically or Sexually AbusedNot on file12/27/2023CommentsUnknownSex and Gender InformationValueDate RecordedSex Assigned at BirthNot on fileLegal VfbApwokh84/29/2022 10:32 PM EDT Gender IdentityNot on fileSexual OrientationNot on file Plan of Treatment Not on file
--- OUTSIDE RECORDS SUMMARY | 2025-10-05 09:29 | XMS_ITS | CCD ---
Author Organization [facility] Care Team Providers Care Windows System Admin Name Role Phone Santiago Patricio Primary Care Physician Rachana Salmon Unavailable MD Santiago Patricio Primary Care Provider [phone] MD Santiago Patricio Attending Provider [phone] Santiago Patricio Attending Unavailable Santiago Patricio Primary [...] HOY ., DR HENDERSON Primary Care Unavailable LITTLE ROCK, DR SHERYL Navarrete Consult[employer] Unavailable HOY [...] RACHANA Admitting Unavailable BLADES, RACHANA Attending Unavailable LITTLE ROCK, DR SHERYL Navarrete [employer] Unavailable HOY [...] Unavailable Santiago Patricio MD Primary Care Provider [phone] Lynn Pastrana Attending Unavailable Lynn Pastrana Attending Unavailable Lynn Pastrana Attending Unavailable Santiago Patricio MD Primary Care Provider [phone] Santiago Patricio MD Primary Care Provider [phone] ISAI HORNE Attending Unavailable CALIXTO BARBA Attending Unavailable CALIXTO BARBA Referring Unavailable ISAI HORNE Attending Unavailable SILVINO CAREY Attending Unavailable SILVINO CAREY Attending Unavailable SILVINO CAREY Attending Unavailable ISAI HORNE Attending Unavailable SILVINO CAREY Attending Unavailable CALIXTO BARBA Attending Unavailable CALIXTO BARBA Referring Unavailable BROWN, SILVINO A Attending Unavailable Allergies Allergy ClassificationReported Allergen(s)Allergy TypeDate of OnsetReaction(s) Facility (1 source)No Known Medication Allergies; Translations: [No Known Medication Allergies]Propensity to adverse reactions (disorder)[facility] Repository Medications Current Medications MedicationDrug Class(es)DatesSig (Normalized)Sig (Original)8 hr acetaminophen 650 mg extended release oral tablet (20 sources)acetaminophen (Tylenol 8 Hour Arthritis Pain) 650 MG ER tablet every 8 (eight) hours. Activealendronic acid 70 mg oral tablet (20 sources)BisphosphonateStart: 13-40-9252xnxydthrvyi (Fosamax) 70 MG tablet 03/04/2023 ActiveALPRAZolam 0.25 mg oral tablet (20 sources)BenzodiazepineALPRAZolam (Xanax) 0.25 MG tablet every 8 (eight) hours ActiveamLODIPine 5 mg oral tablet (20 sources)Dihydropyridine Calcium Channel BlockerStart: 15-82-3692xfMPLXVdov (Norvasc) 5 MG tablet 06/16/2023 ActiveStart: 25-50-3712ncok 2 tablets by mouth once dailyamLODIPine 5 mg Tab 10 mg = 2 tab(s), Oral, Daily, Refills(s) 0 Start Date: 06/08/22 Status: OrderedamLODIPine Besylate 5 MG Oral for 90 Days Active aspirin 81 mg delayed release oral tablet (20 sources)Platelet Aggregation Inhibitor, Nonsteroidal Anti-inflammatory Drug Start: 98-95-4673fnsg 1 tablet by mouth once dailyaspirin 81 mg Oral EC Tab 81 mg = 1 tab(s), Oral, Daily, Refills(s) 0 Start Date: 06/08/22 Status: Ordered aspirin 81 MG chewable tablet 1 (one) time each day at the same time. Active calcium carbonate 1500 mg oral tablet (3 sources)Start: 29-60-5007kzaxhox (as carbonate) 600 mg oral tablet 1,200 mg = 2 tab(s), Oral, Daily, Refills(s) 0 Start Date: 06/08/22 Status: Orderedcetirizine hydrochloride 10 mg oral tablet (20 sources)Histamine-1 Receptor AntagonistStart: 03-26-8233yfru 1 tablet by mouth once dailycetirizine (ZyrTEC) 10 MG tablet TAKE 1 TABLET BY MOUTH EVERY DAY FOR 30 DAYS 11/19/2023 Activecetirizine (ZyrTEC) 10 MG chewable tablet Chew Daily Activetake 1 tablet by mouth once dailyZyrTEC 10 MG 1 tablet Orally Once a day ActiveChondroitin Sulfates / Glucosamine (20 sources)Start: 88-89-5997Jlevkvfxrlm-Chondroitin (OSTEO BI-FLEX REGULAR STRENGTH PO) Oral, Daily, 0 Refill(s) 10/11/2023 ActiveStart: 57-85-0464jhho 1 tablet by mouth once dailyOsteo Bi-Flex 1 tab(s), Oral, Daily, Refill(s) 0 Start Date: 06/08/22 Status: OrderedCVS E Oil 45 MG/0.25ML oil (20 sources)Start: 75-95-3484KOT E Oil 45 MG/0.25ML oil USE 1 ML TOPICALLY ONCE DAILY FOR 30 DAYS 10/09/2022 ActiveStart: 31-82-6910DZP E Oil 45 MG/0.25ML oil USE 1 ML TOPICALLY ONCE DAILY FOR 30 DAYS 0 10/09/2022 Activecyclobenzaprine hydrochloride 10 mg oral tablet (3 sources)Muscle RelaxantStart: 30-51-7838mjox 1 tablet by mouth three times daily as needed for muscle spasmscyclobenzaprine 10 mg Tab 10 mg = 1 tab(s), Oral, TID, PRN for spasm, Refills(s) 0 Start Date: 06/08/22 Status: Ordered diazePAM 10 mg oral tablet (1 source)BenzodiazepinediazePAM 10 MG TAKE 1 TABLET BY MOUTH SINGLE DOSE TAKE 60 MINUTES PRIOR TO PROCEDURE Oral for 1 Days Activediclofenac sodium 75 mg delayed release oral tablet (20 sources)Nonsteroidal Anti-inflammatory DrugStart: 39-41-3483lyfw 1 tablet by mouth twice dailyDiclofenac 75mg Tab-DR = 1 tab(s), Oral, BID, Refills(s) 0 Start Date: 06/08/22 Status: Ordereddiclofenac (Voltaren) 75 MG EC tablet every 12 (twelve) hours ActiveDiclofenac 75mg Tab-DR (2 sources)Start: 22-67-9282dokm 1 tablet by mouth twice dailyDiclofenac 75mg Tab-DR = 1 tab(s), Oral, BID, Refills(s) 0 Start Date: 06/08/22 Status: Ordered dicyclomine hydrochloride 20 mg oral tablet (20 sources)AnticholinergicStart: 42-61-8061omrd 1 tablet by mouth in the morning, then take 1 tablet by mouth in the evening, then take 1 tablet by mouth at bedtimedicyclomine (Bentyl) 20 MG tablet Take 20 mg by mouth in the morning and 20 mg in the evening and 20 mg before bedtime. 01/21/2024 ActiveDULoxetine 30 mg delayed release oral capsule (20 sources)Serotonin and Norepinephrine Reuptake Inhibitortake 1 capsule by mouth in the morningDULoxetine (Cymbalta) [address] capsule Take 30 mg by mouth in the morning and 30 mg before bedtime.Do not crush or chew. . Activeestradiol 0.5 mg oral tablet (20 sources)Estrogenestradiol (Estrace) 0.5 MG tablet 1 tablet Orally Active ferrous sulfate (1 source)take 1 tablet by mouth twice dailyFerrous Sulfate 325 (65 Fe) MG TAKE 1 TABLET BY MOUTH TWICE A DAY Oral for 30 Days Activehyoscyamine sulfate 0.125 mg sublingual tablet (20 sources)Start: 24-76-6660ntzuzguofhz (Levsin) 0.125 MG SL tablet DISSOLVE 1 TABLET UNDER TONGUE 4 TIMES A DAY NEEDED 12/13/2023 Activehyoscyamine (Levsin) 0.125 MG tablet every 4 (four) hours Activelevothyroxine sodium 0.05 mg oral tablet (20 sources)l-ThyroxineStart: 96-91-8061wcgtupmtwbbib (Synthroid, Levoxyl) 50 MCG tablet 06/16/2023 ActiveStart: 41-27-3425pvtp 1 tablet by mouth once daily levothyroxine 50 mcg (0.05 mg) Tab 50 mcg = 1 tab(s), Oral, Daily, Refills(s) 0 Start Date: 06/08/22 Status: Orderedliothyronine sodium 0.005 mg oral tablet (20 sources)l-TriiodothyronineStart: 39-69-5335vqvxijopdrxw (Cytomel) 5 MCG tablet 5 mcg 10/11/2023 ActiveStart: 25-78-8787geby 1 tablet by mouth once daily liothyronine 5 mcg Tab 5 mcg = 1 tab(s), Oral, Daily, Refills(s) 0 Start Date: 06/08/22 Status: Orderedlisinopril 20 mg oral tablet (2 sources)Angiotensin Converting Enzyme InhibitorStart: 87-50-1484tolh 2 tablets by mouth once dailylisinopril 20 mg Tab 40 mg = 2 tab(s), Oral, Daily, Refills(s) 0 Start Date: 06/08/22 Status: Orderedtake 1 tablet by mouth every twenty-four hoursLisinopril 20 MG 1 tablet Orally Once a day Activelosartan potassium 100 mg oral tablet (20 sources)Angiotensin 2 Receptor Blockerlosartan (Cozaar) 100 MG tablet 1 (one) time each day at the same time Activementhol 0.05 mg/mg medicated patch (1 source)apply 1 dose transdermal route three times daily as neededIcy Hot 5 % 1 patch as needed Externally Three times a day for 7 days Activemetoprolol tartrate 50 mg oral tablet (20 sources)beta-Adrenergic BlockerStart: 61-60-0096txiywuxdfa tartrate (Lopressor) 50 MG tablet 04/03/2023 ActiveStart: 27-13-5908Znivkhqktw tartrate 50 mg Tab as directed, Refills(s) 0 Start Date: 06/08/22 Status: OrderedMetoprolol Tartrate 50 MG Oral for 90 Days Activenitroglycerin 0.4 mg sublingual tablet (3 sources)Nitrate VasodilatorStart: 35-59-4502hejukfphebjpo 0.4 mg sublingual Tab 0.4 mg = 1 tab(s), SubLingual, q5min, PRN for chest pain, Refills(s) 0 Start Date: 06/08/22 Status: Orderedomeprazole 20 mg delayed release oral capsule (20 sources)Proton Pump InhibitorStart: 71-03-3781hzwc 1 capsule by mouth twice dailyomeprazole 20 mg Cap-DR 20 mg = 1 cap(s), Oral, BID, Refills(s) 0 Start Date: 06/08/22 Status: Orderedomeprazole (PriLOSEC) [address] capsule 1 (one) time each day at the same time. Activepetrolatum 0.41 mg/mg topical ointment (1 source)Aquaphor - as directed Externally 2x daily for 7 days Activepotassium chloride 20 meq extended release oral tablet (1 source)Potassium Chloride ER 20 MEQ Oral for 30 Days ActiverifAXIMin 550 mg oral tablet (20 sources)Rifamycin AntibacterialStart: 30-34-9232celMPWYjz (Xifaxan) 550 MG tablet Take 550 mg by mouth 01/23/2024 Activetacrolimus 0.001 mg/mg topical ointment (20 sources)Calcineurin Inhibitor ImmunosuppressantStart: 31-23-5036wzgeaapfco (Protopic) 0.1 % ointment Indications: Other atopic dermatitis Apply to face and neck twice a day when itchy, hold when clear/ 90 day supply 90 g 2 06/02/2024 Activetemazepam 15 mg oral capsule (20 sources)BenzodiazepineStart: 35-69-3407fzgy 1 capsule by mouth once daily at bedtimetemazepam 15 mg Cap 15 mg = 1 cap(s), Oral, Once a day (at bedtime), Refills(s) 0 Start Date: 06/08/22 Status: OrderedVitamin E 45 MG/0.25ML (1 source)Start: 40-39-2946pncr 1 mL by mouth once dailyVitamin E 45 MG/0.25ML 1 mL Orally Once a day for 30 day(s) Oct, Active Completed/Discontinued Medications MedicationDrug Class(es)DatesSig (Normalized)Sig (Original)Triamcinolone (20 sources)CorticosteroidStart: 96-98-2546dcymytcaneojw Top 0.1% Crm 1 dano, Topical, BID, Refill(s) 0 Start Date: 06/08/22 Status: OrderedStart: 06-08-2022 triamcinolone Top 0.1% Crm 1 dano, Topical, BID, Refill(s) 0 Start Date: 06/08/22 Status: Orderedtriamcinolone (Kenalog) 0.1 % cream Apply topically 2 (two) times a day Active Problems Active Problems Problem ClassificationProblemDateDocumented DateEpisodic/ChronicAcquired foot deformities (7 sources)Acquired deformity of toe of right foot; Translations: [Acquired deformities of toe(s), unspecified, right foot]54-25-1458LttaiuuuLkzxxyhk reactions (2 sources)Atopic dermatitis; Translations: [Other atopic dermatitis]08-14-2024 ChronicCardiac dysrhythmias (3 sources)Premature atrial avwszhoebuz43-50-6571DyutsdxQaspcputhe disorders (3 sources)Ventricular tvznvydj33-24-1010YxzlnufYynhnqvwtg and other anemia (3 sources)Iron deficiency brbryu00-31-9368ZuznrbfkLgmyhaik mellitus without complication (1 source)Type 2 diabetes mellitus without complications; Translations: [TYPE 2 DM WITHOUT COMPLICATIONS]Onset: 18-44-6444BqvnloyOknwrkoga congenital anomalies (1 source)Other specified congenital malformations of intestine; Translations: [OTH SPEC CONGEN MALFORM INTESTINE]Onset: 53-56-4268ScrmsdeWgoameijhpqifz and diverticulitis (1 source)Diverticulosis of large intestine without perforation or abscess without bleeding; Translations: [DVRTCLOS LG INT NO PERF/ABSC W/O BL]Onset: 24-25-2556NkqkyfdGtprkvmnrb disorders (1 source)Gastro-esophageal reflux disease without esophagitis; Translations: [GERD WITHOUT ESOPHAGITIS]Onset: 14-70-8121TiguubkZvkilavfs hypertension (4 sources)Hypertensive disorder; Translations: [Essential (primary) hypertension]Onset: 137564-67-5578EhmvxdjMqxatewz of upper limb (12 sources)Fracture of shaft of metacarpal bone; Translations: [Nondisplaced fracture of shaft of fifth metacarpal bone, right hand, subsequent encounter for fracture with routine healing]85-86-6736RwwefbqpJrhjapnih and duodenitis (1 source)Unspecified chronic gastritis without bleeding; Translations: [UNS CHRONIC GASTRITIS W/O BLEEDING]Onset: 11-52-9622ViqzkvwNqsplhe (7 sources)Pain in toe; Translations: [Tinea unguium]13-12-1286WbknxyyeDyeqlshpm of unspecified nature or uncertain behavior (3 sources)Neoplastic disease; Translations: [Neoplasm of unspecified behavior of bone, soft tissue, and skin]38-56-1999MftdbzywSvugyntxgincs gastroenteritis (2 sources)Noninfectious enteritis; Translations: [Noninfective gastroenteritis and colitis, unspecified]Onset: 26-35-8758HliqpxmsPyclnefwbaymwc (1 source)Unspecified osteoarthritis, unspecified site; Translations: [UNSPECIFIED OSTEOARTHRITIS UNS SITE]Onset: 49-52-8126BmvclxgNluqd acquired deformities (3 sources)Scoliosis of lumbar iajny55-15-0226UtjsgazDeebh bone disease and musculoskeletal deformities (3 sources)Houdggajwd60-12-9696ResytpayVfyot circulatory disease (3 sources)History of transient ischemic yxxuap15-87-8370OmqravlvKsofs circulatory disease (3 sources)Vascular hyoyuohthzvyl18-89-4620YduobboyPcdjo connective tissue disease (7 sources)Pain in right foot; Translations: [Pain in right foot]08-29-2024 EpisodicOther connective tissue disease (4 sources)Pain in right hand; Translations: [Pain in right hand]07-03-2024 EpisodicOther disorders of stomach and duodenum (1 source)Gastroduodenal disorder; Translations: [Disease of stomach and duodenum, unspecified]Onset: 45-99-0392BdgcclruIfnwa disorders of stomach and duodenum (1 source)Disorder of ycboutz71-42-3313DsuzqpxbDuxbv gastrointestinal disorders (3 sources)Irritable bowel lpwicrpa72-92-9455MamkqxhMdjzm gastrointestinal disorders (1 source)Irritable bowel syndrome without diarrhea; Translations: [IRRITABLE BOWEL SYND W/O DIARRHEA]Onset: 84-59-4242GzpvailFrcif gastrointestinal disorders (1 source)Irritable bowel syndrome with diarrhea; Translations: [Irritable bowel syndrome with diarrhea]Onset: 40-22-3019RktvshrUaitu gastrointestinal disorders (3 sources)Dark gpbgop64-19-7416VhzyaogdHxuho gastrointestinal disorders (3 sources)History of hlcrbpgad17-77-1562AnrjlmutWccko gastrointestinal disorders (3 sources)Occult blood in vinpgd38-46-1142AgrnupogMcyls gastrointestinal disorders (1 source)Abnormal feces; Translations: [Other fecal abnormalities]Onset: 25-93-5492NvhwcxyiHywil nervous system disorders (1 source)Chronic pain; Translations: [Other chronic pain]ChronicOther nervous system disorders (1 source)Other chronic pain; Translations: [OTHER CHRONIC PAIN]Onset: 54-71-1378FoofqetDnwrt non-epithelial cancer of skin (2 sources)History of squamous cell carcinoma of skin; Translations: [Personal history of other malignant neoplasm of skin]19-04-9410NiyohsrwTujgi non- traumatic joint disorders (2 sources)Pain in left knee; Translations: [Pain in joint, lower leg]08-13-2024 EpisodicOther nutritional; endocrine; and metabolic disorders (3 sources)Overweight in adulthood with body mass index of 25 or more but less than 9586-06-7109AhsmchijSzgff skin disorders (5 sources)Actinic keratosis; Translations: [Actinic keratosis]08-14-2024 EpisodicOther skin disorders (3 sources)Inflamed seborrheic keratosis; Translations: [Inflamed seborrheic keratosis]74-51-3803KrrygrizUefnf skin disorders (3 sources)Seborrheic keratosis; Translations: [Other seborrheic keratosis] 09-21-0597IgsjegngYqqpu skin disorders (1 source)Lentiginosis; Translations: [Other melanin hyperpigmentation] 77-41-1886VemqfroxEabcw skin disorders (1 source)Asteatosis cutis; Translations: [Xerosis cutis]58-16-9808Cdwnkdzo Phlebitis; thrombophlebitis and thromboembolism (6 sources)Deep venous thrombosis of lower extremity; Translations: [Personal history of other venous thrombosis and embolism]Onset: EpisodicResidual codes; unclassified (3 sources)Zdnpd18-87-2485BhsluqlfYkobdcij codes; unclassified (3 sources)Xydnwdrf80-87-8369RaeqknmzFyvquads codes; unclassified (2 sources)History of arthroscopy of knee joint; Translations: [Other specified postprocedural states]11-73-7006YatlpepgYeoacjtwtoc; intervertebral disc disorders; other back problems (11 sources)Spondylosis without myelopathy or radiculopathy, lumbar region; Translations: [Spondylosis without myelopathy or radiculopathy, thoracic region] Onset: 33-07-5395DcaddrvIjivlmujxzi; intervertebral disc disorders; other back problems (12 sources)Spinal stenosis of thoracic region; Translations: [Pain in thoracic spine]Onset: 550961-57-7155FodrsknmLhvhdjb disorders (1 source)Hypothyroidism, unspecified; Translations: [HYPOTHYROIDISM UNSPECIFIED]Onset: 73-36-3545QjnwqxuPyppwssvhqrh (3 sources)LOW BACK PAIN, UNSPECIFIED; Translations: [LOW BACK PAIN, UNSPECIFIED]Onset: 16-53-5129Uanfkdhrlwif (1 source)OTHER SPECIFIED DISEASE ESOPHAGUS; Translations: [OTHER SPECIFIED DISEASE ESOPHAGUS]Onset: 47-78-0351Tuzscldzdzfm (3 sources)CONTACT W/AND (SUSP) EXPOS COVID-19; Translations: [CONTACT W/AND (SUSP) EXPOS COVID-19]Onset: 72-66-4699Voonzunu veins of lower extremity (3 sources)Varicose veins of lower ajipxdapc61-92-6476YxxfkwlkShgnd infection (7 sources)Verruca plantaris; Translations: [Plantar wart]10-49-3304Vkdxeulc Viral infection (1 source)COVID-19; Translations: [COVID-19]Onset: 07-05-2022 Past or Other Problems Problem ClassificationProblemDateDocumented DateEpisodic/ChronicDeficiency and other anemia (5 sources)Iron deficiency anemia, unspecified; Translations: [IRON DEFICIENCY ANEMIA UNSPECIFIED]Onset: 63-58-2435PgynjruzPbgfmesmbauaworh hemorrhage (1 source)Melena; Translations: [MELENA]Onset: 81-06-9263SducrshhBiotv aftercare (1 source)long-term (current) use of aspirin; Translations: [CARE HOME CURRENT USE OF ASPIRIN]Onset: 15-26-5985DlsbqekiVelyb aftercare (1 source)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; Translations: [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]Onset: 63-49-3213LetrhjmjIjbxr bone disease and musculoskeletal deformities (4 sources)Other specified disorders of bone, shoulder; Translations: [OTHER SPEC DISORDERS BONE SHOULDER]Onset: 35-35-2561CxovpbndZolyx circulatory disease (4 sources)Other specified symptoms and signs involving the circulatory and respiratory systems; Translations:[OTH SPEC SX SIGNS INVLV CIRC RS]Onset: 13-22-8480EvteotkkRwypi connective tissue disease (1 source)Pain in right lower leg; Translations: [PAIN IN RIGHT LOWER LEG]Onset: 48-84-6322ZoaiirioKlswu connective tissue disease (1 source)Other muscle spasm; Translations: [OTHER MUSCLE SPASM]Onset: 77-43-8391PeginuayWzcsy connective tissue disease (1 source)Pain in left leg; Translations: [PAIN IN LEFT LEG]Onset: 05-29-2022 EpisodicOther connective tissue disease (4 sources)Other specified soft tissue disorders; Translations: [OTHER SPEC SOFT TISSUE DISORDERS]Onset: 63-53-0158IzqdtxejOkncu connective tissue disease (1 source)Pain of toes of bilateral feet; Translations: [Pain in right toe(s)] 65-74-0110XuhdeklyDgvfr gastrointestinal disorders (5 sources)Other fecal abnormalities; Translations: [OTHER FECAL ABNORMALITIES] Onset: 80-59-5160CiccdpqfLsqqa gastrointestinal disorders (4 sources)Diarrhea, unspecified; Translations: [DIARRHEA UNSPECIFIED]Onset: 92-55-8205PjglttutKkrzj lower respiratory disease (5 sources)Other nonspecific abnormal finding of lung field; Translations: [Other nonspecific abnormal findingof lung field]Onset: 80-78-8537EnalusstBdhnp screening for suspected conditions (not mental disorders or infectious disease) (5 sources)Abnormal finding of blood chemistry, unspecified; Translations: [Encounter for screening, unspecified]Onset: 10-33-0604OrqwbcaxCkqxfwxo codes; unclassified (1 source)Acquired absence of other specified parts of digestive tract; Translations: [ACQ ABSENCE OTH PART DIGESTV TRACT]Onset: 09-03-0947Sqwucmfx Residual codes; unclassified (4 sources)Edema, unspecified; Translations: [EDEMA UNSPECIFIED]Onset: 78-32-9303WxobgyfmSdzgrfv disorders (1 source)Disorder of thyroid, unspecified; Translations: [DISORDER OF THYROID UNSPECIFIED]Onset: 67-73-7377TawhlnknIqkxzgmoasqu (1 source)LOW BACK PAIN, UNSPECIFIED; Translations: [LOW BACK PAIN, UNSPECIFIED] Onset: 03-22-0225Zsvzkrhlacpf (1 source)CONTACT W/AND (SUSP) EXPOS COVID-19; Translations: [CONTACT W/AND (SUSP) EXPOS COVID-19]Onset: 07-04-2022 Results Test NameValueInterpretationReference RangeFacilityCryotherapy, skin lesionon [id number] HealthcareNOMS HealthcareLesion biopsyon [id number] of biopsy: tangential Informed consent: discussed and [...] details: Photo taken [facility]: [facility]5 [facility] Panel Informationon [id number] of Missouri Health CareXR Hand - right 3 View[place] 12-29-2024 Imaging Result: 12/29/2024: Multiple views of right hand demontstrate healing 5th MC shaft fracture in acceptable position with increased callus formation when compared to prior x-ray. There was no other acute bony process including but not limited to separate fracture and/or dislocation. 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 [facility]Rad[facility] Study observation (narrative)[facility] CareDermatopathology examon [id number]*1NSSM Health Cardinal Glennon Children's HospitalFinal DiagnosisHYPERTROPHIC ACTINIC KERATOSIS WITH A CUTANEOUS HORN.[facility] Gross TextLAKEVIEW HOSPITAL [id number] CodeL57.0NOID HealthcareMicroscopic Description Initial sections and levels through the block were reviewed.[facility] YorkSpecimen type Nom (Spec) SPECIMEN: LEFT CHEEK [facility] Panel Informationon [id number] of biopsy: tangential Informed consent: discussed and [...] Photo taken Amount of lidocaine used: 1.0 [facility] Panel InformationOrdered By: Elaine Bernardo on [id number] Area District Hospital Hand - right 3 [place] 10-06-2024 Imaging Result: 10/06/2024 Multiple views of right hand demontstrate healing 5th MC shaft fracture in unchanged position and alignment but increased callus formation when compared to prior x-ray. There was no other acute bony process including but not limited to separate fracture and/or dislocation. Impression: Healing right 5th MC shaft fracture Calixto Barba [facility] CenterRad[facility] Study observation (narrative)[facility] Hand - right 3 View[place] [id number] Result: 09/09/2024: AP, LAT and Oblique xray of right hand demonstrate healing oblique fracture of right 5th MC shaft in acceptable position and alignment. There is increased callus compared to previous xray but there is still not a definitive union of fracture. Impression: Healing 5th MC shaft fracture Calixto Barba [facility] CenterRadiology Study observation (narrative)[facility] Hand - right 3 [place] [id number] Result: 08/19/2024: AP, LAT and Oblique xray of right hand demonstrate healing oblique fracture of right 5th MC shaft in acceptable position and alignment. There is increased callus but no definitive union is established. Impression: Healing 5th MC shaft fracture Calixto Barba APRN-[facility] Hand - right 3 View[place] [id number] Study observation (narrative)[facility] Informationon [id number] Health St[facility] Knee - left 1 or 2 Viewson [id number] Result: AP and lateral of left knee [...] Unremarkable left total knee arthroplasty. [facility]dwellRadiology Study observation (narrative)[facility] Hand - right 3 View[place] [id number] Result: Imaging Result: Multiple views of right hand showed fracture through the Shaft of the fifth metacarpal to be in unchanged position and alignment with increased callus formation at the fracture site compared to prior x-ray. There was no other acute bony process including but not limited to separate fracture and/or dislocation. Impression: Healing fracture Shaft of Right fifth met[facility] Hand - right 3 [place] 07-22-2024 Radiology Study observation (narrative)[facility] Hand - right 3 [place] [id number] Result: Multiple views of right hand showed a fifth metacarpal shaft fracture. There was no other acute verena process including but not limited to separate fracture or dislocation. Impression: right fifth metacarpal shaft fractureUNC Health CaldwellNo Panel Informationon 07-03-2024 Calixto Barba NP 07/15/2024 3:31 PM Cast / Splint / Fx [...] and elevation of casted extremity: Cast Care reviewed:[facility] - right 3 [facility] 07-03-2024 Radiology Study observation (narrative)[facility] [facility] CareAmbulatory Visit Summaryon 37-93-0073Fnfzbcvpbr Visit Summary ALICIA BULLOCK :1940 Visit Date:04/14/2024 Ambulatory Visit Instructions Your Diagnosis Chronic diarrhea Gastropathy Your Care Team Attending Physician - Lynn Patsrana MD Primary Care Physician - Santiago Patricio [...] Arthroscopy of knee, Cataract extraction, Cataract extraction, Cho lecystectomy, Knee, Suspension of bladder. Discharge Vitals Heart Rate (Peripheral) 68 Respiratory Rate 16 Blood Pressure 140/77 Height 159 cm Height 63 in Weight 55.6 kg Weight 122.32 lb BMI 21.99 What to do next Scheduled Follow-Up Appointments Sunday 12:45 PM EDT With: Zeina LONGORIA, Lynn Mohr [facility] Note[facility] 05-86-4006Xhsyntvwjeqvhmik Office/Clinic NoteChief Complaint diarrhea HPI Staff This is a [...] TID, # 42 tab(s), Refills(s) 0, Pharmacy: [facility]/pharmacy #[id number], 159, cm, 01/23/24 14:05:00 EDT, Height/Length Dosing, 55, kg, 01/23/24 14:05:00 EDT, Weight Dosing rifaximin, See Instructions, 1 tab(s) Oral TID, # 18 tab(s), Refills(s) 0, samples given to patient(Rx) Continue align and as needed Imodium Might [...] Arthroscopy of knee, Cataract extraction, Cataract extraction, Cho lecystectomy, Knee, Suspension of bladder. Medications amLODIPine 5 [...] lifetime) Tobacco Use:., (more content not included)... [facility]Result Comment: Electronically Signed By: Zeina LONGORIA, Lynn Mohr\.br\Date and Time Signed: 04/14/2412:52 EDT Gastroenterology Office/Clinic Noteon 03-13-9767Tnqkcejmnksjrnqc Office/Clinic NoteChief Complaint ref by dr. patricio for diarrhea [...] Arthroscopy of knee, Cataract extraction, Cataract extraction, Cho lecystectomy, Suspension of bladder. Medications amLODIPine 5 mg [...] and Brother. Cirrhosis o (more content not included)...[facility] Comment on above:Result Comment: Electronically Signed By: Zeina LONGORIA, Lynn Mahoney.br\Date and Time Signed: 01/22/2414:17 EDTPhysician Referralon 01-11-2024 Physician [id number]#1.00TIFFNoSelect Medical [facility] Clinic Rehabilitation Hospital, BeachwoodCoding Summaryon 02-02-5605Dgtwhs SummaryHTMLBase 64 EfyficqrMYm0cLi+PGhlYWQ+UI6JAKKuD74tjRVrrP6aA0MYUHdYStjkDXOYTUsHUfTkgiMhIP7peCPf ZXJu [file] ZXI (more content not included)...[facility] Bloodon 10-18-2023 BloodNo growth at 5 DaysLakeHealth TriPoint Medical CenterComment on above:Performed By: #### [id number], [id number] #### [facility] (DEFAULT) [address], [place] [address]Jmfqowo Formson 95-65-7003Avtqicr Forms [id number]#1.00OTAd[facility] Outside Recordson 13-32-6772Fwozcgv Records [id number]#1.00[facility] Provider Orderson 03-68-5289Tpekcyce Orders [id number]#1.00[facility] Telemetry Stripson 09-24-1624Mdtcltsnn Strips [id number]#1.00OTAdams County Regional Medical CenterBH Therapeutic Documentationon 99-21-5810LK Therapeutic Documentation [id number]#1.00OTAdams County Regional Medical CenterC Bloodon 10-16-2023 Bloodpatient went to CAT scan Nurse from [address] [place] [address] will call when patient is back to her room @1440 nabil No growth at 5 DaysLakeHealth TriPoint Medical CenterComment on above:Performed By: #### [id number] ####[facility] (DEFAULT)[address] [place] [address] CRPon 08-33-1590WVI5.1 mg/dLHigh<=0.5[facility] Rehabilitation HospitalComment on above:Performed By: #### [id number], [id number] #### [facility] (DEFAULT) [address] [place] [address] 70122Bqsjyvzud Patient Summaryon 28-42-3214Iogqrfroy Patient Summary[address] [address] Patient Discharge Instructions Name: ALICIA BULLOCK : 1940 Patient Address: [address] [place] [address] Primary Care Provider: Name: SANTIAGO PATRICIO After you are discharged if you find you have any questions, please, call [phone] ext [phone] to speak to a nurse. The Pharmacy at [facility] is open Sunday through Sunday from 9A to 6P and Sunday and Sunday from 9A to 5P Discharge Diagnosis: 1:Septic arthritis of knee Prescription Information: If you have been given a prescription for narcotics, seek immediate medical attention if you have any difficulty breathing or any sudden status changes such as confusion andsleepiness. If you or anyone you know is experiencing suicidal thoughts, mental health, alcohol and/or drug addiction problems; contact the [facility] 28/05 Crisis Hotline -Text 4HHGP to 699787. If you received any narcotics, sedation, or [...] business decisions or sign any legal documents [facility] would like to thank you for allowing us to assist you with your healthcare needs.The following includes patient education materials and information regarding your injury/illness. ALICIA BULLOCK has been given the following list of follow-up instructions, prescriptions, and patient education materials: Follow-up Instructions With: Address: When: JOB AGUILAR DO [address] [place] [address] Within 10 to 12 days Comments: orthopedic follow up With: Address: When: Andres Vizcarra [address] [place] [address], [address] [place] [address] Business (1) 10/26/2023 10:30 AM [...] cap(s) Oral (given by mouth) 2 times aday. triamcinolone topical (triamcinolone 0.1% topical cream) 1 [...] (DULoxetine 30 mg o (more content not included)...[facility] Noteon 45-70-9337Wiugncuy NoteI have personally reviewed the patient's medication list upon discharge including, prescription medications, OTC products, vitamins and supplements. Below are the following medications the patient isdischarged on. New Medications Other Medications acetaminophen (acetaminophen [...] cap(s) Oral (given by mouth) 2 times aday. triamcinolone topical (triamcinolone 0.1% topical cream) 1 dano Topical (on the skin) 2 times a day. Discharge Med Rec Notes: Reviewed admission medication list against external fill history and available [employer] medication history to ensure accuracy. Reviewed regimen upon discharge which is appropriateand correct. Did not delinquency counselor patient is going to custodial. [Electronically Signed on: 10/16/2023 11:12 EST] Andres Butler [Verified on: 10/16/2023 11:12 EST] Andres Butler [facility] HospitalSed Rateon 34-44-4165Waf Rate83 mm/hrHigh0-20[facility] HospitalComment on above:Performed By: #### [id number], [id number] #### [facility] (DEFAULT) [address] [place] [address] 20518.Auto Diff 1on 29-60-0289Puzz Morrison %9 %Normal1-12[facility] HospitalComment on above:Performed By: #### [id number], [id number], 51566637, 1505331, 9803035 #### [facility] (DEFAULT) [address] [place] [address] 54159Ogmz Abs#0.0 w62Xrghqw0.0-0.2[facility] HospitalComment on above:Performed By: #### 6182901, [id number], 70620131, 5836178, 4242579 #### [facility] (DEFAULT) [address] [place] [address] 17416Vobyjqfki/100 WBC (Bld)0.2 %Normal0.2-2.0[facility] Comment on above:Performed By: #### 8168842, [id number], 46353335, 1514313, 9149468 #### [facility] (DEFAULT) [address] [place] [address] 38791Szc Abs#0.1 u04Jzqwem5.0-0.4[facility] HospitalComment on above:Performed By: #### 7412213, [id number], 72561916, 4737695, 5743457 #### [facility] (DEFAULT) [address] [place] [address] 45739Mlgcnfyuaul/100 WBC (Bld)0.8 %Low0.9-4.0[facility] Comment on above:Performed By: #### 1058307, [id number], 88373020, 9189767, 0424301 #### [facility] (DEFAULT) [address] [place] [address] 42048Laerf Abs#1.1 c83Uwn5.3-2.9Magrthe metrohealth system HospitalComment on above:Performed By: #### 7477475, [id number], 62380179, 0908644, 4178647 #### [facility] (DEFAULT) [address] [place] [address] 27261Hmtetuhfdkn/100 WBC (Bld)13 %Svb74-15[facility] Comment on above:Performed By: #### 6723174, [id number], 20835716, 2237770, 2029941 #### [facility] (DEFAULT) [address] [place] [address] 37860Uygn Abs#0.8 l99Dgaoch7.0-0.8[facility] HospitalComment on above:Performed By: #### 7216677, [id number], 88483213, 4577652, 2876116 #### [facility] (DEFAULT) [address] [place] [address] 55306Ywpk Abs#6.5 r98Yauett3.5-9.2[facility] HospitalComment on above:Performed By: #### 6177487, [id number], 63955437, 7465998, 1588707 #### [facility] (DEFAULT) [address] [place] [address] 90413Mhjxasmcrzf/100 WBC (Bld)76 %Aypkei93-17Tvrlmggs Hospital Comment on above:Performed By: #### 8313775, 0298746074, 45375350, 9944790, 7915940 #### [facility] (DEFAULT) [address] [place] [address] 72112HKF Standardon 77-66-4049Omwgaaruyy ChemNormal [facility] HospitalComment on above:Performed By: #### 4594114, 5851723061, 92176915, 6782638, 1194759 #### [facility] (DEFAULT) [address] [place] [address] 73004oBST Non AA>60Invalid Interpretation [facility] Comment on above:Performed By: #### 4321631, [id number], 49998950, 2742713, 4688801 #### [facility] (DEFAULT) [address] [place] [address] 41425hCAJ AA>60Invalid Interpretation [facility] Comment on above:Performed By: #### 4049247, [id number], 40574909, 1233245, 9141901 #### [facility] (DEFAULT) [address] [place] [address] 94226Xxwyk gap [Moles/Vol]7.4 mmol/LNormal5.0-19.0[facility] HospitalComment on above:Performed By: #### 7356331, 1326417784, 08721069, 3020209, 1116533 #### [facility] (DEFAULT) [address] [place] [address] 74974Skygyaf [Mass/Vol]8.8 mg/dLLow8.9-10.3MOhio [facility]ing [facility] Comment on above:Performed By: #### 9893421, 8528573292, 19477807, 6012350, 5671381 #### [facility] (DEFAULT) [address] [place] [address] 70257Rpjliukh [Moles/Vol]106 mmol/KEofuxx730-025Acmuivsq HospitalComment on above:Performed By: #### 7152520, 8248498651, 93298969, 5735283, 2589501 #### [facility] (DEFAULT) [address] [place] [address] 91584DJ6 [Moles/Vol]26 mmol/ZOnjouj13-82Nguirtuc Hospital Comment on above:Performed By: #### 6055304, 0865528991, 64079637, 9141219, 4858522 #### [facility] (DEFAULT) [address] [place] [address] 77566Kpnwpokefq [Mass/Vol]0.88 mg/dLNormal0.60-1.30[facility] HospitalComment on above:Performed By: #### 9108386, 3464143056, 26526291, 8425724, 5413884 #### [facility] (DEFAULT) [address] [place] [address] 11003Zmibbdk [Mass/Vol]109.0 mg/fNWyfttl88.0-118.0[facility] HospitalComment on above:Performed By: #### 1429960, 8502237353, 37730885, 7643583, 4091625 #### [facility] (DEFAULT) [address] [place] [address] 02594Xqvvlgbzfs514 mOsm/LInvalid Interpretation CodeAvita Health System HospitalComment on above:Performed By: #### 4142833, 7850334130, 05076602, 5849911, 5565524 #### [facility] (DEFAULT) [address] [place] [address] 96378Erqhgkskb [Moles/Vol]4.4 mmol/LNormal3.6-5.1[facility] HospitalComment on above:Performed By: #### 6487659, 7404616420, 60984520, 5995977, 7467266 #### [facility] (DEFAULT) [address] [place] [address] 47886Qhofhq [Moles/Vol]135.0 mmol/QBgl214.0-144.0[facility] HospitalComment on above:Performed By: #### 0160916, 2445896637, 70712019, 8263638, 8410465 #### [facility] (DEFAULT) [address] [place] [address] 72332Xzxy nitrogen [Mass/Vol]19 mg/dLNormal8-26[facility] HospitalComment on above:Performed By: #### 6622964, 5469263565, 63641591, 9842873, 9718337 #### [facility] (DEFAULT) [address] [place] [address] 66836Erja nitrogen/Creatinine [Mass ratio]21.5 mg/mgHigh 4.6-16.2[facility] HospitalComment on above:Performed By: #### 7768350, 2046840506, 96359052, 1813506, 3087251 #### [facility] (DEFAULT) [address] [place] [address] 48587LOW w/ Auto Diffon 26-50-7541Xyasltvatof distribution width (RBC) [Ratio]15.3 %High11.5-15.0[facility] HospitalComment on above: Performed By: #### 2201053, 1464330714, 47955923, 7998200, 5304151 #### [facility] (DEFAULT) [address] [place] [address] 78680Ozfrtlgerf (Bld) [Volume fraction]29.8 %Low33.7-40.4 [facility] HospitalComment on above:Performed By: #### 0296601, 4895876651, 48373089, 7405364, 0477127 #### [facility] (DEFAULT) [address] [place] [address] 64758Pwtggquugn (Bld) [Mass/Vol]9.9 g/dLLow11.3-15.9[facility] HospitalComment on above:Performed By: #### 4380193, 5577572137, 49298411, 9156862, 6724014 #### [facility] (DEFAULT) [address] [place] [address] 13389Elu Diff?AutoInvalid Interpretation [facility] Comment on above:Performed By: #### 3377314, 5642005069, 04394330, 9932780, 0962621 #### [facility] (DEFAULT) [address] [place] [address] 30118PMX (RBC) [Entitic mass]30 gzIvkewu13-67[facility]vbton [facility] Comment on above:Performed By: #### 5868254, 2390871077, 34719919, 2601107, 9307969 #### [facility] (DEFAULT) [address] [place] [address] 36033IKBQ (RBC) [Mass/Vol]33 g/bWCwizqg08-27Fahwnmvq Hospital Comment on above:Performed By: #### 9800272, 7953561420, 10190811, 0952335, 7650835 #### [facility] (DEFAULT) [address] [place] [address] 30282FCW (RBC) [Entitic vol]90 sSGvqiip99-760Mgrnrepj Hospital Comment on above:Performed By: #### 2461193, 7430862379, 25725494, 1558939, 7604898 #### [facility] (DEFAULT) [address] [place] [address] 89159Escuqjzj839 n50Wjmvjg954-567Mkcyiska HospitalComment on above:Performed By: #### 2837781, 6472923168, 80780400, 2317332, 7471895 #### [facility] (DEFAULT) [address] [place] [address] 84917Nezabtjr mean volume (Bld) [Entitic vol]6.1 fLLow6.3-10.2 [facility] HospitalComment on above:Performed By: #### 3702087, 7320912353, 31584387, 1984281, 1376938 #### [facility] (DEFAULT) [address] [place] [address] 98818PMV7.31 s69Beh8.70-5.30[facility] HospitalComment on above: Performed By: #### 3288861, 8667043080, 87280166, 1195898, 9403989 #### [facility] (DEFAULT) [address] [place] [address] 78587DEN8.5 q83Cwjxdf3.5-10.5[facility] HospitalComment on above: Performed By: #### 4505126, 0047533521, 66696529, 3724848, 2403714 #### [facility] (DEFAULT) [address] [place] [address] 73682HPHax 09-08-4332AMM1.1 mg/dLHigh<=0.5[facility] Comment on above:Performed By: #### 1571359, 2065867341, 26923690, 8704772, 7090091 ####[facility] (DEFAULT)[address] [place] [address] 62812 Nutrition Noteon 86-21-0533Pcgububvm NotePer intake records, Pts avg 75+% of meals. Last BM 10/13. 10/15 labs reviewed, CRP/sed rate slowly improving. PICC line in place for IV atb. Discharge anticipated for tomorrow.NormalOhioHealth Dublin Methodist Hospitaled Rateon 90-39-4545Zkg Rate78 mm/hrHigh0-20[facility] HospitalComment on above:Performed By: #### 7989652, 8284040785, 91479049, 0968534, 1930663 ####[facility] (DEFAULT)[address] [place] [address] 05657LA Chest 1 View Frontalon 54-22-4701ML Chest 1 View FrontalHISTORY: PICC placement COMPARISON: 10/12/2023 TECHNIQUE: Portable AP view of the chest FINDINGS: Interval placement of the left upper extremity PICC with the tip of the PICC terminating within theSVC. Atherosclerotic calcification of the thoracic aorta. The cardiomediastinal silhouette is within normal limits. No pneumothorax, pleural effusion, or consolidation. No acute osseous abnormality. IMPRESSION: No radiographic evidence of acute intrathoracic process. Final Signed (Electronic Signature): Dale Richmond DO 10/15/23 1:04 pm Technologist: LINDY LOMELIormalMercy Health [facility] Fluidon 10-14-2023 FluidModerate growth of Streptococcus viridans group Fluid is [...] Tetra S <=0.5 Verified Vanc S 0.5 VerifiedNormalSelect Medical Trihealth Rehabilitation HospitalComment on above:Performed By: #### 2945277, 0727789 #### [facility] (DEFAULT) [address] [place] [address] 23508GLQvu 59-33-0766PXT4.8 mg/dLHigh<=0.5[facility] Comment on above:Performed By: #### 0672116, 9369629 #### [facility] (DEFAULT) [address] [place] [address] 98355Nwm Rateon 94-42-2331Cwj Rate74 mm/hrHigh0-20[facility] HospitalComment on above:Performed By: #### 7369329, 6536391 #### [facility] (DEFAULT) [address] [place] [address] 75757.Auto Diff 1on 56-28-1605Drpg Morrison %5 %Normal1-12[facility] HospitalComment on above:Performed By: #### 3618379, 8409361 #### [facility] (DEFAULT) [address] [place] [address] 82181Teav Abs#0.0 g77Urjble1.0-0.2MagrDayton VA Medical CenterComment on above:Performed By: #### 9007142, 9005059 #### [facility] (DEFAULT) [address] [place] [address] 70821Rpuljftsd/100 WBC (Bld)0.2 %Normal0.2-2.0[facility] Comment on above:Performed By: #### 9811575, 6791262 #### [facility] (DEFAULT) [address] [place] [address] 20572Zsq Abs#0.0 k73Vqwxhf1.0-0.4Magrthe metrohealth system HospitalComment on above:Performed By: #### 4028621, 9869424 #### [facility] (DEFAULT) [address] [place] [address] 70881Mlppijbsltp/100 WBC (Bld)0.1 %Low0.9-4.0[facility] Comment on above:Performed By: #### 1130262, 3656833 #### [facility] (DEFAULT) [address] [place] [address] 96198Gkkhx Abs#1.0 b96Itm2.3-2.9Magrthe metrohealth system HospitalComment on above:Performed By: #### 2558472, 6305872 #### [facility] (DEFAULT) [address] [place] [address] 30820Izikthtmygg/100 WBC (Bld)9 %Irx21-01Gmdryynk Hospital Comment on above:Performed By: #### 8914829, 3852673 #### [facility] (DEFAULT) [address] [place] [address] 08748Kkab Abs#0.6 y71Lnceif4.0-0.8[facility] HospitalComment on above:Performed By: #### 1796435, 4956393 #### [facility] (DEFAULT) [address] [place] [address] 00030Lruo Abs#10.1 q16Avav0.5-9.2Magruder HospitalComment on above:Performed By: #### 9306893, 3743520 #### [facility] (DEFAULT) [address] [place] [address] 81417Gpdwlkraoho/100 WBC (Bld)86 %Lmvhaf81-35Yfihapzr Hospital Comment on above:Performed By: #### 7463870, 3659721 #### [facility] (DEFAULT) [address] [place] [address] 11412NZB Standardon 22-03-2386Oywzwaobnv ChemNormal [facility] HospitalComment on above:Performed By: #### 3664686, 6486628 #### [facility] (DEFAULT) [address] [place] [address] 64689fVVD Non AA>60Invalid Interpretation [facility] Comment on above:Performed By: #### 7972031, 0750391 #### [facility] (DEFAULT) [address] [place] [address] 53639gXCG AA>60Invalid Interpretation [facility] Comment on above:Performed By: #### 0235743, 3678030 #### [facility] (DEFAULT) [address] [place] [address] 24504Jaaancf [Mass/Vol]8.5 mg/dLLow8.9-10.3MOhio [facility] Comment on above:Performed By: #### 6708336, 2932626 #### [facility] (DEFAULT) [address] [place] [address] 09711Dmkvqhgw [Moles/Vol]105 mmol/ODjmgvd646-953Hqeuxcsx HospitalComment on above:Performed By: #### 4109574, 7562515 #### [facility] (DEFAULT) [address] [place] [address] 21020VA0 [Moles/Vol]24 mmol/RTkuwpn13-00Tvuwemft Hospital Comment on above:Performed By: #### 5121287, 3532431 #### [facility] (DEFAULT) [address] [place] [address] 70682Sxmeomtghu [Mass/Vol]0.76 mg/dLNormal0.60-1.30[facility] HospitalComment on above:Performed By: #### 7565420, 6117779 #### [facility] (DEFAULT) [address] [place] [address] 51326Lncvnly [Mass/Vol]113.0 mg/nBAvlruj07.0-118.0[facility] HospitalComment on above:Performed By: #### 4187511, 7295106 #### [facility] (DEFAULT) [address] [place] [address] 06352Hmubifiug [Moles/Vol]4.9 mmol/LNormal3.6-5.1[facility] HospitalComment on above:Performed By: #### 1218602, 4688594 #### [facility] (DEFAULT) [address] [place] [address] 00305Agjmkf [Moles/Vol]135.0 mmol/JJpk526.0-144.0[facility] HospitalComment on above:Performed By: #### 9500404, 3225750 #### [facility] (DEFAULT) [address] [place] [address] 42256Iezx nitrogen [Mass/Vol]33 mg/dLHigh8-26[facility] Comment on above:Performed By: #### 2283492, 9620984 #### [facility] (DEFAULT) [address] [place] [address] 76619Fezwy gap [Moles/Vol]10.9 mmol/LNormal5.0-19.0[facility] HospitalComment on above:Performed By: #### 2761468, 7593868 #### [facility] (DEFAULT) [address] [place] [address] 46037Thutfzmtdc413 mOsm/LInvalid Interpretation CodeAvita Health System HospitalComment on above:Performed By: #### 4760846, 8367510 #### [facility] (DEFAULT) [address] [place] [address] 22299Rcnq nitrogen/Creatinine [Mass ratio]43.4 mg/mgHigh 4.6-16.2[facility] HospitalComment on above:Performed By: #### 7946819, 9303453 #### [facility] (DEFAULT) [address] [place] [address] 10318J Bloodon 10-13-2023 BloodBacillus species No ANICETO performed on this organism Results called to Alicia Leonard RN at 2S by CDD and results read back for confirmation on 10/12/2023 05:12:42NormalSelect Medical Tri[facility] Rehabilitation HospitalComment on above: Performed By: #### 6783509, 7101704 #### [facility] (DEFAULT) [address] [place] [address] 61054FNA w/ Auto Diffon 94-39-9793Ujplayyrzzh distribution width (RBC) [Ratio]15.0 %Fkdpei45.5-15.0[facility] HospitalComment on above: Performed By: #### 1557805, 1462743 #### [facility] (DEFAULT) [address] [place] [address] 84729Utplrejena (Bld) [Volume fraction]26.7 %Low33.7-40.4 [facility] HospitalComment on above:Performed By: #### 2702713, 8611480 #### [facility] (DEFAULT) [address] [place] [address] 87884Fudvpgdqcn (Bld) [Mass/Vol]8.9 g/dLLow11.3-15.9[facility] HospitalComment on above:Performed By: #### 0295978, 5007932 #### [facility] (DEFAULT) [address] [place] [address] 10503Svf Diff?AutoInvalid Interpretation CodeSelect Medical Trihealth Rehabilitation Hospital Comment on above:Performed By: #### 7447782, 7942035 #### [facility] (DEFAULT) [address] [place] [address] 65809YXO (RBC) [Entitic mass]30 rrHwwegp90-87Shbbjjtm Hospital Comment on above:Performed By: #### 8846250, 2625834 #### [facility] (DEFAULT) [address] [place] [address] 77909FPON (RBC) [Mass/Vol]33 g/hRNgldzj44-64Ruffrcsg Hospital Comment on above:Performed By: #### [id number], [id number] #### [facility] (DEFAULT) [address] [place] [address] 52679IQR (RBC) [Entitic vol]89 sDZvycwn78-853Iyczdjsd Hospital Comment on above:Performed By: #### 1753135, 8670932 #### [facility] (DEFAULT) [address] [place] [address] 55836Wirngmey221 e56Shymcx946-401Zxbltdtv HospitalComment on above:Performed By: #### 2024740, 5523289 #### [facility] (DEFAULT) [address] [place] [address] 69151Rufdkvtd mean volume (Bld) [Entitic vol]6.1 fLLow6.3-10.2 [facility] HospitalComment on above:Performed By: #### 5832087, 0915984 #### [facility] (DEFAULT) [address] [place] [address] 71654RPT9.00 o80Sdl9.70-5.30[facility] HospitalComment on above: Performed By: #### 0343828, 9929932 #### [facility] (DEFAULT) [address] [place] [address] 20406EJQ39.8 s63Ymza9.5-10.5[facility] HospitalComment on above: Performed By: #### 8438296, 0833598 #### [facility] (DEFAULT) [address] [place] [address] 21970IFLgp 58-59-7033EVK8.2 mg/dLHigh<=0.5[facility] Comment on above:Performed By: #### 1379801, 8623345 #### [facility] (DEFAULT) [address] [place] [address] 37726Loa Rateon 03-25-6145Oyb Rate82 mm/hrHigh0-20[facility] HospitalComment on above:Performed By: #### 6699442, 6295481 #### [facility] (DEFAULT) [address] [place] [address] 01462.Auto Diff 1on 82-44-0157Vtzp Morrison %6 %Normal1-12[facility] HospitalComment on above:Performed By: #### 27086393, 0133288941, 1638737 ####[facility] (DEFAULT)[address] [place] [address] 01364Oany Abs# 0.0 r12Wygizb4.0-0.2[facility] HospitalComment on above:Performed By: #### 03697686, 4057006591, 5838117 ####[facility] (DEFAULT)[address] [place] [address] 94313Jbqotcoxg/100 WBC (Bld)0.1 %Low0.2-2.0[facility] HospitalComment on above:Performed By: #### 45797102, 2506217041, 4757580 ####[facility] (DEFAULT)[address] [place] [address] 16752Htz Abs# 0.0 y55Fozxds0.0-0.4[facility] HospitalComment on above:Performed By: #### 91736710, 8095125305, 5159754 ####[facility] (DEFAULT)[address] [place] [address] 62233Jxzfqedquuy/100 WBC (Bld)0.0 %Low0.9-4.0[facility] HospitalComment on above:Performed By: #### 60427984, 3127286656, 6102408 ####[facility] (DEFAULT)[address] [place] [address] 80665Kdrmq Abs# 0.7 e86Zem6.3-2.9[facility] HospitalComment on above:Performed By: #### 54859709, 8138894390, 1894499 ####[facility] (DEFAULT)[address] [place], [place] [address]Lymphocytes/100 WBC (Bld)6 %Kmc97-76Swxijtvn HospitalComment on above:Performed By: #### 14627291, 0486922474, 1738164 ####[facility] (DEFAULT)[address] [place] [address] 89293Psvh Abs#0.7 n89Farxyb7.0-0.8 [facility] HospitalComment on above:Performed By: #### 88998480, 3442004976, 2961714 ####[facility] (DEFAULT)[address] [place] [address] 10590 Neut Abs#10.3 o69Amrm9.5-9.2[facility] HospitalComment on above:Performed By: #### 73858668, 3792225629, 3762737 ####[facility] (DEFAULT)[address] [place] [address] 42579Vbfrhfbeebo/100 WBC (Bld)88 %Ilkkom59-81Yfuculgb HospitalComment on above:Performed By: #### 81370446, 4000543032, 1644730 ####[facility] (DEFAULT)[address] [place] [address] 91677DLM w/ Auto Diffon 94-52-8133Nshewrcprga distribution width (RBC) [Ratio]15.5 %High 11.5-15.0[facility] HospitalComment on above:Performed By: #### 62349111, 1932536272, 9372932 ####[facility] (DEFAULT)[address] [place] [address] 89579Bzdkpdnxom (Bld) [Volume fraction]29.6 %Low33.7-40.4[facility] HospitalComment on above:Performed By: #### 89964303, 3173978342, 3815619 ####[facility] (DEFAULT)[address] [place], [place] [address]Hemoglobin (Bld) [Mass/Vol]10.1 g/dLLow11.3-15.9[facility] HospitalComment on above:Performed By: #### 47250824, 1608853843, 5928282 ####[facility] (DEFAULT)[address] [place] [address] 16676Dgr Diff?AutoInvalid Interpretation Code [facility] HospitalComment on above:Performed By: #### 30388098, 3649972412, 1540830 ####[facility] (DEFAULT)[address] [place] [address] 46179 MCH (RBC) [Entitic mass]30 igOeduag56-84Gkinlxrw HospitalComment on above: Performed By: #### 23218525, 4080468890, 9962536 ####[facility] (DEFAULT)[address] [place] [address] 57087OVUJ (RBC) [Mass/Vol]34 g/dL Wvuckf24-63Heschpmv HospitalComment on above:Performed By: #### 30248444, 3822364431, 1029309 ####[facility] (DEFAULT)[address] [place] [address] 62813HED (RBC) [Entitic vol]88 aXOcquhu54-188Tvqozmuj Hospital Comment on above:Performed By: #### 38388838, 8907176063, 7295208 ####[facility] (DEFAULT)[address] [place] [address] 97395Wveskzye753 d05Xegv 138-427[facility] HospitalComment on above:Performed By: #### 79552194, 1877186879, 8118764 ####[facility] (DEFAULT)[address] [place] [address] 85871Dkjjdpze mean volume (Bld) [Entitic vol]6.2 fLLow6.3-10.2 [facility] HospitalComment on above:Performed By: #### 85722878, 3085054292, 4469514 ####[facility] (DEFAULT)[address] [place] [address] RBC3.38 q94Usl3.70-5.30[facility] HospitalComment on above:Performed By: #### 27399209, 5852494795, 2718203 ####[facility] (DEFAULT)[address] [place] [address] 01983DAK85.7 f36Wiuv8.5-10.5[facility] HospitalComment on above:Performed By: #### 17367682, 4585496374, 2922066 ####[facility] (DEFAULT)[address] [place] [address] 41700GJO Standardon 42-06-4495jIDE Non AA57 mL/min/1.33d6Ickoual Interpretation [facility] HospitalComment on above:Performed By: #### 16388851, 6871520472, 4891860 ####[facility] (DEFAULT)[address] [place] [address] 67517pEUC AA>60Invalid Interpretation CodeAvita Health System HospitalComment on above:Performed By: #### 87885125, 2111274952, 8326595 ####[facility] (DEFAULT)[address] [place] [address] 70076 Albumin [Mass/Vol]2.4 g/dLLow3.5-5.0[facility] HospitalComment on above:Performed By: #### 41222559, 0488466714, 2070998 ####[facility] (DEFAULT)[address] [place] [address] 04141Kmagexw/Globulin [Mass ratio]0.6 {ratio}Low1.4-2.6 [facility] HospitalComment on above:Performed By: #### 43250644, 1193048547, 9195562 ####[facility] (DEFAULT)[address] [place] [address] 57192 Alk Unme435 IU/BVsxu08-53Asbvvusb HospitalComment on above:Performed By: #### 71152870, 0231809441, 7533640 ####[facility] (DEFAULT)[address] [place] [address] 59596UHW [Catalytic activity/Vol]19.0 U/QVxhfwp61.0-54.0 [facility] HospitalComment on above:Performed By: #### 49109053, 0165908801, 6536020 ####[facility] (DEFAULT)[address] [place] [address] 36986 Anion gap [Moles/Vol]14.7 mmol/LNormal5.0-19.0[facility] HospitalComment on above: Performed By: #### 91019745, 4765304670, 5256748 ####[facility] (DEFAULT)[address] [place] [address] 16084PGR [Catalytic activity/Vol]17 U/AJewtoj97-44Ssocniwq HospitalComment on above:Performed By: #### 78374391, 8391750253, 7701323 ####[facility] (DEFAULT)[address] [place] [address] 54343Kzio Total0.6 mg/dLNormal0.3-1.2[facility] HospitalComment on above:Performed By: #### 34016708, 1370460749, 7408749 ####[facility] (DEFAULT)[address] [place] [address] 29176Utsetns [Mass/Vol]8.8 mg/dLLow 8.9-10.3[facility] HospitalComment on above:Performed By: #### 37674083, 9169091449, 7601943 ####[facility] (DEFAULT)[address] [place] [address] 27839Cwqyodkz [Moles/Vol]103 mmol/YKethhd914-252Csyclxdx Hospital Comment on above:Performed By: #### 59678864, 2266223385, 1373501 ####[facility] (DEFAULT)[address] [place] [address] 74354WQ6 [Moles/Vol]25 mmol/FIwxmrp49-52Iygbfwms HospitalComment on above:Performed By: #### 66615523, 9676190795, 8073672 ####[facility] (DEFAULT)[address] [place] [address] 43034Tyroglbdxv [Mass/Vol]0.94 mg/dLNormal0.60-1.30[facility] Comment on above:Performed By: #### 82181496, 2741048415, 2388730 ####[facility] (DEFAULT)[address] [place] [address] 92875Agzkxcvx (S) [Mass/Vol] 3.5 g/dLNormal1.5-4.3MOhio State Harding HospitalComment on above:Performed By: #### 78946060, 6655348835, 0623537 ####[facility] (DEFAULT)[address] [place] [address] 36711Wsnboux [Mass/Vol]161.0 mg/oFXtti34.0-118.0[facility] HospitalComment on above:Performed By: #### 28830584, 3068678777, 5350380 ####[facility] (DEFAULT)[address] [place] [address] 95198Usorahpgzd 286 mOsm/LInvalid Interpretation Code[facility] HospitalComment on above:Performed By: #### 33332272, 8753544820, 9814022 ####[facility] (DEFAULT)[address] [place] [address] 25396Luluvhzxn [Moles/Vol]4.7 mmol/LNormal3.6-5.1 Stew HospitalComment on above:Performed By: #### 06945007, 5571607501, 2440570 ####[facility] (DEFAULT)[address] [place] [address] 51225 Protein [Mass/Vol]5.9 g/dLLow6.5-8.1[facility] HospitalComment on above:Performed By: #### 06764532, 4645495030, 4502355 ####[facility] (DEFAULT)[address] [place] [address] 66982Gmdzcx [Moles/Vol]138.0 mmol/UDyqnjz651.0-144.0 [facility] HospitalComment on above:Performed By: #### 05737159, 1539307292, 3425041 ####[facility] (DEFAULT)[address] [place] [address] 97520 Urea nitrogen [Mass/Vol]32 mg/dLHigh8-26[facility] HospitalComment on above: Performed By: #### 58360066, 4251185925, 6257375 ####[facility] (DEFAULT)[address] [place] [address] 19550Aigg nitrogen/Creatinine [Mass ratio]34.0 mg/mgHigh4.6-16.2[facility] HospitalComment on above:Performed By: #### 10511713, 3110314355, 7671143 ####[facility] (DEFAULT)[address] [place] [address] 62131STRmm 89-24-4883CJE8.2 mg/dLHigh<=0.5[facility] HospitalComment on above:Performed By: #### 4248064, 2369377 #### [facility] (DEFAULT) [address] [place] [address] 64502Iefnnon Formson 56-15-3965Ngnnahw Forms [id number]#1.00[facility] Nutrition Noteon 11-52-0712Hosuorrta NotePt admitted w/ Rt knee pain, recent washout. CT scan noting septic arthritis, IV atb initiated. Pt placed on a Regular diet, so far eating 100%. Admit wt 60.8kg no wt hx on file, denied any wt changes per forensics team director assessment. No chewing/swallowing problems identified. Labs reviewed [...] reports taking extra protein at home. [facility] follow.[facility] Noteon 04-19-1197Qqsihiui NoteThis is a 83 Yearsyo FEMALE presenting with [...] Grover [Verified on: 10/12/2023 10:24 EST] Andrés GroverSalem Regional Medical CenterProcalcitoninon 74-49-2353Ogmtclwzxbvpy 0.109 ng/mLLow0.500-1.000[facility] HospitalComment on above:Performed By: #### [id number] #### [facility] (DEFAULT) [address] [place] [address] 31176Ftw Rateon 27-99-6899Xat Rate74 mm/hrHigh0-20[facility] HospitalComment on above:Performed By: #### 4456690, 7875227 #### [facility] (DEFAULT) [address] [place] [address] 83245RG Echocardiogram Completeon 97-83-7644KQ Echocardiogram Complete APPROVED REPORT EXAM: Comprehensive 2D, [...] Junction2.89 cm F: 2.3 - 2.9 LV Hqvh482.22 g LVOT Diameter 2.09 cm IVC1.25 (<= [...] Single Plane 4 CH 25.69 mLBiplane LA Jrcelr70.33 mL Single Plane 2 CH67.19 mLLA ESV Index29.65 mL/m2 Right Atrium Area Systole RA Systolic Area A4C9.10 cm2RA Systolic Vol A4C19.30 mL Aortic Valve AoV Peak Velocity1.30 m/sLVOT Peak Velocity1.04 m/s AO Mean Velocity0.86 m/sLVOT Mean Velocity0.61 m/s AO Peak PG6.80 mmHgLVOT Peak PG4.31 mmHg AO Mean PG3.48 mmHgLVOT Mean PG1.86 mmHg AO V2 VTI22.79 cmLVOT V1 VTI20.10 cm ESTUARDO (Vmax)2.73 hd8BEGY Area 3.43 cm2 ESTUARDO (VTI)3.03 cm2SV (LVOT) 68.96 mL Indexed ESTUARDO (VTI)1.85 cm2/m2AI Nash 2.40 m/s2 AI IGT338.11 ms Mitral Valve MV Max Kuggpiyy146.09 m/sMV PHT58.48 ms MV E Max Velocity0.55 m/sMVA (PHT)3.76 cm2 MV A Max Velocity0.67 m/sMR ZJB217.58 cm E/A Ratio0.8MR Peak Velocity5.74 m/s MV Decel. Ntfe935.67 ms TDI Med e' Velocity5.08 cm/sMV E / Medial e' 10.72 Lat e' Velocity6.45 cm/sMV E / Lateral e' 8.45 TV S'16.13 cm/s Pulmonary Valve PV Peak Velocity0.78 m/sPV Peak PG2.43 mmHg UT End Diastolic Carlos.62.56 m/s PV Mean PG1.46 mmHg Tricuspid Valve TR Peak Velocity3.10 m/sRAP Estimate3.00 mmHg TR Peak PG38.55 iuDkQGNR18.55 mmHg Final Signed (Electronic Signature): Marquis Pulido MD 10/12/23 3:45 pm Technologist: [facility] HospitalXR Chest 1 View Frontalon 55-08-6577IB Chest 1 View FrontalCLINICAL HISTORY: Sepsis. COMPARISON: None available. TECHNIQUE: A portable upright AP radiograph of the chest was obtained. FINDINGS: There is no significant pulmonary infiltrate, cardiomegaly, vascular congestion, pleural effusion, pneumothorax, or other findings of concern identified. IMPRESSION: NO EVIDENCE OF ACTIVE CARDIOPULMONARY DISEASE, BY PORTABLE CHEST RADIOGRAPHY. Final Signed (Electronic Signature): Rigo Brown MD 10/12/23 9:27 am Technologist: [facility].Auto Diff 1on 17-56-1368Uebu Morrison %7 %Normal1-12[facility] HospitalComment on above:Performed By: #### 6359065, 1777951978, 64844140, 2037353017, 0304726086, 2655538200, 4789806767, 7478858 ####[facility] (DEFAULT)[address] [place] [address] 36254Mkab Abs# 0.1 u48Llsxdd3.0-0.2[facility] HospitalComment on above:Performed By: #### 7826852, 5694057649, 49946371, 6555696135, 5610720550, 8327268397, 6841240066, 3731803 ####[facility] (DEFAULT)[address] [place] [address] 90633 Basophils/100 WBC (Bld)0.4 %Normal0.2-2.0[facility] HospitalComment on above: Performed By: #### 7357795, 0861080598, 23635234, 3543703439, 4548233635, 3581359198, 6202230008, 1581472 ####[facility] (DEFAULT)[address] [place] [address] 89376Dqi Abs#0.0 u18Zbxuai9.0-0.4[facility] HospitalComment on above:Performed By: #### 5281970, 6036265571, 38417193, 8484312114, 9883988223, 2260875750, 6163778655, 0115826 ####[facility] (DEFAULT)[address] [place] [address] 15476Xezpqhuhlvx/100 WBC (Bld)0.2 %Low0.9-4.0 [facility] HospitalComment on above:Performed By: #### 3157278, 4658483487, 32636753, 4985875574, 2110703669, 3274933296, 0513093049, 5134908 ####[facility] (DEFAULT)[address] [place] [address] 97293Gkwrl Abs#1.2 x10Low 1.3-2.9Magrthe [facility]health system HospitalComment on above:Performed By: #### 7790644, 0895370420, 78457757, 3895688095, 4348385754, 6345413913, 2097423642, 9638857 ####[facility] (DEFAULT)[address] [place] [address] 32579Ohisqjqabwj/100 WBC (Bld)8 %Xut73-14Oqblmwga HospitalComment on above:Performed By: #### 8065733, 1051559947, 64306336, 8773738521, 8013257294, 0967862372, 0024937588, 9994868 ####[facility] (DEFAULT)[address] [place] [address] 66744Aghm Abs# 1.1 y04Zphs7.0-0.8[facility] HospitalComment on above:Performed By: #### 1260699, 4697597072, 81914222, 0722493869, 2626380648, 7249189842, 5800590439, 1086454 ####[facility] (DEFAULT)[address] [place] [address] 55858Jzse Abs# 13.6 b78Gkjk7.5-9.2[facility] HospitalComment on above:Performed By: #### 3848852, 6926835833, 81845064, 2601959296, 0394321892, 1823578186, 8035525392, 4697196 ####[facility] (DEFAULT)[address] [place] [address] 15922 Neutrophils/100 WBC (Bld)85 %Pyxlfk77-66Uvozukgo HospitalComment on above: Performed By: #### 2883332, 2008402913, 19250728, 2530473257, 4526087707, 5040029965, 2201625363, 5809200 ####[facility] (DEFAULT)[address] [place] [address] 31819Wxpsecwrai Noteon 31-94-5131Dbtupdyigw NotePatient: ALICIA BULLOCK Age: 83 years Sex: FEMALE [...] [Verified on: 10/11/2023 13:00 EST] Sheryl Dennis [facility]stownAnesthesi NotePatient: ALICIA BULLOCK Age: 83 years Sex: FEMALE [...] All Problems HTN (hypertension) / SNOMED CT 3841155397 / Confirmed Hypothyroidism / SNOMED CT 79657496 / Confirmed Histories Family History: No family history items have been selected or recorded. Procedure history: Appendectomy (875384972). History of total hysterectomy (7505542463). Knee (999622850). Comments: 10/11/2023 7:23 Radha Siddiqui RN total left Plantar fasciitis (244426651). Comments: 10/11/2023 7:26 Radha Siddiqui RN left Cholecystectomy (83961862). Metatarsal (38672819). Comments: 10/11/2023 7:25 Radha Siddiqui RN right [...] Oriented. Review / Management Laboratory Results Plan [place] [employer] Anesthesiologists#(ASA) physical status classification: Class III. Anesthetic Preoperative Plan Anesthesia: General. . Anesthetic plan, risks, benefits, and alternatives discussed with the patient and/or family. Risks discussed: nausea, vomiting, sore throat, serious complications. Patient verbalized understanding.Family/Guardian present. Informed consent was given. Consent was signed by the patient. [Electronically Signed on: 10/11/2023 09:23 EST] Sheryl Dennis DO [Verified on: 10/11/2023 09:23 EST] Sheryl Dennis [facility] YoungstownBF Cell Cnton 32-02-3037Lldbdm BFClUniversity Hospitals Portage Medical CenterComment on above:Order Comment: right knee fluidPerformed By: #### 6256494 #### [facility] (DEFAULT) [address] [place] [address] 96474Entp Cnt BF TypeSynovial FlSalem Regional Medical Center HospitalComment on above:Order Comment: right knee fluidPerformed By: #### 8389344 #### [facility] (DEFAULT) [address] [place] [address] 92362Hkzqh BFRedNoSalem Regional Medical CenterComment on above:Order Comment: right knee fluidPerformed By: #### 4606796 #### [facility] (DEFAULT) [address] [place], [place] [address]RBC [id number] Interpretation [facility] Comment on above:Order Comment: right knee fluidPerformed By: #### [id number] #### [facility] (DEFAULT) [address] [place], [place] [address]WBC [id number] Interpretation [facility] Comment on above:Order Comment: right knee fluidPerformed By: #### [id number] #### [facility] (DEFAULT) [address] [place] [address] 62193SWP Standardon 10-15-1466Zdlqopkmri ChemNormal [facility] HospitalComment on above:Performed By: #### 7116153, 7069556638, 85549833, 5243878763, 3401438323, 5093649819, 2212494236, 8105803 ####[facility] (DEFAULT)[address] [place] [address] 13243pZEU Non AA57 mL/min/1.54o6Peekvrr Interpretation [facility] HospitalComment on above: Performed By: #### 4766766, 2317087926, 77660267, 3847732144, 7334479915, 5152685158, 1144484676, 7796556 ####[facility] (DEFAULT)[address] [place] [address] 76612rXDU AA>60Invalid Interpretation [facility] HospitalComment on above:Performed By: #### 6107080, 3989752627, 42365567, 5240106913, 5801662512, 0494337406, 2296303137, 0779638 ####[facility] (DEFAULT)[address] [place] [address] 31860Ufkqo gap [Moles/Vol]13.6 mmol/L Normal5.0-19.0[facility] HospitalComment on above:Performed By: #### 9026331, 9508670975, 03854819, 6711532818, 0486329952, 1198210191, 3228498430, 3623338 ####[facility] (DEFAULT)[address] [place] [address] 76154Kcagcfo [Mass/Vol]9.6 mg/dLNormal8.9-10.3MOhio State Harding HospitalComment on above:Performed By: #### 5565734, 6515364216, 77210295, 4691419400, 2887686452, 9569845865, 4443914444, 7083707 ####[facility] (DEFAULT)[address] [place] [address] 52747Ppmgchpy [Moles/Vol]102 mmol/MCrqnjg137-493Whxlokng Hospital Comment on above:Performed By: #### 9919507, 9830092310, 73429428, 3295010276, 0482875710, 6404759808, 5449323162, 2612523 ####[facility] (DEFAULT)[address] [place] [address] 45951VZ5 [Moles/Vol]25 mmol/MMmsepd83-53Uwpqfsjj HospitalComment on above:Performed By: #### 6646013, 8638160402, 64657014, 1471105235, 5082290219, 9460677515, 1248319414, 2314042 ####[facility] (DEFAULT)[address] [place] [address] 83478Voscsnlbxn [Mass/Vol]0.93 mg/dL Normal0.60-1.30[facility] HospitalComment on above:Performed By: #### 7724962, 6870256625, 00813818, 7626153466, 9825831013, 4085125763, 8221129427, 6992995 ####[facility] (DEFAULT)[address] [place] [address] 17298Ywurnsa [Mass/Vol]114.0 mg/cLPlpuht10.0-118.0[facility] HospitalComment on above:Performed By: #### 3148473, 4780365803, 28545349, 8855394037, 4379242442, 6171107965, 6039201832, 9769336 ####[facility] (DEFAULT)[address] [place] [address] 82939Tnbieznxio309 mOsm/LInvalid Interpretation CodeAvita Health System HospitalComment on above:Performed By: #### 1735752, 3663976797, 96486622, 1827981463, 0731741865, 3666506822, 3967736954, 4725468 ####[facility] (DEFAULT)[address] [place] [address] 01418Lpvtrjalz [Moles/Vol]4.6 mmol/L Normal3.6-5.1[facility] HospitalComment on above:Performed By: #### [id number], [id number], [id number], [id number], [id number], [id number], [id number], [id number] ####[facility] (DEFAULT)[address] [place] [address] 45322Kfegwv [Moles/Vol]136.0 mmol/UGhdibu152.0-144.0[facility] HospitalComment on above: Performed By: #### [id number], [id number], [id number], [id number], [id number], [id number], [id number], [id number] ####[facility] (DEFAULT)[address] [place] [address] 98566Zhuf nitrogen [Mass/Vol]30 mg/dLHigh8-26[facility] HospitalComment on above:Performed By: #### [id number], [id number], [id number], [id number], [id number], [id number], [id number], [id number] ####[facility] (DEFAULT)[address] [place] [address] 18675Axhe nitrogen/Creatinine [Mass ratio]32.2 mg/mgHigh4.6-16.2[facility] HospitalComment on above:Performed By: #### [id number], [id number], [id number], [id number], [id number], [id number], [id number], [id number] ####[facility] (DEFAULT)[address] [place] [address] 70343 Body Fluid Diffon 39-18-0617HO Bands %2Invalid Interpretation [facility] HospitalComment on above:Order Comment: Right knee fluidVerbal order per Kelly LongPerformed By: #### [id number] ####[facility] (DEFAULT)[address] [place], [place] [address]BF Baso %0Invalid Interpretation CodeSelect Medical [facility] Rehabilitation HospitalComment on above:Order Comment: Right knee fluidVerbal order per Kelly LongPerformed By: #### [id number] ####[facility] (DEFAULT)[address] [place] [address] 11548DO Eos %0Invalid Interpretation [facility] HospitalComment on above:Order Comment: Right knee fluidVerbal order per Kelly LongPerformed By: #### [id number] ####[facility] (DEFAULT)[address] [place] [address] 15625GO Lymph %5Invalid Interpretation [facility] HospitalComment on above:Order Comment: Right knee fluidVerbal order per Kelly LongPerformed By: #### [id number] ####[facility] (DEFAULT)[address] [place] [address] 66403KC Morrison %0Invalid Interpretation [facility] HospitalComment on above:Order Comment: Right knee fluidVerbal order per Kelly LongPerformed By: #### [id number] ####[facility] (DEFAULT)[address] [place], [place] [address]BF Segs %93Invalid Interpretation [facility] HospitalComment on above:Order Comment: Right knee fluidVerbal order per Kelly LongPerformed By: #### [id number] ####[facility] (DEFAULT)[address] [place], [place] [address]CBC w/ Auto Diffon 83-95-6828Bkzmjhiwcaj distribution width (RBC) [Ratio]15.3 %High11.5-15.0[facility] HospitalComment on above:Performed By: #### [id number], [id number], 16436056, 5594601464, 2728981862, 8921188991, [id number], [id number] ####[facility] (DEFAULT)[address] [place] [address] 39554Qmazxlubmm (Bld) [Volume fraction]36.1 %Normal 33.7-40.4[facility] HospitalComment on above:Performed By: #### [id number], [id number], 27891993, 2558735960, 6466025294, 9334622464, 6010771249, 4772312 ####[facility] (DEFAULT)[address] [place] [address] 53293Mcowarimaz (Bld) [Mass/Vol]11.8 g/xFHgkmkb66.3-15.9[facility] HospitalComment on above: Performed By: #### [id number], [id number], 21253472, 9019573461, 6140129071, 4487835858, 9976239654, 8575757 ####[facility] (DEFAULT)[address] [place] [address] 54572Phg Diff?AutoInvalid Interpretation CodeAvita Health System HospitalComment on above:Performed By: #### 8987004, [id number], 07943459, 3561576306, 6682486810, 1273504831, 6826847133, 1371913 ####[facility] (DEFAULT)[address] [place] [address] 10853RXJ (RBC) [Entitic mass]29 pg Ulvmcr95-34Tslbdtti HospitalComment on above:Performed By: #### [id number], [id number], 02081116, 0344240484, 2863003175, 1299676707, 9557335918, 4923744 ####[facility] (DEFAULT)[address] [place] [address] 18549TBRR (RBC) [Mass/Vol]33 g/jMSbauwn86-69Fhiwbvnd HospitalComment on above:Performed By: #### 0842219, [id number], 40577812, 7255792221, 2450499527, 0434844605, 4634285252, 3303155 ####[facility] (DEFAULT)[address] [place] [address] 33141 MCV (RBC) [Entitic vol]89 vIQybzlz79-639Ygdljqmu HospitalComment on above: Performed By: #### 6535009, 9891660835, 97671388, 3858223829, 8221482361, 2713894079, 1326323913, 8808597 ####[facility] (DEFAULT)[address] [place] [address] 62465Azwadhii753 t79Ebig267-375Mjwfjoud HospitalComment on above:Performed By: #### 1665286, 5425905736, 72504892, 5781433687, 6773061135, 4423658754, 4624375863, 2011976 ####[facility] (DEFAULT)[address] [place] [address] 17214Nchvlekw mean volume (Bld) [Entitic vol]6.2 fLLow6.3-10.2Magrthe metrohealth system HospitalComment on above:Performed By: #### 7304107, 1330527769, 73223556, 6920814468, 5053046369, 7803156013, 1266020824, 6295054 ####[facility] (DEFAULT)[address] [place] [address] 37564AGK6.05 s46Mmfasa8.70-5.30[facility] HospitalComment on above:Performed By: #### 1569087, 4708576709, 95676252, 4758660075, 0065578978, 8394167617, 6418200021, 5094344 ####[facility] (DEFAULT)[address] [place] [address] 25933GPI74.0 n06Uclv2.5-10.5[facility] HospitalComment on above:Result Comment: Slide Reviewed Performed By: #### 9914688, 7156347444, 03031971, 9336627273, 8560636566, 7701666815, 1422883045, 7913001 ####[facility] (DEFAULT)[address] [place] [address] 72651KZOlu 04-52-0684SXA1.1 mg/dLHigh<=0.5[facility] HospitalComment on above:Performed By: #### [id number] ####[facility] (DEFAULT)[address] [place] [address] 00178QF Lower Extremity w/ Contrast Righton 61-83-7666JN Lower Extremity w/ Contrast RightCLINICAL HISTORY: Generalized pain and swelling. Evaluate for [...] the patellofemoral compartment. A small amount of softtissue emphysema adjacent to the lateral femoral condyle anteriorly is likely related to recent surgery. IMPRESSION: Findings suspicious for septic arthritis. Approximately 1.6 cm calcified loose body in the lateral joint recess. Nonspecific approximately 3.5 x 1 cm fluid collection within the popliteus muscle, as noted. Osteoarthrosis. Final Signed (Electronic Signature): Rigo Brown MD 10/11/23 4:31 pm Technologist: MJ LUKEOhio Valley HospitalExjose manuel SSTon 54-48-8156Tbvc Collected YesInvalid Interpretation [facility] HospitalComment on above:Performed By: #### [id number], [id number], 04176627, 5352167150, 5407272113, 1366903494, 0150086065, 7253053 ####[facility] (DEFAULT)[address] [place], [place] [address]HSLW Intraoperative Recordon 52-20-7635RFBN Intraoperative RecordMAGR Intra-Op Record Summary Primary Physician: JOB AGUILAR DO Finalized Date/Time: 10/11/23 14:40:54 Pt. Name: ALICIA BULLOCK /Sex: 1940 FEMALE Med Rec #: [id number] Physician: JOB AGUILAR DO Financial #: [id number] Pt. Type: I Room/Bed: [facility] [place] 2] Admit/Disch: 10/11/23 06:57:39 - Institution: Case Times [...] Role Performed Surgeon - Primary Anesthesiologist of Sculpture Instructor Record Time In 10/11/23 11:40:00 10/11/23 11:40:00 10/11/23 11:40:00 Time Out 10/11/23 12:48:00 10/11/23 12:53:00 10/11/23 12:53:00 Procedure Arthroscopy Knee(Right) Arthroscopy Knee(Right) Arthroscopy Knee(Right) Last Modified By: Sandra Shepard RN, Barbara RN Long, Barbara RN 10/11/23 12:55:35 10/11/23 12:55:35 10/11/23 12:55:35 Entry 4 Entry 5 Case Attendee Gloria Saldaña CST, CSTay, Rina M CSFA CSFA Role Performed Scrub Personnel Pharmacy Grad Intern Time In 10/11/23 11:40:00 10/11/23 11:40:00 Time [...] Sheryl Dennis DO, Sandra Shepard RN, Piotr INSTRUCTIONAL COACH, Gloria MARTINEZ CSFA, Rina Muñoz CSFA Last [...] Outcome Met (O.80) Ye (more content not included)...[facility] PACU Recordon [id number] PACU RecordMA PACU Record Summary Primary Physician: JOB AGUILAR DO Finalized Date/Time: 10/11/23 13:56:49 Pt. Name: ALICIA BULLOCK /Sex: 1940 FEMALE Med Rec #: [id number] Physician: JOB AGUILAR DO Financial #: [id number] Pt. Type: D Room/Bed: [facility]/1 Admit/Disch: 10/11/23 06:57:39 - Institution: PACU Case Times MAGR Entry 1 In PACU I 10/11/23 12:55:00 Discharge from PACU 10/11/23 13:40:00 I Last Modified By: Radha Seo RN 10/11/23 13:56:45 Finalized By: Radha Seo RN Document Signatures Signed By: Radha Seo RN 10/11/23 13:56NormalMagruder HospitalMAGR Preoperative Recordon [id number] Preoperative RecordMAGR Pre-Op Record Summary Primary Physician: JOB AGUILAR DO Finalized Date/Time: 10/11/23 12:17:03 Pt. Name: ALICIA BULLOCK /Sex: 1940 FEMALE Med Rec #: [id number] Physician: JOB AGUILAR DO Financial #: [id number] Pt. Type: D Room/Bed: / Admit/Disch: 10/11/23 [...] ready for surgery. The patient remains free froms/s of injury. Patient/family express understanding of plan of care and participate in decisions affectinghis or her perioperrative plan of care. Allergies documented appropriately. Patient identifiers and consent correct. General Comments: Pt arrives to w ambulatory. PT denies cp, sob, cough or flu like symptoms. PT denies pacemaker/defibillator or sleep apnea. Finalized By: Sandra Shepard RN Document Signatures Signed By: Sandra Shepard RN 10/11/23 12:17[facility] Noteon 10-11-2023 Pharmacy NoteThe following medications(s) has been reviewed for renal dose adjustment per P &T protocol based on the patient's current creatinine clearance: Medication: Enoxaparin 30mg q12h Estimated CrCl: 36.58 ml/min _ Action: No change required Changes Made: [Electronically Signed on: 10/11/2023 14:07 EST] Andres Butler [Verified on: 10/11/2023 14:07 EST] Andres Butler The following medications(s) has been reviewed for renal dose adjustment perP &T protocol based on the patient's current creatinine clearance: Medication: Enoxaparin 40mg QD Estimated CrCl: 44.77 ml/min _ Action: No change required Changes Made: [Electronically Signed on: 10/13/2023 09:39 EST] [facility]res [facility] Rateon 96-42-5139Puh Rate80 mm/hrHigh0-[facility] HospitalComment on above:Performed By: #### [id number], [id number], 49519515, 6531666402, 0810991828, 2430740628, 8753419731, 3121873 ####[facility] (DEFAULT)[address] [place], [place] [address]BSFCDJZMUP on 30-03-7325Janlgauwac [Mass/Vol]1.25 mg/dLCritically high0.55-1.02[facility] HospitalComment on above:Performed By: #### CREA #### [facility] [address] [place] [address] Dr. Lolita MontoyaGFR-AF ITWACUDW30 mL/min/1.96s7Dkecebfwiv low>=60The [facility] HospitalComment on above:Performed By: #### CREA #### [facility] [address] [place] [address] Dr. Lolita MontoyaGFR-NON AF ZVXNMKWX00 mL/min/1.30i1Ufqswpesle low>=60The [facility] HospitalComment on above:Performed By: #### CREA #### [facility] [address] [place] [address] Dr. Lolita AlvaradoCT CHEST W CONon 01-96-3305FT CHEST W CONEXAMINATION: CT CHEST W CON HISTORY: Solitary nodule of lung [...] Electronically authenticated by: RIGO WHITTAKER Date: 2023-04-04 16:[address] [place] [address] CHEST W CONon 16-13-5071OQ CHEST W CONEXAMINATION: CT CHEST W CON HISTORY: Right lung structure ; [...] Electronically authenticated by: RIGO WHITTAKER Date: 2022-12-26 09:[address] [place], [place] [address]CREATININEon 90-70-7728Coemmvfyib [Mass/Vol]0.85 mg/dLNormal 0.55-1.02[facility] HospitalComment on above:Performed By: #### CREA #### [facility] [address] [address] [address] Lolita MontoyaGFR-AF UKRAINIAN>60Normal>=60The [facility] HospitalComment on above:Performed By: #### CREA #### [facility] [address] [address] [address] Lolita MontoyaGFR-NON AF UKRAINIAN>60Normal>=60[facility] on above:Performed By: #### CREA #### [facility] [address] [address] [address] Lolita AlvaradoGlucose Glucometer ([facility]) [Mass/Vol]Ordered By: Santiago Patricio on 34-81-7014Mhjrsrg [Mass/Vol]97 mg/dLAshtabula County Medical CenterComment on above:Random Glucose Reference Range is dependent on time and content of last meal. Glucose of more than 200 mg/dL in a nonstressed, ambulatory subject supports the diagnosis of Diabetes Mellitus.Glucose Poct Glucometerson 75-85-8620Hmtxiuf [Mass/Vol]97 mg/dLAshtabula County Medical Center Comment on above:Result Comment: Random Glucose Reference Range is dependent on time and content of last meal. Glucose of more than 200 mg/dL in a nonstressed, ambulatory subject supports the diagnosis of Diabetes Mellitus. PERFORMED BY: [place] [address] PATHOLOGIST FLAP LINING BINDER NEW MEDEIROS M.D.Performed By: #### GLULS #### Point of Care testing ,PET tumor init tx strat sb-mton 67-00-8707WLM tumor init tx strat sb-mt [facility] [place] [address] [place] [address] Nuclear Medicine Report Signed Patient: Alicia Bullock MR#: [id number] : 1940 Acct:[id number] Age/Sex: 82 / F ADM Date: 11/01/22 Loc: Room: [facility] Attending Dr: Santiago Patricio MD Copies [...] Candi Leigh M.D.11/01/2022 1:32 PM Dictation Location: [place] [address] Transcribed By: [facility] 11/01/22 133 Dictated By: Candi Leigh MD 11/01/22 1300 Signed By: 11/01/221331[facility] CenterCT CHE[facility] W CONon 10-24-2022 CT CHEST W CONEXAMINATION: CT CHEST W CON HISTORY: Opacity ; right upper [...] Electronically authenticated by: RIGO WHITTAKER Date: 2022-10-23 22:21[facility] TroyCREATININEon 98-61-0341Iobhjjhvrk [Mass/Vol]1.08 mg/dL Critically high0.55-1.02[facility] HospitalComment on above:Performed By: #### CREA #### [facility] [address] [address] [address] Mchugh ChangEGFR-AF WCNRMJYH30 mL/min/1.81r6Gnsbomscvs low>=60The [facility] HospitalComment on above:Performed By: #### CREA #### [facility] [address] [address] [address] Mchugh ChangEGFR-NON AF ZGJJZSMH30 mL/min/1.14s8Nciispdhzx low>=60The [facility] HospitalComment on above:Performed By: #### CREA #### [facility] [address] [place] [address] Dr. Mchugh ChangCT TSPINE WO CONon 65-40-1358PS TSPINE WO CON Begin Addendum #1 Guidance for the geographic shaped opacity within [...] Scoliotic curvature thoracic spine. 3. No acute abnormality.NormalThe [facility] CONon 87-11-9738DQH LSPINE WO CONEXAMINATION: MRI [facility] CON HISTORY: Lumbar radiculopathy COMPARISON: No relevant [...] Electronically authenticated by: SHERYL SRINIVASAN Date: 2022-09-13 08:21NoElyria Memorial HospitalUS NOLBERTO DOP LEG RTon 81-30-1726JS NOLBERTO DOP LEG RTEXAM: US NOLBERTO DOP LEG RT HISTORY: Edema [...] Electronically authenticated by: BRAD GONZALEZ Date: 2022-08-10 15:05NoElyria Memorial HospitalCBC AUTO DIFFon 26-64-4590AQUS #0.0 103/ulNormal0.0-0.1[facility] HospitalComment on above:Performed By: #### CBC #### [facility] [address] [place] [address] Dr. Lolita AlvaradoBasophils/100 WBC (Bld)0.3 %Normal0.2-2.0[facility] Comment on above:Performed By: #### CBC #### [facility] [address] [address] [address] Lolita Michel #0.0 103/ulNormal0.0-0.7The [facility] HospitalComment on above: Performed By: #### CBC #### [facility] [address] [address] [address] Lolita Montoyaosinophils/100 WBC (Bld)0.3 %Critically low0.9-7.0The [facility] HospitalComment on above:Performed By: #### CBC #### [facility] [address] [place] [address] Dr. Lolita Montoyarythrocyte distribution width (RBC) [Ratio]13.3 %Wlnzzs56.0-15.0 TriHealthment on above:Performed By: #### CBC #### [facility] [address] [place] [address] Dr. Lolita AlvaradoHematocrit (Bld) [Volume fraction]34.6 %Critically low36.0-48.0 The [facility] HospitalComment on above:Performed By: #### CBC #### [facility] [address] [place] [address] Dr. Lolita AlvaradoHemoglobin (Bld) [Mass/Vol]11.4 g/dLCritically low12.0-16.0The [facility] Miamisburgment on above:Performed By: #### CBC #### [facility] [address] [place] [address] Dr. Lolita Macdonald #0.04 10e3/ulCritically high0.00-0.03[facility] Comment on above:Performed By: #### CBC #### [facility] [address] [place] [address] Dr. Lolita Macdonald %1.0 %Critically high0.0-0.5ThGalion HospitalComment on above:Performed By: #### CBC #### [facility] [address] [place] [address] Dr. Lolita JordanH #1.2 103/ulNormal1.2-3.8The [facility] HospitalComment on above:Performed By: #### CBC #### [facility] [address] [place] [address] Dr. Lolita Castellanomphocytes/100 WBC (Bld)30.9 %Vrysmq18.5-60.0The [facility] Miamisburgment on above:Performed By: #### CBC #### [facility] [address] [place] [address] Dr. Lolita DawnUAL DIFF REQNONormalThe [facility]itan HospitalComment on above: Performed By: #### CBC #### [facility] [address] [place] [address] Dr. Lolita Barney (RBC) [Entitic mass]31.0 lgXjhgqe48.7-34.0The [facility] HospitalComment on above:Performed By: #### CBC #### [facility] [address] [place] [address] Dr. Lolita Barney (RBC) [Mass/Vol]32.9 g/vOEmwpfb59.9-35.2The [facility] HospitalComment on above:Performed By: #### CBC #### [facility] [address] [place] [address] Dr. Lolita Barney (RBC) [Entitic vol]94.0 jXDlckqs09.0-99.0The [facility] HospitalComment on above:Performed By: #### CBC #### [facility] [address] [place] [address] Dr. Lolita Wilkes #0.4 103/ulNormal0.3-0.8The [facility] HospitalComment on above:Performed By: #### CBC #### [facility] [address] [place] [address] Dr. Lolita Garciaocytes/100 WBC (Bld)10.6 %Normal1.7-12.0[facility] Comment on above:Performed By: #### CBC #### [facility] [address] [place] [address] Dr. Lolita Reddy #2.2 103/ulNormal1.4-6.5The [facility] HospitalComment on above:Performed By: #### CBC #### [facility] [address] [place] [address] Dr. Lolita Thurstonutrophils/100 WBC (Bld)56.9 %Vrlwtf10.0-75.0The [facility] HospitalComment on above:Performed By: #### CBC #### [facility] [address] [place] [address] Dr. Lolita Cooklet mean volume (Bld) [Entitic vol]8.1 fLCritically low 9.5-13.5The [facility] HospitalComment on above:Performed By: #### CBC #### [facility] [address] [place] [address] Dr. Lolita AlvaradoPLT226 103/gyWtwqyf643-188Frz [facility] HospitalComment on above: Performed By: #### CBC #### [facility] [address] [place] [address] Dr. Lolita AlvaradoRBC3.68 106/ulCritically low4.20-5.40The [facility] HospitalComment on above:Performed By: #### CBC #### [facility] [address] [place] [address] Dr. Lolita AlvaradoWBC3.9 103/ulCritically low4.0-11.0The [facility] Miamisburgment on above:Performed By: #### CBC #### [facility] [address] [place] [address] Dr. Lolita Arteaga-19 PCR (CVDTBH)on 62-83-1660TLQK-CoV-2 (COVID-19) RNA EDWIN+probe Ql (Unsp spec)DetectedCritically abnormalNOT DETECTEDThe [facility] on above:Result Comment: This test is not yet approved or cleared by the [place] FDA. When there are no FDA-approved or cleared tests available, and other criteria are met, FDA can make tests available under an emergency access mechanism called an Emergency Use Authorization (EUA). The EUA for this test is supported by the Director Presales of Health and Human Service's (HHS's) declaration [...] no longer be used). Performed By: #### CBC #### [facility] [address] [place] [address] Dr. Lolita AlmarazC AUTO DIFFon 92-39-5316LYQV #0.0 103/ulNormal0.0-0.1The [facility] HospitalComment on above:Performed By: #### CBC #### [facility] [address] [place] [address] Dr. Lolita AlvaradoBasophils/100 WBC (Bld)0.4 %Normal0.2-2.0The [facility] on above:Performed By: #### CBC #### [facility] [address] [place] [address] Dr. Lolita Michel #0.0 103/ulNormal0.0-0.7The [facility] HospitalComment on above: Performed By: #### CBC #### [facility] [address] [place] [address] Dr. Lolita Montoyaosinophils/100 WBC (Bld)0.2 %Critically low0.9-7.0The [facility] HospitalComment on above:Performed By: #### CBC #### [facility] [address] [place] [address] Dr. Lolita Montoyarythrocyte distribution width (RBC) [Ratio]12.8 %Kriuxu77.0-15.0 [facility]Healthment on above:Performed By: #### CBC #### [facility] [address] [place] [address] Dr. Lolita AlvaradoHematocrit (Bld) [Volume fraction]30.1 %Critically low36.0-48.0 [facility] on above:Performed By: #### CBC #### [facility] [address] [place] [address] Dr. Lolita AlvaradoHemoglobin (Bld) [Mass/Vol]10.3 g/dLCritically low12.0-16.0The [facility] HospitalComment on above:Performed By: #### CBC #### [facility] [address] [place] [address] Dr. Lolita Macdonald #0.02 10e3/ulNormal0.00-0.03The [facility] HospitalComment on above:Performed By: #### CBC #### [facility] [address] [place] [address] Dr. Lolita Macdonald %0.4 %Normal0.0-0.5The [facility] HospitalComment on above: Performed By: #### CBC #### [facility] [address] [address] [address] Lolita Shell #0.7 103/ulCritically low1.2-3.8[facility] Comment on above:Performed By: #### CBC #### [facility] [address] [place] [address] Dr. Lolita Jordanhocytes/100 WBC (Bld)14.9 %Critically low20.5-60.0The [facility] HospitalComment on above:Performed By: #### CBC #### [facility] [address] [place] [address] Dr. Lolita Youssef DIFF REQNONormalThe [facility] HospitalComment on above: Performed By: #### CBC #### [facility] [address] [place] [address] Dr. Lolita Otoole (RBC) [Entitic mass]33.6 caKknwcw63.7-34.0The [facility] HospitalComment on above:Performed By: #### CBC #### [facility] [address] [place] [address] Dr. Lolita Barney (RBC) [Mass/Vol]34.2 g/wGCluufa76.9-35.2The [facility] HospitalComment on above:Performed By: #### CBC #### [facility] [address] [place] [address] Dr. Lolita Simmons (RBC) [Entitic vol]98.0 gUMsdqun75.0-99.0The [facility] HospitalComment on above:Performed By: #### CBC #### [facility] [address] [place] [address] Dr. Lolita Wilkes #0.4 103/ulNormal0.3-0.8The [facility] HospitalComment on above:Performed By: #### CBC #### [facility] [address] [place] [address] Dr. Lolita Garciaocytes/100 WBC (Bld)9.0 %Normal1.7-12.0The [facility] Comment on above:Performed By: #### CBC #### [facility] [address] [place] [address] Dr. Lolita Reddy #3.4 103/ulNormal1.4-6.5The [facility] HospitalComment on above:Performed By: #### CBC #### [facility] [address] [place] [address] Dr. Lolita Thurstonutrophils/100 WBC (Bld)75.1 %Critically high43.0-75.0The [facility] HospitalComment on above:Performed By: #### CBC #### [facility] [address] [place] [address] Dr. Lolita Holcomb mean volume (Bld) [Entitic vol]8.5 fLCritically low 9.5-13.5The [facility] HospitalComment on above:Performed By: #### CBC #### [facility] [address] [place] [address] Dr. Lolita ChaudharyT229 103/ueKczqfo966-039Lsn [facility] HospitalComment on above: Performed By: #### CBC #### [facility] [address] [place] [address] Dr. Lolita BanksC3.07 106/ulCritically low4.20-5.40The [facility] HospitalComment on above:Performed By: #### CBC #### [facility] [address] [place] [address] Dr. Lolita AlvaradoWBC4.6 103/ulNormal4.0-11.0The [facility] HospitalComment on above: Performed By: #### CBC #### [facility] [address] [place] [address] Dr. Lolita Ross AUTO DIFFon 50-03-0431PFGO #0.0 103/ulNormal0.0-0.1The [facility] HospitalComment on above:Performed By: #### CBC #### [facility] [address] [place] [address] Dr. Yilan ChangBasophils/100 WBC (Bld)0.7 %Normal0.2-2.0The [facility] Comment on above:Performed By: #### CBC #### [facility] [address] [place] [address] Dr. Lolita Michel #0.2 103/ulNormal0.0-0.7The [facility] HospitalComment on above: Performed By: #### CBC #### [facility] [address] [place] [address] Dr. Lolita Montoyaosinophils/100 WBC (Bld)3.7 %Normal0.9-7.0The [facility] Comment on above:Performed By: #### CBC #### [facility] [address] [place] [address] Dr. Lolita Montoyarythrocyte distribution width (RBC) [Ratio]13.0 %Xvcbtu03.0-15.0 The [facility]itan HospitalComment on above:Performed By: #### CBC #### [facility] [address] [place] [address] Dr. Lolita AlvaradoHematocrit (Bld) [Volume fraction]32.2 %Critically low36.0-48.0 The [facility]aritan HospitalComment on above:Performed By: #### CBC #### [facility] [address] [place] [address] Dr. Lolita AlvaradoHemoglobin (Bld) [Mass/Vol]10.6 g/dLCritically low12.0-16.0The [facility] HospitalComment on above:Performed By: #### CBC #### [facility] [address] [place] [address] Dr. Lolita Macdonald #0.02 10e3/ulNormal0.00-0.03The [facility] HospitalComment on above:Performed By: #### CBC #### [facility] [address] [place] [address] Dr. Lolita Macdonald %0.5 %Normal0.0-0.5The [facility] HospitalComment on above: Performed By: #### CBC #### [facility] [address] [address] [address] Lolita Shell #1.4 103/ulNormal1.2-3.8The [facility]itan HospitalComment on above:Performed By: #### CBC #### [facility] [address] [place] [address] Dr. Lolita Castellanomphocytes/100 WBC (Bld)32.4 %Nsvmvq35.5-60.0The [facility] HospitalComment on above:Performed By: #### CBC #### [facility] [address] [place] [address] Dr. Lolita DawnUAL DIFF REQNONormalThe [facility] Samaritan HospitalComment on above: Performed By: #### CBC #### [facility] [address] [place] [address] Dr. Lolita Barney (RBC) [Entitic mass]32.1 mkKjnwke87.7-34.0The [facility] HospitalComment on above:Performed By: #### CBC #### [facility] [address] [place] [address] Dr. Lolita Barney (RBC) [Mass/Vol]32.9 g/hKRkycgs00.9-35.2The [facility] HospitalComment on above:Performed By: #### CBC #### [facility] [address] [place] [address] Dr. Lolita Barney (RBC) [Entitic vol]97.6 yWJjivzt39.0-99.0[facility] HospitalComdetroit [facility] hospital on above:Performed By: #### CBC #### [facility] [address] [place] [address] Dr. Lolita Wilkes #0.6 103/ulNormal0.3-0.8The [facility] HospitalComment on above:Performed By: #### CBC #### [facility] [address] [place] [address] Dr. Lolita Garciaocytes/100 WBC (Bld)14.0 %Critically high1.7-12.0The [facility] HospitalComment on above:Performed By: #### CBC #### [facility] [address] [place] [address] Dr. Lolita Reddy #2.1 103/ulNormal1.4-6.5The [facility] HospitalComment on above:Performed By: #### CBC #### [facility] [address] [place] [address] Dr. Lolita Thurstonutrophils/100 WBC (Bld)48.7 %Igdgzt71.0-75.0The [facility] HospitalComment on above:Performed By: #### CBC #### [facility] [address] [place] [address] Dr. Lolita AlvaradoPlatelet mean volume (Bld) [Entitic vol]8.2 fLCritically low 9.5-13.5The [facility] HospitalComment on above:Performed By: #### CBC #### [facility] [address] [place] [address] Dr. Lolita AlvaradoPLT216 103/qtXpiruu738-831Qjt [facility] HospitalComment on above: Performed By: #### CBC #### [facility] [address] [place] [address] Dr. Lolita AlvaradoRBC3.30 106/ulCritically low4.20-5.40[facility] on above:Performed By: #### CBC #### [facility] [address] [place] [address] Dr. Lolita AlvaradoWBC4.3 103/ulNormal4.0-11.0The [facility] HospitalComdetroit [facility] hospital on above: Performed By: #### CBC #### [facility] [address] [place] [address] Dr. Lolita AlvaradoOCC BLD IMMUNOASSAYon 22-71-6043RSASJB BLOODPositiveAbnormal NEGATIVEThe [facility] on above:Performed By: #### OBIA #### [facility] [address] [place] [address] Dr. Lolita AlvaradoPROTIMEon 09-23-4089NDL Coag (PPP) [Relative time]1.62 {INR} NormalThe Good Samaritan HospitalComment on above:Performed By: #### PT, PTT #### [facility] [address] [place] [address] Dr. Lolita DacostaR GUIDELINESSEE BELOWNormalThe Good Samaritan HospitalComment on above:Result Comment: DESIRED INR: 2.0 - 3.0 CONDITIONS NOT LISTED BELOW 2.5 - 3.5 FOR PROSTHETIC HEART VALVE REPLACEMENT 2.5 - 3.5 RECURRENT THROMBOSIS Performed By: #### PT, PTT #### [facility] [address] [place] [address] Dr. Lolita AlvaradoPT Coag (PPP) [Time]17.0 sCritically high9.0-11.6The [facility]aritan HospitalComment on above:Performed By: #### PT, PTT #### [facility] [address] [place] [address] Dr. Lolita DavisonTon 04-96-9815nBLD Coag (Bld) [Time]40.2 sCritically high 22.3-36.2The [facility]itan HospitalComment on above:Performed By: #### PT, PTT #### [facility] [address] [place] [address] Dr. Lolita AlvaradoCovid-19 PCR (CVDTB)on 72-85-2028NRNY-CoV-2 (COVID-19) RNA EDWIN+probe Ql (Unsp spec)Not detectedNormalNOT DETECTEDHighland District Hospital Comment on above:Result Comment: This test is not yet approved or cleared by the [place] FDA. When there are no FDA-approved or cleared tests available, and other criteria are met, FDA can make tests available under an emergency access mechanism called an Emergency Use Authorization (EUA). The EUA for this test is supported by the Director Presales of Health and Human Service's (HHS's) declaration that circumstances exist to justify the emergency use of in vitro diagnostics for the detection and/or diagnosis of the virus that causes COVID- 19. This EUA will remain in effect (meaning [...] of clinical signs and symptoms consistent with SARS-CoV-2.Performed By: #### CVDTBH #### [facility] [address] [place] [address] Dr. Lolita Gonzalez NOLBERTO DOP LEG LTon 46-46-1166EA NOLBERTO DOP LEG LTEXAMINATION: US NOLBERTO DOP LEG LT HISTORY: Acute [...] Electronically authenticated by: SHERYL SRINIVASAN Date: 2022-05-25 16:09[facility] TroyUS NOLBERTO DOP LEG LTon 39-71-0264ZT NOLBERTO DOP LEG LTEXAM: US NOLBERTO DOP LEG LT HISTORY: Localized swelling of left lower leg, previous ablation of the greater saphenous vein and small saphenous vein. COMPARISON: None TECHNIQUE: Ultrasonography of the left lower extremity is performed from the groin to the ankle. FINDINGS: One of the 2 posterior tibial veins is occluded, and noncompressible at the knee and mid calf. There may be a waste disposal leakage tester extending to the region of the thrombosis. The remaining deep venous structures are patent. 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 This finding was placed in the stat call folder. 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 Electronically authenticated by: CHUCK TATUM Date: 2022-04-28 19:31[facility] TroyPOINT OF CARE GLUCOSEon 87-97-5947Qgxyphh [Mass/Vol]86 mg/dL Txpfuk84-043EmaHighland District HospitalComment on above:Performed By: #### CBC #### [facility] [address] [address] [address] Lolita Alvarado Vital Signs Date TimeVital SignValuePerforming WhuosegygDfxtcjdm16-74-1201 11:36-0500Body erczgn952 cmJoaquinandrew Brown DPM Work Phone: [phone] [place], [place] [address]Wunecdfmjy78-38-2661 11:36-0500Body mass index (BMI) [Ratio]21.08 kg/f7Kmgqvgis Brown DPM Work Phone: [phone] [place], [place] [address]Mglzkanjnz63-88-0944 11:36-0500Body nmwrti10.98 kgNicholas Brown DPM Work Phone: 1(261)[facility] [place], [place] [address]Guesjvrgvo52-13-5202 11:36-0500Respiratory rate18 /minNicholas Brown DPM Work Phone: [phone] [place], [place] [address]953908-14-2025 11:27-0400Body cm Silvino Brown DPM Work Phone: 1(215)[facility] [place], [place] [address]Utavwjgeoe56-22-7617 11:27-0400Body mass index (BMI) [Ratio]21.08 kg/k0Douwqhsa Brown DPM Work Phone: [phone])[address] [place], [place] 7953908-14-2025 11:27-0400Body lmrdfo17.98 kgNicholas Brown DPM Work Phone: [phone])[address] [place], [place] [address]953908-14-2025 11:27-0400Respiratory rate19 /minNicholas Brown DPM Work Phone: 1(949)[facility] [place], [place] [address]Ipqzkatoef94-44-0597 11:06-0400Body bbdpty342 cm Silvino Carey DPM Work Phone: 1(399)[facility] [place], [place] [address]Ssqyhpxtot78-21-0407 11:06-0400Body mass index (BMI) [Ratio]21.08 kg/i7Hemxdtzp Brown DPM Work Phone: 1(906)[facility] [place], [place] [address]Aplxbbvbuh80-87-1298 11:06-0400Body abhnuk09.98 kgNicholas Brown DPM Work Phone: [phone] [place], [place] [address]Hahredhmhe62-71-3011 11:06-0400Respiratory rate18 /minNicholas Brown DPM Work Phone: [phone] [place], [place] [address]Naskuudomg84-58-1078 08:55-0400Body cm Silvino Carey DPM Work Phone: [facility] CareKmlhqioicl12-02-3685 08:55-0400Body mass index (BMI) [Ratio]21.08 kg/a8QupsikpnSilvino Carey DPM Work Phone: [facility] CareDkvxnfqnnz15-98-9932 08:55-0400Body gkeeli56.98 kgSilvino Carey DPM Work Phone: [phone] [place], [place] [address]Xpmklqwmfb32-84-3267 08:55-0400Respiratory rate18 /minNicandrew Carey DPM Work Phone: 1(481)[facility] [place], [place] [address]Eygsiyixui17-91-0959 08:27-0500Body hkfipq459 cm Silvino Carey DPM Work Phone: [phone] [place], [place] [address]Raidmskumz34-76-8361 08:27-0500Body mass index (BMI) [Ratio]21.08 kg/y4LvhvamkuSilvino Carey DPM Work Phone: 1(314)[facility] [place], [place] [address]Qvtxppkdhq22-69-5517 08:27-0500Body .98 kgSilvino Carey DPM Work Phone: 1(855)611-[address] [place], [place] [address]Rfdrzibwmf16-96-5732 08:27-0500Respiratory rate16 /minSilvino Carey DPM Work Phone: [phone])885-[address] [place], [place] [address]Kewvlphkte71-45-2517 08:19-0400Body gjhpop967 cm Silvino Carey DPM Work Phone: [phone] [place], [place] [address]Nugjnevoqd83-00-5924 08:19-0400Body mass index (BMI) [Ratio]21.08 kg/s0TtkbewyiSilvino Carey DPM Work Phone: [phone] [place], [place] [address]Pxehagjtht46-97-7769 08:19-0400Body pqegbw35.98 kgSilvino Carey DPM Work Phone: 1(275)[facility] [place], [place] [address]Xfdrykzzym82-14-5936 08:19-0400Diastolic blood ovvzspfz08 mm[Hg]Silvino Carey DPM Work Phone: 1(167)4-[address] [place], [place] [address]Voeltxmfzh00-64-1488 08:19-0400Heart rate82 /min Silvino Carey DPM Work Phone: [phone] [place], [place] [address]Okfxumyogt71-33-4514 08:19-0400Systolic blood rpwxraeo398 mm[Hg]Silvino Carey DPM Work Phone: [facility] CareSmsupwmqoz09-13-0991 08:26-0400Body cytngi755 cm Silvino Carey DPM Work Phone: [phone] [place], [place] [address]Ntpsjnplpm78-29-9838 08:26-0400Body mass index (BMI) [Ratio]21.08 kg/p0VirjdygxSilvino Carey DPM Work Phone: [phone])864-[address] [place], [place] [address]Ozxerditkm26-80-5558 08:26-0400Body wivhzn92.98 kgSilvino Carey DPM Work Phone: [phone] [place], [place] [address]Ouwrmextim04-58-4841 08:26-0400Diastolic blood mm[Hg]Silvino Adan DPM Work Phone: [phone])294-[address] [place], [place] [address]Lugsychnox89-93-4365 08:26-0400Heart rate77 /min Silvino Carey DPM Work Phone: [facility] CareMiscxdhqeu52-02-7843 08:26-0400Systolic blood buxehdvl388 mm[Hg]Silvino Carey DPM Work Phone: [phone] [place], [place] [address]Neekwryfgr01-20-5695 12:28-0400Blood Pressure LocationMohamad Mouchli 172-6801Jcbkhc-JohudBrown Memorial Hospital06-10-2024 12:28-0400Diastolic blood avghivaf81 mm[Hg]Mohamad Ibrahimali 015-5183Dmcdue-HntfeBrown Memorial Hospital06-10-2024 12:28-0400Heart rate68 /minMohamad Mouchli 424-0469Bnjeet-JdthuBrown Memorial Hospital06-10-2024 12:28-0400Respiratory rate16 /minMohamad Mouchli [phone]-WltneBrown Memorial Hospital06-10-2024 12:28-0400Systolic blood abnjbxma450 mm[Hg]Mohamad Mouchli 136-5300Qehanr-Fwbko[address] [place], [place] 1098403-20-2024 14:05-0400Diastolic blood ipjskzyb00 mm[Hg]Mohamad Mouchli 474-0490Sntwts-Tfzex[address] [place], [place] 1098403-20-2024 14:05-0400Mean blood slxuiqvz51 mm[Hg]Mohamad Mouchli 482-8569Ozufnw-Gtaye[address] [place], [place] 1098403-20-2024 14:05-0400Systolic blood rqxnjuwn928 mm[Hg]Mohamad Mouchli 482-0290Cbgmwv-Jssno[address] [place], [place] 1098403-20-2024 14:02-0400Blood Pressure LocationMohamad Mouchli [phone]-Yahyo[address] [place], [place] 1098403-20-2024 14:02-0400Diastolic blood srdvipnk22 mm[Hg]Mohamad Mouchli [phone]-Lcvth[address] [place], [place] 1098403-20-2024 14:02-0400Heart rate84 /minMohamad Mouchli 478-3337Kmqtse-Vgste[address] [place], [place] 1098403-20-2024 14:02-0400Respiratory rate16 /minMohamad Mouchli 520-8853Antfoi-Jxfck[address] [place], [place] [address]98403-20-2024 14:02-0400Systolic blood mm[Hg]Mohamad Mouchli [phone]-Lusdi[address] [place] [address] [facility] Encounters Encounter DateEncounter TypeCare ProviderFacilityStart: 09-10-2025 End: 87-40-3546Zcvkrrkeny Carey DPM Work Phone: NOZ[facility] CI PODIATRYStart: 09-10-2025 End: 59-96-1357Nxjfoylovely Carey DPM Work Phone: noms CI PODIATRYStart: 09-10-2025 End: 71-68-0730Pepdej outpatient visit 15 minutesSilvino Carey DPM Work Phone: noms CI PODIATRYComment on above:Xerosis cutis (Primary Dx); Verruca plantaris; Foot pain, right; Pain due to onychomycosis of toenails of both feet; Acquired deformity of right toeStart: 09-10-2025 End: 30-40-8291irunmzflbuTGAMLGYG A BROWNNot AvailableStart: 09-01-2025 End: 15-81-7808Ydqjni Delvis Horne MD Work Phone: noms Kr[facility]y DermatologyStart: 09-01-2025 End: 66-52-9525Bbbolllovely Horne MD Work Phone: noms [facility] DermatologyStart: 09-01-2025 End: 90-98-6305Lmccrt outpatient visit 15 minutesIsai Horne MD Work Phone: noms Krissy DermatologyComment on above:Seborrheic keratosis (Primary Dx); Seborrheic keratosis, inflamed; Actinic keratosis; Lentigines; Neoplasm of unspecified behavior of bone, soft tissue, and skinStart: 09-01-2025 End: 10-53-0960syppqqpcdmLZRUHAnsley Levine AvailableStart: 06-18-2025 End: 73-67-7110Ksgrvi flowsAlden Carey DPM Work Phone: noms CI PODIATRYStart: 06-18-2025 End: 89-87-8124Vqrxmj flowsAlden Carey DPM Work Phone: noms CI PODIATRYStart: 06-18-2025 End: 76-39-9983Qsqvwkl encounter procedureSilvino Carey DPM Work Phone: noms CI PODIATRYComment on above:Verruca plantaris (Primary Dx); Foot pain, right; Acquired deformity of right toe; Pain due to onychomycosis of toenails of both feetStart: 06-18-2025 End: 00-63-2066akgweysockASUPORNH A BROWNNot AvailableStart: 04-02-2025 End: 88-29-8527Ewfobh flowsheetNicholas A Brown DPM Work Phone: noms CI PODIATRYStart: 04-02-2025 End: 78-03-4855Girzqd flowsheetNicholas A Brown DPM Work Phone: noms CI PODIATRYStart: 04-02-2025 End: 75-79-0082Xwziomr encounter procedureNicholas A Brown DPM Work Phone: noms CI PODIATRYComment on above:Pain due to onychomycosis of toenails of both feet (Primary Dx); Verruca plantaris; Foot pain, right; Acquired deformity of right toeStart: 04-02-2025 End: 75-64-6903rdjglamketVPFWKKIR A BROWNNot AvailableStart: 02-26-2025 End: 56-22-3537Hfihaj flowsheetNicholas A Brown DPM Work Phone: noms CI PODIATRYStart: 02-26-2025 End: 60-20-7783Tnvyjx flowsheetNicholas A Brown DPM Work Phone: noms CI PODIATRYStart: 02-26-2025 End: 36-46-6507Vqxfwm follow up visit related to original pxNicholas A Brown DPM Work Phone: noms CI PODIATRYComment on above:Verruca plantaris (Primary Dx); Foot pain, right; Pain due to onychomycosis of toenails of both feet; Acquired deformity of right toeStart: 02-26-2025 End: 56-27-1240txxqrhpgydGDSWATCM A BROWNNot AvailableStart: 02-03-2025 End: 56-84-4093Jhtwbg Delvis Horne MD Work Phone: [facility]oms [facility] DERMStart: 02-03-2025 End: 83-02-1999Xrlrdx flowsheetEmkeshia Horne MD Work Phone: NOFU SWS DERMStart: 02-03-2025 End: 92-50-3070Schpkdx encounter procedureEmily Yessica Horne MD Work Phone: noms SWS DERMComment on above:Actinic keratosis (Primary Dx)Start: 02-03-2025 End: 92-81-8825mosjwdussiHDXLG A PETITTINot AvailableStart: 12-29-2024 End: 23-28-1187Xeiade flowsHebert Barba SACK LIFTER Work Phone: NOL[facility] FB ORTHOPAEDICSStart: 12-29-2024 End: 69-27-1483Bftcqu Laurie Barba S[employer] LIFTER Work Phone: NOWN FB ORTHOPAEDICSStart: 12-29-2024 End: 32-20-4578Qfciqg outpatient visit 15 minutesGranmere Barba SACK LIFTER Work Phone: noms FB ORTHOPAEDICSComment on above:Nondisplaced fracture of shaft of fifth metacarpal bone, right hand, subsequent encounter for fracture with routine healing (Primary Dx); Right hand painStart: 12-29-2024 End: 25-73-5652ybpumhrjetQTRWF T OLSENNot AvailableStart: 12-16-2024 End: 50-44-8358Srbkgv flowsheetEmkeshia Horne MD Work Phone: NOLS SWS DERMStart: 12-16-2024 End: 35-24-8581Gfnslv flowsheetEmily Yessica Horne MD Work Phone: NOYU SWS DERMStart: 12-16-2024 End: 15-50-9113Aqnhjzmu Result EncounterEmily Yessica Horne MD Work Phone: NOBQ External Department UnsolicitedStart: 12-16-2024 End: 10-76-7486Aznupvq encounter procedureEmily Yessica Horne MD Work Phone: NOSR SWS DERMComment on above:Neoplasm of unspecified behavior of bone, soft tissue, and skin (Primary Dx)Start: 12-16-2024 End: 65-01-2848afcqxgjhgnVHFKO A PETSandiet AvailableStart: 11-20-2024 End: 86-00-4035Xmgjdv Triston Carey DPM Work Phone: noms CI PODIATRYStart: 11-20-2024 End: 11-95-8380Uwwuzn Triston Carey DPM Work Phone: noms CI PODIATRYStart: 11-20-2024 End: 26-34-5762Cxtucb outpatient visit 15 minutesSilvino Carey DPM Work Phone: noms CI PODIATRYComment on above:Acquired deformity of right toe (Primary Dx); Pain due to onychomycosis of toenails of both feet; Verruca plantaris; Foot pain, rightStart: 11-20-2024 End: 19-96-5046rqjzeuftfgIQUXLLKV A BROWNNot AvailableStart: 10-06-2024 End: 24-58-6011Mhksdg Laurie Barba NP Work Phone: [facility] FB ORTHOPAEDICSStart: 10-06-2024 End: 10-65-4735Ppdkax Laurie Barba NP Work Phone: N[facility] FB ORTHOPAEDICSStart: 10-06-2024 End: 74-41-7740Zsxlgh outpatient visit 10 minutesCalixto Barba NP Work Phone: NOM[facility] FB ORTHOPAEDICSComment on above:Nondisplaced fracture of shaft of fifth metacarpal bone, right hand, subsequent encounter for fracture with routine healingStart: 10-06-2024 End: 31-57-2335tmpowgngptUZNKS T OLSENNot AvailableStart: 09-09-2024 End: 97-39-5180Wqdezf Laurie Barba NP Work Phone: [facility] CI ORTHOPAEDICSStart: 09-09-2024 End: 18-20-8995Hpxwfr Laurie Barba NP Work Phone: noms CI ORTHOPAEDICSStart: 09-09-2024 End: 94-14-0370Eaxzhx follow up visit related to original Cora Barba SACK LIFTER Work Phone: noms CI ORTHOPAEDICSComment on above:Nondisplaced fracture of shaft of fifth metacarpal bone, right hand, subsequent encounter for fracture with routine healingStart: 09-04-2024 End: 36-82-4307Ppezwx flowsAlden Juan Brown DPM Work Phone: noms CI PODIATRYStart: 09-04-2024 End: 63-75-4077Wiwqal flowsAlden Juan Brown DPM Work Phone: noms CI PODIATRYStart: 09-04-2024 End: 70-19-3096Msxicv outpatient visit 15 minutesNicholjuvencio Juan Brown DPM Work Phone: noms CI PODIATRYComment on above:Acquired deformity of right toe (Primary Dx); Verruca plantaris; Foot pain, right; Pain due to onychomycosis of toenails of both feetStart: 08-19-2024 End: 31-77-7811Lahigo flowsbartJaviermere Mere Carlos Alberto SACK LIFTER Work Phone: noms CI ORTHOPAEDICSStart: 08-19-2024 End: 03-12-9641Pkokon Laurie Mere Carlos Alberto S[employer] LIFTER Work Phone: noms CI ORTHOPAEDICSStart: 08-19-2024 End: 38-05-4252Cgnszo follow up visit related to original Cora Granado Barba S[employer] LIFTER Work Phone: noms CI ORTHOPAEDICSComment on above:Nondisplaced fracture of shaft of fifth metacarpal bone, right hand, subsequent encounter for fracture with routine healingStart: 08-14-2024 End: 55-14-3341Cahwav Delvis Horne MD Work Phone: noms [facility] DERMStart: 08-14-2024 End: 64-77-3408Mywbxc Delvis Horne MD Work Phone: noms SWS DERMStart: 08-14-2024 End: 33-63-6762Rtjdsw outpatient visit 15 minutesEmkeshia Horne MD Work Phone: noms SWS DERMComment on above:Other atopic dermatitis (Primary Dx); History of SCC (squamous cell carcinoma) of skin; Actinic keratosis; Seborrheic keratosis, inflamed; Seborrheic keratosisStart: 08-13-2024 End: 92-96-6389Clkqxz flowsheetJr. Job Aguilar DO Work Phone: noms [facility] ORTHOStart: 08-13-2024 End: 66-36-1176Prqvje flowsheetJr. Job [facility]bag[facility] DO Work Phone: noms [facility] ORTHOStart: 08-13-2024 End: 09-49-1186Nabmut outpatient visit 25 minutesJr. Job Aguilar DO Work Phone: noms [facility] ORTHOComment on above:History of left knee replacement (Primary Dx); Acute pain of left kneeStart: 07-22-2024 End: 84-12-8272Vlmiki Laurie Barba NP Work Phone: NOBX CI ORTHOPAEDICSStart: 07-22-2024 End: 84-45-5921Wuuthq Laurie Barba NP Work Phone: [facility] CI ORTHOPAEDICSStart: 07-22-2024 End: 94-09-9664Itxxtc follow up visit related to original Cora Barba NP Work Phone: NOTN CI ORTHOPAEDICSComment on above:Nondisplaced fracture of shaft of fifth metacarpal bone, right hand, subsequent encounter for fracture with routine healingStart: 03-63-9356fsldjcnqwbQzhrlkx A. Mouchli Facility:[facility] DHStart: 07-03-2024 End: 65-77-0063Vvgauk flowsHebert Barba SACK LIFTER Work Phone: NOAH FB ORTHOPAEDICSStart: 07-03-2024 End: 56-49-8627Nrfgpq flowsHebert Barba SACK LIFTER Work Phone: noms FB ORTHOPAEDICSStart: 07-03-2024 End: 28-63-7094Rsblba outpatient visit 15 minutesCalixto Barba NP Work Phone: noms FB ORTHOPAEDICSComment on above:Nondisplaced fracture of shaft of fifth metacarpal bone, right hand, initial encounter for closed fracture (Primary Dx); Right hand painStart: 06-26-2024 End: 08-32-0248Hgddnk flowsAlden Carey DPM Work Phone: noms CI PODIATRYStart: 06-26-2024 End: 70-70-2727Rvpqmm Triston Juan Brown DPM Work Phone: noms CI PODIATRYStart: 06-26-2024 End: 17-92-2265Azslznr encounter procedureNicandrew Carey DPM Work Phone: noms CI PODIATRYComment on above:Acquired deformity of right toe (Primary Dx); Verruca plantaris; Foot pain, right; Onychomycosis; Toe pain, bilateralStart: 04-14-2024 End: 97-12-8416nxnhitpgesLfatswb A. MouchliFacility:[facility] DHStart: 04-14-2024 End: 78-93-3061Upxiodn encounter procedureMohamad A. Mouchli [phone]-GzvzdW[facility] Start: 01-23-2024 End: 95-46-6602rdhlwqvfwlQsyhcez A. MouchliFacility:[facility] DHStart: 01-23-2024 End: 42-72-6925Pbytzxh encounter procedureMohamad A. Mouchli [phone]-KwwunWexner Medical Center [facility] Start: 47-51-3844hglvrcsvewVvmbdax MouchliFacility:[place] SanduskyStart: 81-48-1645qyjsgmgtgrOdgdyus MouchliFacility:[facility] DHStart: 12-14-2023 End: 57-21-0064Kverga follow up visit related to original pxMajos Reid Zackery MARIE Work Phone: NOMS CI ORTHOPAEDICSComment on above:S/P right knee arthroscopy (Primary Dx)Start: 10-11-2023 End: 98-07-9851Ftzcsnmpmx and management of inpatientSfatuma Garcia [facility]tart: 58-47-5488fxtxvizejzMEVHWSO HALKER .Facility: Start: 39-19-4216himcgblskhQP SANTIAGO PATRICIO .Facility:I4Buqld: 03-16-2023 End: 60-15-2075wcwzokotakDFSYJRJ HALKER .Facility:C7Hhxmh: 12-23-2022 End: 34-62-2973kjppqdhshdWD SANTIAGO PATRICIO .Facility:J4Vltgh: 83-98-9812bgstyywepu STARR ARROYO .Facility:H4Zviel: 11-01-2022 End: 11-72-2858ravnmqlfnvYcbkdft M HoyFacility:[facility] Start: 11-01-2022 End: 37-78-1820tbdnqcealwJZ Santiago M Hoy Work Phone: [facility] Work Phone: Start: 11-01-2022 End: 05-87-6124Piioaef encounter procedureMD Asntiago Hoy Work Phone: [facility] Work Phone: Start: 10-23-2022 End: 21-17-5091byemrefioaXD SANTIAGO HOY .Facility:T7Qpkyz: 10-16-2022 End: 02-37-1722stfdgwkzjsSZFBTBU BLADESFacility:H0Gegui: 10-11-2022 End: 66-51-9838tywyfhixeuWrjxopa Blades Other Nort NONO Other start: 46-86-3664Dpimpoklz encounterDelilli BladesFPG [facility] NeurosurgeryStart: 09-12-2022 End: 12-74-4815ljgniouowfHI SANTIAGO HOY .Facility:Y0Hkaux: 08-29-2022 End: 47-16-5857Nypnfsj encounter procedureMichael R NILL General Surgery Nill/Said Francesca Start: 08-22-2022 End: 69-12-4822kxauzzwwltSUDRX D [facility]X8Uqqco: 08-16-2022 End: 36-90-7544hcngaokpwkMD ARIE ZUNIGA .Facility:G2Dfjff: 19-82-4364rqylyfgoxk DR ARIE ZUNIGA .Facility:E5Cdvuk: 08-10-2022 End: 05-88-6825xdtgnyvquyNP SANTIAGO PATRICIO .Facility:T2Egoam: 69-60-1603Pilofnlcf for other preprocedural examinationDR ARIE ZUNIGA .[facility]: 08-08-2022 End: 74-03-4473itzprbpkzaLG ARIE ZUNIGA .Facility:I5Xvqwq: 08-08-2022 End: 45-74-3518Eyluemtbp for other preprocedural examinationDR ARIE ZUNIGA . Facility:V4Waptj: 08-02-2022 End: 65-96-3855knjqmyapmqYQ ARIE ZUNIGA .Facility:Y0Tacdq: 07-31-2022 End: 01-86-2000yprisepbkbSG IVANIA GARCIA .Facility:U9Hjfuy: 07-27-2022 ambulatoryDR SANTIAGO HOY .Facility:G6Wroll: 07-27-2022 End: 49-04-9010smzmeydemwXJRD ARROYO .Facility:B3Khshd: 07-04-2022 End: 12-04-7777vjffpdddgjOT SANTIAGO HOY .Facility:E8Vbbzf: 06-02-2022 End: 08-22-3858hrqaxfzoruGY SANTIAGO HOY .Facility:T9Gvizy: 06-01-2022 End: 33-51-7223wakmuryjigUYVB ARROYO .Facility:N1Yzskx: 05-25-2022 End: 30-78-4725gjgprzcwysJJ SANTIAGO HOY .Facility:A5Xiske: 05-25-2022 End: 55-01-1632dgyinkvjmvAZ SANTIAGO HOY .Facility:V1Dmufm: 04-28-2022 End: 62-37-2767xmnwtaafksFTXZ DINA .Facility:S5Qvrsb: 04-25-2022 End: 65-40-5228riclblfsbxNE IVANIA GARCIA .Facility:H1 Procedures DateProcedureProcedure DetailPerforming ClinicianStart: 09-01-2025 End: 47-33-2867XRBXRGLQYKH SKIN LESIONEmily Yessica Horne MD Work Phone: Start: 84-70-2801EENO / NAIL BIOPSYEmily Yessica Horne MD Work Phone: Start: 15-30-2681RQURRENCSKI SKIN LESIONEmily Yessica Horne MD Work Phone: Start: 03-16-5079Dttpl hand minimum 3 viewsCalixto Barba SACK LIFTER Work Phone: Start: 24-22-9274SPNX / NAIL BIOPSYEmily Yessica Horne MD Work Phone: Start: 90-21-9068Ctndm i surg pathology gross examination onlyEmily Yessica Horne MD Work Phone: Start: 77-69-9196Qhndd hand minimum 3 viewsCalixto Barba SACK LIFTER Work Phone: Start: 81-14-2003Sogsl hand minimum 3 viewsCalixto Barba SACK LIFTER Work Phone: Start: 38-74-4941Nmygi hand minimum 3 viewsCalixto Barba SACK LIFTER Work Phone: Start: 08-14-2024 End: 34-48-9935LIDJFUYWKFV SKIN LESIONEmily Yessica Horne MD Work Phone: Start: 30-57-1843Xdayfbxjeg examination knee 1/2 views Jr. Job Aguilar DO Work Phone: Start: 83-05-9852Eajis hand minimum 3 viewsCalixto Barba SACK LIFTER Work Phone: Start: 86-25-8071OUMX / SPLINT / FXCalixto Barba SACK LIFTER Work Phone: Start: 22-31-2298Ckcyr hand minimum 3 viewsGrant Mere Barba SACK LIFTER Work Phone: Start: 97-03-1746Iyyialvf emission tomography with computed tomographyMD Santiago Patricio Work Phone: [phone]: 84-10-8793BazmmzwslciAsbzuga NILL Start: 67-78-5283EurmpnivptefhttgjtgqkvysicNvtkxaw NILL Start: 99-88-9816BdintnpkxjoHhlmkdb NILL Start: 71-40-7583NqnobjaasoubmwdmkowwxsssrvCgnewdz NILL Start: 82-46-3207VbcmhnarnmuZgyuxfs NILL Start: 36-06-1419FioqtigercvBgxnjyx NILL AppendectomyMichael NILL Arthroplasty of kneeMichael NILL Arthroscopy of kneeMichael NILL CholecystectomyMichael NILL CystopexyMichael NILL Extraction of cataractMichael NILL Extraction of cataractMichael NILL History of operative procedure on kneeHistory of left knee replacementJr. Job Aguilar DO Work Phone: Knee region structure (body structure)Lynn Pastrana Plan of Treatment DateCare ActivityDetailAuthorStart: 08-31-2026 End: 17-42-7004Dvtafis encounter /27/2026 1:20 PM EDT [facility] [address] [place] [phone] Isai Horne MD [address] [place] [address] [facility] [place] DermatologyStart: 08-11-2026 End: 07-04-5759Wysqugu encounter procedureNOMS SWS ORTHOStart: 09-10-2025 End: 63-87-8756Kakarxq encounter procedureNOMS CI PODIATRYComment on above: Verruca plantaris (Primary Dx); Foot pain, right; Pain due to onychomycosis of toenails of both feet; Acquired deformity of right toeStart: 09-01-2025 End: 46-31-2276Gdylirf encounter procedureNOMS SWS DERMComment on above:Arrived Start: 08-13-2025 End: 70-65-0883Cmglxco encounter jhmwvmzxa72/09/2025 10:45 AM EDT Office Visit [facility] [address] [place] [phone] Isai Horne MD [address] [place] [address] [facility] D[facility]MStart: 22-01-4316HROPT-19 Vaccine ( season)COVID-19 Vaccine ( season)NOMS HealthcareStart: 97-07-1059Jlupdowgw vaccinationNOID HealthcareStart: 06-18-2025 End: 78-86-8198Xshjbfj encounter hkvkpjvle27/14/2025 11:40 AM EDT Procedure Visit [facility] [address] [place] [address] Silvino Caery DPM [address] [facility] [address] [place] [address] Verruca plantaris (Primary Dx); Foot pain, right; Acquired deformity of right toe; Pain due to onychomycosis of toenails of both feetNOMS CI PODIATRYComment on above:Verruca plantaris (Primary Dx); Foot pain, right; Acquired deformity of right toe; Pain due to onychomycosis of toenails of both feetStart: 06-11-2025 End: 07-86-6983Mdbjocm encounter zzgutfvxh43/07/2025 10:30 AM EDT Procedure Visit [facility] [address] [facility] [address] [place] [address] Silvino Carey DPM [address] [address] NOMS PODIATRYStart: 04-02-2025 End: 26-47-1778Jzmsmwq encounter vfrhdbrlo20/29/2025 11:30 AM EDT Procedure Visit [facility] [address] [address] Silvino Carey DPM [address] [address] Pain due to onychomycosis of toenails of both feet (Primary Dx); Verruca plantaris; Foot pain, right; Acquired deformity of right toeNOMS CI PODIATRYComment on above:Pain due to onychomycosis of toenails of both feet (Primary Dx); Verruca plantaris; Foot pain, right; Acquired deformity of right toeStart: 02-26-2025 End: 99-40-0942Loccxog encounter fyipjspho99/24/2025 9:10 AM EDT Procedure Visit [facility] [address] [facility] [address] [place] [address] Silvino Carey, TESFAYEM [address] [address] Verruca plantaris (Primary Dx); Foot pain, right; Pain due to onychomycosis of toenails of both feet; Acquired deformity of right toe NOMS CI PODIATRYComment on above:Verruca plantaris (Primary Dx); Foot pain, right; Pain due to onychomycosis of toenails of both feet; Acquired deformity of right toeStart: 02-05-2025 End: 51-00-1012Bvxlupa encounter /03/2025 8:30 AM EDT Procedure Visit [facility] [address] [facility] [address] [place] [address] Silvino Carey DPJake [address] [facility] 5 [place] [address] NOMS PODIATRYStart: 02-04-2025 End: 56-02-5179Rwgxkhg encounter eprfqyffc92/02/2025 10:50 AM EDT Office Visit [facility] [address] [place] [address] Isai Horne MD [address] [place], [place] [phone] [facility]MStart: 02-03-2025 End: 73-50-2705Zukpcjz encounter sugrpsuwo51/01/2025 10:40 AM EDT Office Visit [facility] [address] [place] [address] Isai Horne MD [address] [facility] [address] [place], [place] [phone] ArrivedNOMS SWS DERMComment on above:ArrivedStart: 12-29-2024 End: 50-16-7981Mfenvvg encounter procedureNOMS FB ORTHOPAEDICSComment on above: Nondisplaced fracture of shaft of fifth metacarpal bone, right hand, subsequent encounter for fracture with routine healingStart: 12-16-2024 End: 32-93-4558Lsdeqnc encounter vbwttzbuy98/11/2025 9:05 AM EST Office Visit [facility] [address] [place] [address] Isai Horne MD [address] [place] [address] ArrivedNOMS SWS DERMComment on above:ArrivedStart: 12-11-2024 End: 32-62-2221Yhcxzic encounter dhzobenkq60/06/2025 3:05 PM EST Office Visit [facility] [address] [place] [address] Isai Horne MD [address] [place] [address] [facility]: 11-20-2024 End: 96-21-4949Xaqrhjj encounter procedureNOMS CI PODIATRYComment on above:Pain due to onychomycosis of toenails of both feet (Primary Dx); Verruca plantaris; Foot pain, right; Acquired deformity of right toeStart: 10-06-2024 End: 89-09-4387Wuoqvbt encounter procedureNOMS FB ORTHOPAEDICSComment on above: Nondisplaced fracture of shaft of fifth metacarpal bone, right hand, subsequent encounter for fracture with routine healingStart: 09-09-2024 End: 73-17-6946Bpsxhzj encounter procedureNOMS CI ORTHOPAEDICSComment on above: Nondisplaced fracture of shaft of fifth metacarpal bone, right hand, subsequent encounter for fracture with routine healingStart: 09-04-2024 End: 79-14-4246Ojtnjqk encounter procedureNOMS CI PODIATRYComment on above: Acquired deformity of right toe (Primary Dx); Verruca plantaris; Foot pain, right; Pain due to onychomycosis of toenails of both feetStart: 08-19-2024 End: 31-70-4850Rqinxnr encounter procedureNOMS CI ORTHOPAEDICSComment on above: Nondisplaced fracture of shaft of fifth metacarpal bone, right hand, subsequent encounter for fracture with routine healingStart: 08-14-2024 End: 33-25-6575Xzjisrv encounter procedureNOMS SWS DERMComment on above:Arrived Start: 08-13-2024 End: 56-13-9239Nxrbjkg encounter ixpjpkpqe05/09/2024 10:15 AM EDT Office Visit [facility] [address] [place] [phone] Jr. Job Aguilar, DO [address] [place] [address] ArrivedNOMS SWS ORTHOComment on above: ArrivedStart: 08-06-2024 End: 74-24-9609Likislp encounter procedureNOMS FB ORTHOPAEDICSStart: 08-06-2024 End: 67-31-7943Jomilpmmqbfq consultation with jqiagim2208/06/2024 9:30 AM EDT Telemedicine [facility] [address] [place] [phone] Jr. Job Aguilar, DO [address] [place] [address] NOMS FB ORTHOPAEDICSStart: 07-22-2024 End: 29-84-7144Bwrbcqx encounter procedureNOMS CI ORTHOPAEDICSComment on above: Nondisplaced fracture of shaft of fifth metacarpal bone, right hand, subsequent encounter for fracture with routine healingStart: 16-53-3732Gjkknjism vaccinationInfluenza Vaccine (#1)NOMS HealthcareStart: 07-03-2024 End: 31-96-8573Eovltko encounter mqpsogpzi39/29/2024 11:30 AM EDT Office Visit [facility] [address] [place] [phone] Calixto Barba, OSCAR [address] [place] [address] ArrivedNOMS FB ORTHOPAEDICSComment on above:ArrivedStart: 06-26-2024 End: 80-82-1077Pufoszj encounter liyjtndja94/22/2024 8:30 AM EDT Procedure Visit [facility] [address] [place] [phone] Silvino Carey DPM [address] [place] [address] Acquired deformity of right toe (Primary Dx); Verruca plantaris; Foot pain, right; Onychomycosis; Toe pain, bilateralNOMS PODIATRY Comment on above:Acquired deformity of right toe (Primary Dx); Verruca plantaris; Foot pain, right; Onychomycosis; Toe pain, bilateralStart: 56-57-2657Bsfkkquua vaccinationInfluenza Vaccine (#1) [facility] HealthcareStart: 36-49-7569HDcJ/Tdap/Td Vaccines (1 - Tdap)DTaP/Tdap/Td Vaccines (1 - Tdap)NOM HealthcareDermatopathology examDermatopathology exam Pathology and Cytology Timed Neoplasm of unspecified behavior of bone, soft ti ssue, and skin Release Upon Ordering for 1 Occurrences starting 12/16/2024[facility] Work Phone: comment on above:Release Upon Ordering for 1 Occurrences starting 12/16/2024Dermatopathology examDermatopathology exam Pathology and Cytology Timed Neoplasm of unspecified behavior of bone, soft ti ssue, and skin Release Upon Ordering for 1 Occurrences starting 09/01/2025[facility] Work Phone: comouox on above:Release Upon Ordering for 1 Occurrences starting 09/01/2025 Immunizations Immunization DateImmunizationNotesCare TczkvxgsUjdouarn76-47-8313SSOJ-InL-5 (COVID-19)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 Discharge Summary PERSON INFORMATION Name ALICIA BULLOCK Age 83 Years 1940 Sex FEMALE Language Syriac PCP SANTIAGO PATRICIO Marital Status Phone Med Service Med/Surg Acct# Arrival 10/11/2023 06:57:39 Visit Reason SURGERY - RIGHT KNEE SCOPE Acuity LOS 005 01:37 Address: [address] [place] [address] Comment: PROVIDER INFORMATION VITALS INFORMATION Vital Sign [...] cap(s) Oral (given by mouth) 2 times aday. triamcinolone topical (triamcinolone 0.1% topical cream) 1 [...] range between ( 1.3 and 2.9 ) Morrison Abs#: 0.8 x103/mcL -- Normal range between ( 0.0 and 0.8 ) Auto Baso %: 0.2 % -- Normal range between ( 0.2 and 2.0 ) Auto Morrison %: 9 % -- Normal range between [...] between ( 32 and (more content not included)...[facility] HospitalPxfqxybf59-51-5300 NotePROCEDURE: XR SCAPULA RT COMPARISON: None. HISTORY: Disorder of bone FINDINGS: BONES:No acute fracture or dislocation. Subchondral cystic changes of the greater tuberosity and humeral neck SOFT TISSUES:Negative. No visible soft tissue swelling. EFFUSION:None visible. OTHER: Aortic atherosclerosis IMPRESSION: No acute abnormality Electronically authenticated by: SHERYL SRINIVASAN Date: 2022-10-17 07:20[facility] HospitalBkaefxgl77-40-2995 NoteOPERATIVE NOTE OPERATION DATE: 08/16/2022 PREOPERATIVE DIAGNOSIS: Iron [...] room in good condition. CC: Santiago Patricio M.D.[facility] HospitalGgscpfkv82-69-7137 NoteCONSULTATION PROCEDURE DATE: 07/27/2022 PRE AND POSTOPERATIVE DIAGNOSIS: [...] She will be followed up in the office.[facility] HospitalZjrvgilz80-18-6515 NoteCONSULTATION CONSULTATION DATE: 07/27/2022 HISTORY OF PRESENT ILLNESS: [...] indicated. Patient agrees with the plan of care.[facility] HospitalMrfbknvp65-64-4137 NoteCONSULTATION CONSULTATION DATE: 06/01/2022 HISTORY OF PRESENT ILLNESS: [...] otherwise indicated. Patient is in agreement to this.[facility] HospitalQptqmuey83-50-5682 NoteCONSULTATION PROCEDURE DATE: 06/01/2022 PREOPERATIVE DIAGNOSIS: Bilateral lumbar [...] like pattern and patient tolerated the procedure well.[facility] Evaluation + Plan note No data available for this section General Surgery [place] Evaluation + Plan note Future Appointments Appointment Date:07/14/2024 12:45:00 PM Scheduled Provider:Lynn Pastrana MD Location:[facility] Appointment Type[facility] Follow Up [facility] Evaluation noteNo InformationNort NONO Other evaluation noteNo assessment information available [facility] Work Phone: Evaluation note* Diagnosis S/P right knee arthroscopy- Primary documented in this encounter [facility]* Diagnosis Other atopic dermatitis- Primary [...] in this encounter [facility]* Diagnosis Neoplasm of unspecified behavior of bone, soft tissue, and skin- Primary documented in this encounter [facility]* Diagnosis Nondisplaced fracture of shaft of fifth metacarpal bone, right hand, subsequent encounter for fracture with routine healing- Primary Right hand pain Pain in soft tissues of limb documented in this encounter [facility] note* Diagnosis Actinic keratosis- Primary Pain due to onychomycosis of toenails of both feet- Primary Verruca plantaris Plantar wart Foot pain, right Pain in soft tissues of limb documented in this encounter [facility]* Diagnosis Verruca plantaris- Primary Plantar wart Foot pain, right Pain in soft tissues of limb Pain due to onychomycosis of toenails of both feet Acquired deformity of right toe documented in this encounter [facility]* Diagnosis Pain due to onychomycosis of toenails of both feet- Primary Verruca plantaris Plantar wart Foot pain, right Pain in soft tissues of limb Acquired deformity of right toe documented in this encounter [facility]* Diagnosis Verruca plantaris- Primary Plantar wart Foot pain, right Pain in soft tissues of limb Acquired deformity of right toe Pain due to onychomycosis of toenails of both feet documented in this encounter [facility]* Diagnosis Seborrheic keratosis- Primary Seborrheic keratosis, inflamed Actinic keratosis Lentigines Neoplasm of unspecified behavior of bone, soft tissue, and skin documented in this encounter [facility]* Diagnosis Xerosis cutis- Primary Other specified disease of sebaceous glands Verruca plantaris Plantar wart Foot pain, right Pain in soft tissues of limb Pain due to onychomycosis of toenails of both feet Acquired deformity of right toe documented in this encounter [facility] HealthcareHistory general Narrative - Reported* Type Description Date Medical History appendectomy Medical HistoryArthritisMedical HistorycataractsMedical Historydiabetes mallitus Medical Historygall bladder diseaseMedical HistoryhypertensionMedical History thyroid diseaseSurgical HistoryappendectomySurgical Historybladder suspension, unspecifiedSurgical Historygall bladderSurgical Historyknee replacement Hospitalization Historysee surgical [employer] [facility] Other Hospital Discharge instructions No data available for this section General Surgery [place] Progress note No data available for this section General Surgery [place] Chief Complaint and Reason for Visit Chief [...] content) Team Status: Inactive Member Role Status Joni Patricio MD Primary Care Provider, Attending Edinson castanon Active Team Status: Active Member Role Status Joni Patricio MD Primary Care Provider Active Team MemberRelationshipSpecialtyStart DateEnd Santiago Patricio MD [address] [place] [address] PCP - GeneralFamily Ipkgxvrw78/1/23Team MemberRelationshipSpecialtyStart DateEnd Date Santiago Patricio MD [address] [place] [address] PCP - GeneralFami Hqgcwcgr81/1/23Team MemberRelationshipSpecialtyStart DateEnd Date Santiago Patricio MD [address] [facility] [place] [address] PCP - GeneralFamily Duckhfom63/1/23Team MemberRelationshipSpecialtyStart DateEnd Date Santiago Patricio MD [address] [facility] [place] [address] PCP - GeneralFamily Uzvinnkf02/1/23Team MemberRelationshipSpecialtyStart DateEnd Date Santiago Patricio MD [address] [facility] [place] [address] PCP - GeneralFamily Vzxgjsrg87/1/23Team MemberRelationshipSpecialtyStart DateEnd Date Santiago Patricio MD [address] [facility] [place] [address] PCP - GeneralFamily Sxucrtfu82/1/23Team MemberRelationshipSpecialtyStart DateEnd Date Santiago Patricio MD [address] [facility] [place] [address] PCP - GeneralFamily Ixcjusza21/1/23Team MemberRelationshipSpecialtyStart DateEnd Date Santiago Patricio MD [address] [facility] [place] [address] PCP - GeneralFamily Xclcedgi21/1/23Team MemberRelationshipSpecialtyStart DateEnd Date Santiago Patricio MD [address] [facility] [place] [address] [facility] - [facility] Wcqdlxui81/1/23Team MemberRelationshipSpecialtyStart DateEnd Date Santiago Patricio MD [address] [facility] [place] [address] PCP - [facility]10/05/23Team MemberRelationshipSpecialtyStart DateEnd Date Santiago Patricio MD [address] [facility] [place] [address] PCP - [facility]10/05/23Team MemberRelationshipSpecialtyStart DateEnd Date Santiago Patricio MD [address] [facility] [place] [address] PCP - [facility]10/05/23Team MemberRelationshipSpecialtyStart DateEnd Date Santiago Patricio MD [address] [place] [facility] [place] [address] PCP - [facility]10/05/23 REASON FOR VISIT (unrecogniz ed section and content) ReasonCommentsPainReasonCommentsSkin DwkdtSnsvtm-zfFtjmxzKlvlntffHpsr-mjOaxikf CommentsFollow-upReasonCommentsToenail CareNon DM NailsReasonCommentsToenail CareNon dm nail careReasonCommentsSuspicious Skin LesionReasonCommentsToenail CareReasonCommentsSkin Check Goals (unrecognized section and content) Goals may be documented in a n alternate section INFORMATION SOURCE (unrecogn ized section and content) DATE CREATED AUTHOR 11/14/2022 [facility] DATE CREATED AUTHOR AUTHOR'S ORGANIZ ATION 04/13/2023 [facility] DATE CREATED AUTHOR AUTHOR'S ORGANIZ ATION 11/02/2023 [facility] DATE CREATED AUTHOR AUTHOR'S ORGANIZ ATION 07/13/2024 [facility] DATE CREATED AUTHOR AUTHOR'S ORGANIZ ATION 09/12/2025 [facility] EPIC FOR RECORDS PERTAINING TO PATIENTS [...] BE BASED ON THE PRIMARY CLINICAL RECORDS. [facility]. provides no warranty or guarantee of the accuracy or completeness of information in this document.
== END 2025-10-05 09:13 | disposition home or self-care (01) ==
LOC: RAD 09:12
PROVIDERS: PCP Family Medicine; Visit Provider Family Medicine
DX: M81.0 Age-related osteoporosis without current pathological fracture (principal); M85.88 Other specified disorders of bone density and structure, other site
CPT/HCPCS: 77080